=== PATIENT | female | born 1955 | race Caucasian/White ===

== ENCOUNTER 2016-07-26 15:40 | Inpatient (IN) | payer OTHER ==
[~2016-07-26] VITALS: Ht 165.1 cm; Wt 83.5 kg
[~2016-07-26 15:40] MED LIST: CETI10TA84 PO; FURO-85 PO; GABA-113 PO; HYDR-3126 PO; OBET5TAB PO; ONDA4TAB46 PO; OXYC1TAB3 PO; PRD/1 PO; PROM25TA9 PO; PROP10TA7 PO; SERT50TA PO; SPIR25TA PO; SPR25 PO; TRAZ100T29 PO; URSO300C8 PO; VITA1TAB4 PO; [UNRECOGNIZED DRUG - OTHER] PO
[2016-07-26 15:44] VITALS: Ht 165.1 cm; Wt 83.5 kg
[2016-07-26 17:15] LABS: HEMATOCRIT 35.6 % (37-47); MEAN CELL VOLUME 94.2 fL (80-100); MEAN CORPUSCULAR HEMOGLOBIN 30.4 pg (25-34); MEAN CORPUSCULAR HGB CONC 32.3 g/dl (32-36); MEAN PLATELET VOLUME 10.2 fL (7.4-10.4); PLATELET COUNT 219 K/uL (130-400); RED BLOOD COUNT 3.78 M/uL (4.2-5.4); WHITE BLOOD COUNT 14.27 K/uL (4.8-10.8)
[2016-07-26 17:25] LABS: INR 1.2 (0.9-1.1); PROTHROMBIN TIME (PATIENT) 12.8 SECONDS (9.0-12.0)
[2016-07-26] MEDS ORDERED: NURSING VERBAL MED ORDER ONE (17:30)
[2016-07-26 17:32] LABS: BUN/CREATININE RATIO 19.8 (10-20); CALCIUM 8.2 mg/dl (8.5-10.1); CREATININE 1.3 mg/dl (0.60-1.20); POTASSIUM 3.3 mmol/L (3.5-5.1)
[2016-07-26 17:35] LABS: ALB/GLOB RATIO 0.6 (0.9-2)
[2016-07-26 17:37] LABS: BASO % 0.2 %; BASO ABS # 0.03 K/uL (0-0.2); COMPLETE YES; EOS % 0.9 %; IG% 0.4 %; LYMPH % 8.7 %; LYMPH ABS # 1.24 K/uL (1.2-3.4); NEUT % 79.8 %
[2016-07-26] MEDS ORDERED: OXYCODONE HCL IR 5 MG TAB (IMMEDIATE RELEASE) PO STA (17:43)
--- NOTE | 2016-07-26 17:51 | DIAGNOSTIC IMAGING REPORT ---
CT RIGHT SHOULDER NO CONTRAST CT DOSE: 272.30 mGy.cm CLINICAL HISTORY: Right proximal humeral fracture TECHNIQUE: Helical images were acquired in the transverse plane. Sagittal and coronal reformatted images were acquired COMPARISON STUDY: Outside conventional radiograph dated 07/26/2016 FINDINGS: There is moderate ascites present within the upper abdomen. There are right middle lobe and right lower lobe airspace opacities with air bronchograms, likely atelectatic. There are old healed right-sided rib fractures. There is an acute fracture of the right humeral head and neck. The head fracture extends through the greater tuberosity. The humeral neck is medially displaced x 1 cm., and anterior displaced x 6 mm. There is no dislocation. There is a small joint effusion. IMPRESSION: 1. Acute fracture of the proximal right humeral head and neck. There is a 1 cm maximal displacement. There is no dislocation. 2. Ascites 3. Right middle lobe and right lower lobe airspace opacities with air bronchograms, likely atelectatic. Electronically signed by: Yusef Sotelo M.D. 07/26/2016 5:50 PM Dictated Date/Time: 07/26/2016 5:45 PM
[2016-07-26] MEDS ORDERED: MoRPHine SULFATE 2 MG/ML CARP IV PRN (18:00)
[2016-07-26] MEDS ORDERED: ONDANSETRON INJ 2 MG/ML 2 ML VIAL IV PRN (18:00)
--- NOTE | 2016-07-26 18:10 | EMERGENCY ROOM VISIT NOTE ---
History Report prepared by Laney: Diann Acosta Under the Supervision of: Dr. Francesca Field D.O. First contact with patient: 16:06 Chief Complaint: SHOULDER PAIN Stated Complaint: BROKEN RT SHOULDER History of Present Illness The patient is a 60 year old female who presents to the Emergency Room with complaints of persistent right shoulder pain starting 0830 this morning. The patient fell after she got her foot caught in her pants. She felt fine before falling. She was not feeling woozy or close to losing consciousness. She fell onto her right side. She heard a crack. She went to see her doctor and had X- rays taken which revealed a broken right shoulder. She denies any head injury, LOC, neck pain, or arm pain. She denies any prior injuries to her right arm. The patient notes she has fallen 7 times recently after starting a new medication. Her left wrist is currently in a cast and she is going to surgery tomorrow. She has a history of cirrhosis and osteoarthritis. Source of History: patient Onset: 0830 this morning Position: shoulder (right) Quality: other (pain, broken) Timing: other (persistent) Associated Symptoms: No LOC, No neck pain Note: Pt denies head injury, arm pain. Review of Systems See HPI for pertinent positives & negatives. A total of 10 systems reviewed and were otherwise negative. Past Medical & Surgical Medical Problems: (1) Cirrhosis (2) Osteoarthritis Family History No pertinent family history stated. Social History Smoking Status: Current Every Day Smoker Occupation Status: disabled Current/Historical Medications Scheduled Cetirizine (Zyrtec), 10 MG PO PRN Furosemide (Lasix), 100 MG PO QAM Gabapentin (Neurontin), 300 MG PO TID Hydroxyzine Hcl (Atarax), 50 MG PO HS Obeticholic Acid (Ocaliva), 5 MG PO TUESDAY Prednisone (Prednisone), 1 MG PO QAM Propranolol (Inderal), 10 MG PO QAM Sertraline (Zoloft), 50 MG PO QAM Spironolactone (Aldactone), 75 MG PO QAM Trazodone Hcl (Trazodone), 100 MG PO HS Ursodiol (Ursodiol), 600 MG PO BID Scheduled PRN Ondansetron Hcl (Zofran), 8 MG PO SL PRN for Nausea Oxycodone Ir (Roxicodone Ir), 5 MG PO Q4H PRN for Severe Pain Promethazine Hcl (Phenergan), 25 MG PO Q4H PRN for Nausea Allergies Coded Allergies: Budesonide (Verified Allergy, Intermediate, FACIAL SWELLING, 07/26/16) PER RECORDS Mycophenolate (Verified Allergy, Intermediate, FACIAL SWELLING, 07/26/16) PER RECORDS Latex (Verified Allergy, Mild, RASH-CONTACT, 07/26/16) Acetaminophen (Unverified Adverse Reaction, Unknown, "LIVER DISEASE", 07/26) PER RECORDS Pseudoephedrine (Verified Adverse Reaction, Unknown, TACHYCARDIA, 07/26/16) PER RECORDS Physical Exam Vital Signs Date Time Temp Pulse Resp B/P (MAP) Pulse Ox O2 Delivery O2 Flow Rate FiO2 07/26/16 17:24 66 16 112/54 90 Room Air 07/26/16 15:44 36.7 60 20 106/68 93 Room Air Physical Exam GENERAL: alert, well appearing, well nourished, no distress, non-toxic EYE EXAM: mild scleral icterus, PERRL and EOM's grossly intact OROPHARYNX: no exudate, no erythema, lips, buccal mucosa, and tongue normal and mucous membranes are moist NECK: supple, no nuchal rigidity, no adenopathy, non-tender LUNGS: Lung sounds slightly decreased, no wheezes, rhonchi, or rales. Normal chest wall mechanics HEART: no murmurs, S1 normal and S2 normal ABDOMEN: abdomen mildly distended, non-tender, normo-active bowel sounds, no masses, no rebound or guarding. BACK: Back is symmetrical on inspection and there is no deformity, no midline tenderness, no CVA tenderness. SKIN: no rashes and no bruising UPPER EXTREMITIES: Left arm in short arm case, RUE in sling. Normal sensation, normal capillary refill in bilateral upper extremities. LOWER EXTREMITIES: No pitting edema. NEURO EXAM: Normal sensorium, cranial nerves II-XII grossly intact, normal speech, no gross weakness of arms, no gross weakness of legs. Medical Decision & Procedures ER Provider Diagnostic Interpretation: Radiology results have been interpreted by the radiologist and reviewed by me. CT RIGHT SHOULDER NO CONTRAST CT DOSE: 272.30 mGy.cm CLINICAL HISTORY: Right proximal humeral fracture TECHNIQUE: Helical images were acquired in the transverse plane. Sagittal and coronal reformatted images were acquired COMPARISON STUDY: Outside conventional radiograph dated 07/26/2016 FINDINGS: There is moderate ascites present within the upper abdomen. There are right middle lobe and right lower lobe airspace opacities with air bronchograms, likely atelectatic. There are old healed right-sided rib fractures. There is an acute fracture of the right humeral head and neck. The head fracture extends through the greater tuberosity. The humeral neck is medially displaced x 1 cm., and anterior displaced x 6 mm. There is no dislocation. There is a small joint effusion. IMPRESSION: 1. Acute fracture of the proximal right humeral head and neck. There is a 1 cm maximal displacement. There is no dislocation. 2. Ascites 3. Right middle lobe and right lower lobe airspace opacities with air bronchograms, likely atelectatic. Electronically signed by: Yusef Sotelo M.D. 07/26/2016 5:50 PM Dictated Date/Time: 07/26/2016 5:45 PM Laboratory Results Test 07/26/16 17:00 Prothrombin Time 12.8 SECONDS (9.0-12.0) Prothromb Time International Ratio 1.2 (0.9-1.1) Total Bilirubin 3.4 mg/dl (0.2-1) Aspartate Amino Transf (AST/SGOT) 53 U/L (15-37) Alanine Aminotransferase (ALT/SGPT) 29 U/L (12-78) Alkaline Phosphatase 393 U/L (45-117) Total Protein 5.9 gm/dl (6.4-8.2) Albumin 2.2 gm/dl (3.4-5.0) Globulin 3.7 gm/dl (2.5-4.0) Albumin/Globulin Ratio 0.6 (0.9-2) Lipase 125 U/L (73-393) Laboratory results per my review. Medications Administered ECG Indication: other (fall) Rate (beats per minute): 66 Rhythm: sinus rhythm Findings: Q waves (V1, V2), no acute ischemic change, other (normal axis, normal intervals, low voltage throughout) ED Course 1608: The patient was evaluated in room C5. A complete history and physical exam was performed. 1709: I discussed the patient's case with Dr. Fontenot, [facility]. He requests a CT of the right humerus. He will evaluate the patient for further management. 1743: Oxycodone HCl 5 mg PO. 1800: Upon reevaluation, the patient is doing well. I discussed the findings and the treatment plan with the patient. She expresses agreement and understanding. She will be evaluated for further management. Medical Decision Differential diagnosis: Etiologies such as fracture, dislocation, neurovascular compromise, compartment syndrome, soft tissue injury, as well as others were entertained. Medication Reconciliation: I attest that I have personally reviewed the patient' s current medication list. Blood pressure screening: Patient was found to have normal blood pressure on screening and does not require follow-up. Pt with known left wrist fx scheduled for surgery tomorrow when she fell again suffering a right humerus fx noted on outpt xray after presenting to her PCP. Pt now with significant difficulty performing ADL's and limited mobility. Pt with underlying other chronic comorbidities. Ortho to admit primarily, requested CT right humerus, will consult medicine for additional help in mgmt of comorbidities. Pt denies any other pain or trauma, doubt additional occult traumatic injury. Labs stable compared to prior. Consults Time Called: 1630 Consulting Physician: Dr. Fontenot, [facility] Returned Call: 1709 I discussed the patient's case with him. He requests a CT of the right humerus. He will evaluate the patient for further management. Impression Primary Impression: Displaced fracture of proximal end of right humerus Additional Impression: Fall Scribe Attestation The scribe's documentation has been prepared under my direction and personally reviewed by me in its entirety. I confirm that the note above accurately reflects all work, treatment, procedures, and medical decision making performed by me. Departure Information Dispostion Being Evaluated By Surgeon Referrals Seth Witt D.O. (PCP) Patient Instructions My [facility] Problem Qualifiers Additional Impression: Fall Encounter type: initial encounter Qualified Codes: W19.XXXA - Unspecified fall, initial encounter
[2016-07-26 18:30] VITALS: BP 119/73; PULSE 67; TEMP 37; O2SAT 90
[2016-07-26] MEDS ORDERED: POTASSIUM CHLORIDE 20 MEQ TABCR PO STA (19:22)
[2016-07-26] MEDS: URSODIOL 300 MG CAP PO SCH (19:53)
[2016-07-26] MEDS ORDERED: ALBUT/IPRATROP 3MG/0.5MG NEB 3 ML VIAL INH ONE (20:30)
[2016-07-26] MEDS ORDERED: ALBUT/IPRATROP 3MG/0.5MG NEB 3 ML VIAL INH PRN (20:30)
[2016-07-26] MEDS ORDERED: hydrOXYzine HCL 25 MG TAB PO SCH (21:00)
[2016-07-26] MEDS ORDERED: hydrOXYzine HCL 25 MG TAB PO PRN (21:00)
[2016-07-26 21:03] VITALS: PULSE 12; O2SAT 96
[2016-07-26] MEDS: GUAIFENESIN 600 MG TABCR PO SCH (21:16)
[2016-07-26] MEDS: GABAPENTIN 300 MG CAP PO SCH (21:16)
[2016-07-26] MEDS: TRAZODONE HCL 100 MG TAB PO SCH (21:16)
[2016-07-26 22:55] VITALS: BP 101/56; PULSE 77; TEMP 36.9; O2SAT 89
[2016-07-26 22:59] VITALS: O2SAT 94
[2016-07-26] MEDS ORDERED: MAGNESIUM SULFATE 1GM / D5W 1 GM in PREMIXED IN D5W 100 ML IV ONE (23:00)
[2016-07-27] VITALS (11 sets, daily range): BP systolic 95–121; BP diastolic 64–95; PULSE 68–78; TEMP 36.8–37.1; O2SAT 92–97
[2016-07-27] MEDS: OXYCODONE HCL IR 5 MG TAB (IMMEDIATE RELEASE) PO PRN ×3 (05:05→23:39)
[2016-07-27] MEDS ORDERED: CEFAZOLIN 2000 MG/60 ML D5W IV SCH (06:00)
[2016-07-27 06:04] LABS: BASO % 0.2 %; BASO ABS # 0.03 K/uL (0-0.2); COMPLETE YES; EOS % 1.3 %; HEMATOCRIT 35.8 % (37-47); IG% 0.7 %; LYMPH % 9.5 %; LYMPH ABS # 1.41 K/uL (1.2-3.4); MEAN CORPUSCULAR HEMOGLOBIN 29.8 pg (25-34); MEAN PLATELET VOLUME 10.3 fL (7.4-10.4); MONO % 11.1 %; NEUT % 77.2 %; PLATELET COUNT 220 K/uL (130-400); RED BLOOD COUNT 3.73 M/uL (4.2-5.4); WHITE BLOOD COUNT 14.84 K/uL (4.8-10.8)
--- NOTE | 2016-07-27 06:20 | HISTORY & PHYSICAL EXAMINATION ---
DATE OF ADMISSION: PRIMARY CARE DOCTOR: Dr. Witt. Patient seen at the request of Dr. Fontenot for preop eval and medical management. Patient currently admitted under Orthopedic service for right humeral fracture as well as left radial fracture secondary to mechanical falls. HISTORY OF PRESENT ILLNESS: History is obtained from the patient and records. 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 Px was found to have a L radial fracture. Elective surgery scheduled by [facility]. Cough productive of clear sputum the last few days. No cp. Initially w/ sob sx. Denies aspiration. Outpx CXR showed small right pleural effusion with atelectasis. Old L sided rib fxs (07/22) Cough improving. Today, the patient had a mechanical fall at home causing achy right shoulder pain. Outpx Xrays showed R humeral fx. Px sent to the to the ER. MEDICAL HISTORY: As above. 2D echo from December 2015 showed no pulmonary hypertension, EF 55%, mo pericardial effusion. Normal myocardial perfusion stress imaging (12/2015) noted in preparation for possible liver transplant. Patient is currently not on the liver transplant list because of a low MELD score as per px. SURGERIES: Tonsillectomy, tubal ligation, gynecologic procedures, left shoulder surgery, cataract surgery. HOME MEDICATIONS: Include, Zyrtec, Lasix, Neurontin, Atarax, Zofran, oxycodone, prednisone, Phenergan and Inderal, Zoloft, Aldactone, trazodone, ursodiol. ALLERGIES: TYLENOL, PSEUDOEPHEDRINE, BUDESONIDE, LATEX. FAMILY HISTORY: Cirrhosis. PERSONAL AND SOCIAL HISTORY: Nonsmoker, no chronic intake of alcoholic beverages. 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 REVIEW OF SYSTEMS: As per HPI, all other ROS negative. FUNCTIONAL HISTORY: Able to do house work w/ chest pain, shortness of breath. PHYSICAL EXAMINATION: VITAL SIGNS: Blood pressure noted to be 112/60, pulse rate 90, RR 16, temperature 36.7, sats 96 on room air. GENERAL: Noted to be slightly uncomfortable, no respiratory distress. SKIN: Pallor. HEENT: Pale palpebral conjunctivae. Dry mucosa. NECK: Short neck. LUNGS: Decreased breath sounds. HEART: Regular rate and rhythm. ABDOMEN: Some distention, no tenderness. EXTREMITIES: No edema. Sling on the right upper extremity and wrap on the left forearm. NEUROLOGIC: No gross focality. LABORATORY DATA: Hemoglobin was noted to be 11.5, hematocrit 35.6, white blood cell 14, platelets 219. Sodium 140, potassium 3.8, chloride 107, CO2 28, BUN 26, creatinine 1.3, glucose 90, mag 1.7. AST 50, ALT 29 IMAGING DATA: Chest x-ray as per my interpretation, elevated right hemidiaphragm, atelectasis. EKG as per my interpretation : rate 65, normal sinus rhythm, diffuse T-wave flattening. Low voltage, PRWP, PVCs ASSESSMENT : 1. Right humeral fracture, left radial fracture secondary to recurrent mechanical falls ambulatory dysfunction. 2. History of primary biliary cirrhosis. hx portal HTN on BB no overt decompensation. px no longer a transplant candidate 3. Chronic constrictive pericarditis, stable on chronic steroid therapy. EF=55-60%, no pericardial effusion (TTE 2016) 4. leukocytosis poss 2 to chronic steroid tx 5. Hypokalemia secondary to diuretic therapy. 6. CRI, crea at baseline 7. Chronic anemia 2 to CKD, hemoglobin at baseline. 8. viral bronchitis illness over the weekend improving as per px RECOMMENDATIONS: No medical contraindication to contemplated procedure. Px is low to moderate risk for cardiac complications for contemplated Ortho procedure. Replace electrolytes. Continue home diuretic therapy postop. Conservative management for viral bronchitis PT, OT eval. Fall precautions DVT prophylaxis, SCDs as per Orthopedic orders on admission. Thank you very much for your consultation. Dr. Manriquez will follow the patient's progress. [place]
[2016-07-27 06:37] LABS: BUN/CREATININE RATIO 21.5 (10-20); CALCIUM 8.4 mg/dl (8.5-10.1); CREATININE 1.3 mg/dl (0.60-1.20); MAGNESIUM 2.1 mg/dl (1.8-2.4); POTASSIUM 3.7 mmol/L (3.5-5.1)
--- NOTE | 2016-07-27 06:40 | DIAGNOSTIC IMAGING REPORT ---
CHEST ONE VIEW PORTABLE CLINICAL HISTORY: low o2 hypoxia COMPARISON STUDY: 07/26/2016 FINDINGS: Mild right basilar atelectatic change. Potential developing infiltrate left base. Right shoulder fracture produces described. Postoperative changes left shoulder. IMPRESSION: Developing parenchymal infiltrate left base. Mild right basilar atelectasis Electronically signed by: Sandeep Campbell M.D. 07/27/2016 6:38 AM Dictated Date/Time: 07/27/2016 6:38 AM
[2016-07-27] MEDS: PROPRANOLOL HCL 10 MG TAB PO SCH (07:10)
[2016-07-27] MEDS ORDERED: HYDROCORTISONE IV 50 MG in SYRINGE 0 ML IV STA (08:15)
[2016-07-27] MEDS: URSODIOL 300 MG CAP PO SCH ×2 (08:30→17:31)
--- NOTE | 2016-07-27 08:33 | Progress Note ---
Medicine Progress Note Date & Time of Visit: Jul 27, 2016 at 08:23. Subjective patient seen sitting up in bed, at bedside alert, appears comfortable overall has intermittent pain on the right shoulder no cough, shortness of breath no chest pain, dizziness, nausea denies other symptoms very eager to have surgery done as soon as possible Objective Last 8 Hrs Date Time Temp Pulse Resp B/P (MAP) Pulse Ox O2 Delivery O2 Flow Rate FiO2 07/27/16 07:47 93 Nasal Cannula 2.0 07/27/16 07:36 37.1 74 18 98/72 (81) 93 Nasal Cannula 2.0 07/27/16 07:09 36.9 71 18 95/64 (74) 93 Nasal Cannula 2.0 07/27/16 07:05 Room Air Physical Exam: General- oriented x 3 , not in distress, speaks in sentences with no effort Head- atraumatic Eyes- EOMI, anicteric ENT- oropharynx clear Neck- supple, no JVD Lungs- mild rales left base, none on the right, no wheezing Heart- regular rhythm; no murmur, normal rate Abdomen- normal bowel sounds, soft, nontender Extremities- (+) right arm with sling in place, can move all fingers; no pretibial edema, no calf tenderness Neuro- alert, oriented x 3; no gross focal deficits Skin- warm & dry Laboratory Results: Last 24 Hours Test 07/26/16 17:00 07/27/16 05:50 White Blood Count 14.27 K/uL 14.84 K/uL Red Blood Count 3.78 M/uL 3.73 M/uL Hemoglobin 11.5 g/dL 11.1 g/dL Hematocrit 35.6 % 35.8 % Mean Corpuscular Volume 94.2 fL 96.0 fL Mean Corpuscular Hemoglobin 30.4 pg 29.8 pg Mean Corpuscular Hemoglobin Concent 32.3 g/dl 31.0 g/dl Platelet Count 219 K/uL 220 K/uL Mean Platelet Volume 10.2 fL 10.3 fL Neutrophils (%) (Auto) 79.8 % 77.2 % Lymphocytes (%) (Auto) 8.7 % 9.5 % Monocytes (%) (Auto) 10.0 % 11.1 % Eosinophils (%) (Auto) 0.9 % 1.3 % Basophils (%) (Auto) 0.2 % 0.2 % Neutrophils # (Auto) 11.39 K/uL 11.47 K/uL Lymphocytes # (Auto) 1.24 K/uL 1.41 K/uL Monocytes # (Auto) 1.43 K/uL 1.64 K/uL Eosinophils # (Auto) 0.13 K/uL 0.19 K/uL Basophils # (Auto) 0.03 K/uL 0.03 K/uL RDW Standard Deviation 53.3 fL 54.6 fL RDW Coefficient of Variation 15.5 % 15.6 % Immature Granulocyte % (Auto) 0.4 % 0.7 % Immature Granulocyte # (Auto) 0.05 K/uL 0.10 K/uL Prothrombin Time 12.8 SECONDS Prothromb Time International Ratio 1.2 Sodium Level 142 mmol/L 142 mmol/L Potassium Level 3.3 mmol/L 3.7 mmol/L Chloride Level 107 mmol/L 108 mmol/L Carbon Dioxide Level 28 mmol/L 25 mmol/L Anion Gap 7.0 mmol/L 9.0 mmol/L Blood Urea Nitrogen 26 mg/dl 28 mg/dl Creatinine 1.30 mg/dl 1.30 mg/dl Est Creatinine Clear Calc Drug Dose 49.3 ml/min 21.8 ml/min Estimated GFR () 52.4 52.4 Estimated GFR (Non- 45.2 45.2 BUN/Creatinine Ratio 19.8 21.5 Random Glucose 90 mg/dl 97 mg/dl Calcium Level 8.2 mg/dl 8.4 mg/dl Magnesium Level 1.7 mg/dl 2.1 mg/dl Total Bilirubin 3.4 mg/dl Aspartate Amino Transf (AST/SGOT) 53 U/L Alanine Aminotransferase (ALT/SGPT) 29 U/L Alkaline Phosphatase 393 U/L Total Protein 5.9 gm/dl Albumin 2.2 gm/dl Globulin 3.7 gm/dl Albumin/Globulin Ratio 0.6 Lipase 125 U/L Assessment & Plan 60 year old female with history of Primary Biliary Cirrhosis, Chronic Constrictive Pericarditis, CKD 3 presenting with right shoulder fracture. 1. Right humeral fracture, left radial fracture secondary to recurrent mechanical fall ambulatory dysfunction. - for planned orthopedic surgery today - patient on chronic prednisone therapy for at least 5 years as per patient will add Hydrocortisone 50mg IV this morning, then 25mg IV q8h x 24 hours, then resume usual Prednisone 1mg daily - otherwise, no medical contraindication for ortho surgery today 2. History of primary biliary cirrhosis px no longer a transplant candidate - compensated from liver standpoint - on Ocaliva every Tuesday - hold Lasix + Aldactone for now to prevent dehydration 3. Chronic constrictive pericarditis, stable on chronic steroid therapy. EF=55-60%, no pericardial effusion (TTE 2016) - management of steroids as per #1 4. leukocytosis poss 2 to chronic steroid tx -afebrile patient states cough has improved significantly -cxr noted -on Cefazolin encouraged Incentive Spirometry - monitor 5. Hypokalemia secondary to diuretic therapy. - resolved - hold diuretics for now 6. CRI, crea at baseline 7. Chronic anemia 2 to CKD, hemoglobin at baseline. 8. Hypertension - on Propranolol Thank you for this consultation. We will follow the patient with you during their hospital stay. You can reach a member of the [facility] Hospitalist Team 30/08 via pager @ . Current Inpatient Medications: Current Inpatient Medications Medications (Trade) Dose Ordered Sig/Michael Route Start Time Stop Time Status Last Admin Dose Admin Oxycodone HCl (Roxicodone Immediate Rel Tab) `1-2 tabs for pain 1 tab ... Q4H PRN PO 07/26/16 18:00 08/09/16 17:59 07/27/16 05:05 5 MG Morphine Sulfate (MoRPHine SULFATE INJ) 2 mg Q2H PRN IV 07/26/16 18:00 08/09/16 17:59 Ondansetron HCl (Zofran Inj) 4 mg Q8H PRN IV 07/26/16 18:00 08/25/16 17:59 Cefazolin Sodium 60 ml @ 100 mls/hr PREOP IV 07/27/16 06:00 07/27/16 18:00 Prednisone (PredniSONE TAB) 1 mg QAM PO 07/27/16 09:00 08/26/16 08:59 Sertraline HCl (Zoloft Tab) 50 mg QAM PO 07/27/16 09:00 08/26/16 08:59 Trazodone HCl (Desyrel Tab) 100 mg HS PO 07/26/16 21:00 08/25/16 20:59 07/26/16 21:16 100 MG Gabapentin (Neurontin Cap) 300 mg TID PO 07/26/16 21:00 08/25/16 20:59 07/26/16 21:16 300 MG Ursodiol (Actigall Cap) 600 mg BIDM PO 07/26/16 19:02 08/25/16 19:01 07/26/16 19:53 600 MG Propranolol HCl (Inderal Tab) 10 mg QAM PO 07/27/16 09:00 08/26/16 08:59 Cetirizine HCl (zyrTEC TAB) 10 mg DAILY PRN PO 07/26/16 19:15 08/25/16 19:14 Miscellaneous Information (Order Awaiting Action) 1 ea QS N/A 07/27/16 00:00 08/26/16 00:00 Hydroxyzine HCl (Vistaril Tab) 50 mg HS PRN PO 07/26/16 21:00 08/25/16 20:59 Albuterol/ Ipratropium (Duoneb) 3 ml Q2H PRN INH 07/26/16 20:30 08/25/16 20:29 Guaifenesin (Mucinex Contr Rel Tab) 600 mg Q12 PO 07/26/16 21:00 08/25/16 20:59 07/26/16 21:16 600 MG Hydrocortisone Sodium Succinate 25 mg/Syringe 0.5 ml @ 4 mls/min Q8H IV 07/27/16 16:00 07/28/16 08:01
[2016-07-27] MEDS ORDERED: D5NSS + 20MEQ KCL 1,000 ML IV SCH (09:00)
[2016-07-27] MEDS ORDERED: FUROSEMIDE PO SCH ×2 (09:00)
[2016-07-27] MEDS ORDERED: SPIRONOLACTONE 25 MG TAB PO SCH (09:00)
[2016-07-27] MEDS: LEVALBUTEROL 1.25MG/0.5ML NEB INH SCH ×3 (10:07→19:13)
--- NOTE | 2016-07-27 10:48 | DIAGNOSTIC IMAGING REPORT ---
CHEST CT WITHOUT CONTRAST CT DOSE: 370.80 mGy.cm HISTORY: Dyspnea r/o pneumonia TECHNIQUE: Multiaxial CT images of the chest were performed without contrast. COMPARISON: None. FINDINGS: Mild bibasilar atelectatic and/or infiltrative change bilaterally. Mid and upper lungs are considered clear. No significant hilar or mediastinal adenopathy. Mild mild perihepatic ascites. Shunt in position. IMPRESSION: Mild bibasilar infiltrative and/or atelectatic change. Small amount of perihepatic ascites. Electronically signed by: Sandeep Campbell M.D. 07/27/2016 10:47 AM Dictated Date/Time: 07/27/2016 10:45 AM
[2016-07-27] MEDS: GABAPENTIN 300 MG CAP PO SCH ×3 (10:56→21:24)
[2016-07-27] MEDS: GUAIFENESIN 600 MG TABCR PO SCH ×2 (10:57→21:25)
[2016-07-27] MEDS: SERTRALINE HCL 50 MG TAB PO SCH (10:57)
[2016-07-27] MEDS: LEVOFLOXACIN / D5W 750 MG in PREMIXED IN D5W 150 ML IV SCH (10:59)
--- NOTE | 2016-07-27 12:14 | History and Physical ---
History & Physical Date of Service Jul 27, 2016. History & Physical CHIEF COMPLAINT: left wrist fracture and right proximal humerus fracture HISTORY OF PRESENT ILLNESS: Pat is a 60 year old female who sustained a left distal radius fracture approximately 2 weeks ago while at a yard sale, slipped on a wet tarp. was treated conservatively at first however fracture displaced and was determined her best option was to perform ORIF. She was scheduled to have her surgery today, however yesterday while at home caught her toe in her living room and went down onto her right arm, initially went to PCP office and xrays demonstrated a right proximal humerus fracture. she was then referred to the emergency room and admitted for planned ORIF today by Dr Fontenot. Her Past medical history is significant for primary biliary cirrhosis, chronic constrictive pericarditis, hypertension, chronic anemia PAST MEDICAL HISTORY: As mentioned above in HPI SURGERIES: Tonsillectomy, tubal ligation, left shoulder surgery, cataract surgery. HOME MEDICATIONS: Include, Zyrtec, Lasix, Neurontin, Atarax, Zofran, oxycodone, prednisone, Phenergan and Inderal, Zoloft, Aldactone, trazodone, ursodiol. ALLERGIES: TYLENOL, PSEUDOEPHEDRINE, BUDESONIDE, LATEX. SOCIAL HISTORY: Nonsmoker, no chronic intake of alcoholic beverages. Retired REVIEW OF SYSTEMS: As per HPI, others ROS negative. PHYSICAL EXAMINATION: Last Vital Signs Documentation Date Time Temp Pulse Resp B/P (MAP) Pulse Ox O2 Delivery O2 Flow Rate FiO2 07/27/16 10:07 72 16 92 Nasal Cannula 2.0 07/27/16 07:36 37.1 98/72 (81) GENERAL: alert and oriented x 3, No acute distress HEENT: normocephalic atraumatic LUNGS: Decreased breath sounds. HEART: Regular rate and rhythm, resting pulse 72 beats per minute ABDOMEN: Soft non-tender. EXTREMITIES: Right Upper extremity, tenderness anterior shoulder joint extending into the proximal humerus region. ecchymosis present. NVDI, radial median, ulnar nerves intact. left extremity currently in a short arm cast, NVDI. no signs of skin break down or irritation. Test 07/26/16 17:00 07/27/16 05:50 White Blood Count 14.27 K/uL 14.84 K/uL Red Blood Count 3.78 M/uL 3.73 M/uL Hemoglobin 11.5 g/dL 11.1 g/dL Hematocrit 35.6 % 35.8 % Mean Corpuscular Volume 94.2 fL 96.0 fL Mean Corpuscular Hemoglobin 30.4 pg 29.8 pg Mean Corpuscular Hemoglobin Concent 32.3 g/dl 31.0 g/dl Platelet Count 219 K/uL 220 K/uL Mean Platelet Volume 10.2 fL 10.3 fL Neutrophils (%) (Auto) 79.8 % 77.2 % Lymphocytes (%) (Auto) 8.7 % 9.5 % Monocytes (%) (Auto) 10.0 % 11.1 % Eosinophils (%) (Auto) 0.9 % 1.3 % Basophils (%) (Auto) 0.2 % 0.2 % Neutrophils # (Auto) 11.39 K/uL 11.47 K/uL Lymphocytes # (Auto) 1.24 K/uL 1.41 K/uL Monocytes # (Auto) 1.43 K/uL 1.64 K/uL Eosinophils # (Auto) 0.13 K/uL 0.19 K/uL Basophils # (Auto) 0.03 K/uL 0.03 K/uL Prothromb Time International Ratio 1.2 Prothrombin Time 12.[address]: Acute fracture of the proximal right humeral head and neck. There is a 1 cm maximal displacement. There is no dislocation. ASSESSMENT : 1. Right proximal humerus fracture with 1cm displacement, left radial fracture - will require ORIF of both humerus and wrist fractures today by dr Fontenot. will keep NPO for surgery on 07/27/16. Patient has been medically cleared for proposed surgery.
[2016-07-27] MEDS ORDERED: HYDROCORTISONE IV 50 MG in SYRINGE 0 ML IV SCH (15:00)
[2016-07-27] MEDS ORDERED: PERFLUTREN LIPID MICROSPHERE (DEFINITY) IV ONE (15:23)
--- NOTE | 2016-07-27 15:46 | ECHOCARDIOGRAM REPORT ---
*NOTICE TO RECEIVING LIBERTARIAN AGENCY This information is strictly Confidential and protected under [place] law. [place] law prohibits you from making any further disclosure of this information unless further disclosure is expressly permitted by the written consent of the person to whom it pertains or is authorized by law. A general authorization for the release of medical or other information is not sufficient for this purpose. Hospital accepts no responsibility if the information is made available to any other person, INCLUDING THE PATIENT. Interpretation Summary * Name: SANTA FARNSWORTH Study Date: 07/27/2016 02:25 PM BP: 98/72 mmHg * Patient Location: C.MSN\S\N377\S\2 HR: 72 * : 1955 (M/d/yyyy) Gender: Female Height: 65 in * Age: 60 yrs Ethnicity: CA Weight: 174 lb * Ordering Physician: Ayden Cummings * Referring Physician: ADELAIDA * Performed By: Saloni Hameed RDCS * * Reason For Study: CHF, RULE OUT R TO L SHUNT * BSA: 1.9 m2 * -- Conclusions -- * The left ventricle is normal in size. * There is normal left ventricular wall thickness. * The left ventricular wall motion is normal. * Left ventricular systolic function is normal. * Ejection Fraction = 60-65%. * The left atrium is mildly dilated. * There is mild tricuspid regurgitation. * Doppler findings do not suggest pulmonary hypertension. * The interatrial septum is intact with no evidence for an atrial septal defect. * Injection of contrast documented no interatrial shunt. Procedure Details * A saline contrast injection was performed to assess for cardiac shunting. * The injection was performed through an intravenous line in the right arm. * The attending nurse who injected the saline contrast was CAMILLE COMBS RN. * A total of 20 cc of agitated saline was given. * A contrast injection of Definity was performed to improve assessment of LV function. * Contrast was injected into an intravenous site in the right arm. * One vial of Definity ultrasound contrast was diluted in normal saline to a total volume of 10 ml. A total of '2' ml of solution was administered during imaging. * Lot # [id number] of Definity utilized for procedure. * Expiration date AUG 24. * The attending nurse who injected the contrast agent was CAMILLE COMBS RN. * A complete two-dimensional transthoracic echocardiogram was performed (2D, M-mode, Doppler and color flow Doppler). Left Ventricle * The left ventricle is normal in size. * There is normal left ventricular wall thickness. * Ejection Fraction = 60-65%. * Left ventricular systolic function is normal. * The left ventricular wall motion is normal. Right Ventricle * The right ventricle is normal in size and function. Atria * The left atrium is mildly dilated. * Right atrial size is normal. * The interatrial septum is intact with no evidence for an atrial septal defect. * Injection of contrast documented no interatrial shunt. Mitral Valve * The mitral valve anatomy is normal. * There is no mitral valve stenosis. * There is trace mitral regurgitation. Tricuspid Valve * The tricuspid valve anatomy is normal. * There is no tricuspid stenosis. * There is mild tricuspid regurgitation. * Doppler findings do not suggest pulmonary hypertension. Aortic Valve * The aortic valve is trileaflet. * No hemodynamically significant valvular aortic stenosis. * No aortic regurgitation is present. Pulmonic Valve * The pulmonic valve is not well visualized. Great Vessels * The aortic root is normal size. Pericardium/Pleural * There is no pericardial effusion. MMode 2D Measurements and Calculations IVSd 0.90 cm IVSs 1.4 cm LVIDd 5.4 cm LVIDs 3.5 cm LVPWd 0.81 cm LVPWs 1.5 cm IVS/LVPW 1.1 FS 36.2 % EDV(Teich) 143.1 ml ESV(Teich) 49.6 ml EF(Teich) 65.4 % EDV(cubed) 160.1 ml ESV(cubed) 41.5 ml EF(cubed) 74.1 % % IVS thick 58.8 % % LVPW thick 82.7 % LV mass(C)d 170.1 grams LV mass(C)dI 91.2 grams/m\S\2 LV mass(C)s 181.1 grams LV mass(C)sI 97.1 grams/m\S\2 SV(Teich) 93.5 ml SI(Teich) 50.2 ml/m\S\2 SV(cubed) 118.6 ml SI(cubed) 63.6 ml/m\S\2 Ao root diam 3.0 cm Ao root area 7.2 cm\S\2 LA dimension 3.9 cm LA/Ao 1.3 Doppler Measurements and Calculations MV E max shorty 85.4 cm/sec MV A max shorty 68.4 cm/sec MV E/A 1.2 MV dec time 0.24 sec Ao V2 max 154.4 cm/sec Ao max PG 9.5 mmHg Ao max PG (full) 3.4 mmHg LV V1 max PG 6.1 mmHg LV V1 max 123.6 cm/sec TR max shorty 258.2 cm/sec
[2016-07-27] MEDS ORDERED: HYDROCORTISONE IV 25 MG in SYRINGE 0 ML IV SCH (16:00)
--- NOTE | 2016-07-27 16:17 | Anesthesiology Progress Note ---
Anesthesia Progress Note Date of Service Jul 27, 2016. Progress Notes The patient is a 60 y/o female with a h/o primary biliary cirrhosis s/p TIPS with portal hypertension, chronic constrictive pericarditis treated with steroids, CKD, Anemia and recurrent pleural effusions scheduled for R proximal humerus and L wrist distal radius fx ORIF with Dr. Fontenot. The patient's fractures were the result of a mechanical fall. She did not hit her head. The patient states that she has had bronchitis that started three weeks ago. She was treated with 2 weeks of antibiotic but continues to have a cough. During her admission she has been saturating 93% on 2L nc. She was using 02 at home in the past intermittently when she developed pleural effusions but had not been requiring it recently. She remains afebrile and denies any shortness of breath with ambulation. On exam she has had rales in her left lung base and wheezing for which she is receiving nebulizer treatments. On my exam, her lungs were clear but diminished at the bases. A CXR was done and showed developing infiltrate in the L base and mild R basilar atelectasis. A CT of the chest was done today and showed mild bibasilar infiltrative and or atelectatic change. I discussed the patient with Dr. Manriquez who has ordered a pulmonary consult to further evaluate the patient's hypoxia and see if the patient's pulmonary status can be optimized prior to surgery. Regarding the patient's cardiac status, she had an echo today showing EF 60- 65% and preserved LV function. She also had a stress test 12/2015 that was negative for ischemia. EKG from this admission showed NSR with PACs, HR 71 . Septal infarct. Prior to admission the patient was able to climb stairs without chests pain or shortness of breath. The patient is tentatively scheduled for surgery tomorrow. Awaiting pulmonary recommendations. The patient has been consented for GA and regional anesthesia.
--- NOTE | 2016-07-27 16:18 | Pulmonary Consultation ---
History General Date of Service: Jul 27, 2016. Stated Complaint: Right Proximal Humerous Fx, Left Distal Radial Fx HPI The patient is a 60 year old female who presents to [facility] with complaints of Right Proximal Humerous Fx, Left Distal Radial Fx. The patient's primary care provider is Seth Witt D.O.. Patient carries a history of constrictive pericarditis, on low dose Prednisone, primary biliary cirrhosis, prior left humeral fracture The patient was being prepared for left radial fracture repair when she fell and suffered a right humeral fracture. Pulmonary called because she has low O2 sat in low 90s/high 80s. Patient states that she had a cold 2 weeks ago and was left with a significant cough, mainly dry, with some clear sputum. Experiences shortness of breath with exertion. Denies chest pain, LE swelling, fever or chills. She sleeps upright with two pillows, cannot elaborate why. She was found 4 days ago to have low O2 sat in the office. She states that normally her O2 sat at home is 92%. She was on home O2 therapy 5 years ago post pericarditis but was weaned off Review of Systems Constitutional: denies: chills, fever, malaise ENT: reports: nasal congestion Cardiovascular: denies: no symptoms Respiratory: reports: cough, shortness of breath, [place] Gastrointestinal: reports: no symptoms Genitourinary - Female: reports: no symptoms Musculoskeletal: reports: as stated in HPI Neurologic: reports: no symptoms Psychiatric: reports: no symptoms Past Medical History Past Medical History: other (Primary biliary cirrhosis s/p TIPS, constrictive pericarditis, anemia, CKD) Past Surgical History: orthopedic surgery (left shoulder repair), tonsillectomy , tubal ligation, other (cataract) Social History Hx Tobacco Use In Past Year?: No Smoking Status: Never Smoker Occupational Status: disabled Allergies Coded Allergies: Budesonide (Verified Allergy, Intermediate, FACIAL SWELLING, 07/26/16) PER RECORDS Mycophenolate (Verified Allergy, Intermediate, FACIAL SWELLING, 07/26/16) PER RECORDS Latex (Verified Allergy, Mild, RASH-CONTACT, 07/26/16) Acetaminophen (Unverified Adverse Reaction, Unknown, "LIVER DISEASE", 07/26) PER RECORDS Pseudoephedrine (Verified Adverse Reaction, Unknown, TACHYCARDIA, 07/26/16) PER RECORDS Current Medications Reported Home Medications Medications Dose Route/Sig Max Daily Dose Days Date Category Zyrtec (Cetirizine HCl) 10 Mg Tab 10 Mg PO PRN 07/23/16 Reported Phenergan (Promethazine HCl) 25 Mg Tab 25 Mg PO Q4H PRN 07/23/16 Reported Atarax (Hydroxyzine Hcl) 50 Mg Tab 50 Mg PO HS 07/23/16 Reported Inderal (Propranolol HCl) 10 Mg Tab 10 Mg PO QAM 07/23/16 Reported Zofran (Ondansetron HCl) 4 Mg Tab 8 Mg PO SL PRN 07/23/16 Reported Ursodiol 300 Mg Cap 600 Mg PO BID 07/23/16 Reported Lasix (Furosemide) 20 Mg Tab 100 Mg PO QAM 07/23/16 Reported Neurontin (Gabapentin) 300 Mg Cap 300 Mg PO TID 07/23/16 Reported Trazodone (Trazodone HCl) 100 Mg Tab 100 Mg PO HS 07/23/16 Reported Ocaliva (Obeticholic Acid) 5 Mg Tab 5 Mg PO Tuesday07/23/16 Reported Roxicodone Ir (Oxycodone HCl) 5 Mg Tab 5 Mg PO Q4H PRN 07/23/16 Reported Aldactone (Spironolactone) 25 Mg Tab 75 Mg PO QAM 07/23/16 Reported Zoloft (Sertraline HCl) 50 Mg Tab 50 Mg PO QAM 07/23/16 Reported Prednisone 1 Mg Tab 1 Mg PO QAM 07/23/16 Reported Physical Physical Exam Vital Signs: Date Time Temp Pulse Resp B/P (MAP) Pulse Ox O2 Delivery O2 Flow Rate FiO2 07/27/16 15:31 36.8 76 20 121/95 (104) 93 Nasal Cannula 2.0 07/27/16 14:20 97 Non-Rebreather 15.0 07/27/16 14:08 97 Non-Rebreather 15.0 07/27/16 10:07 72 16 92 Nasal Cannula 2.0 07/27/16 07:47 93 Nasal Cannula 2.0 07/27/16 07:36 37.1 74 18 98/72 (81) 93 Nasal Cannula 2.0 07/27/16 07:09 36.9 71 18 95/64 (74) 93 Nasal Cannula 2.0 07/27/16 07:05 Nasal Cannula 2.0 07/26/16 22:59 94 Nasal Cannula 2.0 07/26/16 22:55 36.9 77 16 101/56 (71) 89 Room Air 07/26/16 21:03 12 64 96 Room Air 07/26/16 20:00 Room Air 07/26/16 18:30 37.0 67 16 119/73 (88) 90 Room Air 07/26/16 17:24 66 16 112/54 90 Room Air General Appearance: WELL-APPEARING, NO APPARENT DISTRESS Neck: TRACHEA MIDLINE, SUPPLE Respiratory: BREATH SOUNDS NORMAL, CLEAR TO AUSCULTATION, NO RESPIRATORY DISTRESS, NO TENDERNESS Cardiovasular: REGULAR RATE/RHYTHM, NORMAL S1S2 Abdomen: NON TENDER, NO GUARDING Upper Extremities: NO EDEMA, other (left forearm cast, right arm sling) Lower Extremities: NO EDEMA Neuro: ALERT, ORIENTED x 3 Diagnostics Labs Results Past 24 Hours Test 07/26/16 17:00 07/27/16 05:50 Range/Units White Blood Count 14.27 14.84 4.8-10.8 K/uL Red Blood Count 3.78 3.73 4.2-5.4 M/uL Hemoglobin 11.5 11.1 12.0-16.0 g/dL Hematocrit 35.6 35.8 37-47 % Mean Corpuscular Volume 94.2 96.0 80-100 fL Mean Corpuscular Hemoglobin 30.4 29.8 25-34 pg Mean Corpuscular Hemoglobin Concent 32.3 31.0 32-36 g/dl Platelet Count 219 220 130-400 K/uL Mean Platelet Volume 10.2 10.3 7.4-10.4 fL Neutrophils (%) (Auto) 79.8 77.2 % Lymphocytes (%) (Auto) 8.7 9.5 % Monocytes (%) (Auto) 10.0 11.1 % Eosinophils (%) (Auto) 0.9 1.3 % Basophils (%) (Auto) 0.2 0.2 % Neutrophils # (Auto) 11.39 11.47 1.4-6.5 K/uL Lymphocytes # (Auto) 1.24 1.41 1.2-3.4 K/uL Monocytes # (Auto) 1.43 1.64 0.11-0.59 K/uL Eosinophils # (Auto) 0.13 0.19 0-0.5 K/uL Basophils # (Auto) 0.03 0.03 0-0.2 K/uL RDW Standard Deviation 53.3 54.6 36.4-46.3 fL RDW Coefficient of Variation 15.5 15.6 11.5-14.5 % Immature Granulocyte % (Auto) 0.4 0.7 % Immature Granulocyte # (Auto) 0.05 0.10 0.00-0.02 K/uL Prothrombin Time 12.8 9.0-12.0 SECONDS Prothromb Time International Ratio 1.2 0.9-1.1 Sodium Level 142 142 136-145 mmol/L Potassium Level 3.3 3.7 3.5-5.1 mmol/L Chloride Level 107 108 98-107 mmol/L Carbon Dioxide Level 28 25 21-32 mmol/L Anion Gap 7.0 9.0 3-11 mmol/L Blood Urea Nitrogen 26 28 7-18 mg/dl Creatinine 1.30 1.30 0.60-1.20 mg/dl Est Creatinine Clear Calc Drug Dose 49.3 21.8 ml/min Estimated GFR () 52.4 52.4 Estimated GFR (Non- 45.2 45.2 BUN/Creatinine Ratio 19.8 21.5 10-20 Random Glucose 90 97 70-99 mg/dl Calcium Level 8.2 8.4 8.5-10.1 mg/dl Magnesium Level 1.7 2.1 1.8-2.4 mg/dl Total Bilirubin 3.4 0.2-1 mg/dl Aspartate Amino Transf (AST/SGOT) 53 15-37 U/L Alanine Aminotransferase (ALT/SGPT) 29 12-78 U/L Alkaline Phosphatase 393 45-117 U/L Total Protein 5.9 6.4-8.2 gm/dl Albumin 2.2 3.4-5.0 gm/dl Globulin 3.7 2.5-4.0 gm/dl Albumin/Globulin Ratio 0.6 0.9-2 Lipase 125 73-393 U/L 25-Hydroxy Vitamin D Total 33.0 30-100 ng/ml Diagnostic Radiology CT chest without contrast 07/27: FINDINGS: Mild bibasilar atelectatic and/or infiltrative change bilaterally. Mid and upper lungs are considered clear. No significant hilar or mediastinal adenopathy. Mild mild perihepatic ascites. Shunt in position Echo 07/27: * The left ventricle is normal in size. * There is normal left ventricular wall thickness. * The left ventricular wall motion is normal. * Left ventricular systolic function is normal. * Ejection Fraction = 60-65%. * The left atrium is mildly dilated. * There is mild tricuspid regurgitation. * Doppler findings do not suggest pulmonary hypertension. * The interatrial septum is intact with no evidence for an atrial septal defect. * Injection of contrast documented no interatrial shunt. EKG NSR @ 71 bp,. no R wave in V1-V3, no change Impression Assessment and Plan Patient with h/o constrictive pericarditis and PBC needs surgical repair of radial and humeral fractures, found be hypoxic. Chronic respiratory failure - Differential is broad at this stage and possibly multifactorial. Will rule out/in chronic thromboembolic pulmonary disease, obtain VQ scan Echo with bubble study did not reveal a [id number] shunt I reviewed the CT chest, it does not show significant parenchymal disease, has very small atelectatic areas that do not explain the hypoxia Per , she is not very compliant with diuretic therapy. Another important reason for her hypoxia is bibasilar pulmonary shunting secondary to hepato-pulmonary syndrome. We are unable to assess her for orthodeoxia at this time. ABG technically challenging. Place patient on 100% O2 and assess the response in O2 sat If no significant abnormalities are found, may proceed for the procedures, hopefully tomorrow, requiring supplemental O2 post-op DVT prophylaxis Note Comments: 40 minutes
--- NOTE | 2016-07-27 17:40 | DIAGNOSTIC IMAGING REPORT ---
LUNG IMAGING VQ HISTORY: Dyspnea. R/o chronic thromboembolism pulmonary disease TECHNIQUE: Immediately following the inhalation of 32 mCi of technetium 99 M DTPA and the intravenous injection of 5.6 mCi of technetium 99 M MAA, anterior, oblique, posterior, lateral views of the chest performed for the ventilation and perfusion scans. COMPARISON STUDY: Chest CT and chest x-ray 07/27/2016. FINDINGS: The cardiac silhouette is enlarged. There is elevation of the right hemidiaphragm. There are no mismatch defects or segmental defects identified. IMPRESSION: Above findings are consistent with a very low probability scan. Electronically signed by: Zachary Clark M.D. 07/27/2016 5:39 PM Dictated Date/Time: 07/27/2016 5:36 PM
[2016-07-27] MEDS ORDERED: FUROSEMIDE 40 MG TAB PO ONE (19:30)
[2016-07-27] MEDS ORDERED: SPIRONOLACTONE 25 MG TAB PO ONE (19:30)
--- NOTE | 2016-07-27 20:03 | Progress Note ---
Progress Note Date of Service Jul 27, 2016. Progress Note VQ scan shows very low probability for PE. Echo is also benign, without evidence of R-L shunt She is oxygenating adequately for the proposed procedure. Although not completely clear why she has mild hypoxia, most likely it is secondary to liver disease, leading to pulmonary shunting. She may proceed with the orthopaedic surgery from a pulmonary standpoint
[2016-07-27] MEDS: TRAZODONE HCL 100 MG TAB PO SCH (21:25)
[2016-07-27] MEDS: CETIRIZINE HCL 10 MG TAB PO PRN (21:32)
[2016-07-28] VITALS (10 sets, daily range): BP systolic 94–111; BP diastolic 59–74; PULSE 62–86; TEMP 36.4–36.9; O2SAT 92–98
[2016-07-28] MEDS ORDERED: HYDROCORTISONE IV 25 MG in SYRINGE 0 ML IV SCH
[2016-07-28] MEDS: LEVALBUTEROL 1.25MG/0.5ML NEB INH SCH ×5 (01:57→20:18)
[2016-07-28] MEDS ORDERED: CEFAZOLIN 2000 MG/60 ML D5W IV SCH (06:00)
[2016-07-28 08:24] LABS: BASO % 0.1 %; BASO ABS # 0.02 K/uL (0-0.2); COMPLETE YES; HEMATOCRIT 34.4 % (37-47); IG% 0.8 %; LYMPH % 5.6 %; LYMPH ABS # 0.78 K/uL (1.2-3.4); MEAN CELL VOLUME 94.8 fL (80-100); MEAN CORPUSCULAR HEMOGLOBIN 30.9 pg (25-34); MEAN CORPUSCULAR HGB CONC 32.6 g/dl (32-36); MONO % 5.4 %; NEUT % 88.1 %; PLATELET COUNT 138 K/uL (130-400); RED BLOOD COUNT 3.63 M/uL (4.2-5.4); WHITE BLOOD COUNT 13.97 K/uL (4.8-10.8)
[2016-07-28 08:52] LABS: BUN/CREATININE RATIO 20.3 (10-20); CREATININE 1.8 mg/dl (0.60-1.20); POTASSIUM 4.2 mmol/L (3.5-5.1)
[2016-07-28] MEDS: PROPRANOLOL HCL 10 MG TAB PO SCH ×2 (09:00→09:13)
[2016-07-28] MEDS: SERTRALINE HCL 50 MG TAB PO SCH (09:05)
[2016-07-28] MEDS: GABAPENTIN 300 MG CAP PO SCH ×2 (09:05→14:33)
[2016-07-28] MEDS: GUAIFENESIN 600 MG TABCR PO SCH (09:05)
[2016-07-28] MEDS: URSODIOL 300 MG CAP PO SCH ×2 (09:12→17:45)
--- NOTE | 2016-07-28 09:48 | Progress Note ---
Medicine Progress Note Date & Time of Visit: Jul 28, 2016 at 09:40. Subjective seen resting in bed, talking on the phone with friend in good spirits, states she had a good night coughing less, no dyspnea denies chest pain, palpitations, dizziness, nausea pain under control no diarrhea denies other symptoms Objective Last 8 Hrs Date Time Temp Pulse Resp B/P (MAP) Pulse Ox O2 Delivery O2 Flow Rate FiO2 07/28/16 09:09 63 94/64 (74) 07/28/16 08:15 94 Nasal Cannula 2.0 07/28/16 07:30 36.4 62 16 98/60 (73) 94 Nasal Cannula 2.0 07/28/16 07:15 Nasal Cannula 2.0 07/28/16 01:57 74 16 94 Nasal Cannula 2.0 Physical Exam: General- oriented x 3 , not in distress, speaks in sentences with no effort Eyes- anicteric Neck- no JVD Lungs- clear breath sounds bilaterally, no rales/wheezes Heart- regular rhythm; no murmur, normal rate Abdomen- normal bowel sounds, soft, nontender Extremities- (+) right arm with sling in place, can move all fingers; no pretibial edema, no calf tenderness Neuro- alert, oriented x 3; no gross focal deficits Skin- warm & dry Laboratory Results: Last 24 Hours Test 07/28/16 08:05 White Blood Count 13.97 K/uL Red Blood Count 3.63 M/uL Hemoglobin 11.2 g/dL Hematocrit 34.4 % Mean Corpuscular Volume 94.8 fL Mean Corpuscular Hemoglobin 30.9 pg Mean Corpuscular Hemoglobin Concent 32.6 g/dl Platelet Count 138 K/uL Mean Platelet Volume 11.0 fL Neutrophils (%) (Auto) 88.1 % Lymphocytes (%) (Auto) 5.6 % Monocytes (%) (Auto) 5.4 % Eosinophils (%) (Auto) 0.0 % Basophils (%) (Auto) 0.1 % Neutrophils # (Auto) 12.30 K/uL Lymphocytes # (Auto) 0.78 K/uL Monocytes # (Auto) 0.76 K/uL Eosinophils # (Auto) 0.00 K/uL Basophils # (Auto) 0.02 K/uL RDW Standard Deviation 53.0 fL RDW Coefficient of Variation 15.1 % Immature Granulocyte % (Auto) 0.8 % Immature Granulocyte # (Auto) 0.11 K/uL Sodium Level 139 mmol/L Potassium Level 4.2 mmol/L Chloride Level 107 mmol/L Carbon Dioxide Level 21 mmol/L Anion Gap 11.0 mmol/L Blood Urea Nitrogen 37 mg/dl Creatinine 1.80 mg/dl Est Creatinine Clear Calc Drug Dose 35.4 ml/min Estimated GFR () 35.3 Estimated GFR (Non- 30.5 BUN/Creatinine Ratio 20.3 Random Glucose 149 mg/dl Calcium Level 8.0 mg/dl Assessment & Plan 60 year old female with history of Primary Biliary Cirrhosis, 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 Right humeral fracture, left radial fracture secondary to recurrent mechanical fall ambulatory dysfunction. - CT chest: possible bibasilar infiltrates vs. atelectasis VQ scan: low probability for PE Echo: -- Conclusions -- * The left ventricle is normal in size. * There is normal left ventricular wall thickness. * The left ventricular wall motion is normal. * Left ventricular systolic function is normal. * Ejection Fraction = 60-65%. * The left atrium is mildly dilated. * There is mild tricuspid regurgitation. * Doppler findings do not suggest pulmonary hypertension. * The interatrial septum is intact with no evidence for an atrial septal defect. * Injection of contrast documented no interatrial shunt. now saturating 94% on 2 liters NC possible chronic hypoxic respiratory failure, from hepato-pulmonary syndrome continue Levaquin IV for now evaluated by Pulmonary- Dr. Cummings- may proceed with planned ortho procedure - patient on chronic prednisone therapy for at least 5 years as per patient will add Hydrocortisone 50mg IV 1 hour prior to surgery, then 25mg IV q8h x 24 hours, then resume usual Prednisone 1mg daily ACUTE RENAL FAILURE on CKD 3 crea elevated to 1.8 today hold diuretics re-start D5 NSS at 75cc monitor crea avoid nephrotoxins History of primary biliary cirrhosis px no longer a transplant candidate - compensated from liver standpoint - on Ocaliva every Tuesday - hold Lasix + Aldactone for now to prevent dehydration Chronic constrictive pericarditis, stable on chronic steroid therapy. EF=55-60%, no pericardial effusion (TTE 2015) - management of steroids as per #1 Hypokalemia secondary to diuretic therapy. - resolved - hold diuretics for now Chronic anemia 2 to CKD 3, hemoglobin at baseline. Hypertension - on Propranolol Thank you for this consultation. We will follow the patient with you during their hospital stay. You can reach a member of the [facility] Hospitalist Team 30/08 via pager @ [phone]. Current Inpatient Medications: Current Inpatient Medications Medications (Trade) Dose Ordered Sig/Michael Route Start Time Stop Time Status Last Admin Dose Admin Oxycodone HCl (Roxicodone Immediate Rel Tab) `1-2 tabs for pain 1 tab ... Q4H PRN PO 07/26/16 18:00 08/09/16 17:59 07/27/16 23:39 10 MG Morphine Sulfate (MoRPHine SULFATE INJ) 2 mg Q2H PRN IV 07/26/16 18:00 08/09/16 17:59 Ondansetron HCl (Zofran Inj) 4 mg Q8H PRN IV 07/26/16 18:00 08/25/16 17:59 Prednisone (PredniSONE TAB) 1 mg QAM PO 07/27/16 09:00 08/26/16 08:59 07/28/16 09:05 1 MG Sertraline HCl (Zoloft Tab) 50 mg QAM PO 07/27/16 09:00 08/26/16 08:59 07/28/16 09:05 50 MG Trazodone HCl (Desyrel Tab) 100 mg HS PO 07/26/16 21:00 08/25/16 20:59 07/27/16 21:25 100 MG Gabapentin (Neurontin Cap) 300 mg TID PO 07/26/16 21:00 08/25/16 20:59 07/28/16 09:05 300 MG Ursodiol (Actigall Cap) 600 mg BIDM PO 07/26/16 19:02 08/25/16 19:01 07/27/16 17:31 600 MG Propranolol HCl (Inderal Tab) 10 mg QAM PO 07/27/16 09:00 08/26/16 08:59 Cetirizine HCl (zyrTEC TAB) 10 mg DAILY PRN PO 07/26/16 19:15 08/25/16 19:14 07/27/16 21:32 10 MG Miscellaneous Information (Order Awaiting Action) 1 ea QS N/A 07/27/16 00:00 08/26/16 00:00 Hydroxyzine HCl (Vistaril Tab) 50 mg HS PRN PO 07/26/16 21:00 08/25/16 20:59 Albuterol/ Ipratropium (Duoneb) 3 ml Q2H PRN INH 07/26/16 20:30 08/25/16 20:29 Guaifenesin (Mucinex Contr Rel Tab) 600 mg Q12 PO 07/26/16 21:00 08/25/16 20:59 07/28/16 09:05 600 MG Levofloxacin 750 mg/Prmx 150 ml @ 100 mls/hr Q24H IV 07/27/16 11:00 08/03/16 10:59 07/27/16 10:59 100 MLS/HR Levalbuterol (Xopenex 1.25MG/ 0.5ML Neb) 1.25 mg Q6R INH 07/27/16 10:00 08/26/16 09:59 07/28/16 01:57 1.25 MG Cefazolin Sodium 60 ml @ 100 mls/hr PREOP IV 07/28/16 06:00 07/28/16 18:00
--- NOTE | 2016-07-28 10:15 | Orthopedic Progress Note ---
Orthopedic Progress Note Date of Service Jul 28, 2016. Subjective Reports: feeling well Additional Notes: Pt states she had a good night and feels better overall with her breathing etc. No complaints at this time. Denies numbness/tingling in the fingers of either hand. Pain controlled presently. Objective splint C/D/I (LUE), capillary refill less than 2 sec., A&O x3, CMS intact Date Time Temp Pulse Resp B/P (MAP) Pulse Ox O2 Delivery O2 Flow Rate FiO2 07/28/16 09:09 63 94/64 (74) 07/28/16 08:15 94 Nasal Cannula 2.0 07/28/16 07:30 36.4 62 16 98/60 (73) 94 Nasal Cannula 2.0 07/28/16 07:15 Nasal Cannula 2.0 07/28/16 01:57 74 16 94 Nasal Cannula 2.0 07/27/16 23:30 Nasal Cannula 2.0 07/27/16 22:56 36.8 69 17 104/67 (79) 93 Nasal Cannula 2.0 07/27/16 19:59 69 104/64 (77) 07/27/16 19:14 78 18 95 Nasal Cannula 2.0 07/27/16 15:50 68 18 97 Nasal Cannula 2.0 07/27/16 15:31 36.8 76 20 121/95 (104) 93 Nasal Cannula 2.0 07/27/16 15:30 Nasal Cannula 2.0 Non-Rebreather 07/27/16 14:20 97 Non-Rebreather 15.0 07/27/16 14:08 97 Non-Rebreather 15.0 Laboratory Results 24 Hours: Test 07/28/16 08:05 White Blood Count 13.97 K/uL Red Blood Count 3.63 M/uL Hemoglobin 11.2 g/dL Hematocrit 34.4 % Mean Corpuscular Volume 94.8 fL Mean Corpuscular Hemoglobin 30.9 pg Mean Corpuscular Hemoglobin Concent 32.6 g/dl Platelet Count 138 K/uL Mean Platelet Volume 11.0 fL Neutrophils (%) (Auto) 88.1 % Lymphocytes (%) (Auto) 5.6 % Monocytes (%) (Auto) 5.4 % Eosinophils (%) (Auto) 0.0 % Basophils (%) (Auto) 0.1 % Neutrophils # (Auto) 12.30 K/uL Lymphocytes # (Auto) 0.78 K/uL Monocytes # (Auto) 0.76 K/uL Eosinophils # (Auto) 0.00 K/uL Basophils # (Auto) 0.02 K/uL Assessment & Plan Assessment: Left Wrist Fx Right Proximal Humerus Fx h/o primary biliary cirrhosis s/p TIPS with portal hypertension, chronic constrictive pericarditis treated with steroids, CKD, Anemia and recurrent pleural effusions Plan: Patient has been cleared for her procedures by Pulmonary/Medical Services. Planning for OR today. Inhouse Planning Pain Management: Morphine, Oxy IR
[2016-07-28] MEDS: D5W AND NSS 1,000 ML IV SCH ×2 (10:51→22:59)
[2016-07-28] MEDS: LEVOFLOXACIN / D5W 750 MG in PREMIXED IN D5W 150 ML IV SCH (11:04)
--- NOTE | 2016-07-28 12:36 | Clinical Documentation Query ---
CLINICAL DOCUMENTATION QUERY Dr. MCCONNELL, In your clinical opinion is this patient being managed for: ( X ) Acute kidney failure (on CKD stage III) ( ) Other explanation of clinical findings (Please Explain) ( ) Unable to determine (Please Define) ( ) Need to Discuss ( ) Not Agree The medical record reflects the following clinical findings, treatment, and risk factors. Clinical Indicators: 60 yo female presenting to the ER with a fractured R humerus. H/P indicates pt has a baseline Cr of 1.3 which has increased to 1.8. Progress note 07/28 indicates Cr elevated Treatment: hold diuretics, restart IV fluids, monitor Cr, avoid nephrotoxins Risk Factors: made NPO for surgery, diuretic therapy, primary biliary cirrhosis, age, gender, hypotension, dehydration Please clarify and document your clinical opinion in the progress notes and discharge summary. Terms such as "probable", "suspected", "likely", "questionable", "possible", or "still to be ruled out" are acceptable. IF IN AGREEMENT, YOU MUST DOCUMENT ABOVE DIAGNOSTIC STATEMENT IN DAILY PROGRESS NOTES AND DISCHARGE SUMMARY. This document is not part of the patient's record. Thank You, Anni Dawkins, RN [phone]
[2016-07-28] MEDS ORDERED: HYDROCORTISONE IV 50 MG in SYRINGE 0 ML IV SCH (16:00)
--- NOTE | 2016-07-28 17:12 | History & Physical Bridge Note ---
H&P Re-Evaluation Bridge Note: I have examined the patient, reviewed the History & Physical and in the interval since the performance of the History & Physical I have noted the following changes of clinical significance: No changes noted
[2016-07-28] MEDS ORDERED: MIDAZOLAM HCL 1 MG/ML 2ML VIAL ONE (17:28)
[2016-07-28] MEDS ORDERED: FENTANYL CITRATE INJ 50 MCG/1 ML 2 ML VIAL ONE ×2 (17:28→20:02)
[2016-07-28] MEDS ORDERED: DEXAMETHASONE SOD INJ 4 MG/ML VIAL ONE (18:53)
[2016-07-28] MEDS ORDERED: ONDANSETRON INJ 2 MG/ML 2 ML VIAL ONE (18:53)
[2016-07-28] MEDS ORDERED: PROPOFOL IV EMULSION 10 MG/ML 20 ML VIAL IV ONE (18:53)
[2016-07-28] MEDS ORDERED: LIDOCAINE HCL 2% 2 ML VIAL (20MG/ML) ONE (18:53)
[2016-07-28] MEDS ORDERED: CISATRACURIUM BESYLATE IV SOLN 2 MG/ML 10 ML VIAL ONE (18:53)
[2016-07-28] MEDS ORDERED: LARYING-O-JET KIT (LTA) ONE ×2 (18:58)
[2016-07-28] MEDS ORDERED: BUPIVACAINE/EPINEPHRINE 0.25% 1:200,000 30 ML VIAL ONE (19:57)
--- NOTE | 2016-07-28 20:01 | DIAGNOSTIC IMAGING REPORT ---
INTRAOPERATIVE RIGHT HUMERUS 2 VIEWS CLINICAL HISTORY: Fracture status post internal fixation COMPARISON STUDY: 07/27/2016 FINDINGS: 2 fluoroscopic spot images are provided for interpretation. 118 seconds of fluoroscopic time was utilized. There is internal fixation of the recently described proximal humeral fracture with a metallic plate and multiple screws. IMPRESSION: Internally fixated proximal humeral fracture in near normal anatomic alignment Electronically signed by: Yusef Sotelo M.D. 07/28/2016 8:00 PM Dictated Date/Time: 07/28/2016 7:59 PM
[2016-07-28] MEDS ORDERED: NEOSTIGMINE METHYLSULFATE 5 MG/5 ML SYR ONE (21:15)
[2016-07-28] MEDS ORDERED: GLYCOPYRROLATE INJ 0.2 MG/ML VIAL ONE (21:15)
--- NOTE | 2016-07-28 21:25 | [facility] Post Operative Brief Note ---
Immediate Operative Summary Operative Date Jul 28, 2016. Pre-Operative Diagnosis Left distal radiius Fracture Right Proximal Humerus Fracture Post-Operative Diagnosis same + tear long head of biceps tendon Procedure(s) Performed Left Wrist Distal Radius Fracture Open Reduction Internal Fixation; Right Proximal Humerus Open Reduction Internal Fixation, biceps tenodesis right shoulder Surgeon Dr Fontenot Cardiovascular Tech Surgeon(s) Oskar HEREDIA Estimated Blood Loss 100ML Findings above Specimens none Drains 0 Anesthesia geta Complication(s) None Disposition Recovery Room / PACU
--- NOTE | 2016-07-28 21:25 | DIAGNOSTIC IMAGING REPORT ---
INTRAOPERATIVE LEFT WRIST 2 VIEWS CLINICAL HISTORY: Left wrist fracture. Postsurgical study. COMPARISON STUDY: None FINDINGS: There is an internally fixated distal radial fracture. There is a T-shaped metallic plate with multiple screws. The radial articular surface demonstrates a dorsal tilt of 14 degrees. 2 fluoroscopic spot images were acquired. 60 seconds of fluoroscopic time was utilized. IMPRESSION: Internally fixated distal radial fracture. Electronically signed by: Yusef Sotelo M.D. 07/28/2016 9:23 PM Dictated Date/Time: 07/28/2016 9:22 PM
[2016-07-28] MEDS ORDERED: NALOXONE HCL 0.4 MG/1 ML VIAL/CARP IV PRN ×2 (21:30→21:45)
[2016-07-28] MEDS ORDERED: METOCLOPRAMIDE HCL INJ 5 MG/ML 2 ML VIAL IV PRN (21:30)
[2016-07-28] MEDS ORDERED: ALUMINUM/MAGNESIUM SUSP 30 ML UDC PO PRN (21:30)
[2016-07-28] MEDS ORDERED: NO NSAIDS SCH (21:30)
[2016-07-28] MEDS ORDERED: ONDANSETRON INJ 2 MG/ML 2 ML VIAL IV PRN ×2 (21:30→21:45)
[2016-07-28] MEDS ORDERED: HYDROmorphone INJ 2 MG/ML SYR/VIAL ONE (21:44)
[2016-07-28] MEDS ORDERED: LABETALOL HCL IV 5 MG/ML 20ML IV PRN (21:45)
[2016-07-28] MEDS ORDERED: ATROPINE SULFATE 0.1 MG/ML 5ML SYR IV PRN (21:45)
[2016-07-28] MEDS ORDERED: FLUMAZENIL 0.1 MG/1 ML 10 ML VIAL IV PRN (21:45)
[2016-07-28] MEDS ORDERED: HYDROmorphone INJ 1 MG/ML SYR IV PRN (21:45)
[2016-07-28] MEDS ORDERED: PROMETHAZINE HCL INJ 12.5 MG in SODIUM CHLORIDE 0.9% 50ML 50 ML IV PRN (21:45)
--- NOTE | 2016-07-28 22:19 | Anesthesiology Progress Note ---
Anesthesia Post Op Note Date & Time Jul 28, 2016 at 22:19 Vital Signs Pain Intensity: 2 Vital Signs Past 12 Hours Date Time Temp Pulse Resp B/P (MAP) Pulse Ox O2 Delivery O2 Flow Rate FiO2 07/28/16 22:05 71 16 110/63 92 Nasal Cannula 4 07/28/16 21:55 71 16 111/52 94 Mask 10 07/28/16 21:45 70 16 117/57 94 Mask 10 07/28/16 21:35 36.5 71 16 118/61 95 Mask 10 07/28/16 16:45 36.5 18 129/77 (94) 93 Nasal Cannula 2 07/28/16 16:03 Nasal Cannula 2.0 07/28/16 14:56 36.5 66 18 103/59 (74) 92 Nasal Cannula 2.0 07/28/16 14:31 65 16 93 Nasal Cannula 2.0 07/28/16 11:45 72 16 95 Nasal Cannula 2.0 Notes Mental Status: alert / awake / arousable, participated in evaluation Pt Amnestic to Procedure: Yes Nausea / Vomiting: adequately controlled Pain: adequately controlled Airway Patency, RR, SpO2: stable & adequate BP & HR: stable & adequate Hydration State: stable & adequate Anesthetic Complications: no major complications apparent
--- NOTE | 2016-07-28 22:30 | OPERATIVE REPORT ---
DATE OF OPERATION: 07/28/2016 PREOPERATIVE DIAGNOSES: Right proximal humerus displaced fracture and a left distal radius fracture. POSTOPERATIVE DIAGNOSES: Same plus tear of long head of the biceps tendon right shoulder. SURGEON: Dr. Fontenot. BOX WORKER: Huseyin Bermudez PA-C who was necessary for assistance with the procedure with positioning, prepping, draping, retraction and closure. ANESTHESIA: General endotracheal anesthesia. SPECIMENS: None. COMPLICATIONS: None. ESTIMATED BLOOD LOSS: 100 mL. INDICATIONS: The patient is a 60-year-old female who had sustained a fall in the bathroom to outstretched left upper extremity approximately 3 weeks ago. She sustained a moderately displaced distal radius fracture. She was treated with closed reduction and casting. She was followed weekly. Initial follow up x-rays demonstrated acceptable maintenance of her alignment. Her second week x-ray showed increasing displacement to the distal radius no longer acceptable alignment. We elected to proceed with open reduction and internal fixation of the wrist. The day prior to her scheduled wrist surgery she fell out of bed, landing to the other side, sustained a displaced right proximal humerus fracture. There was question as to whether she had developing pneumonia, the day we initially tried to proceed with her surgery. She had additional workup performed including chest CT and other clearance from refrigerator room clerk. Once she was cleared medically, we proceeded with surgery. Risks, benefits, and alternatives of surgery including but not limited to infection, DVT, pain, stiffness, need for urgent surgery, failure to relieve all symptoms, nonunion, damage to blood vessels, damage to nerves, risks of anesthesia discussed with the patient and she wished to proceed. DESCRIPTION OF PROCEDURE: The patient was identified, laterality was confirmed and marked. She received a preoperative antibiotic. She was transferred to the operating room, placed in the supine position, induced with general endotracheal anesthesia. We elected to fix the proximal humerus fracture first. She was elevated to a slight beach chair position and the right shoulder was prepped and draped in the usual sterile manner with ChloraPrep. I made a longitudinal incision lateral to the coracoid, sharply incised through the skin utilizing Bovie electrocautery to achieve hemostasis. Developed the deltopectoral interval, mobilizing the cephalic vein laterally with the deltoid and dissected the conjoined tendon medially and identified the fracture site. The long head of biceps tendon was incarcerated in the fracture site, the diaphyseal fragment was displacing anteriorly, cutting into the long head of biceps. I performed a biceps tenodesis of the biceps tendon to the pectoralis tendon with interrupted #2 Ultrabraid suture and then excised the torn long head of biceps tendon proximally. I then performed cleared interposing soft tissue from the fracture site and performed a provisional reduction and held it with some K wires. I confirmed reduction with fluoroscopy. I then positioned a [employer] precontoured proximal humerus locking plate, placed a non-locking screw in the oblong hole, and adjusted the height of the plate as necessary. Once I was satisfied with the height of the plate, I placed a locking screw proximally and another locking screw distally. I then again confirmed the remaining tendon in good alignment. We had good zoroastrian of alignment and good reduction of the fracture. We then placed the remaining locking screws proximally. She had fairly significantly osteoporotic bone as the screws often would simply fall in through the drill hole. I then placed additional locking screw distally. I confirmed screw lengths and made adjustments to screw length as necessary. The wound was then thoroughly irrigated. The deltopectoral interval was closed with interrupted #1 Ethibond sutures, subcutaneous tissue with interrupted 2-0 Vicryl suture and the skin with maricarmen. Sterile dressing was applied. I then took down the drapes for the proximal humerus, repositioned the patient placing the contralateral arm onto a hand table and then placed a well-padded tourniquet placed on the arm and then performed a new prepping and draping of the left upper extremity. The limb was exsanguinated and tourniquet was inflated. The incision site was anesthetized with 0.25% Marcaine with epinephrine. I made a longitudinal incision centered over the FCR tendon, sharply incising to the skin, utilizing Bovie electrocautery to achieve hemostasis. Incised through the FCR peritenon, mobilized this ulnarly to protect the median nerve. Mobilized FPL and then incised through pronator quadratus. There was interposing soft tissue into the fracture site as well as some early callus starting to form that was cleared with a combination of a freer as well as a rongeur. I then reduced the fracture. We elected to use a [employer] DVR volar locking plate. This was a narrow width standard length Cross lock plate. Placed a screw in the oblong hole and adjusted the height as necessary and the rotation of the plate as necessary and then secured it down to bone. We held the fracture reduced and placed 2 locking screws distally. We confirmed we are maintained good alignment and reduction. I then placed the remaining locking screws proximally and the remaining locking screws distally. I confirmed screw length on live fluoroscopy views. No screws were intraarticular, we had good length to our screws. Wound was thoroughly irrigated. Subcutaneous tissue was closed with interrupted 3-0 Vicryl suture, skin with running 3-0 nylon in a locking baseball stitch fashion. A sterile dressing was applied and a volar splint placed. All needle and sponge counts were correct at the end of the procedure. The patient was transferred to the PACU in stable condition without apparent complication. I attest to the content of the Intraoperative Record and any orders documented therein. Any exception s are noted below.
[2016-07-29] VITALS (13 sets, daily range): BP systolic 95–121; BP diastolic 56–76; PULSE 61–94; TEMP 36.5–37; O2SAT 92–98
[2016-07-29] MEDS: TRAZODONE HCL 100 MG TAB PO SCH ×2 (00:16→21:17)
[2016-07-29] MEDS: GABAPENTIN 300 MG CAP PO SCH ×4 (00:16→21:17)
[2016-07-29] MEDS: GUAIFENESIN 600 MG TABCR PO SCH ×3 (00:16→21:17)
[2016-07-29] MEDS: HYDROCORTISONE IV 25 MG in SYRINGE 0 ML IV SCH ×3 (00:19→16:31)
[2016-07-29] MEDS: LEVALBUTEROL 1.25MG/0.5ML NEB INH SCH ×4 (01:54→20:15)
[2016-07-29] MEDS: CEFAZOLIN IV 2,000 MG in DEXTROSE 5% 50ML 50 ML IV SCH ×2 (02:36→09:41)
[2016-07-29] MEDS: OXYCODONE HCL IR 5 MG TAB (IMMEDIATE RELEASE) PO PRN ×3 (04:25→23:51)
--- NOTE | 2016-07-29 07:20 | Orthopedic Progress Note ---
Orthopedic Progress Note Date of Service Jul 29, 2016. Subjective Post OP Day: 1 Reports: feeling well, pain controlled w PO medications, Denies: complaints, chest pain, SOB, nausea / vomiting, light headedness, calf pain Additional Notes: Patient states she is doing well. Has occasional pain. She states she has some numbness and tingling in her thumb and index finger on her left hand. Objective calves soft nontender, capillary refill less than 2 sec., dressing C/D/I, A&O x3 , toes mobile Capillary refill is less than 2 seconds. She is able to move all her fingers on the right and left hand. Sensation is slightly diminished. ЕКАТЕРИНА wraps on left side were loosen only slightly. She states that did help a little of the numbness and tingling. Date Time Temp Pulse Resp B/P (MAP) Pulse Ox O2 Delivery O2 Flow Rate FiO2 07/29/16 03:29 36.8 94 14 108/63 (78) 94 Nasal Cannula 3.0 07/29/16 01:54 69 16 96 Nasal Cannula 2.0 07/29/16 01:41 37.0 61 14 102/65 (77) 97 Nasal Cannula 2.0 07/29/16 00:36 37.0 62 18 104/72 (83) 98 Nasal Cannula 4.0 07/29/16 00:02 Nasal Cannula 4.0 07/28/16 23:40 36.9 68 16 111/74 (86) 97 Nasal Cannula 4.0 07/28/16 23:08 36.6 64 20 107/63 (78) 98 Nasal Cannula 4.0 07/28/16 22:40 96 Nasal Cannula 4.0 07/28/16 22:40 36.6 86 16 100/71 (81) 96 Nasal Cannula 4.0 07/28/16 22:20 36.6 67 16 199/54 91 Nasal Cannula 4 07/28/16 22:05 71 16 110/63 92 Nasal Cannula 4 07/28/16 21:55 71 16 111/52 94 Mask 10 07/28/16 21:45 70 16 117/57 94 Mask 10 07/28/16 21:35 36.5 71 16 118/61 95 Mask 10 07/28/16 16:45 36.5 18 129/77 (94) 93 Nasal Cannula 2 07/28/16 16:03 Nasal Cannula 2.0 07/28/16 14:56 36.5 66 18 103/59 (74) 92 Nasal Cannula 2.0 07/28/16 14:31 65 16 93 Nasal Cannula 2.0 07/28/16 11:45 72 16 95 Nasal Cannula 2.0 07/28/16 09:09 63 94/64 (74) 07/28/16 08:15 94 Nasal Cannula 2.0 07/28/16 07:30 36.4 62 16 98/60 (73) 94 Nasal Cannula 2.0 07/28/16 07:15 Nasal Cannula 2.0 Laboratory Results 24 Hours: Test 07/28/16 08:05 07/29/16 04:44 White Blood Count 13.97 K/uL Red Blood Count 3.63 M/uL Hemoglobin 11.2 g/dL Hematocrit 34.4 % Mean Corpuscular Volume 94.8 fL Mean Corpuscular Hemoglobin 30.9 pg Mean Corpuscular Hemoglobin Concent 32.6 g/dl Platelet Count 138 K/uL Mean Platelet Volume 11.0 fL Neutrophils (%) (Auto) 88.1 % Lymphocytes (%) (Auto) 5.6 % Monocytes (%) (Auto) 5.4 % Eosinophils (%) (Auto) 0.0 % Basophils (%) (Auto) 0.1 % Neutrophils # (Auto) 12.30 K/uL Lymphocytes # (Auto) 0.78 K/uL Monocytes # (Auto) 0.76 K/uL Eosinophils # (Auto) 0.00 K/uL Basophils # (Auto) 0.02 K/uL Assessment & Plan Assessment: POD #1 S/P ORIF Left Distal Radius Fx ORIF Right Proximal Humerus Fx h/o primary biliary cirrhosis s/p TIPS with portal hypertension, chronic constrictive pericarditis treated with steroids, CKD, Anemia and recurrent pleural effusions Plan: 1. Medical Management - appreciate Medicine input 2. Keep left wrist splint on for 2 weeks, Right shoulder bandage stays on for 7 days then dry dressings can be applied. 3. PT/OT 4. Discharge - [facility] pt seen, agree with above Inhouse Planning Pain Management: Morphine, Oxy IR DVT Prophylaxis: SCDs Discharge Planning Discharge Planning: intermediate facility
[2016-07-29 07:30] LABS: HEMATOCRIT 33.9 % (37-47); MEAN CELL VOLUME 96.6 fL (80-100); MEAN CORPUSCULAR HEMOGLOBIN 31.1 pg (25-34); MEAN CORPUSCULAR HGB CONC 32.2 g/dl (32-36); MEAN PLATELET VOLUME 11.5 fL (7.4-10.4); PLATELET COUNT 153 K/uL (130-400); RED BLOOD COUNT 3.51 M/uL (4.2-5.4)
[2016-07-29 08:20] LABS: BLOOD UREA NITROGEN 39 mg/dl (7-18); BUN/CREATININE RATIO 21.5 (10-20); CARBON DIOXIDE 21 mmol/L (21-32); CHLORIDE 108 mmol/L (98-107); GLUCOSE 131 mg/dl (70-99); SODIUM 139 mmol/L (136-145)
[2016-07-29] MEDS: URSODIOL 300 MG CAP PO SCH ×2 (08:45→19:49)
[2016-07-29] MEDS: FERROUS GLUCONATE 324 MG TAB PO SCH ×3 (08:45→19:49)
[2016-07-29] MEDS: PROPRANOLOL HCL 10 MG TAB PO SCH (08:46)
[2016-07-29] MEDS: MULTIVITAMIN TAB PO SCH (08:46)
[2016-07-29] MEDS: PANTOprazole SOD 40 MG TAB PO SCH (08:47)
[2016-07-29] MEDS: SERTRALINE HCL 50 MG TAB PO SCH (08:47)
--- NOTE | 2016-07-29 09:11 | Anesthesiology Progress Note ---
Anesthesia Post Op Note Date & Time Jul 29, 2016 at 09:10 Vital Signs Pain Intensity: 8.0 Vital Signs Past 12 Hours Date Time Temp Pulse Resp B/P (MAP) Pulse Ox O2 Delivery O2 Flow Rate FiO2 07/29/16 08:44 71 121/76 (91) 07/29/16 08:36 93 Nasal Cannula 2.0 07/29/16 08:10 66 16 97 Nasal Cannula 2.0 07/29/16 07:25 36.6 62 16 102/58 (73) 93 Nasal Cannula 2.0 07/29/16 03:29 36.8 94 14 108/63 (78) 94 Nasal Cannula 3.0 07/29/16 01:54 69 16 96 Nasal Cannula 2.0 07/29/16 01:41 37.0 61 14 102/65 (77) 97 Nasal Cannula 2.0 07/29/16 00:36 37.0 62 18 104/72 (83) 98 Nasal Cannula 4.0 07/29/16 00:02 Nasal Cannula 4.0 07/28/16 23:40 36.9 68 16 111/74 (86) 97 Nasal Cannula 4.0 07/28/16 23:08 36.6 64 20 107/63 (78) 98 Nasal Cannula 4.0 07/28/16 22:40 96 Nasal Cannula 4.0 07/28/16 22:40 36.6 86 16 100/71 (81) 96 Nasal Cannula 4.0 07/28/16 22:20 36.6 67 16 199/54 91 Nasal Cannula 4 07/28/16 22:05 71 16 110/63 92 Nasal Cannula 4 07/28/16 21:55 71 16 111/52 94 Mask 10 07/28/16 21:45 70 16 117/57 94 Mask 10 07/28/16 21:35 36.5 71 16 118/61 95 Mask 10 Notes Mental Status: alert / awake / arousable, participated in evaluation Anesthetic Complications: no major complications apparent
[2016-07-29] MEDS: LEVOFLOXACIN / D5W 750 MG in PREMIXED IN D5W 150 ML IV SCH (11:28)
--- NOTE | 2016-07-29 12:09 | PULMONARY PROGRESS NOTE ---
DATE: 07/29/2016 TIME: 11:30 a.m. SUBJECTIVE: The patient denies any shortness of breath. She denies any cough, although she did have a loose cough that was somewhat harsh when I did see her. She had her orthopedic surgery yesterday for repair of the right humerus and left wrist. She apparently tolerated the procedure well. The patient states that she does not have oxygen at home. She previously had oxygen from another time. She is anxious to see if she can get off of the oxygen. Reportedly, the patient did have a cold 2 weeks ago and had a significant cough. OBJECTIVE: GENERAL: The patient appeared comfortable. She is sitting in a chair. EXTREMITIES: She has marked difficulties because her right arm is in a shoulder immobilizer and the left arm has a cast or similar type of immobilizer. VITAL SIGNS: Her heart rate is 71 per minute. The blood pressure is 121/76. Her respiratory rate was 16 breaths per minute. She did cough as noted. LUNGS: The lung colin however were clear. Oxygen saturation done by myself at the time of the exam was 95% on two liters. EXTREMITIES: Her lower extremities reveal +1 edema. LABORATORY DATA: White count today is 15.3, hemoglobin 10.9 and platelets 153,000. Electrolytes today show; sodium 139, potassium 3.9, chloride 108 and bicarb 21. BUN was 39 with a creatinine of 1.8. Two days ago, the creatinine was 1.3. IMPRESSION: 1. Status post orthopedic surgery, right and left upper extremities. 2. Hypoxia -- etiology not clear, but possibly related to hepatopulmonary syndrome. 3. Mild atelectasis. COMMENTS: The patient clinically seems stable, but of course she is not exerting herself at all. I would suggest incentive spirometry 4-5 times per day if she is not already receiving it. She is on nebulizer treatments for now. She apparently will be transferred ultimately to [facility]. Prior to that, one can evaluate how her resting pulse oximetry is on room air as well as her exertional pulse oximetry. Ultimately, an overnight pulse oximetry may need to be done on room air to assess her needs. Some of those assessments could be done while she is at [facility].
[2016-07-29] MEDS: D5W AND NSS 1,000 ML IV SCH (12:17)
--- NOTE | 2016-07-29 18:11 | Progress Note ---
Medicine Progress Note Date & Time of Visit: Jul 29, 2016 at 18:04. Subjective patient seen resting in bedside chair, in good spirits family at bedside states she ambulated today, no dizziness/nausea/chest pain/dyspnea pain under control no other problems eager for discharge Objective Last 8 Hrs Date Time Temp Pulse Resp B/P (MAP) Pulse Ox O2 Delivery O2 Flow Rate FiO2 07/29/16 15:04 36.7 70 16 95/56 (69) 92 Nasal Cannula 2.0 07/29/16 14:22 74 16 96 Nasal Cannula 2.0 07/29/16 11:50 36.5 65 12 104/60 (75) 93 Nasal Cannula 2.0 Physical Exam: General- oriented x 3 , not in distress, speaks in sentences with no effort Eyes- anicteric Neck- no JVD Lungs- clear breath sounds no rales/wheezes b/l Heart- regular rhythm; no murmur, normal rate Abdomen- normal bowel sounds, soft, nontender Extremities- (+) right arm with sling in place, can move all fingers; right forearm with dressing in place; grade 1 lower leg edema, no warmth/erythema/tenderness Neuro- alert, oriented x 3; no gross focal deficits Skin- warm & dry Laboratory Results: Last 24 Hours Test 07/29/16 07:08 07/29/16 08:32 White Blood Count 15.30 K/uL Red Blood Count 3.51 M/uL Hemoglobin 10.9 g/dL Hematocrit 33.9 % Mean Corpuscular Volume 96.6 fL Mean Corpuscular Hemoglobin 31.1 pg Mean Corpuscular Hemoglobin Concent 32.2 g/dl RDW Standard Deviation 53.7 fL RDW Coefficient of Variation 15.4 % Platelet Count 153 K/uL Mean Platelet Volume 11.5 fL Sodium Level 139 mmol/L Potassium Level mmol/L 3.9 mmol/L Chloride Level 108 mmol/L Carbon Dioxide Level 21 mmol/L Anion Gap 10.0 mmol/L Blood Urea Nitrogen 39 mg/dl Creatinine 1.80 mg/dl Est Creatinine Clear Calc Drug Dose 35.4 ml/min Estimated GFR () 35.3 Estimated GFR (Non- 30.5 BUN/Creatinine Ratio 21.5 Random Glucose 131 mg/dl Calcium Level 8.0 mg/dl Assessment & Plan 60 year old female with history of Primary Biliary Cirrhosis, 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 Right humeral fracture, left radial fracture secondary to recurrent mechanical fall ambulatory dysfunction. s/p ORIF post op day 1 -- management of hypoxia and acute renal failure noted below DVT prophylaxis per Ortho Hypoxic Respiratory Failure, likely Chronic from Hepato-Pulmonary Syndrome, Primary Biliary Cirrhosis - CT chest: possible bibasilar infiltrates vs. atelectasis VQ scan: low probability for PE Echo: -- Conclusions -- * The left ventricle is normal in size. * There is normal left ventricular wall thickness. * The left ventricular wall motion is normal. * Left ventricular systolic function is normal. * Ejection Fraction = 60-65%. * The left atrium is mildly dilated. * There is mild tricuspid regurgitation. * Doppler findings do not suggest pulmonary hypertension. * The interatrial septum is intact with no evidence for an atrial septal defect. * Injection of contrast documented no interatrial shunt. continues to have o2 sats >90% on 2 liters NC d/c Levaquin for now and monitor continue Nebs evaluated by Pulmonary, appreciate input ACUTE RENAL FAILURE ON CKD 3 crea still elevated at 1.8 today hold diuretics given D5 NSS at 75cc since yesterday, (+) leg edema hold IV fluids patient encouraged oral fluid intake monitor crea avoid nephrotoxins History of primary biliary cirrhosis - px no longer a transplant candidate - compensated from liver standpoint - on Ocaliva every Tuesday - hold Lasix + Aldactone for now to prevent dehydration Chronic constrictive pericarditis, stable on chronic steroid therapy. EF=55-60%, no pericardial effusion (TTE 2016) - patient on chronic prednisone therapy for at least 5 years as per patient received Hydrocortisone 50mg IV 1 hour prior to surgery, then 25mg IV q8h x 24 hours - continue usual Prednisone 1mg daily Hypokalemia secondary to diuretic therapy - resolved - hold diuretics for now Chronic anemia 2 to CKD 3 - Hg 11 baseline 12 - monitor Hypertension - on Propranolol monitor Thank you for this consultation. We will follow the patient with you during their hospital stay. You can reach a member of the [facility] Hospitalist Team 30/08 via pager @ . Current Inpatient Medications: Current Inpatient Medications Medications (Trade) Dose Ordered Sig/Michael Route Start Time Stop Time Status Last Admin Dose Admin Oxycodone HCl (Roxicodone Immediate Rel Tab) `1-2 tabs for pain 1 tab ... Q4H PRN PO 07/26/16 18:00 08/09/16 17:59 07/29/16 08:48 10 MG Morphine Sulfate (MoRPHine SULFATE INJ) 2 mg Q2H PRN IV 07/26/16 18:00 08/09/16 17:59 Prednisone (PredniSONE TAB) 1 mg QAM PO 07/27/16 09:00 08/26/16 08:59 07/29/16 08:47 1 MG Sertraline HCl (Zoloft Tab) 50 mg QAM PO 07/27/16 09:00 08/26/16 08:59 07/29/16 08:47 50 MG Trazodone HCl (Desyrel Tab) 100 mg HS PO 07/26/16 21:00 08/25/16 20:59 07/29/16 00:16 100 MG Gabapentin (Neurontin Cap) 300 mg TID PO 07/26/16 21:00 08/25/16 20:59 07/29/16 13:23 300 MG Ursodiol (Actigall Cap) 600 mg BIDM PO 07/26/16 19:02 08/25/16 19:01 07/29/16 08:45 600 MG Propranolol HCl (Inderal Tab) 10 mg QAM PO 07/27/16 09:00 08/26/16 08:59 07/29/16 08:46 10 MG Cetirizine HCl (zyrTEC TAB) 10 mg DAILY PRN PO 07/26/16 19:15 08/25/16 19:14 07/27/16 21:32 10 MG Miscellaneous Information (Order Awaiting Action) 1 ea QS N/A 07/27/16 00:00 08/26/16 00:00 Hydroxyzine HCl (Vistaril Tab) 50 mg HS PRN PO 07/26/16 21:00 08/25/16 20:59 Albuterol/ Ipratropium (Duoneb) 3 ml Q2H PRN INH 07/26/16 20:30 08/25/16 20:29 Guaifenesin (Mucinex Contr Rel Tab) 600 mg Q12 PO 07/26/16 21:00 08/25/16 20:59 6/22/17 08:46 600 MG Levalbuterol (Xopenex 1.25MG/ 0.5ML Neb) 1.25 mg Q6R INH 07/27/16 10:00 08/26/16 09:59 07/29/16 14:16 1.25 MG Dextrose/Sodium Chloride 1,000 ml @ 75 mls/hr [id number] IV 07/28/16 09:45 08/27/16 09:44 07/29/16 12:17 75 MLS/HR Diphenhydramine HCl (Benadryl Cap) 25 mg Q8 PRN PO 07/28/16 21:30 08/27/16 21:29 Metoclopramide HCl (Reglan Inj) 10 mg Q6H PRN IV 07/28/16 21:30 08/27/16 21:29 Ondansetron HCl (Zofran Inj) 4 mg Q6H PRN IV 07/28/16 21:30 08/27/16 21:29 Al Hydroxide/Mg Hydroxide (Maalox Susp) 30 ml Q4H PRN PO 07/28/16 21:30 08/27/16 21:29 Pantoprazole Sodium (Protonix Tab) 40 mg QAM PO 07/29/16 09:00 08/28/16 08:59 07/29/16 08:47 40 MG Miscellaneous Medication (No Nsaids) 1 ea UD N/A 07/28/16 21:30 08/27/16 21:29 Naloxone HCl (Narcan Inj) 0.1 mg Q2M PRN IV 07/28/16 21:30 08/27/16 21:29 Magnesium Hydroxide (Milk Of Magnesia Susp) 30 ml Q6H PRN PO 07/28/16 21:30 08/27/16 21:29 Multivitamins (Multivitamin Tab) 1 tab DAILY PO 07/29/16 09:00 08/28/16 08:59 07/29/16 08:46 1 TAB Ferrous Gluconate (Ferrous Gluconate Tab) 324 mg TIDM PO 07/29/16 08:30 08/28/16 08:29 07/29/16 12:17 324 MG
[2016-07-29] MEDS: BOOST VANILLA PO SCH ×2 (21:16)
[2016-07-30] VITALS (13 sets, daily range): BP systolic 92–112; BP diastolic 51–73; PULSE 58–75; TEMP 36.5–37.1; O2SAT 91–96
[2016-07-30] MEDS: LEVALBUTEROL 1.25MG/0.5ML NEB INH SCH ×4 (01:50→19:13)
[2016-07-30] MEDS: OXYCODONE HCL IR 5 MG TAB (IMMEDIATE RELEASE) PO PRN ×2 (06:05→22:30)
[2016-07-30 07:33] LABS: HEMATOCRIT 33.1 % (37-47); MEAN CELL VOLUME 96.2 fL (80-100); MEAN CORPUSCULAR HGB CONC 33.2 g/dl (32-36); MEAN PLATELET VOLUME 10.9 fL (7.4-10.4); PLATELET COUNT 177 K/uL (130-400); RED BLOOD COUNT 3.44 M/uL (4.2-5.4); WHITE BLOOD COUNT 18.27 K/uL (4.8-10.8)
[2016-07-30 08:22] LABS: BLOOD UREA NITROGEN 46 mg/dl (7-18); BUN/CREATININE RATIO 25.4 (10-20); CALCIUM 8.8 mg/dl (8.5-10.1); CARBON DIOXIDE 22 mmol/L (21-32); CHLORIDE 105 mmol/L (98-107); GLUCOSE 108 mg/dl (70-99); SODIUM 137 mmol/L (136-145)
[2016-07-30] MEDS: URSODIOL 300 MG CAP PO SCH ×2 (08:57→18:36)
[2016-07-30] MEDS: FERROUS GLUCONATE 324 MG TAB PO SCH ×3 (08:57→18:35)
[2016-07-30] MEDS: SERTRALINE HCL 50 MG TAB PO SCH (08:58)
[2016-07-30] MEDS: GABAPENTIN 300 MG CAP PO SCH ×3 (08:58→20:34)
[2016-07-30] MEDS: GUAIFENESIN 600 MG TABCR PO SCH ×2 (08:58→20:34)
[2016-07-30] MEDS: MULTIVITAMIN TAB PO SCH (08:58)
[2016-07-30] MEDS: PANTOprazole SOD 40 MG TAB PO SCH (08:59)
[2016-07-30] MEDS: PROPRANOLOL HCL 10 MG TAB PO SCH (09:00)
[2016-07-30] MEDS: BOOST VANILLA PO SCH ×6 (09:04→17:45)
[2016-07-30] MEDS: MAGNESIUM HYDROXIDE SUSP 30 ML UDC PO PRN ×2 (09:07→16:27)
[2016-07-30] MEDS: [UNRECOGNIZED DRUG - OTHER] PO SCH (10:28)
--- NOTE | 2016-07-30 11:36 | Progress Note ---
Medicine Progress Note Date & Time of Visit: Jul 30, 2016 at 11:31. Subjective patient seen sitting up in bed, in good spirits at bedside states she feels fine overall pain under control denies dyspnea, has occasional non productive cough no chest pain, dyspnea, dizziness, abdominal pain denies decreased urine output still has some leg swelling no other symptoms Objective Last 8 Hrs Date Time Temp Pulse Resp B/P (MAP) Pulse Ox O2 Delivery O2 Flow Rate FiO2 07/30/16 09:01 67 95/62 (73) 07/30/16 07:40 36.5 67 16 105/65 (78) 95 Room Air 07/30/16 07:30 Nasal Cannula 2.0 07/30/16 07:17 58 16 92 Room Air Physical Exam: General- oriented x 3 , not in distress, speaks in sentences with no effort Eyes- anicteric Neck- no JVD Lungs- clear breath sounds no rales/wheezes bilaterally Heart- regular rhythm; no murmur, normal rate Abdomen- normal bowel sounds, soft, nontender Extremities- (+) right arm with sling in place, can move all fingers; right forearm with dressing in place; grade 1 lower leg edema, no warmth/erythema/tenderness Neuro- alert, oriented x 3; no gross focal deficits Skin- warm & dry Laboratory Results: Last 24 Hours Test 07/30/16 06:55 07/30/16 08:31 White Blood Count 18.27 K/uL Red Blood Count 3.44 M/uL Hemoglobin 11.0 g/dL Hematocrit 33.1 % Mean Corpuscular Volume 96.2 fL Mean Corpuscular Hemoglobin 32.0 pg Mean Corpuscular Hemoglobin Concent 33.2 g/dl RDW Standard Deviation 54.3 fL RDW Coefficient of Variation 15.5 % Platelet Count 177 K/uL Mean Platelet Volume 10.9 fL Sodium Level 137 mmol/L Potassium Level mmol/L 3.9 mmol/L Chloride Level 105 mmol/L Carbon Dioxide Level 22 mmol/L Anion Gap 10.0 mmol/L Blood Urea Nitrogen 46 mg/dl Creatinine 1.80 mg/dl Est Creatinine Clear Calc Drug Dose 35.4 ml/min Estimated GFR () 35.3 Estimated GFR (Non- 30.5 BUN/Creatinine Ratio 25.4 Random Glucose 108 mg/dl Calcium Level 8.8 mg/dl Assessment & Plan 60 year old female with history of Primary Biliary Cirrhosis, 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 Right humeral fracture, left radial fracture secondary to recurrent mechanical fall ambulatory dysfunction. s/p ORIF post op day 2 -- management of hypoxia and acute renal failure noted below DVT prophylaxis per Ortho Hypoxic Respiratory Failure, likely Chronic from Hepato-Pulmonary Syndrome, Primary Biliary Cirrhosis - CT chest: possible bibasilar infiltrates vs. atelectasis VQ scan: low probability for PE Echo: -- Conclusions -- * The left ventricle is normal in size. * There is normal left ventricular wall thickness. * The left ventricular wall motion is normal. * Left ventricular systolic function is normal. * Ejection Fraction = 60-65%. * The left atrium is mildly dilated. * There is mild tricuspid regurgitation. * Doppler findings do not suggest pulmonary hypertension. * The interatrial septum is intact with no evidence for an atrial septal defect. * Injection of contrast documented no interatrial shunt. continues to have o2 sats >90% on 2 liters NC d/c Levaquin yesterday, pneumonia unlikely continue Nebs evaluated by Pulmonary, appreciate input ACUTE RENAL FAILURE ON CKD 3 baseline crea 1.1 crea still elevated at 1.8 ( x 3 days now), after holding diuretics, and being on IV fluids x 2 days (+) leg edema, albumin low will consult Nephrology re: diuretic management (usually on Lasix and Spironolactone for primary biliary cirrhosis) History of primary biliary cirrhosis - px no longer a transplant candidate - compensated from liver standpoint - on Ocaliva every Tuesday - hold Lasix + Aldactone due to elevated crea Chronic constrictive pericarditis, stable on chronic steroid therapy. EF=55-60%, no pericardial effusion (TTE 2016) - patient on chronic prednisone therapy for at least 5 years as per patient received Hydrocortisone 50mg IV 1 hour prior to surgery, then 25mg IV q8h x 24 hours - continue usual Prednisone 1mg daily Hypokalemia secondary to diuretic therapy - resolved - hold diuretics for now Chronic anemia 2 to CKD 3 - Hg 11 baseline 12 - monitor Hypertension - on Propranolol monitor Thank you for this consultation. We will follow the patient with you during their hospital stay. You can reach a member of the [facility] Hospitalist Team 30/08 via pager @ . Current Inpatient Medications: Current Inpatient Medications Medications (Trade) Dose Ordered Sig/Michael Route Start Time Stop Time Status Last Admin Dose Admin Oxycodone HCl (Roxicodone Immediate Rel Tab) `1-2 tabs for pain 1 tab ... Q4H PRN PO 07/26/16 18:00 08/09/16 17:59 07/30/16 06:05 5 MG Morphine Sulfate (MoRPHine SULFATE INJ) 2 mg Q2H PRN IV 07/26/16 18:00 08/09/16 17:59 Prednisone (PredniSONE TAB) 1 mg QAM PO 07/27/16 09:00 08/26/16 08:59 07/30/16 08:59 1 MG Sertraline HCl (Zoloft Tab) 50 mg QAM PO 07/27/16 09:00 08/26/16 08:59 07/30/16 08:58 50 MG Trazodone HCl (Desyrel Tab) 100 mg HS PO 07/26/16 21:00 08/25/16 20:59 07/29/16 21:17 100 MG Gabapentin (Neurontin Cap) 300 mg TID PO 07/26/16 21:00 08/25/16 20:59 07/30/16 08:58 300 MG Ursodiol (Actigall Cap) 600 mg BIDM PO 07/26/16 19:02 08/25/16 19:01 07/30/16 08:57 600 MG Propranolol HCl (Inderal Tab) 10 mg QAM PO 07/27/16 09:00 08/26/16 08:59 07/29/16 08:46 10 MG Cetirizine HCl (zyrTEC TAB) 10 mg DAILY PRN PO 07/26/16 19:15 08/25/16 19:14 07/27/16 21:32 10 MG Miscellaneous Information (Order Awaiting Action) 1 ea QS N/A 07/27/16 00:00 08/26/16 00:00 Hydroxyzine HCl (Vistaril Tab) 50 mg HS PRN PO 07/26/16 21:00 08/25/16 20:59 Albuterol/ Ipratropium (Duoneb) 3 ml Q2H PRN INH 07/26/16 20:30 08/25/16 20:29 Guaifenesin (Mucinex Contr Rel Tab) 600 mg Q12 PO 07/26/16 21:00 08/25/16 20:59 07/29/16 21:17 600 MG Levalbuterol (Xopenex 1.25MG/ 0.5ML Neb) 1.25 mg Q6R INH 07/27/16 10:00 08/26/16 09:59 07/30/16 07:17 1.25 MG Diphenhydramine HCl (Benadryl Cap) 25 mg Q8 PRN PO 07/28/16 21:30 08/27/16 21:29 Metoclopramide HCl (Reglan Inj) 10 mg Q6H PRN IV 07/28/16 21:30 08/27/16 21:29 Ondansetron HCl (Zofran Inj) 4 mg Q6H PRN IV 07/28/16 21:30 08/27/16 21:29 Al Hydroxide/Mg Hydroxide (Maalox Susp) 30 ml Q4H PRN PO 07/28/16 21:30 08/27/16 21:29 Pantoprazole Sodium (Protonix Tab) 40 mg QAM PO 07/29/16 09:00 08/28/16 08:59 07/30/16 08:59 40 MG Miscellaneous Medication (No Nsaids) 1 ea UD N/A 07/28/16 21:30 08/27/16 21:29 Naloxone HCl (Narcan Inj) 0.1 mg Q2M PRN IV 07/28/16 21:30 08/27/16 21:29 Magnesium Hydroxide (Milk Of Magnesia Susp) 30 ml Q6H PRN PO 07/28/16 21:30 08/27/16 21:29 07/30/16 09:07 30 ML Multivitamins (Multivitamin Tab) 1 tab DAILY PO 07/29/16 09:00 08/28/16 08:59 07/30/16 08:58 1 TAB Ferrous Gluconate (Ferrous Gluconate Tab) 324 mg TIDM PO 07/29/16 08:30 08/28/16 08:29 07/30/16 08:57 324 MG Enteral Nutritional Formula (Boost) 1 can TIDM PO 07/29/16 21:00 08/28/16 20:59 07/30/16 09:04 1 CAN Miscellaneous (Ocaliva) 5 mg Fr@0900 PO 07/30/16 09:00 08/29/16 08:59 07/30/16 10:28 5 MG
[2016-07-30] MEDS: ALBUMIN HUMAN 25% 12.5 GM/50 ML VIAL IV SCH ×2 (13:21→20:43)
--- NOTE | 2016-07-30 13:25 | NEPHROLOGY CONSULTATION ---
DATE OF CONSULTATION: 07/30/2016 CONSULTING PHYSICIAN: Vinod Manriquez MD REASON FOR CONSULTATION: CARLOS ENRIQUE. HISTORY OF PRESENT ILLNESS: This is a 60-year-old female with diagnosis of primary biliary cirrhosis in the early 1999s and is on Ursodiol as well as diuretics chronically as well as underwent a TIPS procedure. The patient does have chronic constrictive pericarditis and is on chronic steroid treatment as well as underlying portal hypertension. The patient with CKD stage III with creatinine in the low 1s who has yet to establish with nephrology. The patient did have a fall several weeks ago and underwent a left radial fracture repair. The patient had a second fall at home with a right humeral fracture repair. The patient did not have any NSAID, no contrast given. The patient's creatinine on admission was 1.3 and on the following day went up to 1.8 and has stayed at 1.8. The patient's diuretics were held and the patient was also given IV fluids with no benefit. The patient is comfortable on oxygen at this time. The patient states that she does have some swelling in her legs when she is out of bed and standing up. The patient states her appetite is good and continues to urinate. The patient has been urinating 500-600 mL a day and the pain is well controlled. REVIEW OF SYSTEMS: No headaches. Does have shortness of breath with exertion. No chest pain. No nausea or vomiting. No chronic diarrhea. No rash or itching. No dysuria or hematuria. No blurry vision. No dysphagia. All other review of systems otherwise negative. PAST MEDICAL HISTORY: Primary biliary cirrhosis status post TIPS procedure, CKD stage III with baseline creatinine in the low 1s, chronic constrictive pericarditis on chronic steroids. PAST SURGICAL HISTORY: Tonsillectomy, left shoulder surgery, recent right humeral fracture repair, cataract surgery, and tubal ligation. FAMILY HISTORY: Significant for cirrhosis of the liver. SOCIAL HISTORY: No smoking, no alcohol, no NSAID use. No drugs. Lives at home with . CURRENT MEDICATIONS: Aspirin 81 mg a day, Boost 1 can p.o. t.i.d. with meals, iron 324 p.o. t.i.d. with meals, Neurontin 300 mg p.o. t.i.d., Mucinex 600 mg p.o. q. 12, Ocaliva 5 mg weekly, morphine as needed, multivitamin daily, prednisone 1 mg daily, Protonix 40 mg daily, propranolol 10 mg daily, trazodone 100 mg at night, Zoloft 50 mg daily, ursodiol 600 mg p.o. b.i.d. PHYSICAL EXAMINATION VITAL SIGNS: Temperature 36.5, pulse 67, respiratory rate 16, blood pressures 105/65, and satting 95% on room air. GENERAL: Awake, alert, oriented x3. EYES: No scleral icterus. HEENT: Mucous membranes are dry. NECK: Supple. PULMONARY: Clear to auscultation. CARDIAC: Regular rate and rhythm. ABDOMEN: Bowel sounds positive, soft, mild distention. EXTREMITIES: No significant clubbing, cyanosis or edema. NEUROLOGICALLY: Nonfocal. DERM: No rash or ulcers noted. LABORATORY DATA: Sodium was 137, potassium 3.9, chloride is 105, bicarb is 22, BUN is 46, creatinine is 1.8, glucose 108, calcium is 8.8, and albumin was 2.2 on the . White count 18, H&H 11 and 33, and platelet count 177. INR is 1.2. IMAGING DATA: Chest x-ray from the shows a developing parenchymal infiltrate in the left base with mild right basilar atelectasis. IMPRESSION AND PLAN: Acute kidney injury with creatinine up to 1.8 with the baseline in the low 1s in the setting of a recent fall, diuretics currently on hold, and the creatinine did not significantly improve with low rate of IV fluids. I feel the patient still may be intravascularly volume depleted. I would like to give albumin at this point to help oncotic pressure and check a renal ultrasound to be thorough as well as random urine sodium. LFTs were checked on the which showed an elevated T-bili at 3.4 and AST of 53, alkaline phosphatase of 393 and albumin 2.2. I would like to recheck liver profile tomorrow. I feel that if we increase the serum albumin, there will be better flows to the kidneys. I will hold off on IV fluids at this time given her propensity to third space fluid with her underlying PBC. I appreciate consultation. [place]
--- NOTE | 2016-07-30 15:28 | Orthopedic Progress Note ---
Orthopedic Progress Note Date of Service Jul 30, 2016. Subjective Post OP Day: 2 Reports: feeling well, pain controlled w PO medications, Denies: complaints, chest pain, SOB, nausea / vomiting, light headedness, calf pain Objective calves soft nontender, capillary refill less than 2 sec., dressing C/D/I, A&O x3 , toes mobile Date Time Temp Pulse Resp B/P (MAP) Pulse Ox O2 Delivery O2 Flow Rate FiO2 07/30/16 14:19 36.7 72 18 112/73 (86) 94 Nasal Cannula 2.5 07/30/16 13:25 36.6 70 18 97/62 (74) 92 Nasal Cannula 2.5 07/30/16 09:01 67 95/62 (73) 07/30/16 07:40 36.5 67 16 105/65 (78) 95 Room Air 07/30/16 07:30 Nasal Cannula 2.0 07/30/16 07:17 58 16 92 Room Air 07/30/16 01:50 61 16 94 Nasal Cannula 2.0 07/29/16 23:45 Nasal Cannula 2.0 07/29/16 23:27 36.8 62 16 108/72 (84) 93 Nasal Cannula 2.0 07/29/16 20:15 71 16 97 Nasal Cannula 2.0 07/29/16 16:00 Nasal Cannula 2.0 Laboratory Results 24 Hours: Test 07/30/16 06:55 Hematocrit 33.1 % Hemoglobin 11.0 g/dL Assessment & Plan Assessment: POD #2 S/P ORIF Left Distal Radius Fx ORIF Right Proximal Humerus Fx h/o primary biliary cirrhosis s/p TIPS with portal hypertension, chronic constrictive pericarditis treated with steroids, CKD, Anemia and recurrent pleural effusions Plan: 1. Medical Management - appreciate Medicine input 2. Keep left wrist splint on for 2 weeks, Right shoulder bandage stays on for 7 days then dry dressings can be applied. 3. PT/OT 4. Discharge - [facility] when medically stable 5. Nephrology input appreciated. Pt. seen and examined, agree with above Inhouse Planning Pain Management: Morphine, Oxy IR DVT Prophylaxis: SCDs Discharge Planning Discharge Planning: detention facility
--- NOTE | 2016-07-30 16:00 | DIAGNOSTIC IMAGING REPORT ---
ULTRASOUND KIDNEYS AND BLADDER CLINICAL HISTORY: Acute renal insufficiency. COMPARISON STUDY: No priors. TECHNIQUE: Real-time, grayscale, and color flow sonography of the kidneys and bladder is performed. Images are reviewed in the transverse and longitudinal planes. FINDINGS: Kidneys: The kidneys demonstrate cortical atrophy and are normal in echotexture. The right kidney measures 8.4 x 4.5 x 4.5 cm and the left kidney measures 9.1 x 3.5 x 4.2 cm. There is no hydronephrosis. No shadowing renal calculi are identified. There is no sonographic evidence of contour deforming renal mass lesion. No perinephric fluid is identified. Bladder: The bladder is normal in appearance. Bilateral ureteral jets were seen. Upper abdomen: Survey images of the left upper quadrant show splenomegaly. IMPRESSION: 1. The kidneys are atrophic and without hydronephrosis. 2. The bladder is normal as visualized. 3. Splenomegaly. Electronically signed by: Hung Montiel M.D. 07/30/2016 3:59 PM Dictated Date/Time: 07/30/2016 3:57 PM
[2016-07-30] MEDS: TRAZODONE HCL 100 MG TAB PO SCH (20:34)
[2016-07-31] VITALS (16 sets, daily range): BP systolic 85–104; BP diastolic 45–70; PULSE 65–88; TEMP 36.4–37.6; O2SAT 89–98
[2016-07-31] MEDS: LEVALBUTEROL 1.25MG/0.5ML NEB INH SCH ×4 (02:01→19:44)
[2016-07-31 06:56] LABS: BUN/CREATININE RATIO 29.3 (10-20); CREATININE 1.8 mg/dl (0.60-1.20); POTASSIUM 4.6 mmol/L (3.5-5.1)
[2016-07-31 07:13] LABS: ALB/GLOB RATIO 0.7 (0.9-2)
[2016-07-31] MEDS: GABAPENTIN 300 MG CAP PO SCH ×3 (09:00→22:38)
[2016-07-31] MEDS: FERROUS GLUCONATE 324 MG TAB PO SCH ×3 (09:20→17:26)
[2016-07-31] MEDS: BOOST VANILLA PO SCH ×6 (09:20→17:22)
--- NOTE | 2016-07-31 09:20 | Nephrology Progress Note ---
Nephrology Progress Note Date of Service: Jul 31, 2016. Subjective 60 yo female with PBC who underwent surgery on her arm. creatinine which is usually 1.1 to 1.3 is now up to 1.8. pt is very drowsy this morning. Objective Date Time Temp Pulse Resp B/P (MAP) Pulse Ox O2 Delivery O2 Flow Rate FiO2 07/31/16 07:10 36.8 65 19 100/63 (75) 98 Nasal Cannula 2.0 07/31/16 07:09 72 16 92 Nasal Cannula 2.0 07/31/16 02:01 71 16 93 Nasal Cannula 2.0 07/31/16 00:04 36.4 70 16 95/63 (74) 94 2.0 07/30/16 23:37 37.1 75 18 97/67 (77) 95 Nasal Cannula 2.0 07/30/16 23:26 94 Nasal Cannula 2.0 07/30/16 21:55 37.1 72 16 93/61 (72) 94 Nasal Cannula 2.0 07/30/16 21:00 37.0 73 16 92/51 (65) 91 Nasal Cannula 2.0 07/30/16 19:13 65 16 95 Nasal Cannula 2.0 07/30/16 16:10 96 Nasal Cannula 2.5 07/30/16 16:07 36.6 72 18 101/65 (77) 96 Nasal Cannula 3.0 07/30/16 14:19 36.7 72 18 112/73 (86) 94 Nasal Cannula 2.5 07/30/16 13:25 36.6 70 18 97/62 (74) 92 Nasal Cannula 2.5 Physical Exam: General-awake but very sleepy Eyes-no scleral icterus ENT-mmm Neck-supple Lungs-cta Heart-rrr Abdomen-bs+, soft Extremities-+2 edema Neuro-lethargic Current Inpatient Medications Medications (Trade) Dose Ordered Sig/Michael Route Start Time Stop Time Status Last Admin Dose Admin Oxycodone HCl (Roxicodone Immediate Rel Tab) `1-2 tabs for pain 1 tab ... Q4H PRN PO 07/26/16 18:00 08/09/16 17:59 07/30/16 22:30 5 MG Morphine Sulfate (MoRPHine SULFATE INJ) 2 mg Q2H PRN IV 07/26/16 18:00 08/09/16 17:59 Prednisone (PredniSONE TAB) 1 mg QAM PO 07/27/16 09:00 08/26/16 08:59 07/30/16 08:59 1 MG Sertraline HCl (Zoloft Tab) 50 mg QAM PO 07/27/16 09:00 08/26/16 08:59 07/30/16 08:58 50 MG Trazodone HCl (Desyrel Tab) 100 mg HS PO 07/26/16 21:00 08/25/16 20:59 07/30/16 20:34 100 MG Gabapentin (Neurontin Cap) 300 mg TID PO 07/26/16 21:00 08/25/16 20:59 07/30/16 20:34 300 MG Ursodiol (Actigall Cap) 600 mg BIDM PO 07/26/16 19:02 08/25/16 19:01 07/30/16 18:36 600 MG Propranolol HCl (Inderal Tab) 10 mg QAM PO 07/27/16 09:00 08/26/16 08:59 07/29/16 08:46 10 MG Cetirizine HCl (zyrTEC TAB) 10 mg DAILY PRN PO 07/26/16 19:15 08/25/16 19:14 07/27/16 21:32 10 MG Hydroxyzine HCl (Vistaril Tab) 50 mg HS PRN PO 07/26/16 21:00 08/25/16 20:59 Albuterol/ Ipratropium (Duoneb) 3 ml Q2H PRN INH 07/26/16 20:30 08/25/16 20:29 Guaifenesin (Mucinex Contr Rel Tab) 600 mg Q12 PO 07/26/16 21:00 08/25/16 20:59 07/30/16 20:34 600 MG Levalbuterol (Xopenex 1.25MG/ 0.5ML Neb) 1.25 mg Q6R INH 07/27/16 10:00 08/26/16 09:59 07/31/16 07:09 1.25 MG Diphenhydramine HCl (Benadryl Cap) 25 mg Q8 PRN PO 07/28/16 21:30 08/27/16 21:29 Metoclopramide HCl (Reglan Inj) 10 mg Q6H PRN IV 07/28/16 21:30 08/27/16 21:29 Ondansetron HCl (Zofran Inj) 4 mg Q6H PRN IV 07/28/16 21:30 08/27/16 21:29 Al Hydroxide/Mg Hydroxide (Maalox Susp) 30 ml Q4H PRN PO 07/28/16 21:30 08/27/16 21:29 Pantoprazole Sodium (Protonix Tab) 40 mg QAM PO 07/29/16 09:00 08/28/16 08:59 07/30/16 08:59 40 MG Miscellaneous Medication (No Nsaids) 1 ea UD N/A 07/28/16 21:30 08/27/16 21:29 Naloxone HCl (Narcan Inj) 0.1 mg Q2M PRN IV 07/28/16 21:30 08/27/16 21:29 Magnesium Hydroxide (Milk Of Magnesia Susp) 30 ml Q6H PRN PO 07/28/16 21:30 08/27/16 21:29 07/30/16 16:27 30 ML Multivitamins (Multivitamin Tab) 1 tab DAILY PO 07/29/16 09:00 08/28/16 08:59 07/30/16 08:58 1 TAB Ferrous Gluconate (Ferrous Gluconate Tab) 324 mg TIDM PO 07/29/16 08:30 08/28/16 08:29 07/30/16 18:35 324 MG Enteral Nutritional Formula (Boost) 1 can TIDM PO 07/29/16 21:00 08/28/16 20:59 07/30/16 13:10 1 CAN Miscellaneous (Ocaliva) 5 mg Fr@0900 PO 07/30/16 09:00 08/29/16 08:59 07/30/16 10:28 5 MG Aspirin (Ecotrin Tab) 81 mg QAM PO 07/31/16 09:00 08/30/16 08:59 Albumin Human (Albumin 25%) 25 gm QID IV 07/31/16 09:00 08/03/16 08:59 UNV Last 24 Hours Test 07/31/16 05:35 Sodium Level 137 mmol/L Potassium Level 4.6 mmol/L Chloride Level 105 mmol/L Carbon Dioxide Level 22 mmol/L Anion Gap 10.0 mmol/L Blood Urea Nitrogen 53 mg/dl Creatinine 1.80 mg/dl Est Creatinine Clear Calc Drug Dose 35.4 ml/min Estimated GFR () 35.3 Estimated GFR (Non- 30.5 BUN/Creatinine Ratio 29.3 Random Glucose 90 mg/dl Calcium Level 9.0 mg/dl Total Bilirubin 3.0 mg/dl Aspartate Amino Transf (AST/SGOT) 65 U/L Alanine Aminotransferase (ALT/SGPT) 19 U/L Alkaline Phosphatase 303 U/L Total Protein 5.8 gm/dl Albumin 2.4 gm/dl Globulin 3.4 gm/dl Albumin/Globulin Ratio 0.7 Assessment & Plan ileana on ckd stage 3-baseline creatinine of 1.1 to 1.3 and now up to 1.8. urine sodium <5, would like to give 100 grams of albumin today to see if able to improve perfusion to the kidneys. unclear if this is soley volume depletion or if there is an element of hepatorenal syndrome. giving albumin initially and will follow labs. lethargy-would like to check ammonia levels and abgs. on zyrtec and neurontin and trazodone which may be contributing to her lethary but not taking any other pain medications.
[2016-07-31] MEDS: URSODIOL 300 MG CAP PO SCH ×2 (09:21→17:26)
[2016-07-31] MEDS: ASPIRIN 81 MG ECTAB PO SCH (09:22)
[2016-07-31] MEDS: CETIRIZINE HCL 10 MG TAB PO PRN (09:22)
[2016-07-31] MEDS: MULTIVITAMIN TAB PO SCH (09:22)
[2016-07-31] MEDS: PANTOprazole SOD 40 MG TAB PO SCH (09:22)
[2016-07-31] MEDS: SERTRALINE HCL 50 MG TAB PO SCH (09:23)
[2016-07-31] MEDS: PROPRANOLOL HCL 10 MG TAB PO SCH (09:23)
[2016-07-31] MEDS: GUAIFENESIN 600 MG TABCR PO SCH ×2 (09:24→22:38)
[2016-07-31 10:01] LABS: ARTERIAL BLD GAS O2 SATURATION 94.9 % (90-95); ARTERIAL BLOOD GAS BASE EXCESS -1.2 mEq/L (-9-1.8); ARTERIAL BLOOD GAS HCO3 23 mmol/L (19-24); ARTERIAL BLOOD GAS PO2 77 mm/Hg (80-95); ARTERIAL BLOOD GAS pH 7.41 (7.35-7.45)
[2016-07-31] MEDS: ALBUMIN HUMAN 25% 12.5 GM/50 ML VIAL IV SCH ×5 (10:38→22:37)
--- NOTE | 2016-07-31 10:38 | Progress Note ---
Medicine Progress Note Date & Time of Visit: Jul 31, 2016 at 10:29. Subjective patient seen sitting up in bed appears drowsy but oriented x 3, answers questions appropriately has occasional cough, no shortness of breath, sputum denies chest pain no abdominal pain ,nausea no other symptoms Objective Last 8 Hrs Date Time Temp Pulse Resp B/P (MAP) Pulse Ox O2 Delivery O2 Flow Rate FiO2 07/31/16 07:10 36.8 65 19 100/63 (75) 98 Nasal Cannula 2.0 07/31/16 07:09 72 16 92 Nasal Cannula 2.0 Physical Exam: General- oriented x 3 , drowsy, not in distress, speaks in sentences with no effort Eyes- anicteric Neck- no JVD Lungs- mild rales right base, no wheezing, clear on the left Heart- regular rhythm; no murmur, normal rate Abdomen- normal bowel sounds, soft, nontender Extremities- (+) right arm with sling in place, can move all fingers; right forearm with dressing in place; grade 1 lower leg edema, no warmth/erythema/tenderness Neuro- alert, oriented x 3; no gross focal deficits Skin- warm & dry Laboratory Results: Last 24 Hours Test 07/31/16 05:35 07/31/16 09:37 Sodium Level 137 mmol/L Potassium Level 4.6 mmol/L Chloride Level 105 mmol/L Carbon Dioxide Level 22 mmol/L Anion Gap 10.0 mmol/L Blood Urea Nitrogen 53 mg/dl Creatinine 1.80 mg/dl Est Creatinine Clear Calc Drug Dose 35.4 ml/min Estimated GFR () 35.3 Estimated GFR (Non- 30.5 BUN/Creatinine Ratio 29.3 Random Glucose 90 mg/dl Calcium Level 9.0 mg/dl Total Bilirubin 3.0 mg/dl Aspartate Amino Transf (AST/SGOT) 65 U/L Alanine Aminotransferase (ALT/SGPT) 19 U/L Alkaline Phosphatase 303 U/L Total Protein 5.8 gm/dl Albumin 2.4 gm/dl Globulin 3.4 gm/dl Albumin/Globulin Ratio 0.7 Ammonia 78.0 umol/L Assessment & Plan 60 year old female with history of Primary Biliary Cirrhosis, 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 Right humeral fracture, left radial fracture secondary to recurrent mechanical fall ambulatory dysfunction. s/p ORIF post op day 3 DVT prophylaxis per Ortho Drowsiness likely from Narcotic Intake in the setting of Acute Renal Failure Hyperammonemia -- decrease Oxycodone to 5mg q12h for now hold Trazodone, Sertraline until mental status improves hold benzos, other narcotics -- ABG pending -- Ammonia 78 will start Lactulose consult GI Hypoxic Respiratory Failure, likely Chronic from Hepato-Pulmonary Syndrome, Primary Biliary Cirrhosis - CT chest: possible bibasilar infiltrates vs. atelectasis VQ scan: low probability for PE Echo: -- Conclusions -- * The left ventricle is normal in size. * There is normal left ventricular wall thickness. * The left ventricular wall motion is normal. * Left ventricular systolic function is normal. * Ejection Fraction = 60-65%. * The left atrium is mildly dilated. * There is mild tricuspid regurgitation. * Doppler findings do not suggest pulmonary hypertension. * The interatrial septum is intact with no evidence for an atrial septal defect. * Injection of contrast documented no interatrial shunt. continues to have o2 sats >90% on 2 liters NC repeat CXR to r/o pneumonia continue Nebs evaluated by Pulmonary, appreciate input ACUTE RENAL FAILURE ON CKD 3 baseline crea 1.1 crea still elevated at 1.8 ( x 3 days now), after holding diuretics, and being on IV fluids x 2 days (+) leg edema, albumin low consulted Nephrology -- albumin IV QID started -- monitor History of primary biliary cirrhosis - px no longer a transplant candidate - on Ocaliva every Tuesday - holding Lasix + Aldactone due to elevated crea - Ammonia elevated at 78, drowsy this morning Lactulose started Chronic constrictive pericarditis, stable on chronic steroid therapy. - EF=55-60%, no pericardial effusion (TTE 2016) - patient on chronic prednisone therapy for at least 5 years as per patient received Hydrocortisone 50mg IV 1 hour prior to surgery, then 25mg IV q8h x 24 hours - continue usual Prednisone 1mg daily Hypokalemia secondary to diuretic therapy - resolved - hold diuretics for now Chronic anemia 2 to CKD 3 - Hg 11 baseline 12 - monitor Hypertension - on Propranolol monitor Thank you for this consultation. We will follow the patient with you during their hospital stay. You can reach a member of the [facility] Hospitalist Team 30/08 via pager @ [phone]. Current Inpatient Medications: Current Inpatient Medications Medications (Trade) Dose Ordered Sig/Michael Route Start Time Stop Time Status Last Admin Dose Admin Oxycodone HCl (Roxicodone Immediate Rel Tab) `1-2 tabs for pain 1 tab ... Q4H PRN PO 07/26/16 18:00 08/09/16 17:59 07/30/16 22:30 5 MG Morphine Sulfate (MoRPHine SULFATE INJ) 2 mg Q2H PRN IV 07/26/16 18:00 08/09/16 17:59 Prednisone (PredniSONE TAB) 1 mg QAM PO 07/27/16 09:00 08/26/16 08:59 07/31/16 09:23 1 MG Sertraline HCl (Zoloft Tab) 50 mg QAM PO 07/27/16 09:00 08/26/16 08:59 07/31/16 09:23 50 MG Trazodone HCl (Desyrel Tab) 100 mg HS PO 07/26/16 21:00 08/25/16 20:59 07/30/16 20:34 100 MG Gabapentin (Neurontin Cap) 300 mg TID PO 07/26/16 21:00 08/25/16 20:59 07/30/16 20:34 300 MG Ursodiol (Actigall Cap) 600 mg BIDM PO 07/26/16 19:02 08/25/16 19:01 07/31/16 09:21 600 MG Propranolol HCl (Inderal Tab) 10 mg QAM PO 07/27/16 09:00 08/26/16 08:59 07/31/16 09:23 10 MG Cetirizine HCl (zyrTEC TAB) 10 mg DAILY PRN PO 07/26/16 19:15 08/25/16 19:14 07/31/16 09:22 10 MG Hydroxyzine HCl (Vistaril Tab) 50 mg HS PRN PO 07/26/16 21:00 08/25/16 20:59 Albuterol/ Ipratropium (Duoneb) 3 ml Q2H PRN INH 07/26/16 20:30 08/25/16 20:29 Guaifenesin (Mucinex Contr Rel Tab) 600 mg Q12 PO 07/26/16 21:00 08/25/16 20:59 07/31/16 09:24 600 MG Levalbuterol (Xopenex 1.25MG/ 0.5ML Neb) 1.25 mg Q6R INH 07/27/16 10:00 08/26/16 09:59 07/31/16 07:09 1.25 MG Diphenhydramine HCl (Benadryl Cap) 25 mg Q8 PRN PO 07/28/16 21:30 08/27/16 21:29 Metoclopramide HCl (Reglan Inj) 10 mg Q6H PRN IV 07/28/16 21:30 08/27/16 21:29 Ondansetron HCl (Zofran Inj) 4 mg Q6H PRN IV 07/28/16 21:30 08/27/16 21:29 Al Hydroxide/Mg Hydroxide (Maalox Susp) 30 ml Q4H PRN PO 07/28/16 21:30 08/27/16 21:29 Pantoprazole Sodium (Protonix Tab) 40 mg QAM PO 07/29/16 09:00 08/28/16 08:59 07/31/16 09:22 40 MG Miscellaneous Medication (No Nsaids) 1 ea UD N/A 07/28/16 21:30 08/27/16 21:29 Naloxone HCl (Narcan Inj) 0.1 mg Q2M PRN IV 07/28/16 21:30 08/27/16 21:29 Magnesium Hydroxide (Milk Of Magnesia Susp) 30 ml Q6H PRN PO 07/28/16 21:30 08/27/16 21:29 07/30/16 16:27 30 ML Multivitamins (Multivitamin Tab) 1 tab DAILY PO 07/29/16 09:00 08/28/16 08:59 07/31/16 09:22 1 TAB Ferrous Gluconate (Ferrous Gluconate Tab) 324 mg TIDM PO 07/29/16 08:30 08/28/16 08:29 07/31/16 09:20 324 MG Enteral Nutritional Formula (Boost) 1 can TIDM PO 07/29/16 21:00 08/28/16 20:59 07/31/16 09:20 1 CAN Miscellaneous (Ocaliva) 5 mg Fr@0900 PO 07/30/16 09:00 08/29/16 08:59 07/30/16 10:28 5 MG Aspirin (Ecotrin Tab) 81 mg QAM PO 07/31/16 09:00 08/30/16 08:59 07/31/16 09:22 81 MG Albumin Human (Albumin 25%) 25 gm QID IV 07/31/16 09:00 08/03/16 08:59
--- NOTE | 2016-07-31 10:59 | DIAGNOSTIC IMAGING REPORT ---
SINGLE VIEW CHEST CLINICAL HISTORY: Fever. FINDINGS: An AP, portable, upright chest radiograph is compared to chest x-ray and chest CT dated 07/27/2016. The examination is degraded by portable technique and patient rotation. The heart is mildly enlarged. The pulmonary vasculature is noncongested. There is chronic elevation of right hemidiaphragm and bibasilar atelectasis. A trace right pleural effusion is noted. No airspace consolidation is seen typical for pneumonia. No pneumothorax is seen. The skeletal structures are osteopenic. Chronic posterior matter deformity and postoperative change is seen in the proximal humeri. Skin clips project over the right shoulder. A TIPS catheter projects over the liver. IMPRESSION: 1. Mild cardiac enlargement without radiographic evidence of congestive failure. 2. Trace right pleural effusion, similar to previous. There is no airspace consolidation typical for pneumonia. 3. Additional findings as above. Electronically signed by: Hung Montiel M.D. 07/31/2016 10:58 AM Dictated Date/Time: 07/31/2016 10:56 AM
[2016-07-31 11:19] LABS: ALLEN TEST POS (POS)
--- NOTE | 2016-07-31 11:47 | Orthopedic Progress Note ---
Orthopedic Progress Note Date of Service Jul 31, 2016. Subjective Post OP Day: 3 Reports: pain controlled w PO medications (States the right shoulder is significantly worse in pain than the left wrist. Overall, doing well, all things considered.) Objective N/V intact, capillary refill less than 2 sec., dressing C/D/I, A&O x3 BUE: cap refill < 2 seconds. Fingers are mobile. Sensation is normal and intact. Date Time Temp Pulse Resp B/P (MAP) Pulse Ox O2 Delivery O2 Flow Rate FiO2 07/31/16 08:00 Nasal Cannula 2.0 07/31/16 07:10 36.8 65 19 100/63 (75) 98 Nasal Cannula 2.0 07/31/16 07:09 72 16 92 Nasal Cannula 2.0 07/31/16 02:01 71 16 93 Nasal Cannula 2.0 07/31/16 00:04 36.4 70 16 95/63 (74) 94 2.0 07/30/16 23:37 37.1 75 18 97/67 (77) 95 Nasal Cannula 2.0 07/30/16 23:26 94 Nasal Cannula 2.0 07/30/16 21:55 37.1 72 16 93/61 (72) 94 Nasal Cannula 2.0 07/30/16 21:00 37.0 73 16 92/51 (65) 91 Nasal Cannula 2.0 07/30/16 19:13 65 16 95 Nasal Cannula 2.0 07/30/16 16:10 96 Nasal Cannula 2.5 07/30/16 16:07 36.6 72 18 101/65 (77) 96 Nasal Cannula 3.0 07/30/16 14:19 36.7 72 18 112/73 (86) 94 Nasal Cannula 2.5 07/30/16 13:25 36.6 70 18 97/62 (74) 92 Nasal Cannula 2.5 Assessment & Plan Assessment: POD #3 S/P ORIF Left Distal Radius Fx ORIF Right Proximal Humerus Fx h/o primary biliary cirrhosis s/p TIPS with portal hypertension, chronic constrictive pericarditis treated with steroids, CKD, Anemia and recurrent pleural effusions Plan: 1. Medical Management - appreciate Medicine input 2. Keep left wrist splint on for 2 weeks, Right shoulder bandage stays on for 7 days then dry dressings can be applied. 3. PT/OT 4. Discharge - [facility] is patient's first choice. Insurance approval will not be able to be done until Tuesday08.02.16. She is approved for [facility] at this time but she doesn't want to go there. Medicine is getting the patient stabilized at this time. She may not be ready for discharge even on 08.02.16. Orthopedically Stable; D/W Medical Service and will transfer inpatient care to Medical service 5. Nephrology input reviewed and appreciated. 6. F/U in clinic w/ Dr Fontenot in 12-15 days Pt. seen and examined, agree with above Shukri Gould DO Inhouse Planning Pain Management: Morphine, Oxy IR DVT Prophylaxis: SCDs Discharge Planning Discharge Planning: uncertain ([facility] vs. [facility] when medically stable and pending insurance approval of [facility].)
[2016-07-31] MEDS: LACTULOSE SYRUP 10 GM/15 ML BTL 473 ML PO SCH ×2 (13:41→22:38)
--- NOTE | 2016-07-31 16:24 | GASTROINTESTINAL CONSULTATION ---
DATE OF CONSULTATION: 07/31/2016 DATE OF CONSULTATION: 07/31/2016. Cross coverage for [place]. REASON FOR CONSULTATION: Elevated ammonia. History of cirrhosis. ATTENDING PHYSICIAN: Dr. Manriquez. CONSULTING PHYSICIAN: Dr. Urrutia. HISTORY OF PRESENT ILLNESS: I had the pleasure of seeing Pat Childress at her bedside today. 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 Prior to this, she was receiving recurrent paracentesis weekly with removal of 4-6 liters of fluid and states that at that time in 2013 her MELD score was in the low 30s. She states her and her who was at the bedside states that her MELD score has been in the low teens since she underwent the TIPS procedure and she follows with Dr. Agosto at [facility] who she last saw 2-3 months ago. She states that she previously had difficulties with hyperammonemia and had previously been on lactulose as well as Xifaxan therapy, though discontinued the lactulose secondary to recurrent diarrhea, stating "I could not leave the house" and discontinued the Xifaxan as it was approximately 540 dollars for 20 days supply. She presented to the Department of Emergency Medicine on 07/26/2016 and was noted to have a mechanical fall at home causing a right humeral fracture. She subsequently underwent surgical repair. Since that time she has been constipated receiving narcotic analgesics and states that she has not had a bowel movement in 5 days. She became slightly confused overnight and was noted to have an elevated ammonia level of 78 today. Consultation was placed. At the time that I saw the patient, she states that she did notice that she was becoming more confused and her who was at the bedside noticed that as well. The patient denies any jaundice, acholic stools, darker urine or other complaints. She has been on ursodiol therapy since her diagnosis in 2000 and takes this regularly. Currently she denies any fevers, chills, nausea, vomiting, hematemesis, melena, hematochezia, or abdominal pain. She has no further complaints. PAST MEDICAL HISTORY: Significant for PBC with cirrhosis, constrictive pericarditis, portal hypertension, chronic anemia, history of recurrent right pleural effusion, chronic renal insufficiency. PAST SURGICAL HISTORY: Includes a TIPS procedure at [facility] as well as a ortho repair of a left radial fracture. ALLERGIES: ACETAMINOPHEN, BUDESONIDE, LATEX, MYCOPHENOLATE, PSEUDOEPHEDRINE. MEDICATIONS AT PRESENT: Include oxycodone 5 mg p.o. q. 12 hours p.r.n. pain, lactulose 15 grams p.o. t.i.d., aspirin 81 mg p.o. q.a.m., Boost 1 can p.o. t.i.d., Protonix 40 mg p.o. q.a.m., multivitamin 1 tab p.o. daily, Reglan 10 mg IV q. 6 p.r.n. nausea or vomiting, Zofran 4 mg IV q. 6 p.r.n. nausea, vomiting, prednisone 1 mg p.o. q.a.m., propranolol 10 mg p.o. q.a.m., gabapentin 300 mg p.o. t.i.d., guaifenesin 600 mg p.o. q. 12 hours, cetirizine 10 mg p.o. daily, ursodiol, 600 mg p.o. b.i.d. SOCIAL HISTORY: She is . She denies any tobacco, alcohol or illicit drug use. FAMILY HISTORY: Negative for GI malignancy or inflammatory bowel disease. REVIEW OF SYSTEMS: Negative x10 system review other than pertinent positives listed in the HPI. PHYSICAL EXAMINATION: VITAL SIGNS: Temp 37, pulse 75, respirations 18, blood pressure 93/45, pulse ox 94% on 2 liters via nasal cannula. GENERAL EXAMINATION: She is awake, cooperative, in no acute distress. She is chronic ill appearing. HEAD: Normocephalic, atraumatic. EYES: Pupils equally round. Extraocular muscles are intact. EARS, NOSE, THROAT: External evaluation of ears and nose are normal. Oropharynx is clear. NECK: Soft, supple, no JVD or lymphadenopathy. CHEST: Clear to auscultation bilaterally. CARDIOVASCULAR SYSTEM: Regular rate and rhythm. ABDOMEN: Soft, nontender, and nondistended. Positive bowel sounds. There is no hepatosplenomegaly noticeable. LABORATORY STUDIES: From today include a white blood cell count of 18.27, hemoglobin of 11, hematocrit 33.1, platelet count 177. Sodium 137, potassium 4.6, chloride 105, bicarbonate 22, BUN 53, creatinine 1.8, blood glucose level of 90. Total bilirubin of 3.0, AST 65, ALT 19, alkaline phosphatase 303. Ammonia 78. IMPRESSION: A 60-year-old female status post left humeral fracture with repair who has a history of primary biliary cholangitis with cirrhosis and a history of hepatic encephalopathy who has not been on outpatient meds and subsequently has been constipated while on narcotic analgesics for her humeral fracture. PLAN: At the present time, I would recommend that the patient be on lactulose. She is currently on 15 grams p.o. t.i.d. I would recommend titrating that to maintain 3 bowel movements per day. I will also place her on Xifaxan 550 mg p.o. b.i.d. She obviously will be continued on her ursodiol 600 mg p.o. b.i.d. as well. I will follow her clinical course and make further recommendations as needed. Irvin COTTRELL will resume her care on Tuesday.
[2016-07-31] MEDS ORDERED: OXYCODONE HCL IR 5 MG TAB (IMMEDIATE RELEASE) PO PRN (18:00)
[2016-07-31] MEDS: RIFAXIMIN TAB 550 MG TAB PO SCH (22:38)
[2016-08-01] VITALS (8 sets, daily range): BP systolic 90–138; BP diastolic 50–66; PULSE 68–79; TEMP 36.7–38; O2SAT 92–96
[2016-08-01] MEDS: LEVALBUTEROL 1.25MG/0.5ML NEB INH SCH ×4 (01:56→18:52)
--- NOTE | 2016-08-01 08:00 | Pulmonology Progress Note ---
Pulmonary Progress Note Date of Service Jul 31, 2016. Attending Dr. Poole Subjective The patient has primary billiary cirrhosis and was admitted post fall and fracture of the Left upper extremity. She was having hypoxia and SOB prior to the surgery. VQ scan showed low probability for PE and the echocardiogram did not show RV strain. She is a little confused today and drowsy and she says she is still SOB like the day she fell. She says she never had SOB before she fell. ABG performed and shows no hypercarbia. She does have an increased A-a gradient. Ammonia is elevated which explains her drowsiness. Lactulose was restarted. Per her RN lactulose produces prompt diarrhea. She really does not use the incentive spirometer and needs to be coached. When she does she produces copious amounts of phlegm Objective GA not in cute distress drowsy and arousable and when aroused answers questions appropriately HENT no LN no JVD lungs decreased air entry right base, rhales that resolve with incentive spirometry on the left side. heart nl s1 s2 abdomen soft non tender BS sluggish Ext RUE in cast minimal ankle edema bilaterally no clubbing no cyanosis' neurologic no asterexis Assessment & Plan 60 yo female with primary billiary cirrhosis s/p fall down and ORIF RUE with hypoxia chronic elevated hemidiaphragm (she relates it to the onset of primary biliary cirrhosis) The hypoxia is multifactorial. It is probably related to elevated hemidiaphragm together with an element of atelectasis. There is no orthodeoxia or platypnea by exam or history, which means portopulmonary hypertension is not a big component in the picture. She may have developed a pulmonary fat embolus and those are not necessarily visualized on VQ scan. UE usually produce less critical fat emboli if at all. The therapy is supportive Agree with O2, bronchodialtors, steroid (Prednisone) - controversial in fat emboli but not harmful. encourage aggressive incentive spirometry and ambulation agree with lactulose, rifaxamin. Patient needs to have her NH3 normalized minimize sedatives - another alternative to lactulose is methylnaltrexone since she is on small doses of narcotics, please add heparin SC for DVT prophylaxis cirrhotic patients are at increased risk of DVT. Data Medications: Current Inpatient Medications Medications (Trade) Dose Ordered Sig/Michael Route Start Time Stop Time Status Last Admin Dose Admin Prednisone (PredniSONE TAB) 1 mg QAM PO 07/27/16 09:00 08/26/16 08:59 07/31/16 09:23 1 MG Gabapentin (Neurontin Cap) 300 mg TID PO 07/26/16 21:00 08/25/16 20:59 07/31/16 22:38 300 MG Ursodiol (Actigall Cap) 600 mg BIDM PO 07/26/16 19:02 08/25/16 19:01 07/31/16 17:26 600 MG Propranolol HCl (Inderal Tab) 10 mg QAM PO 07/27/16 09:00 08/26/16 08:59 07/31/16 09:23 10 MG Cetirizine HCl (zyrTEC TAB) 10 mg DAILY PRN PO 07/26/16 19:15 08/25/16 19:14 07/31/16 09:22 10 MG Albuterol/ Ipratropium (Duoneb) 3 ml Q2H PRN INH 07/26/16 20:30 08/25/16 20:29 Guaifenesin (Mucinex Contr Rel Tab) 600 mg Q12 PO 07/26/16 21:00 08/25/16 20:59 07/31/16 22:38 600 MG Levalbuterol (Xopenex 1.25MG/ 0.5ML Neb) 1.25 mg Q6R INH 07/27/16 10:00 08/26/16 09:59 07/31/16 19:44 1.25 MG Metoclopramide HCl (Reglan Inj) 10 mg Q6H PRN IV 07/28/16 21:30 08/27/16 21:29 Ondansetron HCl (Zofran Inj) 4 mg Q6H PRN IV 07/28/16 21:30 08/27/16 21:29 Al Hydroxide/Mg Hydroxide (Maalox Susp) 30 ml Q4H PRN PO 07/28/16 21:30 08/27/16 21:29 Pantoprazole Sodium (Protonix Tab) 40 mg QAM PO 07/29/16 09:00 08/28/16 08:59 07/31/16 09:22 40 MG Miscellaneous Medication (No Nsaids) 1 ea UD N/A 07/28/16 21:30 08/27/16 21:29 Naloxone HCl (Narcan Inj) 0.1 mg Q2M PRN IV 07/28/16 21:30 08/27/16 21:29 Magnesium Hydroxide (Milk Of Magnesia Susp) 30 ml Q6H PRN PO 07/28/16 21:30 08/27/16 21:29 07/30/16 16:27 30 ML Multivitamins (Multivitamin Tab) 1 tab DAILY PO 07/29/16 09:00 08/28/16 08:59 07/31/16 09:22 1 TAB Ferrous Gluconate (Ferrous Gluconate Tab) 324 mg TIDM PO 07/29/16 08:30 08/28/16 08:29 07/31/16 17:26 324 MG Enteral Nutritional Formula (Boost) 1 can TIDM PO 07/29/16 21:00 08/28/16 20:59 07/31/16 12:26 1 CAN Miscellaneous (Ocaliva) 5 mg Fr@0900 PO 07/30/16 09:00 08/29/16 08:59 07/30/16 10:28 5 MG Aspirin (Ecotrin Tab) 81 mg QAM PO 07/31/16 09:00 08/30/16 08:59 07/31/16 09:22 81 MG Albumin Human (Albumin 25%) 25 gm QID IV 07/31/16 09:00 08/03/16 08:59 07/31/16 22:37 25 GM Oxycodone HCl (Roxicodone Immediate Rel Tab) 5 mg Q12H PRN PO 07/31/16 18:00 08/09/16 17:59 Lactulose (Chronulac Syrup) 15 gm TID PO 07/31/16 14:00 08/30/16 13:59 07/31/16 22:38 15 GM Rifaximin (Xifaxan Tab) 550 mg BID PO 07/31/16 21:00 08/30/16 20:59 07/31/16 22:38 550 MG I & O: 24-Hour Column 08/01/16 08:00 Intake Total 652 ml Output Total 800 ml Balance -148 ml Vital Signs: Date Time Temp Pulse Resp B/P (MAP) Pulse Ox O2 Delivery O2 Flow Rate FiO2 07/31/16 20:26 94 Nasal Cannula 2.0 07/31/16 20:15 37.5 78 16 92/48 (63) 89 Room Air 07/31/16 19:44 88 16 91 Room Air 07/31/16 17:15 37.4 73 18 94/59 (71) 94 Nasal Cannula 2.0 07/31/16 17:15 94 Nasal Cannula 2.0 07/31/16 14:50 37.0 75 18 93/45 (61) 94 Nasal Cannula 2.0 07/31/16 14:34 36.5 73 19 95/55 (68) 95 Nasal Cannula 2.0 07/31/16 14:13 66 16 93 Nasal Cannula 2.0 07/31/16 13:32 36.8 74 18 92/59 (70) 95 Nasal Cannula 3.0 07/31/16 11:30 72 16 96/63 (74) 97 Oxymask 3.0 07/31/16 10:30 71 16 104/70 (81) 94 Oxymask 3.0 07/31/16 08:00 Nasal Cannula 2.0 07/31/16 07:10 36.8 65 19 100/63 (75) 98 Nasal Cannula 2.0 07/31/16 07:09 72 16 92 Nasal Cannula 2.0 07/31/16 02:01 71 16 93 Nasal Cannula 2.0 07/31/16 00:04 36.4 70 16 95/63 (74) 94 2.0 07/30/16 23:37 37.1 75 18 97/67 (77) 95 Nasal Cannula 2.0 07/30/16 23:26 94 Nasal Cannula 2.0 Laboratory Results: Last 24 Hours Test 07/31/16 05:35 07/31/16 09:37 Sodium Level 137 mmol/L Potassium Level 4.6 mmol/L Chloride Level 105 mmol/L Carbon Dioxide Level 22 mmol/L Anion Gap 10.0 mmol/L Blood Urea Nitrogen 53 mg/dl Creatinine 1.80 mg/dl Est Creatinine Clear Calc Drug Dose 35.4 ml/min Estimated GFR () 35.3 Estimated GFR (Non- 30.5 BUN/Creatinine Ratio 29.3 Random Glucose 90 mg/dl Calcium Level 9.0 mg/dl Total Bilirubin 3.0 mg/dl Aspartate Amino Transf (AST/SGOT) 65 U/L Alanine Aminotransferase (ALT/SGPT) 19 U/L Alkaline Phosphatase 303 U/L Total Protein 5.8 gm/dl Albumin 2.4 gm/dl Globulin 3.4 gm/dl Albumin/Globulin Ratio 0.7 Arterial Blood pH 7.41 Arterial Blood Partial Pressure CO2 37 mmHg Arterial Blood Partial Pressure O2 77 mm/Hg Arterial Blood HCO3 23 mmol/L Arterial Blood Oxygen Saturation 94.9 % Arterial Blood Base Excess -1.2 mEq/L Arterial Blood Gas Delivery 2l Amado Test POS Ammonia 78.0 umol/L
--- NOTE | 2016-08-01 08:17 | Orthopedic Progress Note ---
Orthopedic Progress Note Date of Service Aug 01, 2016. Subjective Post OP Day: 4 Reports: feeling well, pain controlled w PO medications Additional Notes: Patient is sleepy today during exam. No new complaints. Objective N/V intact, capillary refill less than 2 sec., dressing C/D/I, A&O x3 RUE dressing clean and dry. RUE in sling. Right fingers are mobile. LUE in Short arm splint. Splint clean and dry. Fingers are mobile. Date Time Temp Pulse Resp B/P (MAP) Pulse Ox O2 Delivery O2 Flow Rate FiO2 08/01/16 07:18 68 16 92 Nasal Cannula 2.0 08/01/16 07:00 36.7 79 20 90/57 (68) 94 Nasal Cannula 2.0 07/31/16 23:30 Nasal Cannula 2.0 07/31/16 23:05 37.3 79 93/48 (63) 07/31/16 22:55 37.6 79 16 85/46 (59) 94 Nasal Cannula 2.0 07/31/16 20:26 94 Nasal Cannula 2.0 07/31/16 20:15 37.5 78 16 92/48 (63) 89 Room Air 07/31/16 19:44 88 16 91 Room Air 07/31/16 17:15 37.4 73 18 94/59 (71) 94 Nasal Cannula 2.0 07/31/16 17:15 94 Nasal Cannula 2.0 07/31/16 14:50 37.0 75 18 93/45 (61) 94 Nasal Cannula 2.0 07/31/16 14:34 36.5 73 19 95/55 (68) 95 Nasal Cannula 2.0 07/31/16 14:13 66 16 93 Nasal Cannula 2.0 07/31/16 13:32 36.8 74 18 92/59 (70) 95 Nasal Cannula 3.0 07/31/16 11:30 72 16 96/63 (74) 97 Oxymask 3.0 07/31/16 10:30 71 16 104/70 (81) 94 Oxymask 3.0 Laboratory Results 24 Hours: Test 08/01/16 07:42 Assessment & Plan Assessment: POD #4 S/P ORIF Left Distal Radius Fx ORIF Right Proximal Humerus Fx h/o primary biliary cirrhosis s/p TIPS with portal hypertension, chronic constrictive pericarditis treated with steroids, CKD, Anemia and recurrent pleural effusions Plan: 1. Medical Management - appreciate Medicine input. Spoke with Dr. Manriquez yesterday who agreed to have medicine take over the patient's care. At this time , ortho will sign off and she will be seen as an outpatient. 2. Keep left wrist splint on for 2 weeks, Right shoulder bandage stays on for 7 days then dry dressings can be applied. 3. PT/OT 4. Discharge - [facility] is patient's first choice. Insurance approval will not be able to be done until Tuesday08.02.16. She is approved for [facility] at this time but she doesn't want to go there. Medicine is getting the patient stabilized at this time. She may not be ready for discharge even on 08.02.16. Orthopedically Stable; D/W Medical Service and will transfer inpatient care to Medical service 5. Nephrology input reviewed and appreciated. 6. F/U in clinic w/ Dr Fontenot in 12-15 days Pt. seen and examined, agree with above Shukri Gould DO Inhouse Planning Pain Management: Morphine, Oxy IR DVT Prophylaxis: SCDs Discharge Planning Discharge Planning: uncertain ([facility] vs. [facility] when medically stable and pending insurance approval of [facility].)
--- NOTE | 2016-08-01 08:20 | Consultant Recommendations ---
Internet Project Manager Recommendations Date of Service Aug 01, 2016. Internet Project Manager Recommendations 1. Keep left wrist splint on for 2 weeks, Right shoulder bandage stays on for 7 days then dry dressings can be applied. 2. F/U in clinic w/ Dr Fontenot in 12-15 days ACTIVITY RECOMMENDATIONS: * Avoid lifting anything heavier than a medium water glass until your first post operative visit. SPECIAL CARE INSTRUCTIONS: * Your bandage should be left in place until your follow up in 2 weeks. * Some drainage onto the dressing may occur. This is normal. * If the bandage feels excessively tight, you may loosen the elastic bandage. Then call the physician's office for further instructions. * If possible, keep your hand elevated above the level of your heart for the first 2 post operative days. You may use a sling if necessary. * You should move your fingers regularly (50-100 motions per hour) unless otherwise instructed. SPECIAL PRECAUTIONS: * If you notice increased drainage, fever over 101 degrees F. or severe, unremitting pain, call your physician/office at . * You may have been prescribed pain medication. If you experience nausea and/or skin rash, discontinue this medication and contact our office for an alternative medication. FOLLOW UP VISIT: If appointment is not already scheduled: Please call [facility] to make a follow-up appointment with Dr. Fontenot for 2 weeks after your surgery at .
[2016-08-01] MEDS: BOOST VANILLA PO SCH ×6 (08:30→16:44)
[2016-08-01 08:37] LABS: BASO % 0.1 %; BASO ABS # 0.01 K/uL (0-0.2); EOS % 0.9 %; HEMATOCRIT 25.7 % (37-47); IG% 0.8 %; LYMPH % 6.7 %; LYMPH ABS # 0.82 K/uL (1.2-3.4); MEAN CELL VOLUME 93.5 fL (80-100); MEAN CORPUSCULAR HEMOGLOBIN 31.6 pg (25-34); MEAN CORPUSCULAR HGB CONC 33.9 g/dl (32-36); MEAN PLATELET VOLUME 11.1 fL (7.4-10.4); MONO % 6.6 %; NEUT % 84.9 %; PLATELET COUNT 114 K/uL (130-400); RED BLOOD COUNT 2.75 M/uL (4.2-5.4); WHITE BLOOD COUNT 12.22 K/uL (4.8-10.8)
[2016-08-01 08:58] LABS: COMPLETE YES; HYPOCHROMIA PRESENT; POLYCHROMASIA 1+
[2016-08-01] MEDS: GABAPENTIN 300 MG CAP PO SCH ×3 (09:00→21:37)
[2016-08-01] MEDS: PROPRANOLOL HCL 10 MG TAB PO SCH (09:00)
[2016-08-01 09:04] LABS: BUN/CREATININE RATIO 29.8 (10-20); POTASSIUM 4.5 mmol/L (3.5-5.1)
[2016-08-01] MEDS: ALBUMIN HUMAN 25% 12.5 GM/50 ML VIAL IV SCH ×4 (10:15→21:38)
[2016-08-01] MEDS: URSODIOL 300 MG CAP PO SCH ×2 (10:25→16:36)
[2016-08-01] MEDS: FERROUS GLUCONATE 324 MG TAB PO SCH ×3 (10:25→16:37)
[2016-08-01] MEDS: ASPIRIN 81 MG ECTAB PO SCH (10:26)
[2016-08-01] MEDS: LACTULOSE SYRUP 10 GM/15 ML BTL 473 ML PO SCH ×3 (10:26→21:37)
[2016-08-01] MEDS: GUAIFENESIN 600 MG TABCR PO SCH ×2 (10:26→21:37)
[2016-08-01] MEDS: MULTIVITAMIN TAB PO SCH (10:27)
[2016-08-01] MEDS: PANTOprazole SOD 40 MG TAB PO SCH (10:28)
[2016-08-01] MEDS: RIFAXIMIN TAB 550 MG TAB PO SCH ×2 (10:28→21:37)
--- NOTE | 2016-08-01 12:54 | Nephrology Progress Note ---
Nephrology Progress Note Date of Service: Aug 01, 2016. Subjective 60 yo female with PBC who underwent surgery on her arm. creatinine which is usually 1.1 to 1.3 is now up to 2 with a urine sodium <5. initially started on albumin and pt continues to be drowsy and creatinine trending up. son and granddaughter in room. spoke to over the phone. answered questions. pt eating but confused and sleepy. Objective Date Time Temp Pulse Resp B/P (MAP) Pulse Ox O2 Delivery O2 Flow Rate FiO2 08/01/16 11:47 69 90/50 (63) 08/01/16 07:18 68 16 92 Nasal Cannula 2.0 08/01/16 07:00 36.7 79 20 90/57 (68) 94 Nasal Cannula 2.0 07/31/16 23:30 Nasal Cannula 2.0 07/31/16 23:05 37.3 79 93/48 (63) 07/31/16 22:55 37.6 79 16 85/46 (59) 94 Nasal Cannula 2.0 07/31/16 20:26 94 Nasal Cannula 2.0 07/31/16 20:15 37.5 78 16 92/48 (63) 89 Room Air 07/31/16 19:44 88 16 91 Room Air 07/31/16 17:15 37.4 73 18 94/59 (71) 94 Nasal Cannula 2.0 07/31/16 17:15 94 Nasal Cannula 2.0 07/31/16 14:50 37.0 75 18 93/45 (61) 94 Nasal Cannula 2.0 07/31/16 14:34 36.5 73 19 95/55 (68) 95 Nasal Cannula 2.0 07/31/16 14:13 66 16 93 Nasal Cannula 2.0 07/31/16 13:32 36.8 74 18 92/59 (70) 95 Nasal Cannula 3.0 Physical Exam: General-sleepy Eyes-no scleral icterus ENT-mmm Neck-supple Lungs-clear Heart-regular Abdomen-bs+, soft Extremities-+2 edema above teds Neuro-lethargic Current Inpatient Medications Medications (Trade) Dose Ordered Sig/Michael Route Start Time Stop Time Status Last Admin Dose Admin Prednisone (PredniSONE TAB) 1 mg QAM PO 07/27/16 09:00 08/26/16 08:59 08/01/16 10:29 1 MG Gabapentin (Neurontin Cap) 300 mg TID PO 07/26/16 21:00 08/25/16 20:59 07/31/16 22:38 300 MG Ursodiol (Actigall Cap) 600 mg BIDM PO 07/26/16 19:02 08/25/16 19:01 08/01/16 10:25 600 MG Propranolol HCl (Inderal Tab) 10 mg QAM PO 07/27/16 09:00 08/26/16 08:59 07/31/16 09:23 10 MG Cetirizine HCl (zyrTEC TAB) 10 mg DAILY PRN PO 07/26/16 19:15 08/25/16 19:14 07/31/16 09:22 10 MG Albuterol/ Ipratropium (Duoneb) 3 ml Q2H PRN INH 07/26/16 20:30 08/25/16 20:29 Guaifenesin (Mucinex Contr Rel Tab) 600 mg Q12 PO 07/26/16 21:00 08/25/16 20:59 08/01/16 10:26 600 MG Levalbuterol (Xopenex 1.25MG/ 0.5ML Neb) 1.25 mg Q6R INH 07/27/16 10:00 08/26/16 09:59 08/01/16 07:17 1.25 MG Metoclopramide HCl (Reglan Inj) 10 mg Q6H PRN IV 07/28/16 21:30 08/27/16 21:29 Ondansetron HCl (Zofran Inj) 4 mg Q6H PRN IV 07/28/16 21:30 08/27/16 21:29 Al Hydroxide/Mg Hydroxide (Maalox Susp) 30 ml Q4H PRN PO 07/28/16 21:30 08/27/16 21:29 Pantoprazole Sodium (Protonix Tab) 40 mg QAM PO 07/29/16 09:00 08/28/16 08:59 08/01/16 10:28 40 MG Miscellaneous Medication (No Nsaids) 1 ea UD N/A 07/28/16 21:30 08/27/16 21:29 Naloxone HCl (Narcan Inj) 0.1 mg Q2M PRN IV 07/28/16 21:30 08/27/16 21:29 Magnesium Hydroxide (Milk Of Magnesia Susp) 30 ml Q6H PRN PO 07/28/16 21:30 08/27/16 21:29 07/30/16 16:27 30 ML Multivitamins (Multivitamin Tab) 1 tab DAILY PO 07/29/16 09:00 08/28/16 08:59 08/01/16 10:27 1 TAB Ferrous Gluconate (Ferrous Gluconate Tab) 324 mg TIDM PO 07/29/16 08:30 08/28/16 08:29 08/01/16 10:25 324 MG Enteral Nutritional Formula (Boost) 1 can TIDM PO 07/29/16 21:00 08/28/16 20:59 07/31/16 12:26 1 CAN Miscellaneous (Ocaliva) 5 mg Fr@0900 PO 07/30/16 09:00 08/29/16 08:59 07/30/16 10:28 5 MG Aspirin (Ecotrin Tab) 81 mg QAM PO 07/31/16 09:00 08/30/16 08:59 08/01/16 10:26 81 MG Albumin Human (Albumin 25%) 25 gm QID IV 07/31/16 09:00 08/03/16 08:59 08/01/16 10:15 25 GM Oxycodone HCl (Roxicodone Immediate Rel Tab) 5 mg Q12H PRN PO 07/31/16 18:00 08/09/16 17:59 Lactulose (Chronulac Syrup) 15 gm TID PO 07/31/16 14:00 08/30/16 13:59 08/01/16 10:26 15 GM Rifaximin (Xifaxan Tab) 550 mg BID PO 07/31/16 21:00 08/30/16 20:59 08/01/16 10:28 550 MG Heparin Sodium (Porcine) (Heparin Sq 5000 Unit/0.5ml) 5,000 unit Q8 SQ 08/01/16 14:00 08/31/16 13:59 Last 24 Hours Test 08/01/16 08:13 08/01/16 12:25 White Blood Count 12.22 K/uL Red Blood Count 2.75 M/uL Hemoglobin 8.7 g/dL Hematocrit 25.7 % Mean Corpuscular Volume 93.5 fL Mean Corpuscular Hemoglobin 31.6 pg Mean Corpuscular Hemoglobin Concent 33.9 g/dl Platelet Count 114 K/uL Mean Platelet Volume 11.1 fL Neutrophils (%) (Auto) 84.9 % Lymphocytes (%) (Auto) 6.7 % Monocytes (%) (Auto) 6.6 % Eosinophils (%) (Auto) 0.9 % Basophils (%) (Auto) 0.1 % Neutrophils # (Auto) 10.37 K/uL Lymphocytes # (Auto) 0.82 K/uL Monocytes # (Auto) 0.81 K/uL Eosinophils # (Auto) 0.11 K/uL Basophils # (Auto) 0.01 K/uL RDW Standard Deviation 53.3 fL RDW Coefficient of Variation 15.9 % Immature Granulocyte % (Auto) 0.8 % Immature Granulocyte # (Auto) 0.10 K/uL Polychromasia 1+ Hypochromasia PRESENT Basophilic Stippling 1+ Sodium Level 135 mmol/L Potassium Level 4.5 mmol/L Chloride Level 104 mmol/L Carbon Dioxide Level 23 mmol/L Anion Gap 8.0 mmol/L Blood Urea Nitrogen 60 mg/dl Creatinine 2.00 mg/dl Est Creatinine Clear Calc Drug Dose 31.9 ml/min Estimated GFR () 31.1 Estimated GFR (Non- 26.8 BUN/Creatinine Ratio 29.8 Random Glucose 92 mg/dl Calcium Level 9.0 mg/dl Magnesium Level 3.0 mg/dl Assessment & Plan ileana on ckd stage 3-baseline creatinine of 1.1 to 1.3 and now 2. urine sodium <5 , started on 100grams of albumin and creatinine now up to 2. will add midodrine and octreotide. appears to have hepatorenal syndrome. no indication for dialysis at this time. lethargy-ammonia levels are being repeated. on lactulose.
--- NOTE | 2016-08-01 13:07 | GASTROENTEROLOGY PROGRESS NOTE ---
DATE: 08/01/2016 AGE: 60. SEX: Female. RACE: . SUBJECTIVE: I had the pleasure of seeing Pat Childress back at her bedside today. She currently denies any abdominal pain, fevers, chills, nausea, vomiting, hematemesis, melena, hematochezia or jaundice. She states that she feels less confused and did have a bowel movement overnight. A repeat ammonia level was pending at the time that I saw the patient this morning. She was started on Xifaxan therapy yesterday and states that she has had a good p.o. intake. She denies any further complaints. PHYSICAL EXAMINATION: VITAL SIGNS: Include a temp of 36.7, pulse 69, respirations 16, blood pressure 90/50, and pulse ox 92% on 2 liters via nasal cannula. GENERAL: She is asleep, but arousable, cooperative, chronic ill appearing, in no acute distress. CHEST: Clear to auscultation bilaterally. CARDIOVASCULAR SYSTEM: Regular rate and rhythm. ABDOMEN: Soft, nontender, and nondistended. Positive bowel sounds. LABORATORY STUDIES: From today include a sodium 135, potassium 4.5, chloride 104, bicarbonate 23, BUN 60, creatinine 2.0, and blood glucose 92. RADIOGRAPHIC STUDIES: Include chest x-ray from yesterday, which showed mild cardiac enlargement. No evidence of heart failure. Trace right pleural effusion. No airspace consolidation typical for pneumonia. IMPRESSION: This is a 60-year-old female status post repair of a left humeral fracture with a history of primary biliary cholangitis with cirrhosis and a history of hepatic encephalopathy with increased Creatinine on morning labs. PLAN: Discussed case with Dr. Thakkar and agree with addition of Midodrine and further albumin therapy for questionable type 2 HRS. In regards to her hepatic encephalopathy, I would continue her on lactulose 15 grams p.o. t.i.d., titrating to have 3 bowel movements per day. I would also continue her on Xifaxan 550 mg p.o. b.i.d. I did advise the patient to remain on these medications as an outpatient due to her liver disease history. She will follow up with [facility] hepatology in [place] when she is discharged. She should continue on her ursodiol 600 mg p.o. b.i.d. I will follow her clinical course and [facility] will resume her care on Tuesday. Once again, thanks for allowing me to participate in the care of this patient. If you have any further questions, please do not hesitate in contacting me. [place]
[2016-08-01] MEDS: HEPARIN SOD 5000 UNIT/0.5 ML CARP SQ SCH ×2 (15:23→21:44)
[2016-08-01] MEDS: MIDODRINE 2.5 MG TAB PO SCH ×2 (15:24→16:36)
[2016-08-01] MEDS: OCTREOTIDE ACETATE 100 MCG/ML VIAL SQ SCH ×2 (15:26→22:23)
[2016-08-02] VITALS (10 sets, daily range): BP systolic 98–112; BP diastolic 44–57; PULSE 66–82; TEMP 36.6–37.2; O2SAT 92–98
--- NOTE | 2016-08-02 00:02 | Progress Note ---
Medicine Progress Note Date & Time of Visit: Aug 01, 2016 at 15:15. 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 Objective Last 8 Hrs Date Time Temp Pulse Resp B/P (MAP) Pulse Ox O2 Delivery O2 Flow Rate FiO2 08/01/16 14:30 77 16 95 Nasal Cannula 2.0 08/01/16 11:47 69 90/50 (63) 08/01/16 07:18 68 16 92 Nasal Cannula 2.0 Physical Exam: GEN: WNWD, in no acute distress but appears lethargic, she is oriented and making sense but has a hard time keeping her eyes open, stating she if very tired. HEENT: NC/AT, PERRL, normal sclerae CARDIO: reg rate, S1/2 heard without m/g/r LUNGS: CTA bilaterally but limited exam as patient was weak and unable to follow directions well, no crackles, rales or wheezes, good diaphragmatic excursion ABD: soft, non-tender, non-distended, no rebound or guarding EXTREMITY: RP and DP palpable 2+ bilat, no LE swelling or edema, extremities are warm and well-perfused NEURO: unable to assess as patient is so lethargic MUSC: unable to assess as patient is so lethargic SKIN: warm and dry Laboratory Results: Medical Problems: (1) Cirrhosis Status: Chronic (2) Osteoarthritis Status: Chronic Last 24 Hours Test 08/01/16 08:13 08/01/16 12:50 White Blood Count 12.22 K/uL Red Blood Count 2.75 M/uL Hemoglobin 8.7 g/dL Hematocrit 25.7 % Mean Corpuscular Volume 93.5 fL Mean Corpuscular Hemoglobin 31.6 pg Mean Corpuscular Hemoglobin Concent 33.9 g/dl Platelet Count 114 K/uL Mean Platelet Volume 11.1 fL Neutrophils (%) (Auto) 84.9 % Lymphocytes (%) (Auto) 6.7 % Monocytes (%) (Auto) 6.6 % Eosinophils (%) (Auto) 0.9 % Basophils (%) (Auto) 0.1 % Neutrophils # (Auto) 10.37 K/uL Lymphocytes # (Auto) 0.82 K/uL Monocytes # (Auto) 0.81 K/uL Eosinophils # (Auto) 0.11 K/uL Basophils # (Auto) 0.01 K/uL RDW Standard Deviation 53.3 fL RDW Coefficient of Variation 15.9 % Immature Granulocyte % (Auto) 0.8 % Immature Granulocyte # (Auto) 0.10 K/uL Polychromasia 1+ Hypochromasia PRESENT Basophilic Stippling 1+ Sodium Level 135 mmol/L Potassium Level 4.5 mmol/L Chloride Level 104 mmol/L Carbon Dioxide Level 23 mmol/L Anion Gap 8.0 mmol/L Blood Urea Nitrogen 60 mg/dl Creatinine 2.00 mg/dl Est Creatinine Clear Calc Drug Dose 31.9 ml/min Estimated GFR () 31.1 Estimated GFR (Non- 26.8 BUN/Creatinine Ratio 29.8 Random Glucose 92 mg/dl Calcium Level 9.0 mg/dl Magnesium Level 3.0 mg/dl Ammonia 22.0 umol/L Assessment & Plan 60 year old female with history of Primary Biliary Cirrhosis, 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 Right humeral fracture, left radial fracture secondary to recurrent mechanical fall ambulatory dysfunction: s/p ORIF on 07/28. Pain is well controlled. DVT prophy with heparin per Ortho. 2. Altered mental status-poss thought 2/2 hepatic encephalopathy vs adverse med reaction from narcotic use in setting of acute renal failure vs hospital delirium. Hyperammonemia. Ammonia level decreased from 78 yesterday to 22. Pt also had two large BMs after lactulose use. Oxy was decreased to q12. Trazodone and sertraline were held. Hold benzos or other narcotics. 3. HRS-cont treatment with midodrine and octreotide per Nephro. 4. Hypoxic respiratory failure, poss chronic: CT chest saw some bilateral infiltrates vs atelectasis. VQ scan revealed low prob PE. TTE is WNL. Repeat CXR of 07/31 (latest) reveals no pneumonia. 5. Acute on chronic renal failure-CKD III)-baseline creat 1.1, creat worsened to 2.0 with albumin 25%. Holding Lasix and Aldactone 2/2 acute renal failure. Appreciate Nephro recs. 6. h/o PBC-pt is not tranplant candidate, continues on immunomodulator therapy. History of primary biliary cirrhosis 7. Chronic constrictive pericarditis, stable on chronic steroid therapy. DVT proph: Heparin Full COde Dispo-to telemetry Alexia Aldana DO [facility] Hospitalist. Current Inpatient Medications: Current Inpatient Medications Medications (Trade) Dose Ordered Sig/Michael Route Start Time Stop Time Status Last Admin Dose Admin Prednisone (PredniSONE TAB) 1 mg QAM PO 07/27/16 09:00 08/26/16 08:59 08/01/16 10:29 1 MG Gabapentin (Neurontin Cap) 300 mg TID PO 07/26/16 21:00 08/25/16 20:59 07/31/16 22:38 300 MG Ursodiol (Actigall Cap) 600 mg BIDM PO 07/26/16 19:02 08/25/16 19:01 08/01/16 10:25 600 MG Propranolol HCl (Inderal Tab) 10 mg QAM PO 07/27/16 09:00 08/26/16 08:59 07/31/16 09:23 10 MG Cetirizine HCl (zyrTEC TAB) 10 mg DAILY PRN PO 07/26/16 19:15 08/25/16 19:14 07/31/16 09:22 10 MG Albuterol/ Ipratropium (Duoneb) 3 ml Q2H PRN INH 07/26/16 20:30 08/25/16 20:29 Guaifenesin (Mucinex Contr Rel Tab) 600 mg Q12 PO 07/26/16 21:00 08/25/16 20:59 08/01/16 10:26 600 MG Levalbuterol (Xopenex 1.25MG/ 0.5ML Neb) 1.25 mg Q6R INH 07/27/16 10:00 08/26/16 09:59 08/01/16 14:30 1.25 MG Metoclopramide HCl (Reglan Inj) 10 mg Q6H PRN IV 07/28/16 21:30 08/27/16 21:29 Ondansetron HCl (Zofran Inj) 4 mg Q6H PRN IV 07/28/16 21:30 08/27/16 21:29 Al Hydroxide/Mg Hydroxide (Maalox Susp) 30 ml Q4H PRN PO 07/28/16 21:30 08/27/16 21:29 Pantoprazole Sodium (Protonix Tab) 40 mg QAM PO 07/29/16 09:00 08/28/16 08:59 08/01/16 10:28 40 MG Miscellaneous Medication (No Nsaids) 1 ea UD N/A 07/28/16 21:30 08/27/16 21:29 Naloxone HCl (Narcan Inj) 0.1 mg Q2M PRN IV 07/28/16 21:30 08/27/16 21:29 Magnesium Hydroxide (Milk Of Magnesia Susp) 30 ml Q6H PRN PO 07/28/16 21:30 08/27/16 21:29 07/30/16 16:27 30 ML Multivitamins (Multivitamin Tab) 1 tab DAILY PO 07/29/16 09:00 08/28/16 08:59 08/01/16 10:27 1 TAB Ferrous Gluconate (Ferrous Gluconate Tab) 324 mg TIDM PO 07/29/16 08:30 08/28/16 08:29 08/01/16 10:25 324 MG Enteral Nutritional Formula (Boost) 1 can TIDM PO 07/29/16 21:00 08/28/16 20:59 07/31/16 12:26 1 CAN Miscellaneous (Ocaliva) 5 mg Fr@0900 PO 07/30/16 09:00 08/29/16 08:59 07/30/16 10:28 5 MG Aspirin (Ecotrin Tab) 81 mg QAM PO 07/31/16 09:00 08/30/16 08:59 08/01/16 10:26 81 MG Albumin Human (Albumin 25%) 25 gm QID IV 07/31/16 09:00 08/03/16 08:59 08/01/16 10:15 25 GM Oxycodone HCl (Roxicodone Immediate Rel Tab) 5 mg Q12H PRN PO 07/31/16 18:00 08/09/16 17:59 Lactulose (Chronulac Syrup) 15 gm TID PO 07/31/16 14:00 08/30/16 13:59 08/01/16 10:26 15 GM Rifaximin (Xifaxan Tab) 550 mg BID PO 07/31/16 21:00 08/30/16 20:59 08/01/16 10:28 550 MG Heparin Sodium (Porcine) (Heparin Sq 5000 Unit/0.5ml) 5,000 unit Q8 SQ 08/01/16 14:00 08/31/16 13:59 Midodrine (Proamatine Tab) 7.5 mg TID@08,12,17 PO 08/01/16 13:00 08/31/16 12:59 Octreotide Acetate (Sandostatin Inj) 100 mcg Q8H SQ 08/01/16 14:00 08/31/16 13:59
[2016-08-02] MEDS: LEVALBUTEROL 1.25MG/0.5ML NEB INH SCH ×4 (01:55→19:49)
[2016-08-02] MEDS: HEPARIN SOD 5000 UNIT/0.5 ML CARP SQ SCH ×3 (06:09→22:01)
[2016-08-02] MEDS: OCTREOTIDE ACETATE 100 MCG/ML VIAL SQ SCH ×3 (06:09→21:59)
--- NOTE | 2016-08-02 07:41 | Pulmonology Progress Note ---
Pulmonary Progress Note Date of Service Aug 01, 2016. Attending Dr. Poole Subjective THis is a delayed entry I saw the patient on 08/01/16 at 16:00 she was just moved to PCU The patient has primary billiary cirrhosis and was admitted post fall and fracture of the Left upper extremity. She was having hypoxia and SOB prior to the surgery. VQ scan showed low probability for PE and the echocardiogram did not show RV strain. She is a little confused today and drowsy and she says she is still SOB like the day she fell. She says she never had SOB before she fell. ABG performed and shows no hypercarbia. She does have an increased A-a gradient. I saw She really does not use the incentive spirometer and needs to be coached. Ammonia has normalized but the patient is getting more drowsy. She still answers questions but there is a delay to respond. She says her breathing is fine and has not changed over the last few days. Objective GA not in cute distress drowsy and arousable and when aroused answers questions appropriately but there is a delay in response and she struggles to think HENT no LN no JVD lungs decreased air entry right base, rhales that resolve with incentive spirometry on the left side. heart nl s1 s2 abdomen soft non tender BS sluggish Ext RUE in cast minimal ankle edema bilaterally no clubbing no cyanosis' neurologic no asterexis Assessment & Plan 60 yo female with primary billiary cirrhosis s/p fall down and ORIF RUE with hypoxia chronic elevated hemidiaphragm (she relates it to the onset of primary biliary cirrhosis) The hypoxia is multifactorial. It is probably related to elevated hemidiaphragm together with an element of atelectasis. There is no orthodeoxia or platypnea by exam or history, which means portopulmonary hypertension is not a big component in the picture. She may have developed a pulmonary fat embolus and those are not necessarily visualized on VQ scan. UE usually produce less critical fat emboli if at all. The therapy is supportive Agree with O2, bronchodialtors, steroid (Prednisone) - controversial in fat emboli but not harmful. encourage aggressive incentive spirometry and ambulation agree with lactulose, rifaxamin.NH3 normalized there is no hypercapnea but she remains drowsy ? sepsis minimize sedatives heparin SC for DVT prophylaxis cirrhotic patients are at increased risk of DVT. Will send procalcitonin and if elevated will send blood cultures. there is no signs of ascites Data Medications: Current Inpatient Medications Medications (Trade) Dose Ordered Sig/Michael Route Start Time Stop Time Status Last Admin Dose Admin Prednisone (PredniSONE TAB) 1 mg QAM PO 07/27/16 09:00 08/26/16 08:59 08/01/16 10:29 1 MG Gabapentin (Neurontin Cap) 300 mg TID PO 07/26/16 21:00 08/25/16 20:59 08/01/16 21:37 300 MG Ursodiol (Actigall Cap) 600 mg BIDM PO 07/26/16 19:02 08/25/16 19:01 08/01/16 16:36 600 MG Propranolol HCl (Inderal Tab) 10 mg QAM PO 07/27/16 09:00 08/26/16 08:59 07/31/16 09:23 10 MG Cetirizine HCl (zyrTEC TAB) 10 mg DAILY PRN PO 07/26/16 19:15 08/25/16 19:14 07/31/16 09:22 10 MG Albuterol/ Ipratropium (Duoneb) 3 ml Q2H PRN INH 07/26/16 20:30 08/25/16 20:29 Guaifenesin (Mucinex Contr Rel Tab) 600 mg Q12 PO 07/26/16 21:00 08/25/16 20:59 08/01/16 21:37 600 MG Levalbuterol (Xopenex 1.25MG/ 0.5ML Neb) 1.25 mg Q6R INH 07/27/16 10:00 08/26/16 09:59 08/02/16 07:21 1.25 MG Metoclopramide HCl (Reglan Inj) 10 mg Q6H PRN IV 07/28/16 21:30 08/27/16 21:29 Ondansetron HCl (Zofran Inj) 4 mg Q6H PRN IV 07/28/16 21:30 08/27/16 21:29 Al Hydroxide/Mg Hydroxide (Maalox Susp) 30 ml Q4H PRN PO 07/28/16 21:30 08/27/16 21:29 Pantoprazole Sodium (Protonix Tab) 40 mg QAM PO 07/29/16 09:00 08/28/16 08:59 08/01/16 10:28 40 MG Miscellaneous Medication (No Nsaids) 1 ea UD N/A 07/28/16 21:30 08/27/16 21:29 Naloxone HCl (Narcan Inj) 0.1 mg Q2M PRN IV 07/28/16 21:30 08/27/16 21:29 Magnesium Hydroxide (Milk Of Magnesia Susp) 30 ml Q6H PRN PO 07/28/16 21:30 08/27/16 21:29 07/30/16 16:27 30 ML Multivitamins (Multivitamin Tab) 1 tab DAILY PO 07/29/16 09:00 08/28/16 08:59 08/01/16 10:27 1 TAB Ferrous Gluconate (Ferrous Gluconate Tab) 324 mg TIDM PO 07/29/16 08:30 08/28/16 08:29 08/01/16 16:37 324 MG Enteral Nutritional Formula (Boost) 1 can TIDM PO 07/29/16 21:00 08/28/16 20:59 08/01/16 16:44 1 CAN Miscellaneous (Ocaliva) 5 mg Fr@0900 PO 07/30/16 09:00 08/29/16 08:59 07/30/16 10:28 5 MG Aspirin (Ecotrin Tab) 81 mg QAM PO 07/31/16 09:00 08/30/16 08:59 08/01/16 10:26 81 MG Albumin Human (Albumin 25%) 25 gm QID IV 07/31/16 09:00 08/03/16 08:59 08/01/16 21:38 25 GM Oxycodone HCl (Roxicodone Immediate Rel Tab) 5 mg Q12H PRN PO 07/31/16 18:00 08/09/16 17:59 Lactulose (Chronulac Syrup) 15 gm TID PO 07/31/16 14:00 08/30/16 13:59 08/01/16 21:37 15 GM Rifaximin (Xifaxan Tab) 550 mg BID PO 07/31/16 21:00 08/30/16 20:59 08/01/16 21:37 550 MG Heparin Sodium (Porcine) (Heparin Sq 5000 Unit/0.5ml) 5,000 unit Q8 SQ 08/01/16 14:00 08/31/16 13:59 08/02/16 06:09 5,000 UNIT Midodrine (Proamatine Tab) 7.5 mg TID@08,12,17 PO 08/01/16 13:00 08/31/16 12:59 08/01/16 16:36 7.5 MG Octreotide Acetate (Sandostatin Inj) 100 mcg Q8H SQ 08/01/16 14:00 08/31/16 13:59 08/02/16 06:09 100 MCG Vital Signs: Date Time Temp Pulse Resp B/P (MAP) Pulse Ox O2 Delivery O2 Flow Rate FiO2 08/02/16 07:21 77 16 96 Nasal Cannula 2.0 08/02/16 04:00 Nasal Cannula 2.0 08/02/16 04:00 37.2 70 18 103/48 (66) 96 Nasal Cannula 2.0 08/02/16 01:55 70 16 96 Nasal Cannula 2.0 08/02/16 00:00 37.1 70 18 106/57 (73) 97 Nasal Cannula 2.0 08/02/16 00:00 Nasal Cannula 2.0 08/01/16 20:00 Nasal Cannula 2.0 08/01/16 19:48 36.7 74 18 110/53 (72) 94 Nasal Cannula 2.0 08/01/16 18:52 74 18 96 Nasal Cannula 2.0 08/01/16 16:44 37.1 77 19 138/66 (90) 95 Nasal Cannula 2.0 08/01/16 16:00 Nasal Cannula 2.0 08/01/16 15:49 38.0 72 20 94 2.0 08/01/16 14:30 77 16 95 Nasal Cannula 2.0 08/01/16 11:47 69 90/50 (63) 08/01/16 09:15 Nasal Cannula 2.0 Laboratory Results: Last 24 Hours Test 08/01/16 08:13 08/01/16 12:50 White Blood Count 12.22 K/uL Red Blood Count 2.75 M/uL Hemoglobin 8.7 g/dL Hematocrit 25.7 % Mean Corpuscular Volume 93.5 fL Mean Corpuscular Hemoglobin 31.6 pg Mean Corpuscular Hemoglobin Concent 33.9 g/dl Platelet Count 114 K/uL Mean Platelet Volume 11.1 fL Neutrophils (%) (Auto) 84.9 % Lymphocytes (%) (Auto) 6.7 % Monocytes (%) (Auto) 6.6 % Eosinophils (%) (Auto) 0.9 % Basophils (%) (Auto) 0.1 % Neutrophils # (Auto) 10.37 K/uL Lymphocytes # (Auto) 0.82 K/uL Monocytes # (Auto) 0.81 K/uL Eosinophils # (Auto) 0.11 K/uL Basophils # (Auto) 0.01 K/uL RDW Standard Deviation 53.3 fL RDW Coefficient of Variation 15.9 % Immature Granulocyte % (Auto) 0.8 % Immature Granulocyte # (Auto) 0.10 K/uL Polychromasia 1+ Hypochromasia PRESENT Basophilic Stippling 1+ Sodium Level 135 mmol/L Potassium Level 4.5 mmol/L Chloride Level 104 mmol/L Carbon Dioxide Level 23 mmol/L Anion Gap 8.0 mmol/L Blood Urea Nitrogen 60 mg/dl Creatinine 2.00 mg/dl Est Creatinine Clear Calc Drug Dose 31.9 ml/min Estimated GFR () 31.1 Estimated GFR (Non- 26.8 BUN/Creatinine Ratio 29.8 Random Glucose 92 mg/dl Calcium Level 9.0 mg/dl Magnesium Level 3.0 mg/dl Ammonia 22.0 umol/L
[2016-08-02] MEDS: BOOST VANILLA PO SCH ×6 (08:37→16:45)
[2016-08-02] MEDS: GUAIFENESIN 600 MG TABCR PO SCH ×2 (08:38→21:58)
[2016-08-02] MEDS: ASPIRIN 81 MG ECTAB PO SCH (08:38)
[2016-08-02] MEDS: MIDODRINE 2.5 MG TAB PO SCH ×3 (08:39→17:15)
[2016-08-02] MEDS: FERROUS GLUCONATE 324 MG TAB PO SCH ×3 (08:39→17:16)
[2016-08-02] MEDS: MULTIVITAMIN TAB PO SCH (08:40)
[2016-08-02] MEDS: RIFAXIMIN TAB 550 MG TAB PO SCH ×2 (08:40→21:58)
[2016-08-02] MEDS: URSODIOL 300 MG CAP PO SCH ×2 (08:41→17:16)
[2016-08-02] MEDS: ALBUMIN HUMAN 25% 12.5 GM/50 ML VIAL IV SCH ×4 (08:42→23:12)
[2016-08-02] MEDS: GABAPENTIN 300 MG CAP PO SCH ×3 (08:43→21:58)
[2016-08-02] MEDS: PROPRANOLOL HCL 10 MG TAB PO SCH (08:44)
[2016-08-02] MEDS: LACTULOSE SYRUP 10 GM/15 ML BTL 473 ML PO SCH ×3 (08:47→21:00)
[2016-08-02 09:22] LABS: BASO % 0.1 %; BASO ABS # 0.01 K/uL (0-0.2); COMPLETE YES; EOS % 1.9 %; HEMATOCRIT 29.9 % (37-47); LYMPH % 5.7 %; LYMPH ABS # 0.82 K/uL (1.2-3.4); MEAN CELL VOLUME 95.2 fL (80-100); MEAN CORPUSCULAR HEMOGLOBIN 30.9 pg (25-34); MEAN CORPUSCULAR HGB CONC 32.4 g/dl (32-36); MEAN PLATELET VOLUME 11.6 fL (7.4-10.4); MONO % 7.6 %; NEUT % 83.7 %; PLATELET COUNT 134 K/uL (130-400); RED BLOOD COUNT 3.14 M/uL (4.2-5.4); WHITE BLOOD COUNT 14.38 K/uL (4.8-10.8)
--- NOTE | 2016-08-02 09:36 | Pulmonology Progress Note ---
Pulmonary Progress Note Date of Service Aug 02, 2016. Attending Dr. Pulido Subjective Denies any dyspnea. Reports some abdominal discomfort with deep inspiration. Denies any wheeze. Expressed hunger. Objective Patient admitted 07/26/16 s/p fall with right humerus fracture and hypoxia. PMHx includes: primary biliary cirrhosis s/p TIPS, portal HTN, h.o constrictive pericarditis - chronic low-dose steroid: 1mg prednisone, formally on O2 but since discontinued, h/o recurrent rt pleural effusion, recurrent mechanical falls, h/o chronic anemia, CKD III, h/o rib fx, chronic elevation of hemidiaphragm Patient history notable for fall recurrent falls with h/o left radial fx a few weeks prior to admission. Additionally, she did report h/o marginal O2 - chronic. [employer] post-fall, she sustained fracture to the proximal right humeral head and neck. Imaging also notable for ascites and RML and RLL airspace opacities with bronchograms. Recent history notable for increased confusion and cough productive of clear sputum. In the ER she was hypoxic and required titrated O2. Chest CT 07/27/16: mild bibasilar infiltrative and or atelectatic change -small amount of perihepatic ascites. VQ scan 07/27/16: very low probability for PE. ABG consistent with + AA gradient - no hypercarbia. Echocardiogram: EF: 60-65%, mild dilation of LA, mild TR, no indication of pulmonary HTN - no shunt 07/28 she underwent successful repair of right proximal humerus displaced fracture and left distal radius fracture. She tolerated the procedure well. Hypoxia felt to be multifactorial secondary to hepatopulmonary syndrome, atelectasis and harvey-diaphragm insufficiency ? fat embolus. She did remain somewhat drowsy - no CO2 retention on ABG (07/31: 7.41/37-2LPM//). Ammonia: 78. Lactulose and rifaximin started. CXR 07/31/16: mild cardiac enlargement without radiographic evidence of failure. Trace right effusion. No airspace consolidation. Today: - Ot: 96% - 1-2LPM - Afebrile, HD stable - WBC: 14.38, Hgb/Hct: 9.7/29.9 - increase all line - Cr: 2.1: increased - pCt: 1.38 Physical Exam: Constitutional: Ill appearing lethargic female lying in hospital bed. No acute distress Head: + facial symmetry Eyes: EOMi, PERRLA, no injection Mouth: dry lips, dentures in place. No visible erythema Respiratory: non-labored respirations. Mobile coarse rales bilaterally. Shifting with cough. No wheeze. Poor inspiratory effort on incentive spirometry CV: RRR, no MRG. Warm and perfused peripherally MSK/Extremities: moving symmetrically. RUE in sling and wrap. LUE in [place]. Neurologic: Somnolent. Answers questions appropriately. Assessment & Plan 60 yo female admitted s/p fall down and ORIF RUE with hypoxia - no CO2 retention , PBC, chronic elevated hemidiaphragm (she relates it to the onset of primary biliary cirrhosis) and elevated ammonia: - Hypoxia is improving - reduced respiratory effort in the setting of lethargy and AMS - this is my first time seeing her but per chart her mental status is slowly improving. - Repeat BC and UA + culture - Aspiration precautions - Patient and encouraged to continue bedside spirometry, encourage cough and frequent positional changes Patient reviewed and plan agreed with. Data Medications: Current Inpatient Medications Medications (Trade) Dose Ordered Sig/Michael Route Start Time Stop Time Status Last Admin Dose Admin Prednisone (PredniSONE TAB) 1 mg QAM PO 07/27/16 09:00 08/26/16 08:59 08/02/16 08:40 1 MG Gabapentin (Neurontin Cap) 300 mg TID PO 07/26/16 21:00 08/25/16 20:59 08/02/16 08:43 300 MG Ursodiol (Actigall Cap) 600 mg BIDM PO 07/26/16 19:02 08/25/16 19:01 08/02/16 08:41 600 MG Propranolol HCl (Inderal Tab) 10 mg QAM PO 07/27/16 09:00 08/26/16 08:59 08/02/16 08:44 10 MG Cetirizine HCl (zyrTEC TAB) 10 mg DAILY PRN PO 07/26/16 19:15 08/25/16 19:14 07/31/16 09:22 10 MG Albuterol/ Ipratropium (Duoneb) 3 ml Q2H PRN INH 07/26/16 20:30 08/25/16 20:29 Guaifenesin (Mucinex Contr Rel Tab) 600 mg Q12 PO 07/26/16 21:00 08/25/16 20:59 08/02/16 08:38 600 MG Levalbuterol (Xopenex 1.25MG/ 0.5ML Neb) 1.25 mg Q6R INH 07/27/16 10:00 08/26/16 09:59 08/02/16 07:21 1.25 MG Metoclopramide HCl (Reglan Inj) 10 mg Q6H PRN IV 07/28/16 21:30 08/27/16 21:29 Ondansetron HCl (Zofran Inj) 4 mg Q6H PRN IV 07/28/16 21:30 08/27/16 21:29 Al Hydroxide/Mg Hydroxide (Maalox Susp) 30 ml Q4H PRN PO 07/28/16 21:30 08/27/16 21:29 Pantoprazole Sodium (Protonix Tab) 40 mg QAM PO 07/29/16 09:00 08/28/16 08:59 08/01/16 10:28 40 MG Miscellaneous Medication (No Nsaids) 1 ea UD N/A 07/28/16 21:30 08/27/16 21:29 Naloxone HCl (Narcan Inj) 0.1 mg Q2M PRN IV 07/28/16 21:30 08/27/16 21:29 Magnesium Hydroxide (Milk Of Magnesia Susp) 30 ml Q6H PRN PO 07/28/16 21:30 08/27/16 21:29 07/30/16 16:27 30 ML Multivitamins (Multivitamin Tab) 1 tab DAILY PO 07/29/16 09:00 08/28/16 08:59 08/02/16 08:40 1 TAB Ferrous Gluconate (Ferrous Gluconate Tab) 324 mg TIDM PO 07/29/16 08:30 08/28/16 08:29 08/02/16 08:39 324 MG Enteral Nutritional Formula (Boost) 1 can TIDM PO 07/29/16 21:00 08/28/16 20:59 08/02/16 08:37 1 CAN Miscellaneous (Ocaliva) 5 mg Fr@0900 PO 07/30/16 09:00 08/29/16 08:59 07/30/16 10:28 5 MG Aspirin (Ecotrin Tab) 81 mg QAM PO 07/31/16 09:00 08/30/16 08:59 08/02/16 08:38 81 MG Albumin Human (Albumin 25%) 25 gm QID IV 07/31/16 09:00 08/03/16 08:59 08/02/16 08:42 25 GM Oxycodone HCl (Roxicodone Immediate Rel Tab) 5 mg Q12H PRN PO 07/31/16 18:00 08/09/16 17:59 Lactulose (Chronulac Syrup) 15 gm TID PO 07/31/16 14:00 08/30/16 13:59 08/01/16 21:37 15 GM Rifaximin (Xifaxan Tab) 550 mg BID PO 07/31/16 21:00 08/30/16 20:59 08/02/16 08:40 550 MG Heparin Sodium (Porcine) (Heparin Sq 5000 Unit/0.5ml) 5,000 unit Q8 SQ 08/01/16 14:00 08/31/16 13:59 08/02/16 06:09 5,000 UNIT Midodrine (Proamatine Tab) 7.5 mg TID@,, PO 08/01/16 13:00 08/31/16 12:59 08/02/16 08:39 7.5 MG Octreotide Acetate (Sandostatin Inj) 100 mcg Q8H SQ 08/01/16 14:00 08/31/16 13:59 08/02/16 06:09 100 MCG Vital Signs: Date Time Temp Pulse Resp B/P (MAP) Pulse Ox O2 Delivery O2 Flow Rate FiO2 08/02/16 07:51 36.7 69 18 112/44 (66) 96 Nasal Cannula 2.0 08/02/16 07:21 77 16 96 Nasal Cannula 2.0 08/02/16 04:00 Nasal Cannula 2.0 08/02/16 04:00 37.2 70 18 103/48 (66) 96 Nasal Cannula 2.0 08/02/16 01:55 70 16 96 Nasal Cannula 2.0 08/02/16 00:00 37.1 70 18 106/57 (73) 97 Nasal Cannula 2.0 08/02/16 00:00 Nasal Cannula 2.0 08/01/16 20:00 Nasal Cannula 2.0 08/01/16 19:48 36.7 74 18 110/53 (72) 94 Nasal Cannula 2.0 08/01/16 18:52 74 18 96 Nasal Cannula 2.0 08/01/16 16:44 37.1 77 19 138/66 (90) 95 Nasal Cannula 2.0 08/01/16 16:00 Nasal Cannula 2.0 08/01/16 15:49 38.0 72 20 94 2.0 08/01/16 14:30 77 16 95 Nasal Cannula 2.0 08/01/16 11:47 69 90/50 (63) Laboratory Results: Last 24 Hours Test 08/01/16 12:50 08/02/16 07:41 08/02/16 07:51 Ammonia 22.0 umol/L White Blood Count 14.38 K/uL Red Blood Count 3.14 M/uL Hemoglobin 9.7 g/dL Hematocrit 29.9 % Mean Corpuscular Volume 95.2 fL Mean Corpuscular Hemoglobin 30.9 pg Mean Corpuscular Hemoglobin Concent 32.4 g/dl Platelet Count 134 K/uL Mean Platelet Volume 11.6 fL Neutrophils (%) (Auto) 83.7 % Lymphocytes (%) (Auto) 5.7 % Monocytes (%) (Auto) 7.6 % Eosinophils (%) (Auto) 1.9 % Basophils (%) (Auto) 0.1 % Neutrophils # (Auto) 12.02 K/uL Lymphocytes # (Auto) 0.82 K/uL Monocytes # (Auto) 1.10 K/uL Eosinophils # (Auto) 0.28 K/uL Basophils # (Auto) 0.01 K/uL RDW Standard Deviation 55.9 fL RDW Coefficient of Variation 16.2 % Immature Granulocyte % (Auto) 1.0 % Immature Granulocyte # (Auto) 0.15 K/uL
[2016-08-02] MEDS: PANTOprazole SOD 40 MG TAB PO SCH (09:51)
[2016-08-02 09:58] LABS: CALCIUM 9.1 mg/dl (8.5-10.1); CREATININE 2.1 mg/dl (0.60-1.20); MAGNESIUM 3.2 mg/dl (1.8-2.4)
--- NOTE | 2016-08-02 10:47 | Gastroenterology Progress Note ---
Progress Note Date of Service: Aug 02, 2016 Subjective Pt evaluation today including: conversation w/ patient, physical exam, chart review, lab review Pt was seen and evaluated this AM. Denies abdominal pain, fevers, chills, nausea , vomiting, hematemesis, melena, hematochezia or jaundice. Lactulose and Xifaxan therapy were restarted for suspected hepatic encephalopathy - repeat ammonia 22. Review of Systems Constitutional: No fever, No chills Cardiac: No chest pain Abdomen: + diarrhea (loose stool after lactulose), No pain, No nausea, No vomiting Medications Current Inpatient Medications Medications (Trade) Dose Ordered Sig/Michael Route Start Time Stop Time Status Last Admin Dose Admin Prednisone (PredniSONE TAB) 1 mg QAM PO 07/27/16 09:00 08/26/16 08:59 08/02/16 08:40 1 MG Gabapentin (Neurontin Cap) 300 mg TID PO 07/26/16 21:00 08/25/16 20:59 08/02/16 08:43 300 MG Ursodiol (Actigall Cap) 600 mg BIDM PO 07/26/16 19:02 08/25/16 19:01 08/02/16 08:41 600 MG Propranolol HCl (Inderal Tab) 10 mg QAM PO 07/27/16 09:00 08/26/16 08:59 08/02/16 08:44 10 MG Cetirizine HCl (zyrTEC TAB) 10 mg DAILY PRN PO 07/26/16 19:15 08/25/16 19:14 07/31/16 09:22 10 MG Albuterol/ Ipratropium (Duoneb) 3 ml Q2H PRN INH 07/26/16 20:30 08/25/16 20:29 Guaifenesin (Mucinex Contr Rel Tab) 600 mg Q12 PO 07/26/16 21:00 08/25/16 20:59 08/02/16 08:38 600 MG Levalbuterol (Xopenex 1.25MG/ 0.5ML Neb) 1.25 mg Q6R INH 07/27/16 10:00 08/26/16 09:59 08/02/16 07:21 1.25 MG Metoclopramide HCl (Reglan Inj) 10 mg Q6H PRN IV 07/28/16 21:30 08/27/16 21:29 Ondansetron HCl (Zofran Inj) 4 mg Q6H PRN IV 07/28/16 21:30 08/27/16 21:29 Al Hydroxide/Mg Hydroxide (Maalox Susp) 30 ml Q4H PRN PO 07/28/16 21:30 08/27/16 21:29 Pantoprazole Sodium (Protonix Tab) 40 mg QAM PO 07/29/16 09:00 08/28/16 08:59 08/02/16 09:51 40 MG Miscellaneous Medication (No Nsaids) 1 ea UD N/A 07/28/16 21:30 08/27/16 21:29 Naloxone HCl (Narcan Inj) 0.1 mg Q2M PRN IV 07/28/16 21:30 08/27/16 21:29 Magnesium Hydroxide (Milk Of Magnesia Susp) 30 ml Q6H PRN PO 07/28/16 21:30 08/27/16 21:29 07/30/16 16:27 30 ML Multivitamins (Multivitamin Tab) 1 tab DAILY PO 07/29/16 09:00 08/28/16 08:59 08/02/16 08:40 1 TAB Ferrous Gluconate (Ferrous Gluconate Tab) 324 mg TIDM PO 07/29/16 08:30 08/28/16 08:29 08/02/16 08:39 324 MG Enteral Nutritional Formula (Boost) 1 can TIDM PO 07/29/16 21:00 08/28/16 20:59 08/02/16 08:37 1 CAN Miscellaneous (Ocaliva) 5 mg Fr@0900 PO 07/30/16 09:00 08/29/16 08:59 07/30/16 10:28 5 MG Aspirin (Ecotrin Tab) 81 mg QAM PO 07/31/16 09:00 08/30/16 08:59 08/02/16 08:38 81 MG Albumin Human (Albumin 25%) 25 gm QID IV 07/31/16 09:00 08/03/16 08:59 08/02/16 08:42 25 GM Oxycodone HCl (Roxicodone Immediate Rel Tab) 5 mg Q12H PRN PO 07/31/16 18:00 08/09/16 17:59 Lactulose (Chronulac Syrup) 15 gm TID PO 07/31/16 14:00 08/30/16 13:59 08/01/16 21:37 15 GM Rifaximin (Xifaxan Tab) 550 mg BID PO 07/31/16 21:00 08/30/16 20:59 08/02/16 08:40 550 MG Heparin Sodium (Porcine) (Heparin Sq 5000 Unit/0.5ml) 5,000 unit Q8 SQ 08/01/16 14:00 08/31/16 13:59 08/02/16 06:09 5,000 UNIT Midodrine (Proamatine Tab) 7.5 mg TID@08,12,17 PO 08/01/16 13:00 08/31/16 12:59 08/02/16 08:39 7.5 MG Octreotide Acetate (Sandostatin Inj) 100 mcg Q8H SQ 08/01/16 14:00 08/31/16 13:59 08/02/16 06:09 100 MCG Objective Vital Signs Date Time Temp Pulse Resp B/P (MAP) Pulse Ox O2 Delivery O2 Flow Rate FiO2 08/02/16 07:51 36.7 69 18 112/44 (66) 96 Nasal Cannula 2.0 08/02/16 07:21 77 16 96 Nasal Cannula 2.0 08/02/16 04:00 Nasal Cannula 2.0 08/02/16 04:00 37.2 70 18 103/48 (66) 96 Nasal Cannula 2.0 08/02/16 01:55 70 16 96 Nasal Cannula 2.0 08/02/16 00:00 37.1 70 18 106/57 (73) 97 Nasal Cannula 2.0 08/02/16 00:00 Nasal Cannula 2.0 08/01/16 20:00 Nasal Cannula 2.0 08/01/16 19:48 36.7 74 18 110/53 (72) 94 Nasal Cannula 2.0 08/01/16 18:52 74 18 96 Nasal Cannula 2.0 08/01/16 16:44 37.1 77 19 138/66 (90) 95 Nasal Cannula 2.0 08/01/16 16:00 Nasal Cannula 2.0 08/01/16 15:49 38.0 72 20 94 2.0 08/01/16 14:30 77 16 95 Nasal Cannula 2.0 08/01/16 11:47 69 90/50 (63) Physical Exam Eyes: PERRL ENT: hearing grossly normal Neck: supple Respiratory/Chest: lungs clear Cardiovascular: regular rate, rhythm Abdomen: normal bowel sounds, soft, no organomegaly, no pulsatile mass Neurologic/Psych: alert, + disoriented (only oriented to self), + pertinent finding (pt is a poor historian and has poor recall of medications and conditions ) Laboratory Results Last 24 Hours Test 08/01/16 12:50 08/02/16 07:41 08/02/16 07:51 Ammonia 22.0 umol/L White Blood Count 14.38 K/uL Red Blood Count 3.14 M/uL Hemoglobin 9.7 g/dL Hematocrit 29.9 % Mean Corpuscular Volume 95.2 fL Mean Corpuscular Hemoglobin 30.9 pg Mean Corpuscular Hemoglobin Concent 32.4 g/dl Platelet Count 134 K/uL Mean Platelet Volume 11.6 fL Neutrophils (%) (Auto) 83.7 % Lymphocytes (%) (Auto) 5.7 % Monocytes (%) (Auto) 7.6 % Eosinophils (%) (Auto) 1.9 % Basophils (%) (Auto) 0.1 % Neutrophils # (Auto) 12.02 K/uL Lymphocytes # (Auto) 0.82 K/uL Monocytes # (Auto) 1.10 K/uL Eosinophils # (Auto) 0.28 K/uL Basophils # (Auto) 0.01 K/uL RDW Standard Deviation 55.9 fL RDW Coefficient of Variation 16.2 % Immature Granulocyte % (Auto) 1.0 % Immature Granulocyte # (Auto) 0.15 K/uL Sodium Level 135 mmol/L Potassium Level 4.0 mmol/L Chloride Level 103 mmol/L Carbon Dioxide Level 24 mmol/L Anion Gap 8.0 mmol/L Blood Urea Nitrogen 67 mg/dl Creatinine 2.10 mg/dl Est Creatinine Clear Calc Drug Dose 33.1 ml/min Estimated GFR () 29.3 Estimated GFR (Non- 25.3 BUN/Creatinine Ratio 32.0 Random Glucose 98 mg/dl Calcium Level 9.1 mg/dl Magnesium Level 3.2 mg/dl Procalcitonin 1.38 ng/ml Assessment and Plan Ms. Childress is status left humeral fracture repair with a history of primary biliary cholangitis with cirrhosis with increased Creatinine on morning labs over the weekend and hepatic encephalopathy. She had TIPS procedure 04/03/13. HRS monitor labs continue octreotide, midodrine and albumin appreciate nephrology input continue to hold diuretics (outpatient dosing was lasix 100 mg and aldactone 100 mg daily) 2 GM NA diet Primary Biliary Cirrhosis Lactulose 15 gm TID OK to titrate to 3 BMs daily Xifaxan 550 mg BID ursodiol 600 mg BID Ocalvia 5mg once a week Inderal 10 mg daily MELD 20 GI will follow. Please call with questions or concerns. ATTESTATION: I have performed a history and physical examination of this patient and reviewed the electronic record. Specifically, on physical examination she remains confused despite normal ammonia level. I have discussed the case with YVAN Rodriguez. The above note reflects my findings, conclusions, and recommendations. Antione Lopez MD
--- NOTE | 2016-08-02 21:07 | Progress Note ---
Medicine Progress Note Date & Time of Visit: Aug 02, 2016 at 1200. 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 Per nursing she tolerated most of her breakfast today. Objective Last 8 Hrs Date Time Temp Pulse Resp B/P (MAP) Pulse Ox O2 Delivery O2 Flow Rate FiO2 08/02/16 19:52 66 16 97 Nasal Cannula 2.0 08/02/16 19:43 37.2 68 16 109/50 (69) 98 Nasal Cannula 2.0 08/02/16 16:00 Nasal Cannula 2.0 08/02/16 15:36 37.2 70 18 98/56 (70) 95 Nasal Cannula 2.0 08/02/16 14:03 82 16 92 Nasal Cannula 2.0 Physical Exam: GEN: WNWD, in no acute distress but appears lethargic, she is oriented and making sense but has a hard time keeping her eyes open, stating she if very tired. HEENT: NC/AT, PERRL, normal sclerae CARDIO: reg rate, S1/2 heard without m/g/r LUNGS: CTA bilaterally but limited exam as patient was weak and unable to follow directions well, no crackles, rales or wheezes, good diaphragmatic excursion ABD: soft, non-tender, non-distended, no rebound or guarding EXTREMITY: RP and DP palpable 2+ bilat, no LE swelling or edema, extremities are warm and well-perfused NEURO: unable to assess as patient is so lethargic MUSC: unable to assess as patient is so lethargic SKIN: warm and dry Laboratory Results: 08/02/16 07:41 Red Blood Count 3.14, Mean Corpuscular Volume 95.2, Mean Corpuscular Hemoglobin 30.9, Mean Corpuscular Hemoglobin Concent 32.4, Mean Platelet Volume 11.6, Neutrophils (%) (Auto) 83.7, Lymphocytes (%) (Auto) 5.7, Monocytes (%) (Auto) 7.6, Eosinophils (%) (Auto) 1.9, Basophils (%) (Auto) 0.1, Neutrophils # (Auto) 12.02, Lymphocytes # (Auto) 0.82, Monocytes # (Auto) 1.10, Eosinophils # (Auto) 0.28, Basophils # (Auto) 0.01 08/02/16 07:41 Test 07/26/16 17:00 07/27/16 05:50 07/30/16 00:00 07/31/16 05:35 Prothrombin Time 12.8 SECONDS (9.0-12.0) Prothromb Time International Ratio 1.2 (0.9-1.1) Lipase 125 U/L (73-393) 25-Hydroxy Vitamin D Total 33.0 ng/ml (30-100) Urine Random Sodium < 5 mEq/L Total Bilirubin 3.0 mg/dl (0.2-1) Aspartate Amino Transf (AST/SGOT) 65 U/L (15-37) Alanine Aminotransferase (ALT/SGPT) 19 U/L (12-78) Alkaline Phosphatase 303 U/L (45-117) Total Protein 5.8 gm/dl (6.4-8.2) Albumin 2.4 gm/dl (3.4-5.0) Globulin 3.4 gm/dl (2.5-4.0) Albumin/Globulin Ratio 0.7 (0.9-2) Test 07/31/16 09:37 08/01/16 08:13 08/01/16 12:50 08/02/16 07:41 Arterial Blood pH 7.41 (7.35-7.45) Arterial Blood Partial Pressure CO2 37 mmHg (35-46) Arterial Blood Partial Pressure O2 77 mm/Hg (80-95) Arterial Blood HCO3 23 mmol/L (19-24) Arterial Blood Oxygen Saturation 94.9 % (90-95) Arterial Blood Base Excess -1.2 mEq/L (-9-1.8) Arterial Blood Gas Delivery 2l Amado Test POS (POS) Polychromasia 1+ Hypochromasia PRESENT Basophilic Stippling 1+ Ammonia 22.0 umol/L (11-32) White Blood Count 14.38 K/uL (4.8-10.8) Red Blood Count 3.14 M/uL (4.2-5.4) Hemoglobin 9.7 g/dL (12.0-16.0) Hematocrit 29.9 % (37-47) Mean Corpuscular Volume 95.2 fL (80-100) Mean Corpuscular Hemoglobin 30.9 pg (25-34) Mean Corpuscular Hemoglobin Concent 32.4 g/dl (32-36) Platelet Count 134 K/uL (130-400) Mean Platelet Volume 11.6 fL (7.4-10.4) Neutrophils (%) (Auto) 83.7 % Lymphocytes (%) (Auto) 5.7 % Monocytes (%) (Auto) 7.6 % Eosinophils (%) (Auto) 1.9 % Basophils (%) (Auto) 0.1 % Neutrophils # (Auto) 12.02 K/uL (1.4-6.5) Lymphocytes # (Auto) 0.82 K/uL (1.2-3.4) Monocytes # (Auto) 1.10 K/uL (0.11-0.59) Eosinophils # (Auto) 0.28 K/uL (0-0.5) Basophils # (Auto) 0.01 K/uL (0-0.2) RDW Standard Deviation 55.9 fL (36.4-46.3) RDW Coefficient of Variation 16.2 % (11.5-14.5) Immature Granulocyte % (Auto) 1.0 % Immature Granulocyte # (Auto) 0.15 K/uL (0.00-0.02) Anion Gap 8.0 mmol/L (3-11) Est Creatinine Clear Calc Drug Dose 33.1 ml/min Estimated GFR () 29.3 Estimated GFR (Non- 25.3 BUN/Creatinine Ratio 32.0 (10-20) Calcium Level 9.1 mg/dl (8.5-10.1) Magnesium Level 3.2 mg/dl (1.8-2.4) Test 08/02/16 07:51 Procalcitonin 1.38 ng/ml (0-0.5) Last 24 Hours Test 08/02/16 07:41 08/02/16 07:51 White Blood Count 14.38 K/uL Red Blood Count 3.14 M/uL Hemoglobin 9.7 g/dL Hematocrit 29.9 % Mean Corpuscular Volume 95.2 fL Mean Corpuscular Hemoglobin 30.9 pg Mean Corpuscular Hemoglobin Concent 32.4 g/dl Platelet Count 134 K/uL Mean Platelet Volume 11.6 fL Neutrophils (%) (Auto) 83.7 % Lymphocytes (%) (Auto) 5.7 % Monocytes (%) (Auto) 7.6 % Eosinophils (%) (Auto) 1.9 % Basophils (%) (Auto) 0.1 % Neutrophils # (Auto) 12.02 K/uL Lymphocytes # (Auto) 0.82 K/uL Monocytes # (Auto) 1.10 K/uL Eosinophils # (Auto) 0.28 K/uL Basophils # (Auto) 0.01 K/uL RDW Standard Deviation 55.9 fL RDW Coefficient of Variation 16.2 % Immature Granulocyte % (Auto) 1.0 % Immature Granulocyte # (Auto) 0.15 K/uL Sodium Level 135 mmol/L Potassium Level 4.0 mmol/L Chloride Level 103 mmol/L Carbon Dioxide Level 24 mmol/L Anion Gap 8.0 mmol/L Blood Urea Nitrogen 67 mg/dl Creatinine 2.10 mg/dl Est Creatinine Clear Calc Drug Dose 33.1 ml/min Estimated GFR () 29.3 Estimated GFR (Non- 25.3 BUN/Creatinine Ratio 32.0 Random Glucose 98 mg/dl Calcium Level 9.1 mg/dl Magnesium Level 3.2 mg/dl Procalcitonin 1.38 ng/ml Assessment & Plan 60 year old female with history of Primary Biliary Cirrhosis, 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 Right humeral fracture, left radial fracture secondary to recurrent mechanical fall ambulatory dysfunction: s/p ORIF on 07/28. Pain is controlled. DVT prophy with heparin per Ortho. 2. Altered mental status-etiologies include but not limited to hepatic encephalopathy vs hospital delirium. Ammonia level decreased from 78 to 22 and she is continuing to have good BMs on the lactulose. Oxy SR was discontinued 07/30 and she has had no narcotics today. Trazodone and sertraline also on hold. She was still very lethargic today despite this although she woke up a bit when I got her sitting up for a minute. She was clear and appropriate despite her fatigue and this was an improvement. Cont current therapy. 3. HRS-cont treatment with midodrine and octreotide per Nephro. 4. Hypoxic respiratory failure, resolving: CT chest saw some bilateral infiltrates vs atelectasis. VQ scan revealed low prob PE. TTE is WNL. Repeat CXR of 07/31 (latest) reveals no pneumonia. she is currently oxygenating at 97% on 2L NC so I suspect she will be able to be weaned soon. Appreciate pulm input. 5. Acute on chronic renal failure-CKD III)-baseline creat 1.1, creat worsened to 2.0 with albumin 25%. Holding Lasix and Aldactone 2/2 acute renal failure. Continue with treatment for HRS as above. Appreciate Nephro recs. 6. h/o PBC-pt is not transplant candidate, continues on immunomodulator therapy and is s/p TIPS. Apprec GI recs. 7. Chronic constrictive pericarditis, stable on chronic steroid therapy. 8. Leukocytosis 9. Anemia DVT proph: Heparin Full Code Dispo-cont on telemetry Alexia Aldana DO [facility] Hospitalist. Consultants: GI, Nephro, Pulm Current Inpatient Medications: Current Inpatient Medications Medications (Trade) Dose Ordered Sig/Michael Route Start Time Stop Time Status Last Admin Dose Admin Prednisone (PredniSONE TAB) 1 mg QAM PO 07/27/16 09:00 08/26/16 08:59 08/02/16 08:40 1 MG Gabapentin (Neurontin Cap) 300 mg TID PO 07/26/16 21:00 08/25/16 20:59 08/02/16 14:18 300 MG Ursodiol (Actigall Cap) 600 mg BIDM PO 07/26/16 19:02 08/25/16 19:01 08/02/16 17:16 600 MG Propranolol HCl (Inderal Tab) 10 mg QAM PO 07/27/16 09:00 08/26/16 08:59 08/02/16 08:44 10 MG Cetirizine HCl (zyrTEC TAB) 10 mg DAILY PRN PO 07/26/16 19:15 08/25/16 19:14 07/31/16 09:22 10 MG Albuterol/ Ipratropium (Duoneb) 3 ml Q2H PRN INH 07/26/16 20:30 08/25/16 20:29 Guaifenesin (Mucinex Contr Rel Tab) 600 mg Q12 PO 07/26/16 21:00 08/25/16 20:59 08/02/16 08:38 600 MG Levalbuterol (Xopenex 1.25MG/ 0.5ML Neb) 1.25 mg Q6R INH 07/27/16 10:00 08/26/16 09:59 08/02/16 19:49 1.25 MG Metoclopramide HCl (Reglan Inj) 10 mg Q6H PRN IV 07/28/16 21:30 08/27/16 21:29 Ondansetron HCl (Zofran Inj) 4 mg Q6H PRN IV 07/28/16 21:30 08/27/16 21:29 Pantoprazole Sodium (Protonix Tab) 40 mg QAM PO 07/29/16 09:00 08/28/16 08:59 08/02/16 09:51 40 MG Miscellaneous Medication (No Nsaids) 1 ea UD N/A 07/28/16 21:30 08/27/16 21:29 Naloxone HCl (Narcan Inj) 0.1 mg Q2M PRN IV 07/28/16 21:30 08/27/16 21:29 Multivitamins (Multivitamin Tab) 1 tab DAILY PO 07/29/16 09:00 08/28/16 08:59 08/02/16 08:40 1 TAB Ferrous Gluconate (Ferrous Gluconate Tab) 324 mg TIDM PO 07/29/16 08:30 08/28/16 08:29 08/02/16 17:16 324 MG Enteral Nutritional Formula (Boost) 1 can TIDM PO 07/29/16 21:00 08/28/16 20:59 08/02/16 12:46 1 CAN Miscellaneous (Ocaliva) 5 mg Fr@0900 PO 07/30/16 09:00 08/29/16 08:59 07/30/16 10:28 5 MG Aspirin (Ecotrin Tab) 81 mg QAM PO 07/31/16 09:00 08/30/16 08:59 08/02/16 08:38 81 MG Albumin Human (Albumin 25%) 25 gm QID IV 07/31/16 09:00 08/03/16 08:59 08/02/16 17:32 25 GM Oxycodone HCl (Roxicodone Immediate Rel Tab) 5 mg Q12H PRN PO 07/31/16 18:00 08/09/16 17:59 Lactulose (Chronulac Syrup) 15 gm TID PO 07/31/16 14:00 08/30/16 13:59 08/02/16 12:47 15 GM Rifaximin (Xifaxan Tab) 550 mg BID PO 07/31/16 21:00 08/30/16 20:59 08/02/16 08:40 550 MG Heparin Sodium (Porcine) (Heparin Sq 5000 Unit/0.5ml) 5,000 unit Q8 SQ 08/01/16 14:00 08/31/16 13:59 08/02/16 14:21 5,000 UNIT Midodrine (Proamatine Tab) 7.5 mg TID@,, PO 08/01/16 13:00 08/31/16 12:59 08/02/16 17:15 7.5 MG Octreotide Acetate (Sandostatin Inj) 100 mcg Q8H SQ 08/01/16 14:00 08/31/16 13:59 08/02/16 14:19 100 MCG
[2016-08-03] VITALS (13 sets, daily range): BP systolic 97–116; BP diastolic 51–65; PULSE 62–70; TEMP 36.6–37; O2SAT 92–99
[2016-08-03] MEDS: LEVALBUTEROL 1.25MG/0.5ML NEB INH SCH ×4 (01:49→19:45)
[2016-08-03] MEDS: OCTREOTIDE ACETATE 100 MCG/ML VIAL SQ SCH ×3 (05:47→21:28)
[2016-08-03] MEDS: HEPARIN SOD 5000 UNIT/0.5 ML CARP SQ SCH ×3 (05:48→21:29)
--- NOTE | 2016-08-03 07:25 | Gastroenterology Progress Note ---
Progress Note Date of Service: Aug 03, 2016 Subjective Pt was seen and evaluated this AM. She is eating breakfast. Continues on albumin , midodrine and octreotide with diuretics held for HRS. No acute events overnight. Morning labs pending --> will need to follow up on kidney function. Urine NA 5 -->14. She is mentating well this AM and is oriented x 3. She tells me she feels as if she has to think hard to answer questions appropriately. Review of Systems Constitutional: No fever, No chills Respiratory: + cough, + shortness of breath Cardiac: No chest pain Abdomen: No pain, No nausea, No vomiting, No diarrhea Medications Current Inpatient Medications Medications (Trade) Dose Ordered Sig/Michael Route Start Time Stop Time Status Last Admin Dose Admin Prednisone (PredniSONE TAB) 1 mg QAM PO 07/27/16 09:00 08/26/16 08:59 08/02/16 08:40 1 MG Gabapentin (Neurontin Cap) 300 mg TID PO 07/26/16 21:00 08/25/16 20:59 08/02/16 21:58 300 MG Ursodiol (Actigall Cap) 600 mg BIDM PO 07/26/16 19:02 08/25/16 19:01 08/02/16 17:16 600 MG Propranolol HCl (Inderal Tab) 10 mg QAM PO 07/27/16 09:00 08/26/16 08:59 08/02/16 08:44 10 MG Cetirizine HCl (zyrTEC TAB) 10 mg DAILY PRN PO 07/26/16 19:15 08/25/16 19:14 07/31/16 09:22 10 MG Albuterol/ Ipratropium (Duoneb) 3 ml Q2H PRN INH 07/26/16 20:30 08/25/16 20:29 Guaifenesin (Mucinex Contr Rel Tab) 600 mg Q12 PO 07/26/16 21:00 08/25/16 20:59 08/02/16 21:58 600 MG Levalbuterol (Xopenex 1.25MG/ 0.5ML Neb) 1.25 mg Q6R INH 07/27/16 10:00 08/26/16 09:59 08/03/16 07:11 1.25 MG Metoclopramide HCl (Reglan Inj) 10 mg Q6H PRN IV 07/28/16 21:30 08/27/16 21:29 Ondansetron HCl (Zofran Inj) 4 mg Q6H PRN IV 07/28/16 21:30 08/27/16 21:29 Pantoprazole Sodium (Protonix Tab) 40 mg QAM PO 07/29/16 09:00 08/28/16 08:59 08/02/16 09:51 40 MG Miscellaneous Medication (No Nsaids) 1 ea UD N/A 07/28/16 21:30 08/27/16 21:29 Naloxone HCl (Narcan Inj) 0.1 mg Q2M PRN IV 07/28/16 21:30 08/27/16 21:29 Multivitamins (Multivitamin Tab) 1 tab DAILY PO 07/29/16 09:00 08/28/16 08:59 08/02/16 08:40 1 TAB Ferrous Gluconate (Ferrous Gluconate Tab) 324 mg TIDM PO 07/29/16 08:30 08/28/16 08:29 08/02/16 17:16 324 MG Enteral Nutritional Formula (Boost) 1 can TIDM PO 07/29/16 21:00 08/28/16 20:59 08/02/16 12:46 1 CAN Miscellaneous (Ocaliva) 5 mg Fr@0900 PO 07/30/16 09:00 08/29/16 08:59 07/30/16 10:28 5 MG Aspirin (Ecotrin Tab) 81 mg QAM PO 07/31/16 09:00 08/30/16 08:59 08/02/16 08:38 81 MG Albumin Human (Albumin 25%) 25 gm QID IV 07/31/16 09:00 08/03/16 08:59 08/02/16 23:12 25 GM Oxycodone HCl (Roxicodone Immediate Rel Tab) 5 mg Q12H PRN PO 07/31/16 18:00 08/09/16 17:59 Lactulose (Chronulac Syrup) 15 gm TID PO 07/31/16 14:00 08/30/16 13:59 08/02/16 12:47 15 GM Rifaximin (Xifaxan Tab) 550 mg BID PO 07/31/16 21:00 08/30/16 20:59 08/02/16 21:58 550 MG Heparin Sodium (Porcine) (Heparin Sq 5000 Unit/0.5ml) 5,000 unit Q8 SQ 08/01/16 14:00 08/31/16 13:59 08/03/16 05:48 5,000 UNIT Midodrine (Proamatine Tab) 7.5 mg TID@08,12,17 PO 08/01/16 13:00 08/31/16 12:59 08/02/16 17:15 7.5 MG Octreotide Acetate (Sandostatin Inj) 100 mcg Q8H SQ 08/01/16 14:00 08/31/16 13:59 08/03/16 05:47 100 MCG Objective Vital Signs Date Time Temp Pulse Resp B/P (MAP) Pulse Ox O2 Delivery O2 Flow Rate FiO2 08/03/16 04:00 36.6 66 19 107/58 (74) 96 Nasal Cannula 2.0 08/03/16 04:00 Nasal Cannula 2.0 08/03/16 01:49 65 16 99 Nasal Cannula 2.0 08/03/16 00:00 Nasal Cannula 2.0 08/03/16 00:00 36.8 70 22 110/55 (73) 98 Nasal Cannula 2.0 08/02/16 20:00 Nasal Cannula 2.0 08/02/16 19:52 66 16 97 Nasal Cannula 2.0 08/02/16 19:43 37.2 68 16 109/50 (69) 98 Nasal Cannula 2.0 08/02/16 16:00 Nasal Cannula 2.0 08/02/16 15:36 37.2 70 18 98/56 (70) 95 Nasal Cannula 2.0 08/02/16 14:03 82 16 92 Nasal Cannula 2.0 08/02/16 12:06 36.6 71 18 107/52 (70) 92 Nasal Cannula 08/02/16 12:00 Nasal Cannula 2.0 08/02/16 08:00 Nasal Cannula 1.0 08/02/16 07:51 36.7 69 18 112/44 (66) 96 Nasal Cannula 2.0 Physical Exam General Appearance: no apparent distress Eyes: PERRL ENT: hearing grossly normal Neck: supple Respiratory/Chest: no respiratory distress, + rales, + pertinent finding ( wearing O2) Cardiovascular: regular rate, rhythm Abdomen: normal bowel sounds, soft, no organomegaly, no pulsatile mass Laboratory Results Last 24 Hours Test 08/02/16 07:41 08/02/16 07:51 08/03/16 06:59 White Blood Count 14.38 K/uL Red Blood Count 3.14 M/uL Hemoglobin 9.7 g/dL Hematocrit 29.9 % Mean Corpuscular Volume 95.2 fL Mean Corpuscular Hemoglobin 30.9 pg Mean Corpuscular Hemoglobin Concent 32.4 g/dl Platelet Count 134 K/uL Mean Platelet Volume 11.6 fL Neutrophils (%) (Auto) 83.7 % Lymphocytes (%) (Auto) 5.7 % Monocytes (%) (Auto) 7.6 % Eosinophils (%) (Auto) 1.9 % Basophils (%) (Auto) 0.1 % Neutrophils # (Auto) 12.02 K/uL Lymphocytes # (Auto) 0.82 K/uL Monocytes # (Auto) 1.10 K/uL Eosinophils # (Auto) 0.28 K/uL Basophils # (Auto) 0.01 K/uL RDW Standard Deviation 55.9 fL RDW Coefficient of Variation 16.2 % Immature Granulocyte % (Auto) 1.0 % Immature Granulocyte # (Auto) 0.15 K/uL Sodium Level 135 mmol/L Potassium Level 4.0 mmol/L Chloride Level 103 mmol/L Carbon Dioxide Level 24 mmol/L Anion Gap 8.0 mmol/L Blood Urea Nitrogen 67 mg/dl Creatinine 2.10 mg/dl Est Creatinine Clear Calc Drug Dose 33.1 ml/min Estimated GFR () 29.3 Estimated GFR (Non- 25.3 BUN/Creatinine Ratio 32.0 Random Glucose 98 mg/dl Calcium Level 9.1 mg/dl Magnesium Level 3.2 mg/dl Procalcitonin 1.38 ng/ml Assessment and Plan Ms. Childress is status left humeral fracture repair with a history of primary biliary cholangitis with cirrhosis with increased Creatinine on morning labs over the weekend and hepatic encephalopathy. She had TIPS procedure 04/03/13. Urine NA 5 --> 14. Kidney function pending this AM HRS monitor labs continue octreotide, midodrine and albumin appreciate nephrology input continue to hold diuretics (outpatient dosing was lasix 100 mg and aldactone 100 mg daily) 2 GM NA diet Primary Biliary Cirrhosis Lactulose 15 gm TID OK to titrate to 3 BMs daily Xifaxan 550 mg BID ursodiol 600 mg BID [place] 5mg once a week Inderal 10 mg daily MELD 20 GI will follow. Please call with questions or concerns. ATTESTATION: I have performed a history and physical examination of this patient and reviewed the electronic record. Specifically, on physical examination she is oriented X3. I have discussed the case with YVAN Rodriguez. The above note reflects my findings, conclusions, and recommendations. Antione Lopez MD
[2016-08-03 07:28] LABS: BASO % 0.2 %; BASO ABS # 0.02 K/uL (0-0.2); EOS % 2.8 %; HEMATOCRIT 25.4 % (37-47); IG% 1.3 %; LYMPH % 7.9 %; LYMPH ABS # 0.91 K/uL (1.2-3.4); MEAN CELL VOLUME 94.4 fL (80-100); MEAN CORPUSCULAR HGB CONC 33.9 g/dl (32-36); MEAN PLATELET VOLUME 11.3 fL (7.4-10.4); MONO % 10.1 %; NEUT % 77.7 %; PLATELET COUNT 112 K/uL (130-400); RED BLOOD COUNT 2.69 M/uL (4.2-5.4); WHITE BLOOD COUNT 11.47 K/uL (4.8-10.8)
[2016-08-03 08:01] LABS: COMPLETE YES; POLYCHROMASIA 1+
[2016-08-03] MEDS: RIFAXIMIN TAB 550 MG TAB PO SCH ×2 (08:05→20:30)
[2016-08-03] MEDS: PROPRANOLOL HCL 10 MG TAB PO SCH (08:06)
[2016-08-03] MEDS: URSODIOL 300 MG CAP PO SCH ×2 (08:06→16:46)
[2016-08-03] MEDS: MULTIVITAMIN TAB PO SCH (08:07)
[2016-08-03] MEDS: PANTOprazole SOD 40 MG TAB PO SCH (08:07)
[2016-08-03] MEDS: GUAIFENESIN 600 MG TABCR PO SCH ×2 (08:08→20:29)
[2016-08-03] MEDS: GABAPENTIN 300 MG CAP PO SCH ×3 (08:08→20:29)
[2016-08-03] MEDS: ASPIRIN 81 MG ECTAB PO SCH (08:08)
[2016-08-03] MEDS: FERROUS GLUCONATE 324 MG TAB PO SCH ×3 (08:09→16:46)
[2016-08-03] MEDS: LACTULOSE SYRUP 10 GM/15 ML BTL 473 ML PO SCH ×3 (08:10→20:28)
[2016-08-03] MEDS: MIDODRINE 2.5 MG TAB PO SCH ×3 (08:11→16:47)
--- NOTE | 2016-08-03 08:13 | Nephrology Progress Note ---
Nephrology Progress Note Date of Service: Aug 03, 2016. Subjective 60 yo female with PBC who underwent surgery on her arm. patient with HRS currently on albumin, midodrine and octreotide. pt appears weak but more awake. still eating well. not complaining of sob but does have rales at the bases. repeat urine sodium up to 14. Objective Date Time Temp Pulse Resp B/P (MAP) Pulse Ox O2 Delivery O2 Flow Rate FiO2 08/03/16 04:00 36.6 66 19 107/58 (74) 96 Nasal Cannula 2.0 08/03/16 04:00 Nasal Cannula 2.0 08/03/16 01:49 65 16 99 Nasal Cannula 2.0 08/03/16 00:00 Nasal Cannula 2.0 08/03/16 00:00 36.8 70 22 110/55 (73) 98 Nasal Cannula 2.0 08/02/16 20:00 Nasal Cannula 2.0 08/02/16 19:52 66 16 97 Nasal Cannula 2.0 08/02/16 19:43 37.2 68 16 109/50 (69) 98 Nasal Cannula 2.0 08/02/16 16:00 Nasal Cannula 2.0 08/02/16 15:36 37.2 70 18 98/56 (70) 95 Nasal Cannula 2.0 08/02/16 14:03 82 16 92 Nasal Cannula 2.0 08/02/16 12:06 36.6 71 18 107/52 (70) 92 Nasal Cannula 08/02/16 12:00 Nasal Cannula 2.0 Physical Exam: General-aaox2, weak Eyes-no scleral icterus ENT-mmm Neck-supple Lungs-basilar rales Heart-regular Abdomen-bs+, soft Extremities-+2 edema Neuro-weak but follows commands Current Inpatient Medications Medications (Trade) Dose Ordered Sig/Michael Route Start Time Stop Time Status Last Admin Dose Admin Prednisone (PredniSONE TAB) 1 mg QAM PO 07/27/16 09:00 08/26/16 08:59 08/02/16 08:40 1 MG Gabapentin (Neurontin Cap) 300 mg TID PO 07/26/16 21:00 08/25/16 20:59 08/02/16 21:58 300 MG Ursodiol (Actigall Cap) 600 mg BIDM PO 07/26/16 19:02 08/25/16 19:01 08/02/16 17:16 600 MG Propranolol HCl (Inderal Tab) 10 mg QAM PO 07/27/16 09:00 08/26/16 08:59 08/02/16 08:44 10 MG Cetirizine HCl (zyrTEC TAB) 10 mg DAILY PRN PO 07/26/16 19:15 08/25/16 19:14 07/31/16 09:22 10 MG Albuterol/ Ipratropium (Duoneb) 3 ml Q2H PRN INH 07/26/16 20:30 08/25/16 20:29 Guaifenesin (Mucinex Contr Rel Tab) 600 mg Q12 PO 07/26/16 21:00 08/25/16 20:59 08/02/16 21:58 600 MG Levalbuterol (Xopenex 1.25MG/ 0.5ML Neb) 1.25 mg Q6R INH 07/27/16 10:00 08/26/16 09:59 08/03/16 07:11 1.25 MG Metoclopramide HCl (Reglan Inj) 10 mg Q6H PRN IV 07/28/16 21:30 08/27/16 21:29 Ondansetron HCl (Zofran Inj) 4 mg Q6H PRN IV 07/28/16 21:30 08/27/16 21:29 Pantoprazole Sodium (Protonix Tab) 40 mg QAM PO 07/29/16 09:00 08/28/16 08:59 08/02/16 09:51 40 MG Miscellaneous Medication (No Nsaids) 1 ea UD N/A 07/28/16 21:30 08/27/16 21:29 Naloxone HCl (Narcan Inj) 0.1 mg Q2M PRN IV 07/28/16 21:30 08/27/16 21:29 Multivitamins (Multivitamin Tab) 1 tab DAILY PO 07/29/16 09:00 08/28/16 08:59 08/02/16 08:40 1 TAB Ferrous Gluconate (Ferrous Gluconate Tab) 324 mg TIDM PO 07/29/16 08:30 08/28/16 08:29 08/02/16 17:16 324 MG Enteral Nutritional Formula (Boost) 1 can TIDM PO 07/29/16 21:00 08/28/16 20:59 08/02/16 12:46 1 CAN Miscellaneous (Ocaliva) 5 mg Fr@0900 PO 07/30/16 09:00 08/29/16 08:59 07/30/16 10:28 5 MG Aspirin (Ecotrin Tab) 81 mg QAM PO 07/31/16 09:00 08/30/16 08:59 08/02/16 08:38 81 MG Albumin Human (Albumin 25%) 25 gm QID IV 07/31/16 09:00 08/03/16 08:59 08/02/16 23:12 25 GM Oxycodone HCl (Roxicodone Immediate Rel Tab) 5 mg Q12H PRN PO 07/31/16 18:00 08/09/16 17:59 Lactulose (Chronulac Syrup) 15 gm TID PO 07/31/16 14:00 08/30/16 13:59 08/02/16 12:47 15 GM Rifaximin (Xifaxan Tab) 550 mg BID PO 07/31/16 21:00 08/30/16 20:59 08/02/16 21:58 550 MG Heparin Sodium (Porcine) (Heparin Sq 5000 Unit/0.5ml) 5,000 unit Q8 SQ 08/01/16 14:00 08/31/16 13:59 08/03/16 05:48 5,000 UNIT Midodrine (Proamatine Tab) 7.5 mg TID@,,17 PO 08/01/16 13:00 08/31/16 12:59 08/02/16 17:15 7.5 MG Octreotide Acetate (Sandostatin Inj) 100 mcg Q8H SQ 08/01/16 14:00 08/31/16 13:59 08/03/16 05:47 100 MCG Last 24 Hours Test 08/03/16 06:59 White Blood Count 11.47 K/uL Red Blood Count 2.69 M/uL Hemoglobin 8.6 g/dL Hematocrit 25.4 % Mean Corpuscular Volume 94.4 fL Mean Corpuscular Hemoglobin 32.0 pg Mean Corpuscular Hemoglobin Concent 33.9 g/dl Platelet Count 112 K/uL Mean Platelet Volume 11.3 fL Neutrophils (%) (Auto) 77.7 % Lymphocytes (%) (Auto) 7.9 % Monocytes (%) (Auto) 10.1 % Eosinophils (%) (Auto) 2.8 % Basophils (%) (Auto) 0.2 % Neutrophils # (Auto) 8.91 K/uL Lymphocytes # (Auto) 0.91 K/uL Monocytes # (Auto) 1.16 K/uL Eosinophils # (Auto) 0.32 K/uL Basophils # (Auto) 0.02 K/uL RDW Standard Deviation 54.5 fL RDW Coefficient of Variation 16.2 % Immature Granulocyte % (Auto) 1.3 % Immature Granulocyte # (Auto) 0.15 K/uL Polychromasia 1+ Basophilic Stippling 1+ Assessment & Plan ileana on ckd stage 3-baseline creatinine of 1.1 to 1.3. treating for hepatorenal syndrome. concerned about her volume status. pt not symptomatically sob but having more rales at the bases. repeat urine sodium better at 14. hopefully, creatinine starts to eventually trend down. may need to lower dose of albumin. renal us with kidneys showing cortical atrophy. repeat labs are pending.
[2016-08-03] MEDS: BOOST VANILLA PO SCH ×6 (08:18→16:50)
--- NOTE | 2016-08-03 08:53 | Pulmonology Progress Note ---
Pulmonary Progress Note Date of Service Aug 03, 2016. Attending Ashok Subjective Feeling generally improved today. Appetite is in-tact. Reports some abdominal pain associated with injections. Denies any cough or dyspnea. Objective Patient admitted 07/26/16 with AMS s/p fall with right humerus fracture and hypoxia. PMHx includes: primary biliary cirrhosis s/p TIPS, portal HTN, h.o constrictive pericarditis - chronic low-dose steroid: 1mg prednisone, formally on O2 but since discontinued, h/o recurrent rt pleural effusion, recurrent mechanical falls, h/o chronic anemia, CKD III, h/o rib fx, chronic elevation of hemidiaphragm Patient history notable for fall recurrent falls with h/o left radial fx a few weeks prior to admission. Additionally, hx notable for marginal O2 - chronic. [employer] post-fall, she sustained fracture to the proximal right humeral head and neck. Imaging also notable for ascites and RML and RLL airspace opacities with bronchograms. Recent history notable for increased confusion and cough productive of clear sputum. In the ER she was hypoxic and required titrated O2. Chest CT 07/27/16: mild bibasilar infiltrative and or atelectatic change -small amount of perihepatic ascites. VQ scan 07/27/16: very low probability for PE. ABG consistent with + AA gradient - no hypercarbia. Echocardiogram: EF: 60-65%, mild dilation of LA, mild TR, no indication of pulmonary HTN - no shunt 07/28 repair right proximal humerus displaced fracture and left distal radius fracture. She tolerated the procedure well with continued post-operative hypoxia and confusion. - ABG (07/31: 7.41/37-2LPM/37/23). - Ammonia: 78: Lactulose and rifaximin started with improvement - CXR 07/31/16: mild cardiac enlargement without radiographic evidence of failure. Trace right effusion. No airspace consolidation. Today: Today: - Weaned to RA today: 90-92% - afebrile, HD stable - Has not required, PRN duo-neb - WBC: 11.47, Hgb/Hct/Plts: 8.6/25.4/112 Physical Exam: Constitutional: Ill appearing female lying in hospital bed. No acute distress Head: + facial symmetry Eyes: EOMi, PERRLA, no injection Mouth: dry lips, dentures in place. No visible erythema Respiratory: Non-labored respirations. Improvement in bilateral ralses from prior. No cough on exam. No wheeze CV: RRR, no MRG. Warm and perfused peripherally MSK/Extremities: moving symmetrically. RUE in sling and wrap. LUE in [place]. Non- pitting LE edema Neurologic: Somnolent. Answers questions appropriately. Assessment & Plan 1. She is improving from a pulmonary standpoint O2 weaned this AM and thus far, she has been stable 2. CXR today Patient and case reviewed and plan agreed with. Data Medications: Current Inpatient Medications Medications (Trade) Dose Ordered Sig/Michael Route Start Time Stop Time Status Last Admin Dose Admin Prednisone (PredniSONE TAB) 1 mg QAM PO 07/27/16 09:00 08/26/16 08:59 08/03/16 08:08 1 MG Gabapentin (Neurontin Cap) 300 mg TID PO 07/26/16 21:00 08/25/16 20:59 08/03/16 08:08 300 MG Ursodiol (Actigall Cap) 600 mg BIDM PO 07/26/16 19:02 08/25/16 19:01 08/03/16 08:06 600 MG Propranolol HCl (Inderal Tab) 10 mg QAM PO 07/27/16 09:00 08/26/16 08:59 08/03/16 08:06 10 MG Cetirizine HCl (zyrTEC TAB) 10 mg DAILY PRN PO 07/26/16 19:15 08/25/16 19:14 07/31/16 09:22 10 MG Albuterol/ Ipratropium (Duoneb) 3 ml Q2H PRN INH 07/26/16 20:30 08/25/16 20:29 Guaifenesin (Mucinex Contr Rel Tab) 600 mg Q12 PO 07/26/16 21:00 08/25/16 20:59 08/03/16 08:08 600 MG Levalbuterol (Xopenex 1.25MG/ 0.5ML Neb) 1.25 mg Q6R INH 07/27/16 10:00 08/26/16 09:59 08/03/16 07:11 1.25 MG Metoclopramide HCl (Reglan Inj) 10 mg Q6H PRN IV 07/28/16 21:30 7/21/17 21:29 Ondansetron HCl (Zofran Inj) 4 mg Q6H PRN IV 07/28/16 21:30 08/27/16 21:29 Pantoprazole Sodium (Protonix Tab) 40 mg QAM PO 07/29/16 09:00 08/28/16 08:59 08/03/16 08:07 40 MG Miscellaneous Medication (No Nsaids) 1 ea UD N/A 07/28/16 21:30 08/27/16 21:29 Naloxone HCl (Narcan Inj) 0.1 mg Q2M PRN IV 07/28/16 21:30 08/27/16 21:29 Multivitamins (Multivitamin Tab) 1 tab DAILY PO 07/29/16 09:00 08/28/16 08:59 08/03/16 08:07 1 TAB Ferrous Gluconate (Ferrous Gluconate Tab) 324 mg TIDM PO 07/29/16 08:30 08/28/16 08:29 08/03/16 08:09 324 MG Enteral Nutritional Formula (Boost) 1 can TIDM PO 07/29/16 21:00 08/28/16 20:59 08/03/16 08:18 1 CAN Miscellaneous (Ocaliva) 5 mg Fr@0900 PO 07/30/16 09:00 08/29/16 08:59 07/30/16 10:28 5 MG Aspirin (Ecotrin Tab) 81 mg QAM PO 07/31/16 09:00 08/30/16 08:59 08/03/16 08:08 81 MG Albumin Human (Albumin 25%) 25 gm QID IV 07/31/16 09:00 08/03/16 08:59 08/02/16 23:12 25 GM Oxycodone HCl (Roxicodone Immediate Rel Tab) 5 mg Q12H PRN PO 07/31/16 18:00 08/09/16 17:59 Lactulose (Chronulac Syrup) 15 gm TID PO 07/31/16 14:00 08/30/16 13:59 08/03/16 08:10 15 GM Rifaximin (Xifaxan Tab) 550 mg BID PO 07/31/16 21:00 08/30/16 20:59 08/03/16 08:05 550 MG Heparin Sodium (Porcine) (Heparin Sq 5000 Unit/0.5ml) 5,000 unit Q8 SQ 08/01/16 14:00 08/31/16 13:59 08/03/16 05:48 5,000 UNIT Midodrine (Proamatine Tab) 7.5 mg TID@08,12,17 PO 08/01/16 13:00 08/31/16 12:59 08/03/16 08:11 7.5 MG Octreotide Acetate (Sandostatin Inj) 100 mcg Q8H SQ 08/01/16 14:00 08/31/16 13:59 08/03/16 05:47 100 MCG Vital Signs: Date Time Temp Pulse Resp B/P (MAP) Pulse Ox O2 Delivery O2 Flow Rate FiO2 08/03/16 08:33 36.6 67 16 102/52 (69) 97 Room Air 08/03/16 04:00 36.6 66 19 107/58 (74) 96 Nasal Cannula 2.0 08/03/16 04:00 Nasal Cannula 2.0 08/03/16 01:49 65 16 99 Nasal Cannula 2.0 08/03/16 00:00 Nasal Cannula 2.0 08/03/16 00:00 36.8 70 22 110/55 (73) 98 Nasal Cannula 2.0 08/02/16 20:00 Nasal Cannula 2.0 08/02/16 19:52 66 16 97 Nasal Cannula 2.0 08/02/16 19:43 37.2 68 16 109/50 (69) 98 Nasal Cannula 2.0 08/02/16 16:00 Nasal Cannula 2.0 08/02/16 15:36 37.2 70 18 98/56 (70) 95 Nasal Cannula 2.0 08/02/16 14:03 82 16 92 Nasal Cannula 2.0 08/02/16 12:06 36.6 71 18 107/52 (70) 92 Nasal Cannula 08/02/16 12:00 Nasal Cannula 2.0 Laboratory Results: Last 24 Hours Test 08/03/16 06:59 White Blood Count 11.47 K/uL Red Blood Count 2.69 M/uL Hemoglobin 8.6 g/dL Hematocrit 25.4 % Mean Corpuscular Volume 94.4 fL Mean Corpuscular Hemoglobin 32.0 pg Mean Corpuscular Hemoglobin Concent 33.9 g/dl Platelet Count 112 K/uL Mean Platelet Volume 11.3 fL Neutrophils (%) (Auto) 77.7 % Lymphocytes (%) (Auto) 7.9 % Monocytes (%) (Auto) 10.1 % Eosinophils (%) (Auto) 2.8 % Basophils (%) (Auto) 0.2 % Neutrophils # (Auto) 8.91 K/uL Lymphocytes # (Auto) 0.91 K/uL Monocytes # (Auto) 1.16 K/uL Eosinophils # (Auto) 0.32 K/uL Basophils # (Auto) 0.02 K/uL RDW Standard Deviation 54.5 fL RDW Coefficient of Variation 16.2 % Immature Granulocyte % (Auto) 1.3 % Immature Granulocyte # (Auto) 0.15 K/uL Polychromasia 1+ Basophilic Stippling 1+
[2016-08-03] MEDS: ALBUMIN HUMAN 25% 12.5 GM/50 ML VIAL IV SCH ×4 (12:41→21:28)
[2016-08-03 13:08] LABS: BUN/CREATININE RATIO 36.1 (10-20); CALCIUM 8.8 mg/dl (8.5-10.1); CREATININE 1.9 mg/dl (0.60-1.20)
--- NOTE | 2016-08-03 13:36 | DIAGNOSTIC IMAGING REPORT ---
CHEST ONE VIEW PORTABLE CLINICAL HISTORY: Rales. COMPARISON STUDY: Chest radiograph July 31, 2016. FINDINGS: Incidental note is made of proximal bilateral humeral internal fixation hardware. Bilateral airspace opacities, most evident within the right upper lung, are noted. Elevation of the right hemidiaphragm is unchanged. Cardiac size is at the upper limits of normal. There is a trace right pleural effusion. IMPRESSION: Interstitial thickening and bilateral airspace opacities which could reflect pneumonia or pulmonary edema. Electronically signed by: Zain Tom M.D. 08/03/2016 1:35 PM Dictated Date/Time: 08/03/2016 1:33 PM
[2016-08-03] MEDS: LIDOCAINE/PRILOCAINE 2.5% EA CRM EXT SCH (20:28)
--- NOTE | 2016-08-03 21:37 | Progress Note ---
Medicine Progress Note Date & Time of Visit: Aug 03, 2016 at 15:27. 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 She is s/p ORIF on 07/28 for both areas and is doing well with respect to pain. HRS continues to improve on octreotide and midodrine. -tolerating PO -state that her post-op pain is tolerable without medications. -more alert today--normal mentation--increased energy -able to transfer to bedside commode with assist -already had two BMs today. Objective Last 8 Hrs Date Time Temp Pulse Resp B/P (MAP) Pulse Ox O2 Delivery O2 Flow Rate FiO2 08/03/16 14:16 62 16 92 Room Air 08/03/16 13:31 64 18 116/53 (74) 92 Room Air 08/03/16 12:35 64 115/62 (79) 95 Room Air 08/03/16 12:03 36.6 65 18 112/65 (81) 96 Nasal Cannula 08/03/16 12:00 Nasal Cannula 2.0 08/03/16 08:33 36.6 67 16 102/52 (69) 97 Room Air 08/03/16 08:12 Nasal Cannula 2.0 Physical Exam: GEN: WNWD, in no acute distress, mentating appropriately with increased energy HEENT: NC/AT, pupils are round and reactive, normal sclerae CARDIO: reg rate, S1/2 heard without m/g/r LUNGS: CTA bilaterally, no crackles, rales or wheezes, good diaphragmatic excursion ABD: soft, non-tender, non-distended, no rebound or guarding, +BS EXTREMITY: RP and DP palpable 2+ bilat, no LE swelling or edema, extremities are warm and well-perfused, R wrist in dressing that is c/d/i, LUE in sling NEURO: CN 2-12 grossly intact, no gross focal deficits. MUSC: generalized weakness noted SKIN: warm and dry Laboratory Results: 08/03/16 06:59 Red Blood Count 2.69, Mean Corpuscular Volume 94.4, Mean Corpuscular Hemoglobin 32.0, Mean Corpuscular Hemoglobin Concent 33.9, Mean Platelet Volume 11.3, Neutrophils (%) (Auto) 77.7, Lymphocytes (%) (Auto) 7.9, Monocytes (%) (Auto) 10.1, Eosinophils (%) (Auto) 2.8, Basophils (%) (Auto) 0.2, Neutrophils # (Auto ) 8.91, Lymphocytes # (Auto) 0.91, Monocytes # (Auto) 1.16, Eosinophils # (Auto ) 0.32, Basophils # (Auto) 0.02 08/03/16 06:59 Test 07/26/16 17:00 07/27/16 05:50 07/31/16 05:35 07/31/16 09:37 Prothrombin Time 12.8 SECONDS (9.0-12.0) Prothromb Time International Ratio 1.2 (0.9-1.1) Lipase 125 U/L (73-393) 25-Hydroxy Vitamin D Total 33.0 ng/ml (30-100) Total Bilirubin 3.0 mg/dl (0.2-1) Aspartate Amino Transf (AST/SGOT) 65 U/L (15-37) Alanine Aminotransferase (ALT/SGPT) 19 U/L (12-78) Alkaline Phosphatase 303 U/L (45-117) Total Protein 5.8 gm/dl (6.4-8.2) Albumin 2.4 gm/dl (3.4-5.0) Globulin 3.4 gm/dl (2.5-4.0) Albumin/Globulin Ratio 0.7 (0.9-2) Arterial Blood pH 7.41 (7.35-7.45) Arterial Blood Partial Pressure CO2 37 mmHg (35-46) Arterial Blood Partial Pressure O2 77 mm/Hg (80-95) Arterial Blood HCO3 23 mmol/L (19-24) Arterial Blood Oxygen Saturation 94.9 % (90-95) Arterial Blood Base Excess -1.2 mEq/L (-9-1.8) Arterial Blood Gas Delivery 2l Amado Test POS (POS) Test 08/01/16 08:13 08/01/16 12:50 08/02/16 00:00 08/02/16 07:41 Hypochromasia PRESENT Ammonia 22.0 umol/L (11-32) Urine Random Sodium 14 mEq/L Magnesium Level 3.2 mg/dl (1.8-2.4) Test 08/02/16 07:51 08/03/16 06:59 Procalcitonin 1.38 ng/ml (0-0.5) White Blood Count 11.47 K/uL (4.8-10.8) Red Blood Count 2.69 M/uL (4.2-5.4) Hemoglobin 8.6 g/dL (12.0-16.0) Hematocrit 25.4 % (37-47) Mean Corpuscular Volume 94.4 fL (80-100) Mean Corpuscular Hemoglobin 32.0 pg (25-34) Mean Corpuscular Hemoglobin Concent 33.9 g/dl (32-36) Platelet Count 112 K/uL (130-400) Mean Platelet Volume 11.3 fL (7.4-10.4) Neutrophils (%) (Auto) 77.7 % Lymphocytes (%) (Auto) 7.9 % Monocytes (%) (Auto) 10.1 % Eosinophils (%) (Auto) 2.8 % Basophils (%) (Auto) 0.2 % Neutrophils # (Auto) 8.91 K/uL (1.4-6.5) Lymphocytes # (Auto) 0.91 K/uL (1.2-3.4) Monocytes # (Auto) 1.16 K/uL (0.11-0.59) Eosinophils # (Auto) 0.32 K/uL (0-0.5) Basophils # (Auto) 0.02 K/uL (0-0.2) RDW Standard Deviation 54.5 fL (36.4-46.3) RDW Coefficient of Variation 16.2 % (11.5-14.5) Immature Granulocyte % (Auto) 1.3 % Immature Granulocyte # (Auto) 0.15 K/uL (0.00-0.02) Polychromasia 1+ Basophilic Stippling 1+ Anion Gap 9.0 mmol/L (3-11) Est Creatinine Clear Calc Drug Dose 36.6 ml/min Estimated GFR () 33.1 Estimated GFR (Non- 28.6 BUN/Creatinine Ratio 36.1 (10-20) Calcium Level 8.8 mg/dl (8.5-10.1) Last 24 Hours Test 08/03/16 06:59 White Blood Count 11.47 K/uL Red Blood Count 2.69 M/uL Hemoglobin 8.6 g/dL Hematocrit 25.4 % Mean Corpuscular Volume 94.4 fL Mean Corpuscular Hemoglobin 32.0 pg Mean Corpuscular Hemoglobin Concent 33.9 g/dl Platelet Count 112 K/uL Mean Platelet Volume 11.3 fL Neutrophils (%) (Auto) 77.7 % Lymphocytes (%) (Auto) 7.9 % Monocytes (%) (Auto) 10.1 % Eosinophils (%) (Auto) 2.8 % Basophils (%) (Auto) 0.2 % Neutrophils # (Auto) 8.91 K/uL Lymphocytes # (Auto) 0.91 K/uL Monocytes # (Auto) 1.16 K/uL Eosinophils # (Auto) 0.32 K/uL Basophils # (Auto) 0.02 K/uL RDW Standard Deviation 54.5 fL RDW Coefficient of Variation 16.2 % Immature Granulocyte % (Auto) 1.3 % Immature Granulocyte # (Auto) 0.15 K/uL Polychromasia 1+ Basophilic Stippling 1+ Sodium Level 135 mmol/L Potassium Level 4.0 mmol/L Chloride Level 105 mmol/L Carbon Dioxide Level 21 mmol/L Anion Gap 9.0 mmol/L Blood Urea Nitrogen 69 mg/dl Creatinine 1.90 mg/dl Est Creatinine Clear Calc Drug Dose 36.6 ml/min Estimated GFR () 33.1 Estimated GFR (Non- 28.6 BUN/Creatinine Ratio 36.1 Random Glucose 95 mg/dl Calcium Level 8.8 mg/dl Diagnostic Imaging: CHEST ONE VIEW PORTABLE CLINICAL HISTORY: Rales. COMPARISON STUDY: Chest radiograph July 31, 2016. FINDINGS: Incidental note is made of proximal bilateral humeral internal fixation hardware. Bilateral airspace opacities, most evident within the right upper lung, are noted. Elevation of the right hemidiaphragm is unchanged. Cardiac size is at the upper limits of normal. There is a trace right pleural effusion. IMPRESSION: Interstitial thickening and bilateral airspace opacities which could reflect pneumonia or pulmonary edema. Assessment & Plan 60 year old female with history of Primary Biliary Cirrhosis, 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 She is s/p ORIF on 07/28 for both areas and is doing well with respect to pain. HRS continues to improve on octreotide and midodrine. 1. Right humeral fracture, left radial fracture secondary to recurrent mechanical fall ambulatory dysfunction: s/p ORIF on 07/28. Pain is controlled. DVT prophy with heparin per Ortho. 2. Altered mental status-resolved. No narcotics or pain meds of any kind. Holding trazodone, sertraline, Oxy. 3. HRS-cont treatment with midodrine and octreotide per Nephro. OF note, pt has shot fatigue with 6 scheduled shots daily. EMLA cream was added to help with numbing the area. 4. Hypoxic respiratory failure, resolving: CT chest saw some bilateral infiltrates vs atelectasis. VQ scan revealed low prob PE. TTE is WNL. Repeat CXR of 07/31 reveals no pneumonia. Repeat CXR today reveals some evidence of pulmonary edema so Neprho backed down on the albumin. She was on room air and then back on 2L but oxygenating very well 94-97%. Appreciate pulm input. 5. Acute on chronic renal failure-CKD III-baseline creat 1.1, creat worsened to 2.0 with albumin 25% and then improved today to 1.9. Holding Lasix and Aldactone 2/2 acute renal failure. Continue with treatment for HRS as above. Discussed with Oncu and he recommends holding Lasix despite evidence of pulmonary congestion as she is oxygenating well and not working to breathe. Will have a low threshold to diurese. Appreciate Nephro recs. 6. h/o PBC- continues on immunomodulator therapy and is s/p TIPS. Apprec GI recs. 7. Chronic constrictive pericarditis, stable on chronic steroid therapy. 8. Leukocytosis-improved 9. Anemia-stable, likely 2/2 chronic disease and post-op state 10. Thrombocytopenia likely 2/2 cirrhosis DVT proph: Heparin Full Code Dispo-cont on telemetry, likely transfer off tele tomorrow if still appears stable. Alexia Aldana DO [facility] Hospitalist. Consultants: GI, Nephro, Pulm Current Inpatient Medications: Current Inpatient Medications Medications (Trade) Dose Ordered Sig/Michael Route Start Time Stop Time Status Last Admin Dose Admin Prednisone (PredniSONE TAB) 1 mg QAM PO 07/27/16 09:00 08/26/16 08:59 08/03/16 08:08 1 MG Gabapentin (Neurontin Cap) 300 mg TID PO 07/26/16 21:00 7/19/17 20:59 08/03/16 13:38 300 MG Ursodiol (Actigall Cap) 600 mg BIDM PO 07/26/16 19:02 08/25/16 19:01 08/03/16 08:06 600 MG Propranolol HCl (Inderal Tab) 10 mg QAM PO 07/27/16 09:00 08/26/16 08:59 08/03/16 08:06 10 MG Cetirizine HCl (zyrTEC TAB) 10 mg DAILY PRN PO 07/26/16 19:15 08/25/16 19:14 07/31/16 09:22 10 MG Albuterol/ Ipratropium (Duoneb) 3 ml Q2H PRN INH 07/26/16 20:30 08/25/16 20:29 Guaifenesin (Mucinex Contr Rel Tab) 600 mg Q12 PO 07/26/16 21:00 08/25/16 20:59 08/03/16 08:08 600 MG Levalbuterol (Xopenex 1.25MG/ 0.5ML Neb) 1.25 mg Q6R INH 07/27/16 10:00 08/26/16 09:59 08/03/16 14:17 1.25 MG Metoclopramide HCl (Reglan Inj) 10 mg Q6H PRN IV 07/28/16 21:30 08/27/16 21:29 Ondansetron HCl (Zofran Inj) 4 mg Q6H PRN IV 07/28/16 21:30 08/27/16 21:29 Pantoprazole Sodium (Protonix Tab) 40 mg QAM PO 07/29/16 09:00 08/28/16 08:59 08/03/16 08:07 40 MG Miscellaneous Medication (No Nsaids) 1 ea UD N/A 07/28/16 21:30 08/27/16 21:29 Naloxone HCl (Narcan Inj) 0.1 mg Q2M PRN IV 07/28/16 21:30 08/27/16 21:29 Multivitamins (Multivitamin Tab) 1 tab DAILY PO 07/29/16 09:00 08/28/16 08:59 08/03/16 08:07 1 TAB Ferrous Gluconate (Ferrous Gluconate Tab) 324 mg TIDM PO 07/29/16 08:30 08/28/16 08:29 08/03/16 12:39 324 MG Enteral Nutritional Formula (Boost) 1 can TIDM PO 07/29/16 21:00 08/28/16 20:59 08/03/16 12:37 1 CAN Miscellaneous (Ocaliva) 5 mg Fr@0900 PO 07/30/16 09:00 08/29/16 08:59 07/30/16 10:28 5 MG Aspirin (Ecotrin Tab) 81 mg QAM PO 07/31/16 09:00 08/30/16 08:59 08/03/16 08:08 81 MG Oxycodone HCl (Roxicodone Immediate Rel Tab) 5 mg Q12H PRN PO 07/31/16 18:00 08/09/16 17:59 Lactulose (Chronulac Syrup) 15 gm TID PO 07/31/16 14:00 08/30/16 13:59 08/03/16 08:10 15 GM Rifaximin (Xifaxan Tab) 550 mg BID PO 07/31/16 21:00 08/30/16 20:59 08/03/16 08:05 550 MG Heparin Sodium (Porcine) (Heparin Sq 5000 Unit/0.5ml) 5,000 unit Q8 SQ 08/01/16 14:00 08/31/16 13:59 08/03/16 13:43 5,000 UNIT Midodrine (Proamatine Tab) 7.5 mg TID@,, PO 08/01/16 13:00 08/31/16 12:59 08/03/16 12:39 7.5 MG Octreotide Acetate (Sandostatin Inj) 100 mcg Q8H SQ 08/01/16 14:00 08/31/16 13:59 08/03/16 13:58 100 MCG Albumin Human (Albumin 25%) 12.5 gm DAILY@0900,0930 IV 08/04/16 09:00 08/05/16 23:59 Albumin Human (Albumin 25%) 12.5 gm DAILY@2100,2130 IV 08/03/16 21:00 08/05/16 23:59
[2016-08-04] VITALS (12 sets, daily range): BP systolic 87–104; BP diastolic 45–58; PULSE 54–69; TEMP 36.3–37.2; O2SAT 92–94
[2016-08-04] MEDS: LEVALBUTEROL 1.25MG/0.5ML NEB INH SCH ×4 (02:10→19:00)
[2016-08-04] MEDS: LIDOCAINE/PRILOCAINE 2.5% EA CRM EXT SCH ×3 (06:14→17:08)
[2016-08-04] MEDS: OCTREOTIDE ACETATE 100 MCG/ML VIAL SQ SCH ×3 (06:14→21:39)
[2016-08-04] MEDS: HEPARIN SOD 5000 UNIT/0.5 ML CARP SQ SCH ×3 (06:15→21:45)
--- NOTE | 2016-08-04 07:29 | Nephrology Progress Note ---
Nephrology Progress Note Date of Service: Aug 04, 2016. Subjective 60 yo female with PBC with ileana from HRS. pt yesterday had rales at the bases and signs of congestion on chest xray. pt his morning sounds better on lung exam and continues to be more alert. had good urine output yesterday. albumin dose reduced yesterday. Objective Date Time Temp Pulse Resp B/P (MAP) Pulse Ox O2 Delivery O2 Flow Rate FiO2 08/04/16 07:21 67 16 93 Room Air 08/04/16 04:08 37.2 67 18 93/52 (66) 93 Room Air 08/04/16 04:00 Room Air 08/04/16 02:10 69 16 92 Room Air 08/04/16 00:04 36.8 67 20 98/53 (68) 94 Room Air 08/03/16 23:59 Room Air 08/03/16 20:00 Room Air 08/03/16 19:45 68 16 94 Room Air 08/03/16 19:04 37.0 65 22 99/53 (68) 95 Nasal Cannula 0.5 08/03/16 16:40 111/59 (76) 08/03/16 16:00 Nasal Cannula 1.0 08/03/16 15:38 36.8 66 17 97/51 (66) 97 Room Air 08/03/16 14:16 62 16 92 Room Air 08/03/16 13:31 64 18 116/53 (74) 92 Room Air 08/03/16 12:35 64 115/62 (79) 95 Room Air 08/03/16 12:03 36.6 65 18 112/65 (81) 96 Nasal Cannula 08/03/16 12:00 Nasal Cannula 2.0 08/03/16 08:33 36.6 67 16 102/52 (69) 97 Room Air 08/03/16 08:12 Nasal Cannula 2.0 Physical Exam: General-aaox3 Eyes-no scleral icterus ENT-mmm Neck-supple Lungs-cta Heart-regular Abdomen-bs+, soft Extremities-+1 edema, left arm wrapped in cast, right arm in sling Neuro-nonfocal Current Inpatient Medications Medications (Trade) Dose Ordered Sig/Michael Route Start Time Stop Time Status Last Admin Dose Admin Prednisone (PredniSONE TAB) 1 mg QAM PO 07/27/16 09:00 08/26/16 08:59 08/03/16 08:08 1 MG Gabapentin (Neurontin Cap) 300 mg TID PO 07/26/16 21:00 08/25/16 20:59 08/03/16 20:29 300 MG Ursodiol (Actigall Cap) 600 mg BIDM PO 07/26/16 19:02 08/25/16 19:01 08/03/16 16:46 600 MG Propranolol HCl (Inderal Tab) 10 mg QAM PO 07/27/16 09:00 08/26/16 08:59 08/03/16 08:06 10 MG Cetirizine HCl (zyrTEC TAB) 10 mg DAILY PRN PO 07/26/16 19:15 08/25/16 19:14 07/31/16 09:22 10 MG Albuterol/ Ipratropium (Duoneb) 3 ml Q2H PRN INH 07/26/16 20:30 08/25/16 20:29 Guaifenesin (Mucinex Contr Rel Tab) 600 mg Q12 PO 07/26/16 21:00 08/25/16 20:59 08/03/16 20:29 600 MG Levalbuterol (Xopenex 1.25MG/ 0.5ML Neb) 1.25 mg Q6R INH 07/27/16 10:00 08/26/16 09:59 08/04/16 07:21 1.25 MG Metoclopramide HCl (Reglan Inj) 10 mg Q6H PRN IV 07/28/16 21:30 08/27/16 21:29 Ondansetron HCl (Zofran Inj) 4 mg Q6H PRN IV 07/28/16 21:30 08/27/16 21:29 Pantoprazole Sodium (Protonix Tab) 40 mg QAM PO 07/29/16 09:00 08/28/16 08:59 08/03/16 08:07 40 MG Miscellaneous Medication (No Nsaids) 1 ea UD N/A 07/28/16 21:30 08/27/16 21:29 Naloxone HCl (Narcan Inj) 0.1 mg Q2M PRN IV 07/28/16 21:30 08/27/16 21:29 Multivitamins (Multivitamin Tab) 1 tab DAILY PO 07/29/16 09:00 08/28/16 08:59 08/03/16 08:07 1 TAB Ferrous Gluconate (Ferrous Gluconate Tab) 324 mg TIDM PO 07/29/16 08:30 08/28/16 08:29 08/03/16 16:46 324 MG Enteral Nutritional Formula (Boost) 1 can TIDM PO 07/29/16 21:00 08/28/16 20:59 08/03/16 16:50 1 CAN Miscellaneous (Ocaliva) 5 mg Fr@0900 PO 07/30/16 09:00 08/29/16 08:59 07/30/16 10:28 5 MG Aspirin (Ecotrin Tab) 81 mg QAM PO 07/31/16 09:00 08/30/16 08:59 08/03/16 08:08 81 MG Oxycodone HCl (Roxicodone Immediate Rel Tab) 5 mg Q12H PRN PO 07/31/16 18:00 08/09/16 17:59 Lactulose (Chronulac Syrup) 15 gm TID PO 07/31/16 14:00 08/30/16 13:59 08/03/16 20:28 15 GM Rifaximin (Xifaxan Tab) 550 mg BID PO 07/31/16 21:00 08/30/16 20:59 08/03/16 20:30 550 MG Heparin Sodium (Porcine) (Heparin Sq 5000 Unit/0.5ml) 5,000 unit Q8 SQ 08/01/16 14:00 08/31/16 13:59 08/04/16 06:15 5,000 UNIT Midodrine (Proamatine Tab) 7.5 mg TID@ PO 08/01/16 13:00 08/31/16 12:59 08/03/16 16:47 7.5 MG Octreotide Acetate (Sandostatin Inj) 100 mcg Q8H SQ 08/01/16 14:00 08/31/16 13:59 08/04/16 06:14 100 MCG Albumin Human (Albumin 25%) 12.5 gm DAILY@0900,0930 IV 08/04/16 09:00 08/05/16 23:59 Albumin Human (Albumin 25%) 12.5 gm DAILY@2100,2130 IV 08/03/16 21:00 08/05/16 23:59 08/03/16 21:28 12.5 GM Lidocaine/ Prilocaine (Emla 2.5% Crm) 1 ea Q8H EXT 08/03/16 21:00 09/02/16 20:59 08/04/16 06:14 1 EA Last 24 Hours Test 08/04/16 07:05 Assessment & Plan ileana on ckd stage 3-baseline creatinine of 1.1 to 1.3. treating for hepatorenal syndrome. creatinine did start to trend down yesterday and urinating more. lungs sound better this morning. would continue to hold the diuretics for one more day and then resume tomorrow. continue the albumin, midodrine and octreotide.
[2016-08-04 07:31] LABS: HEMATOCRIT 26.8 % (37-47); MEAN CELL VOLUME 94.7 fL (80-100); MEAN CORPUSCULAR HEMOGLOBIN 31.4 pg (25-34); MEAN CORPUSCULAR HGB CONC 33.2 g/dl (32-36); MEAN PLATELET VOLUME 11.3 fL (7.4-10.4); PLATELET COUNT 131 K/uL (130-400); RED BLOOD COUNT 2.83 M/uL (4.2-5.4); WHITE BLOOD COUNT 12.03 K/uL (4.8-10.8)
[2016-08-04] MEDS: ASPIRIN 81 MG ECTAB PO SCH (07:43)
[2016-08-04] MEDS: ALBUMIN HUMAN 25% 12.5 GM/50 ML VIAL IV SCH ×4 (07:43→21:45)
[2016-08-04] MEDS: BOOST VANILLA PO SCH ×6 (07:43→17:09)
[2016-08-04] MEDS: RIFAXIMIN TAB 550 MG TAB PO SCH ×2 (07:43→20:51)
[2016-08-04] MEDS: GABAPENTIN 300 MG CAP PO SCH ×3 (07:43→20:52)
[2016-08-04] MEDS: GUAIFENESIN 600 MG TABCR PO SCH ×2 (07:44→20:52)
--- NOTE | 2016-08-04 07:44 | Gastroenterology Progress Note ---
Progress Note Date of Service: Aug 04, 2016 Subjective Pt evaluation today including: conversation w/ patient, physical exam, chart review, lab review Pt was seen and evaluated this AM. No acute events overnight. This morning labs are pending. Continues on albumin, midodrine and octreotide with diuretics held for HRS. Seen by nephrology this AM who has decreased dosing of albumin and plans to resume diuretics /Tuesday. Creatine trending down yesterday. She has no complaints or concerns this AM. Denies fever, chills, chest pain, abdominal pain, SOB. She does not like taking lactulose as she does not like having loose BMs. There has been one BM this morning. Appears she is having 3-4 loose stools daily on current therapy. Review of Systems Constitutional: No fever, No chills Respiratory: No cough, No shortness of breath Cardiac: No chest pain Abdomen: + diarrhea, No pain, No nausea, No vomiting, No constipation, No GI bleeding Medications Current Inpatient Medications Medications (Trade) Dose Ordered Sig/Michael Route Start Time Stop Time Status Last Admin Dose Admin Prednisone (PredniSONE TAB) 1 mg QAM PO 07/27/16 09:00 08/26/16 08:59 08/03/16 08:08 1 MG Gabapentin (Neurontin Cap) 300 mg TID PO 07/26/16 21:00 08/25/16 20:59 08/03/16 20:29 300 MG Ursodiol (Actigall Cap) 600 mg BIDM PO 07/26/16 19:02 08/25/16 19:01 08/03/16 16:46 600 MG Propranolol HCl (Inderal Tab) 10 mg QAM PO 07/27/16 09:00 08/26/16 08:59 08/03/16 08:06 10 MG Cetirizine HCl (zyrTEC TAB) 10 mg DAILY PRN PO 07/26/16 19:15 08/25/16 19:14 07/31/16 09:22 10 MG Albuterol/ Ipratropium (Duoneb) 3 ml Q2H PRN INH 07/26/16 20:30 08/25/16 20:29 Guaifenesin (Mucinex Contr Rel Tab) 600 mg Q12 PO 07/26/16 21:00 08/25/16 20:59 08/03/16 20:29 600 MG Levalbuterol (Xopenex 1.25MG/ 0.5ML Neb) 1.25 mg Q6R INH 07/27/16 10:00 08/26/16 09:59 08/04/16 07:21 1.25 MG Metoclopramide HCl (Reglan Inj) 10 mg Q6H PRN IV 07/28/16 21:30 08/27/16 21:29 Ondansetron HCl (Zofran Inj) 4 mg Q6H PRN IV 07/28/16 21:30 08/27/16 21:29 Pantoprazole Sodium (Protonix Tab) 40 mg QAM PO 07/29/16 09:00 08/28/16 08:59 08/03/16 08:07 40 MG Miscellaneous Medication (No Nsaids) 1 ea UD N/A 07/28/16 21:30 08/27/16 21:29 Naloxone HCl (Narcan Inj) 0.1 mg Q2M PRN IV 07/28/16 21:30 08/27/16 21:29 Multivitamins (Multivitamin Tab) 1 tab DAILY PO 07/29/16 09:00 08/28/16 08:59 08/03/16 08:07 1 TAB Ferrous Gluconate (Ferrous Gluconate Tab) 324 mg TIDM PO 07/29/16 08:30 08/28/16 08:29 08/03/16 16:46 324 MG Enteral Nutritional Formula (Boost) 1 can TIDM PO 07/29/16 21:00 08/28/16 20:59 08/03/16 16:50 1 CAN Miscellaneous (Ocaliva) 5 mg Fr@0900 PO 07/30/16 09:00 08/29/16 08:59 07/30/16 10:28 5 MG Aspirin (Ecotrin Tab) 81 mg QAM PO 07/31/16 09:00 08/30/16 08:59 08/03/16 08:08 81 MG Oxycodone HCl (Roxicodone Immediate Rel Tab) 5 mg Q12H PRN PO 07/31/16 18:00 08/09/16 17:59 Lactulose (Chronulac Syrup) 15 gm TID PO 07/31/16 14:00 08/30/16 13:59 08/03/16 20:28 15 GM Rifaximin (Xifaxan Tab) 550 mg BID PO 07/31/16 21:00 08/30/16 20:59 08/03/16 20:30 550 MG Heparin Sodium (Porcine) (Heparin Sq 5000 Unit/0.5ml) 5,000 unit Q8 SQ 08/01/16 14:00 08/31/16 13:59 08/04/16 06:15 5,000 UNIT Midodrine (Proamatine Tab) 7.5 mg TID@08,,17 PO 08/01/16 13:00 08/31/16 12:59 08/03/16 16:47 7.5 MG Octreotide Acetate (Sandostatin Inj) 100 mcg Q8H SQ 08/01/16 14:00 08/31/16 13:59 08/04/16 06:14 100 MCG Albumin Human (Albumin 25%) 12.5 gm DAILY@0900,0930 IV 08/04/16 09:00 08/05/16 23:59 Albumin Human (Albumin 25%) 12.5 gm DAILY@2100,2130 IV 08/03/16 21:00 08/05/16 23:59 08/03/16 21:28 12.5 GM Lidocaine/ Prilocaine (Emla 2.5% Crm) 1 ea Q8H EXT 08/03/16 21:00 09/02/16 20:59 08/04/16 06:14 1 EA Objective Vital Signs Date Time Temp Pulse Resp B/P (MAP) Pulse Ox O2 Delivery O2 Flow Rate FiO2 08/04/16 07:21 67 16 93 Room Air 08/04/16 04:08 37.2 67 18 93/52 (66) 93 Room Air 08/04/16 04:00 Room Air 08/04/16 02:10 69 16 92 Room Air 08/04/16 00:04 36.8 67 20 98/53 (68) 94 Room Air 08/03/16 23:59 Room Air 08/03/16 20:00 Room Air 08/03/16 19:45 68 16 94 Room Air 08/03/16 19:04 37.0 65 22 99/53 (68) 95 Nasal Cannula 0.5 08/03/16 16:40 111/59 (76) 08/03/16 16:00 Nasal Cannula 1.0 08/03/16 15:38 36.8 66 17 97/51 (66) 97 Room Air 08/03/16 14:16 62 16 92 Room Air 08/03/16 13:31 64 18 116/53 (74) 92 Room Air 08/03/16 12:35 64 115/62 (79) 95 Room Air 08/03/16 12:03 36.6 65 18 112/65 (81) 96 Nasal Cannula 08/03/16 12:00 Nasal Cannula 2.0 08/03/16 08:33 36.6 67 16 102/52 (69) 97 Room Air 08/03/16 08:12 Nasal Cannula 2.0 Physical Exam General Appearance: no apparent distress Eyes: PERRL ENT: hearing grossly normal Neck: supple Respiratory/Chest: lungs clear, normal breath sounds Cardiovascular: regular rate, rhythm Abdomen: normal bowel sounds, non tender, soft, no organomegaly, no pulsatile mass Neurologic/Psych: alert, normal mood/affect, oriented x 3 (slow to respond but answers questions appropriately) Skin: warm/dry Laboratory Results Last 24 Hours Test 08/04/16 07:05 White Blood Count 12.03 K/uL Red Blood Count 2.83 M/uL Hemoglobin 8.9 g/dL Hematocrit 26.8 % Mean Corpuscular Volume 94.7 fL Mean Corpuscular Hemoglobin 31.4 pg Mean Corpuscular Hemoglobin Concent 33.2 g/dl RDW Standard Deviation 55.0 fL RDW Coefficient of Variation 16.2 % Platelet Count 131 K/uL Mean Platelet Volume 11.3 fL Assessment and Plan Ms. Childress is status left humeral fracture repair with a history of primary biliary cholangitis with cirrhosis with increased Creatinine on morning labs over the weekend and hepatic encephalopathy. She had TIPS procedure 04/03/13. Urine NA 5 --> 14. Kidney function appears to be slowly improving and albumin is being titrated down per nephrology. Plan to resume low dose diuretics /Tuesday. She is mentating well this AM. No abdominal pain or cramping with lacutlose but is having 3-4 loose stools daily which patient is concerned about. Discussed lactulose therapy again with MS. Childress and advised we can titrate this medication to her symptoms as she continues to clinically improve. HRS monitor labs continue octreotide, midodrine and albumin appreciate nephrology input continue to hold diuretics (outpatient dosing was lasix 100 mg and aldactone 100 mg daily) 2 GM NA diet Primary Biliary Cirrhosis Lactulose 15 gm TID OK to titrate to 3 BMs daily Xifaxan 550 mg BID ursodiol 600 mg BID [place]cal[place] 5mg once a week Inderal 10 mg daily MELD 20 GI will follow. Please call with questions or concerns. ATTESTATION: I have performed a history and physical examination of this patient and reviewed the electronic record. Specifically, on physical examination there is less encephalopathy. I have discussed the case with YVAN Rodriguez. The above note reflects my findings, conclusions, and recommendations. Antione Lopez MD
[2016-08-04] MEDS: PANTOprazole SOD 40 MG TAB PO SCH (07:45)
[2016-08-04] MEDS: MULTIVITAMIN TAB PO SCH (07:45)
[2016-08-04] MEDS: FERROUS GLUCONATE 324 MG TAB PO SCH ×3 (07:46→17:10)
[2016-08-04] MEDS: URSODIOL 300 MG CAP PO SCH ×2 (07:46→17:08)
[2016-08-04] MEDS: MIDODRINE 2.5 MG TAB PO SCH ×3 (07:46→17:10)
[2016-08-04] MEDS: PROPRANOLOL HCL 10 MG TAB PO SCH (07:47)
[2016-08-04] MEDS: LACTULOSE SYRUP 10 GM/15 ML BTL 473 ML PO SCH ×3 (07:48→20:48)
[2016-08-04 08:14] LABS: BUN/CREATININE RATIO 42.8 (10-20); CREATININE 1.6 mg/dl (0.60-1.20); POTASSIUM 3.9 mmol/L (3.5-5.1)
--- NOTE | 2016-08-04 09:28 | Pulmonology Progress Note ---
Pulmonary Progress Note Date of Service Aug 04, 2016. Attending Dr. Pulido Subjective More fatigued today. Denies any pain. Reports some non-productive cough when repositioned. States she slept well. Objective 60-yo female admitted 07/26/16 with AMS s/p fall with right humerus fracture and hypoxia. 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 - Chest CT 07/27/16: mild bibasilar infiltrative and or atelectatic change - small amount of perihepatic ascites. - VQ scan 07/27/16: very low probability for PE. ABG consistent with + AA gradient - no hypercarbia. - Echocardiogram: EF: 60-65%, mild dilation of LA, mild TR, no indication of pulmonary HTN - no shunt - 07/09: repair right proximal humerus displaced fracture and left distal radius fracture. She tolerated the procedure well with continued post-operative hypoxia and confusion. - ABG (07/31: 7.41/37-2LPM//). - Ammonia elevated improved post: Lactulose and rifaximin started with improvement - CXR 07/31/16: mild cardiac enlargement without radiographic evidence of failure. Trace right effusion. No airspace consolidation - CXR 08/03/16: persistent bilateral opacities - elevation of right hemidiaphragm - pulmonary edema > bilateral infiltrate Today: - 93-44% RA - afebrile, HD stable -soft BPs - Has not required, PRN duo-neb - WBC: 12.03, Hgb/Hct/Plts: 8.9/26.8/131 - Cr improved: 1.6 Physical Exam: Constitutional: Ill appearing female lying in hospital bed. More somnolent today. No acute distress Head: + facial symmetry Eyes: EOMi, PERRLA, no injection Mouth: Moist mucous membranes - dentures in place. No visible erythema Respiratory: Non-labored respirations. Persistent rales - less course but present bilaterally. No cough on exam. No wheeze CV: RRR, no MRG. Warm and perfused peripherally MSK/Extremities: moving symmetrically. RUE in sling and wrap. LUE in [place]. Non- pitting LE edema Neurologic: Somnolent. Answers questions appropriately. Assessment & Plan - Hypoxia: now stable on RA - CXR consistent with pulmonary edema for which fluids have been adjusted and clinical exam has improved - Continue frequent positional changes and IS encouraged Q1-hour - she does need assistance with this given her orthopaedic - Obtain sputum culture and UA+ urine culture [ orders placed ] Patient and case reviewed and plan agreed with. Data Medications: Current Inpatient Medications Medications (Trade) Dose Ordered Sig/Michael Route Start Time Stop Time Status Last Admin Dose Admin Prednisone (PredniSONE TAB) 1 mg QAM PO 07/27/16 09:00 08/26/16 08:59 08/04/16 07:47 1 MG Gabapentin (Neurontin Cap) 300 mg TID PO 07/26/16 21:00 08/25/16 20:59 08/04/16 07:43 300 MG Ursodiol (Actigall Cap) 600 mg BIDM PO 07/26/16 19:02 08/25/16 19:01 08/04/16 07:46 600 MG Propranolol HCl (Inderal Tab) 10 mg QAM PO 07/27/16 09:00 08/26/16 08:59 08/03/16 08:06 10 MG Cetirizine HCl (zyrTEC TAB) 10 mg DAILY PRN PO 07/26/16 19:15 08/25/16 19:14 07/31/16 09:22 10 MG Albuterol/ Ipratropium (Duoneb) 3 ml Q2H PRN INH 07/26/16 20:30 08/25/16 20:29 Guaifenesin (Mucinex Contr Rel Tab) 600 mg Q12 PO 07/26/16 21:00 08/25/16 20:59 08/04/16 07:44 600 MG Levalbuterol (Xopenex 1.25MG/ 0.5ML Neb) 1.25 mg Q6R INH 07/27/16 10:00 08/26/16 09:59 08/04/16 07:21 1.25 MG Metoclopramide HCl (Reglan Inj) 10 mg Q6H PRN IV 07/28/16 21:30 08/27/16 21:29 Ondansetron HCl (Zofran Inj) 4 mg Q6H PRN IV 07/28/16 21:30 08/27/16 21:29 Pantoprazole Sodium (Protonix Tab) 40 mg QAM PO 07/29/16 09:00 08/28/16 08:59 08/04/16 07:45 40 MG Miscellaneous Medication (No Nsaids) 1 ea UD N/A 07/28/16 21:30 08/27/16 21:29 Naloxone HCl (Narcan Inj) 0.1 mg Q2M PRN IV 07/28/16 21:30 08/27/16 21:29 Multivitamins (Multivitamin Tab) 1 tab DAILY PO 07/29/16 09:00 08/28/16 08:59 08/04/16 07:45 1 TAB Ferrous Gluconate (Ferrous Gluconate Tab) 324 mg TIDM PO 07/29/16 08:30 08/28/16 08:29 08/04/16 07:46 324 MG Enteral Nutritional Formula (Boost) 1 can TIDM PO 07/29/16 21:00 08/28/16 20:59 08/04/16 07:43 1 CAN Miscellaneous (Ocaliva) 5 mg Fr@0900 PO 07/30/16 09:00 08/29/16 08:59 07/30/16 10:28 5 MG Aspirin (Ecotrin Tab) 81 mg QAM PO 07/31/16 09:00 08/30/16 08:59 08/04/16 07:43 81 MG Oxycodone HCl (Roxicodone Immediate Rel Tab) 5 mg Q12H PRN PO 07/31/16 18:00 08/09/16 17:59 Lactulose (Chronulac Syrup) 15 gm TID PO 07/31/16 14:00 08/30/16 13:59 08/04/16 07:48 15 GM Rifaximin (Xifaxan Tab) 550 mg BID PO 07/31/16 21:00 08/30/16 20:59 08/04/16 07:43 550 MG Heparin Sodium (Porcine) (Heparin Sq 5000 Unit/0.5ml) 5,000 unit Q8 SQ 08/01/16 14:00 08/31/16 13:59 08/04/16 06:15 5,000 UNIT Midodrine (Proamatine Tab) 7.5 mg TID@08,12,17 PO 08/01/16 13:00 08/31/16 12:59 08/04/16 07:46 7.5 MG Octreotide Acetate (Sandostatin Inj) 100 mcg Q8H SQ 08/01/16 14:00 08/31/16 13:59 08/04/16 06:14 100 MCG Albumin Human (Albumin 25%) 12.5 gm DAILY@0900,0930 IV 08/04/16 09:00 08/05/16 23:59 08/04/16 08:25 12.5 GM Albumin Human (Albumin 25%) 12.5 gm DAILY@2100,2130 IV 08/03/16 21:00 08/05/16 23:59 08/03/16 21:28 12.5 GM Lidocaine/ Prilocaine (Emla 2.5% Crm) 1 ea Q8H EXT 08/03/16 21:00 09/02/16 20:59 08/04/16 06:14 1 EA Vital Signs: Date Time Temp Pulse Resp B/P (MAP) Pulse Ox O2 Delivery O2 Flow Rate FiO2 08/04/16 07:55 36.3 67 16 87/45 (59) 94 Nasal Cannula 08/04/16 07:21 67 16 93 Room Air 08/04/16 04:08 37.2 67 18 93/52 (66) 93 Room Air 08/04/16 04:00 Room Air 08/04/16 02:10 69 16 92 Room Air 08/04/16 00:04 36.8 67 20 98/53 (68) 94 Room Air 08/03/16 23:59 Room Air 08/03/16 20:00 Room Air 08/03/16 19:45 68 16 94 Room Air 08/03/16 19:04 37.0 65 22 99/53 (68) 95 Nasal Cannula 0.5 08/03/16 16:40 111/59 (76) 08/03/16 16:00 Nasal Cannula 1.0 08/03/16 15:38 36.8 66 17 97/51 (66) 97 Room Air 08/03/16 14:16 62 16 92 Room Air 08/03/16 13:31 64 18 116/53 (74) 92 Room Air 08/03/16 12:35 64 115/62 (79) 95 Room Air 08/03/16 12:03 36.6 65 18 112/65 (81) 96 Nasal Cannula 08/03/16 12:00 Nasal Cannula 2.0 Laboratory Results: Last 24 Hours Test 08/04/16 07:05 White Blood Count 12.03 K/uL Red Blood Count 2.83 M/uL Hemoglobin 8.9 g/dL Hematocrit 26.8 % Mean Corpuscular Volume 94.7 fL Mean Corpuscular Hemoglobin 31.4 pg Mean Corpuscular Hemoglobin Concent 33.2 g/dl RDW Standard Deviation 55.0 fL RDW Coefficient of Variation 16.2 % Platelet Count 131 K/uL Mean Platelet Volume 11.3 fL Sodium Level 137 mmol/L Potassium Level 3.9 mmol/L Chloride Level 108 mmol/L Carbon Dioxide Level 20 mmol/L Anion Gap 9.0 mmol/L Blood Urea Nitrogen 69 mg/dl Creatinine 1.60 mg/dl Est Creatinine Clear Calc Drug Dose 43.4 ml/min Estimated GFR () 40.7 Estimated GFR (Non- 35.2 BUN/Creatinine Ratio 42.8 Random Glucose 114 mg/dl Calcium Level 9.0 mg/dl
--- NOTE | 2016-08-04 18:05 | Progress Note ---
Medicine Progress Note Date & Time of Visit: Aug 04, 2016 at 14:25. 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 She is s/p ORIF on 07/28 for both areas and is doing well with respect to pain. HRS continues to improve on octreotide and midodrine. Mental status is remaining appropriate, however, patient is still extremely fatigued which is not her reported baseline. -tolerating PO -BM x 3 today -denies pain -significant fatigue still present Objective Last 8 Hrs Date Time Temp Pulse Resp B/P (MAP) Pulse Ox O2 Delivery O2 Flow Rate FiO2 08/04/16 14:07 60 16 93 Room Air 08/04/16 12:00 Room Air 08/04/16 11:57 36.4 63 16 100/54 (69) 94 Room Air 08/04/16 08:00 Room Air 08/04/16 07:55 36.3 67 16 87/45 (59) 94 Nasal Cannula 08/04/16 07:21 67 16 93 Room Air Physical Exam: GEN: WNWD, in no acute distress, mentating appropriately with fatigue, jaundiced HEENT: NC/AT, pupils are round and reactive, +scleral icterus present bilaterally CARDIO: reg rate, S1/2 heard without m/g/r LUNGS: CTA bilaterally, no crackles, rales or wheezes, good diaphragmatic excursion ABD: soft, non-tender, non-distended, no rebound or guarding, +BS EXTREMITY: RP and DP palpable 2+ bilat, no LE swelling or edema, extremities are warm and well-perfused, R wrist in soft cast and, LUE in sling NEURO: CN 2-12 grossly intact, no gross focal deficits. Generally fatigued MUSC: generalized weakness noted SKIN: warm and dry Laboratory Results: Last 24 Hours Test 08/04/16 07:05 White Blood Count 12.03 K/uL Red Blood Count 2.83 M/uL Hemoglobin 8.9 g/dL Hematocrit 26.8 % Mean Corpuscular Volume 94.7 fL Mean Corpuscular Hemoglobin 31.4 pg Mean Corpuscular Hemoglobin Concent 33.2 g/dl RDW Standard Deviation 55.0 fL RDW Coefficient of Variation 16.2 % Platelet Count 131 K/uL Mean Platelet Volume 11.3 fL Sodium Level 137 mmol/L Potassium Level 3.9 mmol/L Chloride Level 108 mmol/L Carbon Dioxide Level 20 mmol/L Anion Gap 9.0 mmol/L Blood Urea Nitrogen 69 mg/dl Creatinine 1.60 mg/dl Est Creatinine Clear Calc Drug Dose 43.4 ml/min Estimated GFR () 40.7 Estimated GFR (Non- 35.2 BUN/Creatinine Ratio 42.8 Random Glucose 114 mg/dl Calcium Level 9.0 mg/dl Assessment & Plan 60 year old female with history of Primary Biliary Cirrhosis, 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 She is s/p ORIF on 07/28 for both areas and is doing well with respect to pain. HRS continues to improve on octreotide and midodrine. Mental status is remaining appropriate, however, patient is still extremely fatigued which is not her reported baseline. 1. Right humeral fracture, left radial fracture secondary to recurrent mechanical fall ambulatory dysfunction: s/p ORIF on 07/28. Pain is controlled. DVT prophy with heparin per Ortho. Will take down shoulder dressing and apply dry dressings per Ortho recs. 2. Altered mental status-resolved, but remains very fatigued. No narcotics or pain meds of any kind. Holding trazodone, sertraline, Oxy. cont current therapy for now and monitor. 3. HRS-cont treatment with midodrine and octreotide per Nephro. OF note, pt has shot fatigue with 6 scheduled shots daily. EMLA cream was added to help with numbing the area. this is working for her and helping the discomfort. 4. Hypoxic respiratory failure, resolved. Mild pulmonary edema on xray yesterday likely 2/2 albumin administration. As she is oxygenating well, not short of breath and lungs are clear will cont with the reduced dose of albumin and hold off on diuresis, but have a low threshold to diurese if she does become short of breath. 5. Acute on chronic renal failure-CKD III-baseline creat 1.1, which continues to improve to 1.6 today. Holding Lasix and Aldactone 2/2 acute renal failure. Continue with treatment for HRS as above. Appreciate Nephro recs. 6. h/o PBC- continues on immunomodulator therapy and is s/p TIPS. Apprec GI recs. 7. Chronic constrictive pericarditis, stable on chronic steroid therapy. 8. Leukocytosis-improved 9. Anemia-stable, likely 2/2 chronic disease and post-op state 10. Thrombocytopenia likely 2/2 cirrhosis DVT proph: Heparin Full Code Dispo-cont on telemetry, likely transfer off tele tomorrow if still appears stable. Alexia Aldana DO [facility] Hospitalist. Consultants: GI, Nephro, Pulm Current Inpatient Medications: Current Inpatient Medications Medications (Trade) Dose Ordered Sig/Michael Route Start Time Stop Time Status Last Admin Dose Admin Prednisone (PredniSONE TAB) 1 mg QAM PO 07/27/16 09:00 08/26/16 08:59 08/04/16 07:47 1 MG Gabapentin (Neurontin Cap) 300 mg TID PO 07/26/16 21:00 08/25/16 20:59 08/04/16 07:43 300 MG Ursodiol (Actigall Cap) 600 mg BIDM PO 07/26/16 19:02 08/25/16 19:01 08/04/16 07:46 600 MG Propranolol HCl (Inderal Tab) 10 mg QAM PO 07/27/16 09:00 08/26/16 08:59 08/03/16 08:06 10 MG Cetirizine HCl (zyrTEC TAB) 10 mg DAILY PRN PO 07/26/16 19:15 08/25/16 19:14 07/31/16 09:22 10 MG Albuterol/ Ipratropium (Duoneb) 3 ml Q2H PRN INH 07/26/16 20:30 08/25/16 20:29 Guaifenesin (Mucinex Contr Rel Tab) 600 mg Q12 PO 07/26/16 21:00 08/25/16 20:59 08/04/16 07:44 600 MG Levalbuterol (Xopenex 1.25MG/ 0.5ML Neb) 1.25 mg Q6R INH 07/27/16 10:00 08/26/16 09:59 08/04/16 14:07 1.25 MG Metoclopramide HCl (Reglan Inj) 10 mg Q6H PRN IV 07/28/16 21:30 08/27/16 21:29 Ondansetron HCl (Zofran Inj) 4 mg Q6H PRN IV 07/28/16 21:30 08/27/16 21:29 Pantoprazole Sodium (Protonix Tab) 40 mg QAM PO 07/29/16 09:00 08/28/16 08:59 08/04/16 07:45 40 MG Miscellaneous Medication (No Nsaids) 1 ea UD N/A 07/28/16 21:30 08/27/16 21:29 Naloxone HCl (Narcan Inj) 0.1 mg Q2M PRN IV 07/28/16 21:30 08/27/16 21:29 Multivitamins (Multivitamin Tab) 1 tab DAILY PO 07/29/16 09:00 08/28/16 08:59 08/04/16 07:45 1 TAB Ferrous Gluconate (Ferrous Gluconate Tab) 324 mg TIDM PO 07/29/16 08:30 08/28/16 08:29 08/04/16 12:05 324 MG Enteral Nutritional Formula (Boost) 1 can TIDM PO 07/29/16 21:00 08/28/16 20:59 08/04/16 07:43 1 CAN Miscellaneous (Ocaliva) 5 mg Fr@0900 PO 07/30/16 09:00 08/29/16 08:59 07/30/16 10:28 5 MG Aspirin (Ecotrin Tab) 81 mg QAM PO 07/31/16 09:00 08/30/16 08:59 08/04/16 07:43 81 MG Oxycodone HCl (Roxicodone Immediate Rel Tab) 5 mg Q12H PRN PO 07/31/16 18:00 08/09/16 17:59 Lactulose (Chronulac Syrup) 15 gm TID PO 07/31/16 14:00 08/30/16 13:59 08/04/16 07:48 15 GM Rifaximin (Xifaxan Tab) 550 mg BID PO 07/31/16 21:00 08/30/16 20:59 08/04/16 07:43 550 MG Heparin Sodium (Porcine) (Heparin Sq 5000 Unit/0.5ml) 5,000 unit Q8 SQ 08/01/16 14:00 08/31/16 13:59 08/04/16 06:15 5,000 UNIT Midodrine (Proamatine Tab) 7.5 mg TID@08,12,17 PO 08/01/16 13:00 08/31/16 12:59 08/04/16 12:06 7.5 MG Octreotide Acetate (Sandostatin Inj) 100 mcg Q8H SQ 08/01/16 14:00 08/31/16 13:59 08/04/16 06:14 100 MCG Albumin Human (Albumin 25%) 12.5 gm DAILY@0900,0930 IV 08/04/16 09:00 08/05/16 23:59 08/04/16 08:25 12.5 GM Albumin Human (Albumin 25%) 12.5 gm DAILY@2100,2130 IV 08/03/16 21:00 08/05/16 23:59 08/03/16 21:28 12.5 GM Lidocaine/ Prilocaine (Emla 2.5% Crm) 1 ea Q8H EXT 08/03/16 21:00 09/02/16 20:59 08/04/16 12:06 1 EA
[2016-08-05] VITALS (11 sets, daily range): BP systolic 95–126; BP diastolic 52–71; PULSE 59–78; TEMP 36.7–36.8; O2SAT 92–94
[2016-08-05] MEDS: LEVALBUTEROL 1.25MG/0.5ML NEB INH SCH ×4 (01:29→19:30)
[2016-08-05] MEDS: LIDOCAINE/PRILOCAINE 2.5% EA CRM EXT SCH (05:10)
[2016-08-05] MEDS: OCTREOTIDE ACETATE 100 MCG/ML VIAL SQ SCH (06:18)
[2016-08-05] MEDS: HEPARIN SOD 5000 UNIT/0.5 ML CARP SQ SCH (06:18)
[2016-08-05 06:29] LABS: HEMATOCRIT 27.4 % (37-47); MEAN CELL VOLUME 93.8 fL (80-100); MEAN CORPUSCULAR HEMOGLOBIN 29.8 pg (25-34); MEAN CORPUSCULAR HGB CONC 31.8 g/dl (32-36); MEAN PLATELET VOLUME 10.6 fL (7.4-10.4); PLATELET COUNT 158 K/uL (130-400); RED BLOOD COUNT 2.92 M/uL (4.2-5.4); WHITE BLOOD COUNT 10.32 K/uL (4.8-10.8)
[2016-08-05 07:06] LABS: BUN/CREATININE RATIO 48.2 (10-20); CALCIUM 9.1 mg/dl (8.5-10.1); CREATININE 1.3 mg/dl (0.60-1.20); MAGNESIUM 3.1 mg/dl (1.8-2.4); POTASSIUM 3.8 mmol/L (3.5-5.1)
[2016-08-05] MEDS: RIFAXIMIN TAB 550 MG TAB PO SCH ×2 (07:27→21:32)
[2016-08-05] MEDS: GUAIFENESIN 600 MG TABCR PO SCH ×2 (07:27→21:32)
[2016-08-05] MEDS: MIDODRINE 2.5 MG TAB PO SCH ×2 (07:27→11:58)
[2016-08-05] MEDS: ASPIRIN 81 MG ECTAB PO SCH (07:28)
[2016-08-05] MEDS: FERROUS GLUCONATE 324 MG TAB PO SCH ×3 (07:29→17:36)
[2016-08-05] MEDS: PANTOprazole SOD 40 MG TAB PO SCH (07:29)
[2016-08-05] MEDS: GABAPENTIN 300 MG CAP PO SCH ×3 (07:29→21:33)
[2016-08-05] MEDS: MULTIVITAMIN TAB PO SCH (07:30)
[2016-08-05] MEDS: PROPRANOLOL HCL 10 MG TAB PO SCH (07:30)
[2016-08-05] MEDS: URSODIOL 300 MG CAP PO SCH ×2 (07:30→17:35)
[2016-08-05] MEDS: LACTULOSE SYRUP 10 GM/15 ML BTL 473 ML PO SCH ×3 (07:31→21:31)
--- NOTE | 2016-08-05 07:46 | Gastroenterology Progress Note ---
Progress Note Date of Service: Aug 05, 2016 Subjective Pt evaluation today including: conversation w/ patient, physical exam, chart review, lab review Pt was seen and evaluated this AM. No acute events overnight. Kidney function continues to improve on albumin, midodrine and octreotide with diuretics held for HRS. Will likely resume low dose diuretics today - will wait for nephrology evaluation. LFTs increasing - TBili 3 --> 5. Continue to be alert and oriented x 3. Still not mentating at baseline. Denies any complaints or concerns. She told me she had a good breakfast this AM. About 60% of her tray remains. Review of Systems Constitutional: No fever, No chills Cardiac: No chest pain Abdomen: + diarrhea, No pain, No nausea, No vomiting, No constipation, No GI bleeding Medications Current Inpatient Medications Medications (Trade) Dose Ordered Sig/Michael Route Start Time Stop Time Status Last Admin Dose Admin Prednisone (PredniSONE TAB) 1 mg QAM PO 07/27/16 09:00 08/26/16 08:59 08/05/16 07:29 1 MG Gabapentin (Neurontin Cap) 300 mg TID PO 07/26/16 21:00 08/25/16 20:59 08/05/16 07:29 300 MG Ursodiol (Actigall Cap) 600 mg BIDM PO 07/26/16 19:02 08/25/16 19:01 08/05/16 07:30 600 MG Propranolol HCl (Inderal Tab) 10 mg QAM PO 07/27/16 09:00 08/26/16 08:59 08/03/16 08:06 10 MG Cetirizine HCl (zyrTEC TAB) 10 mg DAILY PRN PO 07/26/16 19:15 08/25/16 19:14 07/31/16 09:22 10 MG Albuterol/ Ipratropium (Duoneb) 3 ml Q2H PRN INH 07/26/16 20:30 08/25/16 20:29 Guaifenesin (Mucinex Contr Rel Tab) 600 mg Q12 PO 07/26/16 21:00 08/25/16 20:59 08/05/16 07:27 600 MG Levalbuterol (Xopenex 1.25MG/ 0.5ML Neb) 1.25 mg Q6R INH 07/27/16 10:00 08/26/16 09:59 08/05/16 07:16 1.25 MG Metoclopramide HCl (Reglan Inj) 10 mg Q6H PRN IV 07/28/16 21:30 08/27/16 21:29 Ondansetron HCl (Zofran Inj) 4 mg Q6H PRN IV 07/28/16 21:30 08/27/16 21:29 Pantoprazole Sodium (Protonix Tab) 40 mg QAM PO 07/29/16 09:00 08/28/16 08:59 08/05/16 07:29 40 MG Miscellaneous Medication (No Nsaids) 1 ea UD N/A 07/28/16 21:30 08/27/16 21:29 Naloxone HCl (Narcan Inj) 0.1 mg Q2M PRN IV 07/28/16 21:30 08/27/16 21:29 Multivitamins (Multivitamin Tab) 1 tab DAILY PO 07/29/16 09:00 08/28/16 08:59 08/05/16 07:30 1 TAB Ferrous Gluconate (Ferrous Gluconate Tab) 324 mg TIDM PO 07/29/16 08:30 08/28/16 08:29 08/05/16 07:29 324 MG Enteral Nutritional Formula (Boost) 1 can TIDM PO 07/29/16 21:00 08/28/16 20:59 08/04/16 17:09 1 CAN Miscellaneous (Ocaliva) 5 mg Fr@0900 PO 07/30/16 09:00 08/29/16 08:59 07/30/16 10:28 5 MG Aspirin (Ecotrin Tab) 81 mg QAM PO 07/31/16 09:00 08/30/16 08:59 08/05/16 07:28 81 MG Oxycodone HCl (Roxicodone Immediate Rel Tab) 5 mg Q12H PRN PO 07/31/16 18:00 08/09/16 17:59 Lactulose (Chronulac Syrup) 15 gm TID PO 07/31/16 14:00 08/30/16 13:59 08/04/16 17:39 15 GM Rifaximin (Xifaxan Tab) 550 mg BID PO 07/31/16 21:00 08/30/16 20:59 6/29/17 07:27 550 MG Heparin Sodium (Porcine) (Heparin Sq 5000 Unit/0.5ml) 5,000 unit Q8 SQ 08/01/16 14:00 08/31/16 13:59 08/05/16 06:18 5,000 UNIT Midodrine (Proamatine Tab) 7.5 mg TID@08,12,17 PO 08/01/16 13:00 08/31/16 12:59 08/05/16 07:27 7.5 MG Octreotide Acetate (Sandostatin Inj) 100 mcg Q8H SQ 08/01/16 14:00 08/31/16 13:59 08/05/16 06:18 100 MCG Albumin Human (Albumin 25%) 12.5 gm DAILY@0900,0930 IV 08/04/16 09:00 08/05/16 23:59 08/04/16 08:25 12.5 GM Albumin Human (Albumin 25%) 12.5 gm DAILY@2100,2130 IV 08/03/16 21:00 08/05/16 23:59 08/04/16 21:45 12.5 GM Lidocaine/ Prilocaine (Emla 2.5% Crm) 1 ea Q8H EXT 08/03/16 21:00 09/02/16 20:59 08/05/16 05:10 1 EA Objective Vital Signs Date Time Temp Pulse Resp B/P (MAP) Pulse Ox O2 Delivery O2 Flow Rate FiO2 08/05/16 07:16 78 16 92 Room Air 08/05/16 04:00 92 Room Air 08/05/16 04:00 36.7 63 18 95/52 (66) 94 Room Air 08/05/16 01:29 59 16 94 Room Air 08/05/16 00:00 36.7 60 18 114/65 (81) 94 Room Air 08/04/16 23:59 94 Room Air 08/04/16 20:00 93 Room Air 08/04/16 19:34 36.4 59 19 103/58 (73) 93 Room Air 08/04/16 19:00 54 16 94 Room Air 08/04/16 16:00 Room Air 08/04/16 15:50 36.9 61 19 104/57 (73) 94 Room Air 08/04/16 14:07 60 16 93 Room Air 08/04/16 12:00 Room Air 08/04/16 11:57 36.4 63 16 100/54 (69) 94 Room Air 08/04/16 08:00 Room Air 08/04/16 07:55 36.3 67 16 87/45 (59) 94 Nasal Cannula Physical Exam General Appearance: no apparent distress Eyes: PERRL ENT: hearing grossly normal Neck: supple Respiratory/Chest: lungs clear Cardiovascular: regular rate, rhythm Abdomen: normal bowel sounds, non tender, soft, no organomegaly Neurologic/Psych: alert, oriented x 3 Skin: warm/dry, no rash, + jaundice Laboratory Results Last 24 Hours Test 08/05/16 06:06 08/05/16 07:41 White Blood Count 10.32 K/uL Red Blood Count 2.92 M/uL Hemoglobin 8.7 g/dL Hematocrit 27.4 % Mean Corpuscular Volume 93.8 fL Mean Corpuscular Hemoglobin 29.8 pg Mean Corpuscular Hemoglobin Concent 31.8 g/dl RDW Standard Deviation 56.4 fL RDW Coefficient of Variation 16.9 % Platelet Count 158 K/uL Mean Platelet Volume 10.6 fL Sodium Level 140 mmol/L Potassium Level 3.8 mmol/L Chloride Level 111 mmol/L Carbon Dioxide Level 21 mmol/L Anion Gap 8.0 mmol/L Blood Urea Nitrogen 63 mg/dl Creatinine 1.30 mg/dl Est Creatinine Clear Calc Drug Dose 50.3 ml/min Estimated GFR () 52.4 Estimated GFR (Non- 45.2 BUN/Creatinine Ratio 48.2 Random Glucose 90 mg/dl Calcium Level 9.1 mg/dl Magnesium Level 3.1 mg/dl Total Bilirubin 5.2 mg/dl Direct Bilirubin 3.6 mg/dl Aspartate Amino Transf (AST/SGOT) 31 U/L Alanine Aminotransferase (ALT/SGPT) 13 U/L Alkaline Phosphatase 157 U/L Ammonia 51.0 umol/L Total Protein 5.5 gm/dl Albumin 3.6 gm/dl Assessment and Plan Ms. Childress is status left humeral fracture repair with a history of primary biliary cholangitis with cirrhosis with increased Creatinine on morning labs over the weekend and hepatic encephalopathy. She had TIPS procedure 04/03/13. Urine NA 5 --> 14. Kidney function appears to be slowly improving and albumin is being titrated down per nephrology. Plan to resume low dose diuretics /Tuesday. She is mentating well this AM. No abdominal pain or cramping with lacutlose but is having 3-4 loose stools daily which patient is concerned about. Discussed lactulose therapy again with MS. Childress and advised we can titrate this medication to her symptoms as she continues to clinically improve. TBili increased on repeat labs this AM. MELD labs tomorrow HRS monitor labs continue octreotide, midodrine and albumin appreciate nephrology input resume low dose diuretics if OK by nephrology (outpatient dosing was lasix 100 mg and aldactone 100 mg daily) 2 GM NA diet Primary Biliary Cirrhosis Lactulose 15 gm TID OK to titrate to 3 BMs daily Xifaxan 550 mg BID ursodiol 600 mg BID [place] 5mg once a week Inderal 10 mg daily MELD 17 GI will follow. Please call with questions or concerns. ATTESTATION: I have performed a history and physical examination of this patient and reviewed the electronic record. Specifically, on physical examination patient is oriented X 3 but has difficulty with serial 7's. I have discussed the case with YVAN Rodriguez. The above note reflects my findings, conclusions, and recommendations. Antione Lopez MD
[2016-08-05] MEDS: BOOST VANILLA PO SCH ×6 (07:48→17:36)
[2016-08-05] MEDS: ALBUMIN HUMAN 25% 12.5 GM/50 ML VIAL IV SCH ×2 (07:49→08:27)
[2016-08-05 08:11] LABS: INR 1.2 (0.9-1.1); PROTHROMBIN TIME (PATIENT) 13.4 SECONDS (9.0-12.0)
--- NOTE | 2016-08-05 08:54 | Pulmonology Progress Note ---
Pulmonary Progress Note Date of Service Aug 05, 2016. Attending Dr. herring Subjective Denies any dyspnea, cough or wheeze. Decreased appetite. Objective 60-yo female admitted 07/26/16 with AMS s/p fall with right humerus fracture and hypoxia. PMHx : primary biliary cirrhosis s/p TIPS, portal HTN, h.o constrictive pericarditis - chronic low-dose steroid: 1mg prednisone, formally on O2 but since discontinued, h/o recurrent rt pleural effusion, recurrent mechanical falls, h/o chronic anemia, CKD III, h/o rib fx, chronic elevation of hemidiaphragm Patient admitted with h/o AMS - elevated ammonia, hypoxia, and recurrent falls resulting in left radial fx as well as fx to the proximal right humeral head and neck. Today: - 93-44% RA - afebrile, HD stable -soft BPs - Has not required, PRN duo-neb - WBC: 12.03, Hgb/Hct/Plts: 8.9/26.8/131 - Cr improved: 1.6 Physical Exam: Constitutional: Ill appearing female lying in hospital bed. Mental status improved today. No acute distress Head: + facial symmetry Eyes: EOMi, PERRLA, no injection Mouth: Moist mucous membranes - dentures in place. No visible erythema Respiratory: Non-labored respirations. Fine crackles at bases. No cough on exam. No wheeze CV: RRR, no MRG. Warm and perfused peripherally MSK/Extremities: moving symmetrically. RUE in sling and wrap. LUE in [place]. Non- pitting LE edema Neurologic: Alert, communicative and answering questions appropriately. Assessment & Plan - CXR consistent with pulmonary edema - clinically improving with fluid adjustment - Continue frequent positional changes and IS encouraged Q1-hour - she does need assistance with this given her orthopaedic - Patient hypoxia resolved - clinically improved from a pulmonary standpoint: Pulmonary to sign off at this time but would be happy to re-evaluate PRN - Thank you for this consultation. Patient and case reviewed and plan agreed with. Data Medications: Current Inpatient Medications Medications (Trade) Dose Ordered Sig/Michael Route Start Time Stop Time Status Last Admin Dose Admin Prednisone (PredniSONE TAB) 1 mg QAM PO 07/27/16 09:00 08/26/16 08:59 08/05/16 07:29 1 MG Gabapentin (Neurontin Cap) 300 mg TID PO 6/19/17 21:00 08/25/16 20:59 08/05/16 07:29 300 MG Ursodiol (Actigall Cap) 600 mg BIDM PO 07/26/16 19:02 08/25/16 19:01 08/05/16 07:30 600 MG Propranolol HCl (Inderal Tab) 10 mg QAM PO 07/27/16 09:00 08/26/16 08:59 08/03/16 08:06 10 MG Cetirizine HCl (zyrTEC TAB) 10 mg DAILY PRN PO 07/26/16 19:15 08/25/16 19:14 07/31/16 09:22 10 MG Albuterol/ Ipratropium (Duoneb) 3 ml Q2H PRN INH 07/26/16 20:30 08/25/16 20:29 Guaifenesin (Mucinex Contr Rel Tab) 600 mg Q12 PO 07/26/16 21:00 08/25/16 20:59 08/05/16 07:27 600 MG Levalbuterol (Xopenex 1.25MG/ 0.5ML Neb) 1.25 mg Q6R INH 07/27/16 10:00 08/26/16 09:59 08/05/16 07:16 1.25 MG Metoclopramide HCl (Reglan Inj) 10 mg Q6H PRN IV 07/28/16 21:30 08/27/16 21:29 Ondansetron HCl (Zofran Inj) 4 mg Q6H PRN IV 07/28/16 21:30 08/27/16 21:29 Pantoprazole Sodium (Protonix Tab) 40 mg QAM PO 07/29/16 09:00 08/28/16 08:59 08/05/16 07:29 40 MG Miscellaneous Medication (No Nsaids) 1 ea UD N/A 07/28/16 21:30 08/27/16 21:29 Naloxone HCl (Narcan Inj) 0.1 mg Q2M PRN IV 07/28/16 21:30 08/27/16 21:29 Multivitamins (Multivitamin Tab) 1 tab DAILY PO 07/29/16 09:00 08/28/16 08:59 08/05/16 07:30 1 TAB Ferrous Gluconate (Ferrous Gluconate Tab) 324 mg TIDM PO 07/29/16 08:30 08/28/16 08:29 08/05/16 07:29 324 MG Enteral Nutritional Formula (Boost) 1 can TIDM PO 07/29/16 21:00 08/28/16 20:59 08/05/16 07:48 1 CAN Miscellaneous (Ocaliva) 5 mg Fr@0900 PO 07/30/16 09:00 08/29/16 08:59 07/30/16 10:28 5 MG Aspirin (Ecotrin Tab) 81 mg QAM PO 07/31/16 09:00 08/30/16 08:59 08/05/16 07:28 81 MG Oxycodone HCl (Roxicodone Immediate Rel Tab) 5 mg Q12H PRN PO 07/31/16 18:00 08/09/16 17:59 Lactulose (Chronulac Syrup) 15 gm TID PO 07/31/16 14:00 08/30/16 13:59 08/04/16 17:39 15 GM Rifaximin (Xifaxan Tab) 550 mg BID PO 07/31/16 21:00 08/30/16 20:59 08/05/16 07:27 550 MG Heparin Sodium (Porcine) (Heparin Sq 5000 Unit/0.5ml) 5,000 unit Q8 SQ 08/01/16 14:00 08/31/16 13:59 08/05/16 06:18 5,000 UNIT Midodrine (Proamatine Tab) 7.5 mg TID@,, PO 08/01/16 13:00 08/31/16 12:59 08/05/16 07:27 7.5 MG Octreotide Acetate (Sandostatin Inj) 100 mcg Q8H SQ 08/01/16 14:00 08/31/16 13:59 08/05/16 06:18 100 MCG Albumin Human (Albumin 25%) 12.5 gm DAILY@0900,0930 IV 08/04/16 09:00 08/05/16 23:59 08/05/16 08:27 12.5 GM Albumin Human (Albumin 25%) 12.5 gm DAILY@2100,2130 IV 08/03/16 21:00 08/05/16 23:59 08/04/16 21:45 12.5 GM Lidocaine/ Prilocaine (Emla 2.5% Crm) 1 ea Q8H EXT 08/03/16 21:00 09/02/16 20:59 08/05/16 05:10 1 EA Vital Signs: Date Time Temp Pulse Resp B/P (MAP) Pulse Ox O2 Delivery O2 Flow Rate FiO2 08/05/16 08:00 Room Air 08/05/16 07:50 36.7 74 20 108/52 (70) 94 Room Air 08/05/16 07:16 78 16 92 Room Air 08/05/16 04:00 92 Room Air 08/05/16 04:00 36.7 63 18 95/52 (66) 94 Room Air 08/05/16 01:29 59 16 94 Room Air 08/05/16 00:00 36.7 60 18 114/65 (81) 94 Room Air 08/04/16 23:59 94 Room Air 08/04/16 20:00 93 Room Air 08/04/16 19:34 36.4 59 19 103/58 (73) 93 Room Air 08/04/16 19:00 54 16 94 Room Air 08/04/16 16:00 Room Air 08/04/16 15:50 36.9 61 19 104/57 (73) 94 Room Air 08/04/16 14:07 60 16 93 Room Air 08/04/16 12:00 Room Air 08/04/16 11:57 36.4 63 16 100/54 (69) 94 Room Air Laboratory Results: Last 24 Hours Test 08/05/16 06:06 08/05/16 07:47 White Blood Count 10.32 K/uL Red Blood Count 2.92 M/uL Hemoglobin 8.7 g/dL Hematocrit 27.4 % Mean Corpuscular Volume 93.8 fL Mean Corpuscular Hemoglobin 29.8 pg Mean Corpuscular Hemoglobin Concent 31.8 g/dl RDW Standard Deviation 56.4 fL RDW Coefficient of Variation 16.9 % Platelet Count 158 K/uL Mean Platelet Volume 10.6 fL Sodium Level 140 mmol/L Potassium Level 3.8 mmol/L Chloride Level 111 mmol/L Carbon Dioxide Level 21 mmol/L Anion Gap 8.0 mmol/L Blood Urea Nitrogen 63 mg/dl Creatinine 1.30 mg/dl Est Creatinine Clear Calc Drug Dose 50.3 ml/min Estimated GFR () 52.4 Estimated GFR (Non- 45.2 BUN/Creatinine Ratio 48.2 Random Glucose 90 mg/dl Calcium Level 9.1 mg/dl Magnesium Level 3.1 mg/dl Total Bilirubin 5.2 mg/dl Direct Bilirubin 3.6 mg/dl Aspartate Amino Transf (AST/SGOT) 31 U/L Alanine Aminotransferase (ALT/SGPT) 13 U/L Alkaline Phosphatase 157 U/L Ammonia 51.0 umol/L Total Protein 5.5 gm/dl Albumin 3.6 gm/dl Prothrombin Time 13.4 SECONDS Prothromb Time International Ratio 1.2
[2016-08-05] MEDS ORDERED: FUROSEMIDE 40 MG TAB PO ONE (13:00)
[2016-08-05] MEDS ORDERED: SPIRONOLACTONE 25 MG TAB PO ONE (13:00)
--- NOTE | 2016-08-05 15:07 | Nephrology Progress Note ---
Nephrology Progress Note Date of Service: Aug 05, 2016. Subjective 60 yo female with PBC with ileana from HRS. creatinine improving and pt feels better. still rather swollen. appetite is good and pt more awake. Objective Date Time Temp Pulse Resp B/P (MAP) Pulse Ox O2 Delivery O2 Flow Rate FiO2 08/05/16 14:10 67 16 93 Room Air 08/05/16 13:58 36.8 70 20 94 0.5 08/05/16 12:00 Room Air 08/05/16 11:59 36.8 70 20 126/65 (85) 94 08/05/16 08:00 Room Air 08/05/16 07:50 36.7 74 20 108/52 (70) 94 Room Air 08/05/16 07:16 78 16 92 Room Air 08/05/16 04:00 92 Room Air 08/05/16 04:00 36.7 63 18 95/52 (66) 94 Room Air 08/05/16 01:29 59 16 94 Room Air 08/05/16 00:00 36.7 60 18 114/65 (81) 94 Room Air 08/04/16 23:59 94 Room Air 08/04/16 20:00 93 Room Air 08/04/16 19:34 36.4 59 19 103/58 (73) 93 Room Air 08/04/16 19:00 54 16 94 Room Air 08/04/16 16:00 Room Air 08/04/16 15:50 36.9 61 19 104/57 (73) 94 Room Air Physical Exam: General-aaox3 Eyes-no scleral icterus ENT-mmm Neck-supple Lungs-clear Heart-regular Abdomen-bs+, soft Extremities-significant swelling in legs Neuro-nonfocal Current Inpatient Medications Medications (Trade) Dose Ordered Sig/Michael Route Start Time Stop Time Status Last Admin Dose Admin Prednisone (PredniSONE TAB) 1 mg QAM PO 07/27/16 09:00 08/26/16 08:59 08/05/16 07:29 1 MG Gabapentin (Neurontin Cap) 300 mg TID PO 07/26/16 21:00 08/25/16 20:59 08/05/16 13:54 300 MG Ursodiol (Actigall Cap) 600 mg BIDM PO 07/26/16 19:02 08/25/16 19:01 08/05/16 07:30 600 MG Propranolol HCl (Inderal Tab) 10 mg QAM PO 07/27/16 09:00 08/26/16 08:59 08/03/16 08:06 10 MG Cetirizine HCl (zyrTEC TAB) 10 mg DAILY PRN PO 07/26/16 19:15 08/25/16 19:14 07/31/16 09:22 10 MG Albuterol/ Ipratropium (Duoneb) 3 ml Q2H PRN INH 07/26/16 20:30 08/25/16 20:29 Guaifenesin (Mucinex Contr Rel Tab) 600 mg Q12 PO 07/26/16 21:00 08/25/16 20:59 08/05/16 07:27 600 MG Levalbuterol (Xopenex 1.25MG/ 0.5ML Neb) 1.25 mg Q6R INH 07/27/16 10:00 08/26/16 09:59 08/05/16 14:10 1.25 MG Metoclopramide HCl (Reglan Inj) 10 mg Q6H PRN IV 07/28/16 21:30 08/27/16 21:29 Ondansetron HCl (Zofran Inj) 4 mg Q6H PRN IV 07/28/16 21:30 08/27/16 21:29 Pantoprazole Sodium (Protonix Tab) 40 mg QAM PO 07/29/16 09:00 08/28/16 08:59 08/05/16 07:29 40 MG Miscellaneous Medication (No Nsaids) 1 ea UD N/A 07/28/16 21:30 08/27/16 21:29 Naloxone HCl (Narcan Inj) 0.1 mg Q2M PRN IV 07/28/16 21:30 08/27/16 21:29 Multivitamins (Multivitamin Tab) 1 tab DAILY PO 07/29/16 09:00 08/28/16 08:59 08/05/16 07:30 1 TAB Ferrous Gluconate (Ferrous Gluconate Tab) 324 mg TIDM PO 07/29/16 08:30 08/28/16 08:29 08/05/16 11:58 324 MG Enteral Nutritional Formula (Boost) 1 can TIDM PO 07/29/16 21:00 08/28/16 20:59 08/05/16 07:48 1 CAN Miscellaneous (Ocaliva) 5 mg Fr@0900 PO 07/30/16 09:00 08/29/16 08:59 07/30/16 10:28 5 MG Aspirin (Ecotrin Tab) 81 mg QAM PO 07/31/16 09:00 08/30/16 08:59 08/05/16 07:28 81 MG Oxycodone HCl (Roxicodone Immediate Rel Tab) 5 mg Q12H PRN PO 07/31/16 18:00 08/09/16 17:59 Lactulose (Chronulac Syrup) 15 gm TID PO 07/31/16 14:00 08/30/16 13:59 08/04/16 17:39 15 GM Rifaximin (Xifaxan Tab) 550 mg BID PO 07/31/16 21:00 08/30/16 20:59 08/05/16 07:27 550 MG Enoxaparin Sodium (Lovenox Inj) 40 mg QAM SQ 08/06/16 09:00 09/05/16 08:59 Spironolactone (Aldactone Tab) 37.5 mg QAM PO 08/06/16 09:00 09/05/16 08:59 Furosemide (Lasix Tab) 40 mg QAM PO 08/06/16 09:00 09/05/16 08:59 Lidocaine/ Prilocaine (Emla 2.5% Crm) 1 ea DAILY@0800 EXT 08/06/16 08:00 09/05/16 07:59 Last 24 Hours Test 08/05/16 06:06 08/05/16 07:47 White Blood Count 10.32 K/uL Red Blood Count 2.92 M/uL Hemoglobin 8.7 g/dL Hematocrit 27.4 % Mean Corpuscular Volume 93.8 fL Mean Corpuscular Hemoglobin 29.8 pg Mean Corpuscular Hemoglobin Concent 31.8 g/dl RDW Standard Deviation 56.4 fL RDW Coefficient of Variation 16.9 % Platelet Count 158 K/uL Mean Platelet Volume 10.6 fL Sodium Level 140 mmol/L Potassium Level 3.8 mmol/L Chloride Level 111 mmol/L Carbon Dioxide Level 21 mmol/L Anion Gap 8.0 mmol/L Blood Urea Nitrogen 63 mg/dl Creatinine 1.30 mg/dl Est Creatinine Clear Calc Drug Dose 50.3 ml/min Estimated GFR () 52.4 Estimated GFR (Non- 45.2 BUN/Creatinine Ratio 48.2 Random Glucose 90 mg/dl Calcium Level 9.1 mg/dl Magnesium Level 3.1 mg/dl Total Bilirubin 5.2 mg/dl Direct Bilirubin 3.6 mg/dl Aspartate Amino Transf (AST/SGOT) 31 U/L Alanine Aminotransferase (ALT/SGPT) 13 U/L Alkaline Phosphatase 157 U/L Ammonia 51.0 umol/L Total Protein 5.5 gm/dl Albumin 3.6 gm/dl 25-Hydroxy Vitamin D Total 21.5 ng/ml Prothrombin Time 13.4 SECONDS Prothromb Time International Ratio 1.2 Assessment & Plan ileana on ckd stage 3-baseline creatinine of 1.1 to 1.3. treating for hepatorenal syndrome. creatinine much improved. stopping midodrine, octreotide and albumin and restarted diuretics at half the outpt dose. will follow labs. if creatinine continue to improve and swelling improves, hopefully will be able to be sent to rehab next week. spoke to who would like to be here to speak to test case developer when the time comes for discharge planning.
--- NOTE | 2016-08-05 17:19 | Progress Note ---
Medicine Progress Note Date & Time of Visit: Aug 05, 2016 at 12:43. 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 She is s/p ORIF on 07/28 for both areas and is doing well with respect to pain. HRS improved after octreotide and midodrine. Mental status is remaining appropriate, and energy level is improved. Detecting shot fatigue and feeling somewhat depressed. She was very uplifted when I told her we would be cancelling the 6 shots and going to one daily. Objective Last 8 Hrs Date Time Temp Pulse Resp B/P (MAP) Pulse Ox O2 Delivery O2 Flow Rate FiO2 08/05/16 12:00 Room Air 08/05/16 11:59 36.8 70 20 126/65 (85) 94 08/05/16 08:00 Room Air 08/05/16 07:50 36.7 74 20 108/52 (70) 94 Room Air 08/05/16 07:16 78 16 92 Room Air Physical Exam: GEN: WNWD, in no acute distress, mentating appropriately with fatigue, jaundiced HEENT: NC/AT, pupils are round and reactive, +scleral icterus present bilaterally CARDIO: reg rate, S1/2 heard without m/g/r LUNGS: CTA bilaterally, no crackles, rales or wheezes, good diaphragmatic excursion ABD: soft, non-tender, non-distended, no rebound or guarding, +BS EXTREMITY: RP and DP palpable 2+ bilat, no LE swelling or edema, extremities are warm and well-perfused, R wrist in soft cast and, LUE in sling, [place] in place on R shoulder incision NEURO: CN 2-12 grossly intact, no gross focal deficits. MUSC: generalized weakness noted which appears improved today SKIN: warm and dry Laboratory Results: 08/05/16 06:06 08/05/16 06:06 Test 07/26/16 17:00 07/31/16 05:35 07/31/16 09:37 08/01/16 08:13 Lipase 125 U/L (73-393) Globulin 3.4 gm/dl (2.5-4.0) Albumin/Globulin Ratio 0.7 (0.9-2) Arterial Blood pH 7.41 (7.35-7.45) Arterial Blood Partial Pressure CO2 37 mmHg (35-46) Arterial Blood Partial Pressure O2 77 mm/Hg (80-95) Arterial Blood HCO3 23 mmol/L (19-24) Arterial Blood Oxygen Saturation 94.9 % (90-95) Arterial Blood Base Excess -1.2 mEq/L (-9-1.8) Arterial Blood Gas Delivery 2l Amado Test POS (POS) Hypochromasia PRESENT Test 08/02/16 00:00 08/02/16 07:51 08/03/16 06:59 08/05/16 06:06 Urine Random Sodium 14 mEq/L Procalcitonin 1.38 ng/ml (0-0.5) Immature Granulocyte % (Auto) 1.3 % White Blood Count 11.47 K/uL (4.8-10.8) Red Blood Count 2.69 M/uL (4.2-5.4) 2.92 M/uL (4.2-5.4) Hemoglobin 8.6 g/dL (12.0-16.0) Hematocrit 25.4 % (37-47) Mean Corpuscular Volume 94.4 fL (80-100) 93.8 fL (80-100) Mean Corpuscular Hemoglobin 32.0 pg (25-34) 29.8 pg (25-34) Mean Corpuscular Hemoglobin Concent 33.9 g/dl (32-36) 31.8 g/dl (32-36) Platelet Count 112 K/uL (130-400) Mean Platelet Volume 11.3 fL (7.4-10.4) 10.6 fL (7.4-10.4) Neutrophils (%) (Auto) 77.7 % Lymphocytes (%) (Auto) 7.9 % Monocytes (%) (Auto) 10.1 % Eosinophils (%) (Auto) 2.8 % Basophils (%) (Auto) 0.2 % Neutrophils # (Auto) 8.91 K/uL (1.4-6.5) Lymphocytes # (Auto) 0.91 K/uL (1.2-3.4) Monocytes # (Auto) 1.16 K/uL (0.11-0.59) Eosinophils # (Auto) 0.32 K/uL (0-0.5) Basophils # (Auto) 0.02 K/uL (0-0.2) Immature Granulocyte # (Auto) 0.15 K/uL (0.00-0.02) Polychromasia 1+ Basophilic Stippling 1+ RDW Standard Deviation 56.4 fL (36.4-46.3) RDW Coefficient of Variation 16.9 % (11.5-14.5) Anion Gap 8.0 mmol/L (3-11) Est Creatinine Clear Calc Drug Dose 50.3 ml/min Estimated GFR () 52.4 Estimated GFR (Non- 45.2 BUN/Creatinine Ratio 48.2 (10-20) Calcium Level 9.1 mg/dl (8.5-10.1) Magnesium Level 3.1 mg/dl (1.8-2.4) Total Bilirubin 5.2 mg/dl (0.2-1) Direct Bilirubin 3.6 mg/dl (0-0.2) Aspartate Amino Transf (AST/SGOT) 31 U/L (15-37) Alanine Aminotransferase (ALT/SGPT) 13 U/L (12-78) Alkaline Phosphatase 157 U/L (45-117) Ammonia 51.0 umol/L (11-32) Total Protein 5.5 gm/dl (6.4-8.2) Albumin 3.6 gm/dl (3.4-5.0) 25-Hydroxy Vitamin D Total 21.5 ng/ml (30-100) Test 08/05/16 07:47 Prothrombin Time 13.4 SECONDS (9.0-12.0) Prothromb Time International Ratio 1.2 (0.9-1.1) Last 24 Hours Test 08/05/16 06:06 08/05/16 07:47 White Blood Count 10.32 K/uL Red Blood Count 2.92 M/uL Hemoglobin 8.7 g/dL Hematocrit 27.4 % Mean Corpuscular Volume 93.8 fL Mean Corpuscular Hemoglobin 29.8 pg Mean Corpuscular Hemoglobin Concent 31.8 g/dl RDW Standard Deviation 56.4 fL RDW Coefficient of Variation 16.9 % Platelet Count 158 K/uL Mean Platelet Volume 10.6 fL Sodium Level 140 mmol/L Potassium Level 3.8 mmol/L Chloride Level 111 mmol/L Carbon Dioxide Level 21 mmol/L Anion Gap 8.0 mmol/L Blood Urea Nitrogen 63 mg/dl Creatinine 1.30 mg/dl Est Creatinine Clear Calc Drug Dose 50.3 ml/min Estimated GFR () 52.4 Estimated GFR (Non- 45.2 BUN/Creatinine Ratio 48.2 Random Glucose 90 mg/dl Calcium Level 9.1 mg/dl Magnesium Level 3.1 mg/dl Total Bilirubin 5.2 mg/dl Direct Bilirubin 3.6 mg/dl Aspartate Amino Transf (AST/SGOT) 31 U/L Alanine Aminotransferase (ALT/SGPT) 13 U/L Alkaline Phosphatase 157 U/L Ammonia 51.0 umol/L Total Protein 5.5 gm/dl Albumin 3.6 gm/dl 25-Hydroxy Vitamin D Total 21.5 ng/ml Prothrombin Time 13.4 SECONDS Prothromb Time International Ratio 1.2 Assessment & Plan 60 year old female with history of Primary Biliary Cirrhosis, 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 She is s/p ORIF on 07/28 for both areas and is doing well with respect to pain. HRS improved after octreotide and midodrine. Mental status is remaining appropriate, and energy level is improved. Detecting shot fatigue and feeling somewhat depressed. She was very uplifted when I told her we would be cancelling the 6 shots and going to one daily. 1. Right humeral fracture, left radial fracture secondary to recurrent mechanical fall ambulatory dysfunction: s/p ORIF on 07/28. Pain is controlled. Will take down shoulder dressing and apply dry dressings per Ortho recs on . [place] in place with no erythema or oozing from closed incision. 2. Altered mental status-resolved, improved energy level today. No narcotics or pain meds of any kind. Holding trazodone, sertraline, Oxy. cont current therapy for now and monitor. 3. HRS-with clinical improvement and improved creatinine. Per Nephro Octreotide and Midodrine were stopped. Diuretics including Lasix and aldactone were started at 50% today. will monitor PRP and clinical status overnight. 4. Acute on chronic renal failure-CKD III-baseline creat 1.1, She is 1.[address] as above. 6. h/o PBC- continues on immunomodulator therapy and is s/p TIPS. Due for pills tomorrow, which are ordered. Apprec GI recs. 7. Chronic constrictive pericarditis, stable on chronic steroid therapy. 8. Leukocytosis-resolved 9. Anemia-stable, likely 2/2 chronic disease and post-op state 10. Thrombocytopenia likely 2/2 cirrhosis-resolved to normal levels DVT proph: changed to Lovenox. Full Code Dispo-to med surg Alexia Aldana DO [facility] Hospitalist. Consultants: GI, Nephro, Pulm Current Inpatient Medications: Current Inpatient Medications Medications (Trade) Dose Ordered Sig/Michael Route Start Time Stop Time Status Last Admin Dose Admin Prednisone (PredniSONE TAB) 1 mg QAM PO 07/27/16 09:00 08/26/16 08:59 08/05/16 07:29 1 MG Gabapentin (Neurontin Cap) 300 mg TID PO 07/26/16 21:00 08/25/16 20:59 08/05/16 07:29 300 MG Ursodiol (Actigall Cap) 600 mg BIDM PO 07/26/16 19:02 08/25/16 19:01 08/05/16 07:30 600 MG Propranolol HCl (Inderal Tab) 10 mg QAM PO 07/27/16 09:00 08/26/16 08:59 08/03/16 08:06 10 MG Cetirizine HCl (zyrTEC TAB) 10 mg DAILY PRN PO 07/26/16 19:15 08/25/16 19:14 07/31/16 09:22 10 MG Albuterol/ Ipratropium (Duoneb) 3 ml Q2H PRN INH 07/26/16 20:30 08/25/16 20:29 Guaifenesin (Mucinex Contr Rel Tab) 600 mg Q12 PO 07/26/16 21:00 08/25/16 20:59 08/05/16 07:27 600 MG Levalbuterol (Xopenex 1.25MG/ 0.5ML Neb) 1.25 mg Q6R INH 07/27/16 10:00 08/26/16 09:59 08/05/16 07:16 1.25 MG Metoclopramide HCl (Reglan Inj) 10 mg Q6H PRN IV 07/28/16 21:30 08/27/16 21:29 Ondansetron HCl (Zofran Inj) 4 mg Q6H PRN IV 07/28/16 21:30 08/27/16 21:29 Pantoprazole Sodium (Protonix Tab) 40 mg QAM PO 07/29/16 09:00 08/28/16 08:59 08/05/16 07:29 40 MG Miscellaneous Medication (No Nsaids) 1 ea UD N/A 07/28/16 21:30 08/27/16 21:29 Naloxone HCl (Narcan Inj) 0.1 mg Q2M PRN IV 07/28/16 21:30 08/27/16 21:29 Multivitamins (Multivitamin Tab) 1 tab DAILY PO 07/29/16 09:00 08/28/16 08:59 08/05/16 07:30 1 TAB Ferrous Gluconate (Ferrous Gluconate Tab) 324 mg TIDM PO 07/29/16 08:30 08/28/16 08:29 08/05/16 11:58 324 MG Enteral Nutritional Formula (Boost) 1 can TIDM PO 07/29/16 21:00 08/28/16 20:59 08/05/16 07:48 1 CAN Miscellaneous (Ocaliva) 5 mg Fr@0900 PO 07/30/16 09:00 08/29/16 08:59 07/30/16 10:28 5 MG Aspirin (Ecotrin Tab) 81 mg QAM PO 07/31/16 09:00 08/30/16 08:59 08/05/16 07:28 81 MG Oxycodone HCl (Roxicodone Immediate Rel Tab) 5 mg Q12H PRN PO 07/31/16 18:00 08/09/16 17:59 Lactulose (Chronulac Syrup) 15 gm TID PO 07/31/16 14:00 08/30/16 13:59 08/04/16 17:39 15 GM Rifaximin (Xifaxan Tab) 550 mg BID PO 07/31/16 21:00 08/30/16 20:59 08/05/16 07:27 550 MG Heparin Sodium (Porcine) (Heparin Sq 5000 Unit/0.5ml) 5,000 unit Q8 SQ 08/01/16 14:00 08/31/16 13:59 08/05/16 06:18 5,000 UNIT Midodrine (Proamatine Tab) 7.5 mg TID@08,12,17 PO 08/01/16 13:00 08/31/16 12:59 08/05/16 11:58 7.5 MG Octreotide Acetate (Sandostatin Inj) 100 mcg Q8H SQ 08/01/16 14:00 08/31/16 13:59 08/05/16 06:18 100 MCG Albumin Human (Albumin 25%) 12.5 gm DAILY@0900,0930 IV 08/04/16 09:00 08/05/16 23:59 08/05/16 08:27 12.5 GM Albumin Human (Albumin 25%) 12.5 gm DAILY@2100,2130 IV 08/03/16 21:00 08/05/16 23:59 08/04/16 21:45 12.5 GM Lidocaine/ Prilocaine (Emla 2.5% Crm) 1 ea Q8H EXT 08/03/16 21:00 09/02/16 20:59 08/05/16 05:10 1 EA
[2016-08-05 19:39] LABS: URINE APPEARANCE CLEAR (CLEAR); URINE BILIRUBIN NEG (NEG); URINE COLOR DK YELLOW; URINE NITRITE NEG (NEG); URINE PH 5.5 (4.5-7.5); URINE SPECIFIC GRAVITY 1.016 (1.000-1.030); UROBILINOGEN NEG (NEG)
[2016-08-05 19:40] LABS: MANUAL MICROSCOPIC REQUIRED? NO; REVIEW REQ? NO
[2016-08-06] MEDS: LEVALBUTEROL 1.25MG/0.5ML NEB INH SCH ×4 (01:45→19:09)
[2016-08-06 06:59] LABS: MEAN CELL VOLUME 95.7 fL (80-100); MEAN CORPUSCULAR HEMOGLOBIN 31.2 pg (25-34); MEAN CORPUSCULAR HGB CONC 32.6 g/dl (32-36); MEAN PLATELET VOLUME 11.4 fL (7.4-10.4); PLATELET COUNT 159 K/uL (130-400); RED BLOOD COUNT 2.82 M/uL (4.2-5.4); WHITE BLOOD COUNT 10.82 K/uL (4.8-10.8)
[2016-08-06 07:01] VITALS: BP 125/79; PULSE 69; TEMP 37.3; O2SAT 90
[2016-08-06 07:11] LABS: INR 1.2 (0.9-1.1); PROTHROMBIN TIME (PATIENT) 13.4 SECONDS (9.0-12.0)
[2016-08-06 07:35] LABS: CALCIUM 9.5 mg/dl (8.5-10.1)
[2016-08-06 07:37] VITALS: PULSE 69; O2SAT 92
[2016-08-06 07:38] LABS: BUN/CREATININE RATIO 48.2 (10-20); CREATININE 1.2 mg/dl (0.60-1.20); POTASSIUM 3.8 mmol/L (3.5-5.1)
[2016-08-06] MEDS: LIDOCAINE/PRILOCAINE 2.5% EA CRM EXT SCH (08:00)
--- NOTE | 2016-08-06 08:41 | Nephrology Progress Note ---
Nephrology Progress Note Date of Service: Aug 06, 2016. Subjective 60 yo female with PBC with ileana from HRS. creatinine improving and is down to 1.2. pt still with swelling but overall much improved. Objective Date Time Temp Pulse Resp B/P (MAP) Pulse Ox O2 Delivery O2 Flow Rate FiO2 08/06/16 07:37 69 16 92 Room Air 08/06/16 07:01 37.3 69 19 125/79 (94) 90 Room Air 08/05/16 23:45 Room Air 08/05/16 22:51 36.8 66 16 106/65 (79) 92 Room Air 08/05/16 19:32 71 16 93 Room Air 08/05/16 16:30 Room Air 08/05/16 16:02 36.8 64 18 109/71 (84) 93 Room Air 08/05/16 14:10 67 16 93 Room Air 08/05/16 13:58 36.8 70 20 94 0.5 08/05/16 12:00 Room Air 08/05/16 11:59 36.8 70 20 126/65 (85) 94 Physical Exam: General-aaox3 Eyes-no scleral icterus ENT-mmm Neck-supple Lungs-cta Heart-rrr Abdomen-bs+, soft Extremities-significant swelling in legs, right arm in sling and left arm casted Neuro-nonfocal Current Inpatient Medications Medications (Trade) Dose Ordered Sig/Michael Route Start Time Stop Time Status Last Admin Dose Admin Prednisone (PredniSONE TAB) 1 mg QAM PO 07/27/16 09:00 08/26/16 08:59 08/05/16 07:29 1 MG Gabapentin (Neurontin Cap) 300 mg TID PO 07/26/16 21:00 08/25/16 20:59 08/05/16 21:33 300 MG Ursodiol (Actigall Cap) 600 mg BIDM PO 07/26/16 19:02 08/25/16 19:01 08/05/16 17:35 600 MG Propranolol HCl (Inderal Tab) 10 mg QAM PO 07/27/16 09:00 08/26/16 08:59 08/03/16 08:06 10 MG Cetirizine HCl (zyrTEC TAB) 10 mg DAILY PRN PO 07/26/16 19:15 08/25/16 19:14 07/31/16 09:22 10 MG Albuterol/ Ipratropium (Duoneb) 3 ml Q2H PRN INH 07/26/16 20:30 08/25/16 20:29 Guaifenesin (Mucinex Contr Rel Tab) 600 mg Q12 PO 07/26/16 21:00 08/25/16 20:59 08/05/16 21:32 600 MG Levalbuterol (Xopenex 1.25MG/ 0.5ML Neb) 1.25 mg Q6R INH 07/27/16 10:00 08/26/16 09:59 08/06/16 07:36 1.25 MG Metoclopramide HCl (Reglan Inj) 10 mg Q6H PRN IV 07/28/16 21:30 08/27/16 21:29 Ondansetron HCl (Zofran Inj) 4 mg Q6H PRN IV 07/28/16 21:30 08/27/16 21:29 Pantoprazole Sodium (Protonix Tab) 40 mg QAM PO 07/29/16 09:00 08/28/16 08:59 08/05/16 07:29 40 MG Miscellaneous Medication (No Nsaids) 1 ea UD N/A 07/28/16 21:30 08/27/16 21:29 Naloxone HCl (Narcan Inj) 0.1 mg Q2M PRN IV 07/28/16 21:30 08/27/16 21:29 Multivitamins (Multivitamin Tab) 1 tab DAILY PO 07/29/16 09:00 08/28/16 08:59 08/05/16 07:30 1 TAB Ferrous Gluconate (Ferrous Gluconate Tab) 324 mg TIDM PO 07/29/16 08:30 08/28/16 08:29 08/05/16 17:36 324 MG Enteral Nutritional Formula (Boost) 1 can TIDM PO 07/29/16 21:00 08/28/16 20:59 08/05/16 17:36 1 CAN Miscellaneous (Ocaliva) 5 mg Fr@0900 PO 07/30/16 09:00 08/29/16 08:59 07/30/16 10:28 5 MG Aspirin (Ecotrin Tab) 81 mg QAM PO 07/31/16 09:00 08/30/16 08:59 08/05/16 07:28 81 MG Oxycodone HCl (Roxicodone Immediate Rel Tab) 5 mg Q12H PRN PO 07/31/16 18:00 08/09/16 17:59 08/05/16 17:33 5 MG Lactulose (Chronulac Syrup) 15 gm TID PO 07/31/16 14:00 08/30/16 13:59 08/05/16 21:31 15 GM Rifaximin (Xifaxan Tab) 550 mg BID PO 07/31/16 21:00 08/30/16 20:59 08/05/16 21:32 550 MG Enoxaparin Sodium (Lovenox Inj) 40 mg QAM SQ 08/06/16 09:00 09/05/16 08:59 Spironolactone (Aldactone Tab) 37.5 mg QAM PO 08/06/16 09:00 09/05/16 08:59 Furosemide (Lasix Tab) 40 mg QAM PO 08/06/16 09:00 09/05/16 08:59 Lidocaine/ Prilocaine (Emla 2.5% Crm) 1 ea DAILY@0800 EXT 08/06/16 08:00 09/05/16 07:59 Cholecalciferol (Vitamin D Tab) 1,000 inter.unit QAM PO 08/06/16 09:00 09/05/16 08:59 Last 24 Hours Test 08/05/16 19:30 08/06/16 06:11 Urine Color DK YELLOW Urine Appearance CLEAR Urine pH 5.5 Urine Specific Cope 1.016 Urine Protein NEG Urine Glucose (UA) NEG Urine Ketones NEG Urine Occult Blood NEG Urine Nitrite NEG Urine Bilirubin NEG Urine Urobilinogen NEG Urine Leukocyte Esterase NEG White Blood Count 10.82 K/uL Red Blood Count 2.82 M/uL Hemoglobin 8.8 g/dL Hematocrit 27.0 % Mean Corpuscular Volume 95.7 fL Mean Corpuscular Hemoglobin 31.2 pg Mean Corpuscular Hemoglobin Concent 32.6 g/dl RDW Standard Deviation 59.5 fL RDW Coefficient of Variation 17.3 % Platelet Count 159 K/uL Mean Platelet Volume 11.4 fL Prothrombin Time 13.4 SECONDS Prothromb Time International Ratio 1.2 Sodium Level 139 mmol/L Potassium Level 3.8 mmol/L Chloride Level 110 mmol/L Carbon Dioxide Level 21 mmol/L Anion Gap 8.0 mmol/L Blood Urea Nitrogen 58 mg/dl Creatinine 1.20 mg/dl Est Creatinine Clear Calc Drug Dose 54.5 ml/min Estimated GFR () 57.7 Estimated GFR (Non- 49.8 BUN/Creatinine Ratio 48.2 Random Glucose 92 mg/dl Calcium Level 9.5 mg/dl Total Bilirubin 5.3 mg/dl Direct Bilirubin 3.5 mg/dl Aspartate Amino Transf (AST/SGOT) 35 U/L Alanine Aminotransferase (ALT/SGPT) 14 U/L Alkaline Phosphatase 170 U/L Total Protein 5.8 gm/dl Albumin 3.6 gm/dl Date/Time Source Procedure Growth Status 08/05/16 19:30 Urine,Catheterized Urine Culture Pending Received Assessment & Plan ileana on ckd stage 3-baseline creatinine of 1.1 to 1.3. treating for hepatorenal syndrome. no longer on albumin/midodrine/octreotide. creatinine improved. given half the dose of lasix and spironolactone and increasing her to her regular outpt dosing this morning in hopes to improve her swelling. Vitamin d deficiency-will start 1000 units of vitamin d a day.
[2016-08-06] MEDS: LACTULOSE SYRUP 10 GM/15 ML BTL 473 ML PO SCH ×3 (09:00→21:00)
[2016-08-06] MEDS: [UNRECOGNIZED DRUG - OTHER] PO SCH (09:00)
[2016-08-06] MEDS ORDERED: FUROSEMIDE 40 MG TAB PO SCH (09:00)
[2016-08-06] MEDS ORDERED: SPIRONOLACTONE 25 MG TAB PO SCH (09:00)
--- NOTE | 2016-08-06 09:04 | Gastroenterology Progress Note ---
Progress Note Date of Service: Aug 06, 2016 Subjective Pt evaluation today including: conversation w/ patient, physical exam, chart review, lab review Pt was seen and evaluated this AM. PBC with HRS treated with albumic/midodrine/ octreotide with improvement of kidney function. Low dose diuretics were started yesterday. Nephrology is following. No acute events overnight. TBili remained increased 3 --> 5. Continues to be alert and oriented x 3 on my exam this AM and is answering questions appropriately. Still not mentating at baseline. Review of Systems Constitutional: No fever, No chills Respiratory: No cough Cardiac: No chest pain Abdomen: + diarrhea, No pain Medications Current Inpatient Medications Medications (Trade) Dose Ordered Sig/Michael Route Start Time Stop Time Status Last Admin Dose Admin Prednisone (PredniSONE TAB) 1 mg QAM PO 07/27/16 09:00 08/26/16 08:59 08/05/16 07:29 1 MG Gabapentin (Neurontin Cap) 300 mg TID PO 07/26/16 21:00 08/25/16 20:59 08/05/16 21:33 300 MG Ursodiol (Actigall Cap) 600 mg BIDM PO 07/26/16 19:02 08/25/16 19:01 08/05/16 17:35 600 MG Propranolol HCl (Inderal Tab) 10 mg QAM PO 07/27/16 09:00 08/26/16 08:59 08/03/16 08:06 10 MG Cetirizine HCl (zyrTEC TAB) 10 mg DAILY PRN PO 07/26/16 19:15 08/25/16 19:14 07/31/16 09:22 10 MG Albuterol/ Ipratropium (Duoneb) 3 ml Q2H PRN INH 07/26/16 20:30 08/25/16 20:29 Guaifenesin (Mucinex Contr Rel Tab) 600 mg Q12 PO 07/26/16 21:00 08/25/16 20:59 08/05/16 21:32 600 MG Levalbuterol (Xopenex 1.25MG/ 0.5ML Neb) 1.25 mg Q6R INH 07/27/16 10:00 08/26/16 09:59 08/06/16 07:36 1.25 MG Metoclopramide HCl (Reglan Inj) 10 mg Q6H PRN IV 07/28/16 21:30 08/27/16 21:29 Ondansetron HCl (Zofran Inj) 4 mg Q6H PRN IV 07/28/16 21:30 08/27/16 21:29 Pantoprazole Sodium (Protonix Tab) 40 mg QAM PO 07/29/16 09:00 08/28/16 08:59 08/05/16 07:29 40 MG Miscellaneous Medication (No Nsaids) 1 ea UD N/A 07/28/16 21:30 08/27/16 21:29 Naloxone HCl (Narcan Inj) 0.1 mg Q2M PRN IV 07/28/16 21:30 08/27/16 21:29 Multivitamins (Multivitamin Tab) 1 tab DAILY PO 07/29/16 09:00 08/28/16 08:59 08/05/16 07:30 1 TAB Ferrous Gluconate (Ferrous Gluconate Tab) 324 mg TIDM PO 07/29/16 08:30 08/28/16 08:29 08/05/16 17:36 324 MG Enteral Nutritional Formula (Boost) 1 can TIDM PO 07/29/16 21:00 08/28/16 20:59 08/05/16 17:36 1 CAN Miscellaneous (Ocaliva) 5 mg Fr@0900 PO 07/30/16 09:00 08/29/16 08:59 07/30/16 10:28 5 MG Aspirin (Ecotrin Tab) 81 mg QAM PO 07/31/16 09:00 08/30/16 08:59 08/05/16 07:28 81 MG Oxycodone HCl (Roxicodone Immediate Rel Tab) 5 mg Q12H PRN PO 07/31/16 18:00 08/09/16 17:59 08/05/16 17:33 5 MG Lactulose (Chronulac Syrup) 15 gm TID PO 07/31/16 14:00 08/30/16 13:59 08/05/16 21:31 15 GM Rifaximin (Xifaxan Tab) 550 mg BID PO 07/31/16 21:00 08/30/16 20:59 08/05/16 21:32 550 MG Enoxaparin Sodium (Lovenox Inj) 40 mg QAM SQ 08/06/16 09:00 09/05/16 08:59 Lidocaine/ Prilocaine (Emla 2.5% Crm) 1 ea DAILY@0800 EXT 08/06/16 08:00 09/05/16 07:59 Cholecalciferol (Vitamin D Tab) 1,000 inter.unit QAM PO 08/06/16 09:00 09/05/16 08:59 Furosemide (Lasix Tab) 80 mg QAM PO 08/06/16 09:00 09/05/16 08:59 Spironolactone (Aldactone Tab) 75 mg QAM PO 08/06/16 09:00 09/05/16 08:59 Objective Vital Signs Date Time Temp Pulse Resp B/P (MAP) Pulse Ox O2 Delivery O2 Flow Rate FiO2 08/06/16 07:37 69 16 92 Room Air 08/06/16 07:01 37.3 69 19 125/79 (94) 90 Room Air 08/05/16 23:45 Room Air 08/05/16 22:51 36.8 66 16 106/65 (79) 92 Room Air 08/05/16 19:32 71 16 93 Room Air 08/05/16 16:30 Room Air 08/05/16 16:02 36.8 64 18 109/71 (84) 93 Room Air 08/05/16 14:10 67 16 93 Room Air 08/05/16 13:58 36.8 70 20 94 0.5 08/05/16 12:00 Room Air 08/05/16 11:59 36.8 70 20 126/65 (85) 94 Physical Exam General Appearance: no apparent distress Eyes: PERRL ENT: hearing grossly normal Neck: supple Respiratory/Chest: lungs clear Cardiovascular: regular rate, rhythm Abdomen: normal bowel sounds, non tender, soft Neurologic/Psych: alert, normal mood/affect (appears much less lethargic today) , oriented x 3 Skin: warm/dry Laboratory Results Last 24 Hours Test 08/05/16 19:30 08/06/16 06:11 Urine Color DK YELLOW Urine Appearance CLEAR Urine pH 5.5 Urine Specific [place] 1.016 Urine Protein NEG Urine Glucose (UA) NEG Urine Ketones NEG Urine Occult Blood NEG Urine Nitrite NEG Urine Bilirubin NEG Urine Urobilinogen NEG Urine Leukocyte Esterase NEG White Blood Count 10.82 K/uL Red Blood Count 2.82 M/uL Hemoglobin 8.8 g/dL Hematocrit 27.0 % Mean Corpuscular Volume 95.7 fL Mean Corpuscular Hemoglobin 31.2 pg Mean Corpuscular Hemoglobin Concent 32.6 g/dl RDW Standard Deviation 59.5 fL RDW Coefficient of Variation 17.3 % Platelet Count 159 K/uL Mean Platelet Volume 11.4 fL Prothrombin Time 13.4 SECONDS Prothromb Time International Ratio 1.2 Sodium Level 139 mmol/L Potassium Level 3.8 mmol/L Chloride Level 110 mmol/L Carbon Dioxide Level 21 mmol/L Anion Gap 8.0 mmol/L Blood Urea Nitrogen 58 mg/dl Creatinine 1.20 mg/dl Est Creatinine Clear Calc Drug Dose 54.5 ml/min Estimated GFR () 57.7 Estimated GFR (Non- 49.8 BUN/Creatinine Ratio 48.2 Random Glucose 92 mg/dl Calcium Level 9.5 mg/dl Total Bilirubin 5.3 mg/dl Direct Bilirubin 3.5 mg/dl Aspartate Amino Transf (AST/SGOT) 35 U/L Alanine Aminotransferase (ALT/SGPT) 14 U/L Alkaline Phosphatase 170 U/L Total Protein 5.8 gm/dl Albumin 3.6 gm/dl Assessment and Plan Ms. Childress is status left humeral fracture repair with a history of primary biliary cholangitis with cirrhosis with increased Creatinine on morning labs over the weekend and hepatic encephalopathy. She had TIPS procedure 04/03/13. Urine NA 5 --> 14. Kidney function improved and octreotride/midodrine/albumin were held and low dose diuretics resumed per nephrology. Continue to mentate appropriately, appears to have waxing and waning mentation throughout the day. No abdominal pain or cramping with lacutlose but is having 3-4 loose stools daily which patient is concerned about. Discussed lactulose therapy again with MS. Childress and advised we can titrate this medication to her symptoms as she continues to clinically improve. TBili remails increased on repeat labs this AM. Daily MELD labs HRS kidney function improved discontinued octreotide, midodrine and albumin appreciate nephrology input resume low dose diuretics if OK by nephrology (outpatient dosing was lasix 100 mg and aldactone 100 mg daily) 2 GM NA diet Primary Biliary Cirrhosis Lactulose 15 gm TID OK to titrate to 3 BMs daily Xifaxan 550 mg BID ursodiol 600 mg BID Ocalvia 5mg once a week Inderal 10 mg daily MELD 17 GI will follow. Please call with questions or concerns. ATTESTATION: I have performed a history and physical examination of this patient and reviewed the electronic record. Specifically, on physical examination patient is oriented X 3. I have discussed the case with YVAN Rodriguez. The above note reflects my findings, conclusions, and recommendations. Antione Lopez MD
[2016-08-06] MEDS: PROPRANOLOL HCL 10 MG TAB PO SCH (09:11)
[2016-08-06] MEDS: URSODIOL 300 MG CAP PO SCH ×2 (09:11→18:13)
[2016-08-06] MEDS: GABAPENTIN 300 MG CAP PO SCH ×3 (09:12→21:11)
[2016-08-06] MEDS: FERROUS GLUCONATE 324 MG TAB PO SCH ×3 (09:13→18:12)
[2016-08-06] MEDS: MULTIVITAMIN TAB PO SCH (09:18)
[2016-08-06] MEDS: GUAIFENESIN 600 MG TABCR PO SCH ×2 (09:18→21:11)
[2016-08-06] MEDS: PANTOprazole SOD 40 MG TAB PO SCH (09:18)
[2016-08-06] MEDS: ASPIRIN 81 MG ECTAB PO SCH (09:19)
[2016-08-06] MEDS: ENOXAPARIN 40 MG/0.4 ML SYR SQ SCH ×2 (09:20→09:29)
[2016-08-06] MEDS: RIFAXIMIN TAB 550 MG TAB PO SCH ×2 (09:20→21:11)
[2016-08-06] MEDS: CHOLECALCIFEROL 1000 INTER.UNIT TAB PO SCH (09:34)
[2016-08-06] MEDS: BOOST VANILLA PO SCH ×6 (09:34→18:12)
[2016-08-06] MEDS: FUROSEMIDE 80 MG TAB PO SCH (09:35)
[2016-08-06] MEDS: SPIRONOLACTONE 25 MG TAB PO SCH (09:36)
[2016-08-06 14:15] VITALS: PULSE 73; O2SAT 93
[2016-08-06 14:57] VITALS: BP 92/55; PULSE 60; TEMP 37; O2SAT 95
--- NOTE | 2016-08-06 17:56 | Progress Note ---
Medicine Progress Note Date & Time of Visit: Aug 06, 2016 at 09:56. 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 She is s/p ORIF on 07/28 for both areas and is doing well with respect to pain. HRS improved after octreotide and midodrine, stopped yesterday. Mental status is remaining appropriate, and energy level is again improved. Tolerating PO but still has low appetite. Weakness is improved. -tolerating PO -denies pain -sitting up in bedside chair and moving more -doing well overall Objective Last 8 Hrs Date Time Temp Pulse Resp B/P (MAP) Pulse Ox O2 Delivery O2 Flow Rate FiO2 08/06/16 07:37 69 16 92 Room Air 08/06/16 07:01 37.3 69 19 125/79 (94) 90 Room Air Physical Exam: GEN: WNWD, in no acute distress, mentating appropriately, fatigue appears improved. Sitting in bedside chair. HEENT: NC/AT, pupils are round and reactive CARDIO: reg rate, S1/2 heard without m/g/r LUNGS: CTA bilaterally, no crackles, rales or wheezes, good diaphragmatic excursion ABD: soft, non-tender, non-distended, no rebound or guarding, +BS, ecchymosis to abdomen. EXTREMITY: RP and DP palpable 2+ bilat, no LE swelling or edema, extremities are warm and well-perfused, R wrist in soft cast and, LUE in sling, killian in place on R shoulder incision, ecchymosis spots on legs bilaterally NEURO: CN 2-12 grossly intact, no gross focal deficits. MUSC: generalized weakness noted SKIN: warm and dry and as above Laboratory Results: 08/06/16 06:11 08/06/16 06:11 Test 07/26/16 17:00 07/31/16 05:35 07/31/16 09:37 08/01/16 08:13 Lipase 125 U/L (73-393) Globulin 3.4 gm/dl (2.5-4.0) Albumin/Globulin Ratio 0.7 (0.9-2) Arterial Blood pH 7.41 (7.35-7.45) Arterial Blood Partial Pressure CO2 37 mmHg (35-46) Arterial Blood Partial Pressure O2 77 mm/Hg (80-95) Arterial Blood HCO3 23 mmol/L (19-24) Arterial Blood Oxygen Saturation 94.9 % (90-95) Arterial Blood Base Excess -1.2 mEq/L (-9-1.8) Arterial Blood Gas Delivery 2l [place] Test POS (POS) Hypochromasia PRESENT Test 08/02/16 00:00 08/02/16 07:51 08/03/16 06:59 08/05/16 06:06 Urine Random Sodium 14 mEq/L Procalcitonin 1.38 ng/ml (0-0.5) Immature Granulocyte % (Auto) 1.3 % White Blood Count 11.47 K/uL (4.8-10.8) Red Blood Count 2.69 M/uL (4.2-5.4) Hemoglobin 8.6 g/dL (12.0-16.0) Hematocrit 25.4 % (37-47) Mean Corpuscular Volume 94.4 fL (80-100) Mean Corpuscular Hemoglobin 32.0 pg (25-34) Mean Corpuscular Hemoglobin Concent 33.9 g/dl (32-36) Platelet Count 112 K/uL (130-400) Mean Platelet Volume 11.3 fL (7.4-10.4) Neutrophils (%) (Auto) 77.7 % Lymphocytes (%) (Auto) 7.9 % Monocytes (%) (Auto) 10.1 % Eosinophils (%) (Auto) 2.8 % Basophils (%) (Auto) 0.2 % Neutrophils # (Auto) 8.91 K/uL (1.4-6.5) Lymphocytes # (Auto) 0.91 K/uL (1.2-3.4) Monocytes # (Auto) 1.16 K/uL (0.11-0.59) Eosinophils # (Auto) 0.32 K/uL (0-0.5) Basophils # (Auto) 0.02 K/uL (0-0.2) Immature Granulocyte # (Auto) 0.15 K/uL (0.00-0.02) Polychromasia 1+ Basophilic Stippling 1+ Magnesium Level 3.1 mg/dl (1.8-2.4) Ammonia 51.0 umol/L (11-32) 25-Hydroxy Vitamin D Total 21.5 ng/ml (30-100) Test 08/05/16 19:30 08/06/16 06:11 Urine Color DK YELLOW Urine Appearance CLEAR (CLEAR) Urine pH 5.5 (4.5-7.5) Urine Specific [place] 1.016 (1.000-1.030) Urine Protein NEG (NEG) Urine Glucose (UA) NEG (NEG) Urine Ketones NEG (NEG) Urine Occult Blood NEG (NEG) Urine Nitrite NEG (NEG) Urine Bilirubin NEG (NEG) Urine Urobilinogen NEG (NEG) Urine Leukocyte Esterase NEG (NEG) Red Blood Count 2.82 M/uL (4.2-5.4) Mean Corpuscular Volume 95.7 fL (80-100) Mean Corpuscular Hemoglobin 31.2 pg (25-34) Mean Corpuscular Hemoglobin Concent 32.6 g/dl (32-36) RDW Standard Deviation 59.5 fL (36.4-46.3) RDW Coefficient of Variation 17.3 % (11.5-14.5) Mean Platelet Volume 11.4 fL (7.4-10.4) Prothrombin Time 13.4 SECONDS (9.0-12.0) Prothromb Time International Ratio 1.2 (0.9-1.1) Anion Gap 8.0 mmol/L (3-11) Est Creatinine Clear Calc Drug Dose 54.5 ml/min Estimated GFR () 57.7 Estimated GFR (Non- 49.8 BUN/Creatinine Ratio 48.2 (10-20) Calcium Level 9.5 mg/dl (8.5-10.1) Total Bilirubin 5.3 mg/dl (0.2-1) Direct Bilirubin 3.5 mg/dl (0-0.2) Aspartate Amino Transf (AST/SGOT) 35 U/L (15-37) Alanine Aminotransferase (ALT/SGPT) 14 U/L (12-78) Alkaline Phosphatase 170 U/L (45-117) Total Protein 5.8 gm/dl (6.4-8.2) Albumin 3.6 gm/dl (3.4-5.0) Date/Time Source Procedure Growth Status 08/05/16 19:30 Urine,Catheterized Urine Culture Pending Received Last 24 Hours Test 08/05/16 19:30 08/06/16 06:11 Urine Color DK YELLOW Urine Appearance CLEAR Urine pH 5.5 Urine Specific [place] 1.016 Urine Protein NEG Urine Glucose (UA) NEG Urine Ketones NEG Urine Occult Blood NEG Urine Nitrite NEG Urine Bilirubin NEG Urine Urobilinogen NEG Urine Leukocyte Esterase NEG White Blood Count 10.82 K/uL Red Blood Count 2.82 M/uL Hemoglobin 8.8 g/dL Hematocrit 27.0 % Mean Corpuscular Volume 95.7 fL Mean Corpuscular Hemoglobin 31.2 pg Mean Corpuscular Hemoglobin Concent 32.6 g/dl RDW Standard Deviation 59.5 fL RDW Coefficient of Variation 17.3 % Platelet Count 159 K/uL Mean Platelet Volume 11.4 fL Prothrombin Time 13.4 SECONDS Prothromb Time International Ratio 1.2 Sodium Level 139 mmol/L Potassium Level 3.8 mmol/L Chloride Level 110 mmol/L Carbon Dioxide Level 21 mmol/L Anion Gap 8.0 mmol/L Blood Urea Nitrogen 58 mg/dl Creatinine 1.20 mg/dl Est Creatinine Clear Calc Drug Dose 54.5 ml/min Estimated GFR () 57.7 Estimated GFR (Non- 49.8 BUN/Creatinine Ratio 48.2 Random Glucose 92 mg/dl Calcium Level 9.5 mg/dl Total Bilirubin 5.3 mg/dl Direct Bilirubin 3.5 mg/dl Aspartate Amino Transf (AST/SGOT) 35 U/L Alanine Aminotransferase (ALT/SGPT) 14 U/L Alkaline Phosphatase 170 U/L Total Protein 5.8 gm/dl Albumin 3.6 gm/dl Date/Time Source Procedure Growth Status 08/05/16 19:30 Urine,Catheterized Urine Culture Pending Received Assessment & Plan 60 year old female with history of Primary Biliary Cirrhosis, 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 She is s/p ORIF on 07/28 for both areas and is doing well with respect to pain. HRS improved after octreotide and midodrine, stopped yesterday. Mental status is remaining appropriate, and energy level is again improved. Tolerating PO but still has low appetite. Weakness is improved. 1. Right humeral fracture, left radial fracture secondary to recurrent mechanical fall ambulatory dysfunction: s/p ORIF on 07/28. Pain is controlled. Took down shoulder dressing and apply dry dressings per Ortho recs on 08/05. Killian in place with no erythema or oozing from closed incision. L wrist in soft cast. 2. Altered mental status-resolved, continues to improve. No narcotics or pain meds of any kind if avoidable. Cont current therapy for now and monitor. 3. HRS-with clinical improvement and improved creatinine. Per Nephro Octreotide and Midodrine were stopped. Diuretics including Lasix and aldactone were started at 50% yesterday and will be increased to the full home dose today. will monitor PRP and clinical status overnight. 4. Acute on chronic renal failure-resolved and back to baseline today. Cont plan as above. 5 h/o PBC- continues on immunomodulator therapy and is s/p TIPS. Due for Ocaliva today; advised nurse that has her pills and these just need to be sent to pharm for verification so that she can take them. Verbalized understanding with intent to comply. 6. Chronic constrictive pericarditis, stable on chronic steroid therapy. 7. Leukocytosis-resolved 8. Anemia-stable, likely 2/2 chronic disease and post-op state 9. Thrombocytopenia likely 2/2 cirrhosis-resolved to normal levels 10. Extensive ecchymosis on abdomen 2/2 shots given. She was on 6 shots/day SQ recently which were stopped yesterday and now she is on Lovenox once daily. Working with nursing to vary locations of injection. EMLA cream for help from relief. Wound care nursing consulted to see if other treatments may be helpful. DVT proph: Lovenox. Full Code Dispo-to med surg Alexia Aldana DO [facility] Hospitalist. Consultants: GI, Nephro, Pulm Current Inpatient Medications: Current Inpatient Medications Medications (Trade) Dose Ordered Sig/Michael Route Start Time Stop Time Status Last Admin Dose Admin Prednisone (PredniSONE TAB) 1 mg QAM PO 07/27/16 09:00 08/26/16 08:59 08/06/16 09:12 1 MG Gabapentin (Neurontin Cap) 300 mg TID PO 07/26/16 21:00 08/25/16 20:59 08/06/16 09:12 300 MG Ursodiol (Actigall Cap) 600 mg BIDM PO 07/26/16 19:02 08/25/16 19:01 08/06/16 09:11 600 MG Propranolol HCl (Inderal Tab) 10 mg QAM PO 07/27/16 09:00 08/26/16 08:59 08/06/16 09:11 10 MG Cetirizine HCl (zyrTEC TAB) 10 mg DAILY PRN PO 07/26/16 19:15 08/25/16 19:14 07/31/16 09:22 10 MG Albuterol/ Ipratropium (Duoneb) 3 ml Q2H PRN INH 07/26/16 20:30 08/25/16 20:29 Guaifenesin (Mucinex Contr Rel Tab) 600 mg Q12 PO 07/26/16 21:00 08/25/16 20:59 08/06/16 09:18 600 MG Levalbuterol (Xopenex 1.25MG/ 0.5ML Neb) 1.25 mg Q6R INH 07/27/16 10:00 08/26/16 09:59 08/06/16 07:36 1.25 MG Metoclopramide HCl (Reglan Inj) 10 mg Q6H PRN IV 07/28/16 21:30 08/27/16 21:29 Ondansetron HCl (Zofran Inj) 4 mg Q6H PRN IV 07/28/16 21:30 08/27/16 21:29 Pantoprazole Sodium (Protonix Tab) 40 mg QAM PO 07/29/16 09:00 08/28/16 08:59 08/06/16 09:18 40 MG Miscellaneous Medication (No Nsaids) 1 ea UD N/A 07/28/16 21:30 08/27/16 21:29 Naloxone HCl (Narcan Inj) 0.1 mg Q2M PRN IV 07/28/16 21:30 08/27/16 21:29 Multivitamins (Multivitamin Tab) 1 tab DAILY PO 07/29/16 09:00 08/28/16 08:59 08/06/16 09:18 1 TAB Ferrous Gluconate (Ferrous Gluconate Tab) 324 mg TIDM PO 07/29/16 08:30 08/28/16 08:29 08/06/16 09:13 324 MG Enteral Nutritional Formula (Boost) 1 can TIDM PO 07/29/16 21:00 08/28/16 20:59 08/06/16 09:34 1 CAN Miscellaneous (Ocaliva) 5 mg Fr@0900 PO 07/30/16 09:00 08/29/16 08:59 07/30/16 10:28 5 MG Aspirin (Ecotrin Tab) 81 mg QAM PO 07/31/16 09:00 08/30/16 08:59 08/06/16 09:19 81 MG Oxycodone HCl (Roxicodone Immediate Rel Tab) 5 mg Q12H PRN PO 07/31/16 18:00 08/09/16 17:59 08/05/16 17:33 5 MG Lactulose (Chronulac Syrup) 15 gm TID PO 07/31/16 14:00 08/30/16 13:59 08/05/16 21:31 15 GM Rifaximin (Xifaxan Tab) 550 mg BID PO 07/31/16 21:00 08/30/16 20:59 08/06/16 09:20 550 MG Enoxaparin Sodium (Lovenox Inj) 40 mg QAM SQ 08/06/16 09:00 09/05/16 08:59 08/06/16 09:20 40 MG Lidocaine/ Prilocaine (Emla 2.5% Crm) 1 ea DAILY@0800 EXT 08/06/16 08:00 09/05/16 07:59 Cholecalciferol (Vitamin D Tab) 1,000 inter.unit QAM PO 08/06/16 09:00 09/05/16 08:59 08/06/16 09:34 1,000 INTER.UNIT Furosemide (Lasix Tab) 80 mg QAM PO 08/06/16 09:00 09/05/16 08:59 08/06/16 09:35 80 MG Spironolactone (Aldactone Tab) 75 mg QAM PO 08/06/16 09:00 09/05/16 08:59 08/06/16 09:36 75 MG
[2016-08-06 19:09] VITALS: PULSE 75; O2SAT 96
[2016-08-06 23:45] VITALS: BP 102/63; PULSE 61; TEMP 37.3; O2SAT 92
[2016-08-07] MEDS: LEVALBUTEROL 1.25MG/0.5ML NEB INH SCH ×2 (02:34→05:19)
[2016-08-07 05:20] VITALS: PULSE 75; O2SAT 96
[2016-08-07 07:26] VITALS: BP 107/71; PULSE 66; TEMP 37.1; O2SAT 91
[2016-08-07] MEDS: LIDOCAINE/PRILOCAINE 2.5% EA CRM EXT SCH (07:32)
[2016-08-07 08:10] LABS: MEAN CELL VOLUME 96.2 fL (80-100); MEAN CORPUSCULAR HEMOGLOBIN 31.6 pg (25-34); MEAN CORPUSCULAR HGB CONC 32.9 g/dl (32-36); MEAN PLATELET VOLUME 9.8 fL (7.4-10.4); PLATELET COUNT 152 K/uL (130-400); RED BLOOD COUNT 2.91 M/uL (4.2-5.4); WHITE BLOOD COUNT 13.13 K/uL (4.8-10.8)
[2016-08-07] MEDS: BOOST VANILLA PO SCH ×6 (08:36→17:51)
[2016-08-07] MEDS: GUAIFENESIN 600 MG TABCR PO SCH ×2 (08:37→21:15)
[2016-08-07] MEDS: URSODIOL 300 MG CAP PO SCH ×2 (08:37→17:50)
[2016-08-07] MEDS: CHOLECALCIFEROL 1000 INTER.UNIT TAB PO SCH (08:37)
[2016-08-07] MEDS: PROPRANOLOL HCL 10 MG TAB PO SCH (08:38)
[2016-08-07] MEDS: FERROUS GLUCONATE 324 MG TAB PO SCH ×3 (08:38→17:50)
[2016-08-07] MEDS: CETIRIZINE HCL 10 MG TAB PO PRN (08:38)
[2016-08-07] MEDS: MULTIVITAMIN TAB PO SCH (08:38)
[2016-08-07] MEDS: GABAPENTIN 300 MG CAP PO SCH ×3 (08:38→21:15)
[2016-08-07] MEDS: FUROSEMIDE 80 MG TAB PO SCH (08:38)
[2016-08-07] MEDS: ASPIRIN 81 MG ECTAB PO SCH (08:38)
[2016-08-07] MEDS: SPIRONOLACTONE 25 MG TAB PO SCH (08:39)
[2016-08-07] MEDS: RIFAXIMIN TAB 550 MG TAB PO SCH ×2 (08:39→21:16)
[2016-08-07] MEDS: PANTOprazole SOD 40 MG TAB PO SCH (08:39)
[2016-08-07] MEDS: LEValbuterol HFA 15GM INHALER INH SCH ×2 (08:40→17:51)
[2016-08-07] MEDS: LACTULOSE SYRUP 10 GM/15 ML BTL 473 ML PO SCH ×3 (08:41→21:17)
[2016-08-07 08:42] LABS: CALCIUM 9.3 mg/dl (8.5-10.1); CREATININE 1.2 mg/dl (0.60-1.20); POTASSIUM 3.4 mmol/L (3.5-5.1)
[2016-08-07] MEDS ORDERED: ERGOCALCIFEROL 50,000 INTER.UNIT CAP PO SCH (11:00)
[2016-08-07] MEDS ORDERED: LORAZEPAM 0.5 MG TAB PO STA (11:44)
[2016-08-07] MEDS: [UNRECOGNIZED DRUG - OTHER] PO SCH (14:20)
[2016-08-07 15:52] VITALS: BP 116/73; PULSE 65; TEMP 36.8; O2SAT 94
[2016-08-07 23:07] VITALS: BP 150/86; PULSE 64; TEMP 36.9; O2SAT 94
[2016-08-08] MEDS: LEValbuterol HFA 15GM INHALER INH SCH ×5 (00:02→23:30)
[2016-08-08 07:20] VITALS: BP 100/55; PULSE 68; TEMP 36.6; O2SAT 94
--- NOTE | 2016-08-08 08:29 | Progress Note ---
Medicine Progress Note Date & Time of Visit: Aug 07, 2016 at 11:45. 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 She is s/p ORIF on 07/28 for both areas and is doing well with respect to pain. HRS improved after octreotide and midodrine, stopped yesterday. Mental status is remaining appropriate, and energy level is again improved. Tolerating PO but still has low appetite. Weakness continues to improve. Some significant bruising in her abdomen this morning without evidence of hematoma from multiple recent SQ injections and relative thrombocytopenia. This bothers her somewhat but she moreso has issues with muscle cramping just above this and states that she gets this at home and typically uses T#3 for the discomfort. -tolerating PO -some abdominal discomfort she reports from cramping in the abdominal muscles. -continues to have BMs. Objective Last 8 Hrs Date Time Temp Pulse Resp B/P (MAP) Pulse Ox O2 Delivery O2 Flow Rate FiO2 08/07/16 07:30 Room Air 08/07/16 07:26 37.1 66 18 107/71 (83) 91 Room Air 08/07/16 05:20 75 16 96 Room Air Physical Exam: GEN: WNWD, in no acute distress, mentating appropriately, fatigue appears improved. Sitting in bedside chair. HEENT: NC/AT, pupils are round and reactive, + scleral icterus CARDIO: reg rate, S1/2 heard without m/g/r LUNGS: CTA bilaterally, no crackles, rales or wheezes, good diaphragmatic excursion ABD: (she was moved to the bed so she could lay flat for exam) soft, tenderness noted over extensively ecchymotic area on RLQ, non-distended, no rebound or guarding, +BS, +TTP in epigastric area she states causes cramping when pushed on EXTREMITY: RP and DP palpable 2+ bilat, no LE swelling or edema, extremities are warm and well-perfused, R wrist in soft cast and, LUE in sling, [place] in place on R shoulder incision, ecchymosis spots on legs bilaterally NEURO: CN 2-12 grossly intact, no gross focal deficits. MUSC: generalized weakness noted SKIN: warm and dry and as above Laboratory Results: 08/07/16 07:51 08/07/16 07:51 Test 07/26/16 17:00 07/31/16 05:35 07/31/16 09:37 08/01/16 08:13 Lipase 125 U/L (73-393) Globulin 3.4 gm/dl (2.5-4.0) Albumin/Globulin Ratio 0.7 (0.9-2) Arterial Blood pH 7.41 (7.35-7.45) Arterial Blood Partial Pressure CO2 37 mmHg (35-46) Arterial Blood Partial Pressure O2 77 mm/Hg (80-95) Arterial Blood HCO3 23 mmol/L (19-24) Arterial Blood Oxygen Saturation 94.9 % (90-95) Arterial Blood Base Excess -1.2 mEq/L (-9-1.8) Arterial Blood Gas Delivery 2l Amado Test POS (POS) Hypochromasia PRESENT Test 08/02/16 00:00 08/02/16 07:51 08/03/16 06:59 08/05/16 06:06 Urine Random Sodium 14 mEq/L Procalcitonin 1.38 ng/ml (0-0.5) Immature Granulocyte % (Auto) 1.3 % White Blood Count 11.47 K/uL (4.8-10.8) Red Blood Count 2.69 M/uL (4.2-5.4) Hemoglobin 8.6 g/dL (12.0-16.0) Hematocrit 25.4 % (37-47) Mean Corpuscular Volume 94.4 fL (80-100) Mean Corpuscular Hemoglobin 32.0 pg (25-34) Mean Corpuscular Hemoglobin Concent 33.9 g/dl (32-36) Platelet Count 112 K/uL (130-400) Mean Platelet Volume 11.3 fL (7.4-10.4) Neutrophils (%) (Auto) 77.7 % Lymphocytes (%) (Auto) 7.9 % Monocytes (%) (Auto) 10.1 % Eosinophils (%) (Auto) 2.8 % Basophils (%) (Auto) 0.2 % Neutrophils # (Auto) 8.91 K/uL (1.4-6.5) Lymphocytes # (Auto) 0.91 K/uL (1.2-3.4) Monocytes # (Auto) 1.16 K/uL (0.11-0.59) Eosinophils # (Auto) 0.32 K/uL (0-0.5) Basophils # (Auto) 0.02 K/uL (0-0.2) Immature Granulocyte # (Auto) 0.15 K/uL (0.00-0.02) Polychromasia 1+ Basophilic Stippling 1+ Ammonia 51.0 umol/L (11-32) 25-Hydroxy Vitamin D Total 21.5 ng/ml (30-100) Test 08/05/16 19:30 08/06/16 06:11 08/07/16 07:51 Urine Color DK YELLOW Urine Appearance CLEAR (CLEAR) Urine pH 5.5 (4.5-7.5) Urine Specific [place] 1.016 (1.000-1.030) Urine Protein NEG (NEG) Urine Glucose (UA) NEG (NEG) Urine Ketones NEG (NEG) Urine Occult Blood NEG (NEG) Urine Nitrite NEG (NEG) Urine Bilirubin NEG (NEG) Urine Urobilinogen NEG (NEG) Urine Leukocyte Esterase NEG (NEG) Prothrombin Time 13.4 SECONDS (9.0-12.0) Prothromb Time International Ratio 1.2 (0.9-1.1) Total Bilirubin 5.3 mg/dl (0.2-1) Direct Bilirubin 3.5 mg/dl (0-0.2) Aspartate Amino Transf (AST/SGOT) 35 U/L (15-37) Alanine Aminotransferase (ALT/SGPT) 14 U/L (12-78) Alkaline Phosphatase 170 U/L (45-117) Total Protein 5.8 gm/dl (6.4-8.2) Albumin 3.6 gm/dl (3.4-5.0) Red Blood Count 2.91 M/uL (4.2-5.4) Mean Corpuscular Volume 96.2 fL (80-100) Mean Corpuscular Hemoglobin 31.6 pg (25-34) Mean Corpuscular Hemoglobin Concent 32.9 g/dl (32-36) RDW Standard Deviation 60.5 fL (36.4-46.3) RDW Coefficient of Variation 17.6 % (11.5-14.5) Mean Platelet Volume 9.8 fL (7.4-10.4) Anion Gap 7.0 mmol/L (3-11) Est Creatinine Clear Calc Drug Dose 54.5 ml/min Estimated GFR () 57.7 Estimated GFR (Non- 49.8 BUN/Creatinine Ratio 43.0 (10-20) Calcium Level 9.3 mg/dl (8.5-10.1) Magnesium Level 2.0 mg/dl (1.8-2.4) Date/Time Source Procedure Growth Status 08/05/16 19:30 Urine,Catheterized Urine Culture - Final NO GROWTH - LESS THAN 1,000 COLONIES/ML Complete Last 24 Hours Test 08/07/16 07:51 White Blood Count 13.13 K/uL Red Blood Count 2.91 M/uL Hemoglobin 9.2 g/dL Hematocrit 28.0 % Mean Corpuscular Volume 96.2 fL Mean Corpuscular Hemoglobin 31.6 pg Mean Corpuscular Hemoglobin Concent 32.9 g/dl RDW Standard Deviation 60.5 fL RDW Coefficient of Variation 17.6 % Platelet Count 152 K/uL Mean Platelet Volume 9.8 fL Sodium Level 138 mmol/L Potassium Level 3.4 mmol/L Chloride Level 109 mmol/L Carbon Dioxide Level 22 mmol/L Anion Gap 7.0 mmol/L Blood Urea Nitrogen 52 mg/dl Creatinine 1.20 mg/dl Est Creatinine Clear Calc Drug Dose 54.5 ml/min Estimated GFR () 57.7 Estimated GFR (Non- 49.8 BUN/Creatinine Ratio 43.0 Random Glucose 97 mg/dl Calcium Level 9.3 mg/dl Magnesium Level 2.0 mg/dl Assessment & Plan 60 year old female with history of Primary Biliary Cirrhosis, 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 She is s/p ORIF on 07/28 for both areas and is doing well with respect to pain. HRS improved after octreotide and midodrine, stopped yesterday. Mental status is remaining appropriate, and energy level is again improved. Tolerating PO but still has low appetite. Weakness continues to improve. Some significant bruising in her abdomen this morning without evidence of hematoma from multiple recent SQ injections and relative thrombocytopenia. This bothers her somewhat but she moreso has issues with muscle cramping just above this and states that she gets this at home and typically uses T#3 for the discomfort. 1. Right humeral fracture, left radial fracture secondary to recurrent mechanical fall ambulatory dysfunction: s/p ORIF on 07/28. Pain is controlled. Took down shoulder dressing and apply dry dressings per Ortho recs on 08/05. [place] in place with no erythema or oozing from closed incision. L wrist in soft cast. 2. Altered mental status-resolved, continues to improve. No narcotics or pain meds of any kind if avoidable. Cont current therapy for now and monitor. 3. HRS-with clinical improvement and improved creatinine. Per Nephro Octreotide and Midodrine were stopped. Lasix and aldactone continued. 4. Acute on chronic renal failure-resolved and back to baseline. Cont plan as above. 5 h/o PBC- continues on immunomodulator therapy and is s/p TIPS. Ocaliva once weekly per home regimen. 6. Chronic constrictive pericarditis, stable on chronic steroid therapy. 7. Anemia-stable, likely 2/2 chronic disease and post-op state 8. Abdominal pain-Extensive ecchymosis on abdomen 2/2 shots given. She was on 6 shots/day SQ recently which have been stopped, and now she is on Lovenox once daily. Working with nursing to vary locations of injection. EMLA cream for help from relief. Wound care nursing consulted to see if other treatments may be helpful. Ativan tried once today to see if this helps as a muscle relaxer. considered pancreatitis but patient is eating. Will recheck tomorrow and see how she is improving. DVT proph: Lovenox. Full Code Dispo-to rehab when approved. Patient is medically stable to go. A peer-to- peer was attempted on Tuesday afternoon by me, however, I did not receive a callback from anyone. Will try to connect again on Tue. Apparently, her is against her going to SNF. Alexia Aldana DO [facility] Hospitalist. Consultants: GI, Nephro, Pulm Current Inpatient Medications: Current Inpatient Medications Medications (Trade) Dose Ordered Sig/Michael Route Start Time Stop Time Status Last Admin Dose Admin Prednisone (PredniSONE TAB) 1 mg QAM PO 07/27/16 09:00 08/26/16 08:59 08/07/16 08:39 1 MG Gabapentin (Neurontin Cap) 300 mg TID PO 07/26/16 21:00 08/25/16 20:59 08/07/16 08:38 300 MG Ursodiol (Actigall Cap) 600 mg BIDM PO 07/26/16 19:02 08/25/16 19:01 08/07/16 08:37 600 MG Propranolol HCl (Inderal Tab) 10 mg QAM PO 07/27/16 09:00 08/26/16 08:59 08/07/16 08:38 10 MG Cetirizine HCl (zyrTEC TAB) 10 mg DAILY PRN PO 07/26/16 19:15 08/25/16 19:14 08/07/16 08:38 10 MG Guaifenesin (Mucinex Contr Rel Tab) 600 mg Q12 PO 07/26/16 21:00 08/25/16 20:59 08/07/16 08:37 600 MG Metoclopramide HCl (Reglan Inj) 10 mg Q6H PRN IV 07/28/16 21:30 08/27/16 21:29 Ondansetron HCl (Zofran Inj) 4 mg Q6H PRN IV 07/28/16 21:30 08/27/16 21:29 Pantoprazole Sodium (Protonix Tab) 40 mg QAM PO 07/29/16 09:00 08/28/16 08:59 08/07/16 08:39 40 MG Miscellaneous Medication (No Nsaids) 1 ea UD N/A 07/28/16 21:30 08/27/16 21:29 Naloxone HCl (Narcan Inj) 0.1 mg Q2M PRN IV 07/28/16 21:30 08/27/16 21:29 Multivitamins (Multivitamin Tab) 1 tab DAILY PO 07/29/16 09:00 08/28/16 08:59 08/07/16 08:38 1 TAB Ferrous Gluconate (Ferrous Gluconate Tab) 324 mg TIDM PO 07/29/16 08:30 08/28/16 08:29 08/07/16 08:38 324 MG Enteral Nutritional Formula (Boost) 1 can TIDM PO 07/29/16 21:00 08/28/16 20:59 08/07/16 08:36 1 CAN Miscellaneous (Ocaliva) 5 mg Fr@0900 PO 07/30/16 09:00 08/29/16 08:59 07/30/16 10:28 5 MG Aspirin (Ecotrin Tab) 81 mg QAM PO 07/31/16 09:00 08/30/16 08:59 08/07/16 08:38 81 MG Oxycodone HCl (Roxicodone Immediate Rel Tab) 5 mg Q12H PRN PO 07/31/16 18:00 08/09/16 17:59 08/05/16 17:33 5 MG Lactulose (Chronulac Syrup) 15 gm TID PO 07/31/16 14:00 08/30/16 13:59 08/07/16 08:41 15 GM Rifaximin (Xifaxan Tab) 550 mg BID PO 07/31/16 21:00 08/30/16 20:59 08/07/16 08:39 550 MG Enoxaparin Sodium (Lovenox Inj) 40 mg QAM SQ 08/06/16 09:00 09/05/16 08:59 08/06/16 09:20 40 MG Lidocaine/ Prilocaine (Emla 2.5% Crm) 1 ea DAILY@0800 EXT 08/06/16 08:00 09/05/16 07:59 08/07/16 07:32 1 EA Furosemide (Lasix Tab) 80 mg QAM PO 08/06/16 09:00 09/05/16 08:59 08/07/16 08:38 80 MG Spironolactone (Aldactone Tab) 75 mg QAM PO 08/06/16 09:00 09/05/16 08:59 08/07/16 08:39 75 MG Levalbuterol (Xopenex Hfa Inhaler) 2 puffs Q6 INH 08/07/16 12:00 09/06/16 11:59 08/07/16 08:40 2 PUFFS Ergocalciferol (Vitamin D Cap) 50,000 interunit Q7D@1100 PO 08/07/16 11:00 10/23/16 11:01 08/07/16 11:34 50,000 INTERUNIT
[2016-08-08] MEDS: LIDOCAINE/PRILOCAINE 2.5% EA CRM EXT SCH (08:31)
[2016-08-08] MEDS: URSODIOL 300 MG CAP PO SCH ×2 (08:33→17:32)
[2016-08-08] MEDS: FERROUS GLUCONATE 324 MG TAB PO SCH ×3 (08:34→17:32)
[2016-08-08] MEDS: SPIRONOLACTONE 25 MG TAB PO SCH (08:37)
[2016-08-08] MEDS: ASPIRIN 81 MG ECTAB PO SCH (08:38)
[2016-08-08] MEDS: LACTULOSE SYRUP 10 GM/15 ML BTL 473 ML PO SCH ×3 (08:38→20:38)
[2016-08-08] MEDS: PROPRANOLOL HCL 10 MG TAB PO SCH (08:39)
[2016-08-08] MEDS: FUROSEMIDE 80 MG TAB PO SCH (08:40)
[2016-08-08] MEDS: GABAPENTIN 300 MG CAP PO SCH ×3 (08:40→20:38)
[2016-08-08] MEDS: MULTIVITAMIN TAB PO SCH (08:40)
[2016-08-08] MEDS: PANTOprazole SOD 40 MG TAB PO SCH (08:41)
[2016-08-08] MEDS: GUAIFENESIN 600 MG TABCR PO SCH ×2 (08:41→20:39)
[2016-08-08] MEDS: RIFAXIMIN TAB 550 MG TAB PO SCH ×2 (08:41→20:39)
[2016-08-08] MEDS: ENOXAPARIN 40 MG/0.4 ML SYR SQ SCH (08:42)
[2016-08-08] MEDS: BOOST VANILLA PO SCH ×6 (08:45→19:12)
[2016-08-08 15:51] VITALS: BP 109/61; PULSE 67; TEMP 37; O2SAT 94
--- NOTE | 2016-08-08 17:51 | Progress Note ---
Medicine Progress Note Date & Time of Visit: Aug 08, 2016 at 15:56. 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 She is s/p ORIF on 07/28 for both areas and is doing well with respect to pain. HRS improved after octreotide and midodrine. Mental status is remaining appropriate, and energy level and appetite are improved. Abdominal cramping is better today; Ativan didn't help much yesterday. Persistent epigastric tenderness with clinical picture consistent with pancreatitis. when I mention this to her, she says "it' s all part of this liver issue." -eating well today -mentation and energy level at baseline -no post-op pain -bruising in abdomen -no other symptoms reported Objective Last 8 Hrs Date Time Temp Pulse Resp B/P (MAP) Pulse Ox O2 Delivery O2 Flow Rate FiO2 08/08/16 15:51 37.0 67 16 109/61 (77) 94 Room Air 08/08/16 10:56 Room Air Physical Exam: GEN: WNWD, in no acute distress, mentating appropriately. HEENT: NC/AT, pupils are round and reactive, + scleral icterus CARDIO: reg rate, S1/2 heard without m/g/r LUNGS: CTA bilaterally, no crackles, rales or wheezes, good diaphragmatic excursion ABD: soft, extensively ecchymotic area on RLQ-improving, non-distended, no rebound or guarding, +BS, +TTP in epigastric area she states causes cramping when pushed on EXTREMITY: RP and DP palpable 2+ bilat, no LE swelling or edema, extremities are warm and well-perfused, R wrist in soft cast and, LUE in sling, [place] in place on R shoulder incision, ecchymosis spots on legs bilaterally NEURO: CN 2-12 grossly intact, no gross focal deficits. MUSC: generalized weakness noted SKIN: warm and dry and as above Laboratory Results: 08/07/16 07:51 08/07/16 07:51 Test 07/26/16 17:00 07/31/16 05:35 07/31/16 09:37 08/01/16 08:13 Lipase 125 U/L (73-393) Globulin 3.4 gm/dl (2.5-4.0) Albumin/Globulin Ratio 0.7 (0.9-2) Arterial Blood pH 7.41 (7.35-7.45) Arterial Blood Partial Pressure CO2 37 mmHg (35-46) Arterial Blood Partial Pressure O2 77 mm/Hg (80-95) Arterial Blood HCO3 23 mmol/L (19-24) Arterial Blood Oxygen Saturation 94.9 % (90-95) Arterial Blood Base Excess -1.2 mEq/L (-9-1.8) Arterial Blood Gas Delivery 2l Amado Test POS (POS) Hypochromasia PRESENT Test 08/02/16 00:00 08/02/16 07:51 08/03/16 06:59 08/05/16 06:06 Urine Random Sodium 14 mEq/L Procalcitonin 1.38 ng/ml (0-0.5) Immature Granulocyte % (Auto) 1.3 % White Blood Count 11.47 K/uL (4.8-10.8) Red Blood Count 2.69 M/uL (4.2-5.4) Hemoglobin 8.6 g/dL (12.0-16.0) Hematocrit 25.4 % (37-47) Mean Corpuscular Volume 94.4 fL (80-100) Mean Corpuscular Hemoglobin 32.0 pg (25-34) Mean Corpuscular Hemoglobin Concent 33.9 g/dl (32-36) Platelet Count 112 K/uL (130-400) Mean Platelet Volume 11.3 fL (7.4-10.4) Neutrophils (%) (Auto) 77.7 % Lymphocytes (%) (Auto) 7.9 % Monocytes (%) (Auto) 10.1 % Eosinophils (%) (Auto) 2.8 % Basophils (%) (Auto) 0.2 % Neutrophils # (Auto) 8.91 K/uL (1.4-6.5) Lymphocytes # (Auto) 0.91 K/uL (1.2-3.4) Monocytes # (Auto) 1.16 K/uL (0.11-0.59) Eosinophils # (Auto) 0.32 K/uL (0-0.5) Basophils # (Auto) 0.02 K/uL (0-0.2) Immature Granulocyte # (Auto) 0.15 K/uL (0.00-0.02) Polychromasia 1+ Basophilic Stippling 1+ Ammonia 51.0 umol/L (11-32) 25-Hydroxy Vitamin D Total 21.5 ng/ml (30-100) Test 08/05/16 19:30 08/06/16 06:11 08/07/16 07:51 Urine Color DK YELLOW Urine Appearance CLEAR (CLEAR) Urine pH 5.5 (4.5-7.5) Urine Specific [place] 1.016 (1.000-1.030) Urine Protein NEG (NEG) Urine Glucose (UA) NEG (NEG) Urine Ketones NEG (NEG) Urine Occult Blood NEG (NEG) Urine Nitrite NEG (NEG) Urine Bilirubin NEG (NEG) Urine Urobilinogen NEG (NEG) Urine Leukocyte Esterase NEG (NEG) Prothrombin Time 13.4 SECONDS (9.0-12.0) Prothromb Time International Ratio 1.2 (0.9-1.1) Total Bilirubin 5.3 mg/dl (0.2-1) Direct Bilirubin 3.5 mg/dl (0-0.2) Aspartate Amino Transf (AST/SGOT) 35 U/L (15-37) Alanine Aminotransferase (ALT/SGPT) 14 U/L (12-78) Alkaline Phosphatase 170 U/L (45-117) Total Protein 5.8 gm/dl (6.4-8.2) Albumin 3.6 gm/dl (3.4-5.0) Red Blood Count 2.91 M/uL (4.2-5.4) Mean Corpuscular Volume 96.2 fL (80-100) Mean Corpuscular Hemoglobin 31.6 pg (25-34) Mean Corpuscular Hemoglobin Concent 32.9 g/dl (32-36) RDW Standard Deviation 60.5 fL (36.4-46.3) RDW Coefficient of Variation 17.6 % (11.5-14.5) Mean Platelet Volume 9.8 fL (7.4-10.4) Anion Gap 7.0 mmol/L (3-11) Est Creatinine Clear Calc Drug Dose 54.5 ml/min Estimated GFR () 57.7 Estimated GFR (Non- 49.8 BUN/Creatinine Ratio 43.0 (10-20) Calcium Level 9.3 mg/dl (8.5-10.1) Magnesium Level 2.0 mg/dl (1.8-2.4) Date/Time Source Procedure Growth Status 08/05/16 19:30 Urine,Catheterized Urine Culture - Final NO GROWTH - LESS THAN 1,000 COLONIES/ML Complete Assessment & Plan 60 year old female with history of Primary Biliary Cirrhosis, 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 She is s/p ORIF on 07/28 for both areas and is doing well with respect to pain. HRS improved after octreotide and midodrine. Mental status is remaining appropriate, and energy level and appetite are improved. Abdominal cramping is better today; Ativan didn't help much yesterday. Persistent epigastric tenderness with clinical picture consistent with pancreatitis. when I mention this to her, she says "it' s all part of this liver issue." 1. Right humeral fracture, left radial fracture secondary to recurrent mechanical fall ambulatory dysfunction: s/p ORIF on 07/28. Pain is controlled. Took down shoulder dressing and apply dry dressings per Ortho recs on 08/05. [place] in place with no erythema or oozing from closed incision. L wrist in soft cast. 2. Altered mental status-resolved, continues to improve. No narcotics or pain meds of any kind if avoidable. Cont current therapy for now and monitor. 3. HRS-resolved 4. Acute on chronic renal failure-resolved and back to baseline. Cont Lasix and aldactone per home regimen. 5 h/o PBC- continues on immunomodulator therapy and is s/p TIPS. Ocaliva once weekly per home regimen. 6. Chronic constrictive pericarditis, stable on chronic steroid therapy. 7. Anemia-stable, likely 2/2 chronic disease and post-op state 8. Ecchymosis 2/2 multiple subQ injections which she is refusing. Will dc them from her med list. She verbalized understanding of the risks. 9. Pancreatitis-clinically there is epigastric tenderness that is persistent and although she is tolerating PO, this is an ever-improving process. She states that she knows this is going on, however, lipase on admission was normal. Will discuss with GI team but therapy is supportive, which is what we are doing. Cont to monitor this closely. DVT proph: Lovenox. Full Code Dispo-to rehab when approved. Patient is medically stable to go. A peer-to- peer was attempted on Tuesday afternoon by me, however, I did not receive a callback from anyone. Will try to connect again on Tue. Apparently, her is against her going to SNF. Alexia Aldana DO [facility] Hospitalist. Consultants: GI, Nephro, Pulm Current Inpatient Medications: Current Inpatient Medications Medications (Trade) Dose Ordered Sig/Michael Route Start Time Stop Time Status Last Admin Dose Admin Prednisone (PredniSONE TAB) 1 mg QAM PO 07/27/16 09:00 08/26/16 08:59 08/08/16 08:41 1 MG Gabapentin (Neurontin Cap) 300 mg TID PO 07/26/16 21:00 08/25/16 20:59 08/08/16 14:28 300 MG Ursodiol (Actigall Cap) 600 mg BIDM PO 07/26/16 19:02 08/25/16 19:01 08/08/16 08:33 600 MG Propranolol HCl (Inderal Tab) 10 mg QAM PO 07/27/16 09:00 08/26/16 08:59 08/08/16 08:39 10 MG Cetirizine HCl (zyrTEC TAB) 10 mg DAILY PRN PO 07/26/16 19:15 08/25/16 19:14 08/07/16 08:38 10 MG Guaifenesin (Mucinex Contr Rel Tab) 600 mg Q12 PO 07/26/16 21:00 08/25/16 20:59 08/08/16 08:41 600 MG Metoclopramide HCl (Reglan Inj) 10 mg Q6H PRN IV 07/28/16 21:30 08/27/16 21:29 Ondansetron HCl (Zofran Inj) 4 mg Q6H PRN IV 07/28/16 21:30 08/27/16 21:29 Pantoprazole Sodium (Protonix Tab) 40 mg QAM PO 07/29/16 09:00 08/28/16 08:59 08/08/16 08:41 40 MG Miscellaneous Medication (No Nsaids) 1 ea UD N/A 07/28/16 21:30 08/27/16 21:29 Naloxone HCl (Narcan Inj) 0.1 mg Q2M PRN IV 07/28/16 21:30 08/27/16 21:29 Multivitamins (Multivitamin Tab) 1 tab DAILY PO 07/29/16 09:00 08/28/16 08:59 08/08/16 08:40 1 TAB Ferrous Gluconate (Ferrous Gluconate Tab) 324 mg TIDM PO 07/29/16 08:30 08/28/16 08:29 08/08/16 12:30 324 MG Enteral Nutritional Formula (Boost) 1 can TIDM PO 07/29/16 21:00 08/28/16 20:59 08/08/16 08:45 1 CAN Miscellaneous (Ocaliva) 5 mg Fr@0900 PO 07/30/16 09:00 08/29/16 08:59 08/07/16 14:20 5 MG Aspirin (Ecotrin Tab) 81 mg QAM PO 07/31/16 09:00 08/30/16 08:59 08/08/16 08:38 81 MG Oxycodone HCl (Roxicodone Immediate Rel Tab) 5 mg Q12H PRN PO 07/31/16 18:00 08/09/16 17:59 08/05/16 17:33 5 MG Lactulose (Chronulac Syrup) 15 gm TID PO 07/31/16 14:00 08/30/16 13:59 08/07/16 21:17 15 GM Rifaximin (Xifaxan Tab) 550 mg BID PO 07/31/16 21:00 08/30/16 20:59 08/08/16 08:41 550 MG Enoxaparin Sodium (Lovenox Inj) 40 mg QAM SQ 08/06/16 09:00 09/05/16 08:59 08/08/16 08:42 40 MG Lidocaine/ Prilocaine (Emla 2.5% Crm) 1 ea DAILY@0800 EXT 08/06/16 08:00 09/05/16 07:59 08/08/16 08:31 1 EA Furosemide (Lasix Tab) 80 mg QAM PO 08/06/16 09:00 09/05/16 08:59 08/08/16 08:40 80 MG Spironolactone (Aldactone Tab) 75 mg QAM PO 08/06/16 09:00 09/05/16 08:59 08/08/16 08:37 75 MG Levalbuterol (Xopenex Hfa Inhaler) 2 puffs Q6 INH 08/07/16 12:00 09/06/16 11:59 08/08/16 12:00 2 PUFFS Ergocalciferol (Vitamin D Cap) 50,000 interunit Q7D@1100 PO 08/07/16 11:00 10/23/16 11:01 08/07/16 11:34 50,000 INTERUNIT
[2016-08-08 22:57] VITALS: BP 103/68; PULSE 65; TEMP 36.6; O2SAT 94
[2016-08-09] MEDS: LEValbuterol HFA 15GM INHALER INH SCH ×3 (05:37→18:10)
[2016-08-09 06:08] LABS: HEMATOCRIT 27.2 % (37-47); MEAN CELL VOLUME 96.8 fL (80-100); MEAN CORPUSCULAR HEMOGLOBIN 31.3 pg (25-34); MEAN CORPUSCULAR HGB CONC 32.4 g/dl (32-36); MEAN PLATELET VOLUME 10.6 fL (7.4-10.4); PLATELET COUNT 170 K/uL (130-400); RED BLOOD COUNT 2.81 M/uL (4.2-5.4); WHITE BLOOD COUNT 10.74 K/uL (4.8-10.8)
[2016-08-09 06:45] LABS: BUN/CREATININE RATIO 39.8 (10-20); CALCIUM 8.7 mg/dl (8.5-10.1); CREATININE 0.99 mg/dl (0.60-1.20); POTASSIUM 2.8 mmol/L (3.5-5.1)
[2016-08-09 06:56] VITALS: BP 108/67; PULSE 65; TEMP 36.9; O2SAT 94
[2016-08-09] MEDS ORDERED: POTASSIUM CHLR 20 MEQ / WTR 40 MEQ in PREMIXED WATER 100 ML IV STA (07:54)
[2016-08-09] MEDS: LIDOCAINE/PRILOCAINE 2.5% EA CRM EXT SCH (08:00)
--- NOTE | 2016-08-09 08:11 | Nephrology Progress Note ---
Nephrology Progress Note Date of Service: Aug 09, 2016. Subjective 60 yo female with PBC with ileana from HRS which resolved. pt now with elevated lipase concerning for pancreatitis. pt also complaining of a bad headache this morning. potassium levels found to be low today as well. has edema in legs. Objective Date Time Temp Pulse Resp B/P (MAP) Pulse Ox O2 Delivery O2 Flow Rate FiO2 08/09/16 06:56 36.9 65 19 108/67 (81) 94 Room Air 08/08/16 23:30 Room Air 08/08/16 22:57 36.6 65 24 103/68 (80) 94 Room Air 08/08/16 15:51 37.0 67 16 109/61 (77) 94 Room Air 08/08/16 15:20 Room Air 08/08/16 10:56 Room Air Physical Exam: General-aaox3 Eyes-no scleral icterus ENT-mmm Neck-supple Lungs-basilar rales Heart-regular Abdomen-bs+, soft, nontender Extremities-+2 edema in legs, pitting, arm in cast and other arm in sling Neuro-nonfocal Current Inpatient Medications Medications (Trade) Dose Ordered Sig/Michael Route Start Time Stop Time Status Last Admin Dose Admin Prednisone (PredniSONE TAB) 1 mg QAM PO 07/27/16 09:00 08/26/16 08:59 08/08/16 08:41 1 MG Gabapentin (Neurontin Cap) 300 mg TID PO 07/26/16 21:00 08/25/16 20:59 08/08/16 20:38 300 MG Ursodiol (Actigall Cap) 600 mg BIDM PO 07/26/16 19:02 08/25/16 19:01 08/08/16 17:32 600 MG Propranolol HCl (Inderal Tab) 10 mg QAM PO 07/27/16 09:00 08/26/16 08:59 08/08/16 08:39 10 MG Cetirizine HCl (zyrTEC TAB) 10 mg DAILY PRN PO 07/26/16 19:15 08/25/16 19:14 08/07/16 08:38 10 MG Guaifenesin (Mucinex Contr Rel Tab) 600 mg Q12 PO 07/26/16 21:00 08/25/16 20:59 08/08/16 20:39 600 MG Metoclopramide HCl (Reglan Inj) 10 mg Q6H PRN IV 07/28/16 21:30 08/27/16 21:29 Ondansetron HCl (Zofran Inj) 4 mg Q6H PRN IV 07/28/16 21:30 08/27/16 21:29 Pantoprazole Sodium (Protonix Tab) 40 mg QAM PO 07/29/16 09:00 08/28/16 08:59 08/08/16 08:41 40 MG Miscellaneous Medication (No Nsaids) 1 ea UD N/A 07/28/16 21:30 08/27/16 21:29 Naloxone HCl (Narcan Inj) 0.1 mg Q2M PRN IV 07/28/16 21:30 08/27/16 21:29 Multivitamins (Multivitamin Tab) 1 tab DAILY PO 07/29/16 09:00 08/28/16 08:59 08/08/16 08:40 1 TAB Ferrous Gluconate (Ferrous Gluconate Tab) 324 mg TIDM PO 07/29/16 08:30 08/28/16 08:29 08/08/16 17:32 324 MG Enteral Nutritional Formula (Boost) 1 can TIDM PO 07/29/16 21:00 08/28/16 20:59 08/08/16 19:12 1 CAN Miscellaneous (Ocaliva) 5 mg Fr@0900 PO 07/30/16 09:00 08/29/16 08:59 08/07/16 14:20 5 MG Aspirin (Ecotrin Tab) 81 mg QAM PO 07/31/16 09:00 08/30/16 08:59 08/08/16 08:38 81 MG Oxycodone HCl (Roxicodone Immediate Rel Tab) 5 mg Q12H PRN PO 07/31/16 18:00 08/09/16 17:59 08/05/16 17:33 5 MG Lactulose (Chronulac Syrup) 15 gm TID PO 07/31/16 14:00 08/30/16 13:59 08/07/16 21:17 15 GM Rifaximin (Xifaxan Tab) 550 mg BID PO 07/31/16 21:00 08/30/16 20:59 08/08/16 20:39 550 MG Lidocaine/ Prilocaine (Emla 2.5% Crm) 1 ea DAILY@0800 EXT 08/06/16 08:00 09/05/16 07:59 08/08/16 08:31 1 EA Furosemide (Lasix Tab) 80 mg QAM PO 08/06/16 09:00 09/05/16 08:59 08/08/16 08:40 80 MG Spironolactone (Aldactone Tab) 75 mg QAM PO 08/06/16 09:00 09/05/16 08:59 08/08/16 08:37 75 MG Levalbuterol (Xopenex Hfa Inhaler) 2 puffs Q6 INH 08/07/16 12:00 09/06/16 11:59 08/09/16 05:37 2 PUFFS Ergocalciferol (Vitamin D Cap) 50,000 interunit Q7D@1100 PO 08/07/16 11:00 10/23/16 11:01 08/07/16 11:34 50,000 INTERUNIT Potassium Chloride (Klor-Con M10) 40 meq NOW PO 08/09/16 08:00 09/08/16 07:59 UNV Potassium Chloride 40 meq/ Prmx 100 ml @ 50 mls/hr NOW STAT IV 08/09/16 07:54 08/09/16 09:53 UNV Last 24 Hours Test 08/09/16 05:28 White Blood Count 10.74 K/uL Red Blood Count 2.81 M/uL Hemoglobin 8.8 g/dL Hematocrit 27.2 % Mean Corpuscular Volume 96.8 fL Mean Corpuscular Hemoglobin 31.3 pg Mean Corpuscular Hemoglobin Concent 32.4 g/dl RDW Standard Deviation 62.5 fL RDW Coefficient of Variation 18.1 % Platelet Count 170 K/uL Mean Platelet Volume 10.6 fL Sodium Level 141 mmol/L Potassium Level 2.8 mmol/L Chloride Level 108 mmol/L Carbon Dioxide Level 22 mmol/L Anion Gap 11.0 mmol/L Blood Urea Nitrogen 39 mg/dl Creatinine 0.99 mg/dl Est Creatinine Clear Calc Drug Dose 66.1 ml/min Estimated GFR () 72.8 Estimated GFR (Non- 62.8 BUN/Creatinine Ratio 39.8 Random Glucose 86 mg/dl Calcium Level 8.7 mg/dl Lipase 1123 U/L Assessment & Plan Volume overload-pt with edema in legs which is not improving with the oral diuretics. will switch to iv diuretics hoping to mobilize the fluid better. hypokalemia-repleting potassium with both iv and oral and rechecking mag and bmp at 2pm. potassium may additionally worsen with iv diuretics so may need further prn k depending on labs this afternoon. GI: pt with elevated lipase. abdominal exam is benign this morning. defer to GI and primary hospitalist. will make her npo x meds for now.
[2016-08-09] MEDS: FERROUS GLUCONATE 324 MG TAB PO SCH (08:30)
[2016-08-09] MEDS ORDERED: POTASSIUM CHLR 10MEQ / WTR IV SCH (08:30)
[2016-08-09] MEDS: BOOST VANILLA PO SCH ×2 (08:30)
[2016-08-09] MEDS ORDERED: POTASSIUM CHLORIDE 10 MEQ TABCR PO ONE (08:30)
[2016-08-09] MEDS: LACTULOSE SYRUP 10 GM/15 ML BTL 473 ML PO SCH ×3 (08:35→21:00)
[2016-08-09] MEDS: RIFAXIMIN TAB 550 MG TAB PO SCH ×2 (08:36→21:24)
[2016-08-09] MEDS: MULTIVITAMIN TAB PO SCH (08:37)
[2016-08-09] MEDS: GABAPENTIN 300 MG CAP PO SCH ×3 (08:37→21:24)
[2016-08-09] MEDS: PROPRANOLOL HCL 10 MG TAB PO SCH (08:38)
[2016-08-09] MEDS: PANTOprazole SOD 40 MG TAB PO SCH (08:39)
[2016-08-09] MEDS: URSODIOL 300 MG CAP PO SCH ×2 (08:40→18:09)
[2016-08-09] MEDS: GUAIFENESIN 600 MG TABCR PO SCH ×2 (08:41→21:24)
[2016-08-09] MEDS: ASPIRIN 81 MG ECTAB PO SCH (08:41)
[2016-08-09] MEDS ORDERED: ALBUMIN 25% 50 ML with FUROSEMIDE INJ 80 MG IV SCH ×2 (09:00)
[2016-08-09] MEDS ORDERED: POTASSIUM CHLORIDE 20 MEQ TABCR PO ONE (11:00)
--- NOTE | 2016-08-09 11:05 | Progress Note ---
Medicine Progress Note Date & Time of Visit: Aug 09, 2016 at 10:40. 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 She is s/p ORIF on 07/28 for both areas and is doing well with respect to pain. HRS improved after octreotide and midodrine. Mental status is remaining appropriate, and energy level and appetite are improved. Abdominal cramping is better today; Ativan didn't help much yesterday. Persistent epigastric tenderness with clinical picture consistent with pancreatitis. when I mention this to her, she says "it' s all part of this liver issue." This morning her pain is persistent and chronic, unchanged from yesterday and her lipase is 1100. She was made NPO for some bowel rest. -BENZ this morning -OMT performed with improvement in pain -somatic dysfunction/tightness in traps L>R likely 2/2 sling, loosened strap -no meds needed for BENZ -no sleep overnight because door was open -pt is teary because she won't be able to see her kids for August 10 -she expressed that she doesn't want to go to rehab but understands the dangers of going home -post-op pain well-controlled, and no change in pain in her abdomen overnight Objective Last 8 Hrs Date Time Temp Pulse Resp B/P (MAP) Pulse Ox O2 Delivery O2 Flow Rate FiO2 08/09/16 06:56 36.9 65 19 108/67 (81) 94 Room Air Physical Exam: GEN: WNWD, in no acute distress, mentating appropriately. HEENT: NC/AT, pupils are round and reactive, + scleral icterus CARDIO: reg rate, S1/2 heard without m/g/r LUNGS: CTA bilaterally, no crackles, rales or wheezes, good diaphragmatic excursion ABD: soft, extensively ecchymotic area on RLQ-improving, non-distended, no rebound or guarding, +BS, +TTP in epigastric area she states causes cramping when pushed on EXTREMITY: RP and DP palpable 2+ bilat, no LE swelling or edema, extremities are warm and well-perfused, R wrist in soft cast and, LUE in sling, [place] in place on R shoulder incision, ecchymosis spots on legs bilaterally NEURO: CN 2-12 grossly intact, no gross focal deficits. MUSC: generalized weakness noted SKIN: warm and dry and as above Laboratory Results: 08/09/16 05:28 08/09/16 05:28 Test 07/31/16 05:35 07/31/16 09:37 08/01/16 08:13 08/02/16 00:00 Globulin 3.4 gm/dl (2.5-4.0) Albumin/Globulin Ratio 0.7 (0.9-2) Arterial Blood pH 7.41 (7.35-7.45) Arterial Blood Partial Pressure CO2 37 mmHg (35-46) Arterial Blood Partial Pressure O2 77 mm/Hg (80-95) Arterial Blood HCO3 23 mmol/L (19-24) Arterial Blood Oxygen Saturation 94.9 % (90-95) Arterial Blood Base Excess -1.2 mEq/L (-9-1.8) Arterial Blood Gas Delivery 2l Amado Test POS (POS) Hypochromasia PRESENT Urine Random Sodium 14 mEq/L Test 08/02/16 07:51 08/03/16 06:59 08/05/16 06:06 08/05/16 19:30 Procalcitonin 1.38 ng/ml (0-0.5) Immature Granulocyte % (Auto) 1.3 % White Blood Count 11.47 K/uL (4.8-10.8) Red Blood Count 2.69 M/uL (4.2-5.4) Hemoglobin 8.6 g/dL (12.0-16.0) Hematocrit 25.4 % (37-47) Mean Corpuscular Volume 94.4 fL (80-100) Mean Corpuscular Hemoglobin 32.0 pg (25-34) Mean Corpuscular Hemoglobin Concent 33.9 g/dl (32-36) Platelet Count 112 K/uL (130-400) Mean Platelet Volume 11.3 fL (7.4-10.4) Neutrophils (%) (Auto) 77.7 % Lymphocytes (%) (Auto) 7.9 % Monocytes (%) (Auto) 10.1 % Eosinophils (%) (Auto) 2.8 % Basophils (%) (Auto) 0.2 % Neutrophils # (Auto) 8.91 K/uL (1.4-6.5) Lymphocytes # (Auto) 0.91 K/uL (1.2-3.4) Monocytes # (Auto) 1.16 K/uL (0.11-0.59) Eosinophils # (Auto) 0.32 K/uL (0-0.5) Basophils # (Auto) 0.02 K/uL (0-0.2) Immature Granulocyte # (Auto) 0.15 K/uL (0.00-0.02) Polychromasia 1+ Basophilic Stippling 1+ Ammonia 51.0 umol/L (11-32) 25-Hydroxy Vitamin D Total 21.5 ng/ml (30-100) Urine Color DK YELLOW Urine Appearance CLEAR (CLEAR) Urine pH 5.5 (4.5-7.5) Urine Specific [place] 1.016 (1.000-1.030) Urine Protein NEG (NEG) Urine Glucose (UA) NEG (NEG) Urine Ketones NEG (NEG) Urine Occult Blood NEG (NEG) Urine Nitrite NEG (NEG) Urine Bilirubin NEG (NEG) Urine Urobilinogen NEG (NEG) Urine Leukocyte Esterase NEG (NEG) Test 08/06/16 06:11 08/07/16 07:51 08/09/16 05:28 Prothrombin Time 13.4 SECONDS (9.0-12.0) Prothromb Time International Ratio 1.2 (0.9-1.1) Total Bilirubin 5.3 mg/dl (0.2-1) Direct Bilirubin 3.5 mg/dl (0-0.2) Aspartate Amino Transf (AST/SGOT) 35 U/L (15-37) Alanine Aminotransferase (ALT/SGPT) 14 U/L (12-78) Alkaline Phosphatase 170 U/L (45-117) Total Protein 5.8 gm/dl (6.4-8.2) Albumin 3.6 gm/dl (3.4-5.0) Magnesium Level 2.0 mg/dl (1.8-2.4) Red Blood Count 2.81 M/uL (4.2-5.4) Mean Corpuscular Volume 96.8 fL (80-100) Mean Corpuscular Hemoglobin 31.3 pg (25-34) Mean Corpuscular Hemoglobin Concent 32.4 g/dl (32-36) RDW Standard Deviation 62.5 fL (36.4-46.3) RDW Coefficient of Variation 18.1 % (11.5-14.5) Mean Platelet Volume 10.6 fL (7.4-10.4) Anion Gap 11.0 mmol/L (3-11) Est Creatinine Clear Calc Drug Dose 66.1 ml/min Estimated GFR () 72.8 Estimated GFR (Non- 62.8 BUN/Creatinine Ratio 39.8 (10-20) Calcium Level 8.7 mg/dl (8.5-10.1) Lipase 1123 U/L (73-393) Date/Time Source Procedure Growth Status 08/05/16 19:30 Urine,Catheterized Urine Culture - Final NO GROWTH - LESS THAN 1,000 COLONIES/ML Complete Last 24 Hours Test 08/09/16 05:28 White Blood Count 10.74 K/uL Red Blood Count 2.81 M/uL Hemoglobin 8.8 g/dL Hematocrit 27.2 % Mean Corpuscular Volume 96.8 fL Mean Corpuscular Hemoglobin 31.3 pg Mean Corpuscular Hemoglobin Concent 32.4 g/dl RDW Standard Deviation 62.5 fL RDW Coefficient of Variation 18.1 % Platelet Count 170 K/uL Mean Platelet Volume 10.6 fL Sodium Level 141 mmol/L Potassium Level 2.8 mmol/L Chloride Level 108 mmol/L Carbon Dioxide Level 22 mmol/L Anion Gap 11.0 mmol/L Blood Urea Nitrogen 39 mg/dl Creatinine 0.99 mg/dl Est Creatinine Clear Calc Drug Dose 66.1 ml/min Estimated GFR () 72.8 Estimated GFR (Non- 62.8 BUN/Creatinine Ratio 39.8 Random Glucose 86 mg/dl Calcium Level 8.7 mg/dl Lipase 1123 U/L Assessment & Plan 60 year old female with history of Primary Biliary Cirrhosis, 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 She is s/p ORIF on 07/28 for both areas and is doing well with respect to pain. HRS improved after octreotide and midodrine. Mental status is remaining appropriate, and energy level and appetite are improved. Abdominal cramping is better today; Ativan didn't help much yesterday. Persistent epigastric tenderness with clinical picture consistent with pancreatitis. when I mention this to her, she says "it' s all part of this liver issue." This morning her pain is persistent and chronic, unchanged from yesterday and her lipase is 1100. She was made NPO for some bowel rest. 1. Acute Pancreatitis-likely an acute exacerbation of something chronic, however, lipase on admission was 125 and now is 1100. She is post-op and has been treated for hepatorenal syndrome last week with subsequent resolution of this and metabolic encephalopathy. She has had fluid shifts and over this hospital course, and other etiologies for this include but are not limited to Lasix and Octreotide or a possible gallstone. I discussed the utility of getting a CT abd/pelvis, and will hold off on RUQ u/s until GI decides on what imaging studies they would be comfortable with. Stopping Lasix at this time- discussed with Nephro who is OK with this. Cont supportive care with pain control and bowel rest x meds and ice chips for comfort. Cont daily reassessment. 2. Hypokalemia-cannot tolerate IV replacement, switched to PO. Recheck and replace as needed. 3. Headache 2/2 tension and somatic dysfunction. Myofascial release performed and soft tissue massage and stretching applied to suboccipital area, c-spine, traps and rhomboids which are very tight. Sling strap is very tight and there was improvement with loosening it. No meds needed at this time. 4. Right humeral fracture, left radial fracture secondary to recurrent mechanical fall ambulatory dysfunction: s/p ORIF on 07/28. Pain is controlled. Took down shoulder dressing and apply dry dressings per Ortho recs on 08/05. [place] in place with no erythema or oozing from closed incision. L wrist in soft cast. Will re-engage with Ortho today as she is two weeks post-op. They will be by to see her today. 5. h/o PBC- continues on immunomodulator therapy and is s/p TIPS. Ocaliva once weekly per home regimen. 6. Chronic constrictive pericarditis, stable on chronic steroid therapy. 7. Anemia-stable, likely 2/2 chronic disease and post-op state 8. Ecchymosis 2/2 multiple subQ injections which she is refusing. Will dc them from her med list. She verbalized understanding of the risks. DVT proph: Lovenox-held per patient refusal Full Code Dispo-to rehab when approved. Patient is medically stable to go. A peer-to- peer was attempted on Tuesday afternoon by me, however, I did not receive a callback from anyone. Will try to connect again on Tue. Apparently, her is against her going to SNF. Alexia Aldana DO [facility] Hospitalist. Consultants: GI, Nephro, Pulm Current Inpatient Medications: Current Inpatient Medications Medications (Trade) Dose Ordered Sig/Michael Route Start Time Stop Time Status Last Admin Dose Admin Prednisone (PredniSONE TAB) 1 mg QAM PO 07/27/16 09:00 08/26/16 08:59 08/09/16 08:38 1 MG Gabapentin (Neurontin Cap) 300 mg TID PO 07/26/16 21:00 08/25/16 20:59 08/09/16 08:37 300 MG Ursodiol (Actigall Cap) 600 mg BIDM PO 07/26/16 19:02 08/25/16 19:01 08/09/16 08:40 600 MG Propranolol HCl (Inderal Tab) 10 mg QAM PO 07/27/16 09:00 08/26/16 08:59 08/09/16 08:38 10 MG Cetirizine HCl (zyrTEC TAB) 10 mg DAILY PRN PO 07/26/16 19:15 08/25/16 19:14 08/07/16 08:38 10 MG Guaifenesin (Mucinex Contr Rel Tab) 600 mg Q12 PO 07/26/16 21:00 08/25/16 20:59 08/09/16 08:41 600 MG Metoclopramide HCl (Reglan Inj) 10 mg Q6H PRN IV 07/28/16 21:30 08/27/16 21:29 Ondansetron HCl (Zofran Inj) 4 mg Q6H PRN IV 07/28/16 21:30 08/27/16 21:29 Pantoprazole Sodium (Protonix Tab) 40 mg QAM PO 07/29/16 09:00 08/28/16 08:59 08/09/16 08:39 40 MG Miscellaneous Medication (No Nsaids) 1 ea UD N/A 07/28/16 21:30 08/27/16 21:29 Naloxone HCl (Narcan Inj) 0.1 mg Q2M PRN IV 07/28/16 21:30 08/27/16 21:29 Multivitamins (Multivitamin Tab) 1 tab DAILY PO 07/29/16 09:00 08/28/16 08:59 08/09/16 08:37 1 TAB Ferrous Gluconate (Ferrous Gluconate Tab) 324 mg TIDM PO 07/29/16 08:30 08/28/16 08:29 08/08/16 17:32 324 MG Enteral Nutritional Formula (Boost) 1 can TIDM PO 07/29/16 21:00 08/28/16 20:59 08/08/16 19:12 1 CAN Miscellaneous (Ocaliva) 5 mg Fr@0900 PO 07/30/16 09:00 08/29/16 08:59 08/07/16 14:20 5 MG Aspirin (Ecotrin Tab) 81 mg QAM PO 07/31/16 09:00 08/30/16 08:59 08/09/16 08:41 81 MG Oxycodone HCl (Roxicodone Immediate Rel Tab) 5 mg Q12H PRN PO 07/31/16 18:00 08/09/16 17:59 08/05/16 17:33 5 MG Lactulose (Chronulac Syrup) 15 gm TID PO 07/31/16 14:00 08/30/16 13:59 08/07/16 21:17 15 GM Rifaximin (Xifaxan Tab) 550 mg BID PO 07/31/16 21:00 08/30/16 20:59 08/09/16 08:36 550 MG Lidocaine/ Prilocaine (Emla 2.5% Crm) 1 ea DAILY@0800 EXT 08/06/16 08:00 09/05/16 07:59 08/08/16 08:31 1 EA Levalbuterol (Xopenex Hfa Inhaler) 2 puffs Q6 INH 08/07/16 12:00 09/06/16 11:59 08/09/16 05:37 2 PUFFS Ergocalciferol (Vitamin D Cap) 50,000 interunit Q7D@1100 PO 08/07/16 11:00 10/23/16 11:01 08/07/16 11:34 50,000 INTERUNIT
--- NOTE | 2016-08-09 12:10 | Gastroenterology Progress Note ---
Progress Note Date of Service: Aug 09, 2016 Subjective Pt evaluation today including: conversation w/ patient, physical exam, chart review, lab review, review of studies, review of inpatient medication list Pt c/o R hand pain on IV site, KCl running. She is denying abd pain though when epigastric palpated she is grimacing. She notes that her epigastric pain has been since she was diagnosed w PBC. She denies any n/v. Lipase up to 1100, K 2.8. Review of Systems Constitutional: No fever, No chills Respiratory: No cough, No shortness of breath Abdomen: + see HPI, + pain, No nausea, No vomiting Skin: No rash, No itch, No jaundice Medications Current Inpatient Medications Medications (Trade) Dose Ordered Sig/Michael Route Start Time Stop Time Status Last Admin Dose Admin Prednisone (PredniSONE TAB) 1 mg QAM PO 07/27/16 09:00 08/26/16 08:59 08/09/16 08:38 1 MG Gabapentin (Neurontin Cap) 300 mg TID PO 07/26/16 21:00 08/25/16 20:59 08/09/16 08:37 300 MG Ursodiol (Actigall Cap) 600 mg BIDM PO 07/26/16 19:02 08/25/16 19:01 08/09/16 08:40 600 MG Propranolol HCl (Inderal Tab) 10 mg QAM PO 07/27/16 09:00 08/26/16 08:59 08/09/16 08:38 10 MG Cetirizine HCl (zyrTEC TAB) 10 mg DAILY PRN PO 07/26/16 19:15 08/25/16 19:14 08/07/16 08:38 10 MG Guaifenesin (Mucinex Contr Rel Tab) 600 mg Q12 PO 07/26/16 21:00 08/25/16 20:59 08/09/16 08:41 600 MG Metoclopramide HCl (Reglan Inj) 10 mg Q6H PRN IV 07/28/16 21:30 08/27/16 21:29 Ondansetron HCl (Zofran Inj) 4 mg Q6H PRN IV 07/28/16 21:30 08/27/16 21:29 Pantoprazole Sodium (Protonix Tab) 40 mg QAM PO 07/29/16 09:00 08/28/16 08:59 08/09/16 08:39 40 MG Miscellaneous Medication (No Nsaids) 1 ea UD N/A 07/28/16 21:30 08/27/16 21:29 Naloxone HCl (Narcan Inj) 0.1 mg Q2M PRN IV 07/28/16 21:30 08/27/16 21:29 Multivitamins (Multivitamin Tab) 1 tab DAILY PO 07/29/16 09:00 08/28/16 08:59 08/09/16 08:37 1 TAB Ferrous Gluconate (Ferrous Gluconate Tab) 324 mg TIDM PO 07/29/16 08:30 08/28/16 08:29 Future Hold 08/08/16 17:32 324 MG Enteral Nutritional Formula (Boost) 1 can TIDM PO 07/29/16 21:00 08/28/16 20:59 Future Hold 08/08/16 19:12 1 CAN Miscellaneous (Ocaliva) 5 mg Fr@0900 PO 07/30/16 09:00 08/29/16 08:59 08/07/16 14:20 5 MG Aspirin (Ecotrin Tab) 81 mg QAM PO 07/31/16 09:00 08/30/16 08:59 08/09/16 08:41 81 MG Oxycodone HCl (Roxicodone Immediate Rel Tab) 5 mg Q12H PRN PO 07/31/16 18:00 08/09/16 17:59 08/05/16 17:33 5 MG Lactulose (Chronulac Syrup) 15 gm TID PO 07/31/16 14:00 08/30/16 13:59 08/07/16 21:17 15 GM Rifaximin (Xifaxan Tab) 550 mg BID PO 07/31/16 21:00 08/30/16 20:59 08/09/16 08:36 550 MG Lidocaine/ Prilocaine (Emla 2.5% Crm) 1 ea DAILY@0800 EXT 08/06/16 08:00 09/05/16 07:59 08/08/16 08:31 1 EA Levalbuterol (Xopenex Hfa Inhaler) 2 puffs Q6 INH 08/07/16 12:00 09/06/16 11:59 08/09/16 05:37 2 PUFFS Ergocalciferol (Vitamin D Cap) 50,000 interunit Q7D@1100 PO 08/07/16 11:00 10/23/16 11:01 08/07/16 11:34 50,000 INTERUNIT Objective Vital Signs Date Time Temp Pulse Resp B/P (MAP) Pulse Ox O2 Delivery O2 Flow Rate FiO2 08/09/16 07:15 Room Air 08/09/16 06:56 36.9 65 19 108/67 (81) 94 Room Air 08/08/16 23:30 Room Air 08/08/16 22:57 36.6 65 24 103/68 (80) 94 Room Air 08/08/16 15:51 37.0 67 16 109/61 (77) 94 Room Air 08/08/16 15:20 Room Air Physical Exam General Appearance: + mild distress (c/o R hand pain (see HPI)) Eyes: normal inspection, PERRL, EOMI Neck: supple, no JVD, trachea midline Respiratory/Chest: + decreased breath sounds, + crackles (faint on bases) Cardiovascular: regular rate, rhythm, no gallop, no murmur Abdomen: normal bowel sounds, soft, + abnormal bowel sounds (hypoactive), + tenderness (epigastric ) Extremities: + swelling (generalized leg edema) Neurologic/Psych: alert, oriented x 3, + depressed affect Skin: normal color, no jaundice, no rash Laboratory Results Last 24 Hours Test 08/09/16 05:28 White Blood Count 10.74 K/uL Red Blood Count 2.81 M/uL Hemoglobin 8.8 g/dL Hematocrit 27.2 % Mean Corpuscular Volume 96.8 fL Mean Corpuscular Hemoglobin 31.3 pg Mean Corpuscular Hemoglobin Concent 32.4 g/dl RDW Standard Deviation 62.5 fL RDW Coefficient of Variation 18.1 % Platelet Count 170 K/uL Mean Platelet Volume 10.6 fL Sodium Level 141 mmol/L Potassium Level 2.8 mmol/L Chloride Level 108 mmol/L Carbon Dioxide Level 22 mmol/L Anion Gap 11.0 mmol/L Blood Urea Nitrogen 39 mg/dl Creatinine 0.99 mg/dl Est Creatinine Clear Calc Drug Dose 66.1 ml/min Estimated GFR () 72.8 Estimated GFR (Non- 62.8 BUN/Creatinine Ratio 39.8 Random Glucose 86 mg/dl Calcium Level 8.7 mg/dl Lipase 1123 U/L Assessment and Plan Pt is a 60 y/o female w hx of PBC cirrhosis (Hx of TIP). currently admitted for s/p R humeral and L radial fracture repair. GI following for possible hepatic encephalopathy, HRS. These are resolving, Cr now normal. She no longer is on Octreotide/Midodrine/Albumin. Main issue currently is increased Lipase over 1100, she also has epigastric pain but seem to be chronic. Most recent MELD 15. She was taken off Transplant List at [facility] recently due to low MELD. Though when transplant team made aware of pt's recent hospitalization, they are willing to reconsider her to be placed back on liver transplant list. - Continue current Ursodiol, Inderal - Continue current Lactulose, Xifaxan for goal 3-5 BMs daily - Obtain CT abd/pelvis w contrast to r/o pancreatitis. Agree w NPO for now. - Diuretic management per Nephrology, monitor Cr and electrolytes. Late entry: Patient was seen and examined with Estelita Noel on 08/09. Her note reflects our findings and plan.
--- NOTE | 2016-08-09 14:21 | DIAGNOSTIC IMAGING REPORT ---
CT ABD/PELVIS IV AND ORAL CONT CLINICAL HISTORY: Abdominal pain. Elevated lipase COMPARISON STUDY: None. TECHNIQUE: Following the IV administration of 91 mL of Optiray-320, CT scan of the abdomen and pelvis was performed from the lung bases to the proximal femurs. Images are reviewed in the axial, sagittal, and coronal planes. IV contrast was administered without complication. CT DOSE: 1096.91 mGy.cm FINDINGS: Lower chest: There are bibasal atelectatic changes. There is elevation the right hemidiaphragm. Liver: There is a portal vein to hepatic vein stent. There is a 1 cm hypodensity within left hepatic lobe, likely representing a cyst. The liver surface appears nodular suggesting underlying cirrhosis. Gallbladder: Mildly distended. No calculi visualized. Spleen: The spleen is enlarged measuring 13.1 cm Pancreas: No focal pancreatic masses are visualized. There are no peripancreatic fluid collections. A few small nonpathologically enlarged peripancreatic lymph nodes are visualized. Adrenal glands: Unremarkable. Kidneys: There is symmetric renal cortical enhancement. The kidneys are normal in size without hydronephrosis. Bowel: There are no transition zones indicate bowel obstruction. There are no findings to indicate acute diverticulitis. There are no findings to indicate acute appendicitis. Peritoneum: There is low volume ascites. No free intraperitoneal air is visualized. There is a small amount of fluid within a left inguinal hernia. Vasculature: The abdominal aorta is normal in course and caliber. Adenopathy: Aortocaval lymph nodes are the upper limits of normal in size. Pelvic viscera: There is air within the bladder, likely iatrogenic. Skeletal structures: There is a severe L3 compression fracture with mild retropulsion. There is a moderate T11 compression fracture. IMPRESSION: 1. No evidence of bowel obstruction. No evidence of free air 2. No evidence of acute appendicitis. No evidence of acute diverticulitis 3. Cirrhotic morphology of the liver. Mild splenomegaly. 4. Low volume ascites 5. Portal vein to hepatic vein stent which appears patent 6. T11 and L3 compression fractures. Electronically signed by: Yusef Sotelo M.D. 08/09/2016 2:20 PM Dictated Date/Time: 08/09/2016 2:10 PM
[2016-08-09 15:00] LABS: MAGNESIUM 1.7 mg/dl (1.8-2.4); POTASSIUM 3.8 mmol/L (3.5-5.1)
[2016-08-09 15:55] VITALS: BP 110/70; PULSE 62; TEMP 36.8; O2SAT 95
[2016-08-09 22:58] VITALS: BP 127/61; PULSE 66; TEMP 36.8; O2SAT 94
[2016-08-10] MEDS: LEValbuterol HFA 15GM INHALER INH SCH ×5 (00:45→23:28)
[2016-08-10] MEDS ORDERED: HYDROmorphone INJ 0.5 MG/0.5 ML SYR IV PRN (04:45)
[2016-08-10 06:30] LABS: MEAN CELL VOLUME 96.4 fL (80-100); MEAN CORPUSCULAR HEMOGLOBIN 32.1 pg (25-34); MEAN CORPUSCULAR HGB CONC 33.3 g/dl (32-36); MEAN PLATELET VOLUME 9.9 fL (7.4-10.4); PLATELET COUNT 178 K/uL (130-400); WHITE BLOOD COUNT 9.99 K/uL (4.8-10.8)
[2016-08-10 07:05] LABS: BUN/CREATININE RATIO 36.9 (10-20); CALCIUM 9.3 mg/dl (8.5-10.1); CREATININE 0.86 mg/dl (0.60-1.20); MAGNESIUM 1.7 mg/dl (1.8-2.4); POTASSIUM 3.8 mmol/L (3.5-5.1)
[2016-08-10 07:10] VITALS: BP 103/65; PULSE 69; TEMP 36.8; O2SAT 94
[2016-08-10] MEDS: LIDOCAINE/PRILOCAINE 2.5% EA CRM EXT SCH (07:15)
[2016-08-10] MEDS: TRAMADOL HCL 50 MG TAB PO PRN (07:24)
--- NOTE | 2016-08-10 09:25 | Orthopedic Progress Note ---
Orthopedic Progress Note Date of Service Aug 10, 2016. Subjective Post OP Day: 13 Reports: feeling well, pain controlled w PO medications, Denies: complaints, chest pain, SOB, nausea / vomiting, light headedness, calf pain Additional Notes: Patient states that she is doing ok. She has some discomfort in her right elbow. Objective calves soft nontender, N/V intact, capillary refill less than 2 sec., incision C /D/I, A&O x3, toes mobile Silverlon dressing was removed from the right shoulder. Incision was clean dry and intact. maricarmen were removed. steri strips were applied and sling was put back on. Left forearm splint was removed. incision was clean, dry and intact. sutures were removed. New splint was applied. She was neurovascularly intact after the dressing changes. She tolerated the dressing changes well. Date Time Temp Pulse Resp B/P (MAP) Pulse Ox O2 Delivery O2 Flow Rate FiO2 08/10/16 07:30 Room Air 08/10/16 07:10 36.8 69 16 103/65 (78) 94 Room Air 08/09/16 22:58 36.8 66 16 127/61 (83) 94 Room Air 08/09/16 19:30 Room Air 08/09/16 15:55 36.8 62 18 110/70 (83) 95 Room Air Laboratory Results 24 Hours: Test 08/10/16 05:56 Hematocrit 27.0 % Hemoglobin 9.0 g/dL Assessment & Plan Assessment: POD #13 S/P ORIF Left Distal Radius Fx ORIF Right Proximal Humerus Fx h/o primary biliary cirrhosis s/p TIPS with portal hypertension, chronic constrictive pericarditis treated with steroids, CKD, Anemia and recurrent pleural effusions Plan: 1. Medical Management - appreciate Medicine input. Spoke with Dr. Manriquez yesterday who agreed to have medicine take over the patient's care. At this time , ortho will sign off and she will be seen as an outpatient. 2. PT/OT 3. Discharge - [facility] is patient's first choice. She is approved for [facility] at this time but she doesn't want to go there. Medicine is getting the patient stabilized at this time. Orthopedically Stable; D/W Medical Service and will transfer inpatient care to Medical service 4. Nephrology input reviewed and appreciated. 5. F/U in clinic w/ Dr Fontenot in 12-15 days as an outpatient Inhouse Planning Pain Management: Morphine, Oxy IR DVT Prophylaxis: SCDs Discharge Planning Discharge Planning: uncertain ([facility] vs. [place] when medically stable and pending insurance approval of [facility].)
--- NOTE | 2016-08-10 09:35 | Gastroenterology Progress Note ---
Progress Note Date of Service: Aug 10, 2016 Subjective Pt evaluation today including: conversation w/ patient Feels ok, no abdominal pain, no nausea, states she is hungry Review of Systems CT last kami Following the IV administration of 91 mL of Optiray-320, CT scan of the abdomen and pelvis was performed from the lung bases to the proximal femurs. Images are reviewed in the axial, sagittal, and coronal planes. IV contrast was administered without complication. CT DOSE: 1096.91 mGy.cm FINDINGS: Lower chest: There are bibasal atelectatic changes. There is elevation the right hemidiaphragm. Liver: There is a portal vein to hepatic vein stent. There is a 1 cm hypodensity within left hepatic lobe, likely representing a cyst. The liver surface appears nodular suggesting underlying cirrhosis. Gallbladder: Mildly distended. No calculi visualized. Spleen: The spleen is enlarged measuring 13.1 cm Pancreas: No focal pancreatic masses are visualized. There are no peripancreatic fluid collections. A few small nonpathologically enlarged peripancreatic lymph nodes are visualized. Adrenal glands: Unremarkable. Kidneys: There is symmetric renal cortical enhancement. The kidneys are normal in size without hydronephrosis. Bowel: There are no transition zones indicate bowel obstruction. There are no findings to indicate acute diverticulitis. There are no findings to indicate acute appendicitis. Peritoneum: There is low volume ascites. No free intraperitoneal air is visualized. There is a small amount of fluid within a left inguinal hernia. Vasculature: The abdominal aorta is normal in course and caliber. Adenopathy: Aortocaval lymph nodes are the upper limits of normal in size. Pelvic viscera: There is air within the bladder, likely iatrogenic. Skeletal structures: There is a severe L3 compression fracture with mild retropulsion. There is a moderate T11 compression fracture. IMPRESSION: 1. No evidence of bowel obstruction. No evidence of free air 2. No evidence of acute appendicitis. No evidence of acute diverticulitis 3. Cirrhotic morphology of the liver. Mild splenomegaly. 4. Low volume ascites 5. Portal vein to hepatic vein stent which appears patent 6. T11 and L3 compression fractures. Medications Current Inpatient Medications Medications (Trade) Dose Ordered Sig/Michael Route Start Time Stop Time Status Last Admin Dose Admin Prednisone (PredniSONE TAB) 1 mg QAM PO 07/27/16 09:00 08/26/16 08:59 08/09/16 08:38 1 MG Gabapentin (Neurontin Cap) 300 mg TID PO 07/26/16 21:00 08/25/16 20:59 08/09/16 21:24 300 MG Ursodiol (Actigall Cap) 600 mg BIDM PO 07/26/16 19:02 08/25/16 19:01 08/09/16 18:09 600 MG Propranolol HCl (Inderal Tab) 10 mg QAM PO 07/27/16 09:00 08/26/16 08:59 08/09/16 08:38 10 MG Cetirizine HCl (zyrTEC TAB) 10 mg DAILY PRN PO 07/26/16 19:15 08/25/16 19:14 08/07/16 08:38 10 MG Guaifenesin (Mucinex Contr Rel Tab) 600 mg Q12 PO 07/26/16 21:00 08/25/16 20:59 08/09/16 21:24 600 MG Metoclopramide HCl (Reglan Inj) 10 mg Q6H PRN IV 07/28/16 21:30 08/27/16 21:29 Ondansetron HCl (Zofran Inj) 4 mg Q6H PRN IV 07/28/16 21:30 08/27/16 21:29 Pantoprazole Sodium (Protonix Tab) 40 mg QAM PO 07/29/16 09:00 08/28/16 08:59 08/09/16 08:39 40 MG Miscellaneous Medication (No Nsaids) 1 ea UD N/A 07/28/16 21:30 08/27/16 21:29 Naloxone HCl (Narcan Inj) 0.1 mg Q2M PRN IV 07/28/16 21:30 08/27/16 21:29 Multivitamins (Multivitamin Tab) 1 tab DAILY PO 07/29/16 09:00 08/28/16 08:59 08/09/16 08:37 1 TAB Ferrous Gluconate (Ferrous Gluconate Tab) 324 mg TIDM PO 07/29/16 08:30 08/28/16 08:29 Future Hold 08/08/16 17:32 324 MG Enteral Nutritional Formula (Boost) 1 can TIDM PO 07/29/16 21:00 08/28/16 20:59 Future Hold 08/08/16 19:12 1 CAN Miscellaneous (Ocaliva) 5 mg Fr@0900 PO 07/30/16 09:00 08/29/16 08:59 08/07/16 14:20 5 MG Aspirin (Ecotrin Tab) 81 mg QAM PO 07/31/16 09:00 08/30/16 08:59 08/09/16 08:41 81 MG Lactulose (Chronulac Syrup) 15 gm TID PO 07/31/16 14:00 08/30/16 13:59 08/07/16 21:17 15 GM Rifaximin (Xifaxan Tab) 550 mg BID PO 07/31/16 21:00 08/30/16 20:59 08/09/16 21:24 550 MG Lidocaine/ Prilocaine (Emla 2.5% Crm) 1 ea DAILY@0800 EXT 08/06/16 08:00 09/05/16 07:59 08/08/16 08:31 1 EA Levalbuterol (Xopenex Hfa Inhaler) 2 puffs Q6 INH 08/07/16 12:00 09/06/16 11:59 08/10/16 06:07 2 PUFFS Ergocalciferol (Vitamin D Cap) 50,000 interunit Q7D@1100 PO 08/07/16 11:00 10/23/16 11:01 08/07/16 11:34 50,000 INTERUNIT Tramadol HCl (Ultram Tab) not relieved by tylenol @ Q6H PRN PO 08/10/16 04:45 09/09/16 04:44 08/10/16 07:24 50 MG Hydromorphone HCl (Dilaudid Inj) 0.5 mg Q3H PRN IV 08/10/16 04:45 08/24/16 04:44 Objective Vital Signs Date Time Temp Pulse Resp B/P (MAP) Pulse Ox O2 Delivery O2 Flow Rate FiO2 08/10/16 07:30 Room Air 08/10/16 07:10 36.8 69 16 103/65 (78) 94 Room Air 08/09/16 22:58 36.8 66 16 127/61 (83) 94 Room Air 08/09/16 19:30 Room Air 08/09/16 15:55 36.8 62 18 110/70 (83) 95 Room Air Physical Exam General Appearance: WD/WN, no apparent distress Eyes: normal inspection ENT: normal ENT inspection, + pertinent finding (yellow sclera) Neck: supple Respiratory/Chest: chest non-tender Cardiovascular: regular rate, rhythm Abdomen: normal bowel sounds, non tender Extremities: normal range of motion Neurologic/Psych: media services coordinator II-XII nml as tested Laboratory Results Last 24 Hours Test 08/09/16 14:25 08/10/16 05:56 Sodium Level 139 mmol/L 142 mmol/L Potassium Level 3.8 mmol/L 3.8 mmol/L Chloride Level 108 mmol/L 111 mmol/L Carbon Dioxide Level 22 mmol/L 22 mmol/L Anion Gap 9.0 mmol/L 9.0 mmol/L Blood Urea Nitrogen 37 mg/dl 32 mg/dl Creatinine 1.00 mg/dl 0.86 mg/dl Est Creatinine Clear Calc Drug Dose 65.4 ml/min 76.1 ml/min Estimated GFR () 71.9 86.3 Estimated GFR (Non- 62.1 74.5 BUN/Creatinine Ratio 37.0 36.9 Random Glucose 84 mg/dl 68 mg/dl Calcium Level 9.0 mg/dl 9.3 mg/dl Magnesium Level 1.7 mg/dl 1.7 mg/dl White Blood Count 9.99 K/uL Red Blood Count 2.80 M/uL Hemoglobin 9.0 g/dL Hematocrit 27.0 % Mean Corpuscular Volume 96.4 fL Mean Corpuscular Hemoglobin 32.1 pg Mean Corpuscular Hemoglobin Concent 33.3 g/dl RDW Standard Deviation 64.5 fL RDW Coefficient of Variation 18.6 % Platelet Count 178 K/uL Mean Platelet Volume 9.9 fL Lipase 1104 U/L Assessment and Plan Pt is a 60 y/o female w hx of PBC cirrhosis (Hx of TIPS). currently admitted for s/p R humeral and L radial fracture repair. GI following for possible hepatic encephalopathy, HRS. These are resolving, Cr now normal. She no longer is on Octreotide/Midodrine/Albumin. Main issue currently is increased Lipase over 1100, she had epigastric pain but seem to be chronic. Most recent MELD 15. She was taken off active Transplant List at [facility] recently due to low MELD. Though when transplant team made aware of pt's recent hospitalization, they are willing to reconsider her to be placed back on liver transplant list. - Continue current Ursodiol, Inderal - Continue current Lactulose, Xifaxan for goal 3-5 BMs daily - Obtain CT abd/pelvis w contrast to r/o pancreatitis did not show evidence of acute changes, Can start clears and follow course, advance to low fat diet if tolerating - Diuretic management per Nephrology, monitor Cr and electrolytes.
[2016-08-10] MEDS: GABAPENTIN 300 MG CAP PO SCH ×3 (10:11→20:30)
[2016-08-10] MEDS: GUAIFENESIN 600 MG TABCR PO SCH ×2 (10:11→20:30)
[2016-08-10] MEDS: RIFAXIMIN TAB 550 MG TAB PO SCH ×2 (10:12→20:30)
[2016-08-10] MEDS: URSODIOL 300 MG CAP PO SCH ×2 (10:12→18:07)
[2016-08-10] MEDS: LACTULOSE SYRUP 10 GM/15 ML BTL 473 ML PO SCH ×3 (10:12→20:30)
[2016-08-10] MEDS: ASPIRIN 81 MG ECTAB PO SCH (10:12)
[2016-08-10] MEDS: PANTOprazole SOD 40 MG TAB PO SCH (10:13)
[2016-08-10] MEDS: PROPRANOLOL HCL 10 MG TAB PO SCH (10:13)
[2016-08-10] MEDS: MULTIVITAMIN TAB PO SCH (10:14)
--- NOTE | 2016-08-10 13:05 | Progress Note ---
Internal Med Progress Note Date of Service: Aug 10, 2016. Provider Documentation: SUBJECTIVE: Patient is doing well. Does not c/o any epigastric pain worsening from baseline, no nausea, vomiting, fever, chills Pain is well controlled Demanding food. OBJECTIVE: Vital Signs-as noted below Exam: GEN: AAOX3 , no distress CARDIO: reg rate, S1/2 heard LUNGS: CTA bilaterally, no crackles, rales or wheezes ABD: soft, mild chronic tenderness, BS present EXTREMITY: S/P surgery b/l; B/L pedal edema SKIN: Echymosis on abdomen Lab data as noted below. ASSESSMENT & PLAN: RIGHT HUMERAL FRACTURE/LEFT RADIAL FRACTURE Secondary to mechanical fall -S/P ORIF on 07/28/16. Pain controlled -Ortho signed off. Follow up outpatient ELEVATED LIPASE Lipase up to 1100, however, clinically chronic epigastric pain with no worsening of her pain, no nausea/vomiting, CT scan no signs of acute pancreatitis. Patient is very hungry and demanding food. -Hx of Primary biliary cirrhosis -Advance diet as tolerated per GI VOLUME OVERLOAD Edema in b/l legs- difficult to mobilize fluid, so started on IV lasix yesterday , but held due to elevated lipase, possible pancreatitis -IV lasix - okay to restart today at 80 mg daily HEPATORENAL SYNDROME Resolved -Rxed with octreotide, midodrine, albumin -Nephrology inputs appreciated HX OF PRIMARY BILIARY CIRRHOSIS -On immunomodulator therapy and is s/p TIPA -Ocaliva once weekly per home regimen. CHRONIC CONSTRICTIVE PERICARDITIS -Stable on chronic steroid therapy ANEMIA-Stable secondary to Chronic disease DVT proph: Lovenox-held per patient refusal due to abdominal ecchymosis FULL CODE DISPOSITION Unclear if she wants to go to rehab vs home. Vital Signs: Date Time Temp Pulse Resp B/P (MAP) Pulse Ox O2 Delivery O2 Flow Rate FiO2 08/10/16 07:30 Room Air 08/10/16 07:10 36.8 69 16 103/65 (78) 94 Room Air 08/09/16 22:58 36.8 66 16 127/61 (83) 94 Room Air 08/09/16 19:30 Room Air 08/09/16 15:55 36.8 62 18 110/70 (83) 95 Room Air Lab Results: Results Past 24 Hours Test 08/09/16 14:25 08/10/16 05:56 Range/Units Sodium Level 139 142 136-145 mmol/L Potassium Level 3.8 3.8 3.5-5.1 mmol/L Chloride Level 108 111 98-107 mmol/L Carbon Dioxide Level 22 22 21-32 mmol/L Anion Gap 9.0 9.0 3-11 mmol/L Blood Urea Nitrogen 37 32 7-18 mg/dl Creatinine 1.00 0.86 0.60-1.20 mg/dl Est Creatinine Clear Calc Drug Dose 65.4 76.1 ml/min Estimated GFR () 71.9 86.3 Estimated GFR (Non- 62.1 74.5 BUN/Creatinine Ratio 37.0 36.9 10-20 Random Glucose 84 68 70-99 mg/dl Calcium Level 9.0 9.3 8.5-10.1 mg/dl Magnesium Level 1.7 1.7 1.8-2.4 mg/dl White Blood Count 9.99 4.8-10.8 K/uL Red Blood Count 2.80 4.2-5.4 M/uL Hemoglobin 9.0 12.0-16.0 g/dL Hematocrit 27.0 37-47 % Mean Corpuscular Volume 96.4 80-100 fL Mean Corpuscular Hemoglobin 32.1 25-34 pg Mean Corpuscular Hemoglobin Concent 33.3 32-36 g/dl RDW Standard Deviation 64.5 36.4-46.3 fL RDW Coefficient of Variation 18.6 11.5-14.5 % Platelet Count 178 130-400 K/uL Mean Platelet Volume 9.9 7.4-10.4 fL Lipase 1104 73-393 U/L
--- NOTE | 2016-08-10 13:37 | Nephrology Progress Note ---
Nephrology Progress Note Date of Service: Aug 10, 2016. Subjective 60 yo female with PBC with ileana from HRS which resolved. pt with elevated lipase however ct scan with contrast was negative for pancreatitis. tolerating clear liquids and advancing as tolerated. pts edema also markedly improved compared to yesterday morning. pt feels much better. family visiting. pt on side of bed looking at pictures of grandchildren. no complaints. pt said she urinated a lot last night. Objective Date Time Temp Pulse Resp B/P (MAP) Pulse Ox O2 Delivery O2 Flow Rate FiO2 08/10/16 07:30 Room Air 08/10/16 07:10 36.8 69 16 103/65 (78) 94 Room Air 08/09/16 22:58 36.8 66 16 127/61 (83) 94 Room Air 08/09/16 19:30 Room Air 08/09/16 15:55 36.8 62 18 110/70 (83) 95 Room Air Physical Exam: General-aaox3, +jaundice Eyes-+scleral icterus ENT-mmm Neck-supple Lungs-slight basilar rales Heart-rrr Abdomen-bs+, soft, nontender Extremities-+1 edema in legs, pitting, arm in cast and other arm in sling Neuro-nonfocal Current Inpatient Medications Medications (Trade) Dose Ordered Sig/Michael Route Start Time Stop Time Status Last Admin Dose Admin Prednisone (PredniSONE TAB) 1 mg QAM PO 07/27/16 09:00 08/26/16 08:59 08/10/16 10:14 1 MG Gabapentin (Neurontin Cap) 300 mg TID PO 07/26/16 21:00 08/25/16 20:59 08/10/16 10:11 300 MG Ursodiol (Actigall Cap) 600 mg BIDM PO 07/26/16 19:02 08/25/16 19:01 08/10/16 10:12 600 MG Propranolol HCl (Inderal Tab) 10 mg QAM PO 07/27/16 09:00 08/26/16 08:59 08/10/16 10:13 10 MG Cetirizine HCl (zyrTEC TAB) 10 mg DAILY PRN PO 07/26/16 19:15 08/25/16 19:14 08/07/16 08:38 10 MG Guaifenesin (Mucinex Contr Rel Tab) 600 mg Q12 PO 07/26/16 21:00 08/25/16 20:59 08/10/16 10:11 600 MG Metoclopramide HCl (Reglan Inj) 10 mg Q6H PRN IV 07/28/16 21:30 08/27/16 21:29 Ondansetron HCl (Zofran Inj) 4 mg Q6H PRN IV 07/28/16 21:30 08/27/16 21:29 Pantoprazole Sodium (Protonix Tab) 40 mg QAM PO 07/29/16 09:00 08/28/16 08:59 08/10/16 10:13 40 MG Miscellaneous Medication (No Nsaids) 1 ea UD N/A 07/28/16 21:30 08/27/16 21:29 Naloxone HCl (Narcan Inj) 0.1 mg Q2M PRN IV 07/28/16 21:30 08/27/16 21:29 Multivitamins (Multivitamin Tab) 1 tab DAILY PO 07/29/16 09:00 08/28/16 08:59 08/10/16 10:14 1 TAB Ferrous Gluconate (Ferrous Gluconate Tab) 324 mg TIDM PO 07/29/16 08:30 08/28/16 08:29 Future Hold 08/08/16 17:32 324 MG Enteral Nutritional Formula (Boost) 1 can TIDM PO 07/29/16 21:00 08/28/16 20:59 Future Hold 08/08/16 19:12 1 CAN Miscellaneous (Ocaliva) 5 mg Fr@0900 PO 07/30/16 09:00 08/29/16 08:59 08/07/16 14:20 5 MG Aspirin (Ecotrin Tab) 81 mg QAM PO 07/31/16 09:00 08/30/16 08:59 08/10/16 10:12 81 MG Lactulose (Chronulac Syrup) 15 gm TID PO 07/31/16 14:00 08/30/16 13:59 08/07/16 21:17 15 GM Rifaximin (Xifaxan Tab) 550 mg BID PO 07/31/16 21:00 08/30/16 20:59 08/10/16 10:12 550 MG Lidocaine/ Prilocaine (Emla 2.5% Crm) 1 ea DAILY@0800 EXT 08/06/16 08:00 09/05/16 07:59 08/08/16 08:31 1 EA Levalbuterol (Xopenex Hfa Inhaler) 2 puffs Q6 INH 08/07/16 12:00 09/06/16 11:59 08/10/16 06:07 2 PUFFS Ergocalciferol (Vitamin D Cap) 50,000 interunit Q7D@1100 PO 08/07/16 11:00 10/23/16 11:01 08/07/16 11:34 50,000 INTERUNIT Tramadol HCl (Ultram Tab) not relieved by tylenol @ Q6H PRN PO 08/10/16 04:45 09/09/16 04:44 08/10/16 07:24 50 MG Hydromorphone HCl (Dilaudid Inj) 0.5 mg Q3H PRN IV 08/10/16 04:45 08/24/16 04:44 Furosemide 80 mg/ Syringe 8 ml @ 4 mls/min DAILY IV 08/11/16 09:00 09/10/16 08:59 Last 24 Hours Test 08/09/16 14:25 08/10/16 05:56 Sodium Level 139 mmol/L 142 mmol/L Potassium Level 3.8 mmol/L 3.8 mmol/L Chloride Level 108 mmol/L 111 mmol/L Carbon Dioxide Level 22 mmol/L 22 mmol/L Anion Gap 9.0 mmol/L 9.0 mmol/L Blood Urea Nitrogen 37 mg/dl 32 mg/dl Creatinine 1.00 mg/dl 0.86 mg/dl Est Creatinine Clear Calc Drug Dose 65.4 ml/min 76.1 ml/min Estimated GFR () 71.9 86.3 Estimated GFR (Non- 62.1 74.5 BUN/Creatinine Ratio 37.0 36.9 Random Glucose 84 mg/dl 68 mg/dl Calcium Level 9.0 mg/dl 9.3 mg/dl Magnesium Level 1.7 mg/dl 1.7 mg/dl White Blood Count 9.99 K/uL Red Blood Count 2.80 M/uL Hemoglobin 9.0 g/dL Hematocrit 27.0 % Mean Corpuscular Volume 96.4 fL Mean Corpuscular Hemoglobin 32.1 pg Mean Corpuscular Hemoglobin Concent 33.3 g/dl RDW Standard Deviation 64.5 fL RDW Coefficient of Variation 18.6 % Platelet Count 178 K/uL Mean Platelet Volume 9.9 fL Lipase 1104 U/L Assessment & Plan Volume overload-pts edema much improved. on iv lasix and would send out on her regular outpt regimen of lasix and spironolactone once medically cleared. hypokalemia-k improved after supplementing k with iv and oral. did not tolerate the iv k and given additional oral potassium yesterday. k 3.8 today. ileana-hepatorenal syndrome resolved and off the albumin/midodrine and octreotide.
[2016-08-10 15:30] VITALS: BP 103/60; PULSE 68; TEMP 36.7; O2SAT 94
[2016-08-10 23:10] VITALS: BP 97/63; PULSE 64; TEMP 36.8; O2SAT 94
[2016-08-11] MEDS: LEValbuterol HFA 15GM INHALER INH SCH ×4 (05:29→23:36)
[2016-08-11 06:13] LABS: HEMATOCRIT 28.7 % (37-47); MEAN CORPUSCULAR HEMOGLOBIN 31.1 pg (25-34); MEAN CORPUSCULAR HGB CONC 31.7 g/dl (32-36); MEAN PLATELET VOLUME 10.6 fL (7.4-10.4); PLATELET COUNT 199 K/uL (130-400); RED BLOOD COUNT 2.93 M/uL (4.2-5.4); WHITE BLOOD COUNT 9.74 K/uL (4.8-10.8)
[2016-08-11 06:45] LABS: CALCIUM 8.8 mg/dl (8.5-10.1); CREATININE 0.97 mg/dl (0.60-1.20); POTASSIUM 3.5 mmol/L (3.5-5.1)
[2016-08-11 07:08] VITALS: BP 99/68; PULSE 73; TEMP 37.1; O2SAT 93
[2016-08-11] MEDS: LIDOCAINE/PRILOCAINE 2.5% EA CRM EXT SCH (08:56)
[2016-08-11 08:57] VITALS: BP 96/51
[2016-08-11] MEDS: LACTULOSE SYRUP 10 GM/15 ML BTL 473 ML PO SCH ×3 (09:00→21:00)
[2016-08-11] MEDS ORDERED: FUROSEMIDE INJ 80 MG in SYRINGE 0 ML IV SCH (09:00)
[2016-08-11] MEDS: PROPRANOLOL HCL 10 MG TAB PO SCH (09:00)
[2016-08-11] MEDS: MULTIVITAMIN TAB PO SCH (09:05)
[2016-08-11] MEDS: PANTOprazole SOD 40 MG TAB PO SCH (09:05)
[2016-08-11] MEDS: ASPIRIN 81 MG ECTAB PO SCH (09:05)
[2016-08-11] MEDS: GABAPENTIN 300 MG CAP PO SCH ×3 (09:05→21:06)
[2016-08-11] MEDS: URSODIOL 300 MG CAP PO SCH ×2 (09:05→17:53)
[2016-08-11] MEDS: GUAIFENESIN 600 MG TABCR PO SCH ×2 (09:06→21:06)
[2016-08-11] MEDS: RIFAXIMIN TAB 550 MG TAB PO SCH ×2 (09:06→21:06)
--- NOTE | 2016-08-11 10:06 | Progress Note ---
Internal Med Progress Note Date of Service: Aug 11, 2016. Provider Documentation: SUBJECTIVE: Patient is doing well but upset that her wants her to go to SNF/Rehab. Does not c/o any epigastric pain worsening from baseline, no nausea, vomiting, fever, chills Pain is well controlled Tolerating diet well. OBJECTIVE: Vital Signs-as noted below Exam: GEN: AAOX3 , no distress CARDIO: reg rate, S1/2 heard LUNGS: CTA bilaterally, no crackles, rales or wheezes ABD: soft, mild chronic tenderness, BS present EXTREMITY: S/P surgery b/l; B/L pedal edema SKIN: Echymosis on abdomen Lab data as noted below. ASSESSMENT & PLAN: RIGHT HUMERAL FRACTURE/LEFT RADIAL FRACTURE Secondary to mechanical fall -S/P ORIF on 07/28/16. Pain controlled -Ortho signed off. Follow up outpatient ELEVATED LIPASE Lipase up to 1100, however, clinically chronic epigastric pain with no worsening of her pain, no nausea/vomiting, CT scan no signs of acute pancreatitis. Tolerating low fat diet well. -Hx of Primary biliary cirrhosis -GI inputs appreciated VOLUME OVERLOAD- Improved Edema in b/l legs- difficult to mobilize fluid, so started on IV lasix yesterday , but held due to elevated lipase, possible pancreatitis -Per nephrology, okay to change to PO lasix/Aldactone as per home dosage HEPATORENAL SYNDROME- Resolved -Rxed with octreotide, midodrine, albumin -Nephrology inputs appreciated HX OF PRIMARY BILIARY CIRRHOSIS -On immunomodulator therapy and is s/p TIPA -Ocaliva once weekly per home regimen. CHRONIC CONSTRICTIVE PERICARDITIS -Stable on chronic steroid therapy ANEMIA-Stable secondary to Chronic disease DVT proph: Lovenox-held per patient refusal due to abdominal ecchymosis FULL CODE DISPOSITION OKAY to discharge from medical point of view Awaiting rehab placement. Discussed with SS about options. Vital Signs: Date Time Temp Pulse Resp B/P (MAP) Pulse Ox O2 Delivery O2 Flow Rate FiO2 08/11/16 08:57 96/51 (66) 08/11/16 07:08 37.1 73 18 99/68 (78) 93 Room Air 08/10/16 23:15 Room Air 08/10/16 23:10 36.8 64 18 97/63 (74) 94 Room Air 08/10/16 20:00 Room Air 08/10/16 15:40 Room Air 08/10/16 15:30 36.7 68 18 103/60 (79) 94 Room Air Lab Results: Results Past 24 Hours Test 08/11/16 05:47 Range/Units White Blood Count 9.74 4.8-10.8 K/uL Red Blood Count 2.93 4.2-5.4 M/uL Hemoglobin 9.1 12.0-16.0 g/dL Hematocrit 28.7 37-47 % Mean Corpuscular Volume 98.0 80-100 fL Mean Corpuscular Hemoglobin 31.1 25-34 pg Mean Corpuscular Hemoglobin Concent 31.7 32-36 g/dl RDW Standard Deviation 65.3 36.4-46.3 fL RDW Coefficient of Variation 18.4 11.5-14.5 % Platelet Count 199 130-400 K/uL Mean Platelet Volume 10.6 7.4-10.4 fL Sodium Level 140 136-145 mmol/L Potassium Level 3.5 3.5-5.1 mmol/L Chloride Level 110 98-107 mmol/L Carbon Dioxide Level 22 21-32 mmol/L Anion Gap 8.0 3-11 mmol/L Blood Urea Nitrogen 28 7-18 mg/dl Creatinine 0.97 0.60-1.20 mg/dl Est Creatinine Clear Calc Drug Dose 67.5 ml/min Estimated GFR () 74.6 Estimated GFR (Non- 64.4 BUN/Creatinine Ratio 29.0 10-20 Random Glucose 90 70-99 mg/dl Calcium Level 8.8 8.5-10.1 mg/dl
[2016-08-11] MEDS: FUROSEMIDE 40 MG TAB PO SCH (10:50)
--- NOTE | 2016-08-11 12:03 | Gastroenterology Progress Note ---
Progress Note Date of Service: Aug 11, 2016 Subjective Pt evaluation today including: conversation w/ patient, conversation w/ family , physical exam, chart review, review of studies, review of inpatient medication list Pt awake, alert, oriented x 3, cleaning herself this AM. Denies any more abd pain, n/v, tolerating regular diet well. Review of Systems Constitutional: No fever, No chills Respiratory: No cough, No shortness of breath Cardiac: No chest pain, No edema Abdomen: No pain, No nausea, No vomiting Skin: + jaundice, No rash, No itch Medications Current Inpatient Medications Medications (Trade) Dose Ordered Sig/Michael Route Start Time Stop Time Status Last Admin Dose Admin Prednisone (PredniSONE TAB) 1 mg QAM PO 07/27/16 09:00 08/26/16 08:59 08/11/16 09:05 1 MG Gabapentin (Neurontin Cap) 300 mg TID PO 07/26/16 21:00 08/25/16 20:59 08/11/16 09:05 300 MG Ursodiol (Actigall Cap) 600 mg BIDM PO 07/26/16 19:02 08/25/16 19:01 08/11/16 09:05 600 MG Propranolol HCl (Inderal Tab) 10 mg QAM PO 07/27/16 09:00 08/26/16 08:59 08/10/16 10:13 10 MG Cetirizine HCl (zyrTEC TAB) 10 mg DAILY PRN PO 07/26/16 19:15 08/25/16 19:14 08/07/16 08:38 10 MG Guaifenesin (Mucinex Contr Rel Tab) 600 mg Q12 PO 07/26/16 21:00 08/25/16 20:59 08/11/16 09:06 600 MG Metoclopramide HCl (Reglan Inj) 10 mg Q6H PRN IV 07/28/16 21:30 08/27/16 21:29 Ondansetron HCl (Zofran Inj) 4 mg Q6H PRN IV 07/28/16 21:30 08/27/16 21:29 Pantoprazole Sodium (Protonix Tab) 40 mg QAM PO 07/29/16 09:00 08/28/16 08:59 08/11/16 09:05 40 MG Miscellaneous Medication (No Nsaids) 1 ea UD N/A 07/28/16 21:30 08/27/16 21:29 Naloxone HCl (Narcan Inj) 0.1 mg Q2M PRN IV 07/28/16 21:30 08/27/16 21:29 Multivitamins (Multivitamin Tab) 1 tab DAILY PO 07/29/16 09:00 08/28/16 08:59 08/11/16 09:05 1 TAB Ferrous Gluconate (Ferrous Gluconate Tab) 324 mg TIDM PO 07/29/16 08:30 08/28/16 08:29 Future Hold 08/08/16 17:32 324 MG Enteral Nutritional Formula (Boost) 1 can TIDM PO 07/29/16 21:00 08/28/16 20:59 Future Hold 08/08/16 19:12 1 CAN Miscellaneous (Ocaliva) 5 mg Fr@0900 PO 07/30/16 09:00 08/29/16 08:59 08/07/16 14:20 5 MG Aspirin (Ecotrin Tab) 81 mg QAM PO 07/31/16 09:00 08/30/16 08:59 08/11/16 09:05 81 MG Lactulose (Chronulac Syrup) 15 gm TID PO 07/31/16 14:00 08/30/16 13:59 08/07/16 21:17 15 GM Rifaximin (Xifaxan Tab) 550 mg BID PO 07/31/16 21:00 08/30/16 20:59 08/11/16 09:06 550 MG Lidocaine/ Prilocaine (Emla 2.5% Crm) 1 ea DAILY@0800 EXT 08/06/16 08:00 09/05/16 07:59 08/08/16 08:31 1 EA Levalbuterol (Xopenex Hfa Inhaler) 2 puffs Q6 INH 08/07/16 12:00 09/06/16 11:59 08/11/16 05:29 2 PUFFS Ergocalciferol (Vitamin D Cap) 50,000 interunit Q7D@1100 PO 08/07/16 11:00 10/23/16 11:01 08/07/16 11:34 50,000 INTERUNIT Tramadol HCl (Ultram Tab) not relieved by tylenol @ Q6H PRN PO 08/10/16 04:45 8/3/17 04:44 08/10/16 07:24 50 MG Furosemide (Lasix Tab) 100 mg DAILY PO 08/11/16 09:15 09/10/16 09:14 08/11/16 10:50 100 MG Spironolactone (Aldactone Tab) 75 mg DAILY PO 08/11/16 11:00 09/10/16 10:59 Objective Vital Signs Date Time Temp Pulse Resp B/P (MAP) Pulse Ox O2 Delivery O2 Flow Rate FiO2 08/11/16 08:57 96/51 (66) 08/11/16 07:30 Room Air 08/11/16 07:08 37.1 73 18 99/68 (78) 93 Room Air 08/10/16 23:15 Room Air 08/10/16 23:10 36.8 64 18 97/63 (74) 94 Room Air 08/10/16 20:00 Room Air 08/10/16 15:40 Room Air 08/10/16 15:30 36.7 68 18 103/60 (74) 94 Room Air Physical Exam General Appearance: WD/WN, no apparent distress, + obese Eyes: PERRL, EOMI, + pertinent finding (mild jaundice on sclera ) Neck: supple, no JVD, trachea midline Respiratory/Chest: normal breath sounds, no respiratory distress, no accessory muscle use Cardiovascular: regular rate, rhythm, no gallop, no murmur Abdomen: normal bowel sounds, non tender, soft Extremities: + swelling Neurologic/Psych: alert, normal mood/affect, oriented x 3 Skin: warm/dry, no rash Laboratory Results Last 24 Hours Test 08/11/16 05:47 White Blood Count 9.74 K/uL Red Blood Count 2.93 M/uL Hemoglobin 9.1 g/dL Hematocrit 28.7 % Mean Corpuscular Volume 98.0 fL Mean Corpuscular Hemoglobin 31.1 pg Mean Corpuscular Hemoglobin Concent 31.7 g/dl RDW Standard Deviation 65.3 fL RDW Coefficient of Variation 18.4 % Platelet Count 199 K/uL Mean Platelet Volume 10.6 fL Sodium Level 140 mmol/L Potassium Level 3.5 mmol/L Chloride Level 110 mmol/L Carbon Dioxide Level 22 mmol/L Anion Gap 8.0 mmol/L Blood Urea Nitrogen 28 mg/dl Creatinine 0.97 mg/dl Est Creatinine Clear Calc Drug Dose 67.5 ml/min Estimated GFR () 74.6 Estimated GFR (Non- 64.4 BUN/Creatinine Ratio 29.0 Random Glucose 90 mg/dl Calcium Level 8.8 mg/dl Assessment and Plan Pt is a 60 y/o female w hx of PBC cirrhosis (Hx of TIP). currently admitted for s/p R humeral and L radial fracture repair. GI following for possible hepatic encephalopathy, HRS. These are resolving, Cr now normal. She no longer is on Octreotide/Midodrine/Albumin. Main issue currently is increased Lipase over 1100, she also has epigastric pain but seem to be chronic which now has resolved. She is also now AAOx3. Most recent MELD 15. [place] [facility] [place]. Though when transplant team made aware of pt's recent hospitalization, they are willing to reconsider her to be placed back on liver transplant list. - Continue current Ursodiol, Inderal - Continue current Lactulose, Xifaxan for goal 3-5 BMs daily - Obtain CT abd/pelvis w contrast to r/o pancreatitis.-> negative for pancreatitis. - Diuretic management per Nephrology, monitor Cr and electrolytes. - No new GI plans, will sign off. Late entry: Patient was seen and examined on 08/11 with Estelita Noel. Her note reflects our findings and plan.
[2016-08-11] MEDS: SPIRONOLACTONE 25 MG TAB PO SCH (12:25)
[2016-08-11 14:48] VITALS: BP 117/61; PULSE 71; TEMP 36.8; O2SAT 95
[2016-08-11 23:00] VITALS: BP 103/65; PULSE 71; TEMP 37; O2SAT 96
[2016-08-12] MEDS: LEValbuterol HFA 15GM INHALER INH SCH ×4 (05:30→23:35)
[2016-08-12 06:57] VITALS: BP 112/72; PULSE 78; TEMP 36.9; O2SAT 93
[2016-08-12] MEDS: TRAMADOL HCL 50 MG TAB PO PRN ×2 (07:57→20:04)
[2016-08-12] MEDS: LIDOCAINE/PRILOCAINE 2.5% EA CRM EXT SCH (07:57)
--- NOTE | 2016-08-12 08:54 | Progress Note ---
Internal Med Progress Note Date of Service: Aug 12, 2016. Provider Documentation: SUBJECTIVE: Patient is doing well but upset that her wants her to go to SNF/Rehab. Does not c/o any epigastric pain worsening from baseline, no nausea, vomiting, fever, chills Pain is well controlled Tolerating diet well. OBJECTIVE: Vital Signs-as noted below Exam: GEN: AAOX3 , no distress CARDIO: reg rate, S1/2 heard LUNGS: CTA bilaterally, no crackles, rales or wheezes ABD: soft, mild chronic tenderness, BS present EXTREMITY: S/P surgery b/l; B/L pedal edema SKIN: Echymosis on abdomen Lab data as noted below. ASSESSMENT & PLAN: RIGHT HUMERAL FRACTURE/LEFT RADIAL FRACTURE Secondary to mechanical fall -S/P ORIF on 07/28/16. Pain controlled -Ortho signed off. Follow up outpatient ELEVATED LIPASE Lipase up to 1100, however, clinically chronic epigastric pain with no worsening of her pain, no nausea/vomiting, CT scan no signs of acute pancreatitis. Tolerating low fat diet well. -Hx of Primary biliary cirrhosis -GI inputs appreciated. Follow up outpatient VOLUME OVERLOAD- Improved Edema in b/l legs- difficult to mobilize fluid, so started on IV lasix yesterday , but held due to elevated lipase, possible pancreatitis -Per nephrology, changed to PO lasix/Aldactone as per home dosage HEPATORENAL SYNDROME - Resolved -Rxed with octreotide, midodrine, albumin -Nephrology inputs appreciated HX OF PRIMARY BILIARY CIRRHOSIS -On immunomodulator therapy and is s/p TIPA -Ocaliva once weekly per home regimen. CHRONIC CONSTRICTIVE PERICARDITIS -Stable on chronic steroid therapy ANEMIA-Stable secondary to Chronic disease DVT proph: Lovenox-held per patient refusal due to abdominal ecchymosis FULL CODE DISPOSITION OKAY to discharge from medical point of view Awaiting rehab placement. Discussed with SS about options. Vital Signs: Date Time Temp Pulse Resp B/P (MAP) Pulse Ox O2 Delivery O2 Flow Rate FiO2 08/12/16 06:57 36.9 78 15 112/72 (85) 93 Room Air 08/12/16 00:00 Room Air 08/11/16 23:00 37.0 71 18 103/65 (78) 96 Room Air 08/11/16 15:30 Room Air 08/11/16 14:48 36.8 71 18 117/61 (79) 95 Room Air 08/11/16 08:57 96/51 (66)
[2016-08-12] MEDS: LACTULOSE SYRUP 10 GM/15 ML BTL 473 ML PO SCH ×3 (09:00→20:55)
[2016-08-12 09:35] VITALS: BP 105/65; PULSE 76
[2016-08-12] MEDS: ASPIRIN 81 MG ECTAB PO SCH (09:36)
[2016-08-12] MEDS: RIFAXIMIN TAB 550 MG TAB PO SCH ×2 (09:37→20:56)
[2016-08-12] MEDS: PANTOprazole SOD 40 MG TAB PO SCH (09:38)
[2016-08-12] MEDS: URSODIOL 300 MG CAP PO SCH ×2 (09:39→18:22)
[2016-08-12] MEDS: PROPRANOLOL HCL 10 MG TAB PO SCH (09:40)
[2016-08-12] MEDS: FUROSEMIDE 40 MG TAB PO SCH (09:42)
[2016-08-12] MEDS: MULTIVITAMIN TAB PO SCH (09:42)
[2016-08-12] MEDS: GABAPENTIN 300 MG CAP PO SCH ×3 (09:44→20:56)
[2016-08-12] MEDS: SPIRONOLACTONE 25 MG TAB PO SCH (09:44)
[2016-08-12] MEDS: GUAIFENESIN 600 MG TABCR PO SCH ×2 (09:44→20:56)
[2016-08-12 15:12] VITALS: BP 122/72; PULSE 68; TEMP 36.9; O2SAT 92
[2016-08-12 22:53] VITALS: BP 137/77; PULSE 64; TEMP 36.8; O2SAT 94
[2016-08-13] MEDS: LEValbuterol HFA 15GM INHALER INH SCH (05:39)
[2016-08-13] MEDS: LIDOCAINE/PRILOCAINE 2.5% EA CRM EXT SCH (07:42)
[2016-08-13] MEDS: GABAPENTIN 300 MG CAP PO SCH (07:46)
[2016-08-13] MEDS: ASPIRIN 81 MG ECTAB PO SCH (07:47)
[2016-08-13] MEDS: RIFAXIMIN TAB 550 MG TAB PO SCH (07:47)
[2016-08-13] MEDS: [UNRECOGNIZED DRUG - OTHER] PO SCH (07:47)
[2016-08-13] MEDS: GUAIFENESIN 600 MG TABCR PO SCH (07:48)
[2016-08-13] MEDS: SPIRONOLACTONE 25 MG TAB PO SCH (07:48)
[2016-08-13] MEDS: PROPRANOLOL HCL 10 MG TAB PO SCH (07:49)
[2016-08-13] MEDS: URSODIOL 300 MG CAP PO SCH (07:49)
[2016-08-13] MEDS: LACTULOSE SYRUP 10 GM/15 ML BTL 473 ML PO SCH ×2 (07:50→07:57)
[2016-08-13] MEDS: PANTOprazole SOD 40 MG TAB PO SCH (07:50)
[2016-08-13] MEDS: MULTIVITAMIN TAB PO SCH (07:51)
[2016-08-13] MEDS: FUROSEMIDE 40 MG TAB PO SCH (07:51)
[2016-08-13] MEDS: TRAMADOL HCL 50 MG TAB PO PRN (07:53)
[2016-08-13 08:04] VITALS: BP 117/72; PULSE 65; TEMP 36.6; O2SAT 95
[2016-08-13 08:53] VITALS: O2SAT 94
--- NOTE | 2016-08-13 08:58 | Progress Note ---
Internal Med Progress Note Date of Service: Aug 13, 2016. Provider Documentation: SUBJECTIVE: Patient is c/o pain in right shoulder- surgical site Does not c/o any epigastric pain worsening from baseline, no nausea, vomiting, fever, chills Pain is well controlled Tolerating diet well. OBJECTIVE: Vital Signs-as noted below Exam: GEN: AAOX3 , no distress CARDIO: reg rate, S1/2 heard LUNGS: CTA bilaterally, no crackles, rales or wheezes ABD: soft, mild chronic tenderness, BS present EXTREMITY: S/P surgery b/l; B/L pedal edema SKIN: Echymosis on abdomen Lab data as noted below. ASSESSMENT & PLAN: RIGHT PROXIMAL HUMERAL FRACTURE/LEFT DISTAL RADIAL FRACTURE Secondary to mechanical fall -S/P ORIF on both on 07/28/16.Pain controlled on pain medications -Ortho signed off. Follow up outpatient ELEVATED LIPASE Lipase up to 1100, however, clinically chronic epigastric pain with no worsening of her pain, no nausea/vomiting, CT scan no signs of acute pancreatitis. Tolerating low fat diet well. -Hx of Primary biliary cirrhosis -GI inputs appreciated. Follow up outpatient VOLUME OVERLOAD- Resolved Edema in b/l legs- difficult to mobilize fluid, so started on IV lasix yesterday , but held due to elevated lipase, possible pancreatitis -Per nephrology, changed to PO lasix/Aldactone as per home dosage HEPATORENAL SYNDROME - Resolved -Rxed with octreotide, midodrine, albumin -Nephrology inputs appreciated HX OF PRIMARY BILIARY CIRRHOSIS -On immunomodulator therapy and is s/p TIPA -Ocaliva once weekly per home regimen. CHRONIC CONSTRICTIVE PERICARDITIS -Stable on chronic steroid therapy ANEMIA-Stable secondary to Chronic disease DVT proph: Lovenox-held per patient refusal due to abdominal ecchymosis FULL CODE DISPOSITION OKAY to discharge from medical point of view [facility] has a bed today Vital Signs: Date Time Temp Pulse Resp B/P (MAP) Pulse Ox O2 Delivery O2 Flow Rate FiO2 08/13/16 08:53 94 Room Air 08/13/16 08:04 36.6 65 15 117/72 (87) 95 Room Air 08/13/16 08:00 Room Air 08/13/16 00:00 Room Air 08/12/16 22:53 36.8 64 18 137/77 (97) 94 Room Air 08/12/16 20:10 Room Air 08/12/16 15:12 36.9 68 18 122/72 (89) 92 Room Air 08/12/16 09:35 76 105/65 (78)
[2016-08-13] MEDS ORDERED: VTMD1000 PO (09:01)
[2016-08-13] MEDS ORDERED: FRRG PO (09:01)
[2016-08-13] MEDS ORDERED: LCTS240 PO (09:01)
[2016-08-13] MEDS ORDERED: ULT50X PO (09:01)
--- NOTE | 2016-08-13 09:02 | Discharge Instructions ---
Discharge Instructions Date of Service Aug 13, 2016. Admission Reason for Admission: Right Proximal Humerous Fx, Left Distal Radial Fx Discharge Discharge Diagnosis / Problem: 1. Left distal radius Fracture 2. Right proximal humerus fracture S/P ORIF Discharge Goals Goal(s): Decrease discomfort, Improve function, Increase independence Activity Recommendations Activity Limitations: per Instructions/Follow-up section (as per ortho instructions. PT/OT as per their instructions) . Current Hospital Diet Patient's current hospital diet: Low Fat Diet, Low Sodium Diet (2gm Na) Discharge Diet Recommended Diet: Low Sodium Diet (2gm Na), Low Fat Diet Procedures Procedures Performed: Left Wrist Distal Radius Fracture Open Reduction Internal Fixation; Right Proximal Humerus Open Reduction Internal Fixation, biceps tenodesis right shoulder Pending Studies Studies pending at discharge: no Medical Emergencies . Who to Call and When: Medical Emergencies: If at any time you feel your situation is an emergency, please call 911 immediately. . Non-Emergent Contact Non-Emergency issues call your: Primary Care Provider, Specialist (ortho) . . "Provider Documentation" section prepared by Vivi Carson. . Investigations Director Recommendations Investigations Director Recommendations: 1. Keep left wrist splint on for 2 weeks, Right shoulder bandage stays on for 7 days then dry dressings can be applied. 2. F/U in clinic w/ Dr Fontenot in 12-15 days ACTIVITY RECOMMENDATIONS: * Avoid lifting anything heavier than a medium water glass until your first post operative visit. SPECIAL CARE INSTRUCTIONS: * Your bandage should be left in place until your follow up in 2 weeks. * Some drainage onto the dressing may occur. This is normal. * If the bandage feels excessively tight, you may loosen the elastic bandage. Then call the physician's office for further instructions. * If possible, keep your hand elevated above the level of your heart for the first 2 post operative days. You may use a sling if necessary. * You should move your fingers regularly (50-100 motions per hour) unless otherwise instructed. SPECIAL PRECAUTIONS: * If you notice increased drainage, fever over 101 degrees F. or severe, unremitting pain, call your physician/office at . * You may have been prescribed pain medication. If you experience nausea and/or skin rash, discontinue this medication and contact our office for an alternative medication. FOLLOW UP VISIT: If appointment is not already scheduled: Please call [facility] to make a follow-up appointment with Dr. Fontenot for 2 weeks after your surgery at . VTE Core Measure Inpt VTE Proph given/why not?: T.E.D. Stockings, SCD's, Contraindicated (re: thrombocytopenia)
--- NOTE | 2016-08-13 09:07 | Discharge Summary ---
Discharge Summary Date of Service Aug 13, 2016. Discharge Summary Admission Date: Jul 26, 2016 at 17:41 Discharge Date: Aug 13, 2016 Discharge Disposition: [facility] facility ([facility]) Principal Diagnosis: 1. Left distal radial fracture S/P ORIF 2. Right proximal humerus fracture S/P ORIF 3. Mechanical fall 4. Hepatorenal syndrome 5. Hepatic encephalopathy 6. CARLOS ENRIQUE Secondary Diagnoses/Problems: 1. Hx of primary biliary cirrhosis 2. Chronic constrictive pericarditis 3. Anemia, chronic, iron deficient 4. Vitamin D insufficiency Procedures: ORIF- Left distal radius and right proximal humerus fracture on 07/28/[address] upper extremity CT abd/pelvis CXR Renal US Lung NM Humerus X ray Wrist X ray PT/OT Consultations: GI, Nephro, Pulm Pending Studies/Follow-Up: FOLLOW UP 1.Follow up with PCP in 1 week 2.Follow up with orthopedics as per instructions MEDICATION CHANGES: 1. Lactulose 15 gram TID added this admission 2. Iron/Vitamin D supplements added this admission 3. Pain Mx- Tramadol PRN as per instructions Medication Reconciliation New Medications: Cholecalciferol (Vitamin D3) 1,000 Inter.unit Tab 1000 UNITS PO DAILY, #30 Ferrous Gluconate (Ferrous Gluconate) 324 Mg Tab 324 MG PO TIDM for 30 Days, TAB Lactulose (Chronulac) 10 Gm/15 Ml Syrp 15 GM PO TID for 20 Days Tramadol HCl (Tramadol HCl) 50 Mg Tab 50 MG PO Q6H PRN for Pain, #20 TAB Continued Medications: Cetirizine (Zyrtec) 10 Mg Tab 10 MG PO PRN, TAB Furosemide (Lasix) 20 Mg Tab 100 MG PO QAM, TAB Gabapentin (Neurontin) 300 Mg Cap 300 MG PO TID, CAP Hydroxyzine Hcl (Atarax) 50 Mg Tab 50 MG PO HS, TAB Obeticholic Acid (Ocaliva) 5 Mg Tab 5 MG PO TUESDAY Ondansetron Hcl (Zofran) 4 Mg Tab 8 MG PO SL PRN for Nausea, TAB Prednisone (Prednisone) 1 Mg Tab 1 MG PO QAM, TAB Promethazine Hcl (Phenergan) 25 Mg Tab 25 MG PO Q4H PRN for Nausea, TAB Propranolol (Inderal) 10 Mg Tab 10 MG PO QAM, TAB Sertraline (Zoloft) 50 Mg Tab 50 MG PO QAM, TAB Spironolactone (Aldactone) 25 Mg Tab 75 MG PO QAM, TAB Trazodone Hcl (Trazodone) 100 Mg Tab 100 MG PO HS, TAB Ursodiol (Ursodiol) 300 Mg Cap 600 MG PO BID Discontinued Medications: Oxycodone Ir (Roxicodone Ir) 5 Mg Tab 5 MG PO Q4H PRN for Severe Pain, TAB Admission Information HPI (per Admitting provider): HISTORY OF PRESENT ILLNESS: History is obtained from the patient and records. 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 Px was found to have a L radial fracture. Elective surgery scheduled by [facility]. Cough productive of clear sputum the last few days. No cp. Initially w/ sob sx. Denies aspiration. Outpx CXR showed small right pleural effusion with atelectasis. Old L sided rib fxs (07/22) Cough improving. Today, the patient had a mechanical fall at home causing achy right shoulder pain. Outpx Xrays showed R humeral fx. Px sent to the to the ER. Hospital Course RIGHT PROXIMAL HUMERAL FRACTURE/LEFT DISTAL RADIAL FRACTURE Secondary to mechanical fall -S/P ORIF on both on 07/28/16.Pain controlled on pain medications -Ortho signed off. Follow up outpatient ELEVATED LIPASE Lipase up to 1100, however, clinically chronic epigastric pain with no worsening of her pain, no nausea/vomiting, CT scan no signs of acute pancreatitis. Tolerating low fat diet well. -Hx of Primary biliary cirrhosis -GI inputs appreciated. Follow up outpatient VOLUME OVERLOAD- Resolved Edema in b/l legs- difficult to mobilize fluid, so started on IV lasix yesterday , but held due to elevated lipase, possible pancreatitis -Per nephrology, changed to PO lasix/Aldactone as per home dosage HEPATORENAL SYNDROME - Resolved -Rxed with octreotide, midodrine, albumin -Nephrology inputs appreciated HX OF PRIMARY BILIARY CIRRHOSIS -On immunomodulator therapy and is s/p TIPA -Ocaliva once weekly per home regimen. CHRONIC CONSTRICTIVE PERICARDITIS -Stable on chronic steroid therapy ANEMIA-Stable secondary to Chronic disease DVT proph: Lovenox-held per patient refusal due to abdominal ecchymosis FULL CODE DISPOSITION OKAY to discharge from medical point of view [facility] has a bed today Total time spent on discharge = 35 minutes This includes examination of the patient, discharge planning, medication reconciliation, and communication with other providers. Discharge Instructions Discharge Discharge Diagnosis / Problem: 1. Left distal radius Fracture 2. Right proximal humerus fracture S/P ORIF Discharge Goals Goal(s): Decrease discomfort, Improve function, Increase independence Activity Recommendations Activity Limitations: per Instructions/Follow-up section (as per ortho instructions. PT/OT as per their instructions) . Current Hospital Diet Patient's current hospital diet: Low Fat Diet, Low Sodium Diet (2gm Na) Discharge Diet Recommended Diet: Low Sodium Diet (2gm Na), Low Fat Diet Procedures Procedures Performed: Left Wrist Distal Radius Fracture Open Reduction Internal Fixation; Right Proximal Humerus Open Reduction Internal Fixation, biceps tenodesis right shoulder Pending Studies Studies pending at discharge: no Medical Emergencies . Who to Call and When: Medical Emergencies: If at any time you feel your situation is an emergency, please call 911 immediately. . Non-Emergent Contact Non-Emergency issues call your: Primary Care Provider, Specialist (ortho) . . "Provider Documentation" section prepared by Vivi Carson. . Fire Observer Recommendations Fire Observer Recommendations: 1. Keep left wrist splint on for 2 weeks, Right shoulder bandage stays on for 7 days then dry dressings can be applied. 2. F/U in clinic w/ Dr Fontenot in 12-15 days ACTIVITY RECOMMENDATIONS: * Avoid lifting anything heavier than a medium water glass until your first post operative visit. SPECIAL CARE INSTRUCTIONS: * Your bandage should be left in place until your follow up in 2 weeks. * Some drainage onto the dressing may occur. This is normal. * If the bandage feels excessively tight, you may loosen the elastic bandage. Then call the physician's office for further instructions. * If possible, keep your hand elevated above the level of your heart for the first 2 post operative days. You may use a sling if necessary. * You should move your fingers regularly (50-100 motions per hour) unless otherwise instructed. SPECIAL PRECAUTIONS: * If you notice increased drainage, fever over 101 degrees F. or severe, unremitting pain, call your physician/office at . * You may have been prescribed pain medication. If you experience nausea and/or skin rash, discontinue this medication and contact our office for an alternative medication. FOLLOW UP VISIT: If appointment is not already scheduled: Please call [facility] to make a follow-up appointment with Dr. Fontenot for 2 weeks after your surgery at . VTE Core Measure Inpt VTE Proph given/why not?: T.E.D. Stockings, SCD's, Contraindicated (re: thrombocytopenia)
[2016-08-13 10:19] VITALS: BP 117/72; PULSE 65; TEMP 36.6; O2SAT 94
[2016-09-10] MEDS ORDERED: FERR325T18 PO (10:04)
[2016-09-10] MEDS ORDERED: CHOL1CAP57 PO (10:04)
[2016-10-21] MEDS ORDERED: XFX550 PO (11:50)
[2016-10-21] MEDS ORDERED: PRT40 PO (11:50)
[2016-10-21] MEDS ORDERED: PRD5 PO (11:50)
[2016-10-21] MEDS ORDERED: LORA-741 PO (11:50)
[2016-10-21] MEDS ORDERED: NUTRMIS PO (11:50)
[2016-10-21] MEDS ORDERED: MULT-890 PO (11:50)
[2016-10-21] MEDS ORDERED: MIDO5TAB PO (12:12)
[2016-10-25] MEDS ORDERED: ARNI60 SC (14:31)
[2016-10-25] MEDS ORDERED: DOCU100C31 PO ×2 (14:32→14:34)
[2016-10-25] MEDS ORDERED: DLCS PR (14:33)
[2016-10-25] MEDS ORDERED: LORA-741 PO (14:34)
[2016-10-25] MEDS ORDERED: MOMLX PO (14:35)
[2016-10-25] MEDS ORDERED: ONDA4TAB46 PO (14:36)
[2016-10-25] MEDS ORDERED: POLY1POW2 PO (14:36)
[2016-10-25] MEDS ORDERED: SODI650T8 RE (14:37)
[2016-11-03] MEDS ORDERED: CLC/300 PO (11:26)
== END 2016-08-13 11:05 | DRG 492 ==
LOC: C.EDB 15:41 → C.MSN 17:41 → ENRESERV 18:02 → EDBEDREQ 08-01 15:22 → ENRESERV 08-01 15:32 → C.2E 08-01 16:56 → ENRESERV 08-05 13:35 → C.MSN 08-05 14:51
PROVIDERS: ADMIT Orthopaedic Surgery; ATTEND Internal Medicine
PROC: 0LS30ZZ Reposition Right Upper Arm Tendon, Open Approach (ICD-10-PCS; principal; 2016-07-28 11:30)
PROC: 0PSC04Z Reposition Right Humeral Head with Internal Fixation Device, Open Approach (ICD-10-PCS; principal; 2016-07-28 11:30)
PROC: 0PSJ04Z Reposition Left Radius with Internal Fixation Device, Open Approach (ICD-10-PCS; principal; 2016-07-28 11:30)
DX: S42.291A Other displaced fracture of upper end of right humerus, initial encounter for closed fracture (principal); K76.7 Hepatorenal syndrome; J81.0 Acute pulmonary edema; S46.121A Laceration of muscle, fascia and tendon of long head of biceps, right arm, initial encounter; S52.502P Unspecified fracture of the lower end of left radius, subsequent encounter for closed fracture with malunion; N17.9 Acute kidney failure, unspecified; J96.11 Chronic respiratory failure with hypoxia; J98.11 Atelectasis; E72.20 Disorder of urea cycle metabolism, unspecified; I31.1 Chronic constrictive pericarditis; K76.6 Portal hypertension; W06.XXXA Fall from bed, initial encounter; Y92.003 Bedroom of unspecified non-institutional (private) residence as the place of occurrence of the external cause; W01.0XXD Fall on same level from slipping, tripping and stumbling without subsequent striking against object, subsequent encounter; Y92.002 Bathroom of unspecified non-institutional (private) residence as the place of occurrence of the external cause; R29.6 Repeated falls; E87.6 Hypokalemia; T50.2X5A Adverse effect of carbonic-anhydrase inhibitors, benzothiadiazides and other diuretics, initial encounter; J20.8 Acute bronchitis due to other specified organisms; D72.829 Elevated white blood cell count, unspecified; T38.0X5A Adverse effect of glucocorticoids and synthetic analogues, initial encounter; K76.81 Hepatopulmonary syndrome; E86.9 Volume depletion, unspecified; R53.83 Other fatigue; K59.03 Drug induced constipation; T40.2X5A Adverse effect of other opioids, initial encounter; Y92.230 Patient room in hospital as the place of occurrence of the external cause; R41.0 Disorientation, unspecified; J98.6 Disorders of diaphragm; M81.0 Age-related osteoporosis without current pathological fracture; E83.41 Hypermagnesemia; D69.59 Other secondary thrombocytopenia; K72.90 Hepatic failure, unspecified without coma; F32.89 Other specified depressive episodes; S30.1XXA Contusion of abdominal wall, initial encounter; T80.89XA Other complications following infusion, transfusion and therapeutic injection, initial encounter; R51 Headache; E87.70 Fluid overload, unspecified; R74.8 Abnormal levels of other serum enzymes; R10.13 Epigastric pain; M99.01 Segmental and somatic dysfunction of cervical region; K74.3 Primary biliary cirrhosis; I12.9 Hypertensive chronic kidney disease with stage 1 through stage 4 chronic kidney disease, or unspecified chronic kidney disease; N18.3 Chronic kidney disease, stage 3 (moderate); M19.90 Unspecified osteoarthritis, unspecified site; D63.1 Anemia in chronic kidney disease; R60.0 Localized edema; F17.200 Nicotine dependence, unspecified, uncomplicated; Z53.29 Procedure and treatment not carried out because of patient's decision for other reasons; Z91.14 Patient's other noncompliance with medication regimen; Z79.52 Long term (current) use of systemic steroids; Z79.891 Long term (current) use of opiate analgesic; Z79.899 Other long term (current) drug therapy

== ENCOUNTER 2016-09-17 09:24 | Inpatient (IN) | payer OTHER ==
--- NOTE | 2016-09-08 15:04 | HISTORY & PHYSICAL EXAMINATION ---
DATE OF ADMISSION: 09/17/2016 SUBJECTIVE CHIEF COMPLAINT: Right shoulder pain. HISTORY OF PRESENT ILLNESS: The patient is a 60-year-old female who presents with right shoulder pain. She is 6 weeks out from an open reduction internal fixation of her right proximal humerus. She states that the symptoms occur constantly and she describes them as being aching and sharp. She denies any trauma. X-rays of the right shoulder demonstrated significant interval displacement of the humeral head with both collapse of the humeral head as well as posterior translation of the humeral head in relation to the diaphysis. It was discussed with the patient that an additional surgical procedure would be necessary. She wishes to proceed with a surgical procedure to correct her proximal humerus fracture. PAST MEDICAL HISTORY: Significant for cirrhosis of the liver and osteoarthritis. PAST SURGICAL HISTORY: TIPS procedure, left ORIF of the proximal humerus, right ORIF of the proximal humerus, left ORIF distal radius. SOCIAL HISTORY: She denies alcohol use. She denies smoking or tobacco use. She denies IV or illegal drug use. She lives in a 2-story house. She is currently disabled. FAMILY HISTORY: Mom and dad have a history of heart disease. ALLERGIES: She has no known drug allergies. MEDICATIONS: Furosemide 20 mg, spironolactone 25 mg, reciprocal 300 mg, propranolol and sertraline. REVIEW OF SYSTEMS: She denies headaches, fevers, chills, double vision, blurry vision, sore throat, chest pain, nausea, vomiting, diarrhea, constipation, numbness, tingling, tired, difficulty going to the bathroom, thoughts to harm herself or harm others, depression. She is positive for right shoulder pain and stiffness. OBJECTIVE: GENERAL APPEARANCE: The patient is a 60-year-old female sitting in a wheelchair, slumped over in no acute distress. She is awake, alert and oriented x3. VITAL SIGNS: Her blood pressure was 130/74. HEAD, EYES, EARS, NOSE, AND THROAT: Normocephalic, atraumatic. Extraocular movements were intact. Mucosa was moist. No septal deviation. NECK: Supple, no lymphadenopathy, no JVD, no thyromegaly. HEART: Regular rate and rhythm with no murmurs or gallops. LUNGS: Clear to auscultation. No wheezing or rhonchi. ABDOMEN: Soft, nontender, nondistended. Normal bowel sounds, no hepatosplenomegaly. EXTREMITIES: Paying particular attention to the right upper extremity, she has difficulty moving with active flexion, abduction and external rotation. She has diffuse tenderness over the glenohumeral joint. IMAGING: X-rays of the right shoulder demonstrated significant interval displacement of the humeral head with both collapse of the femoral head as well as posterior translation in relationship to the diaphysis. IMPRESSION: Nonhealing open reduction and internal fixation right proximal humerus fracture with displaced humeral head. PLAN: Discussed with the patient that unfortunately the proximal humerus fracture has had significant increase in displacement and collapse of the humeral head. She was also concerned by the fact that she has been lifted by her right arm while at the [facility] facility which may have increased the likelihood of failure of her fixation. She will be scheduled for arthroplasty of the right shoulder. She is scheduled for a hemiarthroplasty versus a reverse total shoulder arthroplasty depending on the quality of the tuberosities and the status of her rotator cuff. Risks and benefits to surgery were discussed with her that included but not limited to infection, DVT, pain, stiffness, need for revision surgeries, damage to blood vessels, damage to nerves, PE, and anesthesia risks were all discussed with the patient and she wishes to proceed. All questions were answered to her satisfaction. Her plan is to go home to a [facility] facility after her hospital stay. [place]
--- NOTE | 2016-09-10 10:12 | PAT Medication Instructions ---
Service Date Sep 10, 2016. Current Home Medication List Cholecalciferol (Vitamin D3), 1,000 UNITS PO QAM Ferrous Gluconate (Ferrous Gluconate), 324 MG PO TID Furosemide (Lasix), 100 MG PO QAM Gabapentin (Neurontin), 300 MG PO TID Hydroxyzine Hcl (Atarax), 50 MG PO HS Obeticholic Acid (Ocaliva), 5 MG PO TUESDAY Prednisone (Prednisone), 1 MG PO QAM Propranolol (Inderal), 10 MG PO QAM Sertraline (Zoloft), 50 MG PO QAM Spironolactone (Aldactone), 75 MG PO QAM Ursodiol (Ursodiol), 600 MG PO BID Medication Instructions For Your Scheduled Surgery - Hold the following medications the morning of surgery: Furosemide (Lasix), 100 MG PO QAM Cholecalciferol (Vitamin D3), 1,000 UNITS PO QAM Ferrous Gluconate (Ferrous Gluconate), 324 MG PO TID Ursodiol (Ursodiol), 600 MG PO BID Spironolactone (Aldactone), 75 MG PO QAM Obeticholic Acid (Ocaliva), 5 MG PO TUESDAY - Take the following medications the morning of surgery with a sip of water: Gabapentin (Neurontin), 300 MG PO TID Prednisone (Prednisone), 1 MG PO QAM Propranolol (Inderal), 10 MG PO QAM Sertraline (Zoloft), 50 MG PO QAM - Take the following medications as scheduled the night before surgery: Ferrous Gluconate (Ferrous Gluconate), 324 MG PO TID Gabapentin (Neurontin), 300 MG PO TID Hydroxyzine Hcl (Atarax), 50 MG PO HS Ursodiol (Ursodiol), 600 MG PO BID If you have any questions please call us at [phone] or [phone] or [phone]
[2016-09-17] VITALS (7 sets, daily range): BP systolic 84–125; BP diastolic 48–72; PULSE 50–60; TEMP 36.3–36.7; O2SAT 93–95; Ht 165.1 cm; Wt 75.5 kg
[~2016-09-17] VITALS: Ht 165.1 cm; Wt 75.5 kg
[~2016-09-17 09:24] MED LIST changes: +ATROPINE SULFATE 0.1 MG/ML 5ML SYR IV PRN; +CEFAZOLIN 2000 MG/60 ML D5W 60 ML IV SCH; -CETI10TA84 PO; +CHOL1CAP57 PO; +DEXAMETHASONE 4 MG TAB PO SCH; +FENTANYL CITRATE INJ 50 MCG/1 ML 2 ML VIAL IV PRN; +FERR325T18 PO; +HYDROmorphone INJ 1 MG/ML SYR IV PRN; +LACTATED RINGER'S 1000ML IV SCH; -ONDA4TAB46 PO; +ONDANSETRON INJ 2 MG/ML 2 ML VIAL IV PRN; -OXYC1TAB3 PO; -PROM25TA9 PO; +PROMETHAZINE HCL INJ 12.5 MG in SODIUM CHLORIDE 0.9% 50ML 50 ML IV PRN; +ROPIVACAINE 0.5% 5 MG/ML 30 ML VIAL ONE; +ROPIVACAINE 5MG/ML 30 ML 150 MG, BUPIVACAINE/EPINEPHR 0.5% MPF 30 ML, DEXAMETHASONE INJ... INFIL SCH; +SODIUM CHLORIDE 0.9% 1000ML 1,000 ML IV SCH; -SPR25 PO; -TRAZ100T29 PO; -VITA1TAB4 PO; -[UNRECOGNIZED DRUG - OTHER] PO
[2016-09-17] MEDS ORDERED: Furosemide PO (09:58)
[2016-09-17] MEDS ORDERED: FENTANYL CITRATE INJ 50 MCG/1 ML 2 ML VIAL ONE (10:44)
[2016-09-17] MEDS ORDERED: MIDAZOLAM HCL 1 MG/ML 2ML VIAL ONE (10:44)
[2016-09-17] MEDS ORDERED: POVIDONE-IODINE OP SOLN 30 ML BTL ONE (12:11)
[2016-09-17] MEDS ORDERED: THROMBIN FOR SOLN 20000 UNIT KIT ONE (12:11)
[2016-09-17] MEDS ORDERED: BACITRACIN 50000 UNIT VIAL ONE (12:11)
[2016-09-17] MEDS ORDERED: ORTHO JOINT ANESTHETIC ONE (12:11)
[2016-09-17] MEDS ORDERED: VANCOMYCIN HCL 1000MG/20ML VIAL ONE (12:11)
[2016-09-17] MEDS ORDERED: ALBUMIN HUMAN 5% 12.5 GM/250 ML VIAL IV ONE (13:18)
[2016-09-17] MEDS ORDERED: PROPOFOL IV EMULSION 10 MG/ML 20 ML VIAL IV ONE (14:46)
[2016-09-17] MEDS ORDERED: CISATRACURIUM BESYLATE IV SOLN 2 MG/ML 10 ML VIAL ONE (14:46)
[2016-09-17] MEDS ORDERED: ONDANSETRON INJ 2 MG/ML 2 ML VIAL ONE ×2 (14:46→15:36)
[2016-09-17] MEDS ORDERED: GLYCOPYRROLATE INJ 0.2 MG/ML VIAL ONE (15:36)
[2016-09-17] MEDS ORDERED: LIDOCAINE HCL 2% 2 ML VIAL (20MG/ML) ONE (15:36)
[2016-09-17] MEDS ORDERED: NEOSTIGMINE METHYLSULFATE 5 MG/5 ML SYR ONE (15:36)
[2016-09-17] MEDS ORDERED: ZOLPIDEM TARTRATE 5 MG TAB PO PRN (16:15)
[2016-09-17] MEDS ORDERED: OXYCODONE HCL IR 5 MG TAB (IMMEDIATE RELEASE) PO PRN (16:15)
[2016-09-17] MEDS ORDERED: SOD PHOSPHATE/SOD BIPHOSPHATE ENEMA 132 ML BTL PR PRN (16:15)
[2016-09-17] MEDS ORDERED: ALUMINUM/MAGNESIUM SUSP 30 ML UDC PO PRN (16:15)
[2016-09-17] MEDS ORDERED: MAGNESIUM HYDROXIDE SUSP 30 ML UDC PO PRN (16:15)
[2016-09-17] MEDS ORDERED: BISACODYL 10 MG SUPP PR PRN (16:15)
[2016-09-17] MEDS ORDERED: ONDANSETRON INJ 2 MG/ML 2 ML VIAL IV PRN (16:15)
--- NOTE | 2016-09-17 16:47 | Anesthesiology Progress Note ---
Anesthesia Post Op Note Date & Time Sep 17, 2016 at 16:47 Vital Signs Pain Intensity: 0 Vital Signs Past 12 Hours Date Time Temp Pulse Resp B/P (MAP) Pulse Ox O2 Delivery O2 Flow Rate FiO2 09/17/16 16:09 36.1 64 16 124/61 98 Mask 10 09/17/16 10:20 36.7 60 22 125/68 94 Room Air Notes Mental Status: alert / awake / arousable, participated in evaluation Pt Amnestic to Procedure: Yes Nausea / Vomiting: adequately controlled Pain: adequately controlled Airway Patency, RR, SpO2: stable & adequate BP & HR: stable & adequate Hydration State: stable & adequate Anesthetic Complications: no major complications apparent
--- NOTE | 2016-09-17 17:23 | DIAGNOSTIC IMAGING REPORT ---
RIGHT SHOULDER MIN 2 VIEWS ROUTINE CLINICAL HISTORY: Post shoulder surgery Right COMPARISON STUDY: None. FINDINGS: There is a reverse right total shoulder arthroplasty. The hardware appears intact. Skin maricarmen and surgical drains are in place. Bony fragment next to the humeral neck is likely due to postoperative change. No dislocation. No acute fractures. IMPRESSION: Status post a reverse right total shoulder arthroplasty. No evidence for hardware complication. Electronically signed by: Zachary Clark M.D. 09/17/2016 5:22 PM Dictated Date/Time: 09/17/2016 5:21 PM
[2016-09-17] MEDS ORDERED: NURSING DECISION MEDICATION ORDER SCH (18:00)
--- NOTE | 2016-09-17 18:14 | [facility] Operative Report ---
Operative Report Operative Date Sep 17, 2016. Pre-Operative Diagnosis Right proximal humerus fracture status post open reduction internal fixation with failure of fixation of the hardware with displacement of the humeral head plus olecranon pressure ulcer right elbow Post-Operative Diagnosis Same Procedure(s) Performed Right reverse total shoulder arthroplasty, removal of deep hardware right proximal humerus, debridement of olecranon ulcer right elbow Surgeon Dr. Luis A Fontenot Evaporator Surgeon(s) Huseyin Bermudez PA-C Estimated Blood Loss 200 ML Findings Above Specimens B. RIGHT HUMERAL HEAD Drains one Hemovac Anesthesia Gen. plus interscalene block Complication(s) None Disposition Recovery Room / PACU Indications Patient is a 60-year-old female who presents 6 weeks ago has sustained 2 separate falls. She sustained a displaced left distal radius fracture. Subsequently prior to fixation of her distal radius fracture she fell once again and sustained a displaced right proximal humerus fracture. I performed open reduction internal fixation both wrist as well as humerus. The wrist has healed well. The patient reports that at the assisted she has been lifted off by the arm of the side of her humerus fracture. Her family also relates that the patient has not been wearing the sling at night the patient states it is because the sling is uncomfortable. She developed increasing displacement of the proximal humerus fracture with tear of the screws with anterior displacement of the diaphysis and posterior displacement of the humeral head. Given the failure of her plate fixation by recommendation is for right shoulder hemiarthroplasty versus reverse total shoulder arthroplasty depending on the condition of her tuberosities at the time of surgery. My concern is that if her bone quality is poor enough that the screw fixation failed that we would have poor tuberosity fixation for heavy and subsequently had either failure of her tuberosity repair were very quick reabsorption for tuberosities with failure of the hemiarthroplasty and the need for conversion to a reverse shoulder anyway. She is also developed a pressure ulcer over the tip the olecranon the region is clean without any purulent drainage there is tenderness type material over the tip of the olecranon consistent with a chronic nonhealing wound. We'll plan for operative debridement of this same region after the shoulder surgery had been closed. Description of Procedure Risks, benefits and alternatives to surgery including, but not limited to, infection DVT, pain, stiffness, need for revision surgery, failure to relieve all symptoms, damage to blood vessels, damage to nerves, risk of anesthesia were discussed with the patient and they wished to proceed. The patient was identified. Laterality was confirmed and marked. The patient received a preoperative antibiotic as well as an interscalene block. They were transferred to the operating room and placed in the supine position and induced into general endotracheal anesthesia per the anesthesia staff. The patient was then safely transferred to a slight beachchair position. The patient was secured in the [employer] positioner. All pressure points were well padded. The shoulder was prepped and draped in the usual sterile manner with ChloraPrep. I placed 2 impervious stockinettes on the arm 1 distal to the region of her olecranon ulcer another going more proximal that covered up the olecranon. The plan is to finish the shoulder procedure close the wound and covered and the proceed with debridement of the pressure ulcer. I made a longitudinal incision just lateral to the coracoid, sharply incising through the skin and utilizing Bovie electrocautery to achieve hemostasis utilizing her previous surgical incision. I was able to do the majority of the dissection bluntly with my finger tips. The repair of her deltopectoral interval with Ethibond and some had failed others remained intact. The sutures are removed. The proximal humerus was identified and cleared of interposing soft tissue. There is no signs or symptoms of infection. There is no fluid there is no purulence. There was a fair amount of very poor bone material around the proximal screws the humeral head had displaced posteriorly. The humeral head itself essentially remained a cortical shell. The lesser tuberosity was extremely fragmented but had minimal bone. I tagged the subscapularis with an interrupted #2 FiberWire for later repair. I then excised the interposing tissue. I then removed the humerus locking plate and all of the screws. I mobilized the remaining humeral head and greater tuberosity. Greater tuberosity was in several fragments. Excised the remaining cortical shelf humeral head is inspected the greater tuberosity. There was a Shell there but there is minimal bone on Buffy shell in the region of the greater tuberosity. Given her already poor healing potential and poor tissue of that proceeding with a hemiarthroplasty would fail as I did not feel we reveals a get adequate repair of the tuberosities that would heal to metal prosthesis. I elected to proceed with a reverse total shoulder. I placed retractors around the glenoid and then excised the residual biceps tendon stump and glenoid labrum. I elevated the soft tissues and the inferior aspect of the glenoid to improve exposure and released tissues circumferentially. I then positioned and drilled for the central post for the glenoid plate. The glenoid plate was bone grafted with bone taken from the humeral head. I impacted the definitive glenoid plate into position and then placed a total of 4 compression screws that were then locked into position with locking caps. I then placed the size [38] glenosphere onto the plate and secured it with a locking screw. I then sequentially reamed up to a size 11 stem. However the trial 11 stem was relatively loose as there was some metaphyseal bone loss anteriorly. The medial calcar was intact. I tried downsizing to a size 9 stem. My girdle was to try and get a press-fit stem anterior humerus. I'm concerned about is demented stem for several reasons. One with her previous drill holes from her plate fixation I worried about cement extravasation. I'm also concerned given her young age and poor health that she may require revision at a later date and a revision would be much easier with a press-fit stem and then with a well cemented stem. I was able to recess the 9 mm stem achieve good stability with rotation. I then sequentially trialed up to a +5 humeral tray with a +2.5 mm liner. I felt this gave good stability and catholic of length of the arm. I removed all the trial components. I then impacted the definitive 9 mm stem into position. I then placed the trial components for a +5 tray and +2.5 mm liner again in the shoulder and again liked the total of 7.5 mm. I then removed the trial tray and poly-and locked into position in the definitive +5 humeral tray adapter and locked it into position with a torque limiting screw. I then impacted the +5 humeral liner. While impacting the humeral liner the stem impacted down a bit and I felt that the +2.5 mm liner would be a little too loose. I did not want to up size to the +10 humeral tray as that will require removing the +5 tray and torque limiting screw and then re-torquing the humerus with another torque limiting screw and giving her poor bone quality I elected to keep the +5 humeral tray without having to risk further damage to humerus and I placed a +2.5 mm constrained humeral liner. I then reduced the shoulder. We did tensioning to the surrounding soft tissues. I then repaired the supraspinatus and greater tuberosity fragments to the subscapularis over the proximal aspect of the humeral component. I then also repaired the greater tuberosity and subscapularis to the humerus with #2 FiberWire sutures some sutures going into the periosteum some of the sutures going into the pec tendon. The definitive components used were [employer] Equinox: Humeral press-fit stem: [9] Standard glenoid plate Glenosphere: [38] Humeral tray:+ 5 Humeral liner: +2.5 mm constrained I thoroughly irrigated the wound. A deep drain was placed. The deltopectoral interval was closed with interrupted #1 Ethibond suture. The subcutaneous tissue was closed with interrupted 2-0 Vicryl suture. The skin was closed with maricarmen. I then covered the wound with Tegaderm. We then removed the more superficial stockinette. I sharply debrided the olecranon pressure ulcer excising skin and subcutaneous tissue and getting good bleeding edges and debrided the region centrally. It was then thoroughly irrigated and a sterile dressing was applied. Once this wound is covered the Tegaderm over the proximal incision was removed and a Silverlon was placed. All needle and sponge counts were correct at the end of the procedure the patient was transferred to the PACU in stable condition without apparent complication. I attest to the content of the Intraoperative Record and any orders documented therein. Any exceptions are noted below.
[2016-09-17] MEDS: FERROUS GLUCONATE 324 MG TAB PO SCH (19:05)
[2016-09-17] MEDS: KETOROLAC TROMETHAMINE 30 MG/ML VIAL IV. SCH ×2 (19:06→23:51)
[2016-09-17] MEDS: POTASSIUM CHLORIDE INJ 10 MEQ in SODIUM CHLORIDE 0.9% 1000ML 1,000 ML IV SCH (19:06)
[2016-09-17] MEDS ORDERED: CEFAZOLIN IV 2,000 MG in DEXTROSE 5% 50ML 50 ML IV SCH (20:00)
--- NOTE | 2016-09-17 20:19 | Medical Consult ---
Consultation Date of Consultation: Sep 17, 2016. Attending Physician: Luis A Fontenot M.D. Reason for Consultation: Medical management . History of Present Illness 60-year-old female followed by Dr. Witt in [place] for primary care. History of paroxysmal atrial tachycardia, chronic kidney disease, biliary cirrhosis, and other problems as noted. Right reverse total shoulder arthroplasty, removal of deep hardware right proximal humerus, debridement of olecranon ulcer right elbow performed today by Dr. Fontenot. Doing well postoperatively. No chest pain. No cough or dyspnea. No nausea or vomiting. Postop pain well-controlled. . Past Medical/Surgical History Chronic and Resolved Medical Problems: (1) Ascites Status: Chronic (2) Biliary cirrhosis Status: Chronic (3) CKD (chronic kidney disease), stage III Status: Chronic (4) Esophageal varices Status: Chronic (5) History of paroxysmal atrial tachycardia Status: Chronic (6) Osteoarthritis Status: Chronic (7) Portal hypertension Status: Chronic Surgical Problems: (1) Status post reverse total arthroplasty of right shoulder Status: Chronic (2) Status post transjugular intrahepatic portosystemic shunt Status: Chronic . Family History FATHER Diabetes mellitus Heart disease MOTHER Asthma Heart disease Social History Smoking Status: Never Smoker Alcohol Use: none Occupation Status: disabled Allergies Coded Allergies: Budesonide (Verified Allergy, Intermediate, FACIAL SWELLING, 09/17/16) PER RECORDS Mycophenolate (Verified Allergy, Intermediate, FACIAL SWELLING, 09/17/16) PER RECORDS Latex (Verified Allergy, Mild, RASH-CONTACT, 09/17/16) Acetaminophen (Verified Adverse Reaction, Unknown, "LIVER DISEASE", ) PER RECORDS Pseudoephedrine (Verified Adverse Reaction, Unknown, TACHYCARDIA, 09/17/16) PER RECORDS Home Medications Reported Home Medications Medications Dose Route/Sig Max Daily Dose Days Date Category Dose Instructions [Furosemide] 2 Tab PO BID 09/17/16 Reported Vitamin D3 (Cholecalciferol) 1,000 Unit Cap 1,000 Units PO QAM 09/10/16 Reported Ferrous Gluconate 324 Mg Tab 324 Mg PO TID 09/10/16 Reported Atarax (Hydroxyzine Hcl) 50 Mg Tab 50 Mg PO HS 07/23/16 Reported Inderal (Propranolol HCl) 10 Mg Tab 10 Mg PO QAM 07/23/16 Reported Ursodiol 300 Mg Cap 600 Mg PO BID 07/23/16 Reported Neurontin (Gabapentin) 300 Mg Cap 300 Mg PO TID 07/23/16 Reported Ocaliva (Obeticholic Acid) 5 Mg Tab 5 Mg PO Tuesday07/23/16 Reported AM Aldactone (Spironolactone) 25 Mg Tab 75 Mg PO QAM 07/23/16 Reported Zoloft (Sertraline HCl) 50 Mg Tab 50 Mg PO QAM 07/23/16 Reported Prednisone 1 Mg Tab 1 Mg PO QAM 07/23/16 Reported Current Inpatient Medications Current Inpatient Medications Medications (Trade) Dose Ordered Sig/Michael Route Start Time Stop Time Status Last Admin Dose Admin Lactated Ringer's 1,000 ml @ 60 mls/hr [id number] IV 09/17/16 06:00 09/17/16 22:39 Sodium Chloride 1,000 ml @ 15 mls/hr Q24H IV 09/17/16 06:00 09/18/16 05:59 Ketorolac Tromethamine (Toradol Inj) 30 mg Q6 IV. 09/17/16 18:00 09/18/16 17:59 09/17/16 19:06 30 MG Diphenhydramine HCl (Benadryl Cap) 25 mg Q8 PRN PO 09/17/16 16:15 10/17/16 16:14 Zolpidem Tartrate (Ambien Tab) 5 mg HSZ PRN PO 09/17/16 16:15 10/17/16 16:14 Ondansetron HCl (Zofran Inj) 4 mg Q6H PRN IV 09/17/16 16:15 10/17/16 16:14 Al Hydroxide/Mg Hydroxide (Maalox Susp) 30 ml Q4H PRN PO 09/17/16 16:15 10/17/16 16:14 Pantoprazole Sodium (Protonix Tab) 40 mg QAM PO 09/18/16 09:00 10/18/16 08:59 Potassium Chloride 10 meq/ Sodium Chloride 1,005 ml @ 100 mls/hr Q10H3M IV 09/17/16 18:00 10/17/16 17:59 09/17/16 19:06 100 MLS/HR Oxycodone HCl (Roxicodone Immediate Rel Tab) `1-2 TABS FOR PAIN `1 TAB... Q4H PRN PO 09/17/16 16:15 8/25/17 16:14 Oxycodone HCl (Oxycontin Tab) 10 mg Q12 PO 09/17/16 21:00 10/01/16 20:59 Magnesium Hydroxide (Milk Of Magnesia Susp) 30 ml Q6H PRN PO 09/17/16 16:15 10/17/16 16:14 Bisacodyl (Dulcolax Supp) 10 mg DAILY PRN MA 09/17/16 16:15 10/17/16 16:14 Sodium Biphosphate/ Sodium Phosphate (Fleet Enema) 132 ml DAILY PRN MA 09/17/16 16:15 10/17/16 16:14 Senna (Senokot Tab) 17.2 mg HS PO 09/17/16 21:00 10/17/16 20:59 Multivitamins (Multivitamin Tab) 1 tab DAILY PO 09/18/16 09:00 10/18/16 08:59 Ferrous Gluconate (Ferrous Gluconate Tab) 324 mg TIDM PO 09/17/16 17:45 10/17/16 17:59 09/17/16 19:05 324 MG Cefazolin Sodium 2000 mg/Dextrose 60 ml @ 100 mls/hr Q8H IV 09/17/16 20:00 09/17/16 20:35 09/17/16 19:38 100 MLS/HR Gabapentin (Neurontin Cap) 300 mg TID PO 09/17/16 21:00 10/17/16 20:59 Hydroxyzine HCl (Vistaril Tab) 50 mg HS PO 09/17/16 21:00 10/17/16 20:59 Prednisone (PredniSONE TAB) 1 mg QAM PO 09/18/16 09:00 10/18/16 08:59 Propranolol HCl (Inderal Tab) 10 mg QAM PO 09/18/16 09:00 10/18/16 08:59 Sertraline HCl (Zoloft Tab) 50 mg QAM PO 09/18/16 09:00 10/18/16 08:59 Spironolactone (Aldactone Tab) 75 mg QAM PO 09/18/16 09:00 10/18/16 08:59 Ursodiol (Actigall Cap) 600 mg BID PO 09/17/16 21:00 10/17/16 20:59 Miconazole Nitrate (Desenex Powder) 1 appln BID EXT 09/17/16 21:00 10/17/16 20:59 Review of Systems Constitutional: No fever Respiratory: No cough, No shortness of breath Cardiovascular: No chest pain Abdomen: No pain, No nausea, No vomiting, No GI bleeding Musculoskeletal: + joint pain Genitourinary - Female: No dysuria Physical Exam Date Time Temp Pulse Resp B/P (MAP) Pulse Ox O2 Delivery O2 Flow Rate FiO2 09/17/16 19:30 36.5 53 14 105/72 (83) 95 Nasal Cannula 3.0 09/17/16 18:40 36.3 55 17 94/58 (70) 95 Nasal Cannula 4.0 09/17/16 18:05 36.4 55 16 92/62 (72) 95 Nasal Cannula 4.0 09/17/16 17:30 Nasal Cannula 4.0 09/17/16 17:30 36.5 55 20 84/48 (60) 93 Nasal Cannula 4.0 09/17/16 17:30 93 Nasal Cannula 4.0 09/17/16 17:17 108/51 09/17/16 17:14 57 16 09/17/16 17:14 59 16 92 09/17/16 17:09 56 12 09/17/16 17:09 58 12 93 09/17/16 17:06 88/46 09/17/16 17:04 54 14 09/17/16 17:04 59 14 93 09/17/16 17:01 93/53 09/17/16 16:59 56 13 09/17/16 16:59 56 13 94 09/17/16 16:56 97/58 09/17/16 16:54 58 15 105/56 93 09/17/16 16:54 36.1 58 18 105/56 93 Nasal Cannula 3 09/17/16 16:54 56 15 09/17/16 16:51 83/47 09/17/16 16:50 87/43 09/17/16 16:49 56 13 09/17/16 16:49 13 09/17/16 16:46 90/50 09/17/16 16:44 54 14 09/17/16 16:44 56 14 93 09/17/16 16:41 84/53 09/17/16 16:39 55 14 93 09/17/16 16:39 55 14 09/17/16 16:36 94/56 09/17/16 16:34 58 17 94 09/17/16 16:34 55 17 09/17/16 16:32 87/54 09/17/16 16:29 55 13 09/17/16 16:29 57 13 97 09/17/16 16:27 116/46 09/17/16 16:24 57 15 97 09/17/16 16:24 57 15 09/17/16 16:21 97/48 09/17/16 16:19 58 14 09/17/16 16:19 58 14 97 09/17/16 16:17 98/64 09/17/16 16:14 57 14 98 09/17/16 16:14 57 14 09/17/16 16:12 109/64 09/17/16 16:09 59 124/61 98 09/17/16 16:09 59 09/17/16 16:09 36.1 64 16 124/61 98 Mask 10 09/17/16 10:20 36.7 60 22 125/68 94 Room Air General Appearance: no apparent distress Head: normocephalic, atraumatic Eyes: PERRL, EOMI, + abnormal sclerae exam (anicteric) ENT: hearing grossly normal, pharynx normal Neck: supple, no adenopathy, thyroid normal, no JVD, trachea midline Respiratory/Chest: lungs clear Cardiovascular: regular rate, rhythm, + systolic murmur (I/ systolic murmur at base) Abdomen/GI: normal bowel sounds, non tender, soft Extremities/Musculoskelatal: + pertinent finding (RUE immobilized; trace pretibial edema; TEDS and SCD's applied) Neurologic/Psych: + pertinent finding (somnolent postoperatively) Skin: warm/dry Assessment & Plan S/P RIGHT REVERSE TOTAL SHOULDER ARTHROPLASTY, REMOVAL OF DEEP HARDWARE RIGHT PROXIMAL HUMERUS, DEBRIDEMENT OF OLECRANON ULCER RIGHT ELBOW Doing well postoperatively. HISTORY PAROXYSMAL ATRIAL TACHYCARDIA Continue propranolol. BILIARY CIRRHOSIS Continue usual medications. Watch for hepatic encephalopathy. CHRONIC STEROID THERAPY Chronic prednisone therapy for biliary cirrhosis. IV hydrocortisone this evening x 1, then PRN if any signs of hemodynamic instability. CHRONIC KIDNEY DISEASE Monitor creatinine. Avoid / minimize utilization of NSAID's, including ketorolac. VTE PROPHYLAXIS Per Orthopedic protocol. Thank you for this consultation. We will follow the patient with you during their hospital stay. You can reach a member of the [facility] via pager @ [phone]. You can reach me via cell @ [phone]. .
[2016-09-17] MEDS ORDERED: FERROUS GLUCONATE 324 MG TAB PO SCH (21:00)
[2016-09-17] MEDS: URSODIOL 300 MG CAP PO SCH ×2 (21:00→21:17)
[2016-09-17] MEDS: OXYCODONE HCL 10 MG TABCR (OXYCONTIN) PO SCH (21:16)
[2016-09-17] MEDS: hydrOXYzine HCL 25 MG TAB PO SCH (21:16)
[2016-09-17] MEDS: SENNA 8.6 MG TAB PO SCH (21:17)
[2016-09-17] MEDS: GABAPENTIN 300 MG CAP PO SCH (21:17)
[2016-09-17] MEDS: MICONAZOLE NITRATE POWDER 43 GM EXT SCH (21:18)
[2016-09-17] MEDS ORDERED: HYDROCORTISONE IV 50 MG in SYRINGE 0 ML IV STA (21:40)
[2016-09-18] VITALS (14 sets, daily range): BP systolic 78–106; BP diastolic 49–63; PULSE 52–66; TEMP 36.4–36.9; O2SAT 91–95
[2016-09-18] MEDS ORDERED: NURSING VERBAL MED ORDER ONE (02:45)
[2016-09-18] MEDS ORDERED: SODIUM CHLORIDE 0.9% 500ML 500 ML IV STA (02:52)
[2016-09-18] MEDS: POTASSIUM CHLORIDE INJ 10 MEQ in SODIUM CHLORIDE 0.9% 1000ML 1,000 ML IV SCH ×2 (04:19→14:03)
[2016-09-18 06:11] LABS: HEMATOCRIT 29.5 % (37-47); MEAN CELL VOLUME 91.9 fL (80-100); MEAN CORPUSCULAR HEMOGLOBIN 29.6 pg (25-34); MEAN CORPUSCULAR HGB CONC 32.2 g/dl (32-36); MEAN PLATELET VOLUME 11.1 fL (7.4-10.4); PLATELET COUNT 164 K/uL (130-400); RED BLOOD COUNT 3.21 M/uL (4.2-5.4)
[2016-09-18 06:12] LABS: INR 1.4 (0.9-1.1); PROTHROMBIN TIME (PATIENT) 14.9 SECONDS (9.0-12.0)
--- NOTE | 2016-09-18 06:36 | Orthopedic Progress Note ---
Orthopedic Progress Note Date of Service Sep 18, 2016. Subjective Post OP Day: 1 Reports: feeling well, pain controlled w PO medications, Denies: complaints, chest pain, SOB, nausea / vomiting, light headedness, calf pain Objective N/V intact, capillary refill less than 2 sec., dressing C/D/I, A&O x3 rad/median/ulnar nerves intact Date Time Temp Pulse Resp B/P (MAP) Pulse Ox O2 Delivery O2 Flow Rate FiO2 09/18/16 06:22 52 91/49 (63) 92 Nasal Cannula 3.0 09/18/16 04:10 95/52 (66) 09/18/16 02:55 36.4 59 16 92 Nasal Cannula 4.0 09/17/16 23:55 Nasal Cannula 4.0 09/17/16 23:16 36.4 50 15 93/51 (65) 94 Room Air 09/17/16 20:43 36.7 52 17 107/62 (77) 94 Nasal Cannula 4.0 09/17/16 19:30 36.5 53 14 105/72 (83) 95 Nasal Cannula 3.0 09/17/16 18:40 36.3 55 17 94/58 (70) 95 Nasal Cannula 4.0 09/17/16 18:05 36.4 55 16 92/62 (72) 95 Nasal Cannula 4.0 09/17/16 18:00 Nasal Cannula 3.0 09/17/16 17:30 Nasal Cannula 4.0 09/17/16 17:30 36.5 55 20 84/48 (60) 93 Nasal Cannula 4.0 09/17/16 17:30 93 Nasal Cannula 4.0 09/17/16 17:17 108/51 09/17/16 17:14 57 16 09/17/16 17:14 59 16 92 09/17/16 17:09 56 12 09/17/16 17:09 58 12 93 09/17/16 17:06 88/46 09/17/16 17:04 54 14 09/17/16 17:04 59 14 93 09/17/16 17:01 93/53 09/17/16 16:59 56 13 09/17/16 16:59 56 13 94 09/17/16 16:56 97/58 09/17/16 16:54 58 15 105/56 93 09/17/16 16:54 36.1 58 18 105/56 93 Nasal Cannula 3 09/17/16 16:54 56 15 09/17/16 16:51 83/47 09/17/16 16:50 87/43 09/17/16 16:49 56 13 09/17/16 16:49 13 09/17/16 16:46 90/50 09/17/16 16:44 54 14 09/17/16 16:44 56 14 93 09/17/16 16:41 84/53 09/17/16 16:39 55 14 93 09/17/16 16:39 55 14 09/17/16 16:36 94/56 09/17/16 16:34 58 17 94 09/17/16 16:34 55 17 09/17/16 16:32 87/54 09/17/16 16:29 55 13 09/17/16 16:29 57 13 97 09/17/16 16:27 116/46 09/17/16 16:24 57 15 97 09/17/16 16:24 57 15 09/17/16 16:21 97/48 09/17/16 16:19 58 14 09/17/16 16:19 58 14 97 09/17/16 16:17 98/64 09/17/16 16:14 57 14 98 09/17/16 16:14 57 14 09/17/16 16:12 109/64 09/17/16 16:09 59 124/61 98 09/17/16 16:09 59 09/17/16 16:09 36.1 64 16 124/61 98 Mask 10 09/17/16 10:20 36.7 60 22 125/68 94 Room Air Laboratory Results 24 Hours: Test 09/18/16 05:26 Hematocrit 29.5 % Hemoglobin 9.5 g/dL Prothromb Time International Ratio 1.4 Prothrombin Time 14.9 SECONDS Assessment & Plan Assessment: POD #1 s/p Right reverse total shoulder arthroplasty, removal of deep hardware right proximal humerus, debridement of olecranon ulcer right elbow PER MEDICAL TEAM: HISTORY PAROXYSMAL ATRIAL TACHYCARDIA- Continue propranolol. BILIARY CIRRHOSIS- Continue usual medications, Watch for hepatic encephalopathy. CHRONIC KIDNEY DISEASE Monitor creatinine. Avoid / minimize utilization of NSAID's, including ketorolac.
[2016-09-18 06:56] LABS: BUN/CREATININE RATIO 23.1 (10-20); CALCIUM 8.1 mg/dl (8.5-10.1); CREATININE 1.8 mg/dl (0.60-1.20); POTASSIUM 4.4 mmol/L (3.5-5.1)
[2016-09-18] MEDS ORDERED: PROPRANOLOL HCL 10 MG TAB PO SCH (09:00)
[2016-09-18] MEDS: OXYCODONE HCL 10 MG TABCR (OXYCONTIN) PO SCH (09:00)
[2016-09-18] MEDS ORDERED: SPIRONOLACTONE 25 MG TAB PO SCH (09:00)
[2016-09-18] MEDS: MICONAZOLE NITRATE POWDER 43 GM EXT SCH ×2 (09:10→20:48)
[2016-09-18] MEDS: PANTOprazole SOD 40 MG TAB PO SCH (09:10)
[2016-09-18] MEDS: MULTIVITAMIN TAB PO SCH (09:10)
[2016-09-18] MEDS: SERTRALINE HCL 50 MG TAB PO SCH (09:11)
[2016-09-18] MEDS: FERROUS GLUCONATE 324 MG TAB PO SCH ×3 (09:11→17:42)
[2016-09-18] MEDS: GABAPENTIN 300 MG CAP PO SCH (09:11)
[2016-09-18] MEDS: URSODIOL 300 MG CAP PO SCH ×2 (09:12→20:49)
[2016-09-18] MEDS ORDERED: SODIUM CHLORIDE 0.9% 500ML 500 ML IV SCH ×3 (11:30→20:00)
[2016-09-18] MEDS ORDERED: HYDROCORTISONE IV 50 MG in SYRINGE 0 ML IV ONE ×2 (12:00→22:00)
[2016-09-18] MEDS ORDERED: OXYCODONE HCL IR 5 MG TAB (IMMEDIATE RELEASE) PO PRN (16:15)
--- NOTE | 2016-09-18 20:11 | Progress Note ---
Medicine Progress Note Date & Time of Visit: Sep 18, 2016 at 11:20 . Subjective Somnolent. No fever. No chest pain. No cough or dyspnea. No nausea or vomiting. Postop pain well-controlled. . Objective Last 8 Hrs Date Time Temp Pulse Resp B/P (MAP) Pulse Ox O2 Delivery O2 Flow Rate FiO2 09/18/16 15:45 91 Nasal Cannula 3.0 09/18/16 15:19 100/63 (75) 09/18/16 15:03 36.7 56 16 91 Nasal Cannula 3.0 09/18/16 13:53 94/54 (67) 09/18/16 13:43 61 85/55 (65) Physical Exam: General- no acute distress Eyes- sclerae icteric Neck- no JVD Lungs- clear Heart- RRR, II/ systolic murmur at base Abdomen- + BS, soft, nontender Extremities- SCD's applied; trace pretibial edema Neuro- somnolent, conversant, confused; no significant asterixis . Laboratory Results: Last 24 Hours Test 09/18/16 05:26 White Blood Count 15.60 K/uL Red Blood Count 3.21 M/uL Hemoglobin 9.5 g/dL Hematocrit 29.5 % Mean Corpuscular Volume 91.9 fL Mean Corpuscular Hemoglobin 29.6 pg Mean Corpuscular Hemoglobin Concent 32.2 g/dl RDW Standard Deviation 56.0 fL RDW Coefficient of Variation 16.7 % Platelet Count 164 K/uL Mean Platelet Volume 11.1 fL Prothrombin Time 14.9 SECONDS Prothromb Time International Ratio 1.4 Sodium Level 139 mmol/L Potassium Level 4.4 mmol/L Chloride Level 105 mmol/L Carbon Dioxide Level 28 mmol/L Anion Gap 6.0 mmol/L Blood Urea Nitrogen 42 mg/dl Creatinine 1.80 mg/dl Est Creatinine Clear Calc Drug Dose 36.5 ml/min Estimated GFR () 35.3 Estimated GFR (Non- 30.5 BUN/Creatinine Ratio 23.1 Random Glucose 114 mg/dl Calcium Level 8.1 mg/dl Total Bilirubin 4.8 mg/dl Direct Bilirubin 3.7 mg/dl Aspartate Amino Transf (AST/SGOT) 61 U/L Alanine Aminotransferase (ALT/SGPT) 25 U/L Alkaline Phosphatase 270 U/L Total Protein 5.3 gm/dl Albumin 2.2 gm/dl Assessment & Plan S/P RIGHT REVERSE TOTAL SHOULDER ARTHROPLASTY, REMOVAL OF DEEP HARDWARE RIGHT PROXIMAL HUMERUS, DEBRIDEMENT OF OLECRANON ULCER RIGHT ELBOW Management per Ortho. HISTORY PAROXYSMAL ATRIAL TACHYCARDIA Continue propranolol. BILIARY CIRRHOSIS Continue usual medications. Watch for hepatic encephalopathy. CHRONIC STEROID THERAPY Chronic prednisone therapy for biliary cirrhosis. IV hydrocortisone given last evening; repeat dose today. CHRONIC KIDNEY DISEASE Serum creatinine today 1.8 compared to 0.97 on 08/11/16. IV fluids as ordered. Maintain adequate hydration. Avoid / minimize utilization of NSAID's, including ketorolac. HYPOTENSION BPs running relatively low today. Urine output low. IV fluids and hydrocortisone as ordered. Follow. SOMNOLENCE Probably secondary to prolonged effects anesthetic agents due to underlying hepatic disease. Hold gabapentin. Minimize use of analgesics. Hepatic encephalopathy may be a factor; start lactulose if no improvement. VTE PROPHYLAXIS Per Orthopedic protocol. Thank you for this consultation. We will follow the patient with you during their hospital stay. You [facility] via pager @ . You can reach me via cell @ [phone]. . Current Inpatient Medications: Current Inpatient Medications Medications (Trade) Dose Ordered Sig/Michael Route Start Time Stop Time Status Last Admin Dose Admin Diphenhydramine HCl (Benadryl Cap) 25 mg Q8 PRN PO 09/17/16 16:15 10/17/16 16:14 Zolpidem Tartrate (Ambien Tab) 5 mg HSZ PRN PO 09/17/16 16:15 10/17/16 16:14 Ondansetron HCl (Zofran Inj) 4 mg Q6H PRN IV 09/17/16 16:15 10/17/16 16:14 Al Hydroxide/Mg Hydroxide (Maalox Susp) 30 ml Q4H PRN PO 09/17/16 16:15 10/17/16 16:14 Pantoprazole Sodium (Protonix Tab) 40 mg QAM PO 09/18/16 09:00 10/18/16 08:59 09/18/16 09:10 40 MG Potassium Chloride 10 meq/ Sodium Chloride 1,005 ml @ 100 mls/hr Q10H3M IV 09/17/16 18:00 10/17/16 17:59 09/18/16 14:03 100 MLS/HR Magnesium Hydroxide (Milk Of Magnesia Susp) 30 ml Q6H PRN PO 09/17/16 16:15 10/17/16 16:14 Bisacodyl (Dulcolax Supp) 10 mg DAILY PRN UT 09/17/16 16:15 10/17/16 16:14 Sodium Biphosphate/ Sodium Phosphate (Fleet Enema) 132 ml DAILY PRN UT 09/17/16 16:15 10/17/16 16:14 Senna (Senokot Tab) 17.2 mg HS PO 09/17/16 21:00 10/17/16 20:59 09/17/16 21:17 17.2 MG Multivitamins (Multivitamin Tab) 1 tab DAILY PO 09/18/16 09:00 10/18/16 08:59 09/18/16 09:10 1 TAB Ferrous Gluconate (Ferrous Gluconate Tab) 324 mg TIDM PO 09/17/16 17:45 10/17/16 17:59 09/18/16 17:42 324 MG Gabapentin (Neurontin Cap) 300 mg TID PO 09/17/16 21:00 10/17/16 20:59 Future Hold 09/18/16 09:11 300 MG Hydroxyzine HCl (Vistaril Tab) 50 mg HS PO 09/17/16 21:00 10/17/16 20:59 09/17/16 21:16 50 MG Prednisone (PredniSONE TAB) 1 mg QAM PO 09/18/16 09:00 10/18/16 08:59 09/18/16 09:11 1 MG Propranolol HCl (Inderal Tab) 10 mg QAM PO 09/18/16 09:00 10/18/16 08:59 Future Hold Sertraline HCl (Zoloft Tab) 50 mg QAM PO 09/18/16 09:00 10/18/16 08:59 09/18/16 09:11 50 MG Ursodiol (Actigall Cap) 600 mg BID PO 09/17/16 21:00 10/17/16 20:59 09/18/16 09:12 600 MG Miconazole Nitrate (Desenex Powder) 1 appln BID EXT 09/17/16 21:00 10/17/16 20:59 09/18/16 09:10 1 APPLN Oxycodone HCl (Roxicodone Immediate Rel Tab) 5 mg Q4H PRN PO 09/18/16 16:15 10/01/16 16:14 Enteral Nutritional Formula (Boost) 1 can DAILY@1000,2100 PO 09/18/16 21:00 10/18/16 20:59 Sodium Chloride 500 ml @ 999 mls/hr Q31M IV 09/18/16 20:00 09/18/16 20:30 09/18/16 19:59 999 MLS/HR Hydrocortisone Sodium Succinate 50 mg/Syringe 1 ml @ 4 mls/min TODAY@2200 ONCE IV 09/18/16 22:00 09/18/16 22:01 UNV
[2016-09-18] MEDS: hydrOXYzine HCL 25 MG TAB PO SCH (20:49)
[2016-09-18] MEDS: SENNA 8.6 MG TAB PO SCH (20:49)
[2016-09-18] MEDS: BOOST VANILLA PO SCH ×2 (20:52)
[2016-09-19] VITALS (11 sets, daily range): BP systolic 88–139; BP diastolic 54–105; PULSE 62–73; TEMP 36.3–36.9; O2SAT 90–94
[2016-09-19] MEDS: POTASSIUM CHLORIDE INJ 10 MEQ in SODIUM CHLORIDE 0.9% 1000ML 1,000 ML IV SCH (00:13)
[2016-09-19] MEDS ORDERED: SODIUM CHLORIDE 0.9% 500ML 500 ML IV SCH (00:30)
--- NOTE | 2016-09-19 07:14 | Orthopedic Progress Note ---
Orthopedic Progress Note Date of Service Sep 19, 2016. Subjective Post OP Day: 2 Reports: pain controlled w PO medications, Denies: chest pain, SOB, nausea / vomiting, light headedness, calf pain Objective N/V intact, capillary refill less than 2 sec., dressing C/D/I, A&O x3 rad/med/ulnar nerves intact. dressing intact to right elbow Date Time Temp Pulse Resp B/P (MAP) Pulse Ox O2 Delivery O2 Flow Rate FiO2 09/19/16 06:07 36.3 64 17 112/72 (85) 91 Nasal Cannula 4.0 09/19/16 04:01 64 139/105 (116) 91 Nasal Cannula 4.0 09/19/16 02:03 65 88/54 (65) 93 Nasal Cannula 4.0 09/19/16 00:00 36.3 63 16 92/55 (67) 91 Nasal Cannula 4.0 09/18/16 23:55 Nasal Cannula 4.0 09/18/16 22:05 66 95/58 (70) 92 3.0 09/18/16 20:08 63 106/62 (77) 93 Nasal Cannula 3.0 09/18/16 15:45 91 Nasal Cannula 3.0 09/18/16 15:19 100/63 (75) 09/18/16 15:03 36.7 56 16 91 Nasal Cannula 3.0 09/18/16 13:53 94/54 (67) 09/18/16 13:43 61 85/55 (65) 09/18/16 11:14 92/56 (68) 09/18/16 11:01 36.9 53 18 82/54 (63) 95 Nasal Cannula 3.0 09/18/16 07:45 92/51 (65) 09/18/16 07:45 Nasal Cannula 4.0 Laboratory Results 24 Hours: Test 09/19/16 04:44 Assessment & Plan Assessment: POD #2 s/p Right reverse total shoulder arthroplasty, removal of deep hardware right proximal humerus, debridement of olecranon ulcer right elbow PER MEDICAL TEAM: HISTORY PAROXYSMAL ATRIAL TACHYCARDIA- Continue propranolol. BILIARY CIRRHOSIS- Continue usual medications, Watch for hepatic encephalopathy. CHRONIC KIDNEY DISEASE Monitor creatinine. IV Fluids ordered. encouraged PO fluids, maintain hydration. Avoid / minimize utilization of NSAID's, including ketorolac. HYPOTENSION BPs running relatively low today. Urine output low. IV fluids and hydrocortisone as ordered. Discharge Planning Discharge Planning: uncertain
[2016-09-19 08:21] LABS: HEMATOCRIT 30.1 % (37-47); MEAN CELL VOLUME 91.5 fL (80-100); MEAN CORPUSCULAR HEMOGLOBIN 28.9 pg (25-34); MEAN CORPUSCULAR HGB CONC 31.6 g/dl (32-36); MEAN PLATELET VOLUME 11.2 fL (7.4-10.4); PLATELET COUNT 209 K/uL (130-400); RED BLOOD COUNT 3.29 M/uL (4.2-5.4); WHITE BLOOD COUNT 22.59 K/uL (4.8-10.8)
[2016-09-19] MEDS: MULTIVITAMIN TAB PO SCH (08:27)
[2016-09-19] MEDS: FERROUS GLUCONATE 324 MG TAB PO SCH ×3 (08:27→17:39)
[2016-09-19] MEDS: PANTOprazole SOD 40 MG TAB PO SCH (08:28)
[2016-09-19] MEDS: PROPRANOLOL HCL 10 MG TAB PO SCH (08:28)
[2016-09-19] MEDS: SERTRALINE HCL 50 MG TAB PO SCH (08:28)
[2016-09-19] MEDS: URSODIOL 300 MG CAP PO SCH ×2 (08:28→21:19)
[2016-09-19] MEDS: MICONAZOLE NITRATE POWDER 43 GM EXT SCH ×2 (08:29→21:18)
[2016-09-19 08:31] LABS: INR 1.6 (0.9-1.1); PROTHROMBIN TIME (PATIENT) 17.6 SECONDS (9.0-12.0)
[2016-09-19 08:59] LABS: BUN/CREATININE RATIO 21.6 (10-20); CALCIUM 7.4 mg/dl (8.5-10.1); CREATININE 2.4 mg/dl (0.60-1.20); POTASSIUM 4.5 mmol/L (3.5-5.1)
[2016-09-19] MEDS ORDERED: SODIUM CHLORIDE 0.9% 1000ML 1,000 ML IV SCH (09:45)
--- NOTE | 2016-09-19 10:19 | DIAGNOSTIC IMAGING REPORT ---
CHEST ONE VIEW PORTABLE HISTORY: Short of breath. acute kidney injury COMPARISON: Chest 08/03/2016. FINDINGS: Postoperative changes within the bilateral shoulders. There are skin maricarmen within the right shoulder. Persistent elevation of the right hemidiaphragm. The heart remains mildly enlarged. No pneumothorax. No pleural effusions. Bibasilar linear densities. Patchy groundglass airspace opacities within the right lung. The left lung airspace opacities on the prior study have resolved. IMPRESSION: 1. Patchy groundglass airspace opacities within the right lung which are similar to the prior study. This could represent asymmetric pulmonary edema or a pneumonia. 2. Bibasilar linear densities favor atelectasis. 3. Stable mild cardiomegaly. Electronically signed by: Zachary Clark M.D. 09/19/2016 10:17 AM Dictated Date/Time: 09/19/2016 10:16 AM
[2016-09-19] MEDS: BOOST VANILLA PO SCH ×4 (10:21→21:17)
[2016-09-19] MEDS ORDERED: FUROSEMIDE INJ 40 MG in SYRINGE 0 ML IV ONE (10:30)
[2016-09-19] MEDS: HYDROCORTISONE IV 25 MG in SYRINGE 0 ML IV SCH ×2 (13:54→21:19)
[2016-09-19 16:27] LABS: URINE APPEARANCE CLOUDY (CLEAR); URINE BILIRUBIN NEG (NEG); URINE COLOR DK YELLOW; URINE NITRITE NEG (NEG); URINE SPECIFIC GRAVITY 1.016 (1.000-1.030); UROBILINOGEN NEG (NEG)
[2016-09-19 16:32] LABS: MANUAL MICROSCOPIC REQUIRED? NO; REVIEW REQ? NO
[2016-09-19] MEDS: ALBUMIN HUMAN 25% 12.5 GM/50 ML VIAL IV SCH ×3 (17:05→23:44)
[2016-09-19] MEDS ORDERED: MIDODRINE 2.5 MG TAB PO ONE (17:16)
[2016-09-19 17:20] LABS: BUN/CREATININE RATIO 22.6 (10-20); CREATININE 2.3 mg/dl (0.60-1.20); POTASSIUM 4.8 mmol/L (3.5-5.1)
[2016-09-19] MEDS ORDERED: OCTREOTIDE ACETATE 100 MCG/ML VIAL SQ SCH (17:30)
[2016-09-19] MEDS: MIDODRINE 2.5 MG TAB PO SCH (18:27)
[2016-09-19] MEDS ORDERED: POLYETHYLENE (MIRALAX) 17 GM PACK PO PRN (19:30)
--- NOTE | 2016-09-19 19:54 | NEPHROLOGY CONSULTATION ---
DATE OF CONSULTATION: 09/19/2016 REASON FOR CONSULT: Acute renal failure in a patient with biliary cirrhosis. HISTORY OF PRESENT ILLNESS: The patient is a 60-year-old female who is followed by Dr. Witt in [place] for primary care and Dr. Agosto from hepatology at [facility] in [place]. She had surgery done in her right shoulder with complicated arthroplasty. She was doing well postoperatively otherwise. Her blood pressure yesterday multiple times was low. Creatinine yesterday was 1.8, this morning went up to 2.4. She does have abnormal LFT with a bilirubin of 4.8. Earlier today, she was getting IV fluid 200 mL per hour, but she does have significant lower extremity edema. She also got Lasix, the last dose being 6 hours ago, 40 mg dose; however, her urine output has not been good, she has only made 70 mL of urine since the IV Lasix. She is awake and alert but very weak. PAST MEDICAL AND SURGICAL HISTORY: Aside this biliary cirrhosis, chronic kidney disease stage III with a fluctuating creatinine. I see her baseline creatinine is more mid to high 1s. History of esophageal varices, atrial tachycardia, osteoarthritis, portal hypertension, multiple shoulder surgeries. FAMILY HISTORY: Positive for diabetes, heart disease, asthma SOCIAL HISTORY: Never smoked. No alcohol. Disabled. ALLERGY LIST: Reviewed. HOME MEDICATION LIST: Also reviewed. She does take Lasix as well as spironolactone. Also takes vitamin D, ferrous sulfate, Atarax, Inderal, ursodiol, Neurontin, Zoloft and prednisone 1 mg daily. Inpatient medication list was also reviewed. It appears she did get ketorolac with the last dose being on 09/17/2016. REVIEW OF SYSTEMS: No fever, chills, rigors. She does have chronic shortness of breath. No nausea, vomiting, abdominal pain or diarrhea at this time. She does have pain at her surgical site. No dysuria. PHYSICAL EXAMINATION: GENERAL: No obvious respiratory distress. She looks a lot older than her stated age. HEENT: Jaundice positive. Mucous membrane is moist. NECK: Supple. No jugular venous distention. CHEST: Bilateral decreased breath sounds. Occasional crackles. CARDIOVASCULAR: Regular rate and rhythm, 2/6 systolic murmur. ABDOMEN: Soft, nontender. Minimal ascites noted. EXTREMITIES: Bilateral 2+ edema, pitting type, noted. ASSESSMENT AND PLAN: A 60-year-old female with known biliary cirrhosis, now is status post right shoulder surgery and has developed postop acute renal failure with the creatinine going from 1.8-2.4 now; Labs: however, her most recent blood work showed a creatinine of 0.97 as of 08/11/2016, but she has had very fluctuating baseline creatinine in the past as expected in a patient with biliary cirrhosis. Chest x-ray shows patchy ground-glass opacities, bibasilar linear densities, stable mild cardiomegaly, acute kidney injury. The patient has biliary cirrhosis, so the differential diagnosis for acute renal failure is pretty broad and includes acute tubular necrosis, pure volume depletion and hepatorenal syndrome as well as other causes of acute renal failure. Her urine sediment which was done just now is fairly active with lots of casts and sediments and abnormal cells. This can be consistent with acute tubular necrosis. She is not making a lot of urine despite getting fluids as well as IV Lasix earlier today. This is again not a good sign and could signify further worsening of renal failure. She does not have volume depletion. She has 2 to 3+ edema in her lower extremity and has received a lot of fluid. I agree with stopping the IV fluid. As for the hepatorenal syndrome, we need further testing. Her urine sodium is less than 10, so that is consistent; however, the urine sediment is normally bland in hepatorenal, but she has more active sediment. We would give her 25% albumin q. 6 hour x4 to make it a 100-gram challenge dose. It is also not unreasonable to empirically treat as if she has hepatorenal as there is no definitive treatment for acute tubular necrosis anyway. We can give her octreotide q. 8 hour, 100 mcg, and also give midodrine 5 mg q. 8 hour. Continue to do labs on a daily basis. Thank you very much. MTDD
--- NOTE | 2016-09-19 20:23 | Progress Note ---
Medicine Progress Note Date & Time of Visit: Sep 19, 2016 at 09:30 . Subjective Initially seen at 9:30 and re-evaluated throughout the day. Received NSS bolus x 2 during the night for low urine output. More alert. No fever. No cough or SOB. No chest pain. No nausea or vomiting. No bowel movement. Still has Esposito cath. Has some postop pain RUE. . Objective Last 8 Hrs Date Time Temp Pulse Resp B/P (MAP) Pulse Ox O2 Delivery O2 Flow Rate FiO2 09/19/16 18:57 36.8 68 26 103/62 (76) 94 Nasal Cannula 4.0 09/19/16 16:46 36.7 73 16 93 4.0 09/19/16 16:35 36.9 66 20 89/57 (68) 90 Nasal Cannula 4.0 09/19/16 16:35 Nasal Cannula 4.0 09/19/16 15:45 93 Nasal Cannula 4.0 09/19/16 15:23 36.7 73 16 104/59 (74) 93 Nasal Cannula 4.0 09/19/16 13:49 100/66 (77) 09/19/16 12:55 36.3 62 16 88/58 (68) 90 Nasal Cannula 3.0 Physical Exam: General- no acute distress Eyes- sclerae icteric Neck- + JVD Lungs- few basilar rales Heart- RRR, II/ systolic murmur at base Abdomen- + BS, slightly distended, soft, nontender Extremities- SCD's applied; 1+ pretibial edema Neuro- more alert . Laboratory Results: Last 24 Hours Test 09/19/16 07:42 09/19/16 16:10 09/19/16 16:25 White Blood Count 22.59 K/uL Red Blood Count 3.29 M/uL Hemoglobin 9.5 g/dL Hematocrit 30.1 % Mean Corpuscular Volume 91.5 fL Mean Corpuscular Hemoglobin 28.9 pg Mean Corpuscular Hemoglobin Concent 31.6 g/dl RDW Standard Deviation 56.6 fL RDW Coefficient of Variation 16.8 % Platelet Count 209 K/uL Mean Platelet Volume 11.2 fL Prothrombin Time 17.6 SECONDS Prothromb Time International Ratio 1.6 Sodium Level 137 mmol/L 138 mmol/L Potassium Level 4.5 mmol/L 4.8 mmol/L Chloride Level 108 mmol/L 108 mmol/L Carbon Dioxide Level 22 mmol/L 20 mmol/L Anion Gap 7.0 mmol/L 10.0 mmol/L Blood Urea Nitrogen 52 mg/dl 52 mg/dl Creatinine 2.40 mg/dl 2.30 mg/dl Est Creatinine Clear Calc Drug Dose 27.4 ml/min 28.6 ml/min Estimated GFR () 25.0 26.3 Estimated GFR (Non- 21.5 22.7 BUN/Creatinine Ratio 21.6 22.6 Random Glucose 134 mg/dl 136 mg/dl Calcium Level 7.4 mg/dl 7.0 mg/dl Urine Color DK YELLOW Urine Appearance CLOUDY Urine pH 5.0 Urine Specific Malone 1.016 Urine Protein 1+ Urine Glucose (UA) NEG Urine Ketones TRACE Urine Occult Blood 3+ Urine Nitrite NEG Urine Bilirubin NEG Urine Urobilinogen NEG Urine Leukocyte Esterase MODERATE Urine WBC (Auto) 10-30 /hpf Urine RBC (Auto) >30 /hpf Urine Hyaline Casts (Auto) 5-10 /lpf Urine Epithelial Cells (Auto) 10-20 /lpf Urine Bacteria (Auto) NEG Urine Random Creatinine 97.0 mg/dl Urine Random Sodium 8 mEq/L Diagnostic Imaging: CHEST ONE VIEW PORTABLE FINDINGS: Postoperative changes within the bilateral shoulders. There are skin maricarmen within the right shoulder. Persistent elevation of the right hemidiaphragm. The heart remains mildly enlarged. No pneumothorax. No pleural effusions. Bibasilar linear densities. Patchy groundglass airspace opacities within the right lung. The left lung airspace opacities on the prior study have resolved. IMPRESSION: 1. Patchy groundglass airspace opacities within the right lung which are similar to the prior study. This could represent asymmetric pulmonary edema or a pneumonia. 2. Bibasilar linear densities favor atelectasis. 3. Stable mild cardiomegaly. Electronically signed by: Zachary Clark M.D. 09/19/2016 10:17 AM Dictated Date/Time: 09/19/2016 10:16 AM . Assessment & Plan S/P RIGHT REVERSE TOTAL SHOULDER ARTHROPLASTY, REMOVAL OF DEEP HARDWARE RIGHT PROXIMAL HUMERUS, DEBRIDEMENT OF OLECRANON ULCER RIGHT ELBOW Management per Ortho. HISTORY PAROXYSMAL ATRIAL TACHYCARDIA Continue propranolol. BILIARY CIRRHOSIS Continue usual medications. Watch for hepatic encephalopathy. CHRONIC STEROID THERAPY Chronic prednisone therapy for biliary cirrhosis. IV hydrocortisone given last evening; repeat dose today. CARLOS ENRIQUE / CHRONIC KIDNEY DISEASE III Serum creatinine 0.97 on 08/11/16. Creatinine yesterday was 1.8. Ketorolac discontinued. Received IV fluid resuscitation + hydrocortisone. Creatinine today 2.4. Oliguric. Possible hepatorenal syndrome. Discuss with GI and Nephrology. HYPOTENSION BPs relatively low yesterday. Received IV fluids and hydrocortisone with improvement. Follow. SOMNOLENCE Probably secondary to prolonged effects anesthetic agents due to underlying hepatic disease. Holding gabapentin. Improved. LEUKOCYTOSIS WBC 22,590. Probably secondary to IV hydrocortisone. Afebrile. Chest x-ray as noted above- similar to previous imaging, no apparent acute infiltrates. Check UA. PULMONARY ATELECTASIS Incentive spirometry. VTE PROPHYLAXIS Per Orthopedic protocol. Family visiting later in the day and given update. Case discussed with GI and Nephrology. Start albumin, midodrine, octreotide for hepatorenal syndrome. Transferred to Telemetry Unit for monitoring. Thank you for this consultation. We will follow the patient with you during their hospital stay. You can reach a member of the [facility] Hospitalist Team 30/08 via pager @ . You can reach me via cell @ [phone]. . Current Inpatient Medications: Current Inpatient Medications Medications (Trade) Dose Ordered Sig/Michael Route Start Time Stop Time Status Last Admin Dose Admin Ondansetron HCl (Zofran Inj) 4 mg Q6H PRN IV 09/17/16 16:15 10/17/16 16:14 Al Hydroxide/Mg Hydroxide (Maalox Susp) 30 ml Q4H PRN PO 09/17/16 16:15 10/17/16 16:14 Pantoprazole Sodium (Protonix Tab) 40 mg QAM PO 09/18/16 09:00 10/18/16 08:59 09/19/16 08:28 40 MG Magnesium Hydroxide (Milk Of Magnesia Susp) 30 ml Q6H PRN PO 09/17/16 16:15 10/17/16 16:14 Bisacodyl (Dulcolax Supp) 10 mg DAILY PRN ID 09/17/16 16:15 10/17/16 16:14 Sodium Biphosphate/ Sodium Phosphate (Fleet Enema) 132 ml DAILY PRN ID 09/17/16 16:15 10/17/16 16:14 Senna (Senokot Tab) 17.2 mg HS PO 09/17/16 21:00 10/17/16 20:59 09/18/16 20:49 17.2 MG Multivitamins (Multivitamin Tab) 1 tab DAILY PO 09/18/16 09:00 10/18/16 08:59 09/19/16 08:27 1 TAB Ferrous Gluconate (Ferrous Gluconate Tab) 324 mg TIDM PO 09/17/16 17:45 10/17/16 17:59 09/19/16 17:39 324 MG Gabapentin (Neurontin Cap) 300 mg TID PO 09/17/16 21:00 10/17/16 20:59 Future Hold 09/18/16 09:11 300 MG Hydroxyzine HCl (Vistaril Tab) 50 mg HS PO 09/17/16 21:00 10/17/16 20:59 09/18/16 20:49 50 MG Prednisone (PredniSONE TAB) 1 mg QAM PO 09/18/16 09:00 10/18/16 08:59 09/19/16 08:28 1 MG Sertraline HCl (Zoloft Tab) 50 mg QAM PO 09/18/16 09:00 10/18/16 08:59 09/19/16 08:28 50 MG Ursodiol (Actigall Cap) 600 mg BID PO 09/17/16 21:00 10/17/16 20:59 09/19/16 08:28 600 MG Miconazole Nitrate (Desenex Powder) 1 appln BID EXT 09/17/16 21:00 10/17/16 20:59 09/19/16 08:29 1 APPLN Oxycodone HCl (Roxicodone Immediate Rel Tab) 5 mg Q4H PRN PO 09/18/16 16:15 10/01/16 16:14 Enteral Nutritional Formula (Boost) 1 can DAILY@1000,2100 PO 09/18/16 21:00 10/18/16 20:59 09/19/16 10:21 1 CAN Propranolol HCl (Inderal Tab) 10 mg QAM PO 09/19/16 09:00 10/18/16 08:59 Hydrocortisone Sodium Succinate 25 mg/Syringe 0.5 ml @ 4 mls/min Q8 IV 09/19/16 14:00 10/19/16 13:59 09/19/16 13:54 4 MLS/MIN Albumin Human (Albumin 25%) 25 gm Q8 IV 09/19/16 23:00 09/22/16 22:59 Midodrine (Proamatine Tab) 5 mg TID@0800,1200,1800 PO 09/19/16 18:00 10/19/16 17:59 09/19/16 18:27 5 MG Octreotide Acetate (Sandostatin Inj) 100 mcg Q8 IV 09/19/16 22:00 10/19/16 21:59 Polyethylene (Miralax Powder Packet) 17 gm DAILY PRN PO 09/19/16 19:30 10/19/16 19:29 Lactulose (Chronulac Syrup) 30 gm BID PO 09/19/16 21:00 10/19/16 20:59
[2016-09-19] MEDS: LACTULOSE SYRUP 30 GM/45 ML UDP PO SCH (21:18)
[2016-09-19] MEDS: OCTREOTIDE ACETATE 100 MCG/ML VIAL IV SCH (21:18)
[2016-09-19] MEDS: hydrOXYzine HCL 25 MG TAB PO SCH (21:19)
[2016-09-19] MEDS: SENNA 8.6 MG TAB PO SCH (21:20)
[2016-09-19] MEDS ORDERED: CEFTRIAXONE SOD INJ 1 GM in DEXTROSE 5% ADD-VANTAGE 50ML 50 ML IV SCH (22:00)
[2016-09-20] VITALS (56 sets, daily range): BP systolic 76–148; BP diastolic 36–93; PULSE 63–84; TEMP 36–37.1; O2SAT 86–100
[2016-09-20] MEDS: HYDROCORTISONE IV 25 MG in SYRINGE 0 ML IV SCH ×2 (05:44→17:02)
[2016-09-20] MEDS: ALBUMIN HUMAN 25% 12.5 GM/50 ML VIAL IV SCH (05:45)
[2016-09-20 05:46] LABS: HEMATOCRIT 28.1 % (37-47); MEAN CELL VOLUME 90.1 fL (80-100); MEAN CORPUSCULAR HEMOGLOBIN 29.2 pg (25-34); MEAN CORPUSCULAR HGB CONC 32.4 g/dl (32-36); MEAN PLATELET VOLUME 10.7 fL (7.4-10.4); PLATELET COUNT 182 K/uL (130-400); RED BLOOD COUNT 3.12 M/uL (4.2-5.4); WHITE BLOOD COUNT 18.56 K/uL (4.8-10.8)
[2016-09-20] MEDS: OCTREOTIDE ACETATE 100 MCG/ML VIAL IV SCH ×3 (05:49→22:21)
[2016-09-20 06:20] LABS: BUN/CREATININE RATIO 24.8 (10-20); CALCIUM 7.6 mg/dl (8.5-10.1); CREATININE 2.3 mg/dl (0.60-1.20); MAGNESIUM 2.2 mg/dl (1.8-2.4); POTASSIUM 4.5 mmol/L (3.5-5.1)
[2016-09-20 06:29] LABS: ALB/GLOB RATIO 1.1 (0.9-2)
--- NOTE | 2016-09-20 07:54 | Orthopedic Progress Note ---
Orthopedic Progress Note Date of Service Sep 20, 2016. Subjective Post OP Day: 3 Additional Notes: Patient was nonverbal on exam today. Her oxygen stats were 80% on 4L of O2. She was given a mask with 15L of O2 and jumped up to 91%. She did soil herself this morning upon exam. Objective calves soft nontender, capillary refill less than 2 sec., dressing C/D/I, toes mobile, hemovac drainage (10cc) Patient was sleepy but easily awoken with verbal commands. She was nonverbal during the exam. dressings were c/d/i. Date Time Temp Pulse Resp B/P (MAP) Pulse Ox O2 Delivery O2 Flow Rate FiO2 09/20/16 04:00 Nasal Cannula 4.0 09/20/16 03:55 36.8 71 22 108/57 (74) 90 Nasal Cannula 4.0 09/20/16 00:00 36.7 65 21 105/51 (69) 90 Nasal Cannula 4.0 09/20/16 00:00 Nasal Cannula 4.0 09/19/16 20:00 Nasal Cannula 4.0 09/19/16 18:57 36.8 68 26 103/62 (76) 94 Nasal Cannula 4.0 09/19/16 16:46 36.7 73 16 93 4.0 09/19/16 16:35 36.9 66 20 89/57 (68) 90 Nasal Cannula 4.0 09/19/16 16:35 Nasal Cannula 4.0 09/19/16 15:45 93 Nasal Cannula 4.0 09/19/16 15:23 36.7 73 16 104/59 (74) 93 Nasal Cannula 4.0 09/19/16 13:49 100/66 (77) 09/19/16 12:55 36.3 62 16 88/58 (68) 90 Nasal Cannula 3.0 09/19/16 08:00 101/67 (78) Laboratory Results 24 Hours: Test 09/20/16 05:15 Hematocrit 28.1 % Hemoglobin 9.1 g/dL Assessment & Plan Assessment: POD #3 s/p Right reverse total shoulder arthroplasty, removal of deep hardware right proximal humerus, debridement of olecranon ulcer right elbow PER MEDICAL TEAM: HISTORY PAROXYSMAL ATRIAL TACHYCARDIA- Continue propranolol. BILIARY CIRRHOSIS- Continue usual medications, Watch for hepatic encephalopathy. CHRONIC KIDNEY DISEASE Monitor creatinine. IV Fluids ordered. encouraged PO fluids, maintain hydration. Avoid / minimize utilization of NSAID's, including ketorolac. HYPOTENSION BPs running relatively low today. Urine output low. IV fluids and hydrocortisone as ordered. Dr. Guy was consulted due to oxygen desaturation. Discharge Planning Discharge Planning: uncertain
[2016-09-20] MEDS: MIDODRINE 2.5 MG TAB PO SCH ×3 (08:00→17:26)
[2016-09-20] MEDS ORDERED: MIDODRINE 2.5 MG TAB PO SCH (08:00)
[2016-09-20] MEDS ORDERED: LEVALBUTEROL 0.63MG/3 ML NEB INH ONE (08:16)
[2016-09-20] MEDS ORDERED: FUROSEMIDE INJ 80 MG in SYRINGE 0 ML IV ONE (08:30)
[2016-09-20] MEDS ORDERED: LEVALBUTEROL 0.63MG/3 ML NEB INH PRN (08:30)
--- NOTE | 2016-09-20 08:36 | DIAGNOSTIC IMAGING REPORT ---
SINGLE VIEW CHEST CLINICAL HISTORY: Hypoxia. FINDINGS: An AP, portable, upright chest radiograph is compared to chest x-ray dated 09/19/2016 and correlated with chest CT dated 07/27/2016. The examination is significantly degraded by portable technique and patient rotation. The heart is mildly enlarged. There are diffuse bilateral airspace opacities, which are increasingly confluent as compared to yesterday. There is chronic elevation of right diaphragm with associated atelectasis. Small pleural effusions are identified. No pneumothorax is seen. The skeletal structures are osteopenic. Chronic posterior matter deformity and postoperative change is seen in the proximal humeri. Skin clips project over the right shoulder. A TIPS catheter projects over the liver. IMPRESSION: 1. Increasing bilateral airspace opacities as compared to yesterday. Differential considerations include pulmonary edema, multifocal pneumonia, pulmonary hemorrhage, and/or ARDS. Clinical correlation will be required. 2. Small pleural effusions. Electronically signed by: Hung Montiel M.D. 09/20/2016 8:35 AM Dictated Date/Time: 09/20/2016 8:33 AM
[2016-09-20] MEDS ORDERED: FENTANYL CITRATE 100 MCG 2 ML CARP IV ONE (08:46)
[2016-09-20 08:49] LABS: ALLEN TEST POS (POS); ARTERIAL BLD GAS O2 SATURATION 90.9 % (90-95); ARTERIAL BLOOD GAS BASE EXCESS -6.2 mEq/L (-9-1.8); ARTERIAL BLOOD GAS HCO3 22 mmol/L (19-24); ARTERIAL BLOOD GAS PO2 77 mm/Hg (80-95); ARTERIAL BLOOD GAS pH 7.21 (7.35-7.45); O2 ADMINISTRATION 15L
[2016-09-20] MEDS: PROPRANOLOL HCL 10 MG TAB PO SCH (09:00)
[2016-09-20] MEDS ORDERED: ALBUMIN HUMAN 25% 12.5 GM/50 ML VIAL IV SCH (09:00)
[2016-09-20] MEDS: LACTULOSE SYRUP 30 GM/45 ML UDP PO SCH (09:00)
[2016-09-20] MEDS: URSODIOL 300 MG CAP PO SCH (09:00)
[2016-09-20] MEDS: SERTRALINE HCL 50 MG TAB PO SCH (09:00)
[2016-09-20] MEDS: PANTOprazole SOD 40 MG TAB PO SCH (09:00)
[2016-09-20] MEDS: MICONAZOLE NITRATE POWDER 43 GM EXT SCH ×2 (09:00→21:51)
[2016-09-20] MEDS: MULTIVITAMIN TAB PO SCH (09:00)
--- NOTE | 2016-09-20 09:32 | Progress Note ---
Medicine Progress Note Date & Time of Visit: Sep 20, 2016 at 08:10 . Subjective Afebrile. O2 sats dropped to 80's this morning. More tachypneic. Urine output over last 3 shifts 150 mls/shift. Vomited last night. Diarrhea this morning (received lactulose last night). More lethargic. . Objective Last 8 Hrs Date Time Temp Pulse Resp B/P (MAP) Pulse Ox O2 Delivery O2 Flow Rate FiO2 09/20/16 09:06 83 17 94 BiPAP/CPAP 60 09/20/16 09:06 83 94 60 09/20/16 07:07 37.1 75 20 138/85 (102) 91 09/20/16 04:00 Nasal Cannula 4.0 09/20/16 03:55 36.8 71 22 108/57 (74) 90 Nasal Cannula 4.0 Physical Exam: General- tachypneic Eyes- sclerae icteric Neck- + JVD Lungs- basilar rales, diffuse wheezing Heart- RRR with occasional ectopy, II/ systolic murmur at base, no gallop appreciated Abdomen- + BS, slightly distended, soft, nontender Extremities- SCD's applied; 2-3+ pretibial and pedal edema Neuro- lethargic . Laboratory Results: Last 24 Hours Test 09/19/16 16:10 09/19/16 16:25 09/20/16 05:15 09/20/16 08:31 Urine Color DK YELLOW Urine Appearance CLOUDY Urine pH 5.0 Urine Specific [place] 1.016 Urine Protein 1+ Urine Glucose (UA) NEG Urine Ketones TRACE Urine Occult Blood 3+ Urine Nitrite NEG Urine Bilirubin NEG Urine Urobilinogen NEG Urine Leukocyte Esterase MODERATE Urine WBC (Auto) 10-30 /hpf Urine RBC (Auto) >30 /hpf Urine Hyaline Casts (Auto) 5-10 /lpf Urine Epithelial Cells (Auto) 10-20 /lpf Urine Bacteria (Auto) NEG Urine Random Creatinine 97.0 mg/dl Urine Random Sodium 8 mEq/L Sodium Level 138 mmol/L 138 mmol/L Potassium Level 4.8 mmol/L 4.5 mmol/L Chloride Level 108 mmol/L 107 mmol/L Carbon Dioxide Level 20 mmol/L 23 mmol/L Anion Gap 10.0 mmol/L 8.0 mmol/L Blood Urea Nitrogen 52 mg/dl 57 mg/dl Creatinine 2.30 mg/dl 2.30 mg/dl Est Creatinine Clear Calc Drug Dose 28.6 ml/min 28.6 ml/min Estimated GFR () 26.3 26.3 Estimated GFR (Non- 22.7 22.7 BUN/Creatinine Ratio 22.6 24.8 Random Glucose 136 mg/dl 131 mg/dl Calcium Level 7.0 mg/dl 7.6 mg/dl White Blood Count 18.56 K/uL Red Blood Count 3.12 M/uL Hemoglobin 9.1 g/dL Hematocrit 28.1 % Mean Corpuscular Volume 90.1 fL Mean Corpuscular Hemoglobin 29.2 pg Mean Corpuscular Hemoglobin Concent 32.4 g/dl RDW Standard Deviation 54.0 fL RDW Coefficient of Variation 16.4 % Platelet Count 182 K/uL Mean Platelet Volume 10.7 fL Magnesium Level 2.2 mg/dl Total Bilirubin 3.9 mg/dl Aspartate Amino Transf (AST/SGOT) 65 U/L Alanine Aminotransferase (ALT/SGPT) 13 U/L Alkaline Phosphatase 253 U/L Total Protein 5.7 gm/dl Albumin 3.0 gm/dl Globulin 2.7 gm/dl Albumin/Globulin Ratio 1.1 Arterial Blood pH 7.21 Arterial Blood Partial Pressure CO2 55 mmHg Arterial Blood Partial Pressure O2 77 mm/Hg Arterial Blood HCO3 22 mmol/L Arterial Blood Oxygen Saturation 90.9 % Arterial Blood Base Excess -6.2 mEq/L Arterial Blood Gas Delivery 15L Amado Test POS Date/Time Source Procedure Growth Status 09/20/16 08:18 Stool C.difficile Toxin B Gene (PCR) Pending Ordered Diagnostic Imaging: Chest x-ray reviewed by the undersigned and interpreted formally by Radiology: SINGLE VIEW CHEST CLINICAL HISTORY: Hypoxia. FINDINGS: An AP, portable, upright chest radiograph is compared to chest x-ray dated 09/19/2016 and correlated with chest CT dated 07/27/2016. The examination is significantly degraded by portable technique and patient rotation. The heart is mildly enlarged. There are diffuse bilateral airspace opacities, which are increasingly confluent as compared to yesterday. There is chronic elevation of right diaphragm with associated atelectasis. Small pleural effusions are identified. No pneumothorax is seen. The skeletal structures are osteopenic. Chronic posterior matter deformity and postoperative change is seen in the proximal humeri. Skin clips project over the right shoulder. A TIPS catheter projects over the liver. IMPRESSION: 1. Increasing bilateral airspace opacities as compared to yesterday. Differential considerations include pulmonary edema, multifocal pneumonia, pulmonary hemorrhage, and/or ARDS. Clinical correlation will be required. 2. Small pleural effusions. Electronically signed by: Hung Montiel M.D. 09/20/2016 8:35 AM Dictated Date/Time: 09/20/2016 8:33 AM . Assessment & Plan ACUTE HYPOXIC AND HYPERCAPNIC RESPIRATORY FAILURE Most likely secondary to volume overload. Chest x-ray shows bilateral infiltrates, probably pulmonary edema (although other processes are possible). ABG on 15 L Oxymask: Item Value Date Time Arterial Blood Partial Pressure O2 77 mm/Hg L 09/20/16 0831 Arterial Blood Partial Pressure CO2 55 mmHg H 09/20/16 0831 Arterial Blood HCO3 22 mmol/L 09/20/16 0831 Arterial Blood pH 7.21 L 09/20/16 0831 IV furosemide ordered for fluid overload. Levalbuterol neb ordered for bronchospasm. BiPAP ordered for ventilatory support. Check repeat ABG in about 1 hour. May need intubation / mech ventilation if no improvement. PULMONARY EDEMA Probably secondary to acute left ventricular diastolic heart failure + fluid overload. History chronic pericarditis. Echo performed at [facility] on 12/22/15 demonstrated LVEF 55-59% , normal LV wall thickness, normal RV, no significant pulm hypertension, no pericardial effusion. Doubt any change, but will check f/u echo to rule out pericardial effusion or other abnormalities. HISTORY PAROXYSMAL ATRIAL TACHYCARDIA Continue propranolol as hemodynamics allow. PULMONARY ATELECTASIS Incentive spirometry. CARLOS ENRIQUE / CHRONIC KIDNEY DISEASE III Serum creatinine 0.97 on 08/11/16. Creatinine postop was 1.8. Ketorolac discontinued. BP's relatively low. Initially received IV fluid resuscitation + hydrocortisone. Nephrology consulted. Started on albumin, midodrine, octreotide for hepatorenal syndrome. Item Value Date Time Creatinine 1.80 mg/dl H 09/18/16 0526 Creatinine 2.40 mg/dl H # 09/19/16 0742 Creatinine 2.30 mg/dl H 09/19/16 1625 Creatinine 2.30 mg/dl H 09/20/16 0515 Urine output last 3 shifts increased to 150 mls/shift. Follow. BILIARY CIRRHOSIS Continue usual medications. Watch for hepatic encephalopathy. GI consulted. Started on lactulose for constipation and hepatic encephalopathy. HYPOTENSION BPs relatively postoperatively. Received IV fluids and hydrocortisone with improvement. CHRONIC STEROID THERAPY Chronic prednisone therapy for chronic pericarditis. IV hydrocortisone while acutely ill. SOMNOLENCE Fluctuating mental status, probably multifactorial (anesthesia, hepatic encephalopathy, hypercapnia. LEUKOCYTOSIS WBC 22,590 09/19. Probably secondary to IV hydrocortisone. Afebrile. Chest x-ray as noted above- similar to previous imaging, no apparent acute infiltrates. UA showed leukocyte esterase, WBC's, RBC's, many epithelial cells, no bacteria. Urine culture ordered. Started empirically on IV ceftriaxone. Remains afebrile. WBC today 15,560. Consider SBP. Check US for ascites. S/P RIGHT REVERSE TOTAL SHOULDER ARTHROPLASTY, REMOVAL OF DEEP HARDWARE RIGHT PROXIMAL HUMERUS, DEBRIDEMENT OF OLECRANON ULCER RIGHT ELBOW Management per Ortho. VTE PROPHYLAXIS No anticoagulants due to coagulopathy. SCD's. Ambulate when able. Thank you for this consultation. We will follow the patient with you during their hospital stay. You can reach a member of the [facility] Hospitalist Team 30/08 via pager @ [phone]. You can reach me via cell @ [phone]. . Current Inpatient Medications: Current Inpatient Medications Medications (Trade) Dose Ordered Sig/Michael Route Start Time Stop Time Status Last Admin Dose Admin Ondansetron HCl (Zofran Inj) 4 mg Q6H PRN IV 09/17/16 16:15 10/17/16 16:14 Al Hydroxide/Mg Hydroxide (Maalox Susp) 30 ml Q4H PRN PO 09/17/16 16:15 10/17/16 16:14 Pantoprazole Sodium (Protonix Tab) 40 mg QAM PO 09/18/16 09:00 10/18/16 08:59 09/19/16 08:28 40 MG Magnesium Hydroxide (Milk Of Magnesia Susp) 30 ml Q6H PRN PO 09/17/16 16:15 10/17/16 16:14 Bisacodyl (Dulcolax Supp) 10 mg DAILY PRN NM 09/17/16 16:15 10/17/16 16:14 Sodium Biphosphate/ Sodium Phosphate (Fleet Enema) 132 ml DAILY PRN NM 09/17/16 16:15 10/17/16 16:14 Senna (Senokot Tab) 17.2 mg HS PO 09/17/16 21:00 10/17/16 20:59 09/19/16 21:20 17.2 MG Multivitamins (Multivitamin Tab) 1 tab DAILY PO 09/18/16 09:00 10/18/16 08:59 09/19/16 08:27 1 TAB Gabapentin (Neurontin Cap) 300 mg TID PO 09/17/16 21:00 10/17/16 20:59 Future Hold 09/18/16 09:11 300 MG Hydroxyzine HCl (Vistaril Tab) 50 mg HS PO 09/17/16 21:00 10/17/16 20:59 09/19/16 21:19 50 MG Prednisone (PredniSONE TAB) 1 mg QAM PO 09/18/16 09:00 10/18/16 08:59 09/19/16 08:28 1 MG Sertraline HCl (Zoloft Tab) 50 mg QAM PO 09/18/16 09:00 10/18/16 08:59 09/19/16 08:28 50 MG Ursodiol (Actigall Cap) 600 mg BID PO 09/17/16 21:00 10/17/16 20:59 09/19/16 21:19 600 MG Miconazole Nitrate (Desenex Powder) 1 appln BID EXT 09/17/16 21:00 10/17/16 20:59 09/19/16 21:18 1 APPLN Oxycodone HCl (Roxicodone Immediate Rel Tab) 5 mg Q4H PRN PO 09/18/16 16:15 10/01/16 16:14 Enteral Nutritional Formula (Boost) 1 can DAILY@1000,2100 PO 09/18/16 21:00 10/18/16 20:59 09/19/16 21:17 1 CAN Propranolol HCl (Inderal Tab) 10 mg QAM PO 09/19/16 09:00 10/18/16 08:59 Hydrocortisone Sodium Succinate 25 mg/Syringe 0.5 ml @ 4 mls/min Q8 IV 09/19/16 14:00 10/19/16 13:59 09/20/16 05:44 4 MLS/MIN Albumin Human (Albumin 25%) 25 gm Q8 IV 09/19/16 23:00 09/22/16 22:59 09/20/16 05:45 25 GM Midodrine (Proamatine Tab) 5 mg TID@0800,1200,1800 PO 09/19/16 18:00 10/19/16 17:59 09/19/16 18:27 5 MG Octreotide Acetate (Sandostatin Inj) 100 mcg Q8 IV 09/19/16 22:00 10/19/16 21:59 09/20/16 05:49 100 MCG Polyethylene (Miralax Powder Packet) 17 gm DAILY PRN PO 09/19/16 19:30 10/19/16 19:29 Lactulose (Chronulac Syrup) 30 gm BID PO 09/19/16 21:00 10/19/16 20:59 09/19/16 21:18 30 GM Ceftriaxone Sodium 1 gm/ Dextrose 50 ml @ 100 mls/hr Q24H IV 09/19/16 22:00 09/29/16 21:59 09/19/16 22:32 100 MLS/HR Levalbuterol (Xopenex 0.63 Mg/ 3 Ml Neb) 0.63 mg Q6H PRN INH 09/20/16 08:30 10/20/16 08:29
[2016-09-20] MEDS ORDERED: LSX20 PO (09:56)
[2016-09-20] MEDS ORDERED: TRAZ100T29 PO (09:56)
[2016-09-20] MEDS: BOOST VANILLA PO SCH ×2 (10:00)
[2016-09-20 10:34] LABS: ARTERIAL BLD GAS O2 SATURATION 90.3 % (90-95); ARTERIAL BLOOD GAS BASE EXCESS -5.5 mEq/L (-9-1.8); ARTERIAL BLOOD GAS HCO3 21 mmol/L (19-24); ARTERIAL BLOOD GAS PO2 71 mm/Hg (80-95); ARTERIAL BLOOD GAS pH 7.27 (7.35-7.45)
[2016-09-20 10:35] LABS: ALLEN TEST POS (POS); O2 ADMINISTRATION 60%
--- NOTE | 2016-09-20 10:50 | Anesthesiology Progress Note ---
Anesthesia Post Op Note Date & Time Sep 20, 2016 at 10:48 Vital Signs Pain Intensity: 0.0 Vital Signs Past 12 Hours Date Time Temp Pulse Resp B/P (MAP) Pulse Ox O2 Delivery O2 Flow Rate FiO2 09/20/16 09:06 83 17 94 BiPAP/CPAP 60 09/20/16 09:06 83 94 60 09/20/16 07:07 37.1 75 20 138/85 (102) 91 09/20/16 04:00 Nasal Cannula 4.0 09/20/16 03:55 36.8 71 22 108/57 (74) 90 Nasal Cannula 4.0 09/20/16 00:00 36.7 65 21 105/51 (69) 90 Nasal Cannula 4.0 09/20/16 00:00 Nasal Cannula 4.0 Notes Mental Status: see Notes (pt lethargic, discussed pt with RN. ) Pt Amnestic to Procedure: Yes Nausea / Vomiting: adequately controlled Pain: adequately controlled Airway Patency, RR, SpO2: see Notes (tachypneic, on 15 NRB) BP & HR: stable & adequate Hydration State: stable & adequate Anesthetic Complications: no major complications apparent
--- NOTE | 2016-09-20 12:43 | Gastrointestinal Consultation ---
Gastrointestinal Consultation Date of Consultation: Sep 20, 2016 Attending Physician: Mahamed Guy Consulting Physician: Jennifer Rutherford Reason for Consultation: PBC History of Present Illness Patient is a 60 year old female admitted for R humerus fx s/p reverse total shoulder arthroplasty, seen for PBC and worsening renal function. Last admission 07/26-08/13 for HRS, encephalopathy. She is currently stuporous, on 15L O2 via mask. CXR showed pulm edema, vs ARDS, vs pneumonia. Did receive Vistaril last night, only managed to follow simple commands such as opening eyes and squeezing my fingers when instructed. She denies being in any pain this AM. Chart review showed that she received Lasix 80mg IV yesterday, UOP 525ml yesterday, this AM 375mg. Cr still at 2.3. Urine Na 8. Seen by Nephrology (Dr. Michaels). She is on Albumin 25g IV q8hr, Octreotide 100mg IV q8hrs, Midodrine 5mg TID. Ammonia level to be added on to labs this AM. She had Lactulose 30mg BID. Past Medical/Surgical History Medical Problems: (1) Displaced fracture of proximal end of right humerus Status: Acute Surgical Problems: (1) Status post catheter ablation for SVT Status: Chronic Past Medical History: See above. Past Surgical History: As above, TIPS placement Tonsillectomy Cataract surgery Family History Asthma MOTHER Diabetes mellitus FATHER Heart disease FATHER MOTHER Social History Smoking Status: Never Smoker Alcohol Use: none Drug Use: none Occupation Status: disabled Allergies Coded Allergies: Budesonide (Verified Allergy, Intermediate, FACIAL SWELLING, 09/17/16) PER RECORDS Mycophenolate (Verified Allergy, Intermediate, FACIAL SWELLING, 09/17/16) PER RECORDS Latex (Verified Allergy, Mild, RASH-CONTACT, 09/17/16) Acetaminophen (Verified Adverse Reaction, Unknown, "LIVER DISEASE", ) PER RECORDS Pseudoephedrine (Verified Adverse Reaction, Unknown, TACHYCARDIA, 09/17/16) PER RECORDS Current Medications Home Meds and Scripts Medications Dose Route/Sig Max Daily Dose Days Date Category Dose Instructions Furosemide 20 Mg Tab 100 Mg PO DAILY 09/20/16 Reported Take 5 pills every morning. Trazodone (Trazodone HCl) 100 Mg Tab 100 Mg PO HS 09/20/16 Reported Vitamin D3 (Cholecalciferol) 1,000 Unit Cap 1,000 Units PO QAM 09/10/16 Reported Ferrous Gluconate 324 Mg Tab 324 Mg PO TID 09/10/16 Reported Atarax (Hydroxyzine Hcl) 50 Mg Tab 50 Mg PO HS 07/23/16 Reported Inderal (Propranolol HCl) 10 Mg Tab 10 Mg PO QAM 07/23/16 Reported Ursodiol 300 Mg Cap 600 Mg PO BID 07/23/16 Reported Neurontin (Gabapentin) 300 Mg Cap 300 Mg PO TID 07/23/16 Reported Ocaliva (Obeticholic Acid) 5 Mg Tab 5 Mg PO Tuesday07/23/16 Reported AM Aldactone (Spironolactone) 25 Mg Tab 100 Mg PO QAM 07/23/16 Reported Take 4 pills every morning. Zoloft (Sertraline HCl) 50 Mg Tab 50 Mg PO QAM 07/23/16 Reported Prednisone 1 Mg Tab 1 Mg PO QAM 07/23/16 Reported Review of Systems Constitutional: + see HPI (Very limited ROS, given pt's mental status. See HPI above. ) Physical Exam Date Time Temp Pulse Resp B/P (MAP) Pulse Ox O2 Delivery O2 Flow Rate FiO2 09/20/16 11:55 36.5 75 20 120/67 (84) 92 BiPAP 09/20/16 09:06 83 17 94 BiPAP/CPAP 60 09/20/16 09:06 83 94 60 09/20/16 08:00 91 Oxymask 15.0 60 09/20/16 07:07 37.1 75 20 138/85 (102) 91 09/20/16 04:00 Nasal Cannula 4.0 09/20/16 03:55 36.8 71 22 108/57 (74) 90 Nasal Cannula 4.0 09/20/16 00:00 36.7 65 21 105/51 (69) 90 Nasal Cannula 4.0 09/20/16 00:00 Nasal Cannula 4.0 09/19/16 20:00 Nasal Cannula 4.0 09/19/16 18:57 36.8 68 26 103/62 (76) 94 Nasal Cannula 4.0 09/19/16 16:46 36.7 73 16 93 4.0 09/19/16 16:35 36.9 66 20 89/57 (68) 90 Nasal Cannula 4.0 09/19/16 16:35 Nasal Cannula 4.0 09/19/16 15:45 93 Nasal Cannula 4.0 09/19/16 15:23 36.7 73 16 104/59 (74) 93 Nasal Cannula 4.0 09/19/16 13:49 100/66 (77) 09/19/16 12:55 36.3 62 16 88/58 (68) 90 Nasal Cannula 3.0 General Appearance: no apparent distress Neck: supple, no JVD, trachea midline Respiratory/Chest: + crackles, + rhonchi Cardiovascular: regular rate, rhythm, no gallop, no murmur Abdomen: + abnormal bowel sounds (hypoactive ), + pertinent finding (no fluid wave consistent w ascites but likely has anasarca ) Neurologic/Psych: + depressed affect, + disoriented Skin: no jaundice Laboratory Results Last 24 Hours Test 09/19/16 16:10 09/19/16 16:25 09/20/16 05:15 09/20/16 08:31 Urine Color DK YELLOW Urine Appearance CLOUDY Urine pH 5.0 Urine Specific [place] 1.016 Urine Protein 1+ Urine Glucose (UA) NEG Urine Ketones TRACE Urine Occult Blood 3+ Urine Nitrite NEG Urine Bilirubin NEG Urine Urobilinogen NEG Urine Leukocyte Esterase MODERATE Urine WBC (Auto) 10-30 /hpf Urine RBC (Auto) >30 /hpf Urine Hyaline Casts (Auto) 5-10 /lpf Urine Epithelial Cells (Auto) 10-20 /lpf Urine Bacteria (Auto) NEG Urine Random Creatinine 97.0 mg/dl Urine Random Sodium 8 mEq/L Sodium Level 138 mmol/L 138 mmol/L Potassium Level 4.8 mmol/L 4.5 mmol/L Chloride Level 108 mmol/L 107 mmol/L Carbon Dioxide Level 20 mmol/L 23 mmol/L Anion Gap 10.0 mmol/L 8.0 mmol/L Blood Urea Nitrogen 52 mg/dl 57 mg/dl Creatinine 2.30 mg/dl 2.30 mg/dl Est Creatinine Clear Calc Drug Dose 28.6 ml/min 28.6 ml/min Estimated GFR () 26.3 26.3 Estimated GFR (Non- 22.7 22.7 BUN/Creatinine Ratio 22.6 24.8 Random Glucose 136 mg/dl 131 mg/dl Calcium Level 7.0 mg/dl 7.6 mg/dl White Blood Count 18.56 K/uL Red Blood Count 3.12 M/uL Hemoglobin 9.1 g/dL Hematocrit 28.1 % Mean Corpuscular Volume 90.1 fL Mean Corpuscular Hemoglobin 29.2 pg Mean Corpuscular Hemoglobin Concent 32.4 g/dl RDW Standard Deviation 54.0 fL RDW Coefficient of Variation 16.4 % Platelet Count 182 K/uL Mean Platelet Volume 10.7 fL Magnesium Level 2.2 mg/dl Total Bilirubin 3.9 mg/dl Aspartate Amino Transf (AST/SGOT) 65 U/L Alanine Aminotransferase (ALT/SGPT) 13 U/L Alkaline Phosphatase 253 U/L Total Protein 5.7 gm/dl Albumin 3.0 gm/dl Globulin 2.7 gm/dl Albumin/Globulin Ratio 1.1 Arterial Blood pH 7.21 Arterial Blood Partial Pressure CO2 55 mmHg Arterial Blood Partial Pressure O2 77 mm/Hg Arterial Blood HCO3 22 mmol/L Arterial Blood Oxygen Saturation 90.9 % Arterial Blood Base Excess -6.2 mEq/L Arterial Blood Gas Delivery 15L Amado Test POS Test 09/20/16 10:12 Arterial Blood pH 7.27 Arterial Blood Partial Pressure CO2 47 mmHg Arterial Blood Partial Pressure O2 71 mm/Hg Arterial Blood HCO3 21 mmol/L Arterial Blood Oxygen Saturation 90.3 % Arterial Blood Base Excess -5.5 mEq/L Arterial Blood Gas Delivery 60% Amado Test POS Ammonia 59.0 umol/L Impression Patient is a 60 year old female currently admitted for R humerus fracture, s/p reverse total shoulder arthroplasty. Seen for hx of PBC, and likely HRS. Cr no change from 2.3, did receive Lasix 80mg IV yesterday, UOP improved some. MELD 24. She was no listed on transplant list at [facility] previously given low MELD. Was supposed to have Hepatology eval for possible liver/kidney transplant. Appt was today. Also having issues w pulmonary edema/ARDS vs pneumonia Plan - Continue current Albumin, Octreotide, Midodrine, Ursodiol - Nephrology following, appreciate recs. - Add Ammonia level to today's lab. Continue Lactulose but if unable to take PO , change to enema form (30g BID, titrate to goal of at least 3BMs). - U/S abd for ascites check. - Will follow Late entry: patient was seen and examined with YVAN Bolanos on 09/20. Her note reflects our findings and plan. I spoke with patient's while patient was on BiPap. Discussed transplant status - not active ont he list - needs to be re-evaluated at [facility]. Decompensation following orthopedic surgery again.
[2016-09-20 13:10] LABS: ALLEN TEST POS (POS); ARTERIAL BLD GAS O2 SATURATION 91.5 % (90-95); ARTERIAL BLOOD GAS BASE EXCESS -5.4 mEq/L (-9-1.8); ARTERIAL BLOOD GAS HCO3 21 mmol/L (19-24); ARTERIAL BLOOD GAS PO2 76 mm/Hg (80-95); ARTERIAL BLOOD GAS pH 7.26 (7.35-7.45); O2 ADMINISTRATION 60%
[2016-09-20] MEDS ORDERED: FUROSEMIDE INJ 80 MG in SYRINGE 0 ML IV SCH (14:00)
--- NOTE | 2016-09-20 15:45 | Nephrology Progress Note ---
Nephrology Progress Note Date of Service: Sep 20, 2016. Subjective 60 yo female with biliary cirrhosis with ileana/atn vs HRS whose creatinine now in the 2.3 range and urine output trending down despite aggressive diuresis. pt sounds tight and is lethargic. being moved to ICU. needs central line access. on bipap. Objective Date Time Temp Pulse Resp B/P (MAP) Pulse Ox O2 Delivery O2 Flow Rate FiO2 09/20/16 15:21 80 92 60 09/20/16 11:55 36.5 75 20 120/67 (84) 92 BiPAP 09/20/16 09:06 83 17 94 BiPAP/CPAP 60 09/20/16 09:06 83 94 60 09/20/16 08:00 91 Oxymask 15.0 60 09/20/16 07:07 37.1 75 20 138/85 (102) 91 09/20/16 04:00 Nasal Cannula 4.0 09/20/16 03:55 36.8 71 22 108/57 (74) 90 Nasal Cannula 4.0 09/20/16 00:00 36.7 65 21 105/51 (69) 90 Nasal Cannula 4.0 09/20/16 00:00 Nasal Cannula 4.0 09/19/16 20:00 Nasal Cannula 4.0 09/19/16 18:57 36.8 68 26 103/62 (76) 94 Nasal Cannula 4.0 09/19/16 16:46 36.7 73 16 93 4.0 09/19/16 16:35 36.9 66 20 89/57 (68) 90 Nasal Cannula 4.0 09/19/16 16:35 Nasal Cannula 4.0 09/19/16 15:45 93 Nasal Cannula 4.0 Physical Exam: General-lethargic Eyes-+scleral icterus ENT-mmm Neck-supple Lungs-+diffuse wheezing with minimal air movement Heart-rrr Abdomen-bs+/soft Extremities-+1 edema, right arm in sling Neuro-lethargic Current Inpatient Medications Medications (Trade) Dose Ordered Sig/Michael Route Start Time Stop Time Status Last Admin Dose Admin Ondansetron HCl (Zofran Inj) 4 mg Q6H PRN IV 09/17/16 16:15 10/17/16 16:14 Al Hydroxide/Mg Hydroxide (Maalox Susp) 30 ml Q4H PRN PO 09/17/16 16:15 10/17/16 16:14 Pantoprazole Sodium (Protonix Tab) 40 mg QAM PO 09/18/16 09:00 10/18/16 08:59 09/19/16 08:28 40 MG Magnesium Hydroxide (Milk Of Magnesia Susp) 30 ml Q6H PRN PO 09/17/16 16:15 10/17/16 16:14 Bisacodyl (Dulcolax Supp) 10 mg DAILY PRN MD 09/17/16 16:15 10/17/16 16:14 Sodium Biphosphate/ Sodium Phosphate (Fleet Enema) 132 ml DAILY PRN MD 09/17/16 16:15 10/17/16 16:14 Senna (Senokot Tab) 17.2 mg HS PO 09/17/16 21:00 10/17/16 20:59 09/19/16 21:20 17.2 MG Multivitamins (Multivitamin Tab) 1 tab DAILY PO 09/18/16 09:00 10/18/16 08:59 09/19/16 08:27 1 TAB Gabapentin (Neurontin Cap) 300 mg TID PO 09/17/16 21:00 10/17/16 20:59 Future Hold 09/18/16 09:11 300 MG Hydroxyzine HCl (Vistaril Tab) 50 mg HS PO 09/17/16 21:00 10/17/16 20:59 09/19/16 21:19 50 MG Prednisone (PredniSONE TAB) 1 mg QAM PO 09/18/16 09:00 10/18/16 08:59 09/19/16 08:28 1 MG Sertraline HCl (Zoloft Tab) 50 mg QAM PO 09/18/16 09:00 10/18/16 08:59 09/19/16 08:28 50 MG Ursodiol (Actigall Cap) 600 mg BID PO 09/17/16 21:00 10/17/16 20:59 09/19/16 21:19 600 MG Miconazole Nitrate (Desenex Powder) 1 appln BID EXT 09/17/16 21:00 10/17/16 20:59 09/20/16 09:00 1 APPLN Oxycodone HCl (Roxicodone Immediate Rel Tab) 5 mg Q4H PRN PO 09/18/16 16:15 10/01/16 16:14 Enteral Nutritional Formula (Boost) 1 can DAILY@1000,2100 PO 09/18/16 21:00 10/18/16 20:59 09/19/16 21:17 1 CAN Propranolol HCl (Inderal Tab) 10 mg QAM PO 09/19/16 09:00 10/18/16 08:59 Hydrocortisone Sodium Succinate 25 mg/Syringe 0.5 ml @ 4 mls/min Q8 IV 09/19/16 14:00 10/19/16 13:59 09/20/16 05:44 4 MLS/MIN Albumin Human (Albumin 25%) 25 gm Q8 IV 09/19/16 23:00 09/22/16 22:59 09/20/16 05:45 25 GM Midodrine (Proamatine Tab) 5 mg TID@0800,1200,1800 PO 09/19/16 18:00 10/19/16 17:59 09/19/16 18:27 5 MG Octreotide Acetate (Sandostatin Inj) 100 mcg Q8 IV 09/19/16 22:00 10/19/16 21:59 09/20/16 05:49 100 MCG Polyethylene (Miralax Powder Packet) 17 gm DAILY PRN PO 09/19/16 19:30 10/19/16 19:29 Lactulose (Chronulac Syrup) 30 gm BID PO 09/19/16 21:00 10/19/16 20:59 09/19/16 21:18 30 GM Ceftriaxone Sodium 1 gm/ Dextrose 50 ml @ 100 mls/hr Q24H IV 09/19/16 22:00 09/29/16 21:59 09/19/16 22:32 100 MLS/HR Levalbuterol (Xopenex 0.63 Mg/ 3 Ml Neb) 0.63 mg Q6H PRN INH 09/20/16 08:30 10/20/16 08:29 Furosemide 80 mg/ Syringe 8 ml @ 4 mls/min TODAY@1400 IV 09/20/16 14:00 09/20/16 20:00 Last 24 Hours Test 09/19/16 16:10 09/19/16 16:25 09/20/16 05:15 09/20/16 08:31 Urine Color DK YELLOW Urine Appearance CLOUDY Urine pH 5.0 Urine Specific [place] 1.016 Urine Protein 1+ Urine Glucose (UA) NEG Urine Ketones TRACE Urine Occult Blood 3+ Urine Nitrite NEG Urine Bilirubin NEG Urine Urobilinogen NEG Urine Leukocyte Esterase MODERATE Urine WBC (Auto) 10-30 /hpf Urine RBC (Auto) >30 /hpf Urine Hyaline Casts (Auto) 5-10 /lpf Urine Epithelial Cells (Auto) 10-20 /lpf Urine Bacteria (Auto) NEG Urine Random Creatinine 97.0 mg/dl Urine Random Sodium 8 mEq/L Sodium Level 138 mmol/L 138 mmol/L Potassium Level 4.8 mmol/L 4.5 mmol/L Chloride Level 108 mmol/L 107 mmol/L Carbon Dioxide Level 20 mmol/L 23 mmol/L Anion Gap 10.0 mmol/L 8.0 mmol/L Blood Urea Nitrogen 52 mg/dl 57 mg/dl Creatinine 2.30 mg/dl 2.30 mg/dl Est Creatinine Clear Calc Drug Dose 28.6 ml/min 28.6 ml/min Estimated GFR () 26.3 26.3 Estimated GFR (Non- 22.7 22.7 BUN/Creatinine Ratio 22.6 24.8 Random Glucose 136 mg/dl 131 mg/dl Calcium Level 7.0 mg/dl 7.6 mg/dl White Blood Count 18.56 K/uL Red Blood Count 3.12 M/uL Hemoglobin 9.1 g/dL Hematocrit 28.1 % Mean Corpuscular Volume 90.1 fL Mean Corpuscular Hemoglobin 29.2 pg Mean Corpuscular Hemoglobin Concent 32.4 g/dl RDW Standard Deviation 54.0 fL RDW Coefficient of Variation 16.4 % Platelet Count 182 K/uL Mean Platelet Volume 10.7 fL Magnesium Level 2.2 mg/dl Total Bilirubin 3.9 mg/dl Aspartate Amino Transf (AST/SGOT) 65 U/L Alanine Aminotransferase (ALT/SGPT) 13 U/L Alkaline Phosphatase 253 U/L Total Protein 5.7 gm/dl Albumin 3.0 gm/dl Globulin 2.7 gm/dl Albumin/Globulin Ratio 1.1 Arterial Blood pH 7.21 Arterial Blood Partial Pressure CO2 55 mmHg Arterial Blood Partial Pressure O2 77 mm/Hg Arterial Blood HCO3 22 mmol/L Arterial Blood Oxygen Saturation 90.9 % Arterial Blood Base Excess -6.2 mEq/L Arterial Blood Gas Delivery 15L Amado Test POS Test 09/20/16 10:12 09/20/16 12:52 Arterial Blood pH 7.27 7.26 Arterial Blood Partial Pressure CO2 47 mmHg 49 mmHg Arterial Blood Partial Pressure O2 71 mm/Hg 76 mm/Hg Arterial Blood HCO3 21 mmol/L 21 mmol/L Arterial Blood Oxygen Saturation 90.3 % 91.5 % Arterial Blood Base Excess -5.5 mEq/L -5.4 mEq/L Arterial Blood Gas Delivery 60% 60% Amado Test POS POS Ammonia 59.0 umol/L Date/Time Source Procedure Growth Status 09/20/16 08:18 Stool C.difficile Toxin B Gene (PCR) Pending Ordered Assessment & Plan ileana-atn vs HRS with signs of volume overload and being moved to icu. currently on bipap. may need intubated. will discuss further with critical care physician. would recommend temporary dialysis catheter and fluid removal as bp tolerates to help with oxygenation. currently on midodrine/octreotide/albumin/ lasix. will hold the albumin with pt fluid overloaded. overall poor prognosis. case discussed with Dr. Guy.
[2016-09-20 16:16] LABS: ISTAT ALLEN TEST Pass; ISTAT ARTERIAL BLOOD GAS HCO3 21 meq/L (19-24); ISTAT ARTERIAL BLOOD GAS PCO2 52 mmHg (35-46); ISTAT ARTERIAL BLOOD GAS PO2 56 mmHg (80-95); ISTAT ARTERIAL BLOOD GAS pH 7.22 (7.35-7.45); ISTAT CARBON DIOXIDE 23 mEq/l (24-31); ISTAT DELIVERY SYSTEM BIPAP; ISTAT FIO2 60 %; ISTAT SITE L Radial
--- NOTE | 2016-09-20 17:34 | DIAGNOSTIC IMAGING REPORT ---
CHEST ONE VIEW PORTABLE HISTORY: confirm central line placement COMPARISON: Chest 09/20/2016. FINDINGS: Interval placement of a right jugular central venous catheter was terminates in the expected location of the SVC. No pneumothorax. Mild elevation the right hemidiaphragm, unchanged. The heart remains mildly enlarged. Right greater the left bilateral airspace opacities persist. Postoperative changes within the bilateral shoulders. Probable small pleural effusions, unchanged. IMPRESSION: 1. Right jugular central venous catheter terminates in the SVC. No pneumothorax. 2. Bilateral airspace opacities and small bilateral pleural effusions persist. Electronically signed by: Zachary Clark M.D. 09/20/2016 5:32 PM Dictated Date/Time: 09/20/2016 5:28 PM
--- NOTE | 2016-09-20 17:35 | ECHOCARDIOGRAM REPORT ---
*NOTICE TO RECEIVING LIBERTARIAN AGENCY This information is strictly Confidential and protected under [place] law. [place] law prohibits you from making any further disclosure of this information unless further disclosure is expressly permitted by the written consent of the person to whom it pertains or is authorized by law. A general authorization for the release of medical or other information is not sufficient for this purpose. Hospital accepts no responsibility if the information is made available to any other person, INCLUDING THE PATIENT. Interpretation Summary * Name: SANTA FARNSWORTH Study Date: 09/20/2016 04:20 PM BP: 136/73 mmHg * Patient Location: C.2E\S\E201\S\1 HR: 81 * : 1955 (M/d/yyyy) Gender: Female Height: 65 in * Age: 60 yrs Ethnicity: [place] Weight: 207 lb * Ordering Physician: Mahamed Guy * Referring Physician: Malena * Performed By: Saloni Hameed RDCS * * Reason For Study: EVAL FOR HEPATOPULMONARY SHUNT * BSA: 2.0 m2 * -- Conclusions -- * A limited focused study was performed for indication of hepatopulmonary shunt. * A complete resting echocardiogram had recently been completed on 07/27/16. * The interatrial septum is intact with no evidence for an atrial septal defect. * Injection of contrast documented no interatrial shunt and no evidence of early bubbles otherwise crossing from the right cardiac to left cardiac circulation that would suggest hepaptopulmonary shunt. Procedure Details * A saline contrast injection was performed to assess for cardiac shunting. * The injection was performed through an intravenous line in the right arm. * The attending nurse who injected the saline contrast was DEL MYERS. * A total of 40 cc of agitated saline was given. Left Ventricle * Left ventricular systolic function is normal. * Ejection Fraction = 60-65%. Right Ventricle * The right ventricle is normal in size and function. Atria * The left atrium is mildly dilated. * The interatrial septum is intact with no evidence for an atrial septal defect. * Injection of contrast documented no interatrial shunt. Tricuspid Valve * There is mild tricuspid regurgitation. * Doppler findings do not suggest pulmonary hypertension. MMode 2D Measurements and Calculations IVSd 0.92 cm IVSs 1.3 cm LVIDd 4.8 cm LVIDs 3.4 cm LVPWd 1.3 cm LVPWs 1.6 cm IVS/LVPW 0.69 FS 28.8 % EDV(Teich) 105.9 ml ESV(Teich) 47.3 ml EF(Teich) 55.3 % EDV(cubed) 108.4 ml ESV(cubed) 39.2 ml EF(cubed) 63.9 % % IVS thick 46.3 % % LVPW thick 15.6 % LV mass(C)d 199.6 grams LV mass(C)dI 99.5 grams/m\S\2 LV mass(C)s 175.6 grams LV mass(C)sI 87.5 grams/m\S\2 SV(Teich) 58.6 ml SI(Teich) 29.2 ml/m\S\2 SV(cubed) 69.3 ml SI(cubed) 34.5 ml/m\S\2 Doppler Measurements and Calculations TR max shorty 272.8 cm/sec
--- NOTE | 2016-09-20 18:25 | DIAGNOSTIC IMAGING REPORT ---
LIMITED ABDOMINAL ULTRASOUND FOR ASCITES EVALUATION CLINICAL HISTORY: biliary cirrhosis COMPARISON STUDY: CT scan dated 08/09/2016 FINDINGS: The study was limited from a technical standpoint. The patient was scanned portably in the unit. The patient was unresponsive and unable to move. There is trace trace fluid within the left lower quadrant adjacent to a bowel loop. This pocket measure less than 2 cm. IMPRESSION: Trace free fluid. No evidence of significant ascites Electronically signed by: Yusef Sotelo M.D. 09/20/2016 6:23 PM Dictated Date/Time: 09/20/2016 6:21 PM
[2016-09-20 18:41] LABS: HEPATITIS B AB NEG
[2016-09-20] MEDS ORDERED: RAPID SEQUENCE INDUCTION BAG ONE (20:44)
[2016-09-20 20:45] LABS: ISTAT ALLEN TEST Pass; ISTAT ARTERIAL BLOOD GAS HCO3 23 meq/L (19-24); ISTAT ARTERIAL BLOOD GAS PCO2 45 mmHg (35-46); ISTAT ARTERIAL BLOOD GAS PO2 70 mmHg (80-95); ISTAT ARTERIAL BLOOD GAS pH 7.33 (7.35-7.45); ISTAT CARBON DIOXIDE 25 mEq/l (24-31); ISTAT DELIVERY SYSTEM BIPAP; ISTAT FIO2 60 %; ISTAT RATE 30; ISTAT SITE R Radial
--- NOTE | 2016-09-20 20:49 | Procedure Note ---
Procedure Note Procedure Date Sep 20, 2016. Central Line Procedure time out: side/site verified, patient ID confirmed, sterile procedure used Consent obtained: emergent consent implied (dr. Guy and I agree that patient required HD catheter emergently. Dr. Guy had discussed with patient' s who reported he wanted everything done.) Time of procedure: 16:00 Performed by: attending Indications: poor venous access, other (hemodialysis) Contraindications: coagulopathy Prep: chlorhexadine prep Anesthesia: local injection, lidocaine 1% with epi Volume anesthetic (ml's): 4 Central line lumen: triple Central line location: internal jugular (R) Additional details: percutaneous placement, ultrasound guidance, Selinger technique used, line sutured, good blood return CXR: appropriate position Complications: none Patient tolerated procedure: well Post-procedure vital signs: reviewed and stable Comments: Critical Care Medicine Point of Care Bedside Ultrasound Procedure: Procedural Ultrasound Procedure Date: 09/20/16 Indication: temporary dialysis catheter access Attending: Cesar Tong DO Resident/Physician Perinatal Breastfeeding Assistant: Ariana Harris Artery AND Vein visualized: Y Compressible Vein: Y Guidewire or Short Catheter seen in vein prior to dilation: Y Line confirmed in Vein with ultrasound: Y Lung Sliding on side of attempt (if applicable): NA If no lung sliding or not obtained has CXR been ordered: Y Impression: Successful temporary dialysis catheter place in R. IJ Plan: Emergent Dialysis for volume control. Images obtained are saved for permanent record
[2016-09-20] MEDS ORDERED: PIPERACILL/TAZOBAC IV 4.5 GM in DEXTROSE 5% 100ML 100 ML IV SCH (21:00)
[2016-09-20] MEDS ORDERED: FENTANYL CITRATE INJ 50 MCG/1 ML 2 ML VIAL ONE (21:05)
--- NOTE | 2016-09-20 21:14 | Critical Care Consultation ---
Critical Care Consultation Date of Consultation: Sep 20, 2016. Attending Physician: Luis A Fontenot M.D. Reason for Consultation: respiratory distress, hypotension, and altered mental status History of Present Illness Pat Childress is a 60 yo female who presented to [facility] for elective right reversal total shoulder arthroplasty, removal of deep hardware right proximal humerus, and debridement of olecranon ulcer right elbow by Dr. Fontenot. Patient had approximately 6 weeks prior sustained 2 separate falls and had both displaced a left distal radius fracture and right proximal humerus fracture. Both fractures underwent ORIF. Prior to 09/17, the patient's wrist was healing well however the patient's right arm was causing her increasing pain. She states that she had been lifted off by the arm [facility]. Patient initially went through surgery without major complication. However over the course of the few days since then she was noted to be increasingly somnolent. Until this morning when patient was also noted to be hypoxic respiratory saturations in the 80% with compensatory tachypnea. Patient was noted to be hypotensive with decreased urinary output. Patient was initially placed on BiPAP 60% with improvement of oxygenation. Urinary output picked up after IV Lasix. Patient was initially consented for a PICC line; however, IV team was unsuccessful. She was transferred to the ICU; where Dr. Toi Tong consented patient's for central line. Patient was noted to be in acute fluid overload. Chest x-ray demonstrated patchy groundglass opacities, right basilar linear densities, and bilateral pleural effusions. Creatinine continue to increase from baseline. In addition to Lasix the patient also received albumin 4, octreotide, and midodrine. There is a little improvement was noted and patient was ultimately dialyzed this evening with 3 L of fluid removed. Patient also underwent echocardiogram with minimal findings. Ejection fraction 60-65%. Upon my evaluation of the patient this evening; she is remarkable altered. She will open her eyes but not make eye contact. She cannot follow simple commands. She continued to be hypercarbic status post 3 L fluid removed during hemodialysis. At which time it was decided for patient safety, that she should be intubated. She was indeed intubated by Dr. Tong using a Mac 4 blade, 8.0 ET tube, and 200 mg of fentanyl IV. Patient was placed on CPAP PSV 12, PEEP 8, and FIO2 60%. Pt was receiving PRN intermittent sedation with Versed and Fentanyl. She was placed Zosyn and Vancomycin. Pt has a significant past medical history including, TIPS procedure, biliary cirrhosis, ascites, portal HTN, esophageal varices, PSVT, and Chronic Kidney Disease. ROS could not be obtained secondary to pt condition, sedation, and intubation. Past Medical/Surgical History Medical Problems: (1) Ascites (2) Biliary cirrhosis (3) Chronic pericarditis (4) Chronic steroid use (5) CKD (chronic kidney disease), stage III (6) Esophageal varices (7) History of paroxysmal atrial tachycardia (8) History of PSVT (paroxysmal supraventricular tachycardia) (9) Osteoarthritis (10) Portal hypertension Surgical Problems: (1) Status post cardiac catheterization (2) Status post catheter ablation for SVT (3) Status post reverse total arthroplasty of right shoulder (4) Status post transjugular intrahepatic portosystemic shunt Family History Asthma MOTHER Diabetes mellitus FATHER Heart disease FATHER MOTHER Social History Smoking Status: Never Smoker Alcohol Use: none Drug Use: none Occupation Status: disabled Allergies Coded Allergies: Budesonide (Verified Allergy, Intermediate, FACIAL SWELLING, 09/17/16) PER RECORDS Mycophenolate (Verified Allergy, Intermediate, FACIAL SWELLING, 09/17/16) PER RECORDS Latex (Verified Allergy, Mild, RASH-CONTACT, 09/17/16) Acetaminophen (Verified Adverse Reaction, Unknown, "LIVER DISEASE", ) PER RECORDS Pseudoephedrine (Verified Adverse Reaction, Unknown, TACHYCARDIA, 09/17/16) PER RECORDS Home Medications Scheduled Cholecalciferol (Vitamin D3), 1,000 UNITS PO QAM Ferrous Gluconate (Ferrous Gluconate), 324 MG PO TID Furosemide (Furosemide), 100 MG PO DAILY Gabapentin (Neurontin), 300 MG PO TID Hydroxyzine Hcl (Atarax), 50 MG PO HS Obeticholic Acid (Ocaliva), 5 MG PO TUESDAY Prednisone (Prednisone), 1 MG PO QAM Propranolol (Inderal), 10 MG PO QAM Sertraline (Zoloft), 50 MG PO QAM Spironolactone (Aldactone), 100 MG PO QAM Trazodone Hcl (Trazodone), 100 MG PO HS Ursodiol (Ursodiol), 600 MG PO BID Current Inpatient Medications Current Inpatient Medications Medications (Trade) Dose Ordered Sig/Michael Route Start Time Stop Time Status Last Admin Dose Admin Ondansetron HCl (Zofran Inj) 4 mg Q6H PRN IV 09/17/16 16:15 10/17/16 16:14 Sodium Biphosphate/ Sodium Phosphate (Fleet Enema) 132 ml DAILY PRN AR 09/17/16 16:15 10/17/16 16:14 Prednisone (PredniSONE TAB) 1 mg QAM PO 09/18/16 09:00 10/18/16 08:59 09/19/16 08:28 1 MG Miconazole Nitrate (Desenex Powder) 1 appln BID EXT 09/17/16 21:00 10/17/16 20:59 09/20/16 09:00 1 APPLN Hydrocortisone Sodium Succinate 25 mg/Syringe 0.5 ml @ 4 mls/min Q8 IV 09/19/16 14:00 10/19/16 13:59 09/20/16 17:02 4 MLS/MIN Midodrine (Proamatine Tab) 5 mg TID@0800,1200,1800 PO 09/19/16 18:00 10/19/16 17:59 09/19/16 18:27 5 MG Octreotide Acetate (Sandostatin Inj) 100 mcg Q8 IV 09/19/16 22:00 10/19/16 21:59 09/20/16 17:02 100 MCG Levalbuterol (Xopenex 0.63 Mg/ 3 Ml Neb) 0.63 mg Q6H PRN INH 09/20/16 08:30 10/20/16 08:29 Pantoprazole Sodium 40 mg/ Syringe 10 ml @ 5 mls/min DAILY IV 09/21/16 09:00 10/21/16 08:59 Piperacillin Sod/ Tazobactam Sod 4.5 gm/Dextrose 120 ml @ 200 mls/hr Q6H IV 09/20/16 21:00 09/27/16 20:59 UNV Piperacillin Sod/ Tazobactam Sod (Consult) 1 ea UD PRN N/A 09/20/16 21:15 10/20/16 21:14 Vancomycin HCl 2000 mg/Sodium Chloride 290 ml @ 125 mls/hr NOW STAT IV 09/20/16 20:49 09/20/16 23:08 UNV Methylprednisolone Sodium Succinate 40 mg/Syringe 0.64 ml @ 1.5 mls/min TID IV 09/20/16 21:00 10/20/16 20:59 UNV Review of Systems Could not be obtained secondary to patient being intubated, sedated, and altered mental status. Physical Exam Date Time Temp Pulse Resp B/P (MAP) Pulse Ox O2 Delivery O2 Flow Rate FiO2 09/20/16 20:00 36.6 09/20/16 20:00 94 BiPAP 80 09/20/16 20:00 76 116/75 09/20/16 19:45 78 119/62 09/20/16 19:30 72 111/58 09/20/16 19:15 74 115/58 09/20/16 19:00 73 121/76 09/20/16 18:45 76 119/63 09/20/16 18:32 74 35 116/51 (72) 96 BiPAP 80 09/20/16 18:30 75 32 96 09/20/16 18:30 74 116/52 09/20/16 18:24 70 38 117/58 (77) 93 09/20/16 18:17 74 24 90/ (30) 95 09/20/16 18:15 84 36 94 09/20/16 18:15 84 119/60 09/20/16 18:01 81 25 119/66 (83) 94 09/20/16 18:00 68 21 93 09/20/16 18:00 80 118/65 09/20/16 17:50 76 26 115/67 (83) 91 09/20/16 17:46 82 26 104/44 (64) 92 09/20/16 17:45 75 115/67 09/20/16 17:45 82 24 93 09/20/16 17:32 73 28 113/50 (71) 96 09/20/16 17:30 77 117/60 09/20/16 17:30 36.8 72 35 97 09/20/16 17:16 78 23 119/59 (79) 98 09/20/16 17:15 76 21 98 09/20/16 17:15 78 118/52 09/20/16 17:01 78 30 131/83 (99) 97 BiPAP 80 09/20/16 17:00 36.9 73 128/51 (76) 09/20/16 17:00 78 29 98 09/20/16 16:46 80 20 138/67 (90) 97 09/20/16 16:45 80 19 97 BiPAP 80 09/20/16 16:31 81 20 128/74 (92) 96 09/20/16 16:30 77 21 96 09/20/16 16:16 80 20 135/74 (94) 97 BiPAP 80 09/20/16 16:15 79 28 97 09/20/16 16:02 79 20 127/38 (67) 89 09/20/16 16:00 80 20 89 09/20/16 16:00 91 BiPAP 60 09/20/16 15:56 82 20 148/93 (111) 86 BiPAP 80 09/20/16 15:54 84 20 92 09/20/16 15:46 36.0 80 20 92 15.0 09/20/16 15:21 80 92 60 09/20/16 15:14 36.0 81 20 136/73 (94) 92 BiPAP 09/20/16 12:00 92 BiPAP 60 09/20/16 11:55 36.5 75 20 120/67 (84) 92 BiPAP 09/20/16 09:06 83 17 94 BiPAP/CPAP 60 09/20/16 09:06 83 94 60 09/20/16 08:00 91 Oxymask 15.0 60 09/20/16 07:07 37.1 75 20 138/85 (102) 91 09/20/16 04:00 Nasal Cannula 4.0 09/20/16 03:55 36.8 71 22 108/57 (74) 90 Nasal Cannula 4.0 09/20/16 00:00 36.7 65 21 105/51 (69) 90 Nasal Cannula 4.0 09/20/16 00:00 Nasal Cannula 4.0 Vital Signs - as noted Laboratory Data - as noted Physical Exam: General - NAD, Intubated Eyes - Pupils equal ENT - Mucosa moist, no lesions or candidiasis Neck - Supple, trachea midline, no masses or lymphadenopathy, no JVD or bruits Lungs - No paradoxical chest wall movement, coarse and diminished to auscultation bilaterally, no wheezes, rales, or rhonchi Heart - Reg rate and rhythm, No murmur, rubs, clicks, or gallops appreciated Abdomen -BS present, no bruits noted, tympanic to percussion, soft, nontender, nondistended, no organomegaly Extremities - No edema, pedal pulses intact, waffle boots in place Neuro - sedated on versed and fentanyl Strength Not assessed Reflexes: Normal and equal CN: no unilateral deficits noted Laboratory Results Last 24 Hours Test 09/20/16 05:15 09/20/16 08:31 09/20/16 10:12 09/20/16 12:52 White Blood Count 18.56 K/uL Red Blood Count 3.12 M/uL Hemoglobin 9.1 g/dL Hematocrit 28.1 % Mean Corpuscular Volume 90.1 fL Mean Corpuscular Hemoglobin 29.2 pg Mean Corpuscular Hemoglobin Concent 32.4 g/dl RDW Standard Deviation 54.0 fL RDW Coefficient of Variation 16.4 % Platelet Count 182 K/uL Mean Platelet Volume 10.7 fL Sodium Level 138 mmol/L Potassium Level 4.5 mmol/L Chloride Level 107 mmol/L Carbon Dioxide Level 23 mmol/L Anion Gap 8.0 mmol/L Blood Urea Nitrogen 57 mg/dl Creatinine 2.30 mg/dl Est Creatinine Clear Calc Drug Dose 28.6 ml/min Estimated GFR () 26.3 Estimated GFR (Non- 22.7 BUN/Creatinine Ratio 24.8 Random Glucose 131 mg/dl Calcium Level 7.6 mg/dl Magnesium Level 2.2 mg/dl Total Bilirubin 3.9 mg/dl Aspartate Amino Transf (AST/SGOT) 65 U/L Alanine Aminotransferase (ALT/SGPT) 13 U/L Alkaline Phosphatase 253 U/L Total Protein 5.7 gm/dl Albumin 3.0 gm/dl Globulin 2.7 gm/dl Albumin/Globulin Ratio 1.1 Arterial Blood pH 7.21 7.27 7.26 Arterial Blood Partial Pressure CO2 55 mmHg 47 mmHg 49 mmHg Arterial Blood Partial Pressure O2 77 mm/Hg 71 mm/Hg 76 mm/Hg Arterial Blood HCO3 22 mmol/L 21 mmol/L 21 mmol/L Arterial Blood Oxygen Saturation 90.9 % 90.3 % 91.5 % Arterial Blood Base Excess -6.2 mEq/L -5.5 mEq/L -5.4 mEq/L Arterial Blood Gas Delivery 15L 60% 60% Amado Test POS POS POS Ammonia 59.0 umol/L Test 09/20/16 16:04 09/20/16 17:17 09/20/16 18:06 09/20/16 20:26 Blood Gas Sample Site L Radial R Radial Bedside Blood Gas pH (LAB) 7.22 7.33 Bedside Blood Gas pCO2 (LAB) 52 mmHg 45 mmHg Bedside Blood Gas pO2 (LAB) 56 mmHg 70 mmHg Bedside Blood Gas HCO3 (LAB) 21 meq/L 23 meq/L Bedside Blood Gas Total CO2 23 mEq/l 25 mEq/l Bedside Blood Gas Base Excess (LAB) -6.0 meq/L -3.0 meq/L Bedside Blood Gas O2 Saturation 83.0 % 92.0 % Amado Test Pass Pass Oxygen Delivery Device BIPAP BIPAP Bedside FiO2 60 % 60 % Hepatitis B Surface Antigen NEG Hepatitis B Surface Antibody NEG Bedside Glucose 112 mg/dl Bedside Oxygen Rate (breaths/min) 30 Diagnostic Results CHEST ONE VIEW PORTABLE CLINICAL HISTORY: Intubation RESPIRATORY FAILURE COMPARISON STUDY: 09/20/2016 FINDINGS: There has been interval insertion of endotracheal tube which is positioned 33 mm above the deborah. There is a nasogastric tube within the stomach. The cardiac and mediastinal contours remain stable. There are diffuse bilateral pulmonary airspace opacities. A right internal jugular central venous catheter projects over the superior vena cava. There is blunting of the lateral costophrenic angle suggesting tiny effusions.[ There are postsurgical changes involving the shoulders. IMPRESSION: 1. Interval placement of an endotracheal tube 33 mm above the deborah 2. Interval placement of a nasogastric tube within the stomach 3. Slight improvement in the extensive bilateral pulmonary airspace opacities Electronically signed by: Yusef Sotelo M.D. 09/20/2016 9:40 PM Dictated Date/Time: 09/20/2016 9:38 PM LIMITED ABDOMINAL ULTRASOUND FOR ASCITES EVALUATION CLINICAL HISTORY: biliary cirrhosis COMPARISON STUDY: CT scan dated 08/09/2016 FINDINGS: The study was limited from a technical standpoint. The patient was scanned portably in the unit. The patient was unresponsive and unable to move. There is trace trace fluid within the left lower quadrant adjacent to a bowel loop. This pocket measure less than 2 cm. IMPRESSION: Trace free fluid. No evidence of significant ascites Electronically signed by: Yusef Sotelo M.D. 09/20/2016 6:23 PM Dictated Date/Time: 09/20/2016 6:21 PM Assessment & Plan (1) Respiratory failure with hypercapnia (2) Fluid overload (3) Biliary cirrhosis (4) Portal hypertension (5) Ascites (6) CKD (chronic kidney disease), stage III (7) Esophageal varices (8) Chronic steroid use PLAN: Neuro: * PRN Sedation/Pain * Fentanyl and Versed q 1h * Hold all sedation in AM, for possible extubation * Rass of 0 Resp: * Intubated 09/20/16 8.0 ET Tube * Weaning trial in AM * CXR in AM * Repeat ABG AM if needed CV: * Normotensive currently * Monitor on telemetry for changes Fluids/Renal: * CARLOS ENRIQUE: limiting fluids secondary to fluid overload * Follow daily PRP * Esposito in place, Strict I&O's * -0.6L today, +6.7 L per stay * Pt fluid overload * Dialysis today for 3L * Repeat tomorrow ID: * Coverage with Zosyn and Vancomycin * Procalcitonin pending * Afebrile with leukocytosis * Urine Pending; Sputum culture yet to be collected GI/Nutrition: * suspected Hepatorenal syndrome * Obtain Ammonia level * Continue Lactulose Endocrine: Accu-Checks per protocol, started insulin infusion for 2 blood sugars greater than 180 Access: Maintain 2 PIVs in additional to RIJ CCT: 45 Minutes; This time is exclusive of all separately billable procedures. Thank you for involving us in the care of this patient. Please refer to Dr. Toi Tong's addendum for further recommendations. I have personally evaluated and examined this patient. I agree with assessment and plan of Milena Loo PA-C. Patient with worsening mental status in the setting of hepatic encephalopathy, possible hepatorenal syndrome after postoperative repair of right upper extremity, and progressive hypercarbic and hypoxic respiratory failure. Initially placed a right temporary hemodialysis catheter, patient underwent dialysis without significant improvement in hypoxia nor mental status. His prompted us to intubate for respiratory insufficiency. We have expanded her antibiotic coverage for possible aspiration pneumonia, obtained a bronchoscopy specimen, and consult neurology for further evaluation of her encephalopathy. In discussion with the gastroenterology physician export sales assistant, did not feel she would be advanced in her evaluation for possible liver transplant with a transfer to [facility] at this time. A major limiting factor would be active infection. Late this afternoon the patient did have some increased responsiveness to voice with her family at bedside, we will continue to monitor her encephalopathy and consider additional causes of encephalopathy including but not limited to cerebral edema. It is noted the pathogenesis of cerebral edema secondary to hepatic encephalopathy is still controversial, although arterial ammonia is thought to play a role, it is noted that the patient's ammonia levels have been marginally elevated.
[2016-09-20] MEDS ORDERED: PIPERACILL/TAZOBAC CONSULT ACTIVE PRN (21:15)
[2016-09-20] MEDS ORDERED: LACTULOSE SYRUP 30 GM/45 ML UDP PO PRN (21:15)
[2016-09-20] MEDS ORDERED: NURSING VERBAL MED ORDER ONE (21:30)
[2016-09-20] MEDS ORDERED: PIPERACILL/TAZOBAC IV 4.5 GM in DEXTROSE 5% 100ML IV ONE (21:30)
--- NOTE | 2016-09-20 21:42 | DIAGNOSTIC IMAGING REPORT ---
CHEST ONE VIEW PORTABLE CLINICAL HISTORY: Intubation RESPIRATORY FAILURE COMPARISON STUDY: 09/20/2016 FINDINGS: There has been interval insertion of endotracheal tube which is positioned 33 mm above the deborah. There is a nasogastric tube within the stomach. The cardiac and mediastinal contours remain stable. There are diffuse bilateral pulmonary airspace opacities. A right internal jugular central venous catheter projects over the superior vena cava. There is blunting of the lateral costophrenic angle suggesting tiny effusions.[ There are postsurgical changes involving the shoulders. IMPRESSION: 1. Interval placement of an endotracheal tube 33 mm above the deborah 2. Interval placement of a nasogastric tube within the stomach 3. Slight improvement in the extensive bilateral pulmonary airspace opacities Electronically signed by: Yusef Sotelo M.D. 09/20/2016 9:40 PM Dictated Date/Time: 09/20/2016 9:38 PM
[2016-09-20] MEDS ORDERED: VANCOMYCIN CONSULT ACTIVE PRN (21:45)
[2016-09-20] MEDS: METHYLPREDNISOLONE IV 40 MG in SYRINGE 0 ML IV SCH (21:55)
[2016-09-20] MEDS ORDERED: VANCOMYCIN INJ 2,000 MG in SODIUM CHLORIDE 0.9% 500ML 500 ML IV ONE (22:00)
[2016-09-20] MEDS: MIDAZOLAM HCL 5 MG/ML 1 ML VIAL IV PRN (22:32)
[2016-09-20] MEDS: FENTANYL CITRATE INJ 50 MCG/1 ML 2 ML VIAL IV PRN (23:56)
[2016-09-21] VITALS (56 sets, daily range): BP systolic 78–136; BP diastolic 34–67; PULSE 60–75; TEMP 36.5–37; O2SAT 90–100
[2016-09-21] MEDS: PIPERACILL/TAZOBAC IV 4.5 GM in DEXTROSE 5% 100ML IV SCH ×3 (03:16→20:13)
[2016-09-21] MEDS: MIDAZOLAM HCL 5 MG/ML 1 ML VIAL IV PRN (04:13)
[2016-09-21] MEDS: FENTANYL CITRATE INJ 50 MCG/1 ML 2 ML VIAL IV PRN (04:14)
[2016-09-21 04:51] LABS: VEN BLD GAS O2 SATURATION 89.8 %; VEN BLOOD GAS BASE EXCESS -3.6 mEq/L; VENOUS BLOOD GAS PCO2 55 mmHg (38.0-50.0); VENOUS BLOOD GAS PO2 69 mmHg
[2016-09-21 04:54] LABS: HEMATOCRIT 26.1 % (37-47); MEAN CORPUSCULAR HEMOGLOBIN 27.6 pg (25-34); MEAN CORPUSCULAR HGB CONC 30.7 g/dl (32-36); MEAN PLATELET VOLUME 10.3 fL (7.4-10.4); PLATELET COUNT 128 K/uL (130-400); WHITE BLOOD COUNT 14.39 K/uL (4.8-10.8)
[2016-09-21 05:08] LABS: BUN/CREATININE RATIO 22.7 (10-20); CREATININE 1.9 mg/dl (0.60-1.20); MAGNESIUM 1.9 mg/dl (1.8-2.4); POTASSIUM 3.9 mmol/L (3.5-5.1)
[2016-09-21 05:09] LABS: PHOSPHORUS 3.7 mg/dl (2.5-4.9)
[2016-09-21] MEDS: OCTREOTIDE ACETATE 100 MCG/ML VIAL IV SCH ×2 (05:34→14:12)
--- NOTE | 2016-09-21 07:08 | Orthopedic Progress Note ---
Orthopedic Progress Note Date of Service Sep 21, 2016. Subjective Post OP Day: 4 Additional Notes: unable to communicate with patient due to intubation. she was able to open her eyes, but did not follow any commands. Objective capillary refill less than 2 sec., dressing C/D/I physical exam was limited due to the patients mental status and intubation. The dressing was C/D/I. The dressing on the elbow was also C/D/I. Her arm was rested in the sling. Date Time Temp Pulse Resp B/P (MAP) Pulse Ox O2 Delivery O2 Flow Rate FiO2 09/21/16 06:01 65 21 91/41 (57) 98 09/21/16 05:31 68 19 95/45 (73) 98 09/21/16 05:01 65 20 89/40 (58) 98 09/21/16 05:00 60 09/21/16 04:32 69 19 80/36 (46) 96 09/21/16 04:15 60 09/21/16 04:01 65 19 90/37 (66) 98 09/21/16 04:00 60 09/21/16 04:00 37.0 09/21/16 04:00 97 Mechanical Ventilator 60 09/21/16 03:31 65 17 95/38 (68) 97 09/21/16 03:01 64 21 81/43 (50) 98 09/21/16 02:31 61 18 85/44 (60) 98 09/21/16 02:01 70 26 110/46 (60) 90 09/21/16 01:35 60 09/21/16 01:31 66 21 104/36 (63) 97 09/21/16 01:01 66 19 78/51 (56) 96 09/21/16 00:31 67 19 98/34 (67) 96 09/21/16 00:01 71 22 99/50 (69) 100 09/21/16 00:01 37.0 09/20/16 23:59 100 Mechanical Ventilator 70 09/20/16 23:59 70 09/20/16 23:31 69 21 104/43 (61) 100 09/20/16 23:07 70 09/20/16 23:01 70 19 90/36 (65) 99 09/20/16 23:01 70 09/20/16 22:31 78 24 102/50 (67) 99 8/14/17 21:46 73 23 109/52 (75) 98 8/14/17 21:31 72 21 105/48 (59) 95 8/14/17 21:16 74 14 98/50 (72) 96 8/14/17 21:02 63 18 127/42 (56) 87 8/14/17 20:56 77 27 118/90 (101) 99 8/14/17 20:01 73 22 130/64 (77) 94 8/14/17 20:00 36.6 8/14/17 20:00 94 BiPAP 80 8/14/17 20:00 76 116/75 8/14/17 19:50 74 24 102/69 (91) 92 8/14/17 19:45 78 119/62 8/14/17 19:40 75 23 119/62 (88) 92 8/14/17 19:35 74 37 81/50 (68) 93 8/14/17 19:31 74 32 76/51 (66) 94 8/14/17 19:30 72 111/58 8/14/17 19:15 74 115/58 8/14/17 19:00 73 121/76 8/14/17 18:45 76 119/63 8/14/17 18:32 74 35 116/51 (72) 96 BiPAP 80 8/14/17 18:30 75 32 96 8/14/17 18:30 74 116/52 8/14/17 18:24 70 38 117/58 (77) 93 8/14/17 18:17 74 24 90/ (30) 95 8/14/17 18:15 84 36 94 8/14/17 18:15 84 119/60 8/14/17 18:01 81 25 119/66 (83) 94 8/14/17 18:00 68 21 93 8/14/17 18:00 80 118/65 8/14/17 17:50 76 26 115/67 (83) 91 8/14/17 17:46 82 26 104/44 (64) 92 8/14/17 17:45 75 115/67 8/14/17 17:45 82 24 93 8/14/17 17:32 73 28 113/50 (71) 96 8/14/17 17:30 77 117/60 8/14/17 17:30 36.8 72 35 97 09/20/16 17:16 78 23 119/59 (79) 98 09/20/16 17:15 76 21 98 09/20/16 17:15 78 118/52 09/20/16 17:01 78 30 131/83 (99) 97 BiPAP 80 09/20/16 17:00 36.9 73 128/51 (76) 09/20/16 17:00 78 29 98 09/20/16 16:46 80 20 138/67 (90) 97 09/20/16 16:45 80 19 97 BiPAP 80 09/20/16 16:31 81 20 128/74 (92) 96 09/20/16 16:30 77 21 96 09/20/16 16:16 80 20 135/74 (94) 97 BiPAP 80 09/20/16 16:15 79 28 97 09/20/16 16:02 79 20 127/38 (67) 89 09/20/16 16:00 80 20 89 09/20/16 16:00 91 BiPAP 60 09/20/16 15:56 82 20 148/93 (111) 86 BiPAP 80 09/20/16 15:54 84 20 92 09/20/16 15:46 36.0 80 20 92 15.0 09/20/16 15:21 80 92 60 09/20/16 15:14 36.0 81 20 136/73 (94) 92 BiPAP 09/20/16 12:00 92 BiPAP 60 09/20/16 11:55 36.5 75 20 120/67 (84) 92 BiPAP 09/20/16 09:06 83 17 94 BiPAP/CPAP 60 09/20/16 09:06 83 94 60 09/20/16 08:00 91 Oxymask 15.0 60 09/20/16 07:07 37.1 75 20 138/85 (102) 91 Laboratory Results 24 Hours: Test 09/21/16 04:39 Hematocrit 26.1 % Hemoglobin 8.0 g/dL Assessment & Plan Assessment: POD #4 s/p Right reverse total shoulder arthroplasty, removal of deep hardware right proximal humerus, debridement of olecranon ulcer right elbow Patient was intubated due to respiratory failure. PER MEDICAL TEAM: Neuro: * PRN Sedation/Pain * Fentanyl and Versed q 1h * Hold all sedation in AM, for possible extubation * Rass of 0 Resp: * Intubated 09/20/16 8.0 ET Tube * Weaning trial in AM * CXR in AM * Repeat ABG AM if needed CV: * Normotensive currently * Monitor on telemetry for changes Fluids/Renal: * CARLOS ENRIQUE: limiting fluids secondary to fluid overload * Follow daily PRP * Esposito in place, Strict I&O's * -0.6L today, +6.7 L per stay * Pt fluid overload * Dialysis today for 3L * Repeat tomorrow ID: * Coverage with Zosyn and Vancomycin * Procalcitonin pending * Afebrile with leukocytosis * Urine Pending; Sputum culture yet to be collected GI/Nutrition: * suspected Hepatorenal syndrome * Obtain Ammonia level * Continue Lactulose Endocrine: Accu-Checks per protocol, started insulin infusion for 2 blood sugars greater than 180 Access: Maintain 2 PIVs in additional to RIJ Discharge Planning Discharge Planning: uncertain
--- NOTE | 2016-09-21 07:10 | DIAGNOSTIC IMAGING REPORT ---
CHEST ONE VIEW PORTABLE HISTORY: intubated COMPARISON: Chest 09/20/2016. FINDINGS: The endotracheal tube terminates 8 mm from the deborah. Right jugular central venous catheter terminates in the SVC. Nasogastric tube terminates below the diaphragm. The tip is not included on this study. Right greater than left airspace opacities and small bilateral pleural effusions. Persistent elevation of the right hemidiaphragm. No pneumothorax. Postoperative changes within the shoulders. IMPRESSION: 1. Endotracheal tube terminates 8 mm from the deborah. This should be pulled back by 1 to 2 cm. 2. Progression of the right greater than left airspace opacities. 3. Small bilateral pleural effusions, unchanged. Electronically signed by: Zachary Clark M.D. 09/21/2016 7:09 AM Dictated Date/Time: 09/21/2016 7:08 AM
--- NOTE | 2016-09-21 07:20 | Nephrology Progress Note ---
Nephrology Progress Note Date of Service: Sep 21, 2016. Subjective 60 yo female with biliary cirrhosis with ileana/atn vs HRS who became fluid overloaded and lethargic. was sent to icu yesterday and temporary dialysis catheter placed. had dialysis yesterday and removed 3 liters of fluid. pt though around 9pm was still lethargic and intubated last night. initially had dark brown secretions but now is thin garcia secretions. pt is sedated. Objective Date Time Temp Pulse Resp B/P (MAP) Pulse Ox O2 Delivery O2 Flow Rate FiO2 09/21/16 06:01 65 21 91/41 (57) 98 09/21/16 05:31 68 19 95/45 (73) 98 09/21/16 05:01 65 20 89/40 (58) 98 09/21/16 05:00 60 09/21/16 04:32 69 19 80/36 (46) 96 09/21/16 04:15 60 09/21/16 04:01 65 19 90/37 (66) 98 09/21/16 04:00 60 09/21/16 04:00 37.0 09/21/16 04:00 97 Mechanical Ventilator 60 09/21/16 03:31 65 17 95/38 (68) 97 09/21/16 03:01 64 21 81/43 (50) 98 09/21/16 02:31 61 18 85/44 (60) 98 09/21/16 02:01 70 26 110/46 (60) 90 09/21/16 01:35 60 09/21/16 01:31 66 21 104/36 (63) 97 09/21/16 01:01 66 19 78/51 (56) 96 09/21/16 00:31 67 19 98/34 (67) 96 09/21/16 00:01 71 22 99/50 (69) 100 09/21/16 00:01 37.0 09/20/16 23:59 100 Mechanical Ventilator 70 09/20/16 23:59 70 09/20/16 23:31 69 21 104/43 (61) 100 09/20/16 23:07 70 09/20/16 23:01 70 19 90/36 (65) 99 09/20/16 23:01 70 09/20/16 22:31 78 24 102/50 (67) 99 8/14/17 21:46 73 23 109/52 (75) 98 8/14/17 21:31 72 21 105/48 (59) 95 814/17 21:16 74 14 98/50 (72) 96 14/17 21:02 63 18 127/42 (56) 87 8/14/17 20:56 77 27 118/90 (101) 99 14/17 20:01 73 22 130/64 (77) 94 1417 20:00 36.6 14/17 20:00 94 BiPAP 80 14/17 20:00 76 116/75 14/17 19:50 74 24 102/69 (91) 92 14/17 19:45 78 119/62 14/17 19:40 75 23 119/62 (88) 92 14/17 19:35 74 37 81/50 (68) 93 1417 19:31 74 32 76/51 (66) 94 1417 19:30 72 111/58 14/17 19:15 74 115/58 14/17 19:00 73 121/76 14/17 18:45 76 119/63 14/17 18:32 74 35 116/51 (72) 96 BiPAP 80 09/20/17 18:30 75 32 96 14/17 18:30 74 116/52 14/17 18:24 70 38 117/58 (77) 93 14/17 18:17 74 24 90/ (30) 95 14/17 18:15 84 36 94 14/17 18:15 84 119/60 14/17 18:01 81 25 119/66 (83) 94 14/17 18:00 68 21 93 14/17 18:00 80 118/65 14/17 17:50 76 26 115/67 (83) 91 814/17 17:46 82 26 104/44 (64) 92 814/17 17:45 75 115/67 14/17 17:45 82 24 93 814/17 17:32 73 28 113/50 (71) 96 14/17 17:30 77 117/60 14/17 17:30 36.8 72 35 97 8/14/17 17:16 78 23 119/59 (79) 98 09/20/16 17:15 76 21 98 09/20/16 17:15 78 118/52 09/20/16 17:01 78 30 131/83 (99) 97 BiPAP 80 09/20/16 17:00 36.9 73 128/51 (76) 09/20/16 17:00 78 29 98 09/20/16 16:46 80 20 138/67 (90) 97 09/20/16 16:45 80 19 97 BiPAP 80 09/20/16 16:31 81 20 128/74 (92) 96 09/20/16 16:30 77 21 96 09/20/16 16:16 80 20 135/74 (94) 97 BiPAP 80 09/20/16 16:15 79 28 97 09/20/16 16:02 79 20 127/38 (67) 89 09/20/16 16:00 80 20 89 09/20/16 16:00 91 BiPAP 60 09/20/16 15:56 82 20 148/93 (111) 86 BiPAP 80 09/20/16 15:54 84 20 92 09/20/16 15:46 36.0 80 20 92 15.0 09/20/16 15:21 80 92 60 09/20/16 15:14 36.0 81 20 136/73 (94) 92 BiPAP 09/20/16 12:00 92 BiPAP 60 09/20/16 11:55 36.5 75 20 120/67 (84) 92 BiPAP 09/20/16 09:06 83 17 94 BiPAP/CPAP 60 09/20/16 09:06 83 94 60 09/20/16 08:00 91 Oxymask 15.0 60 Physical Exam: General-sedated Eyes-+scleral icterus ENT-mmm Neck-supple Lungs-+cta anteriorly Heart-regular with occasional ectopy Abdomen-bs+/soft Extremities-+1 edema, right arm in sling Neuro-sedated Current Inpatient Medications Medications (Trade) Dose Ordered Sig/Michael Route Start Time Stop Time Status Last Admin Dose Admin Ondansetron HCl (Zofran Inj) 4 mg Q6H PRN IV 09/17/16 16:15 10/17/16 16:14 Sodium Biphosphate/ Sodium Phosphate (Fleet Enema) 132 ml DAILY PRN MI 09/17/16 16:15 10/17/16 16:14 Prednisone (PredniSONE TAB) 1 mg QAM PO 09/18/16 09:00 10/18/16 08:59 Future Hold 09/19/16 08:28 1 MG Miconazole Nitrate (Desenex Powder) 1 appln BID EXT 09/17/16 21:00 10/17/16 20:59 09/20/16 21:51 1 APPLN Hydrocortisone Sodium Succinate 25 mg/Syringe 0.5 ml @ 4 mls/min Q8 IV 09/19/16 14:00 10/19/16 13:59 Future Hold 09/20/16 17:02 4 MLS/MIN Midodrine (Proamatine Tab) 5 mg TID@0800,1200,1800 PO 09/19/16 18:00 10/19/16 17:59 09/19/16 18:27 5 MG Octreotide Acetate (Sandostatin Inj) 100 mcg Q8 IV 09/19/16 22:00 10/19/16 21:59 09/21/16 05:34 100 MCG Levalbuterol (Xopenex 0.63 Mg/ 3 Ml Neb) 0.63 mg Q6H PRN INH 09/20/16 08:30 10/20/16 08:29 Pantoprazole Sodium 40 mg/ Syringe 10 ml @ 5 mls/min DAILY IV 09/21/16 09:00 10/21/16 08:59 Piperacillin Sod/ Tazobactam Sod (Consult) 1 ea UD PRN N/A 09/20/16 21:15 10/20/16 21:14 Methylprednisolone Sodium Succinate 40 mg/Syringe 0.64 ml @ 1.5 mls/min TID IV 09/20/16 22:00 10/20/16 21:59 09/20/16 21:55 1.5 MLS/MIN Piperacillin Sod/ Tazobactam Sod 4.5 gm/Dextrose 120 ml @ 30 mls/hr Q8H IV 09/21/16 04:00 09/28/16 03:59 09/21/16 03:16 30 MLS/HR Lactulose (Chronulac Syrup) 30 gm BID PRN PO 09/20/16 21:15 10/20/16 21:14 Vancomycin HCl (Consult) 1 ea UD PRN N/A 09/20/16 21:45 10/20/16 21:44 Midazolam HCl (Versed Inj) 2.5 mg Q1H PRN IV 09/20/16 21:45 10/20/16 21:44 09/21/16 04:13 2.5 MG Fentanyl Citrate (Fentanyl Inj) 50 mcg Q1H PRN IV 09/20/16 21:45 10/04/16 21:44 09/21/16 04:14 50 MCG Last 24 Hours Test 09/20/16 08:31 09/20/16 10:12 09/20/16 12:52 09/20/16 16:04 Arterial Blood pH 7.21 7.27 7.26 Arterial Blood Partial Pressure CO2 55 mmHg 47 mmHg 49 mmHg Arterial Blood Partial Pressure O2 77 mm/Hg 71 mm/Hg 76 mm/Hg Arterial Blood HCO3 22 mmol/L 21 mmol/L 21 mmol/L Arterial Blood Oxygen Saturation 90.9 % 90.3 % 91.5 % Arterial Blood Base Excess -6.2 mEq/L -5.5 mEq/L -5.4 mEq/L Arterial Blood Gas Delivery 15L 60% 60% Amado Test POS POS POS Pass Ammonia 59.0 umol/L Blood Gas Sample Site L Radial Bedside Blood Gas pH (LAB) 7.22 Bedside Blood Gas pCO2 (LAB) 52 mmHg Bedside Blood Gas pO2 (LAB) 56 mmHg Bedside Blood Gas HCO3 (LAB) 21 meq/L Bedside Blood Gas Total CO2 23 mEq/l Bedside Blood Gas Base Excess (LAB) -6.0 meq/L Bedside Blood Gas O2 Saturation 83.0 % Oxygen Delivery Device BIPAP Bedside FiO2 60 % Test 09/20/16 17:17 09/20/16 18:06 09/20/16 20:26 09/20/16 23:23 Hepatitis B Surface Antigen NEG Hepatitis B Surface Antibody NEG Bedside Glucose 112 mg/dl 108 mg/dl Blood Gas Sample Site R Radial Bedside Blood Gas pH (LAB) 7.33 Bedside Blood Gas pCO2 (LAB) 45 mmHg Bedside Blood Gas pO2 (LAB) 70 mmHg Bedside Blood Gas HCO3 (LAB) 23 meq/L Bedside Blood Gas Total CO2 25 mEq/l Bedside Blood Gas Base Excess (LAB) -3.0 meq/L Bedside Blood Gas O2 Saturation 92.0 % Amado Test Pass Oxygen Delivery Device BIPAP Bedside Oxygen Rate (breaths/min) 30 Bedside FiO2 60 % Test 09/20/16 23:33 09/21/16 04:39 09/21/16 04:44 09/21/16 05:45 Ammonia 31.0 umol/L 25.0 umol/L Procalcitonin 2.10 ng/ml White Blood Count 14.39 K/uL Red Blood Count 2.90 M/uL Hemoglobin 8.0 g/dL Hematocrit 26.1 % Mean Corpuscular Volume 90.0 fL Mean Corpuscular Hemoglobin 27.6 pg Mean Corpuscular Hemoglobin Concent 30.7 g/dl RDW Standard Deviation 55.8 fL RDW Coefficient of Variation 16.9 % Platelet Count 128 K/uL Mean Platelet Volume 10.3 fL Venous Blood pH 7.25 Venous Blood Partial Pressure CO2 55 mmHg Venous Blood Partial Pressure O2 69 mmHg Venous Blood HCO3 23 mmol/L Venous Blood Oxygen Saturation 89.8 % Venous Blood Base Excess -3.6 mEq/L Sodium Level 140 mmol/L Potassium Level 3.9 mmol/L Chloride Level 108 mmol/L Carbon Dioxide Level 25 mmol/L Anion Gap 7.0 mmol/L Blood Urea Nitrogen 43 mg/dl Creatinine 1.90 mg/dl Est Creatinine Clear Calc Drug Dose 36.6 ml/min Estimated GFR () 33.1 Estimated GFR (Non- 28.6 BUN/Creatinine Ratio 22.7 Random Glucose 128 mg/dl Calcium Level 7.0 mg/dl Phosphorus Level 3.7 mg/dl Magnesium Level 1.9 mg/dl Bedside Glucose 131 mg/dl Date/Time Source Procedure Growth Status 09/21/16 04:26 Nasal MRSA DNA Surveillance Screen - Final Specimen Positive for MRSA by DNA Probe Complete 09/21/16 04:26 Sputum Trach. Tube Suction Gram Stain Pending Received 09/21/16 04:26 Sputum Trach. Tube Suction Sputum Culture Pending Received 09/20/16 19:15 Urine,Catheterized Urine Culture Pending Received Assessment & Plan ileana-atn vs HRS with signs of volume overload and now intubated and requiring daily dialysis for volume removal. holding albumin. plan on dialysis again today. bp though is low. will see if able to remove fluid on dialysis. perhaps may need a pressor.
[2016-09-21] MEDS: MICONAZOLE NITRATE POWDER 43 GM EXT SCH ×2 (08:10→20:13)
[2016-09-21] MEDS: MIDODRINE 2.5 MG TAB PO SCH ×3 (08:10→18:33)
[2016-09-21] MEDS: METHYLPREDNISOLONE IV 40 MG in SYRINGE 0 ML IV SCH ×3 (08:12→20:13)
[2016-09-21] MEDS: PANTOprazole INJ 40 MG in SYRINGE 0 ML IV SCH (08:12)
[2016-09-21 08:45] LABS: ISTAT ARTERIAL BLOOD GAS HCO3 24 meq/L (19-24); ISTAT ARTERIAL BLOOD GAS PCO2 46 mmHg (35-46); ISTAT ARTERIAL BLOOD GAS PO2 39 mmHg (80-95); ISTAT ARTERIAL BLOOD GAS pH 7.32 (7.35-7.45); ISTAT CARBON DIOXIDE 25 mEq/l (24-31); ISTAT HEMATOCRIT 26 % (37-47); ISTAT HEMOGLOBIN 8.8 g/dl (12.0-16.0); ISTAT SODIUM 138 mEq/L (135-144)
--- NOTE | 2016-09-21 10:12 | Progress Note ---
Internal Med Progress Note Date of Service: Sep 21, 2016. Provider Documentation: SUBJECTIVE: Seen and examined at bedside. Currently sedated and intubated Planned to get EEG, dialysis and bronchoscopy today OBJECTIVE: Vital Signs-as noted below Physical Exam: General Appearance:sedated and Intubated Head: normocephalic, Atraumatic Eyes: normal inspection, icteric Neck: supple, Trachea midline Respiratory/Chest: Coarse breath sounds Cardiovascular: S1, S2, + murmur Abdomen/GI:Soft, mildly distended, Bowel sounds present Extremities/Musculoskelatal:normal inspection, 1+ edema Neurologic/Psych:sedated and Intubated Skin: normal color, warm Lab data as noted below. ASSESSMENT & PLAN: Patient is a 60 yr female admitted for R humerus fracture, s/p reverse total shoulder arthroplasty ACUTE HYPOXIC AND HYPERCAPNIC RESPIRATORY FAILURE PULMONARY EDEMA POSSIBLE ASPIRATION PNEUMONIA Most likely secondary to volume overload from diastolic heart failure Chest x-ray shows bilateral infiltrates, probably pulmonary edema (although other processes are possible). S/P IV furosemide Currently getting daily dialysis for fluid overload Continue Levalbuterol neb PRN Intubated on 09/20 Vent management per ICU team S/P Bronchoscopy on 09/21 Follow up bronchial washings studies Continue empiric antibiotics: Vanco and Zosyn Bubble Study:no interatrial shunt and no findings to suggest hepatopulmonary shunt ECHO from 12/22/15: EF:55-59% H/O P. ATRIAL TACHYCARDIA Currently rate controlled Was on propranolol at home ENCEPHALOPATHY: Likely multifactorial: medications, hepatic encephalopathy, hypercapnia EEG: indicates moderate encephalopathy of nonspecific etiology CT head:pending Neurology consulted CARLOS ENRIQUE/ATN Vs HRS CKD III Cr:1.9 today Ketorolac discontinued. Initially received IVFs and hydrocortisone. Appreciate Nephrology help Continue albumin, midodrine, octreotide for hepatorenal syndrome. Requiring daily dialysis for fluid overload BILIARY CIRRHOSIS MELD 24 Appreciate GI input continue lactulose for hepatic encephalopathy. Ammonia level: 59 >>>25 ABD USD: no ascites Continue Octreotide, Midodrine Needs to have Hepatology eval for possible liver/kidney transplant CHRONIC STEROID THERAPY Chronic prednisone therapy for chronic pericarditis. S/P IV hydrocortisone Resume PO prednisone when able S/P Right reverse total shoulder arthroplasty, removal of deep hardware right proximal humerus, debridement of olecranon ulcer right elbow POD # 4 Orthopedics following DVT Px: SCD's Vital Signs: Date Time Temp Pulse Resp B/P (MAP) Pulse Ox O2 Delivery O2 Flow Rate FiO2 09/21/16 17:15 64 108/52 09/21/16 17:00 74 122/45 09/21/16 16:45 74 125/67 09/21/16 16:30 67 99/49 09/21/16 16:15 68 110/46 09/21/16 16:00 50 09/21/16 16:00 62 123/44 09/21/16 16:00 97 Mechanical Ventilator 50 09/21/16 15:45 60 110/45 09/21/16 15:30 60 112/48 09/21/16 15:15 66 110/45 09/21/16 15:00 67 121/53 09/21/16 14:45 70 117/51 09/21/16 14:37 68 126/50 09/21/16 14:00 65 16 114/47 (69) 95 Mechanical Ventilator 50 09/21/16 14:00 36.5 66 114/47 (69) 09/21/16 13:39 50 09/21/16 13:30 75 24 90/53 (65) 96 09/21/16 13:00 67 18 105/38 (60) 98 09/21/16 12:30 70 23 103/43 (63) 91 Mechanical Ventilator 50 09/21/16 12:09 36.7 67 20 98/50 (66) 95 09/21/16 12:01 70 21 98/50 (66) 93 09/21/16 12:00 50 09/21/16 12:00 68 22 92 09/21/16 12:00 96 Mechanical Ventilator 50 09/21/16 11:31 67 20 101/51 (68) 96 Mechanical Ventilator 50 09/21/16 11:02 50 09/21/16 11:01 69 18 117/39 (65) 96 09/21/16 11:00 69 19 96 09/21/16 10:22 50 09/21/16 10:01 65 16 92/37 (55) 96 Mechanical Ventilator 50 09/21/16 10:00 66 21 95 09/21/16 09:31 67 25 97/36 (56) 95 Mechanical Ventilator 50 09/21/16 09:30 69 20 96 09/21/16 09:01 71 24 94/56 (69) 94 Mechanical Ventilator 50 09/21/16 09:00 71 23 94 09/21/16 08:31 69 26 90/45 (60) 91 Mechanical Ventilator 50 09/21/16 08:30 69 20 94 09/21/16 08:29 CPAP 50 Mechanical Ventilator 09/21/16 08:02 36.7 74 23 92/44 (60) 92 Mechanical Ventilator 50 09/21/16 08:00 70 21 95 09/21/16 07:45 50 09/21/16 07:45 93 Mechanical Ventilator 50 09/21/16 07:31 70 20 93/40 (57) 93 09/21/16 07:30 72 21 94 09/21/16 07:22 50 09/21/16 07:01 70 20 84/43 (57) 97 09/21/16 07:00 69 20 97 09/21/16 06:01 65 21 91/41 (57) 98 09/21/16 05:31 68 19 95/45 (73) 98 09/21/16 05:01 65 20 89/40 (58) 98 09/21/16 05:00 60 09/21/16 04:32 69 19 80/36 (46) 96 09/21/16 04:15 60 09/21/16 04:01 65 19 90/37 (66) 98 09/21/16 04:00 60 09/21/16 04:00 37.0 09/21/16 04:00 97 Mechanical Ventilator 60 09/21/16 03:31 65 17 95/38 (68) 97 09/21/16 03:01 64 21 81/43 (50) 98 09/21/16 02:31 61 18 85/44 (60) 98 09/21/16 02:01 70 26 110/46 (60) 90 09/21/16 01:35 60 09/21/16 01:31 66 21 104/36 (63) 97 09/21/16 01:01 66 19 78/51 (56) 96 09/21/16 00:31 67 19 98/34 (67) 96 09/21/16 00:01 71 22 99/50 (69) 100 09/21/16 00:01 37.0 09/20/16 23:59 100 Mechanical Ventilator 70 09/20/16 23:59 70 09/20/16 23:31 69 21 104/43 (61) 100 09/20/16 23:07 70 09/20/16 23:01 70 19 90/36 (65) 99 09/20/16 23:01 70 09/20/16 22:31 78 24 102/50 (67) 99 09/20/16 21:46 73 23 109/52 (75) 98 09/20/16 21:31 72 21 105/48 (59) 95 09/20/16 21:16 74 14 98/50 (72) 96 09/20/16 21:02 63 18 127/42 (56) 87 09/20/16 20:56 77 27 118/90 (101) 99 09/20/16 20:01 73 22 130/64 (77) 94 09/20/16 20:00 36.6 09/20/16 20:00 94 BiPAP 80 09/20/16 20:00 76 116/75 09/20/16 19:50 74 24 102/69 (91) 92 09/20/16 19:45 78 119/62 09/20/16 19:40 75 23 119/62 (88) 92 09/20/16 19:35 74 37 81/50 (68) 93 09/20/16 19:31 74 32 76/51 (66) 94 09/20/16 19:30 72 111/58 09/20/16 19:15 74 115/58 09/20/16 19:00 73 121/76 09/20/16 18:45 76 119/63 09/20/16 18:32 74 35 116/51 (72) 96 BiPAP 80 09/20/16 18:30 75 32 96 09/20/16 18:30 74 116/52 09/20/16 18:24 70 38 117/58 (77) 93 09/20/16 18:17 74 24 90/ (30) 95 09/20/16 18:15 84 36 94 09/20/16 18:15 84 119/60 09/20/16 18:01 81 25 119/66 (83) 94 09/20/16 18:00 68 21 93 09/20/16 18:00 80 118/65 Lab Results: Results Past 24 Hours Test 09/20/16 18:06 09/20/16 20:26 09/20/16 23:23 09/20/16 23:33 Range/Units Bedside Glucose 112 108 70-90 mg/dl Blood Gas Sample Site R Radial Bedside Blood Gas pH (LAB) 7.33 7.35-7.45 Bedside Blood Gas pCO2 (LAB) 45 35-46 mmHg Bedside Blood Gas pO2 (LAB) 70 80-95 mmHg Bedside Blood Gas HCO3 (LAB) 23 19-24 meq/L Bedside Blood Gas Total CO2 25 24-31 mEq/l Bedside Blood Gas Base Excess (LAB) -3.0 -9-1.8 meq/L Bedside Blood Gas O2 Saturation 92.0 90-95 % Amado Test Pass Oxygen Delivery Device BIPAP Bedside Oxygen Rate (breaths/min) 30 Bedside FiO2 60 % Ammonia 31.0 11-32 umol/L Procalcitonin 2.10 0-0.5 ng/ml Test 09/21/16 04:39 09/21/16 05:45 09/21/16 08:34 09/21/16 11:31 Range/Units White Blood Count 14.39 4.8-10.8 K/uL Red Blood Count 2.90 4.2-5.4 M/uL Hemoglobin 8.0 12.0-16.0 g/dL Hematocrit 26.1 37-47 % Mean Corpuscular Volume 90.0 80-100 fL Mean Corpuscular Hemoglobin 27.6 25-34 pg Mean Corpuscular Hemoglobin Concent 30.7 32-36 g/dl RDW Standard Deviation 55.8 36.4-46.3 fL RDW Coefficient of Variation 16.9 11.5-14.5 % Platelet Count 128 130-400 K/uL Mean Platelet Volume 10.3 7.4-10.4 fL Venous Blood pH 7.25 7.36-7.41 Venous Blood Partial Pressure CO2 55 38.0-50.0 mmHg Venous Blood Partial Pressure O2 69 mmHg Venous Blood HCO3 23 mmol/L Venous Blood Oxygen Saturation 89.8 % Venous Blood Base Excess -3.6 mEq/L Sodium Level 140 136-145 mmol/L Potassium Level 3.9 3.5-5.1 mmol/L Chloride Level 108 98-107 mmol/L Carbon Dioxide Level 25 21-32 mmol/L Anion Gap 7.0 3-11 mmol/L Blood Urea Nitrogen 43 7-18 mg/dl Creatinine 1.90 0.60-1.20 mg/dl Est Creatinine Clear Calc Drug Dose 36.6 ml/min Estimated GFR () 33.1 Estimated GFR (Non- 28.6 BUN/Creatinine Ratio 22.7 10-20 Random Glucose 128 70-99 mg/dl Calcium Level 7.0 8.5-10.1 mg/dl Phosphorus Level 3.7 2.5-4.9 mg/dl Magnesium Level 1.9 1.8-2.4 mg/dl Ammonia 25.0 11-32 umol/L Bedside Glucose 131 140 70-90 mg/dl Bedside Hemoglobin 8.8 12.0-16.0 g/dl Bedside Hematocrit 26 37-47 % Bedside Blood Gas pH (LAB) 7.32 7.35-7.45 Bedside Blood Gas pCO2 (LAB) 46 35-46 mmHg Bedside Blood Gas pO2 (LAB) 39 80-95 mmHg Bedside Blood Gas HCO3 (LAB) 24 19-24 meq/L Bedside Blood Gas Total CO2 25 24-31 mEq/l Bedside Blood Gas Base Excess (LAB) -3.0 -9-1.8 meq/L Bedside Blood Gas O2 Saturation 69.0 90-95 % Bedside Sodium 138 135-144 mEq/L Bedside Potassium 3.9 3.3-5.0 mEq/L Test 09/21/16 12:04 09/21/16 15:29 Range/Units White Blood Count 13.05 4.8-10.8 K/uL Red Blood Count 2.75 4.2-5.4 M/uL Hemoglobin 8.1 12.0-16.0 g/dL Hematocrit 24.6 37-47 % Mean Corpuscular Volume 89.5 80-100 fL Mean Corpuscular Hemoglobin 29.5 25-34 pg Mean Corpuscular Hemoglobin Concent 32.9 32-36 g/dl RDW Standard Deviation 54.5 36.4-46.3 fL RDW Coefficient of Variation 16.9 11.5-14.5 % Platelet Count 137 130-400 K/uL Mean Platelet Volume 10.7 7.4-10.4 fL Random Vancomycin Level 29.6 mcg/ml Microbiology Results 09/21/16 MRSA DNA Surveillance Screen - Final, Complete Specimen Positive for MRSA by DNA Probe 09/21/16 Fungal Smear, Received Pending 09/21/16 Fungal Culture, Received Pending 09/21/16 Acid Fast Stain, Received Pending 09/21/16 Mycobacterial Culture, Received Pending 09/21/16 Gram Stain, Received Pending 09/21/16 Bronchoalveolar Lavage Culture, Received Pending 09/21/16 Gram Stain - Final, Resulted 09/21/16 Sputum Culture, Resulted Pending 09/20/16 Urine Culture - Preliminary, Resulted NO GROWTH - LESS THAN 1,000 COLONIES/...
[2016-09-21] MEDS ORDERED: NOREPINEPHRINE BIT INJ 8 MG in DEXTROSE 5% 500ML 500 ML IV PRN (10:15)
--- NOTE | 2016-09-21 11:51 | Pharmacy Progress Note ---
Pharmacy Abx Initial Consult Date of Service Sep 21, 2016. Pharmacy Dosing Scope Date of Consult: 09/20/16 Consultation requested by: Dr. Tong Pharmacy is consulted to initiate Vancomycin IV dosing therapy, order appropriate labs and adjust drug dose/frequency. Subjective The patient is a 60 year old female admitted on Sep 17, 2016 at 11:26. Objective Height (Feet): 5 Height (Inches): 5.00 Weight (Kilograms): 90.300 Vital Signs (Past 12Hrs) Vital Signs Past 12 Hours Date Time Temp Pulse Resp B/P (MAP) Pulse Ox O2 Delivery O2 Flow Rate FiO2 09/21/16 11:02 50 09/21/16 10:22 50 09/21/16 10:01 65 16 92/37 (55) 96 Mechanical Ventilator 50 09/21/16 10:00 66 21 95 09/21/16 09:31 67 25 97/36 (56) 95 Mechanical Ventilator 50 09/21/16 09:30 69 20 96 09/21/16 09:01 71 24 94/56 (69) 94 Mechanical Ventilator 50 09/21/16 09:00 71 23 94 09/21/16 08:31 69 26 90/45 (60) 91 Mechanical Ventilator 50 09/21/16 08:30 69 20 94 09/21/16 08:29 CPAP 50 Mechanical Ventilator 09/21/16 08:02 36.7 74 23 92/44 (60) 92 Mechanical Ventilator 50 09/21/16 08:00 70 21 95 09/21/16 07:45 50 09/21/16 07:45 93 Mechanical Ventilator 50 09/21/16 07:31 70 20 93/40 (57) 93 09/21/16 07:30 72 21 94 09/21/16 07:22 50 09/21/16 07:01 70 20 84/43 (57) 97 09/21/16 07:00 69 20 97 09/21/16 06:01 65 21 91/41 (57) 98 09/21/16 05:31 68 19 95/45 (73) 98 09/21/16 05:01 65 20 89/40 (58) 98 09/21/16 05:00 60 09/21/16 04:32 69 19 80/36 (46) 96 09/21/16 04:15 60 09/21/16 04:01 65 19 90/37 (66) 98 09/21/16 04:00 60 09/21/16 04:00 37.0 09/21/16 04:00 97 Mechanical Ventilator 60 09/21/16 03:31 65 17 95/38 (68) 97 09/21/16 03:01 64 21 81/43 (50) 98 09/21/16 02:31 61 18 85/44 (60) 98 09/21/16 02:01 70 26 110/46 (60) 90 09/21/16 01:35 60 09/21/16 01:31 66 21 104/36 (63) 97 09/21/16 01:01 66 19 78/51 (56) 96 09/21/16 00:31 67 19 98/34 (67) 96 09/21/16 00:01 71 22 99/50 (69) 100 09/21/16 00:01 37.0 09/20/16 23:59 100 Mechanical Ventilator 70 09/20/16 23:59 70 Lab Results (24Hrs) Laboratory Tests (24 Hours) Test 09/20/16 23:33 09/21/16 04:39 Procalcitonin 2.10 ng/ml (0-0.5) H White Blood Count 14.39 K/uL (4.8-10.8) H Micro Results Date/Time Source Procedure Growth Status 09/21/16 04:26 Nasal MRSA DNA Surveillance Screen - Final Specimen Positive for MRSA by DNA Probe Complete 09/21/16 04:26 Sputum Trach. Tube Suction Gram Stain - Final Resulted 09/21/16 04:26 Sputum Trach. Tube Suction Sputum Culture Pending Resulted 09/20/16 19:15 Urine,Catheterized Urine Culture Pending Received Risk Factors for Resistance * Hospitalization for 48 hours or more within the past 90 days Assessment & Plan Assessment 60 year old female initiated on Vancomycin/Zosyn IV for pulmonary source. Patient with biliary cirrhosis with CARLOS ENRIQUE/ATN vs HRS- temporary dialysis catheter placed 09/20/16. -Dialysis 09/20/16 @1600 -Dialysis ordered for 09/21/16 Blood cultures pending. MRSA swab positive. Urine culture pending. Sputum pending. Plan Vancomycin IV * Loading dose: 2000 mg (20 mg/kg) * Maintenance dosing will be based on Pre-HD levels. * Pre-HD level today @1200 = 29.6 * Do not re-dose patient today. * Goal level for pulmonary source: 15 to 20 mcg/mL * Random level ordered for 09/22/16 with AM labs Piperacillin/tazobactam * 4.5 g bolus administered over 30 minutes, then 4.5 g IV extended infusion every 12 hours for dialysis. * Aggressive dosing selected due to critically ill status. Pharmacy will continue to follow and will adjust dose/frequency as necessary. Thank you.
--- NOTE | 2016-09-21 11:57 | Critical Care Progress Note ---
Critical Care Progress Note Date of Service Sep 21, 2016. ICU Day ICU Day Number: [address] Tong Subjective Patient unresponsive. Unable to obtain ROS. Objective GENERAL: unresponsive, thin, lying in bed, intubated and ventilated HEAD: Normocephalic, atraumatic. EYES: Normal sclera and conjunctiva NECK: Supple, no adenopathy LUNGS: Normal chest wall mechanics, poor air entry. No crackles, or wheezes HEART: S1 and S2 normal, no murmurs ABDOMEN: abdomen soft, diminished bowel sounds, no masses, no rebound or guarding. SKIN: Warm, pink, dry. No rashes, or bruising. EXTREMITIES: Bandage on arms from shoulder. Bilateral lower extremity edema NEURO: Unresponsive. No obvious asymmetry. Pupils equal. Current SOFA Score SOFA Score Response (Comments) Value Platelets (x10) < 150 1 Bilirubin (mg/dL) 2.0 - 5.9 2 Ariana Coma Score < 6 4 Level of Hypotension No Hypotension 0 Creatinine (mg/dL) 1.2 - 1.9 1 Total 8 Assessment & Plan 60 year old female post op from orthopedic surgery with altered mental status requiring intubation for impending hypoxic and hypercapnic respiratory failure Neuro - CAM positive - Initially sedated with fentanyl and Versed, discontinued at 09/21/16 @ 04:51 - EEG shows moderate encephalopathy of nonspecific etiology. Neurology consulted - Ammonia previously elevated, was given lactulose and currently ammonia levels within normal range - Continue to monitor for changes in RASS CV - BP noted to be 80-low 100's systolic. Levophed ordered PRN during dialysis if needed only. - Echo confirmed intact interatrial septum with no evidence for a hepaptopulmonary shunt. confirmed via bubble study Resp: - Intubated with ventilator support: CPAP, patient breathing 29 breaths/min, PSV 12, PEEP 8, FiO2 50, End tidal CO2 55 - Plans to switch ventilator to assisted control - Bronchoscopy performed. Samples sent for cultures. Abdo/GI - Evidence of hepatorenal syndrome. Patient awaiting transplant. MELD score 30. GI consulted. - Continue lactulose - Continue to trend LFTS - GI prophylaxs: IV pantoprazole 40mg BID - Enteral nutrition as per shredder tender Renal/Fluid - Dialysis received yesterday with removal of 3L of fluid. Creatinine improved subsequently. Plans to repeat dialysis today - Limiting fluids secondary to fluid overload. Trending BMP - Continue strict I&O's - urine perez in situ ID - Afebrile with leukocytosis. Procalcitonin elevated - Continue coverage with Zosyn and Vancomycin. Source of infection not confirmed , UTI vs. pneumonia Endo - Continue methylprednisone for now, plans to taper/stop tomorrow - Continue monitoring blood glucose Access - 2x peripheral IV, 1x central trialysis catheter Resident Physician Supervision Note: Dr. Weaver was resident physician during care of patient. I separately evaluated patient and did history and exam. I discussed the case with the resident and generally agree with the findings and plan. Patient with hepatic insufficiency on transplant list at 1. who presented with worsening mental status status post right upper extremity revision of implanted hardware. Intubated secondary to work of breathing and volume overload in the setting of possible hepatorenal syndrome versus CARLOS ENRQIUE/ATN or a combination thereof. Neurology consult to rule out other causes of encephalopathy. Bronchoscopy to rule out occult infection/pneumonia and possible transplant candidate. Discussed patient's condition with patient's appropriately concerned, voiced frustration regarding the organ transplant process in general. Additional family at bedside providing support. I have personally spent 65 minutes of critical care time in the direct management of this patient. This is a life/limb threatening event. This includes time spent evaluating patient, direct bedside care, chart review, placing orders, interpretation of diagnostic studies, discussion with consultants, patient, and family members, as well as other required patient management activities. This time is exclusive of all separately billable procedures, and teaching time and separate from and in addition to any other critical care service time. Documented By: Toi Tong DO Consults & Procedures Consultants: Gastroenterology: Dr. Noel Neurology: Dr. Dunn Nephrology: Oncmario Orthopedics: Dr. Fontenot Wound care: Dr. Yeung Procedures: 09/17/16: Right reverse total shoulder arthroplasty, removal of deep hardware right proximal humerus, debridement of olecranon ulcer right elbow 09/20/16: Trialysis central catheter inserted 09/20/16: Intubated 09/21/16: Bronchoscopy Data Medications: Current Inpatient Medications Medications (Trade) Dose Ordered Sig/Michael Route Start Time Stop Time Status Last Admin Dose Admin Ondansetron HCl (Zofran Inj) 4 mg Q6H PRN IV 09/17/16 16:15 10/17/16 16:14 Sodium Biphosphate/ Sodium Phosphate (Fleet Enema) 132 ml DAILY PRN VT 09/17/16 16:15 10/17/16 16:14 Prednisone (PredniSONE TAB) 1 mg QAM PO 09/18/16 09:00 10/18/16 08:59 Future Hold 09/19/16 08:28 1 MG Miconazole Nitrate (Desenex Powder) 1 appln BID EXT 09/17/16 21:00 10/17/16 20:59 09/21/16 08:10 1 APPLN Hydrocortisone Sodium Succinate 25 mg/Syringe 0.5 ml @ 4 mls/min Q8 IV 09/19/16 14:00 10/19/16 13:59 Future Hold 09/20/16 17:02 4 MLS/MIN Midodrine (Proamatine Tab) 5 mg TID@0800,1200,1800 PO 09/19/16 18:00 10/19/16 17:59 09/21/16 08:10 5 MG Octreotide Acetate (Sandostatin Inj) 100 mcg Q8 IV 09/19/16 22:00 10/19/16 21:59 09/21/16 05:34 100 MCG Levalbuterol (Xopenex 0.63 Mg/ 3 Ml Neb) 0.63 mg Q6H PRN INH 09/20/16 08:30 10/20/16 08:29 Pantoprazole Sodium 40 mg/ Syringe 10 ml @ 5 mls/min DAILY IV 09/21/16 09:00 10/21/16 08:59 09/21/16 08:12 5 MLS/MIN Piperacillin Sod/ Tazobactam Sod (Consult) 1 ea UD PRN N/A 09/20/16 21:15 10/20/16 21:14 Methylprednisolone Sodium Succinate 40 mg/Syringe 0.64 ml @ 1.5 mls/min TID IV 09/20/16 22:00 10/20/16 21:59 09/21/16 08:12 1.5 MLS/MIN Piperacillin Sod/ Tazobactam Sod 4.5 gm/Dextrose 120 ml @ 30 mls/hr Q8H IV 09/21/16 04:00 09/28/16 03:59 09/21/16 03:16 30 MLS/HR Lactulose (Chronulac Syrup) 30 gm BID PRN PO 09/20/16 21:15 10/20/16 21:14 Vancomycin HCl (Consult) 1 ea UD PRN N/A 09/20/16 21:45 10/20/16 21:44 Midazolam HCl (Versed Inj) 2.5 mg Q1H PRN IV 09/20/16 21:45 10/20/16 21:44 Future Hold 09/21/16 04:13 2.5 MG Fentanyl Citrate (Fentanyl Inj) 50 mcg Q1H PRN IV 09/20/16 21:45 10/04/16 21:44 Future Hold 09/21/16 04:14 50 MCG Norepinephrine Bitartrate 8 mg/ Dextrose 508 ml @ 0 mls/hr Q0M PRN IV 09/21/16 10:15 10/21/16 10:14 Vital Signs: Date Time Temp Pulse Resp B/P (MAP) Pulse Ox O2 Delivery O2 Flow Rate FiO2 09/21/16 11:02 50 09/21/16 10:22 50 09/21/16 10:01 65 16 92/37 (55) 96 Mechanical Ventilator 50 09/21/16 10:00 66 21 95 09/21/16 09:31 67 25 97/36 (56) 95 Mechanical Ventilator 50 09/21/16 09:30 69 20 96 09/21/16 09:01 71 24 94/56 (69) 94 Mechanical Ventilator 50 09/21/16 09:00 71 23 94 09/21/16 08:31 69 26 90/45 (60) 91 Mechanical Ventilator 50 09/21/16 08:30 69 20 94 09/21/16 08:29 CPAP 50 Mechanical Ventilator 09/21/16 08:02 36.7 74 23 92/44 (60) 92 Mechanical Ventilator 50 09/21/16 08:00 70 21 95 09/21/16 07:45 50 09/21/16 07:45 93 Mechanical Ventilator 50 09/21/16 07:31 70 20 93/40 (57) 93 09/21/16 07:30 72 21 94 09/21/16 07:22 50 09/21/16 07:01 70 20 84/43 (57) 97 09/21/16 07:00 69 20 97 09/21/16 06:01 65 21 91/41 (57) 98 09/21/16 05:31 68 19 95/45 (73) 98 09/21/16 05:01 65 20 89/40 (58) 98 09/21/16 05:00 60 09/21/16 04:32 69 19 80/36 (46) 96 09/21/16 04:15 60 09/21/16 04:01 65 19 90/37 (66) 98 09/21/16 04:00 60 09/21/16 04:00 37.0 09/21/16 04:00 97 Mechanical Ventilator 60 09/21/16 03:31 65 17 95/38 (68) 97 09/21/16 03:01 64 21 81/43 (50) 98 09/21/16 02:31 61 18 85/44 (60) 98 09/21/16 02:01 70 26 110/46 (60) 90 09/21/16 01:35 60 09/21/16 01:31 66 21 104/36 (63) 97 09/21/16 01:01 66 19 78/51 (56) 96 09/21/16 00:31 67 19 98/34 (67) 96 09/21/16 00:01 71 22 99/50 (69) 100 09/21/16 00:01 37.0 09/20/16 23:59 100 Mechanical Ventilator 70 09/20/16 23:59 70 09/20/16 23:31 69 21 104/43 (61) 100 09/20/16 23:07 70 09/20/16 23:01 70 19 90/36 (65) 99 09/20/16 23:01 70 09/20/16 22:31 78 24 102/50 (67) 99 09/20/16 21:46 73 23 109/52 (75) 98 09/20/16 21:31 72 21 105/48 (59) 95 09/20/16 21:16 74 14 98/50 (72) 96 09/20/16 21:02 63 18 127/42 (56) 87 09/20/16 20:56 77 27 118/90 (101) 99 09/20/16 20:01 73 22 130/64 (77) 94 09/20/16 20:00 36.6 09/20/16 20:00 94 BiPAP 80 09/20/16 20:00 76 116/75 8/14/17 19:50 74 24 102/69 (91) 92 8/14/17 19:45 78 119/62 8/14/17 19:40 75 23 119/62 (88) 92 8/14/17 19:35 74 37 81/50 (68) 93 8/14/17 19:31 74 32 76/51 (66) 94 8/14/17 19:30 72 111/58 814/17 19:15 74 115/58 814/17 19:00 73 121/76 14/17 18:45 76 119/63 814/17 18:32 74 35 116/51 (72) 96 BiPAP 80 14/17 18:30 75 32 96 14/17 18:30 74 116/52 814/17 18:24 70 38 117/58 (77) 93 814/17 18:17 74 24 90/ (30) 95 814/17 18:15 84 36 94 14/17 18:15 84 119/60 14/17 18:01 81 25 119/66 (83) 94 814/17 18:00 68 21 93 814/17 18:00 80 118/65 814/17 17:50 76 26 115/67 (83) 91 814/17 17:46 82 26 104/44 (64) 92 814/17 17:45 75 115/67 814/17 17:45 82 24 93 8/14/17 17:32 73 28 113/50 (71) 96 14/17 17:30 77 117/60 814/17 17:30 36.8 72 35 97 14/17 17:16 78 23 119/59 (79) 98 814/17 17:15 76 21 98 8/14/17 17:15 78 118/52 814/17 17:01 78 30 131/83 (99) 97 BiPAP 80 814/17 17:00 36.9 73 128/51 (76) 814/17 17:00 78 29 98 8/14/17 16:46 80 20 138/67 (90) 97 8/14/17 16:45 80 19 97 BiPAP 80 814/17 16:31 81 20 128/74 (92) 96 8/14/17 16:30 77 21 96 09/20/16 16:16 80 20 135/74 (94) 97 BiPAP 80 09/20/16 16:15 79 28 97 09/20/16 16:02 79 20 127/38 (67) 89 09/20/16 16:00 80 20 89 09/20/16 16:00 91 BiPAP 60 09/20/16 15:56 82 20 148/93 (111) 86 BiPAP 80 09/20/16 15:54 84 20 92 09/20/16 15:46 36.0 80 20 92 15.0 09/20/16 15:21 80 92 60 09/20/16 15:14 36.0 81 20 136/73 (94) 92 BiPAP 09/20/16 12:00 92 BiPAP 60 Laboratory Results: Last 24 Hours Test 09/20/16 12:52 09/20/16 16:04 09/20/16 16:13 09/20/16 17:17 Arterial Blood pH 7.26 Arterial Blood Partial Pressure CO2 49 mmHg Arterial Blood Partial Pressure O2 76 mm/Hg Arterial Blood HCO3 21 mmol/L Arterial Blood Oxygen Saturation 91.5 % Arterial Blood Base Excess -5.4 mEq/L Arterial Blood Gas Delivery 60% Amado Test POS Pass Blood Gas Sample Site L Radial Bedside Blood Gas pH (LAB) 7.22 Bedside Blood Gas pCO2 (LAB) 52 mmHg Bedside Blood Gas pO2 (LAB) 56 mmHg Bedside Blood Gas HCO3 (LAB) 21 meq/L Bedside Blood Gas Total CO2 23 mEq/l Bedside Blood Gas Base Excess (LAB) -6.0 meq/L Bedside Blood Gas O2 Saturation 83.0 % Oxygen Delivery Device BIPAP Bedside FiO2 60 % Bedside Lactic Acid Venous 1.29 mmol/L Hepatitis B Surface Antigen NEG Hepatitis B Surface Antibody NEG Test 09/20/16 18:06 09/20/16 20:26 09/20/16 23:23 09/20/16 23:33 Bedside Glucose 112 mg/dl 108 mg/dl Blood Gas Sample Site R Radial Bedside Blood Gas pH (LAB) 7.33 Bedside Blood Gas pCO2 (LAB) 45 mmHg Bedside Blood Gas pO2 (LAB) 70 mmHg Bedside Blood Gas HCO3 (LAB) 23 meq/L Bedside Blood Gas Total CO2 25 mEq/l Bedside Blood Gas Base Excess (LAB) -3.0 meq/L Bedside Blood Gas O2 Saturation 92.0 % Amado Test Pass Oxygen Delivery Device BIPAP Bedside Oxygen Rate (breaths/min) 30 Bedside FiO2 60 % Ammonia 31.0 umol/L Procalcitonin 2.10 ng/ml Test 09/21/16 04:39 09/21/16 04:44 09/21/16 05:45 09/21/16 08:34 White Blood Count 14.39 K/uL Red Blood Count 2.90 M/uL Hemoglobin 8.0 g/dL Hematocrit 26.1 % Mean Corpuscular Volume 90.0 fL Mean Corpuscular Hemoglobin 27.6 pg Mean Corpuscular Hemoglobin Concent 30.7 g/dl RDW Standard Deviation 55.8 fL RDW Coefficient of Variation 16.9 % Platelet Count 128 K/uL Mean Platelet Volume 10.3 fL Venous Blood pH 7.25 Venous Blood Partial Pressure CO2 55 mmHg Venous Blood Partial Pressure O2 69 mmHg Venous Blood HCO3 23 mmol/L Venous Blood Oxygen Saturation 89.8 % Venous Blood Base Excess -3.6 mEq/L Sodium Level 140 mmol/L Potassium Level 3.9 mmol/L Chloride Level 108 mmol/L Carbon Dioxide Level 25 mmol/L Anion Gap 7.0 mmol/L Blood Urea Nitrogen 43 mg/dl Creatinine 1.90 mg/dl Est Creatinine Clear Calc Drug Dose 36.6 ml/min Estimated GFR () 33.1 Estimated GFR (Non- 28.6 BUN/Creatinine Ratio 22.7 Random Glucose 128 mg/dl Calcium Level 7.0 mg/dl Phosphorus Level 3.7 mg/dl Magnesium Level 1.9 mg/dl Ammonia 25.0 umol/L Bedside Glucose 131 mg/dl Bedside Hemoglobin 8.8 g/dl Bedside Hematocrit 26 % Bedside Blood Gas pH (LAB) 7.32 Bedside Blood Gas pCO2 (LAB) 46 mmHg Bedside Blood Gas pO2 (LAB) 39 mmHg Bedside Blood Gas HCO3 (LAB) 24 meq/L Bedside Blood Gas Total CO2 25 mEq/l Bedside Blood Gas Base Excess (LAB) -3.0 meq/L Bedside Blood Gas O2 Saturation 69.0 % Bedside Sodium 138 mEq/L Bedside Potassium 3.9 mEq/L Resident Tracking Resident Involvement: Resident Care Provided Care Provided: Adult Hospital Medicine
[2016-09-21 12:17] LABS: HEMATOCRIT 24.6 % (37-47); MEAN CELL VOLUME 89.5 fL (80-100); MEAN CORPUSCULAR HEMOGLOBIN 29.5 pg (25-34); MEAN CORPUSCULAR HGB CONC 32.9 g/dl (32-36); MEAN PLATELET VOLUME 10.7 fL (7.4-10.4); PLATELET COUNT 137 K/uL (130-400); RED BLOOD COUNT 2.75 M/uL (4.2-5.4); WHITE BLOOD COUNT 13.05 K/uL (4.8-10.8)
--- NOTE | 2016-09-21 12:20 | EEG Procedure Note ---
EEG Procedure Note Date of Service Sep 21, 2016. Start / End Times Start Time: 9:12 AM End Time: 9:32 AM Referring Physician Charo Hardy History This is a 60-year-old female who is unresponsive. EEG for further evaluation of unresponsive state and rule out subclinical seizures. Home Medication List Scheduled Cholecalciferol (Vitamin D3), 1,000 UNITS PO QAM Ferrous Gluconate (Ferrous Gluconate), 324 MG PO TID Furosemide (Furosemide), 100 MG PO DAILY Gabapentin (Neurontin), 300 MG PO TID Hydroxyzine Hcl (Atarax), 50 MG PO HS Obeticholic Acid (Ocaliva), 5 MG PO TUESDAY Prednisone (Prednisone), 1 MG PO QAM Propranolol (Inderal), 10 MG PO QAM Sertraline (Zoloft), 50 MG PO QAM Spironolactone (Aldactone), 100 MG PO QAM Trazodone Hcl (Trazodone), 100 MG PO HS Ursodiol (Ursodiol), 600 MG PO BID Inpatient Medication List Current Inpatient Medications Medications (Trade) Dose Ordered Sig/Michael Route Start Time Stop Time Status Last Admin Dose Admin Ondansetron HCl (Zofran Inj) 4 mg Q6H PRN IV 09/17/16 16:15 10/17/16 16:14 Sodium Biphosphate/ Sodium Phosphate (Fleet Enema) 132 ml DAILY PRN MA 09/17/16 16:15 10/17/16 16:14 Prednisone (PredniSONE TAB) 1 mg QAM PO 09/18/16 09:00 10/18/16 08:59 Future Hold 09/19/16 08:28 1 MG Miconazole Nitrate (Desenex Powder) 1 appln BID EXT 09/17/16 21:00 10/17/16 20:59 09/21/16 08:10 1 APPLN Hydrocortisone Sodium Succinate 25 mg/Syringe 0.5 ml @ 4 mls/min Q8 IV 09/19/16 14:00 10/19/16 13:59 Future Hold 09/20/16 17:02 4 MLS/MIN Midodrine (Proamatine Tab) 5 mg TID@0800,1200,1800 PO 09/19/16 18:00 10/19/16 17:59 09/21/16 12:06 5 MG Octreotide Acetate (Sandostatin Inj) 100 mcg Q8 IV 09/19/16 22:00 10/19/16 21:59 09/21/16 05:34 100 MCG Levalbuterol (Xopenex 0.63 Mg/ 3 Ml Neb) 0.63 mg Q6H PRN INH 09/20/16 08:30 10/20/16 08:29 Pantoprazole Sodium 40 mg/ Syringe 10 ml @ 5 mls/min DAILY IV 09/21/16 09:00 10/21/16 08:59 09/21/16 08:12 5 MLS/MIN Piperacillin Sod/ Tazobactam Sod (Consult) 1 ea UD PRN N/A 09/20/16 21:15 10/20/16 21:14 Methylprednisolone Sodium Succinate 40 mg/Syringe 0.64 ml @ 1.5 mls/min TID IV 09/20/16 22:00 10/20/16 21:59 09/21/16 08:12 1.5 MLS/MIN Piperacillin Sod/ Tazobactam Sod 4.5 gm/Dextrose 120 ml @ 30 mls/hr Q8H IV 09/21/16 04:00 09/28/16 03:59 09/21/16 12:05 30 MLS/HR Lactulose (Chronulac Syrup) 30 gm BID PRN PO 09/20/16 21:15 10/20/16 21:14 Vancomycin HCl (Consult) 1 ea UD PRN N/A 09/20/16 21:45 10/20/16 21:44 Midazolam HCl (Versed Inj) 2.5 mg Q1H PRN IV 09/20/16 21:45 10/20/16 21:44 Future Hold 09/21/16 04:13 2.5 MG Fentanyl Citrate (Fentanyl Inj) 50 mcg Q1H PRN IV 09/20/16 21:45 10/04/16 21:44 Future Hold 09/21/16 04:14 50 MCG Norepinephrine Bitartrate 8 mg/ Dextrose 508 ml @ 0 mls/hr Q0M PRN IV 09/21/16 10:15 10/21/16 10:14 Description This is a 21 electrode EEG with a single channel dedicated to limited EKG. The electrodes were placed in accordance with the International 10-20 system. Electrical artifact noted At the start of this recording the patient was reportedly unresponsive. Background was poorly organized with no well formed anterior to posterior gradient. Background was composed of diffuse symmetric moderate amplitude 3-4 Hz delta frequency with rare intermixed theta frequency. Hyperventilation was not done. Photic stimulation at various frequencies did not produce any abnormalities. There was no state changes or sleep transients. Interpretation This is a abnormal routine EEG secondary to moderate background disorganization and slowing mostly in the delta range. There was no electrographic seizures or epileptiform discharges. Clinical Correlation This EEG indicates moderate encephalopathy of nonspecific etiology
--- NOTE | 2016-09-21 13:41 | Gastroenterology Progress Note ---
Progress Note Date of Service: Sep 21, 2016 Subjective Pt evaluation today including: physical exam, chart review, lab review, review of studies, review of inpatient medication list Pt transferred to ICU yesterday. She is currently sedated, intubated, thus unable to obtain ROS. She had dialysis yesterday, Cr down to 1.9. No LFTs today. Review of Systems Constitutional: + see HPI Medications Current Inpatient Medications Medications (Trade) Dose Ordered Sig/Michael Route Start Time Stop Time Status Last Admin Dose Admin Ondansetron HCl (Zofran Inj) 4 mg Q6H PRN IV 09/17/16 16:15 10/17/16 16:14 Sodium Biphosphate/ Sodium Phosphate (Fleet Enema) 132 ml DAILY PRN FL 09/17/16 16:15 10/17/16 16:14 Prednisone (PredniSONE TAB) 1 mg QAM PO 09/18/16 09:00 10/18/16 08:59 Future Hold 09/19/16 08:28 1 MG Miconazole Nitrate (Desenex Powder) 1 appln BID EXT 09/17/16 21:00 10/17/16 20:59 09/21/16 08:10 1 APPLN Hydrocortisone Sodium Succinate 25 mg/Syringe 0.5 ml @ 4 mls/min Q8 IV 09/19/16 14:00 10/19/16 13:59 Future Hold 09/20/16 17:02 4 MLS/MIN Midodrine (Proamatine Tab) 5 mg TID@0800,1200,1800 PO 09/19/16 18:00 10/19/16 17:59 09/21/16 08:10 5 MG Octreotide Acetate (Sandostatin Inj) 100 mcg Q8 IV 09/19/16 22:00 10/19/16 21:59 09/21/16 05:34 100 MCG Levalbuterol (Xopenex 0.63 Mg/ 3 Ml Neb) 0.63 mg Q6H PRN INH 09/20/16 08:30 10/20/16 08:29 Pantoprazole Sodium 40 mg/ Syringe 10 ml @ 5 mls/min DAILY IV 09/21/16 09:00 10/21/16 08:59 09/21/16 08:12 5 MLS/MIN Piperacillin Sod/ Tazobactam Sod (Consult) 1 ea UD PRN N/A 09/20/16 21:15 10/20/16 21:14 Methylprednisolone Sodium Succinate 40 mg/Syringe 0.64 ml @ 1.5 mls/min TID IV 09/20/16 22:00 10/20/16 21:59 09/21/16 08:12 1.5 MLS/MIN Piperacillin Sod/ Tazobactam Sod 4.5 gm/Dextrose 120 ml @ 30 mls/hr Q8H IV 09/21/16 04:00 09/28/16 03:59 09/21/16 03:16 30 MLS/HR Lactulose (Chronulac Syrup) 30 gm BID PRN PO 09/20/16 21:15 10/20/16 21:14 Vancomycin HCl (Consult) 1 ea UD PRN N/A 09/20/16 21:45 10/20/16 21:44 Midazolam HCl (Versed Inj) 2.5 mg Q1H PRN IV 09/20/16 21:45 10/20/16 21:44 09/21/16 04:13 2.5 MG Fentanyl Citrate (Fentanyl Inj) 50 mcg Q1H PRN IV 09/20/16 21:45 10/04/16 21:44 09/21/16 04:14 50 MCG Objective Vital Signs Date Time Temp Pulse Resp B/P (MAP) Pulse Ox O2 Delivery O2 Flow Rate FiO2 09/21/16 08:29 CPAP 50 Mechanical Ventilator 09/21/16 07:22 50 09/21/16 06:01 65 21 91/41 (57) 98 09/21/16 05:31 68 19 95/45 (73) 98 09/21/16 05:01 65 20 89/40 (58) 98 09/21/16 05:00 60 09/21/16 04:32 69 19 80/36 (46) 96 09/21/16 04:15 60 09/21/16 04:01 65 19 90/37 (66) 98 09/21/16 04:00 60 09/21/16 04:00 37.0 09/21/16 04:00 97 Mechanical Ventilator 60 09/21/16 03:31 65 17 95/38 (68) 97 09/21/16 03:01 64 21 81/43 (50) 98 09/21/16 02:31 61 18 85/44 (60) 98 09/21/16 02:01 70 26 110/46 (60) 90 09/21/16 01:35 60 09/21/16 01:31 66 21 104/36 (63) 97 09/21/16 01:01 66 19 78/51 (56) 96 09/21/16 00:31 67 19 98/34 (67) 96 09/21/16 00:01 71 22 99/50 (69) 100 09/21/16 00:01 37.0 09/20/16 23:59 100 Mechanical Ventilator 70 09/20/16 23:59 70 09/20/16 23:31 69 21 104/43 (61) 100 09/20/16 23:07 70 09/20/16 23:01 70 19 90/36 (65) 99 09/20/16 23:01 70 09/20/16 22:31 78 24 102/50 (67) 99 09/20/16 21:46 73 23 109/52 (75) 98 09/20/16 21:31 72 21 105/48 (59) 95 09/20/16 21:16 74 14 98/50 (72) 96 09/20/16 21:02 63 18 127/42 (56) 87 09/20/16 20:56 77 27 118/90 (101) 99 09/20/16 20:01 73 22 130/64 (77) 94 09/20/16 20:00 36.6 09/20/16 20:00 94 BiPAP 80 09/20/16 20:00 76 116/75 09/20/16 19:50 74 24 102/69 (91) 92 09/20/16 19:45 78 119/62 09/20/16 19:40 75 23 119/62 (88) 92 09/20/16 19:35 74 37 81/50 (68) 93 09/20/16 19:31 74 32 76/51 (66) 94 09/20/16 19:30 72 111/58 09/20/16 19:15 74 115/58 09/20/16 19:00 73 121/76 09/20/16 18:45 76 119/63 17 18:32 74 35 116/51 (72) 96 BiPAP 80 09/20/16 18:30 75 32 96 09/20/16 18:30 74 116/52 14/17 18:24 70 38 117/58 (77) 93 14/17 18:17 74 24 90/ (30) 95 14/17 18:15 84 36 94 14/17 18:15 84 119/60 14/17 18:01 81 25 119/66 (83) 94 14/17 18:00 68 21 93 14/17 18:00 80 118/65 14/17 17:50 76 26 115/67 (83) 91 17 17:46 82 26 104/44 (64) 92 1417 17:45 75 115/67 14/17 17:45 82 24 93 14/17 17:32 73 28 113/50 (71) 96 17 17:30 77 117/60 17 17:30 36.8 72 35 97 17 17:16 78 23 119/59 (79) 98 17 17:15 76 21 98 1417 17:15 78 118/52 17 17:01 78 30 131/83 (99) 97 BiPAP 80 09/20/16 17:00 36.9 73 128/51 (76) 09/20/16 17:00 78 29 98 17 16:46 80 20 138/67 (90) 97 17 16:45 80 19 97 BiPAP 80 09/20/16 16:31 81 20 128/74 (92) 96 09/20/16 16:30 77 21 96 1417 16:16 80 20 135/74 (94) 97 BiPAP 80 17 16:15 79 28 97 1417 16:02 79 20 127/38 (67) 89 1417 16:00 80 20 89 17 16:00 91 BiPAP 60 17 15:56 82 20 148/93 (111) 86 BiPAP 80 14/17 15:54 84 20 92 14/17 15:46 36.0 80 20 92 15.0 14/17 15:21 80 92 60 14/17 15:14 36.0 81 20 136/73 (94) 92 BiPAP 09/20/16 12:00 92 BiPAP 60 09/20/16 11:55 36.5 75 20 120/67 (84) 92 BiPAP Physical Exam General Appearance: no apparent distress (sedated) Respiratory/Chest: + decreased breath sounds, + pertinent finding (intubated) Cardiovascular: regular rate, rhythm, no gallop, no murmur Abdomen: soft, + abnormal bowel sounds (hypoactive ) Extremities: + swelling Neurologic/Psych: + pertinent finding (sedated ) Skin: no jaundice, warm/dry Laboratory Results Last 24 Hours Test 09/20/16 10:12 09/20/16 12:52 09/20/16 16:04 09/20/16 17:17 Arterial Blood pH 7.27 7.26 Arterial Blood Partial Pressure CO2 47 mmHg 49 mmHg Arterial Blood Partial Pressure O2 71 mm/Hg 76 mm/Hg Arterial Blood HCO3 21 mmol/L 21 mmol/L Arterial Blood Oxygen Saturation 90.3 % 91.5 % Arterial Blood Base Excess -5.5 mEq/L -5.4 mEq/L Arterial Blood Gas Delivery 60% 60% Amado Test POS POS Pass Ammonia 59.0 umol/L Blood Gas Sample Site L Radial Bedside Blood Gas pH (LAB) 7.22 Bedside Blood Gas pCO2 (LAB) 52 mmHg Bedside Blood Gas pO2 (LAB) 56 mmHg Bedside Blood Gas HCO3 (LAB) 21 meq/L Bedside Blood Gas Total CO2 23 mEq/l Bedside Blood Gas Base Excess (LAB) -6.0 meq/L Bedside Blood Gas O2 Saturation 83.0 % Oxygen Delivery Device BIPAP Bedside FiO2 60 % Hepatitis B Surface Antigen NEG Hepatitis B Surface Antibody NEG Test 09/20/16 18:06 09/20/16 20:26 09/20/16 23:23 09/20/16 23:33 Bedside Glucose 112 mg/dl 108 mg/dl Blood Gas Sample Site R Radial Bedside Blood Gas pH (LAB) 7.33 Bedside Blood Gas pCO2 (LAB) 45 mmHg Bedside Blood Gas pO2 (LAB) 70 mmHg Bedside Blood Gas HCO3 (LAB) 23 meq/L Bedside Blood Gas Total CO2 25 mEq/l Bedside Blood Gas Base Excess (LAB) -3.0 meq/L Bedside Blood Gas O2 Saturation 92.0 % Amado Test Pass Oxygen Delivery Device BIPAP Bedside Oxygen Rate (breaths/min) 30 Bedside FiO2 60 % Ammonia 31.0 umol/L Procalcitonin 2.10 ng/ml Test 09/21/16 04:39 09/21/16 04:44 09/21/16 05:45 09/21/16 08:34 White Blood Count 14.39 K/uL Red Blood Count 2.90 M/uL Hemoglobin 8.0 g/dL Hematocrit 26.1 % Mean Corpuscular Volume 90.0 fL Mean Corpuscular Hemoglobin 27.6 pg Mean Corpuscular Hemoglobin Concent 30.7 g/dl RDW Standard Deviation 55.8 fL RDW Coefficient of Variation 16.9 % Platelet Count 128 K/uL Mean Platelet Volume 10.3 fL Venous Blood pH 7.25 Venous Blood Partial Pressure CO2 55 mmHg Venous Blood Partial Pressure O2 69 mmHg Venous Blood HCO3 23 mmol/L Venous Blood Oxygen Saturation 89.8 % Venous Blood Base Excess -3.6 mEq/L Sodium Level 140 mmol/L Potassium Level 3.9 mmol/L Chloride Level 108 mmol/L Carbon Dioxide Level 25 mmol/L Anion Gap 7.0 mmol/L Blood Urea Nitrogen 43 mg/dl Creatinine 1.90 mg/dl Est Creatinine Clear Calc Drug Dose 36.6 ml/min Estimated GFR () 33.1 Estimated GFR (Non- 28.6 BUN/Creatinine Ratio 22.7 Random Glucose 128 mg/dl Calcium Level 7.0 mg/dl Phosphorus Level 3.7 mg/dl Magnesium Level 1.9 mg/dl Ammonia 25.0 umol/L Bedside Glucose 131 mg/dl Bedside Hemoglobin 8.8 g/dl Bedside Hematocrit 26 % Bedside Blood Gas pH (LAB) 7.32 Bedside Blood Gas pCO2 (LAB) 46 mmHg Bedside Blood Gas pO2 (LAB) 39 mmHg Bedside Blood Gas HCO3 (LAB) 24 meq/L Bedside Blood Gas Total CO2 25 mEq/l Bedside Blood Gas Base Excess (LAB) -3.0 meq/L Bedside Blood Gas O2 Saturation 69.0 % Bedside Sodium 138 mEq/L Bedside Potassium 3.9 mEq/L Assessment and Plan Impression Patient is a 60 year old female currently admitted for R humerus fracture, s/p reverse total shoulder arthroplasty. Seen for hx of PBC, and HRS. MELD 24. She was not listed on transplant list at [facility] previously given low MELD. Was supposed to have Hepatology eval for possible liver/kidney transplant. Appt was 09/20 though she's currently admitted. Transferred to ICU yesterday for worsening respiratory status. She is currently sedated and intubated. Albumin and Ursodiol DC'd by Nephro for fluid overload. Had dialysis yesterday, 3.3L removed, Cr 1.9. Nephro planning on dialysis again today. Ammonia level down to 25. She had u/s abd which showed no signs of ascites to be tapped. Plan - Continue current Octreotide, Midodrine - Nephrology following, appreciate recs. - Agree w infectious workup to r/o infectious process which may contribute to her depressed mental status. - May consider transfer to [facility] for liver/kidney transplant evaluation Late entry: Patient was seen and examine pierre Noel on 09/21. Her note reflects our findings and plan.
--- NOTE | 2016-09-21 13:48 | Wound Clinic H&P ---
History & Physical Wound Clinic Date of Service: Sep 21, 2016. Complaint: Nonhealing ulceration right elbow Primary Care Physician: Seth Witt D.O. History of Present Illness Patient was recently admitted for evaluation of a infected prosthetic to the right shoulder. Patient has has maintained herself in a sling for the past 7 weeks following shoulder reconstruction. Patient apparently developed an ulceration during this time. Patient currently is in the intensive care unit on a ventilator and nonresponsive to any questioning. Further history is deferred at this time due to the patient's critical nature. Medical History (1) Fluid overload (2) Respiratory failure with hypercapnia (3) Osteoarthritis (4) Biliary cirrhosis (5) CKD (chronic kidney disease), stage III (6) Ascites (7) Portal hypertension (8) Esophageal varices (9) History of paroxysmal atrial tachycardia (10) Chronic pericarditis (11) Chronic steroid use (12) Status post transjugular intrahepatic portosystemic shunt (13) Status post reverse total arthroplasty of right shoulder (14) Status post cardiac catheterization Surgical History Hx Abdominal Surgery: Yes (TIPS FOR LIVER-2012) Hx Cardiac Surgery: Yes (ABLATION,CARDIAC CATH-NO STENT- 08/2012) Hx Urinary Tract Surgery: No Hx Orthopedic: Yes (ORIF L SHOULDER-2013,ORIF L WRIST,R SHOULDER SURG) Social History Occupation: disabled Smoking Status: Never Smoker Alcohol Use: none Current Medications Scheduled Cholecalciferol (Vitamin D3), 1,000 UNITS PO QAM Ferrous Gluconate (Ferrous Gluconate), 324 MG PO TID Furosemide (Furosemide), 100 MG PO DAILY Gabapentin (Neurontin), 300 MG PO TID Hydroxyzine Hcl (Atarax), 50 MG PO HS Obeticholic Acid (Ocaliva), 5 MG PO TUESDAY Prednisone (Prednisone), 1 MG PO QAM Propranolol (Inderal), 10 MG PO QAM Sertraline (Zoloft), 50 MG PO QAM Spironolactone (Aldactone), 100 MG PO QAM Trazodone Hcl (Trazodone), 100 MG PO HS Ursodiol (Ursodiol), 600 MG PO BID Allergies Coded Allergies: Budesonide (Verified Allergy, Intermediate, FACIAL SWELLING, 09/17/16) PER RECORDS Mycophenolate (Verified Allergy, Intermediate, FACIAL SWELLING, 09/17/16) PER RECORDS Latex (Verified Allergy, Mild, RASH-CONTACT, 09/17/16) Acetaminophen (Verified Adverse Reaction, Unknown, "LIVER DISEASE", ) PER RECORDS Pseudoephedrine (Verified Adverse Reaction, Unknown, TACHYCARDIA, 09/17/16) PER RECORDS Review of Systems Review of systems were deferred at this time due to the patient's current critical status. Physical Exam Vital Signs: Last Vital Signs Documentation Date Time Temp Pulse Resp B/P (MAP) Pulse Ox O2 Delivery O2 Flow Rate FiO2 09/21/16 11:02 50 09/21/16 10:01 65 16 92/37 (55) 96 Mechanical Ventilator 09/21/16 08:02 36.7 09/20/16 15:46 15.0 Current Pain Level: 0.0 General: The patient is lying in a hospital bed in the intensive care unit on a ventilator. Patient is nonresponsive to verbal commands or pain. HEENT: Pupils equal and reactive to light. Sclera clear, EOM intact. Chest: CTA in all colin. No deformity Heart: RRR without murmurs, S3, S4, thrills, rubs or heaves Extremities: An ulceration is present on the right elbow with Adaptic to bone. There is no significant drainage or odor present no central slough noted no significant periwound erythema present. No palpable deformity or fluctuance noted. Skin: No rashes, papules, vesicles, excoriations Assessment 1.: stage III pressure ulcer right elbow Plan At this time no debridement is indicated. The site will be dressed with Elvia and opted foam dressings changed every other day. She will be evaluated by orthotics for ongoing offloading issues. Patient will continue to be monitored during her hospital course and intervention as necessary. No culture was obtained at this time due to the patient's current antibiotic therapy and physical findings which are inconsistent with any current active infection.
[2016-09-21 19:49] LABS: CALCIUM 7.4 mg/dl (8.5-10.1); CREATININE 1.3 mg/dl (0.60-1.20); POTASSIUM 3.8 mmol/L (3.5-5.1)
--- NOTE | 2016-09-21 22:03 | DIAGNOSTIC IMAGING REPORT ---
HEAD WITHOUT CONTRAST (CT) CT DOSE: 2321.92 mGy.cm HISTORY: Mental status change aloc TECHNIQUE: Multiaxial CT images of the head were performed without the use of intravenous contrast. A dose lowering technique was utilized adhering to the principles of ALARA. Comparison: None. Findings: Limited study technically due to severe patient motion. Mild mucosal thickening right to lesser extent left mastoid air cells. Major sinuses are considered clear. No evidence for acute intracranial hemorrhage. No evidence for midline shift. Possible chronic small vessel change of this compromised due to patient motion. The calvarium and skull base are intact. The ventricles and sulci are within normal limits. There is no mass, hematoma, midline shift, or acute infarct. Impression: 1. Mild heterogeneity of the periventricular deep white matter regions possibly secondary to small vessel change. 2. Limited study technically due to patient motion. 3. Mild mucosal thickening of the mastoid air cells. 4. No evidence for acute intracranial hemorrhage. The above report was generated using voice recognition software. It may contain grammatical, syntax or spelling errors. Electronically signed by: Sandeep Campbell M.D. 09/21/2016 10:02 PM Dictated Date/Time: 09/21/2016 10:00 PM
[2016-09-22] VITALS (61 sets, daily range): BP systolic 85–170; BP diastolic 43–104; PULSE 63–83; TEMP 36.7–37.2; O2SAT 94–100
[2016-09-22] MEDS: OCTREOTIDE ACETATE 100 MCG/ML VIAL IV SCH (00:17)
--- NOTE | 2016-09-22 00:30 | NEUROLOGY CONSULTATION ---
DATE OF CONSULTATION: 09/21/2016 REASON FOR CONSULTATION: Assess etiology of unresponsive state. HISTORY OF PRESENT ILLNESS: Mrs. Childress is a 60-year-old right-handed female, who is with a history of nonalcoholic steatohepatitis, who was admitted to [facility] on 09/17/2016 for elective right reversal of a total shoulder arthroplasty. The patient had had several separate falls, a displaced left radial fracture and right proximal humerus fracture. The patient underwent surgery without complication and was described as being awake and alert; however, by report over several days she became increasingly sleepy and in the morning yesterday was noted to be hypoxic with saturations in the 80s and compensatory tachycardia. She was also hypotensive with decreased urine output. She was placed on BiPAP 60% with improvement of oxygenation. She was transferred to ICU. A central line was placed and eventually she was intubated for airway protection. The patient was dialyzed. She underwent echocardiography with an EF of 60-65%. She remains today sedated, but not paralyzed. EEG showing poorly organized background, diffuse symmetric moderate amplitude, 3-4 Hz delta frequency. No driving with photic stimulation. No electrographic seizures or epileptiform discharges. EEG consistent with moderate encephalopathy of nonspecific etiology. LABORATORY DATA: Today; white count is 13, H&H 8.1/24 and platelet count 137. INR on 09/19/2016 was 1.6. Initial blood gas yesterday at 8:30 was 7.21, 55 and 77. Her random glucose was 131, calcium 7.6, alkaline phosphatase 253, AST 65, ammonia 59 and now 25. Procalcitonin 2.1. Vancomycin 29.6. VITALS: The patient is overbreathing the vent, respiratory rate ranging from 16-23, 36.5, 65, FIO2 50%. Chest x-ray: Progression of right greater than left, airspace opacities and small bilateral pleural effusions. PAST MEDICAL HISTORY: Notable for ascites, biliary cirrhosis, chronic kidney disease, esophageal varices, paroxysmal atrial tachycardia, osteoarthritis, portal hypertension, status post right reverse total arthroplasty right shoulder status post transjugular intrahepatic portosystemic shunt. SOCIAL HISTORY: Nonsmoker, nondrinker, is on disability. FAMILY HISTORY: Diabetes. Mother has asthma, heart disease ALLERGIES: MYCOPHENOLATE LATEX, TYLENOL, SUDAFED AND BUDESONIDE. CURRENT MEDICATIONS: Piperacillin, tazobactam, norepinephrine, pantoprazole, methylprednisolone, vancomycin, lactulose, levalbuterol, Sandostatin, midodrine, miconazole and Zofran. PHYSICAL EXAMINATION: GENERAL: The patient is exceptionally sleepy, arouses to voice and essentially follows no commands. NECK: She has venous access in the right neck. I did not assess for neck stiffness because of the patient's clinical positioning intubation. HEART: Tachycardic. No murmur appreciable. NEUROLOGIC: Pupils are equal. There was scleral icterus. I could not reliably visualize the optic nerve. Although their tendons tended to be left gaze preference. Overall, the eyes were conjugant and roving. No nystagmus is noted. Visual colin are not testable. Corneals are depressed bilaterally. The patient grimaces symmetrically and overbreathes the vent. She spontaneously moves her right arm and to a lesser extent her left arm, although not greater than antigravity. She does not withdraw to painful stimulation in the lowers. There was increased tone in the left lower extremity. Reflexes were nonpathologic. There was no clonus and toes appear to be upgoing. Sensory and cerebellar; not testable. IMPRESSION: Global encephalopathy probably multifactorial related to hypotension, hypoxemia, metabolic perturbation and hepatic failure. PLAN: Recommend CT of the head noncontrast, given her relative coagulopathy to rule out bleed. I think it is appropriate to do that testing as it would change control analyst at present. MRI might be helpful at some point in the future, but is not needed. Fortunately, there is no evidence of subclinical status. We will follow with you. JLUISD
[2016-09-22 05:12] LABS: VEN BLD GAS O2 SATURATION 80.6 %
[2016-09-22 05:28] LABS: HEMATOCRIT 24.4 % (37-47); MEAN CELL VOLUME 88.7 fL (80-100); MEAN CORPUSCULAR HEMOGLOBIN 29.8 pg (25-34); MEAN CORPUSCULAR HGB CONC 33.6 g/dl (32-36); MEAN PLATELET VOLUME 10.9 fL (7.4-10.4); PLATELET COUNT 136 K/uL (130-400); RED BLOOD COUNT 2.75 M/uL (4.2-5.4); WHITE BLOOD COUNT 13.57 K/uL (4.8-10.8)
[2016-09-22 05:46] LABS: CREATININE 1.6 mg/dl (0.60-1.20)
[2016-09-22] MEDS: OCTREOTIDE ACETATE 100 MCG/ML VIAL IV. SCH ×3 (05:50→21:54)
[2016-09-22 06:13] LABS: BUN/CREATININE RATIO 19.3 (10-20); CALCIUM 7.8 mg/dl (8.5-10.1); POTASSIUM 3.9 mmol/L (3.5-5.1)
--- NOTE | 2016-09-22 06:59 | Orthopedic Progress Note ---
Orthopedic Progress Note Date of Service Sep 22, 2016. Subjective Post OP Day: 5 Additional Notes: Pt remains intubated. Arouses slightly this AM while inspecting shoulder. Nursing states she opened her eyes somewhat for her during the night. Objective Silverlon dressing intact. Mild drainage noted in dressing window. Partially opens eyes with gentle manipulation of R shoulder. Optifoam on right elbow due to skin ulcer. Date Time Temp Pulse Resp B/P (MAP) Pulse Ox O2 Delivery O2 Flow Rate FiO2 09/22/16 06:01 67 16 106/46 (66) 98 Mechanical Ventilator 40 09/22/16 04:00 96 Mechanical Ventilator 40 09/22/16 04:00 40 09/22/16 04:00 37.0 72 18 105/56 (72) 96 Mechanical Ventilator 40 09/22/16 02:00 66 16 105/50 (68) 96 Mechanical Ventilator 40 09/22/16 01:08 50 09/22/16 00:01 36.7 74 17 108/43 (64) 97 Mechanical Ventilator 50 09/21/16 23:59 97 Mechanical Ventilator 50 09/21/16 23:59 50 09/21/16 22:00 70 16 102/43 (62) 99 Mechanical Ventilator 50 09/21/16 21:21 50 09/21/16 20:00 50 09/21/16 20:00 98 Mechanical Ventilator 50 09/21/16 20:00 36.5 75 15 118/52 (74) 98 Mechanical Ventilator 50 09/21/16 17:40 36.9 73 136/60 (85) 09/21/16 17:30 71 124/57 09/21/16 17:15 64 108/52 09/21/16 17:00 74 122/45 09/21/16 16:45 74 125/67 09/21/16 16:30 67 99/49 09/21/16 16:15 68 110/46 09/21/16 16:00 50 09/21/16 16:00 62 123/44 09/21/16 16:00 97 Mechanical Ventilator 50 09/21/16 15:45 60 110/45 09/21/16 15:30 60 112/48 09/21/16 15:15 66 110/45 09/21/16 15:00 67 121/53 09/21/16 14:45 70 117/51 09/21/16 14:37 68 126/50 8/15/17 14:00 65 16 114/47 (69) 95 Mechanical Ventilator 50 09/21/16 14:00 36.5 66 114/47 (69) 09/21/16 13:39 50 09/21/16 13:30 75 24 90/53 (65) 96 09/21/16 13:00 67 18 105/38 (60) 98 09/21/16 12:30 70 23 103/43 (63) 91 Mechanical Ventilator 50 09/21/16 12:09 36.7 67 20 98/50 (66) 95 09/21/16 12:01 70 21 98/50 (66) 93 09/21/16 12:00 50 09/21/16 12:00 68 22 92 09/21/16 12:00 96 Mechanical Ventilator 50 09/21/16 11:31 67 20 101/51 (68) 96 Mechanical Ventilator 50 09/21/16 11:02 50 09/21/16 11:01 69 18 117/39 (65) 96 09/21/16 11:00 69 19 96 09/21/16 10:22 50 09/21/16 10:01 65 16 92/37 (55) 96 Mechanical Ventilator 50 09/21/16 10:00 66 21 95 09/21/16 09:31 67 25 97/36 (56) 95 Mechanical Ventilator 50 09/21/16 09:30 69 20 96 09/21/16 09:01 71 24 94/56 (69) 94 Mechanical Ventilator 50 09/21/16 09:00 71 23 94 09/21/16 08:31 69 26 90/45 (60) 91 Mechanical Ventilator 50 09/21/16 08:30 69 20 94 09/21/16 08:29 CPAP 50 Mechanical Ventilator 09/21/16 08:02 36.7 74 23 92/44 (60) 92 Mechanical Ventilator 50 09/21/16 08:00 70 21 95 09/21/16 07:45 50 09/21/16 07:45 93 Mechanical Ventilator 50 09/21/16 07:31 70 20 93/40 (57) 93 09/21/16 07:30 72 21 94 09/21/16 07:22 50 09/21/16 07:01 70 20 84/43 (57) 97 09/21/16 07:00 69 20 97 Laboratory Results 24 Hours: Test 09/21/16 12:04 09/22/16 04:53 Hematocrit 24.6 % 24.4 % Hemoglobin 8.1 g/dL 8.2 g/dL Assessment & Plan Assessment: POD #4 s/p Right reverse total shoulder arthroplasty, removal of deep hardware right proximal humerus, debridement of olecranon ulcer right elbow Patient was intubated due to respiratory failure. PER [employer]; 60 year old female post op from orthopedic surgery with altered mental status requiring intubation for impending hypoxic and hypercapnic respiratory failure Neuro - CAM positive - Initially sedated with fentanyl and Versed, discontinued at 09/21/16 @ 04:51 - EEG shows moderate encephalopathy of nonspecific etiology. Neurology consulted - Ammonia previously elevated, was given lactulose and currently ammonia levels within normal range - Continue to monitor for changes in RASS CV - BP noted to be 80-low 100's systolic. Levophed ordered PRN during dialysis if needed only. - Echo confirmed intact interatrial septum with no evidence for a hepaptopulmonary shunt. confirmed via bubble study Resp: - Intubated with ventilator support: CPAP, patient breathing 29 breaths/min, PSV 12, PEEP 8, FiO2 50, End tidal CO2 55 - Plans to switch ventilator to assisted control - Bronchoscopy performed. Samples sent for cultures. Abdo/GI - Evidence of hepatorenal syndrome. Patient awaiting transplant. MELD score 30. GI consulted. - Continue lactulose - Continue to trend LFTS - GI prophylaxs: IV pantoprazole 40mg BID - Enteral nutrition as per cassandra consultant Renal/Fluid - Dialysis received yesterday with removal of 3L of fluid. Creatinine improved subsequently. Plans to repeat dialysis today - Limiting fluids secondary to fluid overload. Trending BMP - Continue strict I&O's - urine perez in situ ID - Afebrile with leukocytosis. Procalcitonin elevated - Continue coverage with Zosyn and Vancomycin. Source of infection not confirmed , UTI vs. pneumonia Endo - Continue methylprednisone for now, plans to taper/stop tomorrow - Continue monitoring blood glucose Access - 2x peripheral IV, 1x central trialysis catheter Consults & Procedures Consultants: Gastroenterology: Dr. Noel Neurology: Dr. Dunn Nephrology: Oncmario Orthopedics: Dr. Fontenot Wound care: Dr. Yeung Discharge Planning Discharge Planning: uncertain
--- NOTE | 2016-09-22 07:05 | DIAGNOSTIC IMAGING REPORT ---
CHEST ONE VIEW PORTABLE CLINICAL HISTORY: intubated RESPIRATORY FAILURE COMPARISON STUDY: 09/21/2016 FINDINGS: The endotracheal tube is 13 mm above the deborah. There is a nasogastric tube which passes in the stomach. The cardiac and sternal contours remain stable. Postsurgical changes involve the shoulders. There are small bilateral pleural effusions. There are improving bilateral pulmonary airspace opacities. A right internal jugular central venous catheter is also visualized. IMPRESSION: 1. Endotracheal tube 13 mm above the deborah 2. Significant improvement in the bilateral pulmonary airspace opacities 3. Small bilateral pleural effusions Electronically signed by: Yusef Sotelo M.D. 09/22/2016 7:03 AM Dictated Date/Time: 09/22/2016 7:01 AM
[2016-09-22] MEDS: PIPERACILL/TAZOBAC IV 4.5 GM in DEXTROSE 5% 100ML IV SCH ×2 (08:15→21:37)
[2016-09-22] MEDS: PANTOprazole INJ 40 MG in SYRINGE 0 ML IV SCH (08:17)
[2016-09-22] MEDS: MICONAZOLE NITRATE POWDER 43 GM EXT SCH ×2 (08:19→21:00)
[2016-09-22] MEDS: METHYLPREDNISOLONE IV 40 MG in SYRINGE 0 ML IV SCH (08:19)
[2016-09-22] MEDS: MIDODRINE 2.5 MG TAB PO SCH ×4 (08:19→17:15)
--- NOTE | 2016-09-22 08:26 | Nephrology Progress Note ---
Nephrology Progress Note Date of Service: Sep 22, 2016. Subjective 60 yo female with biliary cirrhosis with ileana/atn vs HRS who became fluid overloaded and lethargic and required intubation. has had two dialysis treatments for fluid removal. pts volume status is improving. now down to 40% fio2. pt is awake/arousable. was able to remove 3 liters without pressors yesterday. Objective Date Time Temp Pulse Resp B/P (MAP) Pulse Ox O2 Delivery O2 Flow Rate FiO2 09/22/16 06:01 67 16 106/46 (66) 98 Mechanical Ventilator 40 09/22/16 04:00 96 Mechanical Ventilator 40 09/22/16 04:00 40 09/22/16 04:00 50 09/22/16 04:00 37.0 72 18 105/56 (72) 96 Mechanical Ventilator 40 09/22/16 02:00 66 16 105/50 (68) 96 Mechanical Ventilator 40 09/22/16 01:08 50 09/22/16 00:01 36.7 74 17 108/43 (64) 97 Mechanical Ventilator 50 09/21/16 23:59 97 Mechanical Ventilator 50 09/21/16 23:59 50 09/21/16 22:00 70 16 102/43 (62) 99 Mechanical Ventilator 50 09/21/16 21:21 50 09/21/16 20:00 50 09/21/16 20:00 98 Mechanical Ventilator 50 09/21/16 20:00 36.5 75 15 118/52 (74) 98 Mechanical Ventilator 50 09/21/16 17:40 36.9 73 136/60 (85) 09/21/16 17:30 71 124/57 09/21/16 17:15 64 108/52 09/21/16 17:00 74 122/45 09/21/16 16:45 74 125/67 09/21/16 16:30 67 99/49 09/21/16 16:15 68 110/46 09/21/16 16:00 50 09/21/16 16:00 62 123/44 09/21/16 16:00 97 Mechanical Ventilator 50 09/21/16 15:45 60 110/45 09/21/16 15:30 60 112/48 09/21/16 15:15 66 110/45 09/21/16 15:00 67 121/53 09/21/16 14:45 70 117/51 09/21/16 14:37 68 126/50 09/21/16 14:00 65 16 114/47 (69) 95 Mechanical Ventilator 50 09/21/16 14:00 36.5 66 114/47 (69) 09/21/16 13:39 50 09/21/16 13:30 75 24 90/53 (65) 96 09/21/16 13:00 67 18 105/38 (60) 98 09/21/16 12:30 70 23 103/43 (63) 91 Mechanical Ventilator 50 09/21/16 12:09 36.7 67 20 98/50 (66) 95 09/21/16 12:01 70 21 98/50 (66) 93 09/21/16 12:00 50 09/21/16 12:00 68 22 92 09/21/16 12:00 96 Mechanical Ventilator 50 09/21/16 11:31 67 20 101/51 (68) 96 Mechanical Ventilator 50 09/21/16 11:02 50 09/21/16 11:01 69 18 117/39 (65) 96 09/21/16 11:00 69 19 96 09/21/16 10:22 50 09/21/16 10:01 65 16 92/37 (55) 96 Mechanical Ventilator 50 09/21/16 10:00 66 21 95 09/21/16 09:31 67 25 97/36 (56) 95 Mechanical Ventilator 50 09/21/16 09:30 69 20 96 09/21/16 09:01 71 24 94/56 (69) 94 Mechanical Ventilator 50 09/21/16 09:00 71 23 94 09/21/16 08:31 69 26 90/45 (60) 91 Mechanical Ventilator 50 09/21/16 08:30 69 20 94 09/21/16 08:29 CPAP 50 Mechanical Ventilator Physical Exam: General-awake Eyes-+scleral icterus ENT-mmm Neck-supple Lungs-+clear anteriorly Heart-regular with occasional ectopy Abdomen-bs+/soft Extremities-+1 edema in legs, right arm in sling Neuro-awake Current Inpatient Medications Medications (Trade) Dose Ordered Sig/Michael Route Start Time Stop Time Status Last Admin Dose Admin Ondansetron HCl (Zofran Inj) 4 mg Q6H PRN IV 09/17/16 16:15 10/17/16 16:14 Sodium Biphosphate/ Sodium Phosphate (Fleet Enema) 132 ml DAILY PRN OK 09/17/16 16:15 10/17/16 16:14 Prednisone (PredniSONE TAB) 1 mg QAM PO 09/18/16 09:00 10/18/16 08:59 Future Hold 09/19/16 08:28 1 MG Miconazole Nitrate (Desenex Powder) 1 appln BID EXT 09/17/16 21:00 10/17/16 20:59 09/22/16 08:19 1 APPLN Hydrocortisone Sodium Succinate 25 mg/Syringe 0.5 ml @ 4 mls/min Q8 IV 09/19/16 14:00 10/19/16 13:59 Future Hold 09/20/16 17:02 4 MLS/MIN Midodrine (Proamatine Tab) 5 mg TID@0800,1200,1800 PO 09/19/16 18:00 10/19/16 17:59 09/22/16 08:19 5 MG Levalbuterol (Xopenex 0.63 Mg/ 3 Ml Neb) 0.63 mg Q6H PRN INH 09/20/16 08:30 10/20/16 08:29 Pantoprazole Sodium 40 mg/ Syringe 10 ml @ 5 mls/min DAILY IV 09/21/16 09:00 10/21/16 08:59 09/22/16 08:17 5 MLS/MIN Piperacillin Sod/ Tazobactam Sod (Consult) 1 ea UD PRN N/A 09/20/16 21:15 10/20/16 21:14 Methylprednisolone Sodium Succinate 40 mg/Syringe 0.64 ml @ 1.5 mls/min TID IV 09/20/16 22:00 10/20/16 21:59 09/22/16 08:19 1.5 MLS/MIN Lactulose (Chronulac Syrup) 30 gm BID PRN PO 09/20/16 21:15 10/20/16 21:14 Vancomycin HCl (Consult) 1 ea UD PRN N/A 09/20/16 21:45 10/20/16 21:44 Midazolam HCl (Versed Inj) 2.5 mg Q1H PRN IV 09/20/16 21:45 10/20/16 21:44 Future Hold 09/21/16 04:13 2.5 MG Fentanyl Citrate (Fentanyl Inj) 50 mcg Q1H PRN IV 09/20/16 21:45 10/04/16 21:44 Future Hold 09/21/16 04:14 50 MCG Norepinephrine Bitartrate 8 mg/ Dextrose 508 ml @ 0 mls/hr Q0M PRN IV 09/21/16 10:15 10/21/16 10:14 Piperacillin Sod/ Tazobactam Sod 4.5 gm/Dextrose 120 ml @ 30 mls/hr Q12H IV 09/21/16 20:00 09/27/16 19:59 09/22/16 08:15 30 MLS/HR Octreotide Acetate (Sandostatin Inj) 100 mcg Q8 IV. 09/22/16 06:00 10/19/16 21:59 09/22/16 05:50 100 MCG Last 24 Hours Test 09/21/16 08:34 09/21/16 11:31 09/21/16 12:04 09/21/16 18:30 Bedside Hemoglobin 8.8 g/dl Bedside Hematocrit 26 % Bedside Blood Gas pH (LAB) 7.32 Bedside Blood Gas pCO2 (LAB) 46 mmHg Bedside Blood Gas pO2 (LAB) 39 mmHg Bedside Blood Gas HCO3 (LAB) 24 meq/L Bedside Blood Gas Total CO2 25 mEq/l Bedside Blood Gas Base Excess (LAB) -3.0 meq/L Bedside Blood Gas O2 Saturation 69.0 % Bedside Sodium 138 mEq/L Bedside Potassium 3.9 mEq/L Bedside Glucose 140 mg/dl 116 mg/dl White Blood Count 13.05 K/uL Red Blood Count 2.75 M/uL Hemoglobin 8.1 g/dL Hematocrit 24.6 % Mean Corpuscular Volume 89.5 fL Mean Corpuscular Hemoglobin 29.5 pg Mean Corpuscular Hemoglobin Concent 32.9 g/dl RDW Standard Deviation 54.5 fL RDW Coefficient of Variation 16.9 % Platelet Count 137 K/uL Mean Platelet Volume 10.7 fL Random Vancomycin Level 29.6 mcg/ml Test 09/21/16 19:14 09/21/16 21:15 09/21/16 21:18 09/21/16 21:20 Sodium Level 139 mmol/L Potassium Level 3.8 mmol/L Chloride Level 104 mmol/L Carbon Dioxide Level 25 mmol/L Anion Gap 10.0 mmol/L Blood Urea Nitrogen 23 mg/dl Creatinine 1.30 mg/dl Est Creatinine Clear Calc Drug Dose 52.5 ml/min Estimated GFR () 52.4 Estimated GFR (Non- 45.2 BUN/Creatinine Ratio 18.0 Random Glucose 118 mg/dl Calcium Level 7.4 mg/dl Ammonia < 10.0 umol/L Urine Random Sodium 8 mEq/L Osmolality 284 mOsm/kg Bedside Glucose 121 mg/dl Test 09/22/16 04:53 White Blood Count 13.57 K/uL Red Blood Count 2.75 M/uL Hemoglobin 8.2 g/dL Hematocrit 24.4 % Mean Corpuscular Volume 88.7 fL Mean Corpuscular Hemoglobin 29.8 pg Mean Corpuscular Hemoglobin Concent 33.6 g/dl RDW Standard Deviation 53.1 fL RDW Coefficient of Variation 16.6 % Platelet Count 136 K/uL Mean Platelet Volume 10.9 fL Venous Blood pH 7.37 Venous Blood Partial Pressure CO2 43 mmHg Venous Blood Partial Pressure O2 49 mmHg Venous Blood HCO3 24 mmol/L Venous Blood Oxygen Saturation 80.6 % Venous Blood Base Excess -1.0 mEq/L Sodium Level 136 mmol/L Potassium Level 3.9 mmol/L Chloride Level 103 mmol/L Carbon Dioxide Level 23 mmol/L Anion Gap 10.0 mmol/L Blood Urea Nitrogen 31 mg/dl Creatinine 1.60 mg/dl Est Creatinine Clear Calc Drug Dose 42.7 ml/min Estimated GFR () 40.7 Estimated GFR (Non- 35.2 BUN/Creatinine Ratio 19.3 Bedside Glucose 135 mg/dl Random Glucose 134 mg/dl Calcium Level 7.8 mg/dl Random Vancomycin Level 19.8 mcg/ml Date/Time Source Procedure Growth Status 09/21/16 13:18 Bronchial Washings Right Middle Lobe Fungal Smear Pending Received 09/21/16 13:18 Bronchial Washings Right Middle Lobe Fungal Culture Pending Received 09/21/16 13:18 Bronchial Washings Right Middle Lobe Acid Fast Stain Pending Received 09/21/16 13:18 Bronchial Washings Right Middle Lobe Mycobacterial Culture Pending Received 09/21/16 13:18 Bronchial Washings Right Middle Lobe Gram Stain - Final Resulted 09/21/16 13:18 Bronchial Washings Right Middle Lobe Bronchoalveolar Lavage Culture Pending Resulted Assessment & Plan ileana-atn vs HRS with signs of volume overload and now intubated and requiring daily dialysis for volume removal. on midodrine and octreotide. for dialysis again today and will attempt 2 liters uf as bp tolerates. overall volume status is improving. lungs sound better and requiring lower fi02. 3k bath, 2l uf, 3 hour treatment.
[2016-09-22] MEDS ORDERED: LACTULOSE SYRUP 30 GM/45 ML UDP PO PRN (10:30)
--- NOTE | 2016-09-22 10:53 | Progress Note ---
Internal Med Progress Note Date of Service: Sep 22, 2016. Provider Documentation: SUBJECTIVE: Seen and examined at bedside. Currently getting hemodialysis Sedated and intubated discussed in detail with family regarding patient's condition OBJECTIVE: Vital Signs-as noted below Physical Exam: General Appearance:sedated and Intubated Head: normocephalic, Atraumatic Eyes: normal inspection, icteric Neck: supple, Trachea midline Respiratory/Chest: Coarse breath sounds Cardiovascular: S1, S2, + murmur Abdomen/GI:Soft, mildly distended, Bowel sounds present Extremities/Musculoskelatal:normal inspection, 1+ edema Neurologic/Psych:sedated and Intubated Skin: normal color, warm Lab data as noted below. ASSESSMENT & PLAN: Patient is a 60 yr female admitted for R humerus fracture, s/p reverse total shoulder arthroplasty ACUTE HYPOXIC AND HYPERCAPNIC RESPIRATORY FAILURE PULMONARY EDEMA POSSIBLE ASPIRATION PNEUMONIA Most likely secondary to volume overload from diastolic heart failure Chest x-ray shows bilateral infiltrates, probably pulmonary edema (although other processes are possible). S/P IV furosemide Currently getting daily dialysis for fluid overload Continue Levalbuterol neb PRN Intubated on 09/20 Vent management per ICU team S/P Bronchoscopy on 09/21 Follow up bronchial washings studies: pending Continue : Vanco and Zosyn Bubble Study:no interatrial shunt and no findings to suggest hepatopulmonary shunt ECHO from 12/22/15: EF:55-59% H/O P. ATRIAL TACHYCARDIA Currently rate controlled Was on propranolol at home ENCEPHALOPATHY: Likely multifactorial: medications, hepatic encephalopathy, hypercapnia EEG: indicates moderate encephalopathy of nonspecific etiology CT head:Mild heterogeneity of the periventricular deep white matter regions possibly secondary to small vessel change Neurology following May need MRI brain at some point CARLOS ENRIQUE/ATN Vs HRS CKD III Cr:1.6 today Ketorolac discontinued. Initially received IVFs and hydrocortisone. Appreciate Nephrology help Continue albumin, midodrine, octreotide for hepatorenal syndrome. Requiring daily dialysis for fluid overload BILIARY CIRRHOSIS MELD 24 Appreciate GI input continue lactulose, Rifaximin for hepatic encephalopathy. Ammonia level: 59 >>>25 >>>10 ABD USD: no ascites Continue Octreotide, Midodrine Needs to have Hepatology eval for possible liver/kidney transplant CHRONIC STEROID THERAPY Chronic prednisone therapy for chronic pericarditis. S/P IV hydrocortisone Resume PO prednisone when able S/P Right reverse total shoulder arthroplasty, removal of deep hardware right proximal humerus, debridement of olecranon ulcer right elbow POD # 5 Orthopedics following DVT Px: SCD's PROCEDURES: CT head: 1. Mild heterogeneity of the periventricular deep white matter regions possibly secondary to small vessel change. 2. Limited study technically due to patient motion. 3. Mild mucosal thickening of the mastoid air cells. 4. No evidence for acute intracranial hemorrhage. Vital Signs: Date Time Temp Pulse Resp B/P (MAP) Pulse Ox O2 Delivery O2 Flow Rate FiO2 09/22/16 10:45 65 138/56 09/22/16 10:30 69 135/57 09/22/16 10:15 66 141/68 09/22/16 10:00 68 128/70 09/22/16 09:45 66 131/60 09/22/16 09:30 69 130/84 09/22/16 09:17 Mechanical Ventilator 40 09/22/16 09:15 72 132/67 09/22/16 09:05 67 137/53 09/22/16 08:55 37.0 68 125/57 (79) 09/22/16 08:00 40 09/22/16 08:00 Mechanical Ventilator 40 09/22/16 07:23 50 09/22/16 06:01 67 16 106/46 (66) 98 Mechanical Ventilator 40 09/22/16 04:00 96 Mechanical Ventilator 40 09/22/16 04:00 40 09/22/16 04:00 50 09/22/16 04:00 37.0 72 18 105/56 (72) 96 Mechanical Ventilator 40 09/22/16 02:00 66 16 105/50 (68) 96 Mechanical Ventilator 40 09/22/16 01:08 50 09/22/16 00:01 36.7 74 17 108/43 (64) 97 Mechanical Ventilator 50 09/21/16 23:59 97 Mechanical Ventilator 50 09/21/16 23:59 50 09/21/16 22:00 70 16 102/43 (62) 99 Mechanical Ventilator 50 09/21/16 21:21 50 09/21/16 20:00 50 09/21/16 20:00 98 Mechanical Ventilator 50 09/21/16 20:00 36.5 75 15 118/52 (74) 98 Mechanical Ventilator 50 09/21/16 17:40 36.9 73 136/60 (85) 09/21/16 17:30 71 124/57 09/21/16 17:15 64 108/52 09/21/16 17:00 74 122/45 09/21/16 16:45 74 125/67 09/21/16 16:30 67 99/49 09/21/16 16:15 68 110/46 09/21/16 16:00 50 09/21/16 16:00 62 123/44 09/21/16 16:00 97 Mechanical Ventilator 50 09/21/16 15:45 60 110/45 09/21/16 15:30 60 112/48 09/21/16 15:15 66 110/45 09/21/16 15:00 67 121/53 09/21/16 14:45 70 117/51 09/21/16 14:37 68 126/50 09/21/16 14:00 65 16 114/47 (69) 95 Mechanical Ventilator 50 09/21/16 14:00 36.5 66 114/47 (69) 09/21/16 13:39 50 09/21/16 13:30 75 24 90/53 (65) 96 09/21/16 13:00 67 18 105/38 (60) 98 09/21/16 12:30 70 23 103/43 (63) 91 Mechanical Ventilator 50 09/21/16 12:09 36.7 67 20 98/50 (66) 95 09/21/16 12:01 70 21 98/50 (66) 93 09/21/16 12:00 50 09/21/16 12:00 68 22 92 09/21/16 12:00 96 Mechanical Ventilator 50 09/21/16 11:31 67 20 101/51 (68) 96 Mechanical Ventilator 50 Lab Results: Results Past 24 Hours Test 09/21/16 11:31 09/21/16 12:04 09/21/16 18:30 09/21/16 19:14 Range/Units Bedside Glucose 140 116 70-90 mg/dl White Blood Count 13.05 4.8-10.8 K/uL Red Blood Count 2.75 4.2-5.4 M/uL Hemoglobin 8.1 12.0-16.0 g/dL Hematocrit 24.6 37-47 % Mean Corpuscular Volume 89.5 80-100 fL Mean Corpuscular Hemoglobin 29.5 25-34 pg Mean Corpuscular Hemoglobin Concent 32.9 32-36 g/dl RDW Standard Deviation 54.5 36.4-46.3 fL RDW Coefficient of Variation 16.9 11.5-14.5 % Platelet Count 137 130-400 K/uL Mean Platelet Volume 10.7 7.4-10.4 fL Random Vancomycin Level 29.6 mcg/ml Sodium Level 139 136-145 mmol/L Potassium Level 3.8 3.5-5.1 mmol/L Chloride Level 104 98-107 mmol/L Carbon Dioxide Level 25 21-32 mmol/L Anion Gap 10.0 3-11 mmol/L Blood Urea Nitrogen 23 7-18 mg/dl Creatinine 1.30 0.60-1.20 mg/dl Est Creatinine Clear Calc Drug Dose 52.5 ml/min Estimated GFR () 52.4 Estimated GFR (Non- 45.2 BUN/Creatinine Ratio 18.0 10-20 Random Glucose 118 70-99 mg/dl Calcium Level 7.4 8.5-10.1 mg/dl Ammonia < 10.0 11-32 umol/L Test 09/21/16 21:15 09/21/16 21:18 09/21/16 21:20 09/22/16 04:53 Range/Units Urine Random Sodium 8 mEq/L Osmolality 284 280-300 mOsm/kg Bedside Glucose 121 135 70-90 mg/dl White Blood Count 13.57 4.8-10.8 K/uL Red Blood Count 2.75 4.2-5.4 M/uL Hemoglobin 8.2 12.0-16.0 g/dL Hematocrit 24.4 37-47 % Mean Corpuscular Volume 88.7 80-100 fL Mean Corpuscular Hemoglobin 29.8 25-34 pg Mean Corpuscular Hemoglobin Concent 33.6 32-36 g/dl RDW Standard Deviation 53.1 36.4-46.3 fL RDW Coefficient of Variation 16.6 11.5-14.5 % Platelet Count 136 130-400 K/uL Mean Platelet Volume 10.9 7.4-10.4 fL Venous Blood pH 7.37 7.36-7.41 Venous Blood Partial Pressure CO2 43 38.0-50.0 mmHg Venous Blood Partial Pressure O2 49 mmHg Venous Blood HCO3 24 mmol/L Venous Blood Oxygen Saturation 80.6 % Venous Blood Base Excess -1.0 mEq/L Sodium Level 136 136-145 mmol/L Potassium Level 3.9 3.5-5.1 mmol/L Chloride Level 103 98-107 mmol/L Carbon Dioxide Level 23 21-32 mmol/L Anion Gap 10.0 3-11 mmol/L Blood Urea Nitrogen 31 7-18 mg/dl Creatinine 1.60 0.60-1.20 mg/dl Est Creatinine Clear Calc Drug Dose 42.7 ml/min Estimated GFR () 40.7 Estimated GFR (Non- 35.2 BUN/Creatinine Ratio 19.3 10-20 Random Glucose 134 70-99 mg/dl Calcium Level 7.8 8.5-10.1 mg/dl Random Vancomycin Level 19.8 mcg/ml Microbiology Results 09/21/16 Fungal Smear - Final, Resulted 09/21/16 Fungal Culture, Resulted Pending 09/21/16 Acid Fast Stain, Received Pending 09/21/16 Mycobacterial Culture, Received Pending 09/21/16 Gram Stain - Final, Resulted 09/21/16 Bronchoalveolar Lavage Culture, Resulted Pending
--- NOTE | 2016-09-22 11:29 | Pharmacy Progress Note ---
Pharmacy Abx Dose Short Note Date of Service Sep 22, 2016. Assessment & Plan Assessment 60 year old female initiated on Vancomycin/Zosyn IV for pulmonary source. Patient with biliary cirrhosis with CARLOS ENRIQUE/ATN vs HRS- temporary dialysis catheter placed 09/20/16. -Patient has received dialysis 09/20, 09/21, 09/22 MRSA swab positive. Urine culture pending. Sputum pending. Day # 3 of antimicrobial therapy. Plan Vancomycin * Random level of 19.8 mcg/mL is therapeutic. * Re-dose patient after dialysis today. Dose will be 750 mg IV X 1. * Goal remains 15-20 mcg/mL * A random level will be ordered for: 09/23/16 with AM labs. Piperacillin/tazobactam * 4.5 g bolus administered over 30 minutes, then 4.5 g IV extended infusion every 12 hours for dialysis. * Aggressive dosing selected due to critically ill status. Pharmacy will continue to follow and will adjust dose/frequency as necessary. Thank you.
--- NOTE | 2016-09-22 11:38 | Gastroenterology Progress Note ---
Progress Note Date of Service: Sep 22, 2016 Subjective Pt evaluation today including: physical exam, chart review, lab review, review of studies, review of inpatient medication list Pt remains intubated, sedated, unable to obtain ROS. Discussed case w Dr. Tong and ICU team - they are wondering if pt can get evaluated for liver transplant at [facility] [place] [facility]. She is getting dialysis again today. Cr 1.9. Sputum and bronchial washing pending, urine culture w/o growth Review of Systems Constitutional: + see HPI Medications Current Inpatient Medications Medications (Trade) Dose Ordered Sig/Michael Route Start Time Stop Time Status Last Admin Dose Admin Ondansetron HCl (Zofran Inj) 4 mg Q6H PRN IV 09/17/16 16:15 10/17/16 16:14 Sodium Biphosphate/ Sodium Phosphate (Fleet Enema) 132 ml DAILY PRN NC 09/17/16 16:15 10/17/16 16:14 Prednisone (PredniSONE TAB) 1 mg QAM PO 09/18/16 09:00 10/18/16 08:59 Future Hold 09/19/16 08:28 1 MG Miconazole Nitrate (Desenex Powder) 1 appln BID EXT 09/17/16 21:00 10/17/16 20:59 09/22/16 08:19 1 APPLN Hydrocortisone Sodium Succinate 25 mg/Syringe 0.5 ml @ 4 mls/min Q8 IV 09/19/16 14:00 10/19/16 13:59 Future Hold 09/20/16 17:02 4 MLS/MIN Midodrine (Proamatine Tab) 5 mg TID@0800,1200,1800 PO 09/19/16 18:00 10/19/16 17:59 09/22/16 08:19 5 MG Levalbuterol (Xopenex 0.63 Mg/ 3 Ml Neb) 0.63 mg Q6H PRN INH 09/20/16 08:30 10/20/16 08:29 Pantoprazole Sodium 40 mg/ Syringe 10 ml @ 5 mls/min DAILY IV 09/21/16 09:00 10/21/16 08:59 09/22/16 08:17 5 MLS/MIN Piperacillin Sod/ Tazobactam Sod (Consult) 1 ea UD PRN N/A 09/20/16 21:15 10/20/16 21:14 Methylprednisolone Sodium Succinate 40 mg/Syringe 0.64 ml @ 1.5 mls/min TID IV 09/20/16 22:00 10/20/16 21:59 09/22/16 08:19 1.5 MLS/MIN Vancomycin HCl (Consult) 1 ea UD PRN N/A 09/20/16 21:45 10/20/16 21:44 Midazolam HCl (Versed Inj) 2.5 mg Q1H PRN IV 09/20/16 21:45 10/20/16 21:44 Future Hold 09/21/16 04:13 2.5 MG Fentanyl Citrate (Fentanyl Inj) 50 mcg Q1H PRN IV 09/20/16 21:45 10/04/16 21:44 Future Hold 09/21/16 04:14 50 MCG Norepinephrine Bitartrate 8 mg/ Dextrose 508 ml @ 0 mls/hr Q0M PRN IV 09/21/16 10:15 10/21/16 10:14 Piperacillin Sod/ Tazobactam Sod 4.5 gm/Dextrose 120 ml @ 30 mls/hr Q12H IV 09/21/16 20:00 09/27/16 19:59 09/22/16 08:15 30 MLS/HR Octreotide Acetate (Sandostatin Inj) 100 mcg Q8 IV. 09/22/16 06:00 10/19/16 21:59 09/22/16 05:50 100 MCG Rifaximin (Xifaxan Tab) 550 mg BID PO 09/22/16 21:00 10/22/16 20:59 Lactulose (Chronulac Syrup) 30 gm QID PRN PO 09/22/16 10:30 10/23/16 10:29 Objective Vital Signs Date Time Temp Pulse Resp B/P (MAP) Pulse Ox O2 Delivery O2 Flow Rate FiO2 09/22/16 11:00 71 154/87 09/22/16 10:45 65 138/56 09/22/16 10:30 69 135/57 09/22/16 10:15 66 141/68 09/22/16 10:00 68 128/70 09/22/16 09:45 66 131/60 09/22/16 09:30 69 130/84 09/22/16 09:17 Mechanical Ventilator 40 09/22/16 09:15 72 132/67 09/22/16 09:05 67 137/53 09/22/16 08:55 37.0 68 125/57 (79) 09/22/16 08:00 40 09/22/16 08:00 Mechanical Ventilator 40 09/22/16 07:23 50 1617 06:01 67 16 106/46 (66) 98 Mechanical Ventilator 40 09/22/16 04:00 96 Mechanical Ventilator 40 09/22/16 04:00 40 09/22/16 04:00 50 09/22/16 04:00 37.0 72 18 105/56 (72) 96 Mechanical Ventilator 40 09/22/16 02:00 66 16 105/50 (68) 96 Mechanical Ventilator 40 09/22/16 01:08 50 09/22/16 00:01 36.7 74 17 108/43 (64) 97 Mechanical Ventilator 50 09/21/16 23:59 97 Mechanical Ventilator 50 09/21/16 23:59 50 09/21/16 22:00 70 16 102/43 (62) 99 Mechanical Ventilator 50 09/21/16 21:21 50 09/21/16 20:00 50 09/21/16 20:00 98 Mechanical Ventilator 50 09/21/16 20:00 36.5 75 15 118/52 (74) 98 Mechanical Ventilator 50 09/21/16 17:40 36.9 73 136/60 (85) 09/21/16 17:30 71 124/57 09/21/16 17:15 64 108/52 09/21/16 17:00 74 122/45 1517 16:45 74 125/67 09/21/16 16:30 67 99/49 1517 16:15 68 110/46 15/17 16:00 50 1517 16:00 62 123/44 1517 16:00 97 Mechanical Ventilator 50 15/17 15:45 60 110/45 15/17 15:30 60 112/48 15/17 15:15 66 110/45 15/17 15:00 67 121/53 15/17 14:45 70 117/51 15/17 14:37 68 126/50 15/17 14:00 65 16 114/47 (69) 95 Mechanical Ventilator 50 1517 14:00 36.5 66 114/47 (69) 09/21/16 13:39 50 09/21/16 13:30 75 24 90/53 (65) 96 09/21/16 13:00 67 18 105/38 (60) 98 09/21/16 12:30 70 23 103/43 (63) 91 Mechanical Ventilator 50 09/21/16 12:09 36.7 67 20 98/50 (66) 95 09/21/16 12:01 70 21 98/50 (66) 93 09/21/16 12:00 50 09/21/16 12:00 68 22 92 09/21/16 12:00 96 Mechanical Ventilator 50 09/21/16 11:31 67 20 101/51 (68) 96 Mechanical Ventilator 50 Physical Exam General Appearance: + pertinent finding (sedated ) Respiratory/Chest: + decreased breath sounds, + pertinent finding (on mechanical vent) Cardiovascular: regular rate, rhythm, no gallop, no murmur Abdomen: normal bowel sounds, soft Extremities: + swelling Neurologic/Psych: + pertinent finding (sedated, intubated) Laboratory Results Last 24 Hours Test 09/21/16 11:31 09/21/16 12:04 09/21/16 18:30 09/21/16 19:14 Bedside Glucose 140 mg/dl 116 mg/dl White Blood Count 13.05 K/uL Red Blood Count 2.75 M/uL Hemoglobin 8.1 g/dL Hematocrit 24.6 % Mean Corpuscular Volume 89.5 fL Mean Corpuscular Hemoglobin 29.5 pg Mean Corpuscular Hemoglobin Concent 32.9 g/dl RDW Standard Deviation 54.5 fL RDW Coefficient of Variation 16.9 % Platelet Count 137 K/uL Mean Platelet Volume 10.7 fL Random Vancomycin Level 29.6 mcg/ml Sodium Level 139 mmol/L Potassium Level 3.8 mmol/L Chloride Level 104 mmol/L Carbon Dioxide Level 25 mmol/L Anion Gap 10.0 mmol/L Blood Urea Nitrogen 23 mg/dl Creatinine 1.30 mg/dl Est Creatinine Clear Calc Drug Dose 52.5 ml/min Estimated GFR () 52.4 Estimated GFR (Non- 45.2 BUN/Creatinine Ratio 18.0 Random Glucose 118 mg/dl Calcium Level 7.4 mg/dl Ammonia < 10.0 umol/L Test 09/21/16 21:15 09/21/16 21:18 09/21/16 21:20 09/22/16 04:53 Urine Random Sodium 8 mEq/L Osmolality 284 mOsm/kg Bedside Glucose 121 mg/dl 135 mg/dl White Blood Count 13.57 K/uL Red Blood Count 2.75 M/uL Hemoglobin 8.2 g/dL Hematocrit 24.4 % Mean Corpuscular Volume 88.7 fL Mean Corpuscular Hemoglobin 29.8 pg Mean Corpuscular Hemoglobin Concent 33.6 g/dl RDW Standard Deviation 53.1 fL RDW Coefficient of Variation 16.6 % Platelet Count 136 K/uL Mean Platelet Volume 10.9 fL Venous Blood pH 7.37 Venous Blood Partial Pressure CO2 43 mmHg Venous Blood Partial Pressure O2 49 mmHg Venous Blood HCO3 24 mmol/L Venous Blood Oxygen Saturation 80.6 % Venous Blood Base Excess -1.0 mEq/L Sodium Level 136 mmol/L Potassium Level 3.9 mmol/L Chloride Level 103 mmol/L Carbon Dioxide Level 23 mmol/L Anion Gap 10.0 mmol/L Blood Urea Nitrogen 31 mg/dl Creatinine 1.60 mg/dl Est Creatinine Clear Calc Drug Dose 42.7 ml/min Estimated GFR () 40.7 Estimated GFR (Non- 35.2 BUN/Creatinine Ratio 19.3 Random Glucose 134 mg/dl Calcium Level 7.8 mg/dl Random Vancomycin Level 19.8 mcg/ml Assessment and Plan Impression Patient is a 60 year old female currently admitted for R humerus fracture, s/p reverse total shoulder arthroplasty. Seen for hx of PBC, and HRS. MELD 24. She was not listed on transplant list at [facility] [facility] previously given low MELD. Was supposed to have Hepatology eval for possible liver/kidney transplant. Appt was 09/20 though she's currently admitted. At ICU for worsening respiratory status. She is currently sedated on mechanical vent, ICU team may plan to extubate. Albumin and Ursodiol DC'd by Nephro for fluid overload. She will have hemodialysis again today. Cr 1.9. Ammonia level down to <10. She had u/s abd which showed no signs of ascites to be tapped. Plans - Continue current Octreotide, Midodrine - Nephrology following, appreciate recs. - Agree w infectious workup to r/o infectious process which may contribute to her depressed mental status. - Spoke w Dr. Sykes (Hepatology police liaison at [facility]): May consider transfer to [facility] for liver/kidney transplant evaluation though unclear if she would be a candidate give possible infectious process and current mental status -> discussed pt's family and ICU team. Family would like to discuss amongst each other more about whether they would like pt to be transferred. Patient was seen and examined/ Remains intubated. Worsening decompensated cirrhosis (related to PBC) followinng orthopedic surgery for shoulder. Also with acute on [facility]. he is not active on the transplant list. She was in the process for being re-evaluated by the transplant clinic at [facility] [facility]. Her prognosis is grim. Transferring the patient to [facility] [facility] is certainly something that can be done, however, given her current condition she may not be a candidate for transplant. Family is aware of this and discussing transfer. If there is to be any escalation of care, transfer to a tertiary care center is warranted.
[2016-09-22] MEDS ORDERED: VANCOMYCIN INJ 750 MG in SODIUM CHLORIDE 0.9% 250ML 250 ML IV SCH (14:00)
--- NOTE | 2016-09-22 15:13 | Critical Care Progress Note ---
Critical Care Progress Note Date of Service Sep 22, 2016. Critical Care Progress Note Attending: Dr. Tong Spent 70 minutes in discussion with family regarding transfer of patient to tertiary facility for further evaluation by transplant team. Inasmuch as there is no guarantee the patient would be eligible for transplant and the possibility that no additional treatments would be provided, family has decided not to transport patient to tertiary care facility at this time. They would like to continue with current treatment with the hopes that the patient could be successfully extubated. We'll attempt weaning trial this afternoon with BiPAP 10/5. Patient is now more alert and opens eyes spontaneously and is able to track. Can wiggle fingers but is unable to give thumbs up. Does not answer questions appropriately but is able to nod and shake her head weakly. Pillow was removed from behind the patient's head and she was able to keep her head elevated for 10 seconds. Patient failed BiPAP fairly quickly. Continue assist control and attempt weaning again in the morning. Patient currently is not getting any sedation or anxiolytics. She is moving her arms and will therefore continue to require soft restraints. Discussed plan with Dr. Weaver and Dr. Tong. Please refer to Dr. Weaver's daily progress note for full assessment, plan, physical examination, other findings, as well as Dr. Tong's addendum.
--- NOTE | 2016-09-22 15:27 | Critical Care Progress Note ---
Critical Care Progress Note Date of Service Sep 22, 2016. ICU Day ICU Day Number: [address] Tong Subjective Patient remains intubated, but has increased consciousness than previous, but still not responsive at this time. Unable to obtain ROS. Objective GENERAL: Responsive, lying in bed, intubated and ventilated HEAD: Normocephalic, atraumatic. EYES: Normal sclera and conjunctiva NECK: Supple, no adenopathy LUNGS: Normal chest wall mechanics, poor air entry. No crackles, or wheezes HEART: S1 and S2 normal, no murmurs appreciated ABDOMEN: abdomen soft, diminished bowel sounds, no masses, no rebound or guarding. SKIN: Warm, pink, dry. No rashes. Bruising on left arm from previous trial of PICC insertion. EXTREMITIES: Bandage on right arm from shoulder surgery. Bilateral lower extremity edema NEURO: Responsive to voice -- opens eyes. Pupils equal. Not following commands. Some neck movement Current SOFA Score SOFA Score Response (Comments) Value Platelets (x10) < 150 1 Bilirubin (mg/dL) 2.0 - 5.9 2 Midway Coma Score < 6 4 Level of Hypotension No Hypotension 0 Creatinine (mg/dL) 1.2 - 1.9 1 Total 8 Assessment & Plan 60 year old female post op from orthopedic surgery with altered mental status secondary to hepatorenal syndrome, requiring intubation for impending hypoxic and hypercapnic respiratory failure Neuro - CAM positive. Mild improvement in RASS - Fentanyl and Versed discontinued at 09/21/16 @ 04:51 - EEG shows moderate encephalopathy of nonspecific etiology. Neurology consulted - CT head negative for acute intracranial process - Continue to monitor for changes in RASS CV - SBP noted to be 90-110's. Levophed ordered PRN during dialysis if needed only. - Echo confirmed intact interatrial septum with no evidence of a hepaptopulmonary shunt, confirmed via bubble study Resp - Intubated with ventilator support: assisted control, patient breathing 19 breaths/min (above preset value 12), Vt 400ml, PEEP 8, FiO2 40, End tidal CO2 32 - failed trial of spontaneous breathing 09/22 - Bronchoscopy performed. Samples sent for cultures still pending. Gram stain and yeast smear negative. Cultures pending GI/Nutrition - Evidence of hepatorenal syndrome. Patient previously on transplant list but was too well. Current MELD score 30. GI consulted. - At this time, as patient is still quite somnolent, family has declined transfer to [facility] for transplant evaluation.Family will reconsider if patient continues to improve - Ammonia previously elevated, now normal. Continue lactulose. Start rifaximin. Trend ammonia - Continue to trend LFTS - GI prophylaxis: IV pantoprazole 40mg BID - Enteral nutrition (Peptamen) as per wharf tender Renal/Fluid - S/p second dialysis (total fluid removal to date 6.3L). Creatinine improved subsequently. Plans to repeat dialysis today - Limiting fluids secondary to fluid overload. Trending BMP - Continue strict I&O's - urine Esposito in situ ID - Afebrile with leukocytosis. Procalcitonin elevated, will recheck tomorrow - CXR shows improvement in lung opacities, and small bilateral pleural effusions - Continue coverage with Zosyn and Vancomycin. Endo - Continue methylprednisone at reduced dose 20mg BID x 5 days, then stop - Continue monitoring blood glucose Heme - Leukocytosis, anemia, and thrombocytopenia unchanged from day prior. Continue to monitor. Access - 2x peripheral IV, 1x central trialysis catheter Resident Physician Supervision Note: Dr. Weaver was resident physician during care of patient. I separately evaluated patient and did history and exam. I discussed the case with the resident and generally agree with the findings and plan. Patient slowly improving and mental status, family mainly focusing on liver transplantation. Extensively discussed this with the gastrointestinal service as well as the patient's family. The patient is continuing to slowly improve, there is concern for infection, and in consultation with gastroenterology who discussed her case with the [facility] transplant team feel that the patient would not likely be a strong candidate for emergent, urgent liver transplantation; however, the [facility] transplant service would be willing to except her in transfer for a bedside evaluation. At the present time the family has not opted for that treatment plan. We will continue to wean the ventilator requirements, I am hopeful that should be able to extubate the patient in the next 24 hours. Continue to hold sedating medications given the hepatic insufficiency. Documented By: Toi Tong DO I have personally spent 60 minutes of critical care time in the direct management of this patient. This is a life/limb threatening event. This includes time spent evaluating patient, direct bedside care, chart review, placing orders, interpretation of diagnostic studies, discussion with consultants, patient, and family members, as well as other required patient management activities. This time is exclusive of all separately billable procedures, and teaching time and separate from and in addition to any other critical care service time. Consults & Procedures Consultants: Gastroenterology: Dr. Noel Neurology: Dr. Dunn Nephrology: [place] Orthopedics: Dr. Fontenot Wound care: Dr. Yeung Procedures: 09/17/16: Right reverse total shoulder arthroplasty, removal of deep hardware right proximal humerus, debridement of olecranon ulcer right elbow 09/20/16: Trialysis central catheter inserted 09/20/16: Intubated 09/21/16: Bronchoscopy Data Medications: Current Inpatient Medications Medications (Trade) Dose Ordered Sig/Michael Route Start Time Stop Time Status Last Admin Dose Admin Ondansetron HCl (Zofran Inj) 4 mg Q6H PRN IV 09/17/16 16:15 10/17/16 16:14 Sodium Biphosphate/ Sodium Phosphate (Fleet Enema) 132 ml DAILY PRN NC 09/17/16 16:15 10/17/16 16:14 Prednisone (PredniSONE TAB) 1 mg QAM PO 09/18/16 09:00 10/18/16 08:59 Future Hold 09/19/16 08:28 1 MG Miconazole Nitrate (Desenex Powder) 1 appln BID EXT 09/17/16 21:00 10/17/16 20:59 09/22/16 08:19 1 APPLN Hydrocortisone Sodium Succinate 25 mg/Syringe 0.5 ml @ 4 mls/min Q8 IV 09/19/16 14:00 10/19/16 13:59 Future Hold 09/20/16 17:02 4 MLS/MIN Midodrine (Proamatine Tab) 5 mg TID@0800,1200,1800 PO 09/19/16 18:00 10/19/16 17:59 09/22/16 08:19 5 MG Levalbuterol (Xopenex 0.63 Mg/ 3 Ml Neb) 0.63 mg Q6H PRN INH 09/20/16 08:30 10/20/16 08:29 Pantoprazole Sodium 40 mg/ Syringe 10 ml @ 5 mls/min DAILY IV 09/21/16 09:00 10/21/16 08:59 09/22/16 08:17 5 MLS/MIN Piperacillin Sod/ Tazobactam Sod (Consult) 1 ea UD PRN N/A 09/20/16 21:15 10/20/16 21:14 Vancomycin HCl (Consult) 1 ea UD PRN N/A 09/20/16 21:45 10/20/16 21:44 Midazolam HCl (Versed Inj) 2.5 mg Q1H PRN IV 09/20/16 21:45 10/20/16 21:44 Future Hold 09/21/16 04:13 2.5 MG Fentanyl Citrate (Fentanyl Inj) 50 mcg Q1H PRN IV 09/20/16 21:45 10/04/16 21:44 Future Hold 09/21/16 04:14 50 MCG Norepinephrine Bitartrate 8 mg/ Dextrose 508 ml @ 0 mls/hr Q0M PRN IV 09/21/16 10:15 10/21/16 10:14 Piperacillin Sod/ Tazobactam Sod 4.5 gm/Dextrose 120 ml @ 30 mls/hr Q12H IV 09/21/16 20:00 09/27/16 19:59 09/22/16 08:15 30 MLS/HR Octreotide Acetate (Sandostatin Inj) 100 mcg Q8 IV. 09/22/16 06:00 10/19/16 21:59 09/22/16 05:50 100 MCG Rifaximin (Xifaxan Tab) 550 mg BID PO 09/22/16 21:00 10/22/16 20:59 Lactulose (Chronulac Syrup) 30 gm QID PRN PO 09/22/16 10:30 10/23/16 10:29 09/22/16 11:31 30 GM Vancomycin HCl 750 mg/Sodium Chloride 265 ml @ 125 mls/hr TODAY@1400 IV 09/22/16 14:00 09/22/16 16:08 Methylprednisolone Sodium Succinate 20 mg/Syringe 0.32 ml @ 1.5 mls/min Q12 IV 09/22/16 21:00 09/27/16 23:59 Vital Signs: Date Time Temp Pulse Resp B/P (MAP) Pulse Ox O2 Delivery O2 Flow Rate FiO2 09/22/16 12:15 74 23 154/60 (82) 98 09/22/16 12:13 74 18 147/74 (83) 95 09/22/16 12:00 Mechanical Ventilator 40 09/22/16 12:00 37.0 09/22/16 12:00 40 09/22/16 12:00 67 26 159/65 (107) 99 09/22/16 11:45 70 24 158/75 (92) 98 09/22/16 11:45 68 158/75 09/22/16 11:30 67 161/65 09/22/16 11:30 63 26 161/65 (118) 98 09/22/16 11:17 64 27 149/57 (76) 98 09/22/16 11:17 40 09/22/16 11:15 64 149/57 09/22/16 11:00 71 154/87 09/22/16 11:00 71 24 154/87 (98) 99 09/22/16 10:45 65 138/56 09/22/16 10:45 65 22 138/56 (67) 98 09/22/16 10:30 69 135/57 09/22/16 10:30 69 26 135/57 (76) 99 09/22/16 10:15 66 141/68 09/22/16 10:15 66 20 141/68 (84) 97 09/22/16 10:00 68 26 128/70 (91) 97 09/22/16 10:00 68 128/70 09/22/16 09:45 66 131/60 09/22/16 09:45 66 24 131/60 (77) 97 09/22/16 09:30 69 130/84 09/22/16 09:30 69 23 130/84 (93) 96 09/22/16 09:17 Mechanical Ventilator 40 09/22/16 09:15 72 132/67 09/22/16 09:15 72 23 132/67 (89) 95 09/22/16 09:08 67 21 137/53 (100) 97 09/22/16 09:05 67 137/53 09/22/16 09:03 69 18 115/57 (66) 96 09/22/16 09:00 68 17 125/57 (65) 97 09/22/16 08:55 37.0 68 125/57 (79) 09/22/16 08:01 67 17 110/57 (67) 96 09/22/16 08:00 40 09/22/16 08:00 Mechanical Ventilator 40 09/22/16 08:00 65 18 96 09/22/16 07:23 50 09/22/16 06:01 67 16 106/46 (66) 98 Mechanical Ventilator 40 09/22/16 04:00 96 Mechanical Ventilator 40 09/22/16 04:00 40 09/22/16 04:00 50 09/22/16 04:00 37.0 72 18 105/56 (72) 96 Mechanical Ventilator 40 09/22/16 02:00 66 16 105/50 (68) 96 Mechanical Ventilator 40 09/22/16 01:08 50 09/22/16 00:01 36.7 74 17 108/43 (64) 97 Mechanical Ventilator 50 09/21/16 23:59 97 Mechanical Ventilator 50 09/21/16 23:59 50 09/21/16 22:00 70 16 102/43 (62) 99 Mechanical Ventilator 50 09/21/16 21:21 50 09/21/16 20:00 50 09/21/16 20:00 98 Mechanical Ventilator 50 09/21/16 20:00 36.5 75 15 118/52 (74) 98 Mechanical Ventilator 50 09/21/16 17:40 36.9 73 136/60 (85) 09/21/16 17:30 71 124/57 09/21/16 17:15 64 108/52 09/21/16 17:00 74 122/45 09/21/16 16:45 74 125/67 09/21/16 16:30 67 99/49 09/21/16 16:15 68 110/46 09/21/16 16:00 50 09/21/16 16:00 62 123/44 09/21/16 16:00 97 Mechanical Ventilator 50 09/21/16 15:45 60 110/45 09/21/16 15:30 60 112/48 09/21/16 15:15 66 110/45 09/21/16 15:00 67 121/53 09/21/16 14:45 70 117/51 09/21/16 14:37 68 126/50 Laboratory Results: Last 24 Hours Test 09/21/16 18:30 09/21/16 19:14 09/21/16 21:15 09/21/16 21:18 Bedside Glucose 116 mg/dl Sodium Level 139 mmol/L Potassium Level 3.8 mmol/L Chloride Level 104 mmol/L Carbon Dioxide Level 25 mmol/L Anion Gap 10.0 mmol/L Blood Urea Nitrogen 23 mg/dl Creatinine 1.30 mg/dl Est Creatinine Clear Calc Drug Dose 52.5 ml/min Estimated GFR () 52.4 Estimated GFR (Non- 45.2 BUN/Creatinine Ratio 18.0 Random Glucose 118 mg/dl Calcium Level 7.4 mg/dl Ammonia < 10.0 umol/L Urine Random Sodium 8 mEq/L Osmolality 284 mOsm/kg Test 09/21/16 21:20 09/22/16 04:53 Bedside Glucose 121 mg/dl 135 mg/dl White Blood Count 13.57 K/uL Red Blood Count 2.75 M/uL Hemoglobin 8.2 g/dL Hematocrit 24.4 % Mean Corpuscular Volume 88.7 fL Mean Corpuscular Hemoglobin 29.8 pg Mean Corpuscular Hemoglobin Concent 33.6 g/dl RDW Standard Deviation 53.1 fL RDW Coefficient of Variation 16.6 % Platelet Count 136 K/uL Mean Platelet Volume 10.9 fL Venous Blood pH 7.37 Venous Blood Partial Pressure CO2 43 mmHg Venous Blood Partial Pressure O2 49 mmHg Venous Blood HCO3 24 mmol/L Venous Blood Oxygen Saturation 80.6 % Venous Blood Base Excess -1.0 mEq/L Sodium Level 136 mmol/L Potassium Level 3.9 mmol/L Chloride Level 103 mmol/L Carbon Dioxide Level 23 mmol/L Anion Gap 10.0 mmol/L Blood Urea Nitrogen 31 mg/dl Creatinine 1.60 mg/dl Est Creatinine Clear Calc Drug Dose 42.7 ml/min Estimated GFR () 40.7 Estimated GFR (Non- 35.2 BUN/Creatinine Ratio 19.3 Random Glucose 134 mg/dl Calcium Level 7.8 mg/dl Random Vancomycin Level 19.8 mcg/ml
[2016-09-22] MEDS ORDERED: PEPTAMEN INTENSE VHP 1000ML BAG OG SCH (16:30)
[2016-09-22] MEDS ORDERED: FENTANYL CITRATE INJ 50 MCG/1 ML 2 ML VIAL ONE (17:09)
--- NOTE | 2016-09-22 17:41 | PROGRESS NOTE ---
DATE: 09/22/2016 SUBJECTIVE: I am seeing Mrs. Childress in followup for change in mental status. Her CT of the head from last evening, which I reviewed, shows mild heterogeneity of the periventricular white matter potentially consistent with chronic ischemic changes. There is no obvious hemorrhage, although the images are degraded by movement. Events of the last day reviewed with Dr. Tong. The patient underwent hemodialysis today. Her white count has been trending down. Her serum sodium was 136, BUN and creatinine 31/1.6. Last ammonia 25. PHYSICAL EXAMINATION: VITAL SIGNS: Temperature 37,, respiratory rate 16, blood pressure 114/47 with a pulse of 69, and pulse ox is 100% on a ventilator. GENERAL: The patient is episodically overbreathing the vent. She is awake, mostly alert, able to shake her head correctly about her location. HEENT: The right eye is slightly greater than left eye, but both are briskly reactive. Eye movements are purposeful. No fixed gaze preference is noted. I cannot determine if visual colin are intact. The face appears symmetric. NEUROLOGIC: Motor, little spontaneous movements of the upper or lower extremities. Arm drift symmetrically down when elevated. Tone appears fairly symmetric in the lowers. Minimal pain did not reproduce the withdraw, although I did not want to inflict significant pain to check withdrawal. Her reflexes are brisk. Toes are upgoing. IMPRESSION: Suspect polyfactorial encephalopathy related to hepatorenal disease, hypoxemia and hypotension. The patient looks more alert today, which is very encouraging. I did discuss this with her family. I do not think there is a primary neurologic process going on. Provided she continues to improve, I do not think she needs any further testing. If she were not to improve, an MRI might be appropriate as well as an EEG. I do not think those need to be performed at the present time. I discussed her status with her family. I will continue to follow with you. [place]
[2016-09-22] MEDS ORDERED: NURSING VERBAL MED ORDER ONE (17:45)
[2016-09-22] MEDS ORDERED: METHYLPREDNISOLONE 20 MG in SYRINGE 0 ML IV SCH (21:00)
[2016-09-22] MEDS: RIFAXIMIN TAB 550 MG TAB PO SCH (21:37)
[2016-09-23] VITALS (27 sets, daily range): BP systolic 112–135; BP diastolic 49–80; PULSE 67–87; TEMP 36.6–37; O2SAT 94–100
--- NOTE | 2016-09-23 04:01 | Procedure Note ---
Procedure Note Date of Service Sep 20, 2016. Procedure Note Procedure Date: 09/20/2016 Procedure: Endotracheal intubation Pre-procedure Diagnosis: Acute hypoxic respiratory failure Post-procedure Diagnosis: same as above Prior to Procedure: Informed Consent: emergent Attending Staff: Cesar Tong DO Indications: Patient is a 60-year-old female with end-stage liver disease, possible hepatorenal syndrome versus ATN with associated CARLOS ENRIQUE who presents with acute hypoxic respiratory failure and tachypnea unresolved by dialysis The identity of the patient was confirmed and a bedside time out was performed. Description of Procedure: Patient was evaluated and required intubation for impending respiratory failure. The patient was prepared in the usual fashion. A 3 Mac laryngoscope was used. A 8.0 Fr endotrachial tube was placed endotracheally to 20 cm at the teeth. A grade 1 view was obtained. The endotracheal tube was noted to pass through the vocal cords. Chest rise was bilateral. Bilateral breath sounds were heard without air sounds in the abdomen. Mist was noted in the endotracheal tube. End-tidal CO2 measurement was positive. Chest x-ray shows proper endotracheal tube placement. 200 g of fentanyl was used for anesthesia no neuromuscular blockade was required Complications: A small linear superficial laceration to the left lower lip occurred, bleeding stopped with minimal direct pressure Findings: not applicable Specimens: not applicable Estimated blood loss: Zero
--- NOTE | 2016-09-23 04:04 | Procedure Note ---
Procedure Note Date of Service Sep 21, 2016. Procedure Note Procedure date: 09/21/2016 Procedure: fiberoptic bronchoscopy Pre-procedure Diagnosis: Acute hypoxic respiratory failure, pulmonary infiltrates on chest x-ray Post-procedure Diagnosis: same as above Prior to Procedure: Informed Consent: The risks, benefits, indications, potential complications, and alternatives were explained to the patient/family and informed consent obtained. Attending Staff: Cesar Tong DO Resident/APC: Ariana Harris Skin Prep: Not applicable Anesthesia: 10 ML's of 1% lidocaine, 100 g of fentanyl Indications: Patient is a 60-year-old female with acute hypoxic respiratory failure with pulmonary infiltrate seen on chest x-ray, concern for pneumonia. The identity of the patient was confirmed and a bedside time out was performed. Description of Procedure: Fiberoptic bronchoscopy was performed via endotracheal tube. Bronchioalveolar lavage right middle lobe was performed. Findings included: Moderate thick mucoid secretions found in the right middle and right lower lobes, left lung globally with thin secretions without purulence Complications: None Specimens: Bronchial washings sent for culture and Gram stain, cytology, fungal elements, and AFB stain and culture. Estimated blood loss: Zero
[2016-09-23] MEDS: OCTREOTIDE ACETATE 100 MCG/ML VIAL IV. SCH ×3 (05:36→21:24)
[2016-09-23 06:00] LABS: MEAN CORPUSCULAR HEMOGLOBIN 29.6 pg (25-34); MEAN CORPUSCULAR HGB CONC 33.6 g/dl (32-36); MEAN PLATELET VOLUME 10.3 fL (7.4-10.4); PLATELET COUNT 135 K/uL (130-400); RED BLOOD COUNT 2.84 M/uL (4.2-5.4); WHITE BLOOD COUNT 17.37 K/uL (4.8-10.8)
--- NOTE | 2016-09-23 06:32 | DIAGNOSTIC IMAGING REPORT ---
CHEST ONE VIEW PORTABLE CLINICAL HISTORY: Respiratory failure COMPARISON STUDY: 09/22/2016 FINDINGS: The cardiac and mediastinal contours remain stable. There is an endotracheal tube with its tip at the level the deborah. There is a right internal jugular central venous catheter. There is a nasogastric tube which passes into the stomach. There are persistent moderate bilateral pulmonary airspace opacities, perhaps slightly progressive. [Postsurgical changes involve the shoulders. IMPRESSION: 1. The endotracheal tube is currently positioned with its tip at the deborah 2. Moderate bilateral pulmonary airspace opacities, perhaps slightly progressive Electronically signed by: Yusef Sotelo M.D. 09/23/2016 6:31 AM Dictated Date/Time: 09/23/2016 6:29 AM
[2016-09-23 06:37] LABS: BUN/CREATININE RATIO 15.2 (10-20); CALCIUM 8.7 mg/dl (8.5-10.1); CREATININE 1.8 mg/dl (0.60-1.20); MAGNESIUM 2.1 mg/dl (1.8-2.4); POTASSIUM 3.4 mmol/L (3.5-5.1)
[2016-09-23 06:38] LABS: PHOSPHORUS 3.2 mg/dl (2.5-4.9)
--- NOTE | 2016-09-23 06:50 | Nephrology Progress Note ---
Nephrology Progress Note Date of Service: Sep 23, 2016. Subjective 60 yo female with biliary cirrhosis with ileana/atn vs HRS who required intubation. have done daily dialysis to help with fluid overload. pt breathing easier and opens her eyes. on 40% Fi02. Objective Date Time Temp Pulse Resp B/P (MAP) Pulse Ox O2 Delivery O2 Flow Rate FiO2 09/23/16 06:00 76 23 124/50 (74) 98 Mechanical Ventilator 40 09/23/16 04:45 30 09/23/16 04:00 37.0 74 20 122/55 (77) 98 Mechanical Ventilator 40 09/23/16 04:00 98 Mechanical Ventilator 40 09/23/16 04:00 40 09/23/16 03:05 40 09/23/16 02:00 73 20 132/62 (85) 98 Mechanical Ventilator 40 09/23/16 00:06 40 09/22/16 23:59 40 09/22/16 23:59 37.2 77 18 108/48 (68) 95 Mechanical Ventilator 40 09/22/16 23:59 95 Mechanical Ventilator 40 09/22/16 22:00 77 17 114/61 (81) 96 09/22/16 21:30 80 14 117/51 (55) 97 09/22/16 20:47 40 09/22/16 20:30 67 18 96/50 (56) 97 09/22/16 20:00 40 09/22/16 20:00 37.0 83 16 96/50 (65) 97 Mechanical Ventilator 40 09/22/16 20:00 Mechanical Ventilator 40 09/22/16 20:00 72 16 109/53 (78) 96 09/22/16 19:30 70 19 105/44 (71) 97 09/22/16 19:00 74 17 116/53 (79) 97 09/22/16 18:42 40 09/22/16 18:30 76 18 115/55 (83) 97 09/22/16 18:00 81 12 120/54 (82) 98 09/22/16 17:45 74 17 116/53 (76) 96 09/22/16 17:32 70 18 101/49 (75) 97 09/22/16 17:30 71 17 88/51 (74) 97 09/22/16 17:15 70 16 95/43 (69) 95 09/22/16 17:00 77 20 108/58 (74) 97 09/22/16 16:45 75 16 110/51 (83) 98 09/22/16 16:30 75 18 105/48 (68) 98 09/22/16 16:24 37.0 76 16 114/47 (69) 100 Mechanical Ventilator 40 09/22/16 16:21 40 09/22/16 16:19 Mechanical Ventilator 40 09/22/16 16:15 71 16 104/47 (57) 98 09/22/16 16:00 64 16 106/51 (64) 97 09/22/16 15:45 72 21 114/47 (57) 96 09/22/16 15:30 70 15 105/43 (55) 97 09/22/16 15:15 76 18 123/49 (67) 96 09/22/16 15:00 76 15 103/48 (69) 97 09/22/16 14:45 40 09/22/16 14:45 77 16 106/64 (77) 100 09/22/16 14:30 73 19 107/44 (69) 98 09/22/16 14:15 73 17 104/50 (69) 99 09/22/16 14:00 74 18 105/50 (71) 99 09/22/16 13:49 70 18 91/62 (69) 98 09/22/16 13:45 73 19 170/58 (85) 99 09/22/16 13:30 75 16 /89 (143) 99 09/22/16 13:16 74 26 119/104 (113) 94 09/22/16 13:10 72 25 85/58 (72) 97 09/22/16 13:01 74 18 /60 (96) 97 09/22/16 13:00 73 18 98 09/22/16 12:20 36.9 74 154/60 (91) 09/22/16 12:15 74 23 154/60 (82) 98 09/22/16 12:13 74 18 147/74 (83) 95 09/22/16 12:00 Mechanical Ventilator 40 09/22/16 12:00 37.0 09/22/16 12:00 40 09/22/16 12:00 67 26 159/65 (107) 99 09/22/16 11:45 70 24 158/75 (92) 98 09/22/16 11:45 68 158/75 8/16/17 11:30 67 161/65 09/22/16 11:30 63 26 161/65 (118) 98 09/22/16 11:17 64 27 149/57 (76) 98 09/22/16 11:17 40 09/22/16 11:15 64 149/57 09/22/16 11:00 71 154/87 09/22/16 11:00 71 24 154/87 (98) 99 09/22/16 10:45 65 138/56 09/22/16 10:45 65 22 138/56 (67) 98 09/22/16 10:30 69 135/57 09/22/16 10:30 69 26 135/57 (76) 99 09/22/16 10:15 66 141/68 09/22/16 10:15 66 20 141/68 (84) 97 09/22/16 10:00 68 26 128/70 (91) 97 09/22/16 10:00 68 128/70 09/22/16 09:45 66 131/60 09/22/16 09:45 66 24 131/60 (77) 97 09/22/16 09:30 69 130/84 09/22/16 09:30 69 23 130/84 (93) 96 09/22/16 09:17 Mechanical Ventilator 40 09/22/16 09:15 72 132/67 09/22/16 09:15 72 23 132/67 (89) 95 09/22/16 09:08 67 21 137/53 (100) 97 09/22/16 09:05 67 137/53 09/22/16 09:03 69 18 115/57 (66) 96 09/22/16 09:00 68 17 125/57 (65) 97 09/22/16 08:55 37.0 68 125/57 (79) 09/22/16 08:01 67 17 110/57 (67) 96 09/22/16 08:00 40 09/22/16 08:00 Mechanical Ventilator 40 09/22/16 08:00 65 18 96 09/22/16 07:23 50 Physical Exam: General-awake Eyes-+scleral icterus ENT-mmm Neck-supple Lungs-+clear Heart-regular Abdomen-bs+/soft Extremities-+1 edema in legs, right arm in sling Neuro-awake Current Inpatient Medications Medications (Trade) Dose Ordered Sig/Michael Route Start Time Stop Time Status Last Admin Dose Admin Ondansetron HCl (Zofran Inj) 4 mg Q6H PRN IV 09/17/16 16:15 10/17/16 16:14 Sodium Biphosphate/ Sodium Phosphate (Fleet Enema) 132 ml DAILY PRN DC 09/17/16 16:15 10/17/16 16:14 Prednisone (PredniSONE TAB) 1 mg QAM PO 09/18/16 09:00 10/18/16 08:59 Future Hold 09/19/16 08:28 1 MG Miconazole Nitrate (Desenex Powder) 1 appln BID EXT 09/17/16 21:00 10/17/16 20:59 09/22/16 21:00 1 APPLN Hydrocortisone Sodium Succinate 25 mg/Syringe 0.5 ml @ 4 mls/min Q8 IV 09/19/16 14:00 10/19/16 13:59 Future Hold 09/20/16 17:02 4 MLS/MIN Midodrine (Proamatine Tab) 5 mg TID@0800,1200,1800 PO 09/19/16 18:00 10/19/16 17:59 09/22/16 17:15 5 MG Levalbuterol (Xopenex 0.63 Mg/ 3 Ml Neb) 0.63 mg Q6H PRN INH 09/20/16 08:30 10/20/16 08:29 Pantoprazole Sodium 40 mg/ Syringe 10 ml @ 5 mls/min DAILY IV 09/21/16 09:00 10/21/16 08:59 09/22/16 08:17 5 MLS/MIN Piperacillin Sod/ Tazobactam Sod (Consult) 1 ea UD PRN N/A 09/20/16 21:15 10/20/16 21:14 Vancomycin HCl (Consult) 1 ea UD PRN N/A 09/20/16 21:45 10/20/16 21:44 Midazolam HCl (Versed Inj) 2.5 mg Q1H PRN IV 09/20/16 21:45 10/20/16 21:44 Future Hold 09/21/16 04:13 2.5 MG Fentanyl Citrate (Fentanyl Inj) 50 mcg Q1H PRN IV 09/20/16 21:45 10/04/16 21:44 Future Hold 09/21/16 04:14 50 MCG Norepinephrine Bitartrate 8 mg/ Dextrose 508 ml @ 0 mls/hr Q0M PRN IV 09/21/16 10:15 10/21/16 10:14 Piperacillin Sod/ Tazobactam Sod 4.5 gm/Dextrose 120 ml @ 30 mls/hr Q12H IV 09/21/16 20:00 09/27/16 19:59 09/22/16 21:37 30 MLS/HR Octreotide Acetate (Sandostatin Inj) 100 mcg Q8 IV. 09/22/16 06:00 10/19/16 21:59 09/23/16 05:36 100 MCG Rifaximin (Xifaxan Tab) 550 mg BID PO 09/22/16 21:00 10/22/16 20:59 09/22/16 21:37 550 MG Lactulose (Chronulac Syrup) 30 gm QID PRN PO 09/22/16 10:30 10/23/16 10:29 09/22/16 11:31 30 GM Methylprednisolone Sodium Succinate 20 mg/Syringe 0.32 ml @ 1.5 mls/min Q12 IV 09/22/16 21:00 09/27/16 23:59 09/22/16 21:00 1.5 MLS/MIN Enteral Nutritional Formula (Peptamen Intense VHP) 1,000 ml 10CC OG 09/22/16 16:30 10/22/16 16:29 09/22/16 19:05 1,000 ML Last 24 Hours Test 09/22/16 17:21 09/23/16 05:22 09/23/16 05:28 Bedside Glucose 127 mg/dl 139 mg/dl White Blood Count 17.37 K/uL Red Blood Count 2.84 M/uL Hemoglobin 8.4 g/dL Hematocrit 25.0 % Mean Corpuscular Volume 88.0 fL Mean Corpuscular Hemoglobin 29.6 pg Mean Corpuscular Hemoglobin Concent 33.6 g/dl RDW Standard Deviation 53.4 fL RDW Coefficient of Variation 16.8 % Platelet Count 135 K/uL Mean Platelet Volume 10.3 fL Sodium Level 137 mmol/L Potassium Level 3.4 mmol/L Chloride Level 102 mmol/L Carbon Dioxide Level 28 mmol/L Anion Gap 7.0 mmol/L Blood Urea Nitrogen 27 mg/dl Creatinine 1.80 mg/dl Est Creatinine Clear Calc Drug Dose 37.4 ml/min Estimated GFR () 35.3 Estimated GFR (Non- 30.5 BUN/Creatinine Ratio 15.2 Random Glucose 139 mg/dl Calcium Level 8.7 mg/dl Phosphorus Level 3.2 mg/dl Magnesium Level 2.1 mg/dl Random Vancomycin Level 23.0 mcg/ml Assessment & Plan ileana-atn vs HRS and dialyzing to help with fluid overload. had 40cc of urine output overnight. volume status appears improved. would dialyze again today for 2 liters uf on a 4k bath with k in the low 3s.
[2016-09-23 07:08] LABS: INR 1.8 (0.9-1.1); PROTHROMBIN TIME (PATIENT) 19.9 SECONDS (9.0-12.0)
--- NOTE | 2016-09-23 07:24 | Orthopedic Progress Note ---
Orthopedic Progress Note Date of Service Sep 23, 2016. Subjective Post OP Day: 5 Additional Notes: Patient is aroused with verbal command. She was able to open her eyes. She did give a slight head nod when asked how she was doing. Objective capillary refill less than 2 sec., dressing C/D/I (some red drainage inside the bandage window.) Patient was aroused by saying her name. She was able to open her eyes and move them slightly. dressing had some small amounts of drainage inside the window. Olecranon dressing is intact. Arm was resting comfortably in sling. Date Time Temp Pulse Resp B/P (MAP) Pulse Ox O2 Delivery O2 Flow Rate FiO2 09/23/16 06:07 40 09/23/16 06:00 76 23 124/50 (74) 98 Mechanical Ventilator 40 09/23/16 05:20 40 09/23/16 04:45 30 09/23/16 04:00 37.0 74 20 122/55 (77) 98 Mechanical Ventilator 40 09/23/16 04:00 98 Mechanical Ventilator 40 09/23/16 04:00 40 09/23/16 03:05 40 09/23/16 02:00 73 20 132/62 (85) 98 Mechanical Ventilator 40 09/23/16 00:06 40 09/22/16 23:59 40 09/22/16 23:59 37.2 77 18 108/48 (68) 95 Mechanical Ventilator 40 09/22/16 23:59 95 Mechanical Ventilator 40 09/22/16 22:00 77 17 114/61 (81) 96 09/22/16 21:30 80 14 117/51 (55) 97 09/22/16 20:47 40 09/22/16 20:30 67 18 96/50 (56) 97 09/22/16 20:00 40 09/22/16 20:00 37.0 83 16 96/50 (65) 97 Mechanical Ventilator 40 09/22/16 20:00 Mechanical Ventilator 40 09/22/16 20:00 72 16 109/53 (78) 96 09/22/16 19:30 70 19 105/44 (71) 97 09/22/16 19:00 74 17 116/53 (79) 97 09/22/16 18:42 40 09/22/16 18:30 76 18 115/55 (83) 97 09/22/16 18:00 81 12 120/54 (82) 98 09/22/16 17:45 74 17 116/53 (76) 96 09/22/16 17:32 70 18 101/49 (75) 97 09/22/16 17:30 71 17 88/51 (74) 97 09/22/16 17:15 70 16 95/43 (69) 95 09/22/16 17:00 77 20 108/58 (74) 97 09/22/16 16:45 75 16 110/51 (83) 98 09/22/16 16:30 75 18 105/48 (68) 98 09/22/16 16:24 37.0 76 16 114/47 (69) 100 Mechanical Ventilator 40 09/22/16 16:21 40 09/22/16 16:19 Mechanical Ventilator 40 09/22/16 16:15 71 16 104/47 (57) 98 09/22/16 16:00 64 16 106/51 (64) 97 09/22/16 15:45 72 21 114/47 (57) 96 09/22/16 15:30 70 15 105/43 (55) 97 09/22/16 15:15 76 18 123/49 (67) 96 09/22/16 15:00 76 15 103/48 (69) 97 09/22/16 14:45 40 09/22/16 14:45 77 16 106/64 (77) 100 09/22/16 14:30 73 19 107/44 (69) 98 09/22/16 14:15 73 17 104/50 (69) 99 09/22/16 14:00 74 18 105/50 (71) 99 09/22/16 13:49 70 18 91/62 (69) 98 09/22/16 13:45 73 19 170/58 (85) 99 09/22/16 13:30 75 16 /89 (143) 99 09/22/16 13:16 74 26 119/104 (113) 94 09/22/16 13:10 72 25 85/58 (72) 97 09/22/16 13:01 74 18 /60 (96) 97 09/22/16 13:00 73 18 98 09/22/16 12:20 36.9 74 154/60 (91) 09/22/16 12:15 74 23 154/60 (82) 98 09/22/16 12:13 74 18 147/74 (83) 95 09/22/16 12:00 Mechanical Ventilator 40 09/22/16 12:00 37.0 09/22/16 12:00 40 09/22/16 12:00 67 26 159/65 (107) 99 09/22/16 11:45 70 24 158/75 (92) 98 09/22/16 11:45 68 158/75 09/22/16 11:30 67 161/65 09/22/16 11:30 63 26 161/65 (118) 98 09/22/16 11:17 64 27 149/57 (76) 98 09/22/16 11:17 40 09/22/16 11:15 64 149/57 09/22/16 11:00 71 154/87 09/22/16 11:00 71 24 154/87 (98) 99 09/22/16 10:45 65 138/56 09/22/16 10:45 65 22 138/56 (67) 98 09/22/16 10:30 69 135/57 09/22/16 10:30 69 26 135/57 (76) 99 09/22/16 10:15 66 141/68 09/22/16 10:15 66 20 141/68 (84) 97 09/22/16 10:00 68 26 128/70 (91) 97 09/22/16 10:00 68 128/70 09/22/16 09:45 66 131/60 09/22/16 09:45 66 24 131/60 (77) 97 09/22/16 09:30 69 130/84 09/22/16 09:30 69 23 130/84 (93) 96 09/22/16 09:17 Mechanical Ventilator 40 09/22/16 09:15 72 132/67 09/22/16 09:15 72 23 132/67 (89) 95 09/22/16 09:08 67 21 137/53 (100) 97 09/22/16 09:05 67 137/53 09/22/16 09:03 69 18 115/57 (66) 96 09/22/16 09:00 68 17 125/57 (65) 97 09/22/16 08:55 37.0 68 125/57 (79) 09/22/16 08:01 67 17 110/57 (67) 96 09/22/16 08:00 40 09/22/16 08:00 Mechanical Ventilator 40 09/22/16 08:00 65 18 96 09/22/16 07:23 50 Laboratory Results 24 Hours: Test 09/23/16 05:22 Hematocrit 25.0 % Hemoglobin 8.4 g/dL Prothromb Time International Ratio 1.8 Prothrombin Time 19.9 SECONDS Assessment & Plan Assessment: POD #5 s/p Right reverse total shoulder arthroplasty, removal of deep hardware right proximal humerus, debridement of olecranon ulcer right elbow Patient was intubated due to respiratory failure. 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 They feel it is more related to liver toxicity rather than sepsis. 60 year old female post op from orthopedic surgery with altered mental status requiring intubation for impending hypoxic and hypercapnic respiratory failure Neuro - CAM positive - Initially sedated with fentanyl and Versed, discontinued at 09/21/16 @ 04:51 - EEG shows moderate encephalopathy of nonspecific etiology. Neurology consulted - Ammonia previously elevated, was given lactulose and currently ammonia levels within normal range - Continue to monitor for changes in RASS CV - BP noted to be 80-low 100's systolic. Levophed ordered PRN during dialysis if needed only. - Echo confirmed intact interatrial septum with no evidence for a hepaptopulmonary shunt. confirmed via bubble study Resp: - Intubated with ventilator support: CPAP, patient breathing 29 breaths/min, PSV 12, PEEP 8, FiO2 50, End tidal CO2 55 - Plans to switch ventilator to assisted control - Bronchoscopy performed. Samples sent for cultures. Abdo/GI - Evidence of hepatorenal syndrome. Patient awaiting transplant. MELD score 30. GI consulted. - Continue lactulose - Continue to trend LFTS - GI prophylaxs: IV pantoprazole 40mg BID - Enteral nutrition as per postdoctoral scholar Renal/Fluid - Dialysis received yesterday with removal of 3L of fluid. Creatinine improved subsequently. Plans to repeat dialysis today - Limiting fluids secondary to fluid overload. Trending BMP - Continue strict I&O's - urine perez in situ ID - Afebrile with leukocytosis. Procalcitonin elevated - Continue coverage with Zosyn and Vancomycin. Source of infection not confirmed , UTI vs. pneumonia Endo - Continue methylprednisone for now, plans to taper/stop tomorrow - Continue monitoring blood glucose Access - 2x peripheral IV, 1x central trialysis catheter Consults & Procedures Consultants: Gastroenterology: Dr. Noel Neurology: Dr. Dunn Nephrology: [place] Orthopedics: Dr. Fontenot Wound care: Dr. Yeung Discharge Planning Discharge Planning: uncertain
--- NOTE | 2016-09-23 07:56 | Critical Care Progress Note ---
Critical Care Progress Note Date of Service Sep 23, 2016. ICU Day ICU Day Number: [address] Tong Subjective Patient remains intubated, but is now more responsive to stimuli and able to answer simple questions by head movement, but has waxing and waning drowsiness. She currently denies pain, but did not answer any further questions. Unable to attain further ROS Objective GENERAL: Responsive, lying in bed, intubated and ventilated HEAD: Normocephalic, atraumatic. EYES: Normal sclera and conjunctiva. No tracking noted today. Scleral and conjunctiva normal. Good eyelid muscle control NECK: Supple, no adenopathy. Able to hold neck up for ~10sec. LUNGS: Normal chest wall mechanics, poor air entry. No crackles, or wheezes HEART: S1 and S2 normal, no murmurs appreciated ABDOMEN: abdomen soft, diminished bowel sounds, no masses, no rebound or guarding. SKIN: Warm, pink, dry. No rashes. Bruising on left arm from previous trial of PICC insertion. Evidence of venostasis on lower limbs. EXTREMITIES: Bandage on right arm from shoulder surgery. Bilateral lower extremity edema NEURO: Responsive to voice -- opens eyes. Pupils equal. Some neck movement, including ability to nod/shake her head. Preference to lie head to her left, nut no torticollis or nuchal rigidity present. Current SOFA Score SOFA Score Response (Comments) Value Platelets (x10) < 150 1 Bilirubin (mg/dL) 2.0 - 5.9 2 Ariana Coma Score < 6 4 Level of Hypotension No Hypotension 0 Creatinine (mg/dL) 1.2 - 1.9 1 Total 8 Assessment & Plan 60 year old female post op from orthopedic surgery with altered mental status secondary to hepatorenal syndrome, requiring intubation for impending hypoxic and hypercapnic respiratory failure Neuro - CAM positive. - Fentanyl and Versed discontinued at 09/21/16 @ 04:51, slow improvement in RASS since - EEG shows moderate encephalopathy of nonspecific etiology. Neurology consulted - Continue to monitor for changes in RASS CV - SBP noted to be 90-120's. Levophed ordered PRN during dialysis if needed only. - Echo bubble study confirmed no hepatopulmonary shunt Resp - Intubated with ventilator support: CPAP, patient breathing 22 breaths/min, PSV 12, PEEP 8, FiO2 40, End tidal CO2 36 - Arm restraints ordered for the day (*of note, were also ordered yesterday under the order of "restrict arm movement") GI/Nutrition - Has hepatorenal syndrome. Patient previously on transplant list but was too well. Current MELD score 30. GI consulted. - Discussion of transfer to [facility] for transplant evaluation was had, family has declined for now, will reconsider if patient continues to improve - Ammonia previously elevated, now normal. Trend ammonia. Continue lactulose QID. Start rifaximin. Continue midodrine and octreotide for now. - Continue to trend LFTS - GI prophylaxis: IV pantoprazole 40mg BID - Enteral nutrition switch to Nepro - trickle feeds + added multivitamin Renal/Fluid - S/p third dialysis (total fluid removal to date 7.7L). Creatinine stable. - Limiting fluids secondary to fluid overload. Trending BMP - Continue strict I&O's - discontinue urine Esposito given low urine output ID - Afebrile with increasing leukocytosis. Procalcitonin unchanged - CXR shows slight progression in lung opacities, and small bilateral pleural effusions - Bronchoscopy samples positive for kristen albicans. Cultures pending - Continue coverage with Zosyn and Vancomycin (Day 4/7) + start IV fluconazole Endo - Continue methylprednisone 20mg BID x 5 days, then stop - Continue monitoring blood glucose Heme - Leukocytosis increased, anemia and thrombocytopenia unchanged from day prior. Continue to monitor. - DVT prophylaxis with heparin SC 5000 units BID since no longer azotemic. Access - 2x peripheral IV, 1x central trialysis catheter Resident Physician Supervision Note: Dr. Weaver was resident physician during care of patient. I separately evaluated patient and did history and exam. I discussed the case with the resident and generally agree with the findings and plan. Neuro: Patient appears more alert and last 24 hours, appears to be interacting and responding to questions Resp: Mild improvement tolerated today being on pressure support ventilation at 11 over 5 with 35% FiO2, procalcitonin still elevated will complete 7 days of antibiotic treatment, candidiasis noted in the BAL specimen. Will treat with Diflucan, sensitivities of kristen are not performed at this institution will look for appropriate clinical response. Will rest on ЕКАТЕРИНА overnights and have spontaneous breathing trial again tomorrow hoped to progress to 24 hours of pressure support ventilation and possible extubation parameters within limits CV: Tolerating hemodialysis without additional vasoactive medications Fluids/Renal: Discussed with nephrology will require more permanent vascular access for dialysis ID: 7 days empiric treatment for pneumonia, added antifungal coverage based on findings and BAL GI/Nutrition: Progress with tube feeding Heme: Heparin prophylaxis 5000 units 2 times a day Endocrine: Blood sugars within acceptable limits I have personally spent 40 minutes of critical care time in the direct management of this patient. This is a life/limb threatening event. This includes time spent evaluating patient, direct bedside care, chart review, placing orders, interpretation of diagnostic studies, discussion with consultants, patient, and family members, as well as other required patient management activities. This time is exclusive of all separately billable procedures, and teaching time and separate from and in addition to any other critical care service time. Documented By: Toi Tong DO Consults & Procedures Consultants: Gastroenterology: Dr. Noel Neurology: Dr. Dunn Nephrology: Dr. Thakkar Orthopedics: Dr. Fontenot Wound care: Dr. Yeung Procedures: 09/17/16: Right reverse total shoulder arthroplasty, removal of deep hardware right proximal humerus, debridement of olecranon ulcer right elbow 09/20/16: Trialysis central catheter inserted 09/20/16: Echo 09/20/16: Intubated 09/21/16: Bronchoscopy Data Medications: Current Inpatient Medications Medications (Trade) Dose Ordered Sig/Michael Route Start Time Stop Time Status Last Admin Dose Admin Ondansetron HCl (Zofran Inj) 4 mg Q6H PRN IV 09/17/16 16:15 10/17/16 16:14 Sodium Biphosphate/ Sodium Phosphate (Fleet Enema) 132 ml DAILY PRN [place] 09/17/16 16:15 10/17/16 16:14 Prednisone (PredniSONE TAB) 1 mg QAM PO 09/18/16 09:00 10/18/16 08:59 Future Hold 09/19/16 08:28 1 MG Miconazole Nitrate (Desenex Powder) 1 appln BID EXT 09/17/16 21:00 10/17/16 20:59 09/22/16 21:00 1 APPLN Hydrocortisone Sodium Succinate 25 mg/Syringe 0.5 ml @ 4 mls/min Q8 IV 09/19/16 14:00 10/19/16 13:59 Future Hold 09/20/16 17:02 4 MLS/MIN Midodrine (Proamatine Tab) 5 mg TID@0800,1200,1800 PO 09/19/16 18:00 10/19/16 17:59 09/22/16 17:15 5 MG Levalbuterol (Xopenex 0.63 Mg/ 3 Ml Neb) 0.63 mg Q6H PRN INH 09/20/16 08:30 10/20/16 08:29 Pantoprazole Sodium 40 mg/ Syringe 10 ml @ 5 mls/min DAILY IV 09/21/16 09:00 10/21/16 08:59 09/22/16 08:17 5 MLS/MIN Piperacillin Sod/ Tazobactam Sod (Consult) 1 ea UD PRN N/A 09/20/16 21:15 10/20/16 21:14 Vancomycin HCl (Consult) 1 ea UD PRN N/A 09/20/16 21:45 10/20/16 21:44 Midazolam HCl (Versed Inj) 2.5 mg Q1H PRN IV 09/20/16 21:45 10/20/16 21:44 Future Hold 09/21/16 04:13 2.5 MG Fentanyl Citrate (Fentanyl Inj) 50 mcg Q1H PRN IV 09/20/16 21:45 10/04/16 21:44 Future Hold 09/21/16 04:14 50 MCG Norepinephrine Bitartrate 8 mg/ Dextrose 508 ml @ 0 mls/hr Q0M PRN IV 09/21/16 10:15 10/21/16 10:14 Piperacillin Sod/ Tazobactam Sod 4.5 gm/Dextrose 120 ml @ 30 mls/hr Q12H IV 09/21/16 20:00 09/27/16 19:59 09/22/16 21:37 30 MLS/HR Octreotide Acetate (Sandostatin Inj) 100 mcg Q8 IV. 09/22/16 06:00 10/19/16 21:59 09/23/16 05:36 100 MCG Rifaximin (Xifaxan Tab) 550 mg BID PO 09/22/16 21:00 10/22/16 20:59 09/22/16 21:37 550 MG Lactulose (Chronulac Syrup) 30 gm QID PRN PO 09/22/16 10:30 10/23/16 10:29 09/22/16 11:31 30 GM Methylprednisolone Sodium Succinate 20 mg/Syringe 0.32 ml @ 1.5 mls/min Q12 IV 09/22/16 21:00 09/27/16 23:59 09/22/16 21:00 1.5 MLS/MIN Enteral Nutritional Formula (Peptamen Intense VHP) 1,000 ml 10CC OG 09/22/16 16:30 10/22/16 16:29 09/22/16 19:05 1,000 ML Vital Signs: Date Time Temp Pulse Resp B/P (MAP) Pulse Ox O2 Delivery O2 Flow Rate FiO2 09/23/16 07:28 40 09/23/16 06:07 40 09/23/16 06:00 76 23 124/50 (74) 98 Mechanical Ventilator 40 09/23/16 05:20 40 09/23/16 04:45 30 09/23/16 04:00 37.0 74 20 122/55 (77) 98 Mechanical Ventilator 40 09/23/16 04:00 98 Mechanical Ventilator 40 09/23/16 04:00 40 09/23/16 03:05 40 09/23/16 02:00 73 20 132/62 (85) 98 Mechanical Ventilator 40 09/23/16 00:06 40 09/22/16 23:59 40 09/22/16 23:59 37.2 77 18 108/48 (68) 95 Mechanical Ventilator 40 09/22/16 23:59 95 Mechanical Ventilator 40 09/22/16 22:00 77 17 114/61 (81) 96 09/22/16 21:30 80 14 117/51 (55) 97 09/22/16 20:47 40 09/22/16 20:30 67 18 96/50 (56) 97 09/22/16 20:00 40 09/22/16 20:00 37.0 83 16 96/50 (65) 97 Mechanical Ventilator 40 09/22/16 20:00 Mechanical Ventilator 40 09/22/16 20:00 72 16 109/53 (78) 96 09/22/16 19:30 70 19 105/44 (71) 97 09/22/16 19:00 74 17 116/53 (79) 97 09/22/16 18:42 40 09/22/16 18:30 76 18 115/55 (83) 97 09/22/16 18:00 81 12 120/54 (82) 98 8/16/17 17:45 74 17 116/53 (76) 96 1617 17:32 70 18 101/49 (75) 97 1617 17:30 71 17 88/51 (74) 97 1617 17:15 70 16 95/43 (69) 95 17 17:00 77 20 108/58 (74) 97 1617 16:45 75 16 110/51 (83) 98 1617 16:30 75 18 105/48 (68) 98 16 16:24 37.0 76 16 114/47 (69) 100 Mechanical Ventilator 40 09/22/16 16:21 40 16 16:19 Mechanical Ventilator 40 09/22/16 16:15 71 16 104/47 (57) 98 17 16:00 64 16 106/51 (64) 97 09/22/16 15:45 72 21 114/47 (57) 96 09/22/16 15:30 70 15 105/43 (55) 97 09/22/16 15:15 76 18 123/49 (67) 96 09/22/16 15:00 76 15 103/48 (69) 97 09/22/16 14:45 40 09/22/16 14:45 77 16 106/64 (77) 100 09/22/16 14:30 73 19 107/44 (69) 98 09/22/16 14:15 73 17 104/50 (69) 99 09/22/16 14:00 74 18 105/50 (71) 99 09/22/16 13:49 70 18 91/62 (69) 98 17 13:45 73 19 170/58 (85) 99 1617 13:30 75 16 /89 (143) 99 16/17 13:16 74 26 119/104 (113) 94 17 13:10 72 25 85/58 (72) 97 09/22/16 13:01 74 18 /60 (96) 97 16/17 13:00 73 18 98 09/22/16 12:20 36.9 74 154/60 (91) 16 12:15 74 23 154/60 (82) 98 16/17 12:13 74 18 147/74 (83) 95 8/16/17 12:00 Mechanical Ventilator 40 09/22/16 12:00 37.0 09/22/16 12:00 40 09/22/16 12:00 67 26 159/65 (107) 99 09/22/16 11:45 70 24 158/75 (92) 98 09/22/16 11:45 68 158/75 09/22/16 11:30 67 161/65 09/22/16 11:30 63 26 161/65 (118) 98 09/22/16 11:17 64 27 149/57 (76) 98 09/22/16 11:17 40 09/22/16 11:15 64 149/57 09/22/16 11:00 71 154/87 09/22/16 11:00 71 24 154/87 (98) 99 09/22/16 10:45 65 138/56 09/22/16 10:45 65 22 138/56 (67) 98 09/22/16 10:30 69 135/57 09/22/16 10:30 69 26 135/57 (76) 99 09/22/16 10:15 66 141/68 09/22/16 10:15 66 20 141/68 (84) 97 09/22/16 10:00 68 26 128/70 (91) 97 09/22/16 10:00 68 128/70 09/22/16 09:45 66 131/60 09/22/16 09:45 66 24 131/60 (77) 97 09/22/16 09:30 69 130/84 09/22/16 09:30 69 23 130/84 (93) 96 09/22/16 09:17 Mechanical Ventilator 40 09/22/16 09:15 72 132/67 09/22/16 09:15 72 23 132/67 (89) 95 09/22/16 09:08 67 21 137/53 (100) 97 09/22/16 09:05 67 137/53 09/22/16 09:03 69 18 115/57 (66) 96 09/22/16 09:00 68 17 125/57 (65) 97 09/22/16 08:55 37.0 68 125/57 (79) 09/22/16 08:01 67 17 110/57 (67) 96 09/22/16 08:00 40 09/22/16 08:00 Mechanical Ventilator 40 09/22/16 08:00 65 18 96 Laboratory Results: Last 24 Hours Test 09/22/16 17:21 09/23/16 05:22 09/23/16 05:28 09/23/16 07:28 Bedside Glucose 127 mg/dl 139 mg/dl White Blood Count 17.37 K/uL Red Blood Count 2.84 M/uL Hemoglobin 8.4 g/dL Hematocrit 25.0 % Mean Corpuscular Volume 88.0 fL Mean Corpuscular Hemoglobin 29.6 pg Mean Corpuscular Hemoglobin Concent 33.6 g/dl RDW Standard Deviation 53.4 fL RDW Coefficient of Variation 16.8 % Platelet Count 135 K/uL Mean Platelet Volume 10.3 fL Prothrombin Time 19.9 SECONDS Prothromb Time International Ratio 1.8 Sodium Level 137 mmol/L Potassium Level 3.4 mmol/L Chloride Level 102 mmol/L Carbon Dioxide Level 28 mmol/L Anion Gap 7.0 mmol/L Blood Urea Nitrogen 27 mg/dl Creatinine 1.80 mg/dl Est Creatinine Clear Calc Drug Dose 37.4 ml/min Estimated GFR () 35.3 Estimated GFR (Non- 30.5 BUN/Creatinine Ratio 15.2 Random Glucose 139 mg/dl Calcium Level 8.7 mg/dl Phosphorus Level 3.2 mg/dl Magnesium Level 2.1 mg/dl Procalcitonin 2.10 ng/ml Random Vancomycin Level 23.0 mcg/ml
[2016-09-23] MEDS ORDERED: NOVASOURCE RENAL 1000ML BAG OG PRN (09:00)
--- NOTE | 2016-09-23 09:14 | Progress Note ---
Internal Med Progress Note Date of Service: Sep 23, 2016. Provider Documentation: SUBJECTIVE: Seen and examined at bedside. Alert, awake off sedation Remains Intubated Getting dialysis currently Afebrile Doesn't follow simple commands OBJECTIVE: Vital Signs-as noted below Physical Exam: General Appearance:sedated and Intubated Head: normocephalic, Atraumatic Eyes: normal inspection, icteric Neck: supple, Trachea midline Respiratory/Chest: Coarse breath sounds Cardiovascular: S1, S2, + murmur Abdomen/GI:Soft, mildly distended, Bowel sounds present Extremities/Musculoskelatal:normal inspection, 1+ edema Neurologic/Psych:sedated and Intubated Skin: normal color, warm Lab data as noted below. ASSESSMENT & PLAN: Patient is a 60 yr female admitted for R humerus fracture, s/p reverse total shoulder arthroplasty ACUTE HYPOXIC AND HYPERCAPNIC RESPIRATORY FAILURE PULMONARY EDEMA POSSIBLE ASPIRATION PNEUMONIA Most likely secondary to volume overload from diastolic heart failure Chest x-ray shows bilateral infiltrates, probably pulmonary edema (although other processes are possible). S/P IV furosemide Dialysis for volume overload being managed by Nephrology Continue Levalbuterol neb PRN Intubated on 09/20 Vent management per ICU team S/P Bronchoscopy on 09/21 Follow up bronchial washings studies: Normal sebastián, Fungal and AFB pending Continue : Vanco and Zosyn Bubble Study:no interatrial shunt and no findings to suggest hepatopulmonary shunt ECHO from 12/22/15: EF:55-59% H/O P. ATRIAL TACHYCARDIA Currently rate controlled Was on propranolol at home ENCEPHALOPATHY: Likely multifactorial: medications, hepatic encephalopathy, hypercapnia EEG: indicates moderate encephalopathy of nonspecific etiology CT head:Mild heterogeneity of the periventricular deep white matter regions possibly secondary to small vessel change Neurology following May need MRI brain at some point if no improvement CARLOS ENRIQUE/ATN Vs HRS CKD III Cr:1.8 today Ketorolac discontinued. Initially received IVFs and hydrocortisone. Appreciate Nephrology, GI help Continue midodrine, octreotide for hepatorenal syndrome. Requiring daily dialysis BILIARY CIRRHOSIS Appreciate GI input continue lactulose, Rifaximin for hepatic encephalopathy. Ammonia level: 59 >>>25 >>>10 ABD USD: no ascites Continue Octreotide, Midodrine Needs to have Hepatology eval for possible liver/kidney transplant CHRONIC STEROID THERAPY Chronic prednisone therapy for chronic pericarditis. S/P IV hydrocortisone Resume PO prednisone when able S/P Right reverse total shoulder arthroplasty, removal of deep hardware right proximal humerus, debridement of olecranon ulcer right elbow POD # 6 Orthopedics following DVT Px: SCD's PROCEDURES: CT head: 1. Mild heterogeneity of the periventricular deep white matter regions possibly secondary to small vessel change. 2. Limited study technically due to patient motion. 3. Mild mucosal thickening of the mastoid air cells. 4. No evidence for acute intracranial hemorrhage. Vital Signs: Date Time Temp Pulse Resp B/P (MAP) Pulse Ox O2 Delivery O2 Flow Rate FiO2 09/23/16 09:05 CPAP 40 Mechanical Ventilator 09/23/16 08:00 98 Mechanical Ventilator 40 09/23/16 08:00 37.0 74 20 119/49 (72) 98 Mechanical Ventilator 40 09/23/16 08:00 40 09/23/16 07:28 40 09/23/16 06:07 40 09/23/16 06:00 76 23 124/50 (74) 98 Mechanical Ventilator 40 09/23/16 05:20 40 09/23/16 04:45 30 09/23/16 04:00 37.0 74 20 122/55 (77) 98 Mechanical Ventilator 40 09/23/16 04:00 98 Mechanical Ventilator 40 09/23/16 04:00 40 09/23/16 03:05 40 09/23/16 02:00 73 20 132/62 (85) 98 Mechanical Ventilator 40 09/23/16 00:06 40 09/22/16 23:59 40 09/22/16 23:59 37.2 77 18 108/48 (68) 95 Mechanical Ventilator 40 09/22/16 23:59 95 Mechanical Ventilator 40 09/22/16 22:00 77 17 114/61 (81) 96 09/22/16 21:30 80 14 117/51 (55) 97 09/22/16 20:47 40 09/22/16 20:30 67 18 96/50 (56) 97 09/22/16 20:00 40 09/22/16 20:00 37.0 83 16 96/50 (65) 97 Mechanical Ventilator 40 09/22/16 20:00 Mechanical Ventilator 40 09/22/16 20:00 72 16 109/53 (78) 96 09/22/16 19:30 70 19 105/44 (71) 97 09/22/16 19:00 74 17 116/53 (79) 97 09/22/16 18:42 40 09/22/16 18:30 76 18 115/55 (83) 97 09/22/16 18:00 81 12 120/54 (82) 98 17 17:45 74 17 116/53 (76) 96 09/22/16 17:32 70 18 101/49 (75) 97 09/22/16 17:30 71 17 88/51 (74) 97 09/22/16 17:15 70 16 95/43 (69) 95 09/22/16 17:00 77 20 108/58 (74) 97 09/22/16 16:45 75 16 110/51 (83) 98 09/22/16 16:30 75 18 105/48 (68) 98 09/22/16 16:24 37.0 76 16 114/47 (69) 100 Mechanical Ventilator 40 09/22/16 16:21 40 09/22/16 16:19 Mechanical Ventilator 40 09/22/16 16:15 71 16 104/47 (57) 98 09/22/16 16:00 64 16 106/51 (64) 97 09/22/16 15:45 72 21 114/47 (57) 96 09/22/16 15:30 70 15 105/43 (55) 97 09/22/16 15:15 76 18 123/49 (67) 96 09/22/16 15:00 76 15 103/48 (69) 97 09/22/16 14:45 40 09/22/16 14:45 77 16 106/64 (77) 100 09/22/16 14:30 73 19 107/44 (69) 98 09/22/16 14:15 73 17 104/50 (69) 99 09/22/16 14:00 74 18 105/50 (71) 99 09/22/16 13:49 70 18 91/62 (69) 98 17 13:45 73 19 170/58 (85) 99 17 13:30 75 16 /89 (143) 99 09/22/16 13:16 74 26 119/104 (113) 94 09/22/16 13:10 72 25 85/58 (72) 97 09/22/16 13:01 74 18 /60 (96) 97 09/22/16 13:00 73 18 98 09/22/16 12:20 36.9 74 154/60 (91) 09/22/16 12:15 74 23 154/60 (82) 98 09/22/16 12:13 74 18 147/74 (83) 95 09/22/16 12:00 Mechanical Ventilator 40 09/22/16 12:00 37.0 09/22/16 12:00 40 09/22/16 12:00 67 26 159/65 (107) 99 09/22/16 11:45 70 24 158/75 (92) 98 09/22/16 11:45 68 158/75 09/22/16 11:30 67 161/65 09/22/16 11:30 63 26 161/65 (118) 98 09/22/16 11:17 64 27 149/57 (76) 98 09/22/16 11:17 40 09/22/16 11:15 64 149/57 09/22/16 11:00 71 154/87 09/22/16 11:00 71 24 154/87 (98) 99 09/22/16 10:45 65 138/56 09/22/16 10:45 65 22 138/56 (67) 98 09/22/16 10:30 69 135/57 09/22/16 10:30 69 26 135/57 (76) 99 09/22/16 10:15 66 141/68 09/22/16 10:15 66 20 141/68 (84) 97 09/22/16 10:00 68 26 128/70 (91) 97 09/22/16 10:00 68 128/70 09/22/16 09:45 66 131/60 09/22/16 09:45 66 24 131/60 (77) 97 Lab Results: Results Past 24 Hours Test 09/22/16 17:21 09/23/16 05:22 09/23/16 05:28 09/23/16 07:28 Range/Units Bedside Glucose 127 139 70-90 mg/dl White Blood Count 17.37 4.8-10.8 K/uL Red Blood Count 2.84 4.2-5.4 M/uL Hemoglobin 8.4 12.0-16.0 g/dL Hematocrit 25.0 37-47 % Mean Corpuscular Volume 88.0 80-100 fL Mean Corpuscular Hemoglobin 29.6 25-34 pg Mean Corpuscular Hemoglobin Concent 33.6 32-36 g/dl RDW Standard Deviation 53.4 36.4-46.3 fL RDW Coefficient of Variation 16.8 11.5-14.5 % Platelet Count 135 130-400 K/uL Mean Platelet Volume 10.3 7.4-10.4 fL Prothrombin Time 19.9 9.0-12.0 SECONDS Prothromb Time International Ratio 1.8 0.9-1.1 Sodium Level 137 136-145 mmol/L Potassium Level 3.4 3.5-5.1 mmol/L Chloride Level 102 98-107 mmol/L Carbon Dioxide Level 28 21-32 mmol/L Anion Gap 7.0 3-11 mmol/L Blood Urea Nitrogen 27 7-18 mg/dl Creatinine 1.80 0.60-1.20 mg/dl Est Creatinine Clear Calc Drug Dose 37.4 ml/min Estimated GFR () 35.3 Estimated GFR (Non- 30.5 BUN/Creatinine Ratio 15.2 10-20 Random Glucose 139 70-99 mg/dl Calcium Level 8.7 8.5-10.1 mg/dl Phosphorus Level 3.2 2.5-4.9 mg/dl Magnesium Level 2.1 1.8-2.4 mg/dl Procalcitonin 2.10 0-0.5 ng/ml Random Vancomycin Level 23.0 mcg/ml Total Bilirubin 3.8 0.2-1 mg/dl Direct Bilirubin 3.0 0-0.2 mg/dl Aspartate Amino Transf (AST/SGOT) 74 15-37 U/L Alanine Aminotransferase (ALT/SGPT) 15 12-78 U/L Alkaline Phosphatase 198 45-117 U/L Total Protein 5.0 6.4-8.2 gm/dl Albumin 2.3 3.4-5.0 gm/dl
--- NOTE | 2016-09-23 10:48 | Gastroenterology Progress Note ---
Progress Note Date of Service: Sep 23, 2016 Subjective Pt evaluation today including: physical exam, chart review, lab review, review of studies, review of inpatient medication list Pt only able to open eyes when name called, no purposeful movements or following any commands otherwise. Still intubated. Unable to obtain ROS Review of Systems Constitutional: + see HPI Medications Current Inpatient Medications Medications (Trade) Dose Ordered Sig/Michael Route Start Time Stop Time Status Last Admin Dose Admin Miconazole Nitrate (Desenex Powder) 1 appln BID EXT 09/17/16 21:00 10/17/16 20:59 09/22/16 21:00 1 APPLN Midodrine (Proamatine Tab) 5 mg TID@0800,1200,1800 PO 09/19/16 18:00 10/19/16 17:59 09/22/16 17:15 5 MG Levalbuterol (Xopenex 0.63 Mg/ 3 Ml Neb) 0.63 mg Q6H PRN INH 09/20/16 08:30 10/20/16 08:29 Pantoprazole Sodium 40 mg/ Syringe 10 ml @ 5 mls/min DAILY IV 09/21/16 09:00 10/21/16 08:59 09/22/16 08:17 5 MLS/MIN Piperacillin Sod/ Tazobactam Sod (Consult) 1 ea UD PRN N/A 09/20/16 21:15 10/20/16 21:14 Vancomycin HCl (Consult) 1 ea UD PRN N/A 09/20/16 21:45 10/20/16 21:44 Midazolam HCl (Versed Inj) 2.5 mg Q1H PRN IV 09/20/16 21:45 10/20/16 21:44 Future Hold 09/21/16 04:13 2.5 MG Fentanyl Citrate (Fentanyl Inj) 50 mcg Q1H PRN IV 09/20/16 21:45 10/04/16 21:44 Future Hold 09/21/16 04:14 50 MCG Piperacillin Sod/ Tazobactam Sod 4.5 gm/Dextrose 120 ml @ 30 mls/hr Q12H IV 09/21/16 20:00 09/27/16 19:59 09/22/16 21:37 30 MLS/HR Octreotide Acetate (Sandostatin Inj) 100 mcg Q8 IV. 09/22/16 06:00 10/19/16 21:59 09/23/16 05:36 100 MCG Rifaximin (Xifaxan Tab) 550 mg BID PO 09/22/16 21:00 10/22/16 20:59 09/22/16 21:37 550 MG Lactulose (Chronulac Syrup) 30 gm QID PRN PO 09/22/16 10:30 10/23/16 10:29 09/22/16 11:31 30 GM Lactulose (Chronulac Syrup) 30 gm QID PO 09/23/16 09:00 10/23/16 08:59 Enteral Nutritional Formula (Novasource Renal) 1,000 ml UD PRN OG 09/23/16 09:00 10/23/16 08:59 Methylprednisolone Sodium Succinate 20 mg/Syringe 0.32 ml @ 1.5 mls/min DAILY IV 09/24/16 09:00 09/27/16 08:59 UNV Heparin Sodium (Porcine) (Heparin Sq 5000 Unit/0.5ml) 5,000 unit Q8 SQ 09/23/16 14:00 10/23/16 13:59 UNV Multivitamins Therapeutic (Cerovite Liquid) 15 ml QAM PO 09/24/16 09:00 10/24/16 08:59 UNV Sterile Water (Tube Feeding Water Flush) 1 ea Q4 NG 09/23/16 12:00 10/23/16 11:59 Objective Vital Signs Date Time Temp Pulse Resp B/P (MAP) Pulse Ox O2 Delivery O2 Flow Rate FiO2 09/23/16 10:30 70 119/56 09/23/16 10:15 73 127/56 09/23/16 10:00 77 24 113/63 (80) 96 Mechanical Ventilator 40 09/23/16 10:00 75 113/63 09/23/16 09:45 72 112/57 09/23/16 09:30 67 114/51 09/23/16 09:15 71 120/52 09/23/16 09:05 CPAP 40 Mechanical Ventilator 09/23/16 09:00 72 124/63 09/23/16 08:45 68 122/60 09/23/16 08:40 37.0 75 125/57 (79) 09/23/16 08:00 98 Mechanical Ventilator 40 09/23/16 08:00 37.0 74 20 119/49 (72) 98 Mechanical Ventilator 40 09/23/16 08:00 40 09/23/16 07:28 40 09/23/16 06:07 40 09/23/16 06:00 76 23 124/50 (74) 98 Mechanical Ventilator 40 09/23/16 05:20 40 09/23/16 04:45 30 09/23/16 04:00 37.0 74 20 122/55 (77) 98 Mechanical Ventilator 40 09/23/16 04:00 98 Mechanical Ventilator 40 09/23/16 04:00 40 09/23/16 03:05 40 09/23/16 02:00 73 20 132/62 (85) 98 Mechanical Ventilator 40 09/23/16 00:06 40 09/22/16 23:59 40 09/22/16 23:59 37.2 77 18 108/48 (68) 95 Mechanical Ventilator 40 09/22/16 23:59 95 Mechanical Ventilator 40 09/22/16 22:00 77 17 114/61 (81) 96 09/22/16 21:30 80 14 117/51 (55) 97 09/22/16 20:47 40 09/22/16 20:30 67 18 96/50 (56) 97 09/22/16 20:00 40 09/22/16 20:00 37.0 83 16 96/50 (65) 97 Mechanical Ventilator 40 09/22/16 20:00 Mechanical Ventilator 40 09/22/16 20:00 72 16 109/53 (78) 96 09/22/16 19:30 70 19 105/44 (71) 97 09/22/16 19:00 74 17 116/53 (79) 97 09/22/16 18:42 40 09/22/16 18:30 76 18 115/55 (83) 97 09/22/16 18:00 81 12 120/54 (82) 98 09/22/16 17:45 74 17 116/53 (76) 96 09/22/16 17:32 70 18 101/49 (75) 97 09/22/16 17:30 71 17 88/51 (74) 97 09/22/16 17:15 70 16 95/43 (69) 95 09/22/16 17:00 77 20 108/58 (74) 97 09/22/16 16:45 75 16 110/51 (83) 98 09/22/16 16:30 75 18 105/48 (68) 98 09/22/16 16:24 37.0 76 16 114/47 (69) 100 Mechanical Ventilator 40 09/22/16 16:21 40 09/22/16 16:19 Mechanical Ventilator 40 09/22/16 16:15 71 16 104/47 (57) 98 09/22/16 16:00 64 16 106/51 (64) 97 09/22/16 15:45 72 21 114/47 (57) 96 09/22/16 15:30 70 15 105/43 (55) 97 09/22/16 15:15 76 18 123/49 (67) 96 09/22/16 15:00 76 15 103/48 (69) 97 09/22/16 14:45 40 09/22/16 14:45 77 16 106/64 (77) 100 09/22/16 14:30 73 19 107/44 (69) 98 09/22/16 14:15 73 17 104/50 (69) 99 09/22/16 14:00 74 18 105/50 (71) 99 09/22/16 13:49 70 18 91/62 (69) 98 09/22/16 13:45 73 19 170/58 (85) 99 09/22/16 13:30 75 16 /89 (143) 99 09/22/16 13:16 74 26 119/104 (113) 94 09/22/16 13:10 72 25 85/58 (72) 97 09/22/16 13:01 74 18 /60 (96) 97 09/22/16 13:00 73 18 98 09/22/16 12:20 36.9 74 154/60 (91) 09/22/16 12:15 74 23 154/60 (82) 98 09/22/16 12:13 74 18 147/74 (83) 95 09/22/16 12:00 Mechanical Ventilator 40 09/22/16 12:00 37.0 09/22/16 12:00 40 09/22/16 12:00 67 26 159/65 (107) 99 09/22/16 11:45 70 24 158/75 (92) 98 09/22/16 11:45 68 158/75 09/22/16 11:30 67 161/65 09/22/16 11:30 63 26 161/65 (118) 98 09/22/16 11:17 64 27 149/57 (76) 98 09/22/16 11:17 40 09/22/16 11:15 64 149/57 09/22/16 11:00 71 154/87 09/22/16 11:00 71 24 154/87 (98) 99 09/22/16 10:45 65 138/56 09/22/16 10:45 65 22 138/56 (67) 98 Physical Exam General Appearance: no apparent distress Neck: + pertinent finding (intubatd) Respiratory/Chest: + decreased breath sounds (on bases) Cardiovascular: regular rate, rhythm, no gallop, no murmur Abdomen: soft, + abnormal bowel sounds (hypoactive) Extremities: + swelling (generalized edema on legs improving ) Neurologic/Psych: + pertinent finding (only able to open eyes when name called , but no purposeful movement or following any commands ) Laboratory Results Last 24 Hours Test 09/22/16 17:21 09/23/16 05:22 09/23/16 05:28 09/23/16 07:28 Bedside Glucose 127 mg/dl 139 mg/dl White Blood Count 17.37 K/uL Red Blood Count 2.84 M/uL Hemoglobin 8.4 g/dL Hematocrit 25.0 % Mean Corpuscular Volume 88.0 fL Mean Corpuscular Hemoglobin 29.6 pg Mean Corpuscular Hemoglobin Concent 33.6 g/dl RDW Standard Deviation 53.4 fL RDW Coefficient of Variation 16.8 % Platelet Count 135 K/uL Mean Platelet Volume 10.3 fL Prothrombin Time 19.9 SECONDS Prothromb Time International Ratio 1.8 Sodium Level 137 mmol/L Potassium Level 3.4 mmol/L Chloride Level 102 mmol/L Carbon Dioxide Level 28 mmol/L Anion Gap 7.0 mmol/L Blood Urea Nitrogen 27 mg/dl Creatinine 1.80 mg/dl Est Creatinine Clear Calc Drug Dose 37.4 ml/min Estimated GFR () 35.3 Estimated GFR (Non- 30.5 BUN/Creatinine Ratio 15.2 Random Glucose 139 mg/dl Calcium Level 8.7 mg/dl Phosphorus Level 3.2 mg/dl Magnesium Level 2.1 mg/dl Procalcitonin 2.10 ng/ml Random Vancomycin Level 23.0 mcg/ml Total Bilirubin 3.8 mg/dl Direct Bilirubin 3.0 mg/dl Aspartate Amino Transf (AST/SGOT) 74 U/L Alanine Aminotransferase (ALT/SGPT) 15 U/L Alkaline Phosphatase 198 U/L Total Protein 5.0 gm/dl Albumin 2.3 gm/dl Assessment and Plan Impression Patient is a 60 year old female currently admitted for R humerus fracture, s/p reverse total shoulder arthroplasty. Seen for hx of PBC, and HRS. MELD 24. She was not listed on transplant list at [facility] previously given low MELD. Was supposed to have Hepatology eval for possible liver/kidney transplant. Appt was 09/20 though she's currently admitted. At ICU for worsening respiratory status. She is currently sedated on mechanical vent. Albumin and Ursodiol DC'd by Nephro for fluid overload. She will have hemodialysis again today. Cr 1.8. Ammonia level down to <10. She had u/s abd which showed no signs of ascites to be tapped. Poor mental status likely multifactorial: decompensation from recent surgery in setting of liver cirrhosis , HRS, infectious processes. Plans - Continue current Octreotide, Midodrine - Nephrology following, appreciate recs. - Agree w infectious workup to r/o infectious process which may contribute to her depressed mental status. - Spoke w Dr. Sykes on 09/22 (Hepatology carbon dioxide operator at [facility]): May consider transfer to [facility] for liver/kidney transplant evaluation though unclear if she would be a candidate give possible infectious process and current mental status -> discussed pt's family and ICU team. Family doesn't wish to transfer pt at this time. Att add: I interviewed and examined pt, reviewed chart and labs. Mental status changes eem most likely related to HE - cont lactulose and xifaxan. Nephro following for renal failure.
[2016-09-23] MEDS: PIPERACILL/TAZOBAC IV 4.5 GM in DEXTROSE 5% 100ML IV SCH ×2 (11:55→21:13)
[2016-09-23] MEDS: PANTOprazole INJ 40 MG in SYRINGE 0 ML IV SCH (11:55)
[2016-09-23] MEDS: MICONAZOLE NITRATE POWDER 43 GM EXT SCH ×2 (11:55→21:00)
[2016-09-23] MEDS: LACTULOSE SYRUP 30 GM/45 ML UDP PO SCH ×4 (11:56→21:00)
[2016-09-23] MEDS: MIDODRINE 2.5 MG TAB PO SCH ×3 (11:56→17:34)
[2016-09-23] MEDS: RIFAXIMIN TAB 550 MG TAB PO SCH ×2 (11:57→21:17)
[2016-09-23] MEDS: TUBE FEEDING WATER FLUSH NG SCH ×3 (11:57→20:00)
[2016-09-23] MEDS: HEPARIN SOD 5000 UNIT/0.5 ML CARP SQ SCH ×2 (14:37→21:19)
[2016-09-23] MEDS: FLUCONAZOLE 200MG / NSS IV SCH (17:46)
--- NOTE | 2016-09-23 21:52 | PROGRESS NOTE ---
DATE: 09/23/2016 I am seeing Ms. Childress in followup of encephalopathy which is likely polyfactorial. She is more awake and alert today. She has received dialysis today. She opens her eyes spontaneously and to command. She follows some simple commands. Pupils are equal. I cannot visualize the optic nerves. No fixed gaze preference was noted. The patient is purposeful with her left hand, not purposeful with her right. Lower extremities, no withdrawal to pain. Reflexes diffusely brisk. Toes are upgoing. IMPRESSION: Polyfactorial encephalopathy. CT of the head showing no acute intracranial process. Current clinical situation likely a combination of hepatic and renal failure as well as prior hypotension and hypoxemia. The patient continues to look brighter daily. We will follow with you. [place]
[2016-09-24] VITALS (32 sets, daily range): BP systolic 109–138; BP diastolic 49–76; PULSE 66–82; TEMP 36.9–37.1; O2SAT 91–99
[2016-09-24] MEDS: TUBE FEEDING WATER FLUSH NG SCH ×5 (00:10→15:42)
[2016-09-24 06:02] LABS: HEMATOCRIT 24.7 % (37-47); MEAN CELL VOLUME 88.5 fL (80-100); MEAN CORPUSCULAR HEMOGLOBIN 28.7 pg (25-34); MEAN CORPUSCULAR HGB CONC 32.4 g/dl (32-36); MEAN PLATELET VOLUME 10.6 fL (7.4-10.4); PLATELET COUNT 125 K/uL (130-400); RED BLOOD COUNT 2.79 M/uL (4.2-5.4); WHITE BLOOD COUNT 17.42 K/uL (4.8-10.8)
[2016-09-24 06:04] LABS: VEN BLD GAS O2 SATURATION 78.1 %; VEN BLOOD GAS BASE EXCESS 2.2 mEq/L
[2016-09-24] MEDS: OCTREOTIDE ACETATE 100 MCG/ML VIAL IV. SCH ×2 (06:04→14:14)
[2016-09-24] MEDS: HEPARIN SOD 5000 UNIT/0.5 ML CARP SQ SCH ×2 (06:05→14:15)
--- NOTE | 2016-09-24 06:32 | Nephrology Progress Note ---
Nephrology Progress Note Date of Service: Sep 24, 2016. Subjective 60 yo female with biliary cirrhosis with carlos enrique/atn vs HRS who required intubation. on daily dialysis. pt more awake this morning and more alert. no urine output overnight. did have several bowel movements overnight. Objective Date Time Temp Pulse Resp B/P (MAP) Pulse Ox O2 Delivery O2 Flow Rate FiO2 09/24/16 06:00 82 19 127/60 (82) 97 Mechanical Ventilator 40 09/24/16 05:22 35 09/24/16 05:00 75 18 119/52 (74) 97 Mechanical Ventilator 40 09/24/16 04:00 98 Mechanical Ventilator 40 09/24/16 04:00 40 09/24/16 04:00 37.0 74 20 118/53 (74) 98 Mechanical Ventilator 40 09/24/16 03:00 74 18 114/49 (70) 99 Mechanical Ventilator 40 09/24/16 02:20 35 09/24/16 02:00 73 22 118/53 (74) 98 Mechanical Ventilator 40 09/24/16 01:00 72 18 115/53 (73) 98 Mechanical Ventilator 40 09/24/16 00:01 40 09/24/16 00:01 98 Mechanical Ventilator 40 09/24/16 00:00 36.9 74 14 120/58 (78) 97 Mechanical Ventilator 40 09/23/16 23:00 72 17 127/59 (81) 99 Mechanical Ventilator 40 09/23/16 22:00 77 17 133/58 (83) 100 Mechanical Ventilator 40 09/23/16 21:45 35 09/23/16 21:00 81 28 130/61 (84) 95 CPAP 35 Mechanical Ventilator 09/23/16 20:00 35 09/23/16 20:00 37.0 76 24 135/58 (83) 95 CPAP 35 Mechanical Ventilator 09/23/16 20:00 95 CPAP 35 Mechanical Ventilator 09/23/16 19:00 76 22 126/50 (75) 94 CPAP 35 Mechanical Ventilator 09/23/16 18:51 35 09/23/16 18:00 87 25 124/62 (82) 94 Mechanical Ventilator 35 09/23/16 16:21 35 09/23/16 16:00 95 Mechanical Ventilator 35 09/23/16 16:00 35 09/23/16 16:00 36.8 74 25 123/60 (81) 96 Mechanical Ventilator 35 09/23/16 14:01 35 09/23/16 14:00 84 24 132/72 (92) 95 Mechanical Ventilator 35 09/23/16 12:34 35 09/23/16 12:10 37.0 74 124/59 (80) 09/23/16 12:00 98 Mechanical Ventilator 40 09/23/16 12:00 36.6 77 27 126/80 (95) 98 Mechanical Ventilator 40 09/23/16 12:00 40 09/23/16 11:30 78 124/72 09/23/16 11:20 40 09/23/16 11:15 68 118/67 09/23/16 11:00 72 119/62 09/23/16 10:45 72 133/69 09/23/16 10:30 70 119/56 09/23/16 10:15 73 127/56 09/23/16 10:00 77 24 113/63 (80) 96 Mechanical Ventilator 40 09/23/16 10:00 75 113/63 09/23/16 09:45 72 112/57 09/23/16 09:30 67 114/51 09/23/16 09:15 71 120/52 09/23/16 09:05 CPAP 40 Mechanical Ventilator 09/23/16 09:00 72 124/63 09/23/16 08:45 68 122/60 09/23/16 08:40 37.0 75 125/57 (79) 09/23/16 08:00 98 Mechanical Ventilator 40 09/23/16 08:00 37.0 74 20 119/49 (72) 98 Mechanical Ventilator 40 09/23/16 08:00 40 09/23/16 07:28 40 Physical Exam: General-awake Eyes-+scleral icterus ENT-mmm Neck-supple Lungs-intubated/og Heart-rrr Abdomen-bs+/soft Extremities-+1 edema in legs Neuro-awake Current Inpatient Medications Medications (Trade) Dose Ordered Sig/Michael Route Start Time Stop Time Status Last Admin Dose Admin Miconazole Nitrate (Desenex Powder) 1 appln BID EXT 09/17/16 21:00 10/17/16 20:59 09/23/16 11:55 1 APPLN Midodrine (Proamatine Tab) 5 mg TID@0800,1200,1800 PO 09/19/16 18:00 10/19/16 17:59 09/23/16 17:34 5 MG Levalbuterol (Xopenex 0.63 Mg/ 3 Ml Neb) 0.63 mg Q6H PRN INH 09/20/16 08:30 10/20/16 08:29 Pantoprazole Sodium 40 mg/ Syringe 10 ml @ 5 mls/min DAILY IV 09/21/16 09:00 10/21/16 08:59 09/23/16 11:55 5 MLS/MIN Piperacillin Sod/ Tazobactam Sod (Consult) 1 ea UD PRN N/A 09/20/16 21:15 10/20/16 21:14 Vancomycin HCl (Consult) 1 ea UD PRN N/A 09/20/16 21:45 10/20/16 21:44 Midazolam HCl (Versed Inj) 2.5 mg Q1H PRN IV 09/20/16 21:45 10/20/16 21:44 Future Hold 09/21/16 04:13 2.5 MG Fentanyl Citrate (Fentanyl Inj) 50 mcg Q1H PRN IV 09/20/16 21:45 10/04/16 21:44 Future Hold 09/21/16 04:14 50 MCG Piperacillin Sod/ Tazobactam Sod 4.5 gm/Dextrose 120 ml @ 30 mls/hr Q12H IV 09/21/16 20:00 09/27/16 19:59 09/23/16 21:13 30 MLS/HR Octreotide Acetate (Sandostatin Inj) 100 mcg Q8 IV. 09/22/16 06:00 10/19/16 21:59 09/24/16 06:04 100 MCG Rifaximin (Xifaxan Tab) 550 mg BID PO 09/22/16 21:00 10/22/16 20:59 09/23/16 21:17 550 MG Lactulose (Chronulac Syrup) 30 gm QID PRN PO 09/22/16 10:30 10/23/16 10:29 09/22/16 11:31 30 GM Lactulose (Chronulac Syrup) 30 gm QID PO 09/23/16 09:00 10/23/16 08:59 09/23/16 17:34 30 GM Enteral Nutritional Formula (Novasource Renal) 1,000 ml UD PRN OG 09/23/16 09:00 10/23/16 08:59 09/23/16 12:00 1,000 ML Methylprednisolone Sodium Succinate 20 mg/Syringe 0.32 ml @ 1.5 mls/min DAILY IV 09/24/16 09:00 09/27/16 08:59 Heparin Sodium (Porcine) (Heparin Sq 5000 Unit/0.5ml) 5,000 unit Q8 SQ 09/23/16 14:00 10/23/16 13:59 09/24/16 06:05 5,000 UNIT Multivitamins Therapeutic (Cerovite Liquid) 15 ml QAM PO 09/24/16 09:00 10/24/16 08:59 Sterile Water (Tube Feeding Water Flush) 1 ea Q4 NG 09/23/16 12:00 10/23/16 11:59 09/24/16 04:15 1 EA Fluconazole/ Sodium Chloride 200 mg/Prmx 100 ml @ 100 mls/hr DAILY@1800 IV 09/23/16 18:00 09/30/16 17:59 09/23/16 17:46 100 MLS/HR Last 24 Hours Test 09/23/16 07:28 09/23/16 11:49 09/23/16 17:38 09/23/16 23:58 Total Bilirubin 3.8 mg/dl Direct Bilirubin 3.0 mg/dl Aspartate Amino Transf (AST/SGOT) 74 U/L Alanine Aminotransferase (ALT/SGPT) 15 U/L Alkaline Phosphatase 198 U/L Total Protein 5.0 gm/dl Albumin 2.3 gm/dl Bedside Glucose 88 mg/dl 175 mg/dl 136 mg/dl Test 09/24/16 05:49 09/24/16 05:51 White Blood Count 17.42 K/uL Red Blood Count 2.79 M/uL Hemoglobin 8.0 g/dL Hematocrit 24.7 % Mean Corpuscular Volume 88.5 fL Mean Corpuscular Hemoglobin 28.7 pg Mean Corpuscular Hemoglobin Concent 32.4 g/dl RDW Standard Deviation 54.5 fL RDW Coefficient of Variation 17.5 % Platelet Count 125 K/uL Mean Platelet Volume 10.6 fL Venous Blood pH 7.41 Venous Blood Partial Pressure CO2 43 mmHg Venous Blood Partial Pressure O2 46 mmHg Venous Blood HCO3 27 mmol/L Venous Blood Oxygen Saturation 78.1 % Venous Blood Base Excess 2.2 mEq/L Bedside Glucose 120 mg/dl Assessment & Plan carlos enrique-atn vs HRS and dialyzing to help with fluid overload and clearance of toxins. pt appears more awake today and volume status has improved. minimal urine output. would like to tentatively plan tunneled line on tuesday if possible. consulting Dr. Rouse. Spoke to yesterday afternoon who simply said-"do what you have to do". He appears agreeable with the plan. Ideally would be nice to have picc line and tunneled line next week. attempt at picc line initially was unsuccessful however edema in arm much improved so hopefully will be successful. dialysis today. will re-evaluate tomorrow to decide whether she needs dialysis again tomorrow or not. still CARLOS ENRIQUE diagnosis and once volume status re-equilibrated, will see if urination starts to improve. for now, continue to diurese to help optimize lungs to help with eventual extubation. would like to continue midodrine and octreotide for now.
[2016-09-24 06:36] LABS: BUN/CREATININE RATIO 12.2 (10-20); CALCIUM 8.6 mg/dl (8.5-10.1); CREATININE 1.8 mg/dl (0.60-1.20); POTASSIUM 3.2 mmol/L (3.5-5.1)
--- NOTE | 2016-09-24 07:03 | Orthopedic Progress Note ---
Orthopedic Progress Note Date of Service Sep 24, 2016. Subjective Post OP Day: 6 Additional Notes: Patient unable to communicate due to intubation. Patient started moving her eyes upon entrance into the room. Objective capillary refill less than 2 sec., dressing C/D/I (small amount of bloody drainage in the windown) Patient was able to open eyes this morning upon saying her name and walking into the room. She also moved her head briefly to yes and no questions. She did move her left arm slightly. She was able to give a weak squeeze of her right and left fingers. Right shoulder dressing shows some bloody drainage in the window which should be able to be removed tomorrow. Right elbow is in a waffle dressing and rested comfortably. She was unable to move her toes at the time of exam. Date Time Temp Pulse Resp B/P (MAP) Pulse Ox O2 Delivery O2 Flow Rate FiO2 09/24/16 06:00 82 19 127/60 (82) 97 Mechanical Ventilator 40 09/24/16 05:22 35 09/24/16 05:00 75 18 119/52 (74) 97 Mechanical Ventilator 40 09/24/16 04:00 98 Mechanical Ventilator 40 09/24/16 04:00 40 09/24/16 04:00 37.0 74 20 118/53 (74) 98 Mechanical Ventilator 40 09/24/16 03:00 74 18 114/49 (70) 99 Mechanical Ventilator 40 09/24/16 02:20 35 09/24/16 02:00 73 22 118/53 (74) 98 Mechanical Ventilator 40 09/24/16 01:00 72 18 115/53 (73) 98 Mechanical Ventilator 40 09/24/16 00:01 40 09/24/16 00:01 98 Mechanical Ventilator 40 09/24/16 00:00 36.9 74 14 120/58 (78) 97 Mechanical Ventilator 40 09/23/16 23:00 72 17 127/59 (81) 99 Mechanical Ventilator 40 09/23/16 22:00 77 17 133/58 (83) 100 Mechanical Ventilator 40 09/23/16 21:45 35 09/23/16 21:00 81 28 130/61 (84) 95 CPAP 35 Mechanical Ventilator 09/23/16 20:00 35 09/23/16 20:00 37.0 76 24 135/58 (83) 95 CPAP 35 Mechanical Ventilator 09/23/16 20:00 95 CPAP 35 Mechanical Ventilator 09/23/16 19:00 76 22 126/50 (75) 94 CPAP 35 Mechanical Ventilator 09/23/16 18:51 35 09/23/16 18:00 87 25 124/62 (82) 94 Mechanical Ventilator 35 09/23/16 16:21 35 09/23/16 16:00 95 Mechanical Ventilator 35 09/23/16 16:00 35 09/23/16 16:00 36.8 74 25 123/60 (81) 96 Mechanical Ventilator 35 09/23/16 14:01 35 09/23/16 14:00 84 24 132/72 (92) 95 Mechanical Ventilator 35 09/23/16 12:34 35 09/23/16 12:10 37.0 74 124/59 (80) 09/23/16 12:00 98 Mechanical Ventilator 40 09/23/16 12:00 36.6 77 27 126/80 (95) 98 Mechanical Ventilator 40 09/23/16 12:00 40 09/23/16 11:30 78 124/72 09/23/16 11:20 40 09/23/16 11:15 68 118/67 09/23/16 11:00 72 119/62 09/23/16 10:45 72 133/69 09/23/16 10:30 70 119/56 09/23/16 10:15 73 127/56 09/23/16 10:00 77 24 113/63 (80) 96 Mechanical Ventilator 40 09/23/16 10:00 75 113/63 09/23/16 09:45 72 112/57 09/23/16 09:30 67 114/51 09/23/16 09:15 71 120/52 09/23/16 09:05 CPAP 40 Mechanical Ventilator 09/23/16 09:00 72 124/63 09/23/16 08:45 68 122/60 09/23/16 08:40 37.0 75 125/57 (79) 09/23/16 08:00 98 Mechanical Ventilator 40 09/23/16 08:00 37.0 74 20 119/49 (72) 98 Mechanical Ventilator 40 09/23/16 08:00 40 09/23/16 07:28 40 Laboratory Results 24 Hours: Test 09/24/16 05:49 Hematocrit 24.7 % Hemoglobin 8.0 g/dL Assessment & Plan Assessment: POD #6 s/p Right reverse total shoulder arthroplasty, removal of deep hardware right proximal humerus, debridement of olecranon ulcer right elbow Patient was intubated due to respiratory failure. 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 - Fentanyl and Versed discontinued at 09/21/16 @ 04:51, slow improvement in RASS since - EEG shows moderate encephalopathy of nonspecific etiology. Neurology consulted - Continue to monitor for changes in RASS CV - SBP noted to be 90-120's. Levophed ordered PRN during dialysis if needed only. - Echo bubble study confirmed no hepatopulmonary shunt Resp - Intubated with ventilator support: CPAP, patient breathing 22 breaths/min, PSV 12, PEEP 8, FiO2 40, End tidal CO2 36 - Arm restraints ordered for the day (*of note, were also ordered yesterday under the order of "restrict arm movement") GI/Nutrition - Has hepatorenal syndrome. Patient previously on transplant list but was too well. Current MELD score 30. GI consulted. - Discussion of transfer to [facility] for transplant evaluation was had, family has declined for now, will reconsider if patient continues to improve - Ammonia previously elevated, now normal. Trend ammonia. Continue lactulose QID. Start rifaximin. Continue midodrine and octreotide for now. - Continue to trend LFTS - GI prophylaxis: IV pantoprazole 40mg BID - Enteral nutrition switch to Nepro - trickle feeds + added multivitamin Renal/Fluid - S/p third dialysis (total fluid removal to date 7.7L). Creatinine stable. - Limiting fluids secondary to fluid overload. Trending BMP - Continue strict I&O's - discontinue urine Esposito given low urine output ID - Afebrile with increasing leukocytosis. Procalcitonin unchanged - CXR shows slight progression in lung opacities, and small bilateral pleural effusions - Bronchoscopy samples positive for kristen albicans. Cultures pending - Continue coverage with Zosyn and Vancomycin (Day 4/7) + start IV fluconazole Endo - Continue methylprednisone 20mg BID x 5 days, then stop - Continue monitoring blood glucose Heme - Leukocytosis increased, anemia and thrombocytopenia unchanged from day prior. Continue to monitor. - DVT prophylaxis with heparin SC 5000 units BID since no longer azotemic. Access - 2x peripheral IV, 1x central trialysis catheter Consults & Procedures Consultants: Gastroenterology: Dr. Noel Neurology: Dr. Dunn Nephrology: [facility] Orthopedics: Dr. Fontenot Wound care: Dr. Yeung Discharge Planning Discharge Planning: uncertain
--- NOTE | 2016-09-24 08:32 | Critical Care Progress Note ---
Critical Care Progress Note Date of Service Sep 24, 2016. ICU Day ICU Day Number: [address] Tong Subjective Patient remains intubated, but is now more responsive to stimuli and able to answer simple questions by head movement, but has waxing and waning attention span, so significant repetition is required. She currently denies pain, and but did not answer any further questions. Unable to attain further ROS Objective GENERAL: Responsive, lying in bed, intubated and ventilated HEAD: Normocephalic, atraumatic. EYES: Normal sclera and conjunctiva. No tracking noted today, does not follow commands. PERRL. Scleral and conjunctiva normal. Good eyelid muscle control NECK: Supple, no adenopathy. Able to hold neck up for >30sec. LUNGS: Normal chest wall mechanics, poor air entry. No crackles, or wheezes HEART: S1 and S2 normal, no murmurs appreciated ABDOMEN: abdomen soft - no ascites appreciated, bowel sounds present, no masses , no rebound or guarding. SKIN: Warm, pink, dry. No rashes. Bruising on left arm from previous trial of PICC insertion. Evidence of venostasis on lower limbs. Bruising seen on back of neck likely from attempts to move/adjust patient position, and at left wrist around restraint. Restraint is noted to be loose enough to slip a finger through. EXTREMITIES: Bandage on right arm from shoulder surgery. Bilateral lower extremity edema NEURO: Responsive to voice -- opens eyes. Pupils equal. Some neck movement, including ability to nod/shake her head. Preference to lie head to her left, but no torticollis or nuchal rigidity present. Current SOFA Score SOFA Score Response (Comments) Value Platelets (x10) < 150 1 Bilirubin (mg/dL) 2.0 - 5.9 2 York Coma Score 6 - 9 3 Level of Hypotension No Hypotension 0 Creatinine (mg/dL) 1.2 - 1.9 1 Total 7 Assessment & Plan 60 year old female post op from orthopedic surgery with altered mental status secondary to hepatorenal syndrome, requiring intubation for impending hypoxic and hypercapnic respiratory failure Neuro - CAM positive. - Fentanyl and Versed discontinued at 09/21/16 @ 04:51, slow improvement in RASS since. Now responding to questions via head nodding, still has waxing and waning alertness - EEG shows moderate encephalopathy of nonspecific etiology. Neurology consulted - Continue to monitor for changes in RASS CV - SBP noted to be 110-130's. Levophed ordered PRN during dialysis if needed only , but thus far, patient has not required it - HR stable in 70s-80s Resp - Intubated with ventilator support: CPAP yesterday, A/C overnight and CPAP resumed this morning: patient breathing 21 breaths/min, PSV 10, PEEP 5, FiO2 35 - plans for trial of extubation today - Arm restraints ordered GI/Nutrition - Has hepatorenal syndrome. Patient previously on transplant list but was too well. Current MELD score 30. GI consulted. - Discussion of transfer to [facility] for transplant evaluation was had, family has declined for now, will reconsider if patient continues to improve - Ammonia previously elevated, now normal. Trend ammonia. Continue lactulose QID. Start rifaximin. Continue midodrine and octreotide for now, as per renal. - Continue to trend LFTS every other day - GI prophylaxis: IV pantoprazole 40mg BID - Enteral nutrition switch to Nepro + added multivitamin and vitamin K - trickle feeds for now, with plans to progress Renal/Fluid - Currently undergoing fourth dialysis for ultrafiltration and toxin removal. Creatinine elevated but stable. - Limiting fluids secondary to fluid overload. Trending BMP - Plans for removal of trialysis today if successful PICC/midline insertion. Patient for tunneled catheter insertion on 09/27/16. Vascular consulted. - Continue strict I&O's - Phosphorus low, supplemented with Neutraphos today. Recheck tomorrow ID - Afebrile with increased leukocytosis. - CXR shows slight progression in lung opacities, and small bilateral pleural effusions - Bronchoscopy samples positive for kristen albicans. Cultures pending - Continue coverage with Zosyn and Vancomycin (Day 5/7) + IV fluconazole (Day 2/ 7) Endo - Continue methylprednisone 20mg BID x 5 days, then stop 09/27/16 - Continue monitoring blood glucose. Recent levels have been within acceptable ranges. Heme - Leukocytosis increased, anemia and thrombocytopenia unchanged from day prior. Continue to monitor. - DVT prophylaxis with heparin SC 5000 units BID since no longer azotemic. Access - 2x peripheral IV, 1x central trialysis catheter Resident Physician Supervision Note: Dr. Weaver was resident physician during care of patient. I separately evaluated patient and did history and exam. I discussed the case with the resident and generally agree with the findings and plan. Patient improved mentally today. Most alert I have seen her. TOlerating PSV 10/12 @ 30% FiO2. extubation parameters Vt 450-500, Nif -25-30, RSBI 65, + cough leak, minimal secretions. Will extubate to BiPAP and wean to room air. Still at risk for re-intubation if mental status decompensates. Place Midline for vascular access, will coordinate with Vascular regarding perma-cath placement and dialysis needs. I have personally spent 60 minutes of critical care time in the direct management of this patient. This is a life/limb threatening event. This includes time spent evaluating patient, direct bedside care, chart review, placing orders, interpretation of diagnostic studies, discussion with consultants, patient, and family members, as well as other required patient management activities. This time is exclusive of all separately billable procedures, and teaching time and separate from and in addition to any other critical care service time. Documented By: Toi Tong DO SAUK-SUIATTLE II Score Date Score Was Generated: Sep 24, 2016 Consults & Procedures Consultants: Gastroenterology: Dr. Noel Neurology: Dr. Dunn Nephrology: [place] Orthopedics: Dr. Fontenot Vascular: Dr. Rouse Wound care: Dr. Yeung Procedures: 09/17/16: Right reverse total shoulder arthroplasty, removal of deep hardware right proximal humerus, debridement of olecranon ulcer right elbow 09/20/16: Trialysis central catheter inserted 09/20/16: Echo 09/20/16: Intubated 09/21/16: Bronchoscopy Data Medications: Current Inpatient Medications Medications (Trade) Dose Ordered Sig/Michael Route Start Time Stop Time Status Last Admin Dose Admin Miconazole Nitrate (Desenex Powder) 1 appln BID EXT 09/17/16 21:00 10/17/16 20:59 09/23/16 11:55 1 APPLN Midodrine (Proamatine Tab) 5 mg TID@0800,1200,1800 PO 09/19/16 18:00 10/19/16 17:59 09/23/16 17:34 5 MG Levalbuterol (Xopenex 0.63 Mg/ 3 Ml Neb) 0.63 mg Q6H PRN INH 09/20/16 08:30 10/20/16 08:29 Pantoprazole Sodium 40 mg/ Syringe 10 ml @ 5 mls/min DAILY IV 09/21/16 09:00 10/21/16 08:59 09/23/16 11:55 5 MLS/MIN Piperacillin Sod/ Tazobactam Sod (Consult) 1 ea UD PRN N/A 09/20/16 21:15 10/20/16 21:14 Vancomycin HCl (Consult) 1 ea UD PRN N/A 09/20/16 21:45 10/20/16 21:44 Midazolam HCl (Versed Inj) 2.5 mg Q1H PRN IV 09/20/16 21:45 10/20/16 21:44 Future Hold 09/21/16 04:13 2.5 MG Fentanyl Citrate (Fentanyl Inj) 50 mcg Q1H PRN IV 09/20/16 21:45 10/04/16 21:44 Future Hold 09/21/16 04:14 50 MCG Piperacillin Sod/ Tazobactam Sod 4.5 gm/Dextrose 120 ml @ 30 mls/hr Q12H IV 09/21/16 20:00 09/27/16 19:59 09/23/16 21:13 30 MLS/HR Octreotide Acetate (Sandostatin Inj) 100 mcg Q8 IV. 09/22/16 06:00 10/19/16 21:59 09/24/16 06:04 100 MCG Rifaximin (Xifaxan Tab) 550 mg BID PO 09/22/16 21:00 10/22/16 20:59 09/23/16 21:17 550 MG Lactulose (Chronulac Syrup) 30 gm QID PRN PO 09/22/16 10:30 10/23/16 10:29 09/22/16 11:31 30 GM Lactulose (Chronulac Syrup) 30 gm QID PO 09/23/16 09:00 10/23/16 08:59 09/23/16 17:34 30 GM Enteral Nutritional Formula (Novasource Renal) 1,000 ml UD PRN OG 09/23/16 09:00 10/23/16 08:59 09/23/16 12:00 1,000 ML Methylprednisolone Sodium Succinate 20 mg/Syringe 0.32 ml @ 1.5 mls/min DAILY IV 09/24/16 09:00 09/27/16 08:59 Heparin Sodium (Porcine) (Heparin Sq 5000 Unit/0.5ml) 5,000 unit Q8 SQ 09/23/16 14:00 10/23/16 13:59 09/24/16 06:05 5,000 UNIT Multivitamins Therapeutic (Cerovite Liquid) 15 ml QAM PO 09/24/16 09:00 10/24/16 08:59 Sterile Water (Tube Feeding Water Flush) 1 ea Q4 NG 09/23/16 12:00 10/23/16 11:59 09/24/16 04:15 1 EA Fluconazole/ Sodium Chloride 200 mg/Prmx 100 ml @ 100 mls/hr DAILY@1800 IV 09/23/16 18:00 09/30/16 17:59 09/23/16 17:46 100 MLS/HR Vital Signs: Date Time Temp Pulse Resp B/P (MAP) Pulse Ox O2 Delivery O2 Flow Rate FiO2 09/24/16 07:46 35 09/24/16 06:00 82 19 127/60 (82) 97 Mechanical Ventilator 40 09/24/16 05:22 35 09/24/16 05:00 75 18 119/52 (74) 97 Mechanical Ventilator 40 09/24/16 04:00 98 Mechanical Ventilator 40 09/24/16 04:00 40 09/24/16 04:00 37.0 74 20 118/53 (74) 98 Mechanical Ventilator 40 09/24/16 03:00 74 18 114/49 (70) 99 Mechanical Ventilator 40 09/24/16 02:20 35 09/24/16 02:00 73 22 118/53 (74) 98 Mechanical Ventilator 40 09/24/16 01:00 72 18 115/53 (73) 98 Mechanical Ventilator 40 09/24/16 00:01 40 09/24/16 00:01 98 Mechanical Ventilator 40 09/24/16 00:00 36.9 74 14 120/58 (78) 97 Mechanical Ventilator 40 09/23/16 23:00 72 17 127/59 (81) 99 Mechanical Ventilator 40 09/23/16 22:00 77 17 133/58 (83) 100 Mechanical Ventilator 40 09/23/16 21:45 35 09/23/16 21:00 81 28 130/61 (84) 95 CPAP 35 Mechanical Ventilator 09/23/16 20:00 35 09/23/16 20:00 37.0 76 24 135/58 (83) 95 CPAP 35 Mechanical Ventilator 09/23/16 20:00 95 CPAP 35 Mechanical Ventilator 09/23/16 19:00 76 22 126/50 (75) 94 CPAP 35 Mechanical Ventilator 09/23/16 18:51 35 09/23/16 18:00 87 25 124/62 (82) 94 Mechanical Ventilator 35 09/23/16 16:21 35 09/23/16 16:00 95 Mechanical Ventilator 35 09/23/16 16:00 35 09/23/16 16:00 36.8 74 25 123/60 (81) 96 Mechanical Ventilator 35 09/23/16 14:01 35 09/23/16 14:00 84 24 132/72 (92) 95 Mechanical Ventilator 35 09/23/16 12:34 35 09/23/16 12:10 37.0 74 124/59 (80) 09/23/16 12:00 98 Mechanical Ventilator 40 09/23/16 12:00 36.6 77 27 126/80 (95) 98 Mechanical Ventilator 40 09/23/16 12:00 40 09/23/16 11:30 78 124/72 09/23/16 11:20 40 09/23/16 11:15 68 118/67 09/23/16 11:00 72 119/62 09/23/16 10:45 72 133/69 09/23/16 10:30 70 119/56 09/23/16 10:15 73 127/56 09/23/16 10:00 77 24 113/63 (80) 96 Mechanical Ventilator 40 09/23/16 10:00 75 113/63 09/23/16 09:45 72 112/57 09/23/16 09:30 67 114/51 09/23/16 09:15 71 120/52 09/23/16 09:05 CPAP 40 Mechanical Ventilator 09/23/16 09:00 72 124/63 09/23/16 08:45 68 122/60 09/23/16 08:40 37.0 75 125/57 (79) Laboratory Results: Last 24 Hours Test 09/23/16 11:49 09/23/16 17:38 09/23/16 23:58 09/24/16 05:49 Bedside Glucose 88 mg/dl 175 mg/dl 136 mg/dl White Blood Count 17.42 K/uL Red Blood Count 2.79 M/uL Hemoglobin 8.0 g/dL Hematocrit 24.7 % Mean Corpuscular Volume 88.5 fL Mean Corpuscular Hemoglobin 28.7 pg Mean Corpuscular Hemoglobin Concent 32.4 g/dl RDW Standard Deviation 54.5 fL RDW Coefficient of Variation 17.5 % Platelet Count 125 K/uL Mean Platelet Volume 10.6 fL Venous Blood pH 7.41 Venous Blood Partial Pressure CO2 43 mmHg Venous Blood Partial Pressure O2 46 mmHg Venous Blood HCO3 27 mmol/L Venous Blood Oxygen Saturation 78.1 % Venous Blood Base Excess 2.2 mEq/L Sodium Level 141 mmol/L Potassium Level 3.2 mmol/L Chloride Level 107 mmol/L Carbon Dioxide Level 27 mmol/L Anion Gap 7.0 mmol/L Blood Urea Nitrogen 22 mg/dl Creatinine 1.80 mg/dl Est Creatinine Clear Calc Drug Dose 36.9 ml/min Estimated GFR () 35.3 Estimated GFR (Non- 30.5 BUN/Creatinine Ratio 12.2 Random Glucose 121 mg/dl Calcium Level 8.6 mg/dl Phosphorus Level 2.0 mg/dl Magnesium Level 2.0 mg/dl Random Vancomycin Level 17.1 mcg/ml Test 09/24/16 05:51 09/24/16 08:08 Bedside Glucose 120 mg/dl
[2016-09-24] MEDS: METHYLPREDNISOLONE IV 20 MG in SYRINGE 0 ML IV SCH (08:53)
[2016-09-24] MEDS: RIFAXIMIN TAB 550 MG TAB PO SCH (08:53)
[2016-09-24] MEDS: PANTOprazole INJ 40 MG in SYRINGE 0 ML IV SCH (08:53)
[2016-09-24] MEDS: MICONAZOLE NITRATE POWDER 43 GM EXT SCH (08:54)
[2016-09-24] MEDS: PIPERACILL/TAZOBAC IV 4.5 GM in DEXTROSE 5% 100ML IV SCH ×3 (08:54→12:23)
[2016-09-24] MEDS: MIDODRINE 2.5 MG TAB PO SCH ×4 (08:54→17:47)
--- NOTE | 2016-09-24 08:54 | Progress Note ---
Internal Med Progress Note Date of Service: Sep 24, 2016. Provider Documentation: SUBJECTIVE: Seen and examined at bedside. More alert, awake, tries to follow simple commands Remains Intubated Getting dialysis this morning Afebrile No family at bedside OBJECTIVE: Vital Signs-as noted below Physical Exam: General Appearance:sedated and Intubated Head: normocephalic, Atraumatic Eyes: normal inspection, icteric Neck: supple, Trachea midline Respiratory/Chest: Coarse breath sounds Cardiovascular: S1, S2, + murmur Abdomen/GI:Soft, mildly distended, Bowel sounds present Extremities/Musculoskelatal:normal inspection, no edema Neurologic/Psych:sedated and Intubated Skin: normal color, warm Lab data as noted below. ASSESSMENT & PLAN: Patient is a 60 yr female admitted for R humerus fracture, s/p reverse total shoulder arthroplasty ACUTE HYPOXIC AND HYPERCAPNIC RESPIRATORY FAILURE PULMONARY EDEMA POSSIBLE ASPIRATION PNEUMONIA Most likely secondary to volume overload from diastolic heart failure Chest x-ray shows bilateral infiltrates, probably pulmonary edema (although other processes are possible). S/P IV furosemide Dialysis for volume overload being managed by Nephrology Continue Levalbuterol neb PRN Intubated on 09/20 Vent management per ICU team S/P Bronchoscopy on 09/21 Follow up bronchial washings studies: Melissa and [employer] pending Continue : Vanco, Zosyn, Diflucan Bubble Study:no interatrial shunt and no findings to suggest hepatopulmonary shunt ECHO from 12/22/15: EF:55-59% H/O P. ATRIAL TACHYCARDIA Currently rate controlled Was on propranolol at home ENCEPHALOPATHY: Likely multifactorial: medications, hepatic encephalopathy, hypercapnia EEG: indicates moderate encephalopathy of nonspecific etiology CT head:Mild heterogeneity of the periventricular deep white matter regions possibly secondary to small vessel change Neurology following Mental status seems to be improving slowly May need MRI brain at some point if no improvement CARLOS ENRIQUE/ATN Vs HRS CKD III Cr:1.8 Ketorolac discontinued. Initially received IVFs and hydrocortisone. Appreciate Nephrology, GI help Continue midodrine, octreotide for hepatorenal syndrome. Requiring daily dialysis Planned for tunneled catheter BILIARY CIRRHOSIS Appreciate GI input continue lactulose, Rifaximin for hepatic encephalopathy. Ammonia level: 59 >>>25 >>>10 ABD USD: no ascites Continue Octreotide, Midodrine Needs to have Hepatology eval for possible liver/kidney transplant CHRONIC STEROID THERAPY Chronic prednisone therapy for chronic pericarditis. S/P IV hydrocortisone Resume PO prednisone when able S/P Right reverse total shoulder arthroplasty, removal of deep hardware right proximal humerus, debridement of olecranon ulcer right elbow POD # 7 Orthopedics following DVT Px: SCD's PROCEDURES: CT head: 1. Mild heterogeneity of the periventricular deep white matter regions possibly secondary to small vessel change. 2. Limited study technically due to patient motion. 3. Mild mucosal thickening of the mastoid air cells. 4. No evidence for acute intracranial hemorrhage. Vital Signs: Date Time Temp Pulse Resp B/P (MAP) Pulse Ox O2 Delivery O2 Flow Rate FiO2 09/24/16 08:56 75 129/59 09/24/16 08:45 37.0 75 122/62 (82) 09/24/16 07:46 35 09/24/16 06:00 82 19 127/60 (82) 97 Mechanical Ventilator 40 09/24/16 05:22 35 09/24/16 05:00 75 18 119/52 (74) 97 Mechanical Ventilator 40 09/24/16 04:00 98 Mechanical Ventilator 40 09/24/16 04:00 40 09/24/16 04:00 37.0 74 20 118/53 (74) 98 Mechanical Ventilator 40 09/24/16 03:00 74 18 114/49 (70) 99 Mechanical Ventilator 40 09/24/16 02:20 35 09/24/16 02:00 73 22 118/53 (74) 98 Mechanical Ventilator 40 09/24/16 01:00 72 18 115/53 (73) 98 Mechanical Ventilator 40 09/24/16 00:01 40 09/24/16 00:01 98 Mechanical Ventilator 40 09/24/16 00:00 36.9 74 14 120/58 (78) 97 Mechanical Ventilator 40 09/23/16 23:00 72 17 127/59 (81) 99 Mechanical Ventilator 40 09/23/16 22:00 77 17 133/58 (83) 100 Mechanical Ventilator 40 09/23/16 21:45 35 09/23/16 21:00 81 28 130/61 (84) 95 CPAP 35 Mechanical Ventilator 09/23/16 20:00 35 09/23/16 20:00 37.0 76 24 135/58 (83) 95 CPAP 35 Mechanical Ventilator 09/23/16 20:00 95 CPAP 35 Mechanical Ventilator 09/23/16 19:00 76 22 126/50 (75) 94 CPAP 35 Mechanical Ventilator 09/23/16 18:51 35 09/23/16 18:00 87 25 124/62 (82) 94 Mechanical Ventilator 35 09/23/16 16:21 35 09/23/16 16:00 95 Mechanical Ventilator 35 09/23/16 16:00 35 09/23/16 16:00 36.8 74 25 123/60 (81) 96 Mechanical Ventilator 35 09/23/16 14:01 35 09/23/16 14:00 84 24 132/72 (92) 95 Mechanical Ventilator 35 09/23/16 12:34 35 09/23/16 12:10 37.0 74 124/59 (80) 09/23/16 12:00 98 Mechanical Ventilator 40 09/23/16 12:00 36.6 77 27 126/80 (95) 98 Mechanical Ventilator 40 09/23/16 12:00 40 09/23/16 11:30 78 124/72 09/23/16 11:20 40 09/23/16 11:15 68 118/67 09/23/16 11:00 72 119/62 09/23/16 10:45 72 133/69 09/23/16 10:30 70 119/56 09/23/16 10:15 73 127/56 09/23/16 10:00 77 24 113/63 (80) 96 Mechanical Ventilator 40 09/23/16 10:00 75 113/63 09/23/16 09:45 72 112/57 09/23/16 09:30 67 114/51 Lab Results: Results Past 24 Hours Test 09/23/16 11:49 09/23/16 17:38 09/23/16 23:58 09/24/16 05:49 Range/Units Bedside Glucose 88 175 136 70-90 mg/dl White Blood Count 17.42 4.8-10.8 K/uL Red Blood Count 2.79 4.2-5.4 M/uL Hemoglobin 8.0 12.0-16.0 g/dL Hematocrit 24.7 37-47 % Mean Corpuscular Volume 88.5 80-100 fL Mean Corpuscular Hemoglobin 28.7 25-34 pg Mean Corpuscular Hemoglobin Concent 32.4 32-36 g/dl RDW Standard Deviation 54.5 36.4-46.3 fL RDW Coefficient of Variation 17.5 11.5-14.5 % Platelet Count 125 130-400 K/uL Mean Platelet Volume 10.6 7.4-10.4 fL Venous Blood pH 7.41 7.36-7.41 Venous Blood Partial Pressure CO2 43 38.0-50.0 mmHg Venous Blood Partial Pressure O2 46 mmHg Venous Blood HCO3 27 mmol/L Venous Blood Oxygen Saturation 78.1 % Venous Blood Base Excess 2.2 mEq/L Sodium Level 141 136-145 mmol/L Potassium Level 3.2 3.5-5.1 mmol/L Chloride Level 107 98-107 mmol/L Carbon Dioxide Level 27 21-32 mmol/L Anion Gap 7.0 3-11 mmol/L Blood Urea Nitrogen 22 7-18 mg/dl Creatinine 1.80 0.60-1.20 mg/dl Est Creatinine Clear Calc Drug Dose 36.9 ml/min Estimated GFR () 35.3 Estimated GFR (Non- 30.5 BUN/Creatinine Ratio 12.2 10-20 Random Glucose 121 70-99 mg/dl Calcium Level 8.6 8.5-10.1 mg/dl Phosphorus Level 2.0 2.5-4.9 mg/dl Magnesium Level 2.0 1.8-2.4 mg/dl Random Vancomycin Level 17.1 mcg/ml Test 09/24/16 05:51 09/24/16 08:08 Range/Units Bedside Glucose 120 70-90 mg/dl Total Bilirubin 3.7 0.2-1 mg/dl Direct Bilirubin 2.8 0-0.2 mg/dl Aspartate Amino Transf (AST/SGOT) 79 15-37 U/L Alanine Aminotransferase (ALT/SGPT) 24 12-78 U/L Alkaline Phosphatase 229 45-117 U/L Total Protein 4.9 6.4-8.2 gm/dl Albumin 2.2 3.4-5.0 gm/dl
[2016-09-24] MEDS: LACTULOSE SYRUP 30 GM/45 ML UDP PO SCH ×4 (08:55→21:00)
[2016-09-24] MEDS ORDERED: MULTIVITAMINS W/MINERALS 15ML UDP PO SCH (09:00)
[2016-09-24] MEDS ORDERED: POT PHOSPHATE MONOBASIC W/ SOD TAB PO ONE (10:15)
--- NOTE | 2016-09-24 10:41 | Gastroenterology Progress Note ---
Progress Note Date of Service: Sep 24, 2016 Subjective Pt evaluation today including: conversation w/ patient, physical exam, chart review, lab review, review of studies, conversation w/ analysis consultant (discussed with Dr. Mendoza), review of inpatient medication list Ms. Childress is a 60 yr old female with PBC admitted on 09/22 for HRS in the setting of fractured humerus S/P reverse total shoulder arthroplasty. MELD 24. She was not listed on transplant list at [facility] previously given low MELD. Was supposed to have Hepatology eval for possible liver/kidney transplant. Appt was 09/20 though she's currently admitted. Today, TB 3.7, down from 4.8. WBC 17. INR 1.8 Cr 1.8, receiving dialysis. Continues with mechanical ventilation. Continues on midodrin, lactulose, rifaxamin via OG. Zosyn IV, Steroids IV. Per nursing pt more alert today, but still unable to get ROS from pt. 4 large diarrhea in past 24 hr per nursing. Review of Systems Constitutional: No fever Respiratory: No cough Cardiac: No chest pain Abdomen: No pain Medications Current Inpatient Medications Medications (Trade) Dose Ordered Sig/Michael Route Start Time Stop Time Status Last Admin Dose Admin Miconazole Nitrate (Desenex Powder) 1 appln BID EXT 09/17/16 21:00 10/17/16 20:59 09/24/16 08:54 1 APPLN Midodrine (Proamatine Tab) 5 mg TID@0800,1200,1800 PO 09/19/16 18:00 10/19/16 17:59 09/24/16 08:54 5 MG Levalbuterol (Xopenex 0.63 Mg/ 3 Ml Neb) 0.63 mg Q6H PRN INH 09/20/16 08:30 10/20/16 08:29 Pantoprazole Sodium 40 mg/ Syringe 10 ml @ 5 mls/min DAILY IV 09/21/16 09:00 10/21/16 08:59 09/24/16 08:53 5 MLS/MIN Piperacillin Sod/ Tazobactam Sod (Consult) 1 ea UD PRN N/A 09/20/16 21:15 10/20/16 21:14 Vancomycin HCl (Consult) 1 ea UD PRN N/A 09/20/16 21:45 10/20/16 21:44 Midazolam HCl (Versed Inj) 2.5 mg Q1H PRN IV 09/20/16 21:45 10/20/16 21:44 Future Hold 09/21/16 04:13 2.5 MG Fentanyl Citrate (Fentanyl Inj) 50 mcg Q1H PRN IV 09/20/16 21:45 10/04/16 21:44 Future Hold 09/21/16 04:14 50 MCG Piperacillin Sod/ Tazobactam Sod 4.5 gm/Dextrose 120 ml @ 30 mls/hr Q12H IV 09/21/16 20:00 09/27/16 19:59 09/24/16 08:54 30 MLS/HR Octreotide Acetate (Sandostatin Inj) 100 mcg Q8 IV. 09/22/16 06:00 10/19/16 21:59 09/24/16 06:04 100 MCG Rifaximin (Xifaxan Tab) 550 mg BID PO 09/22/16 21:00 10/22/16 20:59 09/24/16 08:53 550 MG Lactulose (Chronulac Syrup) 30 gm QID PRN PO 09/22/16 10:30 10/23/16 10:29 09/22/16 11:31 30 GM Lactulose (Chronulac Syrup) 30 gm QID PO 09/23/16 09:00 10/23/16 08:59 09/23/16 17:34 30 GM Enteral Nutritional Formula (Novasource Renal) 1,000 ml UD PRN OG 09/23/16 09:00 10/23/16 08:59 09/23/16 12:00 1,000 ML Methylprednisolone Sodium Succinate 20 mg/Syringe 0.32 ml @ 1.5 mls/min DAILY IV 09/24/16 09:00 09/27/16 08:59 09/24/16 08:53 1.5 MLS/MIN Heparin Sodium (Porcine) (Heparin Sq 5000 Unit/0.5ml) 5,000 unit Q8 SQ 09/23/16 14:00 10/23/16 13:59 09/24/16 06:05 5,000 UNIT Multivitamins Therapeutic (Cerovite Liquid) 15 ml QAM PO 09/24/16 09:00 10/24/16 08:59 09/24/16 08:53 15 ML Sterile Water (Tube Feeding Water Flush) 1 ea Q4 NG 09/23/16 12:00 10/23/16 11:59 09/24/16 04:15 1 EA Fluconazole/ Sodium Chloride 200 mg/Prmx 100 ml @ 100 mls/hr DAILY@1800 IV 09/23/16 18:00 09/30/16 17:59 09/23/16 17:46 100 MLS/HR Phytonadione (Mephyton Tab) 5 mg DAILY PO 09/24/16 10:30 10/24/16 10:29 Objective Vital Signs Date Time Temp Pulse Resp B/P (MAP) Pulse Ox O2 Delivery O2 Flow Rate FiO2 09/24/16 10:15 73 128/64 09/24/16 10:00 73 126/57 09/24/16 09:45 74 128/65 09/24/16 09:30 74 114/56 09/24/16 09:15 79 135/61 09/24/16 08:56 75 129/59 09/24/16 08:55 30 09/24/16 08:45 37.0 75 122/62 (82) 09/24/16 07:46 35 09/24/16 06:00 82 19 127/60 (82) 97 Mechanical Ventilator 40 09/24/16 05:22 35 09/24/16 05:00 75 18 119/52 (74) 97 Mechanical Ventilator 40 09/24/16 04:00 98 Mechanical Ventilator 40 09/24/16 04:00 40 09/24/16 04:00 37.0 74 20 118/53 (74) 98 Mechanical Ventilator 40 09/24/16 03:00 74 18 114/49 (70) 99 Mechanical Ventilator 40 09/24/16 02:20 35 09/24/16 02:00 73 22 118/53 (74) 98 Mechanical Ventilator 40 09/24/16 01:00 72 18 115/53 (73) 98 Mechanical Ventilator 40 09/24/16 00:01 40 09/24/16 00:01 98 Mechanical Ventilator 40 09/24/16 00:00 36.9 74 14 120/58 (78) 97 Mechanical Ventilator 40 09/23/16 23:00 72 17 127/59 (81) 99 Mechanical Ventilator 40 09/23/16 22:00 77 17 133/58 (83) 100 Mechanical Ventilator 40 09/23/16 21:45 35 09/23/16 21:00 81 28 130/61 (84) 95 CPAP 35 Mechanical Ventilator 09/23/16 20:00 35 09/23/16 20:00 37.0 76 24 135/58 (83) 95 CPAP 35 Mechanical Ventilator 09/23/16 20:00 95 CPAP 35 Mechanical Ventilator 09/23/16 19:00 76 22 126/50 (75) 94 CPAP 35 Mechanical Ventilator 09/23/16 18:51 35 09/23/16 18:00 87 25 124/62 (82) 94 Mechanical Ventilator 35 09/23/16 16:21 35 09/23/16 16:00 95 Mechanical Ventilator 35 09/23/16 16:00 35 09/23/16 16:00 36.8 74 25 123/60 (81) 96 Mechanical Ventilator 35 09/23/16 14:01 35 09/23/16 14:00 84 24 132/72 (92) 95 Mechanical Ventilator 35 09/23/16 12:34 35 09/23/16 12:10 37.0 74 124/59 (80) 09/23/16 12:00 98 Mechanical Ventilator 40 09/23/16 12:00 36.6 77 27 126/80 (95) 98 Mechanical Ventilator 40 09/23/16 12:00 40 09/23/16 11:30 78 124/72 09/23/16 11:20 40 09/23/16 11:15 68 118/67 09/23/16 11:00 72 119/62 09/23/16 10:45 72 133/69 Physical Exam General Appearance: no apparent distress Neck: no JVD Respiratory/Chest: + decreased breath sounds (both bases), + pertinent finding (ventilated) Cardiovascular: no murmur Abdomen: non tender, soft Extremities: non-tender Neurologic/Psych: + pertinent finding (see HPI) Skin: + jaundice (minimal) Laboratory Results Last 24 Hours Test 09/23/16 11:49 09/23/16 17:38 09/23/16 23:58 09/24/16 05:49 Bedside Glucose 88 mg/dl 175 mg/dl 136 mg/dl White Blood Count 17.42 K/uL Red Blood Count 2.79 M/uL Hemoglobin 8.0 g/dL Hematocrit 24.7 % Mean Corpuscular Volume 88.5 fL Mean Corpuscular Hemoglobin 28.7 pg Mean Corpuscular Hemoglobin Concent 32.4 g/dl RDW Standard Deviation 54.5 fL RDW Coefficient of Variation 17.5 % Platelet Count 125 K/uL Mean Platelet Volume 10.6 fL Venous Blood pH 7.41 Venous Blood Partial Pressure CO2 43 mmHg Venous Blood Partial Pressure O2 46 mmHg Venous Blood HCO3 27 mmol/L Venous Blood Oxygen Saturation 78.1 % Venous Blood Base Excess 2.2 mEq/L Sodium Level 141 mmol/L Potassium Level 3.2 mmol/L Chloride Level 107 mmol/L Carbon Dioxide Level 27 mmol/L Anion Gap 7.0 mmol/L Blood Urea Nitrogen 22 mg/dl Creatinine 1.80 mg/dl Est Creatinine Clear Calc Drug Dose 36.9 ml/min Estimated GFR () 35.3 Estimated GFR (Non- 30.5 BUN/Creatinine Ratio 12.2 Random Glucose 121 mg/dl Calcium Level 8.6 mg/dl Phosphorus Level 2.0 mg/dl Magnesium Level 2.0 mg/dl Random Vancomycin Level 17.1 mcg/ml Test 09/24/16 05:51 09/24/16 08:08 Bedside Glucose 120 mg/dl Total Bilirubin 3.7 mg/dl Direct Bilirubin 2.8 mg/dl Aspartate Amino Transf (AST/SGOT) 79 U/L Alanine Aminotransferase (ALT/SGPT) 24 U/L Alkaline Phosphatase 229 U/L Total Protein 4.9 gm/dl Albumin 2.2 gm/dl Assessment and Plan Ms. Childress is a 60 yr old female with PBC admitted with HRS on a ventilator, washings with candidiasis. Plan: 1. Continue current Octreotide, Midodrine for HRS 2. Nephrology following, appreciate. 3. Continuing to consider transfer to [facility] for liver/kidney transplant evaluation though unclear if she would be a candidate give possible infectious process.As of yesterday family does not wish to transfer. Attg addednum: i interviewed and examined pt, reviewed chart and labs. Pt with HRS, hep enceph. Cont midodrine/octreotide, lactulose and xifaxan.
--- NOTE | 2016-09-24 10:47 | DIAGNOSTIC IMAGING REPORT ---
CHEST ONE VIEW PORTABLE HISTORY: intubated COMPARISON: Chest 09/23/2016. FINDINGS: Postoperative changes within the shoulders are again noted. There are low lung volumes. No pneumothorax. Suspect trace bilateral pleural effusions. The heart remains mildly enlarged. Endotracheal tube is approximately 11 mm from the deborah. This should be pulled back by approximately 1 cm. Nasogastric tube appears to terminate below the diaphragm. The tip is not included on this study. Right jugular central venous catheter terminates in the SVC. Improved aeration within the lungs consistent with resolving edema. Patchy right basilar density persists. IMPRESSION: 1. Endotracheal tube is approximately 11 mm from the deborah. This should be pulled back by approximately 1 cm. 2. Improved aeration within the lungs suggestive of resolving pulmonary edema. Electronically signed by: Zachary Clark M.D. 09/24/2016 10:46 AM Dictated Date/Time: 09/24/2016 10:43 AM
[2016-09-24] MEDS: PHYTONADIONE 5 MG TAB PO SCH (11:28)
--- NOTE | 2016-09-24 12:08 | Surgery Consultation ---
Consultation Date of Service Sep 24, 2016. Chief Complaint CARLOS ENRIQUE, need permcath History of Present Illness The patient is a 60 year old female with hx of biliary cirrhosis, portal HTN, chronic kidney disease, admitted after R shoulder surgery on 09/17, seen in consultation today for insertion of permcath for HD. Pt initially had been doing well post op, however, became severely fluid overloaded d/t acute kidney injury and has been intubated and undergoing hemodialysis through temporary catheter for past 4 days. Nephrology requested permcath insertion for bed bug exterminator access. Pt unable to relate hx d/t current medical status. No family present currently. Vitals Vital Signs Past 12 Hours Date Time Temp Pulse Resp B/P (MAP) Pulse Ox O2 Delivery O2 Flow Rate FiO2 09/24/16 11:45 75 134/72 09/24/16 11:30 73 125/76 09/24/16 11:15 77 138/68 09/24/16 11:00 73 129/67 09/24/16 10:45 74 124/63 09/24/16 10:30 75 121/71 09/24/16 10:15 73 128/64 09/24/16 10:00 73 126/57 09/24/16 10:00 74 20 126/57 (80) 94 CPAP 30 Mechanical Ventilator 09/24/16 09:45 74 128/65 09/24/16 09:30 74 114/56 09/24/16 09:15 79 135/61 09/24/16 08:56 75 129/59 09/24/16 08:55 30 09/24/16 08:45 37.0 75 122/62 (82) 09/24/16 08:00 75 20 122/62 (82) 96 CPAP 30 Mechanical Ventilator 09/24/16 08:00 30 09/24/16 08:00 93 CPAP 30 Mechanical Ventilator 09/24/16 07:46 35 09/24/16 06:00 82 19 127/60 (82) 97 Mechanical Ventilator 40 09/24/16 05:22 35 09/24/16 05:00 75 18 119/52 (74) 97 Mechanical Ventilator 40 09/24/16 04:00 98 Mechanical Ventilator 40 09/24/16 04:00 40 09/24/16 04:00 37.0 74 20 118/53 (74) 98 Mechanical Ventilator 40 09/24/16 03:00 74 18 114/49 (70) 99 Mechanical Ventilator 40 09/24/16 02:20 35 09/24/16 02:00 73 22 118/53 (74) 98 Mechanical Ventilator 40 09/24/16 01:00 72 18 115/53 (73) 98 Mechanical Ventilator 40 09/24/16 00:01 40 09/24/16 00:01 98 Mechanical Ventilator 40 09/24/16 00:00 36.9 74 14 120/58 (78) 97 Mechanical Ventilator 40 Allergies Coded Allergies: Budesonide (Verified Allergy, Intermediate, FACIAL SWELLING, 09/17/16) PER RECORDS Mycophenolate (Verified Allergy, Intermediate, FACIAL SWELLING, 09/17/16) PER RECORDS Latex (Verified Allergy, Mild, RASH-CONTACT, 09/17/16) Acetaminophen (Verified Adverse Reaction, Unknown, "LIVER DISEASE", ) PER RECORDS Pseudoephedrine (Verified Adverse Reaction, Unknown, TACHYCARDIA, 09/17/16) PER RECORDS Home Medications Scheduled Cholecalciferol (Vitamin D3), 1,000 UNITS PO QAM Ferrous Gluconate (Ferrous Gluconate), 324 MG PO TID Furosemide (Furosemide), 100 MG PO DAILY Gabapentin (Neurontin), 300 MG PO TID Hydroxyzine Hcl (Atarax), 50 MG PO HS Obeticholic Acid (Ocaliva), 5 MG PO TUESDAY Prednisone (Prednisone), 1 MG PO QAM Propranolol (Inderal), 10 MG PO QAM Sertraline (Zoloft), 50 MG PO QAM Spironolactone (Aldactone), 100 MG PO QAM Trazodone Hcl (Trazodone), 100 MG PO HS Ursodiol (Ursodiol), 600 MG PO BID Problem List Medical Problems: (1) Ascites (2) Biliary cirrhosis (3) Chronic pericarditis (4) Chronic steroid use (5) CKD (chronic kidney disease), stage III (6) Esophageal varices (7) Fluid overload (8) History of paroxysmal atrial tachycardia (9) History of PSVT (paroxysmal supraventricular tachycardia) (10) Osteoarthritis (11) Portal hypertension (12) Respiratory failure with hypercapnia Surgical Problems: (1) Status post cardiac catheterization (2) Status post catheter ablation for SVT (3) Status post reverse total arthroplasty of right shoulder (4) Status post transjugular intrahepatic portosystemic shunt Surgical / Medical History Hx Cardiac Surgery: Yes (ABLATION,CARDIAC CATH-NO STENT- 08/2012) Hx Abdominal Surgery: Yes (TIPS FOR LIVER-2012) Hx Cancer Surgery: No Hx Thoracic Surgery: No Hx Orthopedic: Yes (ORIF L SHOULDER-2013,ORIF L WRIST,R SHOULDER SURG) Hx Urinary Tract Surgery: No HX Other Surgery: Yes (SEE TEXT) Past Medical/Surgical History: Chronic Steroid Use, Kidney Disease, Liver Disease Family History Asthma MOTHER Diabetes mellitus FATHER Heart disease FATHER MOTHER Social History Smoking Status: Never Smoker Hx Tobacco Use In Past Year?: No Hx Alcohol Use - Type & Amnt: No Hx Substance Use -Type & Amnt: No Review of Systems Additional Comments: unable to elicit d/t current medical status Physical Exam Constitutional: General Apperance: well-nourished Level of Distress: acutely ill (on ventilator and undergoing HD presently.) Psychiatric: Memory: recent memory abnormal, remote memory abnormal (pt on ventilator, unable to elicit) Head: normocephalic, atraumatic Eyes: EOM: EOMI ENMT: hearing grossly normal Neck: supple, trachea midline Lungs: Respiratory effort: pertinent finding (pt on ventilator) Auscultation: decreased breath sounds, pertinent finding (sparse crackles) Cardiovascular: Apical Impulse: not displaced Heart Auscultation: RRR Peripheral Pulses: Pulses: full and equal, in all extremities except if noted Bruits: none appreciated Carotid Pulse: normal on the left, normal on the right Brachial Pulses: normal on the left, pertinent finding (R arm/shoulder with surgical dressing in place) Radial Pulse: normal on the left Femoral Pulse: normal on the left, normal on the right Posterior Tibialis Pulse: decreased on the left, decreased on the right Dorsalis Pedis Pulse: decreased on the left, decreased on the right Abdomen: Inspection & Palpation: soft, no tenderness, guarding & rebound Extremities: Upper Right: no cyanosis, no varicosities, edema Upper Left: no cyanosis, no edema, no varicosities, no palpable cord Lower Right: no cyanosis, no varicosities, no palpable cord, edema Lower Left: no cyanosis, no varicosities, no palpable cord, edema Additional Comments: Pt able to follow few simple commands. Assessment and Plan ASSESSMENT and PLAN: CRALOS ENRIQUE Planning on permcath insertion in OR on Tuesday by Dr Rouse. Will discuss with and obtain consent prior to procedure. Please call if needed.
[2016-09-24] MEDS ORDERED: VANCOMYCIN INJ 500 MG in SODIUM CHLORIDE 0.9% 250ML 250 ML IV ONE (12:30)
--- NOTE | 2016-09-24 12:33 | Pharmacy Progress Note ---
Pharmacy Abx Dose Short Note Date of Service Sep 24, 2016. Assessment & Plan Assessment 60 year old female initiated on Vancomycin/Zosyn IV for pulmonary source. Patient with biliary cirrhosis with CARLOS ENRIQUE/ATN vs HRS- temporary dialysis catheter placed 09/20/16. Per ICU rounds, more permanent catheter placement being considered for Tuesday. -Patient has received dialysis 09/20, 09/21, 09/22, 09/23, 09/24 MRSA swab positive. Urine culture negative. Sputum growing rare Melissa Albicans. Although melissa may not be infectious, team has decided to treat with 7 day course of Fluconazole IV. Day # 5 of antimicrobial therapy. Plan Vancomycin * Random level of 17.1 mcg/mL is therapeutic. * Re-dose patient after dialysis today. Dose will be 500 mg IV X 1. * Goal remains 15-20 mcg/mL * A random level will be ordered for: 09/25/16 with AM labs. Piperacillin/tazobactam * 4.5 g bolus administered over 30 minutes, then 4.5 g IV extended infusion every 12 hours for dialysis. * Aggressive dosing selected due to critically ill status. Fluconazole * Goal 400-800 mg IV daily * Renal reduction: 200 mg IV daily Pharmacy will continue to follow and will adjust dose/frequency as necessary. Thank you.
[2016-09-24] MEDS ORDERED: KETOROLAC TROMETHAMINE 30 MG/ML VIAL IV STA (14:46)
[2016-09-24] MEDS ORDERED: KETOROLAC TROMETHAMINE 30 MG/ML VIAL ONE (14:50)
[2016-09-24] MEDS ORDERED: NURSING VERBAL MED ORDER ONE (15:45)
[2016-09-24] MEDS: FLUCONAZOLE 200MG / NSS IV SCH (17:43)
[2016-09-24 17:45] LABS: IPAP 7; ISTAT ALLEN TEST Pass; ISTAT ARTERIAL BLOOD GAS HCO3 25 meq/L (19-24); ISTAT ARTERIAL BLOOD GAS PCO2 39 mmHg (35-46); ISTAT ARTERIAL BLOOD GAS PO2 81 mmHg (80-95); ISTAT ARTERIAL BLOOD GAS pH 7.42 (7.35-7.45); ISTAT CARBON DIOXIDE 26 mEq/l (24-31); ISTAT DELIVERY SYSTEM BIPAP; ISTAT FIO2 30 %; ISTAT RATE 8; ISTAT SITE L Radial
--- NOTE | 2016-09-24 18:49 | PROGRESS NOTE ---
DATE: 09/24/2016 SUBJECTIVE: I am seeing Ms. Childress in followup. She has been encephalopathic, which is polyfactorial related to hepatic failure, possibly a component of hypoxemia and hypotension. She was extubated today, has essentially been mute, although follows simple commands. OBJECTIVE: VITAL SIGNS: On exam, 37.1, 137/72, pulse of 66, respiratory rate 20, FiO2 approximately 40%. NEUROLOGICAL: The patient is sleepy but arousable and followed simple commands, moving feet. No fixed gaze preference, developed prompt blepharospasm when I attempted to check pupillary size. No facial asymmetry. Normal tone in the left upper. Patient winces when I moved the right upper extremity symmetrically and the gastrocs are greater than antigravity. Toes are equivocal. IMPRESSION: Encephalopathy, polyfactorial. PLAN: Will continue to monitor. Now that the patient is extubated, may be a little easier to assess her mentation. [facility]
--- NOTE | 2016-09-24 19:02 | DIAGNOSTIC IMAGING REPORT ---
KUB CLINICAL HISTORY: Feeding tube placement. FINDINGS: An AP, portable, supine abdominal radiograph is correlated with abdominal CT dated 08/09/2016. The examination is degraded portable technique and patient's right hand obscuring the lower abdomen. An enteric tube projects over the distal stomach. A TIPS catheter is identified. Surgical clips are noted in the pelvis. There is no bowel obstruction. No evidence of intraperitoneal free air is seen on this supine view. The skeletal structures are osteopenic. Lumbosacral spondylosis is observed. IMPRESSION: 1. An enteric tube has been placed. The tip projects over the distal stomach. 2. There is no radiographic evidence of bowel obstruction. Electronically signed by: Hung Montiel M.D. 09/24/2016 7:01 PM Dictated Date/Time: 09/24/2016 7:00 PM
--- NOTE | 2016-09-24 22:51 | DIAGNOSTIC IMAGING REPORT ---
KUB CLINICAL HISTORY: Feeding tube placement. FINDINGS: An AP, portable, supine abdominal radiograph is compared to study performed the same day 09/24/2016 and correlated with abdominal CT dated 08/09/2016. The examination is degraded portable technique and patient's right hand obscuring the lower abdomen. An enteric tube has been advanced. The tip projects over the proximal duodenum. A TIPS catheter is identified. Surgical clips are noted in the pelvis. There is no bowel obstruction. No evidence of intraperitoneal free air is seen on this supine view. The skeletal structures are osteopenic. Lumbosacral spondylosis is observed. IMPRESSION: 1. An enteric tube has been advanced. The tip projects over the proximal duodenum. 2. There is no radiographic evidence of bowel obstruction. Electronically signed by: Hung Montiel M.D. 09/24/2016 10:50 PM Dictated Date/Time: 09/24/2016 10:49 PM
[2016-09-25] VITALS (40 sets, daily range): BP systolic 86–149; BP diastolic 45–76; PULSE 53–99; TEMP 36.4–36.8; O2SAT 89–100
[2016-09-25] MEDS: RIFAXIMIN TAB 550 MG TAB PO SCH ×3 (02:16→22:20)
[2016-09-25] MEDS: HEPARIN SOD 5000 UNIT/0.5 ML CARP SQ SCH ×3 (02:18→22:21)
[2016-09-25] MEDS: PIPERACILL/TAZOBAC IV 4.5 GM in DEXTROSE 5% 100ML IV SCH ×2 (02:19→14:12)
[2016-09-25] MEDS: OCTREOTIDE ACETATE 100 MCG/ML VIAL IV. SCH ×2 (02:19→14:12)
[2016-09-25] MEDS: MICONAZOLE NITRATE POWDER 43 GM EXT SCH ×3 (02:20→22:21)
[2016-09-25 06:05] LABS: HEMATOCRIT 26.1 % (37-47); MEAN CELL VOLUME 88.8 fL (80-100); MEAN CORPUSCULAR HEMOGLOBIN 29.3 pg (25-34); RED BLOOD COUNT 2.94 M/uL (4.2-5.4); WHITE BLOOD COUNT 14.65 K/uL (4.8-10.8)
[2016-09-25 06:35] LABS: MEAN PLATELET VOLUME 9.7 fL (7.4-10.4); PLATELET COUNT 92 K/uL (130-400)
[2016-09-25 06:42] LABS: BASO % 0.1 %; BASO ABS # 0.01 K/uL (0-0.2); COMPLETE YES; ECHINOCYTES 1+; EOS % 1.5 %; IG% 2.7 %; LYMPH % 4.3 %; LYMPH ABS # 0.63 K/uL (1.2-3.4); MONO % 4.9 %; NEUT % 86.5 %; OVALOCYTES 1+; PLT ESTIMATE DECREASED; VACUOLIZATION 1+
[2016-09-25 06:43] LABS: BUN/CREATININE RATIO 11.6 (10-20); CALCIUM 8.8 mg/dl (8.5-10.1); CREATININE 1.7 mg/dl (0.60-1.20); POTASSIUM 3.5 mmol/L (3.5-5.1)
[2016-09-25 06:45] LABS: PHOSPHORUS 3.3 mg/dl (2.5-4.9)
[2016-09-25] MEDS: MIDODRINE 2.5 MG TAB PO SCH ×3 (08:07→18:06)
[2016-09-25] MEDS: PHYTONADIONE 5 MG TAB PO SCH (08:08)
[2016-09-25] MEDS: MULTIVITAMIN TAB PO SCH (08:09)
[2016-09-25] MEDS: LACTULOSE SYRUP 30 GM/45 ML UDP PO SCH (08:10)
[2016-09-25] MEDS: PANTOprazole INJ 40 MG in SYRINGE 0 ML IV SCH (08:15)
[2016-09-25] MEDS: METHYLPREDNISOLONE IV 20 MG in SYRINGE 0 ML IV SCH (08:15)
--- NOTE | 2016-09-25 08:46 | Progress Note ---
Internal Med Progress Note Date of Service: Sep 25, 2016. Provider Documentation: SUBJECTIVE: Seen and examined at bedside. Lethargic Extubated yesterday Getting dialysis this morning Afebrile No family at bedside OBJECTIVE: Vital Signs-as noted below Physical Exam: General Appearance:Lethargic Head: normocephalic, Atraumatic Eyes: normal inspection, icteric Neck: supple, Trachea midline Respiratory/Chest: Decreased breath sounds, CTA Cardiovascular: S1, S2, + murmur Abdomen/GI:Soft, mildly distended, Bowel sounds present Extremities/Musculoskelatal:normal inspection, no edema Neurologic/Psych:lethargic Skin: normal color, warm Lab data as noted below. ASSESSMENT & PLAN: Patient is a 60 yr female admitted for R humerus fracture, s/p reverse total shoulder arthroplasty ACUTE HYPOXIC AND HYPERCAPNIC RESPIRATORY FAILURE PULMONARY EDEMA POSSIBLE ASPIRATION PNEUMONIA Most likely secondary to volume overload from diastolic heart failure Chest x-ray shows bilateral infiltrates, probably pulmonary edema (although other processes are possible). Repeat CXR:Improved aeration within the lungs suggestive of resolving pulmonary edema S/P IV furosemide Dialysis for volume overload being managed by Nephrology Continue Levalbuterol neb PRN Intubated on 09/20 Extubated 09/24 S/P Bronchoscopy on 09/21 Follow up bronchial washings studies: [employer] and [employer] pending Continue : Vanco, Zosyn, Diflucan Bubble Study:no interatrial shunt and no findings to suggest hepatopulmonary shunt ECHO from 12/22/15: EF:55-59% H/O P. ATRIAL TACHYCARDIA Currently rate controlled Was on propranolol at home ENCEPHALOPATHY: Likely multifactorial: medications, hepatic encephalopathy, hypercapnia EEG: indicates moderate encephalopathy of nonspecific etiology CT head:Mild heterogeneity of the periventricular deep white matter regions possibly secondary to small vessel change Neurology following Mental status seems to be improving slowly May need MRI brain at some point if no improvement CARLOS ENRIQUE/ATN Vs HRS CKD III Cr:1.7 Ketorolac discontinued. Initially received IVFs and hydrocortisone. Appreciate Nephrology, GI help Continue midodrine, octreotide for hepatorenal syndrome. Requiring daily dialysis Planned for tunneled catheter early next week BILIARY CIRRHOSIS Appreciate GI input continue lactulose, Rifaximin for hepatic encephalopathy. Ammonia level: 59 >>>25 >>>10 ABD USD: no ascites Continue Octreotide, Midodrine Needs to have Hepatology eval for possible liver/kidney transplant CHRONIC STEROID THERAPY Chronic prednisone therapy for chronic pericarditis. S/P IV hydrocortisone Resume PO prednisone when able S/P Right reverse total shoulder arthroplasty, removal of deep hardware right proximal humerus, debridement of olecranon ulcer right elbow POD # 8 Orthopedics following DVT Px: SCD's PROCEDURES: CT head: 1. Mild heterogeneity of the periventricular deep white matter regions possibly secondary to small vessel change. 2. Limited study technically due to patient motion. 3. Mild mucosal thickening of the mastoid air cells. 4. No evidence for acute intracranial hemorrhage. Vital Signs: Date Time Temp Pulse Resp B/P (MAP) Pulse Ox O2 Delivery O2 Flow Rate FiO2 09/25/16 06:00 36.5 68 16 117/52 (73) 100 Nasal Cannula 3.0 09/25/16 05:00 58 17 131/55 (80) 100 Nasal Cannula 3.0 09/25/16 04:31 95 Nasal Cannula 3.0 09/25/16 04:00 58 16 128/64 (85) 99 Nasal Cannula 3.0 09/25/16 03:00 63 16 136/58 (84) 98 Nasal Cannula 3.0 09/25/16 02:00 59 17 149/67 (94) 99 Nasal Cannula 3.0 09/25/16 01:05 62 17 129/56 (80) Nasal Cannula 3.0 09/25/16 00:44 95 Nasal Cannula 3.0 09/25/16 00:10 72 16 124/56 (78) 89 Nasal Cannula 3.0 09/24/16 22:24 69 18 128/53 (78) 91 Nasal Cannula 3.0 09/24/16 20:06 95 Nasal Cannula 3.0 09/24/16 19:47 37.1 70 14 129/59 (82) 95 Nasal Cannula 3.0 09/24/16 18:10 37.1 66 20 137/72 (93) 98 Nasal Cannula 3.0 09/24/16 16:00 71 20 109/52 (71) 99 CPAP 30 09/24/16 16:00 BiPAP 09/24/16 15:05 70 98 09/24/16 14:25 74 94 30 09/24/16 14:00 76 20 122/68 (86) 95 CPAP 30 Mechanical Ventilator 09/24/16 12:15 37.0 72 135/74 (94) 09/24/16 12:00 93 CPAP 30 Mechanical Ventilator 09/24/16 12:00 30 09/24/16 12:00 73 20 135/74 (94) 96 CPAP 30 Mechanical Ventilator 09/24/16 11:45 75 134/72 09/24/16 11:30 73 125/76 09/24/16 11:15 77 138/68 09/24/16 11:10 30 09/24/16 11:00 73 129/67 09/24/16 10:45 74 124/63 09/24/16 10:30 75 121/71 09/24/16 10:15 73 128/64 09/24/16 10:00 73 126/57 09/24/16 10:00 74 20 126/57 (80) 94 CPAP 30 Mechanical Ventilator 09/24/16 09:45 74 128/65 09/24/16 09:30 74 114/56 09/24/16 09:15 79 135/61 Lab Results: Results Past 24 Hours Test 09/24/16 17:32 09/25/16 05:50 Range/Units Blood Gas Sample Site L Radial Bedside Blood Gas pH (LAB) 7.42 7.35-7.45 Bedside Blood Gas pCO2 (LAB) 39 35-46 mmHg Bedside Blood Gas pO2 (LAB) 81 80-95 mmHg Bedside Blood Gas HCO3 (LAB) 25 19-24 meq/L Bedside Blood Gas Total CO2 26 24-31 mEq/l Bedside Blood Gas Base Excess (LAB) 0.0 -9-1.8 meq/L Bedside Blood Gas O2 Saturation 96.0 90-95 % Amado Test Pass Oxygen Delivery Device BIPAP Bedside Oxygen Rate (breaths/min) 8 Bedside FiO2 30 % Blood Gas IPAP 7 White Blood Count 14.65 4.8-10.8 K/uL Red Blood Count 2.94 4.2-5.4 M/uL Hemoglobin 8.6 12.0-16.0 g/dL Hematocrit 26.1 37-47 % Mean Corpuscular Volume 88.8 80-100 fL Mean Corpuscular Hemoglobin 29.3 25-34 pg Mean Corpuscular Hemoglobin Concent 33.0 32-36 g/dl Platelet Count 92 130-400 K/uL Mean Platelet Volume 9.7 7.4-10.4 fL Neutrophils (%) (Auto) 86.5 % Lymphocytes (%) (Auto) 4.3 % Monocytes (%) (Auto) 4.9 % Eosinophils (%) (Auto) 1.5 % Basophils (%) (Auto) 0.1 % Neutrophils # (Auto) 12.67 1.4-6.5 K/uL Lymphocytes # (Auto) 0.63 1.2-3.4 K/uL Monocytes # (Auto) 0.72 0.11-0.59 K/uL Eosinophils # (Auto) 0.22 0-0.5 K/uL Basophils # (Auto) 0.01 0-0.2 K/uL RDW Standard Deviation 55.1 36.4-46.3 fL RDW Coefficient of Variation 17.6 11.5-14.5 % Immature Granulocyte % (Auto) 2.7 % Immature Granulocyte # (Auto) 0.40 0.00-0.02 K/uL Toxic Vacuolation 1+ Platelet Estimate DECREASED Ovalocytes 1+ Echinocytes 1+ Sodium Level 137 136-145 mmol/L Potassium Level 3.5 3.5-5.1 mmol/L Chloride Level 105 98-107 mmol/L Carbon Dioxide Level 25 21-32 mmol/L Anion Gap 7.0 3-11 mmol/L Blood Urea Nitrogen 20 7-18 mg/dl Creatinine 1.70 0.60-1.20 mg/dl Est Creatinine Clear Calc Drug Dose 38.3 ml/min Estimated GFR () 37.9 Estimated GFR (Non- 32.7 BUN/Creatinine Ratio 11.6 10-20 Random Glucose 117 70-99 mg/dl Calcium Level 8.8 8.5-10.1 mg/dl Phosphorus Level 3.3 2.5-4.9 mg/dl Magnesium Level 2.0 1.8-2.4 mg/dl Ammonia < 10.0 11-32 umol/L Procalcitonin 1.15 0-0.5 ng/ml Random Vancomycin Level 17.1 mcg/ml
--- NOTE | 2016-09-25 09:46 | Orthopedic Progress Note ---
Orthopedic Progress Note Date of Service Sep 25, 2016. Subjective Post OP Day: 7 Additional Notes: Patient was on dialysis upon examination. The only words she used were "cold." Objective dressing C/D/I Patient was very lethargic on exam. She was able to open her eyes and gave a verbal response of "cold." Her dressing was intact with some blood in the bandage window. We were going to remove her bandage upon exam however, she is currently on dialysis. We will wait till after to remove the dressing. Date Time Temp Pulse Resp B/P (MAP) Pulse Ox O2 Delivery O2 Flow Rate FiO2 09/25/16 08:50 36.5 65 129/66 (87) 09/25/16 06:00 36.5 68 16 117/52 (73) 100 Nasal Cannula 3.0 09/25/16 05:00 58 17 131/55 (80) 100 Nasal Cannula 3.0 09/25/16 04:31 95 Nasal Cannula 3.0 09/25/16 04:00 58 16 128/64 (85) 99 Nasal Cannula 3.0 09/25/16 03:00 63 16 136/58 (84) 98 Nasal Cannula 3.0 09/25/16 02:00 59 17 149/67 (94) 99 Nasal Cannula 3.0 09/25/16 01:05 62 17 129/56 (80) Nasal Cannula 3.0 09/25/16 00:44 95 Nasal Cannula 3.0 09/25/16 00:10 72 16 124/56 (78) 89 Nasal Cannula 3.0 09/24/16 22:24 69 18 128/53 (78) 91 Nasal Cannula 3.0 09/24/16 20:06 95 Nasal Cannula 3.0 09/24/16 19:47 37.1 70 14 129/59 (82) 95 Nasal Cannula 3.0 09/24/16 18:10 37.1 66 20 137/72 (93) 98 Nasal Cannula 3.0 09/24/16 16:00 71 20 109/52 (71) 99 CPAP 30 09/24/16 16:00 BiPAP 09/24/16 15:05 70 98 09/24/16 14:25 74 94 30 09/24/16 14:00 76 20 122/68 (86) 95 CPAP 30 Mechanical Ventilator 09/24/16 12:15 37.0 72 135/74 (94) 09/24/16 12:00 93 CPAP 30 Mechanical Ventilator 09/24/16 12:00 30 09/24/16 12:00 73 20 135/74 (94) 96 CPAP 30 Mechanical Ventilator 09/24/16 11:45 75 134/72 09/24/16 11:30 73 125/76 09/24/16 11:15 77 138/68 09/24/16 11:10 30 09/24/16 11:00 73 129/67 09/24/16 10:45 74 124/63 09/24/16 10:30 75 121/71 09/24/16 10:15 73 128/64 09/24/16 10:00 73 126/57 09/24/16 10:00 74 20 126/57 (80) 94 CPAP 30 Mechanical Ventilator 09/24/16 09:45 74 128/65 Laboratory Results 24 Hours: Test 09/25/16 05:50 White Blood Count 14.65 K/uL Red Blood Count 2.94 M/uL Hemoglobin 8.6 g/dL Hematocrit 26.1 % Mean Corpuscular Volume 88.8 fL Mean Corpuscular Hemoglobin 29.3 pg Mean Corpuscular Hemoglobin Concent 33.0 g/dl Platelet Count 92 K/uL Mean Platelet Volume 9.7 fL Neutrophils (%) (Auto) 86.5 % Lymphocytes (%) (Auto) 4.3 % Monocytes (%) (Auto) 4.9 % Eosinophils (%) (Auto) 1.5 % Basophils (%) (Auto) 0.1 % Neutrophils # (Auto) 12.67 K/uL Lymphocytes # (Auto) 0.63 K/uL Monocytes # (Auto) 0.72 K/uL Eosinophils # (Auto) 0.22 K/uL Basophils # (Auto) 0.01 K/uL Assessment & Plan Assessment: POD #7 s/p Right reverse total shoulder arthroplasty, removal of deep hardware right proximal humerus, debridement of olecranon ulcer right elbow Patient was extubated yesterday and tolerated it well. patient was on dialysis upon exam. Dressing is to be removed today from right shoulder. PER [employer]; Neuro - CAM positive. - Fentanyl and Versed discontinued at 09/21/16 @ 04:51, slow improvement in RASS since. Now responding to questions via head nodding, still has waxing and waning alertness - EEG shows moderate encephalopathy of nonspecific etiology. Neurology consulted - Continue to monitor for changes in RASS CV - SBP noted to be 110-130's. Levophed ordered PRN during dialysis if needed only , but thus far, patient has not required it - HR stable in 70s-80s Resp - extubation yesterday - Arm restraints ordered for protection GI/Nutrition - Has hepatorenal syndrome. Patient previously on transplant list but was too well. Current MELD score 30. GI consulted. - Discussion of transfer to [facility] for transplant evaluation was had, family has declined for now, will reconsider if patient continues to improve - Ammonia previously elevated, now normal. Trend ammonia. Continue lactulose QID. Start rifaximin. Continue midodrine and octreotide for now, as per renal. - Continue to trend LFTS every other day - GI prophylaxis: IV pantoprazole 40mg BID - Enteral nutrition switch to Nepro + added multivitamin and vitamin K - trickle feeds for now, with plans to progress Renal/Fluid - Currently undergoing dialysis for ultrafiltration and toxin removal. Creatinine elevated but stable. - Limiting fluids secondary to fluid overload. Trending BMP - Plans for removal of trialysis today if successful PICC/midline insertion. Patient for tunneled catheter insertion on 09/27/16. Vascular consulted. - Continue strict I&O's - Phosphorus low, supplemented with Neutraphos today. Recheck tomorrow ID - Afebrile with increased leukocytosis. - CXR shows slight progression in lung opacities, and small bilateral pleural effusions - Bronchoscopy samples positive for kristen albicans. Cultures pending - Continue coverage with Zosyn and Vancomycin (Day 5/7) + IV fluconazole (Day 2/ 7) Endo - Continue methylprednisone 20mg BID x 5 days, then stop 09/27/16 - Continue monitoring blood glucose. Recent levels have been within acceptable ranges. Heme - Leukocytosis increased, anemia and thrombocytopenia unchanged from day prior. Continue to monitor. - DVT prophylaxis with heparin SC 5000 units BID since no longer azotemic. Consults & Procedures Consultants: Gastroenterology: Dr. Noel Neurology: Dr. Dunn Nephrology: Dr. Thakkar Orthopedics: Dr. Fontenot Wound care: Dr. Yeung Discharge Planning Discharge Planning: uncertain
--- NOTE | 2016-09-25 11:59 | Nephrology Progress Note ---
Nephrology Progress Note Date of Service: Sep 25, 2016. Subjective see separate dialysis progress note for today's renal plan Objective Date Time Temp Pulse Resp B/P (MAP) Pulse Ox O2 Delivery O2 Flow Rate FiO2 09/25/16 06:00 36.5 68 16 117/52 (73) 100 Nasal Cannula 3.0 09/25/16 05:00 58 17 131/55 (80) 100 Nasal Cannula 3.0 09/25/16 04:31 95 Nasal Cannula 3.0 09/25/16 04:00 58 16 128/64 (85) 99 Nasal Cannula 3.0 09/25/16 03:00 63 16 136/58 (84) 98 Nasal Cannula 3.0 09/25/16 02:00 59 17 149/67 (94) 99 Nasal Cannula 3.0 09/25/16 01:05 62 17 129/56 (80) Nasal Cannula 3.0 09/25/16 00:44 95 Nasal Cannula 3.0 09/25/16 00:10 72 16 124/56 (78) 89 Nasal Cannula 3.0 09/24/16 22:24 69 18 128/53 (78) 91 Nasal Cannula 3.0 09/24/16 20:06 95 Nasal Cannula 3.0 09/24/16 19:47 37.1 70 14 129/59 (82) 95 Nasal Cannula 3.0 09/24/16 18:10 37.1 66 20 137/72 (93) 98 Nasal Cannula 3.0 09/24/16 16:00 71 20 109/52 (71) 99 CPAP 30 09/24/16 16:00 BiPAP 09/24/16 15:05 70 98 09/24/16 14:25 74 94 30 09/24/16 14:00 76 20 122/68 (86) 95 CPAP 30 Mechanical Ventilator 09/24/16 12:15 37.0 72 135/74 (94) 09/24/16 12:00 93 CPAP 30 Mechanical Ventilator 09/24/16 12:00 30 09/24/16 12:00 73 20 135/74 (94) 96 CPAP 30 Mechanical Ventilator 09/24/16 11:45 75 134/72 09/24/16 11:30 73 125/76 09/24/16 11:15 77 138/68 09/24/16 11:10 30 09/24/16 11:00 73 129/67 09/24/16 10:45 74 124/63 09/24/16 10:30 75 121/71 09/24/16 10:15 73 128/64 09/24/16 10:00 73 126/57 09/24/16 10:00 74 20 126/57 (80) 94 CPAP 30 Mechanical Ventilator 09/24/16 09:45 74 128/65 09/24/16 09:30 74 114/56 09/24/16 09:15 79 135/61 09/24/16 08:56 75 129/59 09/24/16 08:55 30 09/24/16 08:45 37.0 75 122/62 (82) Physical Exam: General-[] Eyes-[] ENT-[] Neck-[] Lungs-[] Heart-[] Abdomen-[] Extremities-[] Neuro-[] Current Inpatient Medications Medications (Trade) Dose Ordered Sig/Michael Route Start Time Stop Time Status Last Admin Dose Admin Miconazole Nitrate (Desenex Powder) 1 appln BID EXT 09/17/16 21:00 10/17/16 20:59 09/25/16 08:11 1 APPLN Midodrine (Proamatine Tab) 5 mg TID@0800,1200,1800 PO 09/19/16 18:00 10/19/16 17:59 09/25/16 08:07 5 MG Levalbuterol (Xopenex 0.63 Mg/ 3 Ml Neb) 0.63 mg Q6H PRN INH 09/20/16 08:30 10/20/16 08:29 Pantoprazole Sodium 40 mg/ Syringe 10 ml @ 5 mls/min DAILY IV 09/21/16 09:00 10/21/16 08:59 09/25/16 08:15 5 MLS/MIN Piperacillin Sod/ Tazobactam Sod (Consult) 1 ea UD PRN N/A 09/20/16 21:15 10/20/16 21:14 Vancomycin HCl (Consult) 1 ea UD PRN N/A 09/20/16 21:45 10/20/16 21:44 Midazolam HCl (Versed Inj) 2.5 mg Q1H PRN IV 09/20/16 21:45 10/20/16 21:44 Future Hold 09/21/16 04:13 2.5 MG Fentanyl Citrate (Fentanyl Inj) 50 mcg Q1H PRN IV 09/20/16 21:45 10/04/16 21:44 Future Hold 09/21/16 04:14 50 MCG Octreotide Acetate (Sandostatin Inj) 100 mcg Q8 IV. 09/22/16 06:00 10/19/16 21:59 09/25/16 02:19 100 MCG Rifaximin (Xifaxan Tab) 550 mg BID PO 09/22/16 21:00 10/22/16 20:59 09/25/16 08:09 550 MG Lactulose (Chronulac Syrup) 30 gm QID PRN PO 09/22/16 10:30 10/23/16 10:29 09/22/16 11:31 30 GM Lactulose (Chronulac Syrup) 30 gm QID PO 09/23/16 09:00 10/23/16 08:59 09/25/16 08:10 30 GM Enteral Nutritional Formula (Novasource Renal) 1,000 ml UD PRN OG 09/23/16 09:00 10/23/16 08:59 09/23/16 12:00 1,000 ML Methylprednisolone Sodium Succinate 20 mg/Syringe 0.32 ml @ 1.5 mls/min DAILY IV 09/24/16 09:00 09/27/16 08:59 09/25/16 08:15 1.5 MLS/MIN Heparin Sodium (Porcine) (Heparin Sq 5000 Unit/0.5ml) 5,000 unit Q8 SQ 09/23/16 14:00 10/23/16 13:59 09/25/16 02:18 5,000 UNIT Fluconazole/ Sodium Chloride 200 mg/Prmx 100 ml @ 100 mls/hr DAILY@1800 IV 09/23/16 18:00 09/30/16 17:59 09/24/16 17:43 100 MLS/HR Phytonadione (Mephyton Tab) 5 mg DAILY PO 09/24/16 10:30 10/24/16 10:29 09/25/16 08:08 5 MG Piperacillin Sod/ Tazobactam Sod 4.5 gm/Dextrose 120 ml @ 30 mls/hr Q12@0200,1400 IV 09/24/16 14:00 09/27/16 13:59 09/25/16 02:19 30 MLS/HR Multivitamins (Multivitamin Tab) 1 tab QAM PO 09/25/16 09:00 10/25/16 08:59 09/25/16 08:09 1 TAB Heparin Sodium (Porcine) (Heparin 10 Unit/ ml 5 ml Flush) 5 ml PRN PRN FLUSH 09/25/16 02:00 10/25/16 01:59 Last 24 Hours Test 09/24/16 17:32 09/25/16 05:50 Blood Gas Sample Site L Radial Bedside Blood Gas pH (LAB) 7.42 Bedside Blood Gas pCO2 (LAB) 39 mmHg Bedside Blood Gas pO2 (LAB) 81 mmHg Bedside Blood Gas HCO3 (LAB) 25 meq/L Bedside Blood Gas Total CO2 26 mEq/l Bedside Blood Gas Base Excess (LAB) 0.0 meq/L Bedside Blood Gas O2 Saturation 96.0 % Amado Test Pass Oxygen Delivery Device BIPAP Bedside Oxygen Rate (breaths/min) 8 Bedside FiO2 30 % Blood Gas IPAP 7 White Blood Count 14.65 K/uL Red Blood Count 2.94 M/uL Hemoglobin 8.6 g/dL Hematocrit 26.1 % Mean Corpuscular Volume 88.8 fL Mean Corpuscular Hemoglobin 29.3 pg Mean Corpuscular Hemoglobin Concent 33.0 g/dl Platelet Count 92 K/uL Mean Platelet Volume 9.7 fL Neutrophils (%) (Auto) 86.5 % Lymphocytes (%) (Auto) 4.3 % Monocytes (%) (Auto) 4.9 % Eosinophils (%) (Auto) 1.5 % Basophils (%) (Auto) 0.1 % Neutrophils # (Auto) 12.67 K/uL Lymphocytes # (Auto) 0.63 K/uL Monocytes # (Auto) 0.72 K/uL Eosinophils # (Auto) 0.22 K/uL Basophils # (Auto) 0.01 K/uL RDW Standard Deviation 55.1 fL RDW Coefficient of Variation 17.6 % Immature Granulocyte % (Auto) 2.7 % Immature Granulocyte # (Auto) 0.40 K/uL Toxic Vacuolation 1+ Platelet Estimate DECREASED Ovalocytes 1+ Echinocytes 1+ Sodium Level 137 mmol/L Potassium Level 3.5 mmol/L Chloride Level 105 mmol/L Carbon Dioxide Level 25 mmol/L Anion Gap 7.0 mmol/L Blood Urea Nitrogen 20 mg/dl Creatinine 1.70 mg/dl Est Creatinine Clear Calc Drug Dose 38.3 ml/min Estimated GFR () 37.9 Estimated GFR (Non- 32.7 BUN/Creatinine Ratio 11.6 Random Glucose 117 mg/dl Calcium Level 8.8 mg/dl Phosphorus Level 3.3 mg/dl Magnesium Level 2.0 mg/dl Ammonia < 10.0 umol/L Procalcitonin 1.15 ng/ml Random Vancomycin Level 17.1 mcg/ml
--- NOTE | 2016-09-25 12:07 | Dialysis Progress Note ---
Nephrology Dialysis Note Date of Service: Sep 25, 2016. Subjective seen on rounds this am at about 0900. pt not alert enough to give ros; does not interact w/ me except to open eyes briefly. Objective Date Time Temp Pulse Resp B/P (MAP) Pulse Ox O2 Delivery O2 Flow Rate FiO2 09/25/16 11:45 76 100/63 09/25/16 11:30 77 112/62 09/25/16 11:15 76 124/72 09/25/16 11:00 76 105/65 09/25/16 10:45 75 113/73 09/25/16 10:30 78 102/57 09/25/16 10:15 75 97/61 09/25/16 10:00 74 122/67 09/25/16 09:45 76 110/69 09/25/16 09:30 74 126/67 09/25/16 09:15 58 100/47 09/25/16 09:04 53 121/64 09/25/16 08:50 36.5 65 129/66 (87) 09/25/16 06:00 36.5 68 16 117/52 (73) 100 Nasal Cannula 3.0 09/25/16 05:00 58 17 131/55 (80) 100 Nasal Cannula 3.0 09/25/16 04:31 95 Nasal Cannula 3.0 09/25/16 04:00 58 16 128/64 (85) 99 Nasal Cannula 3.0 09/25/16 03:00 63 16 136/58 (84) 98 Nasal Cannula 3.0 09/25/16 02:00 59 17 149/67 (94) 99 Nasal Cannula 3.0 09/25/16 01:05 62 17 129/56 (80) Nasal Cannula 3.0 09/25/16 00:44 95 Nasal Cannula 3.0 09/25/16 00:10 72 16 124/56 (78) 89 Nasal Cannula 3.0 09/24/16 22:24 69 18 128/53 (78) 91 Nasal Cannula 3.0 09/24/16 20:06 95 Nasal Cannula 3.0 09/24/16 19:47 37.1 70 14 129/59 (82) 95 Nasal Cannula 3.0 09/24/16 18:10 37.1 66 20 137/72 (93) 98 Nasal Cannula 3.0 09/24/16 16:00 71 20 109/52 (71) 99 CPAP 30 09/24/16 16:00 BiPAP 09/24/16 15:05 70 98 09/24/16 14:25 74 94 30 09/24/16 14:00 76 20 122/68 (86) 95 CPAP 30 Mechanical Ventilator 09/24/16 12:15 37.0 72 135/74 (94) 09/24/16 12:00 93 CPAP 30 Mechanical Ventilator 09/24/16 12:00 30 09/24/16 12:00 73 20 135/74 (94) 96 CPAP 30 Mechanical Ventilator Physical Exam: General-on 3LNC; opens eyes briefly; does not interact/lethargic Eyes-+scleral icterus ENT-dry mm; NGT Neck-supple Lungs-diminished air entry Heart-rrr Abdomen-bs+/soft; no perez [id number]+ dependent and scant peripheral edema Neuro-lethargic Current Inpatient Medications Medications (Trade) Dose Ordered Sig/Michael Route Start Time Stop Time Status Last Admin Dose Admin Miconazole Nitrate (Desenex Powder) 1 appln BID EXT 09/17/16 21:00 10/17/16 20:59 09/25/16 08:11 1 APPLN Midodrine (Proamatine Tab) 5 mg TID@0800,1200,1800 PO 09/19/16 18:00 10/19/16 17:59 09/25/16 08:07 5 MG Levalbuterol (Xopenex 0.63 Mg/ 3 Ml Neb) 0.63 mg Q6H PRN INH 09/20/16 08:30 10/20/16 08:29 Pantoprazole Sodium 40 mg/ Syringe 10 ml @ 5 mls/min DAILY IV 09/21/16 09:00 10/21/16 08:59 09/25/16 08:15 5 MLS/MIN Piperacillin Sod/ Tazobactam Sod (Consult) 1 ea UD PRN N/A 09/20/16 21:15 10/20/16 21:14 Vancomycin HCl (Consult) 1 ea UD PRN N/A 09/20/16 21:45 10/20/16 21:44 Midazolam HCl (Versed Inj) 2.5 mg Q1H PRN IV 09/20/16 21:45 10/20/16 21:44 Future Hold 09/21/16 04:13 2.5 MG Fentanyl Citrate (Fentanyl Inj) 50 mcg Q1H PRN IV 09/20/16 21:45 10/04/16 21:44 Future Hold 09/21/16 04:14 50 MCG Octreotide Acetate (Sandostatin Inj) 100 mcg Q8 IV. 09/22/16 06:00 10/19/16 21:59 09/25/16 02:19 100 MCG Rifaximin (Xifaxan Tab) 550 mg BID PO 09/22/16 21:00 10/22/16 20:59 09/25/16 08:09 550 MG Lactulose (Chronulac Syrup) 30 gm QID PRN PO 09/22/16 10:30 10/23/16 10:29 09/22/16 11:31 30 GM Lactulose (Chronulac Syrup) 30 gm QID PO 09/23/16 09:00 10/23/16 08:59 Future Hold 09/25/16 08:10 30 GM Enteral Nutritional Formula (Novasource Renal) 1,000 ml UD PRN OG 09/23/16 09:00 10/23/16 08:59 09/23/16 12:00 1,000 ML Methylprednisolone Sodium Succinate 20 mg/Syringe 0.32 ml @ 1.5 mls/min DAILY IV 09/24/16 09:00 09/27/16 08:59 09/25/16 08:15 1.5 MLS/MIN Heparin Sodium (Porcine) (Heparin Sq 5000 Unit/0.5ml) 5,000 unit Q8 SQ 09/23/16 14:00 10/23/16 13:59 09/25/16 02:18 5,000 UNIT Fluconazole/ Sodium Chloride 200 mg/Prmx 100 ml @ 100 mls/hr DAILY@1800 IV 09/23/16 18:00 09/30/16 17:59 09/24/16 17:43 100 MLS/HR Phytonadione (Mephyton Tab) 5 mg DAILY PO 09/24/16 10:30 10/24/16 10:29 09/25/16 08:08 5 MG Piperacillin Sod/ Tazobactam Sod 4.5 gm/Dextrose 120 ml @ 30 mls/hr Q12@0200,1400 IV 09/24/16 14:00 09/27/16 13:59 09/25/16 02:19 30 MLS/HR Multivitamins (Multivitamin Tab) 1 tab QAM PO 09/25/16 09:00 10/25/16 08:59 09/25/16 08:09 1 TAB Heparin Sodium (Porcine) (Heparin 10 Unit/ ml 5 ml Flush) 5 ml PRN PRN FLUSH 09/25/16 02:00 10/25/16 01:59 Last 24 Hours Test 09/24/16 17:32 09/25/16 05:50 09/25/16 09:19 Blood Gas Sample Site L Radial Bedside Blood Gas pH (LAB) 7.42 Bedside Blood Gas pCO2 (LAB) 39 mmHg Bedside Blood Gas pO2 (LAB) 81 mmHg Bedside Blood Gas HCO3 (LAB) 25 meq/L Bedside Blood Gas Total CO2 26 mEq/l Bedside Blood Gas Base Excess (LAB) 0.0 meq/L Bedside Blood Gas O2 Saturation 96.0 % Amado Test Pass Oxygen Delivery Device BIPAP Bedside Oxygen Rate (breaths/min) 8 Bedside FiO2 30 % Blood Gas IPAP 7 White Blood Count 14.65 K/uL Red Blood Count 2.94 M/uL Hemoglobin 8.6 g/dL Hematocrit 26.1 % Mean Corpuscular Volume 88.8 fL Mean Corpuscular Hemoglobin 29.3 pg Mean Corpuscular Hemoglobin Concent 33.0 g/dl Platelet Count 92 K/uL Mean Platelet Volume 9.7 fL Neutrophils (%) (Auto) 86.5 % Lymphocytes (%) (Auto) 4.3 % Monocytes (%) (Auto) 4.9 % Eosinophils (%) (Auto) 1.5 % Basophils (%) (Auto) 0.1 % Neutrophils # (Auto) 12.67 K/uL Lymphocytes # (Auto) 0.63 K/uL Monocytes # (Auto) 0.72 K/uL Eosinophils # (Auto) 0.22 K/uL Basophils # (Auto) 0.01 K/uL RDW Standard Deviation 55.1 fL RDW Coefficient of Variation 17.6 % Immature Granulocyte % (Auto) 2.7 % Immature Granulocyte # (Auto) 0.40 K/uL Toxic Vacuolation 1+ Platelet Estimate DECREASED Ovalocytes 1+ Echinocytes 1+ Sodium Level 137 mmol/L Potassium Level 3.5 mmol/L Chloride Level 105 mmol/L Carbon Dioxide Level 25 mmol/L Anion Gap 7.0 mmol/L Blood Urea Nitrogen 20 mg/dl Creatinine 1.70 mg/dl Est Creatinine Clear Calc Drug Dose 38.3 ml/min Estimated GFR () 37.9 Estimated GFR (Non- 32.7 BUN/Creatinine Ratio 11.6 Random Glucose 117 mg/dl Calcium Level 8.8 mg/dl Phosphorus Level 3.3 mg/dl Magnesium Level 2.0 mg/dl Ammonia < 10.0 umol/L Procalcitonin 1.15 ng/ml Random Vancomycin Level 17.1 mcg/ml Bedside Glucose 267 mg/dl Assessment & Plan 60 yo female with biliary cirrhosis with anuric ileana/atn vs HRS who required intubation, extubated 09/23. on daily dialysis 09/20-09/25. -for HD today to cont to optimize volume/clearance -after HD, reasonable to d/c temporary line (which has poor function) in preparation for 09/27 TDC plcement; Nasim Ruano aware -next HD tentatively 09/27 or depending on clinical status -reasonable at this point to stop octreotide; would continue midodrine for now given relative hypotension Appreciate consult; care coordinated w/ Dr. Tong
--- NOTE | 2016-09-25 12:33 | Critical Care Progress Note ---
Critical Care Progress Note Date of Service Sep 25, 2016. ICU Day ICU Day Number: [address] Tong Subjective Patient extubated, and has shown increased responsive to stimuli and has no begun to express herself via yes and no answers. She denies chest pain, shoulder pain, abdominal pain. She denies SOB, palpitations, or nausea. Sometimes during question, she loses her ability to focus, but she resumes her attention with repetitive questioning. Objective GENERAL: Responsive, lying in bed, oxygen support via nasal cannula HEAD: Normocephalic, atraumatic. EYES: Normal sclera and conjunctiva. PERRL. Tracking upon command. Scleral and conjunctiva normal. Good eyelid muscle control NECK: Supple, no adenopathy. Able to hold neck up when pillow is removed. LUNGS: Normal chest wall mechanics, poor air entry. No crackles, or wheezes HEART: S1 and S2 normal, systolic murmur appreciated in the aortic region ABDOMEN: abdomen soft - no ascites appreciated, bowel sounds present, no masses , no rebound or guarding. SKIN: Warm, pink, dry. No rashes. Bruising on left arm from previous trial of PICC insertion. Evidence of venostasis on lower limbs. EXTREMITIES: Bandage on right arm from shoulder surgery. Bilateral lower extremity edema. Mits on hands bilaterally as previously tried to pull out Coresafe tube NEURO: Responsive to voice -- opens eyes. Pupils equal. Neck movement, including ability to nod/shake her head. Responding appropriately but also intermittent refusal to interact - thus unable to assess patients strength, speech. Current SOFA Score SOFA Score Response (Comments) Value Platelets (x10) < 100 2 Bilirubin (mg/dL) 2.0 - 5.9 2 Ariana Coma Score 10 - 12 2 Level of Hypotension No Hypotension 0 Creatinine (mg/dL) 1.2 - 1.9 1 Total 7 Assessment & Plan 60 year old female post op from orthopedic surgery with altered mental status secondary to hepatorenal syndrome, requiring intubation for impending hypoxic and hypercapnic respiratory failure Neuro - CAM positive. RASS -1 - Fentanyl and Versed discontinued at 09/21/16 @ 04:51, slow improvement in RASS since. Now responding to questions via verbally with yes/no responses, improved alertness - Neurology consulted. - Continue to monitor for changes in RASS CV - SBP noted to be 110-140's. Levophed ordered PRN during dialysis if needed only , but thus far, patient has not required it - HR stable in 60s-80s Resp - Extubated yesterday, saturating well on 3L O2 via nasal cannula, saturating 98 %. - Arm restraints ordered to prevent pulling Coresafe out/NC off GI/Nutrition - Has hepatorenal syndrome. Patient previously on transplant list but was too well. Current MELD score 24. GI consulted. - Ammonia remains WNL. Continue rifaximin, and midodrine. Discontinue octreotide and scheduled lactulose held for now as increased nutrition will also contribute to increased BM - Continue to trend LFTS every other day - GI prophylaxis: IV pantoprazole 40mg BID - Enteral nutrition Novasource renal feeds increased to 30cc/hr target. Continue multivitamin and vitamin K supplements - Family may consider transfer to [facility] for transplant evaluation as patient continues to improve Renal/Fluid - Ongoing dialysis for ultrafiltration and toxin removal - 11.7L removed to date. Creatinine elevated but stable. - Limiting fluids secondary to fluid overload. Trending BMP - Plans for removal of trialysis today. Patient for tunneled catheter insertion on 09/27/16. Vascular consulted. - Continue strict I&O's - Phosphorus supplemented, now WNL ID - Afebrile with downtrending leukocytosis. - Bronchoscopy samples positive for kristen albicans. Fungal and acid fast cultures pending - Continue coverage with Zosyn and Vancomycin (Day 6/7) + IV fluconazole (Day 3/ 7) Endo - Continue methylprednisone 20mg BID x 5 days, then stop 09/27/16 - Continue monitoring blood glucose. Recent levels have been within acceptable ranges. Heme - Leukocytosis improved, anemia stable. - Thrombocytopenia continues, but no evidence of thrombosis, HIT score 2 - <5% probability of HIT. Continue to monitor. - Continue DVT prophylaxis with heparin SC 5000 units BID. Access - 2x peripheral IV, 1x central trialysis catheter, 1 left upper arm midline Resident Physician Supervision Note: Dr. Weaver was resident physician during care of patient. I separately evaluated patient and did history and exam. I discussed the case with the resident and generally agree with the findings and plan. D/W Dr. Thomas: d/c octreotide, d/c HD catheter with anticipation of permacath placement Tuesday. Continue tube feedings. Documented By: Toi Tong DO [email or web address] II Score Date Score Was Generated: Sep 24, 2016 Consults & Procedures Consultants: Gastroenterology: Dr. Noel Neurology: Dr. Dnun Nephrology: [facility]cu Orthopedics: Dr. Fontenot Vascular: Dr. Rouse Wound care: Dr. Yeung Procedures: 09/17/16: Right reverse total shoulder arthroplasty, removal of deep hardware right proximal humerus, debridement of olecranon ulcer right elbow 09/20/16: Trialysis central catheter inserted 09/20/16: Echo 09/20/16: Intubated 09/21/16: Bronchoscopy 09/24/16: Midline inserted 09/24/16: Extubated Data Medications: Current Inpatient Medications Medications (Trade) Dose Ordered Sig/Michael Route Start Time Stop Time Status Last Admin Dose Admin Miconazole Nitrate (Desenex Powder) 1 appln BID EXT 09/17/16 21:00 10/17/16 20:59 09/25/16 08:11 1 APPLN Midodrine (Proamatine Tab) 5 mg TID@0800,1200,1800 PO 09/19/16 18:00 10/19/16 17:59 09/25/16 08:07 5 MG Levalbuterol (Xopenex 0.63 Mg/ 3 Ml Neb) 0.63 mg Q6H PRN INH 09/20/16 08:30 10/20/16 08:29 Pantoprazole Sodium 40 mg/ Syringe 10 ml @ 5 mls/min DAILY IV 09/21/16 09:00 10/21/16 08:59 09/25/16 08:15 5 MLS/MIN Piperacillin Sod/ Tazobactam Sod (Consult) 1 ea UD PRN N/A 09/20/16 21:15 10/20/16 21:14 Vancomycin HCl (Consult) 1 ea UD PRN N/A 09/20/16 21:45 10/20/16 21:44 Midazolam HCl (Versed Inj) 2.5 mg Q1H PRN IV 09/20/16 21:45 10/20/16 21:44 Future Hold 09/21/16 04:13 2.5 MG Fentanyl Citrate (Fentanyl Inj) 50 mcg Q1H PRN IV 09/20/16 21:45 10/04/16 21:44 Future Hold 09/21/16 04:14 50 MCG Octreotide Acetate (Sandostatin Inj) 100 mcg Q8 IV. 09/22/16 06:00 10/19/16 21:59 09/25/16 02:19 100 MCG Rifaximin (Xifaxan Tab) 550 mg BID PO 09/22/16 21:00 10/22/16 20:59 09/25/16 08:09 550 MG Lactulose (Chronulac Syrup) 30 gm QID PRN PO 09/22/16 10:30 10/23/16 10:29 09/22/16 11:31 30 GM Lactulose (Chronulac Syrup) 30 gm QID PO 09/23/16 09:00 10/23/16 08:59 Future Hold 09/25/16 08:10 30 GM Enteral Nutritional Formula (Novasource Renal) 1,000 ml UD PRN OG 09/23/16 09:00 10/23/16 08:59 09/23/16 12:00 1,000 ML Methylprednisolone Sodium Succinate 20 mg/Syringe 0.32 ml @ 1.5 mls/min DAILY IV 09/24/16 09:00 09/27/16 08:59 09/25/16 08:15 1.5 MLS/MIN Heparin Sodium (Porcine) (Heparin Sq 5000 Unit/0.5ml) 5,000 unit Q8 SQ 09/23/16 14:00 10/23/16 13:59 09/25/16 02:18 5,000 UNIT Fluconazole/ Sodium Chloride 200 mg/Prmx 100 ml @ 100 mls/hr DAILY@1800 IV 09/23/16 18:00 09/30/16 17:59 09/24/16 17:43 100 MLS/HR Phytonadione (Mephyton Tab) 5 mg DAILY PO 09/24/16 10:30 10/24/16 10:29 09/25/16 08:08 5 MG Piperacillin Sod/ Tazobactam Sod 4.5 gm/Dextrose 120 ml @ 30 mls/hr Q12@0200,1400 IV 09/24/16 14:00 09/27/16 13:59 09/25/16 02:19 30 MLS/HR Multivitamins (Multivitamin Tab) 1 tab QAM PO 09/25/16 09:00 10/25/16 08:59 09/25/16 08:09 1 TAB Heparin Sodium (Porcine) (Heparin 10 Unit/ ml 5 ml Flush) 5 ml PRN PRN FLUSH 09/25/16 02:00 10/25/16 01:59 Vital Signs: Date Time Temp Pulse Resp B/P (MAP) Pulse Ox O2 Delivery O2 Flow Rate FiO2 09/25/16 11:45 76 100/63 09/25/16 11:30 77 112/62 09/25/16 11:15 76 124/72 09/25/16 11:00 76 105/65 09/25/16 10:45 75 113/73 09/25/16 10:30 78 102/57 09/25/16 10:15 75 97/61 09/25/16 10:00 74 122/67 09/25/16 09:45 76 110/69 09/25/16 09:30 74 126/67 09/25/16 09:15 58 100/47 09/25/16 09:04 53 121/64 09/25/16 08:50 36.5 65 129/66 (87) 09/25/16 06:00 36.5 68 16 117/52 (73) 100 Nasal Cannula 3.0 09/25/16 05:00 58 17 131/55 (80) 100 Nasal Cannula 3.0 09/25/16 04:31 95 Nasal Cannula 3.0 09/25/16 04:00 58 16 128/64 (85) 99 Nasal Cannula 3.0 09/25/16 03:00 63 16 136/58 (84) 98 Nasal Cannula 3.0 09/25/16 02:00 59 17 149/67 (94) 99 Nasal Cannula 3.0 09/25/16 01:05 62 17 129/56 (80) Nasal Cannula 3.0 09/25/16 00:44 95 Nasal Cannula 3.0 09/25/16 00:10 72 16 124/56 (78) 89 Nasal Cannula 3.0 09/24/16 22:24 69 18 128/53 (78) 91 Nasal Cannula 3.0 09/24/16 20:06 95 Nasal Cannula 3.0 09/24/16 19:47 37.1 70 14 129/59 (82) 95 Nasal Cannula 3.0 09/24/16 18:10 37.1 66 20 137/72 (93) 98 Nasal Cannula 3.0 09/24/16 16:00 71 20 109/52 (71) 99 CPAP 30 09/24/16 16:00 BiPAP 09/24/16 15:05 70 98 09/24/16 14:25 74 94 30 09/24/16 14:00 76 20 122/68 (86) 95 CPAP 30 Mechanical Ventilator Laboratory Results: Last 24 Hours Test 09/24/16 17:32 09/25/16 05:50 09/25/16 09:19 Blood Gas Sample Site L Radial Bedside Blood Gas pH (LAB) 7.42 Bedside Blood Gas pCO2 (LAB) 39 mmHg Bedside Blood Gas pO2 (LAB) 81 mmHg Bedside Blood Gas HCO3 (LAB) 25 meq/L Bedside Blood Gas Total CO2 26 mEq/l Bedside Blood Gas Base Excess (LAB) 0.0 meq/L Bedside Blood Gas O2 Saturation 96.0 % Amado Test Pass Oxygen Delivery Device BIPAP Bedside Oxygen Rate (breaths/min) 8 Bedside FiO2 30 % Blood Gas IPAP 7 White Blood Count 14.65 K/uL Red Blood Count 2.94 M/uL Hemoglobin 8.6 g/dL Hematocrit 26.1 % Mean Corpuscular Volume 88.8 fL Mean Corpuscular Hemoglobin 29.3 pg Mean Corpuscular Hemoglobin Concent 33.0 g/dl Platelet Count 92 K/uL Mean Platelet Volume 9.7 fL Neutrophils (%) (Auto) 86.5 % Lymphocytes (%) (Auto) 4.3 % Monocytes (%) (Auto) 4.9 % Eosinophils (%) (Auto) 1.5 % Basophils (%) (Auto) 0.1 % Neutrophils # (Auto) 12.67 K/uL Lymphocytes # (Auto) 0.63 K/uL Monocytes # (Auto) 0.72 K/uL Eosinophils # (Auto) 0.22 K/uL Basophils # (Auto) 0.01 K/uL RDW Standard Deviation 55.1 fL RDW Coefficient of Variation 17.6 % Immature Granulocyte % (Auto) 2.7 % Immature Granulocyte # (Auto) 0.40 K/uL Toxic Vacuolation 1+ Platelet Estimate DECREASED Ovalocytes 1+ Echinocytes 1+ Sodium Level 137 mmol/L Potassium Level 3.5 mmol/L Chloride Level 105 mmol/L Carbon Dioxide Level 25 mmol/L Anion Gap 7.0 mmol/L Blood Urea Nitrogen 20 mg/dl Creatinine 1.70 mg/dl Est Creatinine Clear Calc Drug Dose 38.3 ml/min Estimated GFR () 37.9 Estimated GFR (Non- 32.7 BUN/Creatinine Ratio 11.6 Random Glucose 117 mg/dl Calcium Level 8.8 mg/dl Phosphorus Level 3.3 mg/dl Magnesium Level 2.0 mg/dl Ammonia < 10.0 umol/L Procalcitonin 1.15 ng/ml Random Vancomycin Level 17.1 mcg/ml Bedside Glucose 267 mg/dl Resident Tracking Resident Involvement: Resident Care Provided Care Provided: Adult Hospital Medicine
--- NOTE | 2016-09-25 12:52 | PROGRESS NOTE ---
DATE: 09/25/2016 I am seeing Mrs. Childress in followup of encephalopathy, likely a combination of hepatorenal failure as well as hypoxemia and hypotension. She has been extubated, appears to be doing, is currently on dialysis. She is awake and alert, follows simple commands, knows her name, is able to chose that she is in the hospital, has no obvious right/left confusion. There is no fixed gaze preference. No facial asymmetry. Speech is hypophonic but not dysarthric. She moves the right fingers very little because of pain. Left hand is greater than antigravity, both legs are greater than antigravity and the toes are downgoing. IMPRESSION: Improved encephalopathy polyfactorial. We will sign off. Please reconsult if there are ongoing issues. MTDD
[2016-09-25] MEDS: METOCLOPRAMIDE HCL INJ 5 MG/ML 2 ML VIAL IV PRN (14:12)
--- NOTE | 2016-09-25 15:00 | Pharmacy Progress Note ---
Pharmacy Abx Dose Short Note Date of Service Sep 25, 2016. Assessment & Plan Assessment 60 year old female initiated on Vancomycin/Zosyn IV for pulmonary source. Patient with biliary cirrhosis with CARLOS ENRIQUE/ATN vs HRS- temporary dialysis catheter placed 09/20/16. Per ICU rounds 09/24, more permanent catheter placement being considered for Tuesday. -Patient has received dialysis 3 hr DAILY 09/20-09/25 MRSA swab positive. Urine culture negative. Sputum growing rare Melissa Albicans. Although melissa may not be infectious, team has decided to treat with 7 day course of Fluconazole IV. Day # 6 of Zosyn/vancomycin therapy. Plan Vancomycin * Random level of 17.1 mcg/mL is therapeutic. * Re-dose patient after dialysis today. Dose will be 750 mg IV X 1. * Goal remains 15-20 mcg/mL * A random level will be ordered for: 09/26/16 with AM labs. Piperacillin/tazobactam * 4.5 g bolus administered over 30 minutes, then 4.5 g IV extended infusion every 12 hours for dialysis. * Aggressive dosing selected due to critically ill status. Fluconazole * Goal 400-800 mg IV daily * Renal reduction: 200 mg IV daily Pharmacy will continue to follow and will adjust dose/frequency as necessary. Thank you.
[2016-09-25] MEDS ORDERED: VANCOMYCIN INJ 750 MG in SODIUM CHLORIDE 0.9% 250ML 150 ML IV ONE (15:30)
[2016-09-25] MEDS: FLUCONAZOLE 200MG / NSS IV SCH (18:05)
[2016-09-26] VITALS (29 sets, daily range): BP systolic 100–147; BP diastolic 49–79; PULSE 70–89; TEMP 36.7–36.8; O2SAT 89–99
--- NOTE | 2016-09-26 04:24 | Critical Care Progress Note ---
Critical Care Progress Note Date of Service Sep 26, 2016. ICU Day ICU Day Number: [address] Tong Subjective Patient awake, but unlike last night where she was responding to questions and able to hold a simple conversation, this morning, she continues to refuse to engage and keeps drifting in and out of alertness. She has has demonstrated responsiveness to voice, and minimal yes/no answers, but was not as interactive this morning. She denies chest pain, shoulder pain, abdominal pain. She denies SOB, palpitations, or nausea. Sometimes during question, she loses her ability to focus, and despite repetition, she resumes her sleep. Objective GENERAL: Responsive, lying in bed, no oxygen support on and saturating 96% HEAD: Normocephalic, atraumatic. EYES: Normal sclera and conjunctiva. PERRL. Tracking upon command. Scleral and conjunctiva normal. Good eyelid muscle control NECK: Supple, no adenopathy. Able to hold neck up when pillow is removed. LUNGS: Normal chest wall mechanics, poor air entry. No crackles, or wheezes HEART: S1 and S2 normal, systolic murmur appreciated in the aortic region ABDOMEN: abdomen soft - no ascites appreciated, bowel sounds present, no masses , no rebound or guarding. SKIN: Warm, pink, dry. No rashes. Bruising on left arm from previous trial of PICC insertion. Evidence of venostasis on lower limbs. EXTREMITIES: Killian exposed on right arm from shoulder surgery. Bilateral lower extremity edema. Mits on hands bilaterally as previously tried to pull out Coresafe tube NEURO: Responsive to voice -- opens eyes. Pupils equal. Neck movement, including ability to nod/shake her head. Responding minimally, with little engagement, thus unable to assess further Current SOFA Score SOFA Score Response (Comments) Value Platelets (x10) < 100 2 Bilirubin (mg/dL) 2.0 - 5.9 2 Ariana Coma Score 10 - 12 2 Level of Hypotension No Hypotension 0 Creatinine (mg/dL) 1.2 - 1.9 1 Total 7 Assessment & Plan 60 year old female post op from orthopedic surgery with altered mental status secondary to hepatorenal syndrome, requiring intubation for impending hypoxic and hypercapnic respiratory failure Neuro - CAM positive. RASS -2 - Fentanyl and Versed discontinued at 09/21/16 @ 04:51, slow improvement in RASS since. Now responding to questions via verbally with yes/no responses, has been having intermittently improved alertness - Neurology consulted. - Continue to monitor for changes in RASS CV - SBP noted to be 110-130's. Levophed ordered PRN during dialysis if needed only , but thus far, patient has not required it - HR stable in 70s-90s Resp - On RA, saturating 96%. GI/Nutrition - Has hepatorenal syndrome. Patient previously on transplant list but was too well. Current MELD score 24. GI consulted. - Ammonia remains WNL. Continue rifaximin, and midodrine. Lactulose PRN for decreased bowel movements - Continue to trend LFTS every other day - Enteral nutrition Novasource renal feeds reached to 30cc/hr target. When patient alert enough, may consider holding feeds and trying PO renal diet ( dietitian consulted). Bedside swallow test done yesterday. If successful, may consider removal of Coresafe and GI prophylaxis - Continue multivitamin and vitamin K supplements - Family may consider transfer to [facility] for transplant evaluation as patient continues to improve Renal/Fluid - Ongoing dialysis for ultrafiltration and toxin removal - 11.7L removed to date. Creatinine elevated but stable. - Limiting fluids secondary to fluid overload. Trending BMP - Patient for tunneled catheter insertion on 09/27/16. Vascular consulted. - Continue strict I&O's - Phosphorus supplemented, now WNL ID - Afebrile with elevated leukocytosis. - Bronchoscopy samples positive for kristen albicans. Fungal and acid fast cultures pending - Continue coverage with Zosyn and Vancomycin (Day 7/7) + IV fluconazole (Day 4/ 7) Endo - Continue methylprednisone 20mg BID x 5 days, then stop 09/27/16 - Continue monitoring blood glucose. Recent levels have been within acceptable ranges. Heme - Leukocytosis improved, anemia stable. - Thrombocytopenia continues, but no evidence of thrombosis, HIT score 2 - <5% probability of HIT. Continue to monitor. - Continue DVT prophylaxis with heparin SC 5000 units BID. Access - 2x peripheral IV, 1 left upper arm midline Resident Physician Supervision Note: Dr. Weaver was resident physician during care of patient. I separately evaluated patient and did history and exam. I discussed the case with the resident and generally agree with the findings and plan. continued improvement. Nutritional support is largest need at this time. Plan for vascular permacath tomorrow. Documented By: Toi Tong DO HAVASUPAI II Score Date Score Was Generated: Sep 24, 2016 Consults & Procedures Consultants: Gastroenterology: Dr. Noel Neurology: Dr. Dunn Nephrology: [facility] Orthopedics: Dr. Fontenot Vascular: Dr. Rouse Wound care: Dr. Yeung Procedures: 09/17/16: Right reverse total shoulder arthroplasty, removal of deep hardware right proximal humerus, debridement of olecranon ulcer right elbow 09/20/16: Trialysis central catheter inserted 09/20/16: Echo 09/20/16: Intubated 09/21/16: Bronchoscopy 09/24/16: Midline inserted 09/24/16: Extubated 09/25/16: Trialysis removed Data Medications: Current Inpatient Medications Medications (Trade) Dose Ordered Sig/Michael Route Start Time Stop Time Status Last Admin Dose Admin Miconazole Nitrate (Desenex Powder) 1 appln BID EXT 09/17/16 21:00 10/17/16 20:59 09/25/16 22:21 1 APPLN Midodrine (Proamatine Tab) 5 mg TID@0800,1200,1800 PO 09/19/16 18:00 10/19/16 17:59 09/25/16 18:06 5 MG Levalbuterol (Xopenex 0.63 Mg/ 3 Ml Neb) 0.63 mg Q6H PRN INH 09/20/16 08:30 10/20/16 08:29 Pantoprazole Sodium 40 mg/ Syringe 10 ml @ 5 mls/min DAILY IV 09/21/16 09:00 10/21/16 08:59 09/25/16 08:15 5 MLS/MIN Piperacillin Sod/ Tazobactam Sod (Consult) 1 ea UD PRN N/A 09/20/16 21:15 10/20/16 21:14 Vancomycin HCl (Consult) 1 ea UD PRN N/A 09/20/16 21:45 10/20/16 21:44 Midazolam HCl (Versed Inj) 2.5 mg Q1H PRN IV 09/20/16 21:45 10/20/16 21:44 Future Hold 09/21/16 04:13 2.5 MG Fentanyl Citrate (Fentanyl Inj) 50 mcg Q1H PRN IV 09/20/16 21:45 8/28/17 21:44 Future Hold 09/21/16 04:14 50 MCG Rifaximin (Xifaxan Tab) 550 mg BID PO 09/22/16 21:00 10/22/16 20:59 09/25/16 22:20 550 MG Lactulose (Chronulac Syrup) 30 gm QID PRN PO 09/22/16 10:30 10/23/16 10:29 09/22/16 11:31 30 GM Lactulose (Chronulac Syrup) 30 gm QID PO 09/23/16 09:00 10/23/16 08:59 Future Hold 09/25/16 08:10 30 GM Enteral Nutritional Formula (Novasource Renal) 1,000 ml UD PRN OG 09/23/16 09:00 10/23/16 08:59 09/23/16 12:00 1,000 ML Methylprednisolone Sodium Succinate 20 mg/Syringe 0.32 ml @ 1.5 mls/min DAILY IV 09/24/16 09:00 09/27/16 08:59 09/25/16 08:15 1.5 MLS/MIN Heparin Sodium (Porcine) (Heparin Sq 5000 Unit/0.5ml) 5,000 unit Q8 SQ 09/23/16 14:00 10/23/16 13:59 09/25/16 22:21 5,000 UNIT Fluconazole/ Sodium Chloride 200 mg/Prmx 100 ml @ 100 mls/hr DAILY@1800 IV 09/23/16 18:00 09/30/16 17:59 09/25/16 18:05 100 MLS/HR Phytonadione (Mephyton Tab) 5 mg DAILY PO 09/24/16 10:30 10/24/16 10:29 09/25/16 08:08 5 MG Piperacillin Sod/ Tazobactam Sod 4.5 gm/Dextrose 120 ml @ 30 mls/hr Q12@0200,1400 IV 09/24/16 14:00 09/27/16 13:59 09/25/16 14:12 30 MLS/HR Multivitamins (Multivitamin Tab) 1 tab QAM PO 09/25/16 09:00 10/25/16 08:59 09/25/16 08:09 1 TAB Heparin Sodium (Porcine) (Heparin 10 Unit/ ml 5 ml Flush) 5 ml PRN PRN FLUSH 09/25/16 02:00 10/25/16 01:59 Metoclopramide HCl (Reglan Inj) 10 mg Q6H PRN IV 09/25/16 12:45 10/25/16 12:44 09/25/16 14:12 10 MG Vital Signs: Date Time Temp Pulse Resp B/P (MAP) Pulse Ox O2 Delivery O2 Flow Rate FiO2 09/26/16 01:00 89 19 132/72 (92) 98 Nasal Cannula 3.0 09/26/16 00:40 95 Nasal Cannula 3.0 09/26/16 00:00 85 18 135/73 (93) 98 Nasal Cannula 3.0 09/25/16 23:00 83 18 134/72 (92) 98 Nasal Cannula 3.0 09/25/16 22:00 81 21 113/66 (82) 98 Nasal Cannula 3.0 09/25/16 21:00 86 16 127/72 (90) 98 Nasal Cannula 3.0 09/25/16 20:29 95 Nasal Cannula 3.0 09/25/16 20:00 36.5 84 19 137/76 (96) 97 Nasal Cannula 3.0 09/25/16 19:00 88 16 132/75 (94) 96 09/25/16 18:30 88 21 96 Nasal Cannula 3.0 09/25/16 18:00 91 21 117/63 (81) 09/25/16 17:30 99 24 09/25/16 17:00 90 18 119/76 (90) 97 09/25/16 16:30 90 18 95 09/25/16 16:05 95 Nasal Cannula 3.0 09/25/16 16:05 36.4 93 18 134/74 (94) 95 Nasal Cannula 3.0 09/25/16 15:00 91 23 126/67 (86) 92 09/25/16 14:00 79 25 86/65 (72) 100 09/25/16 12:25 36.8 78 113/45 (67) 09/25/16 12:10 78 113/45 09/25/16 12:00 100 Nasal Cannula 3.0 09/25/16 12:00 78 105/70 09/25/16 12:00 36.4 74 18 105/70 (82) 98 Nasal Cannula 3.0 09/25/16 11:45 76 100/63 09/25/16 11:30 77 112/62 09/25/16 11:15 76 124/72 09/25/16 11:00 76 105/65 09/25/16 10:45 75 113/73 09/25/16 10:30 78 102/57 09/25/16 10:15 75 97/61 09/25/16 10:00 74 122/67 09/25/16 10:00 75 20 122/67 (85) 98 09/25/16 09:45 76 110/69 09/25/16 09:30 74 126/67 09/25/16 09:15 58 100/47 09/25/16 09:04 53 121/64 09/25/16 08:50 36.5 65 129/66 (87) 09/25/16 08:00 36.6 62 20 108/48 (68) 94 Nasal Cannula 3.0 09/25/16 08:00 95 Nasal Cannula 3.0 09/25/16 06:00 36.5 68 16 117/52 (73) 100 Nasal Cannula 3.0 09/25/16 05:00 58 17 131/55 (80) 100 Nasal Cannula 3.0 09/25/16 04:31 95 Nasal Cannula 3.0 Laboratory Results: Last 24 Hours Test 09/25/16 05:50 09/25/16 09:19 09/25/16 17:34 White Blood Count 14.65 K/uL Red Blood Count 2.94 M/uL Hemoglobin 8.6 g/dL Hematocrit 26.1 % Mean Corpuscular Volume 88.8 fL Mean Corpuscular Hemoglobin 29.3 pg Mean Corpuscular Hemoglobin Concent 33.0 g/dl Platelet Count 92 K/uL Mean Platelet Volume 9.7 fL Neutrophils (%) (Auto) 86.5 % Lymphocytes (%) (Auto) 4.3 % Monocytes (%) (Auto) 4.9 % Eosinophils (%) (Auto) 1.5 % Basophils (%) (Auto) 0.1 % Neutrophils # (Auto) 12.67 K/uL Lymphocytes # (Auto) 0.63 K/uL Monocytes # (Auto) 0.72 K/uL Eosinophils # (Auto) 0.22 K/uL Basophils # (Auto) 0.01 K/uL RDW Standard Deviation 55.1 fL RDW Coefficient of Variation 17.6 % Immature Granulocyte % (Auto) 2.7 % Immature Granulocyte # (Auto) 0.40 K/uL Toxic Vacuolation 1+ Platelet Estimate DECREASED Ovalocytes 1+ Echinocytes 1+ Sodium Level 137 mmol/L Potassium Level 3.5 mmol/L Chloride Level 105 mmol/L Carbon Dioxide Level 25 mmol/L Anion Gap 7.0 mmol/L Blood Urea Nitrogen 20 mg/dl Creatinine 1.70 mg/dl Est Creatinine Clear Calc Drug Dose 38.3 ml/min Estimated GFR () 37.9 Estimated GFR (Non- 32.7 BUN/Creatinine Ratio 11.6 Random Glucose 117 mg/dl Calcium Level 8.8 mg/dl Phosphorus Level 3.3 mg/dl Magnesium Level 2.0 mg/dl Ammonia < 10.0 umol/L Procalcitonin 1.15 ng/ml Random Vancomycin Level 17.1 mcg/ml Bedside Glucose 267 mg/dl 141 mg/dl Resident Tracking Resident Involvement: Resident Care Provided Care Provided: Adult Hospital Medicine
[2016-09-26 05:51] LABS: HEMATOCRIT 28.5 % (37-47); MEAN CELL VOLUME 89.3 fL (80-100); MEAN CORPUSCULAR HEMOGLOBIN 28.8 pg (25-34); MEAN CORPUSCULAR HGB CONC 32.3 g/dl (32-36); MEAN PLATELET VOLUME 11.3 fL (7.4-10.4); PLATELET COUNT 148 K/uL (130-400); RED BLOOD COUNT 3.19 M/uL (4.2-5.4); WHITE BLOOD COUNT 24.15 K/uL (4.8-10.8)
[2016-09-26 05:55] LABS: CALCIUM 8.7 mg/dl (8.5-10.1); CREATININE 1.8 mg/dl (0.60-1.20); POTASSIUM 3.5 mmol/L (3.5-5.1)
[2016-09-26] MEDS: HEPARIN SOD 5000 UNIT/0.5 ML CARP SQ SCH ×3 (06:00→23:00)
[2016-09-26] MEDS: PIPERACILL/TAZOBAC IV 4.5 GM in DEXTROSE 5% 100ML IV SCH ×3 (06:00→17:47)
[2016-09-26 06:13] LABS: BASO % 0.2 %; BASO ABS # 0.04 K/uL (0-0.2); COMPLETE YES; EOS % 1.9 %; IG% 5.4 %; LYMPH % 3.9 %; LYMPH ABS # 0.94 K/uL (1.2-3.4); MONO % 5.6 %; OVALOCYTES 1+; POLYCHROMASIA 1+; SCHISTOCYTES OCCASIONAL; TEAR DROP CELLS 1+
[2016-09-26 07:56] LABS: MAGNESIUM 1.9 mg/dl (1.8-2.4); PHOSPHORUS 2.9 mg/dl (2.5-4.9)
[2016-09-26] MEDS: MIDODRINE 2.5 MG TAB PO SCH ×3 (08:07→17:48)
[2016-09-26] MEDS: PANTOprazole INJ 40 MG in SYRINGE 0 ML IV SCH (08:08)
[2016-09-26] MEDS: METHYLPREDNISOLONE IV 20 MG in SYRINGE 0 ML IV SCH (08:08)
[2016-09-26] MEDS: MICONAZOLE NITRATE POWDER 43 GM EXT SCH ×2 (08:08→22:48)
[2016-09-26] MEDS: PHYTONADIONE 5 MG TAB PO SCH (08:09)
[2016-09-26] MEDS: RIFAXIMIN TAB 550 MG TAB PO SCH ×2 (08:10→22:48)
[2016-09-26] MEDS: MULTIVITAMIN TAB PO SCH (08:10)
--- NOTE | 2016-09-26 09:09 | Progress Note ---
Internal Med Progress Note Date of Service: Sep 26, 2016. Provider Documentation: SUBJECTIVE: Seen and examined at bedside. More alert, awake Decreased attention span but improving Denies chest pain, SOB, abd pain Offers no complaints OBJECTIVE: Vital Signs-as noted below Physical Exam: General Appearance:Lethargic Head: normocephalic, Atraumatic Eyes: normal inspection, icteric Neck: supple, Trachea midline Respiratory/Chest: Decreased breath sounds, CTA Cardiovascular: S1, S2, + murmur Abdomen/GI:Soft, mildly distended, Bowel sounds present Extremities/Musculoskelatal:normal inspection, no edema Neurologic/Psych:lethargic Skin: normal color, warm Lab data as noted below. ASSESSMENT & PLAN: Patient is a 60 yr female admitted for R humerus fracture, s/p reverse total shoulder arthroplasty ACUTE HYPOXIC AND HYPERCAPNIC RESPIRATORY FAILURE PULMONARY EDEMA POSSIBLE ASPIRATION PNEUMONIA Most likely secondary to volume overload from diastolic heart failure Chest x-ray shows bilateral infiltrates, probably pulmonary edema (although other processes are possible). Repeat CXR:Improved aeration within the lungs suggestive of resolving pulmonary edema S/P IV furosemide Dialysis for volume overload being managed by Nephrology Continue Levalbuterol neb PRN Intubated on 09/20 and extubated on 09/24 S/P Bronchoscopy on 09/21 Follow up bronchial washings studies: Melissa and [employer] pending Continue : Vanco, Zosyn, Diflucan Bubble Study:no interatrial shunt and no findings to suggest hepatopulmonary shunt ECHO from 12/22/15: EF:55-59% H/O P. ATRIAL TACHYCARDIA Currently rate controlled Was on propranolol at home ENCEPHALOPATHY: Likely multifactorial: medications, hepatic encephalopathy, hypercapnia EEG: indicates moderate encephalopathy of nonspecific etiology CT head:Mild heterogeneity of the periventricular deep white matter regions possibly secondary to small vessel change Neurology consulted Mental status Improving CARLOS ENRIQUE/ATN Vs HRS CKD III Cr:1.8 stable Ketorolac discontinued. Initially received IVFs and hydrocortisone. Appreciate Nephrology, GI help Continue midodrine, octreotide for hepatorenal syndrome. Requiring daily dialysis Planned for tunneled catheter placement BILIARY CIRRHOSIS Appreciate GI input continue lactulose, Rifaximin for hepatic encephalopathy. Ammonia level: 59 >>>25 >>>10 ABD USD: no ascites Continue Midodrine Octreotide discontinued Needs to have Hepatology eval for possible liver/kidney transplant CHRONIC STEROID THERAPY Chronic prednisone therapy for chronic pericarditis. S/P IV hydrocortisone S/P Right reverse total shoulder arthroplasty, removal of deep hardware right proximal humerus, debridement of olecranon ulcer right elbow POD # 9 Orthopedics following DVT Px: SCD's PROCEDURES: CT head: 1. Mild heterogeneity of the periventricular deep white matter regions possibly secondary to small vessel change. 2. Limited study technically due to patient motion. 3. Mild mucosal thickening of the mastoid air cells. 4. No evidence for acute intracranial hemorrhage. Vital Signs: Date Time Temp Pulse Resp B/P (MAP) Pulse Ox O2 Delivery O2 Flow Rate FiO2 09/26/16 10:00 80 15 100/51 (67) 92 09/26/16 09:00 83 19 144/60 (88) 92 09/26/16 08:00 36.8 80 18 120/58 (78) 95 Room Air 09/26/16 08:00 95 Nasal Cannula 09/26/16 07:00 79 21 139/59 (85) 97 09/26/16 06:00 79 20 133/59 (83) 99 09/26/16 05:28 82 18 115/59 (77) 97 09/26/16 04:32 95 Nasal Cannula 3.0 09/26/16 04:00 80 18 144/79 (100) 98 09/26/16 03:00 85 18 136/72 (93) 98 09/26/16 02:00 88 18 128/73 (91) 97 09/26/16 01:00 89 19 132/72 (92) 98 Nasal Cannula 3.0 09/26/16 00:40 95 Nasal Cannula 3.0 09/26/16 00:00 85 18 135/73 (93) 98 Nasal Cannula 3.0 09/25/16 23:00 83 18 134/72 (92) 98 Nasal Cannula 3.0 09/25/16 22:00 81 21 113/66 (82) 98 Nasal Cannula 3.0 09/25/16 21:00 86 16 127/72 (90) 98 Nasal Cannula 3.0 09/25/16 20:29 95 Nasal Cannula 3.0 09/25/16 20:00 36.5 84 19 137/76 (96) 97 Nasal Cannula 3.0 09/25/16 19:00 88 16 132/75 (94) 96 09/25/16 18:30 88 21 96 Nasal Cannula 3.0 09/25/16 18:00 91 21 117/63 (81) 09/25/16 17:30 99 24 09/25/16 17:00 90 18 119/76 (90) 97 09/25/16 16:30 90 18 95 09/25/16 16:05 95 Nasal Cannula 3.0 09/25/16 16:05 36.4 93 18 134/74 (94) 95 Nasal Cannula 3.0 09/25/16 15:00 91 23 126/67 (86) 92 09/25/16 14:00 79 25 86/65 (72) 100 09/25/16 12:25 36.8 78 113/45 (67) 09/25/16 12:10 78 113/45 09/25/16 12:00 100 Nasal Cannula 3.0 09/25/16 12:00 78 105/70 09/25/16 12:00 36.4 74 18 105/70 (82) 98 Nasal Cannula 3.0 09/25/16 11:45 76 100/63 09/25/16 11:30 77 112/62 09/25/16 11:15 76 124/72 09/25/16 11:00 76 105/65 Lab Results: Results Past 24 Hours Test 09/25/16 17:34 09/26/16 05:03 09/26/16 07:17 Range/Units Bedside Glucose 141 70-90 mg/dl White Blood Count 24.15 4.8-10.8 K/uL Red Blood Count 3.19 4.2-5.4 M/uL Hemoglobin 9.2 12.0-16.0 g/dL Hematocrit 28.5 37-47 % Mean Corpuscular Volume 89.3 80-100 fL Mean Corpuscular Hemoglobin 28.8 25-34 pg Mean Corpuscular Hemoglobin Concent 32.3 32-36 g/dl Platelet Count 148 130-400 K/uL Mean Platelet Volume 11.3 7.4-10.4 fL Neutrophils (%) (Auto) 83.0 % Lymphocytes (%) (Auto) 3.9 % Monocytes (%) (Auto) 5.6 % Eosinophils (%) (Auto) 1.9 % Basophils (%) (Auto) 0.2 % Neutrophils # (Auto) 20.06 1.4-6.5 K/uL Lymphocytes # (Auto) 0.94 1.2-3.4 K/uL Monocytes # (Auto) 1.35 0.11-0.59 K/uL Eosinophils # (Auto) 0.46 0-0.5 K/uL Basophils # (Auto) 0.04 0-0.2 K/uL RDW Standard Deviation 55.8 36.4-46.3 fL RDW Coefficient of Variation 18.3 11.5-14.5 % Immature Granulocyte % (Auto) 5.4 % Immature Granulocyte # (Auto) 1.30 0.00-0.02 K/uL Nucleated RBC Absolute Count (auto) 0.02 0-0 K/uL Nucleated Red Blood Cells % 0.1 % Polychromasia 1+ Basophilic Stippling 1+ Tear Drop Cells 1+ Ovalocytes 1+ Schistocytes OCCASIONAL Sodium Level 135 136-145 mmol/L Potassium Level 3.5 3.5-5.1 mmol/L Chloride Level 102 98-107 mmol/L Carbon Dioxide Level 26 21-32 mmol/L Anion Gap 7.0 3-11 mmol/L Blood Urea Nitrogen 20 7-18 mg/dl Creatinine 1.80 0.60-1.20 mg/dl Est Creatinine Clear Calc Drug Dose 35.2 ml/min Estimated GFR () 35.3 Estimated GFR (Non- 30.5 BUN/Creatinine Ratio 11.0 10-20 Random Glucose 133 70-99 mg/dl Calcium Level 8.7 8.5-10.1 mg/dl Random Vancomycin Level 24.6 mcg/ml Phosphorus Level 2.9 2.5-4.9 mg/dl Magnesium Level 1.9 1.8-2.4 mg/dl
--- NOTE | 2016-09-26 10:32 | Orthopedic Progress Note ---
Orthopedic Progress Note Date of Service Sep 26, 2016. Subjective Post OP Day: 8 Additional Notes: Patient was lethargic on exam. Not able to go through review of systems. She was able to open her eyes and briefly stated that she "wants to go home." Objective capillary refill less than 2 sec., incision C/D/I Patient was lethargic on exam. She was able to open her eyes and spoke briefly. She did answer yes and no a few times to simple questions. Date Time Temp Pulse Resp B/P (MAP) Pulse Ox O2 Delivery O2 Flow Rate FiO2 09/26/16 10:00 80 15 100/51 (67) 92 09/26/16 09:00 83 19 144/60 (88) 92 09/26/16 08:00 36.8 80 18 120/58 (78) 95 Room Air 09/26/16 08:00 95 Nasal Cannula 09/26/16 07:00 79 21 139/59 (85) 97 09/26/16 06:00 79 20 133/59 (83) 99 09/26/16 05:28 82 18 115/59 (77) 97 09/26/16 04:32 95 Nasal Cannula 3.0 09/26/16 04:00 80 18 144/79 (100) 98 09/26/16 03:00 85 18 136/72 (93) 98 09/26/16 02:00 88 18 128/73 (91) 97 09/26/16 01:00 89 19 132/72 (92) 98 Nasal Cannula 3.0 09/26/16 00:40 95 Nasal Cannula 3.0 09/26/16 00:00 85 18 135/73 (93) 98 Nasal Cannula 3.0 09/25/16 23:00 83 18 134/72 (92) 98 Nasal Cannula 3.0 09/25/16 22:00 81 21 113/66 (82) 98 Nasal Cannula 3.0 09/25/16 21:00 86 16 127/72 (90) 98 Nasal Cannula 3.0 09/25/16 20:29 95 Nasal Cannula 3.0 09/25/16 20:00 36.5 84 19 137/76 (96) 97 Nasal Cannula 3.0 09/25/16 19:00 88 16 132/75 (94) 96 09/25/16 18:30 88 21 96 Nasal Cannula 3.0 09/25/16 18:00 91 21 117/63 (81) 09/25/16 17:30 99 24 09/25/16 17:00 90 18 119/76 (90) 97 09/25/16 16:30 90 18 95 09/25/16 16:05 95 Nasal Cannula 3.0 09/25/16 16:05 36.4 93 18 134/74 (94) 95 Nasal Cannula 3.0 09/25/16 15:00 91 23 126/67 (86) 92 09/25/16 14:00 79 25 86/65 (72) 100 09/25/16 12:25 36.8 78 113/45 (67) 09/25/16 12:10 78 113/45 09/25/16 12:00 100 Nasal Cannula 3.0 09/25/16 12:00 78 105/70 09/25/16 12:00 36.4 74 18 105/70 (82) 98 Nasal Cannula 3.0 09/25/16 11:45 76 100/63 09/25/16 11:30 77 112/62 09/25/16 11:15 76 124/72 09/25/16 11:00 76 105/65 09/25/16 10:45 75 113/73 09/25/16 10:30 78 102/57 Laboratory Results 24 Hours: Test 09/26/16 05:03 White Blood Count 24.15 K/uL Red Blood Count 3.19 M/uL Hemoglobin 9.2 g/dL Hematocrit 28.5 % Mean Corpuscular Volume 89.3 fL Mean Corpuscular Hemoglobin 28.8 pg Mean Corpuscular Hemoglobin Concent 32.3 g/dl Platelet Count 148 K/uL Mean Platelet Volume 11.3 fL Neutrophils (%) (Auto) 83.0 % Lymphocytes (%) (Auto) 3.9 % Monocytes (%) (Auto) 5.6 % Eosinophils (%) (Auto) 1.9 % Basophils (%) (Auto) 0.2 % Neutrophils # (Auto) 20.06 K/uL Lymphocytes # (Auto) 0.94 K/uL Monocytes # (Auto) 1.35 K/uL Eosinophils # (Auto) 0.46 K/uL Basophils # (Auto) 0.04 K/uL Assessment & Plan Assessment: POD #8 s/p Right reverse total shoulder arthroplasty, removal of deep hardware right proximal humerus, debridement of olecranon ulcer right elbow Patient was extubated yesterday and tolerated it well. patient was on dialysis upon exam. Dressing is to be removed today from right shoulder. PER [employer]; Neuro - CAM positive. RASS -1 - Fentanyl and Versed discontinued at 09/21/16 @ 04:51, slow improvement in RASS since. Now responding to questions via verbally with yes/no responses, improved alertness - Neurology consulted. - Continue to monitor for changes in RASS CV - SBP noted to be 110-140's. Levophed ordered PRN during dialysis if needed only , but thus far, patient has not required it - HR stable in 60s-80s Resp - Extubated yesterday, saturating well on 3L O2 via nasal cannula, saturating 98 %. - Arm restraints ordered to prevent pulling Coresafe out/NC off GI/Nutrition - Has hepatorenal syndrome. Patient previously on transplant list but was too well. Current MELD score 24. GI consulted. - Ammonia remains WNL. Continue rifaximin, and midodrine. Discontinue octreotide and scheduled lactulose held for now as increased nutrition will also contribute to increased BM - Continue to trend LFTS every other day - GI prophylaxis: IV pantoprazole 40mg BID - Enteral nutrition Novasource renal feeds increased to 30cc/hr target. Continue multivitamin and vitamin K supplements - Family may consider transfer to [facility] for transplant evaluation as patient continues to improve Renal/Fluid - Ongoing dialysis for ultrafiltration and toxin removal - 11.7L removed to date. Creatinine elevated but stable. - Limiting fluids secondary to fluid overload. Trending BMP - Plans for removal of trialysis today. Patient for tunneled catheter insertion on 09/27/16. Vascular consulted. - Continue strict I&O's - Phosphorus supplemented, now WNL ID - Afebrile with downtrending leukocytosis. - Bronchoscopy samples positive for kristen albicans. Fungal and acid fast cultures pending - Continue coverage with Zosyn and Vancomycin (Day 6/7) + IV fluconazole (Day 3/ 7) Endo - Continue methylprednisone 20mg BID x 5 days, then stop 09/27/16 - Continue monitoring blood glucose. Recent levels have been within acceptable ranges. Heme - Leukocytosis improved, anemia stable. - Thrombocytopenia continues, but no evidence of thrombosis, HIT score 2 - <5% probability of HIT. Continue to monitor. - Continue DVT prophylaxis with heparin SC 5000 units BID. Access - 2x peripheral IV, 1 left upper arm midline Consults & Procedures Consultants: Gastroenterology: Dr. Noel Neurology: Dr. Dunn Nephrology: [facility] Orthopedics: Dr. Fontenot Wound care: Dr. Yeung Discharge Planning Discharge Planning: uncertain
[2016-09-26] MEDS: METOCLOPRAMIDE HCL INJ 5 MG/ML 2 ML VIAL IV PRN (11:21)
--- NOTE | 2016-09-26 14:50 | Pharmacy Progress Note ---
Pharmacy Antibiotic Prog Note Date of Service Sep 26, 2016. Subjective The patient is currently receiving vancomycin prn levels/HD schedule The patient is currently on day # 7 of vancomycin IV therapy. Objective Height (Feet): 5 Height (Inches): 5.00 Weight (Kilograms): 77.700 Lab Results (24hrs): Test 09/25/16 17:34 09/26/16 05:03 09/26/16 07:17 09/26/16 12:00 Bedside Glucose 141 mg/dl (70-90) 153 mg/dl (70-90) White Blood Count 24.15 K/uL (4.8-10.8) Red Blood Count 3.19 M/uL (4.2-5.4) Hemoglobin 9.2 g/dL (12.0-16.0) Hematocrit 28.5 % (37-47) Mean Corpuscular Volume 89.3 fL (80-100) Mean Corpuscular Hemoglobin 28.8 pg (25-34) Mean Corpuscular Hemoglobin Concent 32.3 g/dl (32-36) Platelet Count 148 K/uL (130-400) Mean Platelet Volume 11.3 fL (7.4-10.4) Neutrophils (%) (Auto) 83.0 % Lymphocytes (%) (Auto) 3.9 % Monocytes (%) (Auto) 5.6 % Eosinophils (%) (Auto) 1.9 % Basophils (%) (Auto) 0.2 % Neutrophils # (Auto) 20.06 K/uL (1.4-6.5) Lymphocytes # (Auto) 0.94 K/uL (1.2-3.4) Monocytes # (Auto) 1.35 K/uL (0.11-0.59) Eosinophils # (Auto) 0.46 K/uL (0-0.5) Basophils # (Auto) 0.04 K/uL (0-0.2) RDW Standard Deviation 55.8 fL (36.4-46.3) RDW Coefficient of Variation 18.3 % (11.5-14.5) Immature Granulocyte % (Auto) 5.4 % Immature Granulocyte # (Auto) 1.30 K/uL (0.00-0.02) Nucleated RBC Absolute Count (auto) 0.02 K/uL (0-0) Nucleated Red Blood Cells % 0.1 % Polychromasia 1+ Basophilic Stippling 1+ Tear Drop Cells 1+ Ovalocytes 1+ Schistocytes OCCASIONAL Sodium Level 135 mmol/L (136-145) Potassium Level 3.5 mmol/L (3.5-5.1) Chloride Level 102 mmol/L (98-107) Carbon Dioxide Level 26 mmol/L (21-32) Anion Gap 7.0 mmol/L (3-11) Blood Urea Nitrogen 20 mg/dl (7-18) Creatinine 1.80 mg/dl (0.60-1.20) Est Creatinine Clear Calc Drug Dose 35.2 ml/min Estimated GFR () 35.3 Estimated GFR (Non- 30.5 BUN/Creatinine Ratio 11.0 (10-20) Random Glucose 133 mg/dl (70-99) Calcium Level 8.7 mg/dl (8.5-10.1) Random Vancomycin Level 24.6 mcg/ml Phosphorus Level 2.9 mg/dl (2.5-4.9) Magnesium Level 1.9 mg/dl (1.8-2.4) Assessment & Plan Assessment * 60 yo F with PNA - started on Zosyn, vancomycin (day 7 today) with fluconazole added 2nd isolation of Melissa in cultures (day 4 today) * Temporary HD catheter placed 09/20. Has been receiving HD daily (09/20-09/25). Spoke w RN (Tahir) - unlikely to have HD today. * Goal pre-HD level 15-20 mcg/mL (would prefer to be in upper end of this range) * Level this AM supratherapeutic at 24.g mcg/mL. Even if pt was dialyzed for 3 hr today (similar to previous days), AM level unlikely to be significantly subtherapeutic. Plan is to d/c vancomycin tomorrow per critical care note. Plan * No vancomycin required today * Random level in AM in case vancomycin is continued Pharmacy will continue to follow and will adjust dose/frequency as necessary. Thank you
[2016-09-26] MEDS: FLUCONAZOLE 200MG / NSS IV SCH (16:25)
[2016-09-26] MEDS ORDERED: NOVASOURCE RENAL 1000ML BAG ND SCH (18:00)
[2016-09-27] VITALS (50 sets, daily range): BP systolic 85–153; BP diastolic 40–103; PULSE 75–98; TEMP 36.4–37; O2SAT 89–96
[2016-09-27] MEDS: PIPERACILL/TAZOBAC IV 4.5 GM in DEXTROSE 5% 100ML IV SCH (04:19)
[2016-09-27] MEDS: HEPARIN SOD 5000 UNIT/0.5 ML CARP SQ SCH ×3 (06:29→22:31)
[2016-09-27 06:34] LABS: BUN/CREATININE RATIO 14.2 (10-20); CALCIUM 8.7 mg/dl (8.5-10.1); CREATININE 2.5 mg/dl (0.60-1.20); POTASSIUM 3.3 mmol/L (3.5-5.1)
[2016-09-27 07:25] LABS: HEMATOCRIT 26.4 % (37-47); MEAN CELL VOLUME 90.4 fL (80-100); MEAN CORPUSCULAR HEMOGLOBIN 30.1 pg (25-34); MEAN CORPUSCULAR HGB CONC 33.3 g/dl (32-36); PLATELET COUNT 121 K/uL (130-400); RED BLOOD COUNT 2.92 M/uL (4.2-5.4); WHITE BLOOD COUNT 28.98 K/uL (4.8-10.8)
[2016-09-27 07:26] LABS: BASO % 0.1 %; BASO ABS # 0.04 K/uL (0-0.2); COMPLETE YES; EOS % 0.4 %; HYPOCHROMIA PRESENT; LYMPH % 3.2 %; LYMPH ABS # 0.94 K/uL (1.2-3.4); MONO % 5.6 %; NEUT % 85.7 %; POIKILOCYTOSIS PRESENT; POLYCHROMASIA 1+
[2016-09-27] MEDS ORDERED: ONDANSETRON INJ 2 MG/ML 2 ML VIAL IV PRN (07:45)
[2016-09-27] MEDS ORDERED: FENTANYL CITRATE INJ 50 MCG/1 ML 2 ML VIAL IV PRN (07:45)
[2016-09-27] MEDS ORDERED: ATROPINE SULFATE 0.1 MG/ML 5ML SYR IV PRN (07:45)
--- NOTE | 2016-09-27 08:01 | Critical Care Progress Note ---
Critical Care Progress Note Date of Service Sep 27, 2016. ICU Day ICU Day Number: [address] Cummings Subjective Patient awake, and alert and carrying a conversation. She admits to frustration of still being here. She denies chest pain, shoulder pain, abdominal pain. She denies SOB, palpitations, or nausea. She understands that she is getting a PermCath inserted today to help her kidneys. She states she has no further questions. Objective GENERAL: Responsive, lying in bed, no oxygen support on and saturating 94%, Corsafe still in place. HEAD: Normocephalic, atraumatic. EYES: Normal sclera and conjunctiva. PERRL. EOMI. Mild scleral icterus. Conjunctiva normal. NECK: Supple, no adenopathy. Able to hold neck up when pillow is removed. LUNGS: Normal chest wall mechanics, poor air entry. No crackles, or wheezes. No dyspnea upon lying flat HEART: S1 and S2 normal, systolic murmur appreciated in the aortic region ABDOMEN: abdomen soft - no ascites appreciated, bowel sounds present, no masses , no rebound or guarding. SKIN: Warm, pink, dry. No rashes. Mild jaundice. Bruising on left arm from previous trial of PICC insertion. Evidence of venostasis on lower limbs. Ulcer on right elbow. EXTREMITIES: Killian exposed on right arm from shoulder surgery. Bilateral lower extremity edema. Mits removed. Patient able to wiggle fingers and toes. NEURO: A+Ox3, Pupils equal. Neck movement, including ability to nod/shake her head. Engaging and asking questions today. Current SOFA Score SOFA Score Response (Comments) Value Platelets (x10) < 100 2 Bilirubin (mg/dL) 2.0 - 5.9 2 [place] Coma Score 10 - 12 2 Level of Hypotension No Hypotension 0 Creatinine (mg/dL) 1.2 - 1.9 1 Total 7 Assessment & Plan 60 year old female post op from orthopedic surgery with altered mental status secondary to hepatorenal syndrome, requiring intubation for impending hypoxic and hypercapnic respiratory failure Neuro - CAM negative - Fentanyl and Versed discontinued at 09/21/16 @ 04:51, slow improvement in RASS. Very alert and responsive today. Anesthesia requested to avoid benzodiazepines if possible for PermCath insertion - Mirtazapine 7.5mg (renally dosed) started today for depression - Continue to monitor for changes in RASS CV - SBP noted to be 100-130's. Levophed ordered PRN during dialysis if needed only , but thus far, patient has not required it - HR stable in 70s-80s Resp - On RA, saturating 96% while sitting up, 94% while lying flat. GI/Nutrition - Has hepatorenal syndrome. Patient previously on transplant list but was too well. Current MELD score 24. GI consulted. - Ammonia remains WNL. Continue rifaximin, and midodrine. Lactulose PRN for decreased bowel movements - Continue to trend LFTS every other day - Enteral nutrition Novasource renal feeds reached to 30cc/hr target. Continue overnights with PO renal diet during the day. NPO this AM for PermCath insertion. Metoclopramide 5mg (renally dosed) PRN nausea - Continue multivitamin and vitamin K supplements - Family may consider transfer to [facility] [place] for transplant evaluation as patient continues to improve Renal/Fluid - Ongoing dialysis for ultrafiltration and toxin removal - 11.7L removed to date. Creatinine elevated but stable. Plans for dialysis today - Limiting fluids secondary to fluid overload. Trending BMP - Patient scheduled for tunneled catheter insertion today. Vascular consulted. - Continue strict I&O's ID - Afebrile with elevated leukocytosis. - Bronchoscopy samples positive for kristen albicans. Fungal and acid fast cultures pending - Completed Zosyn and Vancomycin (Day 7/7) + IV fluconazole (Day 5/7) - With ongoing leukocytosis, check for C.diff toxin Endo - Transition from methylprednisone 20mg BID to prednisone 5mg daily starting tomorrow. Patient on chronic prednisone 1mg daily. - Continue monitoring blood glucose. Recent levels have been within acceptable ranges. Heme - Leukocytosis continues to elevate, anemia stable. Thrombocytopenia improved. Continue to monitor. - Continue DVT prophylaxis with heparin SC 5000 units BID. MSK - With improved alertness, spoke to ortho Liane HEREDIA who will provide guidelines/ exercises recommendations on appropriate right arm rehab - PT/OT consulted Access - 2x peripheral IV, 1 left upper arm midline Resident Physician Supervision Note: I was present with Dr. Cindy Weaver during the history and exam. I discussed the case with the resident and agree with the findings and plan as documented in the note. Any exceptions or clarifications are listed here: Patient with toxic-metabolic encephalopathy, secondary to liver failure (due to DIAZ), and perhaps a component of renal failure, as well as delayed clearance of medication. Steadily improving S/p PermCath today, now undergoing hemodialysis Started eating a partial diet. Wants to try without the NGT. Will remove it today and evaluate her PO intake until tomorrow. May need to reinsert it. Will hold off Remeron, may accumulate. Finishing course of Abx. On Diflucan for now Transition Solumedrol to Prednisone 5 mg. Potential transfer to tertiary [facility] for liver/kidney transplant Documented By: Ayden Cummings MD Critical care time spent with patient and family, greater than 30 minutes [place] Score Date Score Was Generated: Sep 24, 2016 Consults & Procedures Consultants: Gastroenterology: Dr. Noel Neurology: Dr. Dunn Nephrology: Dr. Thakkar Orthopedics: Dr. Fontenot Vascular: Dr. Rouse Wound care: Dr. Yeung Procedures: 09/17/16: Right reverse total shoulder arthroplasty, removal of deep hardware right proximal humerus, debridement of olecranon ulcer right elbow 09/20/16: Trialysis central catheter inserted 09/20/16: Echo 09/20/16: Intubated 09/21/16: Bronchoscopy 09/24/16: Midline inserted 09/24/16: Extubated 09/25/16: Trialysis removed Data Medications: Current Inpatient Medications Medications (Trade) Dose Ordered Sig/Michael Route Start Time Stop Time Status Last Admin Dose Admin Miconazole Nitrate (Desenex Powder) 1 appln BID EXT 09/17/16 21:00 10/17/16 20:59 09/26/16 22:48 1 APPLN Midodrine (Proamatine Tab) 5 mg TID@0800,1200,1800 PO 09/19/16 18:00 10/19/16 17:59 09/26/16 17:48 5 MG Levalbuterol (Xopenex 0.63 Mg/ 3 Ml Neb) 0.63 mg Q6H PRN INH 09/20/16 08:30 10/20/16 08:29 Pantoprazole Sodium 40 mg/ Syringe 10 ml @ 5 mls/min DAILY IV 09/21/16 09:00 10/21/16 08:59 09/26/16 08:08 5 MLS/MIN Piperacillin Sod/ Tazobactam Sod (Consult) 1 ea UD PRN N/A 09/20/16 21:15 10/20/16 21:14 Vancomycin HCl (Consult) 1 ea UD PRN N/A 09/20/16 21:45 10/20/16 21:44 Midazolam HCl (Versed Inj) 2.5 mg Q1H PRN IV 09/20/16 21:45 10/20/16 21:44 Future Hold 09/21/16 04:13 2.5 MG Fentanyl Citrate (Fentanyl Inj) 50 mcg Q1H PRN IV 09/20/16 21:45 10/04/16 21:44 Future Hold 09/21/16 04:14 50 MCG Rifaximin (Xifaxan Tab) 550 mg BID PO 09/22/16 21:00 10/22/16 20:59 09/26/16 22:48 550 MG Lactulose (Chronulac Syrup) 30 gm QID PRN PO 09/22/16 10:30 10/23/16 10:29 09/22/16 11:31 30 GM Lactulose (Chronulac Syrup) 30 gm QID PO 09/23/16 09:00 10/23/16 08:59 Future Hold 09/25/16 08:10 30 GM Methylprednisolone Sodium Succinate 20 mg/Syringe 0.32 ml @ 1.5 mls/min DAILY IV 09/24/16 09:00 09/27/16 08:59 09/26/16 08:08 1.5 MLS/MIN Heparin Sodium (Porcine) (Heparin Sq 5000 Unit/0.5ml) 5,000 unit Q8 SQ 09/23/16 14:00 10/23/16 13:59 09/27/16 06:29 5,000 UNIT Fluconazole/ Sodium Chloride 200 mg/Prmx 100 ml @ 100 mls/hr DAILY@1800 IV 09/23/16 18:00 09/30/16 17:59 09/26/16 16:25 100 MLS/HR Phytonadione (Mephyton Tab) 5 mg DAILY PO 09/24/16 10:30 10/24/16 10:29 09/26/16 08:09 5 MG Piperacillin Sod/ Tazobactam Sod 4.5 gm/Dextrose 120 ml @ 30 mls/hr Q12@0200,1400 IV 09/24/16 14:00 8/21/17 13:59 09/27/16 04:19 30 MLS/HR Multivitamins (Multivitamin Tab) 1 tab QAM PO 09/25/16 09:00 10/25/16 08:59 09/26/16 08:10 1 TAB Heparin Sodium (Porcine) (Heparin 10 Unit/ ml 5 ml Flush) 5 ml PRN PRN FLUSH 09/25/16 02:00 10/25/16 01:59 Metoclopramide HCl (Reglan Inj) 10 mg Q6H PRN IV 09/25/16 12:45 10/25/16 12:44 09/26/16 11:21 10 MG Enteral Nutritional Formula (Novasource Renal) 1,000 ml UD ND 09/26/16 18:00 10/26/16 17:59 09/26/16 17:47 1,000 ML Fentanyl Citrate (Fentanyl Inj) 25 mcg Q5M PRN IV 09/27/16 07:45 09/28/16 07:44 UNV Ondansetron HCl (Zofran Inj) 4 mg ONE PRN IV 09/27/16 07:45 UNV Atropine Sulfate (Atropine Sulfate 0.1MG/Ml Inj) 0.5 mg Q1M PRN IV 09/27/16 07:45 09/28/16 07:44 UNV Vital Signs: Date Time Temp Pulse Resp B/P (MAP) Pulse Ox O2 Delivery O2 Flow Rate FiO2 09/27/16 06:00 81 16 127/62 (83) 92 Room Air 09/27/16 05:00 80 16 108/65 (79) 92 Room Air 09/27/16 04:07 94 Room Air 09/27/16 04:00 82 16 103/57 (72) 92 Room Air 09/27/16 03:00 79 15 113/49 (70) 92 Room Air 09/27/16 02:00 81 16 114/54 (74) 91 Room Air 09/27/16 01:00 76 17 108/50 (69) 92 Room Air 09/27/16 00:24 94 Room Air 09/27/16 00:00 75 15 120/62 (81) 92 Room Air 09/26/16 23:00 70 17 126/70 (88) 90 Room Air 09/26/16 22:00 73 16 121/60 (80) 92 Room Air 09/26/16 21:00 75 16 122/55 (77) 92 Room Air 09/26/16 20:30 94 Room Air 30 09/26/16 20:00 36.7 80 14 121/49 (73) 93 Room Air 09/26/16 19:00 74 18 121/55 (77) 93 09/26/16 17:01 77 16 124/66 (85) 94 Room Air 09/26/16 17:00 78 16 94 09/26/16 16:00 78 16 111/52 (71) 92 09/26/16 15:22 92 Room Air 09/26/16 15:00 36.7 81 16 127/55 (79) 91 09/26/16 14:00 78 18 122/63 (82) 93 09/26/16 13:00 79 14 121/60 (80) 91 Room Air 09/26/16 12:00 92 Room Air 09/26/16 12:00 36.8 78 13 147/59 (88) 93 09/26/16 11:00 81 19 127/60 (82) 91 09/26/16 10:48 89 09/26/16 10:00 80 15 100/51 (67) 92 09/26/16 09:00 83 19 144/60 (88) 92 09/26/16 08:00 36.8 80 18 120/58 (78) 95 Room Air 09/26/16 08:00 95 Nasal Cannula Laboratory Results: Last 24 Hours Test 09/26/16 12:00 09/27/16 05:45 Bedside Glucose 153 mg/dl White Blood Count 28.98 K/uL Red Blood Count 2.92 M/uL Hemoglobin 8.8 g/dL Hematocrit 26.4 % Mean Corpuscular Volume 90.4 fL Mean Corpuscular Hemoglobin 30.1 pg Mean Corpuscular Hemoglobin Concent 33.3 g/dl Platelet Count 121 K/uL Neutrophils (%) (Auto) 85.7 % Lymphocytes (%) (Auto) 3.2 % Monocytes (%) (Auto) 5.6 % Eosinophils (%) (Auto) 0.4 % Basophils (%) (Auto) 0.1 % Neutrophils # (Auto) 24.80 K/uL Lymphocytes # (Auto) 0.94 K/uL Monocytes # (Auto) 1.63 K/uL Eosinophils # (Auto) 0.11 K/uL Basophils # (Auto) 0.04 K/uL RDW Standard Deviation 58.5 fL RDW Coefficient of Variation 19.1 % Immature Granulocyte % (Auto) 5.0 % Immature Granulocyte # (Auto) 1.46 K/uL Polychromasia 1+ Hypochromasia PRESENT Poikilocytosis PRESENT Sodium Level 134 mmol/L Potassium Level 3.3 mmol/L Chloride Level 101 mmol/L Carbon Dioxide Level 24 mmol/L Anion Gap 9.0 mmol/L Blood Urea Nitrogen 36 mg/dl Creatinine 2.50 mg/dl Est Creatinine Clear Calc Drug Dose 25.8 ml/min Estimated GFR () 23.8 Estimated GFR (Non- 20.5 BUN/Creatinine Ratio 14.2 Random Glucose 160 mg/dl Calcium Level 8.7 mg/dl Chemistry Specimen Hemolysis Random Vancomycin Level 19.9 mcg/ml Resident Tracking Resident Involvement: Resident Care Provided Care Provided: Adult Hospital Medicine
--- NOTE | 2016-09-27 08:40 | Orthopedic Progress Note ---
Orthopedic Progress Note Date of Service Sep 27, 2016. Subjective Post OP Day: Reports: feeling well, Denies: chest pain, SOB, nausea / vomiting, light headedness, calf pain Additional Notes: PATIENT IS SITTING UP THIS MORNING. SHE IS ALERT AND RESPONDS APPROPRIATELY. SHE IS SCHEDULES FOR DIALYSIS TOMORROW. Objective calves soft nontender, N/V intact, capillary refill less than 2 sec., incision C /D/I, A&O x3 Date Time Temp Pulse Resp B/P (MAP) Pulse Ox O2 Delivery O2 Flow Rate FiO2 09/27/16 06:00 81 16 127/62 (83) 92 Room Air 09/27/16 05:00 80 16 108/65 (79) 92 Room Air 09/27/16 04:07 94 Room Air 09/27/16 04:00 82 16 103/57 (72) 92 Room Air 09/27/16 03:00 79 15 113/49 (70) 92 Room Air 09/27/16 02:00 81 16 114/54 (74) 91 Room Air 09/27/16 01:00 76 17 108/50 (69) 92 Room Air 09/27/16 00:24 94 Room Air 09/27/16 00:00 75 15 120/62 (81) 92 Room Air 09/26/16 23:00 70 17 126/70 (88) 90 Room Air 09/26/16 22:00 73 16 121/60 (80) 92 Room Air 09/26/16 21:00 75 16 122/55 (77) 92 Room Air 09/26/16 20:30 94 Room Air 30 09/26/16 20:00 36.7 80 14 121/49 (73) 93 Room Air 09/26/16 19:00 74 18 121/55 (77) 93 09/26/16 17:01 77 16 124/66 (85) 94 Room Air 09/26/16 17:00 78 16 94 09/26/16 16:00 78 16 111/52 (71) 92 09/26/16 15:22 92 Room Air 09/26/16 15:00 36.7 81 16 127/55 (79) 91 09/26/16 14:00 78 18 122/63 (82) 93 09/26/16 13:00 79 14 121/60 (80) 91 Room Air 09/26/16 12:00 92 Room Air 09/26/16 12:00 36.8 78 13 147/59 (88) 93 09/26/16 11:00 81 19 127/60 (82) 91 09/26/16 10:48 89 09/26/16 10:00 80 15 100/51 (67) 92 09/26/16 09:00 83 19 144/60 (88) 92 Laboratory Results 24 Hours: Test 09/27/16 05:45 White Blood Count 28.98 K/uL Red Blood Count 2.92 M/uL Hemoglobin 8.8 g/dL Hematocrit 26.4 % Mean Corpuscular Volume 90.4 fL Mean Corpuscular Hemoglobin 30.1 pg Mean Corpuscular Hemoglobin Concent 33.3 g/dl Platelet Count 121 K/uL Neutrophils (%) (Auto) 85.7 % Lymphocytes (%) (Auto) 3.2 % Monocytes (%) (Auto) 5.6 % Eosinophils (%) (Auto) 0.4 % Basophils (%) (Auto) 0.1 % Neutrophils # (Auto) 24.80 K/uL Lymphocytes # (Auto) 0.94 K/uL Monocytes # (Auto) 1.63 K/uL Eosinophils # (Auto) 0.11 K/uL Basophils # (Auto) 0.04 K/uL Assessment & Plan Assessment: POD #9 s/p Right reverse total shoulder arthroplasty, removal of deep hardware right proximal humerus, debridement of olecranon ulcer right elbow GOING TO THE OR TODAY FOR A TUNNELED CATHETER. PRESSURE ULCER R ELBOW- DRESSING INTACT THIS AM. ORTHOPEDICALLY STABLE- WILL TRY AND TRANSFER TO MEDICAL SERVICE TODAY. - SLING X 6 WEEKS - NO SHOULDER PT/ROM X 6 WEEKS - MAY REMOVE SLING FOR ELBOW/WRIST ROM -FOLLOW UP IN 1 WEEK FOR STAPLE REMOVAL UNLESS STILL HOSPITALIZED, MAY BE REMOVED 10-14 DAYS POST OP, WILL FOLLOW. PER OR FIRST ASSIST REGISTERED NURSE TEAM; Neuro - CAM positive. RASS -1 - Fentanyl and Versed discontinued at 09/21/16 @ 04:51, slow improvement in RASS since. Now responding to questions via verbally with yes/no responses, improved alertness - Neurology consulted. - Continue to monitor for changes in RASS CV - SBP noted to be 110-140's. Levophed ordered PRN during dialysis if needed only , but thus far, patient has not required it - HR stable in 60s-80s Resp - Extubated yesterday, saturating well on 3L O2 via nasal cannula, saturating 98 %. - Arm restraints ordered to prevent pulling Coresafe out/NC off GI/Nutrition - Has hepatorenal syndrome. Patient previously on transplant list but was too well. Current MELD score 24. GI consulted. - Ammonia remains WNL. Continue rifaximin, and midodrine. Discontinue octreotide and scheduled lactulose held for now as increased nutrition will also contribute to increased BM - Continue to trend LFTS every other day - GI prophylaxis: IV pantoprazole 40mg BID - Enteral nutrition Novasource renal feeds increased to 30cc/hr target. Continue multivitamin and vitamin K supplements - Family may consider transfer to [facility] [place] for transplant evaluation as patient continues to improve Renal/Fluid - Ongoing dialysis for ultrafiltration and toxin removal - 11.7L removed to date. Creatinine elevated but stable. - Limiting fluids secondary to fluid overload. Trending BMP - Plans for removal of trialysis today. Patient for tunneled catheter insertion on 09/27/16. Vascular consulted. - Continue strict I&O's - Phosphorus supplemented, now WNL ID - Afebrile with downtrending leukocytosis. - Bronchoscopy samples positive for kristen albicans. Fungal and acid fast cultures pending - Continue coverage with Zosyn and Vancomycin (Day 6/7) + IV fluconazole (Day 3/ 7) Endo - Continue methylprednisone 20mg BID x 5 days, then stop 09/27/16 - Continue monitoring blood glucose. Recent levels have been within acceptable ranges. Heme - Leukocytosis improved, anemia stable. - Thrombocytopenia continues, but no evidence of thrombosis, HIT score 2 - <5% probability of HIT. Continue to monitor. - Continue DVT prophylaxis with heparin SC 5000 units BID. Access - 2x peripheral IV, 1 left upper arm midline Consults & Procedures Consultants: Gastroenterology: Dr. Noel Neurology: Dr. Dunn Nephrology: Dr. Thakkar Orthopedics: Dr. Fontenot Wound care: Dr. Yeung Discharge Planning Discharge Planning: uncertain
[2016-09-27] MEDS: PHYTONADIONE 5 MG TAB PO SCH (09:11)
[2016-09-27] MEDS: MIDODRINE 2.5 MG TAB PO SCH ×3 (09:11→18:00)
[2016-09-27] MEDS: PANTOprazole INJ 40 MG in SYRINGE 0 ML IV SCH (09:13)
[2016-09-27] MEDS: MICONAZOLE NITRATE POWDER 43 GM EXT SCH ×2 (09:14→21:00)
[2016-09-27] MEDS: MULTIVITAMIN TAB PO SCH (09:16)
[2016-09-27] MEDS: RIFAXIMIN TAB 550 MG TAB PO SCH ×2 (09:16→21:31)
--- NOTE | 2016-09-27 09:21 | Nephrology Progress Note ---
Nephrology Progress Note Date of Service: Sep 27, 2016. Subjective on RA, still encephalopathic, for TDC later today; wants NGT out; states feet hurt and no other pain Objective Date Time Temp Pulse Resp B/P (MAP) Pulse Ox O2 Delivery O2 Flow Rate FiO2 09/27/16 06:00 81 16 127/62 (83) 92 Room Air 09/27/16 05:00 80 16 108/65 (79) 92 Room Air 09/27/16 04:07 94 Room Air 09/27/16 04:00 82 16 103/57 (72) 92 Room Air 09/27/16 03:00 79 15 113/49 (70) 92 Room Air 09/27/16 02:00 81 16 114/54 (74) 91 Room Air 09/27/16 01:00 76 17 108/50 (69) 92 Room Air 09/27/16 00:24 94 Room Air 09/27/16 00:00 75 15 120/62 (81) 92 Room Air 09/26/16 23:00 70 17 126/70 (88) 90 Room Air 09/26/16 22:00 73 16 121/60 (80) 92 Room Air 09/26/16 21:00 75 16 122/55 (77) 92 Room Air 09/26/16 20:30 94 Room Air 30 09/26/16 20:00 36.7 80 14 121/49 (73) 93 Room Air 09/26/16 19:00 74 18 121/55 (77) 93 09/26/16 17:01 77 16 124/66 (85) 94 Room Air 09/26/16 17:00 78 16 94 09/26/16 16:00 78 16 111/52 (71) 92 09/26/16 15:22 92 Room Air 09/26/16 15:00 36.7 81 16 127/55 (79) 91 09/26/16 14:00 78 18 122/63 (82) 93 09/26/16 13:00 79 14 121/60 (80) 91 Room Air 09/26/16 12:00 92 Room Air 09/26/16 12:00 36.8 78 13 147/59 (88) 93 09/26/16 11:00 81 19 127/60 (82) 91 09/26/16 10:48 89 09/26/16 10:00 80 15 100/51 (67) 92 09/26/16 09:00 83 19 144/60 (88) 92 Physical Exam: General-on RA, lethargic but interactive/ mostly appropriate Eyes-+scleral icterus ENT-dry mm; NGT Neck-supple Lungs-diminished air entry BL liane R >> L and bibasilar crackles Heart-rrr Abdomen-bs+/soft; no perez [id number]+ dependent and scant peripheral edema Neuro-lethargic Current Inpatient Medications Medications (Trade) Dose Ordered Sig/Michael Route Start Time Stop Time Status Last Admin Dose Admin Miconazole Nitrate (Desenex Powder) 1 appln BID EXT 09/17/16 21:00 10/17/16 20:59 09/26/16 22:48 1 APPLN Midodrine (Proamatine Tab) 5 mg TID@0800,1200,1800 PO 09/19/16 18:00 10/19/16 17:59 09/26/16 17:48 5 MG Levalbuterol (Xopenex 0.63 Mg/ 3 Ml Neb) 0.63 mg Q6H PRN INH 09/20/16 08:30 10/20/16 08:29 Pantoprazole Sodium 40 mg/ Syringe 10 ml @ 5 mls/min DAILY IV 09/21/16 09:00 10/21/16 08:59 09/26/16 08:08 5 MLS/MIN Piperacillin Sod/ Tazobactam Sod (Consult) 1 ea UD PRN N/A 09/20/16 21:15 10/20/16 21:14 Vancomycin HCl (Consult) 1 ea UD PRN N/A 09/20/16 21:45 10/20/16 21:44 Midazolam HCl (Versed Inj) 2.5 mg Q1H PRN IV 09/20/16 21:45 10/20/16 21:44 Future Hold 09/21/16 04:13 2.5 MG Fentanyl Citrate (Fentanyl Inj) 50 mcg Q1H PRN IV 09/20/16 21:45 10/04/16 21:44 Future Hold 09/21/16 04:14 50 MCG Rifaximin (Xifaxan Tab) 550 mg BID PO 09/22/16 21:00 10/22/16 20:59 09/26/16 22:48 550 MG Lactulose (Chronulac Syrup) 30 gm QID PRN PO 09/22/16 10:30 10/23/16 10:29 09/22/16 11:31 30 GM Lactulose (Chronulac Syrup) 30 gm QID PO 09/23/16 09:00 10/23/16 08:59 Future Hold 09/25/16 08:10 30 GM Methylprednisolone Sodium Succinate 20 mg/Syringe 0.32 ml @ 1.5 mls/min DAILY IV 09/24/16 09:00 09/27/16 08:59 09/26/16 08:08 1.5 MLS/MIN Heparin Sodium (Porcine) (Heparin Sq 5000 Unit/0.5ml) 5,000 unit Q8 SQ 09/23/16 14:00 10/23/16 13:59 09/27/16 06:29 5,000 UNIT Fluconazole/ Sodium Chloride 200 mg/Prmx 100 ml @ 100 mls/hr DAILY@1800 IV 09/23/16 18:00 09/30/16 17:59 09/26/16 16:25 100 MLS/HR Phytonadione (Mephyton Tab) 5 mg DAILY PO 09/24/16 10:30 10/24/16 10:29 09/26/16 08:09 5 MG Piperacillin Sod/ Tazobactam Sod 4.5 gm/Dextrose 120 ml @ 30 mls/hr Q12@0200,1400 IV 09/24/16 14:00 09/27/16 13:59 09/27/16 04:19 30 MLS/HR Multivitamins (Multivitamin Tab) 1 tab QAM PO 09/25/16 09:00 10/25/16 08:59 09/26/16 08:10 1 TAB Heparin Sodium (Porcine) (Heparin 10 Unit/ ml 5 ml Flush) 5 ml PRN PRN FLUSH 09/25/16 02:00 10/25/16 01:59 Metoclopramide HCl (Reglan Inj) 10 mg Q6H PRN IV 09/25/16 12:45 10/25/16 12:44 09/26/16 11:21 10 MG Enteral Nutritional Formula (Novasource Renal) 1,000 ml UD ND 09/26/16 18:00 10/26/16 17:59 09/26/16 17:47 1,000 ML Fentanyl Citrate (Fentanyl Inj) 25 mcg Q5M PRN IV 09/27/16 07:45 09/28/16 07:44 UNV Ondansetron HCl (Zofran Inj) 4 mg ONE PRN IV 09/27/16 07:45 UNV Atropine Sulfate (Atropine Sulfate 0.1MG/Ml Inj) 0.5 mg Q1M PRN IV 09/27/16 07:45 09/28/16 07:44 UNV Last 24 Hours Test 09/26/16 12:00 09/27/16 05:45 09/27/16 08:40 Bedside Glucose 153 mg/dl White Blood Count 28.98 K/uL Red Blood Count 2.92 M/uL Hemoglobin 8.8 g/dL Hematocrit 26.4 % Mean Corpuscular Volume 90.4 fL Mean Corpuscular Hemoglobin 30.1 pg Mean Corpuscular Hemoglobin Concent 33.3 g/dl Platelet Count 121 K/uL Neutrophils (%) (Auto) 85.7 % Lymphocytes (%) (Auto) 3.2 % Monocytes (%) (Auto) 5.6 % Eosinophils (%) (Auto) 0.4 % Basophils (%) (Auto) 0.1 % Neutrophils # (Auto) 24.80 K/uL Lymphocytes # (Auto) 0.94 K/uL Monocytes # (Auto) 1.63 K/uL Eosinophils # (Auto) 0.11 K/uL Basophils # (Auto) 0.04 K/uL RDW Standard Deviation 58.5 fL RDW Coefficient of Variation 19.1 % Immature Granulocyte % (Auto) 5.0 % Immature Granulocyte # (Auto) 1.46 K/uL Polychromasia 1+ Hypochromasia PRESENT Poikilocytosis PRESENT Sodium Level 134 mmol/L Potassium Level 3.3 mmol/L Chloride Level 101 mmol/L Carbon Dioxide Level 24 mmol/L Anion Gap 9.0 mmol/L Blood Urea Nitrogen 36 mg/dl Creatinine 2.50 mg/dl Est Creatinine Clear Calc Drug Dose 25.8 ml/min Estimated GFR () 23.8 Estimated GFR (Non- 20.5 BUN/Creatinine Ratio 14.2 Random Glucose 160 mg/dl Calcium Level 8.7 mg/dl Chemistry Specimen Hemolysis Random Vancomycin Level 19.9 mcg/ml Date/Time Source Procedure Growth Status 8/21/17 07:44 Stool C.difficile Toxin B Gene (PCR) Pending Ordered Assessment & Plan 60 yo female with biliary cirrhosis with anuric ileana/atn vs HRS who required intubation, extubated 09/23. on daily dialysis 09/20-09/25. -for HD today to cont to optimize volume/clearance -likely to need it tomorrow as well Appreciate consult
[2016-09-27] MEDS ORDERED: EPOETIN ALFA 10,000 UNITS/ML VIAL IV. ONE (09:30)
--- NOTE | 2016-09-27 09:38 | Progress Note ---
Progress Note Date of Service Sep 27, 2016. Progress Note Patient for insertion of permcath today. I have discussed the risks options and benefits of the procedure with the patient and her . The patient and understand the risks options and benefits and agree to the procedure. I have examined the patient, reviewed the History & Physical and in the interval since the performance of the History & Physical I have noted the following changes of clinical significance: No changes noted
[2016-09-27] MEDS ORDERED: HEPARIN SOD (PORCINE) 5000 UNIT/ML 1 ML VIAL ONE (09:45)
[2016-09-27] MEDS ORDERED: EPOETIN ALFA INJ 12,000 UNITS in SYRINGE 0 ML IV. SCH (10:00)
[2016-09-27] MEDS ORDERED: FENTANYL CITRATE INJ 50 MCG/1 ML 2 ML VIAL ONE (10:03)
[2016-09-27] MEDS ORDERED: MIDAZOLAM HCL 1 MG/ML 2ML VIAL ONE ×2 (10:03)
[2016-09-27] MEDS ORDERED: LIDOCAINE HCL 1% 20 ML VIAL INJ ONE (11:09)
[2016-09-27] MEDS ORDERED: HEPARIN SOD (PORCINE) 5000 UNIT/ML 1 ML VIAL IV ONE (11:15)
[2016-09-27] MEDS ORDERED: PROPOFOL IV EMULSION 10 MG/ML 20 ML VIAL IV ONE (11:18)
[2016-09-27] MEDS ORDERED: ONDANSETRON INJ 2 MG/ML 2 ML VIAL ONE (11:21)
--- NOTE | 2016-09-27 11:26 | [facility] Operative Report ---
Operative Report Operative Date Sep 27, 2016. Pre-Operative Diagnosis Acute renal failure Post-Operative Diagnosis Same Procedure(s) Performed Insertion of right internal jugular vein permcath, 19cm USN localization of internal jugular vein Fluoro for postioning Surgeon coby Map Compiler Surgeon(s) none Estimated Blood Loss 5 Findings tip in distal SVC Specimens none Anesthesia MAC Complication(s) None Disposition Surgical ICU Indications This is a 60-year-old female who was admitted with a fractured arm who developed acute renal failure and is in need of an access for dialysis. A temporary line for dialysis was placed and was pulled 2 days prior to this. She is now brought to the operating room for insertion of a PermCath. I have discussed the risks options and benefits of the procedure with the patient and her . The patient and her understand the risks options and benefits and agrees to the procedure. Description of Procedure Patient was takent to the angio suite and placed in the supine position. The right side of the neck and chest wall were prepped and draped in a sterile manner. Local anesthesia was then administered to the appropriate areas of the neck and chest wall. Ultrasound was then used to locate the right internal jugular vein. The vein compressed easily, had no filing defects, and was patent. The vein was then punctured under direct ultrasound imaging. A guidewire was then passed centrally under fluoroscopic imaging. A stab wound was then made in the anterior chest wall and a 19 cm permcath was passed from the stab wound on the chest wall to the puncture site on the neck. The puncture site was then dilated till the 14Fr peel away sheath was inserted. The permcath was then inserted through the sheath to a central position in the distal superior vena cava. The peel away sheath was then removed. The catheter was then sutured in place using nylon sutures. The puncture was then closed using a 4-0 Vicryl subcuticular suture. Dermabond was used for a dressing on the puncture site. Both ports aspirated and flushed easily and were then packed with heparin. A sterile dressing was applied to the catheter. The patient left the angio suite in good condition and tolerated the procedure well. I attest to the content of the Intraoperative Record and any orders documented therein. Any exceptions are noted below.
--- NOTE | 2016-09-27 12:41 | Anesthesiology Progress Note ---
Anesthesia Post Op Note Date & Time Sep 27, 2016 at 12:40 Vital Signs Pain Intensity: 0.0 Vital Signs Past 12 Hours Date Time Temp Pulse Resp B/P (MAP) Pulse Ox O2 Delivery O2 Flow Rate FiO2 09/27/16 06:00 81 16 127/62 (83) 92 Room Air 09/27/16 05:00 80 16 108/65 (79) 92 Room Air 09/27/16 04:07 94 Room Air 09/27/16 04:00 82 16 103/57 (72) 92 Room Air 09/27/16 03:00 79 15 113/49 (70) 92 Room Air 09/27/16 02:00 81 16 114/54 (74) 91 Room Air 09/27/16 01:00 76 17 108/50 (69) 92 Room Air Notes Mental Status: alert / awake / arousable, participated in evaluation Pt Amnestic to Procedure: No Nausea / Vomiting: adequately controlled Pain: adequately controlled Airway Patency, RR, SpO2: stable & adequate BP & HR: stable & adequate Hydration State: stable & adequate Anesthetic Complications: no major complications apparent Anesthetic Complications: Level of amnesia as expected for MAC.
--- NOTE | 2016-09-27 14:24 | Progress Note ---
Progress Note Date of Service Sep 27, 2016. Progress Note GI note: Pt is a 60 y/o female w PBC, recently admitted for R humeral fracture surgery, hospitalization course was complicated by decline in mental and respiratory status, HRS. She was [place] [facility] not [place] due to low M[place]. Though recently MELD been around 24-27. She was extubated on 09/24, maintained on 2L NC. Bronchial washing grew kristen. WBC rising. Cr 2.9. She just had Permacath placement today for HD. Been getting CVVHD. Was also maintained on Midodrine/Octreotied. VS, Labs reviewed: - She was alert, oriented today though slow in speech. Doesn't appear to be in distress as she lay in bed - HR regular, no murmur or gallops - Chest diminished on lower lobes. - Abd soft, non tender, BM hypoactive. Cdiff pending. NGT w tube feeding in place. - Bilateral LE mild edema. RECS: - Consider restart of Ursodiol as LFTs increasing. Previously Ursodiol stopped given fluid overload. - Continue Xifaxan, Lactulose, PPI - Previous discussion for possible [place] [facility] [place] eval though family prefer to keep her at [facility] for now. - No new GI plans, will watch peripherally. Call if new questions/concerns arise.
[2016-09-27] MEDS: ALBUMIN HUMAN 25% 12.5 GM/50 ML VIAL IV SCH ×2 (15:00→16:30)
[2016-09-27] MEDS: FLUCONAZOLE 200MG / NSS IV SCH (18:00)
--- NOTE | 2016-09-27 20:27 | Progress Note ---
Medicine Progress Note Date & Time of Visit: Sep 27, 2016 at 08:30 . Subjective No fever. No chest pain. Extubated on 09/24; now oxygenating well on room-air. No cough. Still has NGT, hoping that it can be discontinued. No nausea or vomiting. Has some lower abdominal discomfort. Postoperative right shoulder pain. . Objective Last 8 Hrs Date Time Temp Pulse Resp B/P (MAP) Pulse Ox O2 Delivery O2 Flow Rate FiO2 09/27/16 18:15 36.5 90 112/70 (84) 09/27/16 18:00 90 27 116/55 (75) 93 09/27/16 17:45 93 110/78 09/27/16 17:30 93 105/68 09/27/16 17:15 91 104/59 09/27/16 17:00 91 111/71 09/27/16 16:45 91 113/56 09/27/16 16:30 93 103/74 09/27/16 16:15 91 110/59 09/27/16 16:00 94 Room Air 09/27/16 16:00 92 140/84 09/27/16 15:46 92 21 153/103 (120) 94 09/27/16 15:45 88 153/103 09/27/16 15:30 93 13 113/78 (90) 94 09/27/16 15:30 96 113/78 09/27/16 15:15 94 125/70 09/27/16 15:15 95 18 125/70 (88) 94 09/27/16 15:00 84 131/68 09/27/16 15:00 87 21 114/83 (93) 93 09/27/16 14:50 83 14 131/68 (89) 94 09/27/16 14:45 36.5 78 126/72 (90) 09/27/16 14:45 80 16 126/72 (90) 92 09/27/16 14:30 81 18 123/69 (87) 92 09/27/16 14:15 81 19 132/68 (89) 92 09/27/16 14:00 81 17 117/56 (76) 93 09/27/16 13:45 80 15 98/65 (76) 93 09/27/16 13:30 78 21 103/58 (73) 93 09/27/16 13:00 80 21 106/59 (75) 93 Physical Exam: General- no acute distress Eyes- sclerae icteric Neck- + JVD; right neck bandaged Lungs- clear to auscultation anteriorly Heart- RRR Abdomen- + BS, slightly distended, soft, nontender Extremities- 1-2+ pretibial edema; maricarmen right shoulder / humerus; right elbow protector Neuro- alert, oriented to person, hospital, year, president . Laboratory Results: Last 24 Hours Test 09/27/16 05:45 White Blood Count 28.98 K/uL Red Blood Count 2.92 M/uL Hemoglobin 8.8 g/dL Hematocrit 26.4 % Mean Corpuscular Volume 90.4 fL Mean Corpuscular Hemoglobin 30.1 pg Mean Corpuscular Hemoglobin Concent 33.3 g/dl Platelet Count 121 K/uL Neutrophils (%) (Auto) 85.7 % Lymphocytes (%) (Auto) 3.2 % Monocytes (%) (Auto) 5.6 % Eosinophils (%) (Auto) 0.4 % Basophils (%) (Auto) 0.1 % Neutrophils # (Auto) 24.80 K/uL Lymphocytes # (Auto) 0.94 K/uL Monocytes # (Auto) 1.63 K/uL Eosinophils # (Auto) 0.11 K/uL Basophils # (Auto) 0.04 K/uL RDW Standard Deviation 58.5 fL RDW Coefficient of Variation 19.1 % Immature Granulocyte % (Auto) 5.0 % Immature Granulocyte # (Auto) 1.46 K/uL Polychromasia 1+ Hypochromasia PRESENT Poikilocytosis PRESENT Sodium Level 134 mmol/L Potassium Level 3.3 mmol/L Chloride Level 101 mmol/L Carbon Dioxide Level 24 mmol/L Anion Gap 9.0 mmol/L Blood Urea Nitrogen 36 mg/dl Creatinine 2.50 mg/dl Est Creatinine Clear Calc Drug Dose 25.8 ml/min Estimated GFR () 23.8 Estimated GFR (Non- 20.5 BUN/Creatinine Ratio 14.2 Random Glucose 160 mg/dl Calcium Level 8.7 mg/dl Total Bilirubin 3.5 mg/dl Direct Bilirubin 2.6 mg/dl Aspartate Amino Transf (AST/SGOT) 193 U/L Alanine Aminotransferase (ALT/SGPT) 68 U/L Alkaline Phosphatase 487 U/L Total Protein 5.1 gm/dl Albumin 2.1 gm/dl Chemistry Specimen Hemolysis Random Vancomycin Level 19.9 mcg/ml Assessment & Plan CARDIOVASCULAR Systolic blood pressures running in the 90s. Continue midodrine. RESPIRATORY Experienced acute hypoxic respiratory failure secondary to fluid overload. Required intubation/mechanical ventilation. Pulmonary edema improved with dialysis. Expected. Now oxygenating well on room air. GI Underlying biliary cirrhosis with portal hypertension. GI consulted. Continue rifaximin. Nutrition consulted. Advance diet as tolerated. Discontinue NGT when able. Chronic kidney disease with acute kidney injury. Management per Nephrology. Placement of hemodialysis catheter planned for today. NEURO Altered mental status secondary to multifactorial delirium. Head CT negative for acute event. Now alert and oriented 3. Continue rifaximin for hepatic encephalopathy. ID Received IV vancomycin and piperacillin/tazobactam for possible aspiration pneumonia. Receiving fluconazole for Melissa albicans noted in sputum and bronchial washings. Afebrile. VTE PROPHYLAXIS SQ heparin. DISPOSITION To be determined. Anticipate need for skilled care or inpatient rehabilitation. . Current Inpatient Medications: Current Inpatient Medications Medications (Trade) Dose Ordered Sig/Michael Route Start Time Stop Time Status Last Admin Dose Admin Miconazole Nitrate (Desenex Powder) 1 appln BID EXT 09/17/16 21:00 10/17/16 20:59 09/27/16 09:14 1 APPLN Midodrine (Proamatine Tab) 5 mg TID@0800,1200,1800 PO 09/19/16 18:00 10/19/16 17:59 09/27/16 18:00 5 MG Levalbuterol (Xopenex 0.63 Mg/ 3 Ml Neb) 0.63 mg Q6H PRN INH 09/20/16 08:30 10/20/16 08:29 Pantoprazole Sodium 40 mg/ Syringe 10 ml @ 5 mls/min DAILY IV 09/21/16 09:00 10/21/16 08:59 09/27/16 09:13 5 MLS/MIN Piperacillin Sod/ Tazobactam Sod (Consult) 1 ea UD PRN N/A 09/20/16 21:15 10/20/16 21:14 Vancomycin HCl (Consult) 1 ea UD PRN N/A 09/20/16 21:45 10/20/16 21:44 Fentanyl Citrate (Fentanyl Inj) 50 mcg Q1H PRN IV 09/20/16 21:45 10/04/16 21:44 Future Hold 09/21/16 04:14 50 MCG Rifaximin (Xifaxan Tab) 550 mg BID PO 09/22/16 21:00 10/22/16 20:59 09/27/16 09:16 550 MG Lactulose (Chronulac Syrup) 30 gm QID PRN PO 09/22/16 10:30 10/23/16 10:29 09/22/16 11:31 30 GM Lactulose (Chronulac Syrup) 30 gm QID PO 09/23/16 09:00 10/23/16 08:59 Future Hold 09/25/16 08:10 30 GM Heparin Sodium (Porcine) (Heparin Sq 5000 Unit/0.5ml) 5,000 unit Q8 SQ 09/23/16 14:00 10/23/16 13:59 09/27/16 06:29 5,000 UNIT Fluconazole/ Sodium Chloride 200 mg/Prmx 100 ml @ 100 mls/hr DAILY@1800 IV 09/23/16 18:00 09/30/16 17:59 09/27/16 18:00 100 MLS/HR Phytonadione (Mephyton Tab) 5 mg DAILY PO 09/24/16 10:30 10/24/16 10:29 09/27/16 09:11 5 MG Multivitamins (Multivitamin Tab) 1 tab QAM PO 09/25/16 09:00 10/25/16 08:59 09/27/16 09:16 1 TAB Heparin Sodium (Porcine) (Heparin 10 Unit/ ml 5 ml Flush) 5 ml PRN PRN FLUSH 09/25/16 02:00 10/25/16 01:59 Enteral Nutritional Formula (Novasource Renal) 1,000 ml UD ND 09/26/16 18:00 10/26/16 17:59 09/26/16 17:47 1,000 ML Metoclopramide HCl (Reglan Inj) 5 mg Q6H PRN IV 09/27/16 12:45 10/25/16 12:44 Prednisone (PredniSONE TAB) 5 mg DAILY PO 09/28/16 09:00 10/28/16 08:59 Heparin Sodium (Porcine) (No Heparin In Dialysis) 1 ea TODAY@0945 N/A 09/27/16 09:45 09/27/16 23:59 Albumin Human (Albumin 25%) 12.5 gm TODAY@1000,1130 IV 09/27/16 10:00 09/27/16 23:59 Epoetin Ken 42320 units/ Syringe 0.6 ml @ 1 mls/min TODAY@1000 IV. 09/27/16 10:00 09/27/16 23:59 Enteral Nutritional Formula (Boost) 1 can BIDM PO 09/28/16 07:15 10/28/16 07:14
[2016-09-28] VITALS (42 sets, daily range): BP systolic 87–119; BP diastolic 39–72; PULSE 86–107; TEMP 36.4–37.1; O2SAT 89–97
[2016-09-28 06:09] LABS: HEMATOCRIT 20.6 % (37-47); MEAN CELL VOLUME 90.7 fL (80-100); MEAN CORPUSCULAR HEMOGLOBIN 31.3 pg (25-34); MEAN CORPUSCULAR HGB CONC 34.5 g/dl (32-36); MEAN PLATELET VOLUME 9.8 fL (7.4-10.4); PLATELET COUNT 86 K/uL (130-400); RED BLOOD COUNT 2.27 M/uL (4.2-5.4); WHITE BLOOD COUNT 29.88 K/uL (4.8-10.8)
[2016-09-28] MEDS: HEPARIN SOD 5000 UNIT/0.5 ML CARP SQ SCH (06:13)
[2016-09-28 06:23] LABS: ANISOCYTOSIS PRESENT; BASO % 0.1 %; BASO ABS # 0.03 K/uL (0-0.2); BUN/CREATININE RATIO 12.6 (10-20); CALCIUM 8.2 mg/dl (8.5-10.1); COMPLETE YES; CREATININE 1.9 mg/dl (0.60-1.20); EOS % 0.9 %; IG% 2.5 %; LYMPH % 4.2 %; LYMPH ABS # 1.26 K/uL (1.2-3.4); NEUT % 87.3 %; POLYCHROMASIA 1+; POTASSIUM 3.6 mmol/L (3.5-5.1); SCHISTOCYTES OCCASIONAL
[2016-09-28] MEDS ORDERED: EPOETIN ALFA 10,000 UNITS/ML VIAL IV. ONE (07:45)
[2016-09-28] MEDS ORDERED: EPOETIN ALFA INJ 12,000 UNITS in SYRINGE 0 ML IV. SCH (08:00)
[2016-09-28] MEDS: MICONAZOLE NITRATE POWDER 43 GM EXT SCH ×2 (09:00→20:49)
[2016-09-28] MEDS: PHYTONADIONE 5 MG TAB PO SCH (09:06)
[2016-09-28] MEDS: RIFAXIMIN TAB 550 MG TAB PO SCH ×2 (09:06→20:54)
[2016-09-28] MEDS: PANTOprazole INJ 40 MG in SYRINGE 0 ML IV SCH (09:07)
[2016-09-28] MEDS: MIDODRINE 2.5 MG TAB PO SCH ×3 (09:07→18:44)
[2016-09-28] MEDS: MULTIVITAMIN TAB PO SCH (09:07)
[2016-09-28] MEDS: BOOST VANILLA PO SCH ×4 (09:10→16:39)
[2016-09-28] MEDS: ALBUMIN HUMAN 25% 12.5 GM/50 ML VIAL IV SCH ×2 (10:00→11:30)
--- NOTE | 2016-09-28 10:31 | Critical Care Progress Note ---
Critical Care Progress Note Date of Service Sep 28, 2016. ICU Day ICU Day Number: [address] Cummings Subjective Patient awake, and alert and carrying a conversation. She says she feels good. She continues to deny chest pain, abdominal pain, SOB on room air, palpitations , or nausea. She does however state that her right arm is sore. When no one touches it, she rates the pain as 5/10 and worsens to 7/10 with any handling. She tolerated PermCath insertion yesterday, without complications. She is glad to have the NGT removed and is eating breakfast at this time. Objective GENERAL: Responsive, lying in bed, no oxygen support on and saturating 93%, HEAD: Normocephalic, atraumatic. EYES: Normal sclera and conjunctiva. PERRL. EOMI. Mild scleral icterus. Conjunctiva normal. NECK: Supple, no adenopathy. Able to hold neck up when pillow is removed. LUNGS: Normal chest wall mechanics, poor air entry. No crackles, or wheezes. No dyspnea upon lying flat HEART: S1 and S2 normal, systolic murmur appreciated in the aortic region ABDOMEN: Abdomen soft - no ascites appreciated, bowel sounds present, no masses , no rebound or guarding. SKIN: Warm, pink, dry. No rashes. Mildly jaundice. Bruising on right neck, secondary to PermCath insertion, and on left arm from previous trial of PICC insertion. Evidence of venostasis on lower limbs. Ulcer on right elbow. EXTREMITIES: Killian exposed on right arm from shoulder surgery. Bilateral 2+ lower extremity edema. Patient able to wiggle fingers and toes. NEURO: A+Ox3, Pupils equal. 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 Engaging and asking questions today. Current SOFA Score SOFA Score Response (Comments) Value Platelets (x10) < 100 2 Bilirubin (mg/dL) 2.0 - 5.9 2 [place] Coma Score 10 - 12 2 Level of Hypotension No Hypotension 0 Creatinine (mg/dL) 1.2 - 1.9 1 Total 7 Assessment & Plan 60 year old female post op from orthopedic surgery with altered mental status secondary to hepatorenal syndrome, requiring intubation for impending hypoxic and hypercapnic respiratory failure Neuro - CAM negative - Continue to monitor for changes in RASS CV - SBP noted to be 90s-110s. Levophed ordered PRN during dialysis if needed only , but thus far, patient has not required it - HR stable in 60s-70s Resp - On RA, saturating 93% GI/Nutrition - Has hepatorenal syndrome secondary to primary biliary cirrhosis. Patient previously on transplant list but was too well. Current MELD score 24. GI consulted. - Ammonia remains WNL. Continue rifaximin, and midodrine for hepatic encephalopathy. Lactulose PRN for decreased bowel movements - Continue to trend LFTS every other day. In view of elevation, start ursodiol 600mg BID, as per GI - Coresafe removed, taking PO renal renal diet. Dietitian consulted. Metoclopramide 5mg (renally dosed) PRN nausea - Continue multivitamin and vitamin K supplements. - GI prophylaxis switch to PO instead of IV. - Family previously declined, but may reconsider transfer to [facility] for transplant evaluation as patient continues to improve Renal/Fluid - Patient s/p PermCath insertion via right IJ. Tolerated procedure well, without complications - Ongoing dialysis for ultrafiltration and toxin removal - 13.7L removed to date. Creatinine elevated but stable. Plans for dialysis today with additional labs post dialysis. - Continue Epoetin - Limiting fluids secondary to fluid overload. Trend BMP - Continue strict I&O's ID - Afebrile with elevated leukocytosis. - Bronchoscopy samples positive for kristen albicans. Fungal and acid fast cultures pending - IV fluconazole (Day 6/7) - With ongoing leukocytosis, check for C.diff toxin Endo - Continue prednisone 5mg daily. Of note, patient on chronic prednisone 1mg daily. - Continue monitoring blood glucose. Recent levels have been within acceptable ranges. Heme - Leukocytosis continues to elevate, drop in hemoglobin and platelets, however, patient remains asymptomatic. No transfusion at this to time. Continue to monitor with labs post dialysis. - Continue DVT prophylaxis with heparin SC 5000 units BID for now. Skin/MSK - Wound care consulted for right elbow ulcer - As per orhtho recommendations: sling x 6 weeks with no shoulder LA/ROM exercises x 6 weeks. May remove sling for elbow/wrist ROM exercises. Killian may be removed 10-14 days post op. PT/OT consulted Access - 2x peripheral IV, 1 left upper arm midline, 1 right IJ Perm Cath I was present with Dr. Cindy Weaver during the history and exam. I discussed the case with the resident and agree with the findings and plan as documented in the note. Any exceptions or clarifications are listed here: Patient with toxic-metabolic encephalopathy, secondary to liver failure (due to DIAZ), and perhaps a component of renal failure, as well as delayed clearance of medication. Steadily improving S/p PermCath yesterday, now undergoing hemodialysis for the second time. NGT removed, able to eat partial diet. Will hold off Remeron, may accumulate. Finishing course of Abx. On Diflucan for now Transitioned Solumedrol to Prednisone 5 mg. Start Ursodiol today Potential transfer to tertiary care center for liver/kidney transplant Hold SC heparin, platelets trending down. Check HIT panel. Most likely cause is liver failure Mobilize patient Documented By: Ayden Cummings MD Critical care time spent with patient and family, greater than 25 minutes LAC VIEUX II Score Date Score Was Generated: Sep 24, 2016 Consults & Procedures Consultants: Gastroenterology: Dr. Noel Neurology: Dr. Dunn Nephrology: Dr. Thakkar Orthopedics: Dr. Fontenot Vascular: Dr. Rouse Wound care: Dr. Gamal Boyle PT OT Procedures: 09/17/16: Right reverse total shoulder arthroplasty, removal of deep hardware right proximal humerus, debridement of olecranon ulcer right elbow 09/20/16: Trialysis central catheter inserted 09/20/16: Echo 09/20/16: Intubated 09/21/16: Bronchoscopy 09/24/16: Midline inserted 09/24/16: Extubated 09/25/16: Trialysis removed Data Medications: Current Inpatient Medications Medications (Trade) Dose Ordered Sig/Michael Route Start Time Stop Time Status Last Admin Dose Admin Miconazole Nitrate (Desenex Powder) 1 appln BID EXT 09/17/16 21:00 10/17/16 20:59 09/27/16 21:00 1 APPLN Midodrine (Proamatine Tab) 5 mg TID@0800,1200,1800 PO 09/19/16 18:00 10/19/16 17:59 09/28/16 09:07 5 MG Levalbuterol (Xopenex 0.63 Mg/ 3 Ml Neb) 0.63 mg Q6H PRN INH 09/20/16 08:30 10/20/16 08:29 Fentanyl Citrate (Fentanyl Inj) 50 mcg Q1H PRN IV 09/20/16 21:45 10/04/16 21:44 Future Hold 09/21/16 04:14 50 MCG Rifaximin (Xifaxan Tab) 550 mg BID PO 09/22/16 21:00 10/22/16 20:59 09/28/16 09:06 550 MG Lactulose (Chronulac Syrup) 30 gm QID PRN PO 09/22/16 10:30 10/23/16 10:29 09/22/16 11:31 30 GM Lactulose (Chronulac Syrup) 30 gm QID PO 09/23/16 09:00 10/23/16 08:59 Future Hold 09/25/16 08:10 30 GM Fluconazole/ Sodium Chloride 200 mg/Prmx 100 ml @ 100 mls/hr DAILY@1800 IV 09/23/16 18:00 09/30/16 17:59 09/27/16 18:00 100 MLS/HR Phytonadione (Mephyton Tab) 5 mg DAILY PO 09/24/16 10:30 10/24/16 10:29 09/28/16 09:06 5 MG Multivitamins (Multivitamin Tab) 1 tab QAM PO 09/25/16 09:00 10/25/16 08:59 09/28/16 09:07 1 TAB Heparin Sodium (Porcine) (Heparin 10 Unit/ ml 5 ml Flush) 5 ml PRN PRN FLUSH 09/25/16 02:00 10/25/16 01:59 Metoclopramide HCl (Reglan Inj) 5 mg Q6H PRN IV 09/27/16 12:45 10/25/16 12:44 Prednisone (PredniSONE TAB) 5 mg DAILY PO 09/28/16 09:00 10/28/16 08:59 09/28/16 09:06 5 MG Enteral Nutritional Formula (Boost) 1 can BIDM PO 09/28/16 07:15 10/28/16 07:14 09/28/16 09:10 1 CAN Heparin Sodium (Porcine) (No Heparin In Dialysis) 1 ea TODAY@0800 N/A 09/28/16 08:00 09/28/16 18:00 Albumin Human (Albumin 25%) 12.5 gm 0830,1000 IV 09/28/16 08:30 09/28/16 18:00 Epoetin Ken 50091 units/ Syringe 0.6 ml @ 1 mls/min TODAY@0800 IV. 09/28/16 08:00 09/28/16 18:00 Ursodiol (Actigall Cap) 600 mg BID PO 09/28/16 21:00 10/28/16 20:59 Pantoprazole Sodium (Protonix Tab) 40 mg QAM PO 09/29/16 09:00 10/29/16 08:59 Vital Signs: Date Time Temp Pulse Resp B/P (MAP) Pulse Ox O2 Delivery O2 Flow Rate FiO2 09/28/16 07:00 91 19 93/43 (60) 90 09/28/16 06:45 90 19 96/42 (60) 89 09/28/16 06:30 94 24 102/45 (64) 89 09/28/16 06:15 93 21 91/42 (58) 89 09/28/16 06:00 97 23 118/48 (71) 92 09/28/16 04:30 93 20 91/45 (60) 91 09/28/16 04:15 95 20 93/39 (57) 90 09/28/16 04:00 Room Air 09/28/16 04:00 37.1 95 18 96/42 (60) 90 09/28/16 02:15 94 18 107/46 (66) 91 09/28/16 02:00 97 21 94/45 (61) 90 09/28/16 00:45 92 26 92/44 (60) 91 09/28/16 00:30 90 23 99/43 (61) 91 09/28/16 00:15 90 24 99/49 (66) 91 09/28/16 00:00 37.1 91 22 96/43 (60) 92 09/27/16 23:59 Room Air 09/27/16 23:45 84 22 105/40 (61) 92 09/27/16 23:30 88 18 99/41 (60) 92 09/27/16 23:15 91 27 109/66 (80) 90 09/27/16 23:00 87 23 118/61 (80) 90 09/27/16 22:30 95 23 85/49 (61) 90 09/27/16 22:15 92 18 104/53 (70) 89 09/27/16 22:00 90 25 96/48 (64) 90 09/27/16 21:45 95 21 106/48 (67) 90 09/27/16 21:30 91 29 102/51 (68) 90 09/27/16 21:15 98 18 112/53 (72) 91 09/27/16 21:00 94 28 123/58 (79) 91 09/27/16 20:45 90 18 112/56 (74) 91 09/27/16 20:30 92 23 118/58 (78) 90 09/27/16 20:16 92 38 121/62 (81) 90 09/27/16 20:00 37.0 95 20 94/74 (81) 91 09/27/16 20:00 Room Air 09/27/16 18:15 36.5 90 112/70 (84) 09/27/16 18:00 90 27 116/55 (75) 93 09/27/16 17:45 93 110/78 09/27/16 17:30 93 105/68 09/27/16 17:15 91 104/59 09/27/16 17:00 91 111/71 09/27/16 16:45 91 113/56 09/27/16 16:30 93 103/74 09/27/16 16:15 91 110/59 09/27/16 16:00 94 Room Air 09/27/16 16:00 92 140/84 09/27/16 15:46 92 21 153/103 (120) 94 09/27/16 15:45 88 153/103 09/27/16 15:30 93 13 113/78 (90) 94 09/27/16 15:30 96 113/78 09/27/16 15:15 94 125/70 09/27/16 15:15 95 18 125/70 (88) 94 09/27/16 15:00 84 131/68 09/27/16 15:00 87 21 114/83 (93) 93 09/27/16 14:50 83 14 131/68 (89) 94 09/27/16 14:45 36.5 78 126/72 (90) 09/27/16 14:45 80 16 126/72 (90) 92 09/27/16 14:30 81 18 123/69 (87) 92 09/27/16 14:15 81 19 132/68 (89) 92 09/27/16 14:00 81 17 117/56 (76) 93 09/27/16 13:45 80 15 98/65 (76) 93 09/27/16 13:30 78 21 103/58 (73) 93 09/27/16 13:00 80 21 106/59 (75) 93 09/27/16 12:00 80 19 116/54 (74) 94 09/27/16 12:00 96 Room Air 09/27/16 10:00 80 16 139/54 (82) 94 Laboratory Results: Last 24 Hours Test 09/27/16 21:19 09/28/16 05:18 Bedside Glucose 104 mg/dl White Blood Count 29.88 K/uL Red Blood Count 2.27 M/uL Hemoglobin 7.1 g/dL Hematocrit 20.6 % Mean Corpuscular Volume 90.7 fL Mean Corpuscular Hemoglobin 31.3 pg Mean Corpuscular Hemoglobin Concent 34.5 g/dl Platelet Count 86 K/uL Mean Platelet Volume 9.8 fL Neutrophils (%) (Auto) 87.3 % Lymphocytes (%) (Auto) 4.2 % Monocytes (%) (Auto) 5.0 % Eosinophils (%) (Auto) 0.9 % Basophils (%) (Auto) 0.1 % Neutrophils # (Auto) 26.08 K/uL Lymphocytes # (Auto) 1.26 K/uL Monocytes # (Auto) 1.50 K/uL Eosinophils # (Auto) 0.27 K/uL Basophils # (Auto) 0.03 K/uL RDW Standard Deviation 59.2 fL RDW Coefficient of Variation 20.2 % Immature Granulocyte % (Auto) 2.5 % Immature Granulocyte # (Auto) 0.74 K/uL Polychromasia 1+ Basophilic Stippling 1+ Anisocytosis PRESENT Schistocytes OCCASIONAL Sodium Level 137 mmol/L Potassium Level 3.6 mmol/L Chloride Level 103 mmol/L Carbon Dioxide Level 25 mmol/L Anion Gap 9.0 mmol/L Blood Urea Nitrogen 24 mg/dl Creatinine 1.90 mg/dl Est Creatinine Clear Calc Drug Dose 33.0 ml/min Estimated GFR () 33.1 Estimated GFR (Non- 28.6 BUN/Creatinine Ratio 12.6 Random Glucose 102 mg/dl Calcium Level 8.2 mg/dl Resident Tracking Resident Involvement: Resident Care Provided Care Provided: Adult Hospital Medicine
[2016-09-28 13:28] LABS: INR 1.2 (0.9-1.1); PARTIAL THROMBOPLASTIN RATIO 1.5; PROTHROMBIN TIME (PATIENT) 13.1 SECONDS (9.0-12.0)
[2016-09-28 13:46] LABS: HEMATOCRIT 22.9 % (37-47); MEAN CELL VOLUME 90.5 fL (80-100); MEAN CORPUSCULAR HEMOGLOBIN 30.8 pg (25-34); MEAN CORPUSCULAR HGB CONC 34.1 g/dl (32-36); MEAN PLATELET VOLUME 10.9 fL (7.4-10.4); PLATELET COUNT 152 K/uL (130-400); RED BLOOD COUNT 2.53 M/uL (4.2-5.4); WHITE BLOOD COUNT 43.99 K/uL (4.8-10.8)
[2016-09-28 14:00] LABS: PLT ESTIMATE NORMAL
--- NOTE | 2016-09-28 15:00 | Orthopedic Progress Note ---
Orthopedic Progress Note Date of Service Sep 28, 2016. Subjective Post OP Day: 10 Reports: feeling well, pain controlled w PO medications, Denies: chest pain, SOB , nausea / vomiting, light headedness, calf pain Additional Notes: Patient states that she is feeling well. She does complain of being a little cold. She was able to hold a small conversation while sitting in a chair. Objective calves soft nontender, N/V intact, capillary refill less than 2 sec., incision C /D/I Patient was sitting comfortably in a chair with her at the bedside. She was eating. Her incision is clean, dry and intact. Her elbow dressing was intact and waffle brace was on. Date Time Temp Pulse Resp B/P (MAP) Pulse Ox O2 Delivery O2 Flow Rate FiO2 09/28/16 13:32 36.8 92 102/65 (77) 09/28/16 13:00 92 95/62 09/28/16 12:45 97 108/63 09/28/16 12:30 101 110/65 09/28/16 12:15 98 101/61 09/28/16 12:00 92 Room Air 09/28/16 12:00 36.4 99 25 113/57 (75) 09/28/16 12:00 98 113/57 09/28/16 11:45 104 99/60 09/28/16 11:30 98 97/65 09/28/16 11:15 96 99/59 09/28/16 11:00 101 103/59 09/28/16 10:45 99 102/60 09/28/16 10:30 107 114/63 09/28/16 10:15 99 96/54 09/28/16 10:00 92 22 105/56 (72) 93 Room Air 09/28/16 10:00 101 105/56 09/28/16 09:50 37.1 94 112/59 (76) 09/28/16 08:15 36.9 97 18 115/52 (73) 90 Room Air 09/28/16 08:00 88 22 112/60 (77) 93 09/28/16 08:00 90 Room Air 09/28/16 07:00 91 19 93/43 (60) 90 09/28/16 06:45 90 19 96/42 (60) 89 09/28/16 06:30 94 24 102/45 (64) 89 09/28/16 06:15 93 21 91/42 (58) 89 09/28/16 06:00 97 23 118/48 (71) 92 09/28/16 04:30 93 20 91/45 (60) 91 09/28/16 04:15 95 20 93/39 (57) 90 09/28/16 04:00 Room Air 09/28/16 04:00 37.1 95 18 96/42 (60) 90 09/28/16 02:15 94 18 107/46 (66) 91 09/28/16 02:00 97 21 94/45 (61) 90 09/28/16 00:45 92 26 92/44 (60) 91 09/28/16 00:30 90 23 99/43 (61) 91 09/28/16 00:15 90 24 99/49 (66) 91 09/28/16 00:00 37.1 91 22 96/43 (60) 92 09/27/16 23:59 Room Air 09/27/16 23:45 84 22 105/40 (61) 92 09/27/16 23:30 88 18 99/41 (60) 92 09/27/16 23:15 91 27 109/66 (80) 90 09/27/16 23:00 87 23 118/61 (80) 90 09/27/16 22:30 95 23 85/49 (61) 90 09/27/16 22:15 92 18 104/53 (70) 89 09/27/16 22:00 90 25 96/48 (64) 90 09/27/16 21:45 95 21 106/48 (67) 90 09/27/16 21:30 91 29 102/51 (68) 90 09/27/16 21:15 98 18 112/53 (72) 91 09/27/16 21:00 94 28 123/58 (79) 91 09/27/16 20:45 90 18 112/56 (74) 91 09/27/16 20:30 92 23 118/58 (78) 90 09/27/16 20:16 92 38 121/62 (81) 90 09/27/16 20:00 37.0 95 20 94/74 (81) 91 09/27/16 20:00 Room Air 09/27/16 18:15 36.5 90 112/70 (84) 09/27/16 18:00 90 27 116/55 (75) 93 09/27/16 17:45 93 110/78 09/27/16 17:30 93 105/68 09/27/16 17:15 91 104/59 09/27/16 17:00 91 111/71 09/27/16 16:45 91 113/56 09/27/16 16:30 93 103/74 09/27/16 16:15 91 110/59 09/27/16 16:00 94 Room Air 09/27/16 16:00 92 140/84 09/27/16 15:46 92 21 153/103 (120) 94 09/27/16 15:45 88 153/103 09/27/16 15:30 93 13 113/78 (90) 94 09/27/16 15:30 96 113/78 09/27/16 15:15 94 125/70 09/27/16 15:15 95 18 125/70 (88) 94 09/27/16 15:00 84 131/68 09/27/16 15:00 87 21 114/83 (93) 93 Laboratory Results 24 Hours: Test 09/28/16 05:18 09/28/16 12:57 White Blood Count 29.88 K/uL Red Blood Count 2.27 M/uL Hemoglobin 7.1 g/dL 7.8 g/dL Hematocrit 20.6 % 22.9 % Mean Corpuscular Volume 90.7 fL Mean Corpuscular Hemoglobin 31.3 pg Mean Corpuscular Hemoglobin Concent 34.5 g/dl Platelet Count 86 K/uL Mean Platelet Volume 9.8 fL Neutrophils (%) (Auto) 87.3 % Lymphocytes (%) (Auto) 4.2 % Monocytes (%) (Auto) 5.0 % Eosinophils (%) (Auto) 0.9 % Basophils (%) (Auto) 0.1 % Neutrophils # (Auto) 26.08 K/uL Lymphocytes # (Auto) 1.26 K/uL Monocytes # (Auto) 1.50 K/uL Eosinophils # (Auto) 0.27 K/uL Basophils # (Auto) 0.03 K/uL Prothromb Time International Ratio 1.2 Prothrombin Time 13.1 SECONDS Assessment & Plan Assessment: POD #10 s/p Right reverse total shoulder arthroplasty, removal of deep hardware right proximal humerus, debridement of olecranon ulcer right elbow PRESSURE ULCER R ELBOW- DRESSING INTACT. ORTHOPEDICALLY STABLE- WILL TRY AND TRANSFER TO MEDICAL SERVICE. - SLING X 6 WEEKS - NO SHOULDER PT/ROM X 6 WEEKS - MAY REMOVE SLING FOR ELBOW/WRIST ROM -FOLLOW UP IN 1 WEEK FOR STAPLE REMOVAL UNLESS STILL HOSPITALIZED, MAY BE REMOVED 10-14 DAYS POST OP, WILL FOLLOW. PER LABORATORY AIDE TEAM; Neuro - CAM positive. RASS -1 - Fentanyl and Versed discontinued at 09/21/16 @ 04:51, slow improvement in RASS since. Now responding to questions via verbally with yes/no responses, improved alertness - Neurology consulted. - Continue to monitor for changes in RASS CV - SBP noted to be 110-140's. Levophed ordered PRN during dialysis if needed only , but thus far, patient has not required it - HR stable in 60s-80s Resp - Extubated yesterday, saturating well on 3L O2 via nasal cannula, saturating 98 %. - Arm restraints ordered to prevent pulling Coresafe out/NC off GI/Nutrition - Has hepatorenal syndrome. Patient previously on transplant list but was too well. Current MELD score 24. GI consulted. - Ammonia remains WNL. Continue rifaximin, and midodrine. Discontinue octreotide and scheduled lactulose held for now as increased nutrition will also contribute to increased BM - Continue to trend LFTS every other day - GI prophylaxis: IV pantoprazole 40mg BID - Enteral nutrition Novasource renal feeds increased to 30cc/hr target. Continue multivitamin and vitamin K supplements - Family may consider transfer to [facility] for transplant evaluation as patient continues to improve Renal/Fluid - Ongoing dialysis for ultrafiltration and toxin removal - 11.7L removed to date. Creatinine elevated but stable. - Limiting fluids secondary to fluid overload. Trending BMP - Plans for removal of trialysis today. Patient for tunneled catheter insertion on 09/27/16. Vascular consulted. - Continue strict I&O's - Phosphorus supplemented, now WNL ID - Afebrile with downtrending leukocytosis. - Bronchoscopy samples positive for kristen albicans. Fungal and acid fast cultures pending - Continue coverage with Zosyn and Vancomycin (Day 6/7) + IV fluconazole (Day 3/ 7) Endo - Continue methylprednisone 20mg BID x 5 days, then stop 09/27/16 - Continue monitoring blood glucose. Recent levels have been within acceptable ranges. Heme - Leukocytosis improved, anemia stable. - Thrombocytopenia continues, but no evidence of thrombosis, HIT score 2 - <5% probability of HIT. Continue to monitor. - Continue DVT prophylaxis with heparin SC 5000 units BID. Access - 2x peripheral IV, 1 left upper arm midline Consults & Procedures Consultants: Gastroenterology: Dr. Noel Neurology: Dr. Dunn Nephrology: [place] Orthopedics: Dr. Fontenot Wound care: Dr. Yeung Discharge Planning Discharge Planning: uncertain
--- NOTE | 2016-09-28 18:37 | Nephrology Progress Note ---
Nephrology Progress Note Date of Service: Sep 28, 2016. Subjective chart reviewed this am; had uneventful dialysis; seen on rounds 1800; on RA, MS clear today; severe pain mid section w/ dressing changes/bm Objective Date Time Temp Pulse Resp B/P (MAP) Pulse Ox O2 Delivery O2 Flow Rate FiO2 09/28/16 16:01 36.6 104 27 90/49 (63) 93 09/28/16 16:00 94 Room Air 09/28/16 14:00 99 22 119/72 (88) 91 09/28/16 13:32 36.8 92 102/65 (77) 09/28/16 13:00 92 95/62 09/28/16 12:45 97 108/63 09/28/16 12:30 101 110/65 09/28/16 12:15 98 101/61 09/28/16 12:00 92 Room Air 09/28/16 12:00 36.4 99 25 113/57 (75) 09/28/16 12:00 98 113/57 09/28/16 11:45 104 99/60 09/28/16 11:30 98 97/65 09/28/16 11:15 96 99/59 09/28/16 11:00 101 103/59 09/28/16 10:45 99 102/60 09/28/16 10:30 107 114/63 09/28/16 10:15 99 96/54 09/28/16 10:00 92 22 105/56 (72) 93 Room Air 09/28/16 10:00 101 105/56 09/28/16 09:50 37.1 94 112/59 (76) 09/28/16 08:15 36.9 97 18 115/52 (73) 90 Room Air 09/28/16 08:00 88 22 112/60 (77) 93 09/28/16 08:00 90 Room Air 09/28/16 07:00 91 19 93/43 (60) 90 09/28/16 06:45 90 19 96/42 (60) 89 09/28/16 06:30 94 24 102/45 (64) 89 09/28/16 06:15 93 21 91/42 (58) 89 09/28/16 06:00 97 23 118/48 (71) 92 09/28/16 04:30 93 20 91/45 (60) 91 09/28/16 04:15 95 20 93/39 (57) 90 09/28/16 04:00 Room Air 09/28/16 04:00 37.1 95 18 96/42 (60) 90 09/28/16 02:15 94 18 107/46 (66) 91 09/28/16 02:00 97 21 94/45 (61) 90 09/28/16 00:45 92 26 92/44 (60) 91 09/28/16 00:30 90 23 99/43 (61) 91 09/28/16 00:15 90 24 99/49 (66) 91 09/28/16 00:00 37.1 91 22 96/43 (60) 92 09/27/16 23:59 Room Air 09/27/16 23:45 84 22 105/40 (61) 92 09/27/16 23:30 88 18 99/41 (60) 92 09/27/16 23:15 91 27 109/66 (80) 90 09/27/16 23:00 87 23 118/61 (80) 90 09/27/16 22:30 95 23 85/49 (61) 90 09/27/16 22:15 92 18 104/53 (70) 89 09/27/16 22:00 90 25 96/48 (64) 90 09/27/16 21:45 95 21 106/48 (67) 90 09/27/16 21:30 91 29 102/51 (68) 90 09/27/16 21:15 98 18 112/53 (72) 91 09/27/16 21:00 94 28 123/58 (79) 91 09/27/16 20:45 90 18 112/56 (74) 91 09/27/16 20:30 92 23 118/58 (78) 90 09/27/16 20:16 92 38 121/62 (81) 90 09/27/16 20:00 37.0 95 20 94/74 (81) 91 09/27/16 20:00 Room Air Physical Exam: General-on RA, today appropriate but tearful at times Eyes-+scleral icterus ENT-dry mm Neck-supple Lungs-improved air entry BL still some crackles Heart-rrr Abdomen-bs+/soft; no perez Extremities-2+ dependent and scant peripheral edema Neuro-oriented, fluent/appropriate speech Current Inpatient Medications Medications (Trade) Dose Ordered Sig/Michael Route Start Time Stop Time Status Last Admin Dose Admin Miconazole Nitrate (Desenex Powder) 1 appln BID EXT 09/17/16 21:00 10/17/16 20:59 09/27/16 21:00 1 APPLN Midodrine (Proamatine Tab) 5 mg TID@0800,1200,1800 PO 09/19/16 18:00 10/19/16 17:59 09/28/16 14:30 5 MG Levalbuterol (Xopenex 0.63 Mg/ 3 Ml Neb) 0.63 mg Q6H PRN INH 09/20/16 08:30 10/20/16 08:29 Fentanyl Citrate (Fentanyl Inj) 50 mcg Q1H PRN IV 09/20/16 21:45 10/04/16 21:44 Future Hold 09/21/16 04:14 50 MCG Rifaximin (Xifaxan Tab) 550 mg BID PO 09/22/16 21:00 10/22/16 20:59 09/28/16 09:06 550 MG Lactulose (Chronulac Syrup) 30 gm QID PRN PO 09/22/16 10:30 10/23/16 10:29 09/22/16 11:31 30 GM Lactulose (Chronulac Syrup) 30 gm QID PO 09/23/16 09:00 10/23/16 08:59 Future Hold 09/25/16 08:10 30 GM Fluconazole/ Sodium Chloride 200 mg/Prmx 100 ml @ 100 mls/hr DAILY@1800 IV 09/23/16 18:00 09/30/16 17:59 09/27/16 18:00 100 MLS/HR Phytonadione (Mephyton Tab) 5 mg DAILY PO 09/24/16 10:30 10/24/16 10:29 09/28/16 09:06 5 MG Multivitamins (Multivitamin Tab) 1 tab QAM PO 09/25/16 09:00 10/25/16 08:59 09/28/16 09:07 1 TAB Heparin Sodium (Porcine) (Heparin 10 Unit/ ml 5 ml Flush) 5 ml PRN PRN FLUSH 09/25/16 02:00 10/25/16 01:59 Metoclopramide HCl (Reglan Inj) 5 mg Q6H PRN IV 09/27/16 12:45 10/25/16 12:44 Prednisone (PredniSONE TAB) 5 mg DAILY PO 09/28/16 09:00 10/28/16 08:59 09/28/16 09:06 5 MG Enteral Nutritional Formula (Boost) 1 can BIDM PO 09/28/16 07:15 10/28/16 07:14 09/28/16 16:39 1 CAN Ursodiol (Actigall Cap) 600 mg BID PO 09/28/16 21:00 10/28/16 20:59 Pantoprazole Sodium (Protonix Tab) 40 mg QAM PO 09/29/16 09:00 10/29/16 08:59 Last 24 Hours Test 09/27/16 21:19 09/28/16 05:18 09/28/16 12:57 Bedside Glucose 104 mg/dl White Blood Count 29.88 K/uL 43.99 K/uL Red Blood Count 2.27 M/uL 2.53 M/uL Hemoglobin 7.1 g/dL 7.8 g/dL Hematocrit 20.6 % 22.9 % Mean Corpuscular Volume 90.7 fL 90.5 fL Mean Corpuscular Hemoglobin 31.3 pg 30.8 pg Mean Corpuscular Hemoglobin Concent 34.5 g/dl 34.1 g/dl Platelet Count 86 K/uL 152 K/uL Mean Platelet Volume 9.8 fL 10.9 fL Neutrophils (%) (Auto) 87.3 % Lymphocytes (%) (Auto) 4.2 % Monocytes (%) (Auto) 5.0 % Eosinophils (%) (Auto) 0.9 % Basophils (%) (Auto) 0.1 % Neutrophils # (Auto) 26.08 K/uL Lymphocytes # (Auto) 1.26 K/uL Monocytes # (Auto) 1.50 K/uL Eosinophils # (Auto) 0.27 K/uL Basophils # (Auto) 0.03 K/uL RDW Standard Deviation 59.2 fL 60.3 fL RDW Coefficient of Variation 20.2 % 21.1 % Immature Granulocyte % (Auto) 2.5 % Immature Granulocyte # (Auto) 0.74 K/uL Polychromasia 1+ Basophilic Stippling 1+ Anisocytosis PRESENT Schistocytes OCCASIONAL Sodium Level 137 mmol/L Potassium Level 3.6 mmol/L Chloride Level 103 mmol/L Carbon Dioxide Level 25 mmol/L Anion Gap 9.0 mmol/L Blood Urea Nitrogen 24 mg/dl Creatinine 1.90 mg/dl Est Creatinine Clear Calc Drug Dose 33.0 ml/min Estimated GFR () 33.1 Estimated GFR (Non- 28.6 BUN/Creatinine Ratio 12.6 Random Glucose 102 mg/dl Calcium Level 8.2 mg/dl Platelet Estimate NORMAL Prothrombin Time 13.1 SECONDS Prothromb Time International Ratio 1.2 Activated Partial Thromboplast Time 37.8 SECONDS Partial Thromboplastin Ratio 1.5 Total Bilirubin 4.9 mg/dl Direct Bilirubin 3.4 mg/dl Aspartate Amino Transf (AST/SGOT) 196 U/L Alanine Aminotransferase (ALT/SGPT) 97 U/L Alkaline Phosphatase 404 U/L Total Protein 6.1 gm/dl Albumin 3.5 gm/dl Heparin-PF4 Antibody Screen NEG Assessment & Plan 60 yo female with biliary cirrhosis with anuric ileana/atn vs HRS who required intubation, extubated 09/23. on daily dialysis 09/20-09/25; 09/27-?. -for HD again today to cont to optimize volume/clearance -anticipate daily dialysis for at least next 2-3 days and will follow closely Appreciate consult
[2016-09-28] MEDS: FLUCONAZOLE 200MG / NSS IV SCH (18:44)
[2016-09-28] MEDS: URSODIOL 300 MG CAP PO SCH (20:54)
--- NOTE | 2016-09-28 22:17 | Progress Note ---
Medicine Progress Note Date & Time of Visit: Sep 28, 2016 at 13:15 . Subjective No new concerns/problems. Az- hasn't been home since July. No fever. No chest pain. No cough or shortness of breath. Some nausea, but PO intake improved. Intermittent loose stools. Underwent hemodialysis earlier today. . Objective Last 8 Hrs Date Time Temp Pulse Resp B/P (MAP) Pulse Ox O2 Delivery O2 Flow Rate FiO2 09/28/16 20:00 36.8 09/28/16 20:00 92 Room Air 09/28/16 18:00 97 31 100/50 (67) 92 09/28/16 16:01 36.6 104 27 90/49 (63) 93 09/28/16 16:00 94 Room Air Physical Exam: General- no acute distress Eyes- sclerae icteric Lungs- clear to auscultation Heart- RRR Abdomen- + BS, slightly distended, soft, nontender Extremities- 1-2+ pretibial edema; maricarmen right shoulder / humerus; right elbow protector Neuro- alert, oriented . Laboratory Results: Last 24 Hours Test 09/28/16 05:18 09/28/16 12:57 White Blood Count 29.88 K/uL 43.99 K/uL Red Blood Count 2.27 M/uL 2.53 M/uL Hemoglobin 7.1 g/dL 7.8 g/dL Hematocrit 20.6 % 22.9 % Mean Corpuscular Volume 90.7 fL 90.5 fL Mean Corpuscular Hemoglobin 31.3 pg 30.8 pg Mean Corpuscular Hemoglobin Concent 34.5 g/dl 34.1 g/dl Platelet Count 86 K/uL 152 K/uL Mean Platelet Volume 9.8 fL 10.9 fL Neutrophils (%) (Auto) 87.3 % Lymphocytes (%) (Auto) 4.2 % Monocytes (%) (Auto) 5.0 % Eosinophils (%) (Auto) 0.9 % Basophils (%) (Auto) 0.1 % Neutrophils # (Auto) 26.08 K/uL Lymphocytes # (Auto) 1.26 K/uL Monocytes # (Auto) 1.50 K/uL Eosinophils # (Auto) 0.27 K/uL Basophils # (Auto) 0.03 K/uL RDW Standard Deviation 59.2 fL 60.3 fL RDW Coefficient of Variation 20.2 % 21.1 % Immature Granulocyte % (Auto) 2.5 % Immature Granulocyte # (Auto) 0.74 K/uL Polychromasia 1+ Basophilic Stippling 1+ Anisocytosis PRESENT Schistocytes OCCASIONAL Sodium Level 137 mmol/L Potassium Level 3.6 mmol/L Chloride Level 103 mmol/L Carbon Dioxide Level 25 mmol/L Anion Gap 9.0 mmol/L Blood Urea Nitrogen 24 mg/dl Creatinine 1.90 mg/dl Est Creatinine Clear Calc Drug Dose 33.0 ml/min Estimated GFR () 33.1 Estimated GFR (Non- 28.6 BUN/Creatinine Ratio 12.6 Random Glucose 102 mg/dl Calcium Level 8.2 mg/dl Platelet Estimate NORMAL Prothrombin Time 13.1 SECONDS Prothromb Time International Ratio 1.2 Activated Partial Thromboplast Time 37.8 SECONDS Partial Thromboplastin Ratio 1.5 Total Bilirubin 4.9 mg/dl Direct Bilirubin 3.4 mg/dl Aspartate Amino Transf (AST/SGOT) 196 U/L Alanine Aminotransferase (ALT/SGPT) 97 U/L Alkaline Phosphatase 404 U/L Total Protein 6.1 gm/dl Albumin 3.5 gm/dl Heparin-PF4 Antibody Screen NEG Assessment & Plan CARDIOVASCULAR Systolic blood pressures running in the 90s. Continue midodrine. RESPIRATORY Experienced acute hypoxic respiratory failure 09/20/16 secondary to fluid overload from IV fluids and albumin; may have aspirated as well. Required intubation/mechanical ventilation. Pulmonary edema improved with dialysis. Extubated. Now oxygenating well on room air. GI Underlying biliary cirrhosis with portal hypertension. GI consulted. Continue rifaximin. Nutrition consulted. NGT removed. Advance diet as tolerated. Chronic kidney disease with acute kidney injury. Management per Nephrology. Placement of hemodialysis catheter planned for today. NEURO Altered mental status secondary to multifactorial delirium. Head CT negative for acute event. Now alert and oriented 3. Continue rifaximin for hepatic encephalopathy. ID Received IV vancomycin and piperacillin/tazobactam for possible aspiration pneumonia. Receiving fluconazole for Melissa albicans noted in sputum and bronchial washings. Loose stools - negative for C. difficile yesterday. WBC elevated @ 29,880 this morning, but afebrile. HEME Hgb 7.1 this morning. No need for transfusion at this time. Plts 86,000. HIT screen ordered. VTE PROPHYLAXIS SQ heparin. DISPOSITION To be determined. Anticipate need for skilled care or inpatient rehabilitation. . Current Inpatient Medications: Current Inpatient Medications Medications (Trade) Dose Ordered Sig/Michael Route Start Time Stop Time Status Last Admin Dose Admin Miconazole Nitrate (Desenex Powder) 1 appln BID EXT 09/17/16 21:00 10/17/16 20:59 09/27/16 21:00 1 APPLN Midodrine (Proamatine Tab) 5 mg TID@0800,1200,1800 PO 09/19/16 18:00 10/19/16 17:59 09/28/16 18:44 5 MG Levalbuterol (Xopenex 0.63 Mg/ 3 Ml Neb) 0.63 mg Q6H PRN INH 09/20/16 08:30 10/20/16 08:29 Fentanyl Citrate (Fentanyl Inj) 50 mcg Q1H PRN IV 09/20/16 21:45 10/04/16 21:44 Future Hold 09/21/16 04:14 50 MCG Rifaximin (Xifaxan Tab) 550 mg BID PO 09/22/16 21:00 10/22/16 20:59 09/28/16 20:54 550 MG Lactulose (Chronulac Syrup) 30 gm QID PRN PO 09/22/16 10:30 10/23/16 10:29 09/22/16 11:31 30 GM Lactulose (Chronulac Syrup) 30 gm QID PO 09/23/16 09:00 10/23/16 08:59 Future Hold 09/25/16 08:10 30 GM Fluconazole/ Sodium Chloride 200 mg/Prmx 100 ml @ 100 mls/hr DAILY@1800 IV 09/23/16 18:00 09/30/16 17:59 09/28/16 18:44 100 MLS/HR Phytonadione (Mephyton Tab) 5 mg DAILY PO 09/24/16 10:30 10/24/16 10:29 09/28/16 09:06 5 MG Multivitamins (Multivitamin Tab) 1 tab QAM PO 09/25/16 09:00 10/25/16 08:59 09/28/16 09:07 1 TAB Heparin Sodium (Porcine) (Heparin 10 Unit/ ml 5 ml Flush) 5 ml PRN PRN FLUSH 09/25/16 02:00 10/25/16 01:59 Metoclopramide HCl (Reglan Inj) 5 mg Q6H PRN IV 09/27/16 12:45 10/25/16 12:44 Prednisone (PredniSONE TAB) 5 mg DAILY PO 09/28/16 09:00 10/28/16 08:59 09/28/16 09:06 5 MG Enteral Nutritional Formula (Boost) 1 can BIDM PO 09/28/16 07:15 10/28/16 07:14 09/28/16 16:39 1 CAN Ursodiol (Actigall Cap) 600 mg BID PO 09/28/16 21:00 10/28/16 20:59 09/28/16 20:54 600 MG Pantoprazole Sodium (Protonix Tab) 40 mg QAM PO 09/29/16 09:00 10/29/16 08:59
[2016-09-29] VITALS (60 sets, daily range): BP systolic 86–143; BP diastolic 41–86; PULSE 86–102; TEMP 36.6–36.9; O2SAT 88–100
[2016-09-29 05:59] LABS: HEMATOCRIT 17.3 % (37-47); MEAN CORPUSCULAR HEMOGLOBIN 29.8 pg (25-34); MEAN CORPUSCULAR HGB CONC 32.4 g/dl (32-36); MEAN PLATELET VOLUME 11.3 fL (7.4-10.4); PLATELET COUNT 116 K/uL (130-400); RED BLOOD COUNT 1.88 M/uL (4.2-5.4); WHITE BLOOD COUNT 22.11 K/uL (4.8-10.8)
[2016-09-29 06:06] LABS: BUN/CREATININE RATIO 10.9 (10-20); CALCIUM 8.5 mg/dl (8.5-10.1); CREATININE 1.7 mg/dl (0.60-1.20); MAGNESIUM 1.9 mg/dl (1.8-2.4); POTASSIUM 3.6 mmol/L (3.5-5.1)
[2016-09-29 06:13] LABS: ALB/GLOB RATIO 1.1 (0.9-2); PHOSPHORUS 1.8 mg/dl (2.5-4.9)
[2016-09-29 06:42] LABS: ANISOCYTOSIS PRESENT; BASO ABS # 0.01 K/uL (0-0.2); COMPLETE YES; EOS % 1.7 %; IG% 1.5 %; LYMPH % 6.1 %; LYMPH ABS # 1.34 K/uL (1.2-3.4); MONO % 7.6 %; NEUT % 83.1 %; POLYCHROMASIA 1+; SCHISTOCYTES OCCASIONAL
--- NOTE | 2016-09-29 06:55 | DIAGNOSTIC IMAGING REPORT ---
CHEST ONE VIEW PORTABLE HISTORY: 60 years-old Female Severe leukocytosis COMPARISON: Portable chest radiograph 09/24/2016 TECHNIQUE: Upright portable AP view of the chest FINDINGS: The patient is rotated and sidebend the left which mildly limits the study. There is been interval extubation. There has also been removal of the enteric tube. Right internal jugular dual-lumen hemodialysis catheter is seen with distal tip in the region of the right atrium. Cardiac silhouette is again enlarged. There is atherosclerosis of the aorta. No pneumothorax. There is improved aeration of the bilateral lungs with persistent minimal background interstitial coarsening. There are small bilateral pleural effusions with persistent bibasilar subsegmental opacities, right greater than left. There has been recent reverse right total shoulder arthroplasty with skin maricarmen noted. There is partially imaged hardware of the left proximal humerus. IMPRESSION: 1. Cardiomegaly with mildly improved pulmonary edema pattern, trace bilateral pleural effusions and persistent subsegmental right greater than left bibasilar opacities suggesting pneumonia or atelectasis. 2. interval extubation along with removal of enteric tube. The above report was generated using voice recognition software. It may contain grammatical, syntax or spelling errors. Electronically signed by: Vikash Ayala M.D. 09/29/2016 6:53 AM Dictated Date/Time: 09/29/2016 6:51 AM
[2016-09-29] MEDS: BOOST VANILLA PO SCH ×4 (07:49→16:51)
[2016-09-29] MEDS: PHYTONADIONE 5 MG TAB PO SCH (07:49)
[2016-09-29] MEDS: MULTIVITAMIN TAB PO SCH (07:49)
[2016-09-29] MEDS: URSODIOL 300 MG CAP PO SCH ×2 (07:49→20:30)
[2016-09-29] MEDS: RIFAXIMIN TAB 550 MG TAB PO SCH ×2 (07:50→20:30)
[2016-09-29] MEDS: PANTOprazole SOD 40 MG TAB PO SCH (07:50)
[2016-09-29] MEDS: MICONAZOLE NITRATE POWDER 43 GM EXT SCH ×2 (07:50→20:28)
[2016-09-29] MEDS: MIDODRINE 2.5 MG TAB PO SCH ×3 (07:50→17:27)
[2016-09-29] MEDS ORDERED: VANCOMYCIN CONSULT ACTIVE PRN (08:45)
--- NOTE | 2016-09-29 08:52 | DIAGNOSTIC IMAGING REPORT ---
(CHEST) THORAX WITHOUT CT DOSE: HISTORY: Unexplained drop in hemoglobin to 5.6 TECHNIQUE: Multiaxial CT images of the chest were performed without contrast. A dose lowering technique was utilized adhering to the principles of ALARA. COMPARISON: Chest CT 07/27/2016. FINDINGS: There is respiratory motion artifact. The central airways are patent. No pneumothorax. No pleural effusions. Evidence for prior TIPS procedure. Perihepatic ascites is again noted. Skin maricarmen along the anterior aspect of the right shoulder. There is a right jugular central venous catheter which terminates in the superior cavoatrial junction. The heart remains mildly enlarged. Mild subcutaneous fat stranding and gas at the site of catheter insertion is likely due to the recent postoperative change. No large hematoma identified within the chest. No mediastinal or hilar lymphadenopathy. Left-sided nephrolithiasis. Postoperative changes within the shoulders including an interval right total shoulder arthroplasty. Old, healed left-sided rib fractures. Scattered patchy groundglass airspace opacities, right greater than left. Right middle lobe and lower lobe basilar densities. Mild elevation of the right hemidiaphragm. IMPRESSION: 1. Scattered patchy groundglass airspace opacities within the lungs, right greater than left. This is nonspecific and could represent asymmetric pulmonary edema or a pneumonia. 2. Right basilar consolidation favors atelectasis from the elevated right hemidiaphragm. 3. Postoperative changes as described above. No large hematoma identified within the chest. 4. Perihepatic ascites is again noted. Electronically signed by: Zachary Clark M.D. 09/29/2016 8:51 AM Dictated Date/Time: 09/29/2016 8:41 AM
--- NOTE | 2016-09-29 08:52 | DIAGNOSTIC IMAGING REPORT ---
ABD/PELVIS NO IV OR ORAL CONT HISTORY: 60 years-old Female Unexplained drop in hb to 5.6 acute anemia. History of cirrhotic liver disease with TIPS shunt. COMPARISON: CT abdomen and pelvis 08/09/2016, portable chest radiograph 09/29/2016. TECHNIQUE: Multiple axial CT images of the abdomen and pelvis were obtained without the use of IV contrast. A dose lowering technique was used consistent with the principals of TATYANA. FINDINGS: There is a trace right pleural effusion. Subsegmental bibasilar consolidative opacities are present, right greater than left with right basilar air bronchograms. There is no pneumoperitoneum identified. Imaged inferior cardiac chambers are mildly enlarged. Dual-lumen hemodialysis catheter is noted with distal tip in the right atrium. There is cirrhotic morphology of the liver. A TIPS shunt is present with patency not confirmed on this noncontrast study. The spleen, pancreas and adrenal glands are within normal limits. The gallbladder appears to be partially collapsed. There is a punctate area of increased attenuation within the interpolar left kidney suspicious for nonobstructing calculus. No obstructive uropathy. Right kidney is unremarkable. Nondependent air is present within a mildly distended urinary bladder lumen. Uterus is unremarkable. Bilateral fallopian tube occlusion devices are noted. There is mild atherosclerosis of the abdominal aorta. No bulky retroperitoneal adenopathy or retroperitoneal hematoma identified. High attenuating material is seen within the gastric lumen suggesting ingested material. There is no bowel obstruction. Moderate volume of formed stool involves the ascending and transverse colon. Nondilated appendix is noted. Minimal volume of intra-abdominal and intrapelvic ascites is noted with mild diffuse body wall edema. Ascites tracks into a fat filled left inguinal hernia. There is partially imaged metallic hardware of the bilateral humeri. The bones are moderately demineralized. Compression deformities of the L3 and T11 vertebral bodies are redemonstrated. IMPRESSION: 1. No acute intra-abdominal or intrapelvic abnormality identified to correlate with the patient's acute anemia. No retroperitoneal hematoma. 2. Cirrhotic morphology of the liver with TIPS shunt noted. Mild intra-abdominal and intrapelvic ascites is noted with mild diffuse body wall edema. 3. Unchanged compression deformities of the T11 and L3 vertebral bodies. 4. Punctate nonobstructing calculus of the interpolar left kidney. The above report was generated using voice recognition software. It may contain grammatical, syntax or spelling errors. Electronically signed by: Vikash Ayala M.D. 09/29/2016 8:51 AM Dictated Date/Time: 09/29/2016 8:41 AM
[2016-09-29] MEDS ORDERED: VANCOMYCIN INJ 500 MG in SODIUM CHLORIDE 0.9% 250ML 250 ML IV SCH (09:00)
[2016-09-29] MEDS ORDERED: VANCOMYCIN INJ 750 MG in SODIUM CHLORIDE 0.9% 250ML 250 ML IV ONE (09:00)
[2016-09-29] MEDS ORDERED: IMIPENEM/CILASTATIN CONSULT ACTIVE SCH (09:19)
[2016-09-29] MEDS ORDERED: FENTANYL CITRATE INJ 50 MCG/1 ML 2 ML VIAL ONE (09:28)
--- NOTE | 2016-09-29 09:47 | Nephrology Progress Note ---
Nephrology Progress Note Date of Service: Sep 29, 2016. Subjective had 2L UF yesterday; this am hgb dropped and for CT and pRBC; c/o "butt pain" no where else; not dyspneic Objective Date Time Temp Pulse Resp B/P (MAP) Pulse Ox O2 Delivery O2 Flow Rate FiO2 09/29/16 09:22 36.6 98 16 112/47 98 2.0 09/29/16 06:00 92 25 117/55 (80) 94 09/29/16 05:00 94 22 110/48 (57) 93 09/29/16 04:00 94 Nasal Cannula 2.0 09/29/16 04:00 36.8 09/29/16 04:00 94 22 86/42 (65) 97 09/29/16 03:00 100 24 91/41 (64) 94 09/29/16 02:00 88 22 103/43 (66) 94 09/29/16 01:00 92 23 94/47 (64) 97 09/29/16 00:21 89 19 105/54 (66) 94 09/29/16 00:01 36.8 09/28/16 23:59 97 Nasal Cannula 2.0 09/28/16 23:00 93 23 87/39 (59) 91 09/28/16 22:00 90 22 98/42 (55) 91 09/28/16 21:01 94 29 101/70 (77) 91 09/28/16 20:01 92 10 93/40 (64) 93 09/28/16 20:00 36.8 09/28/16 20:00 92 Room Air 09/28/16 19:00 86 22 99/43 (69) 93 09/28/16 18:00 97 31 100/50 (67) 92 09/28/16 16:01 36.6 104 27 90/49 (63) 93 09/28/16 16:00 94 Room Air 09/28/16 14:00 99 22 119/72 (88) 91 09/28/16 13:32 36.8 92 102/65 (77) 09/28/16 13:00 92 95/62 09/28/16 12:45 97 108/63 09/28/16 12:30 101 110/65 09/28/16 12:15 98 101/61 09/28/16 12:00 92 Room Air 09/28/16 12:00 36.4 99 25 113/57 (75) 09/28/16 12:00 98 113/57 09/28/16 11:45 104 99/60 09/28/16 11:30 98 97/65 09/28/16 11:15 96 99/59 09/28/16 11:00 101 103/59 09/28/16 10:45 99 102/60 09/28/16 10:30 107 114/63 09/28/16 10:15 99 96/54 09/28/16 10:00 92 22 105/56 (72) 93 Room Air 09/28/16 10:00 101 105/56 09/28/16 09:50 37.1 94 112/59 (76) Physical Exam: General-on [id number], today appropriate mostly Eyes-+scleral icterus ENT-dry mm Neck-supple Lungs-improved air entry BL still some crackles Heart-rrr Abdomen-bs+/soft; no perez Extremities-2+ dependent and scant peripheral edema; R arm in sling Neuro-oriented, fluent/appropriate speech Current Inpatient Medications Medications (Trade) Dose Ordered Sig/Michael Route Start Time Stop Time Status Last Admin Dose Admin Miconazole Nitrate (Desenex Powder) 1 appln BID EXT 09/17/16 21:00 10/17/16 20:59 09/27/16 21:00 1 APPLN Midodrine (Proamatine Tab) 5 mg TID@0800,1200,1800 PO 09/19/16 18:00 10/19/16 17:59 09/29/16 07:50 5 MG Levalbuterol (Xopenex 0.63 Mg/ 3 Ml Neb) 0.63 mg Q6H PRN INH 09/20/16 08:30 10/20/16 08:29 Fentanyl Citrate (Fentanyl Inj) 50 mcg Q1H PRN IV 09/20/16 21:45 10/04/16 21:44 Future Hold 09/21/16 04:14 50 MCG Rifaximin (Xifaxan Tab) 550 mg BID PO 09/22/16 21:00 10/22/16 20:59 09/29/16 07:50 550 MG Lactulose (Chronulac Syrup) 30 gm QID PRN PO 09/22/16 10:30 10/23/16 10:29 09/22/16 11:31 30 GM Lactulose (Chronulac Syrup) 30 gm QID PO 09/23/16 09:00 10/23/16 08:59 Future Hold 09/25/16 08:10 30 GM Fluconazole/ Sodium Chloride 200 mg/Prmx 100 ml @ 100 mls/hr DAILY@1800 IV 09/23/16 18:00 09/30/16 17:59 09/28/16 18:44 100 MLS/HR Phytonadione (Mephyton Tab) 5 mg DAILY PO 09/24/16 10:30 10/24/16 10:29 09/29/16 07:49 5 MG Multivitamins (Multivitamin Tab) 1 tab QAM PO 09/25/16 09:00 10/25/16 08:59 09/29/16 07:49 1 TAB Heparin Sodium (Porcine) (Heparin 10 Unit/ ml 5 ml Flush) 5 ml PRN PRN FLUSH 09/25/16 02:00 10/25/16 01:59 Metoclopramide HCl (Reglan Inj) 5 mg Q6H PRN IV 09/27/16 12:45 10/25/16 12:44 Prednisone (PredniSONE TAB) 5 mg DAILY PO 09/28/16 09:00 10/28/16 08:59 09/29/16 07:49 5 MG Enteral Nutritional Formula (Boost) 1 can BIDM PO 09/28/16 07:15 10/28/16 07:14 09/29/16 07:49 1 CAN Ursodiol (Actigall Cap) 600 mg BID PO 09/28/16 21:00 10/28/16 20:59 09/29/16 07:49 600 MG Pantoprazole Sodium (Protonix Tab) 40 mg QAM PO 09/29/16 09:00 10/29/16 08:59 09/29/16 07:50 40 MG Heparin Sodium (Porcine) (No Heparin In Dialysis) 1 ea 0730 N/A 09/29/16 07:30 09/29/16 12:00 Albumin Human (Albumin 25%) 12.5 gm 0800,0930 IV 09/29/16 08:00 09/29/16 12:00 Vancomycin HCl (Consult) 1 ea UD PRN N/A 09/29/16 08:45 10/29/16 08:44 Imipenem/ Cilastatin Sodium 500 mg/Dextrose 110 ml @ 100 mls/hr AFTER HEMODIALYSIS ONCE IV 09/29/16 11:00 09/29/16 12:05 Imipenem/ Cilastatin Sodium (Consult) 1 ea UD N/A 09/29/16 09:19 10/29/16 09:18 Vancomycin HCl 1000 mg/Sodium Chloride 270 ml @ 125 mls/hr AFTER HEMODIALYSIS ONCE IV 09/29/16 11:00 09/29/16 13:09 Imipenem/ Cilastatin Sodium 500 mg/Dextrose 110 ml @ 100 mls/hr Q12H IV 09/30/16 04:00 10/10/16 03:59 Last 24 Hours Test 09/28/16 12:57 09/29/16 05:16 White Blood Count 43.99 K/uL 22.11 K/uL Red Blood Count 2.53 M/uL 1.88 M/uL Hemoglobin 7.8 g/dL 5.6 g/dL Hematocrit 22.9 % 17.3 % Mean Corpuscular Volume 90.5 fL 92.0 fL Mean Corpuscular Hemoglobin 30.8 pg 29.8 pg Mean Corpuscular Hemoglobin Concent 34.1 g/dl 32.4 g/dl RDW Standard Deviation 60.3 fL 67.8 fL RDW Coefficient of Variation 21.1 % 22.1 % Platelet Count 152 K/uL 116 K/uL Mean Platelet Volume 10.9 fL 11.3 fL Platelet Estimate NORMAL Prothrombin Time 13.1 SECONDS Prothromb Time International Ratio 1.2 Activated Partial Thromboplast Time 37.8 SECONDS Partial Thromboplastin Ratio 1.5 Total Bilirubin 4.9 mg/dl 4.6 mg/dl Direct Bilirubin 3.4 mg/dl Aspartate Amino Transf (AST/SGOT) 196 U/L 156 U/L Alanine Aminotransferase (ALT/SGPT) 97 U/L 83 U/L Alkaline Phosphatase 404 U/L 365 U/L Total Protein 6.1 gm/dl 4.7 gm/dl Albumin 3.5 gm/dl 2.5 gm/dl Heparin-PF4 Antibody Screen NEG Neutrophils (%) (Auto) 83.1 % Lymphocytes (%) (Auto) 6.1 % Monocytes (%) (Auto) 7.6 % Eosinophils (%) (Auto) 1.7 % Basophils (%) (Auto) 0.0 % Neutrophils # (Auto) 18.35 K/uL Lymphocytes # (Auto) 1.34 K/uL Monocytes # (Auto) 1.69 K/uL Eosinophils # (Auto) 0.38 K/uL Basophils # (Auto) 0.01 K/uL Immature Granulocyte % (Auto) 1.5 % Immature Granulocyte # (Auto) 0.34 K/uL Nucleated RBC Absolute Count (auto) 0.04 K/uL Nucleated Red Blood Cells % 0.2 % Polychromasia 1+ Basophilic Stippling 1+ Anisocytosis PRESENT Schistocytes OCCASIONAL Sodium Level 138 mmol/L Potassium Level 3.6 mmol/L Chloride Level 103 mmol/L Carbon Dioxide Level 28 mmol/L Anion Gap 7.0 mmol/L Blood Urea Nitrogen 19 mg/dl Creatinine 1.70 mg/dl Est Creatinine Clear Calc Drug Dose 36.4 ml/min Estimated GFR () 37.9 Estimated GFR (Non- 32.7 BUN/Creatinine Ratio 10.9 Random Glucose 103 mg/dl Calcium Level 8.5 mg/dl Phosphorus Level 1.8 mg/dl Magnesium Level 1.9 mg/dl Ammonia < 10.0 umol/L Globulin 2.2 gm/dl Albumin/Globulin Ratio 1.1 Procalcitonin 2.65 ng/ml Assessment & Plan 60 yo female with biliary cirrhosis with anuric ileana/atn vs HRS who required intubation, extubated 09/23. on daily dialysis 09/20-09/25; 09/27-?. -for HD again today to cont to optimize volume/clearance -anticipate daily dialysis for at least next 2-3 days and will follow closely -acute on chronic anemia >> for transfusion today on HD Appreciate consult
--- NOTE | 2016-09-29 09:59 | Pharmacy Progress Note ---
Pharmacy Abx Initial Consult Date of Service Sep 29, 2016. Pharmacy Dosing Scope Date of Consult: 09/29/16 Consultation requested by: Dr. Tong Pharmacy is consulted to initiate VANCOMYCIN and PRIMAXIN IV therapy, order appropriate labs and adjust drug dose/frequency. Subjective Antibiotic therapy is being reinitiated today due to elevated WBC, elevated procalcitonin and clinical deterioration - concern for intraabdominal infxn. Objective Height (Feet): 5 Height (Inches): 5.00 Weight (Kilograms): 76.200 Vital Signs (Past 12Hrs) Vital Signs Past 12 Hours Date Time Temp Pulse Resp B/P (MAP) Pulse Ox O2 Delivery O2 Flow Rate FiO2 09/29/16 09:22 36.6 98 16 112/47 98 2.0 09/29/16 06:00 92 25 117/55 (80) 94 09/29/16 05:00 94 22 110/48 (57) 93 09/29/16 04:00 94 Nasal Cannula 2.0 09/29/16 04:00 36.8 09/29/16 04:00 94 22 86/42 (65) 97 09/29/16 03:00 100 24 91/41 (64) 94 09/29/16 02:00 88 22 103/43 (66) 94 09/29/16 01:00 92 23 94/47 (64) 97 09/29/16 00:21 89 19 105/54 (66) 94 09/29/16 00:01 36.8 09/28/16 23:59 97 Nasal Cannula 2.0 09/28/16 23:00 93 23 87/39 (59) 91 09/28/16 22:00 90 22 98/42 (55) 91 Lab Results (24Hrs) Laboratory Tests (24 Hours) Test 09/29/16 05:16 White Blood Count 22.11 K/uL (4.8-10.8) #H Red Blood Count 1.88 M/uL (4.2-5.4) L Hemoglobin 5.6 g/dL (12.0-16.0) *L Hematocrit 17.3 % (37-47) *L Mean Corpuscular Volume 92.0 fL (80-100) Mean Corpuscular Hemoglobin 29.8 pg (25-34) Mean Corpuscular Hemoglobin Concent 32.4 g/dl (32-36) Platelet Count 116 K/uL (130-400) L Mean Platelet Volume 11.3 fL (7.4-10.4) H Neutrophils (%) (Auto) 83.1 % Lymphocytes (%) (Auto) 6.1 % Monocytes (%) (Auto) 7.6 % Eosinophils (%) (Auto) 1.7 % Basophils (%) (Auto) 0.0 % Neutrophils # (Auto) 18.35 K/uL (1.4-6.5) H Lymphocytes # (Auto) 1.34 K/uL (1.2-3.4) Monocytes # (Auto) 1.69 K/uL (0.11-0.59) H Eosinophils # (Auto) 0.38 K/uL (0-0.5) Basophils # (Auto) 0.01 K/uL (0-0.2) Procalcitonin 2.65 ng/ml (0-0.5) H Micro Results Date/Time Source Procedure Growth Status 09/21/16 04:26 Nasal MRSA DNA Surveillance Screen - Final Specimen Positive for MRSA by DNA Probe Complete 09/27/16 00:00 Stool C.difficile Toxin B Gene (PCR) - Final No C. difficile toxin B gene detected Complete 09/21/16 13:18 Bronchial Washings Right Middle Lobe Fungal Smear - Final Resulted 09/21/16 13:18 Fungal Culture - Preliminary Melissa Albicans Yeast Not Melissa Albicans Resulted 09/21/16 13:18 Bronchial Washings Right Middle Lobe Acid Fast Stain - Final Resulted 09/21/16 13:18 Bronchial Washings Right Middle Lobe Mycobacterial Culture - Preliminary NO ACID-FAST BACILLI ISOLATED - REPOR... Resulted 09/21/16 13:18 Bronchial Washings Right Middle Lobe Gram Stain - Final Complete 09/21/16 13:18 Bronchoalveolar Lavage Culture - Final Melissa Albicans Complete 09/21/16 04:26 Sputum Trach. Tube Suction Gram Stain - Final Complete 09/21/16 04:26 Sputum Culture - Final Melissa Albicans Complete 09/20/16 19:15 Urine,Catheterized Urine Culture - Final NO GROWTH - LESS THAN 1,000 COLONIES/ML Complete Risk Factors for Resistance * Hospitalization for 48 hours or more within the past 90 days * Current hospitalization > 5 days * Antimicrobial use within the last 90 days Assessment & Plan Assessment * Patient had received a 7 day course of Vancomycin + Zosyn for aspiration pneumonia and stopped therapy on 09/27/16 * Fluconazole was started on 09/22/16 and continues today for c albicans in pulm cx's * Today the patient has deteriorated clinically and empiric Vancomycin + Primaxin are being added for coverage of potential intra-abd infxn, possible line infxn Plan Vancomycin IV * Patient remains hemodialysis dependent * She has not received vancomycin since 09/25, however random vancomycin level on 09/27 AM was therapeutic at 19.9. She has been dialyzed 3 times since this level was obtained and is likely subtherapeutic at this time, but likely still has some vancomycin on board * Will give 1gm IV dose x 1 today after HD complete * Recheck random vancomycin level w/ AM labs tomorrow to guide redosing; plan to redose when level 15-20 or anticipated to be within this range after a HD treatment Primaxin: * Indicated dose for patients on hemodialysis w/ severe infection: 500mg IV Q 12 hours with doses administered after HD on days of dialysis if dose is due immediately prior to or during the HD treatment. Pharmacy will continue to follow and will adjust dose/frequency as necessary. Thank you.
--- NOTE | 2016-09-29 10:07 | Progress Note ---
Medicine Progress Note Date & Time of Visit: Sep 29, 2016 at 07:30 . Subjective No new problems overnight. No fever, chills, sweats. No chest pain. No cough or SOB. No nausea or vomiting. No abdominal pain. 4 loose stools yesterday without melena or hematochezia. . Objective Last 8 Hrs Date Time Temp Pulse Resp B/P (MAP) Pulse Ox O2 Delivery O2 Flow Rate FiO2 09/29/16 09:22 36.6 98 16 112/47 98 2.0 09/29/16 08:00 99 Nasal Cannula 2.0 09/29/16 06:00 92 25 117/55 (80) 94 09/29/16 05:00 94 22 110/48 (57) 93 09/29/16 04:00 94 Nasal Cannula 2.0 09/29/16 04:00 36.8 09/29/16 04:00 94 22 86/42 (65) 97 09/29/16 03:00 100 24 91/41 (64) 94 09/29/16 02:00 88 22 103/43 (66) 94 Physical Exam: General- no acute distress Eyes- sclerae icteric Lungs- clear to auscultation Heart- RRR Abdomen- + BS, slightly distended, soft, nontender Extremities- 1-2+ pretibial edema; maricarmen right shoulder / humerus; right elbow protector Neuro- alert, oriented . Laboratory Results: Last 24 Hours Test 09/28/16 12:57 09/29/16 05:16 White Blood Count 43.99 K/uL 22.11 K/uL Red Blood Count 2.53 M/uL 1.88 M/uL Hemoglobin 7.8 g/dL 5.6 g/dL Hematocrit 22.9 % 17.3 % Mean Corpuscular Volume 90.5 fL 92.0 fL Mean Corpuscular Hemoglobin 30.8 pg 29.8 pg Mean Corpuscular Hemoglobin Concent 34.1 g/dl 32.4 g/dl RDW Standard Deviation 60.3 fL 67.8 fL RDW Coefficient of Variation 21.1 % 22.1 % Platelet Count 152 K/uL 116 K/uL Mean Platelet Volume 10.9 fL 11.3 fL Platelet Estimate NORMAL Prothrombin Time 13.1 SECONDS Prothromb Time International Ratio 1.2 Activated Partial Thromboplast Time 37.8 SECONDS Partial Thromboplastin Ratio 1.5 Total Bilirubin 4.9 mg/dl 4.6 mg/dl Direct Bilirubin 3.4 mg/dl Aspartate Amino Transf (AST/SGOT) 196 U/L 156 U/L Alanine Aminotransferase (ALT/SGPT) 97 U/L 83 U/L Alkaline Phosphatase 404 U/L 365 U/L Total Protein 6.1 gm/dl 4.7 gm/dl Albumin 3.5 gm/dl 2.5 gm/dl Heparin-PF4 Antibody Screen NEG Neutrophils (%) (Auto) 83.1 % Lymphocytes (%) (Auto) 6.1 % Monocytes (%) (Auto) 7.6 % Eosinophils (%) (Auto) 1.7 % Basophils (%) (Auto) 0.0 % Neutrophils # (Auto) 18.35 K/uL Lymphocytes # (Auto) 1.34 K/uL Monocytes # (Auto) 1.69 K/uL Eosinophils # (Auto) 0.38 K/uL Basophils # (Auto) 0.01 K/uL Immature Granulocyte % (Auto) 1.5 % Immature Granulocyte # (Auto) 0.34 K/uL Nucleated RBC Absolute Count (auto) 0.04 K/uL Nucleated Red Blood Cells % 0.2 % Polychromasia 1+ Basophilic Stippling 1+ Anisocytosis PRESENT Schistocytes OCCASIONAL Sodium Level 138 mmol/L Potassium Level 3.6 mmol/L Chloride Level 103 mmol/L Carbon Dioxide Level 28 mmol/L Anion Gap 7.0 mmol/L Blood Urea Nitrogen 19 mg/dl Creatinine 1.70 mg/dl Est Creatinine Clear Calc Drug Dose 36.4 ml/min Estimated GFR () 37.9 Estimated GFR (Non- 32.7 BUN/Creatinine Ratio 10.9 Random Glucose 103 mg/dl Calcium Level 8.5 mg/dl Phosphorus Level 1.8 mg/dl Magnesium Level 1.9 mg/dl Ammonia < 10.0 umol/L Globulin 2.2 gm/dl Albumin/Globulin Ratio 1.1 Procalcitonin 2.65 ng/ml Assessment & Plan CARDIOVASCULAR Systolic blood pressures generally running in the 90s - low 100s. Continue midodrine. RESPIRATORY Experienced acute hypoxic respiratory failure 09/20/16 secondary to fluid overload from IV fluids and albumin; may have aspirated as well. Required intubation/mechanical ventilation. Pulmonary edema improved with dialysis. Extubated. Now oxygenating well on room air alternating with NC. GI Underlying biliary cirrhosis with portal hypertension. GI consulted. Continue rifaximin. Nutrition consulted. NGT removed. Advance diet as tolerated. Chronic kidney disease with acute kidney injury. Management per Nephrology. Placement of hemodialysis catheter 09/27. NEURO Altered mental status secondary to multifactorial delirium. Head CT negative for acute event. Now alert and usually oriented 3. Continue rifaximin for hepatic encephalopathy. ID Received IV vancomycin and piperacillin/tazobactam for possible aspiration pneumonia. Receiving fluconazole for Melissa albicans noted in sputum and bronchial washings. Loose stools - negative for C. difficile 09/27. WBC elevated @ 29,880 yesterday, 43,900 after dialysis yesterday, 22,110 today. Procalcitonin elevated. Chest x-ray shows basilar densities, but clinically pt does not seem to have pneumonia. Consider biliary tract infection, SBP, colitis, line infection, other sources. Consider hemorrhage / hematoma (e.g., retroperitoneal bleed) as etiology of leukocytosis. Discussed with CCM. CT chest / abdomen / pelvis ordered. Broad spectrum antibiotics pending culture results. HEME Hgb 7.1 yesterday, 5.6 today. No gross GI bleeding. CT abdomen and pelvis ordered to look for possible bleed. Plts 86,000 09/28, 116,000 today. Heparin-PF4 AB screen negative. VTE PROPHYLAXIS SQ heparin stopped 09/28 due to thrombocytopenia / anemia. SCD's. DISPOSITION To be determined. Anticipate need for skilled care or inpatient rehabilitation. . Current Inpatient Medications: Current Inpatient Medications Medications (Trade) Dose Ordered Sig/Michael Route Start Time Stop Time Status Last Admin Dose Admin Miconazole Nitrate (Desenex Powder) 1 appln BID EXT 09/17/16 21:00 10/17/16 20:59 09/27/16 21:00 1 APPLN Midodrine (Proamatine Tab) 5 mg TID@0800,1200,1800 PO 09/19/16 18:00 10/19/16 17:59 09/29/16 07:50 5 MG Levalbuterol (Xopenex 0.63 Mg/ 3 Ml Neb) 0.63 mg Q6H PRN INH 09/20/16 08:30 10/20/16 08:29 Fentanyl Citrate (Fentanyl Inj) 50 mcg Q1H PRN IV 09/20/16 21:45 10/04/16 21:44 Future Hold 09/21/16 04:14 50 MCG Rifaximin (Xifaxan Tab) 550 mg BID PO 09/22/16 21:00 10/22/16 20:59 09/29/16 07:50 550 MG Lactulose (Chronulac Syrup) 30 gm QID PRN PO 09/22/16 10:30 10/23/16 10:29 09/22/16 11:31 30 GM Lactulose (Chronulac Syrup) 30 gm QID PO 09/23/16 09:00 10/23/16 08:59 Future Hold 09/25/16 08:10 30 GM Fluconazole/ Sodium Chloride 200 mg/Prmx 100 ml @ 100 mls/hr DAILY@1800 IV 09/23/16 18:00 09/30/16 17:59 09/28/16 18:44 100 MLS/HR Phytonadione (Mephyton Tab) 5 mg DAILY PO 09/24/16 10:30 10/24/16 10:29 09/29/16 07:49 5 MG Multivitamins (Multivitamin Tab) 1 tab QAM PO 09/25/16 09:00 10/25/16 08:59 09/29/16 07:49 1 TAB Heparin Sodium (Porcine) (Heparin 10 Unit/ ml 5 ml Flush) 5 ml PRN PRN FLUSH 09/25/16 02:00 10/25/16 01:59 Metoclopramide HCl (Reglan Inj) 5 mg Q6H PRN IV 09/27/16 12:45 10/25/16 12:44 Prednisone (PredniSONE TAB) 5 mg DAILY PO 09/28/16 09:00 10/28/16 08:59 09/29/16 07:49 5 MG Enteral Nutritional Formula (Boost) 1 can BIDM PO 09/28/16 07:15 10/28/16 07:14 09/29/16 07:49 1 CAN Ursodiol (Actigall Cap) 600 mg BID PO 09/28/16 21:00 10/28/16 20:59 09/29/16 07:49 600 MG Pantoprazole Sodium (Protonix Tab) 40 mg QAM PO 09/29/16 09:00 10/29/16 08:59 09/29/16 07:50 40 MG Heparin Sodium (Porcine) (No Heparin In Dialysis) 1 ea 0730 N/A 09/29/16 07:30 09/29/16 12:00 Albumin Human (Albumin 25%) 12.5 gm 0800,0930 IV 09/29/16 08:00 09/29/16 12:00 Vancomycin HCl (Consult) 1 ea UD PRN N/A 09/29/16 08:45 10/29/16 08:44 Imipenem/ Cilastatin Sodium 500 mg/Dextrose 110 ml @ 100 mls/hr AFTER HEMODIALYSIS ONCE IV 09/29/16 11:00 09/29/16 12:05 Imipenem/ Cilastatin Sodium (Consult) 1 ea UD N/A 09/29/16 09:19 10/29/16 09:18 Vancomycin HCl 1000 mg/Sodium Chloride 270 ml @ 125 mls/hr AFTER HEMODIALYSIS ONCE IV 09/29/16 11:00 09/29/16 13:09 Imipenem/ Cilastatin Sodium 500 mg/Dextrose 110 ml @ 100 mls/hr Q12H IV 09/30/16 04:00 10/10/16 03:59
--- NOTE | 2016-09-29 10:08 | Critical Care Progress Note ---
Critical Care Progress Note Date of Service Sep 29, 2016. ICU Day ICU Day Number: [address] Cummings Subjective Patient awake, and alert and carrying a conversation. She says she feels fine. She continues to deny chest pain, abdominal pain, SOB on room air, palpitations , or nausea. No lightheadedness, headache, vision changes. She is tolerating PO diet well. She is having some trouble with sleep secondary to pain. The fentanyl dose did help. Objective GENERAL: Responsive, lying in bed, oxygen support via NC on 3L and saturating 100% HEAD: Normocephalic, atraumatic. EYES: Normal sclera and conjunctiva. PERRL. EOMI. Mild scleral icterus. Conjunctiva normal. NECK: Supple, no adenopathy. Able to hold neck up LUNGS: Normal chest wall mechanics, poor air entry. No crackles, or wheezes. No dyspnea upon lying flat HEART: S1 and S2 normal, systolic murmur appreciated in the aortic region ABDOMEN: Abdomen soft - no ascites appreciated, bowel sounds present, no masses , no rebound or guarding. Mild tenderness on LLQ at site of previous heparin SC injections SKIN: Warm, pink, dry. No rashes. Mildly jaundice. Bruising on right neck, secondary to PermCath insertion, and on left arm from previous trial of PICC insertion. Evidence of venostasis on lower limbs. Ulcer on right elbow. EXTREMITIES: [place] exposed on right arm from shoulder surgery. Bilateral 2+ lower extremity edema. Patient able to wiggle fingers and toes. NEURO: A+Ox3, Pupils equal. Cheese Grader strength 4/5 bilaterally. Engaging and asking questions today. (CHEST) THORAX WITHOUT CT DOSE: HISTORY: Unexplained drop in hemoglobin to 5.6 TECHNIQUE: Multiaxial CT images of the chest were performed without contrast. A dose lowering technique was utilized adhering to the principles of ALARA. COMPARISON: Chest CT 07/27/2016. FINDINGS: There is respiratory motion artifact. The central airways are patent. No pneumothorax. No pleural effusions. Evidence for prior TIPS procedure. Perihepatic ascites is again noted. Skin maricaremn along the anterior aspect of the right shoulder. There is a right jugular central venous catheter which terminates in the superior cavoatrial junction. The heart remains mildly enlarged. Mild subcutaneous fat stranding and gas at the site of catheter insertion is likely due to the recent postoperative change. No large hematoma identified within the chest. No mediastinal or hilar lymphadenopathy. Left-sided nephrolithiasis. Postoperative changes within the shoulders including an interval right total shoulder arthroplasty. Old, healed left-sided rib fractures. Scattered patchy groundglass airspace opacities, right greater than left. Right middle lobe and lower lobe basilar densities. Mild elevation of the right hemidiaphragm. IMPRESSION: 1. Scattered patchy groundglass airspace opacities within the lungs, right greater than left. This is nonspecific and could represent asymmetric pulmonary edema or a pneumonia. 2. Right basilar consolidation favors atelectasis from the elevated right hemidiaphragm. 3. Postoperative changes as described above. No large hematoma identified within the chest. 4. Perihepatic ascites is again noted. ABD/PELVIS NO IV OR ORAL CONT HISTORY: 60 years-old Female Unexplained drop in hb to 5.6 acute anemia. History of cirrhotic liver disease with TIPS shunt. COMPARISON: CT abdomen and pelvis 08/09/2016, portable chest radiograph 09/29/2016. TECHNIQUE: Multiple axial CT images of the abdomen and pelvis were obtained without the use of IV contrast. A dose lowering technique was used consistent with the principals of TATYANA. FINDINGS: There is a trace right pleural effusion. Subsegmental bibasilar consolidative opacities are present, right greater than left with right basilar air bronchograms. There is no pneumoperitoneum identified. Imaged inferior cardiac chambers are mildly enlarged. Dual-lumen hemodialysis catheter is noted with distal tip in the right atrium. There is cirrhotic morphology of the liver. A TIPS shunt is present with patency not confirmed on this noncontrast study. The spleen, pancreas and adrenal glands are within normal limits. The gallbladder appears to be partially collapsed. There is a punctate area of increased attenuation within the interpolar left kidney suspicious for nonobstructing calculus. No obstructive uropathy. Right kidney is unremarkable. Nondependent air is present within a mildly distended urinary bladder lumen. Uterus is unremarkable. Bilateral fallopian tube occlusion devices are noted. There is mild atherosclerosis of the abdominal aorta. No bulky retroperitoneal adenopathy or retroperitoneal hematoma identified. High attenuating material is seen within the gastric lumen suggesting ingested material. There is no bowel obstruction. Moderate volume of formed stool involves the ascending and transverse colon. Nondilated appendix is noted. Minimal volume of intra-abdominal and intrapelvic ascites is noted with mild diffuse body wall edema. Ascites tracks into a fat filled left inguinal hernia. There is partially imaged metallic hardware of the bilateral humeri. The bones are moderately demineralized. Compression deformities of the L3 and T11 vertebral bodies are redemonstrated. IMPRESSION: 1. No acute intra-abdominal or intrapelvic abnormality identified to correlate with the patient's acute anemia. No retroperitoneal hematoma. 2. Cirrhotic morphology of the liver with TIPS shunt noted. Mild intra-abdominal and intrapelvic ascites is noted with mild diffuse body wall edema. 3. Unchanged compression deformities of the T11 and L3 vertebral bodies. 4. Punctate nonobstructing calculus of the interpolar left kidney. Current SOFA Score SOFA Score Response (Comments) Value Platelets (x10) < 100 2 Bilirubin (mg/dL) 2.0 - 5.9 2 Lamont Coma Score 10 - 12 2 Level of Hypotension No Hypotension 0 Creatinine (mg/dL) 1.2 - 1.9 1 Total 7 Assessment & Plan Critically ill reason: 60 year old female post op from orthopedic surgery with altered mental status secondary to hepatorenal syndrome, requiring intubation for impending hypoxic and hypercapnic respiratory failure. Subsequent acute drop in hemoglobin (unknown cause) necessitating transfusion and significant leukocytosis. Neuro - CAM negative - Signs of depression, but holding off on medication at this time due to risks of accumulation - Continue to monitor for changes in RASS CV - SBP noted to be 100-120s. HR stable in 90s-100s. 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 Patient previously on transplant list but was too well. Current MELD score 28. GI consulted. * Family previously declined, but may reconsider transfer to [facility] for transplant evaluation as patient continues to improve - Ammonia remains WNL. Continue rifaximin, and midodrine for hepatic encephalopathy. Lactulose PRN for decreased bowel movements - Continue to trend LFTS every other day. Continue ursodiol 600mg BID - Tolerating PO renal renal diet. Dietitian consulted. Metoclopramide 5mg ( renally dosed) PRN nausea. Continue multivitamin and vitamin K supplements. - GI prophylaxis PO pantoprazole Renal/Fluid - Patient s/p PermCath insertion via right IJ. Ongoing dialysis for ultrafiltration and toxin removal. Creatinine elevated but stable. * Plans for dialysis today with transfusion of blood products in the process - Continue Epoetin - Trend BMP - Continue strict I&O's ID - Afebrile with chills + significantly elevated leukocytosis. * Plans for central line with blood cultures and CBC drawn at same time * Subsequently will restart antibiotics: Imipenem/cilastatin + vancomycin - Previous bronchoscopy samples positive for kristen albicans. Fungal and acid fast cultures pending. IV fluconazole (Day 08/13) - C.diff toxin negative Endo - Continue prednisone 5mg daily. Of note, patient on chronic prednisone 1mg daily. - Continue monitoring blood glucose. Recent levels have been within acceptable ranges. Heme - Drop in hemoglobin (5.6), however, patient remains asymptomatic. Platelets also low. * CT chest, abdo, pelvis negative for acute internal bleeding/hematoma * Transfuse 2 units of pRBCs * Check post-transfusion CBC and FOBT Skin/MSK - Wound care consulted for right elbow ulcer - As per ortho recommendations: sling x 6 weeks with no shoulder MN/ROM exercises x 6 weeks. May remove sling for elbow/wrist ROM exercises. Maricarmen may be removed 10-14 days post op. PT/OT consulted DVT PPx - Hold heparin SC 5000 units BID for now, given acute drop in hemoglobin. Access - 2x peripheral IV, 1 right IJ Perm Cath I was present with Dr. Cindy Weaver during the history and exam. I discussed the case with the resident and agree with the findings and plan as documented in the note. Any exceptions or clarifications are listed here: Patient with toxic-metabolic encephalopathy, secondary to liver failure (due to PBC), and perhaps a component of renal failure, as well as delayed clearance of medication. Steadily improving, now mental status at baseline S/p PermCath, dialyzed daily so far Received 2 units PRBC during HD today. No obvious source fo bleeding Had a spike in WBC, procalcitonin rising. No obvious source for sepsis. Cdiff negative. Send blood cultures and start imipenem and vancomycin. Continue Diflucan Continue wound care on her right elbow Continue Prednisone 5 mg. Continue Ursodiol Potential transfer to tertiary care center for liver/kidney transplant Hold SC heparin, platelets trending down, becoming more anemic. S/p CT chest/abdomen and pelvis - no source of bleeding identified Check stool for occult blood HIT panel negative, thrombocytopenia likely secondary to liver failure Lost iv access last night. Will insert a left IJ central line today Would avoid initiating antidepressants for now. They require caution in liver disease Mobilize patient Documented By: Ayden Cummings MD Critical care time spent with patient and family, greater than 30 minutes [place] II Score Date Score Was Generated: Sep 24, 2016 Consults & Procedures Consultants: Gastroenterology: Dr. Noel Infectious diseases: Dr. Bergman Neurology: Dr. Dunn Nephrology: Dr. Thakkar Orthopedics: Dr. Fontenot Vascular: Dr. Rouse Wound care: Dr. Gmaal Boyle PT OT Procedures: 09/17/16: Right reverse total shoulder arthroplasty, removal of deep hardware right proximal humerus, debridement of olecranon ulcer right elbow 09/20/16: Trialysis central catheter inserted 09/20/16: Echo 09/20/16: Intubated 09/21/16: Bronchoscopy 09/24/16: Midline inserted 09/24/16: Extubated 09/25/16: Trialysis removed 09/27/16: PermCath inserted 09/28/16: Midline leaking, removed Data Medications: Current Inpatient Medications Medications (Trade) Dose Ordered Sig/Michael Route Start Time Stop Time Status Last Admin Dose Admin Miconazole Nitrate (Desenex Powder) 1 appln BID EXT 09/17/16 21:00 10/17/16 20:59 09/27/16 21:00 1 APPLN Midodrine (Proamatine Tab) 5 mg TID@0800,1200,1800 PO 09/19/16 18:00 10/19/16 17:59 09/29/16 07:50 5 MG Levalbuterol (Xopenex 0.63 Mg/ 3 Ml Neb) 0.63 mg Q6H PRN INH 09/20/16 08:30 10/20/16 08:29 Fentanyl Citrate (Fentanyl Inj) 50 mcg Q1H PRN IV 09/20/16 21:45 10/04/16 21:44 Future Hold 09/21/16 04:14 50 MCG Rifaximin (Xifaxan Tab) 550 mg BID PO 09/22/16 21:00 10/22/16 20:59 09/29/16 07:50 550 MG Lactulose (Chronulac Syrup) 30 gm QID PRN PO 09/22/16 10:30 10/23/16 10:29 09/22/16 11:31 30 GM Lactulose (Chronulac Syrup) 30 gm QID PO 09/23/16 09:00 10/23/16 08:59 Future Hold 09/25/16 08:10 30 GM Fluconazole/ Sodium Chloride 200 mg/Prmx 100 ml @ 100 mls/hr DAILY@1800 IV 09/23/16 18:00 09/30/16 17:59 09/28/16 18:44 100 MLS/HR Phytonadione (Mephyton Tab) 5 mg DAILY PO 09/24/16 10:30 10/24/16 10:29 09/29/16 07:49 5 MG Multivitamins (Multivitamin Tab) 1 tab QAM PO 09/25/16 09:00 10/25/16 08:59 09/29/16 07:49 1 TAB Heparin Sodium (Porcine) (Heparin 10 Unit/ ml 5 ml Flush) 5 ml PRN PRN FLUSH 09/25/16 02:00 10/25/16 01:59 Metoclopramide HCl (Reglan Inj) 5 mg Q6H PRN IV 09/27/16 12:45 10/25/16 12:44 Prednisone (PredniSONE TAB) 5 mg DAILY PO 09/28/16 09:00 10/28/16 08:59 09/29/16 07:49 5 MG Enteral Nutritional Formula (Boost) 1 can BIDM PO 09/28/16 07:15 10/28/16 07:14 09/29/16 07:49 1 CAN Ursodiol (Actigall Cap) 600 mg BID PO 09/28/16 21:00 10/28/16 20:59 09/29/16 07:49 600 MG Pantoprazole Sodium (Protonix Tab) 40 mg QAM PO 09/29/16 09:00 10/29/16 08:59 09/29/16 07:50 40 MG Heparin Sodium (Porcine) (No Heparin In Dialysis) 1 ea 0730 N/A 09/29/16 07:30 09/29/16 12:00 Albumin Human (Albumin 25%) 12.5 gm 0800,0930 IV 09/29/16 08:00 09/29/16 12:00 Vancomycin HCl (Consult) 1 ea UD PRN N/A 09/29/16 08:45 10/29/16 08:44 Imipenem/ Cilastatin Sodium 500 mg/Dextrose 110 ml @ 100 mls/hr AFTER HEMODIALYSIS ONCE IV 09/29/16 11:00 09/29/16 12:05 Imipenem/ Cilastatin Sodium (Consult) 1 ea UD N/A 09/29/16 09:19 10/29/16 09:18 Vancomycin HCl 1000 mg/Sodium Chloride 270 ml @ 125 mls/hr AFTER HEMODIALYSIS ONCE IV 09/29/16 11:00 09/29/16 13:09 Imipenem/ Cilastatin Sodium 500 mg/Dextrose 110 ml @ 100 mls/hr Q12H IV 09/30/16 04:00 10/10/16 03:59 I & O: 24-Hour Column 09/30/16 08:00 Intake Total 310 ml Balance 310 ml Vital Signs: Date Time Temp Pulse Resp B/P (MAP) Pulse Ox O2 Delivery O2 Flow Rate FiO2 09/29/16 10:05 36.8 91 18 111/64 100 3.0 09/29/16 09:22 36.6 98 16 112/47 98 2.0 09/29/16 08:00 99 Nasal Cannula 2.0 09/29/16 06:00 92 25 117/55 (80) 94 09/29/16 05:00 94 22 110/48 (57) 93 09/29/16 04:00 94 Nasal Cannula 2.0 09/29/16 04:00 36.8 09/29/16 04:00 94 22 86/42 (65) 97 09/29/16 03:00 100 24 91/41 (64) 94 09/29/16 02:00 88 22 103/43 (66) 94 09/29/16 01:00 92 23 94/47 (64) 97 09/29/16 00:21 89 19 105/54 (66) 94 09/29/16 00:01 36.8 09/28/16 23:59 97 Nasal Cannula 2.0 09/28/16 23:00 93 23 87/39 (59) 91 09/28/16 22:00 90 22 98/42 (55) 91 09/28/16 21:01 94 29 101/70 (77) 91 09/28/16 20:01 92 10 93/40 (64) 93 09/28/16 20:00 36.8 09/28/16 20:00 92 Room Air 09/28/16 19:00 86 22 99/43 (69) 93 09/28/16 18:00 97 31 100/50 (67) 92 09/28/16 16:01 36.6 104 27 90/49 (63) 93 09/28/16 16:00 94 Room Air 09/28/16 14:00 99 22 119/72 (88) 91 09/28/16 13:32 36.8 92 102/65 (77) 09/28/16 13:00 92 95/62 09/28/16 12:45 97 108/63 09/28/16 12:30 101 110/65 09/28/16 12:15 98 101/61 09/28/16 12:00 92 Room Air 09/28/16 12:00 36.4 99 25 113/57 (75) 09/28/16 12:00 98 113/57 09/28/16 11:45 104 99/60 09/28/16 11:30 98 97/65 09/28/16 11:15 96 99/59 09/28/16 11:00 101 103/59 09/28/16 10:45 99 102/60 09/28/16 10:30 107 114/63 09/28/16 10:15 99 96/54 Laboratory Results: Last 24 Hours Test 09/28/16 12:57 09/29/16 05:16 09/29/16 10:06 White Blood Count 43.99 K/uL 22.11 K/uL Red Blood Count 2.53 M/uL 1.88 M/uL Hemoglobin 7.8 g/dL 5.6 g/dL Hematocrit 22.9 % 17.3 % Mean Corpuscular Volume 90.5 fL 92.0 fL Mean Corpuscular Hemoglobin 30.8 pg 29.8 pg Mean Corpuscular Hemoglobin Concent 34.1 g/dl 32.4 g/dl RDW Standard Deviation 60.3 fL 67.8 fL RDW Coefficient of Variation 21.1 % 22.1 % Platelet Count 152 K/uL 116 K/uL Mean Platelet Volume 10.9 fL 11.3 fL Platelet Estimate NORMAL Prothrombin Time 13.1 SECONDS Prothromb Time International Ratio 1.2 Activated Partial Thromboplast Time 37.8 SECONDS Partial Thromboplastin Ratio 1.5 Total Bilirubin 4.9 mg/dl 4.6 mg/dl Direct Bilirubin 3.4 mg/dl Aspartate Amino Transf (AST/SGOT) 196 U/L 156 U/L Alanine Aminotransferase (ALT/SGPT) 97 U/L 83 U/L Alkaline Phosphatase 404 U/L 365 U/L Total Protein 6.1 gm/dl 4.7 gm/dl Albumin 3.5 gm/dl 2.5 gm/dl Heparin-PF4 Antibody Screen NEG Neutrophils (%) (Auto) 83.1 % Lymphocytes (%) (Auto) 6.1 % Monocytes (%) (Auto) 7.6 % Eosinophils (%) (Auto) 1.7 % Basophils (%) (Auto) 0.0 % Neutrophils # (Auto) 18.35 K/uL Lymphocytes # (Auto) 1.34 K/uL Monocytes # (Auto) 1.69 K/uL Eosinophils # (Auto) 0.38 K/uL Basophils # (Auto) 0.01 K/uL Immature Granulocyte % (Auto) 1.5 % Immature Granulocyte # (Auto) 0.34 K/uL Nucleated RBC Absolute Count (auto) 0.04 K/uL Nucleated Red Blood Cells % 0.2 % Polychromasia 1+ Basophilic Stippling 1+ Anisocytosis PRESENT Schistocytes OCCASIONAL Sodium Level 138 mmol/L Potassium Level 3.6 mmol/L Chloride Level 103 mmol/L Carbon Dioxide Level 28 mmol/L Anion Gap 7.0 mmol/L Blood Urea Nitrogen 19 mg/dl Creatinine 1.70 mg/dl Est Creatinine Clear Calc Drug Dose 36.4 ml/min Estimated GFR () 37.9 Estimated GFR (Non- 32.7 BUN/Creatinine Ratio 10.9 Random Glucose 103 mg/dl Calcium Level 8.5 mg/dl Phosphorus Level 1.8 mg/dl Magnesium Level 1.9 mg/dl Ammonia < 10.0 umol/L Globulin 2.2 gm/dl Albumin/Globulin Ratio 1.1 Procalcitonin 2.65 ng/ml Resident Tracking Resident Involvement: Resident Care Provided Care Provided: Adult Hospital Medicine
[2016-09-29] MEDS ORDERED: IMIPENEM/CILASTATIN IV 500 MG in DEXTROSE 5% 100ML 100 ML IV ONE (11:00)
[2016-09-29] MEDS ORDERED: VANCOMYCIN INJ 1,000 MG in SODIUM CHLORIDE 0.9% 250ML 250 ML IV ONE (11:00)
[2016-09-29] MEDS: ALBUMIN HUMAN 25% 12.5 GM/50 ML VIAL IV SCH ×2 (11:20→11:21)
--- NOTE | 2016-09-29 11:37 | Progress Note ---
Progress Note Date of Service Sep 29, 2016. Progress Note ID Consult Dictated #[id number] A/P: 1. Leukocytosis - likely multifactorial, no clear infection identified -Agree with broad spectrum abx, spoke with ICU, blood cultures to be obtained today prior to Imipenem -will follow, thank you
--- NOTE | 2016-09-29 12:16 | INFECT. DISEASE CONSULTATION ---
DATE OF CONSULTATION: 09/29/2016 HISTORY OF PRESENT ILLNESS: This is a 60-year-old woman who was admitted for elective right shoulder surgery. She did have an evaluation on September 08 and she was found to have a displaced hardware of a right shoulder surgery, which was done approximately 5-6 weeks prior. She opted for elective removal of hardware and underwent this procedure on September 17. She had no immediate complications; however, postoperatively she did have worsening respiratory distress and increasing lethargy. Her ammonia was at one point greater than 59. She does have a history of cirrhosis with a TIPS shunt in the past. She has had persistent leukocytosis since admission to the hospital which peaked yesterday at a white count of 43.4. Today, it is down to 22.1. During this hospital stay, she has developed acute renal insufficiency and is now receiving dialysis through a Perm-A-Cath that was placed during this admission. She is on dialysis during my evaluation. She just completed a course of vancomycin and Zosyn. She had begun antibiotics on the at the time of her lethargy and respiratory distress. She was intubated for some time and did undergo bronchoscopy findings. Her sputum only grew Melissa albicans. She has been on fluconazole since the 23 of September for this. Her ammonia has improved. Her LFTs are increasing. She had an acute drop in her hemoglobin down to 5 and a CAT scan of the abdomen and pelvis was done and is unremarkable. Today, she was started on vancomycin and imipenem and infectious disease was consulted for imipenem approval. Her procalcitonin is elevated at 2.6. Her LFTs are somewhat better today. Yesterday, they peaked with an AST of 196, which is improved to 156 today. ALT was 97 yesterday and is down to 83. A C. diff was done secondary to her persistent leukocytosis on the that was negative. She has not had blood cultures done during this admission. She is receiving a blood transfusion on my examination today. She states that she feels cold and has some chills, but denies any fevers. She has been afebrile since her admission on September 17. She has no nausea, vomiting or diarrhea, but does admit to poor p.o. intake. She has no chest pain, cough or shortness of breath. She does have bilateral lower extremity edema. She denies any pain in the right shoulder. She states that her sutures are to come out soon. All remaining review of systems are reviewed and are unremarkable. PAST MEDICAL HISTORY: Significant for cirrhosis of the liver and osteoarthritis. PAST SURGICAL HISTORY: Significant for TIPS procedure, left ORIF, right ORIF with hardware removal on the and radius surgery. SOCIAL HISTORY: Negative currently for alcohol use, tobacco use or drug use. She lives alone. FAMILY HISTORY: Noncontributory. ALLERGIES: She has no known drug allergies. CURRENT MEDICATIONS: Include imipenem, vancomycin, Protonix, albumin, subQ heparin, prednisone, Reglan, multivitamins, fluconazole, rifaximin, Xopenex and Desenex powder. PHYSICAL EXAMINATION: VITAL SIGNS: She is afebrile, pulse 96, respiratory rate is 20, blood pressure is 104/57 and oxygen saturation is 99%-100% on 2 liters nasal cannula. GENERAL: She is awake, alert and oriented x3. She is in no acute distress. HEENT: Mucous membranes are moist. Extraocular muscles are intact. HEART: Regular. LUNGS: Clear with decreased breath sounds bilaterally. ABDOMEN: Soft, nontender, and nondistended. There is bilateral lower extremity edema. Examination of the right shoulder reveals the maricarmen to be clean, dry and intact. There is no wound dehiscence. There is no surrounding erythema, warmth, induration, drainage or bleeding. LABORATORY STUDIES: CBC today reveals a white blood cell count of 22.1, hemoglobin is 5.6 down from 7.8 yesterday, and platelets are 116. Chemistry panel reveals a sodium of 138, potassium 3.6, chloride 103, bicarbonate 28, BUN 19, creatinine 1.7, and glucose is 103. LFTs are as above. Procalcitonin is as above. Urinalysis was recently done on the and had no bacteria. studies are negative. Sputum cultures and bronchoscopy cultures grew Melissa albicans. The C. diff on the was negative. Urine culture on the was negative. No blood cultures have been done; however, they are to be ordered after dialysis today. CAT scan of the abdomen, pelvis and chest was done today, which shows trace right effusion, consolidative opacities. TIPS shunt is present. ASSESSMENT AND PLAN: Leukocytosis of unclear etiology; however, I suspect this is multifactorial secondary to recent surgery, steroid therapy, cirrhosis and recent surgical procedures. At this time, I do not see definitive infection; however, I agree with empiric antibiotics pending additional studies. Blood cultures will be obtained today. Thank you for this consultation. [place]
--- NOTE | 2016-09-29 14:51 | DIAGNOSTIC IMAGING REPORT ---
CHEST ONE VIEW PORTABLE CLINICAL HISTORY: 60 years-old Female presenting with central line placement. TECHNIQUE: Portable upright AP view of the chest was obtained. COMPARISON: 09/29/2016 at 6:48 AM. FINDINGS: Interval placement of a right internal jugular central venous catheter, which terminates in the SVC. Tunneled right internal jugular dialysis catheter terminates in the right atrium. Atherosclerosis of aortic arch. Mild prominence of the cardiac silhouette. Persistent elevation of the right hemidiaphragm. Decreased hazy perihilar opacities. Platelike opacity at the right lung base, slightly decreased from prior. Resolution of left pleural effusion. No large effusion or pneumothorax. Postsurgical changes of the bilateral humeri. Numerous external leads project over the right upper quadrant degrading evaluation. IMPRESSION: 1. Interval placement of a right IJ central venous catheter terminating in SVC. No pneumothorax. 2. Improved pulmonary edema with resolution of left pleural effusion. 3. Persistent right basilar atelectasis secondary to right hemidiaphragm elevation. Electronically signed by: Luis A Hamilton M.D. 09/29/2016 2:50 PM Dictated Date/Time: 09/29/2016 2:47 PM
--- NOTE | 2016-09-29 15:02 | Procedure Note ---
Procedure Note Procedure Date Sep 29, 2016. (Vishal Harris, ROMULOC) Central Line Procedure time out: side/site verified, patient ID confirmed, sterile procedure used Consent obtained: written Time of procedure: 14:15 Performed by: physician sales clerk supervisor Indications: poor venous access, central drug admin., long-term access Prep: chlorhexadine prep, sterile drape, sterile procedures used Anesthesia: lidocaine 1% without epi Volume anesthetic (ml's): 5 Central line lumen: single Central line location: internal jugular (R) Additional details: percutaneous placement, ultrasound guidance, Selinger technique used, line not sutured, good blood return CXR: appropriate position, no pneumothorax Complications: none Patient tolerated procedure: well Post-procedure vital signs: reviewed and stable (Vishal Harris, GIOVANNA-C) Comments: Critical Care attending I was present and I assisted during the entire procedure. See note for procedure details. Guidewire removed intact. Ayden Cummings MD (Ayden Cummings .MD)
[2016-09-29 15:47] LABS: HEMATOCRIT 24.5 % (37-47); MEAN CELL VOLUME 90.1 fL (80-100); MEAN CORPUSCULAR HEMOGLOBIN 30.9 pg (25-34); MEAN CORPUSCULAR HGB CONC 34.3 g/dl (32-36); MEAN PLATELET VOLUME 10.7 fL (7.4-10.4); PLATELET COUNT 106 K/uL (130-400); RED BLOOD COUNT 2.72 M/uL (4.2-5.4); WHITE BLOOD COUNT 25.03 K/uL (4.8-10.8)
[2016-09-29 16:23] LABS: ANISOCYTOSIS PRESENT; BASO ABS # 0.01 K/uL (0-0.2); COMPLETE YES; EOS % 0.8 %; IG% 1.5 %; LYMPH % 4.3 %; LYMPH ABS # 1.08 K/uL (1.2-3.4); MONO % 5.4 %; POLYCHROMASIA 1+
[2016-09-29] MEDS ORDERED: NURSING VERBAL MED ORDER ONE (17:00)
[2016-09-29] MEDS: FENTANYL CITRATE INJ 50 MCG/1 ML 2 ML VIAL IV PRN (17:25)
[2016-09-29] MEDS: FLUCONAZOLE 200MG / NSS IV SCH (17:44)
[2016-09-29 22:22] LABS: HEMATOCRIT 24.3 % (37-47); MEAN CORPUSCULAR HEMOGLOBIN 30.7 pg (25-34); MEAN CORPUSCULAR HGB CONC 34.2 g/dl (32-36); MEAN PLATELET VOLUME 11.3 fL (7.4-10.4); PLATELET COUNT 121 K/uL (130-400); WHITE BLOOD COUNT 24.69 K/uL (4.8-10.8)
[2016-09-30] VITALS (34 sets, daily range): BP systolic 69–165; BP diastolic 43–86; PULSE 64–98; TEMP 36.5–37; O2SAT 92–97
[2016-09-30] MEDS: FENTANYL CITRATE INJ 50 MCG/1 ML 2 ML VIAL IV PRN (00:08)
[2016-09-30] MEDS: IMIPENEM/CILASTATIN IV 500 MG in DEXTROSE 5% 100ML 100 ML IV SCH ×2 (03:07→16:45)
[2016-09-30 05:53] LABS: HEMATOCRIT 23.9 % (37-47); MEAN CELL VOLUME 90.2 fL (80-100); MEAN CORPUSCULAR HEMOGLOBIN 30.9 pg (25-34); MEAN CORPUSCULAR HGB CONC 34.3 g/dl (32-36); MEAN PLATELET VOLUME 10.7 fL (7.4-10.4); PLATELET COUNT 114 K/uL (130-400); RED BLOOD COUNT 2.65 M/uL (4.2-5.4); WHITE BLOOD COUNT 21.21 K/uL (4.8-10.8)
[2016-09-30 06:49] LABS: ALB/GLOB RATIO 1.1 (0.9-2); BUN/CREATININE RATIO 9.8 (10-20); CALCIUM 8.9 mg/dl (8.5-10.1); CREATININE 1.7 mg/dl (0.60-1.20); MAGNESIUM 1.9 mg/dl (1.8-2.4); PHOSPHORUS 2.2 mg/dl (2.5-4.9); POTASSIUM 3.2 mmol/L (3.5-5.1)
[2016-09-30] MEDS ORDERED: EPOETIN ALFA 10,000 UNITS/ML VIAL IV. ONE (07:30)
--- NOTE | 2016-09-30 07:34 | Orthopedic Progress Note ---
Orthopedic Progress Note Date of Service Sep 30, 2016. Subjective Post OP Day: 12 Reports: feeling well, pain controlled w PO medications, Denies: complaints, chest pain, SOB, nausea / vomiting, light headedness, calf pain Additional Notes: Patient states she is feeling well. She keeps saying she would like to go home as soon as possible and that she wants to leave today. She feels she can take care of herself at e. She states she wants time to recover at home and she will come in and continue whatever is needed. Objective calves soft nontender, capillary refill less than 2 sec., incision C/D/I, A&O x3 , toes mobile [place] were removed today from the right shoulder. No complications during this. Steri strips were applied. Elbow is resting comfortably in waffle brace. Date Time Temp Pulse Resp B/P (MAP) Pulse Ox O2 Delivery O2 Flow Rate FiO2 09/30/16 06:00 94 16 105/49 (67) 93 Room Air 09/30/16 04:00 36.9 93 24 116/58 (77) 92 Room Air 09/30/16 04:00 92 Room Air 09/30/16 02:00 88 14 126/62 (83) 94 Room Air 09/30/16 00:00 36.8 88 18 119/56 (77) 93 Room Air 09/29/16 23:59 94 Room Air 09/29/16 21:51 36.7 95 22 142/64 (90) 95 Room Air 09/29/16 21:00 91 17 142/81 (97) 09/29/16 20:00 90 22 143/59 (95) 92 09/29/16 19:50 86 20 140/58 (94) 92 09/29/16 19:30 Room Air 09/29/16 19:30 36.7 97 22 143/59 (87) 93 Room Air 09/29/16 19:00 96 20 93 09/29/16 18:00 94 21 94 09/29/16 18:00 95 17 106/52 (70) 94 Room Air 09/29/16 17:49 89 18 110/53 (66) 94 09/29/16 17:00 102 21 91 09/29/16 16:00 96 23 100/51 (66) 93 8/23/17 16:00 36.9 94 17 100/51 (67) 94 Room Air 09/29/16 16:00 94 Room Air 09/29/16 15:00 99 21 105/54 (71) 91 09/29/16 14:00 36.9 102 20 94/44 (61) 94 Room Air 09/29/16 13:15 102 31 113/65 (81) 97 09/29/16 13:01 102 17 98/57 (70) 98 09/29/16 13:00 101 19 97 09/29/16 12:46 101 19 107/86 (90) 98 09/29/16 12:45 102 22 98 09/29/16 12:30 100 20 116/52 (86) 97 09/29/16 12:26 36.7 92 120/49 (72) 09/29/16 12:15 98 15 120/49 (71) 99 09/29/16 12:01 97 22 90/54 (65) 99 09/29/16 12:00 95 19 99 09/29/16 12:00 98 Nasal Cannula 2.0 09/29/16 12:00 98 100/63 09/29/16 11:46 96 17 98/61 (82) 99 09/29/16 11:45 90 98/61 09/29/16 11:45 93 21 98 09/29/16 11:30 96 100/58 09/29/16 11:30 95 16 100/58 (72) 99 09/29/16 11:16 97 20 87/48 (64) 98 09/29/16 11:15 98 87/48 09/29/16 11:15 97 18 98 09/29/16 11:08 36.8 96 20 104/57 99 09/29/16 11:04 36.8 90 18 104/57 100 2.0 09/29/16 11:00 91 104/57 09/29/16 11:00 91 19 104/57 (66) 100 09/29/16 10:45 92 102/55 09/29/16 10:45 93 15 109/55 (71) 99 09/29/16 10:32 92 102/48 09/29/16 10:30 92 18 102/48 (64) 100 09/29/16 10:15 36.9 91 17 105/58 99 09/29/16 10:15 96 105/58 8/23/17 10:15 91 17 105/58 (75) 99 09/29/16 10:13 36.7 98 114/51 (72) 09/29/16 10:09 36.9 92 18 111/64 100 3.0 09/29/16 10:05 36.8 91 18 111/64 100 3.0 09/29/16 10:00 92 16 111/64 (86) 99 09/29/16 10:00 92 111/64 09/29/16 09:45 92 110/72 09/29/16 09:45 94 17 110/72 (83) 99 09/29/16 09:33 93 20 103/56 (72) 98 09/29/16 09:30 95 16 97 09/29/16 09:30 93 105/56 09/29/16 09:22 36.6 98 16 112/47 98 2.0 09/29/16 09:19 95 117/47 09/29/16 09:16 98 22 112/47 (53) 91 09/29/16 09:15 99 17 92 09/29/16 09:11 96 22 114/51 (71) 91 09/29/16 09:00 100 26 98/44 (62) 92 09/29/16 08:57 96 17 90/45 (61) 91 09/29/16 08:45 99 27 88 09/29/16 08:15 93 21 96 09/29/16 08:00 99 Nasal Cannula 2.0 09/29/16 08:00 94 20 104/51 (61) 96 Laboratory Results 24 Hours: Test 09/29/16 15:27 09/29/16 22:12 09/30/16 05:43 White Blood Count 25.03 K/uL 21.21 K/uL Red Blood Count 2.72 M/uL 2.65 M/uL Hemoglobin 8.4 g/dL 8.3 g/dL 8.2 g/dL Hematocrit 24.5 % 24.3 % 23.9 % Mean Corpuscular Volume 90.1 fL 90.2 fL Mean Corpuscular Hemoglobin 30.9 pg 30.9 pg Mean Corpuscular Hemoglobin Concent 34.3 g/dl 34.3 g/dl Platelet Count 106 K/uL 114 K/uL Mean Platelet Volume 10.7 fL 10.7 fL Neutrophils (%) (Auto) 88.0 % Lymphocytes (%) (Auto) 4.3 % Monocytes (%) (Auto) 5.4 % Eosinophils (%) (Auto) 0.8 % Basophils (%) (Auto) 0.0 % Neutrophils # (Auto) 22.01 K/uL Lymphocytes # (Auto) 1.08 K/uL Monocytes # (Auto) 1.36 K/uL Eosinophils # (Auto) 0.19 K/uL Basophils # (Auto) 0.01 K/uL Assessment & Plan Assessment: POD #12 s/p Right reverse total shoulder arthroplasty, removal of deep hardware right proximal humerus, debridement of olecranon ulcer right elbow PRESSURE ULCER R ELBOW- DRESSING INTACT. ORTHOPEDICALLY STABLE- WILL TRY AND TRANSFER TO MEDICAL [facility]. - SLING X 6 WEEKS - NO SHOULDER PT/ROM X 6 WEEKS - MAY REMOVE SLING FOR ELBOW/WRIST ROM -FOLLOW UP IN [address] REPORTER TEAM; Subsequent acute drop in hemoglobin (unknown cause) necessitating transfusion and significant leukocytosis. Neuro - CAM negative - Signs of depression, but holding off on medication at this time due to risks of accumulation - Continue to monitor for changes in RASS CV - SBP noted to be 100-120s. HR stable in 90s-100s. 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 Patient previously on transplant list but was too well. Current MELD score 28. GI consulted. * Family previously declined, but may reconsider transfer to [facility] for transplant evaluation as patient continues to improve - Ammonia remains WNL. Continue rifaximin, and midodrine for hepatic encephalopathy. Lactulose PRN for decreased bowel movements - Continue to trend LFTS every other day. Continue ursodiol 600mg BID - Tolerating PO renal renal diet. Dietitian consulted. Metoclopramide 5mg ( renally dosed) PRN nausea. Continue multivitamin and vitamin K supplements. - GI prophylaxis PO pantoprazole Renal/Fluid - Patient s/p PermCath insertion via right IJ. Ongoing dialysis for ultrafiltration and toxin removal. Creatinine elevated but stable. * Plans for dialysis today with transfusion of blood products in the process - Continue Epoetin - Trend BMP - Continue strict I&O's ID - Afebrile with chills + significantly elevated leukocytosis. * Plans for central line with blood cultures and CBC drawn at same time * Subsequently will restart antibiotics: Imipenem/cilastatin + vancomycin - Previous bronchoscopy samples positive for kristen albicans. Fungal and acid fast cultures pending. IV fluconazole (Day 08/13) - C.diff toxin negative Endo - Continue prednisone 5mg daily. Of note, patient on chronic prednisone 1mg daily. - Continue monitoring blood glucose. Recent levels have been within acceptable ranges. Heme - Drop in hemoglobin (5.6), however, patient remains asymptomatic. Platelets also low. * CT chest, abdo, pelvis negative for acute internal bleeding/hematoma * Transfuse 2 units of pRBCs * Check post-transfusion CBC and FOBT Skin/MSK - Wound care consulted for right elbow ulcer - As per ortho recommendations: sling x 6 weeks with no shoulder [place]/ROM exercises x 6 weeks. May remove sling for elbow/wrist ROM exercises. [place] may be removed 10-14 days post op. PT/OT consulted DVT PPx - Hold heparin SC 5000 units BID for now, given acute drop in hemoglobin. Access - 2x peripheral IV, 1 right IJ Perm Cath Consults & Procedures Consultants: Gastroenterology: Dr. Noel Neurology: Dr. Dunn Nephrology: Dr. Thakkar Orthopedics: Dr. Fontenot Wound care: Dr. Yeung Pt. seen and examined, agree with above Discharge Planning Discharge Planning: uncertain
[2016-09-30] MEDS ORDERED: EPOETIN ALFA INJ 12,000 UNITS in SYRINGE 0 ML IV. SCH (08:00)
[2016-09-30] MEDS: MICONAZOLE NITRATE POWDER 43 GM EXT SCH ×2 (08:09→19:51)
[2016-09-30] MEDS: PANTOprazole SOD 40 MG TAB PO SCH (08:13)
[2016-09-30] MEDS: PHYTONADIONE 5 MG TAB PO SCH (08:13)
[2016-09-30] MEDS: MIDODRINE 2.5 MG TAB PO SCH ×3 (08:13→16:46)
[2016-09-30] MEDS: RIFAXIMIN TAB 550 MG TAB PO SCH ×2 (08:13→19:52)
[2016-09-30] MEDS: URSODIOL 300 MG CAP PO SCH ×2 (08:13→19:51)
[2016-09-30] MEDS: MULTIVITAMIN TAB PO SCH (08:13)
[2016-09-30] MEDS: BOOST VANILLA PO SCH ×4 (08:45→16:30)
[2016-09-30 09:08] LABS: ANISOCYTOSIS PRESENT; BASO ABS # 0.01 K/uL (0-0.2); COMPLETE YES; EOS % 1.3 %; IG% 1.2 %; LYMPH % 6.6 %; LYMPH ABS # 1.41 K/uL (1.2-3.4); MONO % 7.1 %; NEUT % 83.8 %; POLYCHROMASIA 1+
--- NOTE | 2016-09-30 09:22 | Pharmacy Progress Note ---
Pharmacy Abx Dose Short Note Date of Service Sep 30, 2016. Assessment & Plan Assessment * 60 year old female receiving VANCOMYCIN and PRIMAXIN for empiric treatment for leukocytosis of uncertain etiology * She had previously completed a 7 day course of Vancomycin + Zosyn for aspiration pnx and stopped this therapy on 09/27 * Fluconazole IV was administered for a total of 7 days for c albicans growing in sputum cultures - discussed the need to continue this therapy w/ assistant health educator today as usual course for fungal pnx ~14 days and possibly longer. Given low likelihood of fungal pnx in this patient and elevated LFT's the decision was made to stop this therapy. * She doses have multiple risk factors for resistant organisms: * Hospitalization for 48 hours or more within the past 90 days * Current hospitalization > 5 days * Antimicrobial use within the last 90 days * ID has seen this patient as well and stated OK to continue current ABX therapy pending further studies as etiology of leukocytosis unclear * WBC is trending down, she remains afebrile * She continues to received dialysis daily Plan Vancomycin * Random level of 14.1 mcg/mL is subtherapeutic * She is scheduled to receive dialysis again today. Her vancomycin level will fall w/ dialysis treatment * Will give 750mg IV vancomycin x 1 today after HD * Will recheck vancomycin random level w/ AM labs tomorrow with the plan to redose this patient when level between 15-20 or expected to be between 15-20 following a dialysis treatment Primaxin * Indicated dose for patients on hemodialysis w/ severe infection: 500mg IV Q 12 hours with doses administered after HD on days of dialysis if dose is due immediately prior to or during the HD treatment. Pharmacy will continue to follow and will adjust dose/frequency as necessary. Thank you.
--- NOTE | 2016-09-30 10:43 | Critical Care Progress Note ---
Critical Care Progress Note Date of Service Sep 30, 2016. ICU Day ICU Day Number: [address] Cummings Subjective Patient awake and alert and carrying a conversation. She says she feels depressed and had difficulty sleeping secondary to shoulder pain. She continues to deny chest pain, abdominal pain, SOB on room air, palpitations. Nausea without vomiting is intermittent with food, but improved with medication. No lightheadedness, headache, or vision changes. Patient still has diarrhea, but has been refusing Desenex on her bottom. Patient has also been refusing SCDs and waffle boots. Objective GENERAL: Responsive, lying in bed, oxygen support via NC on 3L and saturating 100% HEAD: Normocephalic, atraumatic. EYES: Normal sclera and conjunctiva. PERRL. EOMI. Scleral icterus. Conjunctiva normal. NECK: Supple, no adenopathy. Able to hold neck up LUNGS: Normal chest wall mechanics, poor air entry. No crackles, or wheezes. No dyspnea upon lying flat HEART: S1 and S2 normal, systolic murmur appreciated in the aortic region ABDOMEN: Abdomen soft - no ascites appreciated, bowel sounds present, no masses , no rebound or guarding. Mild tenderness and bruising on LLQ at site of previous heparin SC injections SKIN: Warm, pink, dry. No rashes. Jaundiced. Bruising on right neck, secondary to PermCath insertion, and on left arm from previous trial of PICC insertion. Evidence of venostasis on lower limbs. Ulcer on right elbow. EXTREMITIES: [place] removed on right arm from shoulder surgery, with strei- strips in place. Bilateral 2+ lower extremity edema. Patient able to wiggle fingers and toes. NEURO: A+Ox3, Pupils equal. Senior Reliability Engineer strength 4/5 on right hand, 5/5 on left hand. Engaging and asking questions today. Current SOFA Score SOFA Score Response (Comments) Value Platelets (x10) < 150 1 Bilirubin (mg/dL) 6.0 - 11.9 3 [place] Coma Score 15 0 Level of Hypotension No Hypotension 0 Creatinine (mg/dL) 1.2 - 1.9 1 Total 5 Assessment & Plan Critically ill reason: 60 year old female post op from orthopedic surgery with encephalopathy status secondary to hepatorenal syndrome, requiring intubation for impending hypoxic and hypercapnic respiratory failure. Subsequent acute drop in hemoglobin (unknown cause) necessitating transfusion and significant leukocytosis. Neuro - CAM negative - Signs of depression, but holding off on medication at this time due to risks of accumulation given impaired liver function - Continue to monitor for changes in RASS CV - SBP noted to be 100-140s. HR stable in 90s. - Blood pressures stable even during dialysis Resp - On RA, saturating in the 90s% GI/Nutrition - Has hepatorenal syndrome secondary to primary biliary cirrhosis and DIAZ. Patient previously on transplant list but was too well. Current MELD score 30. GI consulted. * Family previously declined, but may reconsider transfer to [facility] for [facility] evaluation as patient optimized. To be re-discussed. - Ammonia remains WNL. Continue rifaximin and midodrine for hepatic encephalopathy. Lactulose PRN for decreased bowel movements - Trend LFTS every other day. Continue ursodiol 600mg BID. Evidence of progressing hepatic failure with increasing bilirubin - Tolerating PO renal renal diet. Dietitian consulted. Metoclopramide 5mg ( renally dosed) PRN nausea. Continue multivitamin and vitamin K supplements. - GI prophylaxis PO pantoprazole Renal/Fluid - Patient s/p PermCath insertion via right IJ. Ongoing dialysis for ultrafiltration and toxin removal. Creatinine elevated but stable. Plans for dialysis today - Continue Epoetin - Trend BMP - Continue strict I&O's ID - Afebrile with chills + significantly elevated leukocytosis. * Blood cultures pending * Imipenem/cilastatin + vancomycin (day 2 of 14) - Ongoing monitoring of elbow ulcer, and sacral skin (raw secondary to diarrhea - C.diff toxin negative). Wound consulted. Endo - Continue prednisone 5mg daily. Of note, patient on chronic prednisone 1mg daily. - Continue monitoring blood glucose. Recent levels have been within acceptable ranges. Heme - s/p transfusion of 2 units pRBCs. Hb and platelets stable. MSK - As per ortho recommendations: sling x 6 weeks with no shoulder IA/ROM exercises x 6 weeks. May remove sling for elbow/wrist ROM exercises. Cleveland may be removed 10-14 days post op. PT/OT consulted DVT PPx - Hold heparin SC 5000 units BID for now, given acute drop in hemoglobin. Access - 2x peripheral IV, 1 right IJ Perm Cath, 1 right central line Resident Physician Supervision Note: I was present with Dr. Cindy Weaver during the history and exam. I discussed the case with the resident and agree with the findings and plan as documented in the note. Any exceptions or clarifications are listed here: Patient with toxic-metabolic encephalopathy, secondary to liver failure (due to PBC), and perhaps a component of renal failure, as well as delayed clearance of medication. Steadily improving, now mental status at baseline S/p PermCath, dialyzed daily so far Received 2 units PRBC during HD yesterday. Stool was positive for occult blood, but no serious bleeding noted Continues to have diarrhea Had a spike in WBC, procalcitonin rising. No obvious source for sepsis. Cdiff negative. Send blood cultures and started imipenem and vancomycin. Finished course of Diflucan Continue wound care on her right elbow Continue Prednisone 5 mg. Her leukocytosis worsened as the steroids were being tapered Continue Ursodiol Potential transfer to tertiary care center for liver/kidney transplant if her condition improves. Bilirubin is rising, possibly developing worsening liver failure. Continue to monitor Hold SC heparin, platelets trending down, anemic. S/p CT chest/abdomen and pelvis - no source of bleeding identified HIT panel negative, thrombocytopenia likely secondary to liver failure S/p right IJ single lumen central central line yesterday Would avoid initiating antidepressants for now. They require caution in liver disease Mobilize patient. She is OOB in chair today We had an extensive discussion with the , explained him the current condition. She improved initially, but now is stagnating, and I am concerned about the rising bilirubin. She is exposed to multiple serious complications in her fragile state. Critical care time spent greater than 40 minutes Documented By: Ayden Cummings MD CHALKYITSIK II Score Date Score Was Generated: Sep 24, 2016 Consults & Procedures Consultants: Gastroenterology: Dr. Noel Infectious diseases: Dr. Bergman Neurology: Dr. Dunn Nephrology: Dr. Thakkar Orthopedics: Dr. Fontenot Vascular: Dr. Rouse Wound care: Dr. Gamal Boyle PT OT Procedures: 09/17/16: Right reverse total shoulder arthroplasty, removal of deep hardware right proximal humerus, debridement of olecranon ulcer right elbow 09/20/16: Trialysis central catheter inserted 09/20/16: Echo 09/20/16: Intubated 09/21/16: Bronchoscopy 09/24/16: Midline inserted 09/24/16: Extubated 09/25/16: Trialysis removed 09/27/16: PermCath inserted 09/28/16: Midline leaking, removed 09/29/16: Right central line inserted Data Medications: Current Inpatient Medications Medications (Trade) Dose Ordered Sig/Michael Route Start Time Stop Time Status Last Admin Dose Admin Miconazole Nitrate (Desenex Powder) 1 appln BID EXT 09/17/16 21:00 10/17/16 20:59 09/27/16 21:00 1 APPLN Midodrine (Proamatine Tab) 5 mg TID@0800,1200,1800 PO 09/19/16 18:00 10/19/16 17:59 09/30/16 08:13 5 MG Levalbuterol (Xopenex 0.63 Mg/ 3 Ml Neb) 0.63 mg Q6H PRN INH 09/20/16 08:30 10/20/16 08:29 Fentanyl Citrate (Fentanyl Inj) 50 mcg Q1H PRN IV 09/20/16 21:45 10/04/16 21:44 Future Hold 09/21/16 04:14 50 MCG Rifaximin (Xifaxan Tab) 550 mg BID PO 09/22/16 21:00 10/22/16 20:59 09/30/16 08:13 550 MG Lactulose (Chronulac Syrup) 30 gm QID PRN PO 09/22/16 10:30 10/23/16 10:29 09/22/16 11:31 30 GM Lactulose (Chronulac Syrup) 30 gm QID PO 09/23/16 09:00 10/23/16 08:59 Future Hold 09/25/16 08:10 30 GM Fluconazole/ Sodium Chloride 200 mg/Prmx 100 ml @ 100 mls/hr DAILY@1800 IV 09/23/16 18:00 09/30/16 17:59 09/29/16 17:44 100 MLS/HR Phytonadione (Mephyton Tab) 5 mg DAILY PO 09/24/16 10:30 10/24/16 10:29 09/30/16 08:13 5 MG Multivitamins (Multivitamin Tab) 1 tab QAM PO 09/25/16 09:00 10/25/16 08:59 09/30/16 08:13 1 TAB Heparin Sodium (Porcine) (Heparin 10 Unit/ ml 5 ml Flush) 5 ml PRN PRN FLUSH 09/25/16 02:00 10/25/16 01:59 Metoclopramide HCl (Reglan Inj) 5 mg Q6H PRN IV 09/27/16 12:45 10/25/16 12:44 Prednisone (PredniSONE TAB) 5 mg DAILY PO 09/28/16 09:00 10/28/16 08:59 09/30/16 08:13 5 MG Enteral Nutritional Formula (Boost) 1 can BIDM PO 09/28/16 07:15 10/28/16 07:14 09/30/16 08:45 1 CAN Ursodiol (Actigall Cap) 600 mg BID PO 09/28/16 21:00 10/28/16 20:59 09/30/16 08:13 600 MG Pantoprazole Sodium (Protonix Tab) 40 mg QAM PO 09/29/16 09:00 10/29/16 08:59 09/30/16 08:13 40 MG Vancomycin HCl (Consult) 1 ea UD PRN N/A 09/29/16 08:45 10/29/16 08:44 Imipenem/ Cilastatin Sodium (Consult) 1 ea UD N/A 09/29/16 09:19 10/29/16 09:18 Imipenem/ Cilastatin Sodium 500 mg/Dextrose 110 ml @ 100 mls/hr Q12H IV 09/30/16 04:00 10/10/16 03:59 09/30/16 03:07 100 MLS/HR Fentanyl Citrate (Fentanyl Inj) 25 mcg Q6 PRN IV 09/29/16 16:00 10/30/16 15:59 09/30/16 00:08 25 MCG Vancomycin HCl 750 mg/Sodium Chloride 265 ml @ 125 mls/hr AFTER HEMODIALYSIS ONCE IV 09/30/16 11:00 09/30/16 13:07 Heparin Sodium (Porcine) (No Heparin In Dialysis) 1 ea TODAY@0800 N/A 09/30/16 08:00 09/30/16 23:59 Albumin Human (Albumin 25%) 12.5 gm TODAY@0800,1200 IV 09/30/16 08:00 09/30/16 23:59 Epoetin Ken [id number] units/ Syringe 0.6 ml @ 1 mls/min TODAY@0800 IV. 09/30/16 08:00 09/30/16 23:59 Vital Signs: Date Time Temp Pulse Resp B/P (MAP) Pulse Ox O2 Delivery O2 Flow Rate FiO2 09/30/16 06:00 94 16 105/49 (67) 93 Room Air 09/30/16 04:00 36.9 93 24 116/58 (77) 92 Room Air 09/30/16 04:00 92 Room Air 09/30/16 02:00 88 14 126/62 (83) 94 Room Air 09/30/16 00:00 36.8 88 18 119/56 (77) 93 Room Air 09/29/16 23:59 94 Room Air 09/29/16 21:51 36.7 95 22 142/64 (90) 95 Room Air 09/29/16 21:00 91 17 142/81 (97) 09/29/16 20:00 90 22 143/59 (95) 92 09/29/16 19:50 86 20 140/58 (94) 92 09/29/16 19:30 Room Air 09/29/16 19:30 36.7 97 22 143/59 (87) 93 Room Air 09/29/16 19:00 96 20 93 09/29/16 18:00 94 21 94 09/29/16 18:00 95 17 106/52 (70) 94 Room Air 09/29/16 17:49 89 18 110/53 (66) 94 09/29/16 17:00 102 21 91 09/29/16 16:00 96 23 100/51 (66) 93 09/29/16 16:00 36.9 94 17 100/51 (67) 94 Room Air 09/29/16 16:00 94 Room Air 09/29/16 15:00 99 21 105/54 (71) 91 09/29/16 14:00 36.9 102 20 94/44 (61) 94 Room Air 09/29/16 13:15 102 31 113/65 (81) 97 09/29/16 13:01 102 17 98/57 (70) 98 09/29/16 13:00 101 19 97 09/29/16 12:46 101 19 107/86 (90) 98 09/29/16 12:45 102 22 98 09/29/16 12:30 100 20 116/52 (86) 97 09/29/16 12:26 36.7 92 120/49 (72) 09/29/16 12:15 98 15 120/49 (71) 99 09/29/16 12:01 97 22 90/54 (65) 99 09/29/16 12:00 95 19 99 09/29/16 12:00 98 Nasal Cannula 2.0 09/29/16 12:00 98 100/63 09/29/16 11:46 96 17 98/61 (82) 99 09/29/16 11:45 90 98/61 09/29/16 11:45 93 21 98 09/29/16 11:30 96 100/58 09/29/16 11:30 95 16 100/58 (72) 99 09/29/16 11:16 97 20 87/48 (64) 98 09/29/16 11:15 98 87/48 09/29/16 11:15 97 18 98 09/29/16 11:08 36.8 96 20 104/57 99 09/29/16 11:04 36.8 90 18 104/57 100 2.0 09/29/16 11:00 91 104/57 09/29/16 11:00 91 19 104/57 (66) 100 09/29/16 10:45 92 102/55 09/29/16 10:45 93 15 109/55 (71) 99 09/29/16 10:32 92 102/48 09/29/16 10:30 92 18 102/48 (64) 100 Laboratory Results: Last 24 Hours Test 09/29/16 15:27 09/29/16 17:17 09/29/16 22:12 09/30/16 05:43 White Blood Count 25.03 K/uL 24.69 K/uL 21.21 K/uL Red Blood Count 2.72 M/uL 2.70 M/uL 2.65 M/uL Hemoglobin 8.4 g/dL 8.3 g/dL 8.2 g/dL Hematocrit 24.5 % 24.3 % 23.9 % Mean Corpuscular Volume 90.1 fL 90.0 fL 90.2 fL Mean Corpuscular Hemoglobin 30.9 pg 30.7 pg 30.9 pg Mean Corpuscular Hemoglobin Concent 34.3 g/dl 34.2 g/dl 34.3 g/dl Platelet Count 106 K/uL 121 K/uL 114 K/uL Mean Platelet Volume 10.7 fL 11.3 fL 10.7 fL Neutrophils (%) (Auto) 88.0 % 83.8 % Lymphocytes (%) (Auto) 4.3 % 6.6 % Monocytes (%) (Auto) 5.4 % 7.1 % Eosinophils (%) (Auto) 0.8 % 1.3 % Basophils (%) (Auto) 0.0 % 0.0 % Neutrophils # (Auto) 22.01 K/uL 17.75 K/uL Lymphocytes # (Auto) 1.08 K/uL 1.41 K/uL Monocytes # (Auto) 1.36 K/uL 1.50 K/uL Eosinophils # (Auto) 0.19 K/uL 0.28 K/uL Basophils # (Auto) 0.01 K/uL 0.01 K/uL RDW Standard Deviation 49.2 fL 50.3 fL 51.6 fL RDW Coefficient of Variation 18.4 % 19.2 % 19.5 % Immature Granulocyte % (Auto) 1.5 % 1.2 % Immature Granulocyte # (Auto) 0.38 K/uL 0.26 K/uL Nucleated RBC Absolute Count (auto) 0.06 K/uL 0.05 K/uL Nucleated Red Blood Cells % 0.2 % 0.2 % Polychromasia 1+ 1+ Basophilic Stippling 1+ Anisocytosis PRESENT PRESENT Lactic Acid Level 2.2 mmol/L 1.3 mmol/L 1.3 mmol/L Stool Occult Blood POSITIVE Sodium Level 135 mmol/L Potassium Level 3.2 mmol/L Chloride Level 100 mmol/L Carbon Dioxide Level 29 mmol/L Anion Gap 6.0 mmol/L Blood Urea Nitrogen 17 mg/dl Creatinine 1.70 mg/dl Est Creatinine Clear Calc Drug Dose 36.7 ml/min Estimated GFR () 37.9 Estimated GFR (Non- 32.7 BUN/Creatinine Ratio 9.8 Random Glucose 94 mg/dl Calcium Level 8.9 mg/dl Phosphorus Level 2.2 mg/dl Magnesium Level 1.9 mg/dl Total Bilirubin 6.4 mg/dl Aspartate Amino Transf (AST/SGOT) 111 U/L Alanine Aminotransferase (ALT/SGPT) 72 U/L Alkaline Phosphatase 398 U/L Total Protein 4.8 gm/dl Albumin 2.5 gm/dl Globulin 2.3 gm/dl Albumin/Globulin Ratio 1.1 Procalcitonin 1.98 ng/ml Random Vancomycin Level 14.1 mcg/ml Resident Tracking Resident Involvement: Resident Care Provided Care Provided: Adult [facility]
[2016-09-30] MEDS ORDERED: VANCOMYCIN INJ 750 MG in SODIUM CHLORIDE 0.9% 250ML 250 ML IV ONE (11:00)
[2016-09-30] MEDS: ALBUMIN HUMAN 25% 12.5 GM/50 ML VIAL IV SCH ×2 (12:45→14:15)
--- NOTE | 2016-09-30 14:41 | Progress Note ---
Subjective Date of Service: Sep 30, 2016. Subjective pt remains on emperic abx. blood cultures pending, afebrile overnight. wbc remains elevated but slightly improved. no overnight events. Problem List Medical Problems: (1) Displaced fracture of proximal end of right humerus Status: Acute Surgical Problems: (1) Status post catheter ablation for SVT Status: Chronic Objective Vital Signs Date Time Temp Pulse Resp B/P (MAP) Pulse Ox O2 Delivery O2 Flow Rate FiO2 09/30/16 14:30 88 141/73 09/30/16 14:15 88 131/43 09/30/16 14:00 89 118/86 09/30/16 13:52 88 131/43 09/30/16 13:52 88 131/43 09/30/16 13:46 84 69/57 09/30/16 13:46 84 69/57 09/30/16 13:45 85 09/30/16 13:02 37.0 86 164/66 (98) 09/30/16 13:00 83 108/68 09/30/16 12:45 92 116/62 09/30/16 12:00 93 20 164/66 (98) 94 Room Air 09/30/16 12:00 97 Room Air 09/30/16 10:20 64 153/86 09/30/16 10:00 93 20 139/61 (87) 94 Room Air 09/30/16 08:00 93 Room Air 09/30/16 08:00 Room Air 09/30/16 08:00 37.0 89 16 119/58 (78) 93 Room Air 09/30/16 06:00 94 16 105/49 (67) 93 Room Air 09/30/16 04:00 36.9 93 24 116/58 (77) 92 Room Air 09/30/16 04:00 92 Room Air 09/30/16 02:00 88 14 126/62 (83) 94 Room Air 09/30/16 00:00 36.8 88 18 119/56 (77) 93 Room Air 09/29/16 23:59 94 Room Air 09/29/16 21:51 36.7 95 22 142/64 (90) 95 Room Air 09/29/16 21:00 91 17 142/81 (97) 09/29/16 20:00 90 22 143/59 (95) 92 09/29/16 19:50 86 20 140/58 (94) 92 09/29/16 19:30 Room Air 09/29/16 19:30 36.7 97 22 143/59 (87) 93 Room Air 09/29/16 19:00 96 20 93 09/29/16 18:00 94 21 94 09/29/16 18:00 95 17 106/52 (70) 94 Room Air 09/29/16 17:49 89 18 110/53 (66) 94 09/29/16 17:00 102 21 91 09/29/16 16:00 96 23 100/51 (66) 93 09/29/16 16:00 36.9 94 17 100/51 (67) 94 Room Air 09/29/16 16:00 94 Room Air 09/29/16 15:00 99 21 105/54 (71) 91 Laboratory Results Last 24 Hours Test 09/29/16 15:27 09/29/16 17:17 09/29/16 22:12 09/30/16 05:43 White Blood Count 25.03 K/uL 24.69 K/uL 21.21 K/uL Red Blood Count 2.72 M/uL 2.70 M/uL 2.65 M/uL Hemoglobin 8.4 g/dL 8.3 g/dL 8.2 g/dL Hematocrit 24.5 % 24.3 % 23.9 % Mean Corpuscular Volume 90.1 fL 90.0 fL 90.2 fL Mean Corpuscular Hemoglobin 30.9 pg 30.7 pg 30.9 pg Mean Corpuscular Hemoglobin Concent 34.3 g/dl 34.2 g/dl 34.3 g/dl Platelet Count 106 K/uL 121 K/uL 114 K/uL Mean Platelet Volume 10.7 fL 11.3 fL 10.7 fL Neutrophils (%) (Auto) 88.0 % 83.8 % Lymphocytes (%) (Auto) 4.3 % 6.6 % Monocytes (%) (Auto) 5.4 % 7.1 % Eosinophils (%) (Auto) 0.8 % 1.3 % Basophils (%) (Auto) 0.0 % 0.0 % Neutrophils # (Auto) 22.01 K/uL 17.75 K/uL Lymphocytes # (Auto) 1.08 K/uL 1.41 K/uL Monocytes # (Auto) 1.36 K/uL 1.50 K/uL Eosinophils # (Auto) 0.19 K/uL 0.28 K/uL Basophils # (Auto) 0.01 K/uL 0.01 K/uL RDW Standard Deviation 49.2 fL 50.3 fL 51.6 fL RDW Coefficient of Variation 18.4 % 19.2 % 19.5 % Immature Granulocyte % (Auto) 1.5 % 1.2 % Immature Granulocyte # (Auto) 0.38 K/uL 0.26 K/uL Nucleated RBC Absolute Count (auto) 0.06 K/uL 0.05 K/uL Nucleated Red Blood Cells % 0.2 % 0.2 % Polychromasia 1+ 1+ Basophilic Stippling 1+ Anisocytosis PRESENT PRESENT Lactic Acid Level 2.2 mmol/L 1.3 mmol/L 1.3 mmol/L Stool Occult Blood POSITIVE Sodium Level 135 mmol/L Potassium Level 3.2 mmol/L Chloride Level 100 mmol/L Carbon Dioxide Level 29 mmol/L Anion Gap 6.0 mmol/L Blood Urea Nitrogen 17 mg/dl Creatinine 1.70 mg/dl Est Creatinine Clear Calc Drug Dose 36.7 ml/min Estimated GFR () 37.9 Estimated GFR (Non- 32.7 BUN/Creatinine Ratio 9.8 Random Glucose 94 mg/dl Calcium Level 8.9 mg/dl Phosphorus Level 2.2 mg/dl Magnesium Level 1.9 mg/dl Total Bilirubin 6.4 mg/dl Aspartate Amino Transf (AST/SGOT) 111 U/L Alanine Aminotransferase (ALT/SGPT) 72 U/L Alkaline Phosphatase 398 U/L Total Protein 4.8 gm/dl Albumin 2.5 gm/dl Globulin 2.3 gm/dl Albumin/Globulin Ratio 1.1 Procalcitonin 1.98 ng/ml Random Vancomycin Level 14.1 mcg/ml Assessment and Plan (1) Leukocytosis Assessment & Plan: continue abx for now, pending culture results.
[2016-09-30] MEDS: METOCLOPRAMIDE HCL INJ 5 MG/ML 2 ML VIAL IV PRN (15:35)
--- NOTE | 2016-09-30 18:09 | Nephrology Progress Note ---
Nephrology Progress Note Date of Service: Sep 30, 2016. Subjective seen on rounds this am 0830; she had 2L UF yesterday and 1.9L today; c/o "butt pain;" confused on my eval; not dyspneic Objective Date Time Temp Pulse Resp B/P (MAP) Pulse Ox O2 Delivery O2 Flow Rate FiO2 09/30/16 18:00 94 20 97 Room Air 09/30/16 16:48 36.7 91 146/67 (93) 09/30/16 16:15 89 146/70 09/30/16 16:00 97 Room Air 09/30/16 16:00 94 19 146/67 (93) 95 Room Air 09/30/16 16:00 81 147/65 09/30/16 15:45 81 140/60 09/30/16 15:30 81 144/69 09/30/16 15:15 89 127/77 09/30/16 14:45 86 139/75 09/30/16 14:30 88 141/73 09/30/16 14:15 88 131/43 09/30/16 14:00 85 20 99/58 (72) 95 Room Air 09/30/16 14:00 89 118/86 09/30/16 13:52 88 131/43 09/30/16 13:52 88 131/43 09/30/16 13:46 84 69/57 09/30/16 13:46 84 69/57 09/30/16 13:45 85 09/30/16 13:02 37.0 86 164/66 (98) 09/30/16 13:00 83 108/68 09/30/16 12:45 92 116/62 09/30/16 12:00 93 20 164/66 (98) 94 Room Air 09/30/16 12:00 97 Room Air 09/30/16 10:20 64 153/86 09/30/16 10:00 93 20 139/61 (87) 94 Room Air 09/30/16 08:00 93 Room Air 09/30/16 08:00 Room Air 09/30/16 08:00 37.0 89 16 119/58 (78) 93 Room Air 09/30/16 06:00 94 16 105/49 (67) 93 Room Air 09/30/16 04:00 36.9 93 24 116/58 (77) 92 Room Air 09/30/16 04:00 92 Room Air 09/30/16 02:00 88 14 126/62 (83) 94 Room Air 09/30/16 00:00 36.8 88 18 119/56 (77) 93 Room Air 09/29/16 23:59 94 Room Air 09/29/16 21:51 36.7 95 22 142/64 (90) 95 Room Air 09/29/16 21:00 91 17 142/81 (97) 09/29/16 20:00 90 22 143/59 (95) 92 09/29/16 19:50 86 20 140/58 (94) 92 09/29/16 19:30 Room Air 09/29/16 19:30 36.7 97 22 143/59 (87) 93 Room Air 09/29/16 19:00 96 20 93 Physical Exam: General-on [id number], today confused Eyes-+scleral icterus ENT-dry mm Neck-supple Lungs-improved air entry BL still some crackles Heart-rrr Abdomen-bs+/soft; no perez Extremities-2+ dependent and scant peripheral edema; R arm in sling Neuro-oriented, fluent/appropriate speech Current Inpatient Medications Medications (Trade) Dose Ordered Sig/Michael Route Start Time Stop Time Status Last Admin Dose Admin Miconazole Nitrate (Desenex Powder) 1 appln BID EXT 09/17/16 21:00 10/17/16 20:59 09/27/16 21:00 1 APPLN Midodrine (Proamatine Tab) 5 mg TID@0800,1200,1800 PO 09/19/16 18:00 10/19/16 17:59 09/30/16 16:46 5 MG Levalbuterol (Xopenex 0.63 Mg/ 3 Ml Neb) 0.63 mg Q6H PRN INH 09/20/16 08:30 10/20/16 08:29 Fentanyl Citrate (Fentanyl Inj) 50 mcg Q1H PRN IV 09/20/16 21:45 10/04/16 21:44 Future Hold 09/21/16 04:14 50 MCG Rifaximin (Xifaxan Tab) 550 mg BID PO 09/22/16 21:00 10/22/16 20:59 09/30/16 08:13 550 MG Lactulose (Chronulac Syrup) 30 gm QID PRN PO 09/22/16 10:30 10/23/16 10:29 09/22/16 11:31 30 GM Lactulose (Chronulac Syrup) 30 gm QID PO 09/23/16 09:00 10/23/16 08:59 Future Hold 09/25/16 08:10 30 GM Phytonadione (Mephyton Tab) 5 mg DAILY PO 09/24/16 10:30 10/24/16 10:29 09/30/16 08:13 5 MG Multivitamins (Multivitamin Tab) 1 tab QAM PO 09/25/16 09:00 10/25/16 08:59 09/30/16 08:13 1 TAB Heparin Sodium (Porcine) (Heparin 10 Unit/ ml 5 ml Flush) 5 ml PRN PRN FLUSH 09/25/16 02:00 10/25/16 01:59 Metoclopramide HCl (Reglan Inj) 5 mg Q6H PRN IV 09/27/16 12:45 10/25/16 12:44 09/30/16 15:35 5 MG Prednisone (PredniSONE TAB) 5 mg DAILY PO 09/28/16 09:00 10/28/16 08:59 09/30/16 08:13 5 MG Enteral Nutritional Formula (Boost) 1 can BIDM PO 09/28/16 07:15 10/28/16 07:14 09/30/16 08:45 1 CAN Ursodiol (Actigall Cap) 600 mg BID PO 09/28/16 21:00 10/28/16 20:59 09/30/16 08:13 600 MG Pantoprazole Sodium (Protonix Tab) 40 mg QAM PO 09/29/16 09:00 10/29/16 08:59 09/30/16 08:13 40 MG Vancomycin HCl (Consult) 1 ea UD PRN N/A 09/29/16 08:45 10/29/16 08:44 Imipenem/ Cilastatin Sodium (Consult) 1 ea UD N/A 09/29/16 09:19 10/29/16 09:18 Imipenem/ Cilastatin Sodium 500 mg/Dextrose 110 ml @ 100 mls/hr Q12H IV 09/30/16 04:00 10/10/16 03:59 09/30/16 16:45 100 MLS/HR Fentanyl Citrate (Fentanyl Inj) 25 mcg Q6 PRN IV 09/29/16 16:00 10/30/16 15:59 09/30/16 00:08 25 MCG Heparin Sodium (Porcine) (No Heparin In Dialysis) 1 ea TODAY@0800 N/A 09/30/16 08:00 09/30/16 23:59 Albumin Human (Albumin 25%) 12.5 gm TODAY@0800,1200 IV 09/30/16 08:00 09/30/16 23:59 09/30/16 14:15 12.5 GM Epoetin Ken [id number] units/ Syringe 0.6 ml @ 1 mls/min TODAY@0800 IV. 09/30/16 08:00 09/30/16 23:59 09/30/16 14:36 1 MLS/MIN Last 24 Hours Test 09/29/16 22:12 09/30/16 05:43 White Blood Count 24.69 K/uL 21.21 K/uL Red Blood Count 2.70 M/uL 2.65 M/uL Hemoglobin 8.3 g/dL 8.2 g/dL Hematocrit 24.3 % 23.9 % Mean Corpuscular Volume 90.0 fL 90.2 fL Mean Corpuscular Hemoglobin 30.7 pg 30.9 pg Mean Corpuscular Hemoglobin Concent 34.2 g/dl 34.3 g/dl RDW Standard Deviation 50.3 fL 51.6 fL RDW Coefficient of Variation 19.2 % 19.5 % Platelet Count 121 K/uL 114 K/uL Mean Platelet Volume 11.3 fL 10.7 fL Nucleated RBC Absolute Count (auto) 0.05 K/uL Nucleated Red Blood Cells % 0.2 % Lactic Acid Level 1.3 mmol/L 1.3 mmol/L Neutrophils (%) (Auto) 83.8 % Lymphocytes (%) (Auto) 6.6 % Monocytes (%) (Auto) 7.1 % Eosinophils (%) (Auto) 1.3 % Basophils (%) (Auto) 0.0 % Neutrophils # (Auto) 17.75 K/uL Lymphocytes # (Auto) 1.41 K/uL Monocytes # (Auto) 1.50 K/uL Eosinophils # (Auto) 0.28 K/uL Basophils # (Auto) 0.01 K/uL Immature Granulocyte % (Auto) 1.2 % Immature Granulocyte # (Auto) 0.26 K/uL Polychromasia 1+ Anisocytosis PRESENT Sodium Level 135 mmol/L Potassium Level 3.2 mmol/L Chloride Level 100 mmol/L Carbon Dioxide Level 29 mmol/L Anion Gap 6.0 mmol/L Blood Urea Nitrogen 17 mg/dl Creatinine 1.70 mg/dl Est Creatinine Clear Calc Drug Dose 36.7 ml/min Estimated GFR () 37.9 Estimated GFR (Non- 32.7 BUN/Creatinine Ratio 9.8 Random Glucose 94 mg/dl Calcium Level 8.9 mg/dl Phosphorus Level 2.2 mg/dl Magnesium Level 1.9 mg/dl Total Bilirubin 6.4 mg/dl Aspartate Amino Transf (AST/SGOT) 111 U/L Alanine Aminotransferase (ALT/SGPT) 72 U/L Alkaline Phosphatase 398 U/L Total Protein 4.8 gm/dl Albumin 2.5 gm/dl Globulin 2.3 gm/dl Albumin/Globulin Ratio 1.1 Procalcitonin 1.98 ng/ml Random Vancomycin Level 14.1 mcg/ml Assessment & Plan 60 yo female with biliary cirrhosis with anuric ileana/atn vs HRS who required intubation, extubated 09/23. on daily dialysis 09/20-09/25; 09/27-?. -had HD again today to cont to optimize volume/clearance -anticipate daily dialysis for at least next 1-2 days and will follow closely -acute on chronic anemia >> cont epo on hd Appreciate consult
--- NOTE | 2016-09-30 21:33 | Progress Note ---
Medicine Progress Note Date & Time of Visit: Sep 30, 2016 at 11:20 . Subjective No fever. No chest pain. No cough or SOB. Appetite fair. No N/V. Diarrhea improved. Discouraged; wants to go home. . Objective Last 8 Hrs Date Time Temp Pulse Resp B/P (MAP) Pulse Ox O2 Delivery O2 Flow Rate FiO2 09/30/16 20:00 Room Air 09/30/16 19:57 36.5 98 18 132/64 (86) 95 Room Air 09/30/16 18:00 94 20 97 Room Air 09/30/16 16:48 36.7 91 146/67 (93) 09/30/16 16:15 89 146/70 09/30/16 16:00 97 Room Air 09/30/16 16:00 94 19 146/67 (93) 95 Room Air 09/30/16 16:00 81 147/65 09/30/16 15:45 81 140/60 09/30/16 15:30 81 144/69 09/30/16 15:15 89 127/77 09/30/16 14:45 86 139/75 09/30/16 14:30 88 141/73 09/30/16 14:15 88 131/43 09/30/16 14:00 85 20 99/58 (72) 95 Room Air 09/30/16 14:00 89 118/86 09/30/16 13:52 88 131/43 09/30/16 13:52 88 131/43 09/30/16 13:46 84 69/57 09/30/16 13:46 84 69/57 09/30/16 13:45 85 Physical Exam: General- no acute distress Eyes- sclerae icteric Neck- right IJ central venous cath; no JVD Lungs- clear to auscultation Heart- RRR Abdomen- + BS, soft, nontender Extremities- 1-2+ pretibial edema; maricarmen right shoulder incision removed / humerus; right elbow protector Neuro- alert, oriented . Laboratory Results: Last 24 Hours Test 09/29/16 22:12 09/30/16 05:43 White Blood Count 24.69 K/uL 21.21 K/uL Red Blood Count 2.70 M/uL 2.65 M/uL Hemoglobin 8.3 g/dL 8.2 g/dL Hematocrit 24.3 % 23.9 % Mean Corpuscular Volume 90.0 fL 90.2 fL Mean Corpuscular Hemoglobin 30.7 pg 30.9 pg Mean Corpuscular Hemoglobin Concent 34.2 g/dl 34.3 g/dl RDW Standard Deviation 50.3 fL 51.6 fL RDW Coefficient of Variation 19.2 % 19.5 % Platelet Count 121 K/uL 114 K/uL Mean Platelet Volume 11.3 fL 10.7 fL Nucleated RBC Absolute Count (auto) 0.05 K/uL Nucleated Red Blood Cells % 0.2 % Lactic Acid Level 1.3 mmol/L 1.3 mmol/L Neutrophils (%) (Auto) 83.8 % Lymphocytes (%) (Auto) 6.6 % Monocytes (%) (Auto) 7.1 % Eosinophils (%) (Auto) 1.3 % Basophils (%) (Auto) 0.0 % Neutrophils # (Auto) 17.75 K/uL Lymphocytes # (Auto) 1.41 K/uL Monocytes # (Auto) 1.50 K/uL Eosinophils # (Auto) 0.28 K/uL Basophils # (Auto) 0.01 K/uL Immature Granulocyte % (Auto) 1.2 % Immature Granulocyte # (Auto) 0.26 K/uL Polychromasia 1+ Anisocytosis PRESENT Sodium Level 135 mmol/L Potassium Level 3.2 mmol/L Chloride Level 100 mmol/L Carbon Dioxide Level 29 mmol/L Anion Gap 6.0 mmol/L Blood Urea Nitrogen 17 mg/dl Creatinine 1.70 mg/dl Est Creatinine Clear Calc Drug Dose 36.7 ml/min Estimated GFR () 37.9 Estimated GFR (Non- 32.7 BUN/Creatinine Ratio 9.8 Random Glucose 94 mg/dl Calcium Level 8.9 mg/dl Phosphorus Level 2.2 mg/dl Magnesium Level 1.9 mg/dl Total Bilirubin 6.4 mg/dl Aspartate Amino Transf (AST/SGOT) 111 U/L Alanine Aminotransferase (ALT/SGPT) 72 U/L Alkaline Phosphatase 398 U/L Total Protein 4.8 gm/dl Albumin 2.5 gm/dl Globulin 2.3 gm/dl Albumin/Globulin Ratio 1.1 Procalcitonin 1.98 ng/ml Random Vancomycin Level 14.1 mcg/ml Assessment & Plan CARDIOVASCULAR Systolic blood pressures generally running in the 90s - low 100s. Continue midodrine. RESPIRATORY Experienced acute hypoxic respiratory failure 09/20/16 secondary to fluid overload from IV fluids and albumin; may have aspirated as well. Required intubation/mechanical ventilation. Pulmonary edema improved with dialysis. Extubated. Now oxygenating well on room air. GI Underlying biliary cirrhosis with portal hypertension. GI consulted. Bilirubin today 6.4. Continue rifaximin. Nutrition consulted. NGT removed. Advance diet as tolerated. Chronic kidney disease with acute kidney injury - ATN vs hepatorenal syndrome. Placement of hemodialysis catheter 09/27. Management per Nephrology. NEURO Experienced altered mental status secondary to multifactorial delirium. Head CT negative for acute event. Now alert and usually oriented 3. Continue rifaximin for hepatic encephalopathy. ID Received IV vancomycin and piperacillin/tazobactam for possible aspiration pneumonia. Receiving fluconazole for Melissa albicans noted in sputum and bronchial washings. Loose stools - negative for C. difficile 09/27. WBC elevated @ 29,880 yesterday, 43,900 after dialysis yesterday, 22,110 today. Procalcitonin elevated. Chest x-ray showed basilar densities, but clinically pt did not seem to have pneumonia. Consider biliary tract infection, SBP, colitis, line infection, other sources. Consider hemorrhage / hematoma (e.g., retroperitoneal bleed) as etiology of leukocytosis. CT chest / abdomen / pelvis did not show any apparent source of infection. Broad spectrum antibiotics pending culture results. HEME Hgb 5.6 yesterday. No gross GI bleeding, but stools heme +. CT abdomen and pelvis did not show any apparent retroperitoneal or intra- abdominal bleed. Transfused with 2 units pRBC's. Hgb today 8.2. Plts 86,000 09/28, 114,000 today. Heparin-PF4 AB screen negative. GENERAL DEBILITATION Increase activity as tolerated. VTE PROPHYLAXIS SQ heparin stopped 09/28 due to thrombocytopenia / anemia. SCD's. DISPOSITION To be determined. Anticipate need for skilled care or inpatient rehabilitation. . Current Inpatient Medications: Current Inpatient Medications Medications (Trade) Dose Ordered Sig/Michael Route Start Time Stop Time Status Last Admin Dose Admin Miconazole Nitrate (Desenex Powder) 1 appln BID EXT 09/17/16 21:00 10/17/16 20:59 09/27/16 21:00 1 APPLN Midodrine (Proamatine Tab) 5 mg TID@0800,1200,1800 PO 09/19/16 18:00 10/19/16 17:59 09/30/16 16:46 5 MG Levalbuterol (Xopenex 0.63 Mg/ 3 Ml Neb) 0.63 mg Q6H PRN INH 09/20/16 08:30 10/20/16 08:29 Fentanyl Citrate (Fentanyl Inj) 50 mcg Q1H PRN IV 09/20/16 21:45 10/04/16 21:44 Future Hold 09/21/16 04:14 50 MCG Rifaximin (Xifaxan Tab) 550 mg BID PO 09/22/16 21:00 10/22/16 20:59 09/30/16 19:52 550 MG Lactulose (Chronulac Syrup) 30 gm QID PRN PO 09/22/16 10:30 10/23/16 10:29 09/22/16 11:31 30 GM Lactulose (Chronulac Syrup) 30 gm QID PO 09/23/16 09:00 10/23/16 08:59 Future Hold 09/25/16 08:10 30 GM Phytonadione (Mephyton Tab) 5 mg DAILY PO 09/24/16 10:30 10/24/16 10:29 09/30/16 08:13 5 MG Multivitamins (Multivitamin Tab) 1 tab QAM PO 09/25/16 09:00 10/25/16 08:59 09/30/16 08:13 1 TAB Heparin Sodium (Porcine) (Heparin 10 Unit/ ml 5 ml Flush) 5 ml PRN PRN FLUSH 09/25/16 02:00 10/25/16 01:59 Metoclopramide HCl (Reglan Inj) 5 mg Q6H PRN IV 09/27/16 12:45 10/25/16 12:44 09/30/16 15:35 5 MG Prednisone (PredniSONE TAB) 5 mg DAILY PO 09/28/16 09:00 10/28/16 08:59 09/30/16 08:13 5 MG Enteral Nutritional Formula (Boost) 1 can BIDM PO 09/28/16 07:15 10/28/16 07:14 09/30/16 08:45 1 CAN Ursodiol (Actigall Cap) 600 mg BID PO 09/28/16 21:00 10/28/16 20:59 09/30/16 19:51 600 MG Pantoprazole Sodium (Protonix Tab) 40 mg QAM PO 09/29/16 09:00 10/29/16 08:59 09/30/16 08:13 40 MG Vancomycin HCl (Consult) 1 ea UD PRN N/A 09/29/16 08:45 10/29/16 08:44 Imipenem/ Cilastatin Sodium (Consult) 1 ea UD N/A 09/29/16 09:19 10/29/16 09:18 Imipenem/ Cilastatin Sodium 500 mg/Dextrose 110 ml @ 100 mls/hr Q12H IV 09/30/16 04:00 10/10/16 03:59 09/30/16 16:45 100 MLS/HR Fentanyl Citrate (Fentanyl Inj) 25 mcg Q6 PRN IV 09/29/16 16:00 10/30/16 15:59 09/30/16 00:08 25 MCG Heparin Sodium (Porcine) (No Heparin In Dialysis) 1 ea TODAY@0800 N/A 09/30/16 08:00 09/30/16 23:59 Albumin Human (Albumin 25%) 12.5 gm TODAY@0800,1200 IV 09/30/16 08:00 09/30/16 23:59 09/30/16 14:15 12.5 GM Epoetin Ken [id number] units/ Syringe 0.6 ml @ 1 mls/min TODAY@0800 IV. 09/30/16 08:00 09/30/16 23:59 09/30/16 14:36 1 MLS/MIN Heparin Sodium (Porcine) (No Heparin In Dialysis) ONE ONCE N/A 10/01/16 08:00 10/01/16 08:01 Albumin Human (Albumin 25%) 12.5 gm 0800,0930 IV 10/01/16 08:00 10/01/16 19:00 Epoetin Ken [id number] units/ Syringe 0.6 ml @ 1 mls/min TODAY@0800 IV. 10/01/16 08:00 10/01/16 19:00
[2016-10-01] VITALS (12 sets, daily range): BP systolic 103–150; BP diastolic 42–91; PULSE 90–100; TEMP 36.7–37; O2SAT 93–95
[2016-10-01] MEDS: FENTANYL CITRATE INJ 50 MCG/1 ML 2 ML VIAL IV PRN ×3 (02:18→14:13)
[2016-10-01] MEDS: IMIPENEM/CILASTATIN IV 500 MG in DEXTROSE 5% 100ML 100 ML IV SCH ×2 (04:28→17:45)
[2016-10-01 05:23] LABS: HEMATOCRIT 23.3 % (37-47); MEAN CELL VOLUME 91.4 fL (80-100); MEAN CORPUSCULAR HGB CONC 31.8 g/dl (32-36); MEAN PLATELET VOLUME 10.8 fL (7.4-10.4); PLATELET COUNT 116 K/uL (130-400); RED BLOOD COUNT 2.55 M/uL (4.2-5.4); WHITE BLOOD COUNT 15.09 K/uL (4.8-10.8)
[2016-10-01 06:00] LABS: ALB/GLOB RATIO 1.2 (0.9-2); BUN/CREATININE RATIO 9.8 (10-20); CALCIUM 8.9 mg/dl (8.5-10.1); CREATININE 1.3 mg/dl (0.60-1.20); MAGNESIUM 1.9 mg/dl (1.8-2.4); PHOSPHORUS 2.2 mg/dl (2.5-4.9); POTASSIUM 3.5 mmol/L (3.5-5.1)
[2016-10-01 06:18] LABS: ANISOCYTOSIS PRESENT; COMPLETE YES; EOS % 1.8 %; IG% 0.6 %; LYMPH % 5.6 %; LYMPH ABS # 0.85 K/uL (1.2-3.4); MONO % 7.6 %; NEUT % 84.4 %; POLYCHROMASIA 1+; VACUOLIZATION 1+
[2016-10-01] MEDS: PANTOprazole SOD 40 MG TAB PO SCH (07:20)
[2016-10-01] MEDS: BOOST VANILLA PO SCH ×6 (07:20→16:45)
[2016-10-01] MEDS: URSODIOL 300 MG CAP PO SCH ×2 (07:21→20:46)
[2016-10-01] MEDS: MIDODRINE 2.5 MG TAB PO SCH ×3 (07:21→17:46)
[2016-10-01] MEDS: PHYTONADIONE 5 MG TAB PO SCH (07:21)
[2016-10-01] MEDS: RIFAXIMIN TAB 550 MG TAB PO SCH ×2 (07:21→20:46)
[2016-10-01] MEDS: MULTIVITAMIN TAB PO SCH (07:22)
[2016-10-01] MEDS: METOCLOPRAMIDE HCL INJ 5 MG/ML 2 ML VIAL IV PRN (07:40)
[2016-10-01] MEDS: ALBUMIN HUMAN 25% 12.5 GM/50 ML VIAL IV SCH ×2 (08:00→10:41)
[2016-10-01] MEDS ORDERED: EPOETIN ALFA INJ 12,000 UNITS in SYRINGE 0 ML IV. SCH (08:00)
[2016-10-01] MEDS ORDERED: EPOETIN ALFA 10,000 UNITS/ML VIAL IV. ONE (08:00)
--- NOTE | 2016-10-01 10:39 | Progress Note ---
Subjective Date of Service: Oct 01, 2016. Subjective pt remains on broad spectrum abx, tolerating well. afebrile since admission to hospital. wbc improved to 15 today. Blood cultures negative to date x 2. LFT's improving as well. Creat better today, 1.3. No overnight events. Fluconazole stopped. Problem List Medical Problems: (1) Displaced fracture of proximal end of right humerus Status: Acute Surgical Problems: (1) Status post catheter ablation for SVT Status: Chronic Objective Vital Signs Date Time Temp Pulse Resp B/P (MAP) Pulse Ox O2 Delivery O2 Flow Rate FiO2 10/01/16 10:29 92 15 138/50 (79) 93 Room Air 10/01/16 08:00 Room Air 10/01/16 08:00 36.9 100 18 150/83 (105) 95 Room Air 10/01/16 06:00 100 18 117/68 (84) 93 Room Air 10/01/16 04:00 36.8 93 20 135/59 (84) 95 Room Air 10/01/16 04:00 Room Air 10/01/16 02:00 95 18 113/42 (65) 93 Room Air 10/01/16 00:01 36.8 90 18 103/52 (69) 94 Room Air 09/30/16 23:59 Room Air 09/30/16 22:00 97 18 106/45 (65) 96 Room Air 09/30/16 20:00 Room Air 09/30/16 19:57 36.5 98 18 132/64 (86) 95 Room Air 09/30/16 18:00 94 20 97 Room Air 09/30/16 16:48 36.7 91 146/67 (93) 09/30/16 16:15 89 146/70 09/30/16 16:00 97 Room Air 09/30/16 16:00 94 19 146/67 (93) 95 Room Air 09/30/16 16:00 81 147/65 09/30/16 15:45 81 140/60 09/30/16 15:30 81 144/69 09/30/16 15:15 89 127/77 09/30/16 14:45 86 139/75 09/30/16 14:30 88 141/73 09/30/16 14:15 88 131/43 09/30/16 14:00 85 20 99/58 (72) 95 Room Air 09/30/16 14:00 89 118/86 09/30/16 13:52 88 131/43 09/30/16 13:52 88 131/43 09/30/16 13:46 84 69/57 09/30/16 13:46 84 69/57 09/30/16 13:45 85 09/30/16 13:02 37.0 86 164/66 (98) 09/30/16 13:00 83 108/68 09/30/16 12:45 92 116/62 09/30/16 12:00 93 20 164/66 (98) 94 Room Air 09/30/16 12:00 97 Room Air Laboratory Results Item Value Date Time Blood Culture - Preliminary Resulted 09/29/16 1535 Blood NO GROWTH TO DATE. Blood Culture - Preliminary Resulted 09/29/16 1527 Blood NO GROWTH TO DATE. Last 24 Hours Test 10/01/16 05:12 White Blood Count 15.09 K/uL Red Blood Count 2.55 M/uL Hemoglobin 7.4 g/dL Hematocrit 23.3 % Mean Corpuscular Volume 91.4 fL Mean Corpuscular Hemoglobin 29.0 pg Mean Corpuscular Hemoglobin Concent 31.8 g/dl Platelet Count 116 K/uL Mean Platelet Volume 10.8 fL Neutrophils (%) (Auto) 84.4 % Lymphocytes (%) (Auto) 5.6 % Monocytes (%) (Auto) 7.6 % Eosinophils (%) (Auto) 1.8 % Basophils (%) (Auto) 0.0 % Neutrophils # (Auto) 12.74 K/uL Lymphocytes # (Auto) 0.85 K/uL Monocytes # (Auto) 1.14 K/uL Eosinophils # (Auto) 0.27 K/uL Basophils # (Auto) 0.00 K/uL RDW Standard Deviation 57.2 fL RDW Coefficient of Variation 20.7 % Immature Granulocyte % (Auto) 0.6 % Immature Granulocyte # (Auto) 0.09 K/uL Toxic Vacuolation 1+ Polychromasia 1+ Basophilic Stippling 1+ Anisocytosis PRESENT Sodium Level 136 mmol/L Potassium Level 3.5 mmol/L Chloride Level 103 mmol/L Carbon Dioxide Level 27 mmol/L Anion Gap 6.0 mmol/L Blood Urea Nitrogen 13 mg/dl Creatinine 1.30 mg/dl Est Creatinine Clear Calc Drug Dose 47.5 ml/min Estimated GFR () 52.4 Estimated GFR (Non- 45.2 BUN/Creatinine Ratio 9.8 Random Glucose 99 mg/dl Lactic Acid Level 1.1 mmol/L Calcium Level 8.9 mg/dl Phosphorus Level 2.2 mg/dl Magnesium Level 1.9 mg/dl Total Bilirubin 7.7 mg/dl Aspartate Amino Transf (AST/SGOT) 69 U/L Alanine Aminotransferase (ALT/SGPT) 52 U/L Alkaline Phosphatase 389 U/L Total Protein 4.8 gm/dl Albumin 2.6 gm/dl Globulin 2.2 gm/dl Albumin/Globulin Ratio 1.2 Assessment and Plan (1) Leukocytosis Assessment & Plan: improving on current abx, would continue for min 7 days. Unclear if abd source for infection with h/o TIPS and underlying liver disease, blood cultures remain negative. Doubt yeast in sputum/bronch significant, suspect nml sebastián, agree with d/c fluconazole, especially in setting of increased liver enzymes, which are now improving.
[2016-10-01] MEDS: MICONAZOLE NITRATE POWDER 43 GM EXT SCH ×2 (10:41→20:46)
[2016-10-01 13:16] LABS: HEMATOCRIT 24.9 % (37-47); MEAN CELL VOLUME 91.9 fL (80-100); MEAN CORPUSCULAR HEMOGLOBIN 29.5 pg (25-34); MEAN CORPUSCULAR HGB CONC 32.1 g/dl (32-36); MEAN PLATELET VOLUME 10.5 fL (7.4-10.4); PLATELET COUNT 118 K/uL (130-400); RED BLOOD COUNT 2.71 M/uL (4.2-5.4); WHITE BLOOD COUNT 15.42 K/uL (4.8-10.8)
[2016-10-01 13:39] LABS: INR 1.2 (0.9-1.1); PROTHROMBIN TIME (PATIENT) 12.9 SECONDS (9.0-12.0)
[2016-10-01 13:42] LABS: BUN/CREATININE RATIO 9.7 (10-20); CALCIUM 9.2 mg/dl (8.5-10.1); CREATININE 1.7 mg/dl (0.60-1.20); MAGNESIUM 2.1 mg/dl (1.8-2.4); POTASSIUM 3.7 mmol/L (3.5-5.1)
[2016-10-01 13:50] LABS: ALB/GLOB RATIO 1.1 (0.9-2); PHOSPHORUS 2.8 mg/dl (2.5-4.9)
--- NOTE | 2016-10-01 13:54 | Critical Care Progress Note ---
Critical Care Progress Note Date of Service Oct 01, 2016. ICU Day ICU Day Number: [address] Cummings Subjective Patient awake and alert and carrying a conversation. She says she feels depressed and wants to go home, although she is more feisty/perky today. She continues to deny chest pain, abdominal pain, SOB on room air, palpitations. Nausea without vomiting is intermittent with food, but improved with medication. No lightheadedness, headache, or vision changes. She has ongoing shoulder pain. Patient still has diarrhea, but has been refusing Desenex on her bottom. She is agreeable today provided pre-application analgesia is provided. Objective GENERAL: Responsive, lying in bed, saturating 96% on RA HEAD: Normocephalic, atraumatic. EYES: Normal sclera and conjunctiva. PERRL. EOMI. Scleral icterus. Conjunctiva normal. NECK: Supple, no adenopathy. Tender on palpation at site of dialysis port and central line insertion. Skin is significantly bruised. LUNGS: Normal chest wall mechanics, poor air entry. No crackles, or wheezes. No dyspnea upon lying flat HEART: S1 and S2 normal, systolic murmur appreciated in the aortic region ABDOMEN: Abdomen soft, without ascites, bowel sounds present, no masses, no rebound or guarding. Tenderness and bruising on LLQ at site of previous heparin SC injection SKIN: Warm, pink, dry. No rashes. Jaundiced. Bruising on right neck, abdomen, and on left arm from previous trial of PICC insertion. Evidence of venostasis on lower limbs bilaterally. Ulcer on right elbow. Sacral region raw, but does not appear to be infected at this time. EXTREMITIES: Steri-strips in place on right shoulder at site of srugery. Bilateral 2+ lower extremity edema. Patient able to wiggle fingers and toes. NEURO/PSYCH: A+Ox3, Pupils equal. Risk Control Consultant strength 4/5 on right hand, 5/5 on left hand. Engaging and asking questions today, and providing sarcastic comments. Current SOFA Score SOFA Score Response (Comments) Value Platelets (x10) < 150 1 Bilirubin (mg/dL) 6.0 - 11.9 3 [place] Coma Score 15 0 Level of Hypotension No Hypotension 0 Creatinine (mg/dL) 1.2 - 1.9 1 Total 5 Assessment & Plan Critically ill reason: 60 year old female post op from orthopedic surgery with encephalopathy status secondary to hepatorenal syndrome, requiring intubation for impending hypoxic and hypercapnic respiratory failure. Subsequent acute drop in hemoglobin (unknown cause) necessitating transfusion and significant leukocytosis. Neuro - CAM negative - Ammonia remains WNL. Continue rifaximin for hepatic encephalopathy. - Signs of depression, but holding off on medication at this time due to risks of accumulation given impaired liver function - Continue to monitor for changes in RASS CV - SBP noted to be 90-140s. HR stable in 90s. - Blood pressures stable even during dialysis. - Continue midodrine Resp - On RA, saturating in the 90s% GI/Nutrition - Has hepatorenal syndrome secondary to primary biliary cirrhosis. Patient previously on transplant list but was too well. Current MELD score 29. GI consulted. * Patient missed her appointment at [facility] for transplant evaluation due being unwell, and necessitating ICU transfer. - Lactulose PRN for decreased bowel movements - Trend LFTS every other day. Continue ursodiol 600mg BID. Evidence of progressing hepatic failure with increasing bilirubin - Tolerating PO renal diet. Dietitian consulted. Metoclopramide 5mg (renally dosed) PRN nausea. Continue multivitamin and vitamin K supplements. - GI prophylaxis: PO pantoprazole Renal/Fluid - Patient s/p PermCath insertion via right IJ and right central line. Ongoing dialysis for ultrafiltration and toxin removal. Creatinine elevated but stable. - Continue Epoetin - Trend BMP - Continue strict I&O's ID - Afebrile. Leukocytosis is downtrending. * Blood cultures pending -prelim negative * Imipenem/cilastatin + vancomycin (day 3 of 14) - Ongoing monitoring of elbow ulcer, and sacral skin (raw secondary to diarrhea - C.diff toxin negative). Wound consulted. Endo - Continue prednisone 5mg daily. Of note, patient on chronic prednisone 1mg daily. - Continue monitoring blood glucose. Recent levels have been within acceptable ranges. Heme - s/p transfusion of 2 units pRBCs. Hb and platelets stable. - Hemolysis workup ordered including: LDH, haptoglobin, retic count, peripheral smear MSK - As per ortho recommendations: sling x 6 weeks with no shoulder GA/ROM exercises x 6 weeks. May remove sling for elbow/wrist ROM exercises. PT/OT consulted DVT PPx - Hold heparin SC 5000 units BID for now, given acute drop in hemoglobin. Access - 2x peripheral IV, 1 right IJ Perm Cath, 1 right central line Resident Physician Supervision Note: I was present with Dr. Cindy Weaver during the history and exam. I discussed the case with the resident and agree with the findings and plan as documented in the note. Any exceptions or clarifications are listed here: Patient with toxic-metabolic encephalopathy, secondary to liver failure (due to PBC), and perhaps a component of renal failure, as well as delayed clearance of medication. Steadily improving, now mental status at baseline S/p PermCath, dialyzed daily so far Received 2 units PRBC during HD on 09/29. Stool was positive for occult blood, but no serious bleeding noted Continues to have diarrhea Had a spike in WBC, procalcitonin rising. No obvious source for sepsis. Cdiff negative. Send blood cultures and started imipenem and vancomycin. WBC finally trending down Finished course of Diflucan Continue wound care on her right elbow Continue perianal wound care. Patient refusing Dignishield Continue Prednisone 5 mg. Her leukocytosis worsened as the steroids were being tapered Continue Ursodiol. Potential transfer to tertiary care center for liver/kidney transplant if her condition improves. Bilirubin is still rising, possibly developing worsening liver failure. Continue to monitor Hold SC heparin, platelets trending down (now stabilized), anemic. S/p CT chest/abdomen and pelvis - no source of bleeding identified HIT panel negative, thrombocytopenia likely secondary to liver failure Check for hemolysis. Haptoglobin pending S/p right IJ single lumen central central line yesterday Would avoid initiating antidepressants for now. They require caution in liver disease Mobilize patient. OOB to chair daily We had an extensive discussion yesterday with the , explained him the current condition. She improved initially, but now is stagnating, and I am concerned about the rising bilirubin. She is exposed to multiple serious complications in her fragile state. It would be sabillon not to escalate care in case she worsens Critical care time spent greater than 30 minutes May be transferred out of the ICU to a monitored bed Documented By: Ayden Cummings MD [place] II Score Date Score Was Generated: Sep 24, 2016 Consults & Procedures Consultants: Gastroenterology: Dr. Noel Infectious diseases: Dr. Bergman Neurology: Dr. Dunn Nephrology: Dr. Thakkar Orthopedics: Dr. Sensiba Vascular: Dr. Rouse Wound care: Dr. Yeung Dietitisrinivasan PT OT Procedures: 09/17/16: Right reverse total shoulder arthroplasty, removal of deep hardware right proximal humerus, debridement of olecranon ulcer right elbow 09/20/16: Trialysis central catheter inserted 09/20/16: Echo 09/20/16: Intubated 09/21/16: Bronchoscopy 09/24/16: Midline inserted 09/24/16: Extubated 09/25/16: Trialysis removed 09/27/16: PermCath inserted 09/28/16: Midline leaking, removed 09/29/16: Right central line inserted Data Medications: Current Inpatient Medications Medications (Trade) Dose Ordered Sig/Michael Route Start Time Stop Time Status Last Admin Dose Admin Miconazole Nitrate (Desenex Powder) 1 appln BID EXT 09/17/16 21:00 10/17/16 20:59 09/27/16 21:00 1 APPLN Midodrine (Proamatine Tab) 5 mg TID@0800,1200,1800 PO 09/19/16 18:00 10/19/16 17:59 10/01/16 12:27 5 MG Levalbuterol (Xopenex 0.63 Mg/ 3 Ml Neb) 0.63 mg Q6H PRN INH 09/20/16 08:30 10/20/16 08:29 Fentanyl Citrate (Fentanyl Inj) 50 mcg Q1H PRN IV 09/20/16 21:45 10/04/16 21:44 Future Hold 09/21/16 04:14 50 MCG Rifaximin (Xifaxan Tab) 550 mg BID PO 09/22/16 21:00 10/22/16 20:59 10/01/16 07:21 550 MG Phytonadione (Mephyton Tab) 5 mg DAILY PO 09/24/16 10:30 10/24/16 10:29 10/01/16 07:21 5 MG Multivitamins (Multivitamin Tab) 1 tab QAM PO 09/25/16 09:00 10/25/16 08:59 10/01/16 07:22 1 TAB Heparin Sodium (Porcine) (Heparin 10 Unit/ ml 5 ml Flush) 5 ml PRN PRN FLUSH 09/25/16 02:00 10/25/16 01:59 Metoclopramide HCl (Reglan Inj) 5 mg Q6H PRN IV 09/27/16 12:45 10/25/16 12:44 10/01/16 07:40 5 MG Prednisone (PredniSONE TAB) 5 mg DAILY PO 09/28/16 09:00 10/28/16 08:59 10/01/16 07:20 5 MG Enteral Nutritional Formula (Boost) 1 can BIDM PO 09/28/16 07:15 10/28/16 07:14 09/30/16 08:45 1 CAN Ursodiol (Actigall Cap) 600 mg BID PO 09/28/16 21:00 10/28/16 20:59 10/01/16 07:21 600 MG Pantoprazole Sodium (Protonix Tab) 40 mg QAM PO 09/29/16 09:00 10/29/16 08:59 10/01/16 07:20 40 MG Vancomycin HCl (Consult) 1 ea UD PRN N/A 09/29/16 08:45 10/29/16 08:44 Imipenem/ Cilastatin Sodium (Consult) 1 ea UD N/A 09/29/16 09:19 10/29/16 09:18 Imipenem/ Cilastatin Sodium 500 mg/Dextrose 110 ml @ 100 mls/hr Q12H IV 09/30/16 04:00 10/10/16 03:59 10/01/16 04:28 100 MLS/HR Fentanyl Citrate (Fentanyl Inj) 25 mcg Q6 PRN IV 09/29/16 16:00 10/30/16 15:59 10/01/16 08:39 25 MCG Albumin Human (Albumin 25%) 12.5 gm 0800,0930 IV 10/01/16 08:00 10/01/16 19:00 Epoetin Ken 91583 units/ Syringe 0.6 ml @ 1 mls/min TODAY@0800 IV. 10/01/16 08:00 10/01/16 19:00 Vital Signs: Date Time Temp Pulse Resp B/P (MAP) Pulse Ox O2 Delivery O2 Flow Rate FiO2 10/01/16 12:18 37.0 97 20 131/91 (104) 95 Room Air 10/01/16 10:29 92 15 138/50 (79) 93 Room Air 10/01/16 08:00 Room Air 10/01/16 08:00 36.9 100 18 150/83 (105) 95 Room Air 10/01/16 06:00 100 18 117/68 (84) 93 Room Air 10/01/16 04:00 36.8 93 20 135/59 (84) 95 Room Air 10/01/16 04:00 Room Air 10/01/16 02:00 95 18 113/42 (65) 93 Room Air 10/01/16 00:01 36.8 90 18 103/52 (69) 94 Room Air 09/30/16 23:59 Room Air 09/30/16 22:00 97 18 106/45 (65) 96 Room Air 09/30/16 20:00 Room Air 09/30/16 19:57 36.5 98 18 132/64 (86) 95 Room Air 09/30/16 18:00 94 20 97 Room Air 09/30/16 16:48 36.7 91 146/67 (93) 09/30/16 16:15 89 146/70 09/30/16 16:00 97 Room Air 09/30/16 16:00 94 19 146/67 (93) 95 Room Air 09/30/16 16:00 81 147/65 09/30/16 15:45 81 140/60 09/30/16 15:30 81 144/69 09/30/16 15:15 89 127/77 09/30/16 14:45 86 139/75 09/30/16 14:30 88 141/73 09/30/16 14:15 88 131/43 09/30/16 14:00 85 20 99/58 (72) 95 Room Air 09/30/16 14:00 89 118/86 Laboratory Results: Last 24 Hours Test 10/01/16 05:12 10/01/16 12:45 White Blood Count 15.09 K/uL 15.42 K/uL Red Blood Count 2.55 M/uL 2.71 M/uL Hemoglobin 7.4 g/dL 8.0 g/dL Hematocrit 23.3 % 24.9 % Mean Corpuscular Volume 91.4 fL 91.9 fL Mean Corpuscular Hemoglobin 29.0 pg 29.5 pg Mean Corpuscular Hemoglobin Concent 31.8 g/dl 32.1 g/dl Platelet Count 116 K/uL 118 K/uL Mean Platelet Volume 10.8 fL 10.5 fL Neutrophils (%) (Auto) 84.4 % Lymphocytes (%) (Auto) 5.6 % Monocytes (%) (Auto) 7.6 % Eosinophils (%) (Auto) 1.8 % Basophils (%) (Auto) 0.0 % Neutrophils # (Auto) 12.74 K/uL Lymphocytes # (Auto) 0.85 K/uL Monocytes # (Auto) 1.14 K/uL Eosinophils # (Auto) 0.27 K/uL Basophils # (Auto) 0.00 K/uL RDW Standard Deviation 57.2 fL 60.8 fL RDW Coefficient of Variation 20.7 % 21.4 % Immature Granulocyte % (Auto) 0.6 % Immature Granulocyte # (Auto) 0.09 K/uL Toxic Vacuolation 1+ Polychromasia 1+ Basophilic Stippling 1+ Anisocytosis PRESENT Sodium Level 136 mmol/L 135 mmol/L Potassium Level 3.5 mmol/L 3.7 mmol/L Chloride Level 103 mmol/L 100 mmol/L Carbon Dioxide Level 27 mmol/L 27 mmol/L Anion Gap 6.0 mmol/L 8.0 mmol/L Blood Urea Nitrogen 13 mg/dl 17 mg/dl Creatinine 1.30 mg/dl 1.70 mg/dl Est Creatinine Clear Calc Drug Dose 47.5 ml/min 36.1 ml/min Estimated GFR () 52.4 37.9 Estimated GFR (Non- 45.2 32.7 BUN/Creatinine Ratio 9.8 9.7 Random Glucose 99 mg/dl 104 mg/dl Lactic Acid Level 1.1 mmol/L Calcium Level 8.9 mg/dl 9.2 mg/dl Phosphorus Level 2.2 mg/dl 2.8 mg/dl Magnesium Level 1.9 mg/dl 2.1 mg/dl Total Bilirubin 7.7 mg/dl 8.9 mg/dl Aspartate Amino Transf (AST/SGOT) 69 U/L 68 U/L Alanine Aminotransferase (ALT/SGPT) 52 U/L 50 U/L Alkaline Phosphatase 389 U/L 417 U/L Total Protein 4.8 gm/dl 5.3 gm/dl Albumin 2.6 gm/dl 2.8 gm/dl Globulin 2.2 gm/dl 2.5 gm/dl Albumin/Globulin Ratio 1.2 1.1 Absolute Reticulocyte Count 0.20 10^6/uL Percent Reticulocyte Count 7.5 % Prothrombin Time 12.9 SECONDS Prothromb Time International Ratio 1.2 Direct Bilirubin 6.7 mg/dl Resident Tracking Resident Involvement: Resident Care Provided Care Provided: Adult [facility] Medicine
--- NOTE | 2016-10-01 17:04 | Nephrology Progress Note ---
Nephrology Progress Note Date of Service: Oct 01, 2016. Subjective seen on rounds this am 1000; she had about 2L UF yesterday which was day 4 of this; c/o "butt pain;" today less confused Objective Date Time Temp Pulse Resp B/P (MAP) Pulse Ox O2 Delivery O2 Flow Rate FiO2 10/01/16 12:18 37.0 97 20 131/91 (104) 95 Room Air 10/01/16 10:29 92 15 138/50 (79) 93 Room Air 10/01/16 08:00 Room Air 10/01/16 08:00 36.9 100 18 150/83 (105) 95 Room Air 10/01/16 06:00 100 18 117/68 (84) 93 Room Air 10/01/16 04:00 36.8 93 20 135/59 (84) 95 Room Air 10/01/16 04:00 Room Air 10/01/16 02:00 95 18 113/42 (65) 93 Room Air 10/01/16 00:01 36.8 90 18 103/52 (69) 94 Room Air 09/30/16 23:59 Room Air 09/30/16 22:00 97 18 106/45 (65) 96 Room Air 09/30/16 20:00 Room Air 09/30/16 19:57 36.5 98 18 132/64 (86) 95 Room Air 09/30/16 18:00 94 20 97 Room Air Physical Exam: General-on ra, psychomotor delay, tired Eyes-+scleral icterus ENT-dry mm Neck-supple Lungs-improved air entry BL Heart-rrr Abdomen-bs+/soft; no perez Extremities-trace - 1+ dependent and scant peripheral edema; R arm in sling Neuro-oriented to self and place, fluent/appropriate though delayed speech Current Inpatient Medications Medications (Trade) Dose Ordered Sig/Michael Route Start Time Stop Time Status Last Admin Dose Admin Miconazole Nitrate (Desenex Powder) 1 appln BID EXT 09/17/16 21:00 10/17/16 20:59 09/27/16 21:00 1 APPLN Midodrine (Proamatine Tab) 5 mg TID@0800,1200,1800 PO 09/19/16 18:00 10/19/16 17:59 10/01/16 12:27 5 MG Levalbuterol (Xopenex 0.63 Mg/ 3 Ml Neb) 0.63 mg Q6H PRN INH 09/20/16 08:30 10/20/16 08:29 Fentanyl Citrate (Fentanyl Inj) 50 mcg Q1H PRN IV 09/20/16 21:45 10/04/16 21:44 Future Hold 09/21/16 04:14 50 MCG Rifaximin (Xifaxan Tab) 550 mg BID PO 09/22/16 21:00 10/22/16 20:59 10/01/16 07:21 550 MG Phytonadione (Mephyton Tab) 5 mg DAILY PO 09/24/16 10:30 10/24/16 10:29 10/01/16 07:21 5 MG Multivitamins (Multivitamin Tab) 1 tab QAM PO 09/25/16 09:00 10/25/16 08:59 10/01/16 07:22 1 TAB Heparin Sodium (Porcine) (Heparin 10 Unit/ ml 5 ml Flush) 5 ml PRN PRN FLUSH 09/25/16 02:00 10/25/16 01:59 Metoclopramide HCl (Reglan Inj) 5 mg Q6H PRN IV 09/27/16 12:45 10/25/16 12:44 10/01/16 07:40 5 MG Prednisone (PredniSONE TAB) 5 mg DAILY PO 09/28/16 09:00 10/28/16 08:59 10/01/16 07:20 5 MG Enteral Nutritional Formula (Boost) 1 can BIDM PO 09/28/16 07:15 10/28/16 07:14 09/30/16 08:45 1 CAN Ursodiol (Actigall Cap) 600 mg BID PO 09/28/16 21:00 10/28/16 20:59 10/01/16 07:21 600 MG Pantoprazole Sodium (Protonix Tab) 40 mg QAM PO 09/29/16 09:00 10/29/16 08:59 10/01/16 07:20 40 MG Vancomycin HCl (Consult) 1 ea UD PRN N/A 09/29/16 08:45 10/29/16 08:44 Imipenem/ Cilastatin Sodium (Consult) 1 ea UD N/A 09/29/16 09:19 10/29/16 09:18 Imipenem/ Cilastatin Sodium 500 mg/Dextrose 110 ml @ 100 mls/hr Q12H IV 09/30/16 04:00 10/10/16 03:59 10/01/16 04:28 100 MLS/HR Fentanyl Citrate (Fentanyl Inj) 25 mcg Q6 PRN IV 09/29/16 16:00 10/30/16 15:59 10/01/16 14:13 25 MCG Albumin Human (Albumin 25%) 12.5 gm 0800,0930 IV 10/01/16 08:00 10/01/16 19:00 Epoetin Ken 11355 units/ Syringe 0.6 ml @ 1 mls/min TODAY@0800 IV. 10/01/16 08:00 10/01/16 19:00 Last 24 Hours Test 10/01/16 05:12 10/01/16 12:45 10/01/16 16:46 White Blood Count 15.09 K/uL 15.42 K/uL Red Blood Count 2.55 M/uL 2.71 M/uL Hemoglobin 7.4 g/dL 8.0 g/dL Hematocrit 23.3 % 24.9 % Mean Corpuscular Volume 91.4 fL 91.9 fL Mean Corpuscular Hemoglobin 29.0 pg 29.5 pg Mean Corpuscular Hemoglobin Concent 31.8 g/dl 32.1 g/dl Platelet Count 116 K/uL 118 K/uL Mean Platelet Volume 10.8 fL 10.5 fL Neutrophils (%) (Auto) 84.4 % Lymphocytes (%) (Auto) 5.6 % Monocytes (%) (Auto) 7.6 % Eosinophils (%) (Auto) 1.8 % Basophils (%) (Auto) 0.0 % Neutrophils # (Auto) 12.74 K/uL Lymphocytes # (Auto) 0.85 K/uL Monocytes # (Auto) 1.14 K/uL Eosinophils # (Auto) 0.27 K/uL Basophils # (Auto) 0.00 K/uL RDW Standard Deviation 57.2 fL 60.8 fL RDW Coefficient of Variation 20.7 % 21.4 % Immature Granulocyte % (Auto) 0.6 % Immature Granulocyte # (Auto) 0.09 K/uL Toxic Vacuolation 1+ Polychromasia 1+ Basophilic Stippling 1+ Anisocytosis PRESENT Sodium Level 136 mmol/L 135 mmol/L Potassium Level 3.5 mmol/L 3.7 mmol/L Chloride Level 103 mmol/L 100 mmol/L Carbon Dioxide Level 27 mmol/L 27 mmol/L Anion Gap 6.0 mmol/L 8.0 mmol/L Blood Urea Nitrogen 13 mg/dl 17 mg/dl Creatinine 1.30 mg/dl 1.70 mg/dl Est Creatinine Clear Calc Drug Dose 47.5 ml/min 36.1 ml/min Estimated GFR () 52.4 37.9 Estimated GFR (Non- 45.2 32.7 BUN/Creatinine Ratio 9.8 9.7 Random Glucose 99 mg/dl 104 mg/dl Lactic Acid Level 1.1 mmol/L Calcium Level 8.9 mg/dl 9.2 mg/dl Phosphorus Level 2.2 mg/dl 2.8 mg/dl Magnesium Level 1.9 mg/dl 2.1 mg/dl Total Bilirubin 7.7 mg/dl 8.9 mg/dl Aspartate Amino Transf (AST/SGOT) 69 U/L 68 U/L Alanine Aminotransferase (ALT/SGPT) 52 U/L 50 U/L Alkaline Phosphatase 389 U/L 417 U/L Total Protein 4.8 gm/dl 5.3 gm/dl Albumin 2.6 gm/dl 2.8 gm/dl Globulin 2.2 gm/dl 2.5 gm/dl Albumin/Globulin Ratio 1.2 1.1 Peripheral Blood Smear Path Consult Absolute Reticulocyte Count 0.20 10^6/uL Percent Reticulocyte Count 7.5 % Prothrombin Time 12.9 SECONDS Prothromb Time International Ratio 1.2 Direct Bilirubin 6.7 mg/dl Lactate Dehydrogenase 360 U/L Bedside Glucose 121 mg/dl Date/Time Source Procedure Growth Status 10/01/16 12:45 Blood Parasitology Test - Preliminary Resulted Assessment & Plan 60 yo female with biliary cirrhosis with anuric ileana/atn vs HRS who required intubation, extubated 09/23. on daily dialysis 09/20-09/25; 09/27-. -will rest pt today given improved volume status -eval for probable dialysis in AM; then goal is tentatively next HD 10/04 -prognosis for renal recovery to where she would not need dialysis or even to do /feel well as outpt dialysis patient is boor >> she needs albumin in patient to maintain bp and near daily dialysis to maintain semi acceptable volume status -acute on chronic anemia >> cont epo on hd Appreciate consult; care coordinate with critical care attending.
[2016-10-01] MEDS ORDERED: OXYCODONE HCL IR 5 MG TAB (IMMEDIATE RELEASE) PO ONE (18:11)
[2016-10-01] MEDS: HYDROmorphone INJ 0.5 MG/0.5 ML SYR IV PRN (21:58)
--- NOTE | 2016-10-01 23:19 | Progress Note ---
Medicine Progress Note Date & Time of Visit: Oct 01, 2016 at 09:30 . Subjective Got out of bed last evening with assistance; strength seems to be gradually improving. No fever. No chest pain. No cough or shortness of breath. Appetite fair. No nausea or vomiting. Intermittent loose stools. . Objective Last 8 Hrs Date Time Temp Pulse Resp B/P (MAP) Pulse Ox O2 Delivery O2 Flow Rate FiO2 10/01/16 19:09 36.7 96 18 130/63 (85) 95 Room Air 10/01/16 16:35 36.9 94 20 123/62 (82) 95 10/01/16 16:05 95 Room Air Physical Exam: General- no acute distress Eyes- sclerae icteric Neck- right IJ central venous cath; no JVD Lungs- clear to auscultation Heart- RRR Abdomen- + BS, soft, nontender Extremities- 1-2+ pretibial edema; maricarmen right shoulder incision removed / humerus; right elbow protector Neuro- alert, oriented . Laboratory Results: Last 24 Hours Test 10/01/16 05:12 10/01/16 12:45 10/01/16 16:46 10/01/16 20:37 White Blood Count 15.09 K/uL 15.42 K/uL Red Blood Count 2.55 M/uL 2.71 M/uL Hemoglobin 7.4 g/dL 8.0 g/dL Hematocrit 23.3 % 24.9 % Mean Corpuscular Volume 91.4 fL 91.9 fL Mean Corpuscular Hemoglobin 29.0 pg 29.5 pg Mean Corpuscular Hemoglobin Concent 31.8 g/dl 32.1 g/dl Platelet Count 116 K/uL 118 K/uL Mean Platelet Volume 10.8 fL 10.5 fL Neutrophils (%) (Auto) 84.4 % Lymphocytes (%) (Auto) 5.6 % Monocytes (%) (Auto) 7.6 % Eosinophils (%) (Auto) 1.8 % Basophils (%) (Auto) 0.0 % Neutrophils # (Auto) 12.74 K/uL Lymphocytes # (Auto) 0.85 K/uL Monocytes # (Auto) 1.14 K/uL Eosinophils # (Auto) 0.27 K/uL Basophils # (Auto) 0.00 K/uL RDW Standard Deviation 57.2 fL 60.8 fL RDW Coefficient of Variation 20.7 % 21.4 % Immature Granulocyte % (Auto) 0.6 % Immature Granulocyte # (Auto) 0.09 K/uL Toxic Vacuolation 1+ Polychromasia 1+ Basophilic Stippling 1+ Anisocytosis PRESENT Sodium Level 136 mmol/L 135 mmol/L Potassium Level 3.5 mmol/L 3.7 mmol/L Chloride Level 103 mmol/L 100 mmol/L Carbon Dioxide Level 27 mmol/L 27 mmol/L Anion Gap 6.0 mmol/L 8.0 mmol/L Blood Urea Nitrogen 13 mg/dl 17 mg/dl Creatinine 1.30 mg/dl 1.70 mg/dl Est Creatinine Clear Calc Drug Dose 47.5 ml/min 36.1 ml/min Estimated GFR () 52.4 37.9 Estimated GFR (Non- 45.2 32.7 BUN/Creatinine Ratio 9.8 9.7 Random Glucose 99 mg/dl 104 mg/dl Lactic Acid Level 1.1 mmol/L Calcium Level 8.9 mg/dl 9.2 mg/dl Phosphorus Level 2.2 mg/dl 2.8 mg/dl Magnesium Level 1.9 mg/dl 2.1 mg/dl Total Bilirubin 7.7 mg/dl 8.9 mg/dl Aspartate Amino Transf (AST/SGOT) 69 U/L 68 U/L Alanine Aminotransferase (ALT/SGPT) 52 U/L 50 U/L Alkaline Phosphatase 389 U/L 417 U/L Total Protein 4.8 gm/dl 5.3 gm/dl Albumin 2.6 gm/dl 2.8 gm/dl Globulin 2.2 gm/dl 2.5 gm/dl Albumin/Globulin Ratio 1.2 1.1 Peripheral Blood Smear Path Consult Absolute Reticulocyte Count 0.20 10^6/uL Percent Reticulocyte Count 7.5 % Prothrombin Time 12.9 SECONDS Prothromb Time International Ratio 1.2 Direct Bilirubin 6.7 mg/dl Lactate Dehydrogenase 360 U/L Bedside Glucose 121 mg/dl 119 mg/dl Date/Time Source Procedure Growth Status 10/01/16 12:45 Blood Parasitology Test - Preliminary Resulted Assessment & Plan CARDIOVASCULAR Systolic blood pressures generally running in the 90s - low 100s. Continue midodrine. RESPIRATORY Experienced acute hypoxic respiratory failure 09/20/16 secondary to fluid overload from IV fluids and albumin; may have aspirated as well. Required intubation/mechanical ventilation. Pulmonary edema improved with dialysis. Extubated 09/24/16. Now oxygenating well on room air. GI Underlying biliary cirrhosis with portal hypertension. GI and nutrition consulted. Bilirubin today 8.9. Continue rifaximin. Restart obeticholic acid. Ongoing management per GI. Chronic kidney disease with acute kidney injury - ATN vs hepatorenal syndrome. Placement of hemodialysis catheter 09/27. Management per Nephrology. NEURO Experienced altered mental status secondary to multifactorial delirium. Head CT negative for acute event. Now alert and usually oriented 3. Continue rifaximin for hepatic encephalopathy. ID Received IV vancomycin and piperacillin/tazobactam for possible aspiration pneumonia. Receiving fluconazole for Melissa albicans noted in sputum and bronchial washings. Loose stools - negative for C. difficile 09/27. WBC elevated @ > 20,000 for several days. Procalcitonin elevated. Chest x-ray showed basilar densities, but clinically pt did not seem to have pneumonia. Consider biliary tract infection, SBP, colitis, line infection, other sources. Consider hemorrhage / hematoma (e.g., retroperitoneal bleed) as etiology of leukocytosis. CT chest / abdomen / pelvis did not show any apparent source of infection. ID consulted. WBC today 15,420. Continue broad spectrum antibiotics pending culture results. Check repeat C. difficile in light of persistent diarrhea. HEME Hemoglobin 9.5 on admission, fell as low as 5.6 on 09/29/16. No gross GI bleeding, but stools heme +. CT abdomen and pelvis did not show any apparent retroperitoneal or intra- abdominal bleed. Transfused with 2 units pRBC's. Hgb today 7.4. Hemolysis workup ordered. Hematology consulted. Transfuse as necessary to maintain Hgb > 7-8. Plts 86,000 09/28, 116,000 today. Heparin-PF4 AB screen negative. GENERAL DEBILITATION Increase activity as tolerated. VTE PROPHYLAXIS SQ heparin stopped 09/28 due to thrombocytopenia / anemia. SCD's. DISPOSITION To be determined. Anticipate need for skilled care or inpatient rehabilitation. . Current Inpatient Medications: Current Inpatient Medications Medications (Trade) Dose Ordered Sig/Michael Route Start Time Stop Time Status Last Admin Dose Admin Miconazole Nitrate (Desenex Powder) 1 appln BID EXT 09/17/16 21:00 10/17/16 20:59 10/01/16 20:46 1 APPLN Midodrine (Proamatine Tab) 5 mg TID@0800,1200,1800 PO 09/19/16 18:00 10/19/16 17:59 10/01/16 17:46 5 MG Levalbuterol (Xopenex 0.63 Mg/ 3 Ml Neb) 0.63 mg Q6H PRN INH 09/20/16 08:30 10/20/16 08:29 Fentanyl Citrate (Fentanyl Inj) 50 mcg Q1H PRN IV 09/20/16 21:45 10/04/16 21:44 Future Hold 09/21/16 04:14 50 MCG Rifaximin (Xifaxan Tab) 550 mg BID PO 09/22/16 21:00 10/22/16 20:59 10/01/16 20:46 550 MG Phytonadione (Mephyton Tab) 5 mg DAILY PO 09/24/16 10:30 10/24/16 10:29 10/01/16 07:21 5 MG Multivitamins (Multivitamin Tab) 1 tab QAM PO 09/25/16 09:00 10/25/16 08:59 10/01/16 07:22 1 TAB Heparin Sodium (Porcine) (Heparin 10 Unit/ ml 5 ml Flush) 5 ml PRN PRN FLUSH 09/25/16 02:00 10/25/16 01:59 Metoclopramide HCl (Reglan Inj) 5 mg Q6H PRN IV 09/27/16 12:45 10/25/16 12:44 10/01/16 07:40 5 MG Prednisone (PredniSONE TAB) 5 mg DAILY PO 09/28/16 09:00 10/28/16 08:59 10/01/16 07:20 5 MG Enteral Nutritional Formula (Boost) 1 can BIDM PO 09/28/16 07:15 10/28/16 07:14 09/30/16 08:45 1 CAN Ursodiol (Actigall Cap) 600 mg BID PO 09/28/16 21:00 10/28/16 20:59 10/01/16 20:46 600 MG Pantoprazole Sodium (Protonix Tab) 40 mg QAM PO 09/29/16 09:00 10/29/16 08:59 10/01/16 07:20 40 MG Vancomycin HCl (Consult) 1 ea UD PRN N/A 09/29/16 08:45 10/29/16 08:44 Imipenem/ Cilastatin Sodium (Consult) 1 ea UD N/A 09/29/16 09:19 10/29/16 09:18 Imipenem/ Cilastatin Sodium 500 mg/Dextrose 110 ml @ 100 mls/hr Q12H IV 09/30/16 04:00 10/10/16 03:59 10/01/16 17:45 100 MLS/HR Oxycodone HCl (Roxicodone Immediate Rel Tab) 5 mg Q8H PRN PO 10/01/16 18:15 10/15/16 18:14 Hydromorphone HCl (Dilaudid Inj) 0.25 mg Q4H PRN IV 10/01/16 18:15 10/15/16 18:14 10/01/16 21:58 0.25 MG
[2016-10-02] VITALS (32 sets, daily range): BP systolic 94–194; BP diastolic 43–95; PULSE 75–101; TEMP 36.5–37.1; O2SAT 91–95
[2016-10-02] MEDS: IMIPENEM/CILASTATIN IV 500 MG in DEXTROSE 5% 100ML 100 ML IV SCH ×2 (04:04→16:18)
[2016-10-02 05:32] LABS: HEMATOCRIT 22.3 % (37-47); MEAN CELL VOLUME 92.5 fL (80-100); MEAN CORPUSCULAR HEMOGLOBIN 31.1 pg (25-34); MEAN CORPUSCULAR HGB CONC 33.6 g/dl (32-36); MEAN PLATELET VOLUME 11.4 fL (7.4-10.4); PLATELET COUNT 114 K/uL (130-400); RED BLOOD COUNT 2.41 M/uL (4.2-5.4); WHITE BLOOD COUNT 12.78 K/uL (4.8-10.8)
[2016-10-02 05:47] LABS: BUN/CREATININE RATIO 11.3 (10-20); CALCIUM 9.2 mg/dl (8.5-10.1); MAGNESIUM 2.1 mg/dl (1.8-2.4); POTASSIUM 3.4 mmol/L (3.5-5.1)
[2016-10-02 05:50] LABS: PHOSPHORUS 3.7 mg/dl (2.5-4.9)
[2016-10-02 06:18] LABS: ANISOCYTOSIS PRESENT; BASO % 0.1 %; BASO ABS # 0.01 K/uL (0-0.2); COMPLETE YES; EOS % 2.6 %; IG% 0.5 %; LYMPH % 6.8 %; LYMPH ABS # 0.87 K/uL (1.2-3.4)
[2016-10-02] MEDS: BOOST VANILLA PO SCH ×4 (07:30→16:18)
[2016-10-02] MEDS ORDERED: EPOETIN ALFA 10,000 UNITS/ML VIAL IV. ONE (07:30)
[2016-10-02] MEDS: RIFAXIMIN TAB 550 MG TAB PO SCH ×2 (07:58→20:29)
[2016-10-02] MEDS: MIDODRINE 2.5 MG TAB PO SCH ×3 (07:58→17:27)
[2016-10-02] MEDS: PHYTONADIONE 5 MG TAB PO SCH (07:59)
[2016-10-02] MEDS: MULTIVITAMIN TAB PO SCH (07:59)
[2016-10-02] MEDS: MICONAZOLE NITRATE POWDER 43 GM EXT SCH ×2 (07:59→20:29)
[2016-10-02] MEDS: URSODIOL 300 MG CAP PO SCH ×2 (07:59→20:30)
[2016-10-02] MEDS ORDERED: EPOETIN ALFA INJ 12,000 UNITS in SYRINGE 0 ML IV. SCH (08:30)
[2016-10-02] MEDS: PANTOprazole SOD 40 MG TAB PO SCH (08:50)
[2016-10-02] MEDS: OXYCODONE HCL IR 5 MG TAB (IMMEDIATE RELEASE) PO PRN (10:48)
[2016-10-02] MEDS ORDERED: VANCOMYCIN INJ 1,000 MG in SODIUM CHLORIDE 0.9% 250ML 250 ML IV ONE (13:00)
--- NOTE | 2016-10-02 13:42 | Dialysis Progress Note ---
Nephrology Dialysis Note Date of Service: Oct 02, 2016. Subjective seen on rounds this am 1200; she rested yesterday and has more bp today; remains on RA; tired but not confused > we had a short conversation about my impression that she is likely to need dialysis longer term which naturally dismays her; shared also I am not sure how well she will do on this LT but that no urgent decisions required; pt still c/o "butt pain;" Objective Date Time Temp Pulse Resp B/P (MAP) Pulse Ox O2 Delivery O2 Flow Rate FiO2 10/02/16 12:30 94 99/51 10/02/16 12:15 91 94/55 10/02/16 12:00 96 95/57 10/02/16 11:50 Room Air 10/02/16 11:45 96 109/53 10/02/16 11:30 95 98/60 10/02/16 11:15 92 121/55 10/02/16 11:00 98 131/64 10/02/16 10:45 94 134/62 10/02/16 10:37 36.5 89 106/55 (72) 10/02/16 10:30 86 126/57 10/02/16 10:15 89 99/50 10/02/16 10:00 77 117/55 10/02/16 09:58 75 103/43 10/02/16 08:00 Room Air 10/02/16 07:46 36.9 92 20 147/75 (99) 92 Room Air 10/02/16 04:06 36.8 98 18 142/63 (89) 95 Room Air 10/02/16 04:00 95 Room Air 10/02/16 00:14 36.7 95 18 120/58 (78) 94 Room Air 10/01/16 23:59 95 Room Air 10/01/16 20:00 95 Room Air 10/01/16 19:09 36.7 96 18 130/63 (85) 95 Room Air 10/01/16 16:35 36.9 94 20 123/62 (82) 95 10/01/16 16:05 95 Room Air Physical Exam: General-on ra, slight psychomotor delay, tired Eyes-+scleral icterus ENT-dry mm Neck-supple Lungs-improved air entry BL Heart-rrr Abdomen-bs+/soft; no perez Extremities-trace - trace dependent and scant peripheral edema; R arm in sling Neuro-oriented to self and place, fluent/appropriate though delayed speech Current Inpatient Medications Medications (Trade) Dose Ordered Sig/Michael Route Start Time Stop Time Status Last Admin Dose Admin Miconazole Nitrate (Desenex Powder) 1 appln BID EXT 09/17/16 21:00 10/17/16 20:59 10/02/16 07:59 1 APPLN Midodrine (Proamatine Tab) 5 mg TID@0800,1200,1800 PO 09/19/16 18:00 10/19/16 17:59 10/02/16 07:58 5 MG Levalbuterol (Xopenex 0.63 Mg/ 3 Ml Neb) 0.63 mg Q6H PRN INH 09/20/16 08:30 10/20/16 08:29 Fentanyl Citrate (Fentanyl Inj) 50 mcg Q1H PRN IV 09/20/16 21:45 10/04/16 21:44 Future Hold 09/21/16 04:14 50 MCG Rifaximin (Xifaxan Tab) 550 mg BID PO 09/22/16 21:00 10/22/16 20:59 10/02/16 07:58 550 MG Phytonadione (Mephyton Tab) 5 mg DAILY PO 09/24/16 10:30 10/24/16 10:29 10/02/16 07:59 5 MG Multivitamins (Multivitamin Tab) 1 tab QAM PO 09/25/16 09:00 10/25/16 08:59 10/02/16 07:59 1 TAB Heparin Sodium (Porcine) (Heparin 10 Unit/ ml 5 ml Flush) 5 ml PRN PRN FLUSH 09/25/16 02:00 10/25/16 01:59 Metoclopramide HCl (Reglan Inj) 5 mg Q6H PRN IV 09/27/16 12:45 10/25/16 12:44 10/01/16 07:40 5 MG Prednisone (PredniSONE TAB) 5 mg DAILY PO 09/28/16 09:00 10/28/16 08:59 10/02/16 07:59 5 MG Enteral Nutritional Formula (Boost) 1 can BIDM PO 09/28/16 07:15 10/28/16 07:14 09/30/16 08:45 1 CAN Ursodiol (Actigall Cap) 600 mg BID PO 09/28/16 21:00 10/28/16 20:59 10/02/16 07:59 600 MG Pantoprazole Sodium (Protonix Tab) 40 mg QAM PO 09/29/16 09:00 10/29/16 08:59 10/02/16 08:50 40 MG Vancomycin HCl (Consult) 1 ea UD PRN N/A 09/29/16 08:45 10/29/16 08:44 Imipenem/ Cilastatin Sodium (Consult) 1 ea UD N/A 09/29/16 09:19 10/29/16 09:18 Imipenem/ Cilastatin Sodium 500 mg/Dextrose 110 ml @ 100 mls/hr Q12H IV 09/30/16 04:00 10/10/16 03:59 10/02/16 04:04 100 MLS/HR Oxycodone HCl (Roxicodone Immediate Rel Tab) 5 mg Q8H PRN PO 10/01/16 18:15 10/15/16 18:14 10/02/16 10:48 5 MG Hydromorphone HCl (Dilaudid Inj) 0.25 mg Q4H PRN IV 10/01/16 18:15 10/15/16 18:14 10/01/16 21:58 0.25 MG Non-Formulary Medication (Obeticholic Acid (Ocaliva)) 5 mg Sa@0900 PO 10/02/16 14:00 11/01/16 13:59 Epoetin Ken 28444 units/ Syringe 0.6 ml @ 1 mls/min TODAY IV. 10/02/16 08:30 10/02/16 15:00 Vancomycin HCl 1000 mg/Sodium Chloride 270 ml @ 125 mls/hr AFTER HEMODIALYSIS ONCE IV 10/02/16 13:00 10/02/16 15:09 Last 24 Hours Test 10/01/16 16:46 10/01/16 20:37 10/02/16 05:15 Bedside Glucose 121 mg/dl 119 mg/dl White Blood Count 12.78 K/uL Red Blood Count 2.41 M/uL Hemoglobin 7.5 g/dL Hematocrit 22.3 % Mean Corpuscular Volume 92.5 fL Mean Corpuscular Hemoglobin 31.1 pg Mean Corpuscular Hemoglobin Concent 33.6 g/dl Platelet Count 114 K/uL Mean Platelet Volume 11.4 fL Neutrophils (%) (Auto) 81.0 % Lymphocytes (%) (Auto) 6.8 % Monocytes (%) (Auto) 9.0 % Eosinophils (%) (Auto) 2.6 % Basophils (%) (Auto) 0.1 % Neutrophils # (Auto) 10.36 K/uL Lymphocytes # (Auto) 0.87 K/uL Monocytes # (Auto) 1.15 K/uL Eosinophils # (Auto) 0.33 K/uL Basophils # (Auto) 0.01 K/uL RDW Standard Deviation 67.2 fL RDW Coefficient of Variation 21.5 % Immature Granulocyte % (Auto) 0.5 % Immature Granulocyte # (Auto) 0.06 K/uL Basophilic Stippling 2+ Anisocytosis PRESENT Sodium Level 135 mmol/L Potassium Level 3.4 mmol/L Chloride Level 101 mmol/L Carbon Dioxide Level 26 mmol/L Anion Gap 8.0 mmol/L Blood Urea Nitrogen 23 mg/dl Creatinine 2.00 mg/dl Est Creatinine Clear Calc Drug Dose 30.7 ml/min Estimated GFR () 31.1 Estimated GFR (Non- 26.8 BUN/Creatinine Ratio 11.3 Random Glucose 94 mg/dl Lactic Acid Level 0.8 mmol/L Calcium Level 9.2 mg/dl Phosphorus Level 3.7 mg/dl Magnesium Level 2.1 mg/dl Total Bilirubin 8.0 mg/dl Direct Bilirubin 6.0 mg/dl Aspartate Amino Transf (AST/SGOT) 55 U/L Alanine Aminotransferase (ALT/SGPT) 38 U/L Alkaline Phosphatase 382 U/L Total Protein 4.7 gm/dl Albumin 2.4 gm/dl Globulin 2.3 gm/dl Albumin/Globulin Ratio 1.0 Random Vancomycin Level 12.5 mcg/ml Assessment & Plan 60 yo female with biliary cirrhosis with anuric ileana/atn vs HRS who required intubation, extubated 09/23. on daily dialysis 09/20-09/25; 09/27-. then HD 10/02 volume status improving, bp ok -goal is tentatively next HD 10/04 -prognosis for renal recovery to where she would not need dialysis or even to do /feel well as outpt dialysis patient is poor >> pt aware, thinking about this; our immediate goal is thrice weekly dialysis not daily -acute on chronic anemia >> cont epo on hd Appreciate consult
[2016-10-02] MEDS: OBETICHOLIC ACID 5 MG PO SCH (13:47)
[2016-10-02] MEDS: HYDROmorphone INJ 0.5 MG/0.5 ML SYR IV PRN (13:59)
--- NOTE | 2016-10-02 14:28 | Progress Note ---
Progress Note Date of Service Oct 02, 2016. Progress Note Asked to see pt with PBC with recent decompensation after orthopedic surgery, characterized by renal failure and encepahlopathy. I am asked to see her due to rising bilirubin. Her bili, which was around 3-4 earlier this admission, has risen to around 8 over the past 3 days, accompanied by a rise in her alk phos from a baseline of around 200 to around 400. Her INR has been stable; she receives vit K daily. She denies abdominal pain. Her appetite is unchanged - she has a fair appetite. She denies pruritus. She is maintained on leah; she is on ocaliva as an outpt - this was held until yesterday. Her hgb has been stable or slowly declining, and a recent CT did not show any evidence of r/p bleed. She was xfused 2 U PRBC on 09/29. Upon review of her medications, she appears to have begun Primaxin recently. No other recent med changes. Her BP is mildly labile, with systolic varying from 90's to 130's. She had a systolic BP of 60 on 09/30. Date Time Temp Pulse Resp B/P (MAP) Pulse Ox O2 Delivery O2 Flow Rate FiO2 10/02/16 13:29 36.6 95 121/56 (77) 10/02/16 13:15 93 194/95 10/02/16 13:00 94 106/57 10/02/16 12:45 92 98/52 10/02/16 12:30 94 99/51 10/02/16 12:15 91 94/55 10/02/16 12:00 96 95/57 10/02/16 11:50 Room Air 10/02/16 11:45 96 109/53 10/02/16 11:30 95 98/60 10/02/16 11:15 92 121/55 10/02/16 11:00 98 131/64 10/02/16 10:45 94 134/62 10/02/16 10:37 36.5 89 106/55 (72) 10/02/16 10:30 86 126/57 10/02/16 10:15 89 99/50 10/02/16 10:00 77 117/55 10/02/16 09:58 75 103/43 10/02/16 08:00 Room Air 10/02/16 07:46 36.9 92 20 147/75 (99) 92 Room Air 10/02/16 04:06 36.8 98 18 142/63 (89) 95 Room Air 10/02/16 04:00 95 Room Air 10/02/16 00:14 36.7 95 18 120/58 (78) 94 Room Air 10/01/16 23:59 95 Room Air 10/01/16 20:00 95 Room Air 10/01/16 19:09 36.7 96 18 130/63 (85) 95 Room Air 10/01/16 16:35 36.9 94 20 123/62 (82) 95 10/01/16 16:05 95 Room Air Appears comfortable and in NAD. She is alert and conversant. Her R arm is in a sling. Her eyes are icteric. She has no thrush. She does not appear to have increased JVP or hepatjugular reflux Her abd has mult bruises, including a large, tender bruise spanning her lower abdomen. She does not have specific tenderness in RUQ. Her skin is jaundiced, and multiple ecchymoses on lower extrem. No lower extrem edema Labs reviewed A/P: Rising bili - I suspect her rising bili has a benign etiology - related to ecchymoses, recent blood transfusion, variations in BP affecting liver perfusion. It is possible that her brief period off Ocaliva may result in rising bilirubin as well. Would continue to monitor daily for now. - Drug induced liver injury is always a possibility, although there are no obvious culprit drugs. Primaxin is rarely associated with cholestatic liver injury, although (per NIH database) there is typically a delay in onset of 1-2 weeks prior to onset of cholestasis. If her bilirubin continues to worsen, would consider switching to another abx. - Will request liver uls to rule out portal vein thrombosis and biliary pathology, although these seem like less likely causes. - Will d/c vit K supplementation - her INR has normalized, and this may increase her risk of thrombosis. Cont xifaxan.
--- NOTE | 2016-10-02 15:17 | Medical Consult ---
Consultation Date of Consultation: Oct 02, 2016. Attending Physician: Shad Guerra MD History of Present Illness Hematology consult: Evaluation and management of anemia. Date of consultation: 10/02/2016. Consult requested by Dr. Guy. HPI: 60-year-old female, a known case of primary biliary cirrhosis, on prednisone therapy for that, who underwent right total shoulder arthroplasty on 09/18/2016, postoperative course was complicated by hepatorenal syndrome, hepatic encephalopathy, requiring dialysis. CBCD done before the surgery showed hemoglobin level around 9 g/dL, platelet count around 150 1000-200,000, she had a normal white blood cell count earlier in August,, now since the surgery it has remained on the higher side between 15,000-30,000. On 09/28/2016, white blood cell count increased significantly to around 43,000 three thousand, on the following day hemoglobin level dropped down to around 5.6 g/dL, platelet count dropped down to around 116,000 hundred sixteen thousand on that day. She received 2 units of PRBC, now white blood cell count has gradually come down to around 12,000 -15,000, hemoglobin level is around 7.5-8 g/dL. Platelet count has remained stable around 115,000. She did not have any bleeding from any site other than some increasing ecchymosis, she denies any blood in the stool but she says that she has seen black color stool intermittently, stool for occult blood testing is positive. -CT scan of the abdomen pelvis done on 09/29/2016 showed no retroperitoneal hematoma, cirrhosis of liver with TIPS shunt noted. Spleen in the normal size reported. Compression deformities noted in the L3 and T11 vertebral bodies. She had a slightly elevated PT/INR, received vitamin K therapy, now PT has come down to around 12.9 second (10/01/2016). I saw her at bedside, she is sitting comfortably in the bed, feeling some tiredness, she says the leg edema has improved, denies any increasing abdominal discomfort, she denies any bleeding from any sites, no fever at present, diarrhea present, black color stool present, REVIEW OF SYSTEMS: GENERAL: Her weight has been fluctuating, earlier she gained significant weight with volume overload, with the dialysis it has come down, feeling weak and tired, no fever or chills.. SKIN: No skin rash, bruising involving the chest and upper extremities present HEAD: No new headache, no dizziness. EYES: No recent change in the vision, no diplopia, EARS: No earache no tinnitus, NOSE: No epistaxis, No nasal discharge or stuffiness, MOUTH: No sores, no dysphagia, no hoarseness of voice, NECK: No lumps, No swelling in thyroid area. No stiffness. PULMONARY: No cough, shortness of breath on minimal exertion present, no hemoptysis, no chest pain, No wheezing. CARDIOVASCULAR: No anginal chest pain, no PND, no orthopnea. No palpitation, no leg edema. No syncope. GASTROINTESTINAL: No abdominal pain, no nausea or vomiting. Diarrhea present, No constipation. No abdominal distention. UROLOGIC: No burning urination. No hematuria. MUSCULOSKELETAL: Right shoulder discomfort present, HEMATOLOGIC: Mild anemia noted with hemoglobin around 8 g/dL before the recent right shoulder surgery, no bleeding disorder, No bruising. NEUROLOGIC: No seizures, no focal weakness, no speech difficulty, some memory disturbances present, sometimes falls asleep. Past medical and surgical history: Primary biliary cirrhosis, chronic kidney disease, history of history of the varices, atrial tachycardia, osteoarthritis, portal hypertension, S/P TIPS. She had multiple shoulder surgeries in the past. Social history: No history of smoking in the past, no ETOH abuse. Medications: Please review her chart for detailed list of medications. -she is on Procrit therapy under the guidance of Nephrology. On exam: - Alert and oriented x3, well built woman, not in any distress. - HEENT: Icterus present, pallor present, Throat: Normal. - Neck: No palpable cervical lymphadenopathy. - Chest: clear to auscultation. - Abdomen: soft, nontender, no hepatomegaly, no splenomegaly. - No focal neuro deficit. - Extremities: no finger clubbing, no leg edema. Lab: - direct Sonu test--> negative. -peripheral smear reviewed by the pathologist, findings consistent with the chronic liver disease. No schistocytes, no immature WBCs noted. -WBC 29715 her, H&H of 7.5/22, Platelet count of 114,000, MCV 92 (10/02/2016) -total bilirubin level 8.0, direct bilirubin 6.0, AST 55, ALT 38, alkaline phosphatase 382, -LDH--> 360 (10/01/2016). -haptoglobin--> pending. -Absolute reticulocyte count--> 0.2 ASSESSMENT AND PLAN: 60-year-old female, who has primary biliary cirrhosis, evidence of portal hypertension, esophageal varices, S/P TIPS , underwent right shoulder surgery, postoperative course complicated by acute on chronic renal failure, volume overload, hepatic encephalopathy, requiring dialysis support, gradual improvement of her clinical condition noted, has baseline hemoglobin around 8-9 g/dL before the surgery, recently hemoglobin level dropped down to around 5.6 g/dL on 09/29/2016, stool for occult blood testing positive, CT scan of the abdomen and pelvis showed no evidence of retroperitoneal hematoma, she received 2 units of PRBC, direct Sonu test negative, elevated LDH level noted , reticulocytosis noted suggest bone marrow is appropriately responding,. She is receiving Procrit therapy under the guidance of Nephrology. She may have some mild hemolysis with the worsening liver function test, abnormal kidney function test with recent hemodialysis but I am not expecting significant drop because of that. Most likely she had GI blood loss, she should receive blood transfusion as needed to maintain hemoglobin level around 7 -8 g/dL. Would consider for B12, Folic acid, Ferritin, iron profile and if she has low level, she will require correction of that. Thanks for the consultation. Dr. Robby Carson Hem/Onc (This note was completed using the dictation program Fluency Direct. As such, there may be misspellings, word substitutions, or other variations that should not change the essence of the clinical content of this encounter note. If there is need for further clarification, please direct questions to the provider listed above.) Past Medical/Surgical History Medical Problems: (1) Displaced fracture of proximal end of right humerus Status: Acute Surgical Problems: (1) Status post catheter ablation for SVT Status: Chronic Family History Asthma MOTHER Diabetes mellitus FATHER Heart disease FATHER MOTHER Social History Smoking Status: Never Smoker Alcohol Use: none Drug Use: none Occupation Status: disabled Allergies Coded Allergies: Budesonide (Verified Allergy, Intermediate, FACIAL SWELLING, 09/17/16) PER RECORDS Mycophenolate (Verified Allergy, Intermediate, FACIAL SWELLING, 09/17/16) PER RECORDS Latex (Verified Allergy, Mild, RASH-CONTACT, 09/17/16) Acetaminophen (Verified Adverse Reaction, Unknown, "LIVER DISEASE", ) PER RECORDS Pseudoephedrine (Verified Adverse Reaction, Unknown, TACHYCARDIA, 09/17/16) PER RECORDS Current Inpatient Medications Current Inpatient Medications Medications (Trade) Dose Ordered Sig/Michael Route Start Time Stop Time Status Last Admin Dose Admin Miconazole Nitrate (Desenex Powder) 1 appln BID EXT 09/17/16 21:00 10/17/16 20:59 10/02/16 07:59 1 APPLN Midodrine (Proamatine Tab) 5 mg TID@0800,1200,1800 PO 09/19/16 18:00 10/19/16 17:59 10/02/16 13:47 5 MG Levalbuterol (Xopenex 0.63 Mg/ 3 Ml Neb) 0.63 mg Q6H PRN INH 09/20/16 08:30 10/20/16 08:29 Fentanyl Citrate (Fentanyl Inj) 50 mcg Q1H PRN IV 09/20/16 21:45 10/04/16 21:44 Future Hold 09/21/16 04:14 50 MCG Rifaximin (Xifaxan Tab) 550 mg BID PO 09/22/16 21:00 10/22/16 20:59 10/02/16 07:58 550 MG Multivitamins (Multivitamin Tab) 1 tab QAM PO 09/25/16 09:00 10/25/16 08:59 10/02/16 07:59 1 TAB Heparin Sodium (Porcine) (Heparin 10 Unit/ ml 5 ml Flush) 5 ml PRN PRN FLUSH 09/25/16 02:00 10/25/16 01:59 Metoclopramide HCl (Reglan Inj) 5 mg Q6H PRN IV 09/27/16 12:45 10/25/16 12:44 10/01/16 07:40 5 MG Prednisone (PredniSONE TAB) 5 mg DAILY PO 09/28/16 09:00 10/28/16 08:59 10/02/16 07:59 5 MG Enteral Nutritional Formula (Boost) 1 can BIDM PO 09/28/16 07:15 10/28/16 07:14 09/30/16 08:45 1 CAN Ursodiol (Actigall Cap) 600 mg BID PO 09/28/16 21:00 10/28/16 20:59 10/02/16 07:59 600 MG Pantoprazole Sodium (Protonix Tab) 40 mg QAM PO 09/29/16 09:00 10/29/16 08:59 10/02/16 08:50 40 MG Vancomycin HCl (Consult) 1 ea UD PRN N/A 09/29/16 08:45 10/29/16 08:44 Imipenem/ Cilastatin Sodium (Consult) 1 ea UD N/A 09/29/16 09:19 10/29/16 09:18 Imipenem/ Cilastatin Sodium 500 mg/Dextrose 110 ml @ 100 mls/hr Q12H IV 09/30/16 04:00 10/10/16 03:59 10/02/16 04:04 100 MLS/HR Oxycodone HCl (Roxicodone Immediate Rel Tab) 5 mg Q8H PRN PO 10/01/16 18:15 10/15/16 18:14 10/02/16 10:48 5 MG Hydromorphone HCl (Dilaudid Inj) 0.25 mg Q4H PRN IV 10/01/16 18:15 10/15/16 18:14 10/02/16 13:59 0.25 MG Non-Formulary Medication (Obeticholic Acid (Ocaliva)) 5 mg Sa@0900 PO 10/02/16 14:00 11/01/16 13:59 10/02/16 13:47 5 MG Physical Exam Date Time Temp Pulse Resp B/P (MAP) Pulse Ox O2 Delivery O2 Flow Rate FiO2 10/02/16 13:29 36.6 95 121/56 (77) 10/02/16 13:15 93 194/95 10/02/16 13:00 94 106/57 10/02/16 12:45 92 98/52 10/02/16 12:30 94 99/51 10/02/16 12:15 91 94/55 10/02/16 12:00 96 95/57 10/02/16 11:50 Room Air 10/02/16 11:45 96 109/53 10/02/16 11:30 95 98/60 10/02/16 11:15 92 121/55 10/02/16 11:00 98 131/64 10/02/16 10:45 94 134/62 10/02/16 10:37 36.5 89 106/55 (72) 10/02/16 10:30 86 126/57 10/02/16 10:15 89 99/50 10/02/16 10:00 77 117/55 10/02/16 09:58 75 103/43 10/02/16 08:00 Room Air 10/02/16 07:46 36.9 92 20 147/75 (99) 92 Room Air 10/02/16 04:06 36.8 98 18 142/63 (89) 95 Room Air 10/02/16 04:00 95 Room Air 10/02/16 00:14 36.7 95 18 120/58 (78) 94 Room Air 10/01/16 23:59 95 Room Air 10/01/16 20:00 95 Room Air 10/01/16 19:09 36.7 96 18 130/63 (85) 95 Room Air 10/01/16 16:35 36.9 94 20 123/62 (82) 95 10/01/16 16:05 95 Room Air Laboratory Results Last 24 Hours Test 10/01/16 16:46 10/01/16 20:37 10/02/16 05:15 Bedside Glucose 121 mg/dl 119 mg/dl White Blood Count 12.78 K/uL Red Blood Count 2.41 M/uL Hemoglobin 7.5 g/dL Hematocrit 22.3 % Mean Corpuscular Volume 92.5 fL Mean Corpuscular Hemoglobin 31.1 pg Mean Corpuscular Hemoglobin Concent 33.6 g/dl Platelet Count 114 K/uL Mean Platelet Volume 11.4 fL Neutrophils (%) (Auto) 81.0 % Lymphocytes (%) (Auto) 6.8 % Monocytes (%) (Auto) 9.0 % Eosinophils (%) (Auto) 2.6 % Basophils (%) (Auto) 0.1 % Neutrophils # (Auto) 10.36 K/uL Lymphocytes # (Auto) 0.87 K/uL Monocytes # (Auto) 1.15 K/uL Eosinophils # (Auto) 0.33 K/uL Basophils # (Auto) 0.01 K/uL RDW Standard Deviation 67.2 fL RDW Coefficient of Variation 21.5 % Immature Granulocyte % (Auto) 0.5 % Immature Granulocyte # (Auto) 0.06 K/uL Basophilic Stippling 2+ Anisocytosis PRESENT Sodium Level 135 mmol/L Potassium Level 3.4 mmol/L Chloride Level 101 mmol/L Carbon Dioxide Level 26 mmol/L Anion Gap 8.0 mmol/L Blood Urea Nitrogen 23 mg/dl Creatinine 2.00 mg/dl Est Creatinine Clear Calc Drug Dose 30.7 ml/min Estimated GFR () 31.1 Estimated GFR (Non- 26.8 BUN/Creatinine Ratio 11.3 Random Glucose 94 mg/dl Lactic Acid Level 0.8 mmol/L Calcium Level 9.2 mg/dl Phosphorus Level 3.7 mg/dl Magnesium Level 2.1 mg/dl Total Bilirubin 8.0 mg/dl Direct Bilirubin 6.0 mg/dl Aspartate Amino Transf (AST/SGOT) 55 U/L Alanine Aminotransferase (ALT/SGPT) 38 U/L Alkaline Phosphatase 382 U/L Total Protein 4.7 gm/dl Albumin 2.4 gm/dl Globulin 2.3 gm/dl Albumin/Globulin Ratio 1.0 Random Vancomycin Level 12.5 mcg/ml
[2016-10-02 16:58] LABS: FERRITIN 237.2 ng/ml (8.0-388.0)
--- NOTE | 2016-10-02 17:25 | Pharmacy Progress Note ---
Pharmacy Antibiotic Prog Note Date of Service Oct 02, 2016. Subjective The patient is currently receiving vancomycin IV as pulse doses, usually following dialysis, as random vanco levels indicate. The patient is currently on day # 13 of vancomycin IV therapy. Objective Height (Feet): 5 Height (Inches): 5.00 Weight (Kilograms): 75.700 Lab Results (24hrs): Test 10/01/16 20:37 10/02/16 05:15 10/02/16 16:16 Bedside Glucose 119 mg/dl (70-90) White Blood Count 12.78 K/uL (4.8-10.8) Red Blood Count 2.41 M/uL (4.2-5.4) Hemoglobin 7.5 g/dL (12.0-16.0) Hematocrit 22.3 % (37-47) Mean Corpuscular Volume 92.5 fL (80-100) Mean Corpuscular Hemoglobin 31.1 pg (25-34) Mean Corpuscular Hemoglobin Concent 33.6 g/dl (32-36) Platelet Count 114 K/uL (130-400) Mean Platelet Volume 11.4 fL (7.4-10.4) Neutrophils (%) (Auto) 81.0 % Lymphocytes (%) (Auto) 6.8 % Monocytes (%) (Auto) 9.0 % Eosinophils (%) (Auto) 2.6 % Basophils (%) (Auto) 0.1 % Neutrophils # (Auto) 10.36 K/uL (1.4-6.5) Lymphocytes # (Auto) 0.87 K/uL (1.2-3.4) Monocytes # (Auto) 1.15 K/uL (0.11-0.59) Eosinophils # (Auto) 0.33 K/uL (0-0.5) Basophils # (Auto) 0.01 K/uL (0-0.2) RDW Standard Deviation 67.2 fL (36.4-46.3) RDW Coefficient of Variation 21.5 % (11.5-14.5) Immature Granulocyte % (Auto) 0.5 % Immature Granulocyte # (Auto) 0.06 K/uL (0.00-0.02) Basophilic Stippling 2+ Anisocytosis PRESENT Sodium Level 135 mmol/L (136-145) Potassium Level 3.4 mmol/L (3.5-5.1) Chloride Level 101 mmol/L (98-107) Carbon Dioxide Level 26 mmol/L (21-32) Anion Gap 8.0 mmol/L (3-11) Blood Urea Nitrogen 23 mg/dl (7-18) Creatinine 2.00 mg/dl (0.60-1.20) Est Creatinine Clear Calc Drug Dose 30.7 ml/min Estimated GFR () 31.1 Estimated GFR (Non- 26.8 BUN/Creatinine Ratio 11.3 (10-20) Random Glucose 94 mg/dl (70-99) Lactic Acid Level 0.8 mmol/L (0.4-2.0) Calcium Level 9.2 mg/dl (8.5-10.1) Phosphorus Level 3.7 mg/dl (2.5-4.9) Magnesium Level 2.1 mg/dl (1.8-2.4) Total Bilirubin 8.0 mg/dl (0.2-1) Direct Bilirubin 6.0 mg/dl (0-0.2) Aspartate Amino Transf (AST/SGOT) 55 U/L (15-37) Alanine Aminotransferase (ALT/SGPT) 38 U/L (12-78) Alkaline Phosphatase 382 U/L (45-117) Total Protein 4.7 gm/dl (6.4-8.2) Albumin 2.4 gm/dl (3.4-5.0) Globulin 2.3 gm/dl (2.5-4.0) Albumin/Globulin Ratio 1.0 (0.9-2) Random Vancomycin Level 12.5 mcg/ml Iron Level 108 mcg/dl (35-150) Total Iron Binding Capacity 151 mcg/dl (250-450) Transferrin 97 mg/dl (200-360) Transferrin % Saturation 80 % (15-50) Ferritin 237.2 ng/ml (8.0-388.0) Vitamin B12 Level > 2000 pg/mL (211-911) Folate 9.27 ng/mL (>5.38) Assessment & Plan Vancomycin random this AM = 12.5mcg/ml This/These drug level(s) are: Subtherapeutic. Vancomycin 1000mg IV given today after dialysis. Goal trough level estimate: between 15 - 20 mcg/mL. Random level has been ordered for: 10/03 with AM labs. Pharmacy will continue to follow and will adjust dose/frequency as necessary. Thank you
--- NOTE | 2016-10-02 18:42 | Progress Note ---
Internal Med Progress Note Date of Service: Oct 02, 2016. Provider Documentation: SUBJECTIVE: resting comfortably denies pain no nausea afebrile denies blood in stools ok for blood transfusion OBJECTIVE: Vital Signs-as noted below Exam: General-alert and oriented. Not in distress ENT-normal hearing Neck-no neck masses Lungs-cta b/l no wheezing or crackles Heart-s1 and s2 heard regular rate and rhythm, no murmurs Abdomen-soft bowel sounds present non tender no distension Extremities- no erythema Neuro-alert and oriented moves extremities Lab data as noted below. ASSESSMENT & PLAN: Hypotension stable on midodrine will monitor Acute hypoxic respiratory failure 09/20/16 secondary to fluid overload from IV fluids and albumin; Aspiration pneumonia? Required intubation/mechanical ventilation. Improved with dialysis. Extubated 09/24/16. Now oxygenating well and stable on room air. Hx of biliary cirrhosis with portal hypertension. GI and nutrition consulted. Bilirubin today 8.0. ON rifaximin. Restarted obeticholic acid. seen by GI today and appreciate inputs f/ labs and liver US. Chronic kidney disease with acute kidney injury - ATN vs hepatorenal syndrome. Placement of hemodialysis catheter 09/27 and started on dialysis Management per Nephrology. altered mental status/encephalopathy secondary to multifactorial delirium. Head CT negative for acute event. currently stable Continue rifaximin for hepatic encephalopathy. Aspiration pneumonia? Received IV vancomycin and piperacillin/tazobactam for possible aspiration pneumonia. Receiving fluconazole for Melissa albicans noted in sputum and bronchial washings. Loose stools - negative for C. difficile 09/27. elevated wbc CT chest / abdomen / pelvis did not show any apparent source of infection. ID consulted. WBC today 12.7 currently on Primaxin Anemia acute on chronic? Hemoglobin 9.5 on admission, fell as low as 5.6 on 09/29/16. No obvious GI bleeding, but stools heme +. CT abdomen and pelvis did not show any apparent retroperitoneal or intra- abdominal bleed. received 2units prbc hb 7.5 today transfusing one more unit today Thrombocytopenia platelets 114 today hit studies negative GENERAL DEBILITATION Increase activity as tolerated. VTE PROPHYLAXIS SQ heparin stopped 09/28 due to thrombocytopenia / anemia. SCD's. DISPOSITION To be determined. may need placement pt/ot social service for d/c planning Vital Signs: Date Time Temp Pulse Resp B/P (MAP) Pulse Ox O2 Delivery O2 Flow Rate FiO2 10/02/16 17:55 36.6 92 18 103/62 92 10/02/16 17:45 115/56 10/02/16 17:43 36.7 97 18 102/52 93 10/02/16 17:33 36.9 93 20 120/46 94 10/02/16 16:24 36.6 91 18 122/69 (86) 91 Room Air 10/02/16 15:26 Room Air 10/02/16 13:29 36.6 95 121/56 (77) 10/02/16 13:15 93 194/95 10/02/16 13:00 94 106/57 10/02/16 12:45 92 98/52 10/02/16 12:30 94 99/51 10/02/16 12:15 91 94/55 10/02/16 12:00 96 95/57 10/02/16 11:50 Room Air 10/02/16 11:45 96 109/53 10/02/16 11:30 95 98/60 10/02/16 11:15 92 121/55 10/02/16 11:00 98 131/64 10/02/16 10:45 94 134/62 10/02/16 10:37 36.5 89 106/55 (72) 10/02/16 10:30 86 126/57 10/02/16 10:15 89 99/50 10/02/16 10:00 77 117/55 10/02/16 09:58 75 103/43 10/02/16 08:00 Room Air 10/02/16 07:46 36.9 92 20 147/75 (99) 92 Room Air 10/02/16 04:06 36.8 98 18 142/63 (89) 95 Room Air 10/02/16 04:00 95 Room Air 10/02/16 00:14 36.7 95 18 120/58 (78) 94 Room Air 10/01/16 23:59 95 Room Air 10/01/16 20:00 95 Room Air 10/01/16 19:09 36.7 96 18 130/63 (85) 95 Room Air Lab Results: Results Past 24 Hours Test 10/01/16 20:37 10/02/16 05:15 10/02/16 16:16 Range/Units Bedside Glucose 119 70-90 mg/dl White Blood Count 12.78 4.8-10.8 K/uL Red Blood Count 2.41 4.2-5.4 M/uL Hemoglobin 7.5 12.0-16.0 g/dL Hematocrit 22.3 37-47 % Mean Corpuscular Volume 92.5 80-100 fL Mean Corpuscular Hemoglobin 31.1 25-34 pg Mean Corpuscular Hemoglobin Concent 33.6 32-36 g/dl Platelet Count 114 130-400 K/uL Mean Platelet Volume 11.4 7.4-10.4 fL Neutrophils (%) (Auto) 81.0 % Lymphocytes (%) (Auto) 6.8 % Monocytes (%) (Auto) 9.0 % Eosinophils (%) (Auto) 2.6 % Basophils (%) (Auto) 0.1 % Neutrophils # (Auto) 10.36 1.4-6.5 K/uL Lymphocytes # (Auto) 0.87 1.2-3.4 K/uL Monocytes # (Auto) 1.15 0.11-0.59 K/uL Eosinophils # (Auto) 0.33 0-0.5 K/uL Basophils # (Auto) 0.01 0-0.2 K/uL RDW Standard Deviation 67.2 36.4-46.3 fL RDW Coefficient of Variation 21.5 11.5-14.5 % Immature Granulocyte % (Auto) 0.5 % Immature Granulocyte # (Auto) 0.06 0.00-0.02 K/uL Basophilic Stippling 2+ Anisocytosis PRESENT Sodium Level 135 136-145 mmol/L Potassium Level 3.4 3.5-5.1 mmol/L Chloride Level 101 98-107 mmol/L Carbon Dioxide Level 26 21-32 mmol/L Anion Gap 8.0 3-11 mmol/L Blood Urea Nitrogen 23 7-18 mg/dl Creatinine 2.00 0.60-1.20 mg/dl Est Creatinine Clear Calc Drug Dose 30.7 ml/min Estimated GFR () 31.1 Estimated GFR (Non- 26.8 BUN/Creatinine Ratio 11.3 10-20 Random Glucose 94 70-99 mg/dl Lactic Acid Level 0.8 0.4-2.0 mmol/L Calcium Level 9.2 8.5-10.1 mg/dl Phosphorus Level 3.7 2.5-4.9 mg/dl Magnesium Level 2.1 1.8-2.4 mg/dl Total Bilirubin 8.0 0.2-1 mg/dl Direct Bilirubin 6.0 0-0.2 mg/dl Aspartate Amino Transf (AST/SGOT) 55 15-37 U/L Alanine Aminotransferase (ALT/SGPT) 38 12-78 U/L Alkaline Phosphatase 382 45-117 U/L Total Protein 4.7 6.4-8.2 gm/dl Albumin 2.4 3.4-5.0 gm/dl Globulin 2.3 2.5-4.0 gm/dl Albumin/Globulin Ratio 1.0 0.9-2 Random Vancomycin Level 12.5 mcg/ml Iron Level 108 35-150 mcg/dl Total Iron Binding Capacity 151 250-450 mcg/dl Transferrin 97 200-360 mg/dl Transferrin % Saturation 80 15-50 % Ferritin 237.2 8.0-388.0 ng/ml Vitamin B12 Level > 2000 211-911 pg/mL Folate 9.27 >5.38 ng/mL Microbiology Results 10/02/16 C.difficile Toxin B Gene (PCR), Ordered Pending
[2016-10-03 03:27] VITALS: BP 119/57; PULSE 93; TEMP 37; O2SAT 91
[2016-10-03] MEDS: IMIPENEM/CILASTATIN IV 500 MG in DEXTROSE 5% 100ML 100 ML IV SCH ×2 (04:13→15:23)
[2016-10-03 07:55] LABS: HEMATOCRIT 28.8 % (37-47); MEAN CORPUSCULAR HEMOGLOBIN 29.7 pg (25-34); MEAN PLATELET VOLUME 10.7 fL (7.4-10.4); PLATELET COUNT 106 K/uL (130-400); WHITE BLOOD COUNT 12.88 K/uL (4.8-10.8)
[2016-10-03 07:56] VITALS: BP 128/59; PULSE 92; TEMP 37; O2SAT 93
[2016-10-03 08:12] LABS: ANISOCYTOSIS PRESENT; BASO % 0.1 %; BASO ABS # 0.01 K/uL (0-0.2); COMPLETE YES; ECHINOCYTES 1+; EOS % 1.9 %; IG% 0.5 %; LYMPH % 5.4 %; LYMPH ABS # 0.69 K/uL (1.2-3.4); MONO % 8.7 %; NEUT % 83.4 %; TARGET CELLS 2+
--- NOTE | 2016-10-03 08:23 | DIAGNOSTIC IMAGING REPORT ---
(LIVER) ABDOMEN LIMITED, DUPLEX PORTAL HEPATIC VEINS HISTORY: 60 years-old Female worsening jaundice, look for evidence of cholecystitis or choledocholithiasis. COMPARISON: CT abdomen and pelvis 09/29/2016. TECHNIQUE: Multiple real-time sonographic images of the liver were obtained assessing grayscale appearance and color Doppler flow. Additionally, duplex study of the hepatic and portal veins was obtained assessing grayscale appearance, color and spectral flow. FINDINGS: LIVER ULTRASOUND: The exam is very limited secondary to patient condition. Patient is unable to move for follow commands well. Patient unable to hold breath. The imaged pancreas is unremarkable distal body and tail scattered by bowel gas. Coarse and heterogeneous echogenicity of the liver is seen without focal mass. Marginal nodularity is seen compatible with chronic liver disease. Liver appears atrophic. The gallbladder wall is mildly thickened, 0.4 cm without shadowing cholelithiasis identified. Common bile duct measures 0.8 cm without choledocholithiasis. TIPS shunt is not well seen. No significant right-sided hydronephrosis identified. DUPLEX STUDY OF THE PORTAL AND HEPATIC VEINS: Hepatopedal flow seen within the patent portal vein. TIPS shunt is patent with evaluation of the inter-TIPS peak systolic velocities degraded by quality of the exam. Normal phasic waveforms are seen within the right, left and middle hepatic veins. Mild right upper quadrant ascites is noted. IMPRESSION: 1. Limited exam as above secondary to patient condition. 2. Cirrhotic liver disease with mild volume right upper quadrant ascites. 3. Patency of the portal and hepatic veins as well as the TIPS shunt. 4. Mild dilation of the common bile duct, 0.8 cm without obstructing stone or mass identified. The above report was generated using voice recognition software. It may contain grammatical, syntax or spelling errors. Electronically signed by: Vikash Ayala M.D. 10/03/2016 8:22 AM Dictated Date/Time: 10/03/2016 8:12 AM
[2016-10-03] MEDS: URSODIOL 300 MG CAP PO SCH ×2 (08:46→19:59)
[2016-10-03] MEDS: PANTOprazole SOD 40 MG TAB PO SCH (08:46)
[2016-10-03] MEDS: BOOST VANILLA PO SCH ×4 (08:46→16:16)
[2016-10-03] MEDS: RIFAXIMIN TAB 550 MG TAB PO SCH ×2 (08:47→19:59)
[2016-10-03] MEDS: MIDODRINE 2.5 MG TAB PO SCH ×3 (08:47→16:55)
[2016-10-03] MEDS: MULTIVITAMIN TAB PO SCH (08:47)
[2016-10-03] MEDS: MICONAZOLE NITRATE POWDER 43 GM EXT SCH ×2 (08:47→19:59)
[2016-10-03] MEDS: OXYCODONE HCL IR 5 MG TAB (IMMEDIATE RELEASE) PO PRN (08:49)
--- NOTE | 2016-10-03 10:27 | Progress Note ---
Progress Note Date of Service Oct 03, 2016. Progress Note Uls results noted - no evidence of clot in PVT or hepatic vein, TIPS remains patent, no ascites noted. Lipase WNL. Would continue to monitor bilirubin q 1-2 days; no other intervention needed at present.
--- NOTE | 2016-10-03 11:27 | Progress Note ---
Internal Med Progress Note Date of Service: Oct 03, 2016. Provider Documentation: SUBJECTIVE: denies any pain no sob no nausea o abdominal pain not moved bowels seems some what depressed and says she feels like going home but denies any depression OBJECTIVE: Vital Signs-as noted below Exam: General-alert and oriented. Not in distress ENT-normal hearing Neck-no neck masses Lungs-cta b/l no wheezing or crackles Heart-s1 and s2 heard regular rate and rhythm, no murmurs Abdomen-soft bowel sounds present non tender no distension Extremities- no erythema Neuro-alert and oriented moves extremities Lab data as noted below. ASSESSMENT & PLAN: Hypotension stable on midodrine continue same will monitor Acute hypoxic respiratory failure 09/20/16 secondary to fluid overload from IV fluids and albumin; Aspiration pneumonia? Required intubation/mechanical ventilation. Improved with dialysis. Extubated 09/24/16. Now oxygenating well and stable on room air. will monitor Hx of biliary cirrhosis with portal hypertension. GI and nutrition consulted. Bilirubin yesterday 8.0. ON rifaximin. Restarted obeticholic acid. seen by GI today and appreciate inputs liver US10/03/16- no acute findings Chronic kidney disease stage 3 with acute kidney injury - ATN vs hepatorenal syndrome. Placement of hemodialysis catheter 09/27 and started on dialysis Management per Nephrology. altered mental status/encephalopathy secondary to multifactorial delirium. Head CT negative for acute event. currently stable Continue rifaximin for hepatic encephalopathy. Aspiration pneumonia? Received IV vancomycin and piperacillin/tazobactam for possible aspiration pneumonia. Receiving fluconazole for Melissa albicans noted in sputum and bronchial washings. Loose stools - negative for C. difficile 09/27. elevated wbc CT chest / abdomen / pelvis did not show any apparent source of infection. ID consulted. WBC today 12.8 currently on Primaxin and vanco Anemia acute on chronic? Hemoglobin 9.5 on admission, fell as low as 5.6 on 09/29/16. No obvious GI bleeding, but stools heme +. CT abdomen and pelvis did not show any apparent retroperitoneal or intra- abdominal bleed. received 2units prbc hb 7.5 on 10/02/16 and received one more unit of prbc hb 9.5 today Thrombocytopenia platelets 106 today hit studies negative GENERAL DEBILITATION Increase activity as tolerated. Depression? patient denies will monitor VTE PROPHYLAXIS SQ heparin stopped 09/28 due to thrombocytopenia / anemia. SCD's. DISPOSITION To be determined. may need placement pt/ot social service for d/c planning Vital Signs: Date Time Temp Pulse Resp B/P (MAP) Pulse Ox O2 Delivery O2 Flow Rate FiO2 10/03/16 11:17 Room Air 10/03/16 08:00 Room Air 10/03/16 07:56 37.0 92 20 128/59 (82) 93 Room Air 10/03/16 04:00 Nasal Cannula 2.0 10/03/16 03:27 37.0 93 17 119/57 (77) 91 Room Air 10/02/16 23:59 Nasal Cannula 2.0 10/02/16 23:51 37.1 96 17 120/63 (82) 91 Room Air 10/02/16 21:12 95 Room Air 10/02/16 20:35 88 16 124/64 92 10/02/16 20:33 36.8 88 22 124/64 92 10/02/16 20:00 36.8 101 17 122/63 93 10/02/16 18:22 36.9 83 20 108/67 93 10/02/16 17:55 36.6 92 18 103/62 92 10/02/16 17:45 115/56 10/02/16 17:43 36.7 97 18 102/52 93 10/02/16 17:33 36.9 93 20 120/46 94 10/02/16 16:24 36.6 91 18 122/69 (86) 91 Room Air 10/02/16 15:26 Room Air 10/02/16 13:29 36.6 95 121/56 (77) 10/02/16 13:15 93 194/95 10/02/16 13:00 94 106/57 10/02/16 12:45 92 98/52 10/02/16 12:30 94 99/51 10/02/16 12:15 91 94/55 10/02/16 12:00 96 95/57 10/02/16 11:50 Room Air 10/02/16 11:45 96 109/53 10/02/16 11:30 95 98/60 Lab Results: Results Past 24 Hours Test 10/02/16 16:16 10/03/16 04:08 10/03/16 07:39 Range/Units Iron Level 108 35-150 mcg/dl Total Iron Binding Capacity 151 250-450 mcg/dl Transferrin 97 200-360 mg/dl Transferrin % Saturation 80 15-50 % Ferritin 237.2 8.0-388.0 ng/ml Vitamin B12 Level > 1999 211-911 pg/mL Folate 9.27 >5.38 ng/mL Lipase 269 73-393 U/L Random Vancomycin Level 22.2 mcg/ml White Blood Count 12.88 4.8-10.8 K/uL Red Blood Count 3.20 4.2-5.4 M/uL Hemoglobin 9.5 12.0-16.0 g/dL Hematocrit 28.8 37-47 % Mean Corpuscular Volume 90.0 80-100 fL Mean Corpuscular Hemoglobin 29.7 25-34 pg Mean Corpuscular Hemoglobin Concent 33.0 32-36 g/dl Platelet Count 106 130-400 K/uL Mean Platelet Volume 10.7 7.4-10.4 fL Neutrophils (%) (Auto) 83.4 % Lymphocytes (%) (Auto) 5.4 % Monocytes (%) (Auto) 8.7 % Eosinophils (%) (Auto) 1.9 % Basophils (%) (Auto) 0.1 % Neutrophils # (Auto) 10.75 1.4-6.5 K/uL Lymphocytes # (Auto) 0.69 1.2-3.4 K/uL Monocytes # (Auto) 1.12 0.11-0.59 K/uL Eosinophils # (Auto) 0.25 0-0.5 K/uL Basophils # (Auto) 0.01 0-0.2 K/uL RDW Standard Deviation 66.3 36.4-46.3 fL RDW Coefficient of Variation 22.2 11.5-14.5 % Immature Granulocyte % (Auto) 0.5 % Immature Granulocyte # (Auto) 0.06 0.00-0.02 K/uL Anisocytosis PRESENT Target Cells 2+ Echinocytes 1+
[2016-10-03 11:45] VITALS: BP 127/55; PULSE 94; TEMP 36.8; O2SAT 93
[2016-10-03] MEDS: HYDROmorphone INJ 0.5 MG/0.5 ML SYR IV PRN (13:05)
[2016-10-03 15:16] VITALS: BP 128/56; PULSE 92; TEMP 36.7; O2SAT 93
[2016-10-03 18:29] VITALS: BP 139/68; PULSE 88; TEMP 36.7; O2SAT 94
[2016-10-03 23:45] VITALS: BP 94/55; PULSE 85; TEMP 36.6; O2SAT 95
[2016-10-04 03:48] VITALS: BP 126/55; PULSE 87; TEMP 36.9; O2SAT 94
[2016-10-04] MEDS: IMIPENEM/CILASTATIN IV 500 MG in DEXTROSE 5% 100ML 100 ML IV SCH ×2 (03:52→16:42)
[2016-10-04 05:57] LABS: BASO % 0.3 %; BASO ABS # 0.03 K/uL (0-0.2); EOS % 3.3 %; HEMATOCRIT 27.9 % (37-47); IG% 0.7 %; LYMPH % 7.6 %; LYMPH ABS # 0.86 K/uL (1.2-3.4); MEAN CELL VOLUME 90.3 fL (80-100); MEAN CORPUSCULAR HEMOGLOBIN 30.4 pg (25-34); MEAN CORPUSCULAR HGB CONC 33.7 g/dl (32-36); MONO % 8.4 %; NEUT % 79.7 %; PLATELET COUNT 105 K/uL (130-400); RED BLOOD COUNT 3.09 M/uL (4.2-5.4); WHITE BLOOD COUNT 11.37 K/uL (4.8-10.8)
[2016-10-04 06:37] LABS: COMPLETE YES; ECHINOCYTES 3+; POLYCHROMASIA 1+; TARGET CELLS 1+
[2016-10-04 06:51] LABS: BUN/CREATININE RATIO 10.5 (10-20); CALCIUM 9.6 mg/dl (8.5-10.1); CREATININE 2.2 mg/dl (0.60-1.20); POTASSIUM 3.3 mmol/L (3.5-5.1)
[2016-10-04] MEDS ORDERED: EPOETIN ALFA INJ 12,000 UNITS in SYRINGE 0 ML IV. SCH (07:00)
[2016-10-04 07:13] VITALS: BP 120/52; PULSE 89; TEMP 36.9; O2SAT 97
[2016-10-04] MEDS: BOOST VANILLA PO SCH ×4 (07:30→17:45)
[2016-10-04] MEDS ORDERED: EPOETIN ALFA 10,000 UNITS/ML VIAL IV. ONE (08:00)
[2016-10-04] MEDS: MICONAZOLE NITRATE POWDER 43 GM EXT SCH ×2 (08:18→21:06)
[2016-10-04] MEDS: PANTOprazole SOD 40 MG TAB PO SCH (08:18)
[2016-10-04] MEDS: URSODIOL 300 MG CAP PO SCH ×2 (08:18→21:06)
[2016-10-04] MEDS: RIFAXIMIN TAB 550 MG TAB PO SCH ×2 (08:19→21:06)
[2016-10-04] MEDS: MIDODRINE 2.5 MG TAB PO SCH ×3 (08:19→18:22)
[2016-10-04] MEDS: MULTIVITAMIN TAB PO SCH (08:19)
--- NOTE | 2016-10-04 08:55 | Progress Note ---
Subjective Date of Service: Oct 04, 2016. Subjective pt transferred over weekend, improving. wbc significantly improved. remains afebrile. tolerating abx, vanco by level and imipenem. Liver ultrasound without evidence infection, ct abd negative for infection as well. blood cultures negative to date x 2. no overnight events. Problem List Medical Problems: (1) Displaced fracture of proximal end of right humerus Status: Acute Surgical Problems: (1) Status post catheter ablation for SVT Status: Chronic Objective Vital Signs Date Time Temp Pulse Resp B/P (MAP) Pulse Ox O2 Delivery O2 Flow Rate FiO2 10/04/16 08:00 Room Air 10/04/16 07:13 36.9 89 120/52 (74) 97 Nasal Cannula 1.0 10/04/16 04:00 Room Air 10/04/16 03:48 36.9 87 21 126/55 (78) 94 Room Air 10/03/16 23:59 Room Air 10/03/16 23:45 36.6 85 18 94/55 (68) 95 Room Air 10/03/16 20:00 Room Air 10/03/16 18:29 36.7 88 18 139/68 (91) 94 Room Air 10/03/16 16:00 Room Air 10/03/16 15:16 36.7 92 16 128/56 (80) 93 Room Air 10/03/16 11:45 36.8 94 16 127/55 (79) 93 Room Air 10/03/16 11:17 Room Air Laboratory Results Last 24 Hours Test 10/04/16 05:30 White Blood Count 11.37 K/uL Red Blood Count 3.09 M/uL Hemoglobin 9.4 g/dL Hematocrit 27.9 % Mean Corpuscular Volume 90.3 fL Mean Corpuscular Hemoglobin 30.4 pg Mean Corpuscular Hemoglobin Concent 33.7 g/dl Platelet Count 105 K/uL Mean Platelet Volume 10.0 fL Neutrophils (%) (Auto) 79.7 % Lymphocytes (%) (Auto) 7.6 % Monocytes (%) (Auto) 8.4 % Eosinophils (%) (Auto) 3.3 % Basophils (%) (Auto) 0.3 % Neutrophils # (Auto) 9.07 K/uL Lymphocytes # (Auto) 0.86 K/uL Monocytes # (Auto) 0.95 K/uL Eosinophils # (Auto) 0.38 K/uL Basophils # (Auto) 0.03 K/uL RDW Standard Deviation 70.6 fL RDW Coefficient of Variation 22.7 % Immature Granulocyte % (Auto) 0.7 % Immature Granulocyte # (Auto) 0.08 K/uL Polychromasia 1+ Basophilic Stippling 1+ Target Cells 1+ Echinocytes 3+ Sodium Level 135 mmol/L Potassium Level 3.3 mmol/L Chloride Level 100 mmol/L Carbon Dioxide Level 27 mmol/L Anion Gap 8.0 mmol/L Blood Urea Nitrogen 23 mg/dl Creatinine 2.20 mg/dl Est Creatinine Clear Calc Drug Dose 28.2 ml/min Estimated GFR () 27.7 Estimated GFR (Non- 23.9 BUN/Creatinine Ratio 10.5 Random Glucose 90 mg/dl Calcium Level 9.6 mg/dl Magnesium Level 2.0 mg/dl Total Bilirubin 8.9 mg/dl Direct Bilirubin 6.7 mg/dl Aspartate Amino Transf (AST/SGOT) 49 U/L Alanine Aminotransferase (ALT/SGPT) 22 U/L Alkaline Phosphatase 443 U/L Total Protein 4.8 gm/dl Albumin 2.3 gm/dl Assessment and Plan (1) Leukocytosis Assessment & Plan: ? infectious etiology, cultures remain negative. She has been afebrile since admission, however, wbc significantly better on imipenem. would complete emperic 10 day course. maintain vanco level 15-20. No new ID recs at this time.
[2016-10-04 12:04] VITALS: BP 140/65; PULSE 75; TEMP 37.1; O2SAT 92
--- NOTE | 2016-10-04 15:14 | Nephrology Progress Note ---
Nephrology Progress Note Date of Service: Oct 04, 2016. Subjective 60 yo female with biliary cirrhosis with ileana/atn. pt being moved to the third flood. breathing better. minimal urination. arm in sling. at bedside. Objective Date Time Temp Pulse Resp B/P (MAP) Pulse Ox O2 Delivery O2 Flow Rate FiO2 10/04/16 12:04 37.1 75 20 140/65 (90) 92 Room Air 10/04/16 11:49 Room Air 10/04/16 08:00 Room Air 10/04/16 07:13 36.9 89 120/52 (74) 97 Nasal Cannula 1.0 10/04/16 04:00 Room Air 10/04/16 03:48 36.9 87 21 126/55 (78) 94 Room Air 10/03/16 23:59 Room Air 10/03/16 23:45 36.6 85 18 94/55 (68) 95 Room Air 10/03/16 20:00 Room Air 10/03/16 18:29 36.7 88 18 139/68 (91) 94 Room Air 10/03/16 16:00 Room Air 10/03/16 15:16 36.7 92 16 128/56 (80) 93 Room Air Physical Exam: General-awake, jaundiced Eyes-+scleral icterus ENT-mmm Neck-supple Lungs-cta Heart-regular Abdomen-bs+/soft Extremities-minimal edema in legs, right arm in sling Neuro-nonfocal Current Inpatient Medications Medications (Trade) Dose Ordered Sig/Michael Route Start Time Stop Time Status Last Admin Dose Admin Miconazole Nitrate (Desenex Powder) 1 appln BID EXT 09/17/16 21:00 10/17/16 20:59 10/04/16 08:18 1 APPLN Midodrine (Proamatine Tab) 5 mg TID@0800,1200,1800 PO 09/19/16 18:00 10/19/16 17:59 10/04/16 11:24 5 MG Levalbuterol (Xopenex 0.63 Mg/ 3 Ml Neb) 0.63 mg Q6H PRN INH 09/20/16 08:30 10/20/16 08:29 Fentanyl Citrate (Fentanyl Inj) 50 mcg Q1H PRN IV 09/20/16 21:45 10/04/16 21:44 Future Hold 09/21/16 04:14 50 MCG Rifaximin (Xifaxan Tab) 550 mg BID PO 09/22/16 21:00 10/22/16 20:59 10/04/16 08:19 550 MG Multivitamins (Multivitamin Tab) 1 tab QAM PO 09/25/16 09:00 10/25/16 08:59 10/04/16 08:19 1 TAB Heparin Sodium (Porcine) (Heparin 10 Unit/ ml 5 ml Flush) 5 ml PRN PRN FLUSH 09/25/16 02:00 10/25/16 01:59 Metoclopramide HCl (Reglan Inj) 5 mg Q6H PRN IV 09/27/16 12:45 10/25/16 12:44 10/01/16 07:40 5 MG Prednisone (PredniSONE TAB) 5 mg DAILY PO 09/28/16 09:00 10/28/16 08:59 10/04/16 08:18 5 MG Enteral Nutritional Formula (Boost) 1 can BIDM PO 09/28/16 07:15 10/28/16 07:14 09/30/16 08:45 1 CAN Ursodiol (Actigall Cap) 600 mg BID PO 09/28/16 21:00 10/28/16 20:59 10/04/16 08:18 600 MG Pantoprazole Sodium (Protonix Tab) 40 mg QAM PO 09/29/16 09:00 10/29/16 08:59 10/04/16 08:18 40 MG Vancomycin HCl (Consult) 1 ea UD PRN N/A 09/29/16 08:45 10/29/16 08:44 Imipenem/ Cilastatin Sodium (Consult) 1 ea UD N/A 09/29/16 09:19 10/29/16 09:18 Imipenem/ Cilastatin Sodium 500 mg/Dextrose 110 ml @ 100 mls/hr Q12H IV 09/30/16 04:00 10/10/16 03:59 10/04/16 03:52 100 MLS/HR Oxycodone HCl (Roxicodone Immediate Rel Tab) 5 mg Q8H PRN PO 10/01/16 18:15 10/15/16 18:14 10/03/16 08:49 5 MG Hydromorphone HCl (Dilaudid Inj) 0.25 mg Q4H PRN IV 10/01/16 18:15 10/15/16 18:14 10/03/16 13:05 0.25 MG Non-Formulary Medication (Obeticholic Acid (Ocaliva)) 5 mg Sa@0900 PO 10/02/16 14:00 11/01/16 13:59 10/02/16 13:47 5 MG Last 24 Hours Test 10/04/16 05:30 White Blood Count 11.37 K/uL Red Blood Count 3.09 M/uL Hemoglobin 9.4 g/dL Hematocrit 27.9 % Mean Corpuscular Volume 90.3 fL Mean Corpuscular Hemoglobin 30.4 pg Mean Corpuscular Hemoglobin Concent 33.7 g/dl Platelet Count 105 K/uL Mean Platelet Volume 10.0 fL Neutrophils (%) (Auto) 79.7 % Lymphocytes (%) (Auto) 7.6 % Monocytes (%) (Auto) 8.4 % Eosinophils (%) (Auto) 3.3 % Basophils (%) (Auto) 0.3 % Neutrophils # (Auto) 9.07 K/uL Lymphocytes # (Auto) 0.86 K/uL Monocytes # (Auto) 0.95 K/uL Eosinophils # (Auto) 0.38 K/uL Basophils # (Auto) 0.03 K/uL RDW Standard Deviation 70.6 fL RDW Coefficient of Variation 22.7 % Immature Granulocyte % (Auto) 0.7 % Immature Granulocyte # (Auto) 0.08 K/uL Polychromasia 1+ Basophilic Stippling 1+ Target Cells 1+ Echinocytes 3+ Sodium Level 135 mmol/L Potassium Level 3.3 mmol/L Chloride Level 100 mmol/L Carbon Dioxide Level 27 mmol/L Anion Gap 8.0 mmol/L Blood Urea Nitrogen 23 mg/dl Creatinine 2.20 mg/dl Est Creatinine Clear Calc Drug Dose 28.2 ml/min Estimated GFR () 27.7 Estimated GFR (Non- 23.9 BUN/Creatinine Ratio 10.5 Random Glucose 90 mg/dl Calcium Level 9.6 mg/dl Magnesium Level 2.0 mg/dl Total Bilirubin 8.9 mg/dl Direct Bilirubin 6.7 mg/dl Aspartate Amino Transf (AST/SGOT) 49 U/L Alanine Aminotransferase (ALT/SGPT) 22 U/L Alkaline Phosphatase 443 U/L Total Protein 4.8 gm/dl Albumin 2.3 gm/dl Assessment & Plan ileana-atn vs HRS and volume status much improved. plan on holding dialysis today and dialyzing tomorrow. continue three days a week dialysis. electrolytes are stable. volume status much improved. still may recover kidney function. technically ileana at this time. has tunneled line. will monitor for signs of recovery.
[2016-10-04 15:25] VITALS: BP 116/61; PULSE 81; TEMP 37; O2SAT 94
[2016-10-04] MEDS: OXYCODONE HCL IR 5 MG TAB (IMMEDIATE RELEASE) PO PRN (15:40)
--- NOTE | 2016-10-04 16:24 | Hematology/Oncology Prog Note ---
Hematology/Onc Progress Note Date of Service Oct 04, 2016. Medications Medications Administered Medications (Trade) Dose Ordered Sig/Michael Route Start Time Stop Time Status Last Admin Dose Admin Cefazolin Sodium 60 ml @ 100 mls/hr PREOP IV 09/17/16 06:00 09/17/16 18:00 DC 09/17/16 12:40 100 MLS/HR Dexamethasone (Decadron Tab) 8 mg PREOP PO 09/17/16 06:00 09/17/16 18:00 DC 09/17/16 10:37 8 MG Ropivacaine 150 mg/Bupivacaine HCl/Epinephrine Bitart 30 ml/ Dexamethasone Sodium Phosphate 4 mg/Ketamine HCl 10 mg/Clonidine 100 mcg/Sodium Chloride 30 ml/ Empty Bag 92.2 ml @ 0 mls/hr TODAY@06 INFIL 09/17/16 06:00 09/17/16 06:01 DC 09/17/16 06:00 92.2 MLS/HR Povidone Iodine (Betadine Ophthalmic Prep Solution) 30 ml STK-MED ONCE .ROUTE 09/17/16 12:11 09/17/16 12:12 DC 09/17/16 12:11 17 ML Bacitracin (Bacitracin Inj) 50,000 units STK-MED ONCE .ROUTE 09/17/16 12:11 09/17/16 12:12 DC 09/17/16 12:11 50,000 UNITS Ketorolac Tromethamine (Toradol Inj) 30 mg Q6 IV. 09/17/16 18:00 09/18/16 02:53 DC 09/17/16 23:51 30 MG Pantoprazole Sodium (Protonix Tab) 40 mg QAM PO 09/18/16 09:00 09/20/16 15:46 DC 09/19/16 08:28 40 MG Potassium Chloride 10 meq/ Sodium Chloride 1,005 ml @ 100 mls/hr Q10H3M IV 09/17/16 18:00 09/19/16 09:37 DC 09/19/16 00:13 100 MLS/HR Oxycodone HCl (Oxycontin Tab) 10 mg Q12 PO 09/17/16 21:00 09/18/16 13:47 DC 09/17/16 21:16 10 MG Senna (Senokot Tab) 17.2 mg HS PO 09/17/16 21:00 09/20/16 15:46 DC 09/19/16 21:20 17.2 MG Multivitamins (Multivitamin Tab) 1 tab DAILY PO 09/18/16 09:00 09/20/16 15:46 DC 09/19/16 08:27 1 TAB Ferrous Gluconate (Ferrous Gluconate Tab) 324 mg TIDM PO 09/17/16 17:45 09/19/16 22:45 DC 09/19/16 17:39 324 MG Cefazolin Sodium 2000 mg/Dextrose 60 ml @ 100 mls/hr Q8H IV 09/17/16 20:00 09/17/16 20:35 DC 09/17/16 19:38 100 MLS/HR Gabapentin (Neurontin Cap) 300 mg TID PO 09/17/16 21:00 09/20/16 15:46 DC 09/18/16 09:11 300 MG Hydroxyzine HCl (Vistaril Tab) 50 mg HS PO 09/17/16 21:00 09/20/16 15:46 DC 09/19/16 21:19 50 MG Prednisone (PredniSONE TAB) 1 mg QAM PO 09/18/16 09:00 09/23/16 09:44 DC 09/19/16 08:28 1 MG Sertraline HCl (Zoloft Tab) 50 mg QAM PO 09/18/16 09:00 09/20/16 15:46 DC 09/19/16 08:28 50 MG Ursodiol (Actigall Cap) 600 mg BID PO 09/17/16 21:00 09/20/16 15:46 DC 09/19/16 21:19 600 MG Miconazole Nitrate (Desenex Powder) 1 appln BID EXT 09/17/16 21:00 10/17/16 20:59 10/04/16 08:18 1 APPLN Hydrocortisone Sodium Succinate 50 mg/Syringe 1 ml @ 4 mls/min NOW STAT IV 09/17/16 21:40 09/17/16 21:41 DC 09/17/16 22:19 4 MLS/MIN Sodium Chloride 500 ml @ 500 mls/hr NOW STAT IV 09/18/16 02:52 09/18/16 03:51 DC 09/18/16 03:03 500 MLS/HR Hydrocortisone Sodium Succinate 50 mg/Syringe 1 ml @ 4 mls/min NOW ONCE IV 09/18/16 12:00 09/18/16 12:01 DC 09/18/16 12:05 4 MLS/MIN Sodium Chloride 500 ml @ 999 mls/hr Q31M IV 09/18/16 11:30 09/18/16 12:00 DC 09/18/16 12:05 999 MLS/HR Sodium Chloride 500 ml @ 999 mls/hr Q31M IV 09/18/16 14:00 09/18/16 14:30 DC 09/18/16 13:54 999 MLS/HR Enteral Nutritional Formula (Boost) 1 can DAILY@1000,2100 PO 09/18/16 21:00 09/20/16 15:46 DC 09/19/16 21:17 1 CAN Sodium Chloride 500 ml @ 999 mls/hr Q31M IV 09/18/16 20:00 09/18/16 20:30 DC 09/18/16 19:59 999 MLS/HR Hydrocortisone Sodium Succinate 50 mg/Syringe 1 ml @ 4 mls/min TODAY@2200 ONCE IV 09/18/16 22:00 09/18/16 22:01 DC 09/18/16 22:02 4 MLS/MIN Sodium Chloride 500 ml @ 999 mls/hr Q31M IV 09/19/16 00:30 09/19/16 01:00 DC 09/19/16 00:38 999 MLS/HR Sodium Chloride 1,000 ml @ 200 mls/hr Q5H IV 09/19/16 09:45 09/19/16 14:44 DC 09/19/16 10:21 200 MLS/HR Furosemide 40 mg/ Syringe 4 ml @ 4 mls/min NOW ONCE IV 09/19/16 10:30 09/19/16 10:31 DC 09/19/16 10:25 4 MLS/MIN Hydrocortisone Sodium Succinate 25 mg/Syringe 0.5 ml @ 4 mls/min Q8 IV 09/19/16 14:00 09/23/16 09:41 DC 09/20/16 17:02 4 MLS/MIN Albumin Human (Albumin 25%) 12.5 gm 1700,1701,2100,2101 IV 09/19/16 17:00 09/19/16 17:33 DC 09/19/16 17:28 12.5 GM Albumin Human (Albumin 25%) 25 gm Q8 IV 09/19/16 23:00 09/20/16 15:46 DC 09/20/16 05:45 25 GM Midodrine (Proamatine Tab) 5 mg TID@0800,1200,1800 PO 09/19/16 18:00 10/19/16 17:59 10/04/16 11:24 5 MG Octreotide Acetate (Sandostatin Inj) 100 mcg Q8 IV 09/19/16 22:00 09/22/16 05:32 DC 09/22/16 00:17 100 MCG Lactulose (Chronulac Syrup) 30 gm BID PO 09/19/16 21:00 09/20/16 15:46 DC 09/19/16 21:18 30 GM Ceftriaxone Sodium 1 gm/ Dextrose 50 ml @ 100 mls/hr Q24H IV 09/19/16 22:00 09/20/16 20:58 DC 09/19/16 22:32 100 MLS/HR Furosemide 80 mg/ Syringe 8 ml @ 4 mls/min TODAY@0830 ONCE IV 09/20/16 08:30 09/20/16 08:31 DC 09/20/16 08:55 4 MLS/MIN Levalbuterol (Xopenex 0.63 Mg/ 3 Ml Neb) 0.63 mg 0816 ONCE INH 09/20/16 08:16 09/20/16 08:23 DC 09/20/16 09:05 0.63 MG Furosemide 80 mg/ Syringe 8 ml @ 4 mls/min TODAY@1400 IV 09/20/16 14:00 09/20/16 20:00 DC 09/20/16 17:02 4 MLS/MIN Pantoprazole Sodium 40 mg/ Syringe 10 ml @ 5 mls/min DAILY IV 09/21/16 09:00 09/28/16 09:21 DC 09/28/16 09:07 5 MLS/MIN Miscellaneous (Rapid Sequence Induction Bag) 1 ea STK-MED ONCE N/A 09/20/16 20:44 09/20/16 20:45 DC 09/20/16 20:44 1 EA Vancomycin HCl 2000 mg/Sodium Chloride 540 ml @ 202.5 mls/ hr NOW ONCE IV 09/20/16 22:00 09/21/16 00:39 DC 09/20/16 22:21 202.5 MLS/HR Methylprednisolone Sodium Succinate 40 mg/Syringe 0.64 ml @ 1.5 mls/min TID IV 09/20/16 22:00 09/22/16 11:51 DC 09/22/16 08:19 1.5 MLS/MIN Fentanyl Citrate (Fentanyl Inj) 100 mcg STK-MED ONCE .ROUTE 09/20/16 21:05 09/20/16 21:06 DC 09/20/16 21:51 100 MCG Piperacillin Sod/ Tazobactam Sod 4.5 gm/Dextrose 120 ml @ 200 mls/hr NOW ONCE IV 09/20/16 21:30 09/20/16 22:05 DC 09/20/16 21:51 200 MLS/HR Piperacillin Sod/ Tazobactam Sod 4.5 gm/Dextrose 120 ml @ 30 mls/hr Q8H IV 09/21/16 04:00 09/21/16 12:55 DC 09/21/16 12:05 30 MLS/HR Midazolam HCl (Versed Inj) 2.5 mg Q1H PRN IV 09/20/16 21:45 09/27/16 08:52 DC 09/21/16 04:13 2.5 MG Fentanyl Citrate (Fentanyl Inj) 50 mcg Q1H PRN IV 09/20/16 21:45 10/04/16 21:44 Future Hold 09/21/16 04:14 50 MCG Piperacillin Sod/ Tazobactam Sod 4.5 gm/Dextrose 120 ml @ 30 mls/hr Q12H IV 09/21/16 20:00 09/24/16 12:22 DC 09/24/16 12:21 30 MLS/HR Octreotide Acetate (Sandostatin Inj) 100 mcg Q8 IV. 09/22/16 06:00 09/25/16 14:58 DC 09/25/16 14:12 100 MCG Rifaximin (Xifaxan Tab) 550 mg BID PO 09/22/16 21:00 10/22/16 20:59 10/04/16 08:19 550 MG Lactulose (Chronulac Syrup) 30 gm QID PRN PO 09/22/16 10:30 10/01/16 10:43 DC 09/22/16 11:31 30 GM Vancomycin HCl 750 mg/Sodium Chloride 265 ml @ 125 mls/hr TODAY@1400 IV 09/22/16 14:00 09/22/16 16:08 DC 09/22/16 14:37 125 MLS/HR Methylprednisolone Sodium Succinate 20 mg/Syringe 0.32 ml @ 1.5 mls/min Q12 IV 09/22/16 21:00 09/23/16 09:28 DC 09/22/16 21:00 1.5 MLS/MIN Enteral Nutritional Formula (Peptamen Intense VHP) 1,000 ml 10CC OG 09/22/16 16:30 09/23/16 09:11 DC 09/22/16 19:05 1,000 ML Fentanyl Citrate (Fentanyl Inj) 100 mcg STK-MED ONCE .ROUTE 09/22/16 17:09 09/22/16 17:10 DC 09/22/16 17:14 50 MCG Lactulose (Chronulac Syrup) 30 gm QID PO 09/23/16 09:00 10/01/16 10:43 DC 09/25/16 08:10 30 GM Enteral Nutritional Formula (Novasource Renal) 1,000 ml UD PRN OG 09/23/16 09:00 09/26/16 14:44 DC 09/23/16 12:00 1,000 ML Methylprednisolone Sodium Succinate 20 mg/Syringe 0.32 ml @ 1.5 mls/min DAILY IV 09/24/16 09:00 09/27/16 08:59 DC 09/26/16 08:08 1.5 MLS/MIN Heparin Sodium (Porcine) (Heparin Sq 5000 Unit/0.5ml) 5,000 unit Q8 SQ 09/23/16 14:00 09/28/16 08:30 DC 09/28/16 06:13 5,000 UNIT Multivitamins Therapeutic (Cerovite Liquid) 15 ml QAM PO 09/24/16 09:00 09/24/16 15:49 DC 09/24/16 08:53 15 ML Sterile Water (Tube Feeding Water Flush) 1 ea Q4 NG 09/23/16 12:00 09/24/16 15:48 DC 09/24/16 04:15 1 EA Fluconazole/ Sodium Chloride 200 mg/Prmx 100 ml @ 100 mls/hr DAILY@1800 IV 09/23/16 18:00 09/30/16 17:59 DC 09/29/16 17:44 100 MLS/HR Potassium/ Phosphorus/Sodium (Phospha 250 Neutral 155-852-130 Mg) 2 tab NOW ONCE PO 09/24/16 10:15 09/24/16 10:17 DC 09/24/16 11:28 2 TAB Phytonadione (Mephyton Tab) 5 mg DAILY PO 09/24/16 10:30 10/02/16 14:45 DC 10/02/16 07:59 5 MG Vancomycin HCl 500 mg/Sodium Chloride 260 ml @ 125 mls/hr TODAY@1230 ONCE IV 09/24/16 12:30 09/24/16 14:34 DC 09/24/16 13:56 125 MLS/HR Piperacillin Sod/ Tazobactam Sod 4.5 gm/Dextrose 120 ml @ 30 mls/hr Q12@0200,1400 IV 09/24/16 14:00 09/27/16 13:59 DC 09/27/16 04:19 30 MLS/HR Ketorolac Tromethamine (Toradol Inj) 30 mg STK-MED ONCE .ROUTE 09/24/16 14:50 09/24/16 14:51 DC 09/24/16 14:53 30 MG Multivitamins (Multivitamin Tab) 1 tab QAM PO 09/25/16 09:00 10/25/16 08:59 10/04/16 08:19 1 TAB Metoclopramide HCl (Reglan Inj) 10 mg Q6H PRN IV 09/25/16 12:45 09/27/16 09:20 DC 09/26/16 11:21 10 MG Vancomycin HCl 750 mg/Sodium Chloride 165 ml @ 75 mls/hr TODAY@1530 ONCE IV 09/25/16 15:30 09/25/16 17:41 DC 09/25/16 15:58 75 MLS/HR Heparin Sodium (Porcine) (Heparin 100 Unit/ml 5ml Flush) 5 ml STK-MED ONCE .ROUTE 09/25/16 18:18 09/25/16 18:19 DC 09/25/16 18:18 5 ML Enteral Nutritional Formula (Novasource Renal) 1,000 ml UD ND 09/26/16 18:00 09/28/16 09:21 DC 09/26/16 17:47 1,000 ML Metoclopramide HCl (Reglan Inj) 5 mg Q6H PRN IV 09/27/16 12:45 10/25/16 12:44 10/01/16 07:40 5 MG Prednisone (PredniSONE TAB) 5 mg DAILY PO 09/28/16 09:00 10/28/16 08:59 10/04/16 08:18 5 MG Lidocaine HCl (Xylocaine 1% Inj (Local)) 20 ml ONE ONCE INJ 09/27/16 11:09 09/27/16 11:15 DC 09/27/16 11:09 20 ML Heparin Sodium (Porcine) (Heparin Sod 5000u/ml(Porcine)) 16,000 unit ONE ONCE IV 09/27/16 11:15 09/27/16 11:24 DC 09/27/16 11:15 16,000 UNIT Enteral Nutritional Formula (Boost) 1 can BIDM PO 09/28/16 07:15 10/28/16 07:14 09/30/16 08:45 1 CAN Heparin Sodium (Porcine) (No Heparin In Dialysis) 1 ea TODAY@0800 N/A 09/28/16 08:00 09/28/16 18:02 DC 09/28/16 08:00 1 EA Ursodiol (Actigall Cap) 600 mg BID PO 09/28/16 21:00 10/28/16 20:59 10/04/16 08:18 600 MG Pantoprazole Sodium (Protonix Tab) 40 mg QAM PO 09/29/16 09:00 10/29/16 08:59 10/04/16 08:18 40 MG Imipenem/ Cilastatin Sodium 500 mg/Dextrose 110 ml @ 100 mls/hr AFTER HEMODIALYSIS ONCE IV 09/29/16 11:00 09/29/16 12:20 DC 09/29/16 15:46 100 MLS/HR Vancomycin HCl 1000 mg/Sodium Chloride 270 ml @ 125 mls/hr AFTER HEMODIALYSIS ONCE IV 09/29/16 11:00 09/29/16 13:09 DC 09/29/16 16:50 125 MLS/HR Fentanyl Citrate (Fentanyl Inj) 100 mcg STK-MED ONCE .ROUTE 09/29/16 09:28 09/29/16 09:29 DC 09/29/16 09:32 25 MCG Imipenem/ Cilastatin Sodium 500 mg/Dextrose 110 ml @ 100 mls/hr Q12H IV 09/30/16 04:00 10/10/16 03:59 10/04/16 03:52 100 MLS/HR Fentanyl Citrate (Fentanyl Inj) 25 mcg Q6 PRN IV 09/29/16 16:00 10/01/16 18:13 DC 10/01/16 14:13 25 MCG Vancomycin HCl 750 mg/Sodium Chloride 265 ml @ 125 mls/hr AFTER HEMODIALYSIS ONCE IV 09/30/16 11:00 09/30/16 13:07 DC 09/30/16 11:15 125 MLS/HR Albumin Human (Albumin 25%) 12.5 gm TODAY@0800,1200 IV 09/30/16 08:00 09/30/16 23:59 DC 09/30/16 14:15 12.5 GM Epoetin Ken 45809 units/ Syringe 0.6 ml @ 1 mls/min TODAY@0800 IV. 09/30/16 08:00 09/30/16 23:59 DC 09/30/16 14:36 1 MLS/MIN Oxycodone HCl (Roxicodone Immediate Rel Tab) 5 mg Q8H PRN PO 10/01/16 18:15 10/15/16 18:14 10/03/16 08:49 5 MG Oxycodone HCl (Roxicodone Immediate Rel Tab) 5 mg 1811 ONCE PO 10/01/16 18:11 10/01/16 18:21 DC 10/01/16 18:27 5 MG Hydromorphone HCl (Dilaudid Inj) 0.25 mg Q4H PRN IV 10/01/16 18:15 10/15/16 18:14 10/03/16 13:05 0.25 MG Non-Formulary Medication (Obeticholic Acid (Ocaliva)) 5 mg Sa@0900 PO 10/02/16 14:00 11/01/16 13:59 10/02/16 13:47 5 MG Heparin Sodium (Porcine) (No Heparin In Dialysis) 1 ea ONE ONCE N/A 10/02/16 07:30 10/02/16 07:56 DC 10/02/16 07:30 1 EA Vancomycin HCl 1000 mg/Sodium Chloride 270 ml @ 125 mls/hr AFTER HEMODIALYSIS ONCE IV 10/02/16 13:00 10/02/16 15:09 DC 10/02/16 13:47 125 MLS/HR Subjective Patient was rounded on at bedside. She was only able to shake her head in response to questions. She denies cough or dyspnea. She had no major GI complaints, but could only say the word fair when asked about current status. Vital Signs Vital Signs Past 12 Hours Date Time Temp Pulse Resp B/P (MAP) Pulse Ox O2 Delivery O2 Flow Rate FiO2 10/04/16 12:04 37.1 75 20 140/65 (90) 92 Room Air 10/04/16 11:49 Room Air 10/04/16 08:00 Room Air 10/04/16 07:13 36.9 89 120/52 (74) 97 Nasal Cannula 1.0 10/04/16 04:00 Room Air 10/04/16 03:48 36.9 87 21 126/55 (78) 94 Room Air Physical Exam Constitutional: Level of Distress: NAD, chronically ill Head: normocephalic ENMT: hearing grossly normal Lungs: Respiratory Effort: no dyspnea Auscuitation: no wheezing, no rales/crackles Cardiovascular: Heart Auscultation: RRR Abdomen: Bowel Sounds: normal Inspection & Palpation: soft, non-distended, no tenderness, guarding & rebound Extremities: no edema Laboratory 10/01/16 12:45 10/02/16 05:15 Red Blood Count 2.41, Mean Corpuscular Volume 92.5, Mean Corpuscular Hemoglobin 31.1, Mean Corpuscular Hemoglobin Concent 33.6, Mean Platelet Volume 11.4, Neutrophils (%) (Auto) 81.0, Lymphocytes (%) (Auto) 6.8, Monocytes (%) (Auto) 9.0, Eosinophils (%) (Auto) 2.6, Basophils (%) (Auto) 0.1, Neutrophils # (Auto) 10.36, Lymphocytes # (Auto) 0.87, Monocytes # (Auto) 1.15, Eosinophils # (Auto) 0.33, Basophils # (Auto) 0.01 10/03/16 07:39 Red Blood Count 3.20, Mean Corpuscular Volume 90.0, Mean Corpuscular Hemoglobin 29.7, Mean Corpuscular Hemoglobin Concent 33.0, Mean Platelet Volume 10.7, Neutrophils (%) (Auto) 83.4, Lymphocytes (%) (Auto) 5.4, Monocytes (%) (Auto) 8.7, Eosinophils (%) (Auto) 1.9, Basophils (%) (Auto) 0.1, Neutrophils # (Auto) 10.75, Lymphocytes # (Auto) 0.69, Monocytes # (Auto) 1.12, Eosinophils # (Auto) 0.25, Basophils # (Auto) 0.01 10/04/16 05:30 Red Blood Count 3.09, Mean Corpuscular Volume 90.3, Mean Corpuscular Hemoglobin 30.4, Mean Corpuscular Hemoglobin Concent 33.7, Mean Platelet Volume 10.0, Neutrophils (%) (Auto) 79.7, Lymphocytes (%) (Auto) 7.6, Monocytes (%) (Auto) 8.4, Eosinophils (%) (Auto) 3.3, Basophils (%) (Auto) 0.3, Neutrophils # (Auto) 9.07, Lymphocytes # (Auto) 0.86, Monocytes # (Auto) 0.95, Eosinophils # (Auto) 0.38, Basophils # (Auto) 0.03 10/01/16 12:45 10/02/16 05:15 10/04/16 05:30 Test 10/01/16 12:45 10/01/16 16:46 10/01/16 20:37 10/02/16 05:15 Red Blood Count 2.71 M/uL (4.2-5.4) 2.41 M/uL (4.2-5.4) Mean Corpuscular Volume 91.9 fL (80-100) 92.5 fL (80-100) Mean Corpuscular Hemoglobin 29.5 pg (25-34) 31.1 pg (25-34) Mean Corpuscular Hemoglobin Concent 32.1 g/dl (32-36) 33.6 g/dl (32-36) RDW Standard Deviation 60.8 fL (36.4-46.3) 67.2 fL (36.4-46.3) RDW Coefficient of Variation 21.4 % (11.5-14.5) 21.5 % (11.5-14.5) Mean Platelet Volume 10.5 fL (7.4-10.4) 11.4 fL (7.4-10.4) Peripheral Blood Smear Path Consult Absolute Reticulocyte Count 0.20 10^6/uL (0.02-0.10) Percent Reticulocyte Count 7.5 % (0.5-2.0) Prothrombin Time 12.9 SECONDS (9.0-12.0) Prothromb Time International Ratio 1.2 (0.9-1.1) Anion Gap 8.0 mmol/L (3-11) 8.0 mmol/L (3-11) Est Creatinine Clear Calc Drug Dose 36.1 ml/min 30.7 ml/min Estimated GFR () 37.9 31.1 Estimated GFR (Non- 32.7 26.8 BUN/Creatinine Ratio 9.7 (10-20) 11.3 (10-20) Calcium Level 9.2 mg/dl (8.5-10.1) 9.2 mg/dl (8.5-10.1) Phosphorus Level 2.8 mg/dl (2.5-4.9) 3.7 mg/dl (2.5-4.9) Magnesium Level 2.1 mg/dl (1.8-2.4) 2.1 mg/dl (1.8-2.4) Total Bilirubin 8.9 mg/dl (0.2-1) 8.0 mg/dl (0.2-1) Direct Bilirubin 6.7 mg/dl (0-0.2) 6.0 mg/dl (0-0.2) Aspartate Amino Transf (AST/SGOT) 68 U/L (15-37) 55 U/L (15-37) Alanine Aminotransferase (ALT/SGPT) 50 U/L (12-78) 38 U/L (12-78) Alkaline Phosphatase 417 U/L (45-117) 382 U/L (45-117) Lactate Dehydrogenase 360 U/L (84-246) Total Protein 5.3 gm/dl (6.4-8.2) 4.7 gm/dl (6.4-8.2) Albumin 2.8 gm/dl (3.4-5.0) 2.4 gm/dl (3.4-5.0) Globulin 2.5 gm/dl (2.5-4.0) 2.3 gm/dl (2.5-4.0) Albumin/Globulin Ratio 1.1 (0.9-2) 1.0 (0.9-2) Bedside Glucose 121 mg/dl (70-90) 119 mg/dl (70-90) White Blood Count 12.78 K/uL (4.8-10.8) Hemoglobin 7.5 g/dL (12.0-16.0) Hematocrit 22.3 % (37-47) Platelet Count 114 K/uL (130-400) Neutrophils (%) (Auto) 81.0 % Lymphocytes (%) (Auto) 6.8 % Monocytes (%) (Auto) 9.0 % Eosinophils (%) (Auto) 2.6 % Basophils (%) (Auto) 0.1 % Neutrophils # (Auto) 10.36 K/uL (1.4-6.5) Lymphocytes # (Auto) 0.87 K/uL (1.2-3.4) Monocytes # (Auto) 1.15 K/uL (0.11-0.59) Eosinophils # (Auto) 0.33 K/uL (0-0.5) Basophils # (Auto) 0.01 K/uL (0-0.2) Immature Granulocyte % (Auto) 0.5 % Immature Granulocyte # (Auto) 0.06 K/uL (0.00-0.02) Basophilic Stippling 2+ Anisocytosis PRESENT Lactic Acid Level 0.8 mmol/L (0.4-2.0) Random Vancomycin Level 12.5 mcg/ml Test 10/02/16 16:16 10/03/16 04:08 10/03/16 07:39 10/04/16 05:30 Iron Level 108 mcg/dl (35-150) Total Iron Binding Capacity 151 mcg/dl (250-450) Transferrin 97 mg/dl (200-360) Transferrin % Saturation 80 % (15-50) Ferritin 237.2 ng/ml (8.0-388.0) Vitamin B12 Level > 2000 pg/mL (211-911) Folate 9.27 ng/mL (>5.38) Total Bilirubin 8.8 mg/dl (0.2-1) 8.9 mg/dl (0.2-1) Direct Bilirubin 6.5 mg/dl (0-0.2) 6.7 mg/dl (0-0.2) Aspartate Amino Transf (AST/SGOT) 61 U/L (15-37) 49 U/L (15-37) Alanine Aminotransferase (ALT/SGPT) 36 U/L (12-78) 22 U/L (12-78) Alkaline Phosphatase 428 U/L (45-117) 443 U/L (45-117) Total Protein 4.9 gm/dl (6.4-8.2) 4.8 gm/dl (6.4-8.2) Albumin 2.5 gm/dl (3.4-5.0) 2.3 gm/dl (3.4-5.0) Lipase 269 U/L (73-393) Random Vancomycin Level 22.2 mcg/ml White Blood Count 12.88 K/uL (4.8-10.8) 11.37 K/uL (4.8-10.8) Red Blood Count 3.20 M/uL (4.2-5.4) 3.09 M/uL (4.2-5.4) Hemoglobin 9.5 g/dL (12.0-16.0) 9.4 g/dL (12.0-16.0) Hematocrit 28.8 % (37-47) 27.9 % (37-47) Mean Corpuscular Volume 90.0 fL (80-100) 90.3 fL (80-100) Mean Corpuscular Hemoglobin 29.7 pg (25-34) 30.4 pg (25-34) Mean Corpuscular Hemoglobin Concent 33.0 g/dl (32-36) 33.7 g/dl (32-36) Platelet Count 106 K/uL (130-400) 105 K/uL (130-400) Mean Platelet Volume 10.7 fL (7.4-10.4) 10.0 fL (7.4-10.4) Neutrophils (%) (Auto) 83.4 % 79.7 % Lymphocytes (%) (Auto) 5.4 % 7.6 % Monocytes (%) (Auto) 8.7 % 8.4 % Eosinophils (%) (Auto) 1.9 % 3.3 % Basophils (%) (Auto) 0.1 % 0.3 % Neutrophils # (Auto) 10.75 K/uL (1.4-6.5) 9.07 K/uL (1.4-6.5) Lymphocytes # (Auto) 0.69 K/uL (1.2-3.4) 0.86 K/uL (1.2-3.4) Monocytes # (Auto) 1.12 K/uL (0.11-0.59) 0.95 K/uL (0.11-0.59) Eosinophils # (Auto) 0.25 K/uL (0-0.5) 0.38 K/uL (0-0.5) Basophils # (Auto) 0.01 K/uL (0-0.2) 0.03 K/uL (0-0.2) RDW Standard Deviation 66.3 fL (36.4-46.3) 70.6 fL (36.4-46.3) RDW Coefficient of Variation 22.2 % (11.5-14.5) 22.7 % (11.5-14.5) Immature Granulocyte % (Auto) 0.5 % 0.7 % Immature Granulocyte # (Auto) 0.06 K/uL (0.00-0.02) 0.08 K/uL (0.00-0.02) Anisocytosis PRESENT Target Cells 2+ 1+ Echinocytes 1+ 3+ Polychromasia 1+ Basophilic Stippling 1+ Anion Gap 8.0 mmol/L (3-11) Est Creatinine Clear Calc Drug Dose 28.2 ml/min Estimated GFR () 27.7 Estimated GFR (Non- 23.9 BUN/Creatinine Ratio 10.5 (10-20) Calcium Level 9.6 mg/dl (8.5-10.1) Magnesium Level 2.0 mg/dl (1.8-2.4) Date/Time Source Procedure Growth Status 10/01/16 12:45 Blood Parasitology Test - Final Complete Liver US from 10/03/16: 1. Limited exam as above secondary to patient condition. 2. Cirrhotic liver disease with mild volume right upper quadrant ascites. 3. Patency of the portal and hepatic veins as well as the TIPS shunt. 4. Mild dilation of the common bile duct, 0.8 cm without obstructing stone ormass identified. Assessment & Plan 1. Anemia of multiple mechanisms * Patient has esophageal varices, S/P TIPS , underwent right shoulder surgery, postoperative course complicated by acute on chronic renal failure, volume overload, hepatic encephalopathy, requiring dialysis support * Had baseline hemoglobin around 8-9 g/dL before the surgery * Recently hemoglobin level dropped down to around 5.6 g/dL on 09/29/2016, stool for occult blood testing positive, CT scan of the abdomen and pelvis showed no evidence of retroperitoneal hematoma * Most likely she had GI blood loss * No iron deficiency, vit B 12 or folate deficiency * Received 3 units of PRBC- last PRBC 10/02/16 * Direct Sonu test negative, elevated LDH level noted, reticulocytosis noted suggest bone marrow is appropriately responding- hapto level pending (may have mild hemolysis with the worsening liver function test, abnormal kidney function test with recent hemodialysis but not expecting significant drop due to this) * She is receiving Procrit therapy under the guidance of Nephrology * Should receive blood transfusion as needed to maintain hemoglobin level around 7-8 g/dL * Hgb stable in 9 g/dL range for past over weekend/today * Continue to trend CBCD daily 2. Thrombocytopenia * No splenomegaly by imaging * No vit B 12 or folate deficiency * Not a consistent issue prior to hospitalization * May be element of marrow suppression with hospitalization for infection Other active problems during hospitalization: possible aspiration PNA, primary biliary cirrhosis Dr. Carson is attending [employer] football [employer]. I performed history and physical examination of the patient. I have discussed the patient's case, impression and plan with Nidia Darden PA-C. Her note reflects my findings and plan. Dr. Robby Carson Hem/Onc
--- NOTE | 2016-10-04 16:24 | Progress Note ---
Internal Med Progress Note Date of Service: Oct 04, 2016. Provider Documentation: SUBJECTIVE: DENIES SOB OR ANY PAIN AFEBRILE NO COUGH EATING OK NO BOWEL MOVEMENT TODAY OBJECTIVE: Vital Signs-as noted below Exam: General-alert and oriented. Not in distress ENT-normal hearing Neck-no neck masses Lungs-cta b/l no wheezing or crackles Heart-s1 and s2 heard regular rate and rhythm, no murmurs Abdomen-soft bowel sounds present non tender no distension Extremities- no erythema Neuro-alert and oriented moves extremities Lab data as noted below. ASSESSMENT & PLAN: 60f was admitted for right shoulder pain 6 weeks post ORIF of right proximal humerus and s/pcS/P RIGHT REVERSE TOTAL SHOULDER ARTHROPLASTY, REMOVAL OF DEEP HARDWARE RIGHT PROXIMAL HUMERUS, DEBRIDEMENT OF OLECRANON ULCER RIGHT ELBOW. Post op was complicated by volume overload and possible aspiration pneumonia with Resp failure requiring intubation. Her renal function worsened and requiring dialysis. Has hx of Biliary cirrhosis.Currently s/p extubation and saturating fine on room air. requiring midodrine to keep BP elevated. required prbc transfusion though no obvious signs of bleeding. Bilirubin elevated but no obstruction on Liver US. Gi and Nephrology following. May need skilled nursing dialysis as per nephrology. Plan for [facility] when more stable. Hypotension stable on midodrine continue same for now will monitor Acute hypoxic respiratory failure 09/20/16 secondary to fluid overload from IV fluids and albumin; Aspiration pneumonia? Required intubation/mechanical ventilation. Improved with dialysis. Extubated 09/24/16. Now oxygenating well and stable on room air. stable will monitor Hx of biliary cirrhosis with portal hypertension. GI and nutrition consulted. Bilirubin today 8.9. ON rifaximin. Restarted obeticholic acid. seen by GI today and appreciate inputs liver US10/03/16- no acute findings notified GI regarding increasing bilirubin levels. Chronic kidney disease stage 3 with acute kidney injury - ATN vs hepatorenal syndrome. Placement of hemodialysis catheter 09/27 and started on dialysis Management per Nephrology. 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 Head CT negative for acute event. currently stable Continue rifaximin for hepatic encephalopathy. stable currently Aspiration pneumonia? Received IV vancomycin and piperacillin/tazobactam for possible aspiration pneumonia. Receiving fluconazole for Melissa albicans noted in sputum and bronchial washings. Loose stools - negative for C. difficile 09/27. elevated wbc CT chest / abdomen / pelvis did not show any apparent source of infection. ID consulted. WBC today 12.8 currently on Primaxin and vanco #5 to complete 10 day course as per ID Anemia acute on chronic? Hemoglobin 9.5 on admission, fell as low as 5.6 on 09/29/16. No obvious GI bleeding, but stools heme +. CT abdomen and pelvis did not show any apparent retroperitoneal or intra- abdominal bleed. received 2units prbc hb 7.5 on 10/02/16 and received one more unit of prbc hb 9.4 today Thrombocytopenia platelets 106 today hit studies negative GENERAL DEBILITATION Increase activity as tolerated. Depression? patient denies will monitor VTE PROPHYLAXIS SQ heparin stopped 09/28 due to thrombocytopenia / anemia. SCD's. DISPOSITION Transfer to medical floor plan for [facility] pt/ot social service for d/c planning Vital Signs: Date Time Temp Pulse Resp B/P (MAP) Pulse Ox O2 Delivery O2 Flow Rate FiO2 10/04/16 15:25 37.0 81 18 116/61 (79) 94 Room Air 10/04/16 12:04 37.1 75 20 140/65 (90) 92 Room Air 10/04/16 11:49 Room Air 10/04/16 08:00 Room Air 10/04/16 07:13 36.9 89 120/52 (74) 97 Nasal Cannula 1.0 10/04/16 04:00 Room Air 10/04/16 03:48 36.9 87 21 126/55 (78) 94 Room Air 10/03/16 23:59 Room Air 10/03/16 23:45 36.6 85 18 94/55 (68) 95 Room Air 10/03/16 20:00 Room Air 10/03/16 18:29 36.7 88 18 139/68 (91) 94 Room Air Lab Results: Results Past 24 Hours Test 10/04/16 05:30 Range/Units White Blood Count 11.37 4.8-10.8 K/uL Red Blood Count 3.09 4.2-5.4 M/uL Hemoglobin 9.4 12.0-16.0 g/dL Hematocrit 27.9 37-47 % Mean Corpuscular Volume 90.3 80-100 fL Mean Corpuscular Hemoglobin 30.4 25-34 pg Mean Corpuscular Hemoglobin Concent 33.7 32-36 g/dl Platelet Count 105 130-400 K/uL Mean Platelet Volume 10.0 7.4-10.4 fL Neutrophils (%) (Auto) 79.7 % Lymphocytes (%) (Auto) 7.6 % Monocytes (%) (Auto) 8.4 % Eosinophils (%) (Auto) 3.3 % Basophils (%) (Auto) 0.3 % Neutrophils # (Auto) 9.07 1.4-6.5 K/uL Lymphocytes # (Auto) 0.86 1.2-3.4 K/uL Monocytes # (Auto) 0.95 0.11-0.59 K/uL Eosinophils # (Auto) 0.38 0-0.5 K/uL Basophils # (Auto) 0.03 0-0.2 K/uL RDW Standard Deviation 70.6 36.4-46.3 fL RDW Coefficient of Variation 22.7 11.5-14.5 % Immature Granulocyte % (Auto) 0.7 % Immature Granulocyte # (Auto) 0.08 0.00-0.02 K/uL Polychromasia 1+ Basophilic Stippling 1+ Target Cells 1+ Echinocytes 3+ Sodium Level 135 136-145 mmol/L Potassium Level 3.3 3.5-5.1 mmol/L Chloride Level 100 98-107 mmol/L Carbon Dioxide Level 27 21-32 mmol/L Anion Gap 8.0 3-11 mmol/L Blood Urea Nitrogen 23 7-18 mg/dl Creatinine 2.20 0.60-1.20 mg/dl Est Creatinine Clear Calc Drug Dose 28.2 ml/min Estimated GFR () 27.7 Estimated GFR (Non- 23.9 BUN/Creatinine Ratio 10.5 10-20 Random Glucose 90 70-99 mg/dl Calcium Level 9.6 8.5-10.1 mg/dl Magnesium Level 2.0 1.8-2.4 mg/dl Total Bilirubin 8.9 0.2-1 mg/dl Direct Bilirubin 6.7 0-0.2 mg/dl Aspartate Amino Transf (AST/SGOT) 49 15-37 U/L Alanine Aminotransferase (ALT/SGPT) 22 12-78 U/L Alkaline Phosphatase 443 45-117 U/L Total Protein 4.8 6.4-8.2 gm/dl Albumin 2.3 3.4-5.0 gm/dl
--- NOTE | 2016-10-04 16:41 | Progress Note ---
Post ICU Progress Note Date & Time Oct 04, 2016 at 16:36 Vital Signs Vital Signs Past 12 Hours Date Time Temp Pulse Resp B/P (MAP) Pulse Ox O2 Delivery O2 Flow Rate FiO2 10/04/16 15:25 37.0 81 18 116/61 (79) 94 Room Air 10/04/16 12:04 37.1 75 20 140/65 (90) 92 Room Air 10/04/16 11:49 Room Air 10/04/16 08:00 Room Air 10/04/16 07:13 36.9 89 120/52 (74) 97 Nasal Cannula 1.0 Notes Mental Status: alert / awake Nausea / Vomiting: adequately controlled Pain: adequately controlled Airway Patency, RR, SpO2: stable & adequate BP & HR: stable & adequate Patient is a 60-year-old female who was initially admitted to the ICU for respiratory failure in the setting of hepatorenal syndrome. The patient ended up on dialysis. After an extended stay in the ICU with multiple complications, she was eventually transferred to telemetry and has subsequently moved to the surgical floor. The patient is eating a cookie as I evaluate her today. She reports that she feels much better at this point. She does remember me from previous interactions. The patient's labs have seemed to plateau. She is transitioning to 3 times weekly dialysis. She is intent to begin to attempts to ambulate. She hopes to be discharged home soon. Consider outpatient follow up in 1 to 2 weeks with: Specialists as directed. Repeat imaging needed: Per Primary Team Follow up cultures: None at this point. Reviewed progress notes, labs, and inpatient medication list Continue current management Additional recommendations: Would continue to communicate with Hepatology team at [facility] to "close the loop" for family. Please feel free to reconsult as needed Consults & Procedures Consultants: Gastroenterology: Dr. Noel Infectious diseases: Dr. Bergman Neurology: Dr. Dunn Nephrology: Dr. Thakkar Orthopedics: Dr. Fontenot Vascular: Dr. Rouse Wound care: Dr. Gamal Boyle PT OT Procedures: 09/17/16: Right reverse total shoulder arthroplasty, removal of deep hardware right proximal humerus, debridement of olecranon ulcer right elbow 09/20/16: Trialysis central catheter inserted 09/20/16: Echo 09/20/16: Intubated 8/15/17: Bronchoscopy 09/24/16: Midline inserted 09/24/16: Extubated 09/25/16: Trialysis removed 09/27/16: PermCath inserted 09/28/16: Midline leaking, removed 09/29/16: Right central line inserted
[2016-10-04 23:45] VITALS: BP 136/73; PULSE 73; TEMP 36.8; O2SAT 93
[2016-10-05] VITALS (18 sets, daily range): BP systolic 101–152; BP diastolic 45–84; PULSE 79–101; TEMP 36.6–36.8; O2SAT 93–94
[2016-10-05] MEDS: IMIPENEM/CILASTATIN IV 500 MG in DEXTROSE 5% 100ML 100 ML IV SCH ×2 (03:51→17:57)
[2016-10-05 05:47] LABS: BASO % 0.2 %; BASO ABS # 0.03 K/uL (0-0.2); EOS % 2.8 %; HEMATOCRIT 31.9 % (37-47); IG% 0.5 %; LYMPH % 8.7 %; LYMPH ABS # 1.12 K/uL (1.2-3.4); MEAN CELL VOLUME 90.1 fL (80-100); MEAN CORPUSCULAR HEMOGLOBIN 29.1 pg (25-34); MEAN CORPUSCULAR HGB CONC 32.3 g/dl (32-36); MEAN PLATELET VOLUME 10.9 fL (7.4-10.4); MONO % 7.6 %; NEUT % 80.2 %; PLATELET COUNT 128 K/uL (130-400); RED BLOOD COUNT 3.54 M/uL (4.2-5.4); WHITE BLOOD COUNT 12.87 K/uL (4.8-10.8)
[2016-10-05 06:25] LABS: ANISOCYTOSIS PRESENT; COMPLETE YES; ECHINOCYTES 2+
[2016-10-05 06:27] LABS: BUN/CREATININE RATIO 13.2 (10-20); CALCIUM 9.5 mg/dl (8.5-10.1); CREATININE 2.5 mg/dl (0.60-1.20); POTASSIUM 3.5 mmol/L (3.5-5.1)
[2016-10-05] MEDS: BOOST VANILLA PO SCH ×2 (08:30)
[2016-10-05] MEDS: MICONAZOLE NITRATE POWDER 43 GM EXT SCH ×2 (09:00→21:04)
[2016-10-05] MEDS: PANTOprazole SOD 40 MG TAB PO SCH (09:30)
[2016-10-05] MEDS: RIFAXIMIN TAB 550 MG TAB PO SCH ×2 (09:31→21:04)
[2016-10-05] MEDS: MIDODRINE 2.5 MG TAB PO SCH ×3 (09:31→18:01)
[2016-10-05] MEDS: MULTIVITAMIN TAB PO SCH (09:31)
[2016-10-05] MEDS: URSODIOL 300 MG CAP PO SCH ×2 (09:31→21:04)
[2016-10-05] MEDS: OXYCODONE HCL IR 5 MG TAB (IMMEDIATE RELEASE) PO PRN ×2 (09:37→17:58)
--- NOTE | 2016-10-05 10:30 | Pharmacy Progress Note ---
Pharmacy Abx Dose Short Note Date of Service Oct 05, 2016. Assessment & Plan Assessment * 60 year old female receiving VANCOMYCIN and PRIMAXIN IV for treatment of sepsis of unclear etiology, question of aspiration pnx * Day # 7 of 10 planned days antimicrobial therapy (but had received vancomycin IV 09/20 - 09/27 prior to vanco being restarted on 09/29; had received 7 days of Zosyn as well 09/20-09/27) * Currently afebrile, VSS, sat well on room air (93-94%), no cough or SOB * Continues on hemodialysis. Plan Vancomycin * Random AM level of 15.1 mcg/mL * Patient is to have hemodialysis treatment today which will lower this level even further * Vancomycin 750mg IV x 1 after HD today * Will recheck random level w/ AM labs tomorrow - plan is to redose when level is 15-20mcg/mL or when level anticipated to be between 15-20 after dialysis Primaxin * No change in dose required; continue 500mg IV Q 12 hours, doses to be administered after dialysis if dose is due before or during treatment Pharmacy will continue to follow and will adjust dose/frequency as necessary. Thank you.
--- NOTE | 2016-10-05 11:28 | Gastroenterology Progress Note ---
Progress Note Date of Service: Oct 05, 2016 Subjective Pt evaluation today including: conversation w/ patient, physical exam, chart review, lab review, review of studies, review of inpatient medication list Ms. hCildress is a 60 yr old female with PBC who underwent shoulder surgery then experienced decompensation of liver disease. MELD today 27 but would expect to improve as she recovers from surgery. Pt denies any symptoms of cholangitis: no fevers, chills or general body aches. She is awake, alert, oriented, eating well. Review of Systems Constitutional: No fever Eyes: No worsening of vision ENT: No hearing loss Respiratory: No cough Cardiac: No chest pain Musculoskeletal: + problem reported (right shoulder pain S/P surgery) Female : No dysuria Neuro: No memory loss Psych: No depression symptoms Heme: No abnormal bleeding/bruising Endo: No fatigue Skin: No rash Medications Current Inpatient Medications Medications (Trade) Dose Ordered Sig/Michael Route Start Time Stop Time Status Last Admin Dose Admin Miconazole Nitrate (Desenex Powder) 1 appln BID EXT 09/17/16 21:00 10/17/16 20:59 10/04/16 21:06 1 APPLN Midodrine (Proamatine Tab) 5 mg TID@0800,1200,1800 PO 09/19/16 18:00 10/19/16 17:59 10/05/16 09:31 5 MG Levalbuterol (Xopenex 0.63 Mg/ 3 Ml Neb) 0.63 mg Q6H PRN INH 09/20/16 08:30 10/20/16 08:29 Rifaximin (Xifaxan Tab) 550 mg BID PO 09/22/16 21:00 10/22/16 20:59 10/05/16 09:31 550 MG Multivitamins (Multivitamin Tab) 1 tab QAM PO 09/25/16 09:00 10/25/16 08:59 10/05/16 09:31 1 TAB Heparin Sodium (Porcine) (Heparin 10 Unit/ ml 5 ml Flush) 5 ml PRN PRN FLUSH 09/25/16 02:00 10/25/16 01:59 10/05/16 05:32 5 ML Metoclopramide HCl (Reglan Inj) 5 mg Q6H PRN IV 09/27/16 12:45 10/25/16 12:44 10/01/16 07:40 5 MG Prednisone (PredniSONE TAB) 5 mg DAILY PO 09/28/16 09:00 10/28/16 08:59 10/05/16 09:30 5 MG Enteral Nutritional Formula (Boost) 1 can BIDM PO 09/28/16 07:15 10/28/16 07:14 09/30/16 08:45 1 CAN Ursodiol (Actigall Cap) 600 mg BID PO 09/28/16 21:00 10/28/16 20:59 10/05/16 09:31 600 MG Pantoprazole Sodium (Protonix Tab) 40 mg QAM PO 09/29/16 09:00 10/29/16 08:59 10/05/16 09:30 40 MG Vancomycin HCl (Consult) 1 ea UD PRN N/A 09/29/16 08:45 10/08/16 23:59 Imipenem/ Cilastatin Sodium (Consult) 1 ea UD N/A 09/29/16 09:19 10/29/16 09:18 Imipenem/ Cilastatin Sodium 500 mg/Dextrose 110 ml @ 100 mls/hr Q12H IV 09/30/16 04:00 10/10/16 03:59 10/05/16 03:51 100 MLS/HR Oxycodone HCl (Roxicodone Immediate Rel Tab) 5 mg Q8H PRN PO 10/01/16 18:15 10/15/16 18:14 10/05/16 09:37 5 MG Hydromorphone HCl (Dilaudid Inj) 0.25 mg Q4H PRN IV 10/01/16 18:15 10/15/16 18:14 10/03/16 13:05 0.25 MG Non-Formulary Medication (Obeticholic Acid (Ocaliva)) 5 mg Sa@0900 PO 10/02/16 14:00 11/01/16 13:59 10/02/16 13:47 5 MG Vancomycin HCl 750 mg/Sodium Chloride 115 ml @ 53 mls/hr AFTER HEMODIALYSIS ONCE IV 10/05/16 12:00 10/05/16 14:10 Objective Vital Signs Date Time Temp Pulse Resp B/P (MAP) Pulse Ox O2 Delivery O2 Flow Rate FiO2 10/05/16 11:00 86 135/61 10/05/16 10:46 82 129/65 10/05/16 10:34 36.6 82 128/68 (88) 10/05/16 07:27 36.8 89 18 152/84 (106) 93 Room Air 10/05/16 07:16 Room Air 10/04/16 23:45 36.8 73 16 136/73 (94) 93 Room Air 10/04/16 23:30 Room Air 10/04/16 15:45 Room Air 10/04/16 15:25 37.0 81 18 116/61 (79) 94 Room Air 10/04/16 12:04 37.1 75 20 140/65 (90) 92 Room Air 10/04/16 11:49 Room Air Physical Exam General Appearance: no apparent distress Neck: no JVD Respiratory/Chest: lungs clear Cardiovascular: regular rate, rhythm, no murmur Abdomen: normal bowel sounds, non tender, soft Neurologic/Psych: alert Skin: + jaundice Laboratory Results Last 24 Hours Test 10/05/16 05:35 White Blood Count 12.87 K/uL Red Blood Count 3.54 M/uL Hemoglobin 10.3 g/dL Hematocrit 31.9 % Mean Corpuscular Volume 90.1 fL Mean Corpuscular Hemoglobin 29.1 pg Mean Corpuscular Hemoglobin Concent 32.3 g/dl Platelet Count 128 K/uL Mean Platelet Volume 10.9 fL Neutrophils (%) (Auto) 80.2 % Lymphocytes (%) (Auto) 8.7 % Monocytes (%) (Auto) 7.6 % Eosinophils (%) (Auto) 2.8 % Basophils (%) (Auto) 0.2 % Neutrophils # (Auto) 10.32 K/uL Lymphocytes # (Auto) 1.12 K/uL Monocytes # (Auto) 0.98 K/uL Eosinophils # (Auto) 0.36 K/uL Basophils # (Auto) 0.03 K/uL RDW Standard Deviation 71.1 fL RDW Coefficient of Variation 22.9 % Immature Granulocyte % (Auto) 0.5 % Immature Granulocyte # (Auto) 0.06 K/uL Anisocytosis PRESENT Echinocytes 2+ Sodium Level 135 mmol/L Potassium Level 3.5 mmol/L Chloride Level 99 mmol/L Carbon Dioxide Level 27 mmol/L Anion Gap 9.0 mmol/L Blood Urea Nitrogen 33 mg/dl Creatinine 2.50 mg/dl Est Creatinine Clear Calc Drug Dose 24.8 ml/min Estimated GFR () 23.8 Estimated GFR (Non- 20.5 BUN/Creatinine Ratio 13.2 Random Glucose 83 mg/dl Calcium Level 9.5 mg/dl Magnesium Level 2.0 mg/dl Total Bilirubin 9.1 mg/dl Direct Bilirubin 7.3 mg/dl Aspartate Amino Transf (AST/SGOT) 48 U/L Alanine Aminotransferase (ALT/SGPT) 19 U/L Alkaline Phosphatase 470 U/L Total Protein 5.2 gm/dl Albumin 2.4 gm/dl Random Vancomycin Level 15.1 mcg/ml Assessment and Plan Ms. Childress is a 60 yr old female with PBC admitted for shoulder surgery, experienced with HRS, ventilated previously during this admission, undergoing dialysis. Ultrasound w/o PVT or hepatic vein clot, TIPS remains patent, no bile duct obstruction. Lipase WNL.MELD currently 27 and she has missed a scheduled appt for eval for liver/kidney transplant. Though T bili still continuing to slowly increase, she is stable and should be allowed time to recover from surgery, from pulmonary candidiasis then again be set up for appt in [place] for consideration for liver/kidney transplant.
[2016-10-05] MEDS ORDERED: VANCOMYCIN IV ONE (12:00)
[2016-10-05] MEDS ORDERED: SODIUM CHLORIDE 0.9% IV ONE (12:00)
[2016-10-05] MEDS ORDERED: BOOST VANILLA PO SCH ×2 (15:00)
--- NOTE | 2016-10-05 15:58 | Nephrology Progress Note ---
Nephrology Progress Note Date of Service: Oct 05, 2016. Subjective 60 yo female with biliary cirrhosis with ileana/atn. pt with intermittent nausea which worsens on dialysis. tolerated dialysis well today. removed 2 liters. Objective Date Time Temp Pulse Resp B/P (MAP) Pulse Ox O2 Delivery O2 Flow Rate FiO2 10/05/16 13:52 36.6 95 123/61 (81) 10/05/16 13:45 95 106/55 10/05/16 13:30 93 110/55 10/05/16 13:15 93 105/62 10/05/16 13:00 92 125/60 10/05/16 12:45 92 117/70 10/05/16 12:30 87 109/60 10/05/16 12:15 88 113/53 10/05/16 12:00 101 119/63 10/05/16 11:45 87 120/45 10/05/16 11:30 86 101/46 10/05/16 11:15 83 109/58 10/05/16 11:00 86 135/61 10/05/16 10:46 82 129/65 10/05/16 10:34 36.6 82 128/68 (88) 10/05/16 07:27 36.8 89 18 152/84 (106) 93 Room Air 10/05/16 07:16 Room Air 10/04/16 23:45 36.8 73 16 136/73 (94) 93 Room Air 10/04/16 23:30 Room Air Physical Exam: General-jaundiced Eyes-+scleral icterus ENT-mmm Neck-supple Lungs-clear Heart-regular Abdomen-bs+/soft Extremities-no edema, right arm in sling Neuro-nonfocal Current Inpatient Medications Medications (Trade) Dose Ordered Sig/Michael Route Start Time Stop Time Status Last Admin Dose Admin Miconazole Nitrate (Desenex Powder) 1 appln BID EXT 09/17/16 21:00 10/17/16 20:59 10/04/16 21:06 1 APPLN Midodrine (Proamatine Tab) 5 mg TID@0800,1200,1800 PO 09/19/16 18:00 10/19/16 17:59 10/05/16 12:50 5 MG Levalbuterol (Xopenex 0.63 Mg/ 3 Ml Neb) 0.63 mg Q6H PRN INH 09/20/16 08:30 10/20/16 08:29 Rifaximin (Xifaxan Tab) 550 mg BID PO 09/22/16 21:00 10/22/16 20:59 10/05/16 09:31 550 MG Multivitamins (Multivitamin Tab) 1 tab QAM PO 09/25/16 09:00 10/25/16 08:59 10/05/16 09:31 1 TAB Heparin Sodium (Porcine) (Heparin 10 Unit/ ml 5 ml Flush) 5 ml PRN PRN FLUSH 09/25/16 02:00 10/25/16 01:59 10/05/16 05:32 5 ML Metoclopramide HCl (Reglan Inj) 5 mg Q6H PRN IV 09/27/16 12:45 10/25/16 12:44 10/01/16 07:40 5 MG Prednisone (PredniSONE TAB) 5 mg DAILY PO 09/28/16 09:00 10/28/16 08:59 10/05/16 09:30 5 MG Ursodiol (Actigall Cap) 600 mg BID PO 09/28/16 21:00 10/28/16 20:59 10/05/16 09:31 600 MG Pantoprazole Sodium (Protonix Tab) 40 mg QAM PO 09/29/16 09:00 10/29/16 08:59 10/05/16 09:30 40 MG Vancomycin HCl (Consult) 1 ea UD PRN N/A 09/29/16 08:45 10/08/16 23:59 Imipenem/ Cilastatin Sodium (Consult) 1 ea UD N/A 09/29/16 09:19 10/29/16 09:18 Imipenem/ Cilastatin Sodium 500 mg/Dextrose 110 ml @ 100 mls/hr Q12H IV 09/30/16 04:00 10/10/16 03:59 10/05/16 03:51 100 MLS/HR Oxycodone HCl (Roxicodone Immediate Rel Tab) 5 mg Q8H PRN PO 10/01/16 18:15 10/15/16 18:14 10/05/16 09:37 5 MG Hydromorphone HCl (Dilaudid Inj) 0.25 mg Q4H PRN IV 10/01/16 18:15 10/15/16 18:14 10/03/16 13:05 0.25 MG Non-Formulary Medication (Obeticholic Acid (Ocaliva)) 5 mg Sa@0900 PO 10/02/16 14:00 11/01/16 13:59 10/02/16 13:47 5 MG Last 24 Hours Test 10/05/16 05:35 White Blood Count 12.87 K/uL Red Blood Count 3.54 M/uL Hemoglobin 10.3 g/dL Hematocrit 31.9 % Mean Corpuscular Volume 90.1 fL Mean Corpuscular Hemoglobin 29.1 pg Mean Corpuscular Hemoglobin Concent 32.3 g/dl Platelet Count 128 K/uL Mean Platelet Volume 10.9 fL Neutrophils (%) (Auto) 80.2 % Lymphocytes (%) (Auto) 8.7 % Monocytes (%) (Auto) 7.6 % Eosinophils (%) (Auto) 2.8 % Basophils (%) (Auto) 0.2 % Neutrophils # (Auto) 10.32 K/uL Lymphocytes # (Auto) 1.12 K/uL Monocytes # (Auto) 0.98 K/uL Eosinophils # (Auto) 0.36 K/uL Basophils # (Auto) 0.03 K/uL RDW Standard Deviation 71.1 fL RDW Coefficient of Variation 22.9 % Immature Granulocyte % (Auto) 0.5 % Immature Granulocyte # (Auto) 0.06 K/uL Anisocytosis PRESENT Echinocytes 2+ Sodium Level 135 mmol/L Potassium Level 3.5 mmol/L Chloride Level 99 mmol/L Carbon Dioxide Level 27 mmol/L Anion Gap 9.0 mmol/L Blood Urea Nitrogen 33 mg/dl Creatinine 2.50 mg/dl Est Creatinine Clear Calc Drug Dose 24.8 ml/min Estimated GFR () 23.8 Estimated GFR (Non- 20.5 BUN/Creatinine Ratio 13.2 Random Glucose 83 mg/dl Calcium Level 9.5 mg/dl Magnesium Level 2.0 mg/dl Total Bilirubin 9.1 mg/dl Direct Bilirubin 7.3 mg/dl Aspartate Amino Transf (AST/SGOT) 48 U/L Alanine Aminotransferase (ALT/SGPT) 19 U/L Alkaline Phosphatase 470 U/L Total Protein 5.2 gm/dl Albumin 2.4 gm/dl Random Vancomycin Level 15.1 mcg/ml Assessment & Plan ileana-atn vs HRS-continue intermittent three days a week dialysis. does not have esrd at this time. will speak with hospitalist about exterminator termite plans. question if she is a candidate for [facility] or not. looking for signs of renal recovery. for now, continue dialysis and follow volume status and electrolytes.
--- NOTE | 2016-10-05 16:08 | Progress Note ---
Internal Med Progress Note Date of Service: Oct 05, 2016. Provider Documentation: SUBJECTIVE: denies sob \no nausea ate ok as per son afebrile not ambulating or getting up from bed does not like boost-open to trying different drink OBJECTIVE: Vital Signs-as noted below Exam: General-alert and oriented. Not in distress ENT-normal hearing Neck-no neck masses Lungs-cta b/l no wheezing or crackles Heart-s1 and s2 heard regular rate and rhythm, no murmurs Abdomen-soft bowel sounds present non tender no distension Extremities- no erythema Neuro-alert and oriented moves extremities Lab data as noted below. ASSESSMENT & PLAN: 60f was admitted for right shoulder pain 6 weeks post ORIF of right proximal humerus and s/pcS/P RIGHT REVERSE TOTAL SHOULDER ARTHROPLASTY, REMOVAL OF DEEP HARDWARE RIGHT PROXIMAL HUMERUS, DEBRIDEMENT OF OLECRANON ULCER RIGHT ELBOW. Post op was complicated by volume overload and possible aspiration pneumonia with Resp failure requiring intubation. Her renal function worsened and requiring dialysis.Hepatorenal syndrome? Has hx of Biliary cirrhosis.Currently s/p extubation and saturating fine on room air. requiring midodrine to keep BP elevated. required prbc transfusion though no obvious signs of bleeding. Bilirubin elevated but no obstruction on Liver US. Gi and Nephrology following. May need terminal supervisor dialysis as per nephrology. Plan for [facility] when more stable.Liliana keep climbing BUt GI want to wait and see. Gi recommends f/u with liver/kidney transplant at [place]. Hypotension stable on midodrine continue same for now stable now will monitor Acute hypoxic respiratory failure 09/20/16 secondary to fluid overload from IV fluids and albumin; Aspiration pneumonia? Required intubation/mechanical ventilation. Improved with dialysis. Extubated 09/24/16. Now oxygenating well and stable on room air. stable will monitor Hx of biliary cirrhosis with portal hypertension. GI and nutrition consulted. Bilirubin today 9.1. ON rifaximin. Restarted obeticholic acid. seen by GI today and appreciate inputs liver US10/03/16- no acute findings notified GI regarding increasing bilirubin levels- mostly from ongoing illness and to wait for recovery Chronic kidney disease stage 3 with acute kidney injury - ATN vs hepatorenal syndrome. Placement of hemodialysis catheter 09/27 and started on dialysis Management per Nephrology. May need terminal supervisor dialysis altered mental status/encephalopathy secondary to multifactorial delirium. Head CT negative for acute event. currently stable Continue rifaximin for hepatic encephalopathy. stable currently Aspiration pneumonia? Received IV vancomycin and piperacillin/tazobactam for possible aspiration pneumonia. Receiving fluconazole for Melissa albicans noted in sputum and bronchial washings. Loose stools - negative for C. difficile 09/27. elevated wbc CT chest / abdomen / pelvis did not show any apparent source of infection. ID consulted. WBC today 12.8 currently on Primaxin and vanco #6 to complete 10 day course as per ID Anemia acute on chronic? Hemoglobin 9.5 on admission, fell as low as 5.6 on 09/29/16. No obvious GI bleeding, but stools heme +. CT abdomen and pelvis did not show any apparent retroperitoneal or intra- abdominal bleed. received 2units prbc hb 7.5 on 10/02/16 and received one more unit of prbc hb 10.3 today Thrombocytopenia platelets 106 today hit studies negative GENERAL DEBILITATION Increase activity as tolerated. Malnutrition nutrition consult not liking boost may try different drink Depression? patient denies will monitor VTE PROPHYLAXIS SQ heparin stopped 09/28 due to thrombocytopenia / anemia. SCD's. DISPOSITION monitor [facility] need to participate in pt/ot social service for d/c planning Vital Signs: Date Time Temp Pulse Resp B/P (MAP) Pulse Ox O2 Delivery O2 Flow Rate FiO2 10/05/16 13:52 36.6 95 123/61 (81) 10/05/16 13:45 95 106/55 10/05/16 13:30 93 110/55 10/05/16 13:15 93 105/62 10/05/16 13:00 92 125/60 10/05/16 12:45 92 117/70 10/05/16 12:30 87 109/60 10/05/16 12:15 88 113/53 10/05/16 12:00 101 119/63 10/05/16 11:45 87 120/45 10/05/16 11:30 86 101/46 10/05/16 11:15 83 109/58 10/05/16 11:00 86 135/61 10/05/16 10:46 82 129/65 10/05/16 10:34 36.6 82 128/68 (88) 10/05/16 07:27 36.8 89 18 152/84 (106) 93 Room Air 10/05/16 07:16 Room Air 10/04/16 23:45 36.8 73 16 136/73 (94) 93 Room Air 10/04/16 23:30 Room Air Lab Results: Results Past 24 Hours Test 10/05/16 05:35 Range/Units White Blood Count 12.87 4.8-10.8 K/uL Red Blood Count 3.54 4.2-5.4 M/uL Hemoglobin 10.3 12.0-16.0 g/dL Hematocrit 31.9 37-47 % Mean Corpuscular Volume 90.1 80-100 fL Mean Corpuscular Hemoglobin 29.1 25-34 pg Mean Corpuscular Hemoglobin Concent 32.3 32-36 g/dl Platelet Count 128 130-400 K/uL Mean Platelet Volume 10.9 7.4-10.4 fL Neutrophils (%) (Auto) 80.2 % Lymphocytes (%) (Auto) 8.7 % Monocytes (%) (Auto) 7.6 % Eosinophils (%) (Auto) 2.8 % Basophils (%) (Auto) 0.2 % Neutrophils # (Auto) 10.32 1.4-6.5 K/uL Lymphocytes # (Auto) 1.12 1.2-3.4 K/uL Monocytes # (Auto) 0.98 0.11-0.59 K/uL Eosinophils # (Auto) 0.36 0-0.5 K/uL Basophils # (Auto) 0.03 0-0.2 K/uL RDW Standard Deviation 71.1 36.4-46.3 fL RDW Coefficient of Variation 22.9 11.5-14.5 % Immature Granulocyte % (Auto) 0.5 % Immature Granulocyte # (Auto) 0.06 0.00-0.02 K/uL Anisocytosis PRESENT Echinocytes 2+ Sodium Level 135 136-145 mmol/L Potassium Level 3.5 3.5-5.1 mmol/L Chloride Level 99 98-107 mmol/L Carbon Dioxide Level 27 21-32 mmol/L Anion Gap 9.0 3-11 mmol/L Blood Urea Nitrogen 33 7-18 mg/dl Creatinine 2.50 0.60-1.20 mg/dl Est Creatinine Clear Calc Drug Dose 24.8 ml/min Estimated GFR () 23.8 Estimated GFR (Non- 20.5 BUN/Creatinine Ratio 13.2 10-20 Random Glucose 83 70-99 mg/dl Calcium Level 9.5 8.5-10.1 mg/dl Magnesium Level 2.0 1.8-2.4 mg/dl Total Bilirubin 9.1 0.2-1 mg/dl Direct Bilirubin 7.3 0-0.2 mg/dl Aspartate Amino Transf (AST/SGOT) 48 15-37 U/L Alanine Aminotransferase (ALT/SGPT) 19 12-78 U/L Alkaline Phosphatase 470 45-117 U/L Total Protein 5.2 6.4-8.2 gm/dl Albumin 2.4 3.4-5.0 gm/dl Random Vancomycin Level 15.1 mcg/ml
[2016-10-05] MEDS: BOOST VANILLA PUDDING CUP PO SCH (18:29)
[2016-10-06] MEDS: IMIPENEM/CILASTATIN IV 500 MG in DEXTROSE 5% 100ML 100 ML IV SCH ×2 (03:50→16:33)
[2016-10-06 06:32] LABS: MEAN CORPUSCULAR HGB CONC 32.2 g/dl (32-36)
[2016-10-06 06:38] LABS: HEMATOCRIT 33.2 % (37-47); MEAN CORPUSCULAR HEMOGLOBIN 29.3 pg (25-34); RED BLOOD COUNT 3.65 M/uL (4.2-5.4); WHITE BLOOD COUNT 13.07 K/uL (4.8-10.8)
[2016-10-06 07:10] LABS: BUN/CREATININE RATIO 10.8 (10-20); MEAN PLATELET VOLUME 10.8 fL (7.4-10.4); PLATELET COUNT 107 K/uL (130-400); POTASSIUM 3.6 mmol/L (3.5-5.1)
[2016-10-06 07:14] LABS: ANISOCYTOSIS PRESENT; BASO % 0.3 %; BASO ABS # 0.04 K/uL (0-0.2); COMPLETE YES; ECHINOCYTES 2+; EOS % 2.5 %; IG% 0.3 %; LYMPH ABS # 1.31 K/uL (1.2-3.4); MONO % 8.3 %; NEUT % 78.6 %; PLT ESTIMATE DECREASED; POLYCHROMASIA 1+
[2016-10-06 07:32] VITALS: BP 138/78; PULSE 90; TEMP 36.4; O2SAT 95
[2016-10-06] MEDS: URSODIOL 300 MG CAP PO SCH ×2 (08:49→21:59)
[2016-10-06] MEDS: MULTIVITAMIN TAB PO SCH (08:50)
[2016-10-06] MEDS: PANTOprazole SOD 40 MG TAB PO SCH (08:50)
[2016-10-06] MEDS: RIFAXIMIN TAB 550 MG TAB PO SCH ×2 (08:51→21:58)
[2016-10-06 08:53] VITALS: BP 135/81
[2016-10-06] MEDS: MIDODRINE 2.5 MG TAB PO SCH ×3 (08:55→18:34)
[2016-10-06] MEDS: BOOST VANILLA PUDDING CUP PO SCH ×2 (08:58→16:34)
[2016-10-06] MEDS: MICONAZOLE NITRATE POWDER 43 GM EXT SCH ×2 (09:00→21:00)
[2016-10-06] MEDS: OXYCODONE HCL IR 5 MG TAB (IMMEDIATE RELEASE) PO PRN ×2 (10:00→21:59)
[2016-10-06 12:41] VITALS: BP 144/74
--- NOTE | 2016-10-06 15:46 | Progress Note ---
Internal Med Progress Note Date of Service: Oct 06, 2016. Provider Documentation: SUBJECTIVE: sitting on the chair today has some nausea moved bowels says she was not able to eat meme pudding denies any nutrition via IV or tubes OBJECTIVE: Vital Signs-as noted below Exam: General-alert and oriented. Not in distress ENT-normal hearing Neck-no neck masses Lungs-cta b/l no wheezing or crackles Heart-s1 and s2 heard regular rate and rhythm, no murmurs Abdomen-soft bowel sounds present non tender no distension Extremities- no erythema Neuro-alert and oriented moves extremities Lab data as noted below. ASSESSMENT & PLAN: 60f was admitted for right shoulder pain 6 weeks post ORIF of right proximal humerus and s/pcS/P RIGHT REVERSE TOTAL SHOULDER ARTHROPLASTY, REMOVAL OF DEEP HARDWARE RIGHT PROXIMAL HUMERUS, DEBRIDEMENT OF OLECRANON ULCER RIGHT ELBOW. Post op was complicated by volume overload and possible aspiration pneumonia with Resp failure requiring intubation. Her renal function worsened and requiring dialysis.Hepatorenal syndrome? Has hx of Biliary cirrhosis.Currently s/p extubation and saturating fine on room air. requiring midodrine to keep BP elevated. required prbc transfusion though no obvious signs of bleeding. Bilirubin elevated but no obstruction on Liver US. Gi and Nephrology following. 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 Plan for [facility] when more stable.Bilirubin keep climbing but GI want to wait and see. Gi recommends f/u with liver/kidney transplant at [place].Await pt/ot evaluations. Active issues are to complete iv abx, f/u lfts for rising bilirubin levels and nutrition and pt/ot. Plan for [facility] when more stable. Hypotension stable on midodrine continue same for now stable now will monitor Acute hypoxic respiratory failure 09/20/16 secondary to fluid overload from IV fluids and albumin; Aspiration pneumonia? Required intubation/mechanical ventilation. Improved with dialysis. Extubated 09/24/16. Now oxygenating well and stable on room air. stable will monitor Hx of biliary cirrhosis with portal hypertension. GI and nutrition consulted. Bilirubin today10.1. ON rifaximin. Restarted obeticholic acid. seen by GI today and appreciate inputs liver US10/03/16- no acute findings notified GI regarding increasing bilirubin levels- mostly from ongoing illness and to wait for recovery will f/u lft's Chronic kidney disease stage 3 with acute kidney injury - ATN vs hepatorenal syndrome. Placement of hemodialysis catheter 09/27 and started on dialysis Management per Nephrology. May need [facility] dialysis altered mental status/encephalopathy secondary to multifactorial delirium. Head CT negative for acute event. currently stable Continue rifaximin for hepatic encephalopathy. stable currently Aspiration pneumonia? Received IV vancomycin and piperacillin/tazobactam for possible aspiration pneumonia. Receiving fluconazole for Melissa albicans noted in sputum and bronchial washings. Loose stools - negative for C. difficile 09/27. elevated wbc CT chest / abdomen / pelvis did not show any apparent source of infection. ID consulted. WBC today 12.8 currently on Primaxin and vanco #7 to complete 10 day course as per ID Anemia acute on chronic? Hemoglobin 9.5 on admission, fell as low as 5.6 on 09/29/16. No obvious GI bleeding, but stools heme +. CT abdomen and pelvis did not show any apparent retroperitoneal or intra- abdominal bleed. received 2units prbc hb 7.5 on 10/02/16 and received one more unit of prbc hb 10.3 today Thrombocytopenia platelets 106 today hit studies negative GENERAL DEBILITATION Increase activity as tolerated. Malnutrition nutrition consult not liking boost may try different drink denies parenteral nutrition Depression? patient denies will monitor VTE PROPHYLAXIS SQ heparin stopped 09/28 due to thrombocytopenia / anemia. SCD's. DISPOSITION monitor in medical floor plan for [facility] soon need to participate in pt/ot social service for d/c planning Vital Signs: Date Time Temp Pulse Resp B/P (MAP) Pulse Ox O2 Delivery O2 Flow Rate FiO2 10/06/16 12:41 144/74 (97) 10/06/16 08:53 135/81 (99) 10/06/16 07:40 Room Air 10/06/16 07:32 36.4 90 18 138/78 (98) 95 Room Air 10/05/16 23:55 Room Air 10/05/16 23:25 36.8 79 16 150/80 (103) 94 Room Air 10/05/16 15:55 36.7 93 16 114/75 (88) 94 Room Air Lab Results: Results Past 24 Hours Test 10/06/16 06:07 Range/Units White Blood Count 13.07 4.8-10.8 K/uL Red Blood Count 3.65 4.2-5.4 M/uL Hemoglobin 10.7 12.0-16.0 g/dL Hematocrit 33.2 37-47 % Mean Corpuscular Volume 91.0 80-100 fL Mean Corpuscular Hemoglobin 29.3 25-34 pg Mean Corpuscular Hemoglobin Concent 32.2 32-36 g/dl Platelet Count 107 130-400 K/uL Mean Platelet Volume 10.8 7.4-10.4 fL Neutrophils (%) (Auto) 78.6 % Lymphocytes (%) (Auto) 10.0 % Monocytes (%) (Auto) 8.3 % Eosinophils (%) (Auto) 2.5 % Basophils (%) (Auto) 0.3 % Neutrophils # (Auto) 10.26 1.4-6.5 K/uL Lymphocytes # (Auto) 1.31 1.2-3.4 K/uL Monocytes # (Auto) 1.09 0.11-0.59 K/uL Eosinophils # (Auto) 0.33 0-0.5 K/uL Basophils # (Auto) 0.04 0-0.2 K/uL RDW Standard Deviation 74.2 36.4-46.3 fL RDW Coefficient of Variation 23.6 11.5-14.5 % Immature Granulocyte % (Auto) 0.3 % Immature Granulocyte # (Auto) 0.04 0.00-0.02 K/uL Platelet Estimate DECREASED Polychromasia 1+ Anisocytosis PRESENT Echinocytes 2+ Sodium Level 136 136-145 mmol/L Potassium Level 3.6 3.5-5.1 mmol/L Chloride Level 101 98-107 mmol/L Carbon Dioxide Level 27 21-32 mmol/L Anion Gap 8.0 3-11 mmol/L Blood Urea Nitrogen 22 7-18 mg/dl Creatinine 2.00 0.60-1.20 mg/dl Est Creatinine Clear Calc Drug Dose 30.6 ml/min Estimated GFR () 31.1 Estimated GFR (Non- 26.8 BUN/Creatinine Ratio 10.8 10-20 Random Glucose 87 70-99 mg/dl Calcium Level 9.0 8.5-10.1 mg/dl Magnesium Level 2.0 1.8-2.4 mg/dl Total Bilirubin 10.1 0.2-1 mg/dl Direct Bilirubin 7.9 0-0.2 mg/dl Aspartate Amino Transf (AST/SGOT) 47 15-37 U/L Alanine Aminotransferase (ALT/SGPT) 16 12-78 U/L Alkaline Phosphatase 497 45-117 U/L Total Protein 5.3 6.4-8.2 gm/dl Albumin 2.4 3.4-5.0 gm/dl Random Vancomycin Level 20.7 mcg/ml Microbiology Results 10/06/16 C.difficile Toxin B Gene (PCR) - Final, Complete No C. difficile toxin B gene detected
[2016-10-06 16:10] VITALS: BP 133/78; PULSE 95; TEMP 36.6; O2SAT 93
[2016-10-06] MEDS: METOCLOPRAMIDE HCL INJ 5 MG/ML 2 ML VIAL IV PRN (16:32)
[2016-10-06 18:30] VITALS: BP 137/82; PULSE 98
[2016-10-06 23:14] VITALS: BP 153/64; PULSE 84; TEMP 36.6; O2SAT 95
[2016-10-07] VITALS (14 sets, daily range): BP systolic 100–133; BP diastolic 46–74; PULSE 84–102; TEMP 36.3–36.6; O2SAT 93–96
[2016-10-07] MEDS: IMIPENEM/CILASTATIN IV 500 MG in DEXTROSE 5% 100ML 100 ML IV SCH ×2 (03:45→16:36)
[2016-10-07] MEDS: MULTIVITAMIN TAB PO SCH (08:11)
[2016-10-07] MEDS: MICONAZOLE NITRATE POWDER 43 GM EXT SCH ×2 (08:11→21:00)
[2016-10-07] MEDS: BOOST VANILLA PUDDING CUP PO SCH ×3 (08:11→17:32)
[2016-10-07] MEDS: RIFAXIMIN TAB 550 MG TAB PO SCH ×2 (08:12→21:03)
[2016-10-07] MEDS: PANTOprazole SOD 40 MG TAB PO SCH (08:12)
[2016-10-07] MEDS: URSODIOL 300 MG CAP PO SCH ×2 (08:13→21:04)
[2016-10-07] MEDS: MIDODRINE 2.5 MG TAB PO SCH ×3 (08:14→17:34)
[2016-10-07] MEDS ORDERED: EPOETIN ALFA 10,000 UNITS/ML VIAL IV. SCH (10:00)
[2016-10-07] MEDS: METOCLOPRAMIDE HCL INJ 5 MG/ML 2 ML VIAL IV PRN (10:52)
[2016-10-07] MEDS ORDERED: TPN/PPN CONSULT PHARMACY PRN (13:46)
--- NOTE | 2016-10-07 13:52 | Progress Note ---
Internal Med Progress Note Date of Service: Oct 07, 2016. Provider Documentation: SUBJECTIVE: had dialysis today afebrile eating ok no sob after persuasion by patient agreeable for TPN OBJECTIVE: Vital Signs-as noted below Exam: General-alert and oriented. Not in distress ENT-normal hearing Neck-no neck masses Lungs-cta b/l no wheezing or crackles Heart-s1 and s2 heard regular rate and rhythm, no murmurs Abdomen-soft bowel sounds present non tender no distension Extremities- no erythema right upper extremity in sling Neuro-alert and oriented moves extremities Lab data as noted below. ASSESSMENT & PLAN: 60f was admitted for right shoulder pain 6 weeks post ORIF of right proximal humerus and s/pcS/P RIGHT REVERSE TOTAL SHOULDER ARTHROPLASTY, REMOVAL OF DEEP HARDWARE RIGHT PROXIMAL HUMERUS, DEBRIDEMENT OF OLECRANON ULCER RIGHT ELBOW. Post op was complicated by volume overload and possible aspiration pneumonia with Resp failure requiring intubation. Her renal function worsened and requiring dialysis.Hepatorenal syndrome? Has hx of Biliary cirrhosis.Currently s/p extubation and saturating fine on room air. requiring midodrine to keep BP elevated. required prbc transfusion though no obvious signs of bleeding. Bilirubin elevated but no obstruction on Liver US. Gi and Nephrology following. May need nursing home dialysis as per nephrology. Plan for [facility] when more stable.Bilirubin keep climbing but GI want to wait and see. Gi recommends f/u with liver/kidney transplant at [place].Await pt/ot evaluations.Plan for TPN as patient oral intake not adequate at this time. Active issues are to complete iv abx, f/u lfts for rising bilirubin levels and nutrition and pt/ot. Starting on TPN.Plan for [facility] when more stable. Hospital course so far: Hypotension stable on midodrine continue same for now stable now will monitor Acute hypoxic respiratory failure 09/20/16 secondary to fluid overload from IV fluids and albumin; Aspiration pneumonia? Required intubation/mechanical ventilation. Improved with dialysis. Extubated 09/24/16. Now oxygenating well and stable on room air. stable will monitor Hx of biliary cirrhosis with portal hypertension. GI and nutrition consulted. Bilirubin today10.1. ON rifaximin. Restarted obeticholic acid. seen by GI today and appreciate inputs liver US10/03/16- no acute findings notified GI regarding increasing bilirubin levels- mostly from ongoing illness and to wait for recovery will f/u lft's Chronic kidney disease stage 3 with acute kidney injury - ATN vs hepatorenal syndrome. Placement of hemodialysis catheter 09/27 and started on dialysis Management per Nephrology. May need nursing home dialysis altered mental status/encephalopathy secondary to multifactorial delirium. Head CT negative for acute event. currently stable Continue rifaximin for hepatic encephalopathy. stable currently Aspiration pneumonia? Received IV vancomycin and piperacillin/tazobactam for possible aspiration pneumonia. Receiving fluconazole for Melissa albicans noted in sputum and bronchial washings. Loose stools - negative for C. difficile 09/27. elevated wbc CT chest / abdomen / pelvis did not show any apparent source of infection. ID consulted. WBC today 12.8 currently on Primaxin and vanco #7 to complete 10 day course as per ID Anemia acute on chronic? Hemoglobin 9.5 on admission, fell as low as 5.6 on 09/29/16. No obvious GI bleeding, but stools heme +. CT abdomen and pelvis did not show any apparent retroperitoneal or intra- abdominal bleed. received 2units prbc hb 7.5 on 10/02/16 and received one more unit of prbc hb 10.3 today Thrombocytopenia platelets 106 today hit studies negative GENERAL DEBILITATION Increase activity as tolerated. Malnutrition nutrition consult not liking boost may try different drink starting on parenteral nutrition Depression? patient denies will monitor VTE PROPHYLAXIS SQ heparin stopped 09/28 due to thrombocytopenia / anemia. SCD's. DISPOSITION monitor [facility] need to participate in pt/ot social service for d/c planning Vital Signs: Date Time Temp Pulse Resp B/P (MAP) Pulse Ox O2 Delivery O2 Flow Rate FiO2 10/07/16 12:34 36.5 94 108/55 (72) 10/07/16 12:29 90 100/50 10/07/16 12:12 92 102/50 10/07/16 11:50 100 100/53 10/07/16 11:30 87 102/46 10/07/16 11:10 100 104/53 10/07/16 10:50 91 116/61 10/07/16 10:30 86 104/52 10/07/16 10:15 86 107/55 10/07/16 09:50 84 117/60 10/07/16 09:29 88 128/64 10/07/16 09:20 36.6 102 129/66 (87) 10/07/16 08:00 Room Air 10/07/16 07:33 36.4 92 19 133/71 (91) 96 Room Air 10/07/16 00:18 Room Air 10/06/16 23:14 36.6 84 16 153/64 (93) 95 Room Air 10/06/16 18:30 98 137/82 (100) 10/06/16 16:15 Room Air 10/06/16 16:10 36.6 95 16 133/78 (96) 93 Room Air Lab Results: Results Past 24 Hours Test 10/07/16 05:22 Range/Units Random Vancomycin Level 17.2 mcg/ml
[2016-10-07] MEDS ORDERED: SODIUM CHLORIDE 0.9% IV ONE (14:00)
[2016-10-07] MEDS ORDERED: VANCOMYCIN IV ONE (14:00)
--- NOTE | 2016-10-07 14:56 | Pharmacy Progress Note ---
Pharmacy Abx Dose Short Note Date of Service Oct 07, 2016. Assessment & Plan Assessment * 60 year old female receiving VANCOMYCIN and PRIMAXIN IV for treatment of sepsis of unclear etiology, question of aspiration pnx * Day # 8 of 10 planned days antimicrobial therapy (but had received vancomycin IV 09/20 - 09/27 prior to vanco being restarted on 09/29; had received 7 days of Zosyn as well 09/20-09/27) * Currently afebrile, VSS - mildly tachycardic at times, sat well on room air, denies SOB * Continues on hemodialysis. Plan Vancomycin * Random level of 17.2 mcg/mL this AM is therapeutic. * Patient is to have hemodialysis treatment today which will lower this level even further * Vancomycin 750mg IV x 1 after HD today * Will recheck random level w/ AM labs in 2 days - plan is to redose when level is 15-20mcg/mL or when level anticipated to be between 15-20 after dialysis. Primaxin * continue 500mg IV Q 12 hrs Pharmacy will continue to follow and will adjust dose/frequency as necessary. Thank you.
[2016-10-08] VITALS (18 sets, daily range): BP systolic 95–141; BP diastolic 51–77; PULSE 80–94; TEMP 36.6–36.8; O2SAT 94–95
[2016-10-08] MEDS: IMIPENEM/CILASTATIN IV 500 MG in DEXTROSE 5% 100ML 100 ML IV SCH ×2 (04:03→16:55)
[2016-10-08 06:39] LABS: AST/SGOT 52 U/L (15-37); POTASSIUM 3.7 mmol/L (3.5-5.1)
[2016-10-08 06:42] LABS: ALKALINE PHOSPHATASE 454 U/L (45-117); ALT/SGPT 13 U/L (12-78); BLOOD UREA NITROGEN 20 mg/dl (7-18); CALCIUM 9.2 mg/dl (8.5-10.1); CARBON DIOXIDE 28 mmol/L (21-32); CHLORIDE 101 mmol/L (98-107); GLUCOSE 81 mg/dl (70-99); PHOSPHORUS 3.4 mg/dl (2.5-4.9); SODIUM 136 mmol/L (136-145)
[2016-10-08] MEDS: MICONAZOLE NITRATE POWDER 43 GM EXT SCH ×2 (08:47→21:00)
[2016-10-08] MEDS: URSODIOL 300 MG CAP PO SCH ×2 (08:48→21:49)
[2016-10-08] MEDS: BOOST VANILLA PUDDING CUP PO SCH ×2 (08:49→18:37)
[2016-10-08] MEDS: MULTIVITAMIN TAB PO SCH (08:49)
[2016-10-08] MEDS: PANTOprazole SOD 40 MG TAB PO SCH (08:50)
[2016-10-08] MEDS: RIFAXIMIN TAB 550 MG TAB PO SCH ×2 (08:54→21:00)
[2016-10-08] MEDS: MIDODRINE 2.5 MG TAB PO SCH ×3 (09:00→18:36)
[2016-10-08] MEDS ORDERED: DEXTROSE 10% 1,000 ML IV PRN (11:21)
--- NOTE | 2016-10-08 11:59 | PROGRESS NOTE ---
DATE: 10/08/2016 DATE: 10/08/2016 DIALYSIS NOTE SUBJECTIVE: The patient was seen during dialysis. She has no complaint at this time. Catheter is working fine with a blood flow of 400, blood pressure is 124/70 systolic. She does have some degree of edema. Even now she makes hardly any urine. She is eating and drinking almost normally. No new issues. The patient is a 60-year-old female with biliary cirrhosis with severe ATN needing dialysis. PHYSICAL EXAMINATION: VITAL SIGNS: Blood pressure 120/60, pulse rate 89, temperature 36.7, 94% on room air. HEAD, EYES, EARS, NOSE, AND THROAT: Mucous membranes moist. NECK: Supple. No jugular venous distention. CHEST: Bilateral clear to auscultation, although decreased inspiratory effort. HEART: Regular rate and rhythm. Soft 2/6 systolic murmur heard. ABDOMEN: Soft, nontender. EXTREMITIES: Shows trace edema. NEUROLOGIC: Nonfocal, moving all 4 extremities. Normal speech. LABORATORY TESTS: From today was reviewed in detail. Hemoglobin is 10.7, WBC count 13,000, platelet count 107,000. BUN 20, creatinine 2, sodium 136, potassium 3.7. ASSESSMENT AND PLAN: Acute kidney injury, severe ATN needing dialysis 3 days a week. Continue dialysis as prescribed. We will increase the fluid removal to 2 liters today. She has good blood pressure and she is tolerating dialysis very well. Catheter is working fine. Given that her urine output is almost nonexistent at this time will need to continue dialysis in the foreseeable future. JLUISD
--- NOTE | 2016-10-08 15:07 | Progress Note ---
Internal Med Progress Note Date of Service: Oct 08, 2016. Provider Documentation: SUBJECTIVE: says eating fine afebrile no sob moving bowels patient says she just wants tp go [place] and tearful about it OBJECTIVE: Vital Signs-as noted below Exam: General-alert and oriented. Not in distress ENT-normal hearing Neck-no neck masses Lungs-cta b/l no wheezing or crackles Heart-s1 and s2 heard regular rate and rhythm, no murmurs Abdomen-soft bowel sounds present non tender no distension Extremities- no erythema right upper extremity in sling Neuro-alert and oriented moves extremities Lab data as noted below. ASSESSMENT & PLAN: 60f was admitted for right shoulder pain 6 weeks post ORIF of right proximal humerus and s/pcS/P RIGHT REVERSE TOTAL SHOULDER ARTHROPLASTY, REMOVAL OF DEEP HARDWARE RIGHT PROXIMAL HUMERUS, DEBRIDEMENT OF OLECRANON ULCER RIGHT ELBOW. Post op was complicated by volume overload and possible aspiration pneumonia with Resp failure requiring intubation. Her renal function worsened and requiring dialysis.Hepatorenal syndrome? Has hx of Biliary cirrhosis.Currently s/p extubation and saturating fine on room air. requiring midodrine to keep BP elevated. required prbc transfusion though no obvious signs of bleeding. Bilirubin elevated but no obstruction on Liver US. Gi and Nephrology following. May need [facility] dialysis as per nephrology. Plan for [facility] when more stable.Bilirubin keep climbing but GI want to wait and see. Gi recommends f/u with liver/kidney transplant at [place].Await pt/ot evaluations.Plan for TPN as patient oral intake not adequate at this time and refusing Tube feeds. Active issues are to complete iv abx, f/u lfts for rising bilirubin levels and nutrition and pt/ot. Started TPN for few days.Plan for [facility] when more stable, hopefully next week Hospital course so far: Hypotension stable on midodrine continue same for now stable now will monitor Acute hypoxic respiratory failure 09/20/16 secondary to fluid overload from IV fluids and albumin; Aspiration pneumonia? Required intubation/mechanical ventilation. Improved with dialysis. Extubated 09/24/16. Now oxygenating well and stable on room air. stable will monitor Hx of biliary cirrhosis with portal hypertension. GI and nutrition consulted. Bilirubin today10.1. ON rifaximin. Restarted obeticholic acid. seen by GI today and appreciate inputs liver US10/03/16- no acute findings notified GI regarding increasing bilirubin levels- mostly from ongoing illness and to wait for recovery will f/u lft's Chronic kidney disease stage 3 with acute kidney injury - ATN vs hepatorenal syndrome. Placement of hemodialysis catheter 09/27 and started on dialysis Management per Nephrology. May need assisted dialysis altered mental status/encephalopathy secondary to multifactorial delirium. Head CT negative for acute event. currently stable Continue rifaximin for hepatic encephalopathy. stable currently Aspiration pneumonia? Received IV vancomycin and piperacillin/tazobactam for possible aspiration pneumonia. Receiving fluconazole for Melissa albicans noted in sputum and bronchial washings. Loose stools - negative for C. difficile 09/27. elevated wbc CT chest / abdomen / pelvis did not show any apparent source of infection. ID consulted. WBC today 12.8 currently on Primaxin and vanco #9 to complete 10 day course as per ID Anemia acute on chronic? Hemoglobin 9.5 on admission, fell as low as 5.6 on 09/29/16. No obvious GI bleeding, but stools heme +. CT abdomen and pelvis did not show any apparent retroperitoneal or intra- abdominal bleed. received 2units prbc hb 7.5 on 10/02/16 and received one more unit of prbc hb 10.7 Thrombocytopenia platelets 106 today hit studies negative GENERAL DEBILITATION Increase activity as tolerated. Malnutrition nutrition consult not liking boost may try different drink starting on parenteral nutrition Depression? patient denies will monitor VTE PROPHYLAXIS SQ heparin stopped 09/28 due to thrombocytopenia / anemia. SCD's. DISPOSITION monitor in medical floor plan [facility] soon need to participate in pt/ot social service for d/c planning Vital Signs: Date Time Temp Pulse Resp B/P (MAP) Pulse Ox O2 Delivery O2 Flow Rate FiO2 10/08/16 12:15 90 111/64 10/08/16 12:00 89 107/70 10/08/16 11:45 90 113/61 10/08/16 11:30 86 114/59 10/08/16 11:15 85 109/59 10/08/16 11:00 91 121/63 10/08/16 10:45 92 95/62 10/08/16 10:30 87 105/59 10/08/16 10:15 89 120/62 10/08/16 10:00 90 122/56 10/08/16 09:45 80 127/60 10/08/16 09:25 91 141/61 10/08/16 09:14 36.6 86 127/59 (81) 10/08/16 07:50 Room Air 10/08/16 07:29 36.7 88 20 125/74 (91) 94 Room Air 10/08/16 00:30 Room Air 10/08/16 00:17 36.7 88 18 130/71 (90) 95 Room Air 10/07/16 16:40 Room Air 10/07/16 16:00 36.3 93 16 119/74 (89) 93 Room Air Lab Results: Results Past 24 Hours Test 10/08/16 05:20 Range/Units Sodium Level 136 136-145 mmol/L Potassium Level 3.7 3.5-5.1 mmol/L Chloride Level 101 98-107 mmol/L Carbon Dioxide Level 28 21-32 mmol/L Anion Gap 7.0 3-11 mmol/L Blood Urea Nitrogen 20 7-18 mg/dl Creatinine 2.00 0.60-1.20 mg/dl Est Creatinine Clear Calc Drug Dose 31.6 ml/min Estimated GFR () 31.1 Estimated GFR (Non- 26.8 BUN/Creatinine Ratio 10.0 10-20 Random Glucose 81 70-99 mg/dl Calcium Level 9.2 8.5-10.1 mg/dl Phosphorus Level 3.4 2.5-4.9 mg/dl Magnesium Level 1.8-2.4 mg/dl Total Bilirubin 9.5 0.2-1 mg/dl Direct Bilirubin 7.3 0-0.2 mg/dl Aspartate Amino Transf (AST/SGOT) 52 15-37 U/L Alanine Aminotransferase (ALT/SGPT) 13 12-78 U/L Alkaline Phosphatase 454 45-117 U/L Total Protein 4.8 6.4-8.2 gm/dl Albumin 2.2 3.4-5.0 gm/dl Triglycerides Level 0-150 mg/dl
[2016-10-08] MEDS ORDERED: CUSTOM CENTRAL PN 1 BAG IV SCH (16:00)
[2016-10-08] MEDS: LACTULOSE SYRUP 30 GM/45 ML UDP PO STA (16:47)
[2016-10-09] MEDS: IMIPENEM/CILASTATIN IV 500 MG in DEXTROSE 5% 100ML 100 ML IV SCH (03:54)
[2016-10-09 06:44] LABS: BLOOD UREA NITROGEN 18 mg/dl (7-18); BUN/CREATININE RATIO 11.1 (10-20); CALCIUM 8.9 mg/dl (8.5-10.1); CARBON DIOXIDE 28 mmol/L (21-32); CHLORIDE 99 mmol/L (98-107); GLUCOSE 89 mg/dl (70-99); POTASSIUM 3.4 mmol/L (3.5-5.1); SODIUM 133 mmol/L (136-145)
[2016-10-09 07:19] LABS: PHOSPHORUS 1.9 mg/dl (2.5-4.9)
[2016-10-09] MEDS: MULTIVITAMIN TAB PO SCH (08:08)
[2016-10-09] MEDS: RIFAXIMIN TAB 550 MG TAB PO SCH ×2 (08:09→21:24)
[2016-10-09] MEDS: BOOST VANILLA PUDDING CUP PO SCH ×2 (08:09→17:25)
[2016-10-09] MEDS: URSODIOL 300 MG CAP PO SCH ×2 (08:09→21:27)
[2016-10-09] MEDS: PANTOprazole SOD 40 MG TAB PO SCH (08:09)
[2016-10-09] MEDS: MIDODRINE 2.5 MG TAB PO SCH ×3 (08:10→17:31)
[2016-10-09] MEDS: OBETICHOLIC ACID 5 MG PO SCH (08:10)
[2016-10-09] MEDS: MICONAZOLE NITRATE POWDER 43 GM EXT SCH ×2 (08:11→21:00)
[2016-10-09 08:25] VITALS: BP 148/78; PULSE 84; TEMP 36.8; O2SAT 95
[2016-10-09] MEDS ORDERED: [UNRECOGNIZED DRUG - OTHER] PO SCH (09:00)
[2016-10-09] MEDS ORDERED: POTASSIUM PHOSPHATE INJ 9 MMOL in SODIUM CHLORIDE 0.9% 250ML 250 ML IV ONE (12:00)
[2016-10-09 14:12] LABS: HEMATOCRIT 29.5 % (37-47); MEAN CELL VOLUME 92.5 fL (80-100); MEAN CORPUSCULAR HEMOGLOBIN 30.1 pg (25-34); MEAN CORPUSCULAR HGB CONC 32.5 g/dl (32-36); RED BLOOD COUNT 3.19 M/uL (4.2-5.4)
[2016-10-09 14:38] LABS: MEAN PLATELET VOLUME 9.9 fL (7.4-10.4); PLATELET COUNT 76 K/uL (130-400)
[2016-10-09 14:41] LABS: ANISOCYTOSIS PRESENT; BASO % 0.1 %; BASO ABS # 0.01 K/uL (0-0.2); ECHINOCYTES 1+; EOS % 0.9 %; IG% 0.4 %; LYMPH % 5.3 %; LYMPH ABS # 0.47 K/uL (1.2-3.4); MONO % 3.6 %; NEUT % 89.7 %; PLT ESTIMATE DECREASED; POLYCHROMASIA 1+
[2016-10-09 14:47] LABS: COMPLETE YES
--- NOTE | 2016-10-09 15:21 | Progress Note ---
Internal Med Progress Note Date of Service: Oct 09, 2016. Provider Documentation: SUBJECTIVE: in the room patient wants her to take her home angry that she is still in hospital and her not taking her home afebrile was tearful yesterday OBJECTIVE: Vital Signs-as noted below Exam: General-alert and oriented. Not in distress ENT-normal hearing Neck-no neck masses Lungs-cta b/l no wheezing or crackles Heart-s1 and s2 heard regular rate and rhythm, no murmurs Abdomen-soft bowel sounds present non tender no distension Extremities- lower extremity edema present,no erythema right upper extremity in sling Neuro-alert and oriented moves extremities Lab data as noted below. ASSESSMENT & PLAN: 60f was admitted for right shoulder pain 6 weeks post ORIF of right proximal humerus and s/pcS/P RIGHT REVERSE TOTAL SHOULDER ARTHROPLASTY, REMOVAL OF DEEP HARDWARE RIGHT PROXIMAL HUMERUS, DEBRIDEMENT OF OLECRANON ULCER RIGHT ELBOW. Post op was complicated by volume overload and possible aspiration pneumonia with Resp failure requiring intubation. Her renal function worsened and requiring dialysis.Hepatorenal syndrome? Has hx of Biliary cirrhosis.Currently s/p extubation and saturating fine on room air. requiring midodrine to keep BP elevated. required prbc transfusion though no obvious signs of bleeding. Bilirubin elevated but no obstruction on Liver US. Gi and Nephrology following. May need [facility] as per nephrology. Plan for [facility] when more stable.Bilirubin keep climbing but GI want to wait and see. Gi recommends f/u with liver/kidney transplant at [place].Await pt/ot evaluations.Plan for TPN as patient oral intake not adequate at this time and refusing Tube feeds. Active issues are to complete iv abx whic will be done today, f/u lfts for rising bilirubin levels and nutrition and pt/ot. Started TPN for few days to stop TPN after today's dose.Plan for [facility] when more stable, hopefully next week. Patient was tearful yesterday that she is not going home and somewhat angry with her for not taking her home though explained her she needs rehab before going home. Drawn blood cx and urine cx and abg as per request for any ongoing infection. consulted psychiatry for depression. Hospital course so far: Hypotension stable on midodrine continue same for now stable now will monitor Acute hypoxic respiratory failure 09/20/16 secondary to fluid overload from IV fluids and albumin; Aspiration pneumonia? Required intubation/mechanical ventilation. Improved with dialysis. Extubated 09/24/16. Now oxygenating well and stable on room air. stable will monitor Hx of biliary cirrhosis with portal hypertension. GI and nutrition consulted. Bilirubin today10.1. ON rifaximin. Restarted obeticholic acid. seen by GI today and appreciate inputs liver US10/03/16- no acute findings notified GI regarding increasing bilirubin levels- mostly from ongoing illness and to wait for recovery will f/u lft's Chronic kidney disease stage 3 with acute kidney injury - ATN vs hepatorenal syndrome. Placement of hemodialysis catheter 09/27 and started on dialysis Management per Nephrology. May need [facility] altered mental status/encephalopathy secondary to multifactorial delirium. Head CT negative for acute event. currently stable Continue rifaximin for hepatic encephalopathy. stable currently Aspiration pneumonia? Received IV vancomycin and piperacillin/tazobactam for possible aspiration pneumonia. Receiving fluconazole for Melissa albicans noted in sputum and bronchial washings. Loose stools - negative for C. difficile 09/27. elevated wbc CT chest / abdomen / pelvis did not show any apparent source of infection. ID consulted. WBC today 12.8 currently on Primaxin and vanco #10 to complete 10 day course as per ID- to stop abx today 10/09/16 Anemia acute on chronic? Hemoglobin 9.5 on admission, fell as low as 5.6 on 09/29/16. No obvious GI bleeding, but stools heme +. CT abdomen and pelvis did not show any apparent retroperitoneal or intra- abdominal bleed. received 2units prbc hb 7.5 on 10/02/16 and received one more unit of prbc hb 9.6 Thrombocytopenia platelets 106 today hit studies negative GENERAL DEBILITATION Increase activity as tolerated. Malnutrition nutrition consult not liking boost may try different drink received parenteral nutrition Depression? crying wants to go home not participating in therapy poor appetite consulted psychiatry VTE PROPHYLAXIS SQ heparin stopped 09/28 due to thrombocytopenia / anemia. SCD's. DISPOS[facility] need to participate in pt/ot social service for d/c planning Vital Signs: Date Time Temp Pulse Resp B/P (MAP) Pulse Ox O2 Delivery O2 Flow Rate FiO2 10/09/16 08:25 36.8 84 16 148/78 (101) 95 Room Air 10/09/16 08:15 Room Air 10/09/16 00:00 Room Air 10/08/16 23:50 36.8 83 18 132/73 (92) 95 Room Air 10/08/16 18:20 Room Air 10/08/16 16:14 36.8 85 16 134/77 (96) 94 Room Air Lab Results: Results Past 24 Hours Test 10/08/16 17:09 10/08/16 20:18 10/09/16 01:56 10/09/16 05:24 Range/Units Ammonia < 10.0 11-32 umol/L Bedside Glucose 89 114 70-90 mg/dl Sodium Level 133 136-145 mmol/L Potassium Level 3.4 3.5-5.1 mmol/L Chloride Level 99 98-107 mmol/L Carbon Dioxide Level 28 21-32 mmol/L Anion Gap 6.0 3-11 mmol/L Blood Urea Nitrogen 18 7-18 mg/dl Creatinine 1.60 0.60-1.20 mg/dl Est Creatinine Clear Calc Drug Dose 39.5 ml/min Estimated GFR () 40.7 Estimated GFR (Non- 35.2 BUN/Creatinine Ratio 11.1 10-20 Random Glucose 89 70-99 mg/dl Calcium Level 8.9 8.5-10.1 mg/dl Phosphorus Level 1.9 2.5-4.9 mg/dl Magnesium Level 2.0 1.8-2.4 mg/dl Triglycerides Level 0-150 mg/dl Random Vancomycin Level 15.6 mcg/ml Test 10/09/16 08:22 10/09/16 13:16 10/09/16 13:55 10/09/16 14:14 Range/Units Bedside Glucose 92 123 70-90 mg/dl White Blood Count 8.90 4.8-10.8 K/uL Red Blood Count 3.19 4.2-5.4 M/uL Hemoglobin 9.6 12.0-16.0 g/dL Hematocrit 29.5 37-47 % Mean Corpuscular Volume 92.5 80-100 fL Mean Corpuscular Hemoglobin 30.1 25-34 pg Mean Corpuscular Hemoglobin Concent 32.5 32-36 g/dl Platelet Count 76 130-400 K/uL Mean Platelet Volume 9.9 7.4-10.4 fL Neutrophils (%) (Auto) 89.7 % Lymphocytes (%) (Auto) 5.3 % Monocytes (%) (Auto) 3.6 % Eosinophils (%) (Auto) 0.9 % Basophils (%) (Auto) 0.1 % Neutrophils # (Auto) 7.98 1.4-6.5 K/uL Lymphocytes # (Auto) 0.47 1.2-3.4 K/uL Monocytes # (Auto) 0.32 0.11-0.59 K/uL Eosinophils # (Auto) 0.08 0-0.5 K/uL Basophils # (Auto) 0.01 0-0.2 K/uL RDW Standard Deviation 74.9 36.4-46.3 fL RDW Coefficient of Variation 23.2 11.5-14.5 % Immature Granulocyte % (Auto) 0.4 % Immature Granulocyte # (Auto) 0.04 0.00-0.02 K/uL Platelet Estimate DECREASED Polychromasia 1+ Anisocytosis PRESENT Echinocytes 1+ Total Bilirubin 9.2 0.2-1 mg/dl Direct Bilirubin 7.5 0-0.2 mg/dl Aspartate Amino Transf (AST/SGOT) 48 15-37 U/L Alanine Aminotransferase (ALT/SGPT) 12 12-78 U/L Alkaline Phosphatase 445 45-117 U/L Total Protein 5.1 6.4-8.2 gm/dl Albumin 2.3 3.4-5.0 gm/dl Microbiology Results 10/09/16 Blood Culture, Received Pending 10/09/16 Blood Culture, Received Pending
[2016-10-09] MEDS ORDERED: CUSTOM CENTRAL PN 1 BAG IV SCH (16:00)
[2016-10-09 16:31] VITALS: BP 149/74; PULSE 81; TEMP 36.5; O2SAT 97
[2016-10-09 23:47] VITALS: BP 147/72; PULSE 92; TEMP 36.9; O2SAT 92
[2016-10-10] MEDS: URSODIOL 300 MG CAP PO SCH ×2 (07:37→22:36)
[2016-10-10] MEDS: RIFAXIMIN TAB 550 MG TAB PO SCH ×2 (07:37→22:36)
[2016-10-10] MEDS: PANTOprazole SOD 40 MG TAB PO SCH (07:38)
[2016-10-10] MEDS: BOOST VANILLA PUDDING CUP PO SCH ×2 (07:38→17:00)
[2016-10-10] MEDS: MULTIVITAMIN TAB PO SCH (07:38)
[2016-10-10] MEDS: MICONAZOLE NITRATE POWDER 43 GM EXT SCH ×2 (07:39→21:00)
[2016-10-10] MEDS: MIDODRINE 2.5 MG TAB PO SCH ×3 (07:39→18:50)
[2016-10-10 07:45] VITALS: BP 130/77; PULSE 94; TEMP 36.9; O2SAT 95
[2016-10-10 15:20] LABS: BUN/CREATININE RATIO 25.1 (10-20); CREATININE 2.1 mg/dl (0.60-1.20); POTASSIUM 3.4 mmol/L (3.5-5.1)
[2016-10-10 16:03] VITALS: BP 137/81; PULSE 99; TEMP 36.5; O2SAT 96
--- NOTE | 2016-10-10 16:19 | Psychiatric Consultation ---
Consultation Date of Consultation Oct 10, 2016. Identifying Data Mrs. Childress is a 60 yo female who lives with her in [place]. She was admitted on 09/17/16. She has been maintained on prednisone therapy for primary billiary cirrhosis who is s/p right total shoulder arthroplasty on 09/18/2016, postoperative course was complicated by hepatorenal syndrome, hepatic encephalopathy (hyperammonemia resolved), requiring dialysis. Both she and her refused intervention by liaison nurse yesterday. Chief Complaint "I just want to go home". History of Present Illness patient initially shook her head indicating that she didn't want psychiatric assessment. Reviewed my concern that she was taking antidepressant medication prior to admission and was initially held here due to surgery and now increasingly upset/tearful with complications. She became tearful and discussed how painful it is both physically and mentally to be repositioned for cleaning, frustrated with fecal incontinence and not having her hair done. She states she has been refusing pain medication prior to her skin care as she doesn 't want to fall asleep during it as intrusive and desires to remain aware of what is happening to her body. She wasn't able to provide history re: her psychiatric meds other than to say that doesn't want her on trazodone or neurontin as "make me loopy" meaning sedated. She expressed frustration over coming to the hospital for 1 thing and being "stuck" her for something else. She recalled a previous hospitalization during which she had complications and difficulty eating where a nun sat with her for support and feedings. She is particularly sad today to be "missing out" on both the holiday weekend and her granddaughter's 2nd birthday. She is hopeless about her hospitalization but is oriented, understands her medical conditions and denies SI as wants to return home as soon as possible. She recognizes that the recommendation is for rehab and doesn't understand why "it's taking so long". 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 (8) Status post reverse total arthroplasty of right shoulder (9) Status post cardiac catheterization Allergies Allergies: Coded Allergies: Budesonide (Verified Allergy, Intermediate, FACIAL SWELLING, 09/17/16) PER RECORDS Mycophenolate (Verified Allergy, Intermediate, FACIAL SWELLING, 09/17/16) PER RECORDS Latex (Verified Allergy, Mild, RASH-CONTACT, 09/17/16) Acetaminophen (Verified Adverse Reaction, Unknown, "LIVER DISEASE", ) PER RECORDS Pseudoephedrine (Verified Adverse Reaction, Unknown, TACHYCARDIA, 09/17/16) PER RECORDS Home Medications Scheduled Cholecalciferol (Vitamin D3), 1,000 UNITS PO QAM Ferrous Gluconate (Ferrous Gluconate), 324 MG PO TID Furosemide (Furosemide), 100 MG PO DAILY Gabapentin (Neurontin), 300 MG PO TID Hydroxyzine Hcl (Atarax), 50 MG PO HS Obeticholic Acid (Ocaliva), 5 MG PO TUESDAY Prednisone (Prednisone), 1 MG PO QAM Propranolol (Inderal), 10 MG PO QAM Sertraline (Zoloft), 50 MG PO QAM Spironolactone (Aldactone), 100 MG PO QAM Trazodone Hcl (Trazodone), 100 MG PO HS Ursodiol (Ursodiol), 600 MG PO BID Family History Asthma MOTHER Diabetes mellitus FATHER Heart disease FATHER MOTHER patient would not provide Alcohol Use Alcohol Use In Past 12 Months: No Smoking Use Smoking Status: Never Smoker Personal History Additional Comments: unable to obtain full social history as not in support of consult and patient significantly distressed. Review of Systems patient declined to complete for psych c/s Examination Vital Signs Vital Signs Past 12 Hours Date Time Temp Pulse Resp B/P (MAP) Pulse Ox O2 Delivery O2 Flow Rate FiO2 10/10/16 07:45 Room Air 10/10/16 07:45 36.9 94 16 130/77 (94) 95 Room Air Laboratory Results Last 24 Hours Test 10/09/16 20:05 10/10/16 03:17 10/10/16 04:44 10/10/16 05:53 Bedside Glucose 110 mg/dl 96 mg/dl Total Bilirubin 9.3 mg/dl Direct Bilirubin 7.0 mg/dl Aspartate Amino Transf (AST/SGOT) 48 U/L Alanine Aminotransferase (ALT/SGPT) 13 U/L Alkaline Phosphatase 411 U/L Total Protein 4.9 gm/dl Albumin 2.1 gm/dl Test 10/10/16 08:22 10/10/16 14:09 10/10/16 14:43 Bedside Glucose 103 mg/dl 127 mg/dl Sodium Level 132 mmol/L Potassium Level 3.4 mmol/L Chloride Level 98 mmol/L Carbon Dioxide Level 24 mmol/L Anion Gap 10.0 mmol/L Blood Urea Nitrogen 53 mg/dl Creatinine 2.10 mg/dl Est Creatinine Clear Calc Drug Dose 30.3 ml/min Estimated GFR () 29.3 Estimated GFR (Non- 25.3 BUN/Creatinine Ratio 25.1 Random Glucose 111 mg/dl Mental Examination During interview pt is: guarded Appearance: disheveled Eye contact is: poor (but did improve toward end of assessment) Motor behavior is: no abnormal motor movements Speech: normal in rate, rhythm & volume Affect: depressed Mood is: depressed Thought content: reality based without delusions Suicidal thought are: denied Homicidal thoughts are: denied Hallucinations: denies auditory, denies visual Cognition: attention grossly intact, language grossly intact Intelligence estimated to be: average Insight: fair Judgement: limited Impression / Recommendations Impression 60 yo female, consult limited by cooperation, on Zoloft and sleep med prior to admit and chronic steroids. I assume SSRI was held due to bleeding risks with multiple procedures but timing may be contributing to increased tearfulness. Chronic steroids and medical conditions can certainly also contribute to depressed mood. There did not appear to be any delirium or psychotic disorder interfering with her capacity to make medical decisions at this time. She is refusing to restart her antidepressant and ended conversation when I attempted to discuss potential benefits of mirtazapine given poor PO and sleep concerns. Recommendations (1) Major depressive disorder, recurrent episode with anxious distress patient states that she will consider a therapy referral as outpatient she won't agree to restart antidepressant medication at this time reviewed possible use of low dose Ativan prior to direct nursing care as most triggering for her. She is unsure if she would accept prn so I defer to primary team if appropriate with other pain meds. she was agreeable to liaison check ins to provide emotional support during her hospitalization
[2016-10-10 17:22] LABS: CALCIUM 10.3 mg/dl (8.5-10.1)
--- NOTE | 2016-10-10 19:01 | Progress Note ---
Internal Med Progress Note Date of Service: Oct 10, 2016. Provider Documentation: SUBJECTIVE: sitting on the chair father in the room patient says she wants to go home and her dad will take her denied medications today seems somewhat confused patient father says her is responsible for discharge and he agrees she is not ready to go home OBJECTIVE: Vital Signs-as noted below Exam: General-alert and awake. Not in distress ENT-normal hearing Neck-no neck masses Lungs-cta b/l no wheezing or crackles Heart-s1 and s2 heard regular rate and rhythm, no murmurs Abdomen-soft bowel sounds present non tender no distension Extremities- lower extremity edema present,no erythema right upper extremity in sling Neuro-alert and awake moves extremities Lab data as noted below. ASSESSMENT & PLAN: [id number] was admitted for right shoulder pain 6 weeks post ORIF of right proximal humerus and s/pcS/P RIGHT REVERSE TOTAL SHOULDER ARTHROPLASTY, REMOVAL OF DEEP HARDWARE RIGHT PROXIMAL HUMERUS, DEBRIDEMENT OF OLECRANON ULCER RIGHT ELBOW. Post op was complicated by volume overload and possible aspiration pneumonia with Resp failure requiring intubation. Her renal function worsened and requiring dialysis.Hepatorenal syndrome? Has hx of Biliary cirrhosis.Currently s/p extubation and saturating fine on room air. requiring midodrine to keep BP elevated. required prbc transfusion though no obvious signs of bleeding. Bilirubin elevated but no obstruction on Liver US. Gi and Nephrology following. May need skilled nursing dialysis as per nephrology. Plan for [facility] when more stable.Bilirubin keep climbing but GI want to wait and see. Gi recommends f/u with liver/kidney transplant at [place].Await pt/ot evaluations.Plan for TPN as patient oral intake not adequate at this time and refusing Tube feeds. Active issues are to complete iv abx which are done 10/09/16, f/u lfts for rising bilirubin levels and nutrition and pt/ot. Started TPN for few days and stopped yesterday.Plan for [facility] when more stable, hopefully next week. Patient was tearful that she is not going home and somewhat angry with her for not taking her home though explained her she needs rehab before going home. Drawn blood cx and urine cx and abg as per request for any ongoing infection. consulted psychiatry for depression.Will request psychiatry for competence as patient adamantly wants to go home. Hospital course so far: Hypotension stable on midodrine continue same for now stable now will monitor Acute hypoxic respiratory failure 09/20/16 secondary to fluid overload from IV fluids and albumin; Aspiration pneumonia? Required intubation/mechanical ventilation. Improved with dialysis. Extubated 09/24/16. Now oxygenating well and stable on room air. stable will monitor Hx of biliary cirrhosis with portal hypertension. GI and nutrition consulted. Bilirubin today10.1. ON rifaximin. Restarted obeticholic acid. seen by GI today and appreciate inputs liver US10/03/16- no acute findings notified GI regarding increasing bilirubin levels- mostly from ongoing illness and to wait for recovery will f/u lft's Chronic kidney disease stage 3 with acute kidney injury - ATN vs hepatorenal syndrome. Placement of hemodialysis catheter 09/27 and started on dialysis Management per Nephrology. 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 Head CT negative for acute event. currently stable Continue rifaximin for hepatic encephalopathy. stable currently Aspiration pneumonia? Received IV vancomycin and piperacillin/tazobactam for possible aspiration pneumonia. Receiving fluconazole for Melissa albicans noted in sputum and bronchial washings. Loose stools - negative for C. difficile 09/27. elevated wbc CT chest / abdomen / pelvis did not show any apparent source of infection. ID consulted. WBC today 12.8 currently on Primaxin and vanco #10 to complete 10 day course as per ID- to stop abx today 10/09/16 Anemia acute on chronic? Hemoglobin 9.5 on admission, fell as low as 5.6 on 09/29/16. No obvious GI bleeding, but stools heme +. CT abdomen and pelvis did not show any apparent retroperitoneal or intra- abdominal bleed. received 2units prbc hb 7.5 on 10/02/16 and received one more unit of prbc hb 9.6 Thrombocytopenia platelets 106 today hit studies negative GENERAL DEBILITATION Increase activity as tolerated. Malnutrition nutrition consult not liking boost may try different drink received parenteral nutrition Depression? crying wants to go home not participating in therapy poor appetite consulted psychiatry need competence evaluation VTE PROPHYLAXIS SQ heparin stopped 09/28 due to thrombocytopenia / anemia. SCD's. DISPOSITION monitor in medical floor plan for [facility] soon need to participate in pt/ot social service for d/c planning Vital Signs: Date Time Temp Pulse Resp B/P (MAP) Pulse Ox O2 Delivery O2 Flow Rate FiO2 10/10/16 16:03 36.5 99 18 137/81 (99) 96 Room Air 10/10/16 16:00 Room Air 10/10/16 07:45 Room Air 10/10/16 07:45 36.9 94 16 130/77 (94) 95 Room Air 10/10/16 00:00 Room Air 10/09/16 23:47 36.9 92 18 147/72 (97) 92 Room Air Lab Results: Results Past 24 Hours Test 10/09/16 20:05 10/10/16 03:17 10/10/16 04:44 10/10/16 05:53 Range/Units Bedside Glucose 110 96 70-90 mg/dl Total Bilirubin 9.3 0.2-1 mg/dl Direct Bilirubin 7.0 0-0.2 mg/dl Aspartate Amino Transf (AST/SGOT) 48 15-37 U/L Alanine Aminotransferase (ALT/SGPT) 13 12-78 U/L Alkaline Phosphatase 411 45-117 U/L Total Protein 4.9 6.4-8.2 gm/dl Albumin 2.1 3.4-5.0 gm/dl Test 10/10/16 08:22 10/10/16 14:09 10/10/16 14:43 Range/Units Bedside Glucose 103 127 70-90 mg/dl Sodium Level 132 136-145 mmol/L Potassium Level 3.4 3.5-5.1 mmol/L Chloride Level 98 98-107 mmol/L Carbon Dioxide Level 24 21-32 mmol/L Anion Gap 10.0 3-11 mmol/L Blood Urea Nitrogen 53 7-18 mg/dl Creatinine 2.10 0.60-1.20 mg/dl Est Creatinine Clear Calc Drug Dose 30.3 ml/min Estimated GFR () 29.3 Estimated GFR (Non- 25.3 BUN/Creatinine Ratio 25.1 10-20 Random Glucose 111 70-99 mg/dl Calcium Level 10.3 8.5-10.1 mg/dl
[2016-10-10 23:50] VITALS: BP 126/69; PULSE 96; TEMP 36.6; O2SAT 94
[2016-10-11] VITALS (18 sets, daily range): BP systolic 80–138; BP diastolic 32–74; PULSE 88–113; TEMP 36.7–37.2; O2SAT 95
[2016-10-11] MEDS: MICONAZOLE NITRATE POWDER 43 GM EXT SCH ×2 (08:23→21:00)
[2016-10-11] MEDS: BOOST VANILLA PUDDING CUP PO SCH ×2 (08:23→17:00)
[2016-10-11] MEDS: MULTIVITAMIN TAB PO SCH (08:24)
[2016-10-11] MEDS: RIFAXIMIN TAB 550 MG TAB PO SCH ×2 (08:24→21:06)
[2016-10-11] MEDS: URSODIOL 300 MG CAP PO SCH ×2 (08:24→21:06)
[2016-10-11] MEDS: PANTOprazole SOD 40 MG TAB PO SCH (08:24)
[2016-10-11] MEDS: MIDODRINE 2.5 MG TAB PO SCH ×3 (08:25→17:59)
[2016-10-11] MEDS ORDERED: POTASSIUM CHLORIDE 20 MEQ TABCR PO STA (10:40)
--- NOTE | 2016-10-11 11:52 | Progress Note ---
Internal Med Progress Note Date of Service: Oct 11, 2016. Provider Documentation: SUBJECTIVE: The patient was seen and examined Complains of Headache but does not want any medications Very depressed and crying during conversation Denies any significant symptoms OBJECTIVE: Vital Signs-as noted below Exam: General-No distress at rest Eyes-Normal,jaundice ENT-Normal Neck-Supple Lungs-Decreased breath sound bilaterally Heart-Regular ,no murmur appreciated Abdomen-Benign,no masses Extremities-Trace edema bilaterally Neuro-AAOx3 Lab data as noted below. ASSESSMENT & PLAN: 60f was admitted for right shoulder pain 6 weeks post ORIF of right proximal humerus and S/P RIGHT REVERSE TOTAL SHOULDER ARTHROPLASTY, REMOVAL OF DEEP HARDWARE RIGHT PROXIMAL HUMERUS, DEBRIDEMENT OF OLECRANON ULCER RIGHT ELBOW. Post op course was complicated by volume overload and possible aspiration pneumonia with Resp failure requiring intubation. Her renal function worsened and requiring dialysis.Hepatorenal syndrome was considered. Has hx of Biliary cirrhosis. S/P Extubation, requiring midodrine to keep BP elevated. required prbc transfusion .Gi and Nephrology following. May need lobsterman dialysis as per nephrology. Plan for [facility] when more stable.Bilirubin keep climbing but GI want to wait and see. Gi recommends f/u with liver/kidney transplant at [place].Plan for TPN as patient oral intake not adequate at this time and refusing Tube feeds. Active issues are to complete iv abx which are done 10/09/16, f/u lfts for rising bilirubin levels and nutrition and pt/ot. Started TPN for few days and stopped later on.Plan for [facility] when more stable, hopefully next week. Wants to go home and thinks that her is not taking her home Hospital course so far: Acute hypoxic respiratory failure 09/20/16 secondary to fluid overload from IV fluids and albumin; Aspiration pneumonia Required intubation/mechanical ventilation. Improved with dialysis. Extubated 09/24/16. Now oxygenating well and stable on room air. Remains stable and clinically improving very slowly Hx of biliary cirrhosis with portal hypertension. GI and nutrition consulted. Bilirubin remains elevated ~9 ON rifaximin.Restarted obeticholic acid. Appreciate GI input Liver US10/03/16- no acute findings Monitor LFTs Chronic kidney disease stage 3 with acute kidney injury - ATN vs hepatorenal syndrome. Placement of hemodialysis catheter 09/27 and started on dialysis Management per Nephrology. May need lobsterman dialysis Hypotension Stable on midodrine Continue same for now Stable now Altered mental status/encephalopathy secondary to multifactorial delirium. Head CT negative for acute event. Continue rifaximin for hepatic encephalopathy. Appreciate Psychiatry Evaluation Decision making capacity is intact Aspiration pneumonia Received IV vancomycin and piperacillin/tazobactam for possible aspiration pneumonia. Receiving fluconazole for Melissa albicans noted in sputum and bronchial washings. Loose stools - negative for C. difficile 09/27. CT chest / abdomen / pelvis did not show any apparent source of infection. ID consulted. WBC today 12.8 currently on Primaxin and vanco #10 to complete 10 day course as per ID- to stop abx today 10/09/16 Antibiotic course is done Anemia acute on chronic? Hemoglobin 9.5 on admission, fell as low as 5.6 on 09/29/16. No obvious GI bleeding, but stools heme +. CT abdomen and pelvis did not show any apparent retroperitoneal or intra- abdominal bleed. Received 3 units of PRBC so far Hb Stable Thrombocytopenia platelets 106 today hit studies negative Platelets 76 on 10/11/16 GENERAL DEBILITATION Increase activity as tolerated. Malnutrition nutrition consult not liking boost may try different drink received parenteral nutrition and discontinued Depression Very depressed Cries during conversation Appreciate Psychiatric evaluation Does not want any medication VTE PROPHYLAXIS SQ heparin stopped 09/28 due to thrombocytopenia / anemia. SCD's. DISPOSITION monitor in medical floor plan for [facility] soon need to participate in pt/ot social service for d/c planning Discussed with the Vital Signs: Date Time Temp Pulse Resp B/P (MAP) Pulse Ox O2 Delivery O2 Flow Rate FiO2 10/11/16 12:00 109 97/49 10/11/16 11:45 107 98/54 10/11/16 11:30 113 111/51 10/11/16 11:15 106 102/47 10/11/16 11:00 107 90/42 10/11/16 10:45 102 80/32 10/11/16 10:30 104 93/44 10/11/16 10:15 102 94/47 10/11/16 10:00 107 100/47 10/11/16 09:45 104 104/47 10/11/16 09:30 94 99/51 10/11/16 09:15 88 114/52 10/11/16 09:02 36.7 91 125/58 (80) 10/11/16 07:40 36.8 97 18 138/74 (95) 95 Room Air 10/11/16 07:17 Room Air 10/10/16 23:50 36.6 96 16 126/69 (88) 94 Room Air 10/10/16 23:35 Room Air 10/10/16 16:03 36.5 99 18 137/81 (99) 96 Room Air 10/10/16 16:00 Room Air Lab Results: Results Past 24 Hours Test 10/10/16 14:09 10/10/16 14:43 10/10/16 20:01 10/11/16 06:32 Range/Units Bedside Glucose 127 90 70-90 mg/dl Sodium Level 132 136-145 mmol/L Potassium Level 3.4 3.5-5.1 mmol/L Chloride Level 98 98-107 mmol/L Carbon Dioxide Level 24 21-32 mmol/L Anion Gap 10.0 3-11 mmol/L Blood Urea Nitrogen 53 7-18 mg/dl Creatinine 2.10 0.60-1.20 mg/dl Est Creatinine Clear Calc Drug Dose 30.3 ml/min Estimated GFR () 29.3 Estimated GFR (Non- 25.3 BUN/Creatinine Ratio 25.1 10-20 Random Glucose 111 70-99 mg/dl Calcium Level 10.3 8.5-10.1 mg/dl Total Bilirubin 9.8 0.2-1 mg/dl Direct Bilirubin 7.8 0-0.2 mg/dl Aspartate Amino Transf (AST/SGOT) 52 15-37 U/L Alanine Aminotransferase (ALT/SGPT) 11 12-78 U/L Alkaline Phosphatase 417 45-117 U/L Total Protein 4.8 6.4-8.2 gm/dl Albumin 2.1 3.4-5.0 gm/dl
--- NOTE | 2016-10-11 12:09 | Psychiatric Progress Notes ---
Psychiatric Progress Note Date of Service Oct 11, 2016. Notes clarification: capacity to make medical decisions is addressed in impression in initial consult.
--- NOTE | 2016-10-11 12:53 | PROGRESS NOTE ---
DATE: 10/11/2016 SUBJECTIVE: The patient was seen during dialysis. She is tolerating dialysis fairly well. She is tearful and is crying, but she did not tell me why. She denies having any nausea, vomiting, chest pain, or shortness of breath. OBJECTIVE: VITAL SIGNS: Her blood pressure is slightly low at around 98 systolic, but this is right at the end of dialysis. HEENT: Mucous membrane is moist. NECK: Supple. No jugular venous distention. CATHETER: Dialysis catheter is working fine without any issues. ABDOMEN: Soft, nontender. EXTREMITIES: Shows trace edema. LABORATORY TESTS: Blood work from yesterday shows sodium 132, potassium 3.4, BUN 53, creatinine 2.1. She is making urine, but it does not seem to be started. ASSESSMENT AND PLAN: Acute kidney injury. This is secondary to severe acute tubular necrosis needing dialysis 3 days a week. We will continue dialysis as prescribed today 3 hours and take about 1.5 kilos off on a 3K bath. Catheter is working fine. However, I do want to know her exact urine output to see whether she has had any renal recovery or not because her creatinine is typically running in the 2s before dialysis and high 1s after dialysis. So it is quite possible that she may have had renal recovery. If we can do accurate urine output charting, I would even consider putting a Esposito catheter for at least couple of days to know the exact urine output. [place]
[2016-10-12 05:35] LABS: HEMATOCRIT 30.7 % (37-47); MEAN CELL VOLUME 91.4 fL (80-100); MEAN CORPUSCULAR HEMOGLOBIN 30.1 pg (25-34); MEAN CORPUSCULAR HGB CONC 32.9 g/dl (32-36); MEAN PLATELET VOLUME 10.6 fL (7.4-10.4); PLATELET COUNT 100 K/uL (130-400); RED BLOOD COUNT 3.36 M/uL (4.2-5.4); WHITE BLOOD COUNT 9.21 K/uL (4.8-10.8)
[2016-10-12 06:08] LABS: BUN/CREATININE RATIO 16.5 (10-20); CALCIUM 9.6 mg/dl (8.5-10.1); CREATININE 1.7 mg/dl (0.60-1.20); PHOSPHORUS 2.4 mg/dl (2.5-4.9); POTASSIUM 3.8 mmol/L (3.5-5.1)
[2016-10-12 07:16] VITALS: BP 128/70; PULSE 97; TEMP 36.8; O2SAT 96
[2016-10-12] MEDS: MICONAZOLE NITRATE POWDER 43 GM EXT SCH ×2 (08:58→21:00)
[2016-10-12] MEDS: BOOST VANILLA PUDDING CUP PO SCH ×2 (09:00→17:00)
[2016-10-12] MEDS: MIDODRINE 2.5 MG TAB PO SCH ×3 (09:01→19:24)
[2016-10-12] MEDS: RIFAXIMIN TAB 550 MG TAB PO SCH ×2 (09:01→22:23)
[2016-10-12] MEDS: PANTOprazole SOD 40 MG TAB PO SCH (09:01)
[2016-10-12] MEDS: URSODIOL 300 MG CAP PO SCH ×2 (09:01→22:23)
[2016-10-12] MEDS: MULTIVITAMIN TAB PO SCH (09:01)
--- NOTE | 2016-10-12 10:19 | Nephrology Progress Note ---
Nephrology Progress Note Date of Service: Oct 12, 2016. Subjective no perez but daily voids recorded w/o amount >> pt tearful at thought of putting in a perez and tearful generally; c/o ongoing pain liane on backside; frustrated at multiple health issues; creat under 2 after HD; only 2.1 on day of HD Objective Date Time Temp Pulse Resp B/P (MAP) Pulse Ox O2 Delivery O2 Flow Rate FiO2 10/12/16 07:16 36.8 97 16 128/70 (89) 96 Room Air 10/11/16 23:50 Room Air 10/11/16 23:24 36.8 99 16 114/65 (81) 95 Room Air 10/11/16 15:50 95 Room Air 10/11/16 15:29 37.2 101 16 109/70 (83) 95 Room Air 10/11/16 12:18 36.7 104 100/44 (62) 10/11/16 12:00 109 97/49 10/11/16 11:45 107 98/54 10/11/16 11:30 113 111/51 10/11/16 11:15 106 102/47 10/11/16 11:00 107 90/42 10/11/16 10:45 102 80/32 10/11/16 10:30 104 93/44 10/11/16 10:15 102 94/47 10/11/16 10:00 107 100/47 10/11/16 09:45 104 104/47 10/11/16 09:30 94 99/51 10/11/16 09:15 88 114/52 10/11/16 09:02 36.7 91 125/58 (80) Physical Exam: General-on ra, slight psychomotor delay, tired Eyes-+scleral icterus ENT-dry mm Neck-supple Lungs-improved air entry BL Heart-rrr Abdomen-bs+/soft; no perez Extremities-trace - trace dependent and scant peripheral edema; R arm in sling Neuro-oriented to self and place, fluent/appropriate though delayed speech Current Inpatient Medications Medications (Trade) Dose Ordered Sig/Michael Route Start Time Stop Time Status Last Admin Dose Admin Miconazole Nitrate (Desenex Powder) 1 appln BID EXT 09/17/16 21:00 10/17/16 20:59 10/11/16 08:23 1 APPLN Midodrine (Proamatine Tab) 5 mg TID@0800,1200,1800 PO 09/19/16 18:00 10/19/16 17:59 10/11/16 17:59 5 MG Levalbuterol (Xopenex 0.63 Mg/ 3 Ml Neb) 0.63 mg Q6H PRN INH 09/20/16 08:30 10/20/16 08:29 Rifaximin (Xifaxan Tab) 550 mg BID PO 09/22/16 21:00 10/22/16 20:59 10/11/16 21:06 550 MG Multivitamins (Multivitamin Tab) 1 tab QAM PO 09/25/16 09:00 10/25/16 08:59 10/11/16 08:24 1 TAB Heparin Sodium (Porcine) (Heparin 10 Unit/ ml 5 ml Flush) 5 ml PRN PRN FLUSH 09/25/16 02:00 10/25/16 01:59 10/12/16 05:25 5 ML Metoclopramide HCl (Reglan Inj) 5 mg Q6H PRN IV 09/27/16 12:45 10/25/16 12:44 10/07/16 10:52 5 MG Prednisone (PredniSONE TAB) 5 mg DAILY PO 09/28/16 09:00 10/28/16 08:59 10/11/16 08:24 5 MG Ursodiol (Actigall Cap) 600 mg BID PO 09/28/16 21:00 10/28/16 20:59 10/11/16 21:06 600 MG Pantoprazole Sodium (Protonix Tab) 40 mg QAM PO 09/29/16 09:00 10/29/16 08:59 10/11/16 08:24 40 MG Oxycodone HCl (Roxicodone Immediate Rel Tab) 5 mg Q8H PRN PO 10/01/16 18:15 10/15/16 18:14 10/06/16 21:59 5 MG Hydromorphone HCl (Dilaudid Inj) 0.25 mg Q4H PRN IV 10/01/16 18:15 10/15/16 18:14 10/03/16 13:05 0.25 MG Non-Formulary Medication (Obeticholic Acid (Ocaliva)) 5 mg Sa@0900 PO 10/02/16 14:00 11/01/16 13:59 10/09/16 08:10 5 MG Enteral Nutritional Formula (Boost Pudding) 1 cup BID17 PO 10/05/16 17:00 11/04/16 16:59 10/10/16 07:38 1 CUP Last 24 Hours Test 10/12/16 05:24 White Blood Count 9.21 K/uL Red Blood Count 3.36 M/uL Hemoglobin 10.1 g/dL Hematocrit 30.7 % Mean Corpuscular Volume 91.4 fL Mean Corpuscular Hemoglobin 30.1 pg Mean Corpuscular Hemoglobin Concent 32.9 g/dl RDW Standard Deviation 74.7 fL RDW Coefficient of Variation 23.6 % Platelet Count 100 K/uL Mean Platelet Volume 10.6 fL Sodium Level 134 mmol/L Potassium Level 3.8 mmol/L Chloride Level 100 mmol/L Carbon Dioxide Level 28 mmol/L Anion Gap 6.0 mmol/L Blood Urea Nitrogen 28 mg/dl Creatinine 1.70 mg/dl Est Creatinine Clear Calc Drug Dose 36.8 ml/min Estimated GFR () 37.9 Estimated GFR (Non- 32.7 BUN/Creatinine Ratio 16.5 Random Glucose 81 mg/dl Calcium Level 9.6 mg/dl Phosphorus Level 2.4 mg/dl Magnesium Level 2.0 mg/dl Total Bilirubin 11.4 mg/dl Direct Bilirubin 9.1 mg/dl Aspartate Amino Transf (AST/SGOT) 63 U/L Alanine Aminotransferase (ALT/SGPT) 13 U/L Alkaline Phosphatase 464 U/L Total Protein 5.3 gm/dl Albumin 2.2 gm/dl Assessment & Plan 60 yo female with biliary cirrhosis with anuric ileana/atn vs HRS who required intubation, extubated 09/23. on daily dialysis 09/20-09/25; 09/27-. on intermittent HD ever since but may be having renal recovery may no longer be anuric; her low creatinine reflects poor nutrition/ longstanding critical illness/advanced liver disease; still it is reasonable to evaluate for renal recovery -ideally would place perez but she resists this and will try just logging output > strict I/O 1-2 days; hold dialysis but use prn; monitor volume status -acute on chronic anemia >> cont epo on hd Appreciate consult. Care coordinated with Dr Negro.
--- NOTE | 2016-10-12 11:52 | Progress Note ---
Internal Med Progress Note Date of Service: Oct 12, 2016. Provider Documentation: SUBJECTIVE: The patient was seen and examined Very depressed and crying during conversation Some pain in right lower extremity Says ,she can not move it due pain and swelling OBJECTIVE: Vital Signs-as noted below Exam: General-No distress at rest Eyes-Normal,jaundice ENT-Normal Neck-Supple Lungs-Decreased breath sound bilaterally Heart-Regular ,no murmur appreciated Abdomen-Benign,no masses Extremities-Trace edema bilaterally Right lower extremity is minimally swollen Minimal to no tenderness No joint pain on movement Neuro-AAOx3 Lab data as noted below. ASSESSMENT & PLAN: 60f was admitted for right shoulder pain 6 weeks post ORIF of right proximal humerus and S/P RIGHT REVERSE TOTAL SHOULDER ARTHROPLASTY, REMOVAL OF DEEP HARDWARE RIGHT PROXIMAL HUMERUS, DEBRIDEMENT OF OLECRANON ULCER RIGHT ELBOW. Post op course was complicated by volume overload and possible aspiration pneumonia with Resp failure requiring intubation. Her renal function worsened and requiring dialysis.Hepatorenal syndrome was considered. Has hx of Biliary cirrhosis. S/P Extubation, requiring midodrine to keep BP elevated. required prbc transfusion .Gi and Nephrology following. May need slip tender dialysis as per nephrology. Plan for [facility] when more stable.Bilirubin keep climbing but GI want to wait and see. Gi recommends f/u with liver/kidney transplant at [place].Plan for TPN as patient oral intake not adequate at this time and refusing Tube feeds. Active issues are to complete iv abx which are done 10/09/16, f/u lfts for rising bilirubin levels and nutrition and pt/ot. Started TPN for few days and stopped later on.Plan for [facility] when more stable, hopefully next week. Wants to go home and thinks that her is not taking her home Hospital course so far: Acute hypoxic respiratory failure 09/20/16 secondary to fluid overload from IV fluids and albumin; Aspiration pneumonia Required intubation/mechanical ventilation. Improved with dialysis. Extubated 09/24/16. Now oxygenating well and stable on room air. Remains stable and clinically improving very slowly No new symptoms Hx of biliary cirrhosis with portal hypertension. GI and nutrition consulted. Bilirubin remains elevated ~9 ON rifaximin.Restarted obeticholic acid. Appreciate GI input Liver US10/03/16- no acute findings Monitor LFTs-LFTs are better but the bilirubin is going up Chronic kidney disease stage 3 with acute kidney injury - ATN vs hepatorenal syndrome. Placement of hemodialysis catheter 09/27 and started on dialysis Management per Nephrology. May need detention dialysis Creatinine is better today at 1,7 Will try to document the 24 hour urine output and see the need for Dialysis Hypotension Stable on midodrine Continue same for now Stable now Altered mental status/encephalopathy secondary to multifactorial delirium. Head CT negative for acute event. Continue rifaximin for hepatic encephalopathy. Appreciate Psychiatry Evaluation Decision making capacity is intact Aspiration pneumonia Received IV vancomycin and piperacillin/tazobactam for possible aspiration pneumonia. Receiving fluconazole for Melissa albicans noted in sputum and bronchial washings. Loose stools - negative for C. difficile 09/27. CT chest / abdomen / pelvis did not show any apparent source of infection. ID consulted. WBC 12.8-normalized currently on Primaxin and vanco #10 to complete 10 day course as per ID- to stop abx today 10/09/16 Antibiotic course is done Anemia acute on chronic? Hemoglobin 9.5 on admission, fell as low as 5.6 on 09/29/16. No obvious GI bleeding, but stools heme +. CT abdomen and pelvis did not show any apparent retroperitoneal or intra- abdominal bleed. Received 3 units of PRBC so far Hb Stable Thrombocytopenia platelets 106 today hit studies negative Platelets 76 on 10/11/16 GENERAL DEBILITATION Increase activity as tolerated. Malnutrition nutrition consult not liking boost may try different drink received parenteral nutrition and discontinued Depression Very depressed Cries during conversation Appreciate Psychiatric evaluation Does not want any medication VTE PROPHYLAXIS SQ heparin stopped 09/28 due to thrombocytopenia / anemia. SCD's. Has right Lower extremity swelling-will check US DISPOSITION monitor in medical floor plan for [facility] soon need to participate in pt/ot social service for d/c planning Discussed with the Vital Signs: Date Time Temp Pulse Resp B/P (MAP) Pulse Ox O2 Delivery O2 Flow Rate FiO2 10/12/16 07:16 36.8 97 16 128/70 (89) 96 Room Air 10/11/16 23:50 Room Air 10/11/16 23:24 36.8 99 16 114/65 (81) 95 Room Air 10/11/16 15:50 95 Room Air 10/11/16 15:29 37.2 101 16 109/70 (83) 95 Room Air 10/11/16 12:18 36.7 104 100/44 (62) 10/11/16 12:00 109 97/49 Lab Results: Results Past 24 Hours Test 10/12/16 05:24 Range/Units White Blood Count 9.21 4.8-10.8 K/uL Red Blood Count 3.36 4.2-5.4 M/uL Hemoglobin 10.1 12.0-16.0 g/dL Hematocrit 30.7 37-47 % Mean Corpuscular Volume 91.4 80-100 fL Mean Corpuscular Hemoglobin 30.1 25-34 pg Mean Corpuscular Hemoglobin Concent 32.9 32-36 g/dl RDW Standard Deviation 74.7 36.4-46.3 fL RDW Coefficient of Variation 23.6 11.5-14.5 % Platelet Count 100 130-400 K/uL Mean Platelet Volume 10.6 7.4-10.4 fL Sodium Level 134 136-145 mmol/L Potassium Level 3.8 3.5-5.1 mmol/L Chloride Level 100 98-107 mmol/L Carbon Dioxide Level 28 21-32 mmol/L Anion Gap 6.0 3-11 mmol/L Blood Urea Nitrogen 28 7-18 mg/dl Creatinine 1.70 0.60-1.20 mg/dl Est Creatinine Clear Calc Drug Dose 36.8 ml/min Estimated GFR () 37.9 Estimated GFR (Non- 32.7 BUN/Creatinine Ratio 16.5 10-20 Random Glucose 81 70-99 mg/dl Calcium Level 9.6 8.5-10.1 mg/dl Phosphorus Level 2.4 2.5-4.9 mg/dl Magnesium Level 2.0 1.8-2.4 mg/dl Total Bilirubin 11.4 0.2-1 mg/dl Direct Bilirubin 9.1 0-0.2 mg/dl Aspartate Amino Transf (AST/SGOT) 63 15-37 U/L Alanine Aminotransferase (ALT/SGPT) 13 12-78 U/L Alkaline Phosphatase 464 45-117 U/L Total Protein 5.3 6.4-8.2 gm/dl Albumin 2.2 3.4-5.0 gm/dl
--- NOTE | 2016-10-12 14:28 | DIAGNOSTIC IMAGING REPORT ---
RIGHT LOWER EXTREMITY VENOUS DOPPLER CLINICAL HISTORY: Evaluate for deep venous thrombus. COMPARISON STUDY: No previous studies for comparison. TECHNIQUE: Sonography of the deep venous system of the right lower extremity was performed. Compression and augmentation were evaluated. FINDINGS: The common femoral, superficial femoral and popliteal veins were compressible. Augmentation was normal. Flow was shown within the deep calf vessels although evaluation of the calf vessels was suboptimal on this exam. Note was made of a 10.7 x 2.5 x 4.5 cm complex cystic abnormality of the right thigh. This was adjacent to the greater saphenous vein. IMPRESSION: 1. Technically difficult exam but no evidence of deep venous thrombus within the right lower extremity. 2. 10.7 x 2.5 x 4.5 cm complex right thigh fluid collection within the deep soft tissues. The sonographic appearance is nonspecific but this may reflect a resolving hematoma or seroma. Abscess is considered less likely. Electronically signed by: Zain Tom M.D. 10/12/2016 2:27 PM Dictated Date/Time: 10/12/2016 2:24 PM
[2016-10-12 15:08] VITALS: BP 127/74; PULSE 98; TEMP 36.8; O2SAT 96
--- NOTE | 2016-10-12 15:12 | Hematology/Oncology Prog Note ---
Hematology/Onc Progress Note Date of Service Oct 12, 2016. Medications Current Inpatient Medications Medications (Trade) Dose Ordered Sig/Michael Route Start Time Stop Time Status Last Admin Dose Admin Miconazole Nitrate (Desenex Powder) 1 appln BID EXT 09/17/16 21:00 10/17/16 20:59 10/11/16 08:23 1 APPLN Midodrine (Proamatine Tab) 5 mg TID@0800,1200,1800 PO 09/19/16 18:00 10/19/16 17:59 10/12/16 09:01 5 MG Levalbuterol (Xopenex 0.63 Mg/ 3 Ml Neb) 0.63 mg Q6H PRN INH 09/20/16 08:30 10/20/16 08:29 Rifaximin (Xifaxan Tab) 550 mg BID PO 09/22/16 21:00 10/22/16 20:59 10/12/16 09:01 550 MG Multivitamins (Multivitamin Tab) 1 tab QAM PO 09/25/16 09:00 10/25/16 08:59 10/12/16 09:01 1 TAB Heparin Sodium (Porcine) (Heparin 10 Unit/ ml 5 ml Flush) 5 ml PRN PRN FLUSH 09/25/16 02:00 10/25/16 01:59 10/12/16 05:25 5 ML Metoclopramide HCl (Reglan Inj) 5 mg Q6H PRN IV 09/27/16 12:45 10/25/16 12:44 10/07/16 10:52 5 MG Prednisone (PredniSONE TAB) 5 mg DAILY PO 09/28/16 09:00 10/28/16 08:59 10/12/16 09:01 5 MG Ursodiol (Actigall Cap) 600 mg BID PO 09/28/16 21:00 10/28/16 20:59 10/12/16 09:01 600 MG Pantoprazole Sodium (Protonix Tab) 40 mg QAM PO 09/29/16 09:00 10/29/16 08:59 10/12/16 09:01 40 MG Oxycodone HCl (Roxicodone Immediate Rel Tab) 5 mg Q8H PRN PO 10/01/16 18:15 10/15/16 18:14 10/06/16 21:59 5 MG Hydromorphone HCl (Dilaudid Inj) 0.25 mg Q4H PRN IV 10/01/16 18:15 10/15/16 18:14 10/03/16 13:05 0.25 MG Non-Formulary Medication (Obeticholic Acid (Ocaliva)) 5 mg Sa@0900 PO 10/02/16 14:00 11/01/16 13:59 10/09/16 08:10 5 MG Enteral Nutritional Formula (Boost Pudding) 1 cup BID17 PO 10/05/16 17:00 11/04/16 16:59 10/10/16 07:38 1 CUP Subjective Patient was rounded on at bedside. She states she feels fair; patient was leaving for RLE US for edema at time of visit. Her was at bedside; states she may be discharged in next few days to [place] for rehab. Vital Signs Vital Signs Past 12 Hours Date Time Temp Pulse Resp B/P (MAP) Pulse Ox O2 Delivery O2 Flow Rate FiO2 10/12/16 07:16 36.8 97 16 128/70 (89) 96 Room Air Physical Exam Constitutional: Level of Distress: NAD, chronically ill Lungs: Respiratory Effort: no dyspnea Extremities: edema (of RLE) Laboratory 10/12/16 05:24 10/10/16 14:43 10/12/16 05:24 Test 10/09/16 20:05 10/10/16 03:17 10/10/16 05:53 10/10/16 08:22 Bedside Glucose 110 mg/dl (70-90) 96 mg/dl (70-90) 103 mg/dl (70-90) Total Bilirubin 9.3 mg/dl (0.2-1) Direct Bilirubin 7.0 mg/dl (0-0.2) Aspartate Amino Transf (AST/SGOT) 48 U/L (15-37) Alanine Aminotransferase (ALT/SGPT) 13 U/L (12-78) Alkaline Phosphatase 411 U/L (45-117) Total Protein 4.9 gm/dl (6.4-8.2) Albumin 2.1 gm/dl (3.4-5.0) Test 10/10/16 14:09 10/10/16 14:43 10/10/16 20:01 10/11/16 06:32 Bedside Glucose 127 mg/dl (70-90) 90 mg/dl (70-90) Anion Gap 10.0 mmol/L (3-11) Est Creatinine Clear Calc Drug Dose 30.3 ml/min Estimated GFR () 29.3 Estimated GFR (Non- 25.3 BUN/Creatinine Ratio 25.1 (10-20) Calcium Level 10.3 mg/dl (8.5-10.1) Total Bilirubin 9.8 mg/dl (0.2-1) Direct Bilirubin 7.8 mg/dl (0-0.2) Aspartate Amino Transf (AST/SGOT) 52 U/L (15-37) Alanine Aminotransferase (ALT/SGPT) 11 U/L (12-78) Alkaline Phosphatase 417 U/L (45-117) Total Protein 4.8 gm/dl (6.4-8.2) Albumin 2.1 gm/dl (3.4-5.0) Test 10/12/16 05:24 Red Blood Count 3.36 M/uL (4.2-5.4) Mean Corpuscular Volume 91.4 fL (80-100) Mean Corpuscular Hemoglobin 30.1 pg (25-34) Mean Corpuscular Hemoglobin Concent 32.9 g/dl (32-36) RDW Standard Deviation 74.7 fL (36.4-46.3) RDW Coefficient of Variation 23.6 % (11.5-14.5) Mean Platelet Volume 10.6 fL (7.4-10.4) Anion Gap 6.0 mmol/L (3-11) Est Creatinine Clear Calc Drug Dose 36.8 ml/min Estimated GFR () 37.9 Estimated GFR (Non- 32.7 BUN/Creatinine Ratio 16.5 (10-20) Calcium Level 9.6 mg/dl (8.5-10.1) Phosphorus Level 2.4 mg/dl (2.5-4.9) Magnesium Level 2.0 mg/dl (1.8-2.4) Total Bilirubin 11.4 mg/dl (0.2-1) Direct Bilirubin 9.1 mg/dl (0-0.2) Aspartate Amino Transf (AST/SGOT) 63 U/L (15-37) Alanine Aminotransferase (ALT/SGPT) 13 U/L (12-78) Alkaline Phosphatase 464 U/L (45-117) Total Protein 5.3 gm/dl (6.4-8.2) Albumin 2.2 gm/dl (3.4-5.0) Assessment & Plan 1. Anemia of multiple mechanisms * Patient has esophageal varices, S/P TIPS , underwent right shoulder surgery, postoperative course complicated by acute on chronic renal failure, volume overload, hepatic encephalopathy, requiring dialysis support * Had baseline hemoglobin around 8-9 g/dL before the surgery * Recently hemoglobin level dropped down to around 5.6 g/dL on 09/29/2016, stool for occult blood testing positive, CT scan of the abdomen and pelvis showed no evidence of retroperitoneal hematoma * Most likely she had GI blood loss * No iron deficiency, vit B 12 or folate deficiency * Received 3 units of PRBC- last PRBC 10/02/16 * May have mild hemolysis with the worsening liver function test, abnormal kidney function test with recent hemodialysis but not expecting significant drop due to this * She is receiving Procrit therapy under the guidance of Nephrology * Doppler today shows potential hematoma 5", which could have contributed to anemia picture * Hgb has improved to 10 g/dL range * Continue to trend CBCD regularly 2. 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 Patient could have hematology follow up after discharge if continues to have issue with anemia, thrombocytopenia. I performed history and physical examination of the patient. I have discussed the patient's case, impression and plan with Nidia Darden PA-C. Her note reflects my findings and plan. Dr. Robby Carson Hem/Onc
[2016-10-13 00:25] VITALS: BP 112/67; PULSE 84; TEMP 36.9; O2SAT 94
[2016-10-13 07:27] VITALS: BP 133/80; PULSE 94; TEMP 36.8; O2SAT 95
[2016-10-13] MEDS: MIDODRINE 2.5 MG TAB PO SCH ×3 (08:00→18:04)
[2016-10-13 08:39] LABS: HEMATOCRIT 28.6 % (37-47); MEAN CELL VOLUME 91.4 fL (80-100); MEAN CORPUSCULAR HEMOGLOBIN 30.4 pg (25-34); MEAN CORPUSCULAR HGB CONC 33.2 g/dl (32-36); MEAN PLATELET VOLUME 9.1 fL (7.4-10.4); PLATELET COUNT 107 K/uL (130-400); RED BLOOD COUNT 3.13 M/uL (4.2-5.4); WHITE BLOOD COUNT 9.01 K/uL (4.8-10.8)
[2016-10-13] MEDS: MICONAZOLE NITRATE POWDER 43 GM EXT SCH ×2 (09:00→21:00)
[2016-10-13] MEDS: MULTIVITAMIN TAB PO SCH (09:00)
[2016-10-13] MEDS: BOOST VANILLA PUDDING CUP PO SCH ×2 (09:00→17:00)
[2016-10-13] MEDS: RIFAXIMIN TAB 550 MG TAB PO SCH ×2 (09:00→21:43)
[2016-10-13] MEDS: URSODIOL 300 MG CAP PO SCH ×2 (09:00→21:43)
[2016-10-13] MEDS: PANTOprazole SOD 40 MG TAB PO SCH (09:00)
[2016-10-13 09:05] LABS: BUN/CREATININE RATIO 15.8 (10-20); CALCIUM 10.3 mg/dl (8.5-10.1); CREATININE 2.4 mg/dl (0.60-1.20); POTASSIUM 3.8 mmol/L (3.5-5.1)
--- NOTE | 2016-10-13 12:29 | Progress Note ---
Internal Med Progress Note Date of Service: Oct 13, 2016. Provider Documentation: SUBJECTIVE: The patient was seen and examined Very depressed and crying during conversation Some pain in right lower extremity Says ,she can not move it due pain and swelling OBJECTIVE: Vital Signs-as noted below Exam: General-No distress at rest Eyes-Yellow ENT-Normal Neck-Supple Lungs-Decreased breath sound bilaterally Heart-Regular ,no murmur appreciated Abdomen-Benign,no masses Extremities-Trace edema bilaterally Right lower extremity is minimally swollen Swelling is more around the right Knee Minimal to no tenderness No joint pain on movement Neuro-AAOx3 Lab data as noted below. ASSESSMENT & PLAN: 60f was admitted for right shoulder pain 6 weeks post ORIF of right proximal humerus and S/P RIGHT REVERSE TOTAL SHOULDER ARTHROPLASTY, REMOVAL OF DEEP HARDWARE RIGHT PROXIMAL HUMERUS, DEBRIDEMENT OF OLECRANON ULCER RIGHT ELBOW. Post op course was complicated by volume overload and possible aspiration pneumonia with Resp failure requiring intubation. Her renal function worsened and requiring dialysis.Hepatorenal syndrome was considered. Has hx of Biliary cirrhosis. S/P Extubation, requiring midodrine to keep BP elevated. required prbc transfusion .Gi and Nephrology following. 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 Plan for [facility] when more stable.Bilirubin keep climbing but GI want to wait and see. Gi recommends f/u with liver/kidney transplant at [place].Plan for TPN as patient oral intake not adequate at this time and refusing Tube feeds. Active issues are to complete iv abx which are done 10/09/16, f/u lfts for rising bilirubin levels and nutrition and pt/ot. Started TPN for few days and stopped later on.Plan for [facility] when more stable, hopefully next week. Wants to go home and thinks that her is not taking her home Hospital course so far: Acute hypoxic respiratory failure 09/20/16 secondary to fluid overload from IV fluids and albumin; Aspiration pneumonia Required intubation/mechanical ventilation. Improved with dialysis. Extubated 09/24/16. Now oxygenating well and stable on room air. Remains stable and clinically improving very slowly No new symptoms Hx of biliary cirrhosis with portal hypertension. GI and nutrition consulted. Bilirubin remains elevated ,worsening ,11 on 10/13/16 ON rifaximin.Restarted obeticholic acid. Appreciate GI input Liver US on 10/03/16- no acute findings Monitor LFTs-LFTs are better but the bilirubin is going up Chronic kidney disease stage 3 with acute kidney injury - ATN vs hepatorenal syndrome. Placement of hemodialysis catheter 09/27 and started on dialysis Management per Nephrology. May need nursing home dialysis Creatinine is better today at 1,7 Will try to document the 24 hour urine output and see the need for Dialysis Kidney function is worse today Hypotension Stable on midodrine Continue same for now Stable now Altered mental status/encephalopathy secondary to multifactorial delirium. Head CT negative for acute event. Continue rifaximin for hepatic encephalopathy. Appreciate Psychiatry Evaluation Decision making capacity is intact Aspiration pneumonia Received IV vancomycin and piperacillin/tazobactam for possible aspiration pneumonia. Receiving fluconazole for Melissa albicans noted in sputum and bronchial washings. Loose stools - negative for C. difficile 09/27. CT chest / abdomen / pelvis did not show any apparent source of infection. ID consulted. WBC 12.8-normalized currently on Primaxin and vanco #10 to complete 10 day course as per ID- to stop abx today 10/09/16 Antibiotic course is done Anemia acute on chronic? Hemoglobin 9.5 on admission, fell as low as 5.6 on 09/29/16. No obvious GI bleeding, but stools heme +. CT abdomen and pelvis did not show any apparent retroperitoneal or intra- abdominal bleed. Received 3 units of PRBC so far Hb Stable >9.0 Thrombocytopenia platelets 106 today hit studies negative Platelets 76 on 10/11/16 GENERAL DEBILITATION Increase activity as tolerated. Malnutrition nutrition consult not liking boost may try different drink received parenteral nutrition and discontinued Depression Very depressed Cries during conversation Appreciate Psychiatric evaluation Does not want any medication VTE PROPHYLAXIS SQ heparin stopped 09/28 due to thrombocytopenia / anemia. SCD's. Has right Lower extremity swelling-will check US Right Knee swelling US:: 10.7 x 2.5 x 4.5 cm complex right thigh fluid collection within the deep soft tissues. The sonographic appearance is nonspecific but this may reflect a resolving hematoma or seroma. Abscess is considered less likely. If symptoms are worse -will consult ortho DISPOSITION monitor [facility] need to participate in pt/ot social service for d/c planning Discussed with the Vital Signs: Date Time Temp Pulse Resp B/P (MAP) Pulse Ox O2 Delivery O2 Flow Rate FiO2 10/13/16 07:27 36.8 94 18 133/80 (97) 95 Room Air 10/13/16 00:40 Room Air 10/13/16 00:25 36.9 84 16 112/67 (82) 94 Room Air 10/12/16 17:30 Room Air 10/12/16 15:08 36.8 98 16 127/74 (91) 96 Room Air Lab Results: Results Past 24 Hours Test 10/13/16 08:28 Range/Units White Blood Count 9.01 4.8-10.8 K/uL Red Blood Count 3.13 4.2-5.4 M/uL Hemoglobin 9.5 12.0-16.0 g/dL Hematocrit 28.6 37-47 % Mean Corpuscular Volume 91.4 80-100 fL Mean Corpuscular Hemoglobin 30.4 25-34 pg Mean Corpuscular Hemoglobin Concent 33.2 32-36 g/dl RDW Standard Deviation 76.3 36.4-46.3 fL RDW Coefficient of Variation 23.7 11.5-14.5 % Platelet Count 107 130-400 K/uL Mean Platelet Volume 9.1 7.4-10.4 fL Sodium Level 133 136-145 mmol/L Potassium Level 3.8 3.5-5.1 mmol/L Chloride Level 98 98-107 mmol/L Carbon Dioxide Level 26 21-32 mmol/L Anion Gap 9.0 3-11 mmol/L Blood Urea Nitrogen 38 7-18 mg/dl Creatinine 2.40 0.60-1.20 mg/dl Est Creatinine Clear Calc Drug Dose 26.2 ml/min Estimated GFR () 25.0 Estimated GFR (Non- 21.5 BUN/Creatinine Ratio 15.8 10-20 Random Glucose 83 70-99 mg/dl Calcium Level 10.3 8.5-10.1 mg/dl Microbiology Results 10/13/16 Urine Culture, Received Pending
[2016-10-13] MEDS: METOCLOPRAMIDE HCL INJ 5 MG/ML 2 ML VIAL IV PRN (13:29)
[2016-10-13 15:10] VITALS: BP 104/64; PULSE 83; TEMP 36.5; O2SAT 98
--- NOTE | 2016-10-13 17:49 | Nephrology Progress Note ---
Nephrology Progress Note Date of Service: Oct 13, 2016. Subjective no urine output documented past 24 hrs but note bladder scan 441 mL this am and nursing able to place perez >> immediately got 100 mL uop brown urine; minimal uop since; no n/v; remains tearful/ exhausted. denies dyspnea; new L knee lesion being evaluated Objective Date Time Temp Pulse Resp B/P (MAP) Pulse Ox O2 Delivery O2 Flow Rate FiO2 10/13/16 07:27 36.8 94 18 133/80 (97) 95 Room Air 10/13/16 00:40 Room Air 10/13/16 00:25 36.9 84 16 112/67 (82) 94 Room Air 10/12/16 17:30 Room Air 10/12/16 15:08 36.8 98 16 127/74 (91) 96 Room Air Physical Exam: General-on ra, slight psychomotor delay, tired but up in chair Eyes-+scleral icterus ENT-dry mm Neck-supple Lungs-improved air entry BL but still quite diminished Heart-rrr Abdomen-bs+/soft; dark brown urine in perez Extremities-trace - 1+ peripheral edema; R arm Neuro-oriented to self and place, fluent/appropriate though delayed speech Current Inpatient Medications Medications (Trade) Dose Ordered Sig/Michael Route Start Time Stop Time Status Last Admin Dose Admin Miconazole Nitrate (Desenex Powder) 1 appln BID EXT 09/17/16 21:00 10/17/16 20:59 10/11/16 08:23 1 APPLN Midodrine (Proamatine Tab) 5 mg TID@0800,1200,1800 PO 09/19/16 18:00 10/19/16 17:59 10/12/16 19:24 5 MG Levalbuterol (Xopenex 0.63 Mg/ 3 Ml Neb) 0.63 mg Q6H PRN INH 09/20/16 08:30 10/20/16 08:29 Rifaximin (Xifaxan Tab) 550 mg BID PO 09/22/16 21:00 10/22/16 20:59 10/12/16 22:23 550 MG Multivitamins (Multivitamin Tab) 1 tab QAM PO 09/25/16 09:00 10/25/16 08:59 10/12/16 09:01 1 TAB Heparin Sodium (Porcine) (Heparin 10 Unit/ ml 5 ml Flush) 5 ml PRN PRN FLUSH 09/25/16 02:00 10/25/16 01:59 10/13/16 08:31 5 ML Metoclopramide HCl (Reglan Inj) 5 mg Q6H PRN IV 09/27/16 12:45 10/25/16 12:44 10/07/16 10:52 5 MG Prednisone (PredniSONE TAB) 5 mg DAILY PO 09/28/16 09:00 10/28/16 08:59 10/12/16 09:01 5 MG Ursodiol (Actigall Cap) 600 mg BID PO 09/28/16 21:00 10/28/16 20:59 10/12/16 22:23 600 MG Pantoprazole Sodium (Protonix Tab) 40 mg QAM PO 09/29/16 09:00 10/29/16 08:59 10/12/16 09:01 40 MG Oxycodone HCl (Roxicodone Immediate Rel Tab) 5 mg Q8H PRN PO 10/01/16 18:15 10/15/16 18:14 10/06/16 21:59 5 MG Hydromorphone HCl (Dilaudid Inj) 0.25 mg Q4H PRN IV 10/01/16 18:15 10/15/16 18:14 10/03/16 13:05 0.25 MG Non-Formulary Medication (Obeticholic Acid (Ocaliva)) 5 mg Sa@0900 PO 10/02/16 14:00 11/01/16 13:59 10/09/16 08:10 5 MG Enteral Nutritional Formula (Boost Pudding) 1 cup BID17 PO 10/05/16 17:00 11/04/16 16:59 10/10/16 07:38 1 CUP Last 24 Hours Test 10/13/16 08:28 Date/Time Source Procedure Growth Status 10/13/16 00:00 Urine , Clean Catch Urine Culture Pending Received Assessment & Plan 60 yo female with biliary cirrhosis with anuric ileana/atn vs HRS who required intubation, extubated 09/23. on daily dialysis 09/20-09/25; 09/27-. on intermittent HD ever since but may be having renal recovery may no longer be anuric; her low creatinine reflects poor nutrition/ longstanding critical illness/advanced liver disease; still it is reasonable to evaluate for renal recovery -as of am 10/13, has perez placed; working on getting sense of intake/output but worry she will not have adequate urine out ; monitor volume status -will give 30 mg IV lasix x 1 to see if she puts out more urine -acute on chronic anemia >> cont epo on hd or intermittently SQ << nephro will dose Appreciate consult. Care coordinated w/ Dr Negro
[2016-10-13] MEDS ORDERED: FUROSEMIDE INJ 30 MG in SYRINGE 0 ML IV ONE (18:00)
[2016-10-14 00:10] VITALS: BP 110/55; PULSE 90; TEMP 36.6; O2SAT 97
[2016-10-14 06:44] LABS: BUN/CREATININE RATIO 16.3 (10-20); CALCIUM 10.2 mg/dl (8.5-10.1); CREATININE 2.8 mg/dl (0.60-1.20); MAGNESIUM 2.1 mg/dl (1.8-2.4); PHOSPHORUS 4.7 mg/dl (2.5-4.9); POTASSIUM 3.5 mmol/L (3.5-5.1)
--- NOTE | 2016-10-14 06:53 | DIAGNOSTIC IMAGING REPORT ---
CHEST ONE VIEW PORTABLE CLINICAL HISTORY: VOLUME STATUS dyspnea COMPARISON STUDY: 09/29/2016 FINDINGS: Chronic elevation right hemidiaphragm. Permacath superior vena cava. Chronic compressive atelectasis right base. Right shoulder shoulder arthroplasty. Postoperative changes left shoulder. IMPRESSION: Chronic and postoperative change. No acute process. The above report was generated using voice recognition software. It may contain grammatical, syntax or spelling errors. Electronically signed by: Sandeep Campbell M.D. 10/14/2016 6:51 AM Dictated Date/Time: 10/14/2016 6:50 AM
[2016-10-14 07:06] VITALS: BP 115/65; PULSE 94; TEMP 36.5; O2SAT 94
[2016-10-14] MEDS: BOOST VANILLA PUDDING CUP PO SCH ×2 (07:27→17:00)
[2016-10-14] MEDS: MICONAZOLE NITRATE POWDER 43 GM EXT SCH ×2 (09:00→21:00)
[2016-10-14] MEDS: MIDODRINE 2.5 MG TAB PO SCH ×3 (10:10→18:02)
[2016-10-14] MEDS: URSODIOL 300 MG CAP PO SCH ×2 (10:10→21:23)
[2016-10-14] MEDS: RIFAXIMIN TAB 550 MG TAB PO SCH ×2 (10:10→21:23)
[2016-10-14] MEDS: PANTOprazole SOD 40 MG TAB PO SCH (10:11)
[2016-10-14] MEDS: MULTIVITAMIN TAB PO SCH (10:11)
--- NOTE | 2016-10-14 13:56 | Progress Note ---
Internal Med Progress Note Date of Service: Oct 14, 2016. Provider Documentation: SUBJECTIVE: The patient was seen and examined Very depressed no more crying Some pain in right lower extremity-improved Complains of some abdominal pain OBJECTIVE: Vital Signs-as noted below Exam: General-No distress at rest Eyes-Yellow ENT-Normal Neck-Supple Lungs-Decreased breath sound bilaterally Heart-Regular ,no murmur appreciated Abdomen-Benign,no masses Extremities-Trace edema bilaterally Right lower extremity is minimally swollen Swelling is more around the right Knee Minimal to no tenderness No joint pain on movement Neuro-AAOx3 Lab data as noted below. ASSESSMENT & PLAN: 60f was admitted for right shoulder pain 6 weeks post ORIF of right proximal humerus and S/P RIGHT REVERSE TOTAL SHOULDER ARTHROPLASTY, REMOVAL OF DEEP HARDWARE RIGHT PROXIMAL HUMERUS, DEBRIDEMENT OF OLECRANON ULCER RIGHT ELBOW. Post op course was complicated by volume overload and possible aspiration pneumonia with Resp failure requiring intubation. Her renal function worsened and requiring dialysis.Hepatorenal syndrome was considered. Has hx of Biliary cirrhosis. S/P Extubation, requiring midodrine to keep BP elevated. required prbc transfusion .Gi and Nephrology following. May need terminologist dialysis as per nephrology. Plan for [facility] when more stable.Bilirubin keep climbing but GI want to wait and see. Gi recommends f/u with liver/kidney transplant at [place].Plan for TPN as patient oral intake not adequate at this time and refusing Tube feeds. Active issues are to complete iv abx which are done 10/09/16, f/u lfts for rising bilirubin levels and nutrition and pt/ot. Started TPN for few days and stopped later on.Plan for [facility] when more stable, hopefully next week. Wants to go home and thinks that her is not taking her home Hospital course so far: Acute hypoxic respiratory failure 09/20/16 secondary to fluid overload from IV fluids and albumin; Aspiration pneumonia Required intubation/mechanical ventilation. Improved with dialysis. Extubated 09/24/16. Now oxygenating well and stable on room air. Remains stable and clinically improving very slowly No new symptoms Respiratory sabillon remains stable Hx of biliary cirrhosis with portal hypertension. GI and nutrition consulted. Bilirubin remains elevated ,worsening ,11 on 10/13/16 ON rifaximin.Restarted obeticholic acid. Appreciate GI input Liver US on 10/03/16- no acute findings Monitor LFTs-LFTs are better but the bilirubin is going up PBC is gradually worsening Discussed with the GI -no further option now Evaluation in [place] for possible Transplant if her condition improves- discussed with the Chronic kidney disease stage 3 with acute kidney injury - ATN vs hepatorenal syndrome. Placement of hemodialysis catheter 09/27 and started on dialysis Management per Nephrology. May need assisted dialysis Creatinine is better today at 1,7 Will try to document the 24 hour urine output and see the need for Dialysis Kidney function is worse today Advised to drink more and more fluid Discussed in presence of the Hypotension Stable on midodrine Continue same for now Stable now Altered mental status/encephalopathy secondary to multifactorial delirium. Head CT negative for acute event. Continue rifaximin for hepatic encephalopathy. Appreciate Psychiatry Evaluation Decision making capacity is intact Smiles of the first time today Aspiration pneumonia Received IV vancomycin and piperacillin/tazobactam for possible aspiration pneumonia. Receiving fluconazole for Melissa albicans noted in sputum and bronchial washings. Loose stools - negative for C. difficile 09/27. CT chest / abdomen / pelvis did not show any apparent source of infection. ID consulted. WBC 12.8-normalized currently on Primaxin and vanco #10 to complete 10 day course as per ID- to stop abx today 10/09/16 Antibiotic course is done Anemia acute on chronic? Hemoglobin 9.5 on admission, fell as low as 5.6 on 09/29/16. No obvious GI bleeding, but stools heme +. CT abdomen and pelvis did not show any apparent retroperitoneal or intra- abdominal bleed. Received 3 units of PRBC so far Hb Stable >9.0 Thrombocytopenia platelets 106 today hit studies negative Platelets 76 on 10/11/16 Improving -107 today GENERAL DEBILITATION Increase activity as tolerated. Malnutrition nutrition consult not liking boost may try different drink received parenteral nutrition and discontinued Depression Very depressed Cries during conversation Appreciate Psychiatric evaluation Does not want any medication VTE PROPHYLAXIS SQ heparin stopped 09/28 due to thrombocytopenia / anemia. SCD's. Has right Lower extremity swelling-will check US Plate is coming up If stable will restart Heparin from tomorrow Right Knee swelling US:: 10.7 x 2.5 x 4.5 cm complex right thigh fluid collection within the deep soft tissues. The sonographic appearance is nonspecific but this may reflect a resolving hematoma or seroma. Abscess is considered less likely. If symptoms are worse -will consult ortho No increase in swelling DISPOSITION monitor in medical floor plan for health [facility] soon need to participate in pt/ot social service for d/c planning Discussed with the again today Vital Signs: Date Time Temp Pulse Resp B/P (MAP) Pulse Ox O2 Delivery O2 Flow Rate FiO2 10/14/16 09:30 Room Air 10/14/16 07:06 36.5 94 19 115/65 (82) 94 Room Air 10/14/16 00:10 36.6 90 16 110/55 (73) 97 Room Air 10/14/16 00:01 Room Air 10/13/16 16:40 Room Air 10/13/16 15:10 36.5 83 16 104/64 (77) 98 Room Air 10/13/16 14:13 Room Air Lab Results: Results Past 24 Hours Test 10/14/16 05:25 Range/Units Sodium Level 132 136-145 mmol/L Potassium Level 3.5 3.5-5.1 mmol/L Chloride Level 96 98-107 mmol/L Carbon Dioxide Level 26 21-32 mmol/L Anion Gap 10.0 3-11 mmol/L Blood Urea Nitrogen 46 7-18 mg/dl Creatinine 2.80 0.60-1.20 mg/dl Est Creatinine Clear Calc Drug Dose 22.5 ml/min Estimated GFR () 20.7 Estimated GFR (Non- 17.9 BUN/Creatinine Ratio 16.3 10-20 Random Glucose 73 70-99 mg/dl Calcium Level 10.2 8.5-10.1 mg/dl Phosphorus Level 4.7 2.5-4.9 mg/dl Magnesium Level 2.1 1.8-2.4 mg/dl Total Bilirubin 11.5 0.2-1 mg/dl Direct Bilirubin 9.4 0-0.2 mg/dl Aspartate Amino Transf (AST/SGOT) 65 15-37 U/L Alanine Aminotransferase (ALT/SGPT) 15 12-78 U/L Alkaline Phosphatase 447 45-117 U/L Total Protein 4.9 6.4-8.2 gm/dl Albumin 2.3 3.4-5.0 gm/dl
--- NOTE | 2016-10-14 16:01 | Nephrology Progress Note ---
Nephrology Progress Note Date of Service: Oct 14, 2016. Subjective 60 yo female with biliary cirrhosis with ileana/atn requiring dialysis. pt with jaundice, generalized weakness. last dialysis was tuesday. has perez catheter in place. has 175cc of urine output today. creatinine has trended up from 1.7 to 2.8 without dialysis. appetite not great. pt with generalized weakness and limited mobility. Objective Date Time Temp Pulse Resp B/P (MAP) Pulse Ox O2 Delivery O2 Flow Rate FiO2 10/14/16 09:30 Room Air 10/14/16 07:06 36.5 94 19 115/65 (82) 94 Room Air 10/14/16 00:10 36.6 90 16 110/55 (73) 97 Room Air 10/14/16 00:01 Room Air 10/13/16 16:40 Room Air Physical Exam: General-jaundiced Eyes-+scleral icterus ENT-mmm Neck-supple Lungs-clear Heart-regular Abdomen-bs+/soft-mildly tender Extremities-+2 edema Neuro-nonfocal Current Inpatient Medications Medications (Trade) Dose Ordered Sig/Michael Route Start Time Stop Time Status Last Admin Dose Admin Miconazole Nitrate (Desenex Powder) 1 appln BID EXT 09/17/16 21:00 10/17/16 20:59 10/11/16 08:23 1 APPLN Midodrine (Proamatine Tab) 5 mg TID@0800,1200,1800 PO 09/19/16 18:00 10/19/16 17:59 10/14/16 12:53 5 MG Levalbuterol (Xopenex 0.63 Mg/ 3 Ml Neb) 0.63 mg Q6H PRN INH 09/20/16 08:30 10/20/16 08:29 Rifaximin (Xifaxan Tab) 550 mg BID PO 09/22/16 21:00 10/22/16 20:59 10/14/16 10:10 550 MG Multivitamins (Multivitamin Tab) 1 tab QAM PO 09/25/16 09:00 10/25/16 08:59 10/14/16 10:11 1 TAB Heparin Sodium (Porcine) (Heparin 10 Unit/ ml 5 ml Flush) 5 ml PRN PRN FLUSH 09/25/16 02:00 10/25/16 01:59 10/14/16 05:25 5 ML Metoclopramide HCl (Reglan Inj) 5 mg Q6H PRN IV 09/27/16 12:45 10/25/16 12:44 10/13/16 13:29 5 MG Prednisone (PredniSONE TAB) 5 mg DAILY PO 09/28/16 09:00 10/28/16 08:59 10/14/16 10:11 5 MG Ursodiol (Actigall Cap) 600 mg BID PO 09/28/16 21:00 10/28/16 20:59 10/14/16 10:10 600 MG Pantoprazole Sodium (Protonix Tab) 40 mg QAM PO 09/29/16 09:00 10/29/16 08:59 10/14/16 10:11 40 MG Oxycodone HCl (Roxicodone Immediate Rel Tab) 5 mg Q8H PRN PO 10/01/16 18:15 10/15/16 18:14 10/06/16 21:59 5 MG Hydromorphone HCl (Dilaudid Inj) 0.25 mg Q4H PRN IV 10/01/16 18:15 10/15/16 18:14 10/03/16 13:05 0.25 MG Non-Formulary Medication (Obeticholic Acid (Ocaliva)) 5 mg Sa@0900 PO 10/02/16 14:00 11/01/16 13:59 10/09/16 08:10 5 MG Enteral Nutritional Formula (Boost Pudding) 1 cup BID17 PO 10/05/16 17:00 11/04/16 16:59 10/10/16 07:38 1 CUP Last 24 Hours Test 10/14/16 05:25 Sodium Level 132 mmol/L Potassium Level 3.5 mmol/L Chloride Level 96 mmol/L Carbon Dioxide Level 26 mmol/L Anion Gap 10.0 mmol/L Blood Urea Nitrogen 46 mg/dl Creatinine 2.80 mg/dl Est Creatinine Clear Calc Drug Dose 22.5 ml/min Estimated GFR () 20.7 Estimated GFR (Non- 17.9 BUN/Creatinine Ratio 16.3 Random Glucose 73 mg/dl Calcium Level 10.2 mg/dl Phosphorus Level 4.7 mg/dl Magnesium Level 2.1 mg/dl Total Bilirubin 11.5 mg/dl Direct Bilirubin 9.4 mg/dl Aspartate Amino Transf (AST/SGOT) 65 U/L Alanine Aminotransferase (ALT/SGPT) 15 U/L Alkaline Phosphatase 447 U/L Total Protein 4.9 gm/dl Albumin 2.3 gm/dl Assessment & Plan [id number] dialysis-temporarily held dialysis and placed perez catheter with low creatinine to see if any signs of renal recovery. would not give iv fluids with her propensity to go into chf earlier in the admission but will give iv albumin to help increase intravascular space. likely will need dialysis chronically and plan on dialysis again tomorrow for clearance of toxins but will hold on fluid removal and try to increase intravascular space to see if urination starts to improve.
[2016-10-14 16:15] VITALS: BP 103/65; PULSE 88; TEMP 36.8; O2SAT 95
[2016-10-14] MEDS: ALBUMIN HUMAN 25% 12.5 GM/50 ML VIAL IV SCH (21:13)
[2016-10-14 21:20] VITALS: BP 131/75; PULSE 83; TEMP 36.5; O2SAT 95
[2016-10-14 21:35] VITALS: BP 119/73; PULSE 80; TEMP 36.6; O2SAT 97
[2016-10-14 23:14] VITALS: BP 121/73; PULSE 84; TEMP 36.6; O2SAT 98
[2016-10-15] VITALS (20 sets, daily range): BP systolic 93–116; BP diastolic 35–77; PULSE 84–90; TEMP 36.6–36.7; O2SAT 94–96
[2016-10-15 06:16] LABS: HEMATOCRIT 27.5 % (37-47); MEAN CELL VOLUME 90.8 fL (80-100); MEAN CORPUSCULAR HGB CONC 33.1 g/dl (32-36); MEAN PLATELET VOLUME 9.8 fL (7.4-10.4); PLATELET COUNT 129 K/uL (130-400); RED BLOOD COUNT 3.03 M/uL (4.2-5.4); WHITE BLOOD COUNT 8.21 K/uL (4.8-10.8)
[2016-10-15 06:55] LABS: BUN/CREATININE RATIO 15.9 (10-20); CALCIUM 10.2 mg/dl (8.5-10.1); CREATININE 3.2 mg/dl (0.60-1.20); POTASSIUM 3.3 mmol/L (3.5-5.1)
[2016-10-15] MEDS: MICONAZOLE NITRATE POWDER 43 GM EXT SCH ×2 (07:35→22:15)
[2016-10-15] MEDS: BOOST VANILLA PUDDING CUP PO SCH ×2 (07:36→17:00)
--- NOTE | 2016-10-15 07:54 | Nephrology Progress Note ---
Nephrology Progress Note Date of Service: Oct 15, 2016. Subjective 60 yo female with biliary cirrhosis with ileana/atn requiring dialysis. pt with jaundice. held dialysis since tuesday to see if her kidneys were improving. creatinine continues to trend up and has minimal urination. will plan on dialysis again today for clearance only. Objective Date Time Temp Pulse Resp B/P (MAP) Pulse Ox O2 Delivery O2 Flow Rate FiO2 10/15/16 07:43 36.7 88 17 108/63 (78) 94 Room Air 10/14/16 23:14 36.6 84 16 121/73 (89) 98 Room Air 10/14/16 21:35 36.6 80 16 119/73 (88) 97 Room Air 10/14/16 21:20 36.5 83 18 131/75 (93) 95 Room Air 10/14/16 19:30 Room Air 10/14/16 17:30 Room Air 10/14/16 16:15 36.8 88 18 103/65 (78) 95 Room Air 10/14/16 09:30 Room Air Physical Exam: General-jaundiced Eyes-+scleral icterus ENT-mmm Neck-supple Lungs-cta Heart-regular Abdomen-bs+/soft/nontender Extremities-+1 to 2 edema Neuro-nonfocal Current Inpatient Medications Medications (Trade) Dose Ordered Sig/Michael Route Start Time Stop Time Status Last Admin Dose Admin Miconazole Nitrate (Desenex Powder) 1 appln BID EXT 09/17/16 21:00 10/17/16 20:59 10/15/16 07:35 1 APPLN Midodrine (Proamatine Tab) 5 mg TID@0800,1200,1800 PO 09/19/16 18:00 10/19/16 17:59 10/14/16 18:02 5 MG Levalbuterol (Xopenex 0.63 Mg/ 3 Ml Neb) 0.63 mg Q6H PRN INH 09/20/16 08:30 10/20/16 08:29 Rifaximin (Xifaxan Tab) 550 mg BID PO 09/22/16 21:00 10/22/16 20:59 10/14/16 21:23 550 MG Multivitamins (Multivitamin Tab) 1 tab QAM PO 09/25/16 09:00 10/25/16 08:59 10/14/16 10:11 1 TAB Heparin Sodium (Porcine) (Heparin 10 Unit/ ml 5 ml Flush) 5 ml PRN PRN FLUSH 09/25/16 02:00 10/25/16 01:59 10/15/16 05:34 5 ML Metoclopramide HCl (Reglan Inj) 5 mg Q6H PRN IV 09/27/16 12:45 10/25/16 12:44 10/13/16 13:29 5 MG Prednisone (PredniSONE TAB) 5 mg DAILY PO 09/28/16 09:00 10/28/16 08:59 10/14/16 10:11 5 MG Ursodiol (Actigall Cap) 600 mg BID PO 09/28/16 21:00 10/28/16 20:59 10/14/16 21:23 600 MG Pantoprazole Sodium (Protonix Tab) 40 mg QAM PO 09/29/16 09:00 10/29/16 08:59 10/14/16 10:11 40 MG Oxycodone HCl (Roxicodone Immediate Rel Tab) 5 mg Q8H PRN PO 10/01/16 18:15 10/15/16 18:14 10/06/16 21:59 5 MG Hydromorphone HCl (Dilaudid Inj) 0.25 mg Q4H PRN IV 10/01/16 18:15 10/15/16 18:14 10/03/16 13:05 0.25 MG Non-Formulary Medication (Obeticholic Acid (Ocaliva)) 5 mg Sa@0900 PO 10/02/16 14:00 11/01/16 13:59 10/09/16 08:10 5 MG Enteral Nutritional Formula (Boost Pudding) 1 cup BID17 PO 10/05/16 17:00 11/04/16 16:59 10/10/16 07:38 1 CUP Albumin Human (Albumin 25%) 12.5 gm BID IV 10/14/16 21:00 10/17/16 20:59 10/14/16 21:13 12.5 GM Last 24 Hours Test 10/15/16 05:36 White Blood Count 8.21 K/uL Red Blood Count 3.03 M/uL Hemoglobin 9.1 g/dL Hematocrit 27.5 % Mean Corpuscular Volume 90.8 fL Mean Corpuscular Hemoglobin 30.0 pg Mean Corpuscular Hemoglobin Concent 33.1 g/dl RDW Standard Deviation 75.4 fL RDW Coefficient of Variation 23.3 % Platelet Count 129 K/uL Mean Platelet Volume 9.8 fL Sodium Level 132 mmol/L Potassium Level 3.3 mmol/L Chloride Level 97 mmol/L Carbon Dioxide Level 25 mmol/L Anion Gap 10.0 mmol/L Blood Urea Nitrogen 51 mg/dl Creatinine 3.20 mg/dl Est Creatinine Clear Calc Drug Dose 19.4 ml/min Estimated GFR () 17.6 Estimated GFR (Non- 15.2 BUN/Creatinine Ratio 15.9 Random Glucose 69 mg/dl Calcium Level 10.2 mg/dl Assessment & Plan [id number] 250cc of urination yesteray. creatinien continues to trend up. will do dialysis today for clearance of toxins but will not remove any fluid. trying to improve her intravascular volume. on iv albumin bid-first dose last night as well. will monitor volume status closely. do not want patient to go into respiratory distress. so far looks comfortable. may take up to 3 months to see recovery. for now, will continue dialysis m-w- for clearance and hope her urination starts to improve. Anemia of renal failure-will give a dose of procrit today on dialysis.
[2016-10-15] MEDS ORDERED: EPOETIN ALFA 10,000 UNITS/ML VIAL IV. SCH (08:00)
[2016-10-15] MEDS: ALBUMIN HUMAN 25% 12.5 GM/50 ML VIAL IV SCH ×2 (10:17→20:42)
[2016-10-15] MEDS: MIDODRINE 2.5 MG TAB PO SCH ×3 (10:18→20:44)
[2016-10-15] MEDS: URSODIOL 300 MG CAP PO SCH ×2 (10:18→20:45)
[2016-10-15] MEDS: RIFAXIMIN TAB 550 MG TAB PO SCH ×2 (10:18→20:44)
[2016-10-15] MEDS: MULTIVITAMIN TAB PO SCH (10:19)
[2016-10-15] MEDS: PANTOprazole SOD 40 MG TAB PO SCH (10:19)
[2016-10-15] MEDS ORDERED: POTASSIUM CHLORIDE 10 MEQ TABCR PO STA (10:41)
--- NOTE | 2016-10-15 12:08 | Psychiatric Progress Notes ---
Psychiatric Progress Note Date of Service Oct 15, 2016. Notes ID: Patient reviewed with liaison nurse. Interim progress reviewed. Up to this point patient remains depressed and refusing to restart antidepressant CC: "my nurse is wonderful" HPI: as usual the patient nodded head no to meeting with me but continued to answer questions. She has developed trust with shift nurse today who was at bedside and is aware that she will be going to dialysis. Bathing/care continues to cause significant anxiety for her due to fears of pain but doesn't request pain med as wants to remain aware. ROS: patient declines to complete MSE: alert, cooperative but still guarded, thoughts concrete but coherent, she is not suicidal but remains rather hopeless and upset about hospitalization, no morris Imp: MDD Plan: patient is willing to try "lowest" dose Ativan prn. Liaison will continue to provide support.
--- NOTE | 2016-10-15 16:19 | Progress Note ---
Internal Med Progress Note Date of Service: Oct 15, 2016. Provider Documentation: SUBJECTIVE: The patient was seen and examined Very depressed no more crying Some pain in right lower extremity-improved Remains stable Low motivation OBJECTIVE: Vital Signs-as noted below Exam: General-No distress at rest Eyes-Yellow ENT-Normal Neck-Supple Lungs-Decreased breath sound bilaterally Heart-Regular ,no murmur appreciated Abdomen-Benign,no masses Extremities-Trace edema bilaterally Right lower extremity is minimally swollen Swelling is more around the right Knee Minimal to no tenderness No joint pain on movement again today Neuro-AAOx3 Lab data as noted below. ASSESSMENT & PLAN: 60f was admitted for right shoulder pain 6 weeks post ORIF of right proximal humerus and S/P RIGHT REVERSE TOTAL SHOULDER ARTHROPLASTY, REMOVAL OF DEEP HARDWARE RIGHT PROXIMAL HUMERUS, DEBRIDEMENT OF OLECRANON ULCER RIGHT ELBOW. Post op course was complicated by volume overload and possible aspiration pneumonia with Resp failure requiring intubation. Her renal function worsened and requiring dialysis.Hepatorenal syndrome was considered. Has hx of Biliary cirrhosis. S/P Extubation, requiring midodrine to keep BP elevated. required prbc transfusion .Gi and Nephrology following. May need half-way dialysis as per nephrology. Plan for [facility] when more stable.Bilirubin keep climbing but GI want to wait and see. Gi recommends f/u with liver/kidney transplant at [place].Plan for TPN as patient oral intake not adequate at this time and refusing Tube feeds. Active issues are to complete iv abx which are done 10/09/16, f/u lfts for rising bilirubin levels and nutrition and pt/ot. Started TPN for few days and stopped later on.Plan for [facility] when more stable, hopefully next week. Wants to go home and thinks that her is not taking her home Hospital course so far: Hx of biliary cirrhosis with portal hypertension. GI and nutrition consulted. Bilirubin remains elevated ,worsening ,11 on 10/13/16 ON rifaximin.Restarted obeticholic acid. Appreciate GI input Liver US on 10/03/16- no acute findings Monitor LFTs-LFTs are better but the bilirubin is going up PBC is gradually worsening Discussed with the GI -no further option now Evaluation in [place] for possible Transplant if her condition improves- discussed with the ,GI service in [facility] and in [place] Discussed with the Patient and the again today To continue Physical Therapy-will need placement Chronic kidney disease stage 3 with acute kidney injury - ATN vs hepatorenal syndrome. Placement of hemodialysis catheter 09/27 and started on dialysis Management per Nephrology. May need can top setter dialysis Creatinine is better today at 1,7 Will try to document the 24 hour urine output and see the need for Dialysis Kidney function is worse today Advised to drink more and more fluid Discussed in presence of the Creatinine is worse today Albumin administered and Dialysis today Plan to see if Dialysis can be avoided Acute hypoxic respiratory failure 09/20/16 secondary to fluid overload from IV fluids and albumin; Aspiration pneumonia Required intubation/mechanical ventilation. Improved with dialysis. Extubated 09/24/16. Now oxygenating well and stable on room air. Remains stable and clinically improving very slowly No new symptoms Respiratory sabillon remains stable Hypotension Stable on midodrine Continue same for now Stable now Altered mental status/encephalopathy secondary to multifactorial delirium. Head CT negative for acute event. Continue rifaximin for hepatic encephalopathy. Appreciate Psychiatry Evaluation Decision making capacity is intact Smiles of the first time today Aspiration pneumonia Received IV vancomycin and piperacillin/tazobactam for possible aspiration pneumonia. Receiving fluconazole for Melissa albicans noted in sputum and bronchial washings. Loose stools - negative for C. difficile 09/27. CT chest / abdomen / pelvis did not show any apparent source of infection. ID consulted. WBC 12.8-normalized currently on Primaxin and vanco #10 to complete 10 day course as per ID- to stop abx today 10/09/16 Antibiotic course is done Anemia acute on chronic? Hemoglobin 9.5 on admission, fell as low as 5.6 on 09/29/16. No obvious GI bleeding, but stools heme +. CT abdomen and pelvis did not show any apparent retroperitoneal or intra- abdominal bleed. Received 3 units of PRBC so far Hb Stable >9.0 Thrombocytopenia Platelet improved to 129 from as low as 70s Heparin 5000 units SQ BID started to prevent Thrombosis She does not like SCDs GENERAL DEBILITATION Increase activity as tolerated. Malnutrition nutrition consult not liking boost may try different drink received parenteral nutrition and discontinued Depression Very depressed Cries during conversation Appreciate Psychiatric evaluation Does not want any medication VTE PROPHYLAXIS Started on Heparin SQ BID Check Platelets Right Knee swelling US:: 10.7 x 2.5 x 4.5 cm complex right thigh fluid collection within the deep soft tissues. The sonographic appearance is nonspecific but this may reflect a resolving hematoma or seroma. Abscess is considered less likely. If symptoms are worse -will consult ortho No increase in swelling Will check US tomorrow DISPOSITION need to participate in pt/ot social service for d/c planning Discussed with the again today Will need placement Transplant team at [place] will evaluate her on Improvement;Dr Guy discussed with GI at [place] on 10/15/16 Vital Signs: Date Time Temp Pulse Resp B/P (MAP) Pulse Ox O2 Delivery O2 Flow Rate FiO2 10/15/16 15:45 89 100/46 10/15/16 15:31 90 110/62 10/15/16 15:20 36.7 88 18 98/54 (69) 95 Room Air 10/15/16 15:15 88 98/54 10/15/16 14:45 85 116/57 10/15/16 14:30 85 111/41 10/15/16 14:15 84 111/51 10/15/16 11:15 36.7 87 18 113/68 (83) 95 Room Air 10/15/16 10:15 36.6 89 18 115/67 (83) 96 Room Air 10/15/16 08:00 Room Air 10/15/16 07:43 36.7 88 17 108/63 (78) 94 Room Air 10/14/16 23:14 36.6 84 16 121/73 (89) 98 Room Air 10/14/16 21:35 36.6 80 16 119/73 (88) 97 Room Air 10/14/16 21:20 36.5 83 18 131/75 (93) 95 Room Air 10/14/16 19:30 Room Air 10/14/16 17:30 Room Air 10/14/16 16:15 36.8 88 18 103/65 (78) 95 Room Air Lab Results: Results Past 24 Hours Test 10/15/16 05:36 Range/Units White Blood Count 8.21 4.8-10.8 K/uL Red Blood Count 3.03 4.2-5.4 M/uL Hemoglobin 9.1 12.0-16.0 g/dL Hematocrit 27.5 37-47 % Mean Corpuscular Volume 90.8 80-100 fL Mean Corpuscular Hemoglobin 30.0 25-34 pg Mean Corpuscular Hemoglobin Concent 33.1 32-36 g/dl RDW Standard Deviation 75.4 36.4-46.3 fL RDW Coefficient of Variation 23.3 11.5-14.5 % Platelet Count 129 130-400 K/uL Mean Platelet Volume 9.8 7.4-10.4 fL Sodium Level 132 136-145 mmol/L Potassium Level 3.3 3.5-5.1 mmol/L Chloride Level 97 98-107 mmol/L Carbon Dioxide Level 25 21-32 mmol/L Anion Gap 10.0 3-11 mmol/L Blood Urea Nitrogen 51 7-18 mg/dl Creatinine 3.20 0.60-1.20 mg/dl Est Creatinine Clear Calc Drug Dose 19.4 ml/min Estimated GFR () 17.6 Estimated GFR (Non- 15.2 BUN/Creatinine Ratio 15.9 10-20 Random Glucose 69 70-99 mg/dl Calcium Level 10.2 8.5-10.1 mg/dl
[2016-10-15] MEDS: HEPARIN SOD 5000 UNIT/0.5 ML CARP SQ SCH (20:47)
[2016-10-16 08:00] VITALS: BP 120/69; PULSE 91; TEMP 36.5; O2SAT 94
[2016-10-16] MEDS: ALBUMIN HUMAN 25% 12.5 GM/50 ML VIAL IV SCH ×2 (09:19→21:30)
[2016-10-16] MEDS: PANTOprazole SOD 40 MG TAB PO SCH (09:20)
[2016-10-16] MEDS: RIFAXIMIN TAB 550 MG TAB PO SCH ×2 (09:20→21:23)
[2016-10-16] MEDS: URSODIOL 300 MG CAP PO SCH ×2 (09:20→21:22)
[2016-10-16] MEDS: MULTIVITAMIN TAB PO SCH (09:20)
[2016-10-16] MEDS: MICONAZOLE NITRATE POWDER 43 GM EXT SCH ×2 (09:21→21:30)
[2016-10-16] MEDS: BOOST VANILLA PUDDING CUP PO SCH ×3 (09:21→18:47)
[2016-10-16] MEDS: MIDODRINE 2.5 MG TAB PO SCH ×3 (09:21→18:46)
[2016-10-16] MEDS: HEPARIN SOD 5000 UNIT/0.5 ML CARP SQ SCH ×2 (09:30→21:31)
[2016-10-16] MEDS: OBETICHOLIC ACID 5 MG PO SCH (09:55)
[2016-10-16 16:03] VITALS: BP 116/70; PULSE 93; TEMP 37; O2SAT 94
--- NOTE | 2016-10-16 16:37 | Progress Note ---
Internal Med Progress Note Date of Service: Oct 16, 2016. Provider Documentation: SUBJECTIVE: tearful and want to go home in the room appetite not great afebrile no nausea n sob OBJECTIVE: Vital Signs-as noted below Exam: General-alert and awake. Not in distress ENT-normal hearing Neck-no neck masses Lungs-cta b/l no wheezing or crackles Heart-s1 and s2 heard regular rate and rhythm, no murmurs Abdomen-soft bowel sounds present non tender no distension Extremities- lower extremity edema present,no erythema right upper extremity in sling Neuro-alert and awake moves extremities Lab data as noted below. ASSESSMENT & PLAN: 60f was admitted for right shoulder pain 6 weeks post ORIF of right proximal humerus and S/P RIGHT REVERSE TOTAL SHOULDER ARTHROPLASTY, REMOVAL OF DEEP HARDWARE RIGHT PROXIMAL HUMERUS, DEBRIDEMENT OF OLECRANON ULCER RIGHT ELBOW. Post op course was complicated by volume overload and possible aspiration pneumonia with Resp failure requiring intubation. Her renal function worsened and requiring dialysis.Hepatorenal syndrome was considered. Has hx of Biliary cirrhosis. S/P Extubation, requiring midodrine to keep BP elevated. required prbc transfusion .Gi and Nephrology following. May need watermaster dialysis as per nephrology. Plan for [facility] when more stable.Bilirubin keep climbing but GI want to wait and see. Gi recommends f/u with liver/kidney transplant at [place].Plan for TPN as patient oral intake not adequate at this time and refusing Tube feeds. Active issues are to complete iv abx which are done 10/09/16, f/u lfts for rising bilirubin levels and nutrition and pt/ot. Started TPN for few days and stopped later on.Plan for [facility] when more stable, hopefully next week. Wants to go home and thinks that her is not taking her home Hospital course so far: Hx of biliary cirrhosis with portal hypertension. GI and nutrition consulted. Bilirubin remains elevated ,worsening ,11.5 on 10/13/16 ON rifaximin.Restarted obeticholic acid. Appreciate GI input Liver US on 10/03/16- no acute findings Monitor LFTs-LFTs are better but the bilirubin is going up PBC is gradually worsening called GI service at [place] on 10/15/16- patient needs to ambulate for transplant plan for rehab Chronic kidney disease stage 3 with acute kidney injury - ATN vs hepatorenal syndrome. Placement of hemodialysis catheter 09/27 and started on dialysis Management per Nephrology. May need alf dialysis Dialysis as per nephrology Acute hypoxic respiratory failure 09/20/16 secondary to fluid overload from IV fluids and albumin; Aspiration pneumonia Required intubation/mechanical ventilation. Improved with dialysis. Extubated 09/24/16. currently stable on room air Hypotension Stable on midodrine Continue same for now Altered mental status/encephalopathy secondary to multifactorial delirium. Head CT negative for acute event. Continue rifaximin for hepatic encephalopathy. stable currently Aspiration pneumonia Received IV vancomycin and piperacillin/tazobactam for possible aspiration pneumonia. Receiving fluconazole for Melissa albicans noted in sputum and bronchial washings. Loose stools - negative for C. difficile 09/27. CT chest / abdomen / pelvis did not show any apparent source of infection. ID consulted. WBC 12.8-normalized was on Primaxin and vanco #10 to complete 10 day course as per ID- to stop abx today 10/09/16 Anemia acute on chronic? Hemoglobin 9.5 on admission, fell as low as 5.6 on 09/29/16. No obvious GI bleeding, but stools heme +. CT abdomen and pelvis did not show any apparent retroperitoneal or intra- abdominal bleed. Received 3 units of PRBC so far Hb Stable >9.0 Thrombocytopenia Platelet improved to 129 from as low as 70s Heparin 5000 units SQ BID She does not like SCDs f/u labs. GENERAL DEBILITATION Increase activity as tolerated. Malnutrition nutrition consult not liking boost received parenteral nutrition and discontinued Depression Appreciate Psychiatric evaluation Does not want any medication Right Knee swelling US:: 10.7 x 2.5 x 4.5 cm complex right thigh fluid collection within the deep soft tissues. The sonographic appearance is nonspecific but this may reflect a resolving hematoma or seroma. Abscess is considered less likely. will f/u repeat US VTE PROPHYLAXIS Started on Heparin SQ BID DISPOSITION need to participate in pt/ot social service for d/c planning await placement Vital Signs: Date Time Temp Pulse Resp B/P (MAP) Pulse Ox O2 Delivery O2 Flow Rate FiO2 10/16/16 16:03 37.0 93 17 116/70 (85) 94 Room Air 10/16/16 08:00 36.5 91 17 120/69 (86) 94 10/16/16 08:00 Room Air 10/15/16 23:46 36.7 88 110/68 (82) 94 Room Air 10/15/16 23:45 Room Air 10/15/16 21:08 84 102/65 (77) 10/15/16 18:15 Room Air 10/15/16 17:30 36.7 86 93/50 (64) 10/15/16 17:15 87 95/35 10/15/16 17:01 86 95/37 10/15/16 16:45 89 99/77
[2016-10-16 18:40] VITALS: BP 119/69; PULSE 85
[2016-10-16 21:40] VITALS: BP 118/72; PULSE 72; TEMP 36.9; O2SAT 94
[2016-10-16 21:56] VITALS: BP 119/72; PULSE 82; TEMP 36.7; O2SAT 95
[2016-10-16 23:47] VITALS: BP 143/75; PULSE 83; TEMP 37; O2SAT 94
[2016-10-17 07:50] VITALS: BP 122/66; PULSE 83; TEMP 36.5; O2SAT 90
[2016-10-17] MEDS: ALBUMIN HUMAN 25% 12.5 GM/50 ML VIAL IV SCH (09:32)
[2016-10-17] MEDS: MULTIVITAMIN TAB PO SCH (09:33)
[2016-10-17] MEDS: MICONAZOLE NITRATE POWDER 43 GM EXT SCH (09:33)
[2016-10-17] MEDS: MIDODRINE 2.5 MG TAB PO SCH ×3 (09:33→18:04)
[2016-10-17] MEDS: BOOST VANILLA PUDDING CUP PO SCH ×2 (09:34→17:00)
[2016-10-17] MEDS: URSODIOL 300 MG CAP PO SCH ×2 (09:34→21:41)
[2016-10-17] MEDS: RIFAXIMIN TAB 550 MG TAB PO SCH ×2 (09:34→21:40)
[2016-10-17] MEDS: HEPARIN SOD 5000 UNIT/0.5 ML CARP SQ SCH ×2 (09:35→21:00)
[2016-10-17] MEDS: PANTOprazole SOD 40 MG TAB PO SCH (09:35)
[2016-10-17 15:08] VITALS: BP 125/71; PULSE 78; TEMP 36.8; O2SAT 94
--- NOTE | 2016-10-17 15:13 | Progress Note ---
Internal Med Progress Note Date of Service: Oct 17, 2016. Provider Documentation: SUBJECTIVE: resting comfortably says eating fine and waiting for lunch afebrile no sob or nausea OBJECTIVE: Vital Signs-as noted below Exam: General-alert and awake. Not in distress ENT-normal hearing Neck-no neck masses Lungs-cta b/l no wheezing or crackles Heart-s1 and s2 heard regular rate and rhythm, no murmurs Abdomen-soft bowel sounds present non tender no distension Extremities- lower extremity edema present,no erythema Neuro-alert and awake moves extremities Lab data as noted below. ASSESSMENT & PLAN: 60f was admitted for right shoulder pain 6 weeks post ORIF of right proximal humerus and S/P RIGHT REVERSE TOTAL SHOULDER ARTHROPLASTY, REMOVAL OF DEEP HARDWARE RIGHT PROXIMAL HUMERUS, DEBRIDEMENT OF OLECRANON ULCER RIGHT ELBOW. Post op course was complicated by volume overload and possible aspiration pneumonia with Resp failure requiring intubation. Her renal function worsened and requiring dialysis.Hepatorenal syndrome was considered. Has hx of Biliary cirrhosis. S/P Extubation, requiring midodrine to keep BP elevated. required prbc transfusion .Gi and Nephrology following. May need [facility]termaker continuous churn dialysis as per nephrology. Plan for [facility] when more stable.Bilirubin keep climbing but GI want to wait and see. Gi recommends f/u with liver/kidney transplant at [place].Plan for TPN as patient oral intake not adequate at this time and refusing Tube feeds. Active issues are to complete iv abx which are done 10/09/16, f/u lfts for rising bilirubin levels and nutrition and pt/ot. Started TPN for few days and stopped later on.Plan for [facility] when more stable, hopefully next week. Wants to go home and thinks that her is not taking her home. Needs to participate in pt/ot. Await placement Hospital course so far: Hx of biliary cirrhosis with portal hypertension. GI and nutrition consulted. Bilirubin remains elevated ,worsening ,11.5 on 10/13/16 ON rifaximin.Restarted obeticholic acid. Appreciate GI input Liver US on 10/03/16- no acute findings Monitor LFTs-LFTs are better but the bilirubin is going up PBC is gradually worsening called GI service at [place] on 10/15/16- patient needs to ambulate for transplant plan for rehab hopefully soon Chronic kidney disease stage 3 with acute kidney injury - ATN vs hepatorenal syndrome. Placement of hemodialysis catheter 09/27 and started on dialysis Management per Nephrology. May need buttermaker continuous churn dialysis Dialysis as per nephrology Acute hypoxic respiratory failure 09/20/16 secondary to fluid overload from IV fluids and albumin; Aspiration pneumonia Required intubation/mechanical ventilation. Improved with dialysis. Extubated 09/24/16. currently stable on room air Hypotension Stable on midodrine Continue same for now Altered mental status/encephalopathy secondary to multifactorial delirium. Head CT negative for acute event. Continue rifaximin for hepatic encephalopathy. stable currently Aspiration pneumonia Received IV vancomycin and piperacillin/tazobactam for possible aspiration pneumonia. Receiving fluconazole for Melissa albicans noted in sputum and bronchial washings. Loose stools - negative for C. difficile 09/27. CT chest / abdomen / pelvis did not show any apparent source of infection. ID consulted. WBC 12.8-normalized was on Primaxin and vanco #10 to complete 10 day course as per ID- to stop abx today 10/09/16 Anemia acute on chronic? Hemoglobin 9.5 on admission, fell as low as 5.6 on 09/29/16. No obvious GI bleeding, but stools heme +. CT abdomen and pelvis did not show any apparent retroperitoneal or intra- abdominal bleed. Received 3 units of PRBC so far Hb Stable >9.0 Thrombocytopenia Platelet improved to 129 from as low as 70s Heparin 5000 units SQ BID She does not like SCDs f/u labs. GENERAL DEBILITATION Increase activity as tolerated. Malnutrition nutrition consult not liking boost received parenteral nutrition and discontinued Depression Appreciate Psychiatric evaluation Does not want any medication Right Knee swelling US:: 10.7 x 2.5 x 4.5 cm complex right thigh fluid collection within the deep soft tissues. The sonographic appearance is nonspecific but this may reflect a resolving hematoma or seroma. Abscess is considered less likely. will f/u repeat US VTE PROPHYLAXIS Started on Heparin SQ BID DISPOSITION need to participate in pt/ot social service for d/c planning await placement Vital Signs: Date Time Temp Pulse Resp B/P (MAP) Pulse Ox O2 Delivery O2 Flow Rate FiO2 10/17/16 15:08 36.8 78 17 125/71 (89) 94 Room Air 10/17/16 07:50 36.5 83 16 122/66 (84) 90 Room Air 10/17/16 07:50 Room Air 10/17/16 00:00 Room Air 10/16/16 23:47 37.0 83 17 143/75 (97) 94 Room Air 10/16/16 21:56 36.7 82 16 119/72 (88) 95 Room Air 10/16/16 21:40 36.9 72 18 118/72 (87) 94 Room Air 10/16/16 19:12 Room Air 10/16/16 18:40 85 119/69 (86) 10/16/16 16:40 Room Air 10/16/16 16:03 37.0 93 17 116/70 (85) 94 Room Air
[2016-10-17 23:40] VITALS: BP 109/64; PULSE 87; TEMP 36.9; O2SAT 96
[2016-10-18] VITALS (18 sets, daily range): BP systolic 101–128; BP diastolic 42–89; PULSE 75–89; TEMP 36.6–36.9; O2SAT 94–96
[2016-10-18] MEDS: MIDODRINE 2.5 MG TAB PO SCH ×3 (07:56→19:09)
[2016-10-18] MEDS ORDERED: EPOETIN ALFA 10,000 UNITS/ML VIAL IV. SCH (09:00)
[2016-10-18] MEDS: HEPARIN SOD 5000 UNIT/0.5 ML CARP SQ SCH ×2 (09:00→20:39)
[2016-10-18] MEDS: PANTOprazole SOD 40 MG TAB PO SCH (09:24)
[2016-10-18] MEDS: RIFAXIMIN TAB 550 MG TAB PO SCH ×2 (09:24→20:37)
[2016-10-18] MEDS: MULTIVITAMIN TAB PO SCH (09:25)
[2016-10-18] MEDS: URSODIOL 300 MG CAP PO SCH ×2 (09:25→20:37)
[2016-10-18] MEDS: BOOST VANILLA PUDDING CUP PO SCH ×2 (09:25→17:45)
--- NOTE | 2016-10-18 09:35 | Psychiatric Progress Notes ---
Psychiatric Progress Note Date of Service Oct 18, 2016. Notes Patient discussed with liaison nurse. Interim progress reviewed. Patient isn' t as tearful but refuses to get out of bed, refuses heparin and boost, etc. She is scheduled for dialysis today. Hasn't been given prn Ativan. Patient likely to refuse po. Discussed with nurse to encourage use prior to bathing, procedures and she stated would attempt to administer before dialysis.
[2016-10-18 12:45] LABS: BASO % 0.1 %; BASO ABS # 0.01 K/uL (0-0.2); EOS % 3.1 %; HEMATOCRIT 29.4 % (37-47); IG% 1.5 %; LYMPH % 8.2 %; LYMPH ABS # 0.82 K/uL (1.2-3.4); MEAN CELL VOLUME 91.9 fL (80-100); MEAN CORPUSCULAR HEMOGLOBIN 29.7 pg (25-34); MEAN CORPUSCULAR HGB CONC 32.3 g/dl (32-36); MEAN PLATELET VOLUME 9.4 fL (7.4-10.4); MONO % 7.6 %; NEUT % 79.5 %; PLATELET COUNT 139 K/uL (130-400); WHITE BLOOD COUNT 10.04 K/uL (4.8-10.8)
[2016-10-18 13:06] LABS: BUN/CREATININE RATIO 10.7 (10-20); CALCIUM 9.7 mg/dl (8.5-10.1); CREATININE 3.5 mg/dl (0.60-1.20); POTASSIUM 3.4 mmol/L (3.5-5.1)
[2016-10-18 13:10] LABS: ANISOCYTOSIS PRESENT; COMPLETE YES; HYPERSEGMENTED POLYS 1+; HYPOCHROMIA PRESENT; POIKILOCYTOSIS PRESENT; TOXIC GRANULATION 1+; VACUOLIZATION 1+
[2016-10-18] MEDS: LORAZEPAM INJ 0.25 MG in SYRINGE 0.125 ML IV PRN (14:00)
--- NOTE | 2016-10-18 16:59 | Nephrology Progress Note ---
Nephrology Progress Note Date of Service: Oct 18, 2016. Subjective no urine output documented past 24 hrs but note bladder scan 441 mL this am and nursing able to place perez >> immediately got 100 mL uop brown urine; minimal uop since; no n/v; remains tearful/ exhausted. denies dyspnea; new L knee lesion being evaluated Objective Date Time Temp Pulse Resp B/P (MAP) Pulse Ox O2 Delivery O2 Flow Rate FiO2 10/18/16 16:45 77 113/58 10/18/16 16:30 78 113/52 10/18/16 16:15 77 109/47 10/18/16 16:00 79 101/56 10/18/16 15:47 36.8 78 16 112/56 (74) 96 Room Air 10/18/16 15:46 79 108/89 10/18/16 15:30 78 112/56 10/18/16 15:15 79 109/50 10/18/16 15:01 83 108/56 10/18/16 14:45 77 121/51 10/18/16 14:31 78 128/58 10/18/16 14:16 78 107/42 10/18/16 14:00 75 104/58 10/18/16 13:54 81 119/62 10/18/16 13:45 36.6 78 106/57 (73) 10/18/16 08:00 Room Air 10/18/16 07:05 36.8 89 16 124/71 (88) 94 Room Air 10/17/16 23:45 Room Air 10/17/16 23:40 36.9 87 16 109/64 (79) 96 Room Air Physical Exam: General-on ra, slight psychomotor delay, tired but up in chair Eyes-+scleral icterus ENT-dry mm Neck-supple Lungs-improved air entry BL but still quite diminished Heart-rrr Abdomen-bs+/soft; dark brown urine in perez Extremities-trace - 1+ peripheral edema; R arm Neuro-oriented to self and place, fluent/appropriate though delayed speech Current Inpatient Medications Medications (Trade) Dose Ordered Sig/Michael Route Start Time Stop Time Status Last Admin Dose Admin Midodrine (Proamatine Tab) 5 mg TID@0800,1200,1800 PO 09/19/16 18:00 11/17/16 17:59 10/18/16 11:53 5 MG Levalbuterol (Xopenex 0.63 Mg/ 3 Ml Neb) 0.63 mg Q6H PRN INH 09/20/16 08:30 10/20/16 08:29 Rifaximin (Xifaxan Tab) 550 mg BID PO 09/22/16 21:00 10/22/16 20:59 10/18/16 09:24 550 MG Multivitamins (Multivitamin Tab) 1 tab QAM PO 09/25/16 09:00 10/25/16 08:59 10/18/16 09:25 1 TAB Heparin Sodium (Porcine) (Heparin 10 Unit/ ml 5 ml Flush) 5 ml PRN PRN FLUSH 09/25/16 02:00 10/25/16 01:59 10/18/16 14:00 5 ML Metoclopramide HCl (Reglan Inj) 5 mg Q6H PRN IV 09/27/16 12:45 10/25/16 12:44 10/13/16 13:29 5 MG Prednisone (PredniSONE TAB) 5 mg DAILY PO 09/28/16 09:00 10/28/16 08:59 10/18/16 09:25 5 MG Ursodiol (Actigall Cap) 600 mg BID PO 09/28/16 21:00 10/28/16 20:59 10/18/16 09:25 600 MG Pantoprazole Sodium (Protonix Tab) 40 mg QAM PO 09/29/16 09:00 10/29/16 08:59 10/18/16 09:24 40 MG Non-Formulary Medication (Obeticholic Acid (Ocaliva)) 5 mg Sa@0900 PO 10/02/16 14:00 11/01/16 13:59 10/09/16 08:10 5 MG Enteral Nutritional Formula (Boost Pudding) 1 cup BID17 PO 10/05/16 17:00 11/04/16 16:59 10/18/16 09:25 1 CUP Lorazepam 0.25 mg/ Syringe 0.25 ml @ 0.5 mls/min Q6 PRN IV 10/15/16 12:15 11/14/16 12:14 10/18/16 14:00 0.5 MLS/MIN Heparin Sodium (Porcine) (Heparin Sq 5000 Unit/0.5ml) 5,000 unit Q12 SQ 10/15/16 21:00 11/14/16 20:59 10/16/16 09:30 5,000 UNIT Last 24 Hours Test 10/18/16 12:21 White Blood Count 10.04 K/uL Red Blood Count 3.20 M/uL Hemoglobin 9.5 g/dL Hematocrit 29.4 % Mean Corpuscular Volume 91.9 fL Mean Corpuscular Hemoglobin 29.7 pg Mean Corpuscular Hemoglobin Concent 32.3 g/dl Platelet Count 139 K/uL Mean Platelet Volume 9.4 fL Neutrophils (%) (Auto) 79.5 % Lymphocytes (%) (Auto) 8.2 % Monocytes (%) (Auto) 7.6 % Eosinophils (%) (Auto) 3.1 % Basophils (%) (Auto) 0.1 % Neutrophils # (Auto) 7.99 K/uL Lymphocytes # (Auto) 0.82 K/uL Monocytes # (Auto) 0.76 K/uL Eosinophils # (Auto) 0.31 K/uL Basophils # (Auto) 0.01 K/uL RDW Standard Deviation 75.8 fL RDW Coefficient of Variation 22.7 % Immature Granulocyte % (Auto) 1.5 % Immature Granulocyte # (Auto) 0.15 K/uL Hypersegmented Polys 1+ Toxic Granulation 1+ Toxic Vacuolation 1+ Hypochromasia PRESENT Poikilocytosis PRESENT Anisocytosis PRESENT Sodium Level 132 mmol/L Potassium Level 3.4 mmol/L Chloride Level 97 mmol/L Carbon Dioxide Level 25 mmol/L Anion Gap 10.0 mmol/L Blood Urea Nitrogen 38 mg/dl Creatinine 3.50 mg/dl Est Creatinine Clear Calc Drug Dose 18.2 ml/min Estimated GFR () 15.8 Estimated GFR (Non- 13.6 BUN/Creatinine Ratio 10.7 Random Glucose 103 mg/dl Calcium Level 9.7 mg/dl Magnesium Level 2.0 mg/dl Total Bilirubin 12.1 mg/dl Aspartate Amino Transf (AST/SGOT) 61 U/L Alanine Aminotransferase (ALT/SGPT) 16 U/L Alkaline Phosphatase 434 U/L Total Protein 5.1 gm/dl Albumin 2.6 gm/dl Globulin 2.5 gm/dl Albumin/Globulin Ratio 1.0 Assessment & Plan 60 yo female with biliary cirrhosis with anuric ileana/atn vs HRS who required intubation, extubated 09/23. on daily dialysis 09/20-09/25; 09/27-. on intermittent HD ever since; evaluated 10/13-10/15 for renal recovery but remains oliguric Consider this pt now ESRD/ dialysis dependent. -remove perez -ok to stop albumin IV -will do HD today > next HD tentatively for 10/20 Acute on chronic anemia >> cont epo on hd or intermittently SQ << nephro will dose Appreciate consult.
--- NOTE | 2016-10-18 17:32 | Progress Note ---
Internal Med Progress Note Date of Service: Oct 18, 2016. Provider Documentation: SUBJECTIVE: having dialysis today seems comfortable nauseas always eating ok afebrile wants to be discharged OBJECTIVE: Vital Signs-as noted below Exam: General-alert and awake. Not in distress ENT-normal hearing Neck-no neck masses Lungs-cta b/l no wheezing or crackles Heart-s1 and s2 heard regular rate and rhythm, no murmurs Abdomen-soft bowel sounds present non tender no distension Extremities- lower extremity edema present,no erythema Neuro-alert and awake moves extremities Lab data as noted below. ASSESSMENT & PLAN: 60f was admitted for right shoulder pain 6 weeks post ORIF of right proximal humerus and S/P RIGHT REVERSE TOTAL SHOULDER ARTHROPLASTY, REMOVAL OF DEEP HARDWARE RIGHT PROXIMAL HUMERUS, DEBRIDEMENT OF OLECRANON ULCER RIGHT ELBOW. Post op course was complicated by volume overload and possible aspiration pneumonia with Resp failure requiring intubation. Her renal function worsened and requiring dialysis.Hepatorenal syndrome was considered. Has hx of Biliary cirrhosis. S/P Extubation, requiring midodrine to keep BP elevated. required prbc transfusion .Gi and Nephrology following. May need snf dialysis as per nephrology. Plan for [facility] when more stable.Bilirubin keep climbing but GI want to wait and see. Gi recommends f/u with liver/kidney transplant at [place].Plan for TPN as patient oral intake not adequate at this time and refusing Tube feeds. Active issues are to complete iv abx which are done 10/09/16, f/u lfts for rising bilirubin levels and nutrition and pt/ot. Started TPN for few days and stopped later on.Plan for [facility] [place] when more stable, hopefully next week. Wants to go home and thinks that her is not taking her home. Needs to participate in pt/ot. Nephrology made decision of ESRD and patient requires [facility] dialysis.Await placement Hospital course so far: Hx of biliary cirrhosis with portal hypertension. GI and nutrition consulted. Bilirubin remains elevated ,worsening ,12.1 on 10/1116 ON rifaximin.Restarted obeticholic acid. Appreciate GI input Liver US on 10/03/16- no acute findings Monitor LFTs-LFTs are better but the bilirubin is going up PBC is gradually worsening called GI service at [place] on 10/15/16- patient needs to ambulate for transplant plan for rehab hopefully soon Chronic kidney disease stage 3 with acute kidney injury - ATN vs hepatorenal syndrome. Placement of hemodialysis catheter 09/27 and started on dialysis Management per Nephrology. ESRD as per nephrology Dialysis as per nephrology Acute hypoxic respiratory failure 09/20/16 secondary to fluid overload from IV fluids and albumin; Aspiration pneumonia Required intubation/mechanical ventilation. Improved with dialysis. Extubated 09/24/16. currently stable on room air Hypotension Stable on midodrine Continue same for now Altered mental status/encephalopathy secondary to multifactorial delirium. Head CT negative for acute event. Continue rifaximin for hepatic encephalopathy. stable currently Aspiration pneumonia Received IV vancomycin and piperacillin/tazobactam for possible aspiration pneumonia. Receiving fluconazole for Melissa albicans noted in sputum and bronchial washings. Loose stools - negative for C. difficile 09/27. CT chest / abdomen / pelvis did not show any apparent source of infection. ID consulted. WBC 12.8-normalized was on Primaxin and vanco #10 to complete 10 day course as per ID- t stopped abx on 10/09/16 Anemia acute on chronic? Hemoglobin 9.5 on admission, fell as low as 5.6 on 09/29/16. No obvious GI bleeding, but stools heme +. CT abdomen and pelvis did not show any apparent retroperitoneal or intra- abdominal bleed. Received 3 units of PRBC so far Hb Stable >9.0 Thrombocytopenia Platelet improved to 139 from as low as 70s Heparin 5000 units SQ BID She does not like SCDs f/u labs. GENERAL DEBILITATION Increase activity as tolerated. Malnutrition nutrition consult not liking boost received parenteral nutrition and discontinued Depression Appreciate Psychiatric evaluation Does not want any medication Right Knee swelling US:: 10.7 x 2.5 x 4.5 cm complex right thigh fluid collection within the deep soft tissues. The sonographic appearance is nonspecific but this may reflect a resolving hematoma or seroma. Abscess is considered less likely. will f/u repeat US VTE PROPHYLAXIS Started on Heparin SQ BID DISPOSITION need to participate in pt/ot social service for d/c planning await placement Vital Signs: Date Time Temp Pulse Resp B/P (MAP) Pulse Ox O2 Delivery O2 Flow Rate FiO2 10/18/16 17:05 36.7 84 114/54 (74) 10/18/16 16:45 77 113/58 10/18/16 16:30 78 113/52 10/18/16 16:15 77 109/47 10/18/16 16:00 79 101/56 10/18/16 15:47 36.8 78 16 112/56 (74) 96 Room Air 10/18/16 15:46 79 108/89 10/18/16 15:30 78 112/56 10/18/16 15:15 79 109/50 10/18/16 15:01 83 108/56 10/18/16 14:45 77 121/51 10/18/16 14:31 78 128/58 10/18/16 14:16 78 107/42 10/18/16 14:00 75 104/58 10/18/16 13:54 81 119/62 10/18/16 13:45 36.6 78 106/57 (73) 10/18/16 08:00 Room Air 10/18/16 07:05 36.8 89 16 124/71 (88) 94 Room Air 10/17/16 23:45 Room Air 10/17/16 23:40 36.9 87 16 109/64 (79) 96 Room Air Lab Results: Results Past 24 Hours Test 10/18/16 12:21 Range/Units White Blood Count 10.04 4.8-10.8 K/uL Red Blood Count 3.20 4.2-5.4 M/uL Hemoglobin 9.5 12.0-16.0 g/dL Hematocrit 29.4 37-47 % Mean Corpuscular Volume 91.9 80-100 fL Mean Corpuscular Hemoglobin 29.7 25-34 pg Mean Corpuscular Hemoglobin Concent 32.3 32-36 g/dl Platelet Count 139 130-400 K/uL Mean Platelet Volume 9.4 7.4-10.4 fL Neutrophils (%) (Auto) 79.5 % Lymphocytes (%) (Auto) 8.2 % Monocytes (%) (Auto) 7.6 % Eosinophils (%) (Auto) 3.1 % Basophils (%) (Auto) 0.1 % Neutrophils # (Auto) 7.99 1.4-6.5 K/uL Lymphocytes # (Auto) 0.82 1.2-3.4 K/uL Monocytes # (Auto) 0.76 0.11-0.59 K/uL Eosinophils # (Auto) 0.31 0-0.5 K/uL Basophils # (Auto) 0.01 0-0.2 K/uL RDW Standard Deviation 75.8 36.4-46.3 fL RDW Coefficient of Variation 22.7 11.5-14.5 % Immature Granulocyte % (Auto) 1.5 % Immature Granulocyte # (Auto) 0.15 0.00-0.02 K/uL Hypersegmented Polys 1+ Toxic Granulation 1+ Toxic Vacuolation 1+ Hypochromasia PRESENT Poikilocytosis PRESENT Anisocytosis PRESENT Sodium Level 132 136-145 mmol/L Potassium Level 3.4 3.5-5.1 mmol/L Chloride Level 97 98-107 mmol/L Carbon Dioxide Level 25 21-32 mmol/L Anion Gap 10.0 3-11 mmol/L Blood Urea Nitrogen 38 7-18 mg/dl Creatinine 3.50 0.60-1.20 mg/dl Est Creatinine Clear Calc Drug Dose 18.2 ml/min Estimated GFR () 15.8 Estimated GFR (Non- 13.6 BUN/Creatinine Ratio 10.7 10-20 Random Glucose 103 70-99 mg/dl Calcium Level 9.7 8.5-10.1 mg/dl Magnesium Level 2.0 1.8-2.4 mg/dl Total Bilirubin 12.1 0.2-1 mg/dl Aspartate Amino Transf (AST/SGOT) 61 15-37 U/L Alanine Aminotransferase (ALT/SGPT) 16 12-78 U/L Alkaline Phosphatase 434 45-117 U/L Total Protein 5.1 6.4-8.2 gm/dl Albumin 2.6 3.4-5.0 gm/dl Globulin 2.5 2.5-4.0 gm/dl Albumin/Globulin Ratio 1.0 0.9-2
--- NOTE | 2016-10-19 06:32 | DIAGNOSTIC IMAGING REPORT ---
ULTRASOUND RIGHT VENOUS DOPP LOWER EXT UNILAT CLINICAL HISTORY: Right leg pain and swelling COMPARISON STUDY: 10/12/2016 FINDINGS: Real-time and color flow Doppler imaging were performed. Flow was seen within the femoral, popliteal and calf veins with no intraluminal thrombus demonstrated. The saphenous vein is patent. Within the proximal medial thigh there is 11.6 x 2.3 x 4.6 cm complex fluid collection adjacent to the greater saphenous and superficial femoral veins. This does not appear to communicate with the vascular structures. There is no internal Doppler signal. There is also a superficial collection within the right lateral knee to proximal calf region measuring 15.8 x 1.7 x 5.7 cm. IMPRESSION: 1. No evidence of right lower extremity DVT 2. Stable complex fluid collection with the proximal thigh measuring 11.6 x 2.3 x 4.6 cm. While nonspecific this may represent a resolving hematoma or seroma 3. Superficial fluid collection within the right lateral knee to proximal calf region measuring 15.8 x 1.7 x 5.7 cm. This second collection was not described on the preceding study. Electronically signed by: Yusef Sotelo M.D. 10/19/2016 6:31 AM Dictated Date/Time: 10/19/2016 6:28 AM
[2016-10-19 08:00] VITALS: BP 106/65; PULSE 89; TEMP 36.8; O2SAT 96
[2016-10-19] MEDS: RIFAXIMIN TAB 550 MG TAB PO SCH ×2 (08:48→20:26)
[2016-10-19] MEDS: URSODIOL 300 MG CAP PO SCH ×2 (08:48→20:26)
[2016-10-19] MEDS: BOOST VANILLA PUDDING CUP PO SCH ×2 (08:48→17:00)
[2016-10-19] MEDS: HEPARIN SOD 5000 UNIT/0.5 ML CARP SQ SCH ×2 (08:49→20:25)
[2016-10-19] MEDS: MIDODRINE 2.5 MG TAB PO SCH ×3 (08:49→17:39)
[2016-10-19] MEDS: MULTIVITAMIN TAB PO SCH (08:49)
[2016-10-19] MEDS: PANTOprazole SOD 40 MG TAB PO SCH (08:49)
[2016-10-19] MEDS ORDERED: SERTRALINE HCL 50 MG TAB PO ONE (14:30)
[2016-10-19 15:09] VITALS: BP 118/69; PULSE 88; TEMP 36.8; O2SAT 96
--- NOTE | 2016-10-19 16:56 | Progress Note ---
Internal Med Progress Note Date of Service: Oct 19, 2016. Provider Documentation: SUBJECTIVE: resting comfortably wants to be placed back on Zoloft afebrile awaiting placement sat on the chair for sometime OBJECTIVE: Vital Signs-as noted below Exam: General-alert and awake. Not in distress ENT-normal hearing Neck-no neck masses Lungs-cta b/l no wheezing or crackles Heart-s1 and s2 heard regular rate and rhythm, no murmurs Abdomen-soft bowel sounds present non tender no distension Extremities- lower extremity edema present,no erythema right knee mildly tender Neuro-alert and awake moves extremities Lab data as noted below. ASSESSMENT & PLAN: 60f was admitted for right shoulder pain 6 weeks post ORIF of right proximal humerus and S/P RIGHT REVERSE TOTAL SHOULDER ARTHROPLASTY, REMOVAL OF DEEP HARDWARE RIGHT PROXIMAL HUMERUS, DEBRIDEMENT OF OLECRANON ULCER RIGHT ELBOW. Post op course was complicated by volume overload and possible aspiration pneumonia with Resp failure requiring intubation. Her renal function worsened and requiring dialysis.Hepatorenal syndrome was considered. Has hx of Biliary cirrhosis. S/P Extubation, requiring midodrine to keep BP elevated. required prbc transfusion .Gi and Nephrology following. May need longterm dialysis as per nephrology. [facility] [place] [facility] [place] when more stable.Bilirubin keep climbing but GI want to wait and see. Gi recommends f/u with liver/kidney transplant at [place].Plan for TPN as patient oral intake not adequate at this time and refusing Tube feeds. Active issues are to complete iv abx which are done 10/09/16, f/u lfts for rising bilirubin levels and nutrition and pt/ot.Plan [facility] [place] or SNF soon. Nephrology made decision of ESRD and patient requires longterm dialysis.Restarted Zoloft. Await ortho ionput on fluid collection in right knee area.Await placement Hospital course so far: Hx of biliary cirrhosis with portal hypertension. GI and nutrition consulted. Bilirubin remains elevated ,worsening ,12.1 on 10/1116 ON rifaximin.Restarted obeticholic acid. Appreciate GI input Liver US on 10/03/16- no acute findings Monitor LFTs-LFTs are better but the bilirubin is going up PBC is gradually worsening called GI service at [place] on 10/15/16- patient needs to ambulate for transplant plan for rehab/SNF hopefully soon Chronic kidney disease stage 3 with acute kidney injury - ATN vs hepatorenal syndrome. Placement of hemodialysis catheter 09/27 and started on dialysis Management per Nephrology. ESRD as per nephrology Dialysis as per nephrology Acute hypoxic respiratory failure 09/20/16 secondary to fluid overload from IV fluids and albumin; Aspiration pneumonia Required intubation/mechanical ventilation. Improved with dialysis. Extubated 09/24/16. currently stable on room air Hypotension Stable on midodrine Continue same for now Altered mental status/encephalopathy secondary to multifactorial delirium. Head CT negative for acute event. Continue rifaximin for hepatic encephalopathy. stable currently Aspiration pneumonia Received IV vancomycin and piperacillin/tazobactam for possible aspiration pneumonia. Receiving fluconazole for Melissa albicans noted in sputum and bronchial washings. Loose stools - negative for C. difficile 09/27. CT chest / abdomen / pelvis did not show any apparent source of infection. ID consulted. WBC 12.8-normalized was on Primaxin and vanco #10 to complete 10 day course as per ID- stopped abx on 10/09/16 Anemia acute on chronic? Hemoglobin 9.5 on admission, fell as low as 5.6 on 09/29/16. No obvious GI bleeding, but stools heme +. CT abdomen and pelvis did not show any apparent retroperitoneal or intra- abdominal bleed. Received 3 units of PRBC so far Hb Stable >9.0 Thrombocytopenia Platelet improved to 139 from as low as 70s Heparin 5000 units SQ BID She does not like SCDs f/u labs. GENERAL DEBILITATION Increase activity as tolerated. Malnutrition nutrition consult not liking boost received parenteral nutrition and discontinued Depression Appreciate Psychiatric evaluation Does not want any medication Right Knee swelling US:: 10.7 x 2.5 x 4.5 cm complex right thigh fluid collection within the deep soft tissues. The sonographic appearance is nonspecific but this may reflect a resolving hematoma or seroma. Abscess is considered less likely. repeat US same and also collection in right lateral knee area. Await Ortho input Pressure Ulcer Right elbow stage 3-4 wound care following VTE PROPHYLAXIS on Heparin SQ BID DISPOSITION need to participate in pt/ot social service for d/c planning await placement Vital Signs: Date Time Temp Pulse Resp B/P (MAP) Pulse Ox O2 Delivery O2 Flow Rate FiO2 10/19/16 15:09 36.8 88 16 118/69 (85) 96 Room Air 10/19/16 08:36 Room Air 10/19/16 08:00 36.8 89 16 106/65 (79) 96 Room Air 10/19/16 00:45 Room Air 10/18/16 23:37 36.9 85 16 119/70 (86) 94 Room Air 10/18/16 17:05 36.7 84 114/54 (74)
[2016-10-20] VITALS (21 sets, daily range): BP systolic 94–135; BP diastolic 31–76; PULSE 84–101; TEMP 36.6–37.1; O2SAT 92–96
[2016-10-20] MEDS: LORAZEPAM INJ 0.25 MG in SYRINGE 0.125 ML IV PRN ×2 (01:16→20:38)
[2016-10-20 06:10] LABS: HEMATOCRIT 28.2 % (37-47); MEAN CELL VOLUME 91.3 fL (80-100); MEAN CORPUSCULAR HEMOGLOBIN 29.8 pg (25-34); MEAN CORPUSCULAR HGB CONC 32.6 g/dl (32-36); RED BLOOD COUNT 3.09 M/uL (4.2-5.4); WHITE BLOOD COUNT 10.04 K/uL (4.8-10.8)
[2016-10-20 06:43] LABS: BUN/CREATININE RATIO 8.9 (10-20); CREATININE 2.8 mg/dl (0.60-1.20); POTASSIUM 3.5 mmol/L (3.5-5.1)
[2016-10-20 06:47] LABS: ALB/GLOB RATIO 0.9 (0.9-2)
[2016-10-20] MEDS: MIDODRINE 2.5 MG TAB PO SCH ×3 (07:33→18:27)
[2016-10-20 07:50] LABS: ANISOCYTOSIS PRESENT; BASO % 0.1 %; BASO ABS # 0.01 K/uL (0-0.2); COMPLETE YES; ECHINOCYTES 1+; EOS % 2.5 %; HYPERSEGMENTED POLYS 1+; IG% 0.7 %; LYMPH % 13.2 %; LYMPH ABS # 1.33 K/uL (1.2-3.4); MEAN PLATELET VOLUME 10.1 fL (7.4-10.4); MONO % 7.4 %; NEUT % 76.1 %; PLATELET COUNT 96 K/uL (130-400); POIKILOCYTOSIS PRESENT
[2016-10-20] MEDS ORDERED: EPOETIN ALFA 4000 UNITS/ML VIAL IV. ONE (08:00)
[2016-10-20] MEDS ORDERED: HEPARIN SOD (PORCINE) 1000 UNIT/ML 10 ML VIAL IV ONE (08:00)
[2016-10-20] MEDS: HEPARIN SOD 5000 UNIT/0.5 ML CARP SQ SCH ×2 (09:00→20:36)
[2016-10-20] MEDS: BOOST VANILLA PUDDING CUP PO SCH ×2 (09:00→18:26)
[2016-10-20] MEDS: MULTIVITAMIN TAB PO SCH (09:08)
[2016-10-20] MEDS: URSODIOL 300 MG CAP PO SCH ×2 (09:08→20:40)
[2016-10-20] MEDS: PANTOprazole SOD 40 MG TAB PO SCH (09:09)
[2016-10-20] MEDS: RIFAXIMIN TAB 550 MG TAB PO SCH ×2 (09:09→20:37)
[2016-10-20] MEDS: SERTRALINE HCL 50 MG TAB PO SCH (09:10)
--- NOTE | 2016-10-20 09:51 | Nephrology Progress Note ---
Nephrology Progress Note Date of Service: Oct 20, 2016. Subjective 60 yo female with biliary cirrhosis with anuric ileana/atn vs HRS who required intubation, extubated 09/23. on daily dialysis 09/20-09/25; 09/27-. on intermittent HD ever since; evaluated 10/13-10/15 for renal recovery but remains oliguric. Today patient is in slightly improved mood but still very depressed over circumstances. she is for dialysis today and has been tolerating it well. no nausea, SOB, chest pain, or cramping. does not note any increase in urine output. Objective Date Time Temp Pulse Resp B/P (MAP) Pulse Ox O2 Delivery O2 Flow Rate FiO2 10/20/16 07:30 Room Air 10/20/16 07:06 36.7 90 19 135/76 (95) 96 Room Air 10/20/16 00:35 36.6 87 17 126/76 (93) 96 Room Air 10/20/16 00:30 Room Air 10/19/16 20:00 Room Air 10/19/16 15:09 36.8 88 16 118/69 (85) 96 Room Air Physical Exam: General-on ra, slight psychomotor delay Head: Normocephalic, No masses, lesions, tenderness, or abnormalities ENT-dry mm Neck-supple, no adenopathy Lungs-improved air entry BL but still quite diminished Heart-rrr Abdomen-bs+/soft nt/nd Extremities-no edema b/l le, small lesion on left knee; edema in R arm Neuro-oriented to self and place, fluent/appropriate though delayed speech Current Inpatient Medications Medications (Trade) Dose Ordered Sig/Michael Route Start Time Stop Time Status Last Admin Dose Admin Midodrine (Proamatine Tab) 5 mg TID@0800,1200,1800 PO 09/19/16 18:00 11/17/16 17:59 10/20/16 07:33 5 MG Rifaximin (Xifaxan Tab) 550 mg BID PO 09/22/16 21:00 10/22/16 20:59 10/20/16 09:09 550 MG Multivitamins (Multivitamin Tab) 1 tab QAM PO 09/25/16 09:00 10/25/16 08:59 10/20/16 09:08 1 TAB Heparin Sodium (Porcine) (Heparin 10 Unit/ ml 5 ml Flush) 5 ml PRN PRN FLUSH 09/25/16 02:00 10/25/16 01:59 10/20/16 05:38 5 ML Metoclopramide HCl (Reglan Inj) 5 mg Q6H PRN IV 09/27/16 12:45 10/25/16 12:44 10/13/16 13:29 5 MG Prednisone (PredniSONE TAB) 5 mg DAILY PO 09/28/16 09:00 10/28/16 08:59 10/20/16 09:09 5 MG Ursodiol (Actigall Cap) 600 mg BID PO 09/28/16 21:00 10/28/16 20:59 10/20/16 09:08 600 MG Pantoprazole Sodium (Protonix Tab) 40 mg QAM PO 09/29/16 09:00 10/29/16 08:59 10/20/16 09:09 40 MG Non-Formulary Medication (Obeticholic Acid (Ocaliva)) 5 mg Sa@0900 PO 10/02/16 14:00 11/01/16 13:59 10/09/16 08:10 5 MG Enteral Nutritional Formula (Boost Pudding) 1 cup BID17 PO 10/05/16 17:00 11/04/16 16:59 10/18/16 09:25 1 CUP Lorazepam 0.25 mg/ Syringe 0.25 ml @ 0.5 mls/min Q6 PRN IV 10/15/16 12:15 11/14/16 12:14 10/20/16 01:16 0.5 MLS/MIN Heparin Sodium (Porcine) (Heparin Sq 5000 Unit/0.5ml) 5,000 unit Q12 SQ 10/15/16 21:00 11/14/16 20:59 10/16/16 09:30 5,000 UNIT Sertraline HCl (Zoloft Tab) 50 mg QAM PO 10/20/16 09:00 11/19/16 08:59 10/20/16 09:10 50 MG Heparin Sodium (Porcine) (Heparin Iv Bolus) 400 unit Q1H IV 10/20/16 08:00 10/20/16 10:01 Last 24 Hours Test 10/20/16 05:37 White Blood Count 10.04 K/uL Red Blood Count 3.09 M/uL Hemoglobin 9.2 g/dL Hematocrit 28.2 % Mean Corpuscular Volume 91.3 fL Mean Corpuscular Hemoglobin 29.8 pg Mean Corpuscular Hemoglobin Concent 32.6 g/dl Platelet Count 96 K/uL Mean Platelet Volume 10.1 fL Neutrophils (%) (Auto) 76.1 % Lymphocytes (%) (Auto) 13.2 % Monocytes (%) (Auto) 7.4 % Eosinophils (%) (Auto) 2.5 % Basophils (%) (Auto) 0.1 % Neutrophils # (Auto) 7.64 K/uL Lymphocytes # (Auto) 1.33 K/uL Monocytes # (Auto) 0.74 K/uL Eosinophils # (Auto) 0.25 K/uL Basophils # (Auto) 0.01 K/uL RDW Standard Deviation 74.5 fL RDW Coefficient of Variation 22.5 % Immature Granulocyte % (Auto) 0.7 % Immature Granulocyte # (Auto) 0.07 K/uL Hypersegmented Polys 1+ Poikilocytosis PRESENT Anisocytosis PRESENT Echinocytes 1+ Sodium Level 133 mmol/L Potassium Level 3.5 mmol/L Chloride Level 98 mmol/L Carbon Dioxide Level 26 mmol/L Anion Gap 9.0 mmol/L Blood Urea Nitrogen 25 mg/dl Creatinine 2.80 mg/dl Est Creatinine Clear Calc Drug Dose 22.4 ml/min Estimated GFR () 20.7 Estimated GFR (Non- 17.9 BUN/Creatinine Ratio 8.9 Random Glucose 68 mg/dl Calcium Level 10.0 mg/dl Total Bilirubin 11.1 mg/dl Aspartate Amino Transf (AST/SGOT) 51 U/L Alanine Aminotransferase (ALT/SGPT) 18 U/L Alkaline Phosphatase 450 U/L Total Protein 4.9 gm/dl Albumin 2.3 gm/dl Globulin 2.6 gm/dl Albumin/Globulin Ratio 0.9 Other Studies: 10/19/16 10/20/16 10/21/16 08:00 08:00 08:00 Intake Total 220 ml 80 ml Output Total 501 ml Balance -281 ml 80 ml Assessment & Plan ESRD: ileana/atn vs HRS but for now will continue HD and monitor for renal recovery. Will plan on having HD today and will continue on m/w/f schedule or as clinical condition dictates. Will continue as an outpt. does not appear fluid overloaded. potassium 3.5. anemia of chronic disease: will continue EPO with goal to keep hgb between 10- 11. This patient was seen and examined with direct collaboration with Dr. Jones. Thank you for the opportunity to participate in this patient's care. Appreciate the Consult. 60 y/o F w/ ESRD for routine dialysis today. Remains very depressed. on RA and tolerating. VSS, not vol OL on exam excessively. further details of plan per pa note which I have reviewed; with which i agree. S Robert JAMES PhD
[2016-10-20] MEDS: METOCLOPRAMIDE HCL INJ 5 MG/ML 2 ML VIAL IV PRN ×2 (13:06→20:38)
[2016-10-20] MEDS: HEPARIN SOD (PORCINE) 1000 UNIT/ML 10 ML VIAL IV SCH ×2 (16:00→17:00)
--- NOTE | 2016-10-20 17:33 | Progress Note ---
Internal Med Progress Note Date of Service: Oct 20, 2016. Provider Documentation: SUBJECTIVE: Father in room father and his fiance asking if she can take her home and do out patient therapy but after long discussion agreed to try [facility] patient says she cannot have liver transplant as she will not make it at her current condition . Refuses Tube feeding says her legs hurt if she stands up appetite poor afebrile no sob patient just wants to go home but after long discussion with her father and herself she seems ok to try rehab OBJECTIVE: Vital Signs-as noted below Exam: General-alert and awake. Not in distress ENT-normal hearing Neck-no neck masses Lungs-cta b/l no wheezing or crackles Heart-s1 and s2 heard regular rate and rhythm, no murmurs Abdomen-soft bowel sounds present non tender no distension Extremities- lower extremity edema present,no erythema right knee mildly tender Neuro-alert and awake moves extremities Lab data as noted below. ASSESSMENT & PLAN: 60f was admitted for right shoulder pain 6 weeks post ORIF of right proximal humerus and S/P RIGHT REVERSE TOTAL SHOULDER ARTHROPLASTY, REMOVAL OF DEEP HARDWARE RIGHT PROXIMAL HUMERUS, DEBRIDEMENT OF OLECRANON ULCER RIGHT ELBOW. Post op course was complicated by volume overload and possible aspiration pneumonia with Resp failure requiring intubation. Her renal function worsened and requiring dialysis.Hepatorenal syndrome was considered. Has hx of Biliary cirrhosis. S/P Extubation, requiring midodrine to keep BP elevated. required prbc transfusion .Gi and Nephrology following. May need half-way dialysis as per nephrology. Plan for [facility] when more stable.Bilirubin keep climbing but GI want to wait and see. Gi recommends f/u with liver/kidney transplant at [place].Plan for TPN as patient oral intake not adequate at this time and refusing Tube feeds. Active issues are to complete iv abx which are done 10/09/16, f/u lfts for rising bilirubin levels and nutrition and pt/ot.Plan for [facility] or SNF soon. 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 Awaiting ortho input on fluid collection in right knee area.Awaiting [facility] placement. f/u labs in am Hospital course so far: Hx of biliary cirrhosis with portal hypertension. GI and nutrition consulted. Bilirubin remains elevated ,worsening ,12.1 on 10/1116 ON rifaximin.Restarted obeticholic acid. Appreciate GI input Liver US on 10/03/16- no acute findings Monitor LFTs-LFTs are better but the bilirubin is going up PBC is gradually worsening called GI service at [place] on 10/15/16- patient needs to ambulate for transplant plan for rehab/SNF hopefully soon Chronic kidney disease stage 3 with acute kidney injury - ATN vs hepatorenal syndrome. Placement of hemodialysis catheter 09/27 and started on dialysis Management per Nephrology. ESRD as per nephrology Dialysis as per nephrology Acute hypoxic respiratory failure 09/20/16 secondary to fluid overload from IV fluids and albumin; Aspiration pneumonia Required intubation/mechanical ventilation. Improved with dialysis. Extubated 09/24/16. currently stable on room air Hypotension Stable on midodrine Continue same for now Altered mental status/encephalopathy secondary to multifactorial delirium. Head CT negative for acute event. Continue rifaximin for hepatic encephalopathy. stable currently Aspiration pneumonia Received IV vancomycin and piperacillin/tazobactam for possible aspiration pneumonia. Receiving fluconazole for Melissa albicans noted in sputum and bronchial washings. Loose stools - negative for C. difficile 09/27. CT chest / abdomen / pelvis did not show any apparent source of infection. ID consulted. WBC 12.8-normalized was on Primaxin and vanco #10 to complete 10 day course as per ID- stopped abx on 10/09/16 Anemia acute on chronic? Hemoglobin 9.5 on admission, fell as low as 5.6 on 09/29/16. No obvious GI bleeding, but stools heme +. CT abdomen and pelvis did not show any apparent retroperitoneal or intra- abdominal bleed. Received 3 units of PRBC so far Hb Stable >9.0 Thrombocytopenia Platelet improved to 139 from as low as 70s Heparin 5000 units SQ BID She does not like SCDs f/u labs. GENERAL DEBILITATION Increase activity as tolerated. Malnutrition nutrition consult not liking boost received parenteral nutrition and discontinued Depression Appreciate Psychiatric evaluation Does not want any medication Right Knee swelling US:: 10.7 x 2.5 x 4.5 cm complex right thigh fluid collection within the deep soft tissues. The sonographic appearance is nonspecific but this may reflect a resolving hematoma or seroma. Abscess is considered less likely. repeat US same and also collection in right lateral knee area. Await Ortho input Pressure Ulcer Right elbow stage 3-4 wound care following VTE PROPHYLAXIS on Heparin SQ BID DISPOSITION need to participate in pt/ot social service for d/c planning await placement Vital Signs: Date Time Temp Pulse Resp B/P (MAP) Pulse Ox O2 Delivery O2 Flow Rate FiO2 10/20/16 17:00 93 101/39 10/20/16 16:45 93 104/50 10/20/16 16:30 92 115/48 10/20/16 16:15 88 103/47 10/20/16 16:00 88 96/44 10/20/16 15:49 36.9 87 18 105/48 (67) 96 Room Air 10/20/16 15:45 88 111/43 10/20/16 15:30 87 105/48 10/20/16 15:15 85 110/31 10/20/16 15:00 86 94/53 10/20/16 14:45 101 135/72 10/20/16 14:30 36.6 84 134/65 (88) 10/20/16 07:30 Room Air 10/20/16 07:06 36.7 90 19 135/76 (95) 96 Room Air 10/20/16 00:35 36.6 87 17 126/76 (93) 96 Room Air 10/20/16 00:30 Room Air 10/19/16 20:00 Room Air Lab Results: Results Past 24 Hours Test 10/20/16 05:37 Range/Units White Blood Count 10.04 4.8-10.8 K/uL Red Blood Count 3.09 4.2-5.4 M/uL Hemoglobin 9.2 12.0-16.0 g/dL Hematocrit 28.2 37-47 % Mean Corpuscular Volume 91.3 80-100 fL Mean Corpuscular Hemoglobin 29.8 25-34 pg Mean Corpuscular Hemoglobin Concent 32.6 32-36 g/dl Platelet Count 96 130-400 K/uL Mean Platelet Volume 10.1 7.4-10.4 fL Neutrophils (%) (Auto) 76.1 % Lymphocytes (%) (Auto) 13.2 % Monocytes (%) (Auto) 7.4 % Eosinophils (%) (Auto) 2.5 % Basophils (%) (Auto) 0.1 % Neutrophils # (Auto) 7.64 1.4-6.5 K/uL Lymphocytes # (Auto) 1.33 1.2-3.4 K/uL Monocytes # (Auto) 0.74 0.11-0.59 K/uL Eosinophils # (Auto) 0.25 0-0.5 K/uL Basophils # (Auto) 0.01 0-0.2 K/uL RDW Standard Deviation 74.5 36.4-46.3 fL RDW Coefficient of Variation 22.5 11.5-14.5 % Immature Granulocyte % (Auto) 0.7 % Immature Granulocyte # (Auto) 0.07 0.00-0.02 K/uL Hypersegmented Polys 1+ Poikilocytosis PRESENT Anisocytosis PRESENT Echinocytes 1+ Sodium Level 133 136-145 mmol/L Potassium Level 3.5 3.5-5.1 mmol/L Chloride Level 98 98-107 mmol/L Carbon Dioxide Level 26 21-32 mmol/L Anion Gap 9.0 3-11 mmol/L Blood Urea Nitrogen 25 7-18 mg/dl Creatinine 2.80 0.60-1.20 mg/dl Est Creatinine Clear Calc Drug Dose 22.4 ml/min Estimated GFR () 20.7 Estimated GFR (Non- 17.9 BUN/Creatinine Ratio 8.9 10-20 Random Glucose 68 70-99 mg/dl Calcium Level 10.0 8.5-10.1 mg/dl Total Bilirubin 11.1 0.2-1 mg/dl Aspartate Amino Transf (AST/SGOT) 51 15-37 U/L Alanine Aminotransferase (ALT/SGPT) 18 12-78 U/L Alkaline Phosphatase 450 45-117 U/L Total Protein 4.9 6.4-8.2 gm/dl Albumin 2.3 3.4-5.0 gm/dl Globulin 2.6 2.5-4.0 gm/dl Albumin/Globulin Ratio 0.9 0.9-2 Microbiology Results 10/20/16 C.difficile Toxin B Gene (PCR) - Final, Complete No C. difficile toxin B gene detected
[2016-10-21] VITALS (8 sets, daily range): BP systolic 87–120; BP diastolic 54–71; PULSE 87–102; TEMP 36.8–37.2; O2SAT 93–100
[2016-10-21] MEDS: RIFAXIMIN TAB 550 MG TAB PO SCH (08:30)
[2016-10-21] MEDS: BOOST VANILLA PUDDING CUP PO SCH (08:30)
[2016-10-21] MEDS: URSODIOL 300 MG CAP PO SCH (08:30)
[2016-10-21] MEDS: HEPARIN SOD 5000 UNIT/0.5 ML CARP SQ SCH (08:31)
[2016-10-21] MEDS: MULTIVITAMIN TAB PO SCH (08:31)
[2016-10-21] MEDS: PANTOprazole SOD 40 MG TAB PO SCH (08:31)
[2016-10-21] MEDS: SERTRALINE HCL 50 MG TAB PO SCH (08:31)
[2016-10-21] MEDS: MIDODRINE 2.5 MG TAB PO SCH ×2 (08:32→12:04)
--- NOTE | 2016-10-21 11:03 | Progress Note ---
Internal Med Progress Note Date of Service: Oct 21, 2016. Provider Documentation: SUBJECTIVE: patient is approved for rehab and she is happy about that poor appetite has nausea no sob no pain moved bowels last night afebrile stable hemodynamics OBJECTIVE: Vital Signs-as noted below Exam: General-alert and awake. Not in distress ENT-normal hearing Neck-no neck masses Lungs-cta b/l no wheezing or crackles Heart-s1 and s2 heard regular rate and rhythm, no murmurs Abdomen-soft bowel sounds present non tender no distension Extremities- lower extremity edema present,no erythema right knee mildly tender Neuro-alert and awake moves extremities Lab data as noted below. ASSESSMENT & PLAN: 60f was admitted for right shoulder pain 6 weeks post ORIF of right proximal humerus and S/P RIGHT REVERSE TOTAL SHOULDER ARTHROPLASTY, REMOVAL OF DEEP HARDWARE RIGHT PROXIMAL HUMERUS, DEBRIDEMENT OF OLECRANON ULCER RIGHT ELBOW. Post op course was complicated by volume overload and possible aspiration pneumonia with Resp failure requiring intubation. Her renal function worsened and requiring dialysis.Hepatorenal syndrome was considered. Has hx of Biliary cirrhosis. S/P Extubation, requiring midodrine to keep BP elevated. required prbc transfusion .Heme/onco was consulted for anemia and thought anemia mostly post op and possible gi bleeding.Gi and Nephrology following. May need correction dialysis as per nephrology. Plan for [facility] when more stable.Bilirubin keep climbing but GI want to wait and see. Gi recommends f/u with liver/kidney transplant at [place].Poor oral intake was on tube feeds earlier but refusing Tube feeds now Completed iv abx for aspiration pneumonia and right elbow pressure ulcer. 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 Awaiting ortho input on fluid collection in right knee area. called Gi service at [place] on 10/15/16 and to consider transplant if her condition improves. Planning for [facility] today. F/u cbc and cmp with pcp and GI. Hospital course so far: Hx of biliary cirrhosis with portal hypertension. GI and nutrition consulted. Bilirubin remains elevated ,worsening ,12.1 on 10/1116 ON rifaximin.Restarted obeticholic acid. Appreciate GI input Liver US on 10/03/16- no acute findings Monitor LFTs-LFTs are better but the bilirubin is going up PBC is gradually worsening called GI service at [place] on 10/15/16- patient needs to ambulate for transplant plan for rehab soon Chronic kidney disease stage 3 with acute kidney injury - ATN vs hepatorenal syndrome. Placement of hemodialysis catheter 09/27 and started on dialysis Management per Nephrology. ESRD as per nephrology Dialysis as per nephrology Acute hypoxic respiratory failure 09/20/16 secondary to fluid overload from IV fluids and albumin; Aspiration pneumonia Required intubation/mechanical ventilation. Improved with dialysis. Extubated 09/24/16. currently stable on room air Hypotension Stable on midodrine Continue same for now Altered mental status/encephalopathy secondary to multifactorial delirium. Head CT negative for acute event. Continue rifaximin for hepatic encephalopathy. stable currently Aspiration pneumonia Received IV vancomycin and piperacillin/tazobactam for possible aspiration pneumonia. Receiving fluconazole for Melissa albicans noted in sputum and bronchial washings. Loose stools - negative for C. difficile 09/27. CT chest / abdomen / pelvis did not show any apparent source of infection. ID consulted. WBC 12.8-normalized was on Primaxin and vanco #10 to complete 10 day course as per ID- stopped abx on 10/09/16 Anemia acute on chronic? Hemoglobin 9.5 on admission, fell as low as 5.6 on 09/29/16. No obvious GI bleeding, but stools heme +. CT abdomen and pelvis did not show any apparent retroperitoneal or intra- abdominal bleed. Seen by GI and Heme/onco Received 3 units of PRBC so far Hb Stable >9.0 Thrombocytopenia Platelet improved to 139 and then 96 10/20/16 f/u labs. GENERAL DEBILITATION Increase activity as tolerated. Malnutrition nutrition consult not liking boost received parenteral nutrition and discontinued refusing tube feeds Depression Appreciate Psychiatric evaluation restarted Zoloft Right Knee swelling US:: 10.7 x 2.5 x 4.5 cm complex right thigh fluid collection within the deep soft tissues. The sonographic appearance is nonspecific but this may reflect a resolving hematoma or seroma. Abscess is considered less likely. repeat US same and also collection in right lateral knee area. Await Ortho input f/u with ORTHO Pressure Ulcer Right elbow stage 3-4 wound care following f/u with wound care Discharging to [facility] Vital Signs: Date Time Temp Pulse Resp B/P (MAP) Pulse Ox O2 Delivery O2 Flow Rate FiO2 10/21/16 07:11 36.8 93 18 108/67 (81) 100 Room Air 10/21/16 01:00 Room Air 10/20/16 22:49 37.1 95 16 115/69 (84) 92 Room Air 10/20/16 18:25 36.7 92 102/45 (64) 10/20/16 18:15 94 100/51 10/20/16 18:00 92 100/48 10/20/16 17:45 94 119/50 10/20/16 17:30 100 96/47 10/20/16 17:15 92 99/39 10/20/16 17:00 93 101/39 10/20/16 16:45 93 104/50 10/20/16 16:30 92 115/48 10/20/16 16:20 Room Air 10/20/16 16:15 88 103/47 10/20/16 16:00 88 96/44 10/20/16 15:49 36.9 87 18 105/48 (67) 96 Room Air 10/20/16 15:45 88 111/43 10/20/16 15:30 87 105/48 10/20/16 15:15 85 110/31 10/20/16 15:00 86 94/53 10/20/16 14:45 101 135/72 10/20/16 14:30 36.6 84 134/65 (88)
[2016-10-21] MEDS ORDERED: PRD5 PO (11:50)
[2016-10-21] MEDS ORDERED: XFX550 PO (11:50)
[2016-10-21] MEDS ORDERED: LORA-741 PO (11:50)
[2016-10-21] MEDS ORDERED: MULT-890 PO (11:50)
[2016-10-21] MEDS ORDERED: PRT40 PO (11:50)
[2016-10-21] MEDS ORDERED: NUTRMIS PO (11:50)
--- NOTE | 2016-10-21 11:54 | Discharge Instructions ---
Discharge Instructions Date of Service Oct 21, 2016. Admission Reason for Admission: Right Shoulder Failed Hardware, Proximal Humerous Discharge Discharge Diagnosis / Problem: Right Shoulder Failed Hardware, Proximal Humerous s/p surgery. resp.faiure Discharge Goals Goal(s): Decrease discomfort, Improve function Activity Recommendations Activity Level: Assistance Required Therapies: Physical Therapy, Occupational Therapy . Additional Information Patient informed of condition: Yes Advance Directives: No DNR: No Level of Care: Acute Rehab Communicable Disease: No Prognosis: Stable Esposito Catheter: No Instructions / Follow-Up Instructions / Follow-Up FOLLOWUP WITH FAMILY DOCTOR IN ONE WEEK DALASIS PER NEPHROLOGY FOLLOWUP WITH GI IN 1-2 WEEKS FOR biliary cirrhosis FOLLOWUP WITH WOUND CLINIC FOR RIGHT ELBOW PRESSURE ULCER FOLLOWUP WITH ORTHOPEDICS FOR RECENT RIGHT SHOULDER SURGERY AND ALSO RIGHT KNEE SWELLING. LAB: CBC AND CMP IN ONE WEEK AND FOLLOW RESULTS WITH FAMILY DOCTOR. Current Hospital Diet Patient's current hospital diet: Regular Diet Discharge Diet Recommended Diet: Regular Diet Procedures Procedures Performed: Insertion of right internal jugular vein permcath, 19cm USN localization of internal jugular vein Fluoro for postioning Pending Studies Studies pending at discharge: no Physician Orders On Transfer Special Precautions: FALL AND ASPIRATION PRECAUTIONS Dressing Changes: DASILY FOR RIGHT ELBOW PRESSURE ULCER Vital Signs: EVERY 8HRS Laboratory Results Lipid Panel Test 10/09/16 05:24 Range/Units Triglycerides Level 0-150 mg/dl Medical Emergencies . Who to Call and When: Medical Emergencies: If at any time you feel your situation is an emergency, please call 911 immediately. . Non-Emergent Contact Non-Emergency issues call your: Primary Care Provider . . "Provider Documentation" section prepared by Shad Guerra. . Core Measure Problem Core Measures: None
--- NOTE | 2016-10-21 12:07 | Discharge Summary ---
Discharge Summary Date of Service Oct 21, 2016. Discharge Summary Admission Date: Sep 17, 2016 at 11:26 Discharge Date: Oct 21, 2016 Discharge Disposition: Rehab Principal Diagnosis: S/P RIGHT REVERSE TOTAL SHOULDER ARTHROPLASTY, REMOVAL OF DEEP HARDWARE RIGHT PROXIMAL HUMERUS, DEBRIDEMENT OF OLECRANON ULCER RIGHT ELBOW Acute hypoxic respiratory failure 09/20/16 secondary to fluid overload from IV fluids and albumin; Aspiration pneumonia Chronic kidney disease stage 3 with acute kidney injury - ATN vs hepatorenal syndrome.NOW ESRD HYPOTENSION Altered mental status/encephalopathy secondary to multifactorial delirium. ANEMIA THROMBOCYTOPENIA MALNUTRITION Secondary Diagnoses/Problems: (1) Ascites Status: Chronic (2) Biliary cirrhosis Status: Chronic (3) CKD (chronic kidney disease), stage III Status: Chronic (4) Esophageal varices Status: Chronic (5) History of paroxysmal atrial tachycardia Status: Chronic (6) Osteoarthritis Status: Chronic (7) Portal hypertension Status: Chronic Procedures: S/P RIGHT REVERSE TOTAL SHOULDER ARTHROPLASTY, REMOVAL OF DEEP HARDWARE RIGHT PROXIMAL HUMERUS, DEBRIDEMENT OF OLECRANON ULCER RIGHT ELBOW S/P TUNNEAL CATHETER S/P IJ LINE CT ABD/PELVIS LIVER US LOWER EXTREMITY ULTRASOUND ABDOMINAL US CHEST CT HEAD CT Consultations: ORTHOPEDICS NEPHROLOGY CRITICAL CARE GI HEME/ONCO PSYCHIATRY ID Medication Reconciliation New Medications: Lorazepam (Ativan) 0.5 Mg Tab 0.5 MG PO TID for Anxiety/Insomnia, #20 TAB Multiple Vitamin (Daily-Zia) 1 Tab Tab 1 TAB PO QAM, #30 TAB 2 Refills Nutritional Supplements (Boost Pudding) 1 Mis Mis 1 CUP PO BID17, #60 1 Refill Pantoprazole (Pantoprazole Sodium) 40 Mg Tab 40 MG PO QAM, #30 TAB 2 Refills Prednisone (Prednisone) 5 Mg Tab 5 MG PO DAILY, #30 TAB 2 Refills Rifaximin (Xifaxan) 550 Mg Tab 550 MG PO BID, #60 TAB 2 Refills Continued Medications: Cholecalciferol (Vitamin D3) 1,000 Unit Cap 1000 UNITS PO QAM Ferrous Gluconate (Ferrous Gluconate) 324 Mg Tab 324 MG PO TID, TAB Obeticholic Acid (Ocaliva) 5 Mg Tab 5 MG PO TUESDAY AM Sertraline (Zoloft) 50 Mg Tab 50 MG PO QAM, TAB Ursodiol (Ursodiol) 300 Mg Cap 600 MG PO BID Discontinued Medications: Furosemide (Furosemide) 20 Mg Tab 100 MG PO DAILY Take 5 pills every morning. Gabapentin (Neurontin) 300 Mg Cap 300 MG PO TID, CAP Hydroxyzine Hcl (Atarax) 50 Mg Tab 50 MG PO HS, TAB Prednisone (Prednisone) 1 Mg Tab 1 MG PO QAM, TAB Propranolol (Inderal) 10 Mg Tab 10 MG PO QAM, TAB Spironolactone (Aldactone) 25 Mg Tab 100 MG PO QAM, TAB Take 4 pills every morning. Trazodone Hcl (Trazodone) 100 Mg Tab 100 MG PO HS, TAB Admission Information HPI (per Admitting provider): 60-year-old female followed by Dr. Witt in [place] for primary care. History of paroxysmal atrial tachycardia, chronic kidney disease, biliary cirrhosis, and other problems as noted. Right reverse total shoulder arthroplasty, removal of deep hardware right proximal humerus, debridement of olecranon ulcer right elbow performed today by Dr. Fontenot. Doing well postoperatively. No chest pain. No cough or dyspnea. No nausea or vomiting. Postop pain well-controlled. . Physical Exam (per Admitting): General Appearance: no apparent distress Head: normocephalic, atraumatic Eyes: PERRL, EOMI, + abnormal sclerae exam (anicteric) ENT: hearing grossly normal, pharynx normal Neck: supple, no adenopathy, thyroid normal, no JVD, trachea midline Respiratory/Chest: lungs clear Cardiovascular: regular rate, rhythm, + systolic murmur (I/ systolic murmur at base) Abdomen/GI: normal bowel sounds, non tender, soft Extremities/Musculoskelatal: + pertinent finding (RUE immobilized; trace pretibial edema; TEDS and SCD's applied) Neurologic/Psych: + pertinent finding (somnolent postoperatively) Skin: warm/dry Hospital Course 60f was admitted for right shoulder pain 6 weeks post ORIF of right proximal humerus and S/P RIGHT REVERSE TOTAL SHOULDER ARTHROPLASTY, REMOVAL OF DEEP HARDWARE RIGHT PROXIMAL HUMERUS, DEBRIDEMENT OF OLECRANON ULCER RIGHT ELBOW. Post op course was complicated by volume overload and possible aspiration pneumonia with Resp failure requiring intubation. Her renal function worsened and requiring dialysis.Hepatorenal syndrome was considered. Has hx of Biliary cirrhosis. S/P Extubation, requiring midodrine to keep BP elevated. required prbc transfusion .Heme/onco was consulted for anemia and thought anemia mostly post op and possible gi bleeding.Gi and Nephrology following. May need intermediate project manager dialysis as per nephrology. Plan for [facility] when more stable.Bilirubin keep climbing but GI want to wait and see. Gi recommends f/u with liver/kidney transplant at [place].Poor oral intake was on tube feeds earlier but refusing Tube feeds now Completed iv abx for aspiration pneumonia and right elbow pressure ulcer. Nephrology made decision of ESRD and patient requires intermediate project manager dialysis.Restarted Zoloft. Awaiting ortho input on fluid collection in right knee area. called Gi service at [place] on 10/15/16 and to consider transplant if her condition improves. Planning for [facility] today. F/u cbc and cmp with pcp and GI. Hospital course so far: Hx of biliary cirrhosis with portal hypertension. GI and nutrition consulted. Bilirubin remains elevated ,worsening ,12.1 on 10/1116 ON rifaximin.Restarted obeticholic acid. Appreciate GI input Liver US on 10/03/16- no acute findings Monitor LFTs-LFTs are better but the bilirubin is going up PBC is gradually worsening called GI service at [place] on 10/15/16- patient needs to ambulate for transplant plan for rehab soon Chronic kidney disease stage 3 with acute kidney injury - ATN vs hepatorenal syndrome. Placement of hemodialysis catheter 09/27 and started on dialysis Management per Nephrology. ESRD as per nephrology Dialysis as per nephrology Acute hypoxic respiratory failure 09/20/16 secondary to fluid overload from IV fluids and albumin; Aspiration pneumonia Required intubation/mechanical ventilation. Improved with dialysis. Extubated 09/24/16. currently stable on room air Hypotension Stable on midodrine Continue same for now Altered mental status/encephalopathy secondary to multifactorial delirium. Head CT negative for acute event. Continue rifaximin for hepatic encephalopathy. stable currently Aspiration pneumonia Received IV vancomycin and piperacillin/tazobactam for possible aspiration pneumonia. Receiving fluconazole for Melissa albicans noted in sputum and bronchial washings. Loose stools - negative for C. difficile 09/27. CT chest / abdomen / pelvis did not show any apparent source of infection. ID consulted. WBC 12.8-normalized was on Primaxin and vanco #10 to complete 10 day course as per ID- stopped abx on 10/09/16 Anemia acute on chronic? Hemoglobin 9.5 on admission, fell as low as 5.6 on 09/29/16. No obvious GI bleeding, but stools heme +. CT abdomen and pelvis did not show any apparent retroperitoneal or intra- abdominal bleed. Seen by GI and Heme/onco POSSIBLY KNEE HEMATOMA Received 3 units of PRBC so far Hb Stable >9.0 Thrombocytopenia Platelet improved to 139 and then 96 ON 10/20/16 f/u labs. PER HEME/ONCO: No splenomegaly by imaging * No vit B 12 or folate deficiency * Not a consistent issue prior to hospitalization * May be element of marrow suppression with hospitalization for infection, liver dysfunction * F/U HEME/ONCO IF ANEMIA AND THROMBOCYTOPENIA PERSISTS GENERAL DEBILITATION Increase activity as tolerated. Malnutrition nutrition consult not liking boost received parenteral nutrition and discontinued refusing tube feeds Depression Appreciate Psychiatric evaluation restarted Zoloft Right Knee swelling US:: 10.7 x 2.5 x 4.5 cm complex right thigh fluid collection within the deep soft tissues. The sonographic appearance is nonspecific but this may reflect a resolving hematoma or seroma. Abscess is considered less likely. repeat US same and also collection in right lateral knee area. SEEN BY ORTHO TODAY 10/21/16- ITS STABLE AND TO F/U IN CLINIC IF IT WORSENS f/u with ORTHO Pressure Ulcer Right elbow stage 3-4 wound care following f/u with wound care Discharging to [facility] Total time spent on discharge = 45MINUTES This includes examination of the patient, discharge planning, medication reconciliation, and communication with other providers. Discharge Instructions Discharge Instructions Date of Service Oct 21, 2016. Admission Reason for Admission: Right Shoulder Failed Hardware, Proximal Humerous Discharge Discharge Diagnosis / Problem: Right Shoulder Failed Hardware, Proximal Humerous s/p surgery. resp.faiure Discharge Goals Goal(s): Decrease discomfort, Improve function Activity Recommendations Activity Level: Assistance Required Therapies: Physical Therapy, Occupational Therapy . Additional Information Patient informed of condition: Yes Advance Directives: No DNR: No Level of Care: Acute Rehab Communicable Disease: No Prognosis: Stable Esposito Catheter: No Instructions / Follow-Up Instructions / Follow-Up FOLLOWUP WITH FAMILY DOCTOR IN ONE WEEK DALASIS PER NEPHROLOGY FOLLOWUP WITH GI IN 1-2 WEEKS FOR biliary cirrhosis FOLLOWUP WITH WOUND CLINIC FOR RIGHT ELBOW PRESSURE ULCER FOLLOWUP WITH ORTHOPEDICS FOR RECENT RIGHT SHOULDER SURGERY AND ALSO RIGHT KNEE SWELLING. FOLLOWUP WITH HEME/ONCO FOR ANEMIA AND THROMBOCYTOPENIA LAB: CBC AND CMP IN ONE WEEK AND FOLLOW RESULTS WITH FAMILY DOCTOR. Current Hospital Diet Patient's current hospital diet: Regular Diet Discharge Diet Recommended Diet: Regular Diet Procedures Procedures Performed: Insertion of right internal jugular vein permcath, 19cm USN localization of internal jugular vein Fluoro for postioning Pending Studies Studies pending at discharge: no Physician Orders On Transfer Special Precautions: FALL AND ASPIRATION PRECAUTIONS Dressing Changes: DASILY FOR RIGHT ELBOW PRESSURE ULCER Vital Signs: EVERY 8HRS Laboratory Results Lipid Panel Test 10/09/16 05:24 Range/Units Triglycerides Level 0-150 mg/dl Medical Emergencies . Who to Call and When: Medical Emergencies: If at any time you feel your situation is an emergency, please call 911 immediately. . Non-Emergent Contact Non-Emergency issues call your: Primary Care Provider . . "Provider Documentation" section prepared by Shad Guerra. . Core Measure Problem Core Measures: None
[2016-10-21] MEDS ORDERED: MIDO5TAB PO (12:12)
--- NOTE | 2016-10-21 13:57 | ORTHOPEDIC CONSULTATION ---
DATE OF CONSULTATION: 10/21/2016 DATE OF CONSULTATION: 10/21/2016 CHIEF COMPLAINT: Right knee swelling. HISTORY OF PRESENT ILLNESS: The patient has been here in the hospital following complicated shoulder operation and complicated postoperative medical difficulties. She has been getting ready to go to [facility] today and we were consulted for right knee pain. PHYSICAL EXAMINATION: GENERAL: Reveals subcutaneous fluid which is fluctuant in left leg. The patient can do a straight leg raise. No pain on log rolling of the hip. The patient had an ultrasound of the thigh which shows a stable seroma about the right knee and thigh. ASSESSMENT: Stable seroma right knee and thigh. Proceed with transfer to [facility] and rehabilitation. Seroma should resolve on its own. She will return here or followup as an outpatient.
--- NOTE | 2016-10-21 15:02 | Nephrology Progress Note ---
Nephrology Progress Note Date of Service: Oct 21, 2016. Subjective 60 yo female with biliary cirrhosis with anuric ileana/atn vs HRS who required intubation, extubated 09/23. on daily dialysis 09/20-09/25; 09/27-. on intermittent HD ever since; evaluated 10/13-10/15 for renal recovery but remains oliguric. Tolerated dialysis well yesterday. Eager to be discharged today. Denies any nausea, vomiting, chest pain, or SOB. continues to be depressed over condition but improved mood. does not note any increase in urine output. Objective Date Time Temp Pulse Resp B/P (MAP) Pulse Ox O2 Delivery O2 Flow Rate FiO2 10/21/16 13:54 36.9 90 20 93 Room Air 10/21/16 13:18 36.9 90 20 109/67 (81) 93 Room Air 10/21/16 13:00 36.8 102 19 119/61 (80) 96 Room Air 10/21/16 12:42 36.9 90 17 105/65 (78) 93 Room Air 10/21/16 12:28 37.2 89 20 87/54 (65) 93 Room Air 10/21/16 12:03 120/71 (87) 10/21/16 08:00 Room Air 10/21/16 07:11 36.8 93 18 108/67 (81) 100 Room Air 10/21/16 01:00 Room Air 10/20/16 22:49 37.1 95 16 115/69 (84) 92 Room Air 10/20/16 18:25 36.7 92 102/45 (64) 10/20/16 18:15 94 100/51 10/20/16 18:00 92 100/48 10/20/16 17:45 94 119/50 10/20/16 17:30 100 96/47 10/20/16 17:15 92 99/39 10/20/16 17:00 93 101/39 10/20/16 16:45 93 104/50 10/20/16 16:30 92 115/48 10/20/16 16:20 Room Air 10/20/16 16:15 88 103/47 10/20/16 16:00 88 96/44 10/20/16 15:49 36.9 87 18 105/48 (67) 96 Room Air 10/20/16 15:45 88 111/43 9/13/17 15:30 87 105/48 10/20/16 15:15 85 110/31 10/20/16 15:00 86 94/53 Physical Exam: General-on ra, slight psychomotor delay Head: Normocephalic, No masses, lesions, tenderness, or abnormalities ENT-mmm, scleral icterus. Neck-supple, no adenopathy Lungs-improved air entry BL but still quite diminished Heart-rrr Abdomen-bs+/soft nt/nd Extremities-no edema b/l le, small lesion on left knee, and b/l feet and rear; edema in R arm Neuro-oriented to self and place, fluent/appropriate Current Inpatient Medications Medications (Trade) Dose Ordered Sig/Michael Route Start Time Stop Time Status Last Admin Dose Admin Midodrine (Proamatine Tab) 5 mg TID@0800,1200,1800 PO 09/19/16 18:00 11/17/16 17:59 10/21/16 12:04 5 MG Rifaximin (Xifaxan Tab) 550 mg BID PO 09/22/16 21:00 10/22/16 20:59 10/21/16 08:30 550 MG Multivitamins (Multivitamin Tab) 1 tab QAM PO 09/25/16 09:00 10/25/16 08:59 10/21/16 08:31 1 TAB Heparin Sodium (Porcine) (Heparin 10 Unit/ ml 5 ml Flush) 5 ml PRN PRN FLUSH 09/25/16 02:00 10/25/16 01:59 10/20/16 20:40 5 ML Metoclopramide HCl (Reglan Inj) 5 mg Q6H PRN IV 09/27/16 12:45 10/25/16 12:44 10/20/16 20:38 5 MG Prednisone (PredniSONE TAB) 5 mg DAILY PO 09/28/16 09:00 10/28/16 08:59 10/21/16 08:30 5 MG Ursodiol (Actigall Cap) 600 mg BID PO 09/28/16 21:00 10/28/16 20:59 10/21/16 08:30 600 MG Pantoprazole Sodium (Protonix Tab) 40 mg QAM PO 09/29/16 09:00 10/29/16 08:59 10/21/16 08:31 40 MG Non-Formulary Medication (Obeticholic Acid (Ocaliva)) 5 mg Sa@0900 PO 10/02/16 14:00 11/01/16 13:59 10/09/16 08:10 5 MG Enteral Nutritional Formula (Boost Pudding) 1 cup BID17 PO 10/05/16 17:00 11/04/16 16:59 10/18/16 09:25 1 CUP Lorazepam 0.25 mg/ Syringe 0.25 ml @ 0.5 mls/min Q6 PRN IV 10/15/16 12:15 11/14/16 12:14 10/20/16 20:38 0.5 MLS/MIN Heparin Sodium (Porcine) (Heparin Sq 5000 Unit/0.5ml) 5,000 unit Q12 SQ 10/15/16 21:00 11/14/16 20:59 10/16/16 09:30 5,000 UNIT Sertraline HCl (Zoloft Tab) 50 mg QAM PO 10/20/16 09:00 11/19/16 08:59 10/21/16 08:31 50 MG Assessment & Plan ESRD: ileana/atn vs HRS but for now will continue HD and monitor for renal recovery. No need for emergent dialysis today. potassium 3.5 and volume status acceptable. plan to continue HD as outpt. anemia of chronic disease: will continue EPO with goal to keep hgb between 10- 11. This patient was discussed with Dr. Jones. Thank you for the opportunity to participate in this patient's care. Appreciate the Consult. ------ PA note reviewed; agree w/ plan as above for this 60 y/o F w/ PBC and advanced liver dz, ESRD who is for routine dialysis on 10/22; today no dialysis. D/c today to [facility]. Brennon Jones MD PhD
[2016-10-25] MEDS ORDERED: ARNI60 SC (14:31)
[2016-10-25] MEDS ORDERED: DOCU100C31 PO ×2 (14:32→14:34)
[2016-10-25] MEDS ORDERED: DLCS PR (14:33)
[2016-10-25] MEDS ORDERED: LORA-741 PO (14:34)
[2016-10-25] MEDS ORDERED: MOMLX PO (14:35)
[2016-10-25] MEDS ORDERED: ONDA4TAB46 PO (14:36)
[2016-10-25] MEDS ORDERED: POLY1POW2 PO (14:36)
[2016-10-25] MEDS ORDERED: SODI650T8 RE (14:37)
[2016-11-03] MEDS ORDERED: CLC/300 PO (11:26)
== END 2016-10-21 15:30 | DRG 463 ==
LOC: C.ACU 09:24 → C.3E 11:26 → ENRESERV 17:06 → C.2E 09-19 16:41 → C.MSICU 09-20 15:43 → ENRESERV 10-01 12:12 → EDBEDREQ 10-01 12:12 → C.2E 10-01 12:27 → EDBEDREQ 10-04 14:09 → EDBEDREQSVC 10-04 14:38 → ENRESERV 10-04 14:53 → C.3E 10-04 15:29
PROVIDERS: ADMIT Orthopaedic Surgery; ATTEND Internal Medicine
PROC: 0JBG0ZZ Excision of Right Lower Arm Subcutaneous Tissue and Fascia, Open Approach (ICD-10-PCS; principal; 2016-09-17 12:00)
PROC: 0RRJ00Z Replacement of Right Shoulder Joint with Reverse Ball and Socket Synthetic Substitute, Open Approach (ICD-10-PCS; principal; 2016-09-17 12:00)
PROC: 0BJ08ZZ Inspection of Tracheobronchial Tree, Via Natural or Artificial Opening Endoscopic (ICD-10-PCS; 2016-09-20)
PROC: 0BH13EZ Insertion of Endotracheal Airway into Trachea, Percutaneous Approach (ICD-10-PCS; 2016-09-20)
DX: M19.011 Primary osteoarthritis, right shoulder (principal); L89.014 Pressure ulcer of right elbow, stage 4; N17.0 Acute kidney failure with tubular necrosis; J96.01 Acute respiratory failure with hypoxia; I50.31 Acute diastolic (congestive) heart failure; J96.02 Acute respiratory failure with hypercapnia; K76.7 Hepatorenal syndrome; J69.0 Pneumonitis due to inhalation of food and vomit; S42.291A Other displaced fracture of upper end of right humerus, initial encounter for closed fracture; I47.1 Supraventricular tachycardia; E46 Unspecified protein-calorie malnutrition; N18.3 Chronic kidney disease, stage 3 (moderate); D72.829 Elevated white blood cell count, unspecified; K74.5 Biliary cirrhosis, unspecified; I95.9 Hypotension, unspecified; D64.9 Anemia, unspecified; D69.6 Thrombocytopenia, unspecified; Z79.52 Long term (current) use of systemic steroids; Z82.49 Family history of ischemic heart disease and other diseases of the circulatory system; W19.XXXA Unspecified fall, initial encounter

== ENCOUNTER 2016-11-04 08:33 | Inpatient (IN) | payer OTHER ==
[~2016-11-04] VITALS: Ht 160 cm; Wt 80.8 kg
[~2016-11-04 08:33] MED LIST changes: +ARNI60 SC; -ATROPINE SULFATE 0.1 MG/ML 5ML SYR IV PRN; -CEFAZOLIN 2000 MG/60 ML D5W 60 ML IV SCH; +CLC/300 PO; -DEXAMETHASONE 4 MG TAB PO SCH; +DLCS PR; +DOCU100C31 PO; -FENTANYL CITRATE INJ 50 MCG/1 ML 2 ML VIAL IV PRN; -FURO-85 PO; -GABA-113 PO; -HYDR-3126 PO; -HYDROmorphone INJ 1 MG/ML SYR IV PRN; -LACTATED RINGER'S 1000ML IV SCH; +LORA-741 PO; +MIDO5TAB PO; +MOMLX PO; +MULT-890 PO; +ONDA4TAB46 PO; -ONDANSETRON INJ 2 MG/ML 2 ML VIAL IV PRN; +POLY1POW2 PO; -PRD/1 PO; +PRD5 PO; -PROMETHAZINE HCL INJ 12.5 MG in SODIUM CHLORIDE 0.9% 50ML 50 ML IV PRN; -PROP10TA7 PO; +PRT40 PO; -ROPIVACAINE 0.5% 5 MG/ML 30 ML VIAL ONE; -ROPIVACAINE 5MG/ML 30 ML 150 MG, BUPIVACAINE/EPINEPHR 0.5% MPF 30 ML, DEXAMETHASONE INJ... INFIL SCH; +SODI650T8 RE; -SODIUM CHLORIDE 0.9% 1000ML 1,000 ML IV SCH; -SPIR25TA PO; +XFX550 PO
--- NOTE | 2016-11-04 09:18 | DIAGNOSTIC IMAGING REPORT ---
CHEST ONE VIEW PORTABLE HISTORY: 61 years-old Female Evaluate Fever/Sepsis acute fever with sepsis. COMPARISON: Chest radiograph 10/14/2016 TECHNIQUE: Portable upright AP view of the chest FINDINGS: Cardiac silhouette is again moderately enlarged. There is atherosclerosis of the aorta. Dual lumen right internal jugular hemodialysis catheter is again noted in stable positioning with distal tip terminating in the region of the right atrium. There is no pneumothorax or large pleural effusion identified. There is chronic blunting of the right costophrenic angle with persistent right hemidiaphragmatic elevation and linear subsegmental bibasilar opacities suggesting atelectasis. Reverse right shoulder arthroplasty. There are ORIF changes of the left shoulder. The bones are osteopenic. Multilevel degenerative changes are seen throughout the spine. IMPRESSION: 1. Cardiomegaly without acute cardiopulmonary process. 2. Unchanged right hemidiaphragm elevation with linear subsegmental bibasilar opacities suggesting atelectasis. The above report was generated using voice recognition software. It may contain grammatical, syntax or spelling errors. Electronically signed by: Vikash Ayala M.D. 11/04/2016 9:16 AM Dictated Date/Time: 11/04/2016 9:15 AM
[2016-11-04 09:56] LABS: HEMATOCRIT 30.7 % (37-47); MEAN CELL VOLUME 89.5 fL (80-100); MEAN CORPUSCULAR HEMOGLOBIN 29.2 pg (25-34); MEAN CORPUSCULAR HGB CONC 32.6 g/dl (32-36); RED BLOOD COUNT 3.43 M/uL (4.2-5.4); WHITE BLOOD COUNT 13.56 K/uL (4.8-10.8)
[2016-11-04 09:59] LABS: MEAN PLATELET VOLUME 11.1 fL (7.4-10.4); PLATELET COUNT 79 K/uL (130-400)
[2016-11-04 09:59] LABS: INR 1.5 (0.9-1.1); PARTIAL THROMBOPLASTIN RATIO 1.5; PROTHROMBIN TIME (PATIENT) 16.2 SECONDS (9.0-12.0)
--- NOTE | 2016-11-04 10:07 | DIAGNOSTIC IMAGING REPORT ---
HEAD WITHOUT CONTRAST (CT) CLINICAL HISTORY: 61 years-old Female presenting with Evaluate Fever/Sepsis. TECHNIQUE: Multidetector CT imaging of the head was performed without the use of intravenous contrast. IV contrast: None. A dose lowering technique was used consistent with the principles of ALARA (as low as reasonably achievable). COMPARISON: 09/21/2016. CT DOSE (mGy.cm): The estimated cumulative dose is 729.78 mGycm. FINDINGS: Sponge Fisherman topogram: Unremarkable. Ventricles and sulci normal in size. Brain parenchyma normal in appearance with preserved flores-white differentiation. No mass effect or midline shift. No hemorrhage or acute territorial infarct. No extra-axial fluid collection. Paranasal sinuses and mastoid air cells clear. Calvarium intact. IMPRESSION: 1. No acute intracranial pathology. Electronically signed by: Luis A Hamilton M.D. 11/04/2016 10:06 AM Dictated Date/Time: 11/04/2016 10:03 AM
[2016-11-04 10:19] LABS: ANISOCYTOSIS PRESENT; BASO % 0.1 %; BASO ABS # 0.01 K/uL (0-0.2); COMPLETE YES; EOS % 1.1 %; IG% 0.3 %; LYMPH % 13.2 %; LYMPH ABS # 1.79 K/uL (1.2-3.4); MONO % 7.2 %; NEUT % 78.1 %; TARGET CELLS 1+
[2016-11-04 10:26] LABS: URINE APPEARANCE CLOUDY (CLEAR); URINE COLOR DK YELLOW; URINE EPITHELIAL CELL AUTO 0-5 /lpf (0-5); URINE NITRITE POS (NEG); URINE SPECIFIC GRAVITY 1.015 (1.000-1.030); UROBILINOGEN NEG (NEG)
[2016-11-04] MEDS ORDERED: HYDR2TAB48 PO (10:31)
[2016-11-04 10:35] LABS: URINE BILIRUBIN 3+ (NEG)
[2016-11-04 10:36] LABS: MANUAL MICROSCOPIC REQUIRED? NO; REVIEW REQ? YES
[2016-11-04] MEDS ORDERED: SENN-65 PO (10:36)
[2016-11-04 11:06] LABS: BENZODIAZEPINE, URINE NEG (NEG); COCAINE,URINE NEG (NEG); PHENCYCLIDINE, URINE NEG (NEG)
[2016-11-04 11:07] LABS: ZZURINE CULT IF INDIC CATH YES
[2016-11-04 11:36] LABS: ALLEN TEST POS (POS); ARTERIAL BLD GAS O2 SATURATION 93.8 % (90-95); ARTERIAL BLOOD GAS BASE EXCESS 5.2 mEq/L (-9-1.8); ARTERIAL BLOOD GAS HCO3 30 mmol/L (19-24); ARTERIAL BLOOD GAS PO2 81 mm/Hg (80-95); ARTERIAL BLOOD GAS pH 7.46 (7.35-7.45); O2 ADMINISTRATION 2L
[2016-11-04 11:58] LABS: ALKALINE PHOSPHATASE 628 U/L (45-117); ALT/SGPT 37 U/L (12-78); AST/SGOT 77 U/L (15-37); BLOOD UREA NITROGEN 25 mg/dl (7-18); C-REACTIVE PROTEIN 7.45 mg/dl (0-0.29); CALCIUM 10.1 mg/dl (8.5-10.1); CARBON DIOXIDE 26 mmol/L (21-32); CHLORIDE 101 mmol/L (98-107); CKMB/CK RATIO 5.4 (0-3.0); GLUCOSE 72 mg/dl (70-99); MAGNESIUM 2.4 mg/dl (1.8-2.4); POTASSIUM 3.7 mmol/L (3.5-5.1); SODIUM 137 mmol/L (136-145)
[2016-11-04] MEDS ORDERED: HEPA1INJ IV ×2 (12:00)
[2016-11-04] MEDS ORDERED: HEPA1INJ IV. (12:00)
[2016-11-04] MEDS ORDERED: CEFTRIAXONE SOD INJ 1 GM ADDVIAL IV STA (12:53)
--- NOTE | 2016-11-04 13:34 | EMERGENCY ROOM VISIT NOTE ---
History Report prepared by Laney: Lilia Quinn Under the Supervision of: Dr. Zack Tomlin D.O. 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 The patient was recently in the hospital from September 18 to October 20. She had right shoulder surgery and was discharged to [facility] for rehab. She was been having frequent incontinent episodes of stool and urine. She has been having loose stools. Stool cultures have been sent and are pending. Today the patient had increased jaundice and lower extremity edema. She was brought to the ED by ambulance for further evaluation. Per EMS the patient was confused en route and did not know where she was when she was in the ambulance. Her oxygen saturation was in the 80s and improved on NC O2. The patient had dialysis yesterday. She has a wound VAC to the right elbow. 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 Review of Systems See HPI for pertinent positives & negatives. A total of 10 systems reviewed and were otherwise negative. Past Medical & Surgical Medical Problems: (1) Ascites (2) Biliary cirrhosis (3) Chronic pericarditis (4) Chronic steroid use (5) CKD (chronic kidney disease), stage III (6) Esophageal varices (7) Fluid overload (8) History of paroxysmal atrial tachycardia (9) History of PSVT (paroxysmal supraventricular tachycardia) (10) Leukocytosis (11) Major depressive disorder, recurrent episode with anxious distress (12) Osteoarthritis (13) Portal hypertension (14) Respiratory failure with hypercapnia Surgical Problems: (1) Status post cardiac catheterization (2) Status post catheter ablation for SVT (3) Status post reverse total arthroplasty of right shoulder (4) Status post transjugular intrahepatic portosystemic shunt Family History Asthma MOTHER Diabetes mellitus FATHER Heart disease FATHER MOTHER Social History Smoking Status: Never Smoker Alcohol Use: none Drug Use: none Marital Status: Occupation Status: disabled Current/Historical Medications Scheduled Cholecalciferol (Vitamin D3), 1,000 UNITS PO QAM Clindamycin HCl (Clindamycin HCl), 1 CAP PO TID Darbepoetin (Aranesp Albumin Free), 0.3 ML SC WK Docusate Sodium (Docusate Sodium), 1 CAP PO BID Ferrous Gluconate (Ferrous Gluconate), 324 MG PO TID Heparin Sodium (Porcine) (Heparin Sodium), 1,000 IV. 3XWK Heparin Sodium (Porcine) (Heparin Sodium), 400 IV 3XWK Heparin Sodium (Porcine) (Heparin Sodium), 1 DOSE IV UD Midodrine Hcl (Midodrine Hcl), 5 MG PO TID Multiple Vitamin (Daily-Zia), 1 TAB PO QAM Obeticholic Acid (Ocaliva), 5 MG PO tuesday Pantoprazole (Pantoprazole Sodium), 40 MG PO QAM Prednisone (Prednisone), 5 MG PO DAILY Rifaximin (Xifaxan), 550 MG PO BID Senna/Docusate Sod (Senokot S), 1 TAB PO qlunch Sertraline (Zoloft), 50 MG PO QAM Ursodiol (Ursodiol), 600 MG PO BID Scheduled PRN Bisacodyl (Bisac-Evac), 10 MG UT DAILY PRN for Constipation Hydromorphone Hcl (Dilaudid), 2 MG PO Q4H PRN for Pain Lorazepam (Ativan), 0.5 MG PO TID PRN for Anxiety Magnesium Hydroxide (Milk of Magnesia), 30 ML PO DAILY PRN for Constipation Ondansetron Hcl (Zofran), 4 MG PO Q4 PRN for Nausea Polyethylene Glycol 3350 (Bulk (Polyethylene Glycol 3350), 17 GM PO DAILY PRN for Constipation Allergies Coded Allergies: Budesonide (Verified Allergy, Intermediate, FACIAL SWELLING, 11/04/16) PER RECORDS Mycophenolate (Verified Allergy, Intermediate, FACIAL SWELLING, 11/04/16) PER RECORDS Latex (Verified Allergy, Mild, RASH-CONTACT, 11/04/16) Acetaminophen (Verified Adverse Reaction, Unknown, "LIVER DISEASE", ) PER RECORDS Pseudoephedrine (Verified Adverse Reaction, Unknown, TACHYCARDIA, 11/04/16) PER RECORDS Physical Exam Vital Signs Date Time Temp Pulse Resp B/P (MAP) Pulse Ox O2 Delivery O2 Flow Rate FiO2 11/04/16 13:12 79 14 112/54 95 Nasal Cannula 2.0 11/04/16 13:02 79 11/04/16 12:09 79 20 118/51 96 Nasal Cannula 2.0 11/04/16 10:14 77 20 125/59 97 Nasal Cannula 2.0 11/04/16 10:13 36.4 11/04/16 10:12 89 Room Air 11/04/16 08:36 77 11/04/16 08:35 98 Nasal Cannula 2.0 11/04/16 08:35 Nasal Cannula 2.0 11/04/16 08:35 36.6 75 20 118/72 98 Nasal Cannula 2.0 Physical Exam CONSTITUTIONAL/VITAL SIGNS: Reviewed / noted above. GENERAL: Non-toxic in appearance. INTEGUMENTARY: Warm, dry, positive jaundice. HEAD: Normocephalic. EYES: Positive scleral icterus, no trauma. ENT/OROPHARYNX: clear and moist. LYMPHADENOPATHY/NECK: Is supple without lymphadenopathy or meningismus. RESPIRATORY: Lungs sounds diminished but clear, moist cough. CARDIOVASCULAR: Regular rate and rhythm. CHEST: Dialysis port in right chest wall. GI/ABDOMEN: Soft and nontender. No organomegaly or pulsatile mass. No rebound or guarding. Normal bowel sounds. EXTREMITIES: Warm and well perfused. Wound VAC noted to the right arm. Positive bilateral pitting edema. BACK: No CVA tenderness. NEUROLOGICAL: Pt awake and alert, confused to place and time, generalized weakness. No focal deficits. PSYCHIATRIC: normal affect. MUSCULOSKELETAL: Normally developed with good muscle tone. Medical Decision & Procedures ER Provider Diagnostic Interpretation: Radiology results as stated below per my review and radiologist interpretation: HEAD WITHOUT CONTRAST (CT) CLINICAL HISTORY: 61 years-old Female presenting with Evaluate Fever/Sepsis. TECHNIQUE: Multidetector CT imaging of the head was performed without the use of intravenous contrast. IV contrast: None. A dose lowering technique was used consistent with the principles of ALARA (as low as reasonably achievable). COMPARISON: 09/21/2016. CT DOSE (mGy.cm): The estimated cumulative dose is 729.78 mGycm. FINDINGS: Fiberglass Product Tester topogram: Unremarkable. Ventricles and sulci normal in size. Brain parenchyma normal in appearance with preserved flores-white differentiation. No mass effect or midline shift. No hemorrhage or acute territorial infarct. No extra-axial fluid collection. Paranasal sinuses and mastoid air cells clear. Calvarium intact. IMPRESSION: 1. No acute intracranial pathology. Electronically signed by: Luis A Hamilton M.D. 11/04/2016 10:06 AM Dictated Date/Time: 11/04/2016 10:03 AM CHEST ONE VIEW PORTABLE HISTORY: 61 years-old Female Evaluate Fever/Sepsis acute fever with sepsis. COMPARISON: Chest radiograph 10/14/2016 TECHNIQUE: Portable upright AP view of the chest FINDINGS: Cardiac silhouette is again moderately enlarged. There is atherosclerosis of the aorta. Dual lumen right internal jugular hemodialysis catheter is again noted in stable positioning with distal tip terminating in the region of the right atrium. There is no pneumothorax or large pleural effusion identified. There is chronic blunting of the right costophrenic angle with persistent right hemidiaphragmatic elevation and linear subsegmental bibasilar opacities suggesting atelectasis. Reverse right shoulder arthroplasty. There are ORIF changes of the left shoulder. The bones are osteopenic. Multilevel degenerative changes are seen throughout the spine. IMPRESSION: 1. Cardiomegaly without acute cardiopulmonary process. 2. Unchanged right hemidiaphragm elevation with linear subsegmental bibasilar opacities suggesting atelectasis. The above report was generated using voice recognition software. It may contain grammatical, syntax or spelling errors. Electronically signed by: Vikash Ayala M.D. 11/04/2016 9:16 AM Dictated Date/Time: 11/04/2016 9:15 AM Laboratory Results 11/04/16 09:25 Red Blood Count 3.43, Mean Corpuscular Volume 89.5, Mean Corpuscular Hemoglobin 29.2, Mean Corpuscular Hemoglobin Concent 32.6, Mean Platelet Volume 11.1, Neutrophils (%) (Auto) 78.1, Lymphocytes (%) (Auto) 13.2, Monocytes (%) (Auto) 7.2, Eosinophils (%) (Auto) 1.1, Basophils (%) (Auto) 0.1, Neutrophils # (Auto) 10.60, Lymphocytes # (Auto) 1.79, Monocytes # (Auto) 0.97, Eosinophils # (Auto) 0.15, Basophils # (Auto) 0.01 11/04/16 10:58 Test 11/04/16 08:56 9/28/17 09:25 11/04/16 10:10 11/04/16 10:58 Prothrombin Time 16.2 SECONDS (9.0-12.0) Prothromb Time International Ratio 1.5 (0.9-1.1) Activated Partial Thromboplast Time 39.1 SECONDS (21.0-31.0) Partial Thromboplastin Ratio 1.5 White Blood Count 13.56 K/uL (4.8-10.8) Red Blood Count 3.43 M/uL (4.2-5.4) Hemoglobin 10.0 g/dL (12.0-16.0) Hematocrit 30.7 % (37-47) Mean Corpuscular Volume 89.5 fL (80-100) Mean Corpuscular Hemoglobin 29.2 pg (25-34) Mean Corpuscular Hemoglobin Concent 32.6 g/dl (32-36) Platelet Count 79 K/uL (130-400) Mean Platelet Volume 11.1 fL (7.4-10.4) Neutrophils (%) (Auto) 78.1 % Lymphocytes (%) (Auto) 13.2 % Monocytes (%) (Auto) 7.2 % Eosinophils (%) (Auto) 1.1 % Basophils (%) (Auto) 0.1 % Neutrophils # (Auto) 10.60 K/uL (1.4-6.5) Lymphocytes # (Auto) 1.79 K/uL (1.2-3.4) Monocytes # (Auto) 0.97 K/uL (0.11-0.59) Eosinophils # (Auto) 0.15 K/uL (0-0.5) Basophils # (Auto) 0.01 K/uL (0-0.2) RDW Standard Deviation 63.2 fL (36.4-46.3) RDW Coefficient of Variation 19.4 % (11.5-14.5) Immature Granulocyte % (Auto) 0.3 % Immature Granulocyte # (Auto) 0.04 K/uL (0.00-0.02) Anisocytosis PRESENT Target Cells 1+ Urine Color DK YELLOW Urine Appearance CLOUDY (CLEAR) Urine pH 6.0 (4.5-7.5) Urine Specific Capron 1.015 (1.000-1.030) Urine Protein 1+ (NEG) Urine Glucose (UA) NEG (NEG) Urine Ketones NEG (NEG) Urine Occult Blood 1+ (NEG) Urine Nitrite POS (NEG) Urine Bilirubin 3+ (NEG) Urine Urobilinogen NEG (NEG) Urine Leukocyte Esterase LARGE (NEG) Urine WBC (Auto) 1-5 /hpf (0-5) Urine RBC (Auto) 0-4 /hpf (0-4) Urine Hyaline Casts (Auto) 0 /lpf (0-5) Urine Epithelial Cells (Auto) 0-5 /lpf (0-5) Urine Bacteria (Auto) 4+ (NEG) Urine Crystals (NONE PRSENT) Urine Yeast (Auto) BUDDING (NONE PRSENT) Urine Opiates Screen NEG (NEG) Urine Methadone, Qualitative NEG (NEG) Urine Barbiturates NEG (NEG) Urine Phencyclidine (PCP) Level NEG (NEG) Ur Amphetamine/Methamphetamine NEG (NEG) MDMA (Ecstasy) Screen NEG (NEG) Urine Benzodiazepines Screen NEG (NEG) Urine Cocaine Metabolite NEG (NEG) Urine Marijuana (THC) NEG (NEG) Erythrocyte Sedimentation Rate 15 mm/hr (0-21) Anion Gap 10.0 mmol/L (3-11) Estimated GFR () 23.6 Estimated GFR (Non- 20.4 BUN/Creatinine Ratio 10.0 (10-20) Calcium Level 10.1 mg/dl (8.5-10.1) Magnesium Level 2.4 mg/dl (1.8-2.4) Total Bilirubin 14.9 mg/dl (0.2-1) Direct Bilirubin 11.7 mg/dl (0-0.2) Aspartate Amino Transf (AST/SGOT) 77 U/L (15-37) Alanine Aminotransferase (ALT/SGPT) 37 U/L (12-78) Alkaline Phosphatase 628 U/L (45-117) Ammonia < 10.0 umol/L (11-32) Total Creatine Kinase 24 U/L (26-192) Creatine Kinase MB 1.3 ng/ml (0.5-3.6) Creatine Kinase MB Ratio 5.4 (0-3.0) Troponin I < 0.015 ng/ml (0-0.045) C-Reactive Protein 7.45 mg/dl (0-0.29) Total Protein 5.5 gm/dl (6.4-8.2) Albumin 2.2 gm/dl (3.4-5.0) Lipase 83 U/L (73-393) Thyroid Stimulating Hormone (TSH) 8.280 uIu/ml (0.300-4.500) Test 11/04/16 11:20 Arterial Blood pH 7.46 (7.35-7.45) Arterial Blood Partial Pressure CO2 43 mmHg (35-46) Arterial Blood Partial Pressure O2 81 mm/Hg (80-95) Arterial Blood HCO3 30 mmol/L (19-24) Arterial Blood Oxygen Saturation 93.8 % (90-95) Arterial Blood Base Excess 5.2 mEq/L (-9-1.8) Arterial Blood Gas Delivery 2L Amado Test POS (POS) Lactic Acid Level 1.2 mmol/L (0.4-2.0) Ethyl Alcohol mg/dL < 3.0 mg/dl (0-3) Laboratory results as stated above per my review. Medications Administered Medications (Trade) Dose Ordered Sig/Michael Route Start Time Stop Time Status Last Admin Dose Admin Ceftriaxone Sodium (Rocephin Inj) 1 gm NOW STAT IV 11/04/16 12:53 11/04/16 12:54 DC 11/04/16 13:12 1 GM ECG Indication: altered mental status Rate (beats per minute): 76 Rhythm: normal sinus Findings: no acute ischemic change, no ectopy ED Course 0855: Previous medical records were reviewed. The patient was evaluated in room B6. A complete history and physical examination was performed. 1253: Rocephin 1 gm IV 1256: I spoke with Dr. Manriquez. We discussed the patients case. [facility]. 1259: I reassessed the patient at this time. She is feeling better and resting comfortably. I discussed the results and treatment plan with the patient. I answered all pertaining questions that she had. She expressed understanding and verbalized agreement. Medical Decision Differentials include: Acute coronary syndrome, myocardial infarction, CVA, TIA , anemia, infection, pneumonia, UTI, pyelonephritis, poor nutrition, dehydration , electrolyte disturbance, and hypoglycemia. This is a 61-year-old female who presents to the ED with a chief complaint of decreased oxygen saturations, confusion, increased jaundice, pedal edema. The patient is currently at [facility]. She has liver failure and dialysis-dependent renal failure and had dialysis last yesterday. The patient is in no acute distress. She is confused to place and time. According to , she is a little more fatigued and tired and slightly more confused than baseline. A chest x-ray was negative for acute disease. CT scan of the brain was negative for acute disease. Hemoglobin is 10, white blood cell count was 13. INR is 1.5. ABG reveals a normal acid base status with normal ventilation and oxygenation. BUN is 25, creatinine is 2.5. Troponin is negative. Tox screen was negative. CRP is elevated. Total bilirubin is 14.9. Urine suggest infection. The patient will be seen by the hospitalist for further evaluation and care. The patient was treated with IV Rocephin. Medication Reconcilliation Current Medication List: was personally reviewed by me Blood Pressure Screening Patient's blood pressure: Normal blood pressure Consults Time Called: 1254 Consulting Physician: Dr. Manriquez Returned Call: [phone] Manriquez. We discussed the patients case. The patient will be evaluated by the [facility] for further management. Impression Primary Impression: UTI (urinary tract infection) Additional Impression: Confusion Scribe Attestation The scribe's documentation has been prepared under my direction and personally reviewed by me in its entirety. I confirm that the note above accurately reflects all work, treatment, procedures, and medical decision making performed by me. Departure Information Dispostion Being Evaluated By Hospitalist Referrals Seth Witt D.O. (PCP) Patient Instructions My [facility] Problem Qualifiers Primary Impression: UTI (urinary tract infection) Urinary tract infection type: site unspecified Hematuria presence: with hematuria Qualified Codes: N39.0 - Urinary tract infection, site not specified ; R31.9 - Hematuria, unspecified
[2016-11-04] MEDS ORDERED: PIPERACILL/TAZOBAC CONSULT ACTIVE PRN (15:24)
[2016-11-04 15:29] VITALS: BP 145/64; PULSE 83; Ht 160 cm; Wt 80.8 kg
--- NOTE | 2016-11-04 15:32 | History and Physical ---
History & Physical Date & Time of Service: Nov 04, 2016 at 15:07 Chief Complaint: AMS Primary Care Physician: Seth Witt D.O. History of Present Illness Source: spouse, clinic records, hospital records 61 year old female with history of recent Right Shoulder Arthroplasty in 09/2016 , ESRD on HD, Primary Biliary Cirrhosis, Right Elbow Decubitus Ulcer with MRSA infection serina wound vac presenting with altered mental status. Follows with Dr. Witt for PCP, Irvin for Nephro, Dr. Yeung and Dr. Jha for MRSA infection of infected R elbow decubitus ulcer presenting with altered mental status. History obtained from hospital records and from patient's spouse Santosh. Patient was discharged last 10/21/16 from [facility] and was transitioned to [facility]. As per , patient was still very weak but was awake, alert, oriented x 3, and seemed to tolerated hemodialysis fine. For the past two days, patient was noted to be occasionally confused by her . He denies that the patient was reporting headache, dizziness, nausea/ vomiting, chest pain, dyspnea, abdominal pain. She does have occasional cough. ER records report patient was incontinent of urine and BMs. At the ER, patient was afebrile, with leukocytosis of 13k, and UA showing possible UTI. CT head was negative for acute process, Ammonia less than 10. On exam, patient's was at the bedside. She was drowsy but easily rousable, does not answer simple questions, and would drift back to sleep. She was able to say no when asked if she has pain, headache, chest pain, dyspnea , abdominal pain. No other symptoms. Past Medical/Surgical History Medical Problems: (1) Ascites Status: Chronic (2) Biliary cirrhosis Status: Chronic (3) Chronic pericarditis Status: Chronic (4) Chronic steroid use Permanent Comment: chronic pericarditis Status: Chronic (5) CKD (chronic kidney disease), stage III Status: Chronic (6) Esophageal varices Status: Chronic (7) History of paroxysmal atrial tachycardia Status: Chronic (8) History of PSVT (paroxysmal supraventricular tachycardia) Status: Chronic (9) Osteoarthritis Status: Chronic (10) Portal hypertension Status: Chronic Surgical Problems: (1) Status post cardiac catheterization Permanent Comment: 2012 Status: Chronic (2) Status post catheter ablation for SVT Status: Chronic (3) Status post reverse total arthroplasty of right shoulder Status: Chronic (4) Status post transjugular intrahepatic portosystemic shunt Status: Chronic Family History Asthma MOTHER Diabetes mellitus FATHER Heart disease FATHER MOTHER Social History Smoking Status: Never Smoker Smokeless Tobacco Use: No Drug Use: none Marital Status: [facility] Occupational Status: disabled Multi-Drug Resistant Organisms History of MDRO: Yes Type of MDRO: MRSA Allergies Coded Allergies: Budesonide (Verified Allergy, Intermediate, FACIAL SWELLING, 11/04/16) PER RECORDS Mycophenolate (Verified Allergy, Intermediate, FACIAL SWELLING, 11/04/16) PER RECORDS Latex (Verified Allergy, Mild, RASH-CONTACT, 11/04/16) Acetaminophen (Verified Adverse Reaction, Unknown, "LIVER DISEASE", ) PER RECORDS Pseudoephedrine (Verified Adverse Reaction, Unknown, TACHYCARDIA, 11/04/16) PER RECORDS Home Medications Scheduled Cholecalciferol (Vitamin D3), 1,000 UNITS PO QAM Clindamycin HCl (Clindamycin HCl), 1 CAP PO TID Darbepoetin (Aranesp Albumin Free), 0.3 ML SC WK Docusate Sodium (Docusate Sodium), 1 CAP PO BID Ferrous Gluconate (Ferrous Gluconate), 324 MG PO TID Heparin Sodium (Porcine) (Heparin Sodium), 1,000 IV. 3XWK Heparin Sodium (Porcine) (Heparin Sodium), 400 IV 3XWK Heparin Sodium (Porcine) (Heparin Sodium), 1 DOSE IV UD Midodrine Hcl (Midodrine Hcl), 5 MG PO TID Multiple Vitamin (Daily-Zia), 1 TAB PO QAM Obeticholic Acid (Ocaliva), 5 MG PO tuesday Pantoprazole (Pantoprazole Sodium), 40 MG PO QAM Prednisone (Prednisone), 5 MG PO DAILY Rifaximin (Xifaxan), 550 MG PO BID Senna/Docusate Sod (Senokot S), 1 TAB PO qlunch Sertraline (Zoloft), 50 MG PO QAM Ursodiol (Ursodiol), 600 MG PO BID Scheduled PRN Bisacodyl (Bisac-Evac), 10 MG TX DAILY PRN for Constipation Hydromorphone Hcl (Dilaudid), 2 MG PO Q4H PRN for Pain Lorazepam (Ativan), 0.5 MG PO TID PRN for Anxiety Magnesium Hydroxide (Milk of Magnesia), 30 ML PO DAILY PRN for Constipation Ondansetron Hcl (Zofran), 4 MG PO Q4 PRN for Nausea Polyethylene Glycol 3350 (Bulk (Polyethylene Glycol 3350), 17 GM PO DAILY PRN for Constipation Review of Systems Constitutional- no fever; no weight loss Eyes- no acute visual changes ENT- no sinus drainage; no pharyngitis Pulmonary- (+) cough, no wheezing, no shortness of breath Cardiac- no chest pain, no palpitations, no orthopnea GI- no nausea, no vomiting, no diarrhea, no melena, no hematochezia - no dysuria, no hematuria Musculoskeletal- no arthralgias, no myalgias Derm- no rashes, no new skin lesions, no changing skin lesions Hematologic- no unusual bruising, no unusual bleeding Lymphatics- no adenopathy Endocrine- no polyuria or polydipsia; no heat or cold intolerance Neuro- (+) as noted above Psych- no anxiety, no depression Physical Exam Vital Signs Date Time Temp Pulse Resp B/P (MAP) Pulse Ox O2 Delivery O2 Flow Rate FiO2 11/04/16 14:52 79 14 112/54 95 11/04/16 13:12 79 14 112/54 95 Nasal Cannula 2.0 11/04/16 13:02 79 11/04/16 12:09 79 20 118/51 96 Nasal Cannula 2.0 11/04/16 10:14 77 20 125/59 97 Nasal Cannula 2.0 11/04/16 10:13 36.4 11/04/16 10:12 89 Room Air 11/04/16 08:36 77 11/04/16 08:35 98 Nasal Cannula 2.0 11/04/16 08:35 Nasal Cannula 2.0 11/04/16 08:35 36.6 75 20 118/72 98 Nasal Cannula 2.0 General Appearance: + pertinent finding (appears weak, drowsy, but not in acute distress, able to say words, no accessory muscle use) Head: normocephalic, atraumatic Eyes: EOMI, + pertinent finding ((+) icterus) ENT: normal ENT inspection, hearing grossly normal, pharynx normal Neck: supple, no adenopathy, thyroid normal, no JVD Respiratory/Chest: chest non-tender, lungs clear, normal breath sounds, no respiratory distress, no accessory muscle use, + pertinent finding ((+) right perm cath in place: no signs of infection) Cardiovascular: regular rate, rhythm, no JVD, no murmur Abdomen/GI: normal bowel sounds, non tender, soft, + pertinent finding (non distended) Extremities/Musculoskelatal: + pertinent finding ((+) grade 2 lower leg edema, no erythema/warmth/swelling) Neurologic/Psych: used car make ready mechanic II-XII nml as tested, no motor/sensory deficits, + pertinent finding (drowsy, not oriented x 2, but able to move upper extremities equally) Skin: + jaundice Diagnostics Laboratory Results Results Past 24 Hours Test 11/04/16 08:56 11/04/16 09:25 11/04/16 10:10 11/04/16 10:58 Range/Units Prothrombin Time 16.2 9.0-12.0 SECONDS Prothromb Time International Ratio 1.5 0.9-1.1 Activated Partial Thromboplast Time 39.1 21.0-31.0 SECONDS Partial Thromboplastin Ratio 1.5 White Blood Count 13.56 4.8-10.8 K/uL Red Blood Count 3.43 4.2-5.4 M/uL Hemoglobin 10.0 12.0-16.0 g/dL Hematocrit 30.7 37-47 % Mean Corpuscular Volume 89.5 80-100 fL Mean Corpuscular Hemoglobin 29.2 25-34 pg Mean Corpuscular Hemoglobin Concent 32.6 32-36 g/dl Platelet Count 79 130-400 K/uL Mean Platelet Volume 11.1 7.4-10.4 fL Neutrophils (%) (Auto) 78.1 % Lymphocytes (%) (Auto) 13.2 % Monocytes (%) (Auto) 7.2 % Eosinophils (%) (Auto) 1.1 % Basophils (%) (Auto) 0.1 % Neutrophils # (Auto) 10.60 1.4-6.5 K/uL Lymphocytes # (Auto) 1.79 1.2-3.4 K/uL Monocytes # (Auto) 0.97 0.11-0.59 K/uL Eosinophils # (Auto) 0.15 0-0.5 K/uL Basophils # (Auto) 0.01 0-0.2 K/uL RDW Standard Deviation 63.2 36.4-46.3 fL RDW Coefficient of Variation 19.4 11.5-14.5 % Immature Granulocyte % (Auto) 0.3 % Immature Granulocyte # (Auto) 0.04 0.00-0.02 K/uL Anisocytosis PRESENT Target Cells 1+ Urine Color DK YELLOW Urine Appearance CLOUDY CLEAR Urine pH 6.0 4.5-7.5 Urine Specific [place] 1.015 1.000-1.030 Urine Protein 1+ NEG Urine Glucose (UA) NEG NEG Urine Ketones NEG NEG Urine Occult Blood 1+ NEG Urine Nitrite POS NEG Urine Bilirubin 3+ NEG Urine Urobilinogen NEG NEG Urine Leukocyte Esterase LARGE NEG Urine WBC (Auto) 1-5 0-5 /hpf Urine RBC (Auto) 0-4 0-4 /hpf Urine Hyaline Casts (Auto) 0 0-5 /lpf Urine Epithelial Cells (Auto) 0-5 0-5 /lpf Urine Bacteria (Auto) 4+ NEG Urine Crystals NONE PRSENT Urine Yeast (Auto) BUDDING NONE PRSENT Urine Opiates Screen NEG NEG Urine Methadone, Qualitative NEG NEG Urine Barbiturates NEG NEG Urine Phencyclidine (PCP) Level NEG NEG Ur Amphetamine/Methamphetamine NEG NEG MDMA (Ecstasy) Screen NEG NEG Urine Benzodiazepines Screen NEG NEG Urine Cocaine Metabolite NEG NEG Urine Marijuana (THC) NEG NEG Erythrocyte Sedimentation Rate 15 0-21 mm/hr Sodium Level 137 136-145 mmol/L Potassium Level 3.7 3.5-5.1 mmol/L Chloride Level 101 98-107 mmol/L Carbon Dioxide Level 26 21-32 mmol/L Anion Gap 10.0 3-11 mmol/L Blood Urea Nitrogen 25 7-18 mg/dl Creatinine 2.50 0.60-1.20 mg/dl Estimated GFR () 23.6 Estimated GFR (Non- 20.4 BUN/Creatinine Ratio 10.0 10-20 Random Glucose 72 70-99 mg/dl Calcium Level 10.1 8.5-10.1 mg/dl Magnesium Level 2.4 1.8-2.4 mg/dl Total Bilirubin 14.9 0.2-1 mg/dl Direct Bilirubin 11.7 0-0.2 mg/dl Aspartate Amino Transf (AST/SGOT) 77 15-37 U/L Alanine Aminotransferase (ALT/SGPT) 37 12-78 U/L Alkaline Phosphatase 628 45-117 U/L Ammonia < 10.0 11-32 umol/L Total Creatine Kinase 24 26-192 U/L Creatine Kinase MB 1.3 0.5-3.6 ng/ml Creatine Kinase MB Ratio 5.4 0-3.0 Troponin I < 0.015 0-0.045 ng/ml C-Reactive Protein 7.45 0-0.29 mg/dl Total Protein 5.5 6.4-8.2 gm/dl Albumin 2.2 3.4-5.0 gm/dl Lipase 83 73-393 U/L Thyroid Stimulating Hormone (TSH) 8.280 0.300-4.500 uIu/ml Test 11/04/16 11:20 Range/Units Arterial Blood pH 7.46 7.35-7.45 Arterial Blood Partial Pressure CO2 43 35-46 mmHg Arterial Blood Partial Pressure O2 81 80-95 mm/Hg Arterial Blood HCO3 30 19-24 mmol/L Arterial Blood Oxygen Saturation 93.8 90-95 % Arterial Blood Base Excess 5.2 -9-1.8 mEq/L Arterial Blood Gas Delivery 2L Amado Test POS POS Lactic Acid Level 1.2 0.4-2.0 mmol/L Ethyl Alcohol mg/dL < 3.0 0-3 mg/dl Microbiology Results 11/04/16 Blood Culture, Received Pending 11/04/16 Blood Culture, Received Pending 11/04/16 Urine Culture, Received Pending Diagnostic Radiology CHEST ONE VIEW PORTABLE HISTORY: 61 years-old Female Evaluate Fever/Sepsis acute fever with sepsis. COMPARISON: Chest radiograph 10/14/2016 TECHNIQUE: Portable upright AP view of the chest FINDINGS: Cardiac silhouette is again moderately enlarged. There is atherosclerosis of the aorta. Dual lumen right internal jugular hemodialysis catheter is again noted in stable positioning with distal tip terminating in the region of the right atrium. There is no pneumothorax or large pleural effusion identified. There is chronic blunting of the right costophrenic angle with persistent right hemidiaphragmatic elevation and linear subsegmental bibasilar opacities suggesting atelectasis. Reverse right shoulder arthroplasty. There are ORIF changes of the left shoulder. The bones are osteopenic. Multilevel degenerative changes are seen throughout the spine. IMPRESSION: 1. Cardiomegaly without acute cardiopulmonary process. 2. Unchanged right hemidiaphragm elevation with linear subsegmental bibasilar opacities suggesting atelectasis. HEAD WITHOUT CONTRAST (CT) CLINICAL HISTORY: 61 years-old Female presenting with Evaluate Fever/Sepsis. TECHNIQUE: Multidetector CT imaging of the head was performed without the use of intravenous contrast. IV contrast: None. A dose lowering technique was used consistent with the principles of ALARA (as low as reasonably achievable). COMPARISON: 09/21/2016. CT DOSE (mGy.cm): The estimated cumulative dose is 729.78 mGycm. FINDINGS: Director Process topogram: Unremarkable. Ventricles and sulci normal in size. Brain parenchyma normal in appearance with preserved flores-white differentiation. No mass effect or midline shift. No hemorrhage or acute territorial infarct. No extra-axial fluid collection. Paranasal sinuses and mastoid air cells clear. Calvarium intact. IMPRESSION: 1. No acute intracranial pathology. EKG hr 76, sinus rhythm, poor r wave progression, prolonged QT Impression Assessment and Plan 61 year old female with history of recent Right Shoulder Arthroplasty in 09/2016 , ESRD on HD, Primary Biliary Cirrhosis, Right Elbow Decubitus Ulcer with MRSA infection serina wound vac presenting with altered mental status. ALTERED MENTAL STATUS, LIKELY TOXIC-METABOLIC ENCEPHALOPATHY FROM UNDERLYING UTI - does not meet criteria for sepsis - no other clear source of infection at this time - ff up blood and urine cultures - empiric Zosyn IV - has a right elbow decubitus ulcer, being followed by Dr. Yeung and Dr. Jha on Clindamycin PO as recent cultures showed MRSA does not seem actively infected at this time continue Clindamycin po TID monitor - hold Ativan and Dilaudid PRN HYPERBILIRUBINEMIA PRIMARY BILIARY CIRRHOSIS - bilirubin increased compared to recent admission Plt slightly lower and INR also higher than recent admission - will consult GI - continue Prednisone, Rifaximin, Ursodiol, Ocaliva, Laxatives monitor LFTs daily RIGHT ELBOW DECUBITUS ULCER - management per #1 PROLONGED QT - QT 549 hold Zoloft - repeat EKG in AM ESRD ON HD - no signs of volume overload HD on MWF via R permcath- does not seem infected at this time will consult Nephro HYPOTENSION HISTORY - on Midodrine CHRONIC ANEMIA - Hg stable monitor DEPRESSION - hold Zoloft for prolonged QT - repeat EKG in Am DVT PROPHYLAXIS has lower leg edema, SCDs contraindicated has thrombocytopenia, INR elevated, anticoagulation also contraindicated patient can barely stand per DNR as per discussion with Santosh he states patient has expressed wishes that she does not want CPR, shock and mechanical ventilator at any instance, and that patient is a DNR Disposition pending anticipate return to [facility] when medically stable ff up with PCP Dr. Witt, Nephro, GI, [facility] and ID case and plan of care discussed with patient's Santosh in detail and at length he is agreeable, understanding and comfortable with plan of care all questions answered VTE Prophylaxis VTE Risk Assessment Done? Y/N: Yes Risk Level: Moderate Given or contraindicated: Contraindicated
[2016-11-04 15:45] VITALS: O2SAT 96
[2016-11-04] MEDS ORDERED: PIPERACILL/TAZOBAC IV 3.375 GM in DEXTROSE 5% 100ML IV ONE (16:15)
[2016-11-04] MEDS: URSODIOL 300 MG CAP PO SCH (16:45)
[2016-11-04] MEDS ORDERED: INFLUENZA VIRUS QUAD VACCINE 0.5 ML SYR IM. ONE (16:45)
[2016-11-04] MEDS ORDERED: INFLUENZA ADMINISTRATION CHARGE ONE (16:45)
[2016-11-04] MEDS: MIDODRINE 2.5 MG TAB PO SCH (17:36)
[2016-11-04] MEDS: DOCUSATE SODIUM 100 MG CAP PO SCH (19:35)
[2016-11-04] MEDS: CLINDAMYCIN HCL 150 MG CAP PO SCH (19:35)
[2016-11-04] MEDS: RIFAXIMIN TAB 550 MG TAB PO SCH (19:35)
[2016-11-04 20:00] VITALS: O2SAT 95
[2016-11-04 20:22] VITALS: BP 110/55; PULSE 79; TEMP 36.5; O2SAT 91
--- NOTE | 2016-11-04 22:01 | Gastrointestinal Consultation ---
Gastrointestinal Consultation Date of Consultation: Nov 04, 2016 Attending Physician: Vinod Manriquez Consulting Physician: Jun Knox Reason for Consultation: PBC, increased Tbili History of Present Illness Patient is a 61 year old female who [facility]. She was noted to be also incontinent of urine/stool. Unable to converse or provide ROS, but able to follow simple commands such as to squeeze my fingers and nod. Hx obtained from chart review and her . She has hx of PBC, developed ATN/CARLOS ENRIQUE vs HRS currently on hemodialysis. She was last admitted here from 09/17 to 10/20: Initially admitted for R humerus fx s/p reverse total shoulder arthroplasty but hospitalization course then was complicated by ARDS, pneumonia w pt needing ventilation support, altered mental status which may be related to hepatic encephalopathy and also renal failure. Pt previously followed by Dr. Huseyin Agosto ([facility] Hep[facility]) for PBC. In the past MELD score low (around 15) and she was not on transplant list. Though with recent decline in liver as well as renal function, her MELD score now is 35. Discussions made w family during pt's last admission about possibly transferring her to [facility] to be re-evaluated by Transplant Surgery team, to get reconsidered for transplant listing. Family decided not to proceed with inpt transfer at that time. Labs, VS reviewed. BP 110s/50s, she had been on Midodrine. Afebrile, + leukocytosis, stable anemia. INR 1.5, Cr 2.5, she follows M/W/Fr HD schedule, LFTs showed increasing Tbili now up to 14.9. AST 77, ALT 37, AP 600s. Normal Lipase. UA indicative of possible UTI, w yeast growing as well. Blood and urine culture pending. Utox & ETOH screens negative, Head CT negative, CXR showed R atelectasis. Past Medical/Surgical History Medical Problems: (1) Confusion Status: Acute (2) Displaced fracture of proximal end of right humerus Status: Acute (3) UTI (urinary tract infection) Status: Acute Surgical Problems: (1) Status post catheter ablation for SVT Status: Chronic Past Medical History: Past Medical/Surgical History Medical Problems: (1) Ascites Status: Chronic (2) Biliary cirrhosis Status: Chronic (3) Chronic pericarditis Status: Chronic (4) Chronic steroid use Permanent Comment: chronic pericarditis Status: Chronic (5) CKD (chronic kidney disease), stage III Status: Chronic (6) Esophageal varices Status: Chronic (7) History of paroxysmal atrial tachycardia Status: Chronic (8) History of PSVT (paroxysmal supraventricular tachycardia) Status: Chronic (9) Osteoarthritis Status: Chronic (10) Portal hypertension Status: Chronic Surgical Problems: (1) Status post cardiac catheterization Permanent Comment: 2012 Status: Chronic (2) Status post catheter ablation for SVT Status: Chronic (3) Status post reverse total arthroplasty of right shoulder Status: Chronic (4) Status post transjugular intrahepatic portosystemic shunt Status: Chronic Family History Asthma MOTHER Diabetes mellitus FATHER Heart disease FATHER MOTHER Social History Smoking Status: Never Smoker Alcohol Use: none Drug Use: none Marital Status: Occupation Status: disabled Allergies Coded Allergies: Budesonide (Verified Allergy, Intermediate, FACIAL SWELLING, 11/04/16) PER RECORDS Mycophenolate (Verified Allergy, Intermediate, FACIAL SWELLING, 11/04/16) PER RECORDS Latex (Verified Allergy, Mild, RASH-CONTACT, 11/04/16) Acetaminophen (Verified Adverse Reaction, Unknown, "LIVER DISEASE", ) PER RECORDS Pseudoephedrine (Verified Adverse Reaction, Unknown, TACHYCARDIA, 11/04/16) PER RECORDS Current Medications Home Meds and Scripts Medications Dose Route/Sig Max Daily Dose Days Date Category Dose Instructions Heparin Sodium (Heparin Sodium (Porcine)) 1,000 Unit/Ml Inj 1 Dose IV UD 11/04/16 Reported GIVE 400 - 1000 UNITS IV PUSH INDICATED Heparin Sodium (Heparin Sodium (Porcine)) 1,000 Unit/Ml Inj 400 IV 3XWK 11/04/16 Reported GIVE 400 UNITS IV PUSH 3 TIMES A WEEK ON TUESDAY, TUESDAY , AND TUESDAY Heparin Sodium (Heparin Sodium (Porcine)) 1,000 Unit/Ml Inj 1,000 IV. 3XWK 11/04/16 Reported GIVE 1000 UNITS IV PUSH 3 TIMES A WEEK ON TUESDAY, TUESDAY, AND TUESDAY Senokot S (Senna/Docusate Sodium) 1 Tab Tab 1 Tab PO QLUNCH 11/04/16 Reported Dilaudid (Hydromorphone Hcl) 2 Mg Tab 2 Mg PO Q4H PRN 11/04/16 Reported Clindamycin HCl 300 Mg Cap 1 Cap PO TID 30 11/03/16 Rx Polyethylene Glycol 3350 (Polyethylene Glycol 3350 (Bulk) 1 Pow Pow 17 Gm PO DAILY PRN 30 10/25/16 Reported Zofran (Ondansetron HCl) 4 Mg Tab 4 Mg PO Q4 PRN 10/25/16 Reported Milk of Magnesia (Magnesium Hydroxide) 30 Ml Susp 30 Ml PO DAILY PRN 10/25/16 Reported Ativan (Lorazepam) 0.5 Mg Tab 0.5 Mg PO TID PRN 10/25/16 Reported Docusate Sodium 100 Mg Cap 1 Cap PO BID 15 10/25/16 Reported Bisac-Evac (Bisacodyl) 10 Mg Supp 10 Mg WI DAILY PRN 10/25/16 Reported Aranesp Albumin Free (Darbepoetin) 60 Mcg/0.3 Ml Inj 0.3 Ml SC WK 10/25/16 Reported inject 60 mcg sc once a week on tuesday Midodrine Hcl 5 Mg Tab 5 Mg PO TID 10/21/16 Rx MIDODRINE 5MG PO TID AT 0800, 1200 AND 1800. Daily-Zia (Multiple Vitamin) 1 Tab Tab 1 Tab PO QAM 10/21/16 Rx Prednisone 5 Mg Tab 5 Mg PO DAILY 10/21/16 Rx Pantoprazole Sodium (Pantoprazole) 40 Mg Tab 40 Mg PO QAM 10/21/16 Rx Xifaxan (Rifaximin) 550 Mg Tab 550 Mg PO BID 10/21/16 Rx Vitamin D3 (Cholecalciferol) 1,000 Unit Cap 1,000 Units PO QAM 09/10/16 Reported Ferrous Gluconate 324 Mg Tab 324 Mg PO TID 09/10/16 Reported Ursodiol 300 Mg Cap 600 Mg PO BID 07/23/16 Reported Ocaliva (Obeticholic Acid) 5 Mg Tab 5 Mg PO Tuesday07/23/16 Reported AM Zoloft (Sertraline HCl) 50 Mg Tab 50 Mg PO QAM 07/23/16 Reported Review of Systems Constitutional: + see HPI (Unable to obtain) Physical Exam Date Time Temp Pulse Resp B/P (MAP) Pulse Ox O2 Delivery O2 Flow Rate FiO2 11/04/16 20:22 36.5 79 17 110/55 (73) 91 Nasal Cannula 1.5 11/04/16 20:00 95 Nasal Cannula 2.0 11/04/16 15:45 96 Nasal Cannula 2.0 11/04/16 15:29 83 20 145/64 Nasal Cannula 2.0 11/04/16 14:52 79 14 112/54 95 11/04/16 13:12 79 14 112/54 95 Nasal Cannula 2.0 11/04/16 13:02 79 11/04/16 12:09 79 20 118/51 96 Nasal Cannula 2.0 11/04/16 10:14 77 20 125/59 97 Nasal Cannula 2.0 11/04/16 10:13 36.4 11/04/16 10:12 89 Room Air 11/04/16 08:36 77 11/04/16 08:35 98 Nasal Cannula 2.0 11/04/16 08:35 Nasal Cannula 2.0 11/04/16 08:35 36.6 75 20 118/72 98 Nasal Cannula 2.0 General Appearance: + mild distress (confused, appears drowsy) Eyes: + pertinent finding (icteric sclera) Respiratory/Chest: no respiratory distress, no accessory muscle use, + decreased breath sounds Cardiovascular: regular rate, rhythm, no gallop, no murmur Abdomen: non tender, soft, + abnormal bowel sounds (hypoactive) Extremities: + swelling (non pitting leg swelling) Neurologic/Psych: + disoriented Skin: + jaundice Laboratory Results Last 24 Hours Test 11/04/16 08:56 11/04/16 09:25 11/04/16 10:10 11/04/16 10:58 Prothrombin Time 16.2 SECONDS Prothromb Time International Ratio 1.5 Activated Partial Thromboplast Time 39.1 SECONDS Partial Thromboplastin Ratio 1.5 White Blood Count 13.56 K/uL Red Blood Count 3.43 M/uL Hemoglobin 10.0 g/dL Hematocrit 30.7 % Mean Corpuscular Volume 89.5 fL Mean Corpuscular Hemoglobin 29.2 pg Mean Corpuscular Hemoglobin Concent 32.6 g/dl Platelet Count 79 K/uL Mean Platelet Volume 11.1 fL Neutrophils (%) (Auto) 78.1 % Lymphocytes (%) (Auto) 13.2 % Monocytes (%) (Auto) 7.2 % Eosinophils (%) (Auto) 1.1 % Basophils (%) (Auto) 0.1 % Neutrophils # (Auto) 10.60 K/uL Lymphocytes # (Auto) 1.79 K/uL Monocytes # (Auto) 0.97 K/uL Eosinophils # (Auto) 0.15 K/uL Basophils # (Auto) 0.01 K/uL RDW Standard Deviation 63.2 fL RDW Coefficient of Variation 19.4 % Immature Granulocyte % (Auto) 0.3 % Immature Granulocyte # (Auto) 0.04 K/uL Anisocytosis PRESENT Target Cells 1+ Urine Color DK YELLOW Urine Appearance CLOUDY Urine pH 6.0 Urine Specific Crystal 1.015 Urine Protein 1+ Urine Glucose (UA) NEG Urine Ketones NEG Urine Occult Blood 1+ Urine Nitrite POS Urine Bilirubin 3+ Urine Urobilinogen NEG Urine Leukocyte Esterase LARGE Urine WBC (Auto) 1-5 /hpf Urine RBC (Auto) 0-4 /hpf Urine Hyaline Casts (Auto) 0 /lpf Urine Epithelial Cells (Auto) 0-5 /lpf Urine Bacteria (Auto) 4+ Urine Crystals Urine Yeast (Auto) BUDDING Urine Opiates Screen NEG Urine Methadone, Qualitative NEG Urine Barbiturates NEG Urine Phencyclidine (PCP) Level NEG Ur Amphetamine/Methamphetamine NEG MDMA (Ecstasy) Screen NEG Urine Benzodiazepines Screen NEG Urine Cocaine Metabolite NEG Urine Marijuana (THC) NEG Erythrocyte Sedimentation Rate 15 mm/hr Sodium Level 137 mmol/L Potassium Level 3.7 mmol/L Chloride Level 101 mmol/L Carbon Dioxide Level 26 mmol/L Anion Gap 10.0 mmol/L Blood Urea Nitrogen 25 mg/dl Creatinine 2.50 mg/dl Estimated GFR () 23.6 Estimated GFR (Non- 20.4 BUN/Creatinine Ratio 10.0 Random Glucose 72 mg/dl Calcium Level 10.1 mg/dl Magnesium Level 2.4 mg/dl Total Bilirubin 14.9 mg/dl Direct Bilirubin 11.7 mg/dl Aspartate Amino Transf (AST/SGOT) 77 U/L Alanine Aminotransferase (ALT/SGPT) 37 U/L Alkaline Phosphatase 628 U/L Ammonia < 10.0 umol/L Total Creatine Kinase 24 U/L Creatine Kinase MB 1.3 ng/ml Creatine Kinase MB Ratio 5.4 Troponin I < 0.015 ng/ml C-Reactive Protein 7.45 mg/dl Total Protein 5.5 gm/dl Albumin 2.2 gm/dl Lipase 83 U/L Thyroid Stimulating Hormone (TSH) 8.280 uIu/ml Test 11/04/16 11:20 Arterial Blood pH 7.46 Arterial Blood Partial Pressure CO2 43 mmHg Arterial Blood Partial Pressure O2 81 mm/Hg Arterial Blood HCO3 30 mmol/L Arterial Blood Oxygen Saturation 93.8 % Arterial Blood Base Excess 5.2 mEq/L Arterial Blood Gas Delivery 2L Amado Test POS Lactic Acid Level 1.2 mmol/L Ethyl Alcohol mg/dL < 3.0 mg/dl Impression Patient is a 61 year old female w PBC, ATN/CARLOS ENRIQUE vs HRS on hemodialysis admitted for altered mental status. MELD 35. Plan - Infectious workup pending; f/u blood and urine cultures. CXR atelectasis, head CT negative. She has no signs of ascites build up, also s/p TIPS but may attempt to evaluate w abd u/s to check for ascites and if present can try diagnostic tap to r/o SBP - Continue Ursodiol and Xifaxan. - Discussed at length with pt's again today about possible transfer to [facility] for liver/kidney transplant re-evaluation. Her next outpt appt w transplant team isn't till December. refuses transfer at this time, stating pt may be too unstable for transfer and may be too ill to undergo surgery. - Will follow. Attg addendum. I interviewed and examined pt, reviewed chart and labs. Pt admit with PBC, HRS now with HE, jaundice. Unclear cause of jaundice -- related to PVT? Ocaliva? Renal failure? Cont lactulose. I agree with recommendations for transfer -- However, family wishes to defer.
[2016-11-04 23:59] VITALS: O2SAT 95
[2016-11-05] VITALS (22 sets, daily range): BP systolic 85–139; BP diastolic 38–80; PULSE 70–89; TEMP 36.3–36.7; O2SAT 94–98
[2016-11-05] MEDS: PIPERACILL/TAZOBAC IV 3.375 GM in DEXTROSE 5% 100ML IV SCH ×2 (01:58→14:00)
--- NOTE | 2016-11-05 06:51 | DIAGNOSTIC IMAGING REPORT ---
ULTRASOUND THE ABDOMEN FOR ASCITES DETERMINATION CLINICAL HISTORY: Ascites COMPARISON STUDY: No previous studies for comparison. FINDINGS: There is a small to moderate volume of ascites. This is considered insufficient to warrant therapeutic paracentesis. There is sufficient fluid to perform a diagnostic paracentesis if this is felt clinically indicated. IMPRESSION: Small to moderate volume of ascites. Electronically signed by: Yusef Sotelo M.D. 11/05/2016 6:50 AM Dictated Date/Time: 11/05/2016 6:48 AM
[2016-11-05] MEDS ORDERED: ALBUMIN HUMAN 25% 12.5 GM/50 ML VIAL IV ONE ×2 (08:00→15:30)
--- NOTE | 2016-11-05 08:31 | NEPHROLOGY CONSULTATION ---
DATE OF CONSULTATION: 11/05/2016 ATTENDING OF RECORD: Dr. Guerra. REASON FOR CONSULTATION: End-stage renal disease. HISTORY OF PRESENT ILLNESS: This is a 61-year-old female who was recently in the hospital, discharged on 10/21/2016 to [facility]. At that time, her volume status was good and she was getting hemodialysis, tolerating it well through a tunneled dialysis catheter. I had evaluated the patient on Tuesday at [facility] and the patient was much more edematous and more lethargic. Currently, she has a wound VAC for right elbow ulcer and is on chronic antibiotics for that. The patient though appears more jaundiced and more edematous and actually today, is more awake than she was on Tuesday when I saw her on dialysis. Although, she knows her name and knows the year and is unsure which hospital she is at or who the President is. She continues to be somewhat confused. PAST MEDICAL HISTORY: End-stage renal disease, primary biliary cirrhosis with portal hypertension and esophageal varices, paroxysmal atrial tachycardia, osteoarthritis, and chronic right elbow decubitus ulcer with a wound VAC. PAST SURGICAL HISTORY: Tunneled dialysis catheter, right shoulder arthroplasty, and TIPS. FAMILY HISTORY: Significant for diabetes. SOCIAL HISTORY: No smoking, no alcohol, and no drugs. She is , lives at home but currently at [facility], getting rehabilitation and awaiting to eventually go. CURRENT MEDICATIONS: Senna 1 tab daily, Protonix 40 mg IV daily, prednisone 5 mg daily, Zosyn 3.375 IV q. 12 hours, clindamycin 300 t.i.d., rifaximin 550 mg p.o. b.i.d., Colace 100 mg p.o. b.i.d. and ursodiol 600 mg p.o. b.i.d. REVIEW OF SYSTEMS: No fevers or chills. Positive lethargy. Positive anorexia. Positive edema. Positive confusion. Positive jaundice. Denies chest pain. Denies shortness of breath. All other review of systems otherwise negative. PHYSICAL EXAMINATION: VITAL SIGNS: Temperature 36.3, pulse 81, respiratory rate 22, blood pressure 113/49, and satting 95% on 2 liters. GENERAL: Awake, alert, and oriented x2. Easily confused, lethargic and jaundice. EYES: Positive scleral icterus. NECK: Supple. PULMONARY: Decreased breath sounds at the bases. CARDIAC: Regular rate and rhythm. ABDOMEN: Bowel sounds positive. Soft and nontender. EXTREMITIES: +2 edema. NEUROLOGICALLY: Confused, but awake and attempted to answer questions. DERMATOLOGIC: Chronic right decubitus ulcer, requiring a wound VAC. LABORATORIES: Pending for this morning. Yesterday, white count 13,000, H&H 10 and 30, and platelet count is 79. Sodium level is 137, potassium 3.7, chloride is 101, bicarb is 26, BUN is 25, and creatinine is 2.5. T-bili is 15 and direct bilirubin is 11.7. AST 77 and ALT 37. TSH 8.2. Lipase 83. Albumin is 2.2. INR is 1.5. UA with positive nitrite, large leukocyte esterase, and 4+ bacteria. Urine tox screen is negative. Blood gas shows a pH of 7.46, pCO2 of 43, pO2 of 81 and bicarbonate of 30. Urine and blood cultures are pending. Abdominal ultrasound shows small to moderate volume of ascites. Chest x-ray shows cardiomegaly without acute cardiopulmonary process. Head CT is negative. ASSESSMENT AND PLAN: End-stage renal disease. The patient developed acute kidney injury/acute tubular necrosis during last admission and has not recovered and continues on dialysis through a tunneled dialysis catheter on Mondays, Wednesdays, and Fridays. Today is her regular dialysis day and would like to plan on dialysis today, tomorrow and Tuesday with albumin, trying to mobilize extra fluid. The patient's blood pressures though do not support an aggressive fluid removal; however, the patient is quite edematous and would like to try to do dialysis on a daily basis and attempts to mobilize the extra fluid as tolerated with the help of albumin. MTDD
--- NOTE | 2016-11-05 08:31 | Clinical Documentation Query ---
CINDI Young : CLINICAL DOCUMENTATION QUERY Documentation includes: "- has a right elbow decubitus ulcer, being followed by Dr. Yeung and Dr. Jha on Clindamycin PO as recent cultures showed MRSA does not seem actively infected at this time continue Clindamycin po TID monitor" Please clarify appropriate clinical stage of pressure ulcer as appropriate. Per wound center notes earlier this month, ulcer was a stage 4 pressure ulcer at that time. In your clinical opinion is this patient being managed for: ( ) Pressure ulcer of right elbow, stage 4 ( ) Not Agree ( ) Other explanation of clinical findings (Please Explain) ( ) Unable to determine (Please Define) ( ) Need to Discuss The medical record reflects the following clinical findings, treatment, and risk factors. Clinical Indicators: As above Treatment: Ongoing clindamycin, local wound care Risk Factors: Age, immobility, malnutrition Please clarify and document your clinical opinion in the progress notes and discharge summary. Terms such as "probable", "suspected", "likely", "questionable", "possible", or "still to be ruled out" are acceptable. IF IN AGREEMENT, YOU MUST DOCUMENT ABOVE DIAGNOSTIC STATEMENT IN DAILY PROGRESS NOTES AND DISCHARGE SUMMARY. This document is not part of the patient's record. Thank You, Toi Pineda, RN [phone]
[2016-11-05] MEDS: MIDODRINE 2.5 MG TAB PO SCH ×3 (09:00→18:00)
[2016-11-05] MEDS: URSODIOL 300 MG CAP PO SCH ×2 (09:38→16:40)
[2016-11-05] MEDS: CLINDAMYCIN HCL 150 MG CAP PO SCH ×3 (09:39→21:45)
[2016-11-05] MEDS: DOCUSATE SODIUM 100 MG CAP PO SCH ×2 (09:39→21:45)
[2016-11-05] MEDS: RIFAXIMIN TAB 550 MG TAB PO SCH ×2 (09:40→21:46)
[2016-11-05] MEDS: PANTOprazole INJ 40 MG in SYRINGE 0 ML IV SCH (09:41)
[2016-11-05 11:12] LABS: REFERENCE QUEST TEST REPORT
[2016-11-05] MEDS: DOCUSATE SODIUM/SENNA 50/8.6MG TAB PO SCH (11:52)
--- NOTE | 2016-11-05 11:58 | Gastroenterology Progress Note ---
Progress Note Date of Service: Nov 05, 2016 Subjective Pt evaluation today including: conversation w/ patient, conversation w/ family , physical exam, chart review, lab review, review of studies, review of inpatient medication list Pt appears a bit more alert today, though when I tried to have a conversation with her, all she can say is "cover me up please", did mention R arm in pain. R elbow w wound VAC. Unable to obtain ROS otherwise. Review of Systems Constitutional: + see HPI Medications Current Inpatient Medications Medications (Trade) Dose Ordered Sig/Michael Route Start Time Stop Time Status Last Admin Dose Admin Piperacillin Sod/ Tazobactam Sod (Consult) 1 ea UD PRN N/A 11/04/16 15:24 12/04/16 15:23 Docusate Sodium (coLACE CAP) 100 mg BID PO 11/04/16 21:00 12/04/16 20:59 11/05/16 09:39 100 MG Prednisone (PredniSONE TAB) 5 mg DAILY PO 11/05/16 09:00 12/05/16 08:59 11/05/16 09:40 5 MG Rifaximin (Xifaxan Tab) 550 mg BID PO 11/04/16 21:00 12/04/16 20:59 11/05/16 09:40 550 MG Senna/Docusate Sodium (Senokot S Tab) 1 tab DAILY PO 11/05/16 12:00 12/05/16 11:59 Ursodiol (Actigall Cap) 600 mg BIDM PO 11/04/16 16:45 12/04/16 17:59 11/05/16 09:38 600 MG Miscellaneous Information (Order Awaiting Action) 1 ea QS N/A 11/04/16 16:00 12/04/16 15:59 Midodrine (Proamatine Tab) 5 mg TID@0900,1200,1800 PO 11/04/16 18:00 12/04/16 17:59 Miscellaneous Information (Order Awaiting Action) 1 ea QS N/A 11/04/16 16:00 12/04/16 15:59 Clindamycin HCl (Cleocin Cap) 300 mg TID PO 11/04/16 21:00 11/14/16 20:59 11/05/16 09:39 300 MG Pantoprazole Sodium 40 mg/ Syringe 10 ml @ 5 mls/min DAILY@11 IV 11/05/16 11:00 12/05/16 10:59 11/05/16 09:41 5 MLS/MIN Piperacillin Sod/ Tazobactam Sod 3.375 gm/Dextrose 115 ml @ 28.75 mls/ hr Q12H IV 11/05/16 02:00 11/15/16 01:59 11/05/16 01:58 28.75 MLS/HR Objective Vital Signs Date Time Temp Pulse Resp B/P (MAP) Pulse Ox O2 Delivery O2 Flow Rate FiO2 11/05/16 08:00 Nasal Cannula 2.0 11/05/16 07:18 36.3 81 22 113/49 (70) 95 Nasal Cannula 2.0 11/05/16 04:00 95 Nasal Cannula 2.0 11/05/16 03:40 36.4 82 18 102/54 (70) 94 Nasal Cannula 1.5 11/05/16 00:10 36.7 84 18 123/61 (81) 95 Nasal Cannula 1.5 11/04/16 23:59 95 Nasal Cannula 2.0 11/04/16 20:22 36.5 79 17 110/55 (73) 91 Nasal Cannula 1.5 11/04/16 20:00 95 Nasal Cannula 2.0 11/04/16 15:45 96 Nasal Cannula 2.0 11/04/16 15:29 83 20 145/64 Nasal Cannula 2.0 11/04/16 14:52 79 14 112/54 95 11/04/16 13:12 79 14 112/54 95 Nasal Cannula 2.0 11/04/16 13:02 79 11/04/16 12:09 79 20 118/51 96 Nasal Cannula 2.0 Physical Exam General Appearance: no apparent distress Eyes: EOMI, + pertinent finding (icteric sclera) Neck: supple, no JVD, trachea midline Respiratory/Chest: no respiratory distress, no accessory muscle use, + decreased breath sounds Cardiovascular: regular rate, rhythm, no gallop, no murmur Abdomen: non tender, soft, + abnormal bowel sounds (hypoactive) Extremities: no pedal edema Neurologic/Psych: + depressed affect, + disoriented Skin: + jaundice Laboratory Results Last 24 Hours Test 11/05/16 04:44 11/05/16 10:19 Assessment and Plan Impression Patient is a 61 year old female w PBC, ATN/CARLOS ENRIQUE vs HRS on hemodialysis admitted for altered mental status. MELD 35. Plan - Infectious workup pending; f/u blood and urine cultures. CXR atelectasis, head CT negative. U/S showed small amt of ascites, will attempt diagnostic paracentesis to r/o SBP - Continue Ursodiol and Xifaxan. - Discussed at length with pt's again yesterday and today about possible transfer to [facility] for liver/kidney transplant re-evaluation. Transplant Surgery (Dr. Sykes) recommended transfer for re-evaluation as well. Her next outpt appt w transplant team isn't till December. refuses transfer at this time, stating pt may be too unstable for transfer and may be too ill to undergo surgery. I have discussed her case with primary hospitalist (Dr. Guerra ) who will continue to follow up about possible transfer over the weekend.
--- NOTE | 2016-11-05 15:02 | DIAGNOSTIC IMAGING REPORT ---
ULTRASOUND-GUIDED DIAGNOSTIC PARACENTESIS: HISTORY: Ascites. Procedure: The procedure and its risks, benefits and alternatives were discussed with the patient and written informed consent was obtained. Preliminary ultrasound of the abdomen was performed to determine a safe needle entry site. The right lower quadrant was prepped and draped in the usual sterile fashion. 1% Lidocaine was used for local anesthesia. A 22-gauge x 3 1/2 in. Spinal needle was inserted into the peritoneal space using ultrasound guidance. The needle was connected to a syringe and a total of 100 cc of yellow-colored ascites was aspirated. The needle was removed and a sterile dressing applied. The patient tolerated the procedure well and there were no immediate complications. IMPRESSION: Ultrasound-guided diagnostic paracentesis with aspiration of 100 cc of ascites. Specimens were sent to the laboratory for further evaluation at the request of the referring physician. Electronically signed by: Zachary Clark M.D. 11/05/2016 3:00 PM Dictated Date/Time: 11/05/2016 2:59 PM
[2016-11-05 15:43] LABS: INR 1.6 (0.9-1.1); PROTHROMBIN TIME (PATIENT) 17.3 SECONDS (9.0-12.0)
[2016-11-05 15:52] LABS: ACANTHOCYTES 1+; BASO % 0.1 %; BASO ABS # 0.01 K/uL (0-0.2); COMPLETE YES; ECHINOCYTES 1+; EOS % 0.8 %; HEMATOCRIT 28.1 % (37-47); IG% 0.5 %; LYMPH % 8.3 %; LYMPH ABS # 0.81 K/uL (1.2-3.4); MEAN CELL VOLUME 88.6 fL (80-100); MEAN CORPUSCULAR HGB CONC 32.7 g/dl (32-36); MEAN PLATELET VOLUME 10.8 fL (7.4-10.4); MONO % 4.3 %; PLATELET COUNT 123 K/uL (130-400); POIKILOCYTOSIS PRESENT; RED BLOOD COUNT 3.17 M/uL (4.2-5.4); SCHISTOCYTES 1+; TARGET CELLS 1+; WHITE BLOOD COUNT 9.71 K/uL (4.8-10.8)
[2016-11-05 16:07] LABS: PERIT FL WBC 64 /uL (0-300); PERITONEAL FLUID RBC < 3000 /uL
[2016-11-05 16:09] LABS: BUN/CREATININE RATIO 10.5 (10-20); CALCIUM 10.7 mg/dl (8.5-10.1); CREATININE 3.3 mg/dl (0.60-1.20); POTASSIUM 3.7 mmol/L (3.5-5.1)
[2016-11-05 16:37] LABS: HEPATITIS B AB POS
--- NOTE | 2016-11-05 18:57 | Progress Note ---
Internal Med Progress Note Date of Service: Nov 05, 2016. Provider Documentation: SUBJECTIVE: confused afebrile hemodynamics stable has cough per nursing staff OBJECTIVE: Vital Signs-as noted below Exam: General-alert and awake. confused ENT-normal hearing Neck-no neck masses supple Lungs-cta b/l no wheezing bibasilar crackles present Heart-s1 and s2 heard regular rate and rhythm no murmurs Abdomen-soft bowel sounds present non tender distended Extremities-no erythema b/l lower extremity edema present Neuro-alert and awake. confused moves extremities Lab data as noted below. ASSESSMENT & PLAN: 61 year old female with history of recent Right Shoulder Arthroplasty in 09/2016 , ESRD on HD, Primary Biliary Cirrhosis, Right Elbow Decubitus Ulcer with MRSA infection serina wound vac presenting with altered mental status. ALTERED MENTAL STATUS, LIKELY metabolic -METABOLIC ENCEPHALOPATHY FROM UNDERLYING UTI and also esrd and liver cirrhosis on iv zosyn hemodynamics stable s/p diagnostic paracentesis and it was unremarkable await blood and urine cx Right elbow decubitus ulcer stage 4 , being followed by Dr. Yeung and Dr. Jha on Clindamycin PO as recent cultures showed MRSA continue same Cough will add doxycyline HYPERBILIRUBINEMIA PRIMARY BILIARY CIRRHOSIS On Prednisone, Rifaximin, Ursodiol, Ocaliva, Laxatives Bilirubin trending up GI discussed with transplant center at [place] and they recommended transfer today but refused and want to wait one more day. RIGHT ELBOW DECUBITUS ULCER stage 4 management per #1 PROLONGED QT QT 549 holding Zoloft repeat EKG tofay QT496 ESRD ON HD dialysis as per nephro HYPOTENSION HISTORY On Midodrine CHRONIC ANEMIA Hg stable Will monitor DEPRESSION holding Zoloft for prolonged QT repeat EKG in Am DVT PROPHYLAXIS has lower leg edema, SCDs contraindicated has thrombocytopenia, INR elevated, anticoagulation also contraindicated patient can barely stand per DNR as per H and P Disposition Possible transfer to [place] in am Vital Signs: Date Time Temp Pulse Resp B/P (MAP) Pulse Ox O2 Delivery O2 Flow Rate FiO2 11/05/16 18:15 77 85/39 11/05/16 18:00 78 86/46 11/05/16 17:45 70 86/40 11/05/16 17:30 74 92/42 11/05/16 17:15 81 120/80 11/05/16 17:00 81 99/41 11/05/16 16:45 82 98/52 11/05/16 16:30 80 100/48 11/05/16 16:15 77 87/47 11/05/16 16:00 82 118/52 11/05/16 16:00 Nasal Cannula 2.0 11/05/16 15:45 80 104/53 11/05/16 15:30 81 114/54 11/05/16 15:16 36.6 82 139/54 (82) 11/05/16 12:00 Nasal Cannula 2.0 11/05/16 11:33 36.6 85 22 102/51 (68) 96 Nasal Cannula 2.0 11/05/16 08:00 Nasal Cannula 2.0 11/05/16 07:18 36.3 81 22 113/49 (70) 95 Nasal Cannula 2.0 11/05/16 04:00 95 Nasal Cannula 2.0 11/05/16 03:40 36.4 82 18 102/54 (70) 94 Nasal Cannula 1.5 11/05/16 00:10 36.7 84 18 123/61 (81) 95 Nasal Cannula 1.5 11/04/16 23:59 95 Nasal Cannula 2.0 11/04/16 20:22 36.5 79 17 110/55 (73) 91 Nasal Cannula 1.5 11/04/16 20:00 95 Nasal Cannula 2.0 Lab Results: Results Past 24 Hours Test 11/05/16 00:00 11/05/16 15:18 11/05/16 15:19 Range/Units Peritoneal Fluid Color YELLOW Peritoneal Fluid Appearance CLOUDY Peritoneal Fluid WBC 64 0-300 /uL Peritoneal Fluid RBC < 3000 /uL Peritoneal Fld Mononuclear WBCs (%) 96.0 % Peritoneal Fld Polynuclear WBCs (%) 4.0 % Peritoneal Fluid Total Protein 1.2 g/dl Peritoneal Fluid Albumin 0.7 g/dl White Blood Count 9.71 4.8-10.8 K/uL Red Blood Count 3.17 4.2-5.4 M/uL Hemoglobin 9.2 12.0-16.0 g/dL Hematocrit 28.1 37-47 % Mean Corpuscular Volume 88.6 80-100 fL Mean Corpuscular Hemoglobin 29.0 25-34 pg Mean Corpuscular Hemoglobin Concent 32.7 32-36 g/dl Platelet Count 123 130-400 K/uL Mean Platelet Volume 10.8 7.4-10.4 fL Neutrophils (%) (Auto) 86.0 % Lymphocytes (%) (Auto) 8.3 % Monocytes (%) (Auto) 4.3 % Eosinophils (%) (Auto) 0.8 % Basophils (%) (Auto) 0.1 % Neutrophils # (Auto) 8.34 1.4-6.5 K/uL Lymphocytes # (Auto) 0.81 1.2-3.4 K/uL Monocytes # (Auto) 0.42 0.11-0.59 K/uL Eosinophils # (Auto) 0.08 0-0.5 K/uL Basophils # (Auto) 0.01 0-0.2 K/uL RDW Standard Deviation 63.2 36.4-46.3 fL RDW Coefficient of Variation 19.6 11.5-14.5 % Immature Granulocyte % (Auto) 0.5 % Immature Granulocyte # (Auto) 0.05 0.00-0.02 K/uL Poikilocytosis PRESENT Target Cells 1+ Echinocytes 1+ Acanthocytes 1+ Schistocytes 1+ Prothrombin Time 17.3 9.0-12.0 SECONDS Prothromb Time International Ratio 1.6 0.9-1.1 Sodium Level 138 136-145 mmol/L Potassium Level 3.7 3.5-5.1 mmol/L Chloride Level 100 98-107 mmol/L Carbon Dioxide Level 28 21-32 mmol/L Anion Gap 10.0 3-11 mmol/L Blood Urea Nitrogen 35 7-18 mg/dl Creatinine 3.30 0.60-1.20 mg/dl Est Creatinine Clear Calc Drug Dose 18.2 ml/min Estimated GFR () 16.9 Estimated GFR (Non- 14.5 BUN/Creatinine Ratio 10.5 10-20 Random Glucose 67 70-99 mg/dl Calcium Level 10.7 8.5-10.1 mg/dl Total Bilirubin 12.3 0.2-1 mg/dl Direct Bilirubin 9.9 0-0.2 mg/dl Aspartate Amino Transf (AST/SGOT) 72 15-37 U/L Alanine Aminotransferase (ALT/SGPT) 39 12-78 U/L Alkaline Phosphatase 560 45-117 U/L Ammonia < 10.0 11-32 umol/L Total Protein 4.9 6.4-8.2 gm/dl Albumin 1.9 3.4-5.0 gm/dl Hepatitis B Surface Antigen NEG NEG Hepatitis B Surface Antibody POS Microbiology Results 11/05/16 Acid Fast Stain, Received Pending 11/05/16 Mycobacterial Culture, Received Pending 11/05/16 Gram Stain, Received Pending 11/05/16 Bacterial Culture, Received Pending
[2016-11-05] MEDS ORDERED: DOXYCYCLINE IV 100 MG in DEXTROSE 5% 100ML 100 ML IV SCH (20:00)
[2016-11-05] MEDS: DOXYCYCLINE IV 100 MG in DEXTROSE 5% 100ML 100 ML IV SCH (21:20)
--- NOTE | 2016-11-05 21:24 | DIAGNOSTIC IMAGING REPORT ---
ABDOMEN LIMITED (US) HISTORY: 61 years-old Female TIPS eval history of prior TIPS placement. Concern for TIPS patency. COMPARISON: Right upper quadrant ultrasound 11/04/2016 TECHNIQUE: Multiple real-time sonographic images of the right upper quadrant TIPS shunt were obtained assessing grayscale appearance and color flow FINDINGS: Only the mid portion of the TIPS shunt was able to be visualized. The patient was unable to tolerate the exam secondary to condition. The visualized portions appear patent with phasic flow. IMPRESSION: Limited study with only the midportion of the TIPS shunt seen which is patent. The exam was then terminated secondary to patient unable to further tolerate the study. The above report was generated using voice recognition software. It may contain grammatical, syntax or spelling errors. Electronically signed by: Vikash Ayala M.D. 11/05/2016 9:23 PM Dictated Date/Time: 11/05/2016 9:20 PM
[2016-11-06] VITALS: O2SAT 98
[2016-11-06] MEDS: PIPERACILL/TAZOBAC IV 3.375 GM in DEXTROSE 5% 100ML IV SCH ×2 (02:13→14:32)
[2016-11-06 04:25] VITALS: BP 122/46; PULSE 89; TEMP 36.6; O2SAT 93
[2016-11-06 04:32] VITALS: O2SAT 98
[2016-11-06 06:35] LABS: HEMATOCRIT 28.4 % (37-47); MEAN CELL VOLUME 88.5 fL (80-100); MEAN CORPUSCULAR HEMOGLOBIN 29.3 pg (25-34); MEAN CORPUSCULAR HGB CONC 33.1 g/dl (32-36); RED BLOOD COUNT 3.21 M/uL (4.2-5.4); WHITE BLOOD COUNT 10.15 K/uL (4.8-10.8)
[2016-11-06 06:56] LABS: PLATELET COUNT 96 K/uL (130-400)
[2016-11-06 06:58] LABS: INR 1.7 (0.9-1.1); PROTHROMBIN TIME (PATIENT) 18.3 SECONDS (9.0-12.0)
[2016-11-06 07:14] LABS: BUN/CREATININE RATIO 7.5 (10-20); CREATININE 2.1 mg/dl (0.60-1.20); POTASSIUM 3.7 mmol/L (3.5-5.1); THYROID STIMULATING HORMONE 3.86 uIu/ml (0.300-4.500)
[2016-11-06] MEDS ORDERED: DEXTROSE 50% 50 ML SYR ONE ×2 (07:25→12:04)
[2016-11-06] MEDS: URSODIOL 300 MG CAP PO SCH (07:30)
[2016-11-06] MEDS ORDERED: GLUCAGON FOR INJ 1 MG VIAL ONE (07:33)
[2016-11-06 07:43] LABS: BASO % 0.1 %; BASO ABS # 0.01 K/uL (0-0.2); COMPLETE YES; EOS % 1.3 %; IG% 0.5 %; LYMPH % 12.6 %; LYMPH ABS # 1.28 K/uL (1.2-3.4); MONO % 6.5 %
[2016-11-06 08:34] VITALS: BP 135/80; PULSE 90; TEMP 36.5; O2SAT 95
--- NOTE | 2016-11-06 08:48 | Nephrology Progress Note ---
Nephrology Progress Note Date of Service: Nov 06, 2016. Subjective 61 yo female with liver failure, confusion, depression, volume overload and requiring dialysis to help with fluid removal. Objective Date Time Temp Pulse Resp B/P (MAP) Pulse Ox O2 Delivery O2 Flow Rate FiO2 11/06/16 08:34 36.5 90 18 135/80 (98) 95 Nasal Cannula 2.0 11/06/16 04:32 98 Nasal Cannula 2.0 11/06/16 04:25 36.6 89 18 122/46 (71) 93 Nasal Cannula 2.0 11/06/16 00:00 98 Nasal Cannula 2.0 11/05/16 23:53 36.5 89 20 108/51 (70) 97 Nasal Cannula 2.0 11/05/16 20:00 98 Nasal Cannula 2.0 11/05/16 18:50 36.7 86 22 125/67 (86) 98 Nasal Cannula 2.0 11/05/16 18:22 36.5 77 97/38 (57) 11/05/16 18:15 77 85/39 11/05/16 18:00 78 86/46 11/05/16 17:45 70 86/40 11/05/16 17:30 74 92/42 11/05/16 17:15 81 120/80 11/05/16 17:00 81 99/41 11/05/16 16:45 82 98/52 11/05/16 16:30 80 100/48 11/05/16 16:15 77 87/47 11/05/16 16:00 82 118/52 11/05/16 16:00 Nasal Cannula 2.0 11/05/16 15:45 80 104/53 11/05/16 15:30 81 114/54 11/05/16 15:16 36.6 82 139/54 (82) 11/05/16 12:00 Nasal Cannula 2.0 11/05/16 11:33 36.6 85 22 102/51 (68) 96 Nasal Cannula 2.0 Physical Exam: General-awake, confusion, tearful, jaundiced Eyes-+scleral icterus ENT-mmm Neck-supple Lungs-decreased breath sounds at bases Heart-rrr Abdomen-bs+ s/nt/nd Extremities-+2 edema Neuro-confusion Current Inpatient Medications Medications (Trade) Dose Ordered Sig/Michael Route Start Time Stop Time Status Last Admin Dose Admin Piperacillin Sod/ Tazobactam Sod (Consult) 1 ea UD PRN N/A 11/04/16 15:24 12/04/16 15:23 Docusate Sodium (coLACE CAP) 100 mg BID PO 11/04/16 21:00 12/04/16 20:59 11/05/16 21:45 100 MG Prednisone (PredniSONE TAB) 5 mg DAILY PO 11/05/16 09:00 12/05/16 08:59 11/05/16 09:40 5 MG Rifaximin (Xifaxan Tab) 550 mg BID PO 11/04/16 21:00 12/04/16 20:59 11/05/16 21:46 550 MG Senna/Docusate Sodium (Senokot S Tab) 1 tab DAILY PO 11/05/16 12:00 12/05/16 11:59 11/05/16 11:52 1 TAB Ursodiol (Actigall Cap) 600 mg BIDM PO 11/04/16 16:45 12/04/16 17:59 11/05/16 09:38 600 MG Miscellaneous Information (Order Awaiting Action) 1 ea QS N/A 11/04/16 16:00 12/04/16 15:59 Midodrine (Proamatine Tab) 5 mg TID@0900,1200,1800 PO 11/04/16 18:00 12/04/16 17:59 11/05/16 11:52 5 MG Miscellaneous Information (Order Awaiting Action) 1 ea QS N/A 11/04/16 16:00 12/04/16 15:59 Clindamycin HCl (Cleocin Cap) 300 mg TID PO 11/04/16 21:00 11/14/16 20:59 11/05/16 21:45 300 MG Pantoprazole Sodium 40 mg/ Syringe 10 ml @ 5 mls/min DAILY@11 IV 11/05/16 11:00 12/05/16 10:59 11/05/16 09:41 5 MLS/MIN Piperacillin Sod/ Tazobactam Sod 3.375 gm/Dextrose 115 ml @ 28.75 mls/ hr Q12H IV 11/05/16 02:00 11/15/16 01:59 11/06/16 02:13 28.75 MLS/HR Doxycycline Hyclate 100 mg/ Dextrose 110 ml @ 50 mls/hr Q12@0800,2000 IV 11/05/16 20:00 11/12/16 19:59 11/05/16 21:20 50 MLS/HR Epoetin Ken (Procrit Inj) 10,000 units 0900 IV. 11/06/16 09:00 11/06/16 14:00 Albumin Human (Albumin 25%) 12.5 gm 0900,1000 IV 11/06/16 09:00 11/06/16 12:00 Last 24 Hours Test 11/05/16 15:18 11/05/16 15:19 11/06/16 05:55 11/06/16 06:20 White Blood Count 9.71 K/uL 10.15 K/uL Red Blood Count 3.17 M/uL 3.21 M/uL Hemoglobin 9.2 g/dL 9.4 g/dL Hematocrit 28.1 % 28.4 % Mean Corpuscular Volume 88.6 fL 88.5 fL Mean Corpuscular Hemoglobin 29.0 pg 29.3 pg Mean Corpuscular Hemoglobin Concent 32.7 g/dl 33.1 g/dl Platelet Count 123 K/uL 96 K/uL Mean Platelet Volume 10.8 fL 11.0 fL Neutrophils (%) (Auto) 86.0 % 79.0 % Lymphocytes (%) (Auto) 8.3 % 12.6 % Monocytes (%) (Auto) 4.3 % 6.5 % Eosinophils (%) (Auto) 0.8 % 1.3 % Basophils (%) (Auto) 0.1 % 0.1 % Neutrophils # (Auto) 8.34 K/uL 8.02 K/uL Lymphocytes # (Auto) 0.81 K/uL 1.28 K/uL Monocytes # (Auto) 0.42 K/uL 0.66 K/uL Eosinophils # (Auto) 0.08 K/uL 0.13 K/uL Basophils # (Auto) 0.01 K/uL 0.01 K/uL RDW Standard Deviation 63.2 fL 62.3 fL RDW Coefficient of Variation 19.6 % 19.3 % Immature Granulocyte % (Auto) 0.5 % 0.5 % Immature Granulocyte # (Auto) 0.05 K/uL 0.05 K/uL Poikilocytosis PRESENT Target Cells 1+ Echinocytes 1+ Acanthocytes 1+ Schistocytes 1+ Prothrombin Time 17.3 SECONDS 18.3 SECONDS Prothromb Time International Ratio 1.6 1.7 Sodium Level 138 mmol/L 136 mmol/L Potassium Level 3.7 mmol/L 3.7 mmol/L Chloride Level 100 mmol/L 99 mmol/L Carbon Dioxide Level 28 mmol/L 25 mmol/L Anion Gap 10.0 mmol/L 12.0 mmol/L Blood Urea Nitrogen 35 mg/dl 16 mg/dl Creatinine 3.30 mg/dl 2.10 mg/dl Est Creatinine Clear Calc Drug Dose 18.2 ml/min 29.0 ml/min Estimated GFR () 16.9 29.1 Estimated GFR (Non- 14.5 25.1 BUN/Creatinine Ratio 10.5 7.5 Random Glucose 67 mg/dl 54 mg/dl Calcium Level 10.7 mg/dl 10.0 mg/dl Total Bilirubin 12.3 mg/dl 12.4 mg/dl Direct Bilirubin 9.9 mg/dl 10.2 mg/dl Aspartate Amino Transf (AST/SGOT) 72 U/L 76 U/L Alanine Aminotransferase (ALT/SGPT) 39 U/L 37 U/L Alkaline Phosphatase 560 U/L 529 U/L Ammonia < 10.0 umol/L < 10.0 umol/L Total Protein 4.9 gm/dl 5.5 gm/dl Albumin 1.9 gm/dl 2.5 gm/dl Hepatitis B Surface Antigen NEG Hepatitis B Surface Antibody POS Free Triiodothyronine 1.46 pg/ml Thyroid Stimulating Hormone (TSH) 3.860 uIu/ml Free Thyroxine 0.56 ng/dl Test 11/06/16 07:23 Bedside Glucose 49 mg/dl Assessment & Plan ESRD-removing fluid to help with volume overload and clearance of toxins. took off close to 2 liters yesterday and attempting to do the same today with the help of albumin on dialysis. pt confused and tearful. recommend transfer to [place] for liver transplant evaluation. pt has been slowly worsening over the past month.
[2016-11-06] MEDS: DOXYCYCLINE IV 100 MG in DEXTROSE 5% 100ML 100 ML IV SCH (08:49)
[2016-11-06] MEDS: DOCUSATE SODIUM/SENNA 50/8.6MG TAB PO SCH (09:00)
[2016-11-06] MEDS: MIDODRINE 2.5 MG TAB PO SCH ×2 (09:00→11:50)
[2016-11-06] MEDS ORDERED: EPOETIN ALFA 10,000 UNITS/ML VIAL IV. SCH (09:00)
[2016-11-06] MEDS: DOCUSATE SODIUM 100 MG CAP PO SCH (09:00)
[2016-11-06] MEDS: RIFAXIMIN TAB 550 MG TAB PO SCH (09:00)
[2016-11-06] MEDS: CLINDAMYCIN HCL 150 MG CAP PO SCH ×2 (09:00→14:00)
[2016-11-06] MEDS ORDERED: ALBUMIN HUMAN 25% 12.5 GM/50 ML VIAL IV SCH (09:00)
[2016-11-06] MEDS ORDERED: D5W AND NSS 1,000 ML IV SCH (09:30)
--- NOTE | 2016-11-06 10:46 | Progress Note ---
Internal Med Progress Note Date of Service: Nov 06, 2016. Provider Documentation: SUBJECTIVE: more awake today says she is ok afebrile hemodynamics stable ok for transfer to [place] OBJECTIVE: Vital Signs-as noted below Exam: General-alert and awake. some what confused ENT-normal hearing Neck-no neck masses supple Lungs-cta b/l no wheezing bibasilar crackles present Heart-s1 and s2 heard regular rate and rhythm no murmurs Abdomen-soft bowel sounds present non tender distended Extremities-no erythema b/l lower extremity edema present Neuro-alert and awake. moves extremities Lab data as noted below. ASSESSMENT & PLAN: 61 year old female with history of recent Right Shoulder Arthroplasty in 09/2016 , ESRD on HD, Primary Biliary Cirrhosis, Right Elbow Decubitus Ulcer with MRSA infection serina wound vac presenting with altered mental status. ALTERED MENTAL STATUS, LIKELY metabolic -METABOLIC ENCEPHALOPATHY FROM UNDERLYING UTI and also esrd and liver cirrhosis on iv zosyn hemodynamics stable s/p diagnostic paracentesis and it was unremarkable Tunnel cath site no obvious signs of infection await blood and urine cx - so far no growth Right elbow decubitus ulcer stage 4 , being followed by Dr. Yeung( wound care) and Dr. Jha( ID ) on Clindamycin PO as recent cultures showed MRSA continue same Cough will add doxycycline HYPERBILIRUBINEMIA PRIMARY BILIARY CIRRHOSIS On Prednisone, Rifaximin, Ursodiol, Ocaliva, Laxatives Bilirubin trending up GI discussed with transplant center at [place] on 11/05/16 and they recommended transfer but refused and want to wait one more day. Family and patient ok for transfer today to [place] 10/3016 Plan to transfer to [place] today RIGHT ELBOW DECUBITUS ULCER stage 4 management per #1 PROLONGED QT QT 549 holding Zoloft repeat EKG tofay QT496 ESRD ON HD dialysis as per nephro HYPOTENSION HISTORY On Midodrine CHRONIC ANEMIA Hg stable Will monitor DEPRESSION holding Zoloft for prolonged QT DVT PROPHYLAXIS has lower leg edema, SCDs contraindicated has thrombocytopenia, INR elevated, anticoagulation also contraindicated patient can barely stand per DNR as per H and P Disposition Transferring To [place] Vital Signs: Date Time Temp Pulse Resp B/P (MAP) Pulse Ox O2 Delivery O2 Flow Rate FiO2 11/06/16 08:34 36.5 90 18 135/80 (98) 95 Nasal Cannula 2.0 11/06/16 04:32 98 Nasal Cannula 2.0 11/06/16 04:25 36.6 89 18 122/46 (71) 93 Nasal Cannula 2.0 11/06/16 00:00 98 Nasal Cannula 2.0 11/05/16 23:53 36.5 89 20 108/51 (70) 97 Nasal Cannula 2.0 11/05/16 20:00 98 Nasal Cannula 2.0 11/05/16 18:50 36.7 86 22 125/67 (86) 98 Nasal Cannula 2.0 11/05/16 18:22 36.5 77 97/38 (57) 11/05/16 18:15 77 85/39 11/05/16 18:00 78 86/46 11/05/16 17:45 70 86/40 11/05/16 17:30 74 92/42 11/05/16 17:15 81 120/80 11/05/16 17:00 81 99/41 11/05/16 16:45 82 98/52 11/05/16 16:30 80 100/48 11/05/16 16:15 77 87/47 11/05/16 16:00 82 118/52 11/05/16 16:00 Nasal Cannula 2.0 11/05/16 15:45 80 104/53 11/05/16 15:30 81 114/54 11/05/16 15:16 36.6 82 139/54 (82) 11/05/16 12:00 Nasal Cannula 2.0 11/05/16 11:33 36.6 85 22 102/51 (68) 96 Nasal Cannula 2.0 Lab Results: Results Past 24 Hours Test 11/05/16 15:18 11/05/16 15:19 11/06/16 05:55 11/06/16 06:20 Range/Units White Blood Count 9.71 10.15 4.8-10.8 K/uL Red Blood Count 3.17 3.21 4.2-5.4 M/uL Hemoglobin 9.2 9.4 12.0-16.0 g/dL Hematocrit 28.1 28.4 37-47 % Mean Corpuscular Volume 88.6 88.5 80-100 fL Mean Corpuscular Hemoglobin 29.0 29.3 25-34 pg Mean Corpuscular Hemoglobin Concent 32.7 33.1 32-36 g/dl Platelet Count 123 96 130-400 K/uL Mean Platelet Volume 10.8 11.0 7.4-10.4 fL Neutrophils (%) (Auto) 86.0 79.0 % Lymphocytes (%) (Auto) 8.3 12.6 % Monocytes (%) (Auto) 4.3 6.5 % Eosinophils (%) (Auto) 0.8 1.3 % Basophils (%) (Auto) 0.1 0.1 % Neutrophils # (Auto) 8.34 8.02 1.4-6.5 K/uL Lymphocytes # (Auto) 0.81 1.28 1.2-3.4 K/uL Monocytes # (Auto) 0.42 0.66 0.11-0.59 K/uL Eosinophils # (Auto) 0.08 0.13 0-0.5 K/uL Basophils # (Auto) 0.01 0.01 0-0.2 K/uL RDW Standard Deviation 63.2 62.3 36.4-46.3 fL RDW Coefficient of Variation 19.6 19.3 11.5-14.5 % Immature Granulocyte % (Auto) 0.5 0.5 % Immature Granulocyte # (Auto) 0.05 0.05 0.00-0.02 K/uL Poikilocytosis PRESENT Target Cells 1+ Echinocytes 1+ Acanthocytes 1+ Schistocytes 1+ Prothrombin Time 17.3 18.3 9.0-12.0 SECONDS Prothromb Time International Ratio 1.6 1.7 0.9-1.1 Sodium Level 138 136 136-145 mmol/L Potassium Level 3.7 3.7 3.5-5.1 mmol/L Chloride Level 100 99 98-107 mmol/L Carbon Dioxide Level 28 25 21-32 mmol/L Anion Gap 10.0 12.0 3-11 mmol/L Blood Urea Nitrogen 35 16 7-18 mg/dl Creatinine 3.30 2.10 0.60-1.20 mg/dl Est Creatinine Clear Calc Drug Dose 18.2 29.0 ml/min Estimated GFR () 16.9 29.1 Estimated GFR (Non- 14.5 25.1 BUN/Creatinine Ratio 10.5 7.5 10-20 Random Glucose 67 54 70-99 mg/dl Calcium Level 10.7 10.0 8.5-10.1 mg/dl Total Bilirubin 12.3 12.4 0.2-1 mg/dl Direct Bilirubin 9.9 10.2 0-0.2 mg/dl Aspartate Amino Transf (AST/SGOT) 72 76 15-37 U/L Alanine Aminotransferase (ALT/SGPT) 39 37 12-78 U/L Alkaline Phosphatase 560 529 45-117 U/L Ammonia < 10.0 < 10.0 11-32 umol/L Total Protein 4.9 5.5 6.4-8.2 gm/dl Albumin 1.9 2.5 3.4-5.0 gm/dl Hepatitis B Surface Antigen NEG NEG Hepatitis B Surface Antibody POS Free Triiodothyronine 1.46 2.30-4.20 pg/ml Thyroid Stimulating Hormone (TSH) 3.860 0.300-4.500 uIu/ml Free Thyroxine 0.56 0.80-1.60 ng/dl Test 11/06/16 07:23 11/06/16 08:25 11/06/16 09:04 11/06/16 09:24 Range/Units Bedside Glucose 49 70 56 141 70-90 mg/dl
--- NOTE | 2016-11-06 10:50 | Discharge Instructions ---
Discharge Instructions Date of Service Nov 06, 2016. Admission Reason for Admission: Altered Mental Status Discharge Discharge Diagnosis / Problem: Encephalopathy metabolic, hepatic encephalopathy , uti? Discharge Goals Goal(s): Decrease discomfort, Improve function Activity Recommendations Activity Level: Assistance Required . Additional Information Patient informed of condition: Yes Advance Directives: Yes DNR: Yes Level of Care: Other ([facility]) Communicable Disease: No Prognosis: Other (transfering to acute care [facility]) Esposito Catheter: Yes Current Hospital Diet Patient's current hospital diet: Discharge Diet Recommended Diet: N/A (npo except meds) Pending Studies Studies pending at discharge: no Physician Orders On Transfer Special Precautions: FALL AND ASPIRATION PRECAUTIONS IV Therapy: IV ZOSYN IV DOXYCYCLINE IV D5NS@50ML/HR Vital Signs: EVERY 8HRS Laboratory Results Lipid Panel Test 10/09/16 05:24 Range/Units Triglycerides Level 0-150 mg/dl Medical Emergencies . Who to Call and When: Medical Emergencies: If at any time you feel your situation is an emergency, please call 911 immediately. . Non-Emergent Contact Non-Emergency issues call your: Primary Care Provider . . "Provider Documentation" section prepared by Shad Guerra. . Core Measure Problem Core Measures: None
--- NOTE | 2016-11-06 10:56 | Discharge Summary ---
Discharge Summary Date of Service Nov 06, 2016. Discharge Summary Admission Date: Nov 04, 2016 at 14:13 Discharge Date: Nov 06, 2016 Discharge Disposition: Acute care facility ([facility]) Principal Diagnosis: ENCEPHALOPATHY HEPATIC UTI? BILIARY CIRRHOSIS- MELD SCARE 35 Secondary Diagnoses/Problems: (1) Ascites Status: Chronic (2) Biliary cirrhosis Status: Chronic (3) Chronic pericarditis Status: Chronic (4) Chronic steroid use Permanent Comment: chronic pericarditis Status: Chronic (5) CKD (chronic kidney disease), stage III Status: Chronic (6) Esophageal varices Status: Chronic (7) History of paroxysmal atrial tachycardia Status: Chronic (8) History of PSVT (paroxysmal supraventricular tachycardia) Status: Chronic (9) Osteoarthritis Status: Chronic (10) Portal hypertension Status: Chronic Procedures: HEAD CT: 1. No acute intracranial pathology. CXR: 1. Cardiomegaly without acute cardiopulmonary process. 2. Unchanged right hemidiaphragm elevation with linear subsegmental bibasilar opacities suggesting atelectasis. US OF ABDOMEN: Small to moderate volume of ascites. PARACENTESIS: Ultrasound-guided diagnostic paracentesis with aspiration of 100 cc of ascites. Specimens were sent to the laboratory for further evaluation at the request of the referring physician. US OF ABDOMEN: Limited study with only the midportion of the TIPS shunt seen which is patent. The exam was then terminated secondary to patient unable to further tolerate the study. Consultations: GI NEPHROLOGY Medication Reconciliation Continued Medications: Bisacodyl (Bisac-Evac) 10 Mg Supp 10 MG ID DAILY PRN for Constipation Cholecalciferol (Vitamin D3) 1,000 Unit Cap 1000 UNITS PO QAM Clindamycin HCl (Clindamycin HCl) 300 Mg Cap 1 CAP PO TID for 30 Days, #90 CAP 3 Refills Darbepoetin (Aranesp Albumin Free) 60 Mcg/0.3 Ml Inj 0.3 ML SC WK inject 60 mcg sc once a week on tuesday Docusate Sodium (Docusate Sodium) 100 Mg Cap 1 CAP PO BID for 15 Days, #30 CAP Ferrous Gluconate (Ferrous Gluconate) 324 Mg Tab 324 MG PO TID, TAB Heparin Sodium (Porcine) (Heparin Sodium) 1,000 Unit/Ml Inj 1000 IV. 3XWK GIVE 1000 UNITS IV PUSH 3 TIMES A WEEK ON TUESDAY, TUESDAY, AND TUESDAY Heparin Sodium (Porcine) (Heparin Sodium) 1,000 Unit/Ml Inj 400 IV 3XWK GIVE 400 UNITS IV PUSH 3 TIMES A WEEK ON TUESDAY, TUESDAY, AND TUESDAY Heparin Sodium (Porcine) (Heparin Sodium) 1,000 Unit/Ml Inj 1 DOSE IV UD GIVE 400 - 1000 UNITS IV PUSH INDICATED Lorazepam (Ativan) 0.5 Mg Tab 0.5 MG PO TID PRN for Anxiety, TAB Midodrine Hcl (Midodrine Hcl) 5 Mg Tab 5 MG PO TID, #90 1 Refill MIDODRINE 5MG PO TID AT 0800, 1200 AND 1800. Multiple Vitamin (Daily-Zia) 1 Tab Tab 1 TAB PO QAM, #30 TAB 2 Refills Obeticholic Acid (Ocaliva) 5 Mg Tab 5 MG PO tuesday AM Ondansetron Hcl (Zofran) 4 Mg Tab 4 MG PO Q4 PRN for Nausea, TAB Pantoprazole (Pantoprazole Sodium) 40 Mg Tab 40 MG PO QAM, #30 TAB 2 Refills Prednisone (Prednisone) 5 Mg Tab 5 MG PO DAILY, #30 TAB 2 Refills Rifaximin (Xifaxan) 550 Mg Tab 550 MG PO BID, #60 TAB 2 Refills Senna/Docusate Sod (Senokot S) 1 Tab Tab 1 TAB PO qlunch, TAB Ursodiol (Ursodiol) 300 Mg Cap 600 MG PO BID Discontinued Medications: Hydromorphone Hcl (Dilaudid) 2 Mg Tab 2 MG PO Q4H PRN for Pain, TAB Magnesium Hydroxide (Milk of Magnesia) 30 Ml Susp 30 ML PO DAILY PRN for Constipation Polyethylene Glycol 3350 (Bulk (Polyethylene Glycol 3350) 1 Pow Pow 17 GM PO DAILY PRN for Constipation for 30 Days, #527 GM 11 Refills Sertraline (Zoloft) 50 Mg Tab 50 MG PO QAM, TAB Admission Information HPI (per Admitting provider): 61 year old female with history of recent Right Shoulder Arthroplasty in 09/2016 , ESRD on HD, Primary Biliary Cirrhosis, Right Elbow Decubitus Ulcer with MRSA infection serina wound vac presenting with altered mental status. Follows with Dr. Witt for PCP, [facility] for Nephro, Dr. Yeung and Dr. Jha for MRSA infection of infected R elbow decubitus ulcer presenting with altered mental status. History obtained from hospital records and from patient's spouse Patient was discharged last 10/21/16 from [facility] and was transitioned to [facility]. As per , patient was still very weak but was awake, alert, oriented x 3, and seemed to tolerated hemodialysis fine. For the past two days, patient was noted to be occasionally confused by her . He denies that the patient was reporting headache, dizziness, nausea/ vomiting, chest pain, dyspnea, abdominal pain. She does have occasional cough. ER records report patient was incontinent of urine and BMs. At the ER, patient was afebrile, with leukocytosis of 13k, and UA showing possible UTI. CT head was negative for acute process, Ammonia less than 10. On exam, patient's was at the bedside. She was drowsy but easily rousable, does not answer simple questions, and would drift back to sleep. She was able to say no when asked if she has pain, headache, chest pain, dyspnea , abdominal pain. No other symptoms. Physical Exam (per Admitting): General Appearance: + pertinent finding (appears weak, drowsy, but not in acute distress, able to say words, no accessory muscle use) Head: normocephalic, atraumatic Eyes: EOMI, + pertinent finding ((+) icterus) ENT: normal ENT inspection, hearing grossly normal, pharynx normal Neck: supple, no adenopathy, thyroid normal, no JVD Respiratory/Chest: chest non-tender, lungs clear, normal breath sounds, no respiratory distress, no accessory muscle use, + pertinent finding ((+) right perm cath in place: no signs of infection) Cardiovascular: regular rate, rhythm, no JVD, no murmur Abdomen/GI: normal bowel sounds, non tender, soft, + pertinent finding (non distended) Extremities/Musculoskelatal: + pertinent finding ((+) grade 2 lower leg edema, no erythema/warmth/swelling) 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 ALTERED MENTAL STATUS, LIKELY metabolic -METABOLIC ENCEPHALOPATHY FROM UNDERLYING UTI and also esrd and liver cirrhosis on iv zosyn hemodynamics stable s/p diagnostic paracentesis and it was unremarkable Tunnel cath site no obvious signs of infection await blood and urine cx - so far no growth Right elbow decubitus ulcer stage 4 , being followed by Dr. Yeung( wound care) and Dr. Jha( ID ) on Clindamycin PO as recent cultures showed MRSA continue same Cough will add doxycycline HYPERBILIRUBINEMIA PRIMARY BILIARY CIRRHOSIS On Prednisone, Rifaximin, Ursodiol, Ocaliva, Laxatives Bilirubin trending up GI [facility] 11[facility]16 and they recommended transfer but refused and want to wait one more day. Family and patient ok for transfer today to [facility] 10[facility]016 Plan to [facility] to [facility] today RIGHT ELBOW DECUBITUS ULCER stage 4 management per #1 PROLONGED QT QT 549 holding Zoloft repeat EKG tofay [id number] ESRD ON HD dialysis as per nephro HYPOTENSION HISTORY On Midodrine CHRONIC ANEMIA Hg stable Will monitor DEPRESSION holding Zoloft for prolonged QT DVT PROPHYLAXIS has lower leg edema, SCDs contraindicated has thrombocytopenia, INR elevated, anticoagulation also contraindicated patient can barely stand per DNR as per H and P Disposition Transferring To [facility] Total time spent on discharge = 50MINUTES This includes examination of the patient, discharge planning, medication reconciliation, and communication with other providers. Discharge Instructions Discharge Instructions Date of Service Nov 06, 2016. Admission Reason for Admission: Altered Mental Status Discharge Discharge Diagnosis / Problem: Encephalopathy metabolic, hepatic encephalopathy , uti? Discharge Goals Goal(s): Decrease discomfort, Improve function Activity Recommendations Activity Level: Assistance Required . Additional Information Patient informed of condition: Yes Advance Directives: Yes DNR: Yes Level of Care: Other (acute care facility- [facility]) Communicable Disease: No Prognosis: Other (transfering to acute care facility) Esposito Catheter: Yes Current Hospital Diet Patient's current hospital diet: Discharge Diet Recommended Diet: N/A (npo except meds) Pending Studies Studies pending at discharge: no Physician Orders On Transfer Special Precautions: FALL AND ASPIRATION PRECAUTIONS IV Therapy: IV ZOSYN IV DOXYCYCLINE IV D5NS@50ML/HR Vital Signs: EVERY 8HRS Laboratory Results Lipid Panel Test 10/09/16 05:24 Range/Units Triglycerides Level 0-150 mg/dl Medical Emergencies . Who to Call and When: Medical Emergencies: If at any time you feel your situation is an emergency, please call 911 immediately. . Non-Emergent Contact Non-Emergency issues call your: Primary Care Provider . . "Provider Documentation" section prepared by Shad Guerra. . Core Measure Problem Core Measures: None
[2016-11-06] MEDS: PANTOprazole INJ 40 MG in SYRINGE 0 ML IV SCH (11:54)
[2016-11-06 12:36] VITALS: BP 118/56; PULSE 84; TEMP 36.5; O2SAT 96
--- NOTE | 2016-11-06 13:38 | Progress Note ---
Progress Note Date of Service Nov 06, 2016. Progress Note Events noted - pt remains dorwsy. Underwent TIPS study, incomplete Plans for transfer noted. Pt is a poor transplant candidate, given marked deconditioning, ? actively infected sacral decub, and probable need for double organ transplant. Regardless, agree with plans for transfer for formal eval. Please cont HE therapy in the interim.
[2016-11-06 15:57] VITALS: BP 118/56; PULSE 84; TEMP 36.5; O2SAT 96
== END 2016-11-06 16:01 | disposition short-term general hospital (02) | DRG 689 ==
LOC: EDBD 08:38 → C.EDB 08:39 → C.2E 14:13 → ENRESERV 14:38
PROVIDERS: ADMIT Internal Medicine; ATTEND Internal Medicine
PROC: 0W9G3ZX Drainage of Peritoneal Cavity, Percutaneous Approach, Diagnostic (ICD-10-PCS; principal; 2016-11-05)
DX: N39.0 Urinary tract infection, site not specified (principal); N18.6 End stage renal disease; L89.014 Pressure ulcer of right elbow, stage 4; G92 Toxic encephalopathy; N17.0 Acute kidney failure with tubular necrosis; R17 Unspecified jaundice; K74.5 Biliary cirrhosis, unspecified; M54.30 Sciatica, unspecified side; B95.62 Methicillin resistant Staphylococcus aureus infection as the cause of diseases classified elsewhere; Z82.5 Family history of asthma and other chronic lower respiratory diseases; I45.81 Long QT syndrome; I95.9 Hypotension, unspecified; F32.9 Major depressive disorder, single episode, unspecified; D64.9 Anemia, unspecified; Z66 Do not resuscitate; R32 Unspecified urinary incontinence; R15.9 Full incontinence of feces; K72.90 Hepatic failure, unspecified without coma; Z83.3 Family history of diabetes mellitus; Z79.01 Long term (current) use of anticoagulants; Z99.2 Dependence on renal dialysis; Z96.611 Presence of right artificial shoulder joint; Z96.60 Presence of unspecified orthopedic joint implant; Z82.49 Family history of ischemic heart disease and other diseases of the circulatory system